=== PATIENT | male | born 1960 | race Caucasian/White ===

== ENCOUNTER 2022-10-10 14:58 | Outpatient (REF) | payer OTHER, SELFPAY ==
[2022-10-10 15:29] LABS: Microalbumin Urine Random <1.3 mg/dL (<=30.0)
== END 2022-10-10 14:59 | disposition home or self-care (01) ==
LOC: LAB 14:58
PROVIDERS: PCP Family Medicine; Visit Provider Family Medicine
DX: Z00.00 Encounter for general adult medical examination without abnormal findings (principal); E11.65 Type 2 diabetes mellitus with hyperglycemia
CPT/HCPCS: 82043

== ENCOUNTER 2022-10-11 07:06 | Outpatient (OUT) | payer OTHER, SELFPAY ==
[2022-10-11 07:28] LABS: Basophils Absolute Auto 0.1 10^3/uL (0.0-0.1); Basophils Percent Auto 1.1 % (0.2-2.0); Eosinophils Absolute Auto 0.2 10^3/uL (0.0-0.7); Eosinophils Percent Auto 2.8 % (0.9-7.0); Hematocrit 40.8 % (42.0-54.0); Hemoglobin 13.3 g/dL (14.0-18.0); Immature Granulocytes Abs Auto 0.01 10^3/uL (0.00-0.03); Immature Granulocytes Pct Auto 0.2 % (0.0-0.5); Lymphocytes Percent Auto 35.1 % (20.5-60.0); Mean Corpuscular HGB Conc 32.6 g/dL (29.9-35.2); Mean Corpuscular Hemoglobin 28.2 pg (25.9-34.0); Mean Corpuscular Volume 86.6 fL (80.0-94.0); Mean Platelet Volume 10.5 fL (9.5-13.5); Monocytes Absolute Auto 0.6 10^3/uL (0.3-0.8); Neutrophils Absolute Auto 2.8 10^3/uL (1.4-6.5); Neutrophils Percent Auto 49.8 % (43.0-75.0); Platelet Count 278 10^3/uL (150-450); Red Blood Count 4.71 10^6/uL (4.70-6.10); Red Cell Distribution Width 15.3 % (11.0-15.0); White Blood Count 5.6 10^3/uL (4.0-11.0)
[2022-10-11 08:43] LABS: Estimated Average Glucose 137 mg/dL; Glycohemoglobin A1C 6.4 % (4.5-6.2)
[2022-10-11 09:17] LABS: Alanine Aminotransferase 37 U/L (16-63); Albumin Globulin Ratio 1.1; Albumin Level 4.3 g/dL (3.4-5.0); Alkaline Phosphatase 77 U/L (46-116); Anion Gap 12.9; Aspartate Amino Transferase 25 U/L (15-37); BUN Creatinine Ratio 12.6; Bilirubin Direct 0.1 mg/dL (0.0-0.2); Bilirubin Total 0.3 mg/dL (0.2-1.0); Calcium 9.6 mg/dL (8.5-10.1); Chloride 103 mmol/L (98-107); Chol HDL Ratio 2.3; Cholesterol 129 mg/dL (<=200); Estimated GFR (African America >60 (>=60); Estimated GFR (Non-African Ame >60 (>=60); Glucose 89 mg/dL (74-106); HDL Cholesterol 55 mg/dL (40-60); LDL Cholesterol Calculated 65.2 mg/dL; Potassium 3.9 mmol/L (3.5-5.1); Sodium 140 mmol/L (136-145); Total Protein 8.3 g/dL (6.4-8.2); Triglycerides 44 mg/dL (<=150); VLDL CHOLESTEROL 8.8 mg/dL
== END 2022-10-11 07:07 | disposition home or self-care (01) ==
LOC: LAB 07:06
PROVIDERS: PCP Family Medicine; Visit Provider Family Medicine
DX: Z00.00 Encounter for general adult medical examination without abnormal findings (principal); Z12.5 Encounter for screening for malignant neoplasm of prostate; E11.65 Type 2 diabetes mellitus with hyperglycemia
CPT/HCPCS: 36415; 80048; 80061; 80076; 82043; 83036; 84443; 85025; G0103

== ENCOUNTER 2022-11-21 06:59 | Outpatient (OUT) | payer OTHER, SELFPAY ==
[2022-11-21 07:22] LABS: Basophils Absolute Auto 0.1 10^3/uL (0.0-0.1); Basophils Percent Auto 0.9 % (0.2-2.0); Eosinophils Absolute Auto 0.2 10^3/uL (0.0-0.7); Eosinophils Percent Auto 3.2 % (0.9-7.0); Hematocrit 39.2 % (42.0-54.0); Hemoglobin 12.8 g/dL (14.0-18.0); Immature Granulocytes Abs Auto 0.01 10^3/uL (0.00-0.03); Immature Granulocytes Pct Auto 0.2 % (0.0-0.5); Lymphocytes Absolute Auto 1.8 10^3/uL (1.2-3.8); Lymphocytes Percent Auto 34.1 % (20.5-60.0); Mean Corpuscular HGB Conc 32.7 g/dL (29.9-35.2); Mean Corpuscular Volume 88.9 fL (80.0-94.0); Mean Platelet Volume 10.8 fL (9.5-13.5); Monocytes Absolute Auto 0.6 10^3/uL (0.3-0.8); Neutrophils Absolute Auto 2.7 10^3/uL (1.4-6.5); Neutrophils Percent Auto 50.6 % (43.0-75.0); Platelet Count 284 10^3/uL (150-450); Red Blood Count 4.41 10^6/uL (4.70-6.10); White Blood Count 5.4 10^3/uL (4.0-11.0)
[2022-11-21 07:31] LABS: Erythrocyte Sedimentation Rate 15 mm/hr (<=20)
[2022-11-21 07:33] LABS: Alanine Aminotransferase 38 U/L (16-63); Albumin Globulin Ratio 1.1; Albumin Level 4.1 g/dL (3.4-5.0); Alkaline Phosphatase 95 U/L (46-116); Anion Gap 12.9; Aspartate Amino Transferase 22 U/L (15-37); BUN Creatinine Ratio 14.4; Bilirubin Total 0.3 mg/dL (0.2-1.0); Calcium 9.1 mg/dL (8.5-10.1); Carbon Dioxide 30.2 mmol/L (21.0-32.0); Chloride 101 mmol/L (98-107); Estimated GFR (African America >60 (>=60); Estimated GFR (Non-African Ame >60 (>=60); Globulin 3.8 g/dL; Glucose 136 mg/dL (74-106); Potassium 4.1 mmol/L (3.5-5.1); Sodium 140 mmol/L (136-145); Total Protein 7.9 g/dL (6.4-8.2)
== END 2022-11-21 07:00 | disposition home or self-care (01) ==
LOC: LAB 07:00
PROVIDERS: PCP Family Medicine; Visit Provider Internal Medicine Rheumatology
DX: L40.59 Other psoriatic arthropathy (principal); Z79.899 Other long term (current) drug therapy
CPT/HCPCS: 36415; 80053; 85025; 85652

== ENCOUNTER 2023-01-06 10:37 | Emergency (ER) | payer OTHER, SELFPAY ==
[2023-01-06 10:41] VITALS: BP 174/94; PULSE 75; RESP 16; TEMP 36.5; O2SAT 96; BMI 296.4
[2023-01-06] MEDS: ONDANSETRON 4 MG RAPDIS TABLET SL (11:16)
[2023-01-06] MEDS: HYDROMORPHONE HCL 2 MG/ML VIAL IM (11:16)
--- NOTE | 2023-01-06 11:32 | ED_ITS ---
HPI - Back Pain/Injury General Chief Complaint: Back Pain/Injury Stated Complaint: LOWER EXTREMITY PAIN BOTH LEGS Time Seen by Provider: 01/06/23 10:56 Source: patient Mode of arrival: walk-in Limitations: no limitations Related Data Home Medications Medication Instructions Recorded Confirmed folic acid 1 mg tablet 1 mg PO DAILY 01/06/23 01/06/23 glipizide 10 mg tablet 10 mg PO BID 01/06/23 01/06/23 leflunomide 20 mg tablet 20 mg PO DAILY 01/06/23 01/06/23 metformin 1,000 mg tablet 1,000 mg PO BID 01/06/23 01/06/23 methotrexate sodium 2.5 mg tablet 3 mg PO .every week 01/06/23 01/06/23 oxycodone-acetaminophen 5 mg-325 1 tab PO QID PRN pain 01/06/23 01/06/23 mg tablet pioglitazone 45 mg tablet 45 mg PO DAILY 01/06/23 01/06/23 Allergies Allergy/AdvReac Type Severity Reaction Status Date / Time No Known Drug Allergies Allergy Verified 01/06/23 10:45 PFSH PFSH Social History Smoking status: Never smoker Exam Constitutional Vital Signs, click to edit/add: Last Vital Signs Temp 97.7 F 01/06/23 10:41 Pulse 75 01/06/23 10:41 Resp 16 01/06/23 10:41 BP 174/94 H 01/06/23 10:41 Pulse Ox 96 01/06/23 10:41 O2 Del Method Room Air 01/06/23 10:41 Course Vital Signs Vital signs: Vital Signs Temperature 97.7 F 01/06/23 10:41 Pulse Rate 75 01/06/23 10:41 Respiratory Rate 16 01/06/23 10:41 Blood Pressure 174/94 H 01/06/23 10:41 Pulse Oximetry 96 01/06/23 10:41 Oxygen Delivery Method Room Air 01/06/23 10:41 Temperature 97.7 F 01/06/23 10:41 Pulse Rate 75 01/06/23 10:41 Respiratory Rate 16 01/06/23 10:41 Blood Pressure 174/94 H 01/06/23 10:41 Pulse Oximetry 96 01/06/23 10:41 Oxygen Delivery Method Room Air 01/06/23 10:41 Discharge Plan Discharge Chief Complaint: Back Pain/Injury Clinical Impression: Strain of lumbar region Patient Disposition: Home, Self-Care Time of Disposition Decision: 11:33 Prescriptions / Home Meds: No Action folic acid 1 mg tablet 1 mg PO DAILY glipizide 10 mg tablet 10 mg PO BID metformin 1,000 mg tablet 1,000 mg PO BID methotrexate sodium 2.5 mg tablet 3 mg PO .every week oxycodone-acetaminophen 5-325 mg tablet 1 tab PO QID PRN (Reason: pain) pioglitazone 45 mg tablet 45 mg PO DAILY leflunomide 20 mg tablet 20 mg PO DAILY Additional Instructions: [place]/Robaxin/alternate warm compresses/see pain management doctor Sunday Stand Alone Forms: Portal Instructions Referrals: Major Garcia MD [Primary Care Provider] - 1 week
[2023-01-06 11:52] LABS: Glucometer 178 mg/dL (74-106)
[2023-01-06 11:54] VITALS: BP 150/82; PULSE 74; RESP 16; O2SAT 95
[2023-01-06 12:32] VITALS: BP 160/82; PULSE 68; RESP 18; O2SAT 98
== END 2023-01-06 12:33 | disposition home or self-care (01) ==
PROVIDERS: Emergency Provider Emergency Medicine Emergency Medical Services; PCP Family Medicine
DX: S39.012A Strain of muscle, fascia and tendon of lower back, initial encounter (principal); Z79.899 Other long term (current) drug therapy; Z79.84 Long term (current) use of oral hypoglycemic drugs; X58.XXXA Exposure to other specified factors, initial encounter
CPT/HCPCS: 36415; 36416; 82948; 96372; 99284; J1170

== ENCOUNTER 2023-03-08 11:07 | Outpatient (OUT) | payer OTHER, SELFPAY ==
[2023-03-08 11:40] LABS: Estimated Average Glucose 189 mg/dL; Glycohemoglobin A1C 8.2 % (4.5-6.2)
== END 2023-03-08 11:08 | disposition home or self-care (01) ==
LOC: LAB 11:09
PROVIDERS: PCP Family Medicine; Visit Provider Family Medicine
DX: E11.65 Type 2 diabetes mellitus with hyperglycemia (principal)
CPT/HCPCS: 36415; 83036

== ENCOUNTER 2023-03-08 11:13 | Outpatient (OUT) | payer OTHER, SELFPAY ==
[2023-03-08 11:30] LABS: Basophils Percent Auto 0.7 % (0.2-2.0); Eosinophils Absolute Auto 0.1 10^3/uL (0.0-0.7); Eosinophils Percent Auto 2.1 % (0.9-7.0); Hematocrit 40.9 % (42.0-54.0); Hemoglobin 13.2 g/dL (14.0-18.0); Immature Granulocytes Abs Auto 0.02 10^3/uL (0.00-0.03); Immature Granulocytes Pct Auto 0.4 % (0.0-0.5); Lymphocytes Absolute Auto 1.5 10^3/uL (1.2-3.8); Lymphocytes Percent Auto 26.7 % (20.5-60.0); Mean Corpuscular HGB Conc 32.3 g/dL (29.9-35.2); Mean Corpuscular Hemoglobin 28.8 pg (25.9-34.0); Mean Corpuscular Volume 89.3 fL (80.0-94.0); Mean Platelet Volume 10.3 fL (9.5-13.5); Monocytes Absolute Auto 0.6 10^3/uL (0.3-0.8); Neutrophils Absolute Auto 3.4 10^3/uL (1.4-6.5); Neutrophils Percent Auto 60.1 % (43.0-75.0); Platelet Count 293 10^3/uL (150-450); Red Blood Count 4.58 10^6/uL (4.70-6.10); Red Cell Distribution Width 14.6 % (11.0-15.0); White Blood Count 5.7 10^3/uL (4.0-11.0)
[2023-03-08 11:48] LABS: Erythrocyte Sedimentation Rate 33 mm/hr (<=20)
[2023-03-08 11:53] LABS: Alanine Aminotransferase 73 U/L (16-63); Albumin Globulin Ratio 0.9; Albumin Level 3.6 g/dL (3.4-5.0); Alkaline Phosphatase 78 U/L (46-116); Anion Gap 8.9; Aspartate Amino Transferase 27 U/L (15-37); BUN Creatinine Ratio 15.4; Bilirubin Total 0.4 mg/dL (0.2-1.0); Calcium 9.1 mg/dL (8.5-10.1); Carbon Dioxide 30.7 mmol/L (21.0-32.0); Chloride 103 mmol/L (98-107); Estimated GFR (African America >60 (>=60); Estimated GFR (Non-African Ame >60 (>=60); Globulin 3.8 g/dL; Glucose 167 mg/dL (74-106); Potassium 3.6 mmol/L (3.5-5.1); Sodium 139 mmol/L (136-145); Total Protein 7.4 g/dL (6.4-8.2)
== END 2023-03-08 11:14 | disposition home or self-care (01) ==
PROVIDERS: PCP Family Medicine; Visit Provider Internal Medicine Rheumatology
DX: E11.65 Type 2 diabetes mellitus with hyperglycemia (principal); L40.59 Other psoriatic arthropathy; Z79.899 Other long term (current) drug therapy
CPT/HCPCS: 36415; 80053; 83036; 85025; 85652

== ENCOUNTER 2023-07-12 09:23 | Outpatient (OUT) | payer OTHER, SELFPAY ==
[2023-07-12 09:52] LABS: Basophils Absolute Auto 0.1 10^3/uL (0.0-0.1); Basophils Percent Auto 0.7 % (0.2-2.0); Eosinophils Absolute Auto 0.2 10^3/uL (0.0-0.7); Eosinophils Percent Auto 2.8 % (0.9-7.0); Hematocrit 41.5 % (42.0-54.0); Hemoglobin 12.8 g/dL (14.0-18.0); Immature Granulocytes Abs Auto 0.02 10^3/uL (0.00-0.03); Immature Granulocytes Pct Auto 0.3 % (0.0-0.5); Lymphocytes Absolute Auto 1.9 10^3/uL (1.2-3.8); Lymphocytes Percent Auto 28.2 % (20.5-60.0); Mean Corpuscular HGB Conc 30.8 g/dL (29.9-35.2); Mean Corpuscular Hemoglobin 27.2 pg (25.9-34.0); Mean Corpuscular Volume 88.3 fL (80.0-94.0); Mean Platelet Volume 10.3 fL (9.5-13.5); Monocytes Absolute Auto 0.6 10^3/uL (0.3-0.8); Monocytes Percent Auto 9.2 % (1.7-12.0); Neutrophils Percent Auto 58.8 % (43.0-75.0); Platelet Count 345 10^3/uL (150-450); Red Cell Distribution Width 14.4 % (11.0-15.0); White Blood Count 6.9 10^3/uL (4.0-11.0)
[2023-07-12 10:02] LABS: Erythrocyte Sedimentation Rate 60 mm/hr (<=20)
[2023-07-12 10:26] LABS: Alanine Aminotransferase 35 U/L (16-63); Albumin Globulin Ratio 0.8; Albumin Level 3.5 g/dL (3.4-5.0); Alkaline Phosphatase 90 U/L (46-116); Anion Gap 13.8; Aspartate Amino Transferase 23 U/L (15-37); BUN Creatinine Ratio 13.4; Bilirubin Total 0.2 mg/dL (0.2-1.0); Calcium 9.6 mg/dL (8.5-10.1); Chloride 104 mmol/L (98-107); Estimated GFR (African America >60 (>=60); Estimated GFR (Non-African Ame >60 (>=60); Globulin 4.2 g/dL; Glucose 136 mg/dL (74-106); Potassium 3.8 mmol/L (3.5-5.1); Sodium 140 mmol/L (136-145); Total Protein 7.7 g/dL (6.4-8.2)
== END 2023-07-12 09:24 | disposition home or self-care (01) ==
LOC: LAB 09:24
PROVIDERS: PCP Family Medicine; Visit Provider Internal Medicine Rheumatology
DX: L40.59 Other psoriatic arthropathy (principal); Z79.899 Other long term (current) drug therapy
CPT/HCPCS: 36415; 80053; 85025; 85652

== ENCOUNTER 2023-10-18 07:01 | Outpatient (OUT) | payer OTHER, SELFPAY ==
[2023-10-18 07:35] LABS: Basophils Absolute Auto 0.1 10^3/uL (0.0-0.1); Eosinophils Absolute Auto 0.2 10^3/uL (0.0-0.7); Eosinophils Percent Auto 2.9 % (0.9-7.0); Hematocrit 39.5 % (42.0-54.0); Hemoglobin 12.5 g/dL (14.0-18.0); Immature Granulocytes Abs Auto 0.02 10^3/uL (0.00-0.03); Immature Granulocytes Pct Auto 0.3 % (0.0-0.5); Lymphocytes Absolute Auto 1.6 10^3/uL (1.2-3.8); Lymphocytes Percent Auto 22.6 % (20.5-60.0); Mean Corpuscular HGB Conc 31.6 g/dL (29.9-35.2); Mean Corpuscular Hemoglobin 26.5 pg (25.9-34.0); Mean Corpuscular Volume 83.9 fL (80.0-94.0); Mean Platelet Volume 10.5 fL (9.5-13.5); Monocytes Absolute Auto 0.8 10^3/uL (0.3-0.8); Monocytes Percent Auto 10.6 % (1.7-12.0); Neutrophils Absolute Auto 4.6 10^3/uL (1.4-6.5); Neutrophils Percent Auto 62.6 % (43.0-75.0); Platelet Count 288 10^3/uL (150-450); Red Blood Count 4.71 10^6/uL (4.70-6.10); Red Cell Distribution Width 16.7 % (11.0-15.0); White Blood Count 7.3 10^3/uL (4.0-11.0)
[2023-10-18 08:45] LABS: Estimated Average Glucose 134 mg/dL; Glycohemoglobin A1C 6.3 % (4.5-6.2)
[2023-10-18 10:24] LABS: Alanine Aminotransferase 37 U/L (16-63); Albumin Level 3.8 g/dL (3.4-5.0); Alkaline Phosphatase 89 U/L (46-116); Anion Gap 13.2; Aspartate Amino Transferase 26 U/L (15-37); BUN Creatinine Ratio 14.5; Bilirubin Direct 0.1 mg/dL (0.0-0.2); Bilirubin Total 0.4 mg/dL (0.2-1.0); Calcium 9.2 mg/dL (8.5-10.1); Carbon Dioxide 26.2 mmol/L (21.0-32.0); Chloride 103 mmol/L (98-107); Chol HDL Ratio 2.1; Cholesterol 114 mg/dL (<=200); Estimated GFR (African America >60 (>=60); Estimated GFR (Non-African Ame >60 (>=60); Globulin 3.9 g/dL; Glucose 90 mg/dL (74-106); HDL Cholesterol 54 mg/dL (40-60); LDL Cholesterol Calculated 51.6 mg/dL; Potassium 3.4 mmol/L (3.5-5.1); Sodium 139 mmol/L (136-145); Thyroid Stimulating Hormone 0.931 uIU/mL (0.358-3.740); Total Protein 7.7 g/dL (6.4-8.2); Triglycerides 42 mg/dL (<=150); VLDL CHOLESTEROL 8.4 mg/dL
[2023-10-18 10:44] LABS: Microalbumin Urine Random <1.3 mg/dL (<=30.0)
[2023-10-18 10:55] LABS: Prostate Specific Antigen Scrn 0.57 ng/mL (<=4.00)
== END 2023-10-18 07:02 | disposition home or self-care (01) ==
LOC: LAB 07:02
PROVIDERS: PCP Family Medicine; Visit Provider Family Medicine
DX: Z79.899 Other long term (current) drug therapy (principal); E66.9 Obesity, unspecified; E11.65 Type 2 diabetes mellitus with hyperglycemia; Z12.5 Encounter for screening for malignant neoplasm of prostate
CPT/HCPCS: 36415; 80048; 80061; 80076; 82043; 83036; 84443; 85025; G0103

== ENCOUNTER 2023-11-14 07:02 | Outpatient (OUT) | payer OTHER, SELFPAY ==
--- OUTSIDE RECORDS SUMMARY | 2023-11-14 07:07 | XMS_ITS | CCD ---
Author Organization [facility] CliniSynh Care Team Providers Care Applied Exercise Physiologist Name Role Phone VALERIE, DR RANDALL Attending Unavailable NADERER, DR MAJOR Martinez Primary Care Unavailable PADILLA, DR RANDALL Consulting Unavailable PADILLA, DR RANDALL Admitting Unavailable PADILLA, DR RANDALL Attending Unavailable NADERER, DR MAJOR Martinez Primary Care Unavailable PADILLA, DR RANDALL Admitting Unavailable PADILLA, DR RANDALL Consulting Unavailable PADILLA, DR RANDALL Consulting Unavailable PADILLA, DR RANDALL Admitting Unavailable NADERER, DR MAJOR Martinez Primary Care Unavailable PADILLA, DR RANDALL Attending Unavailable NADERER, DR MAJOR Martinez Admitting Unavailable NADERER, DR MAJOR Martinez Attending Unavailable NADERER, DR MAJOR Martinez Consulting Unavailable NADERER, DR MAJOR Martinez Primary Care Unavailable PADILLA, DR RANDALL Attending Unavailable PADILLA, DR RANDALL Consulting Unavailable PADILLA, DR RANDALL Admitting Unavailable NADERER, DR MAJOR Martinez Primary Care Unavailable NADERER, DR MAJOR Martinez Admitting Unavailable NADERER, DR MAJOR Martinez Attending Unavailable NADERER, DR MAJOR Martinez Consulting Unavailable NADERER, DR MAJOR Martinez Primary Care Unavailable Abel Sandoval Unavailable MD Major Stevens Primary Care Provider WAI Barney Sully Attending Provider [phone] MD Abel Sandoval Attending Provider MD Major Stevens Primary Care Provider [facility] [employer] DEVELOPER Sully Attending Provider [phone] MD Abel Sandoval Attending Provider Abel Sandoval Admitting Unavailable Abel Sandoval Attending Unavailable Major Stevens Primary Care Unavailable Barney, Sully Admitting Unavailable Barney, Sully Attending Unavailable Major Stevens Primary Care Unavailable Lori, Abel S Admitting Unavailable Lori, Abel S Attending Unavailable Major Stevens Primary Care Unavailable Lori, Abel S Admitting Unavailable Lori, Abel S Attending Unavailable Major Stevens Primary Care Unavailable CatNatty Unavailable Unavailable Primary Care Provider Unavailabl e Unavailable Primary Care Provider Unavailabl Major Corrales MD Primary Care Provider PHYSICIAN, NONE Attending Unavailable PHYSICIAN, NONE Primary Care Unavailable PHYSICIAN, NONE Attending Unavailable PHYSICIAN, NONE Primary Care Unavailable KASLIWAL, ISHA K Admitting Unavailable KASLIWAL, ISHA K Attending Unavailable NADERERMAJOR Primary Care Unavailabl e KASLIWAL, IHSA K Referring Unavailable NADERER, MAJOR AVERY Primary Care Unavailabl e ALMADHYANI, LAMA Referring Unavailable NADERER, MAJOR AVERY Primary Care Unavailabl e KASLIWAL, ISHA K Attending Unavailable KASLIWAL, ISHA K Referring Unavailable KASLIWAL, ISHA K Attending Unavailable NADEREMAJOR Baldwin Primary Care Unavailabl e KASLIWAL, ISHA K Referring Unavailable NADERER, MAJOR AVERY Primary Care Unavailabl e KASLIWAL, ISHA K Attending Unavailable NADERERMAJOR Primary Care Unavailabl e KASLIWAL, ISHA K Referring Unavailable NADERER, MAJOR AVERY Primary Care Unavailabl e NADERER, MAJOR Attending Unavailable NADERER, MAJOR Attending Unavailable BLACKSTONIVETTE Attending Unavailable KASLIWAL, ISHA Referring Unavailable BRINK, BRITNEY Attending Unavailable KASLIWAL, ISHA Referring Unavailable BRINK, BRITNEY Attending Unavailable KASLIWAL, ISHA Referring Unavailable BLACKSTON, IVETTE T Attending Unavailable KASLIWAL, ISHA Referring Unavailable NADERER, MAJOR Attending Unavailable BRINK, BRITNEY Attending Unavailable KASLIWAL, ISHA Referring Unavailable BLACKSTON, IVETTE T Attending Unavailable KASLIWAL, ISHA Referring Unavailable BRINK, BRITNEY Attending Unavailable KASLIWAL, ISHA Referring Unavailable BRINK, BRITNEY Attending Unavailable KASLIWAL, ISHA Referring Unavailable BLACKSTON, IVETTE T Attending Unavailable KASLIWAL, ISHA Referring Unavailable NADERER, MAJOR Attending Unavailable Medications Current Medications Medication Drug Class(es) Dates Sig (Normalized) Sig (Original) acetaminophen 325 mg oral tablet (6 sources) Start: 06-06-2023 acetaminophen (Tylenol) 325 mg tablet Indications: Postoperative pain Take 2 tablets (650 mg) by mouth every 6 hours. Take every 6 hours scheduled while having pain then take only as needed for Mild pain 06/06/2023 Active Start: 06-01-2023 take 1 tablet by gina th every six hours 650 mg, oral, Every 6 hours, First dose on Sun06/01/23 at 2000, Phase II/On Unit If ordered PRN for pain, nurse is permitted to administer this medication for higher pain scores based on patient preference? Yes End: 06-06-2023 take 2 tablets by mouth twice daily acetaminophen (Tylenol) 500 mg tablet Take 2 tablets (1,000 mg) by mouth 2 times a day. Patient takes #2 tablets 2-3 times a day as needed 0 06/06/2023 Discontinued (Stop Taking at Discharge) benzocaine 15 mg / menthol 3.6 mg oral lozenge (1 source) Standardized Chemical Allergen Start: 06-01-2023 1 lozenge, Mouth/Throat, Every 2 hour PRN, sore throat, Starting on Sun06/01/23 at 1932, Phase II/On Unit bisacodyl 10 mg rectal suppository (1 source) Stimulant Laxative Start: 06-04-2023 bisacodyl ( Dulcolax) suppository 10 mg chlorhexidine gluconate 40 mg/ml medicated liquid soap (5 sources) Start: 05-17-2023 End: 05-22-2023 chlorhexidine (Hibiclens) 4 % external liquid Indications: Lumbar stenosis with neurogenic claudication , Surgery, elective , Preop testing , Preoperative general physical examination Apply topically once daily as needed for wound care for up to 5 days. 473 mL 0 05/17/2023 05/22/2023 Active Start: 05-17-2023 End: 06-06-2023 chlorhexidine (Peridex) 0.12 % solution Indications: Lumbar stenosis with neurogenic claudication , Surgery, elective , Preop testing , Preoperative general physical examination Use 15 mL in the mouth or throat if needed for wound care for up to 14 days. 120 mL 0 05/17/2023 06/06/2023 Discontinued (Stop Taking at Discharge) cholecalciferol 0.025 mg oral capsule (2 sources) Vitamin D Start: 11-12-2018 take 1 tablet by mouth once daily Cholecalciferol (Vitamin D3) (Vitamin D3) 1,000 unit Capsule Active 1 TAB PO Daily November 11, 2018 11:00pm cyclobenzaprine hydrochloride 10 mg oral tablet (3 sources) Muscle Relaxant Start: 06-01-2023 End: 06-13-2023 take 1 tablet by mouth three times daily as needed for muscle spasms cyclobenzaprine (Flexeril) 10 mg tablet Indications: Postoperative pain Take 1 tablet (10 mg) by mouth 3 times a day as needed for muscle spasms for up to 7 days. 21 tablet 06/06/2023 Active docusate sodium 50 mg / sennosides, mcfp 8.6 mg oral tablet (2 sources) Start: 06-01-2023 End: 06-13-2023 take 2 tablets by mouth twice daily sennosides-docusate sodium (Marycruz-Colace) 8.6-50 mg tablet Indications: Constipation due to pain medication Take 2 tablets by mouth 2 times a day for 7 days. Take while taking pain medication oxycodone to prevent constipation 28 tablet 0 06/06/2023 06/13/2023 Active empagliflozin 25 mg oral tablet (7 sources) Sodium-Glucose Cotransporter 2 Inhibitor take 1 tablet by mouth once daily empagliflozin (Jardiance) 25 mg Take 1 tablet (25 mg) by mouth once daily. Active folic acid 1 mg oral tablet (7 sources) take 1 tablet by mouth once daily folic acid (Folvite) 1 mg tablet Take 1 tablet (1 mg) by mouth once daily. Active gabapentin 300 mg oral capsule (15 sources) Anti-epileptic Agent Start: 03-28-2023 take 1 capsule by mouth every twenty-four hours Gabapentin 300 MG 1 capsule Orally Once a day for 30 days Mar, Active Start: 11-12-2018 End: 05-31-2023 take 1 tablet by mouth three times daily Gabapentin Active 1 TAB PO Three times daily November 11, 2018 11:00pm glipiZIDE 10 mg oral tablet (16 sources) Sulfonylurea Start: 11-12-2018 take 1 tablet by mouth once daily Glipizide Active 1 TAB PO Daily November 11, 2018 11:00pm take 1 tablet by gina twice daily before mealtime glipiZIDE (Glucotrol) 10 mg tablet Take 1 tablet (10 mg) by mouth 2 times a day before meals. Active glucagon (rdna) 1 mg injection (2 sources) Antihypoglycemic Agent Start: 06-01-2023 1 mg, i ntramuscular, Every 15 min PRN, low blood sugar - see comments, For blood glucose less than or equal to 70 mg/dL and no IV access, Starting on Sun06/01/23 at 1932, Phase II/On Unit Give until blood glucose is 100 mg/dL or greater. If patient DOES NOT HAVE secure IV access & patient is unconscious, NPO or is unable to eat or drink. 50 ml glucose 500 mg/ml prefilled syringe (4 sources) Start: 06-01-2023 25 g, intraven ous, Every 15 min PRN, For blood glucose less than or equal to 40 mg/dL, Starting on Sun06/01/23 at 1932, Phase II/On Unit May repeat until blood glucose level reaches 100 mg/dL or greater. Push 2 - 3 mL/minute if patient has secure IV access. Start: 06-01-2023 0.3 g/kg/hr 95 .4 kg (286.2 mL/hr), intravenous, Once as needed, For blood glucose less than 70 mg/dL after 30 minutes of intervention. Discontinue once blood glucose reaches 100 mg/dL., Starting on Sun06/01/23 at 1932, For 1 dose, Phase II/On Unit Discontinue once blood glucose reaches 100 mg/dL. 1 ml heparin sodium, porcine 5000 unt/ml injection (1 source) Unfractionated Heparin, Anti-coagulant Start: 06-02-2023 inject 5000 [IU] by subcutaneous injection every eight hours 5,000 Units, subcutaneous, Every 8 hours, First dose on Sun06/02/23 at 0000, Phase II/On Unit ibuprofen 800 mg oral tablet (9 sources) Nonsteroidal Anti-inflammatory Drug Start: 11-12-2018 take 1 tablet by mouth three times daily Ibuprofen Active 1 TAB PO Three times daily November 11, 2018 11:00pm insulin lispro 100 unt/ml injectable solution (1 source) Insulin Analog Start: 06-02-2023 0-5 Units, subcutaneous, 3 times daily with meals, First dose on Sun06/02/23 at 0800, Phase II/On Unit Insulin Lispro Corrective Scale #1 Hypogl ycemia protocol Call LIP unit(s) if Blood Glucose is between 0 - 70 mg/dL 0 unit(s) if Blood glucose is between 71-150 1 unit(s) if Blood glucose is between 151-200 2 unit(s) if Blood glucose is between 201-250 3 unit(s) if Blood glucose is between 251-300 4 unit(s) if Blood glucose is between 301-350 5 unit(s) if Blood glucose is between 351-400 &nbsp ;Notify provider unit(s) if Blood Glucose is greater than 400 mg/dL leflunomide 20 mg oral tablet (17 sources) Antirheumatic Agent Start: 06-15-2023 take 1 tablet by mouth once daily leflunomide (Arava) 20 mg tablet Indications: Psoriatic arthritis (Multi) Take 1 tablet (20 mg) by mouth once daily. DO NOT RESUME UNTIL 06/15/2023 Do not start before June 15, 2023. 06/15/2023 Active Start: 06-15-2023 take 1 tablet by gina th once daily leflunomide (Arava) 20 mg tablet Indications: Psoriatic arthritis (CMS/HCC) Take 1 tablet (20 mg) by mouth once daily. DO NOT RESUME UNTIL 06/15/2023 Do not start before June 15, 2023. 0 06/15/2023 Active Start: 11-12-2018 End: 06-06-2023 take 1 tablet by mouth once daily Leflunomide Active 1 TAB PO Daily November 11, 2018 11:00pm lidocaine 0.04 mg/mg medicated patch (2 sources) Antiarrhythmic, Amide Local Anesthetic Start: 06-07-2023 End: 06-14-2023 apply 1 dose transdermal route every twelve hours at bedtime lidocaine 4 % patch Indications: Postoperative pain Place 1 patch over 12 hours on the skin once daily for 7 days. Apply 1 patch to low back Daily for 12 hours, on in morning, off at bedtime. Do Not Place Directly Over Incision Do not start before June 07, 2023. 7 patch 0 06/07/2023 06/14/2023 Active Start: 06-01-2023 apply 1 dose transde rmal route once daily 1 patch, transdermal, Administer over 12 Hours, Daily, First dose on Sun06/01/23 at 2000, Phase II/On Unit Apply to low back. Patch will remain on for 12 hours, then removed for [address] patch directly over any surgical incisions or wounds. metFORMIN hydrochloride 1000 mg oral tablet (16 sources) Biguanide Start: 11-12-2018 take 1 tablet by mouth once daily Metformin Active 1 TAB PO Daily November 11, 2018 11:00pm take 1 tablet by mouth twice giulia ly metFORMIN (Glucophage) 1,000 mg tablet Take 1 tablet (1,000 mg) by mouth 2 times daily (morning and late afternoon). Active methotrexate 2.5 mg oral tablet (19 sources) Folate Analog Metabolic Inhibitor Start: 06-15-2023 take 3 tablets by mouth every week methotrexate (Trexall) 2.5 mg tablet Indications: Psoriatic arthritis (Multi) Take 3 tablets (7.5 mg total) by mouth 1 (one) time per week. Follow directions carefully, and ask to explain any part you do not understand. Take exactly as directed. Takes on Sunday. DO NOT RESUME UNTIL 06/15/2023 06/15/2023 Active Start: 06-15-2023 take 3 tablets by mo uth every week methotrexate (Trexall) 2.5 mg tablet Indications: Psoriatic arthritis (CMS/HCC) Take 3 tablets (7.5 mg total) by mouth 1 (one) time per week. Follow directions carefully, and ask to explain any part you do not understand. Take exactly as directed. Takes on Sunday. DO NOT RESUME UNTIL 06/15/2023 0 06/15/2023 Active Start: 11-12-2018 End: 05-22-2019 take 2.5 mg by mouth once daily Methotrexate Sodium Ac tive 2.5 MG PO Daily May 22, 2019 12:00am End: 06-06-2023 take 3 tablets by mouth every week methotrexate (Trexall) 2.5 mg tablet Take 3 tablets (7.5 mg total) by mouth 1 (one) time per week. Follow directions carefully, and ask to explain any part you do not understand. Take exactly as directed. Takes on sunday 0 06/06/2023 Discontinued (Reorder) methotrexate (Tr exall) 2.5 mg tablet Take by mouth 1 (one) time per week. Follow directions carefully, and ask to explain any part you do not understand. Take exactly as directed. 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 immediately Start: 06-01-2023 0.2 mg, intrav enous, Every 5 min PRN, respiratory depression, Starting on Sun06/01/23 at 1932, Phase II/On Unit If respiratory rate is less than 8 breaths/minute or patient is difficult to arouse stop any narcotics and contact physician. Administer slow IV push. Repeat as ordered until patient's respiratory rate is greater than 12 breaths/minute. Ondansetron (1 source) Serotonin-3 Receptor Antagonist Start: 06-01-2023 take 1 tablet by mouth every eight hours as needed ondansetron (Zofran) tablet 4 mg oxygen (O2) therapy (2 sources) Start: 06-01-2023 inhalation, Continuous PRN - O2/gases, other, Starting on Sun06/01/23 at 1932, Phase II/On Unit Titrate supplemental oxygen to maintain SpO2 greater than or equal to 92 Device: Nasal Cannula Rate in liters per minute: 2 LPM Keep O2 Sat Above: 92% Start: 06-01-2023 End: 06-01-2023 oxygen (O2) therapy pioglitazone 30 mg oral tablet (16 sources) Peroxisome Proliferator Receptor alpha Agonist, Peroxisome Proliferator Receptor gamma Agonist, Thiazolidinedione Start: 11-12-2018 take 1 tablet by mouth once daily Pioglitazone Active 1 TAB PO Daily November 11, 2018 11:00pm take 1 tablet by mouth once jaime y pioglitazone (Actos) 45 mg tablet Take 1 tablet (45 mg) by mouth once daily. Active polyethylene glycol 3350 44849 mg powder for oral solution (2 sources) Osmotic Laxative Start: 06-01-2023 End: 06-04-2023 polyethylene glycol (Glycolax, Miralax) packet 17 g Promethazine (1 source) Phenothiazine Start: 06-01-2023 take 1 tablet by mouth every six hours as needed promethazine (Phenergan) tablet 25 mg 1000 ml sodium chloride 9 mg/ml injection (1 source) Start: 06-01-2023 take 100 mL intravenously every hour 100 mL/hr, intravenous, Continuous, Starting on Sun06/01/23 at 2000, Phase II/On Unit Convert IV to saline lock when taking oral fluids. Vitamin D3 (7 sources) Vitamin D3 Activ e Completed/Discontinued Medications Medication Drug Class(es) Dates Sig (Normalized) Sig (Original) calcium chloride 0.0014 meq/ml / potassium chloride 0.004 meq/ml / sodium chloride 0.103 meq/ml / sodium lactate 0.028 meq/ml injectable solution (1 source) Start: 06-01-2023 End: 06-01-2023 lactated Ringer's infusion 1 ml HYDROmorphone hydrochloride 1 mg/ml cartridge (1 source) Opioid Agonist Start: 06-01-2023 End: 06-01-2023 HYDROmorphone (Dilaudid) injection 0.5 mg hydromorphone [employer] 0.5 mg/mL in NS opioid naive (1 source) Start: 06-01-2023 End: 06-02-2023 Nurse Loading Dose: Not Ordered Patient Bolus Dose: 0.2 mg Lockout Interval: 10 Minutes Basal Rate: 0 mg/hr One Hour Dose Limit: 1.2 mg intravenous, Continuous, Starting on Sun06/01/23 at 2000, Phase II/On Unit 1 ml ketorolac tromethamine 30 mg/ml injection (1 source) Nonsteroidal Anti-inflammatory Drug, Cyclooxygenase Inhibitor Start: 06-02-2023 End: 06-04-2023 30 mg, intravenous, Every 8 hours scheduled, First dose on Sun06/02/23 at 0600, For 3 days Do not administer within 6 hours of other NSAIDs (such as ibuprofen or naproxen). oxyCODONE hydrochloride 5 mg oral tablet (3 sources) Opioid Agonist Start: 06-02-2023 End: 06-05-2023 take 1 tablet by mouth every four hours as needed oxyCODONE (Roxicodone) immediate release tablet 10 mg Start: 06-02-2023 End: 06-13-2023 take 1 tablet by mouth every six hours for pain oxyCODONE (Roxicodone) 5 mg immediate release tablet Indications: Postoperative pain Take 1 tablet (5 mg) by mouth every 6 hours if needed for moderate pain (4 - 6) or severe pain (7 - 10) for up to 7 days. ICD 10: G89.18 28 tablet 0 06/06/2023 06/13/2023 Active microencapsulated potassium chloride 20 meq extended release oral tablet (3 sources) Start: 06-06-2023 End: 06-06-2023 potassium chloride CR (Klor-Con M20) ER tablet 40 mEq Start: 06-02-2023 End: 06-02-2023 potassium chloride CR (Klor- Con M20) ER tablet 40 mEq Start: 06-01-2023 End: 06-01-2023 potassium chloride 20 mEq in 100 mL IV premix tiZANidine 4 mg oral tablet (9 sources) Central alpha-2 Adrenergic Agonist Start: 11-12-2018 End: 02-07-2023 take 4 mg by mouth once daily at bedtime Tizanidine Discontinued 4 MG PO Daily at bedtime November 11, 2018 11:00pm February 07, 2023 8:47am take 1 tablet by gina th every eight hours tiZANidine HCl 4 MG 1 tablet as needed O rally Three times a day Not-Taking/PRN Triamcinolone (7 sources) Corticosteroid Start: 12-02-2019 Kenalog -40 mg Nov, 40 mg Problems Active Problems Problem Classification Problem Date Documented Da te Episodic/Chronic Diabetes mellitus with complications (20 sources) Type 2 diabetes mellitus with hyperglycemia; 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: [Diabetic - poor control] Onset: 09-15-2021 Chronic Diabetes mellitus without complication (7 sources) Type 2 diabetes mellitus; 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: [Type 2 diabetes mellitus without complications] Chronic Essential hypertension (13 sources) Essential hypertension; 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: [Essential (primary) hypertension] Onset: 03-07-2023 04-30-2023 Chronic Other acquired deformities (2 sources) Scoliosis of lumbar spine; 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: [Other forms of scoliosis, lumbar region] Chronic Other acquired deformities (1 source) Other forms of scoliosis, lumbar region Chronic Other acquired deformities (8 sources) Acquired deformity of spine; 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: [Other specified deforming dorsopathies, site unspecified] Onset: 04-24-2023 04-27-2023 Chronic Other acquired deformities (13 sources) Other secondary scoliosis, thoracolumbar region; 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: [Scoliosis associated with other conditions] Onset: 04-24-2023 04-27-2023 Chronic Other acquired deformities (4 sources) Other specified deforming dorsopathies, site unspecified; 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: [Other specified deforming dorsopathies, site unspecified] Onset: 04-24-2023 Chronic Other aftercare (1 source) 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 treater 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; 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: [OTH LONGTERM CURRENT DRUG THERAPY] Onset: 07-22-2022 Episodic Other aftercare (1 source) Surgical follow-up; 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: [Encounter for follow-up examination after completed treatment for conditions other than malignant neoplasm] 08-14-2023 Episodic Other bone disease and musculoskeletal deformities (7 sources) Other specified disorders of bone, other site; 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: [Iliac crest bone pain] Episodic Other connective tissue disease (1 source) History of lumbar fusion; 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: [Arthrodesis status] 08-14-2023 Episodic Other gastrointestinal disorders (1 source) Drug-induced constipation; 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: [Drug induced constipation] 06-06-2023 Episodic Other inflammatory condition of skin (4 sources) Other psoriatic arthropathy; 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: [OTHER PSORIATIC ARTHROPATHY] Onset: 07-19-2022 Chronic Other inflammatory condition of skin (20 sources) Psoriatic arthritis; 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: [Arthropathic psoriasis, unspecified] Onset: 07-19-2022 04-30-2023 Chronic Other inflammatory condition of skin (6 sources) Flexural psoriasis; 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] Onset: 04-16-2023 04-30-2023 Chronic Other inflammatory condition of skin (6 sources) Psoriasis; 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: [Psoriasis, unspecified] Onset: 04-30-2023 04-30-2023 Chronic Other inflammatory condition of skin (2 sources) Arthropathic psoriasis, unspecified; 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: [Arthropathic psoriasis, unspecified (Multi)] Onset: 06-01-2023 Chronic Other nervous system disorders (13 sources) Chronic pain; 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: [Other chronic pain] Onset: 04-30-2023 04-30-2023 Chronic Other nervous system disorders (2 sources) Other chronic pain Chronic Other nervous system disorders (1 source) Other chronic pain; 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: [Other chronic pain] Onset: 01-17-2023 Chronic Other nervous system disorders (1 source) Postoperative pain ; 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: [Other acute postprocedural pain] 06-06-2023 Episodic Other nutritional; endocrine; and metabolic disorders (7 sources) Cholesterol level - finding; 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: [Lipoprotein deficiency] Chronic Other nutritional; endocrine; and metabolic disorders (6 sources) Lipoprotein deficiency disorder; 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: [Lipoprotein deficiency] Onset: 04-30-2023 04-30-2023 Chronic Residual codes; unclassified (2 sources) Patient encounter status; 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: [Encounter for procedure for purposes other than remedying health state, unspecified] 05-18-2023 Episodic Spondylosis; intervertebral disc disorders; other back problems (20 sources) Lumbosacral spondylosis; 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: [Spondylosis without myelopathy or radiculopathy, lumbosacral region] Onset: 03-07-2023 Chronic Unclassified (1 source) Pain in right hip; 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: [Pain in right hip] Onset: 10-16-2022 Unclassified (7 sources) Patient has spine surgery Onset: 04-24-2023 04-24-2023 Past or Other Problems Problem Classification Problem Date Documented Da te Episodic/Chronic Cancer of prostate (6 sources) Malignant tumor of prostate; 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: [Malignant neoplasm of prostate] Onset: 09-15-2021 Resolved: 04-30-2023 04-30-2023 Chronic Other aftercare (6 sources) Long-term current use of drug therapy; 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: [Other snf (current) drug therapy] Onset: 07-22-2022 04-30-2023 Episodic Other aftercare (2 sources) Encounter for follow-up examination after completed treatment for conditions other than malignant neoplasm; 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: [Encounter for follow-up examination after completed treatment for conditions other than malignant neoplasm] Onset: 07-10-2023 Episodic Other bone disease and musculoskeletal deformities (6 sources) Bone pain; 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: [Other specified disorders of bone, other site] Onset: 04-30-2023 04-30-2023 Episodic Other connective tissue disease (13 sources) Muscle pain; 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: [Myalgia, other site] Onset: 04-30-2023 04-30-2023 Episodic Other connective tissue disease (6 sources) Pain in left lower limb; 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: [Pain in left leg] Onset: 01-06-2023 04-30-2023 Episodic Other connective tissue disease (2 sources) Arthrodesis status; 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: [Arthrodesis status] Onset: 07-10-2023 Episodic Other gastrointestinal disorders (2 sources) Drug induced constipation; 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: [Drug induced constipation] Onset: 06-01-2023 Episodic Other nervous system disorders (2 sources) Other acute postprocedural pain; 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: [Other acute postprocedural pain] Onset: 06-01-2023 Episodic Other non-traumatic joint disorders (19 sources) Pain in right hip joint; 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: [Pain in right hip] Onset: 10-16-2022 04-30-2023 Episodic Other screening for suspected conditions (not mental disorders or infectious disease) (1 source) Encounter for screening for malignant neoplasm of prostate; 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: [ENC SCREEN MALIG NEOPLASM PROSTATE] Onset: 09-15-2021 Episodic Residual codes; unclassified (7 sources) H/O Spinal surgery; 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: [Other specified postprocedural states] Onset: 04-24-2023 04-30-2023 Episodic Residual codes; unclassified (2 sources) Encounter for procedure for purposes other than remedying health state, unspecified; 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: [Encounter for procedure for purposes other than remedying health state, unspecified] Onset: 05-17-2023 Episodic Residual codes; unclassified (2 sources) Other specified postprocedural states; 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: [Other specified postprocedural states] Onset: 07-10-2023 Episodic Spondylosis; intervertebral disc disorders; other back problems (20 sources) Lumbar radiculopathy; 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: [Radiculopathy, lumbar region] Onset: 10-16-2022 Episodic Results Test Name Value Interpretation Reference Range Facil ity XR SCOLIOSIS 2 VIEW (NON EOS )on 08-14-2023 XR SCOLIOSIS 2 VIEW (NON EOS) Interpreted By: Carmenza Garcia, STUDY: XR SCOLIOSIS 2 VIEW (NON EOS) INDICATION: Signs/Symptoms:Lumb ar Stenosis for assesment of alignment. COMPARISON: 07/10/2023 ACCESSION NUMBER(S): [id number] ORDERING CLINICIAN: ISHA VALENTINO FINDINGS: There is mild levoscoliosis centered in the upper thoracic region. There is mild dextroscoliosis centered at the thoracolumbar junction. There is mild levoscoliosis centered in the mid lumbar region. Vertebral body heights are well preserved. Posterior spinal Instrumented fusion changes from L2 to pelvis with interbody fusion changes at L4-5 and L5-S1. Hardware is intact without perihardware fractures or lucencies. Xeco-nh-lvjfsrip spondylosis noted at T12-L1 and L1-2. Chronic appearing compression deformity is noted of T12 vertebral body with mild anterior height loss. There is positive sagittal balance. No significant coronal balance. IMPRESSION: Postsurgical changes as described above without hardware complication. Mild S shaped thoracolumbar scoliosis. Positive sagittal balance MACRO: None. Signed by: Carmenza Garcia 08/16/2023 5:16 PM Dictation workstation: [id number] [facility] Comment on above: Order Comment: Pleas e do both AP and lateral views. ( Total of 2 views ) Please have the patient standing without assistance of any kind and with knees in neutral position. The patient should stand relaxed, bend their elbows, and place their fists on the ipsilateral clavicles. XR SCOLIOSIS 2 VIEW (NON EOS )on 07-10-2023 XR SCOLIOSIS 2 VIEW (NON EOS) Interpreted By: Austen Bass, STUDY: XR SCOLIOSIS 2 VIEW (NON EOS); ; 07/10/2023 11:36 am INDICATION: Signs/Symptoms:post op. COMPARISON: 04/24/2023 ACCESSION NUMBER(S): [id number] ORDERING CLINICIAN: ISHA VALENTINO FINDINGS: Two views of the whole spine. Postsurgical changes status post posterior fusion from L2 at the bilateral iliac bones. L4-L5 and L5-S1 discectomies. Laminectomies from L3-L5. No hardware complication. Mild lumbar levocurvature, improved from prior. No acute fractures. Moderate lower thoracic spondylosis. Mild bilateral hip osteoarthrosis. IMPRESSION: Postsurgical changes, as above. No hardware complication. Lumbar levocurvature is decreased from the prior. MACRO: None Signed by: Austen Bass 07/11/2023 3:27 PM Dictation workstation: [id number] [facility] Comment on above: Order Comment: Pleas e do both AP and lateral views. ( Total of 2 views ) Please have the patient standing without assistance of any kind and with knees in neutral position. The patient should stand relaxed, bend their elbows, and place their fists on the ipsilateral clavicles. CBC panel Auto (Bld)on 06-05 Erythrocyte distribution width (RBC) [Ratio] 13.5 % 11.5 - 14.5 % [facility] Hematocrit (Bld) [Volume fraction] 33.1 % Low 41.0 - 52.0 % [facility] Hemoglobin (Bld) [Mass/Vol] 11.0 g/dL Low 13.5 - 17.5 g/dL [facility] Interpretation and review of laboratory results Abnormal [facility] MCH (RBC) [Entitic mass] 29.3 pg 26.0 - 34.0 pg [facility] MCHC (RBC) [Mass/Vol] 33.2 g/dL 32.0 - 36.0 g/dL [facility] MCV (RBC) [Entitic vol] 88 fL 80 - 100 fL [facility] Nucleated RBC/100 WBC (Bld) [Ratio] 0.0 % [facility] Platelets (Bld) [#/Vol] 323 10*3/uL [facility] RBC (Bld) [#/Vol] 3.75 10*6/uL Low [facility] WBC (Bld) [#/Vol] 6.3 10*3/uL [facility] Erythrocyte distribution width (RBC) [Ratio] 13.5 % Normal 11.5-14.5 [facility] Comment on above: Performed By: #### 5 2969-3 #### PACHECO Ferraro ([id number]) [facility] ([facility]) [address] [place] [address]8555 Hematocrit (Bld) [Volume fraction] 33.1 % Low 41.0-52.0 [facility] Comment on above: Performed By: #### 5 2969-3 #### PACHECO Ferraro ([id number]) [facility] ([facility]) [address] [place] [address] 36042 Hemoglobin (Bld) [Mass/Vol] 11.0 g/dL Low 13.5-17.5 [facility] Comment on above: Performed By: #### 5 2969-3 #### PACHECO Ferraro ([id number]) [facility] ([facility]) [address] [place] [address] MCH (RBC) [Entitic mass] 29.3 pg Normal 26.0-34.0 [facility] Comment on above: Performed By: #### 5 2969-3 #### PACHECO Ferraro ([id number]) [facility] ([facility]) [id number] [place] [address]28[address] MCHC (RBC) [Mass/Vol] 33.2 g/dL Normal 32.0-36.0 [facility] Comment on above: Performed By: #### 5 2969-3 #### PACHECO Ferarro ([id number]) [facility] ([facility]) [address] [place] [address] 15380 MCV (RBC) [Entitic vol] 88 fL Normal 80-100 [facility] Comment on above: Performed By: #### 5 2969-3 #### PACHECO Ferraro ([id number]) [facility] ([facility]) [address] [place] [address] 88390 Nucleated RBC/100 WBC (Bld) [Ratio] 0.0 /100 WBCs Normal 0.0-0.0 [facility] Comment on above: Performed By: #### 5 2969-3 #### PACHECO Ferraro ([id number]) [facility] ([facility]) [address] [place] [address] 31735 Platelets (Bld) [#/Vol] 323 x10*3/uL Normal 150-450 [facility] Comment on above: Performed By: #### 5 2969-3 #### PACHECO Ferraro ([id number]) [facility] ([facility]) [address] [place] [address] 89180 RBC (Bld) [#/Vol] 3.75 x10*6/uL Low 4.50-5.90 [facility] Comment on above: Performed By: #### 5 2969-3 #### PACHECO Ferraro ([id number]) [facility] ([facility]) [id number] [place] [address]06 WBC (Bld) [#/Vol] 6.3 x10*3/uL Normal 4.4-11.3 [facility] Comment on above: Performed By: #### 5 2969-3 #### PACHECO Ferraro ([id number]) [facility] ([facility]) [address] [place] [address] 15467 Glucose Test strip manual (B ld) [Mass/Vol]on 06-06-2023 Glucose [Mass/Vol] 207 mg/dL High 74 - 99 mg/dL [facility] Interpretation and review of laboratory results Abnormal [facility] Glucose [Mass/Vol] 207 mg/dL High 74-99 [facility] Comment on above: Performed By: #### 5 2969-3 #### PACHECO Ferraro ([id number]) [facility] ([facility]) [address] [place] [address] 65357 Glucose [Mass/Vol] 159 mg/dL High 74 - 99 mg/dL [facility] Interpretation and review of laboratory results Abnormal [facility] Glucose [Mass/Vol] 159 mg/dL High 74-99 [facility] Comment on above: Performed By: #### 3 4532-2 #### PACHECO Ferraro ([id number]) [facility] ([facility]) [address] [place] [address] 94649 Renal function 2000 panelon 06-06-2023 Albumin BCP dye [Mass/Vol] 3.6 g/dL 3.4 - 5.0 g/dL [facility] Anion gap [Moles/Vol] 13 mmol/L 10 - 20 mmol/L [facility] Calcium [Mass/Vol] 9.3 mg/dL 8.6 - 10. 6 mg/dL [facility] Chloride [Moles/Vol] 100 mmol/L 98 - 107 mmol/L [facility] CO2 [Moles/Vol] 26 mmol/L 21 - 32 mmol/L [facility] Creatinine [Mass/Vol] 0.60 mg/dL 0.50 - 1.30 mg/dL [facility] eGFR - PINF [facility] Comment on above: Calculations of german mated GFR are performed using the 2020 CKD-EPI Study Refit equation without the race variable for the IDMS-Traceable creatinine methods. https://jasn.asnjournals.org/content//ASN.90579 80296 Glucose [Mass/Vol] 236 mg/dL High 74 - 99 mg/dL [facility] Interpretation and review of laboratory results Abnormal [facility] Phosphate [Mass/Vol] 2.4 mg/dL Low 2.5 - 4.9 mg/dL [facility] Comment on above: The performance gregory acteristics of phosphorus testing in heparinized plasma have been validated by the individual laboratory site where testing is performed. Testing on heparinized plasma is not approved by the FDA; however, such approval is not necessary. Potassium [Moles/Vol] 3.3 mmol/L Low 3.5 - 5.3 mmol/L [facility] Sodium [Moles/Vol] 136 mmol/L 136 - 145 mmol/L [facility] Urea nitrogen [Mass/Vol] 10 mg/dL 6 - 23 mg/dL [facility] Albumin BCP dye [Mass/Vol] 3.6 g/dL Normal 3.4-5.0 [facility] Comment on above: Performed By: #### 5 2969-3 #### PACHECO Ferraro ([id number]) [facility] ([facility]) [id number] [place] [address]104 Anion gap [Moles/Vol] 13 mmol/L Normal 10-20 [facility] Comment on above: Performed By: #### 5 2969-3 #### PACHECO Ferraro ([id number]) [facility] ([facility]) [id number] [place] [address] 93939 Calcium [Mass/Vol] 9.3 mg/dL Normal 8.6-10.6 [facility] Comment on above: Performed By: #### 5 2969-3 #### PACHECO Ferraro ([id number]) [facility] ([facility]) [address] [place] [address] Chloride [Moles/Vol] 100 mmol/L Normal 98-107 [facility] Comment on above: Performed By: #### 5 2969-3 #### PACHECO Ferraro ([id number]) [facility] ([facility]) [address] [place] [address] CO2 [Moles/Vol] 26 mmol/L Normal 21-32 [facility] Comment on above: Performed By: #### 5 2969-3 #### PACHECO Ferraro ([id number]) [facility] ([facility]) [address] [place] [address] Creatinine [Mass/Vol] 0.60 mg/dL Normal 0.50-1.30 [facility] Comment on above: Performed By: #### 5 2969-3 #### PACHECO Ferraro ([id number]) [facility] ([facility]) [address] [place] [address] GFR/1.73 sq M.predicted MDRD (S/P/Bld) [Vol rate/Area] mL/min/{1.73_m2} Normal >60 [facility] Comment on above: Result Comment: Calc ulations of estimated GFR are performed using the 2020 CKD-EPI Study Refit equation without the race variable for the IDMS-Traceable creatinine methods. https://jasn.asnjournals.org/content//ASN.53196 87178 Performed By: #### 5 2969-3 #### PACHECO Ferraro ([id number]) [facility] ([facility]) [address] [place] [address] Glucose [Mass/Vol] 236 mg/dL High 74-99 [facility] Comment on above: Performed By: #### 5 2969-3 #### PACHECO Ferraro ([id number]) [facility] ([facility]) [address] [place] [address] Phosphate [Mass/Vol] 2.4 mg/dL Low 2.5-4.9 [facility] Comment on above: Result Comment: The performance characteristics of phosphorus testing in heparinized plasma have been validated by the individual laboratory site where testing is performed. Testing on heparinized plasma is not approved by the FDA; however, such approval is not necessary. Performed By: #### 5 2969-3 #### PACHECO Ferraro ([id number]) [facility] ([facility]) [address] [place] [address] 97929 Potassium [Moles/Vol] 3.3 mmol/L Low 3.5-5.3 [facility] Comment on above: Performed By: #### 5 2969-3 #### PACHECO Ferraro ([id number]) [facility] ([facility]) [address] [place] [address] 55275 Sodium [Moles/Vol] 136 mmol/L Normal 136-145 [facility] Comment on above: Performed By: #### 5 2969-3 #### PACHECO Ferraro ([id number]) [facility] ([facility]) [address] [place] [address] 35879 Urea nitrogen [Mass/Vol] 10 mg/dL Normal 6-23 [facility] Comment on above: Performed By: #### 5 2969-3 #### PACHECO Ferraro ([id number]) [facility] ([facility]) [address] [place] [address] 68964 Glucose Test strip manual (B ld) [Mass/Vol]on 06-05-2023 Glucose [Mass/Vol] 226 mg/dL High 74 - 99 mg/dL [facility] Interpretation and review of laboratory results Abnormal [facility] Glucose [Mass/Vol] 226 mg/dL High 74-99 [facility] Comment on above: Performed By: #### 3 4532-2 #### PACHECO Ferraro ([id number]) [facility] ([facility]) [id number] [place] [address] Glucose [Mass/Vol] 160 mg/dL High 74 - 99 mg/dL [facility] Interpretation and review of laboratory results Abnormal [facility] Glucose [Mass/Vol] 160 mg/dL High 74-99 [facility] Comment on above: Performed By: #### 3 4532-2 #### PACHECO Ferraro ([id number]) [facility] ([facility]) [address] [place] [address] 93514 Glucose [Mass/Vol] 192 mg/dL High 74 - 99 mg/dL [facility] Interpretation and review of laboratory results Abnormal [facility] Glucose [Mass/Vol] 192 mg/dL High 74-99 [facility] Comment on above: Performed By: #### 3 4532-2 #### PACHECO Ferraro ([id number]) [facility] ([facility]) [id number] [place] [address]606 Glucose [Mass/Vol] 163 mg/dL High 74 - 99 mg/dL [facility] Interpretation and review of laboratory results Abnormal [facility] Glucose [Mass/Vol] 163 mg/dL High 74-99 [facility] Comment on above: Performed By: #### 3 4532-2 #### PACHECO Ferraro ([id number]) [facility] ([facility]) [id number] [place] [address] 76796 Basic metabolic 2000 panelon 06-04-2023 Anion gap [Moles/Vol] 12 mmol/L 10 - 20 mmol/L [facility] Calcium [Mass/Vol] 8.4 mg/dL Low 8.6 - 10. 6 mg/dL [facility] Chloride [Moles/Vol] 102 mmol/L 98 - 107 mmol/L [facility] CO2 [Moles/Vol] 28 mmol/L 21 - 32 mmol/L [facility] Creatinine [Mass/Vol] 0.56 mg/dL 0.50 - 1.30 mg/dL [facility] eGFR - PINF [facility] Comment on above: Calculations of german mated GFR are performed using the 2020 CKD-EPI Study Refit equation without the race variable for the IDMS-Traceable creatinine methods. https://jasn.asnjournals.org/content//ASN.45241 07505 Glucose [Mass/Vol] 235 mg/dL High 74 - 99 mg/dL [facility] Interpretation and review of laboratory results Abnormal [facility] Potassium [Moles/Vol] 3.4 mmol/L Low 3.5 - 5.3 mmol/L [facility] Sodium [Moles/Vol] 139 mmol/L 136 - 145 mmol/L [facility] Urea nitrogen [Mass/Vol] 14 mg/dL 6 - 23 mg/dL [facility] Anion gap [Moles/Vol] 12 mmol/L Normal 10-20 [facility] Comment on above: Performed By: #### 3 4532-2 #### PACHECO Ferraro ([id number]) [facility] ([facility]) [address] [place] [address] Calcium [Mass/Vol] 8.4 mg/dL Low 8.6-10.6 [facility] Comment on above: Performed By: #### 3 2-2 #### PACHECO Ferraro ([id number]) [facility] ([facility]) [address] [place] [address] Chloride [Moles/Vol] 102 mmol/L Normal 98-107 [facility] Comment on above: Performed By: #### 3 4532-2 #### PACHECO Ferraro ([id number]) [facility] ([facility]) [address] [place] [address] CO2 [Moles/Vol] 28 mmol/L Normal 21-32 [facility] Comment on above: Performed By: #### 3 4532-2 #### PACHECO Ferraro ([id number]) [facility] ([facility]) [address] [place] [address] Creatinine [Mass/Vol] 0.56 mg/dL Normal 0.50-1.30 [facility] Comment on above: Performed By: #### 3 453-2 #### PACHECO Ferraro ([id number]) [facility] ([facility]) [address] [place] [address] GFR/1.73 sq M.predicted MDRD (S/P/Bld) [Vol rate/Area] mL/min/{1.73_m2} Normal >60 [facility] Comment on above: Result Comment: Calc ulations of estimated GFR are performed using the 2020 CKD-EPI Study Refit equation without the race variable for the IDMS-Traceable creatinine methods. https://jasn.asnjournals.org/content/early//ASN.48591 56086 Performed By: #### 3 4532-2 #### PACHECO Ferraro ([id number]) [facility] ([facility]) [address] [place] [address] Glucose [Mass/Vol] 235 mg/dL High 74-99 [facility] Comment on above: Performed By: #### 3 453-2 #### PACHECO Ferraro ([id number]) [facility] ([facility]) [address] [place] [address] Potassium [Moles/Vol] 3.4 mmol/L Low 3.5-5.3 [facility] Comment on above: Performed By: #### 3 4532-2 #### PACHECO Ferraro ([id number]) [facility] ([facility]) [address] [place] [address] Sodium [Moles/Vol] 139 mmol/L Normal 136-145 [facility] Comment on above: Performed By: #### 3 4532-2 #### PACHECO Ferraro ([id number]) [facility] ([facility]) [address] [place] [address] Urea nitrogen [Mass/Vol] 14 mg/dL Normal 6-23 [facility] Comment on above: Performed By: #### 3 4532-2 #### PACHECO VILLARREAL L ([id number]) [facility] ([facility]) [address] [place] [address] CBC panel Auto (Bld)on 06-03 Erythrocyte distribution width (RBC) [Ratio] 13.6 % 11.5 - 14.5 % [facility] Hematocrit (Bld) [Volume fraction] 30.9 % Low 41.0 - 52.0 % [facility] Hemoglobin (Bld) [Mass/Vol] 9.7 g/dL Low 13.5 - 17.5 g/dL [facility] Interpretation and review of laboratory results Abnormal [facility] MCH (RBC) [Entitic mass] 28.1 pg 26.0 - 34.0 pg [facility] MCHC (RBC) [Mass/Vol] 31.4 g/dL Low 32.0 - 36.0 g/dL [facility] MCV (RBC) [Entitic vol] 90 fL 80 - 100 fL [facility] Nucleated RBC/100 WBC (Bld) [Ratio] 0.0 % [facility] Platelets (Bld) [#/Vol] 209 10*3/uL [facility] RBC (Bld) [#/Vol] 3.45 10*6/uL Low [facility] WBC (Bld) [#/Vol] 8.3 10*3/uL [facility] Erythrocyte distribution width (RBC) [Ratio] 13.6 % Normal 11.5-14.5 [facility] Comment on above: Performed By: #### 3 4532-2 #### PACHECO Ferraro ([id number]) [facility] ([facility]) [address] [place] [address] Hematocrit (Bld) [Volume fraction] 30.9 % Low 41.0-52.0 [facility] Comment on above: Performed By: #### 3 4532-2 #### PACHECO Ferraro ([id number]) [facility] ([facility]) [address] [place] [address] Hemoglobin (Bld) [Mass/Vol] 9.7 g/dL Low 13.5-17.5 [facility] Comment on above: Performed By: #### 3 4532-2 #### PACHECO Ferraro ([id number]) [facility] ([facility]) [address] [place] [address] MCH (RBC) [Entitic mass] 28.1 pg Normal 26.0-34.0 [facility] Comment on above: Performed By: #### 3 4532-2 #### PACHECO Ferraro ([id number]) [facility] ([facility]) [address] [place] [address] MCHC (RBC) [Mass/Vol] 31.4 g/dL Low 32.0-36.0 [facility] Comment on above: Performed By: #### 3 453-2 #### PACHECO Ferraro ([id number]) [facility] ([facility]) [address] [place] [address] MCV (RBC) [Entitic vol] 90 fL Normal 80-100 [facility] Comment on above: Performed By: #### 3 4531-2 #### PACHECO Ferraro ([id number]) [facility] ([facility]) [address] [place] [address] Nucleated RBC/100 WBC (Bld) [Ratio] 0.0 /100 WBCs Normal 0.0-0.0 [facility] Comment on above: Performed By: #### 3 453-2 #### PACHECO Ferraro ([id number]) [facility] ([facility]) [address] [place] [address] Platelets (Bld) [#/Vol] 209 x10*3/uL Normal 150-450 [facility] Comment on above: Performed By: #### 3 4532-2 #### PACHECO Ferraro ([id number]) [facility] ([facility]) [address] [place] [address] RBC (Bld) [#/Vol] 3.45 x10*6/uL Low 4.50-5.90 [facility] Comment on above: Performed By: #### 3 453-2 #### PACHECO Ferraro ([id number]) [facility] ([facility]) [address] [place] [address] WBC (Bld) [#/Vol] 8.3 x10*3/uL Normal 4.4-11.3 [facility] Comment on above: Performed By: #### 3 4532-2 #### PACHECO Ferraro ([id number]) [facility] ([facility]) [address] [place] [address] Glucose Test strip manual (B ld) [Mass/Vol]on 06-04-2023 Glucose [Mass/Vol] 184 mg/dL High 74 - 99 mg/dL [facility] Interpretation and review of laboratory results Abnormal [facility] Glucose [Mass/Vol] 184 mg/dL High 74-99 [facility] Comment on above: Performed By: #### 3 453-2 #### PACHECO Ferraro ([id number]) [facility] ([facility]) [address] [place] [address] Glucose [Mass/Vol] 243 mg/dL High 74 - 99 mg/dL [facility] Interpretation and review of laboratory results Abnormal [facility] Glucose [Mass/Vol] 243 mg/dL High 74-99 [facility] Comment on above: Performed By: #### 3 4531-2 #### PACHECO Ferraro ([id number]) [facility] ([facility]) [address] [place] [address] Glucose [Mass/Vol] 233 mg/dL High 74 - 99 mg/dL [facility] Interpretation and review of laboratory results Abnormal [facility] Glucose [Mass/Vol] 233 mg/dL High 74-99 [facility] Comment on above: Performed By: #### 3 453-2 #### PACHECO Ferraro ([id number]) [facility] ([facility]) [address] [place] [address] Glucose [Mass/Vol] 139 mg/dL High 74 - 99 mg/dL [facility] Interpretation and review of laboratory results Abnormal [facility] Glucose [Mass/Vol] 139 mg/dL High 74-99 [facility] Comment on above: Performed By: #### 2 4321-2 #### PACHECO Ferraro ([id number]) [facility] ([facility]) [address] [place] [address] No Panel Informationon 06-03 Dispense Status RE [facility] PRODUCT BLOOD TYPE 9500 [facility] PRODUCT CODE [id number] [facility] Unit ABO O [facility] RH Negative [facility] UNIT VOLUME 350 [facility] XM INTEP COMP [facility] Prepare RBC: 2 Unitson 06-03 Blood Expiration Date June 19, 2023 23:59 EDT [facility] Blood Expiration Date July 02, 2023 23:59 EDT [facility] Unit Number [id number] [facility] Unit Number [id number] [facility] Basic metabolic 2000 panelon 06-03-2023 Anion gap [Moles/Vol] 10 mmol/L 10 - 20 mmol/L [facility] Calcium [Mass/Vol] 8.6 mg/dL 8.6 - 10. 6 mg/dL [facility] Chloride [Moles/Vol] 105 mmol/L 98 - 107 mmol/L [facility] CO2 [Moles/Vol] 27 mmol/L 21 - 32 mmol/L [facility] Creatinine [Mass/Vol] 0.58 mg/dL 0.50 - 1.30 mg/dL [facility] eGFR - PINF [facility] Comment on above: Calculations of german mated GFR are performed using the 2020 CKD-EPI Study Refit equation without the race variable for the IDMS-Traceable creatinine methods. https://jasn.asnjournals.org/content/early//ASN.74704 64608 Glucose [Mass/Vol] 181 mg/dL High 74 - 99 mg/dL [facility] Interpretation and review of laboratory results Abnormal [facility] Potassium [Moles/Vol] 3.3 mmol/L Low 3.5 - 5.3 mmol/L [facility] Sodium [Moles/Vol] 139 mmol/L 136 - 145 mmol/L [facility] Urea nitrogen [Mass/Vol] 10 mg/dL 6 - 23 mg/dL [facility] Anion gap [Moles/Vol] 10 mmol/L Normal 10-20 [facility] Comment on above: Performed By: #### 2 4321-2 #### PACHECO Ferraro ([id number]) [facility] ([facility]) [id number] [place] [address] 10626 Calcium [Mass/Vol] 8.6 mg/dL Normal 8.6-10.6 [facility] Comment on above: Performed By: #### 2 4321-2 #### PACHECO Ferraro ([id number]) [facility] ([facility]) [id number] [place] [address] 79681 Chloride [Moles/Vol] 105 mmol/L Normal 98-107 [facility] Comment on above: Performed By: #### 2 4321-2 #### PACHECO Ferraro ([id number]) [facility] ([facility]) [id number] [place] [address] 40243 CO2 [Moles/Vol] 27 mmol/L Normal 21-32 [facility] Comment on above: Performed By: #### 2 4321-2 #### PACHECO Ferraro ([id number]) [facility] ([facility]) [address] [place] [address] 40821 Creatinine [Mass/Vol] 0.58 mg/dL Normal 0.50-1.30 [facility] Comment on above: Performed By: #### 2 4321-2 #### PACHECO Ferraro ([id number]) [facility] ([facility]) [id number] [place] [address] 61705 GFR/1.73 sq M.predicted MDRD (S/P/Bld) [Vol rate/Area] mL/min/{1.73_m2} Normal >60 [facility] Comment on above: Result Comment: Calc ulations of estimated GFR are performed using the 2020 CKD-EPI Study Refit equation without the race variable for the IDMS-Traceable creatinine methods. https://jasn.asnjournals.org/content//ASN.73918 47412 Performed By: #### 2 4321-2 #### PACHECO Ferraro ([id number]) [facility] ([facility]) [address] [place] [address] 34704 Glucose [Mass/Vol] 181 mg/dL High 74-99 [facility] Comment on above: Performed By: #### 2 4321-2 #### PACHECO Ferraro ([id number]) [facility] ([facility]) [address] [place] [address] 82269 Potassium [Moles/Vol] 3.3 mmol/L Low 3.5-5.3 [facility] Comment on above: Performed By: #### 2 4321-2 #### PACHECO Ferraro ([id number]) [facility] ([facility]) [address] [place] [address] 48236 Sodium [Moles/Vol] 139 mmol/L Normal 136-145 [facility] Comment on above: Performed By: #### 2 4321-2 #### PACHECO VILLARREAL L ([id number]) [facility] ([facility]) [id number] [place] [address] 24616 Urea nitrogen [Mass/Vol] 10 mg/dL Normal 6-23 [facility] Comment on above: Performed By: #### 2 4321-2 #### PACHECO VILLARREAL L ([id number]) [facility] ([facility]) [id number] [place] [address] 01533 CBC panel Auto (Bld)on 06-02 Erythrocyte distribution width (RBC) [Ratio] 14.2 % 11.5 - 14.5 % [facility] Hematocrit (Bld) [Volume fraction] 31.3 % Low 41.0 - 52.0 % [facility] Hemoglobin (Bld) [Mass/Vol] 10.1 g/dL Low 13.5 - 17.5 g/dL [facility] Interpretation and review of laboratory results Abnormal [facility] MCH (RBC) [Entitic mass] 29.3 pg 26.0 - 34.0 pg [facility] MCHC (RBC) [Mass/Vol] 32.3 g/dL 32.0 - 36.0 g/dL [facility] MCV (RBC) [Entitic vol] 91 fL 80 - 100 fL [facility] Nucleated RBC/100 WBC (Bld) [Ratio] 0.0 % [facility] Platelets (Bld) [#/Vol] 203 10*3/uL [facility] RBC (Bld) [#/Vol] 3.45 10*6/uL Low [facility] WBC (Bld) [#/Vol] 9.4 10*3/uL [facility] Erythrocyte distribution width (RBC) [Ratio] 14.2 % Normal 11.5-14.5 [facility] Comment on above: Performed By: #### 2 4321-2 #### PACHECO Ferraro ([id number]) [facility] ([facility]) [id number] [place] [address] 20979 Hematocrit (Bld) [Volume fraction] 31.3 % Low 41.0-52.0 [facility] Comment on above: Performed By: #### 2 4321-2 #### PACHECO Ferraro ([id number]) [facility] ([facility]) [id number] [place] [address] 04449 Hemoglobin (Bld) [Mass/Vol] 10.1 g/dL Low 13.5-17.5 [facility] Comment on above: Performed By: #### 2 4321-2 #### PACHECO Ferraro ([id number]) [facility] ([facility]) [address] [place] [address] MCH (RBC) [Entitic mass] 29.3 pg Normal 26.0-34.0 [facility] Comment on above: Performed By: #### 2 4321-2 #### PACHECO Ferraro ([id number]) [facility] ([facility]) [address] [place] [address] MCHC (RBC) [Mass/Vol] 32.3 g/dL Normal 32.0-36.0 [facility] Comment on above: Performed By: #### 2 4321-2 #### PACHECO Ferraro ([id number]) [facility] ([facility]) [address] [place] [address] 67968 MCV (RBC) [Entitic vol] 91 fL Normal 80-100 [facility] Comment on above: Performed By: #### 2 4321-2 #### PACHECO Ferraro ([id number]) [facility] ([facility]) [address] [place] [address] 71807 Nucleated RBC/100 WBC (Bld) [Ratio] 0.0 /100 WBCs Normal 0.0-0.0 [facility] Comment on above: Performed By: #### 2 4321-2 #### PACHECO Ferraro ([id number]) [facility] ([facility]) [address] [place] [address] 41122 Platelets (Bld) [#/Vol] 203 x10*3/uL Normal 150-450 [facility] Comment on above: Performed By: #### 2 4321-2 #### PACHECO Ferraro ([id number]) [facility] ([facility]) [address] [place] [address] 45462 RBC (Bld) [#/Vol] 3.45 x10*6/uL Low 4.50-5.90 [facility] Comment on above: Performed By: #### 2 4321-2 #### PACHECO Ferraro ([id number]) [facility] ([facility]) [address] [place] [address] 76145 WBC (Bld) [#/Vol] 9.4 x10*3/uL Normal 4.4-11.3 [facility] Comment on above: Performed By: #### 2 4321-2 #### PACHECO Ferraro ([id number]) [facility] ([facility]) [address] [place] [address] 32325 Glucose Test strip manual (B ld) [Mass/Vol]on 06-03-2023 Glucose [Mass/Vol] 207 mg/dL High 74 - 99 mg/dL [facility] Interpretation and review of laboratory results Abnormal [facility] Glucose [Mass/Vol] 207 mg/dL High 74-99 [facility] Comment on above: Performed By: #### 2 4321-2 #### PACHECO Ferraro ([id number]) [facility] ([facility]) [address] [place] [address] 37638 Glucose [Mass/Vol] 224 mg/dL High 74 - 99 mg/dL [facility] Interpretation and review of laboratory results Abnormal [facility] Glucose [Mass/Vol] 224 mg/dL High 74-99 [facility] Comment on above: Performed By: #### 2 4321-2 #### PACHECO Ferraro ([id number]) [facility] ([facility]) [address] [place] [address] 92021 Glucose [Mass/Vol] 129 mg/dL High 74 - 99 mg/dL [facility] Interpretation and review of laboratory results Abnormal [facility] Glucose [Mass/Vol] 129 mg/dL High 74-99 [facility] Comment on above: Performed By: #### 2 4321-2 #### PACHECO Ferraro ([id number]) [facility] ([facility]) [address] [place] [address] 55211 CBC panel Auto (Bld)on 06-01 Erythrocyte distribution width (RBC) [Ratio] 14.6 % High 11.5 - 14.5 % [facility] Hematocrit (Bld) [Volume fraction] 34.9 % Low 41.0 - 52.0 % [facility] Hemoglobin (Bld) [Mass/Vol] 10.9 g/dL Low 13.5 - 17.5 g/dL [facility] Interpretation and review of laboratory results Abnormal [facility] MCH (RBC) [Entitic mass] 28.7 pg 26.0 - 34.0 pg [facility] MCHC (RBC) [Mass/Vol] 31.2 g/dL Low 32.0 - 36.0 g/dL [facility] MCV (RBC) [Entitic vol] 92 fL 80 - 100 fL [facility] Nucleated RBC/100 WBC (Bld) [Ratio] 0.0 % [facility] Platelets (Bld) [#/Vol] 243 10*3/uL [facility] RBC (Bld) [#/Vol] 3.80 10*6/uL Low [facility] WBC (Bld) [#/Vol] 10.6 10*3/uL [facility] Erythrocyte distribution width (RBC) [Ratio] 14.6 % High 11.5-14.5 [facility] Comment on above: Performed By: #### 5 8410-2 #### PACHECO Ferraro ([id number]) [facility] ([facility]) [address] [place] [address] 55342 Hematocrit (Bld) [Volume fraction] 34.9 % Low 41.0-52.0 [facility] Comment on above: Performed By: #### 5 8410-2 #### PACHECO Ferraro ([id number]) [facility] ([facility]) [address] [place] [address] 41191 Hemoglobin (Bld) [Mass/Vol] 10.9 g/dL Low 13.5-17.5 [facility] Comment on above: Performed By: #### 5 8410-2 #### PACHECO Ferraro ([id number]) [facility] ([facility]) [address] [place] [address] 72546 MCH (RBC) [Entitic mass] 28.7 pg Normal 26.0-34.0 [facility] Comment on above: Performed By: #### 5 8410-2 #### PACHECO Ferraro ([id number]) [facility] ([facility]) [id number] [place] [address] 41088 MCHC (RBC) [Mass/Vol] 31.2 g/dL Low 32.0-36.0 [facility] Comment on above: Performed By: #### 5 8410-2 #### PACHECO Ferraro ([id number]) [facility] ([facility]) [id number] [place] [address] 48364 MCV (RBC) [Entitic vol] 92 fL Normal 80-100 [facility] Comment on above: Performed By: #### 5 8410-2 #### PACHECO Ferraro ([id number]) [facility] ([facility]) [address] [place] [address] 46433 Nucleated RBC/100 WBC (Bld) [Ratio] 0.0 /100 WBCs Normal 0.0-0.0 [facility] Comment on above: Performed By: #### 5 8410-2 #### PACHECO Ferraro ([id number]) [facility] ([facility]) [address] [place] [address] 71972 Platelets (Bld) [#/Vol] 243 x10*3/uL Normal 150-450 [facility] Comment on above: Performed By: #### 5 8410-2 #### PACHECO Ferraro ([id number]) [facility] ([facility]) [address] [place] [address] 63971 RBC (Bld) [#/Vol] 3.80 x10*6/uL Low 4.50-5.90 [facility] Comment on above: Performed By: #### 5 8410-2 #### PACHECO Ferraro ([id number]) [facility] ([facility]) [address] [place] [address] 76446 WBC (Bld) [#/Vol] 10.6 x10*3/uL Normal 4.4-11.3 [facility] Comment on above: Performed By: #### 5 8410-2 #### PACHECO Ferraro ([id number]) [facility] ([facility]) [id number] [place] [address] 99622 Fibrinogenon 06-02-2023 Fibrinogen Coag (PPP) [Mass/Vol] 270 mg/dL 200 - 400 mg/dL [facility] Fibrinogen Coag (PPP) [Mass/Vol] 270 mg/dL Normal 200-400 [facility] Comment on above: Performed By: #### 2 4321-2 #### PACHECO Ferraro ([id number]) [facility] ([facility]) [address] [place] [address] 83728 Fibrinogen Coag (PPP) [Mass/ Vol]on 06-02-2023 Interpretation and review of laboratory results Normal [facility] Glucose Test strip manual (B ld) [Mass/Vol]on 06-02-2023 Glucose [Mass/Vol] 248 mg/dL High 74 - 99 mg/dL [facility] Interpretation and review of laboratory results Abnormal [facility] Glucose [Mass/Vol] 248 mg/dL High 74-99 [facility] Comment on above: Performed By: #### 2 4321-2 #### PACHECO Ferraro ([id number]) [facility] ([facility]) [address] [place] [address] 82391 Glucose [Mass/Vol] 278 mg/dL High 74 - 99 mg/dL [facility] Interpretation and review of laboratory results Abnormal [facility] Glucose [Mass/Vol] 233 mg/dL High 74 - 99 mg/dL [facility] Interpretation and review of laboratory results Abnormal [facility] Glucose [Mass/Vol] 278 mg/dL High 74-99 [facility] Comment on above: Performed By: #### 2 4321-2 #### PACHECO Ferraro ([id number]) [facility] ([facility]) [address] [place] [address] 36593 Glucose [Mass/Vol] 233 mg/dL High 74-99 [facility] Comment on above: Performed By: #### 2 4321-2 #### PACHECO Ferraro ([id number]) [facility] ([facility]) [address] [place] [address] 70566 Magnesiumon 06-02-2023 Magnesium [Mass/Vol] 1.74 mg/dL 1.60 - 2.40 mg/dL [facility] Magnesium [Mass/Vol] 1.74 mg/dL Normal 1.60-2.40 [facility] Comment on above: Performed By: #### 5 8410-2 #### PACHECO Ferraro ([id number]) [facility] ([facility]) [id number] [place] [address] 34044 Magnesium [Mass/Vol]on 06-01 Interpretation and review of laboratory results Normal [facility] No Panel Informationon 06-01 [facility] Renal function 2000 panelon 06-02-2023 Albumin BCP dye [Mass/Vol] 3.8 g/dL 3.4 - 5.0 g/dL [facility] Anion gap [Moles/Vol] 11 mmol/L 10 - 20 mmol/L [facility] Calcium [Mass/Vol] 8.7 mg/dL 8.6 - 10. 6 mg/dL [facility] Chloride [Moles/Vol] 102 mmol/L 98 - 107 mmol/L [facility] CO2 [Moles/Vol] 26 mmol/L 21 - 32 mmol/L [facility] Creatinine [Mass/Vol] 0.71 mg/dL 0.50 - 1.30 mg/dL [facility] eGFR - PINF [facility] Comment on above: Calculations of german mated GFR are performed using the 2020 CKD-EPI Study Refit equation without the race variable for the IDMS-Traceable creatinine methods. https://jasn.asnjournals.org/content/early//ASN.72645 54994 Glucose [Mass/Vol] 163 mg/dL High 74 - 99 mg/dL [facility] Interpretation and review of laboratory results Abnormal [facility] Phosphate [Mass/Vol] 2.1 mg/dL Low 2.5 - 4.9 mg/dL [facility] Comment on above: The performance gregory acteristics of phosphorus testing in heparinized plasma have been validated by the individual laboratory site where testing is performed. Testing on heparinized plasma is not approved by the FDA; however, such approval is not necessary. Potassium [Moles/Vol] 3.3 mmol/L Low 3.5 - 5.3 mmol/L [facility] Sodium [Moles/Vol] 136 mmol/L 136 - 145 mmol/L [facility] Urea nitrogen [Mass/Vol] 8 mg/dL 6 - 23 mg/dL [facility] Albumin BCP dye [Mass/Vol] 3.8 g/dL Normal 3.4-5.0 [facility] Comment on above: Performed By: #### 5 8410-2 #### PACHECO Ferraro ([id number]) [facility] ([facility]) [id number] [place] [address] 60753 Anion gap [Moles/Vol] 11 mmol/L Normal 10-20 [facility] Comment on above: Performed By: #### 5 8410-2 #### PACHECO Ferraro ([id number]) [facility] ([facility]) [address] [place] [address] 96132 Calcium [Mass/Vol] 8.7 mg/dL Normal 8.6-10.6 [facility] Comment on above: Performed By: #### 5 8410-2 #### PACHECO Ferraro ([id number]) [facility] ([facility]) [id number] [place] [address] 08334 Chloride [Moles/Vol] 102 mmol/L Normal 98-107 [facility] Comment on above: Performed By: #### 5 8410-2 #### PACHECO Ferraro ([id number]) [facility] ([facility]) [id number] [place] [address] 18140 CO2 [Moles/Vol] 26 mmol/L Normal 21-32 [facility] Comment on above: Performed By: #### 5 8410-2 #### PACHECO Ferraro ([id number]) [facility] ([facility]) [address] [place] [address] 99121 Creatinine [Mass/Vol] 0.71 mg/dL Normal 0.50-1.30 [facility] Comment on above: Performed By: #### 5 8410-2 #### PACHECO Ferraro ([id number]) [facility] ([facility]) [address] [place] [address] GFR/1.73 sq M.predicted MDRD (S/P/Bld) [Vol rate/Area] mL/min/{1.73_m2} Normal >60 [facility] Comment on above: Result Comment: Calc ulations of estimated GFR are performed using the 2020 CKD-EPI Study Refit equation without the race variable for the IDMS-Traceable creatinine methods. https://jasn.asnjournals.org/content/early//ASN.26224 36012 Performed By: #### 5 8410-2 #### PACHECO Ferraro ([id number]) [facility] ([facility]) [id number] [place] [address] 16787 Glucose [Mass/Vol] 163 mg/dL High 74-99 [facility] Comment on above: Performed By: #### 5 8410-2 #### PACHECO Ferraro ([id number]) [facility] ([facility]) [id number] [place] [address] 03401 Phosphate [Mass/Vol] 2.1 mg/dL Low 2.5-4.9 [facility] Comment on above: Result Comment: The performance characteristics of phosphorus testing in heparinized plasma have been validated by the individual laboratory site where testing is performed. Testing on heparinized plasma is not approved by the FDA; however, such approval is not necessary. Performed By: #### 5 8410-2 #### PACHECO Ferraro ([id number]) [facility] ([facility]) [address] [place] [address] Potassium [Moles/Vol] 3.3 mmol/L Low 3.5-5.3 [facility] Comment on above: Performed By: #### 5 8410-2 #### PACHECO Ferraro ([id number]) [facility] ([facility]) [address] [place] [address] 28070 Sodium [Moles/Vol] 136 mmol/L Normal 136-145 [facility] Comment on above: Performed By: #### 5 8410-2 #### PACHECO Ferraro ([id number]) [facility] ([facility]) [address] [place] [address] Urea nitrogen [Mass/Vol] 8 mg/dL Normal 6-23 [facility] Comment on above: Performed By: #### 5 8410-2 #### PACHECO Ferraro ([id number]) [facility] ([facility]) [id number] [place] [address] 15641 CBC panel Auto (Bld)on 05-31 Erythrocyte distribution width (RBC) [Ratio] 14.0 % 11.5 - 14.5 % [facility] Hematocrit (Bld) [Volume fraction] 31.1 % Low 41.0 - 52.0 % [facility] Hemoglobin (Bld) [Mass/Vol] 10.5 g/dL Low 13.5 - 17.5 g/dL [facility] Interpretation and review of laboratory results Abnormal [facility] MCH (RBC) [Entitic mass] 29.0 pg 26.0 - 34.0 pg [facility] MCHC (RBC) [Mass/Vol] 33.8 g/dL 32.0 - 36.0 g/dL [facility] MCV (RBC) [Entitic vol] 86 fL 80 - 100 fL [facility] Nucleated RBC/100 WBC (Bld) [Ratio] 0.0 % [facility] Platelets (Bld) [#/Vol] 233 10*3/uL [facility] RBC (Bld) [#/Vol] 3.62 10*6/uL Low [facility] WBC (Bld) [#/Vol] 9.7 10*3/uL [facility] Erythrocyte distribution width (RBC) [Ratio] 14.0 % Normal 11.5-14.5 [facility] Comment on above: Performed By: #### 5 8410-2 #### PACHECO Ferraro ([id number]) [facility] ([facility]) [address] [place] [address] Hematocrit (Bld) [Volume fraction] 31.1 % Low 41.0-52.0 [facility] Comment on above: Performed By: #### 5 8410-2 #### PACHECO Ferraro ([id number]) [facility] ([facility]) [address] [place] [address] 88506 Hemoglobin (Bld) [Mass/Vol] 10.5 g/dL Low 13.5-17.5 [facility] Comment on above: Performed By: #### 5 8410-2 #### PACHECO Ferraro ([id number]) [facility] ([facility]) [address] [place] [address] 65864 MCH (RBC) [Entitic mass] 29.0 pg Normal 26.0-34.0 [facility] Comment on above: Performed By: #### 5 8410-2 #### PACHECO Ferraro ([id number]) [facility] ([facility]) [address] [place] [address] 26794 MCHC (RBC) [Mass/Vol] 33.8 g/dL Normal 32.0-36.0 [facility] Comment on above: Performed By: #### 5 8410-2 #### PACHECO Ferraro ([id number]) [facility] ([facility]) [address] [place] [address] 31726 MCV (RBC) [Entitic vol] 86 fL Normal 80-100 [facility] Comment on above: Performed By: #### 5 8410-2 #### PACHECO Ferraro ([id number]) [facility] ([facility]) [address] [place] [address] 83724 Nucleated RBC/100 WBC (Bld) [Ratio] 0.0 /100 WBCs Normal 0.0-0.0 [facility] Comment on above: Performed By: #### 5 8410-2 #### PACHECO Ferraro ([id number]) [facility] ([facility]) [address] [place] [id number] Platelets (Bld) [#/Vol] 233 x10*3/uL Normal 150-450 [facility] Comment on above: Performed By: #### 5 8410-2 #### PACHECO Ferraro ([id number]) [facility] ([facility]) [address] [place] [address] RBC (Bld) [#/Vol] 3.62 x10*6/uL Low 4.50-5.90 [facility] Comment on above: Performed By: #### 5 8410-2 #### PACHECO Ferraro ([id number]) [facility] ([facility]) [address] [place] [address] 86043 WBC (Bld) [#/Vol] 9.7 x10*3/uL Normal 4.4-11.3 [facility] Comment on above: Performed By: #### 5 8410-2 #### PACHECO Ferraro ([id number]) [facility] ([facility]) [address] [place] [address] 48485 FL FLUORO IMAGES NO CHARGEon 06-01-2023 FL FLUORO IMAGES NO CHARGE These images are not reportable by radiology and will not be interpreted by Radiologists. Normal [facility] Fibrinogenon 06-01-2023 Fibrinogen Coag (PPP) [Mass/Vol] 195 mg/dL Low 200 - 400 mg/dL [facility] Fibrinogen Coag (PPP) [Mass/Vol] 195 mg/dL Low 200-400 [facility] Comment on above: Performed By: #### 5 8410-2 #### PACHECO Ferraro ([id number]) [facility] ([facility]) [address] [place] [address] 65048 Fibrinogen Coag (PPP) [Mass/ Vol]on 06-01-2023 Interpretation and review of laboratory results Abnormal [facility] Gas and Carbon monoxide and Electrolytes panel (BldA)on 06-01-2023 Anion gap 4 (BldA) [Moles/Vol] 11 [facility] Base excess Calc (Bld) [Moles/Vol] -3.0000 mmol/L Low -2.0 - 3.0 mmol/L [facility] Calcium.ionized (BldA) [Moles/Vol] 1.18 mmol/L 1.10 - 1.33 mmol/L [facility] Chloride (BldA) [Moles/Vol] 106 mmol/L 98 - 107 mmol/L [facility] CO2 (Bld) [Partial pressure] 38 mm[Hg] [facility] Glucose [Mass/Vol] 245 mg/dL High 74 - 99 mg/[facility] (Bld) [Moles/Vol] 22.0 mmol/L 22.0 - 26.0 mmol/L [facility] Hematocrit Est (Bld) [Volume fraction] 32.0 % Low 41.0 - 52.0 % [facility] Hemoglobin (Bld) [Mass/Vol] 10.5 g/dL Low 13.5 - 17.5 g/dL [facility] Inhaled oxygen concentration 50 % [facility] Interpretation and review of laboratory results Abnormal [facility] Lactate (BldA) [Moles/Vol] 2.0 mmol/L 0.4 - 2.0 mmol/L [facility] Oxygen (Bld) [Partial pressure] 202 mm[Hg] High [facility] Oxyhemoglobin (BldA) [Mass fraction] 97.7 % 94.0 - 98.0 % [facility] pH (Bld) 7.37 [pH] Low 7.38 - 7.42 pH [facility] Potassium (BldA) [Moles/Vol] 3.1 mmol/L Low 3.5 - 5.3 mmol/L [facility] Sodium (BldA) [Moles/Vol] 136 mmol/L 136 - 145 mmol/L [facility] Anion gap 4 (BldA) [Moles/Vol] 11 mmo/L Normal 10-25 [facility] Comment on above: Performed By: #### 5 8410-2 #### PACHECO Ferraro ([id number]) [facility] ([facility]) [address] [place] [address] Base excess Calc (Bld) [Moles/Vol] -3.0000 mmol/L Low -2.0-3.0 [facility] Comment on above: Performed By: #### 5 8410-2 #### PACHECO Ferraro ([id number]) [facility] ([facility]) [id number] [place] [address] 10834 Calcium.ionized (BldA) [Moles/Vol] 1.18 mmol/L Normal 1.10-1.33 [facility] Comment on above: Performed By: #### 5 8410-2 #### PACHECO Ferraro ([id number]) [facility] ([facility]) [address] [place] [address] 13502 Chloride (BldA) [Moles/Vol] 106 mmol/L Normal 98-107 [facility] Comment on above: Performed By: #### 5 8410-2 #### PACHECO Ferraro ([id number]) [facility] ([facility]) [address] [place] [address] 00794 CO2 (Bld) [Partial pressure] 38 mm Hg Normal 38-42 [facility] Comment on above: Performed By: #### 5 8410-2 #### PACHECO Ferraro ([id number]) [facility] ([facility]) [address] [place] [address] 66874 Glucose [Mass/Vol] 245 mg/dL High 74-99 [facility] Comment on above: Performed By: #### 5 8410-2 #### PACHECO Ferraro ([id number]) [facility] ([facility]) [address] [place] [address] 74243 HCO3 (Bld) [Moles/Vol] 22.0 mmol/L Normal 22.0-26.0 [facility] Comment on above: Performed By: #### 5 8410-2 #### PACHECO VILLARREAL L ([id number]) [facility] ([facility]) [address] [place] [address] 90381 Hematocrit Est (Bld) [Volume fraction] 32.0 % Low 41.0-52.0 [facility] Comment on above: Performed By: #### 5 8410-2 #### PACHECO Ferraro ([id number]) [facility] ([facility]) [address] [place] [address] 95263 Hemoglobin (Bld) [Mass/Vol] 10.5 g/dL Low 13.5-17.5 [facility] Comment on above: Performed By: #### 5 8410-2 #### PACHECO Ferraro ([id number]) [facility] ([facility]) [address] [place] [address] 80999 Inhaled oxygen concentration 50 % Normal [facility] Comment on above: Performed By: #### 5 8410-2 #### PACHECO Ferraro ([id number]) [facility] ([facility]) [address] [place] [address] 39769 Lactate (BldA) [Moles/Vol] 2.0 mmol/L Normal 0.4-2.0 [facility] Comment on above: Performed By: #### 5 8410-2 #### PACHECO Ferraro ([id number]) [facility] ([facility]) [address] [place] [address] 19546 Oxygen (Bld) [Partial pressure] 202 mm Hg High 85-95 [facility] Comment on above: Performed By: #### 5 8410-2 #### PACHECO Ferraro ([id number]) [facility] ([facility]) [address] [place] [address] 44466 Oxyhemoglobin (BldA) [Mass fraction] 97.7 % Normal 94.0-98.0 [facility] Comment on above: Performed By: #### 5 8410-2 #### PACHECO Ferraro ([id number]) [facility] ([facility]) [address] [place] [address] 99169 pH (Bld) 7.37 [pH] Low 7.38-7.42 [facility] Comment on above: Performed By: #### 5 8410-2 #### PACHECO Ferraro ([id number]) [facility] ([facility]) [address] [place] [address] 25645 Potassium (BldA) [Moles/Vol] 3.1 mmol/L Low 3.5-5.3 [facility] Comment on above: Performed By: #### 5 8410-2 #### PACHECO Ferraro ([id number]) [facility] ([facility]) [address] [place] [address] Sodium (BldA) [Moles/Vol] 136 mmol/L Normal 136-145 [facility] Comment on above: Performed By: #### 5 8410-2 #### PACHECO Ferraro ([id number]) [facility] ([facility]) [address] [place] [address] Anion gap 4 (BldA) [Moles/Vol] 13 [facility] Base excess Calc (Bld) [Moles/Vol] -3.6000 mmol/L Low -2.0 - 3.0 mmol/L [facility] Calcium.ionized (BldA) [Moles/Vol] 1.17 mmol/L 1.10 - 1.33 mmol/L [facility] Chloride (BldA) [Moles/Vol] 106 mmol/L 98 - 107 mmol/L [facility] CO2 (Bld) [Partial pressure] 38 mm[Hg] [facility] Glucose [Mass/Vol] 229 mg/dL High 74 - 99 mg/dL Uni [facility] HCO3 (Bld) [Moles/Vol] 21.5 mmol/L Low 22.0 - 26.0 mmol/L [facility] Hematocrit Est (Bld) [Volume fraction] 32.0 % Low 41.0 - 52.0 % [facility] Hemoglobin (Bld) [Mass/Vol] 10.7 g/dL Low 13.5 - 17.5 g/dL [facility] Inhaled oxygen concentration 50 % [facility] Interpretation and review of laboratory results Abnormal [facility] Lactate (BldA) [Moles/Vol] 1.9 mmol/L 0.4 - 2.0 mmol/L [facility] Oxygen (Bld) [Partial pressure] 197 mm[Hg] High [facility] Oxyhemoglobin (BldA) [Mass fraction] 97.9 % 94.0 - 98.0 % [facility] pH (Bld) 7.36 [pH] Low 7.38 - 7.42 pH [facility] Potassium (BldA) [Moles/Vol] 3.6 mmol/L 3.5 - 5.3 mmol/L [facility] Sodium (BldA) [Moles/Vol] 137 mmol/L 136 - 145 mmol/L [facility] Anion gap 4 (BldA) [Moles/Vol] 13 mmo/L Normal 10-25 [facility] Comment on above: Performed By: #### 9 3685-6 #### PACHECO Ferraro ([id number]) [facility] ([facility]) [id number] [place] [address] 80502 Base excess Calc (Bld) [Moles/Vol] -3.6000 mmol/L Low -2.0-3.0 [facility] Comment on above: Performed By: #### 9 3685-6 #### PACHECO Ferraro ([id number]) [facility] ([facility]) [id number] [place] [address] 04348 Calcium.ionized (BldA) [Moles/Vol] 1.17 mmol/L Normal 1.10-1.33 [facility] Comment on above: Performed By: #### 9 3685-6 #### PACHECO Ferraro ([id number]) [facility] ([facility]) [id number] [place] [address] 26022 Chloride (BldA) [Moles/Vol] 106 mmol/L Normal 98-107 [facility] Comment on above: Performed By: #### 9 3685-6 #### PACHECO Ferraro ([id number]) [facility] ([facility]) [id number] [place] [address] 71315 CO2 (Bld) [Partial pressure] 38 mm Hg Normal 38-42 [facility] Comment on above: Performed By: #### 9 3685-6 #### PACHECO Ferraro ([id number]) [facility] ([facility]) [id number] [place] [address] 30455 Glucose [Mass/Vol] 229 mg/dL High 74-99 [facility] Comment on above: Performed By: #### 9 3685-6 #### PACHECO Ferraro ([id number]) [facility] ([facility]) [id number] [place] [address] 35748 HCO3 (Bld) [Moles/Vol] 21.5 mmol/L Low 22.0-26.0 [facility] Comment on above: Performed By: #### 9 3685-6 #### PACHECO Ferraro ([id number]) [facility] ([facility]) [address] [place] [address] 61461 Hematocrit Est (Bld) [Volume fraction] 32.0 % Low 41.0-52.0 [facility] Comment on above: Performed By: #### 9 3685-6 #### PACHECO Ferraro ([id number]) [facility] ([facility]) [address] [place] [address] 08955 Hemoglobin (Bld) [Mass/Vol] 10.7 g/dL Low 13.5-17.5 [facility] Comment on above: Performed By: #### 9 3685-6 #### PACHECO Ferraro ([id number]) [facility] ([facility]) [address] [place] [address] 26927 Inhaled oxygen concentration 50 % Normal [facility] Comment on above: Performed By: #### 9 1525-6 #### PACHECO Ferraro ([id number]) [facility] ([facility]) [address] [place] [address] 00557 Lactate (BldA) [Moles/Vol] 1.9 mmol/L Normal 0.4-2.0 [facility] Comment on above: Performed By: #### 9 3685-6 #### PACHECO Ferraro ([id number]) [facility] ([facility]) [address] [place] [address] 01184 Oxygen (Bld) [Partial pressure] 197 mm Hg High 85-95 [facility] Comment on above: Performed By: #### 9 3685-6 #### PACHECO Ferraro ([id number]) [facility] ([facility]) [address] [place] [address] 88683 Oxyhemoglobin (BldA) [Mass fraction] 97.9 % Normal 94.0-98.0 [facility] Comment on above: Performed By: #### 9 3685-6 #### PACHECO Ferraro ([id number]) [facility] ([facility]) [address] [place] [address] 44007 pH (Bld) 7.36 [pH] Low 7.38-7.42 [facility] Comment on above: Performed By: #### 9 3685-6 #### PACHECO Ferraro ([id number]) [facility] ([facility]) [address] [place] [address] 12344 Potassium (BldA) [Moles/Vol] 3.6 mmol/L Normal 3.5-5.3 [facility] Comment on above: Performed By: #### 9 3685-6 #### PACHECO Ferraro ([id number]) [facility] ([facility]) [address] [place] [address] 95013 Sodium (BldA) [Moles/Vol] 137 mmol/L Normal 136-145 [facility] Comment on above: Performed By: #### 9 3685-6 #### PACHECO Ferraro ([id number]) [facility] ([facility]) [address] [place] [address] 61989 Anion gap 4 (BldA) [Moles/Vol] 10 [facility] Base excess Calc (Bld) [Moles/Vol] -1.3000 mmol/L -2.0 - 3.0 mmol/L [facility] Calcium.ionized (BldA) [Moles/Vol] 1.15 mmol/L 1.10 - 1.33 mmol/L [facility] Chloride (BldA) [Moles/Vol] 106 mmol/L 98 - 107 mmol/L [facility] CO2 (Bld) [Partial pressure] 40 mm[Hg] [facility] Glucose [Mass/Vol] 224 mg/dL High 74 - 99 mg/dL [facility] HCO3 (Bld) [Moles/Vol] 23.7 mmol/L 22.0 - 26.0 mmol/L [facility] Hematocrit Est (Bld) [Volume fraction] 36.0 % Low 41.0 - 52.0 % [facility] Hemoglobin (Bld) [Mass/Vol] 12.0 g/dL Low 13.5 - 17.5 g/dL [facility] Inhaled oxygen concentration 50 % [facility] Interpretation and review of laboratory results Abnormal [facility] Lactate (BldA) [Moles/Vol] 1.4 mmol/L 0.4 - 2.0 mmol/L [facility] Oxygen (Bld) [Partial pressure] 197 mm[Hg] High [facility] Oxyhemoglobin (BldA) [Mass fraction] 98.4 % High 94.0 - 98.0 % [facility] pH (Bld) 7.38 [pH] 7.38 - 7.42 pH [facility] Potassium (BldA) [Moles/Vol] 4.1 mmol/L 3.5 - 5.3 mmol/L [facility] Sodium (BldA) [Moles/Vol] 136 mmol/L 136 - 145 mmol/L [facility] Anion gap 4 (BldA) [Moles/Vol] 10 mmo/L Normal 10-25 [facility] Comment on above: Performed By: #### 9 3685-6 #### PACHECO Ferraro ([id number]) [facility] ([facility]) [address] [place] [address] 09498 Base excess Calc (Bld) [Moles/Vol] -1.3000 mmol/L Normal -2.0-3.0 [facility] Comment on above: Performed By: #### 9 3685-6 #### PACHECO Ferraro ([id number]) [facility] ([facility]) [address] [place] [address] 64533 Calcium.ionized (BldA) [Moles/Vol] 1.15 mmol/L Normal 1.10-1.33 [facility] Comment on above: Performed By: #### 9 3685-6 #### PACHECO Ferraro ([id number]) [facility] ([facility]) [address] [place] [address] 48720 Chloride (BldA) [Moles/Vol] 106 mmol/L Normal 98-107 [facility] Comment on above: Performed By: #### 9 3685-6 #### PACHECO Ferraro ([id number]) [facility] ([facility]) [id number] [place] [address] 08519 CO2 (Bld) [Partial pressure] 40 mm Hg Normal 38-42 [facility] Comment on above: Performed By: #### 9 3685-6 #### PACHECO Ferraro ([id number]) [facility] ([facility]) [address] [place] [address] 65847 Glucose [Mass/Vol] 224 mg/dL High 74-99 [facility] Comment on above: Performed By: #### 9 3685-6 #### PACHECO Ferraro ([id number]) [facility] ([facility]) [address] [place] [address] 83197 HCO3 (Bld) [Moles/Vol] 23.7 mmol/L Normal 22.0-26.0 [facility] Comment on above: Performed By: #### 9 3685-6 #### PACHECO Ferraro ([id number]) [facility] ([facility]) [address] [place] [address] 96168 Hematocrit Est (Bld) [Volume fraction] 36.0 % Low 41.0-52.0 [facility] Comment on above: Performed By: #### 9 3685-6 #### PACHECO Ferraro ([id number]) [facility] ([facility]) [address] [place] [address] 50421 Hemoglobin (Bld) [Mass/Vol] 12.0 g/dL Low 13.5-17.5 [facility] Comment on above: Performed By: #### 9 3685-6 #### PACHECO Ferraro ([id number]) [facility] ([facility]) [address] [place] [address] 83482 Inhaled oxygen concentration 50 % Normal [facility] Comment on above: Performed By: #### 9 3685-6 #### PACHECO Ferraro ([id number]) [facility] ([facility]) [address] [place] [address] 92547 Lactate (BldA) [Moles/Vol] 1.4 mmol/L Normal 0.4-2.0 [facility] Comment on above: Performed By: #### 9 3685-6 #### PACHECO Ferraro ([id number]) [facility] ([facility]) [address] [place] [address] 02978 Oxygen (Bld) [Partial pressure] 197 mm Hg High 85-95 [facility] Comment on above: Performed By: #### 9 3685-6 #### PACHECO Ferraro ([id number]) [facility] ([facility]) [address] [place] [address] 26348 Oxyhemoglobin (BldA) [Mass fraction] 98.4 % High 94.0-98.0 [facility] Comment on above: Performed By: #### 9 3685-6 #### PACHECO Ferraro ([id number]) [facility] ([facility]) [address] [place] [address] 70830 pH (Bld) 7.38 [pH] Normal 7.38-7.42 [facility] Comment on above: Performed By: #### 9 9875-6 #### PACHECO Ferraro ([id number]) [facility] ([facility]) [address] [place] [address] 56492 Potassium (BldA) [Moles/Vol] 4.1 mmol/L Normal 3.5-5.3 [facility] Comment on above: Performed By: #### 9 3685-6 #### PACHECO Ferraro ([id number]) [facility] ([facility]) [address] [place] [address] 38128 Sodium (BldA) [Moles/Vol] 136 mmol/L Normal 136-145 [facility] Comment on above: Performed By: #### 9 3685-6 #### PACHECO Ferraro ([id number]) [facility] ([facility]) [address] [place] [address] 09442 Anion gap 4 (BldA) [Moles/Vol] 11 [facility] Base excess Calc (Bld) [Moles/Vol] -2.3000 mmol/L Low -2.0 - 3.0 mmol/L [facility] Calcium.ionized (BldA) [Moles/Vol] 1.20 mmol/L 1.10 - 1.33 mmol/L [facility] Chloride (BldA) [Moles/Vol] 105 mmol/L 98 - 107 mmol/L [facility] CO2 (Bld) [Partial pressure] 38 mm[Hg] [facility] Glucose [Mass/Vol] 145 mg/dL High 74 - 99 mg/dL Uni [facility] HCO3 (Bld) [Moles/Vol] 22.5 mmol/L 22.0 - 26.0 mmol/L [facility] Hematocrit Est (Bld) [Volume fraction] 37.0 % Low 41.0 - 52.0 % [facility] Hemoglobin (Bld) [Mass/Vol] 12.4 g/dL Low 13.5 - 17.5 g/dL [facility] Inhaled oxygen concentration 50 % [facility] Interpretation and review of laboratory results Abnormal [facility] Lactate (BldA) [Moles/Vol] 1.1 mmol/L 0.4 - 2.0 mmol/L [facility] Oxygen (Bld) [Partial pressure] 209 mm[Hg] High [facility] Oxyhemoglobin (BldA) [Mass fraction] 98.0 % 94.0 - 98.0 % [facility] pH (Bld) 7.38 [pH] 7.38 - 7.42 pH [facility] Potassium (BldA) [Moles/Vol] 2.9 mmol/L Critically low 3.5 - 5.3 mmol/L [facility] Sodium (BldA) [Moles/Vol] 136 mmol/L 136 - 145 mmol/L [facility] Anion gap 4 (BldA) [Moles/Vol] 11 mmo/L Normal 10-25 [facility] Comment on above: Performed By: #### 9 3685-6 #### PACHECO Ferraro ([id number]) [facility] ([facility]) [address] [place] [address] Base excess Calc (Bld) [Moles/Vol] -2.3000 mmol/L Low -2.0-3.0 [facility] Comment on above: Performed By: #### 9 3685-6 #### PACHECO Ferraro ([id number]) [facility] ([facility]) [address] [place] [address] Calcium.ionized (BldA) [Moles/Vol] 1.20 mmol/L Normal 1.10-1.33 [facility] Comment on above: Performed By: #### 9 3685-6 #### PACHECO Ferraro ([id number]) [facility] ([facility]) [id number] [place] [address] 08472 Chloride (BldA) [Moles/Vol] 105 mmol/L Normal 98-107 [facility] Comment on above: Performed By: #### 9 3685-6 #### PACHECO Ferraro ([id number]) [facility] ([facility]) [id number] [place] [address] 05832 CO2 (Bld) [Partial pressure] 38 mm Hg Normal 38-42 [facility] Comment on above: Performed By: #### 9 3685-6 #### PACHECO Ferraro ([id number]) [facility] ([facility]) [id number] [place] [address] 60724 Glucose [Mass/Vol] 145 mg/dL High 74-99 [facility] Comment on above: Performed By: #### 9 3685-6 #### PACHECO Ferraro ([id number]) [facility] ([facility]) [id number] [place] [address] 07632 HCO3 (Bld) [Moles/Vol] 22.5 mmol/L Normal 22.0-26.0 [facility] Comment on above: Performed By: #### 9 3685-6 #### PACHECO Ferraro ([id number]) [facility] ([facility]) [id number] [place] [address] 84652 Hematocrit Est (Bld) [Volume fraction] 37.0 % Low 41.0-52.0 [facility] Comment on above: Performed By: #### 9 3685-6 #### PACHECO Ferraro ([id number]) [facility] ([facility]) [address] [place] [address] 90176 Hemoglobin (Bld) [Mass/Vol] 12.4 g/dL Low 13.5-17.5 [facility] Comment on above: Performed By: #### 9 5465-6 #### PACHECO Ferraro ([id number]) [facility] ([facility]) [address] [place] [address] 93296 Inhaled oxygen concentration 50 % Normal [facility] Comment on above: Performed By: #### 9 3685-6 #### PACHECO Ferraro ([id number]) [facility] ([facility]) [address] [place] [address] 79136 Lactate (BldA) [Moles/Vol] 1.1 mmol/L Normal 0.4-2.0 [facility] Comment on above: Performed By: #### 9 2335-6 #### PACHECO Ferraro ([id number]) [facility] ([facility]) [address] [place] [address] 80222 Oxygen (Bld) [Partial pressure] 209 mm Hg High 85-95 [facility] Comment on above: Performed By: #### 9 3685-6 #### PACHECO Ferraro ([id number]) [facility] ([facility]) [address] [place] [address] 83423 Oxyhemoglobin (BldA) [Mass fraction] 98.0 % Normal 94.0-98.0 [facility] Comment on above: Performed By: #### 9 3685-6 #### PACHECO Ferraro ([id number]) [facility] ([facility]) [address] [place] [address] 78254 pH (Bld) 7.38 [pH] Normal 7.38-7.42 [facility] Comment on above: Performed By: #### 9 9485-6 #### PACHECO Ferraro ([id number]) [facility] ([facility]) [id number] [place] [id number] Potassium (BldA) [Moles/Vol] 2.9 mmol/L Critically low 3.5-5.3 [facility] Comment on above: Performed By: #### 9 3685-6 #### PACHECO Ferraro ([id number]) [facility] ([facility]) [address] [place] [address] 01890 Sodium (BldA) [Moles/Vol] 136 mmol/L Normal 136-145 [facility] Comment on above: Performed By: #### 9 3685-6 #### PACHECO Ferraro ([id number]) [facility] ([facility]) [address] [place] [address] 99482 Glucose Test strip manual (B ld) [Mass/Vol]on 06-01-2023 Glucose [Mass/Vol] 178 mg/dL High 74 - 99 mg/dL [facility] Interpretation and review of laboratory results Abnormal [facility] Glucose [Mass/Vol] 178 mg/dL High 74-99 [facility] Comment on above: Performed By: #### 5 8410-2 #### PACHECO Ferraro ([id number]) [facility] ([facility]) [address] [place] [address] 38439 Glucose [Mass/Vol] 99 mg/dL 74 - 99 mg/dL [facility] Interpretation and review of laboratory results Normal [facility] Glucose [Mass/Vol] 99 mg/dL Normal 74-99 [facility] Comment on above: Performed By: #### 2 341-6 #### PACHECO Ferraro ([id number]) [facility] ([facility]) [address] [place] [address] 96239 Magnesiumon 06-01-2023 Magnesium [Mass/Vol] 1.74 mg/dL 1.60 - 2.40 mg/dL [facility] Magnesium [Mass/Vol] 1.74 mg/dL Normal 1.60-2.40 [facility] Comment on above: Performed By: #### 5 8410-2 #### PACHECO Ferraro ([id number]) [facility] ([facility]) [id number] [place] [address] 36611 Magnesium [Mass/Vol]on 05-31 Interpretation and review of laboratory results Normal [facility] VERAB/VERIFY ABORHon 024 ABO group Nom (Bld) O Normal [facility] Comment on above: Performed By: #### V ERAB #### PACHECO Ferraro ([id number]) [facility] ([facility]) [id number] [place], [place] [id number] D Ag Ql (Bld) Negative [facility] Comment on above: Performed By: #### V ERAB #### PACHECO Ferraro ([id number]) [facility] ([facility]) [id number] [place] [address] 36178 Verify ABO/Rh Group Test (VE RAB)on 06-01-2023 ABO group Nom (Bld) O [facility] D Ag Ql (Bld) Negative [facility] XR tomography Unspecified yaneli dy regionon 06-01-2023 These images are not reportable by radiology and will not be interpreted by Radiologists. IMAGING These images are not reportable by radiology and will not be interpreted by Radiologists. IMAGING No Panel InformationOrdered By: Antione Hong on 05-18-2023 Atrial Rate 73 BPM [facility] Work Phone: [phone] P [place] 2 degrees [facility] Work Phone: [phone] P Offset 186 ms [facility] Work Phone: [phone] P Onset 141 ms [facility] Work Phone: [phone] NM Interval 144 ms [facility] Work Phone: [phone] Q Onset 213 ms [facility] Work Phone: [phone] QRS Count 12 beats [facility] Work Phone: [phone] QRS Duration 86 ms [facility] Work Phone: [phone] QT Interval 376 ms [facility] Work Phone: QTC Calculation(Bazett) 414 ms [facility] Work Phone: QTC Fredericia 401 [facility] Work Phone: R [place] -20 degrees [facility] Work Phone: T [place] 15 degrees [facility] Work Phone: T Offset 401 ms [facility] Work Phone: Ventricular Rate 73 BPM [facility] Work Phone: [facility] Work Phone: No Panel Informationon 05-18 Normal sinus rhythm Nonspecific T wave abnormality No previous ECGs available Confirmed by Antione Hong ([id number]) on 05/18/2023 4:34:09 PM Antione Thakkar MD - 05/18/2023 Normal sinus rhythm Nonspecific T wave abnormality No previous ECGs available Confirmed by Antione Hong ([id number]) on 05/18/2023 4:34:09 PM [facility] Work Phone: Basic metabolic 2000 panelon 05-17-2023 Anion gap [Moles/Vol] 15 mmol/L Normal 10-20 [facility] Comment on above: Performed By: #### 2 4321-2 #### PACHECO Ferraro ([id number]) [facility] ([facility]) [address] [place] [address] 47671 Calcium [Mass/Vol] 10.1 mg/dL Normal 8.6-10.6 [facility] Comment on above: Performed By: #### 2 4321-2 #### PACHECO Ferrrao ([id number]) [facility] ([facility]) [id number] [place] [address] 82565 Chloride [Moles/Vol] 107 mmol/L Normal 98-107 [facility] Comment on above: Performed By: #### 2 4321-2 #### PACHECO Ferraro ([id number]) [facility] ([facility]) [address] [place] [address] CO2 [Moles/Vol] 23 mmol/L Normal 21-32 [facility] Comment on above: Performed By: #### 2 4321-2 #### PACHECO Ferraro ([id number]) [facility] ([facility]) [address] [place] [address] 75392 Creatinine [Mass/Vol] 0.73 mg/dL Normal 0.50-1.30 [facility] Comment on above: Performed By: #### 2 4321-2 #### PACHECO Ferraro ([id number]) [facility] ([facility]) [address] [place] [address] 70237 GFR/1.73 sq M.predicted MDRD (S/P/Bld) [Vol rate/Area] mL/min/{1.73_m2} Normal >60 [facility] Comment on above: Result Comment: Calc ulations of estimated GFR are performed using the 2020 CKD-EPI Study Refit equation without the race variable for the IDMS-Traceable creatinine methods. https://jasn.asnjournals.org/content/early//ASN.15837 45236 Performed By: #### 2 4321-2 #### PACHECO Ferraro ([id number]) [facility] ([facility]) [address] [place] [address] 87061 Glucose [Mass/Vol] 89 mg/dL Normal 74-99 [facility] Comment on above: Performed By: #### 2 4321-2 #### PACHECO Ferraro ([id number]) [facility] ([facility]) [address] [place] [address] 56842 Potassium [Moles/Vol] 3.9 mmol/L Normal 3.5-5.3 [facility] Comment on above: Performed By: #### 2 4321-2 #### APCHECO Ferraro ([id number]) [facility] ([facility]) [address] [place] [address] Sodium [Moles/Vol] 141 mmol/L Normal 136-145 [facility] Comment on above: Performed By: #### 2 4321-2 #### PACHECO Ferraro ([id number]) [facility] ([facility]) [id number] [place] [address] 86097 Urea nitrogen [Mass/Vol] 13 mg/dL Normal 6-23 [facility] Comment on above: Performed By: #### 2 4321-2 #### PACHECO Ferraro ([id number]) [facility] ([facility]) [address] [place] [address] 70778 Blood type and Indirect anti body screen panel (Bld)on 05-17-2023 ABO group Nom (Bld) O Normal [facility] Comment on above: Performed By: #### 3 4532-2 #### PACHECO Ferraro ([id number]) [facility] ([facility]) [id number] [place] [address] 83162 Blood group antibody screen Ql Negative Normal [facility] Comment on above: Performed By: #### 3 4532-2 #### PACHECO Ferraro ([id number]) [facility] ([facility]) [address] [place] [address] 13406 D Ag Ql (Bld) Negative [facility] Comment on above: Result Comment: 2nd ABO test required. Order and Collect VERAB Performed By: #### 3 4532-2 #### PACHECO Ferraro ([id number]) [facility] ([facility]) [address] [place] [address] 68830 CBC panel Auto (Bld)on 05-17 Erythrocyte distribution width (RBC) [Ratio] 14.4 % Normal 11.5-14.5 [facility] Comment on above: Performed By: #### 5 8410-2 #### PACHECO Ferraro ([id number]) [facility] ([facility]) [id number] [place] [address] 44321 Hematocrit (Bld) [Volume fraction] 42.8 % Normal 41.0-52.0 [facility] Comment on above: Performed By: #### 5 8410-2 #### PACHECO Ferraro ([id number]) [facility] ([facility]) [address] [place] [address] 60177 Hemoglobin (Bld) [Mass/Vol] 14.3 g/dL Normal 13.5-17.5 [facility] Comment on above: Performed By: #### 5 8410-2 #### PACHECO Ferraro ([id number]) [facility] ([facility]) [address] [place] [address] 49803 MCH (RBC) [Entitic mass] 29.3 pg Normal 26.0-34.0 [facility] Comment on above: Performed By: #### 5 8410-2 #### PACHECO Ferraro ([id number]) [facility] ([facility]) [address] [place] [address] 26045 MCHC (RBC) [Mass/Vol] 33.4 g/dL Normal 32.0-36.0 [facility] Comment on above: Performed By: #### 5 8410-2 #### PACHECO Ferraro ([id number]) [facility] ([facility]) [address] [place] [address] 22315 MCV (RBC) [Entitic vol] 88 fL Normal 80-100 [facility] Comment on above: Performed By: #### 5 8410-2 #### PACHECO Ferraro ([id number]) [facility] ([facility]) [address] [place] [address] 52775 Nucleated RBC/100 WBC (Bld) [Ratio] 0.0 /100 WBCs Normal 0.0-0.0 [facility] Comment on above: Performed By: #### 5 8410-2 #### PACHECO Ferraro ([id number]) [facility] ([facility]) [address] [place] [address] 17934 Platelets (Bld) [#/Vol] 287 x10*3/uL Normal 150-450 [facility] Comment on above: Performed By: #### 5 8410-2 #### PACHECO Ferraro ([id number]) [facility] ([facility]) [address] [place], [place] [phone] RBC (Bld) [#/Vol] 4.88 x10*6/uL Normal 4.50-5.90 [facility] Comment on above: Performed By: #### 5 8410-2 #### PACHECO Ferraro ([id number]) [facility] ([facility]) [address] [place] [address] WBC (Bld) [#/Vol] 6.6 x10*3/uL Normal 4.4-11.3 [facility] Comment on above: Performed By: #### 5 8410-2 #### PACHECO Ferraro ([id number]) [facility] ([facility]) [address] [place] [address] ECG 12-LEADon 05-17-2023 ECG 12-LEAD Ventricular Rate 73 Atrial Rate 73 P-R Interval 144 QRS Duration 86 Q-T Interval 376 QTC Calculation(Bazett) 414 P Wewoka 2 R Wewoka -20 T Wewoka 15 QRS Count 12 Q Onset 213 P Onset 141 P Offset 186 T Offset 401 QTC Fredericia 401 Diagnosis Normal sinus rhythm Nonspecific T wave abnormality No previous ECGs available Confirmed by Antione Hong ([id number]) on 05/18/2023 4:34:09 PM Normal [facility] Staphylococcus aureus.methic illin resistant isolateon 05-17-2023 MRSA isol Org specific cx Ql (Nose) Test: Staphylococcus aureus/MRSA colonization, Culture Specimen Source: Anterior Nares Specimen Type: Swab Specimen Date: 05/17/2023 1:43 PM Result Date: 05/19/2023 8:32 AM Result Status: Final result Abnormal: Yes Resulting Lab: [facility] [address] [place] [address] CULTURE Isolated: Methicillin Susceptible Staphylococcus aureus (MSSA) (Abnormal) Abnormal [facility] Comment on above: Performed By: #### 5 2969-3 #### PACHECO Ferraro ([id number]) [facility] ([facility]) [address] [place] [phone] HbA1c (Bld) [Mass fraction]o n 04-24-2023 Average glucose Estimated from glycated hemoglobin (Bld) [Mass/Vol] 148 mg/dL Normal Not Established [facility] Comment on above: Order Comment: Diagn osis of Diabetes-Adults Non-Diabetic: < or = 5.6% Increased risk for developing diabetes: 5.7-6.4% Diagnostic of diabetes: > or = 6.5% Monitoring of Diabetes Age (y)....................... Therapeutic Goal (%) Adults: >18.........................<7.0 Pediatrics: 13-18...................<7.5 Pediatrics: 7-12....................<8.0 Pediatrics: 0-6..................... 7.5-8.5 [employer]. Diabetes Care 33(S1)Mar 2009 Performed By: #### 4 548-4 #### PACHECO Ferraro ([id number]) [facility] ([facility]) [address] [place], [place] [phone] Hemoglobin A1c/Hemoglobin.to kacey 04-24-2023 HbA1c (Bld) [Mass fraction] 6.8 % High see below [facility] Comment on above: Order Comment: Diagn osis of Diabetes-Adults Non-Diabetic: < or = 5.6% Increased risk for developing diabetes: 5.7-6.4% Diagnostic of diabetes: > or = 6.5% Monitoring of Diabetes Age (y)....................... Therapeutic Goal (%) Adults: >18.........................<7.0 Pediatrics: 13-18...................<7.5 Pediatrics: 7-12....................<8.0 Pediatrics: 0-6..................... 7.5-8.5 [employer]. Diabetes Care 33(S1), Mar 2009 Performed By: #### 4 548-4 #### PACHECO Ferraro ([id number]) [facility] ([facility]) [address] [place] [address] XR SCOLIOSIS 2 VIEW (NON EOS )on 04-24-2023 XR SCOLIOSIS 2 VIEW (NON EOS) Interpreted By: Austen Bass, STUDY: XR SCOLIOSIS 2 VIEW (NON EOS); ; 04/24/2023 11:15 am INDICATION: Signs/Symptoms:alig nment. COMPARISON: MRI dated 12/15/2022 ACCESSION NUMBER(S): [id number] ORDERING CLINICIAN: BARB PUTNAM FINDINGS: Two views of the whole spine. No acute fracture. No focal subluxation. Advanced lower lumbar degenerative change with discogenic degenerative changes and facet hypertrophy. Multilevel disc height loss is evident, most pronounced at L3-L4 and L4-L5. There is lumbar levocurvature centered at L3. Mild additional polyarticular osteoarthrosis. The soft tissues are unremarkable. IMPRESSION: Advanced lower lumbar spondylosis. Lumbar levocurvature. MACRO: None Signed by: Austen Bass 04/30/2023 10:14 AM Dictation workstation: [id number] [facility] MR lumbar spine wo conon MR lumbar spine wo con [facility] [place] [address] [place] [address] MRI Report Signed Patient: Melvin Baer MR#: [id number] : 1960 Acct:[id number] Age/Sex: 62 / M ADM Date: 12/15/22 Loc: [facility] Room: Type: [facility] Attending Dr: Sully Barney NP Copies to: Sully Barney NP Ordering Provider: Sully Barney NP Date of Service: 09/22/23 MR/MR lumbar spine wo con: Lumbar radiculopathy MR lumbar spine wo con 12/15/2022 11:45 AM SIGNS AND SYMPTOMS: Low back pain, left lower extremity radiculopathy PROTOCOL: Multiplanar multisequence MR images of the lumbar spine were obtained without IV contrast COMPARISON: 10/16/2022 and 10/02/2018 FINDINGS: The bones of the lumbar spine are in anatomic alignment. There is preservation of vertebral body heights. There is moderate severe disc height loss at L3-4, L4-5, and L5-S1. There is mild disc height loss at L1-L2 and L2-L3. Modic type II fatty endplate degenerative changes are noted at L3-L4, L4-5, and L5-S1. The conus terminates at the mid L1 vertebral body level. No epidural or paraspinous fluid collection is appreciated. At T12-L1: There is a normal disc, central canal, and neural foramen. At L1-L2: There is a broad-based disc bulge with facet hypertrophy. There is mild spinal canal narrowing without significant neural foraminal narrowing. This is unchanged. At L2-L3: There is a broad-based disc bulge with facet hypertrophy. There is mild spinal canal stenosis. There is moderate to severe left and moderate right neural foraminal narrowing. This is unchanged. At L3-L4: There there is a circumferential disc bulge. There is facet hypertrophy with a small facet effusion on the right. There is an internal synovial cyst extending into the posterior lateral aspect of the thecal sac measuring 5 mm in greatest dimension. This contributes to severe spinal canal stenosis. The nerve roots of the cauda equina are redundant above this level suggesting mass effect on the traversing nerve roots. This is worse when compared to the prior study. There is also moderate to severe bilateral neural foraminal narrowing with mass effect on the exiting right L3 nerve roots. This is similar to the prior exam. At L4-L5: There is a circumferential disc bulge with facet hypertrophy. There is severe spinal canal stenosis which is slightly worse when compared to the prior exam. There is a right central and subarticular disc extrusion with cranial migration which is new. This contributes to severe right neural foraminal narrowing. There is moderate to severe left neural foraminal narrowing. There is mass effect on the exiting L4 nerve roots, right greater than left which is worse when compared to the prior exam. At L5-S1: There is a broad-based disc bulge with facet hypertrophy left greater than right. There is moderate spinal canal narrowing with mild mass effect on the traversing left S1 nerve roots. This is worse when compared to the prior exam. There is moderate to severe left and moderate right neural foraminal narrowing. There is mass effect on the exiting left L5 nerve roots, similar to the prior study. MR/MR lumbar spine wo con IMPRESSION: Worsening spinal canal and neural foraminal narrowing is noted secondary to disc and facet degenerative change at L3-L4, L4-5, and L5-S1. See above. Additional degenerative changes are redemonstrated at L1-L2 and L2-L3 without significant interval disease progression. Impression dictated by: Prakash Zavala M.D.12/15/2022 3:12 PM Dictation Location: [place] [address] Transcribed By: [facility] 12/15/22 1512 Dictated By: Prakash Zavala II, MD 12/15/22 1500 Signed By: 12/15/22 1512 Normal [facility] XR hip RT min 2V(w/wo pelvis )*on 10-16-2022 XR hip RT min 2V(w/wo pelvis)* [facility] [place] [address] [place] [address] XRay Report Signed Patient: Melvin Baer MR#: [id number] : 1960 Acct:[id number] Age/Sex: 62 / M ADM Date: 10/16/22 Loc: XD Room: Type: [facility] Attending Dr: Abel Sandoval MD Copies to: Abel Sandoval MD Ordering Provider: Abel Sandoval MD Date of Service: 10/16/22 XR/XR hip RT min 2V(w/wo pelvis)*: Right hip pain 2 views RIGHT plain film COMPARISON: None HISTORY: Low back pain with radiation to the RIGHT hip for 4 years. ACUTE FINDINGS: No acute findings. Similar bony density adjacent to the posterior lateral aspect of the acetabulum. DEGENERATIVE CHANGE: Unremarkable SOFT TISSUE FINDINGS: Unremarkable JOINT EFFUSION: None POSTOP CHANGES: None BONY MINERALIZATION: Adequate XR/XR hip RT min 2V(w/wo pelvis)* IMPRESSION: No acute findings. No degeneration. Stable findings Impression dictated by: Raulito Abbasi M.D.10/16/2022 2:39 PM Dictation Location: [place] [address] Transcribed By: [facility] 10/16/221438 Dictated By: Raulito Abbasi DO 10/16/22 143 Signed By: 10/16/22 143 [facility] XR lumbar spine AP/LAT/FLX/E XTon 10-16-2022 XR lumbar spine AP/LAT/FLX/EXT [facility] [place] [address] [place] [address] XRay Report Signed Patient: Melvin Baer MR#: [id number] : 1960 Acct:[id number] Age/Sex: 62 / M ADM Date: 10/16/22 Loc: XD Room: Type: [facility] Attending Dr: Abel Sandoval MD Copies to: Abel Sandoval MD Ordering Provider: Abel Sandoval MD Date of Service: 10/16/22 XR/XR lumbar spine AP/LAT/FLX/EXT: Lumbar radiculopathy LUMBAR SPINE - 4 views CLINICAL HISTORY: Low back pain that radiates into right hip for 4 years. COMPARISON: None FINDINGS: Levoscoliosis is noted. Diffuse endplate and facet joint degenerative changes with moderate disc space narrowing L3-L4, L4-L5 and L5-S1. No pathological motion on flexion or extension views. XR/XR lumbar spine AP/LAT/FLX/EXT IMPRESSION: DEGENERATIVE CHANGES INVOLVING THE LUMBAR SPINE WITH MODERATE DISC SPACE NARROWING L3-S1. Impression dictated by: Roberto [place] Jr., D.OAmy10/16/2022 2:44 PM Dictation Location: [place] [address] Transcribed By: [facility] 10/16/22 144 Dictated By: Roberto [place] Jr DO 10/16/22 144 Signed By: 10/16/22 144 [facility] CBC AUTO DIFFon 07-19-2022 BASO # 0.1 103/ul Normal 0.0-0.1 [facility] Comment on above: Performed By: #### C BC #### [facility] [address] [place] [address] [address] Mariann Odom Basophils/100 WBC (Bld) 0.9 % Normal 0.2-2.0 [facility] Comment on above: Performed By: #### C BC #### [facility] [address] [place] [address] Dr. Mariann Odom EO # 0.3 103/ul Normal 0.0-0.7 [facility] Comment on above: Performed By: #### C BC #### [facility] [address] [place] [address] Dr. Mariann Odom Eosinophils/100 WBC (Bld) 4.9 % Normal 0.9-7.0 [facility] Comment on above: Performed By: #### C BC #### [facility] [address] [place] [address] Dr. Mariann Odom Erythrocyte distribution width (RBC) [Ratio] 14.8 % Normal 11.0-15.0 [facility] Comment on above: Performed By: #### C BC #### [facility] [address] [place] [address] Dr. Mariann Odom Hematocrit (Bld) [Volume fraction] 41.5 % Critically low 42.0-54.0 [facility] Comment on above: Performed By: #### C BC #### [facility] [address] [place] [address] Dr. Mariann Odom Hemoglobin (Bld) [Mass/Vol] 13.3 g/dL Critically low 14.0-18.0 [facility] Comment on above: Performed By: #### C BC #### [facility] [address] [place] [address] Dr. Mariann Odom IG # 0.02 10e3/ul Normal 0.00-0.03 [facility] Comment on above: Performed By: #### C BC #### [facility] [address] [place] [address] Dr. Mariann Odom IG % 0.4 % Normal 0.0-0.5 [facility] Comment on above: Performed By: #### C BC #### [facility] [address] [place] [address] Dr. Mariann Odom LYMPH # 1.8 103/ul Normal 1.2-3.8 [facility] Comment on above: Performed By: #### C BC #### [facility] [address] [place] [address] Dr. Mariann Odom Lymphocytes/100 WBC (Bld) 33.1 % Normal 20.5-60.0 [facility] Comment on above: Performed By: #### C BC #### [facility] [address] [place] [address] Dr. Mariann Odom MANUAL DIFF REQ NO Normal [facility] Comment on above: Performed By: #### C BC #### [facility] [address] [place] [address] Dr. Mariann Odom MCH (RBC) [Entitic mass] 28.1 pg Normal 25.9-34.0 [facility] Comment on above: Performed By: #### C BC #### [facility] [address] [place] [address] Dr. Mariann Odom MCHC (RBC) [Mass/Vol] 32.0 g/dL Normal 29.9-35.2 [facility] Comment on above: Performed By: #### C BC #### [facility] [address] [place] [address] Dr. Mariann Odom MCV (RBC) [Entitic vol] 87.7 fL Normal 80.0-94.0 [facility] Comment on above: Performed By: #### C BC #### [facility] [address] [place] [address] Dr. Mariann Odom MONO # 0.6 103/ul Normal 0.3-0.8 [facility] Comment on above: Performed By: #### C BC #### [facility] [address] [place] [address] Dr. Mariann Odom Monocytes/100 WBC (Bld) 11.7 % Normal 1.7-12.0 [facility] Comment on above: Performed By: #### C BC #### [facility] [address] [place] [address] Dr. Mariann Odom NEUT # 2.6 103/ul Normal 1.4-6.5 [facility] Comment on above: Performed By: #### C BC #### [facility] [address] [place] [address] [address] Mariann Odom Neutrophils/100 WBC (Bld) 49.0 % Normal 43.0-75.0 [facility] Comment on above: Performed By: #### C BC #### [facility] [address] [place] [address] Dr. Mariann Odom Platelet mean volume (Bld) [Entitic vol] 11.2 fL Normal 9.5-13.5 [facility] Comment on above: Performed By: #### C BC #### [facility] [address] [place] [address] Dr. Mariann Odom PLT 301 103/ul Normal 150-450 [facility] Comment on above: Performed By: #### C BC #### [facility] [address] [place] [address] Dr. Mariann Odom RBC 4.73 106/ul Normal 4.70-6.10 [facility] Comment on above: Performed By: #### C BC #### [facility] [address] [place] [address] Dr. Mariann Odom WBC 5.3 103/ul Normal 4.0-11.0 [facility] Comment on above: Performed By: #### C BC #### [facility] [address] [place] [address] Dr. Mariann Odom PROF 14(COMP METB)on 023 Albumin [Mass/Vol] 4.0 g/dL Normal 3.4-5.0 [facility] Comment on above: Performed By: #### C MP #### [facility] [address] [place] [address] Dr. Mariann Odom Albumin/Globulin [Mass ratio] 1.0 {ratio} Normal [facility] Comment on above: Performed By: #### C MP #### [facility] [address] [place] [address] Dr. Mariann Odom ALP [Catalytic activity/Vol] 99 U/L Normal 46-116 [facility] Comment on above: Performed By: #### C MP #### [facility] [address] [place] [address] Dr. Mariann Odom ALT [Catalytic activity/Vol] 36 U/L Normal 16-63 [facility] Comment on above: Performed By: #### C MP #### [facility] [address] [place] [address] Dr. Mariann Odom Anion gap [Moles/Vol] 10.6 mmol/L Normal [facility] Comment on above: Performed By: #### C MP #### [facility] [address] [place] [address] Dr. Mariann Odom AST [Catalytic activity/Vol] 21 U/L Normal 15-37 [facility] Comment on above: Performed By: #### C MP #### [facility] [address] [place] [address] Dr. Mariann Odom Bilirubin [Mass/Vol] 0.2 mg/dL Normal 0.2-1.0 [facility] Comment on above: Performed By: #### C MP #### [facility] [address] [place] [address] Dr. Mariann Odom Calcium [Mass/Vol] 9.6 mg/dL Normal 8.5-10.1 [facility] Comment on above: Performed By: #### C MP #### [facility] [address] [place] [address] Dr. Mariann Odom Chloride [Moles/Vol] 102 mmol/L Normal 98-107 [facility] Comment on above: Performed By: #### C MP #### [facility] [address] [place] [address] Dr. Mariann Odom CO2 [Moles/Vol] 30.5 mmol/L Normal 21.0-32.0 [facility] Comment on above: Performed By: #### C MP #### [facility] [address] [place] [address] Dr. Mariann dOom Creatinine [Mass/Vol] 0.93 mg/dL Normal 0.70-1.30 [facility] Comment on above: Performed By: #### C MP #### [facility] [address] [address] [address] Mariann Odom EGFR-AF JAPANESE >60 Normal >=60 [facility] Comment on above: Performed By: #### C MP #### [facility] [address] [address] [address] Mariann Odom EGFR-NON AF JAPANESE >60 Normal >=60 [facility] Comment on above: Performed By: #### C MP #### [facility] [address] [address] [address] Mariann Odom Globulin (S) [Mass/Vol] 3.9 g/dL Normal [facility] Comment on above: Performed By: #### C MP #### [facility] [address] [address] [address] Mariann Odom Glucose [Mass/Vol] 126 mg/dL Critically high 74-106 [facility] Comment on above: Performed By: #### C MP #### [facility] [address] [address] [address] Mariann Odom Potassium [Moles/Vol] 4.1 mmol/L Normal 3.5-5.1 [facility] Comment on above: Performed By: #### C MP #### [facility] [address] [address] [address] Mariann Odom Protein [Mass/Vol] 7.9 g/dL Normal 6.4-8.2 [facility] Comment on above: Performed By: #### C MP #### [facility] [address] [address] [address] Mariann Odom Sodium [Moles/Vol] 139 mmol/L Normal 136-145 [facility] Comment on above: Performed By: #### C MP #### [facility] [address] [address] [address] Mariann Odom Urea nitrogen [Mass/Vol] 16.0 mg/dL Normal 7.0-18.0 [facility] Comment on above: Performed By: #### C MP #### [facility] [address] [place] [address] Dr. Mariann Odom Urea nitrogen/Creatinine [Mass ratio] 17.2 mg/mg Normal [facility] Comment on above: Performed By: #### C MP #### [facility] [address] [place] [address] Dr. Mariann Odom SED RATE WESTERGRENon 2022 SED RATE 13 mm/hr Normal <=20 [facility] Comment on above: Performed By: #### S EDR #### [facility] [address] [place] [address] Dr. Mariann Odom CBC AUTO DIFFon 04-11-2022 BASO # 0.1 103/ul Normal 0.0-0.1 [facility] Comment on above: Performed By: #### C BC #### [facility] [address] [place] [address] Dr. Mariann Odom Basophils/100 WBC (Bld) 0.9 % Normal 0.2-2.0 [facility] Comment on above: Performed By: #### C BC #### [facility] [address] [place] [address] Dr. Mariann Odom EO # 0.2 103/ul Normal 0.0-0.7 [facility] Comment on above: Performed By: #### C BC #### [facility] [address] [place] [address] Dr. Mariann Odom Eosinophils/100 WBC (Bld) 4.2 % Normal 0.9-7.0 [facility] Comment on above: Performed By: #### C BC #### [facility] [address] [place] [address] Dr. Mariann Odom Erythrocyte distribution width (RBC) [Ratio] 14.3 % Normal 11.0-15.0 [facility] Comment on above: Performed By: #### C BC #### [facility] [address] [place] [address] Dr. Mariann Odom Hematocrit (Bld) [Volume fraction] 41.7 % Critically low 42.0-54.0 [facility] Comment on above: Performed By: #### C BC #### [facility] [address] [address] [address] Mariann Odom Hemoglobin (Bld) [Mass/Vol] 13.6 g/dL Critically low 14.0-18.0 [facility] Comment on above: Performed By: #### C BC #### [facility] [address] [address] [address] Mariann Odom IG # 0.01 10e3/ul Normal 0.00-0.03 [facility] Comment on above: Performed By: #### C BC #### [facility] [address] [place] [address] Dr. Mariann Odom IG % 0.2 % Normal 0.0-0.5 [facility] Comment on above: Performed By: #### C BC #### [facility] [address] [place] [address] Dr. Mariann Odom LYMPH # 1.6 103/ul Normal 1.2-3.8 [facility] Comment on above: Performed By: #### C BC #### [facility] [address] [place] [address] Dr. Mariann Odom Lymphocytes/100 WBC (Bld) 28.8 % Normal 20.5-60.0 [facility] Comment on above: Performed By: #### C BC #### [facility] [address] [place] [address] Dr. Mariann Odom MANUAL DIFF REQ NO Normal [facility] Comment on above: Performed By: #### C BC #### [facility] [address] [place] [address] Dr. Mariann Odom MCH (RBC) [Entitic mass] 27.7 pg Normal 25.9-34.0 [facility] Comment on above: Performed By: #### C BC #### [facility] [address] [place] [address] Dr. Mariann Odom MCHC (RBC) [Mass/Vol] 32.6 g/dL Normal 29.9-35.2 [facility] Comment on above: Performed By: #### C BC #### [facility] [address] [address] [address] Mariann Odom MCV (RBC) [Entitic vol] 84.9 fL Normal 80.0-94.0 [facility] Comment on above: Performed By: #### C BC #### [facility] [address] [address] [address] Mariann Odom MONO # 0.6 103/ul Normal 0.3-0.8 [facility] Comment on above: Performed By: #### C BC #### [facility] [address] [place] [address] Dr. Mariann Odom Monocytes/100 WBC (Bld) 10.4 % Normal 1.7-12.0 [facility] Comment on above: Performed By: #### C BC #### [facility] [address] [place] [address] Dr. Mariann Odom NEUT # 3.2 103/ul Normal 1.4-6.5 [facility] Comment on above: Performed By: #### C BC #### [facility] [address] [place] [address] Dr. Mariann Odom Neutrophils/100 WBC (Bld) 55.5 % Normal 43.0-75.0 [facility] Comment on above: Performed By: #### C BC #### [facility] [address] [place] [address] Dr. Mariann Odom Platelet mean volume (Bld) [Entitic vol] 10.8 fL Normal 9.5-13.5 [facility] Comment on above: Performed By: #### C BC #### [facility] [address] [place] [address] Dr. Mariann Odom PLT 269 103/ul Normal 150-450 [facility] Comment on above: Performed By: #### C BC #### [facility] [address] [place] [address] Dr. Mariann Oodm RBC 4.91 106/ul Normal 4.70-6.10 [facility] Comment on above: Performed By: #### C BC #### [facility] [address] [place] [address] Dr. Mariann Odom WBC 5.7 103/ul Normal 4.0-11.0 [facility] Comment on above: Performed By: #### C BC #### [facility] [address] [place] [address] Dr. Mariann Odom PROF 14(COMP METB)on 023 Albumin [Mass/Vol] 3.6 g/dL Normal 3.4-5.0 [facility] Comment on above: Performed By: #### C MP #### [facility] [address] [place] [address] Dr. Mariann Odom Albumin/Globulin [Mass ratio] 1.1 {ratio} Normal [facility] Comment on above: Performed By: #### C MP #### [facility] [address] [place] [address] Dr. Mariann Odom ALP [Catalytic activity/Vol] 95 U/L Normal 46-116 [facility] Comment on above: Performed By: #### C MP #### [facility] [address] [place] [address] Dr. Mariann Odom ALT [Catalytic activity/Vol] 39 U/L Normal 16-63 [facility] Comment on above: Performed By: #### C MP #### [facility] [address] [place] [address] Dr. Mariann Odom Anion gap [Moles/Vol] 11.1 mmol/L Normal [facility] Comment on above: Performed By: #### C MP #### [facility] [address] [place] [address] Dr. Mariann Odom AST [Catalytic activity/Vol] 25 U/L Normal 15-37 [facility] Comment on above: Performed By: #### C MP #### [facility] [address] [place] [address] Dr. Mariann Odom Bilirubin [Mass/Vol] 0.3 mg/dL Normal 0.2-1.0 [facility] Comment on above: Performed By: #### C MP #### [facility] [address] [place] [address] Dr. Mariann Odom Calcium [Mass/Vol] 9.0 mg/dL Normal 8.5-10.1 [facility] Comment on above: Performed By: #### C MP #### [facility] [address] [address] [address] Mariann Odom Chloride [Moles/Vol] 104 mmol/L Normal 98-107 [facility] Comment on above: Performed By: #### C MP #### [facility] [address] [address] [address] Mariann Odom CO2 [Moles/Vol] 27.8 mmol/L Normal 21.0-32.0 [facility] Comment on above: Performed By: #### C MP #### [facility] [address] [place] [address] Dr. Mariann Odom Creatinine [Mass/Vol] 0.81 mg/dL Normal 0.70-1.30 [facility] Comment on above: Performed By: #### C MP #### [facility] [address] [place] [address] Dr. Mariann Odom EGFR-AF JAPANESE >60 Normal >=60 [facility] Comment on above: Performed By: #### C MP #### [facility] [address] [place] [address] Dr. Mariann Odom EGFR-NON AF JAPANESE >60 Normal >=60 [facility] Comment on above: Performed By: #### C MP #### [facility] [address] [place] [address] Dr. Mariann Odom Globulin (S) [Mass/Vol] 3.4 g/dL Normal [facility] Comment on above: Performed By: #### C MP #### [facility] [address] [address] [address] Mariann Odom Glucose [Mass/Vol] 189 mg/dL Critically high 74-106 [facility] Comment on above: Performed By: #### C MP #### [facility] [address] [place] [address] Dr. Mariann Odom Potassium [Moles/Vol] 3.9 mmol/L Normal 3.5-5.1 [facility] Comment on above: Performed By: #### C MP #### [facility] [address] [address] [address] Mariann Odom Protein [Mass/Vol] 7.0 g/dL Normal 6.4-8.2 [facility] Comment on above: Performed By: #### C MP #### [facility] [address] [address] [address] Mariann Odom Sodium [Moles/Vol] 139 mmol/L Normal 136-145 [facility] Comment on above: Performed By: #### C MP #### [facility] [address] [address] [address] Mariann Odom Urea nitrogen [Mass/Vol] 14.0 mg/dL Normal 7.0-18.0 [facility] Comment on above: Performed By: #### C MP #### [facility] [address] [address] [address] Mariann Odom Urea nitrogen/Creatinine [Mass ratio] 17.3 mg/mg Normal [facility] Comment on above: Performed By: #### C MP #### [facility] [address] [address] [address] Mariann Odom SED RATE [facility] 2022 SED RATE 24 mm/hr Critically high <=20 [facility] Comment on above: Performed By: #### C MP #### [facility] [address] [address] [address] Mariann Odom GLYCOHEMOGLOBIN A1Con 2022 ADA RECOMMENDATION SEE BELOW Normal [facility] Comment on above: Result Comment: ADA RECOMMENDED LIMIT 4.0 - 6.0 ADA THERAPEUTIC TARGET < 7.0 ACTION SUGGESTED > 7.0 Performed By: #### A 1C #### [facility] [address] [place] [address] Dr. Mariann Odom Glucose [Mass/Vol] 263 mg/dL Normal [facility] Comment on above: Performed By: #### A 1C #### [facility] [address] [address] [address] Mariann Odom HbA1c (Bld) [Mass fraction] 10.8 % Critically high 4.5-6.2 [facility] Comment on above: Performed By: #### A 1C #### [facility] [address] [place] [address] Dr. Mariann Odom CBC AUTO DIFFon 01-03-2022 BASO # 0.0 103/ul Normal 0.0-0.1 [facility] Comment on above: Performed By: #### C MP #### [facility] [address] [place] [address] Dr. Mariann Odom Basophils/100 WBC (Bld) 0.6 % Normal 0.2-2.0 [facility] Comment on above: Performed By: #### C MP #### [facility] [address] [place] [address] Dr. Mariann Odom EO # 0.4 103/ul Normal 0.0-0.7 [facility] Comment on above: Performed By: #### C MP #### [facility] [address] [place] [address] Dr. Mariann Odom Eosinophils/100 WBC (Bld) 5.0 % Normal 0.9-7.0 [facility] Comment on above: Performed By: #### C MP #### [facility] [address] [place] [address] Dr. Mariann Odom Erythrocyte distribution width (RBC) [Ratio] 13.5 % Normal 11.0-15.0 [facility] Comment on above: Performed By: #### C MP #### [facility] [address] [place] [address] Dr. Mariann Odom Hematocrit (Bld) [Volume fraction] 42.2 % Normal 42.0-54.0 [facility] Comment on above: Performed By: #### C MP #### [facility] [address] [place] [address] Dr. Mariann Odom Hemoglobin (Bld) [Mass/Vol] 13.9 g/dL Critically low 14.0-18.0 [facility] Comment on above: Performed By: #### C MP #### [facility] [address] [place] [address] Dr. Mariann Odom IG # 0.02 10e3/ul Normal 0.00-0.03 [facility] Comment on above: Performed By: #### C MP #### [facility] [address] [place] [address] Dr. Mariann Odom IG % 0.3 % Normal 0.0-0.5 [facility] Comment on above: Performed By: #### C MP #### [facility] [address] [place] [address] Dr. Mariann Odom LYMPH # 1.8 103/ul Normal 1.2-3.8 [facility] Comment on above: Performed By: #### C MP #### [facility] [address] [place] [address] Dr. Mariann Odom Lymphocytes/100 WBC (Bld) 24.7 % Normal 20.5-60.0 [facility] Comment on above: Performed By: #### C MP #### [facility] [address] [place] [address] Dr. Mariann Odom MANUAL DIFF REQ NO Normal [facility] Comment on above: Performed By: #### C MP #### [facility] [address] [place] [address] Dr. Mariann Odom MCH (RBC) [Entitic mass] 28.3 pg Normal 25.9-34.0 [facility] Comment on above: Performed By: #### C MP #### [facility] [address] [place] [address] Dr. Mariann Odom MCHC (RBC) [Mass/Vol] 32.9 g/dL Normal 29.9-35.2 [facility] Comment on above: Performed By: #### C MP #### [facility] [address] [place] [address] Dr. Mariann Odom MCV (RBC) [Entitic vol] 85.9 fL Normal 80.0-94.0 [facility] Comment on above: Performed By: #### C MP #### [facility] [address] [place] [address] Dr. Mariann Odom MONO # 0.6 103/ul Normal 0.3-0.8 [facility] Comment on above: Performed By: #### C MP #### [facility] [address] [place] [address] Dr. Mariann Odom Monocytes/100 WBC (Bld) 8.8 % Normal 1.7-12.0 [facility] Comment on above: Performed By: #### C MP #### [facility] [address] [place] [address] Dr. Mariann Odom NEUT # 4.4 103/ul Normal 1.4-6.5 [facility] Comment on above: Performed By: #### C MP #### [facility] [address] [place] [address] Dr. Mariann Odom Neutrophils/100 WBC (Bld) 60.6 % Normal 43.0-75.0 [facility] Comment on above: Performed By: #### C MP #### [facility] [address] [place] [address] Dr. Mariann Odom Platelet mean volume (Bld) [Entitic vol] 11.2 fL Normal 9.5-13.5 [facility] Comment on above: Performed By: #### C MP #### [facility] [address] [place] [address] Dr. Mariann Odom PLT 268 103/ul Normal 150-450 [facility] Comment on above: Performed By: #### C MP #### [facility] [address] [place] [address] Dr. Mariann Odom RBC 4.91 106/ul Normal 4.70-6.10 [facility] Comment on above: Performed By: #### C MP #### [facility] [address] [place] [address] Dr. Mariann Odom WBC 7.2 103/ul Normal 4.0-11.0 [facility] Comment on above: Performed By: #### C MP #### [facility] [address] [place] [address] Dr. Mariann Odom PROF 14(COMP METB)on 022 Albumin [Mass/Vol] 3.8 g/dL Normal 3.4-5.0 [facility] Comment on above: Performed By: #### C MP #### [facility] [address] [address] [address] Mariann Odom Albumin/Globulin [Mass ratio] 1.0 {ratio} Normal [facility] Comment on above: Performed By: #### C MP #### [facility] [address] [address] [address] Mariann Odom ALP [Catalytic activity/Vol] 95 U/L Normal 46-116 [facility] Comment on above: Performed By: #### C MP #### [facility] [address] [address] [address] Mariann Odom ALT [Catalytic activity/Vol] 66 U/L Critically high 16-63 [facility] Comment on above: Performed By: #### C MP #### [facility] [address] [place] [address] Dr. Mariann Odom Anion gap [Moles/Vol] 12.7 mmol/L Normal [facility] Comment on above: Performed By: #### C MP #### [facility] [address] [address] [address] Mariann Odom AST [Catalytic activity/Vol] 42 U/L Critically high 15-37 [facility] Comment on above: Performed By: #### C MP #### [facility] [address] [address] [address] Mariann Odom Bilirubin [Mass/Vol] 0.4 mg/dL Normal 0.2-1.0 [facility] Comment on above: Performed By: #### C MP #### [facility] [address] [place] [address] Dr. Mariann Odom Calcium [Mass/Vol] 9.0 mg/dL Normal 8.5-10.1 [facility] Comment on above: Performed By: #### C MP #### [facility] [address] [address] [address] Mariann Odom Chloride [Moles/Vol] 101 mmol/L Normal 98-107 [facility] Comment on above: Performed By: #### C MP #### [facility] [address] [address] [address] Mariann Odom CO2 [Moles/Vol] 27.0 mmol/L Normal 21.0-32.0 [facility] Comment on above: Performed By: #### C MP #### [facility] [address] [address] [address] Mariann Odom Creatinine [Mass/Vol] 1.22 mg/dL Normal 0.70-1.30 [facility] Comment on above: Performed By: #### C MP #### [facility] [address] [address] [address] Mariann Odom EGFR-AF JAPANESE >60 Normal >=60 [facility] Comment on above: Performed By: #### C MP #### [facility] [address] [place] [address] Dr. Mariann Odom EGFR-NON AF JAPANESE >60 Normal >=60 [facility] Comment on above: Performed By: #### C MP #### [facility] [address] [address] [address] Mariann Odom Globulin (S) [Mass/Vol] 3.7 g/dL Normal [facility] Comment on above: Performed By: #### C MP #### [facility] [address] [place] [address] Dr. Mariann Odom Glucose [Mass/Vol] 288 mg/dL Critically high 74-106 [facility] Comment on above: Performed By: #### C MP #### [facility] [address] [place] [address] Dr. Mariann Odom Potassium [Moles/Vol] 3.7 mmol/L Normal 3.5-5.1 [facility] [facility] Comment on above: Performed By: #### C MP #### [facility] [address] [address] [address] Mariann Odom Protein [Mass/Vol] 7.5 g/dL Normal 6.4-8.2 [facility] [place] Comment on above: Performed By: #### C MP #### [facility] [address] [address] [address] Mariann Odom Sodium [Moles/Vol] 137 mmol/L Normal 136-145 [facility] Comment on above: Performed By: #### C MP #### [facility] [address] [place] [address] Dr. Mariann Odom Urea nitrogen [Mass/Vol] 13.0 mg/dL Normal 7.0-18.0 [facility] Comment on above: Performed By: #### C MP #### [facility] [address] [place] [address] Dr. Mairann Odom Urea nitrogen/Creatinine [Mass ratio] 10.7 mg/mg Normal [facility] Comment on above: Performed By: #### C MP #### [facility] [address] [place] [address] Dr. Mariann Odom SED RATE [facility] 2021 SED RATE 26 mm/hr Critically high <=20 [facility] Comment on above: Performed By: #### C MP #### [facility] [address] [place] [address] Dr. Mariann Odom CBC AUTO DIFFon 09-13-2021 BASO # 0.0 103/ul Normal 0.0-0.1 [facility] Comment on above: Performed By: #### C MP #### [facility] [address] [place] [address] Dr. Mariann Odom Basophils/100 WBC (Bld) 0.8 % Normal 0.2-2.0 [facility] Comment on above: Performed By: #### C MP #### [facility] [address] [place] [address] Dr. Mariann Odom EO # 0.2 103/ul Normal 0.0-0.7 [facility] Comment on above: Performed By: #### C MP #### [facility] [address] [place] [address] Dr. Mariann Odom Eosinophils/100 WBC (Bld) 4.5 % Normal 0.9-7.0 [facility] Comment on above: Performed By: #### C MP #### [facility] [address] [place] [address] Dr. Mariann Odom Erythrocyte distribution width (RBC) [Ratio] 15.0 % Normal 11.0-15.0 [facility] Comment on above: Performed By: #### C MP #### [facility] [address] [place] [address] Dr. Mariann Odom Hematocrit (Bld) [Volume fraction] 40.6 % Critically low 42.0-54.0 [facility] Comment on above: Performed By: #### C MP #### [facility] [address] [place] [address] Dr. Mariann Odom Hemoglobin (Bld) [Mass/Vol] 12.8 g/dL Critically low 14.0-18.0 [facility] Comment on above: Performed By: #### C MP #### [facility] [address] [place] [address] Dr. Mariann Odom IG # 0.01 10e3/ul Normal 0.00-0.03 [facility] Comment on above: Performed By: #### C MP #### [facility] [address] [place] [address] Dr. Mariann Odom IG % 0.2 % Normal 0.0-0.5 [facility] Comment on above: Performed By: #### C MP #### [facility] [address] [place] [address] Dr. Mariann Odom LYMPH # 1.5 103/ul Normal 1.2-3.8 [facility] Comment on above: Performed By: #### C MP #### [facility] [address] [place] [address] Dr. Mariann Odom Lymphocytes/100 WBC (Bld) 31.0 % Normal 20.5-60.0 [facility] Comment on above: Performed By: #### C MP #### [facility] [address] [place] [address] Dr. Mariann Odom MANUAL DIFF REQ NO Normal [facility] Comment on above: Performed By: #### C MP #### [facility] [address] [place] [address] Dr. Mariann Odom MCH (RBC) [Entitic mass] 28.3 pg Normal 25.9-34.0 [facility] Comment on above: Performed By: #### C MP #### [facility] [address] [place] [address] Dr. Mariann Odom MCHC (RBC) [Mass/Vol] 31.5 g/dL Normal 29.9-35.2 [facility] Comment on above: Performed By: #### C MP #### [facility] [address] [place] [address] Dr. Mariann Odom MCV (RBC) [Entitic vol] 89.6 fL Normal 80.0-94.0 [facility] Comment on above: Performed By: #### C MP #### [facility] [address] [place] [address] Dr. Mariann Odom MONO # 0.6 103/ul Normal 0.3-0.8 [facility] Comment on above: Performed By: #### C MP #### [facility] [address] [place] [address] Dr. Mariann Odom Monocytes/100 WBC (Bld) 11.4 % Normal 1.7-12.0 [facility] Comment on above: Performed By: #### C MP #### [facility] [address] [place] [address] Dr. Mariann Odom NEUT # 2.6 103/ul Normal 1.4-6.5 [facility] Comment on above: Performed By: #### C MP #### [facility] [address] [place] [address] Dr. Mariann Odom Neutrophils/100 WBC (Bld) 52.1 % Normal 43.0-75.0 [facility] Comment on above: Performed By: #### C MP #### [facility] [address] [place] [address] Dr. Mariann Odom Platelet mean volume (Bld) [Entitic vol] 11.9 fL Normal 9.5-13.5 [facility] Comment on above: Performed By: #### C MP #### [facility] [address] [place] [address] Dr. Mariann Odom PLT 288 103/ul Normal 150-450 [facility] Comment on above: Performed By: #### C MP #### [facility] [address] [address] [address] Mariann Odom RBC 4.53 106/ul Critically low 4.70-6.10 [facility] Comment on above: Performed By: #### C MP #### [facility] [address] [address] [address] Mariann Odom WBC 4.9 103/ul Normal 4.0-11.0 [facility] Comment on above: Performed By: #### C MP #### [facility] [address] [place] [address] Dr. Mariann Odom GLYCOHEMOGLOBIN A1Con 2021 ADA RECOMMENDATION SEE BELOW Normal [facility] Comment on above: Result Comment: ADA RECOMMENDED LIMIT 4.0 - 6.0 ADA THERAPEUTIC TARGET < 7.0 ACTION SUGGESTED > 7.0 Performed By: #### A 1C #### [facility] [address] [place] [address] Dr. Mariann Odom Glucose [Mass/Vol] 154 mg/dL Normal [facility] Comment on above: Performed By: #### A 1C #### [facility] [address] [place] [address] Dr. Mariann Odom HbA1c (Bld) [Mass fraction] 7.0 % Critically high 4.5-6.2 [facility] Comment on above: Performed By: #### A 1C #### [facility] [address] [place] [address] Dr. Mariann Odom LIPID PROFILEon 09-13-2021 CHOL-HDL RATIO NORM SEE BELOW Normal [facility] Comment on above: Result Comment: 3.3 - 4.4 LOW RISK 4.4 - 7.1 AVERAGE RISK 7.1 - 11.0 MODERATE RISK >11.0 HIGH RISK Performed By: #### C MP #### [facility] [address] [place] [address] Dr. Mariann Odom Cholesterol [Mass/Vol] 114 mg/dL Normal <=200 [facility] Comment on above: Performed By: #### C MP #### [facility] [address] [address] [address] Mariann Odom Cholesterol in HDL [Mass/Vol] 50 mg/dL Normal 40-60 [facility] Comment on above: Performed By: #### C MP #### [facility] [address] [place], [place] [address] Dr. Mariann Odom Cholesterol in LDL [Mass/Vol] 52.4 mg/dL Normal [facility] Comment on above: Performed By: #### C MP #### [facility] [address] [address] [address] Mariann Odom Cholesterol.total/Chol esterol in HDL [Mass ratio] 2.3 {ratio} Normal [facility] Comment on above: Performed By: #### C MP #### [facility] [address] [address] [address] Mariann Odom HDL NORMAL > or = 60 mg/dl - LOW CARDIOVASCULAR RISK <40 mg/dl - HIGH CARDIOVASCULAR RISK Normal [facility] Comment on above: Performed By: #### C MP #### [facility] [address] [address] [address] Mariann Odom LDL CALC NORMAL SEE BELOW Normal [facility] Comment on above: Result Comment: <100 mg/dl OPTIMAL 100 - 129 mg/dl NEAR OR ABOVE OPTIMAL 130 - 159 mg/dl BORDERLINE HIGH 160 - 189 mg/dl HIGH >190 mg/dl VERY HIGH Performed By: #### C MP #### [facility] [address] [address] [address] Mariann Odom Triglyceride [Mass/Vol] 58 mg/dL Normal <=150 [facility] Comment on above: Performed By: #### C MP #### [facility] [address] [address] [address] Mariann Odom VLDL CALC 11.6 mg/dL Normal [facility] Comment on above: Performed By: #### C MP #### [facility] [address] [address] [address] Mariann Odom LIVER PROFILEon 09-13-2021 Albumin [Mass/Vol] 4.0 g/dL Normal 3.4-5.0 [facility] Comment on above: Performed By: #### C MP #### [facility] [address] [place] [address] Dr. Mariann Odom Albumin/Globulin [Mass ratio] 1.1 {ratio} Normal [facility] Comment on above: Performed By: #### C MP #### [facility] [address] [place] [address] Dr. Mariann Odom ALP [Catalytic activity/Vol] 72 U/L Normal 46-116 [facility] Comment on above: Performed By: #### C MP #### [facility] [address] [place] [address] Dr. Mariann Odom ALT [Catalytic activity/Vol] 43 U/L Normal 16-63 [facility] Comment on above: Performed By: #### C MP #### [facility] [address] [place] [address] Dr. Mariann Odom AST [Catalytic activity/Vol] 28 U/L Normal 15-37 [facility] Comment on above: Performed By: #### C MP #### [facility] [address] [place] [address] Dr. Mariann Odom BILI, CONJUGATED 0.1 mg/dL Normal 0.0-0.2 [facility] Comment on above: Performed By: #### C MP #### [facility] [address] [place] [address] Dr. Mariann Odom Bilirubin [Mass/Vol] 0.4 mg/dL Normal 0.2-1.0 [facility] Comment on above: Performed By: #### C MP #### [facility] [address] [place] [address] Dr. Mariann Odom Globulin (S) [Mass/Vol] 3.5 g/dL Normal [facility] Comment on above: Performed By: #### C MP #### [facility] [address] [place] [address] Dr. Mariann Odom Protein [Mass/Vol] 7.5 g/dL Normal 6.4-8.2 [facility] Comment on above: Performed By: #### C MP #### [facility] [address] [address] [address] Mariann Odom MICROALBUMIN, RAND URon - mALB 1.5 mg/L Normal <=30.0 [facility] Comment on above: Performed By: #### M ALBR #### [facility] [address] [place] [address] Dr. Mariann Odom PROF CHEM 8 (BAS METB)on Anion gap [Moles/Vol] 11.3 mmol/L Normal [facility] Comment on above: Performed By: #### C MP #### [facility] [address] [place] [address] Dr. Mariann Odom Calcium [Mass/Vol] 9.1 mg/dL Normal 8.5-10.1 [facility] Comment on above: Performed By: #### C MP #### [facility] [address] [place] [address] Dr. Mariann Odom Chloride [Moles/Vol] 106 mmol/L Normal 98-107 [facility] Comment on above: Performed By: #### C MP #### [facility] [address] [place] [address] Dr. Mariann Odom CO2 [Moles/Vol] 29.0 mmol/L Normal 21.0-32.0 [facility] Comment on above: Performed By: #### C MP #### [facility] [address] [place] [address] Dr. Mariann Odom Creatinine [Mass/Vol] 0.93 mg/dL Normal 0.70-1.30 [facility] Comment on above: Performed By: #### C MP #### [facility] [address] [place] [address] Dr. Mariann Odom EGFR-AF JAPANESE >60 Normal >=60 [facility] Comment on above: Performed By: #### C MP #### [facility] [address] [place] [address] Dr. Mariann Odom EGFR-NON AF JAPANESE >60 Normal >=60 [facility] Comment on above: Performed By: #### C MP #### [facility] [address] [address] [address] Mariann Odom Glucose [Mass/Vol] 99 mg/dL Normal 74-106 [facility] Comment on above: Performed By: #### C MP #### [facility] [address] [address] [address] Mariann Odom Potassium [Moles/Vol] 4.3 mmol/L Normal 3.5-5.1 [facility] Comment on above: Performed By: #### C MP #### [facility] [address] [address] [address] Mariann Odom Sodium [Moles/Vol] 142 mmol/L Normal 136-145 [facility] Comment on above: Performed By: #### C MP #### [facility] [address] [place] [address] Dr. Mariann Odom Urea nitrogen [Mass/Vol] 11.0 mg/dL Normal 7.0-18.0 [facility] Comment on above: Performed By: #### C MP #### [facility] [address] [address] [address] Mariann Odom Urea nitrogen/Creatinine [Mass ratio] 11.8 mg/mg Normal [facility] Comment on above: Performed By: #### C MP #### [facility] [address] [address] [address] Mariann Odom TSHon 09-13-2021 TSH 1.183 uIU/mL Normal 0.358-3.740 [facility] Comment on above: Performed By: #### C MP #### [facility] [address] [place] [address] Dr. Mariann Odom CBC AUTO DIFFon 08-24-2021 BASO # 0.1 103/ul Normal 0.0-0.1 [facility] Comment on above: Performed By: #### C BC #### [facility] [address] [place] [address] Dr. Mariann Odom Basophils/100 WBC (Bld) 1.0 % Normal 0.2-2.0 [facility] Comment on above: Performed By: #### C BC #### [facility] [address] [address] [address] Mariann dOom EO # 0.2 103/ul Normal 0.0-0.7 [facility] Comment on above: Performed By: #### C BC #### [facility] [address] [place] [address] Dr. Mariann Odom Eosinophils/100 WBC (Bld) 4.4 % Normal 0.9-7.0 [facility] Comment on above: Performed By: #### C BC #### [facility] [address] [place] [address] Dr. Mariann Odom Erythrocyte distribution width (RBC) [Ratio] 14.8 % Normal 11.0-15.0 [facility] Comment on above: Performed By: #### C BC #### [facility] [address] [place] [address] Dr. Mariann Odmo Hematocrit (Bld) [Volume fraction] 41.1 % Critically low 42.0-54.0 [facility] Comment on above: Performed By: #### C BC #### [facility] [address] [place] [address] Dr. Mariann Odom Hemoglobin (Bld) [Mass/Vol] 13.1 g/dL Critically low 14.0-18.0 [facility] Comment on above: Performed By: #### C BC #### [facility] [address] [place] [address] Dr. Mariann Odom IG # 0.01 10e3/ul Normal 0.00-0.03 [facility] Comment on above: Performed By: #### C BC #### [facility] [address] [place] [address] Dr. Mariann Odom IG % 0.2 % Normal 0.0-0.5 [facility] Comment on above: Performed By: #### C BC #### [facility] [address] [place] [address] Dr. Mariann Odom LYMPH # 1.6 103/ul Normal 1.2-3.8 [facility] Comment on above: Performed By: #### C BC #### [facility] [address] [place] [address] Dr. Mariann Odom Lymphocytes/100 WBC (Bld) 30.9 % Normal 20.5-60.0 [facility] Comment on above: Performed By: #### C BC #### [facility] [address] [place] [address] Dr. Mariann Odom MANUAL DIFF REQ NO Normal [facility] Comment on above: Performed By: #### C BC #### [facility] [address] [place] [address] Dr. Mariann Odom MCH (RBC) [Entitic mass] 28.4 pg Normal 25.9-34.0 [facility] Comment on above: Performed By: #### C BC #### [facility] [address] [place] [address] Dr. Mariann Odom MCHC (RBC) [Mass/Vol] 31.9 g/dL Normal 29.9-35.2 [facility] Comment on above: Performed By: #### C BC #### [facility] [address] [place] [address] Dr. Mariann Odom MCV (RBC) [Entitic vol] 89.2 fL Normal 80.0-94.0 [facility] Comment on above: Performed By: #### C BC #### [facility] [address] [place] [address] Dr. Mariann Odom MONO # 0.5 103/ul Normal 0.3-0.8 [facility] Comment on above: Performed By: #### C BC #### [facility] [address] [place] [address] Dr. Mariann Odom Monocytes/100 WBC (Bld) 9.4 % Normal 1.7-12.0 [facility] Comment on above: Performed By: #### C BC #### [facility] [address] [place] [address] Dr. Mariann Odom NEUT # 2.7 103/ul Normal 1.4-6.5 [facility] Comment on above: Performed By: #### C BC #### [facility] [address] [address] [address] Mariann Odom Neutrophils/100 WBC (Bld) 54.1 % Normal 43.0-75.0 [facility] Comment on above: Performed By: #### C BC #### [facility] [address] [address] [address] Mariann Odom Platelet mean volume (Bld) [Entitic vol] 11.3 fL Normal 9.5-13.5 [facility] Comment on above: Performed By: #### C BC #### [facility] [address] [address] [address] Mariann Odom PLT 251 103/ul Normal 150-450 [facility] Comment on above: Performed By: #### C BC #### [facility] [address] [place] [address] Dr. Mariann Odom RBC 4.61 106/ul Critically low 4.70-6.10 [facility] Comment on above: Performed By: #### C BC #### [facility] [address] [place] [address] Dr. Mariann Odom WBC 5.0 103/ul Normal 4.0-11.0 [facility] Comment on above: Performed By: #### C BC #### [facility] [address] [place] [address] Dr. Mariann Odom PROF 14(COMP METB)on 022 Albumin [Mass/Vol] 3.7 g/dL Normal 3.4-5.0 [facility] Comment on above: Performed By: #### C MP #### [facility] [address] [place] [address] Dr. Mariann Odom Albumin/Globulin [Mass ratio] 1.0 {ratio} Normal [facility] Comment on above: Performed By: #### C MP #### [facility] [address] [place] [address] Dr. Mariann Odom ALP [Catalytic activity/Vol] 87 U/L Normal 46-116 [facility] Comment on above: Performed By: #### C MP #### [facility] [address] [address] [address] Mariann Odom ALT [Catalytic activity/Vol] 39 U/L Normal 16-63 [facility] Comment on above: Performed By: #### C MP #### [facility] [address] [place] [address] Dr. Mariann Odom Anion gap [Moles/Vol] 10.2 mmol/L Normal [facility] Comment on above: Performed By: #### C MP #### [facility] [address] [place] [address] Dr. Mariann Odom AST [Catalytic activity/Vol] 22 U/L Normal 15-37 [facility] Comment on above: Performed By: #### C MP #### [facility] [address] [place] [address] Dr. Mariann Odom Bilirubin [Mass/Vol] 0.3 mg/dL Normal 0.2-1.0 [facility] Comment on above: Performed By: #### C MP #### [facility] [address] [place] [address] Dr. Mariann Odom Calcium [Mass/Vol] 9.4 mg/dL Normal 8.5-10.1 [facility] Comment on above: Performed By: #### C MP #### [facility] [address] [place] [address] Dr. Mariann Odom Chloride [Moles/Vol] 105 mmol/L Normal 98-107 [facility] Comment on above: Performed By: #### C MP #### [facility] [address] [place] [address] Dr. Mariann Odom CO2 [Moles/Vol] 28.9 mmol/L Normal 21.0-32.0 [facility] Comment on above: Performed By: #### C MP #### [facility] [address] [place] [address] Dr. Mariann Odom Creatinine [Mass/Vol] 0.93 mg/dL Normal 0.70-1.30 [facility] Comment on above: Performed By: #### C MP #### [facility] [address] [place] [address] Dr. Mariann Odom EGFR-AF JAPANESE >60 Normal >=60 [facility] Comment on above: Performed By: #### C MP #### [facility] [address] [address] [address] Mariann Odom EGFR-NON AF JAPANESE >60 Normal >=60 [facility] Comment on above: Performed By: #### C MP #### [facility] [address] [address] [address] Mariann Odom Globulin (S) [Mass/Vol] 3.7 g/dL Normal [facility] Comment on above: Performed By: #### C MP #### [facility] [address] [address] [address] Mariann Odom Glucose [Mass/Vol] 253 mg/dL Critically high 74-106 T [facility] Comment on above: Performed By: #### C MP #### [facility] [address] [address] [address] Mariann Odom Potassium [Moles/Vol] 4.1 mmol/L Normal 3.5-5.1 [facility] Comment on above: Performed By: #### C MP #### [facility] [address] [address] [address] Mariann Odom Protein [Mass/Vol] 7.4 g/dL Normal 6.4-8.2 [facility] Comment on above: Performed By: #### C MP #### [facility] [address] [address] [address] Mariann Odom Sodium [Moles/Vol] 140 mmol/L Normal 136-145 [facility] [place] Comment on above: Performed By: #### C MP #### [facility] [address] [address] [address] Mariann Odom Urea nitrogen [Mass/Vol] 15.0 mg/dL Normal 7.0-18.0 [facility] Comment on above: Performed By: #### C MP #### [facility] [address] [address] [address] Mariann Odom Urea nitrogen/Creatinine [Mass ratio] 16.1 mg/mg Normal [facility] Comment on above: Performed By: #### C MP #### [facility] [address], [place] [address] Dr. Mariann Odom SED RATE [facility] 2021 SED RATE 15 mm/hr Normal <=20 [facility] Comment on above: Performed By: #### C MP #### [facility] [address] [address] [address] Mariann Odom Vital Signs Date Time Vital Sign Value Performing Clinician Facility 08-14-2023 14:31-0400 Body height 177.8 cm Isha Valentino MD Work Phone: [facility] 08-14-2023 14:31-0400 Body mass index (BMI) [Ratio] 30.13 kg/m2 Isha Valentino MD Work Phone: [facility] 08-14-2023 14:31-0400 Body temperature 96.4 [degF] Isha Valentino MD Work Phone: [facility] 08-14-2023 14:31-0400 Body weight 95.25 kg Isha Valentino MD Work Phone: [facility] 08-14-2023 14:31-0400 Diastolic blood pressure 92 mm[Hg] Isha Valentino MD Work Phone: [facility] 08-14-2023 14:31-0400 Heart rate 69 /min Isha Valentino MD Work Phone: [facility] 08-14-2023 14:31-0400 Respiratory rate 18 /min Isha Valentino MD Work Phone: [facility] 08-14-2023 14:31-0400 Systolic blood pressure 160 mm[Hg] Isha Valentino MD Work Phone: [facility] 06-06-2023 16:00-0400 Body temperature 96.4 [degF] Isha Valentino MD Work Phone: [facility] 06-06-2023 16:00-0400 Diastolic blood pressure 100 mm[Hg] Isha Valentino MD Work Phone: [facility] 06-06-2023 16:00-0400 Heart rate 96 /min Isha Valentino MD Work Phone: [facility] 06-06-2023 16:00-0400 Respiratory rate 18 /min Isha Valentino MD Work Phone: [facility] 06-06-2023 16:00-0400 SaO2% (BldA) [Mass fraction] 98 % Isha Valentino MD Work Phone: [facility] 06-06-2023 16:00-0400 Systolic blood pressure 159 mm[Hg] Isha Valentino MD Work Phone: [facility] 06-01-2023 13:33-0500 Body temperature 37.0 Isha Valenitno MD Work Phone: [facility] 06-01-2023 13:33-0500 SaO2% (BldA) [Mass fraction] 100 % Isha Valentino MD Work Phone: [facility] 06-01-2023 13:19-0500 Body temperature 37.[address] [facility] Comment on above: Performed By: #### [id number] #### PACHECO Ferraro ([id number]) [facility] ([facility]) [address] [place] [address] 06-01-2023 13:19-0500 SaO2% (BldA) [Mass fraction] 100 % [facility] Comment on above: Performed By: #### [id number] #### PACHECO Ferraro ([id number]) [facility] ([facility]) [address] [place] [address] 06-01-2023 12:51-0500 Body temperature 37.0 Isha Valentino MD Work Phone: [facility] 06-01-2023 12:51-0500 SaO2% (BldA) [Mass fraction] 100 % Isha Valentino MD Work Phone: [facility] 06-01-2023 12:36-0500 Body temperature 37.0 degrees Cels[address] [facility] Comment on above: Performed By: #### [id number] #### PACHECO Ferraro ([id number]) [facility] ([facility]) [address] [place] [address] 06-01-2023 12:36-0500 SaO2% (BldA) [Mass fraction] 100 % [facility] Comment on above: Performed By: #### [id number] #### PACHECO Ferraro ([id number]) [facility] ([facility]) [address] [place] [address] 06-01-2023 11:09-0500 Body temperature 37.0 Isha Valentino MD Work Phone: [facility] 06-01-2023 11:09-0500 SaO2% (BldA) [Mass fraction] 100 % Isha Valentino MD Work Phone: [facility] 06-01-2023 10:49-0500 Body temperature 37.0 degrees Celsius [facility] Comment on above: Performed By: #### [id number] #### PACHECO Ferraro ([id number]) [facility] ([facility]) [address] [place] [address] 06-01-2023 10:49-0500 SaO2% (BldA) [Mass fraction] 100 % [facility] Comment on above: Performed By: #### [id number] #### PACHECO Ferraro ([id number]) [facility] ([facility]) [address] [place] [address] 06-01-2023 09:27-0500 Body temperature 37.0 Isha Valentino MD Work Phone: [facility] 06-01-2023 09:27-0500 SaO2% (BldA) [Mass fraction] 100 % Isha Valentino MD Work Phone: [facility] 06-01-2023 09:00-0500 Body temperature 37.[address] degrees [address] [facility] Comment on above: Performed By: #### [id number] #### PACHECO Ferraro ([id number]) [facility] ([facility]) [address] [place] [address] 06-01-2023 09:00-0500 SaO2% (BldA) [Mass fraction] 100 % [facility] Comment on above: Performed By: #### [id number] #### PACHECO Ferraro ([id number]) [facility] ([facility]) [address] [place] [address] 06-01-2023 05:53-0500 Body height 177.8 cm Isha Valentino MD Work Phone: [facility] 06-01-2023 05:53-0500 Body mass index (BMI) [Ratio] 30.18 kg/m2 Isha Valentino MD Work Phone: [facility] 06-01-2023 05:53-0500 Body weight 95.4 kg Isha Valentino MD Work Phone: [facility] 03-28-2023 10:40-0500 Body height 180.34 cm Natty Cat Other [facility] Other 03-28-2023 10:40-0500 Body mass index (BMI) [Ratio] 30.26 kg/m2 Natty Cat Other [facility] Other 03-28-2023 10:40-0500 Body weight 98.43 kg Natty Cat Other [facility] Other 02-19-2023 09:45-0500 Body height 180.34 cm Abel Sandoval Other [facility] Other 02-19-2023 09:45-0500 Body mass index (BMI) [Ratio] 30.12 kg/m2 Abel Sandoval Other [facility] Other 02-19-2023 09:45-0500 Body weight 97.98 kg Abel Sandoval Other [facility] Other 02-19-2023 09:45-0500 Diastolic blood pressure 80 mm[Hg] Abel Sandoval Other [facility] Other 02-19-2023 09:45-0500 SaO2% (BldA) [Mass fraction] 99 % Abel Sandoval Other [facility] Other 02-19-2023 09:45-0500 Systolic blood pressure 130 mm[Hg] Abel Sandoval Other [facility] Other 02-07-2023 10:35-0500 Diastolic blood pressure 81 mm[Hg] MD Major Stevens Work Phone: [facility] 02-07-2023 10:35-0500 Heart rate 65 /min MD Major Stevens Work Phone: [facility] 02-07-2023 10:35-0500 Respiratory rate 16 /min MD Major Stevens Work Phone: [facility] 02-07-2023 10:35-0500 SaO2% (BldA) [Mass fraction] 97 % MD Major Stevens Work Phone: [facility] 02-07-2023 10:35-0500 Systolic blood pressure 146 mm[Hg] MD Major Stevens Work Phone: [facility] 02-07-2023 09:57-0500 Inhaled oxygen flow rate 3 L/min MD Major Stevens Work Phone: [facility] 02-07-2023 08:54-0500 Body height 177.8 cm MD Major Stevens Work Phone: [facility] 02-07-2023 08:54-0500 Body weight 97.52 kg MD Major Stevens Work Phone: [facility] 01-17-2023 11:33-0400 Diastolic blood pressure 92 mm[Hg] MD Major Stevens Work Phone: [facility] 01-17-2023 11:33-0400 Heart rate 70 /min MD Major Stevens Work Phone: [facility] 01-17-2023 11:33-0400 Respiratory rate 16 /min MD Major Stevens Work Phone: [facility] 01-17-2023 11:33-0400 SaO2% (BldA) [Mass fraction] 98 % MD Major Stevens Work Phone: [facility] 01-17-2023 11:33-0400 Systolic blood pressure 171 mm[Hg] MD Major Stevens Work Phone: [facility] 01-17-2023 11:05-0400 Inhaled oxygen flow rate 3 L/min MD Major Stevens Work Phone: [facility] 01-17-2023 10:40-0400 Body height 177.8 cm MD Major Stevens Work Phone: [facility] 01-17-2023 10:40-0400 Body weight 97.52 kg MD Major Stevens Work Phone: [facility] 12-26-2022 08:30-0400 Body height 180.34 cm Abel Sandoval Other [facility] Other 12-26-2022 08:30-0400 Body mass index (BMI) [Ratio] 30.12 kg/m2 Abel Sandoval Other [facility] Other 12-26-2022 08:30-0400 Body weight 97.98 kg Abel Sandoval Other [facility] Other 12-26-2022 08:30-0400 Diastolic blood pressure 86 mm[Hg] Abel Sandoval Other [facility] Other 12-26-2022 08:30-0400 SaO2% (BldA) [Mass fraction] 98 % Abel Sandoval Other [facility] Other 12-26-2022 08:30-0400 Systolic blood pressure 148 mm[Hg] Abel Sandoval Other [facility] Other Encounters Encounter Date Encounter Type Care Provider Facility Start: 10-17-2023 End: 10-17-2023 ambulatory MAJOR STEVENS Not Available Start: 08-23-2023 End: 08-23-2023 ambulatory IVETTE MONTANO Not Available Start: 08-21-2023 End: 08-21-2023 ambulatory BRITNEY TERESA Not Available Start: 08-16-2023 End: 08-16-2023 ambulatory BRITNEY BRSAMMY Not Available Start: 08-14-2023 End: 08-14-2023 Postop follow up visit related to original px Isha Valentino MD Work Phone: [facility] Comment on above: Postoperative follow -up (Primary Dx) Start: 08-14-2023 End: 08-14-2023 Subsequent hospital visit by physician Rufina Rteana X[facility] 4 [facility] Comment on above: S/P lumbar spinal fu yvette; Scoliosis of thoracolumbar region due to degenerative disease of spine in adult Start: 08-14-2023 End: 08-14-2023 ambulatory [facility] Start: 08-13-2023 End: 08-13-2023 ambulatory IVETTE MONTANO Not Available Start: 08-09-2023 End: 08-09-2023 ambulatory BRITNEY BRINK Not Available Start: 08-06-2023 End: 08-06-2023 ambulatory IVETTE MONTANO Not Available Start: 08-02-2023 End: 08-02-2023 ambulatory BRITNEY BRINK Not Available Start: 07-30-2023 End: 07-30-2023 ambulatory BRITNEY BRINK Not Available Start: 07-26-2023 End: 07-26-2023 ambulatory IVETTE MONTANO Not Available Start: 07-16-2023 End: 07-16-2023 ambulatory MAJOR BERGMANTOVA Not Available Start: 07-10-2023 End: 07-10-2023 Subsequent hospital visit by physician Rufina Retana X-Ray 4 [facility] Comment on above: Status post spinal s urgery Start: 07-10-2023 End: 07-10-2023 ambulatory [facility] Start: 06-11-2023 ambulatory NONE PHYSICIAN Facility :R Start: 06-01-2023 End: 06-06-2023 Evaluation and management of inpatient Isha Valentino MD Work Phone: [facility] [place] 4 Comment on above: Lumbar radiculopathy , right (Primary Dx); Spinal stenosis of lumbar region with neurogenic claudication; Sagittal plane imbalance; Scoliosis of thoracolumbar region due to degenerative disease of spine in adult; Lumbar foraminal stenosis; Lumbar radiculopathy, acute; Lumbar stenosis with neurogenic claudication; Postoperative pain; Constipation due to pain medication; Psoriatic arthritis ([facility] Start: 05-17-2023 End: 05-18-2023 ambulatory [facility] Start: 05-17-2023 End: 05-17-2023 ambulatory [facility] Start: 05-17-2023 End: 05-17-2023 Encounter for other preprocedural examination [facility] Start: 05-17-2023 End: 05-17-2023 Patient encounter status [facility] Work Phone: Start: 05-17-2023 End: 05-17-2023 Physical examination [facility] Work Phone: Start: 05-17-2023 End: 05-17-2023 Subsequent hospital visit by physician [facility] [id number] Holter/Ecg Resource [facility] Comment on above: Surgery, elective; Preop testing; Preoperative general physical examination Start: 04-24-2023 End: 04-24-2023 Subsequent hospital visit by physician Rufina Retana X-Ray 4 [facility] Comment on above: Spinal stenosis of l umbar region with neurogenic claudication Start: 04-24-2023 End: 04-24-2023 ambulatory [facility] Start: 04-24-2023 End: 04-24-2023 ambulatory [facility] Start: 04-16-2023 End: 04-16-2023 ambulatory MAJOR STEVENS Not Available Start: 04-12-2023 Orders Only Dino kingsley MD Work Phone: [facility] Start: 03-29-2023 End: 03-29-2023 ambulatory Natty Cat Other [employer] [facility] [employer] Other Start: 03-29-2023 Telephone encounter Natty [facility] Start: 03-28-2023 End: 03-28-2023 ambulatory Natty Cat Other [facility] [employer] Other Start: 03-28-2023 Office outpatient vi sit 25 minutes Natty Cat [facility] Neurosurgery Start: 03-07-2023 End: 03-07-2023 ambulatory MAJOR STEVENS Not Available Start: 02-19-2023 End: 02-19-2023 ambulatory Abel Sandoval Other [facility] Other Start: 02-19-2023 Office outpatient vi sit 25 minutes Abel Sandoval [facility] Start: 02-07-2023 (PROC) PROCEDURE Abel Martinez [facility] Start: 02-07-2023 End: 02-07-2023 ambulatory Abel Sandoval Facility:[facility] Start: 02-07-2023 End: 02-07-2023 Admission to same day surgery center MD Major Stevens Work Phone: [facility] Work Phone: Start: 02-07-2023 End: 02-07-2023 ambulatory MD Major Stevens Work Phone: [facility] Work Phone: Start: 01-17-2023 (PROC) PROCEDURE [facility] Start: 01-17-2023 End: 01-17-2023 ambulatory Abel Sandoval Facility:[facility] Start: 01-17-2023 End: 01-17-2023 Admission to same day surgery center MD Major Stevens Work Phone: [facility] Work Phone: Start: 01-17-2023 End: 01-17-2023 ambulatory MD Major Stevens Work Phone: [facility] Work Phone: Start: 12-26-2022 End: 12-26-2022 ambulatory Abel Sandoval Other [facility] Other Start: 12-26-2022 Office outpatient vi sit 25 minutes Abel Sandoval [facility] Start: 12-15-2022 End: 12-15-2022 ambulatory Sully Barney Facility:[facility] Start: 12-15-2022 End: 12-15-2022 Patient encounter procedure MD Major Stevens Work Phone: [facility] [address] Work Phone: Start: 10-25-2022 End: 10-25-2022 ambulatory Abel Sandoval Other [facility] [employer] Other Start: 10-25-2022 Telephone encounter Abel Sandoval [facility] Start: 10-16-2022 End: 10-16-2022 ambulatory Abel Sandoval Facility:[facility] Start: 07-19-2022 End: 07-20-[address] TONIA PADILLA Facility:[facility] Start: 04-11-2022 End: 04-12-[address] TONIA PADILLA Facility:[facility] Start: 04-03-2022 End: 04-04-[address] MAJOR STEVENS Facility:[facility] Start: 01-03-2022 End: 01-04-[address] TONIA PADILLA Facility:[facility] Start: 09-15-2021 Encounter for genera l adult medical examination without abnormal findings DR MAJOR STEVENS [facility] Start: 09-13-2021 End: 09-14-[address] MAJOR STEVENS Facility:[facility] Start: 09-13-2021 End: 09-14-2021 Encounter for general adult medical examination without abnormal findings DR MAJOR STEVENS Facility:[facility] Start: 08-24-2021 End: 08-25-[address] TONIA PAIDLLA Facility:[facility] Procedures Date Procedure Procedure Detail Performing Clinician Start: 07-10-2023 XR SCOLIOSIS 2 VIEW (NON EOS) ISHA VALENTINO Start: 06-06-2023 DISCHARGE PATIENT JESENIA Torres CHELSY Start: 06-06-2023 ACTIVITY ISHA ENRIQUEZ Start: 06-06-2023 ADULT DISCHARGE DIET ARIADNE VALENTINO Start: 06-06-2023 DISCHARGE ACTIVITY BECKIE VALENTINO Start: 06-06-2023 DISCHARGE INSTRUCTIONS ISHA VALENTINO Start: 06-06-2023 NOTIFY PROVIDER (DO NOT PROMPT FOR PARAMETERS) ISHA VALENTINO Start: 06-06-2023 Glucose [Mass/volume ] in Serum or Plasma ISHA VALENTINO Start: 06-06-2023 Glucose quantitative blood xcpt reagent strip Isha Valentino MD Work Phone: Start: 06-06-2023 TRANSFER PATIENT TO NEW UNIT ISHA VALENTINO Start: 06-06-2023 CBC panel - Blood by Automated count ISHA VALENTINO Start: 06-06-2023 RENAL FUNCTION PANEL PR ALONSO VALENTINO Start: 06-06-2023 Glucose [Mass/volume ] in Serum or Plasma ISHA VALENTINO Start: 06-06-2023 End: 06-06-2023 Renal function panel Renetta Knox 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 Work Phone: Start: 06-05-2023 Glucose [Mass/volume ] in Serum or Plasma ISHA DYSONZOE Start: 06-05-2023 Glucose quantitative blood xcpt reagent strip Isha Valentino MD Work Phone: Start: 06-05-2023 Glucose [Mass/volume ] in Serum or Plasma ISHA DYSONZOE Start: 06-05-2023 Glucose quantitative blood xcpt reagent strip Isha Valentino MD Work Phone: Start: 06-05-2023 Glucose [Mass/volume ] in Serum or Plasma ISHA DYSONZOE Start: 06-05-2023 Glucose quantitative blood xcpt reagent strip Isha Valentino MD Work Phone: Start: 06-05-2023 Glucose [Mass/volume ] in Serum or Plasma ISHA KARISZOE Start: 06-05-2023 Glucose quantitative blood xcpt reagent strip Isha Valentino MD Work Phone: Start: 06-04-2023 Glucose [Mass/volume ] in Serum or Plasma ISHA KARISZOE Start: 06-04-2023 Glucose quantitative blood xcpt reagent strip Isha Valentino MD Work Phone: Start: 06-04-2023 Glucose [Mass/volume ] in Serum or Plasma ISHA VALENTINO Start: 06-04-2023 Glucose quantitative blood xcpt reagent strip Isha Valentino MD Work Phone: Start: 06-04-2023 Glucose [Mass/volume ] in Serum or Plasma ISHA VALENTINO Start: 06-04-2023 Basic metabolic 2000 panel - Serum or Plasma ISHA KARISZOE Start: 06-04-2023 CBC panel - Blood by Automated count ISHA VALENTINO Start: 06-04-2023 Glucose quantitative blood xcpt reagent strip Isha Valentino MD Work Phone: Start: 06-04-2023 Glucose [Mass/volume ] in Serum or Plasma ISHA VALENTINO Start: 06-04-2023 Basic metabolic pane l calcium total Terrell Johnson MD Work Phone: Start: 06-04-2023 Glucose quantitative blood xcpt reagent strip Isha Valentino MD Work Phone: Start: 06-03-2023 Glucose [Mass/volume ] in Serum or Plasma ISHA VALENTINO Start: 06-03-2023 Glucose quantitative blood xcpt reagent strip Isha Valentino MD Work Phone: Start: 06-03-2023 Glucose [Mass/volume ] in Serum or Plasma ISHA VALENTINO Start: 06-03-2023 Glucose quantitative blood xcpt reagent strip Isha Valentino MD Work Phone: Start: 06-03-2023 Basic metabolic 2000 panel - Serum or Plasma ISHA VALENTINO Start: 06-03-2023 CBC panel - Blood by Automated count ISHA VALENTINO Start: 06-03-2023 Glucose [Mass/volume ] in Serum or Plasma ISHA VALENTINO Start: 06-03-2023 End: 06-03-2023 Basic metabolic panel calcium total Terrell Johnson MD Work Phone: Start: 06-02-2023 Glucose [Mass/volume ] in Serum or Plasma ISAH VALENTINO Start: 06-02-2023 Glucose quantitative blood xcpt reagent strip Isha Valentino MD Work Phone: Start: 06-02-2023 Glucose [Mass/volume ] in Serum or Plasma ISHA VALENTINO Start: 06-02-2023 Glucose quantitative blood xcpt reagent strip Isha Valentino MD Work Phone: Start: 06-02-2023 Glucose [Mass/volume ] in Serum or Plasma ISHA SINMICHAEL Start: 06-02-2023 Glucose quantitative blood xcpt reagent strip Isha Valentino MD Work Phone: Start: 06-02-2023 CBC panel - Blood by Automated count ISHAMARVIN VALENTINO Start: 06-02-2023 FIBRINOGEN ISHAMARVIN DYSON [facility] Start: 06-02-2023 Magnesium [Mass/volu me] in Serum or Plasma ISHAMARVIN DYSONMICHAEL Start: 06-02-2023 RENAL FUNCTION PANEL MA ALONSO KARISZOE Start: 06-02-2023 Renal function panel Se nic Johnson MD Work Phone: Start: 06-01-2023 FULL CODE ISHAMARVIN ENRIQUEZ Start: 06-01-2023 CBC panel - Blood by Automated count ISHAMARVIN VALENTINO Start: 06-01-2023 FIBRINOGEN ISHAMARVIN DYSON MICHAEL Start: 06-01-2023 Magnesium [Mass/volu me] in Serum or Plasma ISHAMARVIN DYSONMICHAEL Start: 06-01-2023 PULSE OXIMETRY, CONTINUOUS ISHAMARVIN VALENTINO Start: 06-01-2023 ADMIT TO INPATIENT [facility] KARISMICHAEL Start: 06-01-2023 Glucose [Mass/volume ] in Serum or Plasma ISHAMARVIN DYSONMICHAEL Start: 06-01-2023 End: 06-01-2023 Assay of magnesium Terrell Johnson MD Work Phone: Start: 06-01-2023 FL FLUORO IMAGES NO CHARGE ISHAMARVIN SINMICHAEL Start: 06-01-2023 PULSE OXIMETRY, CONTINUOUS Kal Bacon MD Work Phone: Start: 06-01-2023 Glucose quantitative blood xcpt reagent strip Isha Valentino MD Work Phone: Start: 06-01-2023 End: 06-01-2023 XR tomography Unspecified body region Terrell Johnson MD Work Phone: Start: 06-01-2023 End: 06-01-2023 Chloride bld Carol T O'Shalonda CA A Work Phone: Start: 06-01-2023 PREPARE RBC ISHA ENRIQUEZ Start: 06-01-2023 VERAB/VERIFY ABORH BECKIE VALENTINO Start: 06-01-2023 BLOOD GAS ARTERIAL F ULL PANEL ISHA KARISZOE Start: 06-01-2023 Chloride bld Craol T O'Shalonda CAA Work Phone: Start: 06-01-2023 PREPARE RBC Carol T O'Shalonda CAA Work Phone: Start: 06-01-2023 IOM ISHA DYSON ZOE Start: 06-01-2023 VERAB/VERIFY ABORH Marzena een T O'Shalonda CAA Work Phone: Start: 06-01-2023 Glucose [Mass/volume ] in Serum or Plasma ISHA VALENTINO Start: 06-01-2023 End: 06-01-2023 Arthdsis post/posterolatrl/postinter body lumbar Isha Valentino MD Work Phone: Start: 06-01-2023 Glucose quantitative blood xcpt reagent strip Isha Valentino MD Work Phone: Start: 05-18-2023 ECG 12-LEAD ISHA ENRIQUEZ Start: 05-18-2023 Ecg routine ecg w/le ast 12 lds trcg only w/o i&r Lama Ewelina COPELAND Work Phone: Start: 05-17-2023 Basic metabolic 2000 panel - Serum or Plasma ISHA VALENTINO Start: 05-17-2023 CBC panel - Blood by Automated count ISHA VALENTINO Start: 05-17-2023 TYPE AND SCREEN ISHA VALENTINO Start: 05-17-2023 STAPHYLOCOCCUS AUREU S/MRSA COLONIZATION, CULTURE ISHA VALENTINO Start: 05-17-2023 REQUEST FOR PRE-ADMI SSION TESTING VISIT ISHA VALENTINO Start: 04-24-2023 CASE REQUEST OPERATING ROOM ISHA VALENTINO Start: 04-24-2023 Hemoglobin A1c/Hemoglobin.total in Blood ISHA VALENTINO Start: 04-24-2023 XR SCOLIOSIS 2 VIEW (NON EOS) ISHA VALENTINO Start: 02-07-2023 Local anesthetic sac ral epidural block MD Major Stevens Work Phone: Start: 01-17-2023 Injection of local anesthetic into sacroiliac joint MD Major Stevens Work Phone: Start: 12-15-2022 MR lumbar spine wo con MD Major Stevens Work Phone: Start: 09-13-[address] JOSUHA PADILLA Comment on above: Performed By: #### A 1C #### [facility] [address] [place] [address] Dr. Mariann Odom Plan of Treatment Date Care Activity Detail Author Start: 11-25-2023 Influenza vaccination Influenz a Vaccine (Season Ended) [facility] Start: 07-24-2023 Hemoglobin A1c measurement Diabetes: Hemoglobin A1C [facility] Start: 07-10-2023 End: 07-10-2023 Patient encounter procedure 07/10/2023 11:40 AM EDT Office Visit [facility] [address] [phone] [place] [id number] [address] Department [place] [address] [facility] Start: 06-13-2023 End: 06-13-2023 Clinical Support 06/13/2023 10:45 AM EDT Clinical Support [facility] [place] [address] [address] [facility] [address] [place] [phone] [facility] [place] Start: 06-01-2023 End: 06-01-2023 Admission to same day surgery center 06/01/2023 7:15 AM EST - 06/01/2023 12:55 PM EST Surgery [facility] [place] [address] [address] [place] [phone] [place] [id number] [address] Department [place] [address] L4-5 and L5-S1 transforaminal lumbar interbody fusion with placement of interbody cage with decompression L3-4 posterior column osteotomy with L2-3 laminectomy and facetectomy and L2-S1 instrumented fusion using local bone autograft and BMP with pelvic fixation. [62308 (CPT )] [facility] [place] Comment on above: L4-5 and L5-S1 trans foraminal lumbar interbody fusion with placement of interbody cage with decompression L3-4 posterior column osteotomy with L2-3 laminectomy and facetectomy and L2-S1 instrumented fusion using local bone autograft and BMP with pelvic fixation. [94659 (CPT )] Start: 06-01-2023 End: 06-01-2023 Arthdsis post/posterolatrl/postin terbody lumbar Fusion Spine Transforaminal Interbody Lumbar with Navigation Spinal stenosis of lumbar region with neurogenic claudication Sagittal plane imbalance Scoliosis of thoracolumbar region due to degenerative disease of spine in adult Lumbar foraminal stenosis Lumbar radiculopathy, acute Lumbar stenosis with neurogenic claudication 06/01/2023 7:15 AM EST [facility] [place] Start: 06-01-2023 Subsequent hospital visit by physician 06/01/2023 5:45 AM EST Hospital Encounter [facility] [id number] [place] [address] [place] [address] [address] Department of Neurological Surgery [place] [id number] [facility] [place] Start: 04-17-2023 End: 04-17-2023 Patient encounter procedure 04/17/2023 9:00 AM EST Office Visit [facility] [address] [place] [address] Dino Villa MD [address] [place] [address] [facility] Start: 04-12-2023 End: 04-12-2024 DOWNLOAD POWERSHARE IMAGES TO [facility] DOWNLOAD POWERSHARE IMAGES TO [facility] Imaging Routine Back pain, unspecified back location, unspecified back pain laterality, unspecified chronicity Expected: 04/12/2023, Expires: 04/12/[address] [facility] Work Phone: Comment on above: Expected: 04/12/2023 , Expires: 04/12/2024 Start: 02-07-2023 [facility] Start: 01-17-2023 [facility] Start: 11-24-2022 COVID-19 Vaccine ( season) COVID-19 Vaccine ( season) [facility] Start: 11-24-2022 Influenza vaccination Influenza Vacc ine (#1) [facility] Start: 2022 RSV patient s and/or patients aged 60+ years (1 - 1-dose 60+ series) RSV patients and/or patients aged 60+ years (1 - 1-dose 60+ series) [facility] Start: 2022 RSV vaccine (optiona l 60+ years) RSV vaccine (optional 60+ years) [facility] Start: 09-30-2020 COVID-19 Vaccine (2 - Bev risk series) COVID-19 Vaccine (2 - Bev risk series) [facility] Start: 2012 Shingles (RZV) Vacci ne (1 of 2) Shingles (RZV) Vaccine (1 of 2) [facility] Start: 2012 Zoster Vaccines (1 of 2) Zoster Vacc mary (1 of 2) [facility] Start: 2007 Screening for malign ant neoplasm of colon [facility] Start: 1997 Lipid panel Cholesterol [facility] Start: 1984 DTaP/Tdap/Td Vaccine s (1 - Tdap) DTaP/Tdap/Td Vaccines (1 - Tdap) [facility] Start: 1981 Urine screening for protein Diabetes: Urine Protein Screening [facility] Start: 1981 Zoster Vaccines (1 of 2) Zoster Vacc mary (1 of 2) [facility] Start: 1980 Hepatitis C screening [facility] Start: 1980 Tetanus + diphtheria + acellular pertussis vaccine (product) Tdap Booster [facility] Start: 1977 HIV screening HIV Test [facility] Start: 1972 Diabetic foot examination Diabetes: Foot Exam [facility] Start: 1972 Glaucoma screening Diabetes: R etinopathy Screening [facility] Start: 1968 Pneumococcal Vaccine : Pediatrics (0 to 5 Years) and At-Risk Patients (6 to 64 Years) (1 - PCV) Pneumococcal Vaccine: Pediatrics (0 to 5 Years) and At-Risk Patients (6 to 64 Years) (1 - PCV) [facility] Start: 1968 Pneumococcal Vaccine : Pediatrics (0 to 5 Years) and At-Risk Patients (6 to 64 Years) (1 of 2 - PCV) Pneumococcal Vaccine: Pediatrics (0 to 5 Years) and At-Risk Patients (6 to 64 Years) (1 of 2 - PCV) [facility] Start: 1963 MMR Vaccines (1 of 1 - Standard series) MMR Vaccines (1 of 1 - Standard series) [facility] Start: 1962 HIV screening HIV Screening [facility] Start: 1962 Lipid panel Lipid Panel [facility] Start: 1962 Screening for malign ant neoplasm of colon [facility] Start: 1962 Yearly Adult Physical Yearly Adult P hysical [facility] Arthdsis post/posterolatrl/postin terbody lumbar Fusion Spine Transforaminal Interbody Lumbar with Navigation Spinal stenosis of lumbar region with neurogenic claudication Sagittal plane imbalance Scoliosis of thoracolumbar region due to degenerative disease of spine in adult Lumbar foraminal stenosis Lumbar radiculopathy, acute Lumbar stenosis with neurogenic claudication [facility] Work Phone: End: 06-01-2023 Glucose [Mass/volume] in Serum or Plasma [facility] Service Area Work Phone: Comment on above: Once (Lab) for 1 Occ urrences starting 06/01/2023 until 06/01/2023 As needed (Lab) unti l discontinued starting 06/01/2023 End: 06-01-2023 Incentive spirometry Instruct Incentive spirometry Instruct Respiratory Care Routine Once for 1 Occurrences starting 06/01/2023 until 06/01/2023 [facility] Work Phone: Comment on above: Once for 1 Occurrenc es starting 06/01/2023 until 06/01/2023 End: 06-01-2023 Interoperative monitoring - IOM Interoperative monitoring - IOM Neurology Routine Once for 1 Occurrences starting 06/01/2023 until 06/01/2023 [facility] Work Phone: Comment on above: Once for 1 Occurrenc es starting 06/01/2023 until 06/01/2023 Patient Education Lori Non Diagn ostic Block [facility] Work Phone: Patient referral [facility] Work Phone: End: 06-01-2023 Pulse oximetry, continuous Pulse oximetry, continuous Respiratory Care Routine Continuous until discontinued starting 06/01/2023 [facility] Service Area Work Phone: Comment on above: Continuous until dis continued starting 06/01/2023 End: 06-02-2023 Pulse oximetry, continuous Pulse oximetry, continuous Respiratory Care Routine Continuous until discontinued starting 06/02/2023 [facility] Work Phone: Comment on above: Continuous until dis continued starting 06/02/2023 End: 06-07-2023 Renal function 2000 panel - Serum or Plasma Renal function panel Lab Routine Morning draw (Lab) for 1 Occurrences starting 06/07/2023 until 06/07/2023 [facility] Work Phone: Comment on above: Morning draw (Lab) f or 1 Occurrences starting 06/07/2023 until 06/07/2023 End: 06-02-2023 Urethral Catheter Removal Urethral Catheter Removal Procedures Routine Once for 1 Occurrences starting 06/02/2023 until 06/02/2023 [facility] Work Phone: Comment on above: Once for 1 Occurrenc es starting 06/02/2023 until 06/02/2023 End: 04-24-2023 X-ray scoliosis 2 View (NON EOS) [facility] Service Area Work Phone: Comment on above: Once for 1 Occurrenc es starting 04/24/2023 until 04/24/2023 End: 07-10-2023 X-ray scoliosis 2 View (NON EOS) [facility] Service Area Work Phone: Comment on above: Once for 1 Occurrenc es starting 07/10/2023 until 07/10/2023 End: 08-14-2023 X-ray scoliosis 2 View (NON EOS) [facility] Service Area Work Phone: Comment on above: Once for 1 Occurrenc es starting 08/14/2023 until 08/14/2023 Immunizations Immunization Date Immunization Notes Care Provider Lisandra cardoso 01-19-2016 influenza, injectable,quadrivalen t, preservative free, pediatric Abel Lori Other [facility] Other 01-19-2016 influenza virus vaccine, unspecified formulation [address] Work Phone: 01-06-2015 influenza, injectable,quadrivalen t, preservative free, pediatric Abel Lori Other [facility] Other Payers Date Payer Category Payer Unknown [facility] [id number] 2023-Present PPO [id number] 2022 Self-pay [id number] 2022 Private Health Insurance [facility] [id number] 2022-Present [address] [place] [address] [id number]. [id number] 1962 Unknown [id number] 2.16.840.1.976668.3.579. 2.593 1962 Unknown [id number] 2.16.840.1.363750.3.579. 2.593 1962 Unknown [id number] 2.16.840.1.661448.3.579. 2.593 1962 Unknown [id number] 2.16.840.1.087968.3.579. 2.593 1962 Unknown [id number] 2.16.840.1.724652.3.579. 2.593 1962 Unknown [id number] 2.16.840.1.919447.3.579. 2.593 1962 Unknown [id number] 2.16.840.1.041406.3.579. 2.627 1962 Unknown [id number] 2.16.840.1.663294.3.579. 2.627 1962 Unknown [id number] 2.16.840.1.999070.3.579. 2.1245 1962 Unknown [id number] 2.16.840.1.756691.3.579. 2.124 1962 Unknown [id number] 2.16.840.1.868986.3.579. 2.1245 1962 Unknown [id number] 2.16.840.1.271699.3.579. 2.1245 1962 Unknown [id number] 2.16.840.1.983815.3.579. 2.1242 1962 Unknown [id number] 2.16.840.1.318942.3.579. 2.1242 1962 Unknown [id number] 2.16.840.1.221601.3.579. 2.124 1962 Unknown [id number] 2.16.840.1.343974.3.579. 2.1242 1962 Unknown [id number] 2.16.840.1.325884.3.579. 2.1242 1962 Unknown [id number] 2.16.840.1.106692.3.579. 2.1242 1962 Unknown [id number] 2.16.840.1.002013.3.579. 2.9 1962 Unknown [id number] 2.16.840.1.845532.3.579. 2.1258 1962 Unknown [id number] 2.16.840.1.799177.3.579. 2.1258 1962 Unknown [id number] 2.16.840.1.955795.3.579. 2.1258 1962 Unknown [id number] 2.16.840.1.943132.3.579. 2.1258 1962 Unknown [id number] 2.16.840.1.217976.3.579. 2.1258 1962 Unknown [id number] 2.16.840.1.236932.3.579. 2.1258 1962 Unknown [id number] 2.16.840.1.306458.3.579. 2.1258 1962 Unknown [id number] 2.16.840.1.501414.3.579. 2.1258 1962 Unknown [id number] 2.16.840.1.552843.3.579. 2.1258 1962 Unknown [id number] 2.16.840.1.179573.3.579. 2.1258 1962 Unknown [id number] 2.16.840.1.808042.3.579. 2.1258 1962 Unknown [id number] 2.16.840.1.736174.3.579. 2.1259 1959 Unknown [id number] Unknown [id number] Unknown [id number] 2.16.840.1.148437.3.579. 2.531 Unknown [id number] 2.16.840.1.995737.3.579. 2.531 Unknown [id number] 2.16.840.1.822219.3.579. 2.531 Unknown [id number] 2.16.840.1.240241.3.579. 2.531 Social History Date Type Detail Facility Start: 05-17-2023 End: 06-01-2023 Sex Assigned At [facility] Start: 1960 Sex Assigned At Male [facility] Tobacco smoking stat NHIS Tobacco smoking consumption unknown [facility] Start: 1960 Sex Assigned At [facility] file [facility] Start: 04-14-2023 End: 08-14-2023 Exposure to SARS-CoV-2 (event) Not sure [facility] Start: 05-10-2023 Tobacco smoking stat [facility] Never smoked tobacco [facility] Start: 05-10-2023 Tobacco use and exposure Smokeless tobacco non-user [facility] Work Phone: Start: 05-17-2023 End: 08-14-2023 Alcohol intake Ex-drinker (finding) [facility] Work Phone: Start: 05-17-2023 End: 06-01-2023 History of Social function [facility] How often to you hav e a drink containing alcohol? Never [facility] How many standard drinks containing alcohol do you have on a typical day? Patient does not drink [facility] Work Phone: In the past 12 month s, was there a time when you were not able to pay the mortgage or rent on time? No [facility] Work Phone: Medical Equipment Procedure Code Equipment Code Equipment Origin al Text Equipment Identifier Dates Modulus [id number]-[id number] 8 Degree [id number] Start: 06-01-2023 Comment on above: Description: Per lyly l only jdr 06/03 Moduls Tlif- [id number] Degree [id number] Start: 06-01-2023 Comment on above: Description: Per lyly l only jdr 06/03 Infuse Bmp Small - [id number] - [id number] Start: 06-01-2023 Screw, Reline Lock, 5.5mm Open Tulip - [id number] Start: 06-01-2023 Screw, Reline-O, 7.5x50mm 2s Polyaxial - [id number] Start: 06-01-2023 Reline-O Conn, 5-6/5-6mm O-O Med - [id number] Start: 06-01-2023 Screw, Reline-O, 8.5x50mm 2s Polyaxial - [id number] Start: 06-01-2023 Screw, Reline-O, 8.5x80mm 2s Poly Iliac - [id number] Start: 06-01-2023 Screw, Reline-O, 6.5x45mm 2s Polyaxial - [id number] Start: 06-01-2023 Screw, Reline-O, 7.5x45mm 2s Polyaxial - [id number] Start: 06-01-2023 Unid Exp Ti Jaren 5.5mm 4+ Lv [id number] Start: 06-01-2023 20mm Offset Open [id number] Start: 06-01-2023 Comment on above: Description: Aiden rodriguez 06/03 Goals Date Patient Goal Desired Activity /State Personal health goal Clinical Notes 12-26-2022 to 08-14-2023 Isha Valentino MD - 08/14/2023 2:40 PM Russ Knox APRN-OREN - 06/06/2023 4:56 PM Kaylah Chavez PT - 06/06/2023 4:00 PM Russell Barboza MD - 06/06/2023 2:16 AM EDT Note Date & Type Note Facility 08-14-2023 History of Present illness Narrative I just had the pleasure of seeing Mr. Baer back in the Neurosurgery Spine Clinic at the [facility]. He is a very pleasant 63 -year-old male, who recently underwent a L2-S1 Fusion with me on 06/01/2023 and is almost 3 months out from his surgery. Mr. Baer is doing well from his surgery. He denies any significant radiculopathic pain that he had before the surgery and does not have any significant back pain either. Alert and oriented No apparent distress. Motor strength baseline with no new weakness. Sensory exam grossly intact Gait Normal Incision well healed. AP and lateral long cassette scoliosis films shows well placed instrumentation with no evidence of any instrumentation failure. There are no concerning neurological issues at this point. He has been doing physical therapy and he will be completing the sessions he needs to do pretty soon. At this point of time he would like to return to work and I believe we can but should avoid excessive bending twisting and lifting if he can. At his point of time, we will see him back in clinic at 1 year prakash from the time of surgery with an AP and lateral long cassette scoliosis films. It was a pleasure to participate in Mr. Baer care. All questions were answered to the patients satisfaction and he explained understanding of the further treatment plan. Isha Valentino MD, [facility], FAANS Director - Minimally Invasive Spine Surgery [facility] Housekeeper Supervisor of Neurological Surgery [facility] [employer] [place], [place] ---Some of this note was completed using [employer] voice recognition technology and sometimes the software misinterprets words. This may include unintended errors with respect to translation of words, typographical errors or grammar errors which may not have been identified prior to finalization of the chart note. Please take this into account when reading this note--- documented in this encounter [facility] Work Phone: 06-06-2023 Hospital course Narrative Discharge Diagnosis Lumbar radiculopathy, right Issues Requiring Follow-Up Home Care Agency Test Results Pending At Discharge Pending Labs No current pending labs. Hospital Course 63 year old male with Hx of HTN, DM2 c/b peripheral neuropathy, psoriatic arthritis (on methotrexate and leflunomide), who presented with progressive chronic low back pain and bilateral lower extremity radiculopathy R>L. 3/8 s/p L2-pelvis instrumented fusion, L3-4 PCO, L4-5 and L5-S1 TLIFs. 06/05 drain removed PT/OT eval recommend SNF; re-eval 06/05 recommend home with Home Care. Discharged with scheduled follow up. Pertinent Physical Exam At Time of Discharge Physical Exam General: up with assist, no distress, wants to go home HEENT: normocephalic; JIMMY; tongue midline Cardiac: S1 & S2 regular Resp: equal chest expansion, lungs clear bilaterally Abd: BS+ x4, soft, non-tender Extr: no edema, pulses palpable x4 Neuro: A&Ox3, follows commands, BARRETT's, BUE's 5/5, BLE's 5/5, numbness to LE's bilaterally Skin: back incision clean, dry, intact with glue Psyche: calm, cooperative Home Medications Medication List START taking these medications cyclobenzaprine 10 mg tablet; Commonly known as: Flexeril; Take 1 tablet (10 mg) by mouth 3 times a day as needed for muscle spasms for up to 7 days. lidocaine 4 % patch; Place 1 patch over 12 hours on the skin once daily for 7 days. Apply 1 patch to low back Daily for 12 hours, on in morning, off at bedtime. Do Not Place Directly Over Incision Do not start before June 07, 2023.; Start taking on: June 07, 2023 oxyCODONE 5 mg immediate release tablet; Commonly known as: Roxicodone; Take 1 tablet (5 mg) by mouth every 6 hours if needed for moderate pain (4 - 6) or severe pain (7 - 10) for up to 7 days. ICD 10: G89.18 sennosides-docusate sodium 8.6-50 mg tablet; Commonly known as: Marycruz-Colace; Take 2 tablets by mouth 2 times a day for 7 days. Take while taking pain medication oxycodone to prevent constipation CHANGE how you take these medications acetaminophen 325 mg tablet; Commonly known as: Tylenol; Take 2 tablets (650 mg) by mouth every 6 hours. Take every 6 hours scheduled while having pain then take only as needed for Mild pain; What changed: medication strength, how much to take, when to take this, additional instructions leflunomide 20 mg tablet; Commonly known as: Arava; Take 1 tablet (20 mg) by mouth once daily. DO NOT RESUME UNTIL 06/15/2023 Do not start before June 15, 2023.; Start taking on: June 15, 2023; What changed: additional instructions, These instructions start on June 15, 2023. If you are unsure what to do until then, ask your doctor or other care provider. methotrexate 2.5 mg tablet; Commonly known as: Trexall; Take 3 tablets (7.5 mg total) by mouth 1 (one) time per week. Follow directions carefully, and ask to explain any part you do not understand. Take exactly as directed. Takes on Sunday. DO NOT RESUME UNTIL 06/15/2023; Start taking on: June 15, 2023; What changed: additional instructions, These instructions start on June 15, 2023. If you are unsure what to do until then, ask your doctor or other care provider. CONTINUE taking these medications folic acid 1 mg tablet; Commonly known as: Folvite glipiZIDE 10 mg tablet; Commonly known as: Glucotrol Jardiance 25 mg; Generic drug: empagliflozin metFORMIN 1,000 mg tablet; Commonly known as: Glucophage pioglitazone 45 mg tablet; Commonly known as: Actos STOP taking these medications chlorhexidine 0.12 % solution; Commonly known as: Peridex Outpatient Follow-Up Future Appointments Date Time Provider Department Center 06/13/2023 10:45 AM [facility]ERY [facility] NURSE [id number] Academic 07/10/2023 11:40 AM Isha Valentino MD [id number] [facility] ELIECER Hernandez documented in this encounter [facility] Work Phone: 06-06-2023 History of Present illness Narrative Physical Therapy Physical Therapy Treatment Patient Name: Melvin Baer Today's Date: 06/06/2023 Time Calculation Start Time: 150 Stop Time: 153 Time Calculation (min): 24 min Assessment/Plan PT Assessment PT Assessment Results: Decreased strength, Decreased endurance, Impaired balance, Decreased mobility, Pain, Orthopedic restrictions, Decreased skin integrity Rehab Prognosis: Excellent Evaluation/Treatment Tolerance: Patient tolerated treatment well Medical Staff Made Aware: Yes Strengths: Ability to acquire knowledge, Attitude of self, Coping skills, Living arrangement secure, Premorbid level of function, Support of Caregivers Barriers to Participation: (none) End of Session Communication: Bedside nurse, Mortgage Servicing Specialist, Physician Assessment Comment: 63 yo male with Right lumbar radiculopathy presents s/p L2-pelvis instrumented fusion, L3-4 PCO, L4-5 and L5-S1 TLIFs with post-op pain, mild deconditioning and subtle balance deficits; overall mobility much improved and pt safe to DC home with assist and low intensity home therapies, no PT equipment needed. End of Session Patient Position: Up in chair, Alarm off, not on at start of session PT Plan Inpatient/Swing Bed or Outpatient: Inpatient PT Plan Treatment/Interventions: Bed mobility, Transfer training, Gait training, Stair training, Balance training, Neuromuscular re-education, Endurance training, Therapeutic exercise, Therapeutic activity, Home exercise program, Postural re-education PT Plan: Skilled PT PT Frequency: 5 times per week PT Discharge Recommendations: Low intensity level of continued care Equipment Recommended upon Discharge: (no needs; to borrow WW and shower chair from friend) PT Recommended Transfer Status: Assist x1, Assistive device, Stand by assist (WW) PT - OK to Discharge: Yes (PT evaluation completed and DC recs made) General Visit Information: PT Visit PT Received On: 06/06/23 General Reason for Referral: Admitted 05/31 for surgery; dx: Right lumbar radiculopathy; 05/31 s/p L2-pelvis instrumented fusion, L3-4 PCO, L4-5 and L5-S1 TLIFs Past Medical History Relevant to Rehab: HTN, DM2 c/b peripheral neuropathy, psoriatic arthritis (on methotrexate and leflunomide), p/w progressive chronic low back pain and bilateral lower extremity radiculopathy R>L, scoliosis Missed Visit: No Family/Caregiver Present: Yes Caregiver Feedback: patient's present and supportive Prior to Session Communication: Bedside nurse Patient Position Received: Bed, 3 rail up, Alarm off, not on at start of session Preferred Learning Style: verbal, visual General Comment: Pt supine alert and engaged, significant progress with gait/stairs, is now safe to DC home with assist; has been up walking with in hallways. Subjective Precautions: Precautions Medical Precautions: Fall precautions Post-Surgical Precautions: Spinal precautions (mild tachycardia) Vital Signs: Vital Signs Heart Rate: (sitting after first walk: HR 100 O2 99%; sitting after 2nd walk: HR 103 O2 98%) Objective Pain: Pain Assessment Pain Assessment: 0-10 Pain Score: (4-5 in back area) Pain Interventions: Ambulation/increased activity, Rest, Repositioned Response to Interventions: appears comfortable, had already been given pain meds earlier Cognition: Cognition Overall Cognitive Status: Within Functional Limits Arousal/Alertness: Appropriate responses to stimuli Orientation Level: Oriented X4 Following Commands: Follows all commands and directions without difficulty Postural Control: Postural Control Trunk Control: mild impairment with dynamic gait (no LOB, see balance section) Posture Comment: upper thoracic kyphosis in standing, able to correct temporarily (but reports is a habit from pre-op) Static Sitting Balance Static Sitting-Balance Support: Feet supported, Bilateral upper extremity supported Static Sitting-Level of Assistance: Modified independent Static Standing Balance Static Standing-Balance Support: Bilateral upper extremity supported (on WW) Static Standing-Level of Assistance: Close supervision Static Standing-Comment/Number of Minutes: no LOB Dynamic Standing Balance Dynamic Standing-Balance Support: Bilateral upper extremity supported (on WW) Dynamic Standing-Balance: (gait and transfers) Dynamic Standing-Comments: no LOB Activity Tolerance: Activity Tolerance Endurance: Endurance does not limit participation in activity Treatments: Therapeutic Exercise Therapeutic Exercise Performed: Yes Therapeutic Exercise Activity 1: reviewed LE anti-embolics sitting: ankle pumps, LAQs Bed Mobility Bed Mobility: Yes Bed Mobility 1 Bed Mobility 1: Rolling right Level of Assistance 1: Modified independent Bed Mobility Comments 1: HOB elevated 45 degrees, use of rail, out on Left side Bed Mobility 2 Bed Mobility 2: Side lying left to sit Level of Assistance 2: Contact guard, Minimal verbal cues Bed Mobility Comments 2: HOB elevated, use of rail Ambulation/Gait Training Ambulation/Gait Training Performed: Yes Ambulation/Gait Training 1 Surface 1: Level tile Device 1: Rolling walker Assistance 1: Close supervision Quality of Gait 1: (upper thoracic kyphosis, mildly decreased shamika and smaller steps, no LOB) Comments/Distance (ft) 1: 150 Ambulation/Gait Training 2 Surface 2: Level tile Device 2: Rolling walker Assistance 2: Close supervision, Minimal verbal cues Quality of Gait 2: (as noted) Comments/Distance (ft) 2: 140 Transfers Transfer: Yes Transfer 1 Transfer From 1: Sit to, Stand to Transfer to 1: Sit, Stand Technique 1: Sit to stand, Stand to sit Transfer Device 1: Walker Transfer Level of Assistance 1: Contact guard, Minimal verbal cues Transfers 2 Transfer From 2: Stand to (bench) Transfer to 2: Stand (bench) Technique 2: Sit to stand, Stand to sit, Stand pivot Transfer Device 2: Walker Transfer Level of Assistance 2: Close supervision, Minimal verbal cues Trials/Comments 2: no LOB Stairs Stairs: Yes (up/down 4 x 3 steps (consecutively) with 1 rail and min CRIME INVESTIGATOR SPECIAL AGENT, 1 step at a time) Outcome Measures: [facility] Basic Mobility Turning from your back to your side while in a flat bed without using bedrails: None Moving from lying on your back to sitting on the side of a flat bed without using bedrails: A little Moving to and from bed to chair (including a wheelchair): A little Standing up from a chair using your arms (e.g. wheelchair or bedside chair): A little To walk in hospital room: A little Climbing 3-5 steps with railing: A little Basic Mobility - Total Score: 19 Education Documentation Body Mechanics, taught by Itzel Chavez PT at 06/06/2023 3:38 PM. Learner: Significant Other, Patient Readiness: Acceptance Method: Explanation, Demonstration Response: Demonstrated Understanding Comment: spine precautions, safe gait with WW, safe stairclimbing, revised DC recs, bed mobility, LE anti-embolics, progress, vitals Home Exercise Program, taught by Itzel Chavez PT at 06/06/2023 3:38 PM. Learner: Significant Other, Patient Readiness: Acceptance Method: Explanation, Demonstration Response: Demonstrated Understanding Comment: spine precautions, safe gait with WW, safe stairclimbing, revised DC recs, bed mobility, LE anti-embolics, progress, vitals Mobility Training, taught by Itzel Chavez PT at 06/06/2023 3:38 PM. Learner: Significant Other, Patient Readiness: Acceptance Method: Explanation, Demonstration Response: Demonstrated Understanding Comment: spine precautions, safe gait with WW, safe stairclimbing, revised DC recs, bed mobility, LE anti-embolics, progress, vitals Precautions, taught by Itzel Chavez PT at 06/06/2023 3:38 PM. Learner: Significant Other, Patient Readiness: Acceptance Method: Explanation, Demonstration Response: Demonstrated Understanding Comment: spine precautions, safe gait with WW, safe stairclimbing, revised DC recs, bed mobility, LE anti-embolics, progress, vitals Education Comments No comments found. OP EDUCATION: Encounter Problems Encounter Problems (Active) Mobility STG - Patient will ambulate household distance mod I with RW (Not met) Start: 06/02/23 Expected End: 06/16/23 Resolved: 06/06/23 Updated to: ambulate 500' with WW modified independent Update reason: time for update STG - Patient will ascend and descend 2 steps with 2 handrails mod I (Not met) Start: 06/02/23 Expected End: 06/16/23 Resolved: 06/06/23 Updated to: up/down 12 steps with 1 rail one step at a time with SBA, no LOB Update reason: time for update ambulate 500' with WW modified independent (Progressing) Start: 06/06/23 Expected End: 06/20/23 up/down 12 steps with 1 rail one step at a time with SBA, no LOB (Progressing) Start: 06/06/23 Expected End: 06/20/23 PT Transfers STG - Transfer from bed to chair mod I with RW (Not met) Start: 06/02/23 Expected End: 06/16/23 Resolved: 06/06/23 Updated to: sit to/from stand and bed to chair mod I with RW Update reason: time for update STG - Patient will perform bed mobility mod I (Progressing) Start: 06/02/23 Expected End: 06/20/23 STG - Patient will transfer sit to and from stand mod I with RW (Not met) Start: 06/02/23 Expected End: 06/16/23 Resolved: 06/06/23 Updated to: static stand with WW modified independent >7 minutes Update reason: time for update sit to/from stand and bed to chair mod I with RW (Progressing) Start: 06/06/23 Expected End: 06/20/23 static stand with WW modified independent >7 minutes (Progressing) Start: 06/06/23 Expected End: 06/20/23 Pain - Adult Melvin Baer is a 63 y.o. male on day 5 of admission presenting with Lumbar radiculopathy, right. Subjective Patient getting out of bed, having bowel movements Objective Physical Exam BUE 5/5 BLE 5/5 SILT Incision cdi Last Recorded Vitals Blood pressure 173/85, pulse 67, temperature 36.3 C (97.3 F), resp. rate 18, height 1.778 m (5' 10 ), weight 95.4 kg (210 lb 5.1 oz), SpO2 97 %. Intake/Output last 3 Shifts: I/O last 3 completed shifts: In: 540 (5.7 mL/kg) [P.O.:540] Out: 1505 (15.8 mL/kg) [Urine:1500 (0.4 mL/kg/hr); Drains:5] Weight: 95.4 kg Relevant Results Assessment/Plan Principal Problem: Lumbar radiculopathy, right Active Problems: Spinal stenosis of lumbar region with neurogenic claudication Sagittal plane imbalance Scoliosis of thoracolumbar region due to degenerative disease of spine in adult Lumbar foraminal stenosis Lumbar radiculopathy, acute Lumbar stenosis with neurogenic claudication h/o HTN, DM2 c/b peripheral neuropathy, psoriatic arthritis (on methotrexate and leflunomide), p/w progressive chronic low back pain and bilateral lower extremity radiculopathy R>L, 3/8 s/p L2-pelvis instrumented fusion, L3-4 PCO, L4-5 and L5-S1 TLIFs ASSESSMENT floor Maintain drain; will dc upon dispo Oral pain meds EOS films today PTOT-SNF MEDICALLY CLEARED FOR DISCHARGE Alyssa Barboza MD Patient recd mod -intensity by pt/ot referral sent to [facility] which is the [facility] of patient Melvin Baer is a 63 y.o. male on day 4 of admission presenting with Lumbar radiculopathy, right. Subjective NAEON Objective Physical Exam BUE 5/5 BLE 5/5 SILT Incision cdi Last Recorded Vitals Blood pressure 158/87, pulse 76, temperature 36.3 C (97.3 F), temperature source Temporal, resp. rate 16, height 1.778 m (5' 10 ), weight 95.4 kg (210 lb 5.1 oz), SpO2 98 %. Intake/Output last 3 Shifts: I/O last 3 completed shifts: In: 1020 (10.7 mL/kg) [P.O.:1020] Out: 2820 (29.6 mL/kg) [Urine:2700 (0.8 mL/kg/hr); Drains:120] Weight: 95.4 kg Relevant Results This patient has a urinary catheter Reason for the urinary catheter remaining today? Urine catheter unnecessary, will be removed today Assessment/Plan Principal Problem: Lumbar radiculopathy, right Active Problems: Spinal stenosis of lumbar region with neurogenic claudication Sagittal plane imbalance Scoliosis of thoracolumbar region due to degenerative disease of spine in adult Lumbar foraminal stenosis Lumbar radiculopathy, acute Lumbar stenosis with neurogenic claudication h/o HTN, DM2 c/b peripheral neuropathy, psoriatic arthritis (on methotrexate and leflunomide), p/w progressive chronic low back pain and bilateral lower extremity radiculopathy R>L, 3/8 s/p L2-pelvis instrumented fusion, L3-4 PCO, L4-5 and L5-S1 TLIFs ASSESSMENT Tele BM Maintain drain; will dc upon dispo Oral pain meds No uprights PTOT-SNF MEDICALLY CLEARED FOR DISCHARGE Donato Currie MD Physical Therapy Physical Therapy Treatment Patient Name: Melvin Baer Today's Date: 06/04/2023 Time Calculation Start Time: 1416 Stop Time: 1440 Time Calculation (min): 23 min Assessment/Plan PT Assessment PT Assessment Results: Decreased strength, Decreased endurance, Impaired balance, Decreased mobility, Pain, Orthopedic restrictions End of Session Communication: Bedside nurse Assessment Comment: Pt remains limited by dec strength, balance, & endurance & pain limiting functional mobility. Would benefit from continued skilled therapy to address these deficits and improve safety and indep End of Session Patient Position: Up in chair, Alarm off, not on at start of session PT Plan Treatment/Interventions: Bed mobility, Transfer training, Stair training, Gait training, Balance training, Neuromuscular re-education, Strengthening, Endurance training, Therapeutic exercise, Range of motion, Therapeutic activity, Positioning PT Plan: Skilled PT PT Frequency: Daily PT Discharge Recommendations: Moderate intensity level of continued care PT Recommended Transfer Status: Assist x1, Assistive device PT - OK to Discharge: Yes (Eval completed and D/C rec made) General Visit Information: PT Visit PT Received On: 06/04/23 Response to Previous Treatment: Patient with no complaints from previous session. General Family/Caregiver Present: No Prior to Session Communication: Bedside nurse Patient Position Received: Bed, 3 rail up, Alarm off, not on at start of session General Comment: Pt pleasant & cooperative; drain leaking -RN notified. Agreeable to therapy session Subjective Precautions: Precautions Medical Precautions: Fall precautions Post-Surgical Precautions: Spinal precautions Objective Pain: Pain Assessment Pain Assessment: 0-10 Pain Score: 4 Pain Type: Surgical pain Pain Location: Back Pain Interventions: Repositioned Cognition: Cognition Overall Cognitive Status: Within Functional Limits Activity Tolerance: Activity Tolerance Endurance: Tolerates 10 - 20 min exercise with multiple rests Treatments: Therapeutic Exercise Therapeutic Exercise Performed: Yes Therapeutic Exercise Activity 1: BLE x10- AP, LAQ, HF, GS Bed Mobility 1 Bed Mobility 1: Supine to sitting Level of Assistance 1: Minimum assistance, Minimal verbal cues Bed Mobility Comments 1: cueing for sequencing and logrolling Ambulation/Gait Training Ambulation/Gait Training Performed: Yes Ambulation/Gait Training 1 Surface 1: Level tile Device 1: Rolling walker Assistance 1: Contact guard Quality of Gait 1: Inconsistent stride length, Decreased step length, Antalgic Comments/Distance (ft) 1: 30' Transfer 1 Technique 1: Sit to stand, Stand to sit Transfer Device 1: Walker Transfer Level of Assistance 1: Minimum assistance, Minimal verbal cues Trials/Comments 1: cueing for safe hand placement Stairs Stairs: No Outcome Measures: [facility] Basic Mobility Turning from your back to your side while in a flat bed without using bedrails: A little Moving from lying on your back to sitting on the side of a flat bed without using bedrails: A little Moving to and from bed to chair (including a wheelchair): A little Standing up from a chair using your arms (e.g. wheelchair or bedside chair): A little To walk in hospital room: A little Climbing 3-5 steps with railing: Total Basic Mobility - Total Score: 16 Education Documentation Precautions, taught by Kailey Gonzales, PT at 06/04/2023 3:58 PM. Learner: Patient Readiness: Acceptance Method: Explanation Response: Verbalizes Understanding Education Comments No comments found. OP EDUCATION: Encounter Problems Encounter Problems (Active) Mobility STG - Patient will ambulate household distance mod I with RW (Progressing) Start: 06/02/23 Expected End: 06/16/23 STG - Patient will ascend and descend 2 steps with 2 handrails mod I (Progressing) Start: 06/02/23 Expected End: 06/16/23 PT Transfers STG - Transfer from bed to chair mod I with RW (Progressing) Start: 06/02/23 Expected End: 06/16/23 STG - Patient will perform bed mobility mod I (Progressing) Start: 06/02/23 Expected End: 06/16/23 STG - Patient will transfer sit to and from stand mod I with RW (Progressing) Start: 06/02/23 Expected End: 06/16/23 Pain - Adult 06/04/23 at 4:00 PM - Kailey Gonzales, PT 06/04/23 Transitional Care Coordination Progress Note: Patient discussed during interdisciplinary rounds. Team members present: DAWN JACQUES MD Plan per Medical/Surgical team: adm dx Lumbar radiculopathy, Maintain drain no uprights oral pain medications Discharge disposition: patient recd mod-intensity given list of snf choices medically ready 2-days Status-Inpatient Payer- [facility] Potential Barriers: None ADOD: 06/07/2023 Patricio Salas RN TCC [phone] Melvin Baer is a 63 y.o. male on day 3 of admission presenting with Lumbar radiculopathy, right. Subjective NAEON Objective Physical Exam BUE 5/5 BLE 5/5 SILT Incision cdi Last Recorded Vitals Blood pressure 156/81, pulse 87, temperature 36.9 C (98.4 F), temperature source Temporal, resp. rate 16, height 1.778 m (5' 10 ), weight 95.4 kg (210 lb 5.1 oz), SpO2 93 %. Intake/Output last 3 Shifts: I/O last 3 completed shifts: In: 2280 (23.9 mL/kg) [P.O.:480; I.V.:1800 (18.9 mL/kg)] Out: 3015 (31.6 mL/kg) [Urine:2625 (0.8 mL/kg/hr); Drains:390] Weight: 95.4 kg Relevant Results This patient has a urinary catheter Reason for the urinary catheter remaining today? Urine catheter unnecessary, will be removed today Assessment/Plan Principal Problem: Lumbar radiculopathy, right Active Problems: Spinal stenosis of lumbar region with neurogenic claudication Sagittal plane imbalance Scoliosis of thoracolumbar region due to degenerative disease of spine in adult Lumbar foraminal stenosis Lumbar radiculopathy, acute Lumbar stenosis with neurogenic claudication h/o HTN, DM2 c/b peripheral neuropathy, psoriatic arthritis (on methotrexate and leflunomide), p/w progressive chronic low back pain and bilateral lower extremity radiculopathy R>L, 05/31 s/p L2-pelvis instrumented fusion, L3-4 PCO, L4-5 and L5-S1 TLIFs ASSESSMENT Tele BM Maintain drain Oral pain meds No uprights PTOT-SNF Reji Bacon MD Associated attestation - Isha Valentino MD - 06/04/2023 1:00 PM EDT Vitals Stable. NO new Neurological deficits. Plan: OOB to chair and/or ambulate Incentive Spirometry DVT prophylaxis PT-OT Aggressive bowel regimen Occupational Therapy Evaluation Patient Name: Melvin Baer Today's Date: 06/03/2023 Time Calculation Start Time: 1145 Stop Time: 1219 Time Calculation (min): 34 min Assessment IP OT Assessment OT Assessment: impaired ADLs/transfers Prognosis: Good End of Session Communication: Bedside nurse End of Session Patient Position: Up in chair, Alarm off, not on at start of session (patient's present in room) Plan: Treatment Interventions: ADL retraining, Functional transfer training, Endurance training, Patient/family training, Equipment evaluation/education, Neuromuscular reeducation, Compensatory technique education OT Frequency: 3 times per week OT Discharge Recommendations: Low intensity level of continued care OT Recommended Transfer Status: Minimal assist, Assist of 1 OT - OK to Discharge: Yes Subjective General: General Reason for Referral: p/w progressive chronic low back pain and bilateral lower extremity radiculopathy R>L, 3/8 s/p L2-pelvis instrumented fusion, L3-4 PCO, L4-5 and L5-S1 TLIFs Past Medical History Relevant to Rehab: HTN, DM2 c/b peripheral neuropathy, psoriatic arthritis Family/Caregiver Present: Yes Caregiver Feedback: patient's present and supportive Prior to Session Communication: Bedside nurse Patient Position Received: Bed, 3 rail up, Alarm off, not on at start of session General Comment: Patient pleasant, agreeable to OT Precautions: Hearing/Visual Limitations: hearing is WFL Medical Precautions: Fall precautions Post-Surgical Precautions: Spinal precautions Pain: Pain Assessment Pain Assessment: 0-10 Pain Score: (patient reports 6/10 surgical back pain, RN provided pain medication during session) Objective Cognition: Overall Cognitive Status: Within Functional Limits Arousal/Alertness: Appropriate responses to stimuli Orientation Level: Oriented X4 Following Commands: Follows one step commands without difficulty Confusion Assessment Method (CAM) Acute Onset and Fluctuating Course (1A): No Home Living: Type of Home: House Lives With: Spouse Home Adaptive Equipment: (FWW and rollator) Home Layout: (2-story, can stay on 1st floor by sleeping in recliner and 1/2 bath on 1st floor) Home Access: Stairs to enter with rails Entrance Stairs-Rails: Both Entrance Stairs-Number of Steps: 3 Bathroom Shower/Tub: Tub/shower unit Prior Function: Level of Mclean: Independent with ADLs and functional transfers, Independent with homemaking with ambulation ADL Assistance: Independent Homemaking Assistance: Independent Ambulatory Assistance: Independent Vocational: (works for [employer]) Leisure: enjoys going to [email or web address] games Hand Dominance: Right Prior Function Comments: (+) drive ADL: Eating Assistance: Independent Eating Deficit: Setup Grooming Assistance: Stand by Bathing Assistance: Moderate Bathing Deficit: (anticipated) UE Dressing Assistance: Stand by LE Dressing Assistance: Maximal LE Dressing Deficit: Don/doff R sock, Don/doff L sock Toileting Assistance with Device: Minimal Toileting Deficit: (anticipated) Bed Mobility/Transfers: Bed Mobility Bed Mobility: Yes Bed Mobility 1 Bed Mobility 1: Supine to sitting Level of Assistance 1: Minimum assistance, Minimal verbal cues Bed Mobility Comments 1: cues for log-roll, HOB nearly flat Transfers Transfer: Yes Transfer 1 Transfer From 1: Sit to, Stand to Transfer to 1: Sit, Stand Technique 1: Sit to stand, Stand to sit Transfer Device 1: Walker Transfer Level of Assistance 1: Minimum assistance, Minimal verbal cues Transfers 2 Transfer From 2: Bed to Transfer to 2: Chair with arms Technique 2: (via taking steps) Transfer Device 2: Walker Transfer Level of Assistance 2: Contact guard, Minimal verbal cues Functional Mobility: Functional Mobility Functional Mobility Performed: Yes Functional Mobility 1 Comments 1: functional mobility short distances in room with FWW and CGA Sitting Balance: Static Sitting Balance Static Sitting-Level of Assistance: Distant supervision Dynamic Sitting Balance Dynamic Sitting-Comments: SBA Standing Balance: Static Standing Balance Static Standing-Level of Assistance: Contact guard Static Standing-Comment/Number of Minutes: FWW Dynamic Standing Balance Dynamic Standing-Comments: min-CGA with FWW Vision: Vision - Basic Assessment Current Vision: (wears glasses mostly for reading) Sensation: Sensation Comment: reports numbness/tingling in (B) feet, reports having this prior to surgery Strength: Strength Comments: (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 Daily Activity Putting on and taking off regular lower body clothing: A lot Bathing (including washing, rinsing, drying): A lot Putting on and taking off regular upper body clothing: A little Toileting, which includes using toilet, bedpan or urinal: A little Taking care of personal grooming such as brushing teeth: A little Eating Meals: None Daily Activity - Total Score: 17 and E = Exercise and Early Mobility Current Activity: Ambulating in room Education Documentation Precautions, taught by Amita Jacques OT at 06/03/2023 2:12 PM. Learner: Patient Readiness: Acceptance Method: Explanation Response: Verbalizes Understanding, Needs Reinforcement ADL Training, taught by Amita Jacques OT at 06/03/2023 2:12 PM. Learner: Patient Readiness: Acceptance Method: Explanation Response: Verbalizes Understanding, Needs Reinforcement Education Comments No comments found. Goals: Encounter Problems Encounter Problems (Active) ADLs Patient with complete upper body dressing with independent level of assistance donning and doffing all UE clothes with no adaptive equipment. (Progressing) Start: 06/03/23 Expected End: 06/17/23 Patient with complete lower body dressing with modified independent level of assistance donning and doffing all LE clothes with PRN adaptive equipment. (Progressing) Start: 06/03/23 Expected End: 06/17/23 Patient will complete daily grooming tasks with independent level of assistance and PRN adaptive equipment while standing. (Progressing) Start: 06/03/23 Expected End: 06/17/23 Patient will complete toileting including hygiene clothing management/hygiene with independent level of assistance. (Progressing) Start: 06/03/23 Expected End: 06/17/23 BALANCE Pt will maintain dynamic standing balance during ADL task with modified independent level of assistance in order to demonstrate decreased risk of falling and improved postural control. (Progressing) Start: 06/03/23 Expected End: 06/17/23 COGNITION/SAFETY Patient will recall and adhere to spine precautions during all functional mobility/ADL tasks in order to demonstrate improved understanding and promote healing post op (Progressing) Start: 06/03/23 Expected End: 06/17/23 MOBILITY Patient will perform Functional mobility Household distances/Community Distances with modified independent level of assistance and front wheeled walker in order to improve safety and functional mobility. (Progressing) Start: 06/03/23 Expected End: 06/17/23 TRANSFERS Patient will perform bed mobility modified independent level of assistance in order to improve safety and independence with mobility (Progressing) Start: 06/03/23 Expected End: 06/17/23 Patient will complete functional transfers with front wheeled walker with modified independent level of assistance. (Progressing) Start: 06/03/23 Expected End: 06/17/23 Amita Jacques OTR/L Inpatient Occupational Therapist Rehab Office: [phone] Melvin Baer is a 63 y.o. male on day 2 of admission presenting with Lumbar radiculopathy, right. Subjective PATIENT DOING WELL Objective Physical Exam BUE 07/28 BLE 07/28 SILT Last Recorded Vitals Blood pressure 117/67, pulse 81, temperature 36.6 C (97.9 F), temperature source Temporal, resp. rate 24, height 1.778 m (5' 10 ), weight 95.4 kg (210 lb 5.1 oz), SpO2 99 %. Intake/Output last 3 Shifts: I/O last 3 completed shifts: In: 4388.3 (46 mL/kg) [P.O.:360; I.V.:2628.3 (27.6 mL/kg); IV Piggyback:1400] Out: 3550 (37.2 mL/kg) [Urine:2350 (0.7 mL/kg/hr); Drains:100; Blood:1100] Weight: 95.4 kg Relevant Results This patient has a urinary catheter Reason for the urinary catheter remaining today? Urine catheter unnecessary, will be removed today Assessment/Plan Principal Problem: Lumbar radiculopathy, right Active Problems: Spinal stenosis of lumbar region with neurogenic claudication Sagittal plane imbalance Scoliosis of thoracolumbar region due to degenerative disease of spine in adult Lumbar foraminal stenosis Lumbar radiculopathy, acute Lumbar stenosis with neurogenic claudication h/o HTN, DM2 c/b peripheral neuropathy, psoriatic arthritis (on methotrexate and leflunomide), p/w progressive chronic low back pain and bilateral lower extremity radiculopathy R>L, 05/31 s/p L2-pelvis instrumented fusion, L3-4 PCO, L4-5 and L5-S1 TLIFs ASSESSMENT tele Maintain drain Oral pain meds No uprights AM labs PTOT-OK to work with patient with no restrictions Donato Currie MD Physical Therapy Physical Therapy Evaluation & Treatment Patient Name: Melvin Baer Today's Date: 06/02/2023 Time Calculation Start Time: 1011 Stop Time: 1038 Time Calculation (min): 27 min Assessment/Plan PT Assessment PT Assessment Results: Decreased strength, Decreased endurance, Impaired balance, Decreased mobility, Decreased safety awareness, Decreased skin integrity, Pain Rehab Prognosis: Good End of Session Communication: Bedside nurse Assessment Comment: Patient presents wtih decline in functional mobility as compared to baseline. Patient could benefit from continued acute PT to maximize functional mobility prior to D/C End of Session Patient Position: Up in chair IP OR SWING BED PT PLAN Inpatient or Swing Bed: Inpatient PT Plan Treatment/Interventions: Bed mobility, Transfer training, Stair training, Gait training, Balance training, Neuromuscular re-education, Strengthening, Endurance training, Therapeutic exercise, Range of motion, Therapeutic activity, Positioning PT Plan: Skilled PT PT Frequency: Daily PT Discharge Recommendations: Moderate intensity level of continued care PT Recommended Transfer Status: Assist x1, Assistive device PT - OK to Discharge: Yes (Eval completed and D/C rec made) Subjective General Visit Information: General Reason for Referral: /o HTN, DM2 c/b peripheral neuropathy, psoriatic arthritis (on methotrexate and leflunomide), p/w progressive chronic low back pain and bilateral lower extremity radiculopathy R>L, 3/8 s/p L2-pelvis instrumented fusion, L3-4 PCO, L4-5 and L5-S1 TLIFs Family/Caregiver Present: Yes Caregiver Feedback: Spouse- supportive and encouraging Prior to Session Communication: Bedside nurse Patient Position Received: Bed, 3 rail up, Alarm on Preferred Learning Style: verbal, visual General Comment: Pleasant and agreeable to PT Eval Home Living: Home Living Type of Home: House Lives With: Spouse (able to assist as needed) Home Adaptive Equipment: Walker rolling or standard, Cane Home Layout: Two level, 1/2 bath on main level, Stairs to alternate level with rails (recliner on first floor. Patient reports he sometimes sleeps in recliner) Alternate Level Stairs-Rails: Right Alternate Level Stairs-Number of Steps: 13 Home Access: Stairs to enter with rails Entrance Stairs-Rails: Both Entrance Stairs-Number of Steps: 2 Prior Level of Function: Prior Function Per Pt/Caregiver Report Level of Mclean: Independent with ADLs and functional transfers, Independent with homemaking with ambulation ADL Assistance: Independent Homemaking Assistance: Independent Ambulatory Assistance: Independent (SPC) Precautions: Precautions Medical Precautions: Fall precautions, Spinal precautions Post-Surgical Precautions: Spinal precautions Vital Signs: Vital Signs Heart Rate: 102 (Increased to 125 BPM with exertion. Stabilized to 107 BPM end of session) SpO2: 94 % BP: 123/71 Objective Pain: Pain Assessment Pain Assessment: 0-10 Pain Score: 5 - Moderate pain Pain Type: Surgical pain Pain Location: Back Pain Interventions: Repositioned Response to Interventions: Decreased Cognition: Cognition Orientation Level: Oriented X4 General Assessments: Sensation Light Touch: No apparent deficits Strength Strength Comments: Marisa WFL Static Sitting Balance Static Sitting-Balance Support: Feet supported, Bilateral upper extremity supported Static Sitting-Level of Assistance: Minimum assistance Static Standing Balance Static Standing-Balance Support: Bilateral upper extremity supported Static Standing-Level of Assistance: Minimum assistance Functional Assessments: Bed Mobility Bed Mobility: Yes Bed Mobility 1 Bed Mobility 1: Supine to sitting (via log roll) Level of Assistance 1: Moderate assistance, Moderate verbal cues, Moderate tactile cues Bed Mobility Comments 1: Mod A at trunk (Increased time, effort and cues for sequencing and technique) Transfers Transfer: Yes Transfer 1 Transfer From 1: Sit to Transfer to 1: Stand Transfer Device 1: Walker Transfer Level of Assistance 1: Maximum assistance, Maximum verbal cues, Maximum tactile cues Trials/Comments 1: Max A first attempt wtih loss of balance backward needing Max A for controlled lowering (Able to progress to min A with cues for proper LESTER setup, anterior weight shfit, increased hip extension and BUE sequencing) Transfers 2 Transfer From 2: Stand to Transfer to 2: Sit Transfer Device 2: Walker Transfer Level of Assistance 2: Minimum assistance, Moderate verbal cues, Moderate tactile cues Trials/Comments 2: Cues for controlled lowering with BUEs Transfers 3 Transfer From 3: Bed to Transfer to 3: Chair with arms Transfer Device 3: Walker Transfer Level of Assistance 3: Moderate assistance, Moderate verbal cues, Moderate tactile cues Ambulation/Gait Training Ambulation/Gait Training Performed: Yes Ambulation/Gait Training 1 Surface 1: Level tile Device 1: Rolling walker Assistance 1: Moderate assistance, Moderate verbal cues, Moderate tactile cues Quality of Gait 1: Inconsistent stride length, Shuffling gait (stiff legged gait pattern) Comments/Distance (ft) 1: 5 Extremity/Trunk Assessments: RUE RUE : Within Functional Limits LUE LUE: Within Functional Limits RLE RLE : (RLE grossly 4/5) LLE LLE : (LLE grossly 4/5) Treatments: Bed Mobility Bed Mobility: Yes Bed Mobility 1 Bed Mobility 1: Supine to sitting (via log roll) Level of Assistance 1: Moderate assistance, Moderate verbal cues, Moderate tactile cues Bed Mobility Comments 1: Mod A at trunk (Increased time, effort and cues for sequencing and technique) Transfers Transfer: Yes Transfer 1 Transfer From 1: Sit to Transfer to 1: Stand Transfer Device 1: Walker Transfer Level of Assistance 1: Maximum assistance, Maximum verbal cues, Maximum tactile cues Trials/Comments 1: Max A first attempt wtih loss of balance backward needing Max A for controlled lowering (Able to progress to min A with cues for proper LESTER setup, anterior weight shfit, increased hip extension and BUE sequencing) Transfers 2 Transfer From 2: Stand to Transfer to 2: Sit Transfer Device 2: Walker Transfer Level of Assistance 2: Minimum assistance, Moderate verbal cues, Moderate tactile cues Trials/Comments 2: Cues for controlled lowering with BUEs Transfers 3 Transfer From 3: Bed to Transfer to 3: Chair with arms Transfer Device 3: Walker Transfer Level of Assistance 3: Moderate assistance, Moderate verbal cues, Moderate tactile cues Outcome Measures: [facility] Basic Mobility Turning from your back to your side while in a flat bed without using bedrails: A lot Moving from lying on your back to sitting on the side of a flat bed without using bedrails: A lot Moving to and from bed to chair (including a wheelchair): A lot Standing up from a chair using your arms (e.g. wheelchair or bedside chair): A lot To walk in hospital room: A lot Climbing 3-5 steps with railing: Total Basic Mobility - Total Score: 11 Encounter Problems Encounter Problems (Active) Mobility STG - Patient will ambulate household distance mod I with RW (Progressing) Start: 06/02/23 Expected End: 06/16/23 STG - Patient will ascend and descend 2 steps with 2 handrails mod I (Progressing) Start: 06/02/23 Expected End: 06/16/23 PT Transfers STG - Transfer from bed to chair mod I with RW (Progressing) Start: 06/02/23 Expected End: 06/16/23 STG - Patient will perform bed mobility mod I (Progressing) Start: 06/02/23 Expected End: 06/16/23 STG - Patient will transfer sit to and from stand mod I with RW (Progressing) Start: 06/02/23 Expected End: 06/16/23 Pain - Adult Education Documentation Precautions, taught by Deborah Stevenson PT at 06/02/2023 4:07 PM. Learner: Family, Patient Readiness: Acceptance Method: Explanation, Demonstration Response: Verbalizes Understanding, Demonstrated Understanding Comment: Educated on spinal precautions Education Comments No comments found. Occupational Therapy Therapy Communication Note Patient Name: Melvin Baer Today's Date: 06/02/2023 Discipline: Occupational Therapy Missed Visit Reason: (Hold OT eval this date per RN; RN reports pt up in chair this AM and with increased discomfort- required assist from RN to return supine /pt not feeling well and with pale appearance. Will re-attempt as schedule permits.) Missed Time: Attempt Ely Abdullahi (OTR/L, OTD) Inpatient Occupational Therapist Rehab Office: [phone] Acute Pain Service Postop Pain HPI - Palliative: relieved with IV analgesics and regional local anesthetics Provocative: movement Quality: burning and aching Radiation: none Severity: 5/10 Timing: constant 24-HOUR OPIOID CONSUMPTION: DIRECTOR OF GLOBAL SALES hydromorphone 0.8mg Hydromorphone 1mg Oxycodone 10mg Scheduled medications acetaminophen, 650 mg, oral, q6h cyclobenzaprine, 10 mg, oral, TID heparin (porcine), 5,000 Units, subcutaneous, q8h insulin lispro, 0-5 Units, subcutaneous, TID with meals ketorolac, 30 mg, intravenous, q8h ARIANA lidocaine, 1 patch, transdermal, Daily polyethylene glycol, 17 g, oral, Daily sennosides-docusate sodium, 2 tablet, oral, BID Continuous medications sodium chloride 0.9%, 100 mL/hr, Last Rate: 100 mL/hr (06/02/23 0637) PRN medications PRN medications: benzocaine-menthol, dextrose 10 % in water (D10W), dextrose 10 % in water (D10W), dextrose, dextrose, glucagon, glucagon, HYDROmorphone, naloxone, naloxone, ondansetron OR ondansetron, oxyCODONE, oxyCODONE, oxygen, promethazine OR promethazine Physical Exam: Constitutional: no distress, alert and cooperative Eyes: clear sclera Head/Neck: No apparent injury, trachea midline Respiratory/Thorax: Patent airways, thorax symmetric, breathing comfortably Cardiovascular: no pitting edema Gastrointestinal: Nondistended Musculoskeletal: ROM intact Extremities: no clubbing Neurological: alert, barrett x4 Psychological: Appropriate affect Results for orders placed or performed during the hospital encounter of 06/01/23 (from the past 24 hour(s)) Blood Gas Arterial Full Panel Result Value Ref Range POCT pH, Arterial 7.38 7.38 - 7.42 pH POCT pCO2, Arterial 40 38 - 42 mm Hg POCT pO2, Arterial 197 (H) 85 - 95 mm Hg POCT SO2, Arterial 100 94 - 100 % POCT Oxy Hemoglobin, Arterial 98.4 (H) 94.0 - 98.0 % POCT Hematocrit Calculated, Arterial 36.0 (L) 41.0 - 52.0 % POCT Sodium, Arterial 136 136 - 145 mmol/L POCT Potassium, Arterial 4.1 3.5 - 5.3 mmol/L POCT Chloride, Arterial 106 98 - 107 mmol/L POCT Ionized Calcium, Arterial 1.15 1.10 - 1.33 mmol/L POCT Glucose, Arterial 224 (H) 74 - 99 mg/dL POCT Lactate, Arterial 1.4 0.4 - 2.0 mmol/L POCT Base Excess, Arterial -1.3 -2.0 - 3.0 mmol/L POCT HCO3 Calculated, Arterial 23.7 22.0 - 26.0 mmol/L POCT Hemoglobin, Arterial 12.0 (L) 13.5 - 17.5 g/dL POCT Anion Gap, Arterial 10 10 - 25 mmo/L Patient Temperature 37.0 degrees Celsius FiO2 50 % Blood Gas Arterial Full Panel Result Value Ref Range POCT pH, Arterial 7.36 (L) 7.38 - 7.42 pH POCT pCO2, Arterial 38 38 - 42 mm Hg POCT pO2, Arterial 197 (H) 85 - 95 mm Hg POCT SO2, Arterial 100 94 - 100 % POCT Oxy Hemoglobin, Arterial 97.9 94.0 - 98.0 % POCT Hematocrit Calculated, Arterial 32.0 (L) 41.0 - 52.0 % POCT Sodium, Arterial 137 136 - 145 mmol/L POCT Potassium, Arterial 3.6 3.5 - 5.3 mmol/L POCT Chloride, Arterial 106 98 - 107 mmol/L POCT Ionized Calcium, Arterial 1.17 1.10 - 1.33 mmol/L POCT Glucose, Arterial 229 (H) 74 - 99 mg/dL POCT Lactate, Arterial 1.9 0.4 - 2.0 mmol/L POCT Base Excess, Arterial -3.6 (L) -2.0 - 3.0 mmol/L POCT HCO3 Calculated, Arterial 21.5 (L) 22.0 - 26.0 mmol/L POCT Hemoglobin, Arterial 10.7 (L) 13.5 - 17.5 g/dL POCT Anion Gap, Arterial 13 10 - 25 mmo/L Patient Temperature 37.0 degrees Celsius FiO2 50 % Blood Gas Arterial Full Panel Result Value Ref Range POCT pH, Arterial 7.37 (L) 7.38 - 7.42 pH POCT pCO2, Arterial 38 38 - 42 mm Hg POCT pO2, Arterial 202 (H) 85 - 95 mm Hg POCT SO2, Arterial 100 94 - 100 % POCT Oxy Hemoglobin, Arterial 97.7 94.0 - 98.0 % POCT Hematocrit Calculated, Arterial 32.0 (L) 41.0 - 52.0 % POCT Sodium, Arterial 136 136 - 145 mmol/L POCT Potassium, Arterial 3.1 (L) 3.5 - 5.3 mmol/L POCT Chloride, Arterial 106 98 - 107 mmol/L POCT Ionized Calcium, Arterial 1.18 1.10 - 1.33 mmol/L POCT Glucose, Arterial 245 (H) 74 - 99 mg/dL POCT Lactate, Arterial 2.0 0.4 - 2.0 mmol/L POCT Base Excess, Arterial -3.0 (L) -2.0 - 3.0 mmol/L POCT HCO3 Calculated, Arterial 22.0 22.0 - 26.0 mmol/L POCT Hemoglobin, Arterial 10.5 (L) 13.5 - 17.5 g/dL POCT Anion Gap, Arterial 11 10 - 25 mmo/L Patient Temperature 37.0 degrees Celsius FiO2 50 % POCT GLUCOSE Result Value Ref Range POCT Glucose 178 (H) 74 - 99 mg/dL CBC Result Value Ref Range WBC 9.7 4.4 - 11.3 x10*3/uL nRBC 0.0 0.0 - 0.0 /100 WBCs RBC 3.62 (L) 4.50 - 5.90 x10*6/uL Hemoglobin 10.5 (L) 13.5 - 17.5 g/dL Hematocrit 31.1 (L) 41.0 - 52.0 % MCV 86 80 - 100 fL MCH 29.0 26.0 - 34.0 pg MCHC 33.8 32.0 - 36.0 g/dL RDW 14.0 11.5 - 14.5 % Platelets 233 150 - 450 x10*3/uL Magnesium Result Value Ref Range Magnesium 1.74 1.60 - 2.40 mg/dL Fibrinogen Result Value Ref Range Fibrinogen 195 (L) 200 - 400 mg/dL Melvin Baer is a 63 y.o. year old male patient who presents for L4-5 and L5-S1 transforaminal lumbar fusion with decompression L3-4 and L2-3 laminectomy and facetectomy and L2-S1 fusion with Dr. Valentino. Acute Pain consulted for block for postoperative pain control. Plan: - Bilateral paravertebral SS blocks performed preoperatively on 06/01/23 - Acute pain service will sign off - Rest of pain management [place] [phone] ph [phone] Associated attestation - Amada Palomino MD - 06/04/2023 9:13 AM EDT I personally saw the patient, evaluate and reviewed labs. I argeed with resident's plan. Melvin Baer is a 63 y.o. male on day 1 of admission presenting with Lumbar radiculopathy, right. Subjective PATIENT DOING WELL Objective Physical Exam BUE 5/5 BLE 5/5 SILT Last Recorded Vitals Blood pressure 145/75, pulse 71, temperature 36.4 C (97.5 F), temperature source Temporal, resp. rate 18, height 1.778 m (5' 10 ), weight 95.4 kg (210 lb 5.1 oz), SpO2 98 %. Intake/Output last 3 Shifts: I/O last 3 completed shifts: In: 2636.7 (27.6 mL/kg) [I.V.:1236.7 (13 mL/kg); IV Piggyback:1400] Out: 2450 (25.7 mL/kg) [Urine:1350 (0.4 mL/kg/hr); Blood:1100] Weight: 95.4 kg Relevant Results This patient has a urinary catheter Reason for the urinary catheter remaining today? Urine catheter unnecessary, will be removed today Assessment/Plan Principal Problem: Lumbar radiculopathy, right Active Problems: Spinal stenosis of lumbar region with neurogenic claudication Sagittal plane imbalance Scoliosis of thoracolumbar region due to degenerative disease of spine in adult Lumbar foraminal stenosis Lumbar radiculopathy, acute Lumbar stenosis with neurogenic claudication h/o HTN, DM2 c/b peripheral neuropathy, psoriatic arthritis (on methotrexate and leflunomide), p/w progressive chronic low back pain and bilateral lower extremity radiculopathy R>L, 3/8 s/p L2-pelvis instrumented fusion, L3-4 PCO, L4-5 and L5-S1 TLIFs ASSESSMENT HOLLY, will plan for downgrade Maintain drain Dc DIRECTOR OF GLOBAL SALES/menezes No uprights AM labs PTOT-OK to work with patient with no restrictions Donato Currie MD Pharmacy Medication History Review Melvin Baer is a 63 y.o. male who is planned to be admitted for No Principal Problem: There is no principal problem currently on the Problem List. Please update the Problem List and refresh.. Pharmacy called the patient prior to their scheduled procedure and reviewed the patient's [id number] medications for accuracy. Medications ADDED: Acetaminophen 500mg - #2 tablets 2-3 times a day as needed Medications CHANGED: none Medications REMOVED: Gabapentin 300mg - therapy complete Please review medication list and comments regarding how patient may be taking medications differently in the Admit Orders Activity. Preferred pharmacy and allergies to be confirmed with patient by nursing the day of procedure. Sources used to complete the med history include spoke with patient, surescripts, oarrs, care everywhere Below are additional concerns with the patient's IT AUDITOR list. none Morena Curtis [facility] Please reach out via Secure Chat for questions documented in this encounter [facility] Work Phone: 06-06-2023 Plan of care note Problem: Pain Goal: Takes deep breaths with improved pain control throughout the shift Outcome: Progressing Problem: Safety - Adult Goal: Free from fall injury Outcome: Progressing The patient's goals for the shift include The clinical goals for the shift include Patient will have decrease pain by the end of the shift Over the shift, the patient did make progress toward the following goals. Barriers to progression include increased movement. Recommendations to address these barriers include getting rest premedicating for activities. [facility] 06-06-2023 Miscellaneous Notes Problem: Pain Goal: Takes deep breaths with improved pain control throughout the shift Outcome: Progressing Problem: Safety - Adult Goal: Free from fall injury Outcome: Progressing The patient's goals for the shift include The clinical goals for the shift include Patient will have decrease pain by the end of the shift Over the shift, the patient did make progress toward the following goals. Barriers to progression include increased movement. Recommendations to address these barriers include getting rest premedicating for activities. Problem: Pain Goal: Takes deep breaths with improved pain control throughout the shift Outcome: Progressing Problem: Safety - Adult Goal: Free from fall injury Outcome: Progressing Flowsheets (Taken 06/05/2023 0331) Free from fall injury: Instruct family/caregiver on patient safety The patient's goals for the shift include The clinical goals for the shift include pt will be free from falls throughout shift Over the shift, the patient did make progress toward the following goals. Barriers to progression include cords. Recommendations to address these barriers include use call light. Problem: Safety - Adult Goal: Free from fall injury Outcome: Progressing Problem: Pain Goal: Takes deep breaths with improved pain control throughout the shift Outcome: Progressing The patient's goals for the shift include The clinical goals for the shift include patient will have a stable neuro exam throughout shift Over the shift, the patient did make progress toward the following goals. Barriers to progression include pain meds. Recommendations to address these barriers include ensure medication is given according to the order. Agree with prior nurse assessment. Labs sent. L4-5 and L5-S1 transforaminal lumbar interbody fusion with placement of interbody cage with decompression L3-4 posterior column osteotomy and L2-S1 instrumented fusion using local bone autograft and BMP with pelvic fixation. (B) Operative Note Date: 06/01/2023 OR Location: [facility] OR Name: Melvin Baer, : 1960, Age: 63 y.o., , Sex: male Diagnosis Pre-op Diagnosis * Spinal stenosis of lumbar region with neurogenic claudication [M48.062] * Sagittal plane imbalance [M43.8X9] * Scoliosis of thoracolumbar region due to degenerative disease of spine in adult [M41.55] * Lumbar foraminal stenosis [M48.061] * Lumbar radiculopathy, acute [M54.16] * Lumbar stenosis with neurogenic claudication [M48.062] Post-op Diagnosis * Spinal stenosis of lumbar region with neurogenic claudication [M48.062] * Sagittal plane imbalance [M43.8X9] * Scoliosis of thoracolumbar region due to degenerative disease of spine in adult [M41.55] * Lumbar foraminal stenosis [M48.061] * Lumbar radiculopathy, acute [M54.16] * Lumbar stenosis with neurogenic claudication [M48.062] OPERATION/PROCEDURE: L4-L5 and L5-S1 laminectomy and facetectomies for decompression of spinal nerve roots L4-L5 and L5-S1 Combined posterior interbody and posterolateral arthrodesis L4-L5 and L5-S1 placement of expandable titanium ntervertebral biomechanical device Osteotomy of spine, posterior column( Salas Herring Osteotomy ) at L3-4 Placement of posterior segmental spinal instrumentation from L2 - S1 Placement of pelvic Fixation Posterolateral instrumented arthrodesis, L2-3, L3-4, L4-5 Use of local morcellized autograft Use of osteopromotive material for spine surgery Use of intraoperative image-guided computer-assisted navigation. Surgeons * Isha Valentino - Primary Resident/Fellow/Other Biophysics Professor: Surgeon(s) and Role: * Terrell Johnson MD - Resident - Assisting * Barb Putnam MD - Fellow MEDICATIONS: Antibiotic prophylaxis given within one hour prior to skin incision. PROPHYLAXIS: Venous thromboembolism prophylaxis was ordered at the time of surgery in the form of mechanical prophylaxis using sequential compression devices. INDICATION: Mr. Baer is a 63 y.o. male who presented with intractable low back and lower extremity symptoms with good correlation between the imaging studies and clinical signs and symptoms. The patient failed all conservative treatment. In view of the presence of significant symptoms affecting the activities of daily living to a significant extent, surgical treatment was discussed with the goals, risk and benefits of surgery and the fact that surgery may or may not alleviate the symptoms completely with small chances of even worsening of the symptoms. The patient chose to proceed with surgery after clear understanding of all the risk and benefits and goals of surgery. TECHNIQUE: After induction of general anesthesia, the patient was carefully turned prone on a Je table and all dependent portions were carefully padded. neuro monitoring was instituted using SSEP and the free running EMGs. The patient had no SSEPs from the lower extremities and hands further SSEP monitoring was abandoned and only EMG was monitored throughout the case. The thoracolumbar region was scrubbed, prepped, and draped in the usual sterile fashion. A midline skin incision was marked out from L2-S2 based on lateral fluoroscopy. This was injected with local anesthesia and carried out sharply. Subcutaneous tissue divided using monopolar cautery over the tips of the spinous process and carried out all the way to the tip of the transverse processes of L2 through L5 and over the sacral ala and dorsal sacrum bilaterally including upto S2 level. Spinous process clamp was attached to the L2 spinous process and the dynamic reference array was attached to this. The O-arm was brought into the field and intraoperative CT scan performed and the images transferred to the [employer] system for use in intraoperative image-guided computer-assisted navigation. The navigation system was then used to place the instrumentation at the bilateral pedicles from L2 to S1 using RELINE OPEN instrumented system. Placement of iliac fixation bilaterally was done using the traditional iliac screw trajectory and an additional iliac screw was placed on the left for placement of a supporting jaren given presence of significant coronal deformity.Neuro monitoring was performed throughout the placement of instrumentation and that worse no abnormal electrophysiological activity detected. Attention was then directed to performance of the TLIFs. The inferior edge of the lamina along with lateral border of the pars along with the L5-S1 facet joint identified. Hemiaminectomy and facetectomy on the right removing the inferior facet of L5 and superior facet of S1 was performed using drill, osteotomes and kerrison rongeurs to decompress the nerves roots. Ligamentum flavum was resected thereby decompressing the neural elements from the L5 pedicle to S1 pedicle including the central canal and decompression of the other foramen. The decompression of the neural elements performed and the degree of bony and ligament removal necessary for the same was beyond and significantly more than that would otherwise be necessary to access the interbody space for interbody arthrodesis at the level. The disk space was accessed and incised sharply. on the right. Using a series of curettes and pituitary rongeurs, an aggressive and complete discectomy was performed. After completing the diskectomy, the endplates of L5 and S1 were prepared for interbody arthrodesis. The wound was irrigated and hemostasis achieved. The disk space was first packed with one fourth of a small RhBMP sponge and local morcellized autograft from the decompression as mentioned above. A lordotic titanium cage was packed with local autograft and inserted into the intervertebral space under fluoroscopy. AP and lateral fluoroscopy demonstrated the cage to be in excellent position. rhBMP was utilized for conducting fusion at L5-S1 level given the extremely challenging and high shear stress at L5-S1 level given presence of her significant coronal deformity to optimize the chances of obtaining a fusion at the base of the construct for treatment of the spinal deformity that the patient had. Use of DBM alone with the local bone autograft would put him at extremely high risk of pseudoarthrosis and subsequent surgery and hands intraoperatively given the necessity in a challenging area to obtain the fusion BMP was utilized. I did discuss the possibility of this with the patient's family before surgery. A similar decompression with interbody fusion using autograft and one forth of small BMP and placement of titanium cage as was performed at L5-S1 level was also performed at L4-5 level. Posterior column ( Salas Herring ) osteotomy was performed at L3-4 which involve removal of bilateral inferior pars, residual lamina and inferior and superior articular facets at L3-4 levels achieving a thorough central and bilateral foraminal decompression with removal of the ligamentum flavum that resulted in increased flexibility of the spine to allow correction of the deformity. Thorough irrigation was performed after achieving hemostasis. There was no obvious stenosis at this point at L2-3 level and hence no further decompression was necessary as was initially contemplated. The posterolateral elements of L2 through S1 were decorticated using a high-speed drill. The rods were seated in the heads of the screws and through a combination of jaren translation, reduction, cantilever and compression across multiple segments including osteotomy level with excellent coronal deformity and loss of lumbar lordosis correction. Significant in situ and coronal bending of the construct had to be performed for further correction of the deformity. The rods were secured in place using set caps and final tightened using the torque gas truck driver and counter-torque.A third supporting jaren was placed on the left side using a [id number] connector between L2 and L3 level and iliac screw that was placed given the presence of significant type C coronal imbalance. Final AP and lateral fluoroscopic images were taken to confirm satisfactory implant placement. The posterolateral arthrodesis from L2 - S1 was completed by laying down morselized autograft that was obtained from the bony decompression and left over small rhBMP that is an osteopromotive material for spine surgery. A gram of vancomycin and ancef powder was scattered about the wound and Hemovac drain tunneled out percutaneously from the wound. The wound was then closed in layers with use of glue for the skin. The drapes were removed, sterile dressing applied. The patient was turned back supine. There were no changes in the neuro monitoring throughout the course of the operation. PThe EBL was about 1100 ml Complications: None; patient tolerated the procedure well. Disposition: PACU - hemodynamically stable. Condition: stable Attending Attestation: I was present and scrubbed for the marino portions of the procedure. Isha Valentino Date: 06/01/2023 OR Location: [facility] OR Name: Melvin Baer, : 1960, Age: 63 y.o., , Sex: male Diagnosis Pre-op Diagnosis * Spinal stenosis of lumbar region with neurogenic claudication [M48.062] * Sagittal plane imbalance [M43.8X9] * Scoliosis of thoracolumbar region due to degenerative disease of spine in adult [M41.55] * Lumbar foraminal stenosis [M48.061] * Lumbar radiculopathy, acute [M54.16] * Lumbar stenosis with neurogenic claudication [M48.062] Post-op Diagnosis * Spinal stenosis of lumbar region with neurogenic claudication [M48.062] * Sagittal plane imbalance [M43.8X9] * Scoliosis of thoracolumbar region due to degenerative disease of spine in adult [M41.55] * Lumbar foraminal stenosis [M48.061] * Lumbar radiculopathy, acute [M54.16] * Lumbar stenosis with neurogenic claudication [M48.062] Procedures L4-5 and L5-S1 transforaminal lumbar interbody fusion with placement of interbody cage with decompression L3-4 posterior column osteotomy with L2-3 laminectomy and facetectomy and L2-S1 instrumented fusion using local bone autograft and BMP with pelvic fixation. 58087 - NM ARTHRODESIS COMBINED TQ 1NTRSPC LUMBAR NM OSTEOTOMY SPINE PST/PSTLAT APPR 1 VRT SGM LMBR [71476] NM ARTHRODESIS PST/PSTLAT TQ 1NTRSPC EA ADDL NTRSPC [05478] NM STACK FACETECTOMY & FORAMOTOMY 1 VRT SGM LUMBAR [34426] NM POSTERIOR SEGMENTAL INSTRUMENTATION 3-6 VRT SEG [11169] NM PELVIC FIXATION OTHER THAN SACRUM [11780] NM ALLOGRAFT FOR SPINE SURGERY ONLY MORSELIZED [] NM AUTOGRAFT SPINE SURGERY LOCAL FROM SAME INCISION [] NM STEREOTACTIC COMPUTER ASSISTED PX SPINAL [56773] NM INSJ BIOMCHN DEV INTERVERTEBRAL DSC SPC W/ARTHRD [75622] NM ARTHRODESIS CMBN TQ 1NTRSPC EACH ADDITIONAL [28544] Surgeons * Isha Valentino - Primary Resident/Fellow/Other Biophysics Professor: Surgeon(s) and Role: * Terrell Johnson MD - Resident - Assisting * Barb Putnam MD - Fellow Procedure Summary Anesthesia: General ASA: III Anesthesia Staff: Anesthesiologist: Kal Bacon MD C-AA: SHERRI Carter MANDIE: Lucian Dunne Estimated Blood Loss: 1100mL Intra-op Medications: Administrations occurring from 0715 to 1255 on 06/01/23: Medication Name Total Dose thrombin (recombinant) (Recothrom) topical solution 10,000 Units vancomycin (Vancocin) vial for injection 3 g ceFAZolin (Ancef) injection 1 g lidocaine-epinephrine (Xylocaine W/EPI) 1 %-1:100,000 injection 10 mL polymyxin B 500,000 Units in sodium chloride 0.9 % 1,000 mL irrigation 1,000 mL ketamine (Ketalar) 500 mg/250 mL D5W (2 mg/mL) infusion 113.69 mg Anesthesia Record Intraprocedure I/O Totals Intake Ketamine 0.00 mL The total shown is the total volume documented since Anesthesia Start was filed. LR bolus 1200.00 mL Tranexamic Acid 0.00 mL The total shown is the total volume documented since Anesthesia Start was filed. Propofol Drip 0.00 mL The total shown is the total volume documented since Anesthesia Start was filed. Phenylephrine Drip 0.00 mL The total shown is the total volume documented since Anesthesia Start was filed. lactated Ringer's 1000.00 mL potassium chloride 20 mEq in 100 mL IV premix 100.00 mL Total Intake 2300 mL Output Urine 710 mL Est. Blood Loss 1100 mL Total Output 1810 mL Net Net Volume 490 mL Specimen: No specimens collected Staff: Terminal Supervisor: Levi Gonzales RN; Kimberli Hastings RN Scrub Person: Lucian Khan Findings: excellent correction Complications: None; patient tolerated the procedure well. Disposition: PACU - hemodynamically stable. Condition: stable Specimens Collected: No specimens collected Attending Attestation: Isha Valentino 63 year old male with Hx of HTN, DM2 c/b peripheral neuropathy, psoriatic arthritis (on methotrexate and leflunomide), who presented with progressive chronic low back pain and bilateral lower extremity radiculopathy R>L. 05/31 s/p L2-pelvis instrumented fusion, L3-4 PCO, L4-5 and L5-S1 TLIFs. 06/05 drain removed PT/OT eval recommend SNF; re-eval 06/05 recommend home with Home Care. Discharged with scheduled follow up. documented in this encounter [facility] Work Phone: 06-05-2023 Plan of care note Problem: Pain Goal: Takes deep breaths with improved pain control throughout the shift Outcome: Progressing Problem: Safety - Adult Goal: Free from fall injury Outcome: Progressing Flowsheets (Taken 06/05/2023 0331) Free from fall injury: Instruct family/caregiver on patient safety The patient's goals for the shift include The clinical goals for the shift include pt will be free from falls throughout shift Over the shift, the patient did make progress toward the following goals. Barriers to progression include cords. Recommendations to address these barriers include use call light. [facility] Work Phone: 06-03-2023 Plan of care note Problem: Safety - Adult Goal: Free from fall injury Outcome: Progressing Problem: Pain Goal: Takes deep breaths with improved pain control throughout the shift Outcome: Progressing The patient's goals for the shift include The clinical goals for the shift include patient will have a stable neuro exam throughout shift Over the shift, the patient did make progress toward the following goals. Barriers to progression include pain meds. Recommendations to address these barriers include ensure medication is given according to the order. [facility] Work Phone: 06-01-2023 Note Formatting of this n ote might be different from the original. Agree with prior nurse assessment. Labs sent. [facility] 06-01-2023 Note Formatting of this n ote is different from the original. L4-5 and L5-S1 transforaminal lumbar interbody fusion with placement of interbody cage with decompression L3-4 posterior column osteotomy and L2-S1 instrumented fusion using local bone autograft and BMP with pelvic fixation. (B) Operative Note Date: 06/01/2023 OR Location: [facility] OR Name: Melvin Baer, : 1960, Age: 63 y.o., , Sex: male Diagnosis Pre-op Diagnosis * Spinal stenosis of lumbar region with neurogenic claudication [M48.062] * Sagittal plane imbalance [M43.8X9] * Scoliosis of thoracolumbar region due to degenerative disease of spine in adult [M41.55] * Lumbar foraminal stenosis [M48.061] * Lumbar radiculopathy, acute [M54.16] * Lumbar stenosis with neurogenic claudication [M48.062] Post-op Diagnosis * Spinal stenosis of lumbar region with neurogenic claudication [M48.062] * Sagittal plane imbalance [M43.8X9] * Scoliosis of thoracolumbar region due to degenerative disease of spine in adult [M41.55] * Lumbar foraminal stenosis [M48.061] * Lumbar radiculopathy, acute [M54.16] * Lumbar stenosis with neurogenic claudication [M48.062] OPERATION/PROCEDURE: L4-L5 and L5-S1 laminectomy and facetectomies for decompression of spinal nerve roots L4-L5 and L5-S1 Combined posterior interbody and posterolateral arthrodesis L4-L5 and L5-S1 placement of expandable titanium ntervertebral biomechanical device Osteotomy of spine, posterior column( Salas Herring Osteotomy ) at L3-4 Placement of posterior segmental spinal instrumentation from L2 - S1 Placement of pelvic Fixation Posterolateral instrumented arthrodesis, L2-3, L3-4, L4-5 Use of local morcellized autograft Use of osteopromotive material for spine surgery Use of intraoperative image-guided computer-assisted navigation. Surgeons * Isha Valentino - Primary Resident/Fellow/Other Biophysics Professor: Surgeon(s) and Role: * Terrell Johnson MD - Resident - Assisting * Barb Putnam MD - Fellow MEDICATIONS: Antibiotic prophylaxis given within one hour prior to skin incision. PROPHYLAXIS: Venous thromboembolism prophylaxis was ordered at the time of surgery in the form of mechanical prophylaxis using sequential compression devices. INDICATION: Mr. Baer is a 63 y.o. male who presented with intractable low back and lower extremity symptoms with good correlation between the imaging studies and clinical signs and symptoms. The patient failed all conservative treatment. In view of the presence of significant symptoms affecting the activities of daily living to a significant extent, surgical treatment was discussed with the goals, risk and benefits of surgery and the fact that surgery may or may not alleviate the symptoms completely with small chances of even worsening of the symptoms. The patient chose to proceed with surgery after clear understanding of all the risk and benefits and goals of surgery. TECHNIQUE: After induction of general anesthesia, the patient was carefully turned prone on a Je table and all dependent portions were carefully padded. neuro monitoring was instituted using SSEP and the free running EMGs. The patient had no SSEPs from the lower extremities and hands further SSEP monitoring was abandoned and only EMG was monitored throughout the case. The thoracolumbar region was scrubbed, prepped, and draped in the usual sterile fashion. A midline skin incision was marked out from L2-S2 based on lateral fluoroscopy. This was injected with local anesthesia and carried out sharply. Subcutaneous tissue divided using monopolar cautery over the tips of the spinous process and carried out all the way to the tip of the transverse processes of L2 through L5 and over the sacral ala and dorsal sacrum bilaterally including upto S2 level. Spinous process clamp was attached to the L2 spinous process and the dynamic reference array was attached to this. The O-arm was brought into the field and intraoperative CT scan performed and the images transferred to the [employer] system for use in intraoperative image-guided computer-assisted navigation. The navigation system was then used to place the instrumentation at the bilateral pedicles from L2 to S1 using RELINE OPEN instrumented system. Placement of iliac fixation bilaterally was done using the traditional iliac screw trajectory and an additional iliac screw was placed on the left for placement of a supporting jaren given presence of significant coronal deformity.Neuro monitoring was performed throughout the placement of instrumentation and that worse no abnormal electrophysiological activity detected. Attention was then directed to performance of the TLIFs. The inferior edge of the lamina along with lateral border of the pars along with the L5-S1 facet joint identified. Hemiaminectomy and facetectomy on the right removing the inferior facet of L5 and superior facet of S1 was performed using drill, osteotomes and kerrison rongeurs to decompress the nerves roots. Ligamentum flavum was resected thereby decompressing the neural elements from the L5 pedicle to S1 pedicle including the central canal and decompression of the other foramen. The decompression of the neural elements performed and the degree of bony and ligament removal necessary for the same was beyond and significantly more than that would otherwise be necessary to access the interbody space for interbody arthrodesis at the level. The disk space was accessed and incised sharply. on the right. Using a series of curettes and pituitary rongeurs, an aggressive and complete discectomy was performed. After completing the diskectomy, the endplates of L5 and S1 were prepared for interbody arthrodesis. The wound was irrigated and hemostasis achieved. The disk space was first packed with one fourth of a small RhBMP sponge and local morcellized autograft from the decompression as mentioned above. A lordotic titanium cage was packed with local autograft and inserted into the intervertebral space under fluoroscopy. AP and lateral fluoroscopy demonstrated the cage to be in excellent position. rhBMP was utilized for conducting fusion at L5-S1 level given the extremely challenging and high shear stress at L5-S1 level given presence of her significant coronal deformity to optimize the chances of obtaining a fusion at the base of the construct for treatment of the spinal deformity that the patient had. Use of DBM alone with the local bone autograft would put him at extremely high risk of pseudoarthrosis and subsequent surgery and hands intraoperatively given the necessity in a challenging area to obtain the fusion BMP was utilized. I did discuss the possibility of this with the patient's family before surgery. A similar decompression with interbody fusion using autograft and one forth of small BMP and placement of titanium cage as was performed at L5-S1 level was also performed at L4-5 level. Posterior column ( Salas Herring ) osteotomy was performed at L3-4 which involve removal of bilateral inferior pars, residual lamina and inferior and superior articular facets at L3-4 levels achieving a thorough central and bilateral foraminal decompression with removal of the ligamentum flavum that resulted in increased flexibility of the spine to allow correction of the deformity. Thorough irrigation was performed after achieving hemostasis. There was no obvious stenosis at this point at L2-3 level and hence no further decompression was necessary as was initially contemplated. The posterolateral elements of L2 through S1 were decorticated using a high-speed drill. The rods were seated in the heads of the screws and through a combination of jaren translation, reduction, cantilever and compression across multiple segments including osteotomy level with excellent coronal deformity and loss of lumbar lordosis correction. Significant in situ and coronal bending of the construct had to be performed for further correction of the deformity. The rods were secured in place using set caps and final tightened using the torque gas truck driver and counter-torque.A third supporting jaren was placed on the left side using a [id number] connector between L2 and L3 level and iliac screw that was placed given the presence of significant type C coronal imbalance. Final AP and lateral fluoroscopic images were taken to confirm satisfactory implant placement. The posterolateral arthrodesis from L2 - S1 was completed by laying down morselized autograft that was obtained from the bony decompression and left over small rhBMP that is an osteopromotive material for spine surgery. A gram of vancomycin and ancef powder was scattered about the wound and Hemovac drain tunneled out percutaneously from the wound. The wound was then closed in layers with use of glue for the skin. The drapes were removed, sterile dressing applied. The patient was turned back supine. There were no changes in the neuro monitoring throughout the course of the operation. PThe EBL was about 1100 ml Complications: None; patient tolerated the procedure well. Disposition: PACU - hemodynamically stable. Condition: stable Attending Attestation: I was present and scrubbed for the marino portions of the procedure. Isha Valentino [facility] Work Phone: 06-01-2023 Note Formatting of this n ote is different from the original. Date: 06/01/2023 OR Location: [facility] OR Name: Melvin Baer, : 1960, Age: 63 y.o., , Sex: male Diagnosis Pre-op Diagnosis * Spinal stenosis of lumbar region with neurogenic claudication [M48.062] * Sagittal plane imbalance [M43.8X9] * Scoliosis of thoracolumbar region due to degenerative disease of spine in adult [M41.55] * Lumbar foraminal stenosis [M48.061] * Lumbar radiculopathy, acute [M54.16] * Lumbar stenosis with neurogenic claudication [M48.062] Post-op Diagnosis * Spinal stenosis of lumbar region with neurogenic claudication [M48.062] * Sagittal plane imbalance [M43.8X9] * Scoliosis of thoracolumbar region due to degenerative disease of spine in adult [M41.55] * Lumbar foraminal stenosis [M48.061] * Lumbar radiculopathy, acute [M54.16] * Lumbar stenosis with neurogenic claudication [M48.062] Procedures L4-5 and L5-S1 transforaminal lumbar interbody fusion with placement of interbody cage with decompression L3-4 posterior column osteotomy with L2-3 laminectomy and facetectomy and L2-S1 instrumented fusion using local bone autograft and BMP with pelvic fixation. - NM ARTHRODESIS COMBINED TQ 1NTRSPC LUMBAR NM OSTEOTOMY SPINE PST/PSTLAT APPR 1 VRT SGM LMBR [] NM ARTHRODESIS PST/PSTLAT TQ 1NTRSPC EA ADDL NTRSPC [64758] NM STACK FACETECTOMY & FORAMOTOMY 1 VRT SGM LUMBAR [52537] NM POSTERIOR SEGMENTAL INSTRUMENTATION 3-6 VRT SEG [18104] NM PELVIC FIXATION OTHER THAN SACRUM [] NM ALLOGRAFT FOR SPINE SURGERY ONLY MORSELIZED [] NM AUTOGRAFT SPINE SURGERY LOCAL FROM SAME INCISION [] NM STEREOTACTIC COMPUTER ASSISTED PX SPINAL [18624] NM INSJ BIOMCHN DEV INTERVERTEBRAL DSC SPC W/ARTHRD [40853] NM ARTHRODESIS CMBN TQ 1NTRSPC EACH ADDITIONAL [62158] Surgeons * Isha Valentino - Primary Resident/Fellow/Other Biophysics Professor: Surgeon(s) and Role: * Terrell Johnson MD - Resident - Assisting * Barb Putnam MD - Fellow Procedure Summary Anesthesia: General ASA: III Anesthesia Staff: Anesthesiologist: Kal Bacon MD C-AA: SHERRI Carter MANDIE: Lucian Dunne Estimated Blood Loss: 1100mL Intra-op Medications: Administrations occurring from 0715 to 1255 on 06/01/23: Medication Name Total Dose thrombin (recombinant) (Recothrom) topical solution 10,000 Units vancomycin (Vancocin) vial for injection 3 g ceFAZolin (Ancef) injection 1 g lidocaine-epinephrine (Xylocaine W/EPI) 1 %-1:100,000 injection 10 mL polymyxin B 500,000 Units in sodium chloride 0.9 % 1,000 mL irrigation 1,000 mL ketamine (Ketalar) 500 mg/250 mL D5W (2 mg/mL) infusion 113.69 mg Anesthesia Record Intraprocedure I/O Totals Intake Ketamine 0.00 mL The total shown is the total volume documented since Anesthesia Start was filed. LR bolus 1200.00 mL Tranexamic Acid 0.00 mL The total shown is the total volume documented since Anesthesia Start was filed. Propofol Drip 0.00 mL The total shown is the total volume documented since Anesthesia Start was filed. Phenylephrine Drip 0.00 mL The total shown is the total volume documented since Anesthesia Start was filed. lactated Ringer's 1000.00 mL potassium chloride 20 mEq in 100 mL IV premix 100.00 mL Total Intake 2300 mL Output Urine 710 mL Est. Blood Loss 1100 mL Total Output 1810 mL Net Net Volume 490 mL Specimen: No specimens collected Staff: Terminal Supervisor: Levi Gonzales RN; Kimberli Hastings RN Scrub Person: Lucian Castillo; Sam Khan Findings: excellent correction Complications: None; patient tolerated the procedure well. Disposition: PACU - hemodynamically stable. Condition: stable Specimens Collected: No specimens collected Attending Attestation: Isha Valentino [facility] Work Phone: 06-01-2023 Consult note Formatting of th is note is different from the original. Consults Acute Pain Service Melvin Baer is a 63 y.o. year old male patient who presents for L4-5 and L5-S1 transforaminal lumbar fusion with decompression L3-4 and L2-3 laminectomy and facetectomy and L2-S1 fusion with Dr. Valentino. Acute Pain consulted for block for postoperative pain control. Anticipated Postop Pain Issues - Palliative: typically relieved with IV analgesics and regional local anesthetics Provocative: typically with movement Quality: typically burning and aching Radiation: typically none Severity: typically severe 8-01/02 Timing: typically constant Past Medical History: Diagnosis Date Arthritis F/W Rheumatologis, on Methotrexate Chronic pain disorder COVID-2020 recovererd Diabetes mellitus ([facility]) F/W PCP Hemoglobin A1c 8.0% or greater 03/08/2023 Last A1c=8.2, jardiance was added. Hypertension F/W PCP, not taking any medications Low back pain August 2018 Lumbar spondylosis Peripheral neuropathy bilateral feet R>L PONV (postoperative nausea and vomiting) Spinal stenosis scheduled for surgery with Dr. Valentino on 06/01/2023 Type 2 diabetes mellitus ([facility]) September 2008 Vision loss wears glasses Past Surgical History: Procedure Laterality Date COLONOSCOPY OTHER SURGICAL HISTORY right knee arthroscopy x2 Family History Problem Relation Name Age of Onset Aortic aneurysm Mother Cancer Father Bhavik Baer Stroke Brother Bhavik Baer Social History Socioeconomic History Marital status: Spouse name: Not on file Number of children: Not on file Years of education: Not on file Highest education level: Not on file Occupational History Not on file Tobacco Use Smoking status: Never Smokeless tobacco: Never Vaping Use Vaping Use: Never used Substance and Sexual Activity Alcohol use: Not Currently Drug use: Never Sexual activity: Yes Partners: Female Other Topics Concern Not on file Social History Narrative Not on file Social Determinants of Health Financial Resource Strain: Not on file Food Insecurity: Not on file Transportation Needs: Not on file Physical Activity: Not on file Stress: Not on file Social Connections: Not on file Intimate Partner Violence: Not on file Housing Stability: Not on file No Known Allergies Review of Systems Gen: No fatigue, anorexia, insomnia, fever. Eyes: No vision loss, double vision, drainage, eye pain. ENT: No pharyngitis, dry mouth, no hearing changes or ear discharge Cardiac: No chest pain, palpitations, syncope, near syncope. Pulmonary: No shortness of breath, cough, hemoptysis. Heme/lymph: No swollen glands, fever, bleeding. GI: No abdominal pain, change in bowel habits, melena, hematemesis, hematochezia, nausea, vomiting, diarrhea. : No discharge, dysuria, frequency, urgency, hematuria. Endo: No polyuria or weight loss. Musculoskeletal: Negative for any pain or loss of ROM/weakness Skin: No rashes or lesions Neuro: Normal speech, no numbness or weakness. No gait difficulties Review of systems is otherwise negative unless stated above or in history of present illness. Physical Exam: Constitutional: no distress, alert and cooperative Eyes: clear sclera Head/Neck: No apparent injury, trachea midline Respiratory/Thorax: Patent airways, thorax symmetric, breathing comfortably Cardiovascular: no pitting edema Gastrointestinal: Nondistended Musculoskeletal: ROM intact Extremities: no clubbing Neurological: alert, barrett x4 Psychological: Appropriate affect Results for orders placed or performed during the hospital encounter of 06/01/23 (from the past 24 hour(s)) POCT GLUCOSE Result Value Ref Range POCT Glucose 99 74 - 99 mg/dL Melvin Baer is a 63 y.o. year old male patient who presents for L4-5 and L5-S1 transforaminal lumbar fusion with decompression L3-4 and L2-3 laminectomy and facetectomy and L2-S1 fusion with Dr. Valentino. Acute Pain consulted for block for postoperative pain control. Plan: - Bilateral paravertebral SS blocks performed preoperatively on 06/01/23 - Acute pain service will follow POD1 if inpatient - Rest of pain management per primary team [place] [phone] ph [phone] Associated attestation - Amada Palomino MD - 06/01/2023 10:58 AM EST I personally saw the patient, discussed risks and benefits, answered all questions, reviewed the chart and agree with the resident's plan. [facility] Work Phone: 06-01-2023 Consult note Formatting of th is note is different from the original. Consults Acute Pain Service Melvin Baer is a 63 y.o. year old male patient who presents for L4-5 and L5-S1 transforaminal lumbar fusion with decompression L3-4 and L2-3 laminectomy and facetectomy and L2-S1 fusion with Dr. Valentino. Acute Pain consulted for block for postoperative pain control. Anticipated Postop Pain Issues - Palliative: typically relieved with IV analgesics and regional local anesthetics Provocative: typically with movement Quality: typically burning and aching Radiation: typically none Severity: typically severe -01/02 Timing: typically constant Past Medical History: Diagnosis Date Arthritis F/W Rheumatologis, on Methotrexate Chronic pain disorder COVID-19 2020 recovererd Diabetes mellitus ([facility]) F/W PCP Hemoglobin A1c 8.0% or greater 03/08/2023 Last A1c=8.2, jardiance was added. Hypertension F/W PCP, not taking any medications Low back pain August 2018 Lumbar spondylosis Peripheral neuropathy bilateral feet R>L PONV (postoperative nausea and vomiting) Spinal stenosis scheduled for surgery with Dr. Valentino on 06/01/2023 Type 2 diabetes mellitus ([facility]) September 2008 Vision loss wears glasses Past Surgical History: Procedure Laterality Date COLONOSCOPY OTHER SURGICAL HISTORY right knee arthroscopy x2 Family History Problem Relation Name Age of Onset Aortic aneurysm Mother Cancer Father Bhavik Jacklin Stroke Brother Bhavik Baer Social History Socioeconomic History Marital status: Spouse name: Not on file Number of children: Not on file Years of education: Not on file Highest education level: Not on file Occupational History Not on file Tobacco Use Smoking status: Never Smokeless tobacco: Never Vaping Use Vaping Use: Never used Substance and Sexual Activity Alcohol use: Not Currently Drug use: Never Sexual activity: Yes Partners: Female Other Topics Concern Not on file Social History Narrative Not on file Social Determinants of Health Financial Resource Strain: Not on file Food Insecurity: Not on file Transportation Needs: Not on file Physical Activity: Not on file Stress: Not on file Social Connections: Not on file Intimate Partner Violence: Not on file Housing Stability: Not on file No Known Allergies Review of Systems Gen: No fatigue, anorexia, insomnia, fever. Eyes: No vision loss, double vision, drainage, eye pain. ENT: No pharyngitis, dry mouth, no hearing changes or ear discharge Cardiac: No chest pain, palpitations, syncope, near syncope. Pulmonary: No shortness of breath, cough, hemoptysis. Heme/lymph: No swollen glands, fever, bleeding. GI: No abdominal pain, change in bowel habits, melena, hematemesis, hematochezia, nausea, vomiting, diarrhea. : No discharge, dysuria, frequency, urgency, hematuria. Endo: No polyuria or weight loss. Musculoskeletal: Negative for any pain or loss of ROM/weakness Skin: No rashes or lesions Neuro: Normal speech, no numbness or weakness. No gait difficulties Review of systems is otherwise negative unless stated above or in history of present illness. Physical Exam: Constitutional: no distress, alert and cooperative Eyes: clear sclera Head/Neck: No apparent injury, trachea midline Respiratory/Thorax: Patent airways, thorax symmetric, breathing comfortably Cardiovascular: no pitting edema Gastrointestinal: Nondistended Musculoskeletal: ROM intact Extremities: no clubbing Neurological: alert, barrett x4 Psychological: Appropriate affect Results for orders placed or performed during the hospital encounter of 06/01/23 (from the past 24 hour(s)) POCT GLUCOSE Result Value Ref Range POCT Glucose 99 74 - 99 mg/dL Melvin Baer is a 63 y.o. year old male patient who presents for L4-5 and L5-S1 transforaminal lumbar fusion with decompression L3-4 and L2-3 laminectomy and facetectomy and L2-S1 fusion with Dr. Valentino. Acute Pain consulted for block for postoperative pain control. Plan: - Bilateral paravertebral SS blocks performed preoperatively on 06/01/23 - Acute pain service will follow POD1 if inpatient - Rest of pain management per primary [place] [phone] Associated attestation - Amada Palomino MD - 06/01/2023 10:58 AM EST I personally saw the patient, discussed risks and benefits, answered all questions, reviewed the chart and agree with the resident's plan. documented in this encounter [facility] Work Phone: 06-01-2023 Hospital Note Formatting of t his note might be different from the original. 63 year old male with Hx of HTN, DM2 c/b peripheral neuropathy, psoriatic arthritis (on methotrexate and leflunomide), who presented with progressive chronic low back pain and bilateral lower extremity radiculopathy R>L. 05/31 s/p L2-pelvis instrumented fusion, L3-4 PCO, L4-5 and L5-S1 TLIFs. 06/05 drain removed PT/OT eval recommend SNF; re-eval 06/05 recommend home with Home Care. Discharged with scheduled follow up. [facility] Work Phone: 06-01-2023 Attending History and physical note H&P reviewed. The patient was examined and there are no changes to the H&P. Associated attestation - Isha Valentino MD - 06/01/2023 7:26 AM EST Agree. Discussed with the patient and the family the pros and cons of all the available allograft options including DBM and rhBMP and the patient and the family agreed to the use of any of those understanding the fact that the insurance may or may not cover the cost. They asked me to use what I would consider the best depending on the need of the patient based for optimal healing and intraoperative findings. Isha Valentino MD, [facility] Promotional Marketing Analyst of Neurological Surgery [facility] [employer] Attending Surgeon Director - Minimally Invasive Spine Surgery [place], [place] Source Note - Lama Ewelina MD - 05/17/2023 1:00 PM EST CPM/PAT Evaluation Name: Melvin Baer (Melvin Baer) /Age: 205/16/1960/63 y.o. In-Person Chief Complaint: 63 y/o male scheduled for male on Laminectomy and Facetectomy for Decompression at L4/5 and L5/S1 with Dr. Valentino secondary to spinal stenosis. PMHX includes PONV, HTN, DM2, Peripheral neuropathy, Psoriatic arthritis. Presents to [facility] today for perioperative risk stratification and optimization. Past Medical History: Diagnosis Date Arthritis F/W Rheumatologis, on Methotrexate Chronic pain disorder COVID-19 2020 recovererd Diabetes mellitus ([facility]) F/W PCP Hemoglobin A1c 8.0% or greater 03/08/2023 Last A1c=8.2, jardiance was added. Hypertension F/W PCP, not taking any medications Low back pain August 2018 Lumbar spondylosis Peripheral neuropathy bilateral feet R>L PONV (postoperative nausea and vomiting) Spinal stenosis scheduled for surgery with Dr. Valentino on 06/01/2023 Type 2 diabetes mellitus ([facility]) September 2008 Vision loss wears glasses Past Surgical History: Procedure Laterality Date COLONOSCOPY OTHER SURGICAL HISTORY right knee arthroscopy x2 Patient reports being sexually active and has had partner(s) who are female. Family History Problem Relation Name Age of Onset Aortic aneurysm Mother Cancer Father Bhavik Baer Stroke Brother Bhavik Baer No Known Allergies Prior to Admission medications Medication Sig Start Date End Date Taking? Authorizing Provider empagliflozin (Jardiance) 25 mg Take by mouth once daily. Yes Historical Provider, folic acid (Folvite) 1 mg tablet Take by mouth once daily. Yes Historical Provider, glipiZIDE (Glucotrol) 10 mg tablet Take 1 tablet (10 mg) by mouth 2 times a day before meals. Yes Historical Provider, leflunomide (Arava) 20 mg tablet Take 1 tablet (20 mg) by mouth once daily. Yes Historical Provider, metFORMIN (Glucophage) 1,000 mg tablet Take 1 tablet (1,000 mg) by mouth 2 times a day with meals. Yes Historical Provider, methotrexate (Trexall) 2.5 mg tablet Take 3 tablets (7.5 mg total) by mouth 1 (one) time per week. Follow directions carefully, and ask to explain any part you do not understand. Take exactly as directed. Takes on sunday Yes Historical Provider, pioglitazone (Actos) 45 mg tablet Take 1 tablet (45 mg) by mouth once daily. Yes Historical Provider, chlorhexidine (Hibiclens) 4 % external liquid Apply topically once daily as needed for wound care for up to 5 days. 05/17/23 05/22/23 Lama Ewelina MD chlorhexidine (Peridex) 0.12 % solution Use 15 mL in the mouth or throat if needed for wound care for up to 14 days. 05/17/23 05/31/23 Lama Ewelina MD gabapentin (Neurontin) 300 mg capsule Take 1 capsule (300 mg) by mouth 3 times a day. Historical Provider, MD CONNOLLY ROS: Constitutional: neg Neuro/Psych: nervous/anxious Eyes: Ears: Nose: Mouth: Throat: Neck: neg Cardio: neg Respiratory: neg Endocrine: neg GI: neg : Musculoskeletal: arthralgias myalgias Hematologic: neg Skin: neg Physical Exam Vitals reviewed. Constitutional: Appearance: He is normal weight. Cardiovascular: Rate and Rhythm: Normal rate and regular rhythm. Pulmonary: Effort: Pulmonary effort is normal. Breath sounds: Normal breath sounds. Abdominal: Palpations: Abdomen is soft. Musculoskeletal: General: Tenderness present. Cervical back: Normal range of motion. Skin: General: Skin is warm and dry. Neurological: General: No focal deficit present. Mental Status: He is alert and oriented to person, place, and time. Mental status is at baseline. Psychiatric: Mood and Affect: Mood normal. Behavior: Behavior normal. Thought Content: Thought content normal. Judgment: Judgment normal. PAT AIRWAY: Airway: Mallampati:: II TM distance:: >3 FB Neck ROM:: Full Visit Vitals BP (!) 162/92 Pulse 90 Temp 36.2 C (97.1 F) (Tympanic) DASI Risk Score Flowsheet Row Most Recent Value DASI SCORE 4.5 METS Score (Will be calculated only when all the questions are answered) 3.3 Caprini DVT Assessment No data to display Modified Frailty Index No data to display CHADS2 Stroke Risk Current as of 46 minutes ago N/A 3 - 100%: High Risk 2 - 3%: Medium Risk 0 - 2%: Low Risk Last Change: N/A This score determines the patient's risk of having a stroke if the patient has atrial fibrillation. This score is not applicable to this patient. Components are not calculated. Revised Cardiac Risk Index No data to display Apfel Simplified Score No data to display Risk Analysis Index Results This Encounter No data found in the last 1 encounters. Stop Bang Score Flowsheet Row Most Recent Value Do you snore loudly? 0 Do you often feel tired or fatigued after your sleep? 0 Has anyone ever observed you stop breathing in your sleep? 0 Do you have or are you being treated for high blood pressure? 0 Recent BMI (Calculated) 31.6 Is BMI greater than 35 kg/m2? 0=No Age older than 50 years old? 1=Yes Gender - Male 1=Yes Lab Results Component Value Date WBC 6.6 05/17/2023 HGB 14.3 05/17/2023 HCT 42.8 05/17/2023 MCV 88 05/17/2023 PLT 287 05/17/2023 Assessment & Plan: 63 y/o male scheduled for male on Laminectomy and Facetectomy for Decompression at L4/5 and L5/S1 with Dr. Valentino secondary to spinal stenosis. PMHX includes PONV, HTN, DM2, Peripheral neuropathy, Psoriatic arthritis. Presents to CPM today for perioperative risk stratification and optimization. Neuro: Peripheral neuropathy HEENT/Airway No diagnosis or significant findings on chart review, clinical presentation, and evaluation. Cardiovascular: HTN, was taking lisinopril but has stopped needing it. Follows up regularly with his PCP. METS: 3.3, pain is why he is limited. RCRI: 0 points, 3.9% risk for postoperative MACE SAVANAH: 0.1% risk for postoperative MACE EKG - NSR, no previous ECGs on record to compare No additional preoperative testing is currently indicated. Pulmonary: No pulmonary diagnosis or significant findings on chart review or clinical presentation and evaluation. ARISCAT: 26-44 points, 13.3% risk of in-hospital postoperative pulmonary complication PRODIGY: Moderate risk for opioid induced respiratory depression STOP-BANG 3 Discussed smoking cessation. Deep breathing exercise instructions provided to patient. Renal/: No diagnosis, significant findings on chart review, clinical presentation, or evaluation. Gastrointestinal: No diagnosis or significant findings on chart review or clinical presentation and evaluation. EAT-10 score 0 Endocrine: DM2, on Jardiance, glipizide, metformin, pioglitazone. Instructions on holding these medications were given. Review medication instructions. Hematologic: No diagnosis or significant findings on chart review or clinical presentation and evaluation. Caprini Score 9 indicating high risk for perioperative DVT. Infectious disease: No ID diagnosis. Staph screening completed and prescription provided for CHG body wash and dental rinse. CHG use instructions reviewed and provided to patient. Musculoskeletal: Spinal stenosis, peripheral neuropathy Psoriatic arthritis, controlled with on methotrexate, Anesthesia: PONV Other: Overall, patient at moderate risk for the scheduled surgery. Discussed with patient medication instructions, NPO guidelines, and any questions or concerns. Case seen and discussed with Dr. Alvarado. [facility] Work Phone: 06-01-2023 History and physical note H&P reviewed. The patient was examined and there are no changes to the H&P. Associated attestation - Isha Valentino MD - 06/01/2023 7:26 AM EST Agree. Discussed with the patient and the family the pros and cons of all the available allograft options including DBM and rhBMP and the patient and the family agreed to the use of any of those understanding the fact that the insurance may or may not cover the cost. They asked me to use what I would consider the best depending on the need of the patient based for optimal healing and intraoperative findings. Isha Valentino MD, [facility] Promotional Marketing Analyst of Neurological Surgery [employer] [facility] [employer] Attending Surgeon Director - Minimally Invasive Spine Surgery [place], [place] Source Note - Lama Ewelina MD - 05/17/2023 1:00 PM EST CPM/PAT Evaluation Name: Melvin Baer (Melvin Baer) /Age: 205/16/1960/63 y.o. In-Person Chief Complaint: 63 y/o male scheduled for male on Laminectomy and Facetectomy for Decompression at L4/5 and L5/S1 with Dr. Valentino secondary to spinal stenosis. PMHX includes PONV, HTN, DM2, Peripheral neuropathy, Psoriatic arthritis. Presents to CPM today for perioperative risk stratification and optimization. Past Medical History: Diagnosis Date Arthritis F/W Rheumatologis, on Methotrexate Chronic pain disorder COVID-19 2020 recovererd Diabetes mellitus ([facility]) F/W PCP Hemoglobin A1c 8.0% or greater 03/08/2023 Last A1c=8.2, jardiance was added. Hypertension F/W PCP, not taking any medications Low back pain August 2018 Lumbar spondylosis Peripheral neuropathy bilateral feet R>L PONV (postoperative nausea and vomiting) Spinal stenosis scheduled for surgery with Dr. Valentino on 06/01/2023 Type 2 diabetes mellitus ([facility]) September 2008 Vision loss wears glasses Past Surgical History: Procedure Laterality Date COLONOSCOPY OTHER SURGICAL HISTORY right knee arthroscopy x2 Patient reports being sexually active and has had partner(s) who are female. Family History Problem Relation Name Age of Onset Aortic aneurysm Mother Cancer Father Bhavik Baer Stroke Brother Bhavik Baer No Known Allergies Prior to Admission medications Medication Sig Start Date End Date Taking? Authorizing Provider empagliflozin (Jardiance) 25 mg Take by mouth once daily. Yes Historical Provider, folic acid (Folvite) 1 mg tablet Take by mouth once daily. Yes Historical Provider, glipiZIDE (Glucotrol) 10 mg tablet Take 1 tablet (10 mg) by mouth 2 times a day before meals. Yes Historical Provider, leflunomide (Arava) 20 mg tablet Take 1 tablet (20 mg) by mouth once daily. Yes Historical Provider, metFORMIN (Glucophage) 1,000 mg tablet Take 1 tablet (1,000 mg) by mouth 2 times a day with meals. Yes Historical Provider, methotrexate (Trexall) 2.5 mg tablet Take 3 tablets (7.5 mg total) by mouth 1 (one) time per week. Follow directions carefully, and ask to explain any part you do not understand. Take exactly as directed. Takes on sunday Yes Historical Provider, pioglitazone (Actos) 45 mg tablet Take 1 tablet (45 mg) by mouth once daily. Yes Historical Provider, chlorhexidine (Hibiclens) 4 % external liquid Apply topically once daily as needed for wound care for up to 5 days. 05/17/23 05/22/23 Lama Ewelina MD chlorhexidine (Peridex) 0.12 % solution Use 15 mL in the mouth or throat if needed for wound care for up to 14 days. 05/17/23 05/31/23 Lama Ewelina MD gabapentin (Neurontin) 300 mg capsule Take 1 capsule (300 mg) by mouth 3 times a day. Historical Provider, MD CONNOLLY ROS: Constitutional: neg Neuro/Psych: nervous/anxious Eyes: Ears: Nose: Mouth: Throat: Neck: neg Cardio: neg Respiratory: neg Endocrine: neg GI: neg : Musculoskeletal: arthralgias myalgias Hematologic: neg Skin: neg Physical Exam Vitals reviewed. Constitutional: Appearance: He is normal weight. Cardiovascular: Rate and Rhythm: Normal rate and regular rhythm. Pulmonary: Effort: Pulmonary effort is normal. Breath sounds: Normal breath sounds. Abdominal: Palpations: Abdomen is soft. Musculoskeletal: General: Tenderness present. Cervical back: Normal range of motion. Skin: General: Skin is warm and dry. Neurological: General: No focal deficit present. Mental Status: He is alert and oriented to person, place, and time. Mental status is at baseline. Psychiatric: Mood and Affect: Mood normal. Behavior: Behavior normal. Thought Content: Thought content normal. Judgment: Judgment normal. PAT AIRWAY: Airway: Mallampati:: II TM distance:: >3 FB Neck ROM:: Full Visit Vitals BP (!) 162/92 Pulse 90 Temp 36.2 C (97.1 F) (Tympanic) DASI Risk Score Flowsheet Row Most Recent Value DASI SCORE 4.5 METS Score (Will be calculated only when all the questions are answered) 3.3 Caprini DVT Assessment No data to display Modified Frailty Index No data to display CHADS2 Stroke Risk Current as of 46 minutes ago N/A 3 - 100%: High Risk 2 - 3%: Medium Risk 0 - 2%: Low Risk Last Change: N/A This score determines the patient's risk of having a stroke if the patient has atrial fibrillation. This score is not applicable to this patient. Components are not calculated. Revised Cardiac Risk Index No data to display Apfel Simplified Score No data to display Risk Analysis Index Results This Encounter No data found in the last 1 encounters. Stop Bang Score Flowsheet Row Most Recent Value Do you snore loudly? 0 Do you often feel tired or fatigued after your sleep? 0 Has anyone ever observed you stop breathing in your sleep? 0 Do you have or are you being treated for high blood pressure? 0 Recent BMI (Calculated) 31.6 Is BMI greater than 35 kg/m2? 0=No Age older than 50 years old? 1=Yes Gender - Male 1=Yes Lab Results Component Value Date WBC 6.6 05/17/2023 HGB 14.3 05/17/2023 HCT 42.8 05/17/2023 MCV 88 05/17/2023 PLT 287 05/17/2023 Assessment & Plan: 63 y/o male scheduled for male on Laminectomy and Facetectomy for Decompression at L4/5 and L5/S1 with Dr. Valentino secondary to spinal stenosis. PMHX includes PONV, HTN, DM2, Peripheral neuropathy, Psoriatic arthritis. Presents to CPM today for perioperative risk stratification and optimization. Neuro: Peripheral neuropathy HEENT/Airway No diagnosis or significant findings on chart review, clinical presentation, and evaluation. Cardiovascular: HTN, was taking lisinopril but has stopped needing it. Follows up regularly with his PCP. METS: 3.3, pain is why he is limited. RCRI: 0 points, 3.9% risk for postoperative MACE SAVANAH: 0.1% risk for postoperative MACE EKG - NSR, no previous ECGs on record to compare No additional preoperative testing is currently indicated. Pulmonary: No pulmonary diagnosis or significant findings on chart review or clinical presentation and evaluation. ARISCAT: 26-44 points, 13.3% risk of in-hospital postoperative pulmonary complication PRODIGY: Moderate risk for opioid induced respiratory depression STOP-BANG 3 Discussed smoking cessation. Deep breathing exercise instructions provided to patient. Renal/: No diagnosis, significant findings on chart review, clinical presentation, or evaluation. Gastrointestinal: No diagnosis or significant findings on chart review or clinical presentation and evaluation. EAT-10 score 0 Endocrine: DM2, on Jardiance, glipizide, metformin, pioglitazone. Instructions on holding these medications were given. Review medication instructions. Hematologic: No diagnosis or significant findings on chart review or clinical presentation and evaluation. Caprini Score 9 indicating high risk for perioperative DVT. Infectious disease: No ID diagnosis. Staph screening completed and prescription provided for CHG body wash and dental rinse. CHG use instructions reviewed and provided to patient. Musculoskeletal: Spinal stenosis, peripheral neuropathy Psoriatic arthritis, controlled with on methotrexate, Anesthesia: PONV Other: Overall, patient at moderate risk for the scheduled surgery. Discussed with patient medication instructions, NPO guidelines, and any questions or concerns. Case seen and discussed with Dr. Alvarado. documented in this encounter [facility] Work Phone: 03-28-2023 Evaluation note Encounter Date Diagnosis Assessment Notes Mar, Lumbosacral spondylosis (ICD-10 - M47.817) I reviewed the x-ray lumbar spine from 10/16/2022 and which shows levoscoliosis. Diffuse endplate and facet joint degenerative changes with moderate disc space narrowing L3-L4, L4-L5 and L5-S1. No of pathological motion on flexion-extension . I independently reviewed the MRI of the lumbar spine from 12/15/2022 [id number] with patient and and which shows worsening spinal canal and neural foraminal narrowing secondary to disc and facet degenerative changes at the L3-L4 L4-L5 and L5-S1 at the L4-L5 there is severe spinal canal stenosis which is slightly worse when compared to previous exam. There is right central and subarticular disc extrusion with cranial cranial migration which is new. Contributing to severe right neuroforaminal narrowing which is consistent with the patient's symptoms. Pharmacological management will start gabapentin 300 mg daily. Will refer patient for surgical consult with Dr. Ahn as Dr. Dumont will be out of the office for the next 3 months. Mar, Lumbar radiculopathy (ICD-10 - M54.16) Mar, Levoscoliosis of lumbar spine (ICD-10 - M41.86) [facility] Other 11-27-2023 Evaluation note* Encounter Date Diagnosis Assessment Notes Treatment Notes Treatment Clinical Notes Jan, Lumbar radiculopathy (ICD-10 - M54.16) 62 year old male here for follow up status post caudal epidural steroid injection under fluoroscopic guidance. Patient reports minimal pain relief as well as improved walking, standing and daily functions following procedure. He continues to complain of low back pain with radiation down the bilateral lower extremities to the calves. He feels his bilateral lower extremity weakness has improved Anatomy of spine discussed in detail with patient in regards to patients condition. I will refer patient to Dr Dumont for surgical evaluation at this time. Jan, Sacroiliitis (ICD-10 - M46.1) Consider bilateral sacroiliac joint injection under fluoroscopic guidance in the future Jan, Chronic pain (ICD-10 - G89.29) Continue with current treatment plan [facility] Other [id number]* Encounter Date Diagnosis Assessment Notes Treatment Notes Treatment Clinical Notes Dec, Sacroiliitis (ICD-10 - M46.1) 62 year old male here for follow up to discuss chronic pain. He voices complaints of low back pain with radiation into bilateral hips and down the posterior aspect of the right thigh to the knee. I independently reviewed his recent lumbar spine x-ray which shows evidence of scoliosis, multilevel level DDD worse at L3-4 and L4-5 along with advanced facet arthropathy. I also reviewed his recent lumbar spine MRI which shows multilevel degenerative disc disease causing varying degrees of narrowing in the spinal canal worse at L3-4 and L4-5. Discussed with patient different treatment options, I recommend proceeding with a bilateral SI joint injection. Risks and benefits of procedure explained to patient; patient verbalizes understanding. Dec, Lumbar radiculopathy (ICD-10 - M54.16) Proceed with treatment plan, can consider referral to neurosurgery in the future if needed Dec, Lumbosacral spondylosis (ICD-10 - M47.817) In the future if his lumbar pain persists we can consider lumbar facet medial branch nerve blocks followed by RFA if applicable. Dec, Chronic pain (ICD-10 - G89.29) Follow up after procedure. [facility] Other Evaluation noteNo InformationNort [employer] Other Evaluation noteNo assessment information available [facility] Work Phone: Evaluation note* Diagnosis Back pain, unspecified back location, unspecified back pain laterality, unspecified chronicity- [facility] Spinal stenosis of lumbar region with neurogenic claudication documented in this encounter [facility] Work Phone: Evaluation note* Diagnosis Spinal stenosis of lumbar region with neurogenic claudication Sagittal plane imbalance Other curvatures of spine associated with other conditions Scoliosis of thoracolumbar region due to degenerative disease of spine in adult Lumbar foraminal stenosis Lumbar radiculopathy, acute Lumbar stenosis with neurogenic claudication Surgery, elective Unspecified elective surgery for purposes other than remedying health states Preop testing Unspecified pre-operative examination Preoperative general physical examination Other specified pre-operative examination Spinal stenosis of lumbar region with neurogenic claudication Sagittal plane imbalance Other curvatures of spine associated with other conditions Scoliosis of thoracolumbar region due to degenerative disease of spine in adult Lumbar foraminal stenosis Lumbar radiculopathy, acute Lumbar stenosis with neurogenic claudication documented in this encounter [facility] Work Phone: Evaluation note* Diagnosis Lumbar radiculopathy, right- Primary Lumbar radiculopathy, right Spinal stenosis of lumbar region with neurogenic claudication Sagittal plane imbalance Other curvatures of spine associated with other conditions Scoliosis of thoracolumbar region due to degenerative disease of spine in adult Lumbar foraminal stenosis Lumbar radiculopathy, acute Lumbar stenosis with neurogenic claudication Postoperative pain Other acute postoperative pain Constipation due to pain medication Psoriatic arthritis (CMS/HCC) Psoriatic arthropathy Spinal stenosis of lumbar region with neurogenic claudication Sagittal plane imbalance Other curvatures of spine associated with other conditions Scoliosis of thoracolumbar region due to degenerative disease of spine in adult Lumbar foraminal stenosis Lumbar radiculopathy, acute Lumbar stenosis with neurogenic claudication documented in this encounter [facility] Work Phone: [phone] note* Diagnosis Status post spinal surgery Other postprocedural status documented in this encounter [facility] Work Phone: [phone] note* Diagnosis Postoperative follow-up- Primary Follow-up examination, following unspecified surgery documented in this encounter [facility] Work Phone: Evaluation note* Diagnosis S/P lumbar spinal fusion Arthrodesis status Scoliosis of thoracolumbar region due to degenerative disease of spine in adult documented in this encounter [facility] Work Phone: [phone] general Narrative - Reported* Type Description Date Medical History DM Medical History arthritis Surgical History arthroscopic right knee X2 Surgical History Procedure:eye exam;D isease:Diabetes mellitus, type 2 without comp. 2012 Surgical History colonoscopy Surgical History Procedure:Arthroscopy knee;Dise ase: 2003 Surgical History Procedure:Meds;Disease:Psoriati c Arthitis Surgical History Procedure:removed;Disease:Groin cyst Surgical History Colonoscopy, Internal Hemorrhio ds- Dr. Solorio 10/02/2014 Hospitalization History see above [facility] Other Reason for referral (narrative)* Reason *Waiting for appt Please refer to Dr Dumont for surgical evaluation Diagnosis 1 Lumbar radiculopathy (M54.16) Referral Organization [facility] Referring Provider First Name Abel Referring Provider Last Name Lori Referring Provider Specialty Pain Medici ne Referred Organization [facility] Ne urosurgery Referred Provider David Dumont Referred Address [address],[address] Referred Provider Specialty Neurological Surgery Referral Priority Routine General Notes Bk Hansen 02/19 01:27:01 PM > Received today, sent P2P [facility] Other Reason for visit Narrativereferred by Dr. Sandoval [facility], [facility] [employer] Other Summary Purpose Family History No Family History Records Found Relationship Condition Age at Onset Recorded Date/T evie father Malignant neoplasm Unknown Diabetes mellitus Unknown Not Specified Heart disease Unknown brother Heart disease Unknown Advance Directives No Advanced Directives Records Found Advance Directive Response Recorded Date/ Time Advance Directives No November 12, 2018 12:39pm Advance Directive Response Recorded Date/ Time Advance Directives No November 12, 2018 11:39am Latest Code Status on File Code Status Date Activated Date Inactivated Comments Full Code 06/01/2023 7:32 PM Question Answer Comments Plan of Care: Code Status Discussion Completed Decision Maker: Patient Date Activated Date Inactivated Comments 06/01/2023 7:32 PM Question Answer Comments Plan of Care: Code Status Discussion Completed Decision Maker: Patient Date Activated Date Inactivated Comments 06/01/2023 7:32 PM Question Answer Comments Plan of Care: Code Status Discussion Completed Decision Maker: Patient Chief Complaint and Reason for Visit Chief Complaint M54.16 Back Pain Chief Complaint M54.16 Back Pain [id number] Reason for Referral Specialty Diagnoses / Procedures Referred By Contac t Referred To Contact Radiology Diagnoses S/P lumbar spinal fusion Scoliosis of thoracolumbar region due to degenerative disease of spine in adult Procedures X-ray scoliosis 2 View (NON EOS) Isha Valent[place] [id number] Garcia Department of Neurological Surgery [place] [id number] Referral ID Status Reason Start Date Expiration Date Visits Requested Visits Authorized [id number] Authorized Perform Procedure 08/13/2023 08/12/2024 1 1 Specialty Diagnoses / Procedures Referred By Contac t Referred To Contact Radiology Diagnoses Status post spinal surgery Procedures X-ray scoliosis 2 View ([place]) [place] [address] Department of Neurological Surgery [place] [id number] Referral ID Status Reason Start Date Expiration Date Visits Requested Visits Authorized [id number] Authorized Perform Procedure 07/10/2023 07/09/2024 1 1 Specialty Diagnoses / Procedures Referred By Contac t Referred To Contact Home Health Services Diagnoses Lumbar radiculopathy, right Isha Valentino [place] [address]Dion Garcia Department [place] [address] Referral ID Status Reason Start Date Expiration Date Visits Requested Visits Authorized [id number] Authorized Specialty Services Required 06/06/2023 06/05/[phone] Specialty Diagnoses / Procedures Referred By Contac t Referred To Contact Diagnoses Surgery, elective Preop testing Preoperative general physical examination Procedures ECG 12 lead Lama Theodore [place] [id number] Garcia Department of Anesthesiology/[place] [address] Referral ID Status Reason Start Date Expiration Date V isits Requested Visits Authorized [id number] Authorized 05/17/2023 2024 1 1 Specialty Diagnoses / Procedures Referred By Contac t Referred To Contact Radiology Diagnoses Spinal stenosis of lumbar region with neurogenic claudication Procedures X-ray scoliosis 2 View (NON EOS) Isha Valentino [place] [id number] Garcia Department [place] [address] Referral ID Status Reason Start Date Expiration Date Visits Requested Visits Authorized [id number] Authorized Perform Procedure 04/24/2023 04/23/2024 1 1 Specialty Diagnoses / Procedures Referred By Contac t Referred To Contact Radiology Diagnoses Back pain, unspecified back location, unspecified back pain laterality, unspecified chronicity Procedures DOWNLOAD POWERSHARE IMAGES TO EPIC Dino Villa MD [address] [place] [address] [facility] [address] [place] [address] Referral ID Status Reason Start Date Expiration Date V isits Requested Visits Authorized [id number] Authorized 04/12/2023 04/11/2024 1 1 Additional Source Comments (unrecognized sect ion and content) No Status Records FoundNo Status Records FoundNo Status Records FoundNo Status Records FoundNo Status Records FoundNo Status Records FoundNo Status Records FoundNo Status Records Found INFORMATION SOURCE (unrecogn ized section and content) DATE CREATED AUTHOR 07/22/2022 [facility] DATE CREATED AUTHOR AUTHOR'S ORGANIZ ATION 02/19/2023 [facility] DATE CREATED AUTHOR AUTHOR'S ORGANIZ ATION 05/26/2023 [facility] DATE CREATED AUTHOR AUTHOR'S ORGANIZ ATION 06/12/2023 [facility] [place] [facility] DATE CREATED AUTHOR AUTHOR'S ORGANIZ ATION 09/26/2023 [facility] DATE CREATED AUTHOR AUTHOR'S ORGANIZ ATION 10/11/2023 [facility] DATE CREATED AUTHOR AUTHOR'S ORGANIZ ATION 10/19/2023 [facility] REASON FOR VISIT (unrecogniz ed section and content) Specialty Diagnoses / Procedures Referred By Contac t Referred To Contact Radiology Diagnoses S/P lumbar spinal fusion Scoliosis of thoracolumbar region due to degenerative disease of spine in adult Procedures X-ray scoliosis 2 View (NON EOS) [place] [address] [address] Department of Neurological Surgery [place] [id number] Referral ID Status Reason Start Date Expiration Date Visits Requested Visits Authorized [id number] Authorized Perform Procedure 08/13/2023 08/12/2024 1 1 Specialty Diagnoses / Procedures Referred By Mackenzie hansen Referred To Contact Radiology Diagnoses Status post spinal surgery Procedures X-ray scoliosis 2 View (NON EOS) [place] [address] [address] Department of Neurological Surgery [place] [id number] Referral ID Status Reason Start Date Expiration Date Visits Requested Visits Authorized [id number] Authorized Perform Procedure 07/10/2023 07/09/2024 1 1 Specialty Diagnoses / Procedures Referred By Mackenzie t Referred To Contact Diagnoses Spinal stenosis of lumbar region with neurogenic claudication Sagittal plane imbalance Scoliosis of thoracolumbar region due to degenerative disease of spine in adult Lumbar foraminal stenosis Lumbar radiculopathy, acute Lumbar stenosis with neurogenic claudication Spinal stenosis of lumbar region with neurogenic claudication [M48.062] Sagittal plane imbalance [M43.8X9] Scoliosis of thoracolumbar region due to degenerative disease of spine in adult [M41.55] Lumbar foraminal stenosis [M48.061] Lumbar radiculopathy, acute [M54.16] Lumbar stenosis with neurogenic claudication [M48.062] Procedures NM ARTHRODESIS COMBINED TQ 1NTRSPC LUMBAR NM OSTEOTOMY SPINE PST/PSTLAT APPR 1 VRT SGM LMBR NM ARTHRODESIS PST/PSTLAT TQ 1NTRSPC EA ADDL NTRSPC NM STACK FACETECTOMY & FORAMOTOMY 1 VRT SGM LUMBAR NM POSTERIOR SEGMENTAL INSTRUMENTATION 3-6 VRT SEG NM PELVIC FIXATION OTHER THAN SACRUM NM ALLOGRAFT FOR SPINE SURGERY ONLY MORSELIZED NM AUTOGRAFT SPINE SURGERY LOCAL FROM SAME INCISION NM STEREOTACTIC COMPUTER ASSISTED PX SPINAL NM INSJ BIOMCHN DEV INTERVERTEBRAL DSC SPC W/ARTHRD NM ARTHRODESIS CMBN TQ 1NTRSPC EACH ADDITIONAL L4-5 and L5-S1 transforaminal lumbar interbody fusion with placement of interbody cage with decompression L3-4 posterior column osteotomy with L2-3 laminectomy and facetectomy and L2-S1 instrumented fusion using local bone autograft and BMP [place]. [place] [address] Department [place] [address] [facility] [place] [address] [place] [address] Referral ID Status Reason Start Date Expiration Date Visits Re quested Visits Authorized [id number] 1 1 Specialty Diagnoses / Procedures Referred By Contac t Referred To Contact Diagnoses Surgery, elective Preop testing Preoperative general physical examination Procedures ECG 12 [place] [address] [address] Department of Anesthesiology/[place] [address] Referral ID Status Reason Start Date Expiration Date V isits Requested Visits Authorized [id number] Authorized 05/17/2023 2024 1 1 Specialty Diagnoses / Procedures Referred By Contac t Referred To Contact Radiology Diagnoses Spinal stenosis of lumbar region with neurogenic claudication Procedures X-ray scoliosis 2 View (NON EOS) [place] [address] [address] Department [place] [address] Referral ID Status Reason Start Date Expiration Date Visits Requested Visits Authorized [id number] Authorized Perform Procedure 04/24/2023 04/23/2024 1 1 Neurosurgery office noteF/U AFTER CAUDAL EPIDURALCAUDAL EPIDURAL STEROID INJECTIONbilateral SI joint injection4 WEEK FOLLOW UP REVIEW MRI Care Teams (unrecognized sec tion and content) Team Status: Active Member Role Status Dates Major Stevens MD Primary Care Provider Active Team Status: Inactive Member Role Status Dates Major Stevens MD Primary Care Provider Active Abel Sandoval MD Attending Provider Active Team Status: Inactive Member Role Status Dates Major Stevens MD Primary Care Provider Active Sully Barney NP Attending Provider Active Applied Exercise Physiologist Relationship Specialty Start Date End Date Major Stevens MD [address] [place] [address] PCP - General Family Medicine 05/17/23 Applied Exercise Physiologist Relationship Specialty Start Date End Date Major Stevens MD [address] [place] [address] PCP - General Family Medicine 05/17/23 Applied Exercise Physiologist Relationship Specialty Start Date End Date Major Stevens MD [address] [place], [place] [address] PCP - General Family Medicine 05/17/23 Applied Exercise Physiologist Relationship Specialty Start Date End Date Major Stevens MD [address] [place], [place] [address] PCP - General Family Medicine 05/17/23 Applied Exercise Physiologist Relationship Specialty Start Date End Date Major Stevens MD [address] [place], [place] [address] PCP - General Family Medicine 05/17/23 Scheduled Active and Recently Administ ered Medications (unrecognized section and content) Medication Order 06/04/2023 06/05/2023 06/06/2023 acetaminophen (Tylenol) tablet 650 mg 650 mg, oral, Every 6 hours, First dose on Sun06/01/23 at 2000, Phase II/On Unit, If ordered PRN for pain, nurse is permitted to administer this medication for higher pain scores based on patient preference? Yes 0255 (Given - Provider: Charla Pedro RN)0842 (Given - Provider: Jacquelin Gaona RN)1314 (Given - Provider: Jacquelin Gaona RN)2144 (Given - Provider: Charla Pedro RN) 0151 (Given - Provider: Charla Pedro RN)0813 (Given - Provider: Roseanne Garcia, RN)1431 (Given - Provider: Roseanne Garcia, RN)2112 (Given - Provider: Charla Pedro RN) 0407 (Given - Provider: Charla Pedro RN)0849 (Given - Provider: Fernanda Zapata, RN)1407 (Given - Provider: Fernanda Zapata, RN)1999 (Due) bisacodyl (Dulcolax) suppository 10 mg 10 mg, rectal, Daily, First dose on 06/04/23 at 1030 1155 (Given - Provider: Jacquelin Gaona, RN) 1347 (Given - Provider: Roseanne Garcia RN - Comment: Patient request) 0900 (Not Given - Provider: Fernanda Zapata RN - Reason: Patient/family refused) cyclobenzaprine (Flexeril) tablet 10 mg 10 mg, oral, 3 times daily, First dose on Sun06/01/23 at 2100, Phase II/On Unit 0842 (Given - Provider: Jacquelin Gaona RN)1628 (Given - Provider: Jacquelin Gaona RN)2143 (Given - Provider: Charla Pedro, DAWN) 0813 (Given - Provider: Roseanne Garcia RN)1431 (Given - Provider: Roseanne Garcia RN)2112 (Given - Provider: Charla Pedro RN) 0849 (Given - Provider: Fernanda Zapata RN)1600 (Given - Provider: Fernanda Zapata RN)2100 (Due) heparin (porcine) injection 5,000 Units 5,000 Units, subcutaneous, Every 8 hours, First dose on 06/02/23 at 0000, Phase II/On Unit 0000 (Given - Provider: Charla Pedro RN)0843 (Given - Provider: Jacquelin Gaona RN)1628 (Given - Provider: Jacquelin Gaona RN) 0151 (Given - Provider: Charla Pedro RN)0814 (Given - Provider: Roseanne Garcia RN)1653 (Given - Provider: Roseanne Garcia RN) 0057 (Given - Provider: Charla Pedro RN)0849 (Given - Provider: Fernanda Zapata RN)1600 (Given - Provider: Fernanda Zapata RN) insulin lispro (HumaLOG) injection 0-5 Units 0-5 Units, subcutaneous, 3 times daily with meals, First dose on 06/02/23 at 0800, Phase II/On Unit, Insulin Lispro Corrective Scale #1 Hypoglycemia protocol Call LIP unit(s) if Blood Glucose is between 0 - 70 mg/dL 0 unit(s) if Blood glucose is between 71-150 1 unit(s) if Blood glucose is between 151-200 2 unit(s) if Blood glucose is between 201-250 3 unit(s) if Blood glucose is between 251-300 4 unit(s) if Blood glucose is between 301-350 5 unit(s) if Blood glucose is between 351-400 Notify provider unit(s) if Blood Glucose is greater than 400 mg/dL 0800 (Not Given - Provider: Jacquelin Gaona RN - Reason: Order parameters not met)1155 (Given - Provider: Jacquelin Gaona RN)1628 (Given - Provider: Jacquelin Gaona RN) 0814 (Given - Provider: Roseanne Garcia RN)1200 (Not Given - Provider: Roseanne Garcia RN - Reason: Order parameters not met - Comment: patient not eating)1851 (Not Given - Provider: Roseanne Garcia RN - Reason: Order parameters not met - Comment: Patient not eating at this time. Patient stated he is eating later) 0850 (Given - Provider: Fernanda Zapata RN)1311 (Given - Provider: Fernanda Zapata RN)1700 (Not Given - Provider: Fernanda Zapata RN - Reason: Patient/family refused) ketorolac (Toradol) injection 30 mg (COMPLETED) 30 mg, intravenous, Every 8 hours scheduled, First dose on Sun06/02/23 at 0600, For 3 days, Do not administer within 6 hours of other NSAIDs (such as ibuprofen or naproxen). 0601 (Given - Provider: Charla Pedro RN)1314 (Given - Provider: Jacquelin Gaona RN)2144 (Given - Provider: Charla Pedro RN) lidocaine (Xylocaine) 10 mg/mL (1 %) injection 50 mg 50 mg (5 mL), infiltration, Once, On Sun06/06/23 at 1130, For 1 dose 1130 (Due) lidocaine 4 % patch 1 patch 1 patch, transdermal, Administer over 12 Hours, Daily, First dose on Sun06/01/23 at 2000, Phase II/On Unit, Apply to low back. Patch will remain on for 12 hours, then removed for [address] patch directly over any surgical incisions or wounds. 0842 (Medication Applied - Provider: Jacquelin Gaona RN)2100 (Medication Removed - Provider: Charla Pedro RN) 0813 (Medication Applied - Provider: Roseanne Garcia RN - Comment: back)2099 (Medication Removed - Provider: Charla Pedro RN) 0849 (Medication Applied - Provider: Fernanda Zapata RN - Comment: mid upper back)2048 (Due: Medication Removed - Provider: Fernanda Zapata RN) polyethylene glycol (Glycolax, Miralax) packet 17 g (CANCELED) 17 g, oral, Daily, First dose on Sun06/01/23 at 2000, Phase II/On Unit, Bowel Regimen - for prevention of constipation. 0842 (Given - Provider: Jacquelin Gaona RN) polyethylene glycol (Glycolax, Miralax) packet 17 g 17 g, oral, 3 times daily, First dose (after last modification) on Sun06/04/23 at 1500, Bowel Regimen - for prevention of constipation. 1500 (Not Given - Provider: Jacquelin Gaona RN - Reason: Patient/family refused)2099 (Not Given - Provider: Charla Pedro RN - Reason: Patient/family refused) 0813 (Given - Provider: Roseanne Garcia RN)143 (Given - Provider: Roseanne Garcia RN)2111 (Given - Provider: Charla Pedro RN) 0849 (Given - Provider: Fernanda Zapata RN)1500 (Not Given - Provider: Fernanda Zapata RN - Reason: Patient/family refused)2099 (Due) potassium chloride CR (Klor-Con M20) ER tablet 40 mEq (COMPLETED) 40 mEq, oral, Once, On Sun06/06/23 at 1200, For 1 dose, Best given with food and plenty of water to minimize gastric irritation. Do not crush or chew. 1306 (Given - Provider: Fernanda Zapata RN - Comment: new order) sennosides-docusate sodium (Marycruz-Colace) 8.6-50 mg per tablet 2 tablet 2 tablet, oral, 2 times daily, First dose on Sun06/01/23 at 2100, Phase II/On Unit, Bowel Regimen - for prevention of constipation Hold for loose stools 0842 (Given - Provider: Jacquelin Gaona RN)2099 (Not Given - Provider: Charla Pedro RN - Reason: Patient/family refused) 0813 (Given - Provider: Roseanne Garcia RN)2111 (Given - Provider: Charla Pedro, RN) 0849 (Given - Provider: Fernanda Zapata, DAWN)2100 (Due) Continuous Medication Order 06/04/2023 06/05/2023 06/06/2023 sodium chloride 0.9% infusion 100 mL/hr, intravenous, Continuous, Starting on Sun06/01/23 at 2000, Phase II/On Unit, Convert IV to saline lock when taking oral fluids. PRN Medication Order 06/04/2023 06/05/2023 06/06/2023 benzocaine-menthol (Cepastat Sore Throat) 15-3.6 mg lozenge 1 lozenge 1 lozenge, Mouth/Throat, Every 2 hour PRN, sore throat, Starting on Sun06/01/23 at 1932, Phase II/On Unit dextrose 10 % in water (D10W) infusion 0.3 g/kg/hr 95.4 kg (286.2 mL/hr), intravenous, Once as needed, For blood glucose less than 70 mg/dL after 30 minutes of intervention. Discontinue once blood glucose reaches 100 mg/dL., Starting on Sun06/01/23 at 1932, For 1 dose, Phase II/On Unit, Discontinue once blood glucose reaches 100 mg/dL. dextrose 50 % injection 25 g 25 g, intravenous, Every 15 min PRN, For blood glucose less than or equal to 40 mg/dL, Starting on Sun06/01/23 at 1932, Phase II/On Unit, May repeat until blood glucose level reaches 100 mg/dL or greater. Push 2 - 3 mL/minute if patient has secure IV access. glucagon (Glucagen) injection 1 mg 1 mg, intramuscular, Every 15 min PRN, low blood sugar - see comments, For blood glucose less than or equal to 70 mg/dL and no IV access, Starting on Sun06/01/23 at 193, Phase II/On Unit, Give until blood glucose is 100 mg/dL or greater. If patient DOES NOT HAVE secure IV access & patient is unconscious, NPO or is unable to eat or drink. naloxone (Narcan) injection 0.2 mg 0.2 mg, intravenous, Every 5 min PRN, respiratory depression, Starting on Sun06/01/23 at 1932, Phase II/On Unit, If respiratory rate is less than 8 breaths/minute or patient is difficult to arouse stop any narcotics and contact physician. Administer slow IV push. Repeat as ordered until patient's respiratory rate is greater than 12 breaths/minute. naloxone (Narcan) injection 0.2 mg 0.2 mg, intravenous, As needed, respiratory depression, Once PRN patient is unarousable, and respiratory rate less than 8, Starting on Sun06/01/23 at 1932, Phase II/On Unit, HOLD DIRECTOR OF [employer]LO[employer] SALES Infusion and notify H.O. immediately ondansetron (Zofran) injection 4 mg(Linked Group 1) 4 mg, intravenous, Every 8 hours PRN, nausea/vomiting, first line, Starting on Sun06/01/23 at 1932, Phase II/On Unit, 1st Line. Give IV if patient is unable to take orally. If inadequate response within 60 minutes, proceed to next-line agent for same PRN reason or contact provider if no further options ordered. When administering via IV Push, administer over 3-5 minutes. ondansetron (Zofran) tablet 4 mg(Linked Group 1) 4 mg, oral, Every 8 hours PRN, nausea/vomiting, first line, Starting on Sun06/01/23 at 1932, Phase II/On Unit, 1st Line. Use oral route first, if possible. If inadequate response within 60 minutes, proceed to next-line agent for same PRN reason or contact provider if no further options ordered. oxyCODONE (Roxicodone) immediate release tablet 5 mg 5 mg, oral, Every 4 hours PRN, pain moderate (4-6), second line, Starting on Sun06/02/23 at 0724, If ordered PRN for pain, nurse is permitted to administer this medication for higher pain scores based on patient preference? Yes 0004 (Given - Provider: Charla Pedro RN)0430 (Given - Provider: Charla Pedro RN) 0428 (Given - Provider: Charla Pedro RN)1848 (Given - Provider: Roseanne Garcia RN) 0057 (Given - Provider: Charla Pedro RN)182 (Given - Provider: Fernanda Zapata RN) oxygen (O2) therapy inhalation, Continuous PRN - O2/gases, other, Starting on Sun06/01/23 at 1932, Phase II/On Unit, Titrate supplemental oxygen to maintain SpO2 greater than or equal to 92, Device: Nasal Cannula, Rate in liters per minute: 2 LPM, Keep O2 Sat Above: 92% promethazine (Phenergan) suppository 25 mg(Linked Group 2) 25 mg, rectal, Every 12 hours PRN, nausea/vomiting, second line, Starting on Sun06/01/23 at 1932, Phase II/On Unit, 2nd Line. Give NM if patient is unable to take orally. If inadequate response within 60 minutes, proceed to next-line agent for same PRN reason or contact provider if no further options ordered. promethazine (Phenergan) tablet 25 mg(Linked Group 2) 25 mg, oral, Every 6 hours PRN, nausea/vomiting, second line, Starting on Sun06/01/23 at 1932, Phase II/On Unit, 2nd Line. If inadequate response within 60 minutes, proceed to next-line agent for same PRN reason or contact provider if no further options ordered. No Frequency Medication Order 06/04/2023 06/05/2023 06/06/2023 lidocaine (Xylocaine) injection - [employer] Override Pull Starting on Sun06/06/23 at 1114, For 1 dose, Created by cabinet override 1115 (Due) Linked Groups Order Group 1: ondansetron (Zofran) tablet 4 mgJump to med 4 mg, oral, Every 8 hours PRN, nausea/vomiting, first line, Starting on Sun06/01/23 at 1932, Phase II/On Unit
1st Line. Use oral route first, if possible. If inadequate response within 60 minutes, proceed to next-line agent for same PRN reason or contact provider if no further options ordered.
Or ondansetron (Zofran) injection 4 mgJump to med 4 mg, intravenous, Every 8 hours PRN, nausea/vomiting, first line, Starting on Sun06/01/23 at 1932, Phase II/On Unit
1st Line. Give IV if patient is unable to take orally. If inadequate response within 60 minutes, proceed to next-line agent for same PRN reason or contact provider if no further options ordered. When administering via IV Push, administer over 3-5 minutes.
Group 2: promethazine (Phenergan) tablet 25 mgJump to med 25 mg, oral, Every 6 hours PRN, nausea/vomiting, second line, Starting on Sun06/01/23 at 1932, Phase II/On Unit
2nd Line. If inadequate response within 60 minutes, proceed to next-line agent for same PRN reason or contact provider if no further options ordered.
Or promethazine (Phenergan) suppository 25 mgJump to med 25 mg, rectal, Every 12 hours PRN, nausea/vomiting, second line, Starting on Sun06/01/23 at 1932, Phase II/On Unit
2nd Line. Give NM if patient is unable to take orally. If inadequate response within 60 minutes, proceed to next-line agent for same PRN reason or contact provider if no further options ordered.
FOR RECORDS PERTAINING TO PATIENTS WHO ARE OR HAVE BEEN ENROLLED IN A CHEMICAL DEPENDENCY/SUBSTANCEABUSE PROGRAM, SOME INFORMATION MAY BE OMITTED. This clinical summary was aggregated from multiple sources. Caution should be exercised in using it in the provision of clinical care. This summary normalizes information from multiple sources, and as a consequence, information in this document may materially change the coding, format and clinical context of patient data. In addition, data may be omitted in some cases. CLINICAL DECISIONS SHOULD BE BASED ON THE PRIMARY CLINICAL RECORDS. [facility]. provides no warranty or guarantee of the accuracy or completeness of information in this document.
[2023-11-14 07:22] LABS: Basophils Absolute Auto 0.1 10^3/uL (0.0-0.1); Basophils Percent Auto 0.7 % (0.2-2.0); Eosinophils Absolute Auto 0.2 10^3/uL (0.0-0.7); Eosinophils Percent Auto 2.8 % (0.9-7.0); Hematocrit 39.3 % (42.0-54.0); Hemoglobin 12.7 g/dL (14.0-18.0); Immature Granulocytes Abs Auto 0.01 10^3/uL (0.00-0.03); Immature Granulocytes Pct Auto 0.1 % (0.0-0.5); Lymphocytes Absolute Auto 2.1 10^3/uL (1.2-3.8); Lymphocytes Percent Auto 31.3 % (20.5-60.0); Mean Corpuscular HGB Conc 32.3 g/dL (29.9-35.2); Mean Corpuscular Hemoglobin 27.3 pg (25.9-34.0); Mean Corpuscular Volume 84.3 fL (80.0-94.0); Mean Platelet Volume 10.2 fL (9.5-13.5); Monocytes Absolute Auto 0.8 10^3/uL (0.3-0.8); Monocytes Percent Auto 11.7 % (1.7-12.0); Neutrophils Absolute Auto 3.6 10^3/uL (1.4-6.5); Neutrophils Percent Auto 53.4 % (43.0-75.0); Platelet Count 291 10^3/uL (150-450); Red Blood Count 4.66 10^6/uL (4.70-6.10); Red Cell Distribution Width 16.7 % (11.0-15.0); White Blood Count 6.7 10^3/uL (4.0-11.0)
[2023-11-14 07:38] LABS: Alanine Aminotransferase 38 U/L (16-63); Albumin Level 3.8 g/dL (3.4-5.0); Alkaline Phosphatase 94 U/L (46-116); Anion Gap 13.9; Aspartate Amino Transferase 29 U/L (15-37); BUN Creatinine Ratio 14.8; Bilirubin Total 0.4 mg/dL (0.2-1.0); Calcium 9.3 mg/dL (8.5-10.1); Carbon Dioxide 27.4 mmol/L (21.0-32.0); Chloride 104 mmol/L (98-107); Estimated GFR (African America >60 (>=60); Estimated GFR (Non-African Ame >60 (>=60); Globulin 3.7 g/dL; Glucose 93 mg/dL (74-106); Potassium 3.3 mmol/L (3.5-5.1); Sodium 142 mmol/L (136-145); Total Protein 7.5 g/dL (6.4-8.2)
[2023-11-14 08:22] LABS: Erythrocyte Sedimentation Rate 54 mm/hr (<=20)
== END 2023-11-14 07:03 | disposition home or self-care (01) ==
PROVIDERS: PCP Family Medicine; Visit Provider Internal Medicine Rheumatology
DX: L40.59 Other psoriatic arthropathy (principal); Z79.899 Other long term (current) drug therapy
CPT/HCPCS: 36415; 80053; 85025; 85652

== ENCOUNTER 2024-02-19 07:07 | Outpatient (OUT) | payer OTHER, SELFPAY ==
--- OUTSIDE RECORDS SUMMARY | 2024-02-19 07:11 | XMS_ITS | CCD ---
Author Organization [facility] Care Team Providers Care Auction Block Clerk Name Role Phone VALERIE, DR RANDALL Attending [...] Care Provider WAI Barney Sully Attending Provider MD Abel Sandoval Attending Provider MD Major Stevens Primary Care Provider Ector PARTS PULLER Sully Attending Provider MD Abel Sandvoal Attending Provider Abel Sandoval Admitting Unavailable Abel Sandoval Attending Unavailable Major Stevens Primary Care Unavailable Barney, Sully Admitting Unavailable Barney, Sully Attending Unavailable Major Stevens Primary Care Unavailable Lori, Abel S Admitting Unavailable Lori, Abel S Attending Unavailable Major Stevens Primary Care Unavailable Lori, Abel S Admitting Unavailable Lori, Abel S Attending Unavailable Major Stevens Primary Care Unavailable Natty Cat Unavailable Unavailable Primary Care Provider Unavailabl e Unavailable Primary Care Provider UnavailMajor Monteiro MD Primary Care Provider PHYSICIAN, NONE Attending Unavailable PHYSICIAN, NONE Primary Care Unavailable PHYSICIAN, NONE Attending Unavailable PHYSICIAN, NONE Primary Care Unavailable KASLIWAL, ISHA K Attending Unavailable KASLIWAL, ISHA K Referring Unavailable KASLIWAL, ISHA K Attending Unavailable NADERERMAJOR Primary Care Unavailabl e KASLIWAL, ISHA K Referring Unavailable NADERER, MAJOR AVERY Primary Care Unavailabl e KASLIWAL, ISHA K Attending Unavailable NADEREMAJOR Baldwin Primary Care Unavailabl e KASLIWAL, ISHA K Referring Unavailable NADERERMAJOR Primary Care Unavailabl e KASLIWAL, ISHA K Admitting Unavailable KASLIWAL, ISHA K Attending Unavailable NADMAJOR BERNARDO Primary Care Unavailabl e KASLIWAL, ISHA K Referring Unavailable MAJOR STEVENS Primary Care Unavailabl e ALMADHYANI, LAMA Referring Unavailable MAJOR STEVENS Primary Care Unavaildona e Major Stevens MD Primary Care Provider MAJOR STEVENS Attending Unavailable MAJOR STEVENS Attending Unavailable GRACIETONIVETTE Attending Unavailable KASLIWAL, ISHA Referring Unavailable BRINKBRITNEY Attending Unavailable KASLIWAL, ISHA Referring Unavailable BRINKBRITNEY Attending Unavailable KASLIWAL, ISHA Referring Unavailable BLACKSTON, IVETTE T Attending Unavailable KASLIWAL, ISHA Referring Unavailable NADERERMAJOR Attending Unavailable BRINK, BRITNEY Attending Unavailable KASLIWAL, ISHA Referring Unavailable BLACKSTON, IVETTE T Attending Unavailable KASLIWAL, ISHA Referring Unavailable BRINK, BRITNEY Attending Unavailable KASLIWAL, ISHA Referring Unavailable BRINK, BRITNEY Attending Unavailable KASLIWAL, ISHA Referring Unavailable BLACKSTON, IVETTE T Attending Unavailable KASLIWAL, ISHA Referring Unavailable NADEREMAJOR Baldwin Attending Unavailable NADMAJOR BERNARDO Attending Unavailable Medications Current Medications Medication Drug [...] 0 06/06/2023 Discontinued (Stop Taking at Discharge) atorvastatin 40 mg oral tablet (3 sources) HMG-CoA Reductase Inhibitor Start: 10-17-2023 take 1 tablet by mouth at bedtime atorvastatin (Lipitor) 40 MG tablet Indications: Type 2 diabetes mellitus with hyperglycemia, without long-term current use of insulin ([facility]) TAKE 1 TABLET(40 MG) BY MOUTH AT BEDTIME 90 tablet 3 10/17/2023 Active benzocaine 15 mg / menthol 3.6 mg oral lozenge (1 source) Standardized Chemical Allergen Start: 06-01-2023 1 lozenge, Mouth/Throat, Every 2 hour PRN, sore throat, Starting on Sun06/01/23 at 1932, Phase II/On Unit bisacodyl 10 mg rectal suppository (1 source) Stimulant Laxative Start: 06-04-2023 bisacodyl (Dulcolax) suppository 10 mg chlorhexidine gluconate 40 mg/ml [...] Active docusate sodium 50 mg / sennosides, long-term 8.6 mg oral tablet (2 sources) Start: 06-01-2023 End: 06-13-2023 take 2 tablets by mouth twice daily sennosides-docusate sodium (Marycruz-Colace) 8.6-50 mg tablet Indications: Constipation due to pain medication Take 2 tablets by mouth 2 times a day for 7 days. Take while taking pain medication oxycodone to prevent constipation 28 tablet 0 06/06/2023 06/13/2023 Active empagliflozin 25 mg oral tablet (10 sources) Sodium-Glucose Cotransporter 2 Inhibitor Start: 07-05-2023 take 1 tablet by mouth in the morning empagliflozin (Jardiance) 25 MG Indications: Type 2 diabetes mellitus with hyperglycemia, without long-term current use of insulin ([facility]) TAKE 1 TABLET(25 MG) BY MOUTH IN THE MORNING 90 tablet 3 07/05/2023 Active folic acid 1 mg oral tablet (10 sources) take 1 tablet by mouth in the morning folic acid (Folvite) 1 MG tablet Take 1 mg by mouth in the morning. Active gabapentin 300 mg oral capsule (15 sources) Anti-epileptic Agent Start: 03-28-2023 take 1 capsule by mouth every twenty-four hours Gabapentin 300 MG 1 capsule Orally Once a day for 30 days Mar, Active Start: 11-12-2018 End: 05-31-2023 take 1 tablet by mouth three times daily Gabapentin Active 1 TAB PO Three times daily November 11, 2018 11:00pm glipiZIDE 10 mg oral tablet (19 sources) Sulfonylurea Start: 05-09-2023 take 1 tablet by mouth twice daily glipiZIDE (Glucotrol) 10 MG tablet Indications: Type 2 diabetes mellitus with hyperglycemia, without long-term current use of insulin ([facility]) TAKE 1 TABLET BY MOUTH TWICE DAILY 180 tablet 3 05/09/2023 Active Start: 11-12-2018 take 1 tablet by gina th once daily Glipizide Active 1 TAB PO Daily November 11, 2018 11:00pm glucagon (rdna) 1 mg injection (2 sources) [...] on 06/02/23 at 0000, Phase II/On Unit ibuprofen 800 [...] dose on 06/02/23 at 0800, Phase II/On Unit Insulin Lispro [...] 400 mg/dL leflunomide 20 mg oral tablet (20 sources) Antirheumatic Agent Start: 06-15-2023 take 1 [...] directly over any surgical incisions or wounds. losartan potassium 25 mg oral tablet (3 sources) Angiotensin 2 Receptor Jewel Start: 10-17-2023 take 1 tablet by mouth once daily losartan (Cozaar) 25 MG tablet Indications: Essential hypertension (CMS/HCC) TAKE 1 TABLET(25 MG) BY MOUTH DAILY 90 tablet 3 10/17/2023 Active metFORMIN hydrochloride 1000 mg oral tablet (19 sources) Biguanide Start: 05-09-2023 take 1 tablet by mouth twice daily metFORMIN (Glucophage) 1000 MG tablet Indications: Essential hypertension (CMS/HCC) TAKE 1 TABLET BY MOUTH TWICE DAILY 180 tablet 3 05/09/2023 Active Start: 11-12-2018 take 1 tablet by gina th once daily Metformin Active 1 TAB PO Daily November 11, 2018 11:00pm methotrexate 2.5 mg oral tablet (20 sources) Folate Analog Metabolic Inhibitor Start: 06-15-2023 [...] 3 tablets by mouth every week methotrexate 2.5 MG tablet Take 7.5 mg by mouth 1 (one) time per week. Follow directions carefully, and ask to explain any part you do not understand. Take exactly as directed. 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 immediately Start: 06-01-2023 [...] 06-01-2023 End: 06-01-2023 oxygen (O2) therapy pioglitazone 45 mg oral tablet (19 sources) Peroxisome Proliferator Receptor alpha Agonist, Peroxisome Proliferator Receptor gamma Agonist, Thiazolidinedione Start: 07-05-2023 take 1 tablet by mouth in the morning pioglitazone (Actos) 45 MG tablet Indications: Type 2 diabetes mellitus with hyperglycemia, without long-term current use of insulin (CMS/HCC) TAKE 1 TABLET(45 MG) BY MOUTH IN THE MORNING 90 tablet 3 07/05/2023 Active Start: 11-12-2018 take 1 tablet by gina th once daily Pioglitazone Active 1 TAB PO Daily November 11, 2018 11:00pm polyethylene glycol 3350 [id number] mg powder for oral solution (2 sources) [...] to saline lock when taking oral fluids. triamcinolone acetonide 5 mg/ml topical cream (10 sources) Corticosteroid Start: 04-16-2023 triamcinolone (Kenalog) 0.5 % cream Indications: Flexural psoriasis (CMS/HCC) Apply topically 3 (three) times a day 60 g 3 04/16/2023 Active Start: 12-02-2019 Kenalog -40 mg Nov, 40 mg Vitamin D3 (7 sources) Vitamin D3 Activ [...] 06-01-2023 HYDROmorphone (Dilaudid) injection 0.5 mg hydromorphone DIGITIZER OPERATOR 0.5 mg/mL in NS opioid naive (1 [...] O rally Three times a day Not-Taking/PRN Problems Active Problems Problem Classification Problem Date Documented Da te Episodic/Chronic Diabetes mellitus with complications (20 sources) Type 2 diabetes mellitus with hyperglycemia; 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: [Diabetic - poor control] Onset: 09-15-2021 Chronic Diabetes mellitus without complication (7 sources) Type 2 diabetes mellitus; 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: [Type 2 diabetes mellitus without complications] Chronic Essential hypertension (18 sources) Essential hypertension; 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: [Essential (primary) hypertension] [...] 04-24-2023 Chronic Other aftercare (1 source) Other [place] [facility] (current) drug therapy; 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: [OTH [facility] CURRENT DRUG THERAPY] Onset: 07-22-2022 Episodic Other aftercare (9 sources) Long-term current use of drug therapy; 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: [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] Onset: 07-22-2022 04-30-2023 Episodic Other aftercare (1 source) Surgical follow-up; [...] 04-30-2023 Chronic Other inflammatory condition of skin (9 sources) Flexural psoriasis; 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] Onset: [...] 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: [Lipoprotein deficiency] Onset: 04-30-2023 04-30-2023 Chronic Other nutritional; endocrine; and metabolic disorders (3 sources) Body mass index 30+ - obesity; 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: [Obesity, unspecified] Onset: 10-17-2023 10-17-2023 Chronic Other screening for suspected conditions (not mental disorders or infectious disease) (4 sources) Encounter for screening for malignant neoplasm of prostate; 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: [Patient encounter status] Onset: 09-15-2021 10-17-2023 Episodic Residual codes; unclassified (2 sources) Patient encounter [...] 09-15-2021 Resolved: 04-30-2023 04-30-2023 Chronic Other aftercare (2 sources) Encounter for follow-up [...] in right hip] Onset: 10-16-2022 04-30-2023 Episodic Residual codes; unclassified (7 sources) H/O Spinal surgery; 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: [Other specified postprocedural states] Onset: 04-24-2023 04-30-2023 Episodic Residual codes; unclassified (2 sources) Other specified postprocedural states; 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: [Other specified postprocedural states] Onset: 07-10-2023 Episodic Residual codes; unclassified (2 sources) Encounter for procedure for purposes other than remedying health state, unspecified; 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: [Encounter for procedure for purposes other than remedying health state, unspecified] Onset: 05-17-2023 Episodic Spondylosis; intervertebral disc disorders; other back [...] assesment of alignment. COMPARISON: 07/10/2023 ACCESSION NUMBER(S): [id number] ORDERING CLINICIAN: ISHA VALENTINO FINDINGS: There is [...] is intact without perihardware fractures or lucencies. Fazc-ie-gacjzqxk spondylosis noted at T12-L1 and L1-2. Chronic appearing compression deformity is noted of T12 vertebral body with mild anterior height loss. There is positive sagittal balance. No significant coronal balance. IMPRESSION: Postsurgical changes as described above without hardware complication. Mild S shaped thoracolumbar scoliosis. Positive sagittal balance MACRO: None. Signed by: Carmenza Garcia 08/16/2023 5:16 PM Dictation workstation: [id number] [facility] Comment on above: Order Comment: Pleas e [...] INDICATION: Signs/Symptoms:post op. COMPARISON: 04/24/2023 ACCESSION NUMBER(S): [id number] ORDERING CLINICIAN: ISHA VALENTINO FINDINGS: Two views [...] Austen Bass 07/11/2023 3:27 PM Dictation workstation: [id number] [facility] Comment on above: Order Comment: Pleas e [...] [Ratio] 13.5 % 11.5 - 14.5 % [facility] Hematocrit (Bld) [Volume fraction] 33.1 % Low 41.0 - 52.0 % [facility] Hemoglobin (Bld) [Mass/Vol] 11.0 g/dL Low 13.5 - 17.5 g/dL [facility] Interpretation and review of laboratory results Abnormal [facility] MCH (RBC) [Entitic mass] 29.3 pg 26.0 - 34.0 pg [facility] MCHC (RBC) [Mass/Vol] 33.2 g/dL 32.0 - 36.0 g/dL [facility] MCV (RBC) [Entitic vol] 88 fL 80 - 100 fL [facility] Nucleated RBC/100 WBC (Bld) [Ratio] 0.0 % [facility] Platelets (Bld) [#/Vol] 323 10*3/uL [facility] RBC (Bld) [#/Vol] 3.75 10*6/uL Low [facility] WBC (Bld) [#/Vol] 6.3 10*3/uL [facility] Erythrocyte distribution width (RBC) [Ratio] 13.5 % Normal 11.5-14.[address] [facility] Comment on above: Performed By: #### 5 2969-3 #### PACHECO Ferraro ([id number]) [facility] ([facility]) [address] [place] [address] 40017 Hematocrit (Bld) [Volume fraction] 33.1 % Low 41.0-52.[address] [facility] Comment on above: Performed By: #### 5 2969-3 #### PACHECO Ferraro ([id number]) [facility] ([facility]) [address] [place] [address] 50817 Hemoglobin (Bld) [Mass/Vol] 11.0 g/dL Low 13.5-17.[address] [facility] Comment on above: Performed By: #### 5 2969-3 #### PACHECO Ferraro ([id number]) [facility] ([facility]) [id number] [place] [address] 74918 MCH (RBC) [Entitic mass] 29.3 pg Normal 26.0-34.[address] [facility] Comment on above: Performed By: #### 5 2969-3 #### PACHECO Ferraro ([id number]) [facility] ([facility]) [id number] [place] [address] 96220 MCHC (RBC) [Mass/Vol] 33.2 g/dL Normal 32.0-36.0 [facility] Comment on above: Performed By: #### 5 2969-3 #### PACHECO Ferraro ([id number]) [facility] ([facility]) [address] [place] [address] 35346 MCV (RBC) [Entitic vol] 88 fL Normal 80-[address] [facility] Comment on above: Performed By: #### 5 2969-3 #### PACHECO Ferraro ([id number]) [facility] ([facility]) [address] [place] [address] 62474 Nucleated RBC/100 WBC (Bld) [Ratio] 0.0 /100 WBCs Normal 0.0-0.[address] [facility] Comment on above: Performed By: #### 5 2969-3 #### PACHECO Ferraro ([id number]) [facility] ([facility]) [address] [place] [address] 27001 Platelets (Bld) [#/Vol] 323 x10*3/uL Normal 150-[address] [facility] Comment on above: Performed By: #### 5 2969-3 #### PACHECO Ferraro ([id number]) [facility] ([facility]) [address] [place] [address] 48380 RBC (Bld) [#/Vol] 3.75 x10*6/uL Low 4.50-5.90 [facility] Comment on above: Performed By: #### 5 2969-3 #### PACHECO Ferraro ([id number]) [facility] ([facility]) [address] [place] [address] 24783 WBC (Bld) [#/Vol] 6.3 x10*3/uL Normal 4.4-11.3 [facility] Comment on above: Performed By: #### 5 2969-3 #### PACHECO Ferraro ([id number]) [facility] ([facility]) [address] [place] [address] 07258 Glucose Test strip manual (B ld) [Mass/Vol]on 06-06-2023 Glucose [Mass/Vol] 207 mg/dL High 74 - 99 mg/dL [facility] Interpretation and review of laboratory results Abnormal [facility] Glucose [Mass/Vol] 207 mg/dL High 74-99 [facility] Comment on above: Performed By: #### 5 2969-3 #### PACHECO Ferraro ([id number]) [facility] ([facility]) [id number] [place] [address] 90193 Glucose [Mass/Vol] 159 mg/dL High 74 - 99 mg/dL [facility] Interpretation and review of laboratory results Abnormal [facility] Glucose [Mass/Vol] 159 mg/dL High 74-99 [facility] Comment on above: Performed By: #### 3 4532-2 #### PACHECO Ferraro ([id number]) [facility] ([facility]) [address] [place] [address] Renal function 2000 panelon 06-06-2023 Albumin BCP dye [Mass/Vol] 3.6 g/dL 3.4 - 5.0 g/dL [facility] Anion gap [Moles/Vol] 13 mmol/L 10 - 20 mmol/L [facility] Calcium [Mass/Vol] 9.3 mg/dL 8.6 - 10. 6 mg/dL [facility] Chloride [Moles/Vol] 100 mmol/L 98 - 107 mmol/L [facility] CO2 [Moles/Vol] 26 mmol/L 21 - 32 mmol/L [facility] Creatinine [Mass/Vol] 0.60 mg/dL 0.50 - 1.30 mg/dL [facility] eGFR - PINF [facility] Comment on above: Calculations of german mated GFR are performed using the 2020 CKD-EPI Study Refit equation without the race variable for the IDMS-Traceable creatinine methods. https://jasn.asnjournals.org/content//ASN.06010 95834 Glucose [Mass/Vol] 236 mg/dL High 74 - 99 mg/dL [facility] Interpretation and review of laboratory results Abnormal [facility] Phosphate [Mass/Vol] 2.4 mg/dL Low 2.5 - 4.9 mg/dL [facility] Comment on above: The performance gregory acteristics of phosphorus testing in heparinized plasma have been validated by the individual laboratory site where testing is performed. Testing on heparinized plasma is not approved by the FDA; however, such approval is not necessary. Potassium [Moles/Vol] 3.3 mmol/L Low 3.5 - 5.3 mmol/L [facility] Sodium [Moles/Vol] 136 mmol/L 136 - 145 mmol/L [facility] Urea nitrogen [Mass/Vol] 10 mg/dL 6 - 23 mg/dL [facility] Albumin BCP dye [Mass/Vol] 3.6 g/dL Normal 3.4-5.[address] [facility] Comment on above: Performed By: #### 5 2969-3 #### PACHECO Ferraro ([id number]) [facility] ([facility]) [id number] [place] [address] 54789 Anion gap [Moles/Vol] 13 mmol/L Normal 10-20 [facility] Comment on above: Performed By: #### 5 2969-3 #### PACHECO Ferraro ([id number]) [facility] ([facility]) [id number] [place] [address] 58536 Calcium [Mass/Vol] 9.3 mg/dL Normal 8.6-10.6 [facility] Comment on above: Performed By: #### 5 2969-3 #### PACHECO Ferraro ([id number]) [facility] ([facility]) [address] [place] [address] 18920 Chloride [Moles/Vol] 100 mmol/L Normal 98-107 [facility] Comment on above: Performed By: #### 5 2969-3 #### PACHECO Ferraro ([id number]) [facility] ([facility]) [address] [place] [address] 09221 CO2 [Moles/Vol] 26 mmol/L Normal 21-32 [facility] Comment on above: Performed By: #### 5 2969-3 #### PACHECO Ferraro ([id number]) [facility] ([facility]) [address] [place] [address] Creatinine [Mass/Vol] 0.60 mg/dL Normal 0.50-1.30 [facility] Comment on above: Performed By: #### 5 2969-3 #### PACHECO Ferraro ([id number]) [facility] ([facility]) [address] [place] [address] 43941 GFR/1.73 sq M.predicted MDRD (S/P/Bld) [Vol rate/Area] mL/min/{1.73_m2} Normal >[address] [facility] Comment on above: Result Comment: Calc ulations of estimated GFR are performed using the 2020 CKD-EPI Study Refit equation without the race variable for the IDMS-Traceable creatinine methods. https://jasn.asnjournals.org/content//ASN.32831 20070 Performed By: #### 5 2969-3 #### PACHECO Ferraro ([id number]) [facility] ([facility]) [address] [place] [address] 88353 Glucose [Mass/Vol] 236 mg/dL High 74-99 [facility] Comment on above: Performed By: #### 5 2969-3 #### PACHECO Ferraro ([id number]) [facility] ([facility]) [address] [place] [address] 51436 Phosphate [Mass/Vol] 2.4 mg/dL Low 2.5-4.9 [facility] Comment on above: Result Comment: The performance characteristics of phosphorus testing in heparinized plasma have been validated by the individual laboratory site where testing is performed. Testing on heparinized plasma is not approved by the FDA; however, such approval is not necessary. Performed By: #### 5 2969-3 #### PACHECO Ferraro ([id number]) [facility] ([facility]) [address] [place] [address] Potassium [Moles/Vol] 3.3 mmol/L Low 3.5-5.3 [facility] Comment on above: Performed By: #### 5 2969-3 #### PACHECO Ferraro ([id number]) [facility] ([facility]) [address] [place] [address] Sodium [Moles/Vol] 136 mmol/L Normal 136-145 [facility] Comment on above: Performed By: #### 5 2969-3 #### PACHECO Ferraro ([id number]) [facility] ([facility]) [address] [place] [address] 88486 Urea nitrogen [Mass/Vol] 10 mg/dL Normal 6-[address] [facility] Comment on above: Performed By: #### 5 2969-3 #### PACHECO Ferraro ([id number]) [facility] ([facility]) [address] [place] [address] 49990 Glucose Test strip manual (B ld) [Mass/Vol]on 06-05-2023 Glucose [Mass/Vol] 226 mg/dL High 74 - 99 mg/dL [facility] Interpretation and review of laboratory results Abnormal [facility] Glucose [Mass/Vol] 226 mg/dL High 74-99 [facility] Comment on above: Performed By: #### 3 4532-2 #### PACHECO Ferraro ([id number]) [facility] ([facility]) [id number] [place] [address]1309 Glucose [Mass/Vol] 160 mg/dL High 74 - 99 mg/dL [facility] Interpretation and review of laboratory results Abnormal [facility] Glucose [Mass/Vol] 160 mg/dL High 74-99 [facility] Comment on above: Performed By: #### 3 4532-2 #### PACHECO Ferraro ([id number]) [facility] ([facility]) [address] [place] [address] Glucose [Mass/Vol] 192 mg/dL High 74 - 99 mg/dL [facility] Interpretation and review of laboratory results Abnormal [facility] Glucose [Mass/Vol] 192 mg/dL High 74-99 [facility] Comment on above: Performed By: #### 3 4532-2 #### PACHECO Ferraro ([id number]) [facility] ([facility]) [address] [place] [address] Glucose [Mass/Vol] 163 mg/dL High 74 - 99 mg/dL [facility] Interpretation and review of laboratory results Abnormal [facility] Glucose [Mass/Vol] 163 mg/dL High 74-99 [facility] Comment on above: Performed By: #### 3 4532-2 #### PACHECO Ferraro ([id number]) [facility] ([facility]) [address] [place] [address] Basic metabolic 2000 panelon 06-04-2023 Anion gap [Moles/Vol] 12 mmol/L 10 - 20 mmol/L [facility] Calcium [Mass/Vol] 8.4 mg/dL Low 8.6 - 10. 6 mg/dL [facility] Chloride [Moles/Vol] 102 mmol/L 98 - 107 mmol/L [facility] CO2 [Moles/Vol] 28 mmol/L 21 - 32 mmol/L [facility] Creatinine [Mass/Vol] 0.56 mg/dL 0.50 - 1.30 mg/dL [facility] eGFR - PINF [facility] Comment on above: Calculations of german mated GFR are performed using the 2020 CKD-EPI Study Refit equation without the race variable for the IDMS-Traceable creatinine methods. https://jasn.asnjournals.org/content//ASN.69928 55867 Glucose [Mass/Vol] 235 mg/dL High 74 - 99 mg/dL [facility] Interpretation and review of laboratory results Abnormal [facility] Potassium [Moles/Vol] 3.4 mmol/L Low 3.5 - 5.3 mmol/L [facility] Sodium [Moles/Vol] 139 mmol/L 136 - 145 mmol/L [facility] Urea nitrogen [Mass/Vol] 14 mg/dL 6 - 23 mg/dL [facility] Anion gap [Moles/Vol] 12 mmol/L Normal 10-20 [facility] Comment on above: Performed By: #### 3 4532-2 #### PACHECO Ferraro ([id number]) [facility] ([facility]) [address] [place] [address] Calcium [Mass/Vol] 8.4 mg/dL Low 8.6-10.6 [facility] Comment on above: Performed By: #### 3 4532-2 #### PACHECO Ferraro ([id number]) [facility] ([facility]) [address] [place] [address] Chloride [Moles/Vol] 102 mmol/L Normal 98-107 [facility] Comment on above: Performed By: #### 3 4532-2 #### PACHECO Ferraro ([id number]) [facility] ([facility]) [address] [place] [address] CO2 [Moles/Vol] 28 mmol/L Normal 21-32 [facility] Comment on above: Performed By: #### 3 4532-2 #### PACHECO Ferraro ([id number]) [facility] ([facility]) [address] [place] [address] Creatinine [Mass/Vol] 0.56 mg/dL Normal 0.50-1.30 [facility] Comment on above: Performed By: #### 3 4532-2 #### PACHECO Ferraro ([id number]) [facility] ([facility]) [address] [place] [address] GFR/1.73 sq M.predicted MDRD (S/P/Bld) [Vol rate/Area] mL/min/{1.73_m2} Normal >[address] [facility] Comment on above: Result Comment: Calc ulations of estimated GFR are performed using the 2020 CKD-EPI Study Refit equation without the race variable for the IDMS-Traceable creatinine methods. https://jasn.asnjournals.org/content//ASN.33650 50997 Performed By: #### 3 4532-2 #### PACHECO Ferraro ([id number]) [facility] ([facility]) [address] [place] [address] Glucose [Mass/Vol] 235 mg/dL High 74-99 [facility] Comment on above: Performed By: #### 3 4532-2 #### PACHECO Ferraro ([id number]) [facility] ([facility]) [address] [place] [address] Potassium [Moles/Vol] 3.4 mmol/L Low 3.5-5.3 [facility] Comment on above: Performed By: #### 3 4532-2 #### PACHECO Ferraro ([id number]) [facility] ([facility]) [address] [place] [address] Sodium [Moles/Vol] 139 mmol/L Normal 136-145 [facility] Comment on above: Performed By: #### 3 4532-2 #### PACHECO Ferraro ([id number]) [facility] ([facility]) [address] [place] [address] Urea nitrogen [Mass/Vol] 14 mg/dL Normal 6-[address] [facility] Comment on above: Performed By: #### 3 4532-2 #### PACHECO Ferraro ([id number]) [facility] ([facility]) [address] [place] [address] CBC panel Auto (Bld)on 06-03 Erythrocyte distribution width (RBC) [Ratio] 13.6 % 11.5 - 14.5 % [facility] Hematocrit (Bld) [Volume fraction] 30.9 % Low 41.0 - 52.0 % [facility] Hemoglobin (Bld) [Mass/Vol] 9.7 g/dL Low 13.5 - 17.5 g/dL [facility] Interpretation and review of laboratory results Abnormal [facility] MCH (RBC) [Entitic mass] 28.1 pg 26.0 - 34.0 pg [facility] MCHC (RBC) [Mass/Vol] 31.4 g/dL Low 32.0 - 36.0 g/dL [facility] MCV (RBC) [Entitic vol] 90 fL 80 - 100 fL [facility] Nucleated RBC/100 WBC (Bld) [Ratio] 0.0 % [facility] Platelets (Bld) [#/Vol] 209 10*3/uL [facility] RBC (Bld) [#/Vol] 3.45 10*6/uL Low [facility] WBC (Bld) [#/Vol] 8.3 10*3/uL [facility] Erythrocyte distribution width (RBC) [Ratio] 13.6 % Normal 11.5-14.[address] [facility] Comment on above: Performed By: #### 3 4532-2 #### PACHECO Ferraro ([id number]) [facility] ([facility]) [address] [place] [address] Hematocrit (Bld) [Volume fraction] 30.9 % Low 41.0-52.[address] [facility] Comment on above: Performed By: #### 3 4531-2 #### PACHECO Ferraro ([id number]) [facility] ([facility]) [address] [place] [address] Hemoglobin (Bld) [Mass/Vol] 9.7 g/dL Low 13.5-17.[address] [facility] Comment on above: Performed By: #### 3 2-2 #### PACHECO Ferraro ([id number]) [facility] ([facility]) [address] [place] [address] MCH (RBC) [Entitic mass] 28.1 pg Normal 26.0-34.[address] [facility] Comment on above: Performed By: #### 3 4532-2 #### PACHECO Ferraro ([id number]) [facility] ([facility]) [address] [place] [address] MCHC (RBC) [Mass/Vol] 31.4 g/dL Low 32.0-36.0 [facility] Comment on above: Performed By: #### 3 4532-2 #### PACHECO Ferraro ([id number]) [facility] ([facility]) [address] [place] [address] MCV (RBC) [Entitic vol] 90 fL Normal 80-[address] [facility] Comment on above: Performed By: #### 3 453-2 #### PACHECO Ferraro ([id number]) [facility] ([facility]) [address] [place] [address] Nucleated RBC/100 WBC (Bld) [Ratio] 0.0 /100 WBCs Normal 0.0-0.[address] [facility] Comment on above: Performed By: #### 3 453-2 #### PACHECO Ferraro ([id number]) [facility] ([facility]) [address] [place] [address] Platelets (Bld) [#/Vol] 209 x10*3/uL Normal 150-[address] [facility] Comment on above: Performed By: #### 3 453-2 #### PACHECO Ferraro ([id number]) [facility] ([facility]) [address] [place] [address] RBC (Bld) [#/Vol] 3.45 x10*6/uL Low 4.50-5.90 [facility] Comment on above: Performed By: #### 3 453-2 #### PACHECO Ferraro ([id number]) [facility] ([facility]) [address] [place] [address] WBC (Bld) [#/Vol] 8.3 x10*3/uL Normal 4.4-11.3 [facility] Comment on above: Performed By: #### 3 4532-2 #### PACHECO Ferraro ([id number]) [facility] ([facility]) [address] [place] [address] Glucose Test strip manual (B ld) [Mass/Vol]on 06-04-2023 Glucose [Mass/Vol] 184 mg/dL High 74 - 99 mg/dL [facility] Interpretation and review of laboratory results Abnormal [facility] Glucose [Mass/Vol] 184 mg/dL High 74-99 [facility] Comment on above: Performed By: #### 3 4532-2 #### PACHECO Ferraro ([id number]) [facility] ([facility]) [address] [place] [address] Glucose [Mass/Vol] 243 mg/dL High 74 - 99 mg/dL [facility] Interpretation and review of laboratory results Abnormal [facility] Glucose [Mass/Vol] 243 mg/dL High 74-99 [facility] Comment on above: Performed By: #### 3 4532-2 #### PACHECO Ferraro ([id number]) [facility] ([facility]) [address] [place] [address] Glucose [Mass/Vol] 233 mg/dL High 74 - 99 mg/dL [facility] Interpretation and review of laboratory results Abnormal [facility] Glucose [Mass/Vol] 233 mg/dL High 74-99 [facility] Comment on above: Performed By: #### 3 4532-2 #### PACHECO Ferraro ([id number]) [facility] ([facility]) [address] [place] [address] Glucose [Mass/Vol] 139 mg/dL High 74 - 99 mg/dL [facility] Interpretation and review of laboratory results Abnormal [facility] Glucose [Mass/Vol] 139 mg/dL High 74-99 [facility] Comment on above: Performed By: #### 2 4321-2 #### PACHECO Ferraro ([id number]) [facility] ([facility]) [address] [place] [address] No Panel Informationon 06-03 Dispense [facility] PRODUCT BLOOD TYPE 9500 [facility] PRODUCT CODE [id number] [facility] Unit ABO O [facility] Unit RH Negative [facility] UNIT VOLUME 350 [facility] XM INTEP COMP [facility] Prepare RBC: 2 Unitson 06-03 Blood Expiration Date June 19, 2023 23:59 EDT [facility] Blood Expiration Date July 02, 2023 23:59 EDT [facility] Unit Number [id number] [facility] Unit Number [id number] [facility] Basic metabolic 2000 panelon 06-03-2023 Anion gap [Moles/Vol] 10 mmol/L 10 - 20 mmol/L [facility] Calcium [Mass/Vol] 8.6 mg/dL 8.6 - 10. 6 mg/dL [facility] Chloride [Moles/Vol] 105 mmol/L 98 - 107 mmol/L [facility] CO2 [Moles/Vol] 27 mmol/L 21 - 32 mmol/L [facility] Creatinine [Mass/Vol] 0.58 mg/dL 0.50 - 1.30 mg/dL [facility] eGFR - PINF [facility] Comment on above: Calculations of german mated GFR are performed using the 2020 CKD-EPI Study Refit equation without the race variable for the IDMS-Traceable creatinine methods. https://jasn.asnjournals.org/content//ASN.64749 56330 Glucose [Mass/Vol] 181 mg/dL High 74 - 99 mg/dL [facility] Interpretation and review of laboratory results Abnormal [facility] Potassium [Moles/Vol] 3.3 mmol/L Low 3.5 - 5.3 mmol/L [facility] Sodium [Moles/Vol] 139 mmol/L 136 - 145 mmol/L [facility] Urea nitrogen [Mass/Vol] 10 mg/dL 6 - 23 mg/dL [facility] Anion gap [Moles/Vol] 10 mmol/L Normal 10-20 [facility] Comment on above: Performed By: #### 2 4321-2 #### PACHECO Ferraro ([id number]) [facility] ([facility]) [address] [place] [address] Calcium [Mass/Vol] 8.6 mg/dL Normal 8.6-10.6 [facility] Comment on above: Performed By: #### 2 4321-2 #### PACHECO Ferraro ([id number]) [facility] ([facility]) [address] [place] [address] Chloride [Moles/Vol] 105 mmol/L Normal 98-107 [facility] Comment on above: Performed By: #### 2 4321-2 #### PACHECO Ferraro ([id number]) [facility] ([facility]) [address] [place] [address] CO2 [Moles/Vol] 27 mmol/L Normal 21-32 [facility] Comment on above: Performed By: #### 2 4321-2 #### PACHECO Ferraro ([id number]) [facility] ([facility]) [address] [place] [address] Creatinine [Mass/Vol] 0.58 mg/dL Normal 0.50-1.30 [facility] Comment on above: Performed By: #### 2 4321-2 #### PACHECO Ferraro ([id number]) [facility] ([facility]) [address] [place] [address] GFR/1.73 sq M.predicted MDRD (S/P/Bld) [Vol rate/Area] mL/min/{1.73_m2} Normal >[address] [facility] Comment on above: Result Comment: Calc ulations of estimated GFR are performed using the 2020 CKD-EPI Study Refit equation without the race variable for the IDMS-Traceable creatinine methods. https://jasn.asnjournals.org/content//ASN.14207 16787 Performed By: #### 2 4321-2 #### PACHECO Ferraro ([id number]) [facility] ([facility]) [address] [place] [address] Glucose [Mass/Vol] 181 mg/dL High 74-99 [facility] Comment on above: Performed By: #### 2 4321-2 #### PACHECO Ferraro ([id number]) [facility] ([facility]) [address] [place] [address] Potassium [Moles/Vol] 3.3 mmol/L Low 3.5-5.3 [facility] Comment on above: Performed By: #### 2 4321-2 #### PACHECO Ferraro ([id number]) [facility] ([facility]) [address] [place] [address] Sodium [Moles/Vol] 139 mmol/L Normal 136-145 [facility] Comment on above: Performed By: #### 2 4321-2 #### PACHECO Ferraro ([id number]) [facility] ([facility]) [address] [place] [address] Urea nitrogen [Mass/Vol] 10 mg/dL Normal 6-[address] [facility] Comment on above: Performed By: #### 2 4321-2 #### PACHECO Ferraro ([id number]) [facility] ([facility]) [address] [place] [address] CBC panel Auto (Bld)on 06-02 Erythrocyte distribution width (RBC) [Ratio] 14.2 % 11.5 - 14.5 % [facility] Hematocrit (Bld) [Volume fraction] 31.3 % Low 41.0 - 52.0 % [facility] Hemoglobin (Bld) [Mass/Vol] 10.1 g/dL Low 13.5 - 17.5 g/dL [facility] Interpretation and review of laboratory results Abnormal [facility] MCH (RBC) [Entitic mass] 29.3 pg 26.0 - 34.0 pg [facility] MCHC (RBC) [Mass/Vol] 32.3 g/dL 32.0 - 36.0 g/dL [facility] MCV (RBC) [Entitic vol] 91 fL 80 - 100 fL [facility] Nucleated RBC/100 WBC (Bld) [Ratio] 0.0 % [facility] Platelets (Bld) [#/Vol] 203 10*3/uL [facility] RBC (Bld) [#/Vol] 3.45 10*6/uL Low [facility] WBC (Bld) [#/Vol] 9.4 10*3/uL [facility] Erythrocyte distribution width (RBC) [Ratio] 14.2 % Normal 11.5-14.[address] [facility] Comment on above: Performed By: #### 2 4321-2 #### PACHECO Ferraro ([id number]) [facility] ([facility]) [address] [place] [address] Hematocrit (Bld) [Volume fraction] 31.3 % Low 41.0-52.[address] [facility] Comment on above: Performed By: #### 2 4321-2 #### PACHECO Ferraro ([id number]) [facility] ([facility]) [address] [place] [address] Hemoglobin (Bld) [Mass/Vol] 10.1 g/dL Low 13.5-17.[address] [facility] Comment on above: Performed By: #### 2 4321-2 #### PACHECO Ferraro ([id number]) [facility] ([facility]) [address] [place] [address] MCH (RBC) [Entitic mass] 29.3 pg Normal 26.0-34.[address] [facility] Comment on above: Performed By: #### 2 4321-2 #### PACHECO Ferraro ([id number]) [facility] ([facility]) [address] [place] [address] MCHC (RBC) [Mass/Vol] 32.3 g/dL Normal 32.0-36.0 [facility] Comment on above: Performed By: #### 2 4321-2 #### PACHECO Ferraro ([id number]) [facility] ([facility]) [address] [place] [address] MCV (RBC) [Entitic vol] 91 fL Normal 80-[address] [facility] Comment on above: Performed By: #### 2 4321-2 #### PACHECO Ferraro ([id number]) [facility] ([facility]) [address] [place] [address] Nucleated RBC/100 WBC (Bld) [Ratio] 0.0 /100 WBCs Normal 0.0-0.[address] [facility] Comment on above: Performed By: #### 2 4321-2 #### PACHECO Ferraro ([id number]) [facility] ([facility]) [address] [place] [address] Platelets (Bld) [#/Vol] 203 x10*3/uL Normal 150-[address] [facility] Comment on above: Performed By: #### 2 4321-2 #### PACHECO Ferraro ([id number]) [facility] ([facility]) [address] [place] [address] RBC (Bld) [#/Vol] 3.45 x10*6/uL Low 4.50-5.90 [facility] Comment on above: Performed By: #### 2 4321-2 #### PACHECO Ferraro (55406) [facility] ([facility]) [address] [place] [address] WBC (Bld) [#/Vol] 9.4 x10*3/uL Normal 4.4-11.3 [facility] Comment on above: Performed By: #### 2 4321-2 #### PACHECO Ferraro ([id number]) [facility] ([facility]) [address] [place] [address] Glucose Test strip manual (B ld) [Mass/Vol]on 06-03-2023 Glucose [Mass/Vol] 207 mg/dL High 74 - 99 mg/dL [facility] Interpretation and review of laboratory results Abnormal [facility] Glucose [Mass/Vol] 207 mg/dL High 74-99 [facility] Comment on above: Performed By: #### 2 4321-2 #### PACHECO Ferraro (59102) [facility] ([facility]) [address] [place] [address] Glucose [Mass/Vol] 224 mg/dL High 74 - 99 mg/dL [facility] Interpretation and review of laboratory results Abnormal [facility] Glucose [Mass/Vol] 224 mg/dL High 74-99 [facility] Comment on above: Performed By: #### 2 4321-2 #### PACHECO Ferraro ([id number]) [facility] ([facility]) [address] [place] [address]86 Glucose [Mass/Vol] 129 mg/dL High 74 - 99 mg/dL [facility] Interpretation and review of laboratory results Abnormal [facility] Glucose [Mass/Vol] 129 mg/dL High 74-99 [facility] Comment on above: Performed By: #### 2 4321-2 #### PACHECO Ferraro ([id number]) [facility] ([facility]) [address] [place] [address]45[address] CBC panel Auto (Bld)on 06-01 Erythrocyte distribution width (RBC) [Ratio] 14.6 % High 11.5 - 14.5 % [facility] Hematocrit (Bld) [Volume fraction] 34.9 % Low 41.0 - 52.0 % [facility] Hemoglobin (Bld) [Mass/Vol] 10.9 g/dL Low 13.5 - 17.5 g/dL [facility] Interpretation and review of laboratory results Abnormal [facility] MCH (RBC) [Entitic mass] 28.7 pg 26.0 - 34.0 pg [facility] MCHC (RBC) [Mass/Vol] 31.2 g/dL Low 32.0 - 36.0 g/dL [facility] MCV (RBC) [Entitic vol] 92 fL 80 - 100 fL [facility] Nucleated RBC/100 WBC (Bld) [Ratio] 0.0 % [facility] Platelets (Bld) [#/Vol] 243 10*3/uL [facility] RBC (Bld) [#/Vol] 3.80 10*6/uL Low [facility] WBC (Bld) [#/Vol] 10.6 10*3/uL [facility] Erythrocyte distribution width (RBC) [Ratio] 14.6 % High 11.5-14.[address] [facility] Comment on above: Performed By: #### 5 8410-2 #### PACHECO Ferraro ([id number]) [facility] ([facility]) [address] [place] [address] 11853 Hematocrit (Bld) [Volume fraction] 34.9 % Low 41.0-52.[address] [facility] Comment on above: Performed By: #### 5 8410-2 #### PACHECO Ferraro ([id number]) [facility] ([facility]) [address] [place] [address]8301 Hemoglobin (Bld) [Mass/Vol] 10.9 g/dL Low 13.5-17.[address] [facility] Comment on above: Performed By: #### 5 8410-2 #### PACHECO Ferraro ([id number]) [facility] ([facility]) [address] [place] [address]48 MCH (RBC) [Entitic mass] 28.7 pg Normal 26.0-34.[address] [facility] Comment on above: Performed By: #### 5 8410-2 #### PACHECO Ferraro ([id number]) [facility] ([facility]) [address] [place] [address] 47154 MCHC (RBC) [Mass/Vol] 31.2 g/dL Low 32.0-36.0 [facility] Comment on above: Performed By: #### 5 8410-2 #### PACHECO Ferraro (05260) [facility] ([facility]) [address] [place] [address] 62348 MCV (RBC) [Entitic vol] 92 fL Normal 80-[address] [facility] Comment on above: Performed By: #### 5 8410-2 #### PACHECO Ferraro ([id number]) [facility] ([facility]) [address] [place] [address] 89991 Nucleated RBC/100 WBC (Bld) [Ratio] 0.0 /100 WBCs Normal 0.0-0.[address] [facility] Comment on above: Performed By: #### 5 8410-2 #### PACHECO Ferraro (55783) [facility] ([facility]) [address] [place] [address] 57922 Platelets (Bld) [#/Vol] 243 x10*3/uL Normal 150-[address] [facility] Comment on above: Performed By: #### 5 8410-2 #### PACHECO Ferraro ([id number]) [facility] ([facility]) [address] [place] [address] 71294 RBC (Bld) [#/Vol] 3.80 x10*6/uL Low 4.50-5.90 [facility] Comment on above: Performed By: #### 5 8410-2 #### PACHECO Ferraro ([id number]) [facility] ([facility]) [address] [place] [address] 94834 WBC (Bld) [#/Vol] 10.6 x10*3/uL Normal 4.4-11.3 [facility] Comment on above: Performed By: #### 5 8410-2 #### PACHECO Ferraro ([id number]) [facility] ([facility]) [address] [place] [address] 26034 Fibrinogenon 06-02-2023 Fibrinogen Coag (PPP) [Mass/Vol] 270 mg/dL 200 - 400 mg/dL [facility] Fibrinogen Coag (PPP) [Mass/Vol] 270 mg/dL Normal 200-[address] [facility] Comment on above: Performed By: #### 2 4321-2 #### PACHECO Ferraro ([id number]) [facility] ([facility]) [address] [place] [address] 79550 Fibrinogen Coag (PPP) [Mass/ Vol]on 06-02-2023 Interpretation and review of laboratory results Normal [facility] Glucose Test strip manual (B ld) [Mass/Vol]on 06-02-2023 Glucose [Mass/Vol] 248 mg/dL High 74 - 99 mg/dL [facility] Interpretation and review of laboratory results Abnormal [facility] Glucose [Mass/Vol] 248 mg/dL High 74-99 [facility] Comment on above: Performed By: #### 2 4321-2 #### PACHECO Ferraro ([id number]) [facility] ([facility]) [address] [place] [address] 25841 Glucose [Mass/Vol] 278 mg/dL High 74 - 99 mg/dL [facility] Interpretation and review of laboratory results Abnormal [facility] Glucose [Mass/Vol] 233 mg/dL High 74 - 99 mg/dL [facility] Interpretation and review of laboratory results Abnormal [facility] Glucose [Mass/Vol] 278 mg/dL High 74-99 [facility] Comment on above: Performed By: #### 2 4321-2 #### PACHECO Ferraro ([id number]) [facility] ([facility]) [address] [place] [address]287 Glucose [Mass/Vol] 233 mg/dL High 74-99 [facility] Comment on above: Performed By: #### 2 4321-2 #### PACHECO Ferraro ([id number]) [facility] ([facility]) [address] [place] [address] 61728 Magnesiumon 06-02-2023 Magnesium [Mass/Vol] 1.74 mg/dL 1.60 - 2.40 mg/dL [facility] Magnesium [Mass/Vol] 1.74 mg/dL Normal 1.60-2.40 [facility] Comment on above: Performed By: #### 5 8410-2 #### PACHECO Ferraro ([id number]) [facility] ([facility]) [address] [place] [address] 59272 Magnesium [Mass/Vol]on 06-01 Interpretation and review of laboratory results Normal [facility] No Panel Informationon 06-01 [facility] Renal function 2000 panelon 06-02-2023 Albumin BCP dye [Mass/Vol] 3.8 g/dL 3.4 - 5.0 g/dL [facility] Anion gap [Moles/Vol] 11 mmol/L 10 - 20 mmol/L [facility] Calcium [Mass/Vol] 8.7 mg/dL 8.6 - 10. 6 mg/dL [facility] Chloride [Moles/Vol] 102 mmol/L 98 - 107 mmol/L [facility] CO2 [Moles/Vol] 26 mmol/L 21 - 32 mmol/L [facility] Creatinine [Mass/Vol] 0.71 mg/dL 0.50 - 1.30 mg/dL [facility] eGFR - PINF [facility] Comment on above: Calculations of german mated GFR are performed using the 2020 CKD-EPI Study Refit equation without the race variable for the IDMS-Traceable creatinine methods. https://jasn.asnjournals.org/content/early//ASN.24322 70023 Glucose [Mass/Vol] 163 mg/dL High 74 - 99 mg/dL [facility] Interpretation and review of laboratory results Abnormal [facility] Phosphate [Mass/Vol] 2.1 mg/dL Low 2.5 - 4.9 mg/dL [facility] Comment on above: The performance gregory acteristics of phosphorus testing in heparinized plasma have been validated by the individual laboratory site where testing is performed. Testing on heparinized plasma is not approved by the FDA; however, such approval is not necessary. Potassium [Moles/Vol] 3.3 mmol/L Low 3.5 - 5.3 mmol/L [facility] Sodium [Moles/Vol] 136 mmol/L 136 - 145 mmol/L [facility] Urea nitrogen [Mass/Vol] 8 mg/dL 6 - 23 mg/dL [facility] Albumin BCP dye [Mass/Vol] 3.8 g/dL Normal 3.4-5.[address] [facility] Comment on above: Performed By: #### 5 8410-2 #### PACHECO Ferraro ([id number]) [facility] ([facility]) [address] [place] [address] Anion gap [Moles/Vol] 11 mmol/L Normal 10-20 [facility] Comment on above: Performed By: #### 5 8410-2 #### PACHECO Ferraro ([id number]) [facility] ([facility]) [address] [place] [address] Calcium [Mass/Vol] 8.7 mg/dL Normal 8.6-10.6 [facility] Comment on above: Performed By: #### 5 8410-2 #### PACHECO VILLARREAL L ([id number]) [facility] ([facility]) [address] [place] [address] Chloride [Moles/Vol] 102 mmol/L Normal 98-107 [facility] Comment on above: Performed By: #### 5 8410-2 #### PACHECO VILLARREAL L ([id number]) [facility] ([facility]) [address] [place] [address] CO2 [Moles/Vol] 26 mmol/L Normal 21-32 [facility] Comment on above: Performed By: #### 5 8410-2 #### PACHECO Ferraro ([id number]) [facility] ([facility]) [address] [place] [address] Creatinine [Mass/Vol] 0.71 mg/dL Normal 0.50-1.30 [facility] Comment on above: Performed By: #### 5 8410-2 #### PACHECO VILLARREAL L ([id number]) [facility] ([facility]) [address] [place] [address] GFR/1.73 sq M.predicted MDRD (S/P/Bld) [Vol rate/Area] mL/min/{1.73_m2} Normal >[address] [facility] Comment on above: Result Comment: Calc ulations of estimated GFR are performed using the 2020 CKD-EPI Study Refit equation without the race variable for the IDMS-Traceable creatinine methods. https://jasn.asnjournals.org/content/early//ASN.19274 46010 Performed By: #### 5 8410-2 #### PACHECO Ferraro ([id number]) [facility] ([facility]) [address] [place] [address] Glucose [Mass/Vol] 163 mg/dL High 74-99 [facility] Comment on above: Performed By: #### 5 8410-2 #### PACHECO Ferraro ([id number]) [facility] ([facility]) [address] [place] [address]99 Phosphate [Mass/Vol] 2.1 mg/dL Low 2.5-4.9 [facility] Comment on above: Result Comment: The performance characteristics of phosphorus testing in heparinized plasma have been validated by the individual laboratory site where testing is performed. Testing on heparinized plasma is not approved by the FDA; however, such approval is not necessary. Performed By: #### 5 8410-2 #### PACHECO Ferraro ([id number]) [facility] ([facility]) [address] [place] [address]92 Potassium [Moles/Vol] 3.3 mmol/L Low 3.5-5.3 [facility] Comment on above: Performed By: #### 5 8410-2 #### PACHECO Ferraro ([id number]) [facility] ([facility]) [address] [place] [address]59 Sodium [Moles/Vol] 136 mmol/L Normal 136-145 [facility] Comment on above: Performed By: #### 5 8410-2 #### PACHECO Ferraro ([id number]) [facility] ([facility]) [address] [place] [address] 10833 Urea nitrogen [Mass/Vol] 8 mg/dL Normal 6-[address] [facility] Comment on above: Performed By: #### 5 8410-2 #### PACHECO Ferraro ([id number]) [facility] ([facility]) [address] [place] [address] 75527 CBC panel Auto (Bld)on 05-31 Erythrocyte distribution width (RBC) [Ratio] 14.0 % 11.5 - 14.5 % [facility] Hematocrit (Bld) [Volume fraction] 31.1 % Low 41.0 - 52.0 % [facility] Hemoglobin (Bld) [Mass/Vol] 10.5 g/dL Low 13.5 - 17.5 g/dL [facility] Interpretation and review of laboratory results Abnormal [facility] MCH (RBC) [Entitic mass] 29.0 pg 26.0 - 34.0 pg [facility] MCHC (RBC) [Mass/Vol] 33.8 g/dL 32.0 - 36.0 g/dL [facility] MCV (RBC) [Entitic vol] 86 fL 80 - 100 fL [facility] Nucleated RBC/100 WBC (Bld) [Ratio] 0.0 % [facility] Platelets (Bld) [#/Vol] 233 10*3/uL [facility] RBC (Bld) [#/Vol] 3.62 10*6/uL Low [facility] WBC (Bld) [#/Vol] 9.7 10*3/uL [facility] Erythrocyte distribution width (RBC) [Ratio] 14.0 % Normal 11.5-14.[address] [facility] Comment on above: Performed By: #### 5 8410-2 #### PACHECO Ferraro ([id number]) [facility] ([facility]) [address] [place] [address]22 Hematocrit (Bld) [Volume fraction] 31.1 % Low 41.0-52.[address] [facility] Comment on above: Performed By: #### 5 8410-2 #### PACHECO Ferraro ([id number]) [facility] ([facility]) [address] [place] [address] 53689 Hemoglobin (Bld) [Mass/Vol] 10.5 g/dL Low 13.5-17.[address] [facility] Comment on above: Performed By: #### 5 8410-2 #### PACHECO Ferraro ([id number]) [facility] ([facility]) [address] [place] [address] MCH (RBC) [Entitic mass] 29.0 pg Normal 26.0-34.[address] [facility] Comment on above: Performed By: #### 5 8410-2 #### PACHECO Ferraro ([id number]) [facility] ([facility]) [address] [place] [address] MCHC (RBC) [Mass/Vol] 33.8 g/dL Normal 32.0-36.0 [facility] Comment on above: Performed By: #### 5 8410-2 #### PACHECO Ferraro ([id number]) [facility] ([facility]) [address] [place] [address] 15847 MCV (RBC) [Entitic vol] 86 fL Normal 80-[address] [facility] Comment on above: Performed By: #### 5 8410-2 #### PACHECO Ferraro ([id number]) [facility] ([facility]) [address] [place] [address] 44348 Nucleated RBC/100 WBC (Bld) [Ratio] 0.0 /100 WBCs Normal 0.0-0.[address] [facility] Comment on above: Performed By: #### 5 8410-2 #### PACHECO Ferraro ([id number]) [facility] ([facility]) [address] [place] [address] 39248 Platelets (Bld) [#/Vol] 233 x10*3/uL Normal 150-[address] [facility] Comment on above: Performed By: #### 5 8410-2 #### PACHECO Ferraro ([id number]) [facility] ([facility]) [address] [place] [address] 02869 RBC (Bld) [#/Vol] 3.62 x10*6/uL Low 4.50-5.90 [facility] Comment on above: Performed By: #### 5 8410-2 #### PACHECO Ferraro ([id number]) [facility] ([facility]) [address] [place] [address] 84134 WBC (Bld) [#/Vol] 9.7 x10*3/uL Normal 4.4-11.3 [facility] Comment on above: Performed By: #### 5 8410-2 #### PACHECO Ferraro ([id number]) [facility] ([facility]) [address] [place] [address] FL FLUORO IMAGES NO CHARGEon 06-01-2023 FL FLUORO IMAGES NO CHARGE These images are not reportable by radiology and will not be interpreted by Radiologists. Normal [facility] Fibrinogenon 06-01-2023 Fibrinogen Coag (PPP) [Mass/Vol] 195 mg/dL Low 200 - 400 mg/dL [facility] Fibrinogen Coag (PPP) [Mass/Vol] 195 mg/dL Low 200-[address] [facility] Comment on above: Performed By: #### 5 8410-2 #### PACHECO Ferraro ([id number]) [facility] ([facility]) [address] [place] [address] Fibrinogen Coag (PPP) [Mass/ Vol]on 06-01-2023 Interpretation and review of laboratory results Abnormal [facility] Gas and Carbon monoxide and Electrolytes panel (BldA)on 06-01-2023 Anion gap 4 (BldA) [Moles/Vol] 11 [facility] Base excess Calc (Bld) [Moles/Vol] -3.0000 mmol/L Low -2.0 - 3.0 mmol/L [facility] Calcium.ionized (BldA) [Moles/Vol] 1.18 mmol/L 1.10 - 1.33 mmol/L [facility] Chloride (BldA) [Moles/Vol] 106 mmol/L 98 - 107 mmol/L [facility] CO2 (Bld) [Partial pressure] 38 mm[Hg] [facility] Glucose [Mass/Vol] 245 mg/dL High 74 - 99 mg/dL [facility] HCO3 (Bld) [Moles/Vol] 22.0 mmol/L 22.0 - 26.0 mmol/L [facility] Hematocrit Est (Bld) [Volume fraction] 32.0 % Low 41.0 - 52.0 % [facility] Hemoglobin (Bld) [Mass/Vol] 10.5 g/dL Low 13.5 - 17.5 g/dL [facility] Inhaled oxygen concentration 50 % [facility] Interpretation and review of laboratory results Abnormal [facility] Lactate (BldA) [Moles/Vol] 2.0 mmol/L 0.4 - 2.0 mmol/L [facility] Oxygen (Bld) [Partial pressure] 202 mm[Hg] High [facility] Oxyhemoglobin (BldA) [Mass fraction] 97.7 % 94.0 - 98.0 % [facility] pH (Bld) 7.37 [pH] Low 7.38 - 7.42 pH [facility] Potassium (BldA) [Moles/Vol] 3.1 mmol/L Low 3.5 - 5.3 mmol/L [facility] Sodium (BldA) [Moles/Vol] 136 mmol/L 136 - 145 mmol/L [facility] Anion gap 4 (BldA) [Moles/Vol] 11 mmo/L Normal 10-[address] [facility] Comment on above: Performed By: #### 5 8410-2 #### PACHECO Ferraro ([id number]) [facility] ([facility]) [address] [place] [address]298 Base excess Calc (Bld) [Moles/Vol] -3.0000 mmol/L Low -2.0-3.[address] [facility] Comment on above: Performed By: #### 5 8410-2 #### PACHECO Ferraro ([id number]) [facility] ([facility]) [address] [place] [address] 38636 Calcium.ionized (BldA) [Moles/Vol] 1.18 mmol/L Normal 1.10-1.[address] [facility] Comment on above: Performed By: #### 5 8410-2 #### PACHECO Ferraro ([id number]) [facility] ([facility]) [address] [place] [address] 64284 Chloride (BldA) [Moles/Vol] 106 mmol/L Normal 98-[address] [facility] Comment on above: Performed By: #### 5 8410-2 #### PACHECO Ferraro ([id number]) [facility] ([facility]) [address] [place] [address] 10641 CO2 (Bld) [Partial pressure] 38 mm Hg Normal 38-[address] [facility] Comment on above: Performed By: #### 5 8410-2 #### PACHECO Ferraro ([id number]) [facility] ([facility]) [address] [place] [address] 24351 Glucose [Mass/Vol] 245 mg/dL High 74-99 [facility] Comment on above: Performed By: #### 5 8410-2 #### PACHECO Ferraro ([id number]) [facility] ([facility]) [address] [place] [address] 50174 HCO3 (Bld) [Moles/Vol] 22.0 mmol/L Normal 22.0-26.0 [facility] Comment on above: Performed By: #### 5 8410-2 #### PACHECO Ferraro ([id number]) [facility] ([facility]) [address] [place] [address] 79578 Hematocrit Est (Bld) [Volume fraction] 32.0 % Low 41.0-52.[address] [facility] Comment on above: Performed By: #### 5 8410-2 #### PACHECO Ferraro ([id number]) [facility] ([facility]) [address] [place] [address] 88826 Hemoglobin (Bld) [Mass/Vol] 10.5 g/dL Low 13.5-17.[address] [facility] Comment on above: Performed By: #### 5 8410-2 #### PACHECO Ferraro ([id number]) [facility] ([facility]) [address] [place] [address] 55649 Inhaled oxygen concentration 50 % Normal [facility] Comment on above: Performed By: #### 5 8410-2 #### PACHECO Ferraro ([id number]) [facility] ([facility]) [address] [place] [address] 54220 Lactate (BldA) [Moles/Vol] 2.0 mmol/L Normal 0.4-2.[address] [facility] Comment on above: Performed By: #### 5 8410-2 #### PACHECO Ferraro ([id number]) [facility] ([facility]) [address] [place] [address] 21691 Oxygen (Bld) [Partial pressure] 202 mm Hg High 85-[address] [facility] Comment on above: Performed By: #### 5 8410-2 #### PACHECO Ferraro ([id number]) [facility] ([facility]) [address] [place] [address] 69097 Oxyhemoglobin (BldA) [Mass fraction] 97.7 % Normal 94.0-98.[address] [facility] Comment on above: Performed By: #### 5 8410-2 #### PACHECO Ferraro ([id number]) [facility] ([facility]) [address] [place] [address] 14321 pH (Bld) 7.37 [pH] Low 7.38-7.[address] [facility] Comment on above: Performed By: #### 5 8410-2 #### PACHECO Ferraro ([id number]) [facility] ([facility]) [address] [place] [address] 43394 Potassium (BldA) [Moles/Vol] 3.1 mmol/L Low 3.5-5.[address] [facility] Comment on above: Performed By: #### 5 8410-2 #### PACHECO Ferraro ([id number]) [facility] ([facility]) [address] [place] [address] 14296 Sodium (BldA) [Moles/Vol] 136 mmol/L Normal 136-[address] [facility] Comment on above: Performed By: #### 5 8410-2 #### PACHECO Ferraro ([id number]) [facility] ([facility]) [address] [place] [address] 70483 Anion gap 4 (BldA) [Moles/Vol] 13 [facility] Base excess Calc (Bld) [Moles/Vol] -3.6000 mmol/L Low -2.0 - 3.0 mmol/L [facility] Calcium.ionized (BldA) [Moles/Vol] 1.17 mmol/L 1.10 - 1.33 mmol/L [facility] Chloride (BldA) [Moles/Vol] 106 mmol/L 98 - 107 mmol/L [facility] CO2 (Bld) [Partial pressure] 38 mm[Hg] [facility] Glucose [Mass/Vol] 229 mg/dL High 74 - 99 mg/dL [facility] HCO3 (Bld) [Moles/Vol] 21.5 mmol/L Low 22.0 - 26.0 mmol/L [facility] Hematocrit Est (Bld) [Volume fraction] 32.0 % Low 41.0 - 52.0 % [facility] Hemoglobin (Bld) [Mass/Vol] 10.7 g/dL Low 13.5 - 17.5 g/dL [facility] Inhaled oxygen concentration 50 % [facility] Interpretation and review of laboratory results Abnormal [facility] Lactate (BldA) [Moles/Vol] 1.9 mmol/L 0.4 - 2.0 mmol/L [facility] Oxygen (Bld) [Partial pressure] 197 mm[Hg] High [facility] Oxyhemoglobin (BldA) [Mass fraction] 97.9 % 94.0 - 98.0 % [facility] pH (Bld) 7.36 [pH] Low 7.38 - 7.42 pH [facility] Potassium (BldA) [Moles/Vol] 3.6 mmol/L 3.5 - 5.3 mmol/L [facility] Sodium (BldA) [Moles/Vol] 137 mmol/L 136 - 145 mmol/L [facility] Anion gap 4 (BldA) [Moles/Vol] 13 mmo/L Normal 10-[address] [facility] Comment on above: Performed By: #### 9 3685-6 #### PACHECO Ferraro ([id number]) [facility] ([facility]) [address] [place] [address] Base excess Calc (Bld) [Moles/Vol] -3.6000 mmol/L Low -2.0-3.[address] [facility] Comment on above: Performed By: #### 9 3685-6 #### PACHECO Ferraro ([id number]) [facility] ([facility]) [address] [place] [address] 79863 Calcium.ionized (BldA) [Moles/Vol] 1.17 mmol/L Normal 1.10-1.[address] [facility] Comment on above: Performed By: #### 9 3685-6 #### PACHECO Ferraro ([id number]) [facility] ([facility]) [address] [place] [address] 64481 Chloride (BldA) [Moles/Vol] 106 mmol/L Normal 98-[address] [facility] Comment on above: Performed By: #### 9 3685-6 #### PACHECO Ferraro ([id number]) [facility] ([facility]) [address] [place] [address] 59915 CO2 (Bld) [Partial pressure] 38 mm Hg Normal 38-[address] [facility] Comment on above: Performed By: #### 9 3685-6 #### PACHECO Ferraro ([id number]) [facility] ([facility]) [address] [place] [address] 29105 Glucose [Mass/Vol] 229 mg/dL High 74-99 [facility] Comment on above: Performed By: #### 9 3685-6 #### PACHECO Ferraro ([id number]) [facility] ([facility]) [address] [place] [address] 13150 HCO3 (Bld) [Moles/Vol] 21.5 mmol/L Low 22.0-26.0 [facility] Comment on above: Performed By: #### 9 3685-6 #### PACHECO Ferraro ([id number]) [facility] ([facility]) [address] [place] [address] 46639 Hematocrit Est (Bld) [Volume fraction] 32.0 % Low 41.0-52.[address] [facility] Comment on above: Performed By: #### 9 3685-6 #### PACHECO Ferraro ([id number]) [facility] ([facility]) [address] [place] [address] 19313 Hemoglobin (Bld) [Mass/Vol] 10.7 g/dL Low 13.5-17.[address] [facility] Comment on above: Performed By: #### 9 2505-6 #### PACHEOC Ferraro ([id number]) [facility] ([facility]) [address] [place] [address] 49698 Inhaled oxygen concentration 50 % Normal [facility] Comment on above: Performed By: #### 9 3195-6 #### PACHECO Ferraro ([id number]) [facility] ([facility]) [address] [place] [address] 30017 Lactate (BldA) [Moles/Vol] 1.9 mmol/L Normal 0.4-2.[address] [facility] Comment on above: Performed By: #### 9 4635-6 #### PACHECO Ferraro ([id number]) [facility] ([facility]) [address] [place] [address] 42115 Oxygen (Bld) [Partial pressure] 197 mm Hg High 85-[address] [facility] Comment on above: Performed By: #### 9 3685-6 #### PACHECO Ferraro ([id number]) [facility] ([facility]) [address] [place] [address] 02048 Oxyhemoglobin (BldA) [Mass fraction] 97.9 % Normal 94.0-98.[address] [facility] Comment on above: Performed By: #### 9 3685-6 #### PACHECO Ferraro ([id number]) [facility] ([facility]) [address] [place] [address] 03059 pH (Bld) 7.36 [pH] Low 7.38-7.[address] [facility] Comment on above: Performed By: #### 9 6065-6 #### PACHECO Ferraro ([id number]) [facility] ([facility]) [address] [place] [address] 44346 Potassium (BldA) [Moles/Vol] 3.6 mmol/L Normal 3.5-5.[address] [facility] Comment on above: Performed By: #### 9 3685-6 #### PACHECO Ferraro ([id number]) [facility] ([facility]) [address] [place] [address] Sodium (BldA) [Moles/Vol] 137 mmol/L Normal 136-[address] [facility] Comment on above: Performed By: #### 9 3685-6 #### PACHECO Ferraro ([id number]) [facility] ([facility]) [address] [place] [address] Anion gap 4 (BldA) [Moles/Vol] 10 [facility] Base excess Calc (Bld) [Moles/Vol] -1.3000 mmol/L -2.0 - 3.0 mmol/L [facility] Calcium.ionized (BldA) [Moles/Vol] 1.15 mmol/L 1.10 - 1.33 mmol/L [facility] Chloride (BldA) [Moles/Vol] 106 mmol/L 98 - 107 mmol/L [facility] CO2 (Bld) [Partial pressure] 40 mm[Hg] [facility] Glucose [Mass/Vol] 224 mg/dL High 74 - 99 mg/dL [facility] HCO3 (Bld) [Moles/Vol] 23.7 mmol/L 22.0 - 26.0 mmol/L [facility] Hematocrit Est (Bld) [Volume fraction] 36.0 % Low 41.0 - 52.0 % [facility] Hemoglobin (Bld) [Mass/Vol] 12.0 g/dL Low 13.5 - 17.5 g/dL [facility] Inhaled oxygen concentration 50 % [facility] Interpretation and review of laboratory results Abnormal [facility] Lactate (BldA) [Moles/Vol] 1.4 mmol/L 0.4 - 2.0 mmol/L [facility] Oxygen (Bld) [Partial pressure] 197 mm[Hg] High [facility] Oxyhemoglobin (BldA) [Mass fraction] 98.4 % High 94.0 - 98.0 % [facility] pH (Bld) 7.38 [pH] 7.38 - 7.42 pH [facility] Potassium (BldA) [Moles/Vol] 4.1 mmol/L 3.5 - 5.3 mmol/L [facility] Sodium (BldA) [Moles/Vol] 136 mmol/L 136 - 145 mmol/L [facility] Anion gap 4 (BldA) [Moles/Vol] 10 mmo/L Normal 10-[address] [facility] Comment on above: Performed By: #### 9 3685-6 #### PACHECO Ferraro ([id number]) [facility] ([facility]) [address] [place] [address] 92415 Base excess Calc (Bld) [Moles/Vol] -1.3000 mmol/L Normal -2.0-3.[address] [facility] Comment on above: Performed By: #### 9 3685-6 #### PACHECO Ferraro ([id number]) [facility] ([facility]) [address] [place] [address] 16918 Calcium.ionized (BldA) [Moles/Vol] 1.15 mmol/L Normal 1.10-1.[address] [facility] Comment on above: Performed By: #### 9 3685-6 #### PACHECO Ferraro ([id number]) [facility] ([facility]) [address] [place] [address] 42544 Chloride (BldA) [Moles/Vol] 106 mmol/L Normal 98-[address] [facility] Comment on above: Performed By: #### 9 3685-6 #### PACHECO Ferraro ([id number]) [facility] ([facility]) [address] [place] [address] [id number] CO2 (Bld) [Partial pressure] 40 mm Hg Normal 38-[address] [facility] Comment on above: Performed By: #### 9 3685-6 #### PACHECO Ferraro ([id number]) [facility] ([facility]) [address] [place] [address] 12054 Glucose [Mass/Vol] 224 mg/dL High 74-99 [facility] Comment on above: Performed By: #### 9 3685-6 #### PACHECO Ferraro ([id number]) [facility] ([facility]) [address] [place] [address] 50703 HCO3 (Bld) [Moles/Vol] 23.7 mmol/L Normal 22.0-26.0 [facility] Comment on above: Performed By: #### 9 3685-6 #### PACHECO Ferraro ([id number]) [facility] ([facility]) [address] [place] [address] 10637 Hematocrit Est (Bld) [Volume fraction] 36.0 % Low 41.0-52.[address] [facility] Comment on above: Performed By: #### 9 3685-6 #### PACHECO Ferraro ([id number]) [facility] ([facility]) [address] [place] [address] 92682 Hemoglobin (Bld) [Mass/Vol] 12.0 g/dL Low 13.5-17.[address] [facility] Comment on above: Performed By: #### 9 2545-6 #### PACHECO Ferraro ([id number]) [facility] ([facility]) [address] [place] [address] 30152 Inhaled oxygen concentration 50 % Normal [facility] Comment on above: Performed By: #### 9 3685-6 #### PACHECO Ferraro ([id number]) [facility] ([facility]) [address] [place] [address] 50578 Lactate (BldA) [Moles/Vol] 1.4 mmol/L Normal 0.4-2.[address] [facility] Comment on above: Performed By: #### 9 0875-6 #### PACHECO Ferraro ([id number]) [facility] ([facility]) [address] [place] [address] 13173 Oxygen (Bld) [Partial pressure] 197 mm Hg High 85-[address] [facility] Comment on above: Performed By: #### 9 3685-6 #### PACHECO Ferraro ([id number]) [facility] ([facility]) [address] [place] [address] 99869 Oxyhemoglobin (BldA) [Mass fraction] 98.4 % High 94.0-98.[address] [facility] Comment on above: Performed By: #### 9 3685-6 #### PACHECO Ferraro ([id number]) [facility] ([facility]) [address] [place] [address] 25479 pH (Bld) 7.38 [pH] Normal 7.38-7.[address] [facility] Comment on above: Performed By: #### 9 3685-6 #### PACHECO Ferraro ([id number]) [facility] ([facility]) [address] [place] [address] 26385 Potassium (BldA) [Moles/Vol] 4.1 mmol/L Normal 3.5-5.[address] [facility] Comment on above: Performed By: #### 9 3685-6 #### PACHECO Ferraro ([id number]) [facility] ([facility]) [address] [place] [address] 52556 Sodium (BldA) [Moles/Vol] 136 mmol/L Normal 136-[address] [facility] Comment on above: Performed By: #### 9 3685-6 #### PACHECO Ferraro ([id number]) [facility] ([facility]) [address] [place] [address] 50227 Anion gap 4 (BldA) [Moles/Vol] 11 [facility] Base excess Calc (Bld) [Moles/Vol] -2.3000 mmol/L Low -2.0 - 3.0 mmol/L [facility] Calcium.ionized (BldA) [Moles/Vol] 1.20 mmol/L 1.10 - 1.33 mmol/L [facility] Chloride (BldA) [Moles/Vol] 105 mmol/L 98 - 107 mmol/L [facility] CO2 (Bld) [Partial pressure] 38 mm[Hg] [facility] Glucose [Mass/Vol] 145 mg/dL High 74 - 99 mg/dL [facility] HCO3 (Bld) [Moles/Vol] 22.5 mmol/L 22.0 - 26.0 mmol/L [facility] Hematocrit Est (Bld) [Volume fraction] 37.0 % Low 41.0 - 52.0 % [facility] Hemoglobin (Bld) [Mass/Vol] 12.4 g/dL Low 13.5 - 17.5 g/dL [facility] Inhaled oxygen concentration 50 % [facility] Interpretation and review of laboratory results Abnormal [facility] Lactate (BldA) [Moles/Vol] 1.1 mmol/L 0.4 - 2.0 mmol/L [facility] Oxygen (Bld) [Partial pressure] 209 mm[Hg] High [facility] Oxyhemoglobin (BldA) [Mass fraction] 98.0 % 94.0 - 98.0 % [facility] pH (Bld) 7.38 [pH] 7.38 - 7.42 pH [facility] Potassium (BldA) [Moles/Vol] 2.9 mmol/L Critically low 3.5 - 5.3 mmol/L [facility] Sodium (BldA) [Moles/Vol] 136 mmol/L 136 - 145 mmol/L [facility] Anion gap 4 (BldA) [Moles/Vol] 11 mmo/L Normal 10-[address] [facility] Comment on above: Performed By: #### 9 3685-6 #### PACHECO Ferraro ([id number]) [facility] ([facility]) [address] [place] [address] Base excess Calc (Bld) [Moles/Vol] -2.3000 mmol/L Low -2.0-3.[address] [facility] Comment on above: Performed By: #### 9 3685-6 #### PACHECO Ferraro ([id number]) [facility] ([facility]) [address] [place], [place] [address] Calcium.ionized (BldA) [Moles/Vol] 1.20 mmol/L Normal 1.10-1.[address] [facility] Comment on above: Performed By: #### 9 3685-6 #### PACHECO Ferraro ([id number]) [facility] ([facility]) [address] [place] [address] 93989 Chloride (BldA) [Moles/Vol] 105 mmol/L Normal 98-[address] [facility] Comment on above: Performed By: #### 9 3685-6 #### PACHECO Ferrrao ([id number]) [facility] ([facility]) [address] [place] [address] 22054 CO2 (Bld) [Partial pressure] 38 mm Hg Normal 38-[address] [facility] Comment on above: Performed By: #### 9 3685-6 #### PACHECO Ferraro ([id number]) [facility] ([facility]) [address] [place] [address] 28008 Glucose [Mass/Vol] 145 mg/dL High 74-99 [facility] Comment on above: Performed By: #### 9 0575-6 #### PACHECO Ferraro ([id number]) [facility] ([facility]) [address] [place] [address] 41981 HCO3 (Bld) [Moles/Vol] 22.5 mmol/L Normal 22.0-26.0 [facility] Comment on above: Performed By: #### 9 3685-6 #### PACHECO Ferraro ([id number]) [facility] ([facility]) [address] [place] [address] 11203 Hematocrit Est (Bld) [Volume fraction] 37.0 % Low 41.0-52.[address] [facility] Comment on above: Performed By: #### 9 4905-6 #### PACHECO Ferraro ([id number]) [facility] ([facility]) [address] [place] [address] 00071 Hemoglobin (Bld) [Mass/Vol] 12.4 g/dL Low 13.5-17.[address] [facility] Comment on above: Performed By: #### 9 9935-6 #### PACHECO Ferraro ([id number]) [facility] ([facility]) [address] [place] [address] 72618 Inhaled oxygen concentration 50 % Normal [facility] Comment on above: Performed By: #### 9 3685-6 #### PACHECO Ferraro ([id number]) [facility] ([facility]) [address] [place] [address] 04319 Lactate (BldA) [Moles/Vol] 1.1 mmol/L Normal 0.4-2.[address] [facility] Comment on above: Performed By: #### 9 3685-6 #### PACHECO Ferraro ([id number]) [facility] ([facility]) [address] [place] [address] 41724 Oxygen (Bld) [Partial pressure] 209 mm Hg High 85-[address] [facility] Comment on above: Performed By: #### 9 3685-6 #### PACHECO Ferraro ([id number]) [facility] ([facility]) [address] [place] [address] 05045 Oxyhemoglobin (BldA) [Mass fraction] 98.0 % Normal 94.0-98.[address] [facility] Comment on above: Performed By: #### 9 3685-6 #### PACHECO Ferraro ([id number]) [facility] ([facility]) [address] [place] [address] 33722 pH (Bld) 7.38 [pH] Normal 7.38-7.[address] [facility] Comment on above: Performed By: #### 9 3685-6 #### PACHECO Ferraro ([id number]) [facility] ([facility]) [address] [place] [address] 21838 Potassium (BldA) [Moles/Vol] 2.9 mmol/L Critically low 3.5-5.[address] [facility] Comment on above: Performed By: #### 9 3685-6 #### PACHECO Ferraro ([id number]) [facility] ([facility]) [address] [place] [address] 02308 Sodium (BldA) [Moles/Vol] 136 mmol/L Normal 136-[address] [facility] Comment on above: Performed By: #### 9 3685-6 #### PACHECO Ferraro ([id number]) [facility] ([facility]) [address] [place] [address] 12767 Glucose Test strip manual (B ld) [Mass/Vol]on 06-01-2023 Glucose [Mass/Vol] 178 mg/dL High 74 - 99 mg/dL [facility] Interpretation and review of laboratory results Abnormal [facility] Glucose [Mass/Vol] 178 mg/dL High 74-99 [facility] Comment on above: Performed By: #### 5 8410-2 #### PACHECO Ferraro ([id number]) [facility] ([facility]) [address] [place] [address] 77235 Glucose [Mass/Vol] 99 mg/dL 74 - 99 mg/dL [facility] Interpretation and review of laboratory results Normal [facility] Glucose [Mass/Vol] 99 mg/dL Normal 74-99 [facility] Comment on above: Performed By: #### 2 341-6 #### PACHECO Ferraro ([id number]) [facility] ([facility]) [address] [place] [address] 50994 Magnesiumon 06-01-2023 Magnesium [Mass/Vol] 1.74 mg/dL 1.60 - 2.40 mg/dL [facility] Magnesium [Mass/Vol] 1.74 mg/dL Normal 1.60-2.40 [facility] Comment on above: Performed By: #### 5 8410-2 #### PACHECO Ferraro ([id number]) [facility] ([facility]) [address] [place] [address] 23736 Magnesium [Mass/Vol]on 05-31 Interpretation and review of laboratory results Normal [facility] VERAB/VERIFY ABORHon 024 ABO group Nom (Bld) O Normal [facility] Comment on above: Performed By: #### V ERAB #### PACHECO Ferraro ([id number]) [facility] ([facility]) [address] [place] [address] D Ag Ql (Bld) Negative Normal [facility] Comment on above: Performed By: #### V JUAN CARLOS #### PACHECO Ferraro ([id number]) [facility] ([facility]) [address] [place] [address] Verify ABO/Rh Group Test (VE RAB)on 06-01-2023 ABO group Nom (Bld) [facility] Ql (Bld) Negative [facility] XR tomography Unspecified yaneli dy regionon 06-01-2023 These images are not reportable by radiology and will not be interpreted by Radiologists. IMAGING These images are not reportable by radiology and will not be interpreted by Radiologists. IMAGING No Panel InformationOrdered By: Antione Hong on 05-18-2023 Atrial Rate 73 BPM [facility] Work Phone: [phone] P [place] 2 degrees [facility] Work Phone: [phone] P Offset 186 [facility] Work Phone: [phone] P Onset 141 ms [facility] Work Phone: [phone] NH Interval 144 ms [facility] Work Phone: [phone] Q Onset 213 ms [facility] Work Phone: [phone] QRS Count 12 beats [facility] Work Phone: [phone] QRS Duration 86 ms [facility] Work Phone: [phone] QT Interval 376 ms [facility] Work Phone: [phone] QTC Calculation(Bazett) 414 [facility] Work Phone: [phone] QTC Fredericia 401 [facility] Work Phone: [phone] R [place] -20 degrees [facility] Work Phone: [phone] T [place] 15 degrees [facility] Work Phone: [phone] T Offset 401 ms [facility] Work Phone: Ventricular Rate 73 BPM [facility] Work Phone: [facility] Work Phone: No Panel Informationon 05-18 Normal sinus rhythm Nonspecific T wave abnormality No previous ECGs available Confirmed by Antione Hong ([id number]) on 05/18/2023 4:34:09 PM Antione Thakkar MD - 05/18/2023 Normal sinus rhythm Nonspecific T wave abnormality No previous ECGs available Confirmed by Antione Hong ([id number]) on 05/18/2023 4:34:09 PM [facility] Work Phone: Basic metabolic 2000 panelon 05-17-2023 Anion gap [Moles/Vol] 15 mmol/L Normal 10-20 [facility] Comment on above: Performed By: #### 2 4321-2 #### PACHECO VILLARREAL L ([id number]) [facility] ([facility]) [address] [place] [address] 86578 Calcium [Mass/Vol] 10.1 mg/dL Normal 8.6-10.6 [facility] Comment on above: Performed By: #### 2 4321-2 #### PACHECO MONTANOTZER L ([id number]) [facility] ([facility]) [address] [place] [address] 64163 Chloride [Moles/Vol] 107 mmol/L Normal 98-107 [facility] Comment on above: Performed By: #### 2 4321-2 #### PACHECO LANEMOTZSTEFANIE L ([id number]) [facility] ([facility]) [address] [place] [address] 26385 CO2 [Moles/Vol] 23 mmol/L Normal 21-32 [facility] Comment on above: Performed By: #### 2 4321-2 #### PACHECO VILLARREAL L ([id number]) [facility] ([facility]) [address] [place] [address] 21608 Creatinine [Mass/Vol] 0.73 mg/dL Normal 0.50-1.30 [facility] Comment on above: Performed By: #### 2 4321-2 #### PACHECO Ferraro ([id number]) [facility] ([facility]) [address] [place] [address] 11039 GFR/1.73 sq M.predicted MDRD (S/P/Bld) [Vol rate/Area] mL/min/{1.73_m2} Normal >[address] [facility] Comment on above: Result Comment: Calc ulations of estimated GFR are performed using the 2020 CKD-EPI Study Refit equation without the race variable for the IDMS-Traceable creatinine methods. https://jasn.asnjournals.org/content/early//ASN.69077 52057 Performed By: #### 2 4321-2 #### PACHECO Ferraro ([id number]) [facility] ([facility]) [address] [place] [address] 22126 Glucose [Mass/Vol] 89 mg/dL Normal 74-99 [facility] Comment on above: Performed By: #### 2 4321-2 #### PACHECO Ferraro ([id number]) [facility] ([facility]) [address] [place] [address] 47474 Potassium [Moles/Vol] 3.9 mmol/L Normal 3.5-5.3 [facility] Comment on above: Performed By: #### 2 4321-2 #### PACHECO Ferraro ([id number]) [facility] ([facility]) [address] [place] [address] 16327 Sodium [Moles/Vol] 141 mmol/L Normal 136-145 [facility] Comment on above: Performed By: #### 2 4321-2 #### PACHECO Ferraro ([id number]) [facility] ([facility]) [address] [place] [address] 01603 Urea nitrogen [Mass/Vol] 13 mg/dL Normal 6-[address] [facility] Comment on above: Performed By: #### 2 4321-2 #### PACHECO Ferraro ([id number]) [facility] ([facility]) [address] [place], [place] [address] Blood type and Indirect anti body screen panel (Bld)on 05-17-2023 ABO group Nom (Bld) O Normal [facility] Comment on above: Performed By: #### 3 4532-2 #### PACHECO Ferraro ([id number]) [facility] ([facility]) [address] [place], [place] [address] Blood group antibody screen Ql Negative [facility] Comment on above: Performed By: #### 3 4532-2 #### PACHECO Ferraro ([id number]) [facility] ([facility]) [address] [place], [place] [address] D Ag Ql (Bld) Negative [facility] Comment on above: Result Comment: 2nd ABO test required. Order and Collect VERAB Performed By: #### 3 4532-2 #### PACHECO Ferraro ([id number]) [facility] ([facility]) [address] [place], [place] [address] CBC panel Auto (Bld)on 05-17 Erythrocyte distribution width (RBC) [Ratio] 14.4 % Normal 11.5-14.[address] [facility] Comment on above: Performed By: #### 5 8410-2 #### PACHECO Ferraro ([id number]) [facility] ([facility]) [address] [place], [place] [address] Hematocrit (Bld) [Volume fraction] 42.8 % Normal 41.0-52.[address] [facility] Comment on above: Performed By: #### 5 8410-2 #### PACHECO Ferraro (25511) [facility] ([facility]) [address] [place], [place] [address] Hemoglobin (Bld) [Mass/Vol] 14.3 g/dL Normal 13.5-17.[address] [facility] Comment on above: Performed By: #### 5 8410-2 #### PACHECO Ferraro ([id number]) [facility] ([facility]) [address] [place] [address] MCH (RBC) [Entitic mass] 29.3 pg Normal 26.0-34.[address] [facility] Comment on above: Performed By: #### 5 8410-2 #### PACHECO Ferraro (00781) [facility] ([facility]) [address] [place] [address] 40538 MCHC (RBC) [Mass/Vol] 33.4 g/dL Normal 32.0-36.0 [facility] Comment on above: Performed By: #### 5 8410-2 #### PACHECO Ferraro ([id number]) [facility] ([facility]) [address] [place] [address] 34699 MCV (RBC) [Entitic vol] 88 fL Normal 80-[address] [facility] Comment on above: Performed By: #### 5 8410-2 #### PACHECO Ferraro ([id number]) [facility] ([facility]) [address] [place] [address] 43111 Nucleated RBC/100 WBC (Bld) [Ratio] 0.0 /100 WBCs Normal 0.0-0.[address] [facility] Comment on above: Performed By: #### 5 8410-2 #### PACHECO Ferraro ([id number]) [facility] ([facility]) [address] [place] [address] 10466 Platelets (Bld) [#/Vol] 287 x10*3/uL Normal 150-[address] [facility] Comment on above: Performed By: #### 5 8410-2 #### PACHECO Ferraro ([id number]) [facility] ([facility]) [address] [place] [address] 38280 RBC (Bld) [#/Vol] 4.88 x10*6/uL Normal 4.50-5.90 [facility] Comment on above: Performed By: #### 5 8410-2 #### PACHECO Ferraro ([id number]) [facility] ([facility]) [address] [place] [address] 79255 WBC (Bld) [#/Vol] 6.6 x10*3/uL Normal 4.4-11.3 [facility] Comment on above: Performed By: #### 5 8410-2 #### PACHECO Ferraro ([id number]) [facility] ([facility]) [address] [place] [address] ECG 12-LEADon 05-17-2023 ECG 12-LEAD Ventricular Rate 73 Atrial Rate 73 P-R Interval 144 QRS Duration 86 Q-T Interval 376 QTC Calculation(Bazett) 414 P [place] 2 R [place] -20 T [place] 15 QRS Count 12 Q Onset 213 P Onset 141 P Offset 186 T Offset 401 QTC Fredericia 401 Diagnosis Normal sinus rhythm Nonspecific T wave abnormality No previous ECGs available Confirmed by Antione Hong ([id number]) on 05/18/2023 4:34:09 PM Normal [facility] Staphylococcus aureus.methic illin resistant isolateon 05-17-2023 MRSA isol Org specific cx Ql (Nose) Test: Staphylococcus aureus/MRSA colonization, Culture Specimen Source: Anterior Nares Specimen Type: Swab Specimen Date: 05/17/2023 1:43 PM Result Date: 05/19/2023 8:32 AM Result Status: Final result Abnormal: Yes Resulting Lab: [facility] [address] [place] [address] CULTURE Isolated: Methicillin Susceptible Staphylococcus aureus (MSSA) (Abnormal) Abnormal [facility] Comment on above: Performed By: #### 5 2969-3 #### PACHECO Ferraro ([id number]) [facility] ([facility]) [address] [place] [address] HbA1c (Bld) [Mass fraction]o n 04-24-2023 Average glucose Estimated from glycated hemoglobin (Bld) [Mass/Vol] 148 mg/dL Normal Not Established [facility] Comment on above: Order Comment: Diagn osis of Diabetes-Adults Non-Diabetic: < or = 5.6% Increased risk for developing diabetes: 5.7-6.4% Diagnostic of diabetes: > or = 6.5% Monitoring of Diabetes Age (y)....................... Therapeutic Goal (%) Adults: >18.........................<7.0 Pediatrics: 13-18...................<7.5 Pediatrics: 7-12....................<8.0 Pediatrics: 0-6..................... 7.5-8.5 [employer]. Diabetes Care 33(S1)Mar 2009 Performed By: #### 4 548-4 #### PACHECO Ferraro ([id number]) [facility] ([facility]) [address] [place] [address] Hemoglobin A1c/Hemoglobin.to kacey 04-24-2023 HbA1c (Bld) [Mass fraction] 6.8 % High see below [facility] Comment on above: Order Comment: Diagn osis of Diabetes-Adults Non-Diabetic: < or = 5.6% Increased risk for developing diabetes: 5.7-6.4% Diagnostic of diabetes: > or = 6.5% Monitoring of Diabetes Age (y)....................... Therapeutic Goal (%) Adults: >18.........................<7.0 Pediatrics: 13-18...................<7.5 Pediatrics: 7-12....................<8.0 Pediatrics: 0-6..................... 7.5-8.5 [employer]. Diabetes Care 33(S1), Mar 2009 Performed By: #### 4 548-4 #### PACHECO Ferraro ([id number]) [facility] ([facility]) [address] [place] [address] XR SCOLIOSIS 2 VIEW (NON EOS )on 04-24-2023 XR SCOLIOSIS 2 VIEW (NON EOS) Interpreted By: Austen Bass, STUDY: XR SCOLIOSIS 2 VIEW (NON EOS); ; 04/24/2023 11:15 am INDICATION: Signs/Symptoms:alig nmtony. COMPARISON: MRI dated 12/15/2022 ACCESSION NUMBER(S): [id number] ORDERING CLINICIAN: BARB PUTNAM FINDINGS: Two views [...] Austen Bass 04/30/2023 10:14 AM Dictation workstation: [id number] [facility] MR lumbar spine wo conon MR lumbar spine wo con [facility] [place] [address] [place] [address] MRI Report Signed Patient: Lobito Tomlin MR#: [id number] : 1960 Acct:[id number] Age/Sex: 62 / M ADM Date: 12/15/22 Loc: [facility] Room: Type: [facility] Attending Dr: Sully Barney NP Copies to: Sully Barney NP Ordering Provider: Sully Barney NP Date of Service: 12/15/22 MR/MR lumbar spine wo con: Lumbar radiculopathy [...] Prakash Zavala M.D.12/15/2022 3:12 PM Dictation Location: [facility]--08 Transcribed By: [facility] 12/15/22 151 Dictated By: Prakash Zavala II, MD 12/15/22 1500 Signed By: 12/15/22 151 [facility] XR hip RT min 2V(w/wo pelvis )*on 10-16-2022 XR hip RT min 2V(w/wo pelvis)* [facility] [place] [address] [place] [address] XRay Report Signed Patient: Lobito Tomlin MR#: [id number] : 1960 Acct:[id number] Age/Sex: 62 / M ADM Date: 10/16/22 Loc: XD Room: Type: [facility] Attending Dr: Abel Sandoval MD Copies to: [...] Raulito Abbasi M.D.10/16/2022 2:39 PM Dictation Location: [facility]-01 Transcribed By: [facility] 10/16/22 143 Dictated By: Raulito Abbasi DO 10/16/22 143 Signed By: 10/16/22 143 [facility] XR lumbar spine AP/LAT/FLX/E XTon 10-16-2022 XR lumbar spine AP/LAT/FLX/EXT [facility] [place] [address] [place] [address] XRay Report Signed Patient: Lobito Tomlin MR#: [id number] : 1960 Acct:[id number] Age/Sex: 62 / M ADM Date: 10/16/22 Loc: XD Room: Type: [facility] Attending Dr: Abel Sandoval MD Copies to: [...] L3-S1. Impression dictated by: Roberto West Jr., DAmyOAmy10/16/2022 2:44 PM Dictation Location: [place] [address] Transcribed By: [facility] 10/16/22 1444 Dictated By: Roberto West Jr, DO 10/16/22 1440 Signed By: 10/16/22 1444 [facility] CBC AUTO DIFFon 07-19-2022 BASO # 0.1 103/ul Normal 0.0-0.1 [facility] Comment on above: Performed By: #### C BC #### [facility] [address] [address] [address] Mariann Odom Basophils/100 WBC (Bld) 0.9 % Normal 0.2-2.0 [facility] Comment on above: Performed By: #### C BC #### [facility] [address] [address] [address] Mariann Odom EO # 0.3 103/ul Normal 0.0-0.7 [facility] Comment on above: Performed By: #### C BC #### [facility] [address] [place] [address] Dr. Mariann Odom Eosinophils/100 WBC (Bld) 4.9 % Normal 0.9-7.0 [facility] Comment on above: Performed By: #### C BC #### [facility] [address] [place] [address] Dr. Mariann Odom Erythrocyte distribution width (RBC) [Ratio] 14.8 % Normal 11.0-15.0 [facility] Comment on above: Performed By: #### C BC #### [facility] [address] [place] [address] Dr. Mariann Odom Hematocrit (Bld) [Volume fraction] 41.5 % Critically low 42.0-54.0 [facility] Comment on above: Performed By: #### C BC #### [facility] [address] [place] [address] Dr. Mariann Odom Hemoglobin (Bld) [Mass/Vol] 13.3 g/dL Critically low 14.0-18.0 [facility] Comment on above: Performed By: #### C BC #### [facility] [address] [place] [address] Dr. Mariann Odom IG # 0.02 10e3/ul Normal 0.00-0.03 [facility] Comment on above: Performed By: #### C BC #### [facility] [address] [place] [address] Dr. Mariann Odom IG % 0.4 % Normal 0.0-0.5 [facility] Comment on above: Performed By: #### C BC #### [facility] [address] [place] [address] Dr. Mariann Odom LYMPH # 1.8 103/ul Normal 1.2-3.8 [facility] Comment on above: Performed By: #### C BC #### [facility] [address] [place] [address] Dr. Mariann Odom Lymphocytes/100 WBC (Bld) 33.1 % Normal 20.5-60.0 [facility] Comment on above: Performed By: #### C BC #### [facility] [address] [place] [address] Dr. Mariann Odom MANUAL DIFF REQ NO Normal [facility] Comment on above: Performed By: #### C BC #### [facility] [address] [place] [address] Dr. Mariann Odom MCH (RBC) [Entitic mass] 28.1 pg Normal 25.9-34.0 [facility] Comment on above: Performed By: #### C BC #### [facility] [address] [place] [address] Dr. Mariann Odom MCHC (RBC) [Mass/Vol] 32.0 g/dL Normal 29.9-35.2 [facility] Comment on above: Performed By: #### C BC #### [facility] [address] [place] [address] Dr. Mariann Odom MCV (RBC) [Entitic vol] 87.7 fL Normal 80.0-94.0 [facility] Comment on above: Performed By: #### C BC #### [facility] [address] [place] [address] Dr. Mariann Odom MONO # 0.6 103/ul Normal 0.3-0.8 [facility] Comment on above: Performed By: #### C BC #### [facility] [address] [place] [address] Dr. Mariann Odom Monocytes/100 WBC (Bld) 11.7 % Normal 1.7-12.0 [facility] Comment on above: Performed By: #### C BC #### [facility] [address] [place] [address] Dr. Mariann Odom NEUT # 2.6 103/ul Normal 1.4-6.5 [facility] Comment on above: Performed By: #### C BC #### [facility] [address] [place] [address] Dr. Mariann Odom Neutrophils/100 WBC (Bld) 49.0 % Normal 43.0-75.0 [facility] Comment on above: Performed By: #### C BC #### [facility] [address] [place] [address] Dr. Mariann Odom Platelet mean volume (Bld) [Entitic vol] 11.2 fL Normal 9.5-13.5 [facility] Comment on above: Performed By: #### C BC #### [facility] [address] [place] [address] Dr. Mariann Odom PLT 301 103/ul Normal 150-450 [facility] Comment on above: Performed By: #### C BC #### [facility] [address] [place] [address] Dr. Mariann Odom RBC 4.73 106/ul Normal 4.70-6.10 [facility] Comment on above: Performed By: #### C BC #### [facility] [address] [place] [address] Dr. Mariann Odom WBC 5.3 103/ul Normal 4.0-11.0 [facility] Comment on above: Performed By: #### C BC #### [facility] [address] [place] [address] Dr. Mariann Odom PROF 14(COMP METB)on 023 Albumin [Mass/Vol] 4.0 g/dL Normal 3.4-5.0 [facility] Comment on above: Performed By: #### C MP #### [facility] [address] [place] [address] Dr. Mariann Odom Albumin/Globulin [Mass ratio] 1.0 {ratio} Normal [facility] Comment on above: Performed By: #### C MP #### [facility] [address] [place] [address] Dr. Mariann Odom ALP [Catalytic activity/Vol] 99 U/L Normal 46-116 [facility] Comment on above: Performed By: #### C MP #### [facility] [address] [place] [address] Dr. Mariann Odom ALT [Catalytic activity/Vol] 36 U/L Normal 16-63 [facility] Comment on above: Performed By: #### C MP #### [facility] [address] [place] [address] Dr. Mariann Odom Anion gap [Moles/Vol] 10.6 mmol/L Normal [facility] Comment on above: Performed By: #### C MP #### [facility] [address] [place] [address] Dr. Mariann Odom AST [Catalytic activity/Vol] 21 U/L Normal 15-37 [facility] Comment on above: Performed By: #### C MP #### [facility] [address] [address] [address] Mariann Odom Bilirubin [Mass/Vol] 0.2 mg/dL Normal 0.2-1.0 [facility] Comment on above: Performed By: #### C MP #### [facility] [address] [place] [address] Dr. Mariann Odom Calcium [Mass/Vol] 9.6 mg/dL Normal 8.5-10.1 [facility] Comment on above: Performed By: #### C MP #### [facility] [address] [place] [address] Dr. Mariann Odom Chloride [Moles/Vol] 102 mmol/L Normal 98-107 [facility] Comment on above: Performed By: #### C MP #### [facility] [address] [place] [address] Dr. Mariann Odom CO2 [Moles/Vol] 30.5 mmol/L Normal 21.0-32.0 [facility] Comment on above: Performed By: #### C MP #### [facility] [address] [address] [address] Mariann Odom Creatinine [Mass/Vol] 0.93 mg/dL Normal 0.70-1.30 [facility] Comment on above: Performed By: #### C MP #### [facility] [address] [place] [address] Dr. Mariann Odom EGFR-AF AZERBAIJANI >60 Normal >=60 [facility] Comment on above: Performed By: #### C MP #### [facility] [address] [place] [address] Dr. Mariann Odom EGFR-NON AF AZERBAIJANI >60 Normal >=60 [facility] Comment on above: Performed By: #### C MP #### [facility] [address] [address] [address] Mariann Odom Globulin (S) [Mass/Vol] 3.9 g/dL Normal [facility] Comment on above: Performed By: #### C MP #### [facility] [address] [address] [address] Mariann Odom Glucose [Mass/Vol] 126 mg/dL Critically high 74-106 [facility] Comment on above: Performed By: #### C MP #### [facility] [address] [address] [address] Mariann Odom Potassium [Moles/Vol] 4.1 mmol/L Normal 3.5-5.1 [facility] Comment on above: Performed By: #### C MP #### [facility] [address] [address] [address] Mariann Odom Protein [Mass/Vol] 7.9 g/dL Normal 6.4-8.2 [facility] Comment on above: Performed By: #### C MP #### [facility] [address] [address] [address] Mariann Odom Sodium [Moles/Vol] 139 mmol/L Normal 136-145 [facility] Comment on above: Performed By: #### C MP #### [facility] [address] [address] [address] Mariann Odom Urea nitrogen [Mass/Vol] 16.0 mg/dL Normal 7.0-18.0 [facility] Comment on above: Performed By: #### C MP #### [facility] [address] [address] [address] Mariann Odom Urea nitrogen/Creatinine [Mass ratio] 17.2 mg/mg Normal [facility] Comment on above: Performed By: #### C MP #### [facility] [address] [address] [address] Mariann [facility] 13 mm/hr Normal <=20 [facility] Comment on above: Performed By: #### S EDR #### [facility] [address] [address] [address] Mariann Odom CBC AUTO DIFFon 04-11-2022 BASO # 0.1 103/ul Normal 0.0-0.1 [facility] Comment on above: Performed By: #### C BC #### [facility] [address] [address] [address] Mariann Odom Basophils/100 WBC (Bld) 0.9 % Normal 0.2-2.0 [facility] Comment on above: Performed By: #### C BC #### [facility] [address] [address] [address] Mariann Odom EO # 0.2 103/ul Normal 0.0-0.7 [facility] Comment on above: Performed By: #### C BC #### [facility] [address] [place] [address] Dr. Mariann Odom Eosinophils/100 WBC (Bld) 4.2 % Normal 0.9-7.0 [facility] Comment on above: Performed By: #### C BC #### [facility] [address] [place] [address] Dr. Mariann Odom Erythrocyte distribution width (RBC) [Ratio] 14.3 % Normal 11.0-15.0 [facility] Comment on above: Performed By: #### C BC #### [facility] [address] [place] [address] Dr. Mariann Odom Hematocrit (Bld) [Volume fraction] 41.7 % Critically low 42.0-54.0 [facility] Comment on above: Performed By: #### C BC #### [facility] [address] [place] [address] Dr. Mariann Odom Hemoglobin (Bld) [Mass/Vol] 13.6 g/dL Critically low 14.0-18.0 [facility] Comment on above: Performed By: #### C BC #### [facility] [address] [place] [address] Dr. Mariann Odom IG # 0.01 10e3/ul Normal 0.00-0.03 [facility] Comment on above: Performed By: #### C BC #### [facility] [address] [place] [address] Dr. Mariann Odom IG % 0.2 % Normal 0.0-0.5 [facility] Comment on above: Performed By: #### C BC #### [facility] [address] [place] [address] Dr. Mariann Odom LYMPH # 1.6 103/ul Normal 1.2-3.8 [facility] Comment on above: Performed By: #### C BC #### [facility] [address] [place] [address] Dr. Mariann Odom Lymphocytes/100 WBC (Bld) 28.8 % Normal 20.5-60.0 [facility] Comment on above: Performed By: #### C BC #### [facility] [address] [place] [address] Dr. Mariann Odom MANUAL DIFF REQ NO Normal [facility] Comment on above: Performed By: #### C BC #### [facility] [address] [place] [address] Dr. Mariann Odom MCH (RBC) [Entitic mass] 27.7 pg Normal 25.9-34.0 [facility] Comment on above: Performed By: #### C BC #### [facility] [address] [place] [address] Dr. Mariann Odom MCHC (RBC) [Mass/Vol] 32.6 g/dL Normal 29.9-35.2 [facility] Comment on above: Performed By: #### C BC #### [facility] [address] [place] [address] Dr. Mariann Odom MCV (RBC) [Entitic vol] 84.9 fL Normal 80.0-94.0 [facility] Comment on above: Performed By: #### C BC #### [facility] [address] [place] [address] Dr. Mariann Odom MONO # 0.6 103/ul Normal 0.3-0.8 [facility] Comment on above: Performed By: #### C BC #### [facility] [address] [place] [address] Dr. Mariann Odom Monocytes/100 WBC (Bld) 10.4 % Normal 1.7-12.0 [facility] Comment on above: Performed By: #### C BC #### [facility] [address] [place] [address] Dr. Mariann Odom NEUT # 3.2 103/ul Normal 1.4-6.5 [facility] Comment on above: Performed By: #### C BC #### [facility] [address] [place] [address] Dr. Mariann Odom Neutrophils/100 WBC (Bld) 55.5 % Normal 43.0-75.0 [facility] Comment on above: Performed By: #### C BC #### [facility] [address] [place] [address] Dr. Mariann Odom Platelet mean volume (Bld) [Entitic vol] 10.8 fL Normal 9.5-13.5 [facility] Comment on above: Performed By: #### C BC #### [facility] [address] [place] [address] Dr. Mariann Odom PLT 269 103/ul Normal 150-450 [facility] Comment on above: Performed By: #### C BC #### [facility] [address] [place] [address] Dr. Mariann Odom RBC 4.91 106/ul Normal 4.70-6.10 [facility] Comment on above: Performed By: #### C BC #### [facility] [address] [place] [address] Dr. Mariann Odom WBC 5.7 103/ul Normal 4.0-11.0 [facility] Comment on above: Performed By: #### C BC #### [facility] [address] [place] [address] Dr. Mariann Odom PROF 14(COMP METB)on 023 Albumin [Mass/Vol] 3.6 g/dL Normal 3.4-5.0 [facility] Comment on above: Performed By: #### C MP #### [facility] [address] [place] [address] Dr. Mariann Odom Albumin/Globulin [Mass ratio] 1.1 {ratio} Normal [facility] Comment on above: Performed By: #### C MP #### [facility] [address] [address] [address] Mariann Odom ALP [Catalytic activity/Vol] 95 U/L Normal 46-116 [facility] Comment on above: Performed By: #### C MP #### [facility] [address] [place] [address] Dr. Mariann Odom ALT [Catalytic activity/Vol] 39 U/L Normal 16-63 [facility] Comment on above: Performed By: #### C MP #### [facility] [address] [place] [address] Dr. Mariann Odom Anion gap [Moles/Vol] 11.1 mmol/L Normal [facility] Comment on above: Performed By: #### C MP #### [facility] [address] [place] [address] Dr. Mariann Odom AST [Catalytic activity/Vol] 25 U/L Normal 15-37 [facility] Comment on above: Performed By: #### C MP #### [facility] [address] [place] [address] Dr. Mariann Odom Bilirubin [Mass/Vol] 0.3 mg/dL Normal 0.2-1.0 [facility] Comment on above: Performed By: #### C MP #### [facility] [address] [place] [address] Dr. Mariann Odom Calcium [Mass/Vol] 9.0 mg/dL Normal 8.5-10.1 [facility] Comment on above: Performed By: #### C MP #### [facility] [address] [place] [address] Dr. Mariann Odom Chloride [Moles/Vol] 104 mmol/L Normal 98-107 [facility] Comment on above: Performed By: #### C MP #### [facility] [address] [place] [address] Dr. Mariann Odom CO2 [Moles/Vol] 27.8 mmol/L Normal 21.0-32.0 [facility] Comment on above: Performed By: #### C MP #### [facility] [address] [address] [address] Mariann Odom Creatinine [Mass/Vol] 0.81 mg/dL Normal 0.70-1.30 [facility] Comment on above: Performed By: #### C MP #### [facility] [address] [address] [address] Mariann Odom EGFR-AF AZERBAIJANI >60 Normal >=60 [facility] Comment on above: Performed By: #### C MP #### [facility] [address] [address] [address] Mariann Odom EGFR-NON AF AZERBAIJANI >60 Normal >=60 [facility] Comment on above: Performed By: #### C MP #### [facility] [address] [address] [address] Mariann Odom Globulin (S) [Mass/Vol] 3.4 g/dL Normal [facility] Comment on above: Performed By: #### C MP #### [facility] [address] [address] [address] Mariann Odom Glucose [Mass/Vol] 189 mg/dL Critically high 74-106 [facility] Comment on above: Performed By: #### C MP #### [facility] [address] [address] [address] Mariann Odom Potassium [Moles/Vol] 3.9 mmol/L Normal 3.5-5.1 [facility] Comment on above: Performed By: #### C MP #### [facility] [address] [address] [address] Mariann Odom Protein [Mass/Vol] 7.0 g/dL Normal 6.4-8.2 [facility] Comment on above: Performed By: #### C MP #### [facility] [address] [address] [address] Mariann Odom Sodium [Moles/Vol] 139 mmol/L Normal 136-145 [facility] Comment on above: Performed By: #### C MP #### [facility] [address] [address] [address] Mariann Odom Urea nitrogen [Mass/Vol] 14.0 mg/dL Normal 7.0-18.0 [facility] Comment on above: Performed By: #### C MP #### [facility] [address] [address] [address] Mariann Odom Urea nitrogen/Creatinine [Mass ratio] 17.3 mg/mg Normal [facility] Comment on above: Performed By: #### C MP #### [facility] [address] [address] [address] Mariann [facility] 24 mm/hr Critically high <=20 [facility] Comment on above: Performed By: #### C MP #### [facility] [address] [address] [address] Mariann Odom GLYCOHEMOGLOBIN A1Con 2022 ADA RECOMMENDATION SEE BELOW Normal [facility] Comment on above: Result Comment: ADA RECOMMENDED LIMIT 4.0 - 6.0 ADA THERAPEUTIC TARGET < 7.0 ACTION SUGGESTED > 7.0 Performed By: #### A 1C #### [facility] [address] [place] [address] Dr. Mariann Odom Glucose [Mass/Vol] 263 mg/dL Normal [facility] Comment on above: Performed By: #### A 1C #### [facility] [address] [address] [address] Mariann Odom HbA1c (Bld) [Mass fraction] 10.8 % Critically high 4.5-6.2 [facility] Comment on above: Performed By: #### A 1C #### [facility] [address] [place] [address] Dr. Mariann Odom CBC AUTO DIFFon 01-03-2022 BASO # 0.0 103/ul Normal 0.0-0.1 [facility] Comment on above: Performed By: #### C MP #### [facility] [address] [place] [address] Dr. Mariann Odom Basophils/100 WBC (Bld) 0.6 % Normal 0.2-2.0 [facility] Comment on above: Performed By: #### C MP #### [facility] [address] [place] [address] Dr. Mariann Odom EO # 0.4 103/ul Normal 0.0-0.7 [facility] Comment on above: Performed By: #### C MP #### [facility] [address] [place] [address] Dr. Mariann Odom Eosinophils/100 WBC (Bld) 5.0 % Normal 0.9-7.0 [facility] Comment on above: Performed By: #### C MP #### [facility] [address] [place] [address] Dr. Mariann Odom Erythrocyte distribution width (RBC) [Ratio] 13.5 % Normal 11.0-15.0 [facility] Comment on above: Performed By: #### C MP #### [facility] [address] [place] [address] Dr. Mariann Odom Hematocrit (Bld) [Volume fraction] 42.2 % Normal 42.0-54.0 [facility] Comment on above: Performed By: #### C MP #### [facility] [address] [place] [address] Dr. Mariann Odom Hemoglobin (Bld) [Mass/Vol] 13.9 g/dL Critically low 14.0-18.0 [facility] Comment on above: Performed By: #### C MP #### [facility] [address] [place] [address] Dr. Mariann Odom IG # 0.02 10e3/ul Normal 0.00-0.03 [facility] Comment on above: Performed By: #### C MP #### [facility] [address] [place] [address] Dr. Mariann Odom IG % 0.3 % Normal 0.0-0.5 [facility] Comment on above: Performed By: #### C MP #### [facility] [address] [place] [address] Dr. Mariann Odom LYMPH # 1.8 103/ul Normal 1.2-3.8 [facility] Comment on above: Performed By: #### C MP #### [facility] [address] [place] [address] Dr. Mariann Odom Lymphocytes/100 WBC (Bld) 24.7 % Normal 20.5-60.0 [facility] Comment on above: Performed By: #### C MP #### [facility] [address] [place] [address] Dr. Mariann Odom MANUAL DIFF REQ NO Normal [facility] Comment on above: Performed By: #### C MP #### [facility] [address] [place] [address] Dr. Mariann Odom MCH (RBC) [Entitic mass] 28.3 pg Normal 25.9-34.0 [facility] Comment on above: Performed By: #### C MP #### [facility] [address] [place] [address] Dr. Mariann Odom MCHC (RBC) [Mass/Vol] 32.9 g/dL Normal 29.9-35.2 [facility] Comment on above: Performed By: #### C MP #### [facility] [address] [place] [address] Dr. Mariann Odom MCV (RBC) [Entitic vol] 85.9 fL Normal 80.0-94.0 [facility] Comment on above: Performed By: #### C MP #### [facility] [address] [place] [address] Dr. Mariann Odom MONO # 0.6 103/ul Normal 0.3-0.8 [facility] Comment on above: Performed By: #### C MP #### [facility] [address] [place] [address] Dr. Mariann Odom Monocytes/100 WBC (Bld) 8.8 % Normal 1.7-12.0 [facility] Comment on above: Performed By: #### C MP #### [facility] [address] [place] [address] Dr. Mariann Odom NEUT # 4.4 103/ul Normal 1.4-6.5 [facility] Comment on above: Performed By: #### C MP #### [facility] [address] [place] [address] Dr. Mariann Odom Neutrophils/100 WBC (Bld) 60.6 % Normal 43.0-75.0 [facility] Comment on above: Performed By: #### C MP #### [facility] [address] [place] [address] Dr. Mariann Odom Platelet mean volume (Bld) [Entitic vol] 11.2 fL Normal 9.5-13.5 [facility] Comment on above: Performed By: #### C MP #### [facility] [address] [place] [address] Dr. Mariann Odom PLT 268 103/ul Normal 150-450 [facility] Comment on above: Performed By: #### C MP #### [facility] [address] [place] [address] Dr. Mariann Odom RBC 4.91 106/ul Normal 4.70-6.10 [facility] Comment on above: Performed By: #### C MP #### [facility] [address] [place] [address] Dr. Mariann Odom WBC 7.2 103/ul Normal 4.0-11.0 [facility] Comment on above: Performed By: #### C MP #### [facility] [address] [place] [address] Dr. Mariann Odom PROF 14(COMP METB)on 022 Albumin [Mass/Vol] 3.8 g/dL Normal 3.4-5.0 [facility] Comment on above: Performed By: #### C MP #### [facility] [address] [place] [address] Dr. Mariann Odom Albumin/Globulin [Mass ratio] 1.0 {ratio} Normal [facility] Comment on above: Performed By: #### C MP #### [facility] [address] [place] [address] Dr. Mariann Odom ALP [Catalytic activity/Vol] 95 U/L Normal 46-116 [facility] Comment on above: Performed By: #### C MP #### [facility] [address] [address] [address] Mariann Odom ALT [Catalytic activity/Vol] 66 U/L Critically high 16-63 [facility] Comment on above: Performed By: #### C MP #### [facility] [address] [address] [address] Mariann Odom Anion gap [Moles/Vol] 12.7 mmol/L Normal [facility] Comment on above: Performed By: #### C MP #### [facility] [address] [address] [address] Mariann Odom AST [Catalytic activity/Vol] 42 U/L Critically high 15-37 [facility] Comment on above: Performed By: #### C MP #### [facility] [address] [address] [address] Mariann Odom Bilirubin [Mass/Vol] 0.4 mg/dL Normal 0.2-1.0 [facility] Comment on above: Performed By: #### C MP #### [facility] [address] [address] [address] Mariann Odom Calcium [Mass/Vol] 9.0 mg/dL Normal 8.5-10.1 [facility] Comment on above: Performed By: #### C MP #### [facility] [address] [address] [address] Mariann Odom Chloride [Moles/Vol] 101 mmol/L Normal 98-107 [facility] Comment on above: Performed By: #### C MP #### [facility] [address] [address] [address] Mariann Odom CO2 [Moles/Vol] 27.0 mmol/L Normal 21.0-32.0 [facility] Comment on above: Performed By: #### C MP #### [facility] [address] [address] [address] Mariann Odom Creatinine [Mass/Vol] 1.22 mg/dL Normal 0.70-1.30 [facility] Comment on above: Performed By: #### C MP #### [facility] [address] [address] [address] Mariann Odom EGFR-AF AZERBAIJANI >60 Normal >=60 [facility] Comment on above: Performed By: #### C MP #### [facility] [address] [address] [address] Mariann Odom EGFR-NON AF AZERBAIJANI >60 Normal >=60 [facility] Comment on above: Performed By: #### C MP #### [facility] [address] [address] [address] Mariann Odom Globulin (S) [Mass/Vol] 3.7 g/dL Normal [facility] Comment on above: Performed By: #### C MP #### [facility] [address] [place] [address] Dr. Mariann Odom Glucose [Mass/Vol] 288 mg/dL Critically high 74-106 [facility] Comment on above: Performed By: #### C MP #### [facility] [address] [address] [address] Mariann Odom Potassium [Moles/Vol] 3.7 mmol/L Normal 3.5-5.1 [facility] Comment on above: Performed By: #### C MP #### [facility] [address] [place] [address] Dr. Mariann Odom Protein [Mass/Vol] 7.5 g/dL Normal 6.4-8.2 [facility] Comment on above: Performed By: #### C MP #### [facility] [address] [place] [address] Dr. Mariann Odom Sodium [Moles/Vol] 137 mmol/L Normal 136-145 [facility] Comment on above: Performed By: #### C MP #### [facility] [address] [address] [address] Mariann Odom Urea nitrogen [Mass/Vol] 13.0 mg/dL Normal 7.0-18.0 [facility] Comment on above: Performed By: #### C MP #### [facility] [address] [address] [address] Mariann Odom Urea nitrogen/Creatinine [Mass ratio] 10.7 mg/mg Normal [facility] Comment on above: Performed By: #### C MP #### [facility] [address] [place] [address] Dr. Mariann Odom [facility] SED RATE 26 mm/hr Critically high <=20 [facility] Comment on above: Performed By: #### C MP #### [facility] [address] [place] [address] Dr. Mariann Odom CBC AUTO DIFFon 09-13-2021 BASO # 0.0 103/ul Normal 0.0-0.1 [facility] Comment on above: Performed By: #### C MP #### [facility] [address] [place] [address] Dr. Mariann Odom Basophils/100 WBC (Bld) 0.8 % Normal 0.2-2.0 [facility] Comment on above: Performed By: #### C MP #### [facility] [address] [place] [address] Dr. Mariann Odom EO # 0.2 103/ul Normal 0.0-0.7 [facility] Comment on above: Performed By: #### C MP #### [facility] [address] [place] [address] Dr. Mariann Odom Eosinophils/100 WBC (Bld) 4.5 % Normal 0.9-7.0 [facility] Comment on above: Performed By: #### C MP #### [facility] [address] [place] [address] Dr. Mariann Odom Erythrocyte distribution width (RBC) [Ratio] 15.0 % Normal 11.0-15.0 [facility] Comment on above: Performed By: #### C MP #### [facility] [address] [place] [address] Dr. Mariann Odom Hematocrit (Bld) [Volume fraction] 40.6 % Critically low 42.0-54.0 [facility] Comment on above: Performed By: #### C MP #### [facility] [address] [place] [address] Dr. Mariann Odom Hemoglobin (Bld) [Mass/Vol] 12.8 g/dL Critically low 14.0-18.0 [facility] Comment on above: Performed By: #### C MP #### [facility] [address] [place] [address] Dr. Mariann Odom IG # 0.01 10e3/ul Normal 0.00-0.03 [facility] Comment on above: Performed By: #### C MP #### [facility] [address] [place] [address] Dr. Mariann Odom IG % 0.2 % Normal 0.0-0.5 [facility] Comment on above: Performed By: #### C MP #### [facility] [address] [place] [address] Dr. Mariann Odom LYMPH # 1.5 103/ul Normal 1.2-3.8 [facility] Comment on above: Performed By: #### C MP #### [facility] [address] [place] [address] Dr. Mariann Odom Lymphocytes/100 WBC (Bld) 31.0 % Normal 20.5-60.0 [facility] Comment on above: Performed By: #### C MP #### [facility] [address] [place] [address] Dr. Mariann Odom MANUAL DIFF REQ NO Normal [facility] Comment on above: Performed By: #### C MP #### [facility] [address] [place] [address] Dr. Mariann Odom MCH (RBC) [Entitic mass] 28.3 pg Normal 25.9-34.0 [facility] Comment on above: Performed By: #### C MP #### [facility] [address] [place] [address] Dr. Mariann Odom MCHC (RBC) [Mass/Vol] 31.5 g/dL Normal 29.9-35.2 [facility] Comment on above: Performed By: #### C MP #### [facility] [address] [place] [address] Dr. Mariann Odom MCV (RBC) [Entitic vol] 89.6 fL Normal 80.0-94.0 [facility] Comment on above: Performed By: #### C MP #### [facility] [address] [place] [address] Dr. Mariann Odom MONO # 0.6 103/ul Normal 0.3-0.8 [facility] Comment on above: Performed By: #### C MP #### [facility] [address] [address] [address] Mariann Odom Monocytes/100 WBC (Bld) 11.4 % Normal 1.7-12.0 [facility] Comment on above: Performed By: #### C MP #### [facility] [address] [place] [address] Dr. Mariann Odom NEUT # 2.6 103/ul Normal 1.4-6.5 [facility] Comment on above: Performed By: #### C MP #### [facility] [address] [place] [address] Dr. Mariann Odom Neutrophils/100 WBC (Bld) 52.1 % Normal 43.0-75.0 [facility] Comment on above: Performed By: #### C MP #### [facility] [address] [place] [address] Dr. Mariann Odom Platelet mean volume (Bld) [Entitic vol] 11.9 fL Normal 9.5-13.5 [facility] Comment on above: Performed By: #### C MP #### [facility] [address] [place] [address] Dr. Mariann Odom PLT 288 103/ul Normal 150-450 [facility] Comment on above: Performed By: #### C MP #### [facility] [address] [place] [address] Dr. Mariann Odom RBC 4.53 106/ul Critically low 4.70-6.10 [facility] Comment on above: Performed By: #### C MP #### [facility] [address] [place] [address] Dr. Mariann Odom WBC 4.9 103/ul Normal 4.0-11.0 [facility] Comment on above: Performed By: #### C MP #### [facility] [address] [address] [address] Mariann Odom GLYCOHEMOGLOBIN A1Con 2021 ADA RECOMMENDATION SEE BELOW Normal [facility] Comment on above: Result Comment: ADA RECOMMENDED LIMIT 4.0 - 6.0 ADA THERAPEUTIC TARGET < 7.0 ACTION SUGGESTED > 7.0 Performed By: #### A 1C #### [facility] [address] [place] [address] Dr. Mariann Odom Glucose [Mass/Vol] 154 mg/dL Normal [facility] Comment on above: Performed By: #### A 1C #### [facility] [address] [place] [address] Dr. Mariann Odom HbA1c (Bld) [Mass fraction] 7.0 % Critically high 4.5-6.2 [facility] Comment on above: Performed By: #### A 1C #### [facility] [address] [place] [address] Dr. Mariann Odom LIPID PROFILEon 09-13-2021 CHOL-HDL RATIO NORM SEE BELOW Normal [facility] Comment on above: Result Comment: 3.3 - 4.4 LOW RISK 4.4 - 7.1 AVERAGE RISK 7.1 - 11.0 MODERATE RISK >11.0 HIGH RISK Performed By: #### C MP #### [facility] [address] [place] [address] Dr. Mariann Odom Cholesterol [Mass/Vol] 114 mg/dL Normal <=200 [facility] Comment on above: Performed By: #### C MP #### [facility] [address] [address] [address] Mariann Odom Cholesterol in HDL [Mass/Vol] 50 mg/dL Normal 40-60 [facility] Comment on above: Performed By: #### C MP #### [facility] [address] [address] [address] Mariann Odom Cholesterol in LDL [Mass/Vol] 52.4 mg/dL Normal [facility] Comment on above: Performed By: #### C MP #### [facility] [address] [address] [address] Mariann Odom Cholesterol.total/Chol esterol in HDL [Mass ratio] 2.3 {ratio} Normal [facility] Comment on above: Performed By: #### C MP #### [facility] [address] [address] [address] Mariann Odom HDL NORMAL > or = 60 mg/dl - LOW CARDIOVASCULAR RISK <40 mg/dl - HIGH CARDIOVASCULAR RISK Normal [facility] Comment on above: Performed By: #### C MP #### [facility] [address] [address] [address] Mariann Odom LDL CALC NORMAL SEE BELOW Normal [facility] Comment on above: Result Comment: <100 mg/dl OPTIMAL 100 - 129 mg/dl NEAR OR ABOVE OPTIMAL 130 - 159 mg/dl BORDERLINE HIGH 160 - 189 mg/dl HIGH >190 mg/dl VERY HIGH Performed By: #### C MP #### [facility] [address] [place] [address] Dr. Mariann Odom Triglyceride [Mass/Vol] 58 mg/dL Normal <=150 [facility] Comment on above: Performed By: #### C MP #### [facility] [address] [address] [address] Mariann Odom VLDL CALC 11.6 mg/dL Normal [facility] Comment on above: Performed By: #### C MP #### [facility] [address] [address] [address] Mariann Odom LIVER PROFILEon 09-13-2021 Albumin [Mass/Vol] 4.0 g/dL Normal 3.4-5.0 [facility] Comment on above: Performed By: #### C MP #### [facility] [address] [place] [address] Dr. Mariann Odom Albumin/Globulin [Mass ratio] 1.1 {ratio} Normal [facility] Comment on above: Performed By: #### C MP #### [facility] [address] [address] [address] Mariann Odom ALP [Catalytic activity/Vol] 72 U/L Normal 46-116 [facility] Comment on above: Performed By: #### C MP #### [facility] [address] [address] [address] Mariann Odom ALT [Catalytic activity/Vol] 43 U/L Normal 16-63 [facility] Comment on above: Performed By: #### C MP #### [facility] [address] [address] [address] Mariann Odom AST [Catalytic activity/Vol] 28 U/L Normal 15-37 [facility] Comment on above: Performed By: #### C MP #### [facility] [address] [address] [address] Mariann Odom BILI, CONJUGATED 0.1 mg/dL Normal 0.0-0.2 [facility] Comment on above: Performed By: #### C MP #### [facility] [address] [address] [address] Mariann Odom Bilirubin [Mass/Vol] 0.4 mg/dL Normal 0.2-1.0 [facility] Comment on above: Performed By: #### C MP #### [facility] [address] [address] [address] Mariann Odom Globulin (S) [Mass/Vol] 3.5 g/dL Normal [facility] Comment on above: Performed By: #### C MP #### [facility] [address] [address] [address] Mariann Odom Protein [Mass/Vol] 7.5 g/dL Normal 6.4-8.2 [facility] Comment on above: Performed By: #### C MP #### [facility] [address] [address] [address] Mariann Odom MICROALBUMIN, RAND URon - mALB 1.5 mg/L Normal <=30.0 [facility] Comment on above: Performed By: #### M ALBR #### [facility] [address] [address] [address] Mariann Odom PROF CHEM 8 (BAS METB)on 06- 21-2022 Anion gap [Moles/Vol] 11.3 mmol/L Normal Th e [facility] Comment on above: Performed By: #### C MP #### [facility] [address] [place] [address] Dr. Mariann Odom Calcium [Mass/Vol] 9.1 mg/dL Normal 8.5-10.1 [facility] Comment on above: Performed By: #### C MP #### [facility] [address] [place] [address] Dr. Mariann Odom Chloride [Moles/Vol] 106 mmol/L Normal 98-107 [facility] Comment on above: Performed By: #### C MP #### [facility] [address] [place] [address] Dr. Mariann Odom CO2 [Moles/Vol] 29.0 mmol/L Normal 21.0-32.0 [facility] Comment on above: Performed By: #### C MP #### [facility] [address] [place] [address] Dr. Mariann Odom Creatinine [Mass/Vol] 0.93 mg/dL Normal 0.70-1.30 [facility] Comment on above: Performed By: #### C MP #### [facility] [address] [place] [address] Dr. Mariann Odom EGFR-AF AZERBAIJANI >60 Normal >=60 [facility] Comment on above: Performed By: #### C MP #### [facility] [address] [place] [address] Dr. Mariann Odom EGFR-NON AF AZERBAIJANI >60 Normal >=60 [facility] Comment on above: Performed By: #### C MP #### [facility] [address] [place] [address] Dr. Mariann Odom Glucose [Mass/Vol] 99 mg/dL Normal 74-106 [facility] Comment on above: Performed By: #### C MP #### [facility] [address] [place] [address] Dr. Mariann Odom Potassium [Moles/Vol] 4.3 mmol/L Normal 3.5-5.1 [facility] Comment on above: Performed By: #### C MP #### [facility] [address] [place] [address] Dr. Mariann Odom Sodium [Moles/Vol] 142 mmol/L Normal 136-145 [facility] Comment on above: Performed By: #### C MP #### [facility] [address] [place] [address] Dr. Mariann Odom Urea nitrogen [Mass/Vol] 11.0 mg/dL Normal 7.0-18.0 [facility] Comment on above: Performed By: #### C MP #### [facility] [address] [place] [address] Dr. Mariann Odom Urea nitrogen/Creatinine [Mass ratio] 11.8 mg/mg Normal [facility] Comment on above: Performed By: #### C MP #### [facility] [address] [place] [address] Dr. Mariann Odom TSHon 09-13-2021 TSH 1.183 uIU/mL Normal 0.358-3.740 [facility] Comment on above: Performed By: #### C MP #### [facility] [address] [place] [address] Dr. Mariann Odom CBC AUTO DIFFon 08-24-2021 BASO # 0.1 103/ul Normal 0.0-0.1 [facility] Comment on above: Performed By: #### C BC #### [facility] [address] [place] [address] Dr. Mariann Odom Basophils/100 WBC (Bld) 1.0 % Normal 0.2-2.0 [facility] Comment on above: Performed By: #### C BC #### [facility] [address] [place] [address] Dr. Mariann Odom EO # 0.2 103/ul Normal 0.0-0.7 [facility] Comment on above: Performed By: #### C BC #### [facility] [address] [place] [address] Dr. Mariann Odom Eosinophils/100 WBC (Bld) 4.4 % Normal 0.9-7.0 [facility] Comment on above: Performed By: #### C BC #### [facility] [address] [place] [address] Dr. Mariann Odom Erythrocyte distribution width (RBC) [Ratio] 14.8 % Normal 11.0-15.0 [facility] Comment on above: Performed By: #### C BC #### [facility] [address] [place] [address] Dr. Mariann Odom Hematocrit (Bld) [Volume fraction] 41.1 % Critically low 42.0-54.0 [facility] Comment on above: Performed By: #### C BC #### [facility] [address] [place] [address] Dr. Mariann Odom Hemoglobin (Bld) [Mass/Vol] 13.1 g/dL Critically low 14.0-18.0 [facility] Comment on above: Performed By: #### C BC #### [facility] [address] [place] [address] Dr. Mariann Odom IG # 0.01 10e3/ul Normal 0.00-0.03 [facility] Comment on above: Performed By: #### C BC #### [facility] [address] [place] [address] Dr. Mariann Odom IG % 0.2 % Normal 0.0-0.5 [facility] Comment on above: Performed By: #### C BC #### [facility] [address] [place] [address] Dr. Mariann Odom LYMPH # 1.6 103/ul Normal 1.2-3.8 [facility] Comment on above: Performed By: #### C BC #### [facility] [address] [place] [address] Dr. Mariann Odom Lymphocytes/100 WBC (Bld) 30.9 % Normal 20.5-60.0 [facility] Comment on above: Performed By: #### C BC #### [facility] [address] [place] [address] Dr. Mariann Odom MANUAL DIFF REQ NO Normal [facility] Comment on above: Performed By: #### C BC #### [facility] [address] [place] [address] Dr. Mariann Odom MCH (RBC) [Entitic mass] 28.4 pg Normal 25.9-34.0 [facility] [facility] Comment on above: Performed By: #### C BC #### [facility] [address] [place] [address] Dr. Mariann Odom MCHC (RBC) [Mass/Vol] 31.9 g/dL Normal 29.9-35.2 [facility] Comment on above: Performed By: #### C BC #### [facility] [address] [place] [address] Dr. Mariann Odom MCV (RBC) [Entitic vol] 89.2 fL Normal 80.0-94.0 [facility] Comment on above: Performed By: #### C BC #### [facility] [address] [place] [address] Dr. Mariann Odom MONO # 0.5 103/ul Normal 0.3-0.8 [facility] Comment on above: Performed By: #### C BC #### [facility] [address] [place] [address] Dr. Mariann Odom Monocytes/100 WBC (Bld) 9.4 % Normal 1.7-12.0 [facility] Comment on above: Performed By: #### C BC #### [facility] [address] [place] [address] Dr. Mariann Odom NEUT # 2.7 103/ul Normal 1.4-6.5 [facility] Comment on above: Performed By: #### C BC #### [facility] [address] [place] [address] Dr. Mariann Odom Neutrophils/100 WBC (Bld) 54.1 % Normal 43.0-75.0 [facility] Comment on above: Performed By: #### C BC #### [facility] [address] [place] [address] Dr. Mariann Odom Platelet mean volume (Bld) [Entitic vol] 11.3 fL Normal 9.5-13.5 [facility] Comment on above: Performed By: #### C BC #### [facility] [address] [place] [address] Dr. Mariann Odom PLT 251 103/ul Normal 150-450 [facility] Comment on above: Performed By: #### C BC #### [facility] [address] [address] [address] Mariann Odom RBC 4.61 106/ul Critically low 4.70-6.10 [facility] Comment on above: Performed By: #### C BC #### [facility] [address] [place] [address] Dr. Mariann Odom WBC 5.0 103/ul Normal 4.0-11.0 [facility] Comment on above: Performed By: #### C BC #### [facility] [address] [place] [address] Dr. Mariann Odom PROF 14(COMP METB)on 022 Albumin [Mass/Vol] 3.7 g/dL Normal 3.4-5.0 [facility] Comment on above: Performed By: #### C MP #### [facility] [address] [place] [address] Dr. Mariann Odom Albumin/Globulin [Mass ratio] 1.0 {ratio} Normal [facility] Comment on above: Performed By: #### C MP #### [facility] [address] [place] [address] Dr. Mariann Odom ALP [Catalytic activity/Vol] 87 U/L Normal 46-116 [facility] Comment on above: Performed By: #### C MP #### [facility] [address] [place] [address] Dr. Mariann Odom ALT [Catalytic activity/Vol] 39 U/L Normal 16-63 [facility] Comment on above: Performed By: #### C MP #### [facility] [address] [place] [address] Dr. Mariann Odom Anion gap [Moles/Vol] 10.2 mmol/L Normal [facility] Comment on above: Performed By: #### C MP #### [facility] [address] [place] [address] Dr. Mariann Odom AST [Catalytic activity/Vol] 22 U/L Normal 15-37 [facility] Comment on above: Performed By: #### C MP #### [facility] [address] [address] [address] Mariann Odom Bilirubin [Mass/Vol] 0.3 mg/dL Normal 0.2-1.0 [facility] Comment on above: Performed By: #### C MP #### [facility] [address] [address] [address] Mariann Odom Calcium [Mass/Vol] 9.4 mg/dL Normal 8.5-10.1 [facility] Comment on above: Performed By: #### C MP #### [facility] [address] [address] [address] Mariann Odom Chloride [Moles/Vol] 105 mmol/L Normal 98-107 [facility] Comment on above: Performed By: #### C MP #### [facility] [address] [address] [address] Mariann Odom CO2 [Moles/Vol] 28.9 mmol/L Normal 21.0-32.0 [facility] Comment on above: Performed By: #### C MP #### [facility] [address] [place] [address] Dr. Mariann Odom Creatinine [Mass/Vol] 0.93 mg/dL Normal 0.70-1.30 [facility] Comment on above: Performed By: #### C MP #### [facility] [address] [address] [address] Mariann Odom EGFR-AF AZERBAIJANI >60 Normal >=60 [facility] Comment on above: Performed By: #### C MP #### [facility] [address] [address] [address] Mariann Odom EGFR-NON AF AZERBAIJANI >60 Normal >=60 [facility] Comment on above: Performed By: #### C MP #### [facility] [address] [address] [address] Mariann Odom Globulin (S) [Mass/Vol] 3.7 g/dL Normal [facility] Comment on above: Performed By: #### C MP #### [facility] [address] [address] [address] Mariann Odom Glucose [Mass/Vol] 253 mg/dL Critically high 74-106 [facility] Comment on above: Performed By: #### C MP #### [facility] [address] [address] [address] Mariann Odom Potassium [Moles/Vol] 4.1 mmol/L Normal 3.5-5.1 [facility] Comment on above: Performed By: #### C MP #### [facility] [address] [address] [address] Mariann Odom Protein [Mass/Vol] 7.4 g/dL Normal 6.4-8.2 [facility] Comment on above: Performed By: #### C MP #### [facility] [address] [address] [address] Mariann Odom Sodium [Moles/Vol] 140 mmol/L Normal 136-145 [facility] Comment on above: Performed By: #### C MP #### [facility] [address] [address] [address] Mariann Odom Urea nitrogen [Mass/Vol] 15.0 mg/dL Normal 7.0-18.0 [facility] Comment on above: Performed By: #### C MP #### [facility] [address] [address] [address] Mariann Odom Urea nitrogen/Creatinine [Mass ratio] 16.1 mg/mg Normal [facility] Comment on above: Performed By: #### C MP #### [facility] [address] [address] [address] Mariann Odom SED RATE [facility] 2021 SED RATE 15 mm/hr Normal <=20 [facility] Comment on above: Performed By: #### C MP #### [facility] [address] [address] [address] Mariann Odom Vital Signs Date Time Vital Sign Value Performing Clinician Facility 01-15-2024 09:01-0400 Body mass index (BMI) [Ratio] 29.62 kg/m2 Major Stevens MD Work Phone: [facility] 01-15-2024 09:01-0400 Body temperature 97.3 [degF] Major Stevens MD Work Phone: [facility] 01-15-2024 09:01-0400 Body weight 93.62 kg Major Stevens MD Work Phone: [facility] 01-15-2024 09:01-0400 Diastolic blood pressure 82 mm[Hg] Major Stevens MD Work Phone: [facility] 01-15-2024 09:01-0400 Heart rate 62 /min Major Stevens MD Work Phone: [facility] 01-15-2024 09:01-0400 SaO2% (BldA) [Mass fraction] 98 % Major Stevens MD Work Phone: [facility] 01-15-2024 09:01-0400 Systolic blood pressure 142 mm[Hg] Major Stevens MD Work Phone: [facility] 08-14-2023 14:31-0400 Body height 177.8 cm Isha Valentino MD Work Phone: [facility] 08-14-2023 14:31-0400 Body mass index (BMI) [Ratio] 30.13 kg/m2 Isha Valentino MD Work Phone: [facility] 08-14-2023 14:31-0400 Body temperature 96.4 [degF] Isha Valentino MD Work Phone: [facility] 08-14-2023 14:31-0400 Body weight 95.25 kg Isha Valentino MD Work Phone: [facility] 08-14-2023 14:31-0400 Diastolic blood pressure 92 mm[Hg] Isha Valentino MD Work Phone: [facility] 08-14-2023 14:31-0400 Heart rate 69 /min Isha Valentino MD Work Phone: [facility] 08-14-2023 14:31-0400 Respiratory rate 18 /min Isha Valentino MD Work Phone: [facility] 08-14-2023 14:31-0400 Systolic blood pressure 160 mm[Hg] Isha Valentino MD Work Phone: [facility] 06-06-2023 16:00-0400 Body temperature 96.4 [degF] Isha Valentino MD Work Phone: [facility] 06-06-2023 16:00-0400 Diastolic blood pressure 100 mm[Hg] Isha Valentino MD Work Phone: [facility] 06-06-2023 16:00-0400 Heart rate 96 /min Isha Valentino MD Work Phone: [facility] 06-06-2023 16:00-0400 Respiratory rate 18 /min Isha Valentino MD Work Phone: [facility] 06-06-2023 16:00-0400 SaO2% (BldA) [Mass fraction] 98 % Isha Valentino MD Work Phone: [facility] 06-06-2023 16:00-0400 Systolic blood pressure 159 mm[Hg] Isha Valentino MD Work Phone: [facility] 06-01-2023 13:33-0500 Body temperature 37.0 Isha Valentino MD Work Phone: [facility] 06-01-2023 13:33-0500 SaO2% (BldA) [Mass fraction] 100 % Isha Valentino MD Work Phone: [facility] 06-01-2023 13:19-0500 Body temperature 37.0 degrees Celsius ISHA VALENTINO [facility] Comment on above: Performed By: #### [id number] #### PACHECO Ferraro ([id number]) [facility] ([facility]) [address] [place] [address] 06-01-2023 13:19-0500 SaO2% (BldA) [Mass fraction] 100 % [facility] Comment on above: Performed By: #### [id number] #### PACHECO Ferraro ([id number]) [facility] ([facility]) [address] [place] [address] 06-01-2023 12:51-0500 Body temperature 37.0 Isha Valentino MD Work Phone: [facility] 06-01-2023 12:51-0500 SaO2% (BldA) [Mass fraction] 100 % Isha Valentino MD Work Phone: [facility] 06-01-2023 12:36-0500 Body temperature 37.0 degrees Celsius [facility] Comment on above: Performed By: #### [id number] #### PACHECO Ferraro ([id number]) [facility] ([facility]) [address] [place] [address] 06-01-2023 12:36-0500 SaO2% (BldA) [Mass fraction] 100 % [facility] Comment on above: Performed By: #### [id number] #### PACHECO Ferraro ([id number]) [facility] ([facility]) [address] [place] [address] 06-01-2023 11:09-0500 Body temperature 37.0 Isha Valentino MD Work Phone: [facility] 06-01-2023 11:09-0500 SaO2% (BldA) [Mass fraction] 100 % Isha Valentino MD Work Phone: [facility] 06-01-2023 10:49-0500 Body temperature 37.0 degrees Celsius [facility] Comment on above: Performed By: #### [id number] #### PACHECO Ferraro ([id number]) [facility] ([facility]) [address] [place] [address] 06-01-2023 10:49-0500 SaO2% (BldA) [Mass fraction] 100 % [facility] Comment on above: Performed By: #### [id number] #### PACHECO Ferraro ([id number]) [facility] ([facility]) [address] [place] [address] 06-01-2023 09:27-0500 Body temperature 37.0 Isha Valentino MD Work Phone: [facility] 06-01-2023 09:27-0500 SaO2% (BldA) [Mass fraction] 100 % Isha Valentino MD Work Phone: [facility] 06-01-2023 09:00-0500 Body temperature 37.0 degrees Celsius [facility] Comment on above: Performed By: #### [id number] #### PACHECO Ferraro ([id number]) [facility] ([facility]) [address] [place] [address] 06-01-2023 09:00-0500 SaO2% (BldA) [Mass fraction] 100 % [facility] Comment on above: Performed By: #### [id number] #### PACHECO Ferraro ([id number]) [facility] ([facility]) [address] [place] [address] 06-01-2023 05:53-0500 Body height 177.8 cm Isha Valentino MD Work Phone: [facility] 06-01-2023 05:53-0500 Body mass index (BMI) [Ratio] 30.18 kg/m2 Isha Valentino MD Work Phone: [facility] 06-01-2023 05:53-0500 Body weight 95.4 kg Isha Valention MD Work Phone: [facility] 03-28-2023 10:40-0500 Body height 180.34 cm [employer] Other [employer] Other 03-28-2023 10:40-0500 Body mass index (BMI) [Ratio] 30.26 kg/m2 [employer] Other [employer] Other 03-28-2023 10:40-0500 Body weight 98.43 kg [employer] Other [employer] Other 02-19-2023 09:45-0500 Body height 180.34 cm Abel Sandoval Other [employer] Other 02-19-2023 09:45-0500 Body mass index (BMI) [Ratio] 30.12 kg/m2 Abel Sandoval Other [employer] Other 02-19-2023 09:45-0500 Body weight 97.98 kg Abel Sandoval Other [employer] Other 02-19-2023 09:45-0500 Diastolic blood pressure 80 mm[Hg] Abel Sandoval Other [employer] Other 02-19-2023 09:45-0500 SaO2% (BldA) [Mass fraction] 99 % Abel Sandoval Other [employer] Other 02-19-2023 09:45-0500 Systolic blood pressure 130 mm[Hg] Abel Sandoval Other [employer] Other 02-07-2023 10:35-0500 Diastolic blood pressure 81 mm[Hg] MD Major tSevens Work Phone: [facility] 02-07-2023 10:35-0500 Heart rate 65 /min MD Major Stevens Work Phone: [facility] 02-07-2023 10:35-0500 Respiratory rate 16 /min MD Major Stevens Work Phone: [facility] 02-07-2023 10:35-0500 SaO2% (BldA) [Mass fraction] 97 % MD Major Stevens Work Phone: [facility] 02-07-2023 10:35-0500 Systolic blood pressure 146 mm[Hg] MD Major Stevens Work Phone: [facility] 02-07-2023 09:57-0500 Inhaled oxygen flow rate 3 L/min MD Major Stevens Work Phone: [facility] 02-07-2023 08:54-0500 Body height 177.8 cm MD Major Stevens Work Phone: [facility] 02-07-2023 08:54-0500 Body weight 97.52 kg MD Major Stevens Work Phone: [facility] 01-17-2023 11:33-0400 Diastolic blood pressure 92 mm[Hg] MD Major Stevens Work Phone: [facility] 01-17-2023 11:33-0400 Heart rate 70 /min MD Major Stevens Work Phone: [facility] 01-17-2023 11:33-0400 Respiratory rate 16 /min MD Major Stevens Work Phone: [facility] 01-17-2023 11:33-0400 SaO2% (BldA) [Mass fraction] 98 % MD Major Stevens Work Phone: [facility] 01-17-2023 11:33-0400 Systolic blood pressure 171 mm[Hg] MD Major Stevens Work Phone: [facility] 01-17-2023 11:05-0400 Inhaled oxygen flow rate 3 L/min MD Major Stevens Work Phone: [facility] 01-17-2023 10:40-0400 Body height 177.8 cm MD Major Stevens Work Phone: [facility] 01-17-2023 10:40-0400 Body weight 97.52 kg MD Major Stevens Work Phone: [facility] 12-26-2022 08:30-0400 Body height 180.34 cm Abel Sandoval Other [employer] Other 12-26-2022 08:30-0400 Body mass index (BMI) [Ratio] 30.12 kg/m2 Abel Sandoval Other [employer] Other 12-26-2022 08:30-0400 Body weight 97.98 kg Abel Sandoval Other [employer] Other 12-26-2022 08:30-0400 Diastolic blood pressure 86 mm[Hg] Abel Sandoval Other [employer] Other 12-26-2022 08:30-0400 SaO2% (BldA) [Mass fraction] 98 % Abel Sandovla Other [employer] Other 12-26-2022 08:30-0400 Systolic blood pressure 148 mm[Hg] Abel Sandoval Other [employer] Other Encounters Encounter Date Encounter Type Care Provider Facility Start: 01-15-2024 End: 01-15-2024 [place] flowsbelkis Stevens MD Work Phone: [facility] Start: 01-15-2024 End: 01-15-2024 Bamboo flowsheet Major Stevens MD Work Phone: [facility] Start: 01-15-2024 End: 01-15-2024 Patient encounter procedure Major Stevens MD Work Phone: [facility] Work Phone: Start: 01-15-2024 End: 01-15-2024 Periodic preventive med est patient 40-64yrs Major Stevens MD Work Phone: [facility] Comment on above: Annual physical exam (Primary Dx); Type 2 diabetes mellitus with hyperglycemia, without long-term current use of insulin ([facility]/HCC); Essential hypertension ([facility]) Start: 01-15-2024 End: 01-15-2024 ambulatory MAJOR STEVENS Not Available Start: 10-17-2023 End: 10-17-2023 ambulatory MAJOR STEVENS Not Available Start: 08-23-2023 End: 08-23-2023 ambulatory IVETTE MONTANO Not Available Start: 08-21-2023 End: 08-21-2023 ambulatory BRITNEY TERESA Not Available Start: 08-16-2023 End: 08-16-2023 ambulatory BRITNEY TERESA Not Available Start: 08-14-2023 End: 08-14-2023 Postop follow up visit related to original px Isha Valentino MD Work Phone: [facility] Comment on above: Postoperative follow -up (Primary Dx) Start: 08-14-2023 End: 08-14-2023 Subsequent hospital visit by physician Rufina [facility] Comment on above: S/P lumbar spinal fu yvette; Scoliosis of thoracolumbar region due to degenerative disease of spine in adult Start: 08-14-2023 End: 08-14-2023 ambulatory ISHA K [facility] Start: 08-13-2023 End: 08-13-2023 ambulatory IVETTE MONTANO Not Available Start: 08-09-2023 End: 08-09-2023 ambulatory BRITNEY TERESA Not Available Start: 08-06-2023 End: 08-06-2023 ambulatory IVETTE MONTANO Not Available Start: 08-02-2023 End: 08-02-2023 ambulatory BRITNEY TERESA Not Available Start: 07-30-2023 End: 07-30-2023 ambulatory BRITNEY TERESA Not Available Start: 07-26-2023 End: 07-26-2023 ambulatory IVETTE MONTANO Not Available Start: 07-16-2023 End: 07-16-2023 ambulatory MAJOR STEVENS Not Available Start: 07-10-2023 End: 07-10-2023 Subsequent hospital visit by physician Rufina [facility]ana X-[facility] 4 [facility] Comment on above: Status post spinal s urgery Start: 07-10-2023 End: 07-10-[address] [facility] Start: 06-11-2023 ambulatory NONE PHYSICIAN Facility :R Start: 06-01-2023 End: 06-06-2023 Evaluation and management of inpatient Isha Valentino MD Work Phone: [facility] [place] 4 Comment on above: Lumbar radiculopathy , right (Primary Dx); Spinal stenosis of lumbar region with neurogenic claudication; Sagittal plane imbalance; Scoliosis of thoracolumbar region due to degenerative disease of spine in adult; Lumbar foraminal stenosis; Lumbar radiculopathy, acute; Lumbar stenosis with neurogenic claudication; Postoperative pain; Constipation due to pain medication; Psoriatic arthritis ([facility]) Start: 05-17-2023 End: 05-18-2023 [facility] Start: 05-17-2023 End: 05-17-2023 ambulatory ISHA K [facility] Start: 05-17-2023 End: 05-17-2023 Encounter for other preprocedural examination ISHA Walton [facility] Start: 05-17-2023 End: 05-17-[address] [facility] Work Phone: Start: 05-17-2023 End: 05-17-2023 Physical examination [facility] Work Phone: Start: 05-17-2023 End: 05-17-2023 Subsequent hospital visit by physician [facility] [id number] Cr Nonv1 Holter/Ecg Resource [facility] Samuel Comment on above: Surgery, elective; Preop testing; Preoperative general physical examination Start: 04-24-2023 End: 04-24-2023 Subsequent hospital visit by physician Rufina Retana X-Ray 4 [facility] Comment on above: Spinal stenosis of l umbar region with neurogenic claudication Start: 04-24-2023 End: 04-24-[address] [facility] Start: 04-24-2023 End: 04-24-[address] [facility] Start: 04-16-2023 End: 04-16-2023 ambulatory MAJOR STEVENS Not Available Start: 04-12-2023 Orders Only Dino kingsley MD Work Phone: [facility] Start: 03-29-2023 End: 03-29-2023 ambulatory [employer] Other [employer] Other Start: 03-29-2023 Telephone encounter [employer] Start: 03-28-2023 End: 03-28-2023 ambulatory [employer] Other [employer] Other Start: 03-28-2023 Office outpatient vi sit 25 minutes Natty Cat [facility] Start: 03-07-2023 End: 03-07-2023 ambulatory MAJOR CHENR Not Available Start: 02-19-2023 End: 02-19-2023 ambulatory Abel Sandoval Other [employer] Other Start: 02-19-2023 Office outpatient vi sit 25 minutes Abel Sandoval [facility] Start: 02-07-2023 (PROC) PROCEDURE Abel Martinez nds [facility] Start: 02-07-2023 End: 02-07-2023 ambulatory Abel Sandoval Facility:[facility] Start: 02-07-2023 End: 02-07-2023 Admission to same day surgery center MD Major Stevens Work Phone: [facility] Work Phone: Start: 02-07-2023 End: 02-07-2023 ambulatory MD Major Stevens Work Phone: [facility] Work Phone: Start: 01-17-2023 (PROC) [facility]EDURE [facility] Start: 01-17-2023 End: 01-17-2023 ambulatory Abel Sandoval Facility:[facility] Start: 01-17-2023 End: 01-17-2023 Admission to same day surgery center MD Major Stevens Work Phone: [facility] Work Phone: Start: 01-17-2023 End: 01-17-2023 ambulatory MD Major Stevens Work Phone: [facility] Work Phone: Start: 12-26-2022 End: 12-26-2022 ambulatory Abel Sandoval Other [employer] Other Start: 12-26-2022 Office outpatient vi sit 25 minutes Abel Sandoval [facility] Start: 12-15-2022 End: 12-15-2022 ambulatory Sully Barney Facility:[facility] Start: 12-15-2022 End: 12-15-2022 Patient encounter procedure MD Major Stevens Work Phone: [facility] [address] Work Phone: Start: 10-25-2022 End: 10-25-2022 ambulatory Abel Sandoval Other [employer] Other Start: 10-25-2022 Telephone encounter Abel Sandoval [facility] Start: 10-16-2022 End: 10-16-2022 ambulatory Abel Sandoval Facility:[facility] Start: 07-19-2022 End: 07-20-[address] TONIA PADILLA Facility:[facility] Start: 04-11-2022 End: 04-12-[address] TONIA PADILLA Facility:[facility] Start: 04-03-2022 End: 04-04-[address] MAJOR STEVENS Facility:[facility] Start: 01-03-2022 End: 01-04-[address] TONIA PADILLA Facility:[facility] Start: 09-15-2021 Encounter for genera l adult medical examination without abnormal findings DR MAJOR STEVENS [facility] Start: 09-13-2021 End: 09-14-[address] MAJOR STEVENS Facility:[facility] Start: 09-13-2021 End: 09-14-2021 Encounter for general adult medical examination without abnormal findings DR MAJOR STEVENS Facility:[facility] Start: 08-24-2021 End: 08-25-[address] TONIA PADILLA Facility:[facility] Procedures Date Procedure Procedure Detail Performing [...] ISHA VALENTINO Start: 06-06-2023 RENAL FUNCTION PANEL ARIADNE ALONSO CHELSY Start: 06-06-2023 Glucose [Mass/volume ] in Serum or Plasma ISHAMARVIN VALENTINO Start: 06-06-2023 End: 06-06-2023 Renal function panel Renetta Ferraro Lisette [employer] Work Phone: Start: 06-05-2023 Glucose [Mass/volume ] in Serum or Plasma ISHA VALENTINO Start: 06-05-2023 Glucose quantitative blood xcpt reagent strip Isha Valentino MD Work Phone: Start: 06-05-2023 Glucose [Mass/volume ] in Serum or Plasma ISHA VALENTINO Start: 06-05-2023 Glucose quantitative blood xcpt reagent strip Isha Valentino MD Work Phone: Start: 06-05-2023 Glucose [Mass/volume ] in Serum or Plasma ISHA VALENTINO Start: 06-05-2023 Glucose quantitative blood xcpt reagent strip Isha Valentino MD Work Phone: Start: 06-05-2023 Glucose [Mass/volume ] in Serum or Plasma ISHA VALENTINO Start: 06-05-2023 Glucose quantitative blood xcpt reagent [...] - Serum or Plasma ISHA VALENTINO Start: 06-04-2023 CBC panel - Blood by [...] Blood by Automated count ISHA VALENTINO Start: 06-02-2023 FIBRINOGEN ISHA ENRIQUEZ Start: 06-02-2023 Magnesium [Mass/volu me] in Serum or Plasma ISHA VALENTINO Start: 06-02-2023 RENAL FUNCTION PANEL ARIADNE VALENTINO Start: 06-02-2023 Renal function panel Se nic Johnson MD Work Phone: Start: 06-01-2023 FULL CODE ISHA ENRIQUEZ Start: 06-01-2023 CBC panel - Blood by Automated count ISHA VALENTINO Start: 06-01-2023 FIBRINOGEN ISHAMARVIN ENRIQUEZ Start: 06-01-2023 Magnesium [Mass/volu me] in Serum or Plasma ISHAMARVIN VALENTINO Start: 06-01-2023 PULSE OXIMETRY, CONTINUOUS ISHAMARVIN DYSONMICHAEL Start: 06-01-2023 ADMIT TO INPATIENT [facility] KARISMICHAEL Start: 06-01-2023 Glucose [Mass/volume ] in Serum or Plasma ISHAMARVIN DYSONMICHAEL Start: 06-01-2023 End: 06-01-2023 Assay of magnesium Terrell Johnson MD Work Phone: Start: 06-01-2023 FL FLUORO IMAGES NO CHARGE ISHA VALENTINO Start: 06-01-2023 PULSE OXIMETRY, CONTINUOUS Kal Bacon MD Work Phone: Start: 06-01-2023 Glucose quantitative blood xcpt reagent strip Isah Valentino MD Work Phone: Start: 06-01-2023 End: 06-01-2023 XR tomography Unspecified body region Terrell Johnson MD Work Phone: Start: 06-01-2023 End: 06-01-2023 Chloride bld Carol T Rosi'Shalonda CA A Work Phone: Start: 06-01-2023 PREPARE RBC ISHAMARVIN ENRIQUEZ Start: 06-01-2023 VERAB/VERIFY ABORH [facility] KARIS[facility] Start: 06-01-2023 BLOOD GAS ARTERIAL F ULL PANEL [facility] Start: 06-01-2023 Chloride bld Carol T O'Shalonda CAA Work Phone: Start: 06-01-2023 PREPARE RBC Carol T O'Shalonda CAA Work Phone: Start: 06-01-2023 IOM ISHAMARVIN ENRIQUEZ Start: 06-01-2023 VERAB/VERIFY ABORH Marzena een T O'Shalonda CAA Work Phone: Start: 06-01-2023 Glucose [Mass/volume ] in Serum or Plasma ISHA KARISZOE Start: 06-01-2023 End: 06-01-2023 Arthdsis post/posterolatrl/postinter body lumbar Isha Valentino MD Work Phone: Start: 06-01-2023 Glucose quantitative blood xcpt reagent strip Isha Valentino MD Work Phone: Start: 05-18-2023 ECG 12-LEAD ISHAMARVIN [facility]ON [facility] Start: 05-18-2023 Ecg routine ecg w/le ast 12 lds trcg only w/o i&r Lama Ewelina COPELAND Work Phone: Start: 05-17-2023 Basic metabolic 2000 panel - Serum or Plasma [facility] Start: 05-17-2023 CBC panel - Blood by Automated count ISHAMARVIN DYSONMICHAEL Start: 05-17-2023 TYPE AND SCREEN [facility] Start: 05-17-2023 STAPHYLOCOCCUS AUREU S/MRSA COLONIZATION, CULTURE [facility] Start: 05-17-2023 REQUEST FOR PRE-ADMI SSION TESTING VISIT ISHAMARVIN DYSONMICHAEL Start: 04-24-2023 CASE REQUEST OPERATING ROOM ISHAMARVIN DYSONMICHAEL Start: 04-24-2023 Hemoglobin A1c/Hemoglobin.total in Blood ISHA KARISMICHAEL Start: 04-24-2023 XR SCOLIOSIS 2 VIEW (NON EOS) [facility] Start: 02-07-2023 Local anesthetic sac ral epidural block MD Major Stevens Work Phone: Start: 01-17-2023 Injection of local anesthetic into sacroiliac joint MD Major Stevens Work Phone: Start: 12-15-2022 MR lumbar spine wo con MD Major Stevens Work Phone: Start: 09-13-[address] JOSHUA PADILLA Comment on above: Performed By: #### A 1C #### [facility] [address] [place] [address] Dr. Mariann Odom Start: 10-02-2014 Colonoscopy Major winkler MD Work Phone: Plan of Treatment Date Care Activity Detail Author Start: 10-17-2024 Urine screening for protein Diabetes: Urine Protein Screening [facility] Start: 10-02-2024 Screening for malign ant neoplasm of colon [facility] Start: 07-16-2024 End: 07-16-2024 Patient encounter procedure 07/16/2024 9:00 AM EDT Office Visit [facility] [address] [place] [address] Major Stevens MD [address] [place] [phone] [facility] Start: 07-13-2024 Glaucoma screening Diabetes: R etinopathy Screening [facility] Start: 04-19-2024 Hemoglobin A1c measurement Diabetes: Hemoglobin A1C [facility] Start: 01-15-2024 End: 01-15-2024 Patient encounter procedure 01/15/2024 9:00 AM EDT Office Visit [facility] [address] [place] [address] Major Stevens MD [address] [place] [phone] Arrived [facility] Comment on above: Arrived Start: 11-25-2023 Influenza vaccination [facility] Start: 10-11-2023 Urine screening for protein Diabetes: Urine Protein Screening [facility] Start: 07-24-2023 Hemoglobin A1c measurement Diabetes: Hemoglobin A1C [facility] Start: 07-10-2023 End: 07-10-2023 Patient encounter procedure 07/10/2023 11:40 AM EDT Office Visit [facility] Vargas [address] [place] [phone] [place] [id number] [address] Department [place] [address] [facility] Hamlin Start: 06-13-2023 End: 06-13-2023 Clinical Support 06/13/2023 10:45 AM EDT Clinical Support [facility] [address] [address] [facility] 5th [place] [address] [facility] Start: 06-01-2023 End: 06-01-2023 Admission to same day surgery center 06/01/2023 7:15 AM EST - 06/01/2023 12:55 PM EST Surgery [facility] [place] [address] [address] [place] [address] [place] [address] [address] Department [place] [address] L4-5 and L5-S1 transforaminal lumbar interbody fusion with placement of interbody cage with decompression L3-4 posterior column osteotomy with L2-3 laminectomy and facetectomy and L2-S1 instrumented fusion using local bone autograft and BMP with pelvic fixation. [42678 (CPT )] [facility] [place] Comment on above: L4-5 and L5-S1 trans foraminal lumbar interbody fusion with placement of interbody cage with decompression L3-4 posterior column osteotomy with L2-3 laminectomy and facetectomy and L2-S1 instrumented fusion using local bone autograft and BMP with pelvic fixation. [90813 (CPT )] Start: 06-01-2023 End: 06-01-2023 Arthdsis [...] physician 06/01/2023 5:45 AM EST Hospital Encounter [facility] [place] [address] [place] [address] [place] [address] [address] Department [place] [address] [facility] [place] Start: 04-17-2023 End: 04-17-2023 Patient encounter procedure 04/17/2023 9:00 AM EST Office Visit [facility] [address] [place], [place] [phone] Dino Villa MD [address] [place], [place] [phone] [facility] Start: 04-12-2023 End: 04-12-2024 DOWNLOAD POWERSHARE IMAGES TO [email or web address] DOWNLOAD P[employer]SHARE IMAGES TO [email or web address] Imaging Routine Back pain, unspecified back location, unspecified back pain laterality, unspecified chronicity Expected: 04/12/2023, Expires: 04/12/2024 [employer] Work Phone: Comment on above: Expected: 04/12/2023 , Expires: 04/12/2024 Start: 02-07-2023 [facility] Start: 01-17-2023 [facility] Start: 11-24-2022 COVID-19 Vaccine ( season) COVID-19 Vaccine ( season) [facility] Start: 11-24-2022 Influenza vaccination Influenza Vacc ine (#1) [facility] Start: 2022 RSV patient s and/or patients aged 60+ years (1 - 1-dose 60+ series) RSV patients and/or patients aged 60+ years (1 - 1-dose 60+ series) [facility] Start: 2022 RSV vaccine (optiona l 60+ years) RSV vaccine (optional 60+ years) [facility] Start: 09-30-2020 COVID-19 Vaccine (2 - Bev risk series) COVID-19 Vaccine (2 - Bev risk series) [facility] Start: 2012 Shingles (RZV) Vacci ne (1 of 2) Shingles (RZV) Vaccine (1 of 2) [facility] Start: 2012 Zoster Vaccines (1 of 2) Zoster Vacc mary (1 of 2) [facility] Start: 2007 Screening for malign ant neoplasm of colon [facility] Start: 1997 Lipid panel Cholesterol [facility] Start: 1984 DTaP/Tdap/Td Vaccine s (1 - Tdap) DTaP/Tdap/Td Vaccines (1 - Tdap) [facility] Start: 1981 Urine screening for protein Diabetes: Urine Protein Screening [facility] Start: 1981 Zoster Vaccines (1 of 2) Zoster Vacc mary (1 of 2) [facility] Start: 1980 Hepatitis C screening [facility] Start: 1980 Tetanus + diphtheria + acellular pertussis vaccine (product) Tdap Booster [facility] Start: 1977 HIV screening HIV Test [facility] Start: 1972 Diabetic foot examination Diabetes: Foot Exam [facility] Start: 1972 Glaucoma screening Diabetes: R etinopathy Screening [facility] Start: 1968 Pneumococcal Vaccine : Pediatrics (0 to 5 Years) and At-Risk Patients (6 to 64 Years) (1 - PCV) Pneumococcal Vaccine: Pediatrics (0 to 5 Years) and At-Risk Patients (6 to 64 Years) (1 - PCV) [facility] Start: 1968 Pneumococcal Vaccine : Pediatrics (0 to 5 Years) and At-Risk Patients (6 to 64 Years) (1 of 2 - PCV) Pneumococcal Vaccine: Pediatrics (0 to 5 Years) and At-Risk Patients (6 to 64 Years) (1 of 2 - PCV) [facility] Start: 1963 MMR Vaccines (1 of 1 - Standard series) MMR Vaccines (1 of 1 - Standard series) [facility] Start: 1962 HIV screening HIV Screening [facility] Start: 1962 Lipid panel Lipid Panel [facility] Start: 1962 Screening for malign ant neoplasm of colon [facility] Start: 1962 Yearly Adult Physical Yearly Adult P hysical [facility] Arthdsis post/posterolatrl/postin terbody lumbar Fusion Spine Transforaminal Interbody Lumbar with Navigation Spinal stenosis of lumbar region with neurogenic claudication Sagittal plane imbalance Scoliosis of thoracolumbar region due to degenerative disease of spine in adult Lumbar foraminal stenosis Lumbar radiculopathy, acute Lumbar stenosis with neurogenic claudication [facility] Work Phone: End: 06-01-2023 Glucose [Mass/volume] in Serum or Plasma [facility] Service Area Work Phone: Comment on above: Once (Lab) for 1 Occ urrences starting 06/01/2023 until 06/01/2023 As needed (Lab) unti l discontinued starting 06/01/2023 End: 06-01-2023 Incentive spirometry Instruct Incentive spirometry Instruct Respiratory Care Routine Once for 1 Occurrences starting 06/01/2023 until 06/01/2023 [facility] Work Phone: Comment on above: Once for 1 Occurrenc es starting 06/01/2023 until 06/01/2023 End: 06-01-2023 Interoperative monitoring - IOM Interoperative monitoring - IOM Neurology Routine Once for 1 Occurrences starting 06/01/2023 until 06/01/2023 [facility] Work Phone: Comment on above: Once for 1 Occurrenc es starting 06/01/2023 until 06/01/2023 Patient Education Lori Non Diagn ostic Block [facility] Work Phone: Patient referral [facility] Work Phone: End: 06-01-2023 Pulse oximetry, continuous Pulse oximetry, continuous Respiratory Care Routine Continuous until discontinued starting 06/01/2023 [facility] Service Area Work Phone: Comment on above: Continuous until dis continued starting 06/01/2023 End: 06-02-2023 Pulse oximetry, continuous Pulse oximetry, continuous Respiratory Care Routine Continuous until discontinued starting 06/02/2023 [facility] Work Phone: Comment on above: Continuous until dis continued starting 06/02/2023 End: 06-07-2023 Renal function 2000 panel - Serum or Plasma Renal function panel Lab Routine Morning draw (Lab) for 1 Occurrences starting 06/07/2023 until 06/07/2023 [facility] Work Phone: Comment on above: Morning draw (Lab) f or 1 Occurrences starting 06/07/2023 until 06/07/2023 End: 06-02-2023 Urethral Catheter Removal Urethral Catheter Removal Procedures Routine Once for 1 Occurrences starting 06/02/2023 until 06/02/2023 [facility] Work Phone: Comment on above: Once for 1 Occurrenc es starting 06/02/2023 until 06/02/2023 End: 04-24-2023 X-ray scoliosis 2 View (NON EOS) [facility] Service Area Work Phone: Comment on above: Once for 1 Occurrenc es starting 04/24/2023 until 04/24/2023 End: 07-10-2023 X-ray scoliosis 2 View (NON EOS) [facility] Service Area Work Phone: Comment on above: Once for 1 Occurrenc es starting 07/10/2023 until 07/10/2023 End: 08-14-2023 X-ray scoliosis 2 View (NON EOS) [facility] Service Area Work Phone: Comment on above: Once for 1 Occurrenc es starting 08/14/2023 until 08/14/2023 Immunizations Immunization Date Immunization Notes Care Provider Lisandra cardoso 01-19-2016 influenza, injectable,quadrivalen t, preservative free, pediatric Abel Sandoval Other [employer] Other 01-19-2016 influenza virus vaccine, unspecified formulation [address] Work Phone: 01-06-2015 influenza, injectable,quadrivalen t, preservative free, pediatric Abel Sandoval [employer] Other Payers Date Payer Category Payer Unknown [facility] [id number] 2023-Present PPO [id number] 2022 Self-pay [id number] 1989 Private Health Insurance [id number] .[id number] 1962 Unknown [id number] 2.16.840.1.679658.3.579.2 .593 1962 Unknown [id number] 2.16.840.1.348624.3.579.2 .593 1962 Unknown [id number] 2.16.840.1.040308.3.579.2 .593 1962 Unknown [id number] 2.16.840.1.028210.3.579.2 .593 1962 Unknown [id number] 2.16.840.1.137348.3.579.2 .593 1962 Unknown [id number] 2.16.840.1.368923.3.579.2 .593 1962 Unknown [id number] 2.16.840.1.129410.3.579.2 .627 1962 Unknown [id number] 2.16.840.1.160695.3.579.2 .627 1962 Unknown [id number] 2.16.840.1.749811.3.579.2 .1242 1962 Unknown [id number] 2.16.840.1.798586.3.579.2 .1242 1962 Unknown [id number] 2.16.840.1.381499.3.579.2 .1242 1962 Unknown [id number] 2.16.840.1.441345.3.579.2 .1242 1962 Unknown [id number] 2.16.840.1.976271.3.579.2 .124 1962 Unknown [id number] 2.16.840.1.610673.3.579.2 .124 1962 Unknown [id number] 2.16.840.1.942947.3.579.2 .1244 1962 Unknown [id number] 2.16.840.1.768955.3.579.2 .5 1962 Unknown [id number] 2.16.840.1.451431.3.579.2 .1244 1962 Unknown [id number] 2.16.840.1.682987.3.579.2 .1245 1962 Unknown [id number] 2.16.840.1.764459.3.579.2 .1258 1962 Unknown [id number] 2.16.840.1.839050.3.579.2 .9 1962 Unknown [id number] 2.16.840.1.569864.3.579.2 .1258 1962 Unknown [id number] 2.16.840.1.755025.3.579.2 .1259 1962 Unknown [id number] 2.16.840.1.115448.3.579.2 .1258 1962 Unknown [id number] 2.16.840.1.272261.3.579.2 .9 1962 Unknown [id number] 2.16.840.1.019972.3.579.2 .1259 1962 Unknown [id number] 2.16.840.1.437213.3.579.2 .1259 1962 Unknown [id number] 2.16.840.1.776152.3.579.2 .1259 1962 Unknown [id number] 2.16.840.1.909190.3.579.2 .1259 1962 Unknown [id number] 2.16.840.1.512176.3.579.2 .1259 1962 Unknown [id number] 2.16.840.1.893763.3.579.2 .1259 1962 Unknown [id number] 2.16.840.1.419275.3.579.2 .1259 1962 Unknown [id number] 2.16.840.1.207458.3.579.2 .1259 1959 Unknown [id number] Unknown [id number] Unknown [id number] 2.16.840.1.840674.3.579.2 .531 Unknown [id number] 2.16.840.1.183955.3.579.2 .531 Unknown [id number] 2.16.840.1.270629.3.579.2 .531 Unknown [id number] 2.16.840.1.615133.3.579.2 .531 Social History Date Type Detail Facility Start: 02-28-2023 End: 05-17-2023 Sex Assigned At [facility] Start: 1960 Sex Assigned At Male F [facility] Tobacco smoking stat us ARIS Tobacco smoking consumption unknown [facility] Start: 1960 Sex Assigned At [facility] Start: 04-14-2023 End: 08-14-2023 Exposure to SARS-CoV-2 (event) Not sure [facility] Start: 03-07-2023 End: 05-10-2023 Tobacco smoking status NHIS Never smoked tobacco [facility] Start: 03-07-2023 End: 05-10-2023 Tobacco use and exposure Smokeless tobacco non-user [facility] Work Phone: Start: 05-17-2023 End: 01-15-2024 Alcohol intake Ex-drinker (finding) [facility] Work Phone: Start: 02-28-2023 End: 05-17-2023 History of Social function [facility] How often to you hav e a drink containing alcohol? Never [facility] How many standard drinks containing alcohol do you have on a typical day? Patient does not drink [facility] Work Phone: In the past 12 month s, was there a time when you were not able to pay the mortgage or rent on time? No [facility] Work Phone: Are you now , , , , never or living with a partner? [facility] How hard is it for y ou to pay for the very basics like food, housing, medical care, and heating Not very hard [facility] Do you feel stress - tense, restless, nervous, or anxious, or unable to sleep at night because your mind is troubled all the time - these days [OSQ] Not at all [facility] (I/We) worried wheth er (my/our) food would run out before (I/we) got money to buy more. Never true [facility] Start: 10-30-2022 Alcohol Comment caffeine: soda , chocolate [facility] Medical Equipment Procedure Code Equipment Code Equipment Origin al Text Equipment Identifier Dates Modulus Tlif-A,[id number] Degree [id number] Start: 06-01-2023 Comment on above: Description: Per lyly l only jdr 06/03 Moduls Tlif- [id number] Degree [id number] Start: 06-01-2023 Comment on above: Description: Per lyly l only jdr 06/03 Infuse Bmp Small - [id number] - [id number] Start: 06-01-2023 Screw, Reline Lock, 5.5mm Open Tulip - [id number] Start: 06-01-2023 Screw, Reline-O, 7.5x50mm 2s Polyaxial - [id number] Start: 06-01-2023 Reline-O Conn, 5-6/5-6mm O-O Med - [id number] Start: 06-01-2023 Screw, Reline-O, 8.5x50mm 2s Polyaxial - [id number] Start: 06-01-2023 Screw, Reline-O, 8.5x80mm 2s Poly Iliac - [id number] Start: 06-01-2023 Screw, Reline-O, 6.5x45mm 2s Polyaxial - [id number] Start: 06-01-2023 Screw, Reline-O, 7.5x45mm 2s Polyaxial - [id number] Start: 06-01-2023 Unid Exp Ti Jaren 5.5mm 4+ Lv [id number] Start: 06-01-2023 20mm Offset Open [id number] Start: 06-01-2023 Comment on above: Description: Per lyly l only jdr 06/03 USE DIRECTED ONCE DAILY [id number] Start: 09-06-2023 Goals Date Patient Goal Desired Activity /State Personal health goal Clinical Notes 12-26-2022 to 01-15-2024 Major Stevens MD - 01/15/2024 9:23 AM Julee Stevens MD - 01/15/2024 9:23 AM Julee Stevens MD - 01/15/2024 9:23 AM Julee Stevens MD - 01/15/2024 9:00 AM EDT Note Date & Type Note Facility 01-15-2024 History of Present illness Narrative Associated Problem(s): Essential hypertension (CMS/HCC) BP improved and monitor PRN. Associated Problem(s): Type 2 diabetes mellitus with hyperglycemia, without long-term current use of insulin (CMS/HCC) Reports BS controlled and last A1C 6.3. Stick to ADA diet and limit carbs. Associated Problem(s): Annual physical exam Reviewed labs. Discussed proper diet and regular aerobic exercise. Need aerobic exercise 5-6 days a week for 30 minutes at a time. Smaller portions and limit total calories. Colonoscopy every 10 years. Tetanus every 10 years. Advised not to smoke. Discussed daily Aspirin therapy. Images from the original note were not included. Subjective Patient ID: Lobito Tomlin is a 63 y.o. male who presents for Annual Exam (States he's here for an annual exam/Everything is going good ). Presents for annual PE. Patient feels well today. Weight down 11 pounds in the past year. Tries to stay active and walk several days a week. Tries to watch diet and eat healthy. Increased fruits and vegetables. Smaller portions and limits snacking. Tries to limit total daily calories. Labs drawn in September. BS controlled and average 97. Tries to stick to ADA diet and limit carbs. Denies signs of elevated BS such as polyuria, polyphagia or polydipsia. Not checking BP away from office and slightly elevated today. Taking medication daily and tolerating without side effects. Review of Systems Constitutional: Negative for fatigue. Respiratory: Negative for cough, shortness of breath and wheezing. Cardiovascular: Negative for chest pain and palpitations. Gastrointestinal: Negative for abdominal pain, diarrhea, nausea and vomiting. Genitourinary: Negative for dysuria. Objective Physical Exam Constitutional: General: He is not in acute distress. Appearance: Normal appearance. HENT: Head: Normocephalic. Right Ear: Tympanic membrane and ear canal normal. Left Ear: Tympanic membrane and ear canal normal. Eyes: Extraocular Movements: Extraocular movements intact. Pupils: Pupils are equal, round, and reactive to light. Cardiovascular: Rate and Rhythm: Normal rate and regular rhythm. Heart sounds: No murmur heard. No friction rub. No gallop. Pulmonary: Breath sounds: Normal breath sounds. No wheezing, rhonchi or rales. Abdominal: General: Bowel sounds are normal. There is no distension. Palpations: Abdomen is soft. Tenderness: There is no abdominal tenderness. There is no guarding or rebound. Musculoskeletal: General: Normal range of motion. Left lower leg: No edema. Neurological: General: No focal deficit present. Mental Status: He is alert. Cranial Nerves: No cranial nerve deficit. Deep Tendon Reflexes: Reflexes normal. Assessment/Plan Problem List Items Addressed This Visit Type 2 diabetes mellitus with hyperglycemia, without long-term current use of insulin ([facility]) Reports BS controlled and last A1C 6.3. Stick to ADA diet and limit carbs. Essential hypertension ([facility]) BP improved and monitor PRN. Annual physical exam - Primary Reviewed labs. Discussed proper diet and regular aerobic exercise. Need aerobic exercise 5-6 days a week for 30 minutes at a time. Smaller portions and limit total calories. Colonoscopy every 10 years. Tetanus every 10 years. Advised not to smoke. Discussed daily Aspirin therapy. documented in this encounter [facility] 08-14-2023 History of Present illness Narrative I just had the pleasure of seeing Mr. Tomlin back in the Neurosurgery Spine Clinic at the [facility]. He is a very pleasant 63 -year-old male, who recently underwent a L2-S1 Fusion with me on 06/01/2023 and is almost 3 months out from his surgery. Mr. Tomlin is doing well from his surgery. He [...] was a pleasure to participate in Mr. Tomlin care. All questions were answered to the patients satisfaction and he explained understanding of the further treatment plan. Isha Valentino MD, [facility], FAANS Director - Minimally Invasive Spine Surgery [facility] Trend Investigator of Neurological Surgery [employer] [facility] [employer] [place], [place] ---Some of this note was completed using [employer] voice recognition technology and sometimes the software misinterprets words. This may include unintended errors with respect to translation of words, typographical errors or grammar errors which may not have been identified prior to finalization of the chart note. Please take this into account when reading this note--- documented in this encounter [facility] Work Phone: 06-06-2023 Hospital course Narrative [...] Provider Department Center 06/13/2023 10:45 AM NEUROSURGERY [facility] NURSE [id number] Academic 07/10/2023 11:40 AM Isha Valentino MD [id number] [facility] ELIECER Hernandez documented in this encounter [facility] Work Phone: 06-06-2023 History of Present illness Narrative Physical Therapy Physical Therapy Treatment Patient Name: Lobito Tomlin Today's Date: 06/06/2023 Time Calculation Start Time: 1509 Stop Time: 1533 Time Calculation (min): 24 min Assessment/Plan PT [...] (none) End of Session Communication: Bedside nurse, Director Of Casino, Physician Assessment Comment: 63 yo male with [...] steps (consecutively) with 1 rail and min BISQUE KILN DRAWER, 1 step at a time) Outcome Measures: [facility] Basic Mobility Turning from your back to [...] 06/06/23 Expected End: 06/20/23 Pain - Adult Lobito Tomlin is a 63 y.o. male on day [...] mod -intensity by pt/ot referral sent to [facility] which is the Foc of patient Lobito Tomlin is a 63 y.o. male on day [...] Physical Therapy Physical Therapy Treatment Patient Name: Lobito Tomlin Today's Date: 06/04/2023 Time Calculation Start Time: 1417 Stop Time: 1440 Time Calculation (min): 23 [...] hand placement Stairs Stairs: No Outcome Measures: [facility] Basic Mobility Turning from your back to [...] snf choices medically ready 2-days Status-Inpatient Payer- [facility] Potential Barriers: None ADOD: 06/07/2023 Patricio Salas RN TCC [phone] Lobito Tomlin is a 63 y.o. male on day [...] Oral pain meds No uprights PTOT-SNF Reji Bacno MD Associated attestation - Isha Valentino MD - 06/04/2023 1:00 PM EDT Vitals Stable. NO new Neurological deficits. Plan: OOB to chair and/or ambulate Incentive Spirometry DVT prophylaxis PT-OT Aggressive bowel regimen Occupational Therapy Evaluation Patient Name: Lobito Tomlin Today's Date: 06/03/2023 Time Calculation Start Time: [...] Shower/Tub: Tub/shower unit Prior Function: Level of [place]: Independent with ADLs and functional transfers, Independent with homemaking with ambulation ADL Assistance: Independent Homemaking Assistance: Independent Ambulatory Assistance: Independent Vocational: (works for [employer]) Leisure: enjoys going to [employer] games Hand Dominance: Right Prior Function Comments: [...] prior to surgery 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 male on day 2 of admission presenting with Lumbar radiculopathy, right. Subjective PATIENT DOING WELL Objective Physical Exam BUE 5/5 BLE 5/5 SILT Last Recorded Vitals Blood pressure 117/67, [...] Physical Therapy Evaluation & Treatment Patient Name: Lobito Tomlin Today's Date: 06/02/2023 Time Calculation Start Time: [...] Prior Function Per Pt/Caregiver Report Level of [place] Gap: Independent with ADLs and functional transfers, Independent [...] verbal cues, Moderate tactile cues Outcome Measures: [facility] Basic Mobility Turning from your back to [...] Occupational Therapy Therapy Communication Note Patient Name: Lobito Tomlin Today's Date: 06/02/2023 Discipline: Occupational Therapy Missed Visit Reason: (Hold OT eval this date per RN; RN reports pt up in chair this AM and with increased discomfort- required assist from RN to return supine /pt not feeling well and with pale appearance. Will re-attempt as schedule permits.) Missed Time: Attempt Ely Abdullahi (OTR/L, OTD) Inpatient Occupational Therapist Rehab Office: [phone] Acute Pain Service Postop Pain HPI - Palliative: relieved with IV analgesics and regional local anesthetics Provocative: movement Quality: burning and aching Radiation: none Severity: 08/02 Timing: constant 24-HOUR OPIOID CONSUMPTION: DIGITIZER OPERATOR hydromorphone 0.8mg Hydromorphone 1mg Oxycodone 10mg Scheduled [...] Fibrinogen 195 (L) 200 - 400 mg/dL Lobito Tomlin is a 63 y.o. year old male [...] per [place] [phone] ph [phone] Associated attestation - Amada Palomino MD - 06/04/2023 9:13 AM EDT I personally saw the patient, evaluate and reviewed labs. I argeed with resident's plan. Lobito Tomlin is a 63 y.o. male on day 1 of admission presenting with Lumbar radiculopathy, right. Subjective PATIENT DOING WELL Objective Physical Exam BUE 07/28 BLE 07/28 SILT Last Recorded Vitals Blood pressure 145/75, [...] will plan for downgrade Maintain drain Dc DIGITIZER OPERATOR/menezes No uprights AM labs PTOT-OK to work with patient with no restrictions Donato Currie MD Pharmacy Medication History Review Lobito Tomlin is a 63 y.o. male who is planned to be admitted for No Principal Problem: There is no principal problem currently on the Problem List. Please update the Problem List and refresh.. Pharmacy called the patient prior to their scheduled procedure and reviewed the patient's [id number] medications for accuracy. Medications ADDED: Acetaminophen 500mg [...] Below are additional concerns with the patient's HELPER COORDINATOR list. none Morena Curtis [facility] Please reach out via Secure Chat for questions documented in this encounter [facility] Work Phone: 06-06-2023 Plan of care [...] barriers include getting rest premedicating for activities. [facility] 06-06-2023 Miscellaneous Notes Problem: Pain Goal: [...] (B) Operative Note Date: 06/01/2023 OR Location: [facility] OR Name: Lobito Tomlin, : 1960, Age: 63 y.o., , Sex: [...] Surgeons * Isha Valentino - Primary Resident/Fellow/Other Shell Maker Lockstitch: Surgeon(s) and Role: * Terrell Johnson MD - Resident - Assisting * Barb Putnam MD - Fellow MEDICATIONS: Antibiotic prophylaxis given within one hour prior to skin incision. PROPHYLAXIS: Venous thromboembolism prophylaxis was ordered at the time of surgery in the form of mechanical prophylaxis using sequential compression devices. INDICATION: Mr. Tomlin is a 63 y.o. male who presented [...] performed and the images transferred to the Selero system for use in intraoperative image-guided computer-assisted [...] caps and final tightened using the torque driver retraining instructor and counter-torque.A third supporting jaren was placed on the left side using a [id number] connector between L2 and L3 level and [...] procedure. Isha Valentino Date: 06/01/2023 OR Location: [facility] OR Name: Lobito Tomlin, : 1960, Age: 63 y.o., , Sex: [...] bone autograft and BMP with pelvic fixation. 00611 - NH ARTHRODESIS COMBINED TQ 1NTRSPC LUMBAR NH OSTEOTOMY SPINE PST/PSTLAT APPR 1 VRT SGM LMBR [58053] NH ARTHRODESIS PST/PSTLAT TQ 1NTRSPC EA ADDL NTRSPC [38870] NH STACK FACETECTOMY & FORAMOTOMY 1 VRT SGM LUMBAR [96170] NH POSTERIOR SEGMENTAL INSTRUMENTATION 3-6 VRT SEG [24002] NH PELVIC FIXATION OTHER THAN SACRUM [65567] NH ALLOGRAFT FOR SPINE SURGERY ONLY MORSELIZED [] NH AUTOGRAFT SPINE SURGERY LOCAL FROM SAME INCISION [] NH STEREOTACTIC COMPUTER ASSISTED PX SPINAL [47950] NH INSJ BIOMCHN DEV INTERVERTEBRAL DSC SPC W/ARTHRD [65654] NH ARTHRODESIS CMBN TQ 1NTRSPC EACH ADDITIONAL [79224] Surgeons * Isha Valentino - Primary Resident/Fellow/Other Shell Maker Lockstitch: Surgeon(s) and Role: * Terrell Johnson MD - Resident - Assisting * Barb Putnam MD - Fellow Procedure Summary Anesthesia: General ASA: III Anesthesia Staff: Anesthesiologist: MD Kalia Diaz-AA: SHERRI Carter MANDIE: Lucian Dunne Estimated Blood [...] 490 mL Specimen: No specimens collected Staff: Renewal Specialist: Levi Gonzales RN; Kimberli Hastings RN Scrub [...] scheduled follow up. documented in this encounter [facility] Work Phone: 06-05-2023 Plan of care [...] address these barriers include use call light. [facility] Work Phone: 06-03-2023 Plan of care [...] medication is given according to the order. [facility] Work Phone: 06-01-2023 Note Formatting of this n ote might be different from the original. Agree with prior nurse assessment. Labs sent. [facility] 06-01-2023 Note Formatting of this n ote is different from the original. L4-5 and L5-S1 transforaminal lumbar interbody fusion with placement of interbody cage with decompression L3-4 posterior column osteotomy and L2-S1 instrumented fusion using local bone autograft and BMP with pelvic fixation. (B) Operative Note Date: 06/01/2023 OR Location: [facility] OR Name: Lobito Tomlin, : 1960, Age: 63 y.o., , Sex: [...] Surgeons * Isha Valentino - Primary Resident/Fellow/Other Shell Maker Lockstitch: Surgeon(s) and Role: * Terrell Johnson MD - Resident - Assisting * Barb Putnam MD - Fellow MEDICATIONS: Antibiotic prophylaxis given within one hour prior to skin incision. PROPHYLAXIS: Venous thromboembolism prophylaxis was ordered at the time of surgery in the form of mechanical prophylaxis using sequential compression devices. INDICATION: Mr. Tomlin is a 63 y.o. male who presented [...] performed and the images transferred to the Selero system for use in intraoperative image-guided computer-assisted [...] caps and final tightened using the torque driver retraining instructor and counter-torque.A third supporting jaren was placed on the left side using a [id number] connector between L2 and L3 level and [...] marino portions of the procedure. Isha Valentino [facility] Work Phone: 06-01-2023 Note Formatting of this n ote is different from the original. Date: 06/01/2023 OR Location: [facility] OR Name: Lobito Tomlin, : 1960, Age: 63 y.o., , Sex: [...] bone autograft and BMP with pelvic fixation. 27045 - NH ARTHRODESIS COMBINED TQ 1NTRSPC LUMBAR NH OSTEOTOMY SPINE PST/PSTLAT APPR 1 VRT SGM LMBR [00730] NH ARTHRODESIS PST/PSTLAT TQ 1NTRSPC EA ADDL NTRSPC [77539] NH STACK FACETECTOMY & FORAMOTOMY 1 VRT SGM LUMBAR [09159] NH POSTERIOR SEGMENTAL INSTRUMENTATION 3-6 VRT SEG [74543] NH PELVIC FIXATION OTHER THAN SACRUM [03034] NH ALLOGRAFT FOR SPINE SURGERY ONLY MORSELIZED [48977] NH AUTOGRAFT SPINE SURGERY LOCAL FROM SAME INCISION [34897] NH STEREOTACTIC COMPUTER ASSISTED PX SPINAL [88671] NH INSJ BIOMCHN DEV INTERVERTEBRAL DSC SPC W/ARTHRD [23450] NH ARTHRODESIS CMBN TQ 1NTRSPC EACH ADDITIONAL [07677] Surgeons * Isha Valentino - Primary Resident/Fellow/Other Shell Maker Lockstitch: Surgeon(s) and Role: * Terrell Johnson MD [...] 490 mL Specimen: No specimens collected Staff: Renewal Specialist: Levi Gonzales RN; Kimberli Hastings RN Scrub Person: Lucian Castillo; Sam Khan Findings: excellent correction Complications: None; patient tolerated the procedure well. Disposition: PACU - hemodynamically stable. Condition: stable Specimens Collected: No specimens collected Attending Attestation: Isha Valentino [facility] Work Phone: 06-01-2023 Consult note Formatting of th is note is different from the original. Consults Acute Pain Service Lobito Tomlin is a 63 y.o. year old male [...] aching Radiation: typically none Severity: typically severe 8-10/10 Timing: typically constant Past Medical History: Diagnosis Date Arthritis F/W Rheumatologis, on Methotrexate Chronic pain disorder COVID-1 recovererd Diabetes mellitus ([facility]) F/W PCP Hemoglobin A1c 8.0% or greater 03/08/2023 Last A1c=8.2, jardiance was added. Hypertension F/W PCP, not taking any medications Low back pain August 2018 Lumbar spondylosis Peripheral neuropathy bilateral feet R>L PONV (postoperative nausea and vomiting) Spinal stenosis scheduled for surgery with Dr. Valentino on 06/01/2023 Type 2 diabetes mellitus ([facility]) September 2008 Vision loss wears glasses Past Surgical History: Procedure Laterality Date COLONOSCOPY OTHER SURGICAL HISTORY right knee arthroscopy x2 Family History Problem Relation Name Age of Onset Aortic aneurysm Mother Cancer Father Bhavik Tomlin Stroke Brother Bhavik Tomlin Social History Socioeconomic History Marital status: Spouse [...] POCT Glucose 99 74 - 99 mg/dL Lobito Tomlin is a 63 y.o. year old male [...] per primary [place] [phone] ph [phone] Associated attestation - Amada Palomino MD - 06/01/2023 10:58 AM EST I personally saw the patient, discussed risks and benefits, answered all questions, reviewed the chart and agree with the resident's plan. [facility] Work Phone: 06-01-2023 Consult note Formatting of th is note is different from the original. Consults Acute Pain Service Lobito Tomlin is a 63 y.o. year old male [...] aching Radiation: typically none Severity: typically severe 8-10/10 Timing: typically constant Past Medical History: Diagnosis Date Arthritis F/W Rheumatologis, on Methotrexate Chronic pain disorder COVID-2020 recovererd Diabetes mellitus (CMS/HCC) F/W PCP Hemoglobin A1c 8.0% or greater 03/08/2023 Last A1c=8.2, jardiance was added. Hypertension F/W PCP, not taking any medications Low back pain August 2018 Lumbar spondylosis Peripheral neuropathy bilateral feet R>L PONV (postoperative nausea and vomiting) Spinal stenosis scheduled for surgery with Dr. Valentino on 06/01/2023 Type 2 diabetes mellitus ([facility]) September 2008 Vision loss wears glasses Past Surgical History: Procedure Laterality Date COLONOSCOPY OTHER SURGICAL HISTORY right knee arthroscopy x2 Family History Problem Relation Name Age of Onset Aortic aneurysm Mother Cancer Father Bhavik Tomlin Stroke Brother Bhavik Tomlin Social History Socioeconomic History Marital status: Spouse [...] POCT Glucose 99 74 - 99 mg/dL Lobito Tomlin is a 63 y.o. year old male [...] per primary [place] [phone] ph [phone] Associated attestation - Amada Palomino MD - 06/01/2023 10:58 AM EST I personally saw the patient, discussed risks and benefits, answered all questions, reviewed the chart and agree with the resident's plan. documented in this encounter [facility] Work Phone: 06-01-2023 Hospital Note Formatting [...] Home Care. Discharged with scheduled follow up. [facility] Work Phone: 06-01-2023 Attending History and [...] healing and intraoperative findings. Isha Valentino MD, [facility] Implementation Analyst of Neurological Surgery [employer] Attending Surgeon Director - Minimally Invasive Spine Surgery [place], [place] Source Note - Lama Ewelina MD - 05/17/2023 1:00 PM EST CPM/PAT Evaluation Name: Lobito Tomlin (Lobito Tomlin) /Age: 205/16/1960/63 y.o. In-Person Chief Complaint: 63 [...] pain disorder COVID-19 2020 recovererd Diabetes mellitus ([facility]) F/W PCP Hemoglobin A1c 8.0% or greater 03/08/2023 Last A1c=8.2, jardiance was added. Hypertension F/W PCP, not taking any medications Low back pain August 2018 Lumbar spondylosis Peripheral neuropathy bilateral feet R>L PONV (postoperative nausea and vomiting) Spinal stenosis scheduled for surgery with Dr. Valentino on 06/01/2023 Type 2 diabetes mellitus (CMS/HCC) September 2008 Vision loss wears glasses Past Surgical History: Procedure Laterality Date COLONOSCOPY OTHER SURGICAL HISTORY right knee arthroscopy x2 Patient reports being sexually active and has had partner(s) who are female. Family History Problem Relation Name Age of Onset Aortic aneurysm Mother Cancer Father Bhavik Tomlin Stroke Brother Bhavik Tomlin No Known Allergies Prior to Admission medications [...] Case seen and discussed with Dr. Alvarado. [facility] Work Phone: 06-01-2023 History and physical [...] healing and intraoperative findings. Isha Valentino MD, [facility] Implementation Analyst of Neurological Surgery [employer] Attending Surgeon Director - Minimally Invasive Spine Surgery [place], [place] Source Note - Lama Ewelina MD - 05/17/2023 1:00 PM EST CPM/PAT Evaluation Name: Lobito Tomlin (Lobito Jacklin) /Age: 205/16/1960/63 y.o. In-Person Chief Complaint: 63 [...] pain disorder COVID-19 2020 recovererd Diabetes mellitus ([facility]/HCC) F/W PCP Hemoglobin A1c 8.0% or greater 03/08/2023 Last A1c=8.2, jardiance was added. Hypertension F/W PCP, not taking any medications Low back pain August 2018 Lumbar spondylosis Peripheral neuropathy bilateral feet R>L PONV (postoperative nausea and vomiting) Spinal stenosis scheduled for surgery with Dr. Valentino on 06/01/2023 Type 2 diabetes mellitus ([facility]/HCC) September 2008 Vision loss wears glasses Past Surgical History: Procedure Laterality Date COLONOSCOPY OTHER SURGICAL HISTORY right knee arthroscopy x2 Patient reports being sexually active and has had partner(s) who are female. Family History Problem Relation Name Age of Onset Aortic aneurysm Mother Cancer Father Bhavik Tomlin Stroke Brother Bhavik Tomlin No Known Allergies Prior to Admission medications [...] with Dr. Alvarado. documented in this encounter [facility] Work Phone: 03-28-2023 Evaluation note Encounter Date Diagnosis Assessment Notes Mar, Lumbosacral spondylosis (ICD-10 - M47.817) I reviewed the x-ray lumbar spine from 10/16/2022 and which shows levoscoliosis. Diffuse endplate and facet joint degenerative changes with moderate disc space narrowing L3-L4, L4-L5 and L5-S1. No of pathological motion on flexion-extension . I independently reviewed the MRI of the lumbar spine from 12/15/2022 [id number] with patient and and which shows worsening [...] Levoscoliosis of lumbar spine (ICD-10 - M41.86) [facility] Other 11-27-2023 Evaluation note* Encounter Date Diagnosis [...] - G89.29) Continue with current treatment plan [facility] Evaluation note* Encounter Date Diagnosis Assessment Notes [...] (ICD-10 - G89.29) Follow up after procedure. [employer] Other Evaluation noteNo InformationNort [facility] Other Evaluation noteNo assessment information available [facility] Work Phone: Evaluation note* Diagnosis Back pain, unspecified back location, unspecified back pain laterality, unspecified chronicity- Primary [facility] Spinal stenosis of lumbar region with neurogenic claudication documented in this encounter [facility] Work Phone: Evaluation note* Diagnosis Spinal [...] with neurogenic claudication documented in this encounter [facility] Work Phone: Evaluation note* Diagnosis Lumbar [...] with neurogenic claudication documented in this encounter [facility] Work Phone: Evaluation note* Diagnosis Status post spinal surgery Other postprocedural status documented in this encounter [facility] Work Phone: Evaluation note* Diagnosis Postoperative follow-up- Primary Follow-up examination, following unspecified surgery documented in this encounter [facility] Work Phone: Evaluation note* Diagnosis S/P lumbar spinal fusion Arthrodesis status Scoliosis of thoracolumbar region due to degenerative disease of spine in adult documented in this encounter [facility] Work Phone: Evaluation note* Diagnosis Type 2 diabetes mellitus with hyperglycemia, without long-term current use of insulin ([facility])- Primary Lumbar spondylosis Lumbosacral spondylosis without myelopathy Type 2 diabetes mellitus with hyperglycemia, without long-term current use of insulin ([facility])- Primary Essential hypertension (CMS/[facility]) Unspecified essential hypertension Lumbar spondylosis Lumbosacral spondylosis without myelopathy Flexural psoriasis (CMS/HCC) Type 2 diabetes mellitus with hyperglycemia, without long-term current use of insulin ([facility]/HCC)- Primary Essential hypertension (CMS/HCC) Unspecified essential hypertension Lumbar spondylosis Lumbosacral spondylosis without myelopathy Psoriatic arthritis (CMS/HCC) Psoriatic arthropathy 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) Type 2 diabetes mellitus with hyperglycemia, without long-term current use of insulin (CMS/HCC)- Primary Essential hypertension (CMS/HCC) Unspecified essential hypertension Lumbar spondylosis Lumbosacral spondylosis without myelopathy Flexural psoriasis (CMS/HCC) Encounter for long-term (current) use of medications Encounter for long-term (current) use of other medications Screening PSA (prostate specific antigen) Special screening for malignant neoplasm of prostate Obesity (BMI 30-39.9) Annual physical exam- Primary Routine general medical examination at a health care facility Type 2 diabetes mellitus with hyperglycemia, without long-term current use of insulin (CMS/HCC) Essential hypertension (CMS/HCC) Unspecified essential hypertension [facility] encounter [facility] Narrative - Reported* Type Description Date Medical History DM Medical History arthritis Surgical History arthroscopic right knee X2 Surgical History Procedure:eye exam;D isease:Diabetes mellitus, type 2 without comp. 2012 Surgical History colonoscopy Surgical History Procedure:Arthroscopy knee;Dise ase: 2003 Surgical History Procedure:Meds;Disease:Psoriati c Arthitis Surgical History Procedure:removed;Disease:Groin cyst Surgical History Colonoscopy, Internal Hemorrhio ds- Dr. Solorio 10/02/2014 Hospitalization History see above [facility] Other Recryq for referral (narrative)* Reason *Waiting for appt Please refer to Dr Dumont for surgical evaluation Diagnosis 1 Lumbar radiculopathy (M54.16) Referral Organization [facility] Pain Managemen t Referring Provider First Name Abel Referring Provider Last Name Lori Referring Provider Specialty Pain Medici ne Referred Organization [facility] urosurgery Referred Provider David Dumont Referred Address [address] [place] [phone] Referred Provider Specialty Neurological Surgery Referral Priority Routine General Notes Bk Hansen 02/19 01:27:01 PM > Received today, sent P2P [facility] Other Reason for visit Narrativereferred by Dr. Sandoval surgical [facility], [facility] Other Summary Purpose Family History No Family [...] Back Pain Chief Complaint M54.16 Back Pain [id number] Reason for Referral Specialty Diagnoses / Procedures Referred By Contac t Referred To Contact Radiology Diagnoses S/P lumbar spinal fusion Scoliosis of thoracolumbar region due to degenerative disease of spine in adult Procedures X-ray scoliosis 2 View (NON EOS) Isha [place] [id number] Navarro Department [place] [address] Referral ID Status Reason Start Date Expiration Date Visits Requested Visits Authorized [id number] Authorized Perform Procedure 08/13/2023 08/12/2024 1 1 Specialty Diagnoses / Procedures Referred By Contac t Referred To Contact Radiology Diagnoses Status post spinal surgery Procedures X-ray scoliosis 2 View (NON EOS) Isha Valentino [place] [id number] Navarro Department [place] [address] Referral ID Status Reason Start Date Expiration Date Visits Requested Visits Authorized [id number] Authorized Perform Procedure 07/10/2023 07/09/2024 1 1 Specialty Diagnoses / Procedures Referred By Contac t Referred To Contact Home Health Services Diagnoses Lumbar radiculopathy, right Isha Valentino [place] [id number] Navarro Department of Neurological Surgery [place] [id number] Referral ID Status Reason Start Date Expiration Date Visits Requested Visits Authorized [id number] Authorized Specialty Services Required 06/06/2023 06/05/2024 999 999 Specialty Diagnoses / Procedures Referred By Contac t Referred To Contact Diagnoses Surgery, elective Preop testing Preoperative general physical examination Procedures [place] 12 [place] [address] Department of Anesthesiology/[place] [address] Referral ID Status Reason Start Date Expiration Date V isits Requested Visits Authorized [id number] Authorized 05/17/2023 2024 1 1 Specialty Diagnoses / Procedures Referred By Contac t Referred To Contact Radiology Diagnoses Spinal stenosis of lumbar region with neurogenic claudication Procedures X-ray scoliosis 2 View (NON EOS) [place] [address] Department [place] [address] Referral ID Status Reason Start Date Expiration Date Visits Requested Visits Authorized [id number] Authorized Perform Procedure 04/24/2023 04/23/2024 1 1 Specialty Diagnoses / Procedures Referred By Contac t Referred To Contact Radiology Diagnoses Back pain, unspecified back location, unspecified back pain laterality, unspecified chronicity Procedures DOWNLOAD Ducatt[facility] IMAGES TO Dino Syed [place] [address] [facility] DIAGNOSTIC RADIOLOGY [address] [place] [address] Referral ID Status Reason Start Date Expiration Date V isits Requested Visits Authorized [id number] Authorized 04/12/2023 04/11/2024 1 1 Additional Source Comments (unrecognized sect ion and content) No Status Records FoundNo Status Records FoundNo Status Records FoundNo Status Records FoundNo Status Records FoundNo Status Records FoundNo Status Records FoundNo Status Records Found INFORMATION SOURCE (unrecogn ized section and content) DATE CREATED AUTHOR 07/22/2022 [facility] DATE CREATED AUTHOR AUTHOR'S ORGANIZ ATION 02/19/2023 [facility] DATE CREATED AUTHOR AUTHOR'S ORGANIZ ATION 05/26/2023 [facility] DATE CREATED AUTHOR AUTHOR'S ORGANIZ ATION 06/12/2023 [facility] ([place]) DATE CREATED AUTHOR AUTHOR'S ORGANIZ ATION 10/11/2023 [facility] DATE CREATED AUTHOR AUTHOR'S ORGANIZ ATION 12/04/2023 [place] DATE CREATED AUTHOR AUTHOR'S ORGANIZ ATION 01/17/2024 [facility] EPIC REASON FOR VISIT (unrecogniz ed section and content) Reason Comments Annual Exam States he's here for an annual examEverything is going good Specialty Diagnoses / Procedures Referred By Mackenzie hansen Referred To Contact Radiology Diagnoses S/P lumbar spinal fusion Scoliosis of thoracolumbar region due to degenerative disease of spine in adult Procedures X-ray scoliosis 2 View ([place] EOS) [place] [address] [address] Department of Neurological Surgery [place] [id number] Referral ID Status Reason Start Date Expiration Date Visits Requested Visits Authorized [id number] Authorized Perform Procedure 08/13/2023 08/12/2024 1 1 Specialty Diagnoses / Procedures Referred By Mackenzie hansen Referred To Contact Radiology Diagnoses Status post spinal surgery Procedures X-ray scoliosis 2 View ([place] EOS) [place] [address] [address] Department of Neurological Surgery [place] [id number] Referral ID Status Reason Start Date Expiration Date Visits Requested Visits Authorized [id number] Authorized Perform Procedure 07/10/2023 07/09/2024 1 1 Specialty Diagnoses / Procedures Referred By Mackenzie hansen Referred To Contact Diagnoses Spinal stenosis of [...] Lumbar stenosis with neurogenic claudication [M48.062] Procedures NH ARTHRODESIS COMBINED TQ 1NTRSPC LUMBAR NH OSTEOTOMY SPINE PST/PSTLAT APPR 1 VRT SGM LMBR NH ARTHRODESIS PST/PSTLAT TQ 1NTRSPC EA ADDL NTRSPC NH STACK FACETECTOMY & FORAMOTOMY 1 VRT SGM LUMBAR NH POSTERIOR SEGMENTAL INSTRUMENTATION 3-6 VRT SEG NH PELVIC FIXATION OTHER THAN SACRUM NH ALLOGRAFT FOR SPINE SURGERY ONLY MORSELIZED NH AUTOGRAFT SPINE SURGERY LOCAL FROM SAME INCISION NH STEREOTACTIC COMPUTER ASSISTED PX SPINAL NH INSJ BIOMCHN DEV INTERVERTEBRAL DSC SPC W/ARTHRD NH ARTHRODESIS CMBN TQ 1NTRSPC EACH ADDITIONAL L4-5 and L5-S1 transforaminal lumbar interbody fusion with placement of interbody cage with decompression L3-4 posterior column osteotomy with L2-3 laminectomy and facetectomy and L2-S1 instrumented fusion using local bone autograft and BMP [place]. [place] [address] [address] Department [place] [address] [facility] [place] [address] [place] [address] Referral ID Status Reason Start Date Expiration Date Visits Re quested Visits Authorized [id number] 1 1 Specialty Diagnoses / Procedures Referred By Contac t Referred To Contact Diagnoses Surgery, elective Preop testing Preoperative general physical examination Procedures [place] [address] Department of Anesthesiology/[place] [address] Referral ID Status Reason Start Date Expiration Date V isits Requested Visits Authorized [id number] Authorized 05/17/2023 2024 1 1 Specialty Diagnoses / Procedures Referred By Contac t Referred To Contact Radiology Diagnoses Spinal stenosis of lumbar region with neurogenic claudication Procedures X-ray scoliosis 2 View (NON EOS) [place] [address] [address] Department [place] [address] Referral ID Status Reason Start Date Expiration Date Visits Requested Visits Authorized [id number] Authorized Perform Procedure 04/24/2023 04/23/2024 1 1 [...] Active Sully Barney NP Attending Provider Active Auction Block Clerk Relationship Specialty Start Date End Date Major Stevens MD [address] [place] [address] PCP - General Family Medicine 05/17/23 Auction Block Clerk Relationship Specialty Start Date End Date Major Stevens MD [address] [place] [address] PCP - General Family Medicine 05/17/23 Auction Block Clerk Relationship Specialty Start Date End Date Major Stevens MD [address] [place] [address] PCP - General Family Medicine 05/17/23 Auction Block Clerk Relationship Specialty Start Date End Date Major Stevens MD [address] [place], [place] [address] PCP - General Family Medicine 05/17/23 Auction Block Clerk Relationship Specialty Start Date End Date Major Stevens MD [address] [place] [address] PCP - General Family Medicine 05/17/23 Auction Block Clerk Relationship Specialty Start Date End Date Major Stevens MD [address] [place] [id number] PCP - General Family Medicine 04/16/23 Auction Block Clerk Relationship Specialty Start Date End Date Major Stevens MD [address] [place] [id number] PCP - General Family Medicine 04/16/23 Scheduled Active and Recently Administ ered Medications (unrecognized section and content) Medication Order 06/04/2023 06/05/202306/06/2023 acetaminophen (Tylenol) tablet 650 mg 650 mg, [...] Charla Pedro RN)0813 (Given - Provider: Roseanne Garcia RN)1431 (Given - Provider: Roseanne Garcia RN)2112 (Given - Provider: Charla Pedro RN) 0407 (Given - Provider: Charla Pedro RN)0849 (Given - Provider: Fernanda Zapata RN)1407 (Given - Provider: Fernanda Zapata RN)1999 (Due) bisacodyl (Dulcolax) suppository 10 mg 10 mg, rectal, Daily, First dose on Sun06/04/23 at 1030 1155 (Given - Provider: Jacquelin Gaona RN) 1347 (Given - Provider: Roseanne Garcia RN - Comment: Patient request) 0900 (Not Given - Provider: Fernanda Zapata RN - Reason: Patient/family refused) cyclobenzaprine (Flexeril) tablet 10 mg 10 mg, oral, 3 times daily, First dose on Sun06/01/23 at 2100, Phase II/On Unit 0842 (Given - Provider: Jacquelin Gaona RN)1628 (Given - Provider: Jacquelin Gaona RN)2143 (Given - Provider: Charla Pedro RN) 0813 (Given - Provider: Roseanne Garcia RN)1431 (Given - Provider: Roseanne Gacria RN)2112 (Given - Provider: Charla Pedro RN) [...] Gaona RN) 0151 (Given - Provider: Charla ePdro RN)0814 (Given - Provider: Roseanne Garcia RN)1653 [...] - Provider: Roseanne Garcia RN - Comment: back)2100 (Medication Removed - Provider: Charla Pedro RN) 0849 (Medication Applied - Provider: Fernanda Zapata RN - Comment: mid upper back)204 (Due: Medication Removed - Provider: Fernanda Zapata [...] Provider: Jacquelin Gaona RN - Reason: Patient/family refused)2100 (Not Given - Provider: Charla Pedro RN - Reason: Patient/family refused) 0813 (Given - Provider: Roseanne Garcia, DAWN)1431 (Given - Provider: Roseanne Garcia RN)2112 (Given - Provider: Charla Pedro RN) 0849 (Given - Provider: Fernanda Zapata RN)1500 (Not Given - Provider: Fernanda Zapata RN - Reason: Patient/family refused)2100 (Due) potassium chloride CR (Klor-Con M20) ER [...] stools 0842 (Given - Provider: Jacquelin Gaona RN)2100 (Not Given - Provider: Charla Pedro RN - Reason: Patient/family refused) 0813 (Given - Provider: Roseanne Garcia RN)2112 (Given - Provider: Charla Pedro RN) 0849 (Given - Provider: Fernanda Zapata RN)2100 (Due) Continuous Medication Order 06/04/2023 06/05/2023 06/06/2023 [...] reaches 100 mg/dL., Starting on Sun06/01/23 at 193, For 1 dose, Phase II/On Unit, Discontinue [...] no IV access, Starting on Sun06/01/23 at 1931, Phase II/On Unit, Give until blood glucose is 100 mg/dL or greater. If patient DOES NOT HAVE secure IV access & patient is unconscious, NPO or is unable to eat or drink. naloxone (Narcan) injection 0.2 mg 0.2 mg, intravenous, Every 5 min PRN, respiratory depression, Starting on Sun06/01/23 at 1931, Phase II/On Unit, If respiratory rate is [...] less than 8, Starting on Sun06/01/23 at 1931, Phase II/On Unit, HOLD DIGITIZER OPERATOR Infusion and notify H.O. immediately ondansetron (Zofran) injection 4 mg(Linked Group 1) 4 mg, intravenous, Every 8 hours PRN, nausea/vomiting, first line, Starting on Sun06/01/23 at 1931, Phase II/On Unit, 1st Line. Give IV [...] hours PRN, nausea/vomiting, first line, Starting on 06/01/23 at 1932, Phase II/On Unit, 1st Line. Use oral route first, if possible. If inadequate response within 60 minutes, proceed to next-line agent for same PRN reason or contact provider if no further options ordered. oxyCODONE (Roxicodone) immediate release tablet 5 mg 5 mg, oral, Every 4 hours PRN, pain moderate (4-6), second line, Starting on 06/02/23 at 0724, If ordered PRN for pain, nurse is permitted to administer this medication for higher pain scores based on patient preference? Yes 0004 (Given - Provider: Charla Pedro, DAWN)0430 (Given - Provider: Charla Pedro RN) 0428 (Given - Provider: Charla Pedro RN)1848 (Given - Provider: Roseanne Garcia RN) 0057 (Given - Provider: Charla Pedro, DAWN)1823 (Given - Provider: Fernanda Zapata RN) oxygen [...] hours PRN, nausea/vomiting, second line, Starting on 06/01/23 at 1932, Phase II/On Unit, 2nd Line. Give NH if patient is unable to take orally. If inadequate response within 60 minutes, proceed to next-line agent for same PRN reason or contact provider if no further options ordered. promethazine (Phenergan) tablet 25 mg(Linked Group 2) 25 mg, oral, Every 6 hours PRN, nausea/vomiting, second line, Starting on 06/01/23 at 1932, Phase II/On Unit, 2nd Line. [...] 1932, Phase II/On Unit
2nd Line. Give NH if patient is unable to take orally. [...] BE BASED ON THE PRIMARY CLINICAL RECORDS. [employer] [facility]. provides no warranty or guarantee of the accuracy or completeness of information in this document.
[2024-02-19 07:29] LABS: Basophils Absolute Auto 0.1 10^3/uL (0.0-0.1); Basophils Percent Auto 0.7 % (0.2-2.0); Eosinophils Absolute Auto 0.1 10^3/uL (0.0-0.7); Eosinophils Percent Auto 1.7 % (0.9-7.0); Hematocrit 40.9 % (42.0-54.0); Hemoglobin 13.1 g/dL (14.0-18.0); Immature Granulocytes Abs Auto 0.01 10^3/uL (0.00-0.03); Immature Granulocytes Pct Auto 0.1 % (0.0-0.5); Lymphocytes Absolute Auto 1.7 10^3/uL (1.2-3.8); Lymphocytes Percent Auto 23.1 % (20.5-60.0); Mean Corpuscular Hemoglobin 28.4 pg (25.9-34.0); Mean Corpuscular Volume 88.7 fL (80.0-94.0); Mean Platelet Volume 10.5 fL (9.5-13.5); Monocytes Absolute Auto 0.6 10^3/uL (0.3-0.8); Monocytes Percent Auto 8.8 % (1.7-12.0); Neutrophils Absolute Auto 4.7 10^3/uL (1.4-6.5); Neutrophils Percent Auto 65.6 % (43.0-75.0); Platelet Count 293 10^3/uL (150-450); Red Blood Count 4.61 10^6/uL (4.70-6.10); Red Cell Distribution Width 15.8 % (11.0-15.0); White Blood Count 7.2 10^3/uL (4.0-11.0)
[2024-02-19 07:43] LABS: Alanine Aminotransferase 33 U/L (16-63); Albumin Level 3.8 g/dL (3.4-5.0); Alkaline Phosphatase 99 U/L (46-116); Anion Gap 12.2; Aspartate Amino Transferase 23 U/L (15-37); Bilirubin Total 0.3 mg/dL (0.2-1.0); Calcium 9.1 mg/dL (8.5-10.1); Carbon Dioxide 26.4 mmol/L (21.0-32.0); Chloride 106 mmol/L (98-107); Estimated GFR (African America >60 (>=60 mL/min/1.73m^2); Estimated GFR (Non-African Ame >60 (>=60 mL/min/1.73m^2); Globulin 3.7 g/dL; Glucose 85 mg/dL (74-106); Potassium 3.6 mmol/L (3.5-5.1); Sodium 141 mmol/L (136-145); Total Protein 7.5 g/dL (6.4-8.2)
[2024-02-19 07:54] LABS: Erythrocyte Sedimentation Rate 16 mm/hr (<=20)
== END 2024-02-19 07:08 | disposition home or self-care (01) ==
LOC: LAB 07:08
PROVIDERS: PCP Family Medicine; Visit Provider Internal Medicine Rheumatology
DX: L40.59 Other psoriatic arthropathy (principal); Z79.899 Other long term (current) drug therapy
CPT/HCPCS: 36415; 80053; 85025; 85652

== ENCOUNTER 2024-06-25 11:09 | Outpatient (OUT) | payer OTHER, SELFPAY ==
[2024-06-25 11:26] LABS: Basophils Percent Auto 0.7 % (0.2-2.0); Eosinophils Absolute Auto 0.1 10^3/uL (0.0-0.7); Eosinophils Percent Auto 2.3 % (0.9-7.0); Hematocrit 42.2 % (42.0-54.0); Hemoglobin 13.7 g/dL (14.0-18.0); Immature Granulocytes Abs Auto 0.01 10^3/uL (0.00-0.03); Immature Granulocytes Pct Auto 0.2 % (0.0-0.5); Lymphocytes Absolute Auto 1.8 10^3/uL (1.2-3.8); Lymphocytes Percent Auto 30.4 % (20.5-60.0); Mean Corpuscular HGB Conc 32.5 g/dL (29.9-35.2); Mean Corpuscular Hemoglobin 28.7 pg (25.9-34.0); Mean Corpuscular Volume 88.3 fL (80.0-94.0); Mean Platelet Volume 10.7 fL (9.5-13.5); Monocytes Absolute Auto 0.5 10^3/uL (0.3-0.8); Monocytes Percent Auto 8.2 % (1.7-12.0); Neutrophils Absolute Auto 3.5 10^3/uL (1.4-6.5); Neutrophils Percent Auto 58.2 % (43.0-75.0); Platelet Count 262 10^3/uL (150-450); Red Blood Count 4.78 10^6/uL (4.70-6.10); Red Cell Distribution Width 14.9 % (11.0-15.0)
[2024-06-25 12:04] LABS: Alanine Aminotransferase 50 U/L (16-63); Albumin Globulin Ratio 0.9; Albumin Level 3.5 g/dL (3.4-5.0); Alkaline Phosphatase 97 U/L (46-116); Aspartate Amino Transferase 28 U/L (15-37); BUN Creatinine Ratio 16.5; Bilirubin Total 0.3 mg/dL (0.2-1.0); Calcium 9.2 mg/dL (8.5-10.1); Carbon Dioxide 26.7 mmol/L (21.0-32.0); Chloride 104 mmol/L (98-107); Estimated GFR (African America >60 (>=60 mL/min/1.73m^2); Estimated GFR (Non-African Ame >60 (>=60 mL/min/1.73m^2); Glucose 119 mg/dL (74-106); Potassium 3.7 mmol/L (3.5-5.1); Sodium 140 mmol/L (136-145); Total Protein 7.5 g/dL (6.4-8.2)
[2024-06-25 12:48] LABS: Erythrocyte Sedimentation Rate 19 mm/hr (<=20)
== END 2024-06-25 11:10 | disposition home or self-care (01) ==
LOC: LAB 11:11
PROVIDERS: PCP Family Medicine; Visit Provider Registered Nurse
DX: M15.0 Primary generalized (osteo)arthritis (principal); L40.51 Distal interphalangeal psoriatic arthropathy; Z79.899 Other long term (current) drug therapy
CPT/HCPCS: 36415; 80053; 85025; 85652

== ENCOUNTER 2024-07-16 10:31 | Outpatient (OUT) | payer OTHER, SELFPAY ==
[2024-07-16 12:11] LABS: Estimated Average Glucose 137 mg/dL; Glycohemoglobin A1C 6.4 % (4.5-6.2)
== END 2024-07-16 10:32 | disposition home or self-care (01) ==
LOC: LAB 10:32
PROVIDERS: PCP Family Medicine; Visit Provider Family Medicine
DX: E11.65 Type 2 diabetes mellitus with hyperglycemia (principal)
CPT/HCPCS: 36415; 83036

== ENCOUNTER 2024-11-12 10:26 | Outpatient (OUT) | payer OTHER, SELFPAY ==
--- OUTSIDE RECORDS SUMMARY | 2024-11-12 10:30 | XMS_ITS | Encounter Summary ---
Author Organization [facility] Address [address] [place] [address] Care Team Providers Care Washing Machine Installer Name Role Phone Major Garcia MD Primary Care Provider [phone] Reason for Visit * Reason Comments Med Refill Encounter Details Date Type Department Care Team (Late st Contact Info) Description 10/17/2023 [facility] [address] [place] [address] Major Garcia MD [address] [place] [address] Essential hypertension ; Type 2 diabetes mellitus with hyperglycemia, without long-term current use of insulin (HCC) Social History Tobacco Use Types Packs/Day Years Used Date Smoking Tobacco: Never Smokeless Tobacco: Never Alcohol Use Standard Drinks/Week Comments Not Currently 1 (1 standard drink = 0.6 oz pur e alcohol) caffeine: soda, chocolate Humiliation, Afraid, Rape, and Kick questionnair e Answer Date Recorded Within the last year, have y ou been afraid of your partner or ex-partner? No 02/28/2023 Within the last year, have y ou been humiliated or emotionally abused in other ways by your partner or ex-partner? No Within the last year, have y ou been kicked, hit, slapped, or otherwise physically hurt by your partner or ex-partner? No 02/28/2023 Within the last year, have y ou been raped or forced to have any kind of sexual activity by your partner or ex-partner? No 02/28/2023 Social Connection and Isolation Panel [NHANES] A nswer Date Recorded In a typical week, how many times do you talk on the phone with family, friends, or neighbors? Three times a week 02/29/20 How often do you get togethe r with friends or relatives? Once a week 02/28/2023 How often do you attend chur ch or religion services? 1 to 4 times per year 02/28/2023 Do you belong to any clubs o r organizations such as islam groups, unions, fraternal or athletic groups, or school groups? Patient declined 02/28/2023 How often do you attend meet ings of the clubs or organizations you belong to? Patient declined 02/28/2023 Are you , , di vorced, , never , or living with a partner? 02/28/2023 AUDIT-C Answer Date Recorded Q1: How often do you have a drink containing alcohol? Never 02/28/2023 Q2: How many drinks containi ng alcohol do you have on a typical day when you are drinking? Patient does not drink Q3: How often do you have si x or more drinks on one occasion? Never 02/28/2023 Overall Financial Resource Strain (CARDIA) Answe r Date Recorded How hard is it for you to pa y for the very basics like food, housing, medical care, and heating? Not very hard 02/28/2023 [facility] - Occupational Stress Questionnaire Answer Date Recorded Do you feel stress - tense, restless, nervous, or anxious, or unable to sleep at night because your mind is troubled all the time - these days? Not at all 02/28/2023 Exercise Vital Sign Answer Date Recorde d On average, how many days pe r week do you engage in moderate to strenuous exercise (like a brisk walk)? Patient declined On average, how many minutes do you engage in exercise at this level? Patient declined 02/28/2023 Hunger Vital Sign Answer Date Recorded Within the past 12 months, y ou worried that your food would run out before you got the money to buy more. Never true 02/29/20 23 Within the past 12 months, t he food you bought just didn't last and you didn't have money to get more. Never true 02/28/2023 PRAPARE - Transportation Answer Date Re corded In the past 12 months, has l ack of transportation kept you from medical appointments or from getting medications? No 08/2022 In the past 12 months, has l ack of transportation kept you from meetings, work, or from getting things needed for daily living? No 02/28/2023 Housing Stability Vital Sign Answer Michael e Recorded In the last 12 months, was t here a time when you were not able to pay the mortgage or rent on time? No 02/29/20 Number of Places Lived in the Last Year Not on f ile 02/28/2023 In the last 12 months, was t here a time when you did not have a steady place to sleep or slept in a nursing home (including now)? Patient refused 02/28/2023 Housing Stability Vital Sign Answer Michael e Recorded In the last 12 months, was t here a time when you were not able to pay the mortgage or rent on time? No 02/28/2023 Number of Times Moved in the Last Year Not on fi le 02/28/2023 Homeless in the Last Year Not on file 2022 Sex and Gender Information Value Date Recorded Sex Assigned at Not on file Legal Sex Male 7:00 PM EDT Gender Identity Not on file Sexual Orientation Not on file documented as of this encounter Plan of Treatment Upcoming Encounters Date Type Department Care Team (Late st Contact Info) Description 01/16/2025 9:00 AM EDT Office Visit [facility] [address] [place] [address] Major Garcia MD [address] [place] [phone] documented as of this encounter Visit Diagnoses Diagnosis Essential hypertension Unspecified essential hypertension Type 2 diabetes mellitus with hyperglycemia, without long-term current use of insulin (HCC) documented in this encounter Care Teams Washing Machine Installer Relationship Specialty Start Date End Date Major Garcia MD [address] [place] [phone] PCP - General Family Medicine 04/16/23 documented as of this encounter
--- OUTSIDE RECORDS SUMMARY | 2024-11-12 10:30 | XMS_ITS | Encounter Summary ---
Author Organization [facility] Address [address] [place] [address] Phone Care Team Providers Care Veneer Jointer Name Role Phone Major Garcia MD Primary Care Provider + Encounter Details Date Type Department Care Team (Late st Contact Info) Description 07/11/[address] [facility] [address] [place] [address] [place] [address] Department of Neurological Surgery [place] [id number] Social History Tobacco Use Types Packs/Day Years Used Date Smoking Tobacco: Never Smokeless Tobacco: Never Alcohol Use Standard Drinks/Week Comments Not Currently 0 (1 standard drink = 0.6 oz pur e alcohol) AUDIT-C Answer Date Recorded Q1: How often do you have a drink containing alcohol? Never 06/01/2023 Q2: How many drinks containi ng alcohol do you have on a typical day when you are drinking? Patient does not drink Q3: How often do you have si x or more drinks on one occasion? Never 06/01/2023 Overall Financial Resource Strain (CARDIA) Answe r Date Recorded How hard is it for you to pa y for the very basics like food, housing, medical care, and heating? Not hard at all 06/01/2023 PHQ-2 Answer Date Recorded Patient Health Questionnaire-2 Score 0 06/01/2023 PRAPARE - Transportation Answer Date Re corded In the past 12 months, has l ack of transportation kept you from medical appointments or from getting medications? No 10/2023 In the past 12 months, has l ack of transportation kept you from meetings, work, or from getting things needed for daily living? No 06/01/2023 Housing Stability Vital Sign Answer Michael e Recorded In the last 12 months, was t here a time when you were not able to pay the mortgage or rent on time? No 06/01/2023 In the last 12 months, how many places have you lived? 1 06/01/2023 In the last 12 months, was t here a time when you did not have a steady place to sleep or slept in a halfway (including now)? No 06/01/2023 Sex and Gender Information Value Date Recorded Sex Assigned at Not on file Legal Sex Male 1:23 PM EST Gender Identity Not on file Sexual Orientation Not on file COVID-19 Exposure Response Date Recorded In the last 10 days, have yo u been in contact with someone who was confirmed or suspected to have Coronavirus/COVID-19? No / Unsure 07/10/2023 11:16 AM EDT documented as of this encounter Plan of Treatment Not on file documented as of this encounter Goals Goal Patient Goal Type Associated Problems Recent Progress Patient-Stated? Author Help patient manage spine surgery Care Plan Patient has spine surgery No Jose Roberto Pineda MD documented as of this encounter Visit Diagnoses Not on filedocumented in this encounter Additional Health Concerns Active Problems Noted Date Diagnosed Date Patient has spine surgery 04/24/2023 documented as of this encounter Care Teams Veneer Jointer Relationship Specialty Start Date End Date Major Garcia MD [address] [place] [address] PCP - General Family Medicine 05/17/23 documented as of this encounter
--- OUTSIDE RECORDS SUMMARY | 2024-11-12 10:30 | XMS_ITS | Encounter Summary ---
Author Organization [facility] Address [address] [place] [address] Care Team Providers Care Stockroom Attendant Name Role Phone Major Garcia MD Primary Care Provider [phone] Encounter Details Date Type Department Care Team (Late st Contact Info) Description 07/16/2024 Results Follow-Up [facility] [address] [place] [phone] Major Garcia MD [address] [place] [address] MLR HEMOGLOBIN A1C Social History Tobacco Use Types Packs/Day Years Used Date Smoking Tobacco: Never Smokeless Tobacco: Never Alcohol Use Standard Drinks/Week Comments Not Currently 1 (1 standard drink = 0.6 oz pur e alcohol) caffeine: soda, chocolate B1300 Health Literacy Answer Date Recor ded How often do you need to hav e someone help you when you read instructions, pamphlets, or other written material from your doctor or pharmacy? Never 07/09/2024 Humiliation, Afraid, Rape, and Kick questionnair e Answer Date Recorded Within the last year, have y ou been afraid of your partner or ex-partner? No 07/09/2024 Within the last year, have y ou been humiliated or emotionally abused in other ways by your partner or ex-partner? No Within the last year, have y ou been kicked, hit, slapped, or otherwise physically hurt by your partner or ex-partner? No 07/09/2024 Within the last year, have y ou been raped or forced to have any kind of sexual activity by your partner or ex-partner? No 07/09/2024 Social Connection and Isolation Panel [NHANES] A nswer Date Recorded In a typical week, how many times do you talk on the phone with family, friends, or neighbors? Three times a week 07/10/19 25 How often do you get togethe r with friends or relatives? Twice a week 07/09/2024 How often do you attend chur or pentecostal services? 1 to 4 times per year 07/09/2024 Do you belong to any clubs o r organizations such as episcopal groups, unions, fraternal or athletic groups, or school groups? No 07/09/2024 How often do you attend meet ings of the clubs or organizations you belong to? Never 07/09/2024 Are you , , di vorced, , never , or living with a partner? 07/09/2024 AUDIT-C Answer Date Recorded Q1: How often do you have a drink containing alcohol? Never 07/09/2024 Q2: How many drinks containi ng alcohol do you have on a typical day when you are drinking? Patient does not drink Q3: How often do you have si x or more drinks on one occasion? Never 07/09/2024 Overall Financial Resource Strain (CARDIA) Answe r Date Recorded How hard is it for you to pa y for the very basics like food, housing, medical care, and heating? Not very hard 07/09/2024 [facility] - Occupational Stress Questionnaire Answer Date Recorded Do you feel stress - tense, restless, nervous, or anxious, or unable to sleep at night because your mind is troubled all the time - these days? Not at all 07/09/2024 Exercise Vital Sign Answer Date Recorde d On average, how many days pe r week do you engage in moderate to strenuous exercise (like a brisk walk)? 4 days 07/09/2024 On average, how many minutes do you engage in exercise at this level? 50 min 07/09/2024 Hunger Vital Sign Answer Date Recorded Within the past 12 months, y ou worried that your food would run out before you got the money to buy more. Never true 07/10/19 25 Within the past 12 months, t he food you bought just didn't last and you didn't have money to get more. Never true 07/09/2024 PRAPARE - Transportation Answer Date Re corded In the past 12 months, has l ack of transportation kept you from medical appointments or from getting medications? No 06/24 In the past 12 months, has l ack of transportation kept you from meetings, work, or from getting things needed for daily living? No 07/09/2024 Housing Stability Vital Sign Answer Michael e Recorded In the last 12 months, was t here a time when you were not able to pay the mortgage or rent on time? No 02/29/20 23 Number of Places Lived in the Last Year Not on f ile 02/28/2023 In the last 12 months, was t here a time when you did not have a steady place to sleep or slept in a detention (including now)? Patient refused 02/28/2023 Housing Stability Vital Sign Answer Michael e Recorded In the last 12 months, was t here a time when you were not able to pay the mortgage or rent on time? No 07/09/2024 In the past 12 months, how m any times have you moved where you were living? 0 07/09/2024 At any time in the past [address] [facility], were you homeless or living in a detention (including now)? No 07/09/2024 Sex and Gender Information Value Date Recorded Sex Assigned at Not on file Legal Sex Male 7:00 PM EDT Gender Identity Not on file Sexual Orientation Not on file documented as of this encounter Plan of Treatment Upcoming Encounters Date Type Department Care Team (Late st Contact Info) Description 01/16/2025 9:00 AM EDT [facility] [address] [place] [address] Major Garcia MD [address] [place] [address] documented as of this encounter Visit Diagnoses Not on filedocumented in this encounter Care Teams Stockroom Attendant Relationship Specialty Start Date End Date Major Garcia MD [address] [place] [address] PCP - General Family Medicine 04/16/23 documented as of this encounter
--- OUTSIDE RECORDS SUMMARY | 2024-11-12 10:30 | XMS_ITS ---
Author Organization [facility] Address [address] 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 Use steroid cream PRN. Lumbar spondylosis 03/07/2023 Overview (04/30/2023): Last Assessment & Plan: Pain unchanged and follow up with surgeon. Primary hypertension 03/07/2023 Overview (04/30/2023): Last Assessment & Plan: BP controlled and monitor PRN. Type 2 diabetes mellitus wit h hyperglycemia, without long-term current use of insulin 03/07/2023 Overview (04/30/2023): Last Assessment & Plan: BS improved with jardiance and continue. Stick to ADA diet and limit carbs. 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 Past Treatment and Therapy Plans No past plan information found. Lifetime Dose Tracking * Chemical Lifetime Dose Automatic Entry Manual Entr y Air Kerma 2,173.322 mGy 2,173.322 mGy 0 mGy Resolved Problems Problem Noted Date Diagnosed Date Resolved Date Malignant neoplasm of prostate (Multi) 09/15/2021 04/30/2023
--- OUTSIDE RECORDS SUMMARY | 2024-11-12 10:30 | XMS_ITS | Encounter Summary ---
Author Organization [facility] Address [address] [place] [address] Care Team Providers Care Loading Unit Operator Powder Charging Name Role Phone Major Garcia MD Primary Care Provider [phone] Reason for Visit * Reason Comments Med Refill Encounter Details Date Type Department Care Team (Late st Contact Info) Description 06/12/2024 [facility] [address] [place] [address] Major Garcia MD [address] [place] [address] Type 2 diabetes mellitus with hyperglycemia, without [...] often do you attend chur ch or roman catholic services? 1 to 4 times per year 02/28/2023 Do you belong to any clubs o r organizations such as catholic groups, unions, fraternal or athletic groups, or [...] care, and heating? Not very hard 02/28/2023 [facility] - Occupational Stress Questionnaire Answer Date Recorded [...] place to sleep or slept in a half-way (including now)? Patient refused 02/28/2023 Housing Stability [...] on file documented as of this encounter Miscellaneous Notes * Telephone Encounter - BUNNY SNYDER - 06/12/2024 10:49 AM EDT MEDICATION SENT TO [facility] documented in this encounter Plan of Treatment Upcoming Encounters Date Type Department Care Team (Late st Contact Info) Description 01/16/2025 9:00 AM EDT Office Visit [facility] [address] [place] [address] Major Garcia MD [address] [place] [address] documented as of this encounter Visit Diagnoses Diagnosis Type 2 diabetes mellitus with hyperglycemia, without long-term current use of insulin (HCC) documented in this encounter Care Teams Loading Unit Operator Powder Charging Relationship Specialty Start Date End Date Major Garcia MD [address] [place] [address] PCP - General Family Medicine 04/16/23 documented as of this encounter
--- OUTSIDE RECORDS SUMMARY | 2024-11-12 10:30 | XMS_ITS | Encounter Summary ---
Author Organization [facility] Address [address] [place] [address] Phone Care Team Providers Care Stock Associate Name Role Phone Major Garcia MD Primary Care Provider + Encounter Details Date Type Department Care Team (Late st Contact Info) Description 07/04/2023 Scanned Document [facility] [address] [place] [address] [place] [address] Department of Neurological Surgery [place] [phone] Social History Tobacco Use Types Packs/Day Years [...] documented as of this encounter Care Teams Stock Associate Relationship Specialty Start Date End Date Major Garcia MD [address] [place] [address] PCP - General Family Medicine 05/17/23 documented as of this encounter
--- OUTSIDE RECORDS SUMMARY | 2024-11-12 10:30 | XMS_ITS | Encounter Summary ---
Author Organization [facility] Address [address] [place] [address] Care Team Providers Care Project Coordinator Rn Name Role Phone Major Garcia MD Primary Care Provider [phone] Encounter Details Date Type Department Care Team (Late st Contact Info) Description 07/23/2024 Orders [facility] [address] [place] [phone] Major Garcia MD [address] [place] [address] Social History Tobacco Use Types Packs/Day Years [...] or neighbors? Three times a week 07/10/19 How often do you get togethe r with friends or relatives? Twice a week 07/09/2024 How often do you attend chur or mosque services? 1 to 4 times per year 07/09/2024 Do you belong to any clubs o r organizations such as advent groups, unions, fraternal or athletic groups, or [...] care, and heating? Not very hard 07/09/2024 [facility] - Occupational Stress [...] place to sleep or slept in a [place] (including now)? Patient refused 02/28/2023 Housing Stability [...] any time in the past 12 m [facility], were you homeless or living in a [place] (including now)? No 07/09/2024 Sex and Gender Information Value Date Recorded Sex Assigned at Not on file Legal Sex Male 7:00 PM EDT Gender Identity Not on file Sexual Orientation Not on file documented as of this encounter Plan of Treatment Upcoming Encounters Date Type Department Care Team (Late st Contact Info) Description 01/16/2025 9:00 AM EDT Office Visit [facility] [address] [place] [address] Major Garcia MD [address] [place] [address] documented as of this encounter Procedures Procedure Name Priority Date/Time Associated Diagnosis Comments DIABETIC RETINOPATHY SCREENING - OU - BOTH EYES Routine 07/23/2024 1:01 PM EDT documented in this encounter Results * Diabetic Retinopathy Screening - OU - Both Eyes (07/23/2024 1:01 PM EDT) Anatomical Region Laterality Modality Head Other Major Garcia MD OPHTH PHOTOGRAPHY Final Result documented in this encounter Visit Diagnoses Not on filedocumented in this encounter Care Teams Project Coordinator Rn Relationship Specialty Start Date End Date Major Garcia MD [address] [place] [address] PCP - General Family Medicine 04/16/23 documented as of this encounter
--- OUTSIDE RECORDS SUMMARY | 2024-11-12 10:30 | XMS_ITS | Encounter Summary ---
Author Organization [facility] Address [address] [place] [address] Care Team Providers Care Central Stores Attendant Name Role Phone Major Garcia MD Primary Care Provider [phone] Major Garcia MD Primary Care Provider [phone] Encounter Details Date Type Department Care Team (Late Contact Info) Description 10/30/2022 Abstract [facility] [address] [facility] [address] [place] [address] Alf Graham, PT [address] [facility] [address] [place] [address] Social History Tobacco Use Types Packs/Day Years Used Date Smoking Tobacco: Never Tobacco Cessation:Counseling Given: Not Answered Alcohol Use Standard Drinks/Week Comments Yes 1 (1 standard drink = 0.6 oz pur e alcohol) caffeine: soda, chocolate Sex and Gender Information Value Date Recorded Sex Assigned at Not on file Legal Sex Male 7:00 PM EDT Gender Identity Not on file Sexual Orientation Not on file COVID-19 Exposure Response Date Recorded In the last 10 days, have yo u been in contact with someone who was confirmed or suspected to have Coronavirus/COVID-19? No / Unsure 11/01/2022 12:43 PM EDT documented as of this encounter Plan of Treatment Upcoming Encounters Date Type Department Care Team (Late Contact Info) Description 01/16/2025 9:00 AM EDT Office Visit [facility] [address] [place] [address] Major Garcia MD [address] [place] [address] documented as of this encounter Visit Diagnoses Not on filedocumented in this encounter Care Teams Central Stores Attendant Relationship Specialty Start Date End Date Major Garcia MD PCP - General Family Medicine 10/09/22 04/15/23 Major Garcia MD [address] [place] [address] PCP - General Family Medicine 04/16/23 documented as of this encounter
--- OUTSIDE RECORDS SUMMARY | 2024-11-12 10:30 | XMS_ITS | Encounter Summary ---
Author Organization [facility] Address [address] [place] [address] Phone Care Team Providers Care Machine Repair Person Name Role Phone Major Garcia MD Primary Care Provider + Encounter Details Date Type Department Care Team (Late st Contact Info) Description 07/04/2023 Scanned Document [facility] [address] [place] [address] [place] [address] Department of Neurological Surgery [place] [phone] Social History Tobacco Use Types Packs/Day Years [...] place to sleep or slept in a [facility] (including now)? No 06/01/2023 Sex and Gender [...] documented as of this encounter Care Teams Machine Repair Person Relationship Specialty Start Date End Date Major Garcia MD [address] [place] [address] PCP - General Family Medicine 05/17/23 documented as of this encounter
--- OUTSIDE RECORDS SUMMARY | 2024-11-12 10:30 | XMS_ITS | Encounter Summary ---
Author Organization [facility] Address [address] [place] [address] Phone Care Team Providers Care Flap Curer Name Role Phone Major Garcia MD Primary Care Provider + Encounter Details Date Type Department Care Team (Late st Contact Info) Description 07/25/2023 Scanned Document [facility] [address] [place] [address] [place] [address] Department of Neurological Surgery [place] [phone] Social History Tobacco Use Types Packs/Day Years [...] place to sleep or slept in a assisted (including now)? No 06/01/2023 Sex and Gender [...] documented as of this encounter Care Teams Flap Curer Relationship Specialty Start Date End Date Major Garcia MD [address] [place] [address] PCP - General Family Medicine 05/17/23 documented as of this encounter
--- OUTSIDE RECORDS SUMMARY | 2024-11-12 10:30 | XMS_ITS | Clinical Summary ---
Author Organization [facility] Address [address] [place] [address] Phone Care Team Providers Care Cassandra Architect Name Role Phone Major Garcia MD Primary Care Provider + Allergies No known active allergies Medications metFORMIN (Glucophage) 1,000 mg tablet Take 1 tablet (1,000 mg) by mouth 2 times daily (morning and late afternoon). Active glipiZIDE (Glucotrol) 10 mg tablet Take 1 tablet (10 mg) by mouth 2 times a day before meals. Active folic acid (Folvite) 1 mg tablet Take 1 tablet (1 mg) by mouth once daily. Active pioglitazone (Actos) 45 mg tablet Take 1 tablet (45 mg) by mouth once daily. Active empagliflozin (Jardiance) 25 mg Take 1 tablet (25 mg) by mouth once daily. Active acetaminophen (Tylenol) 325 mg tabletIndicatio ns:Postoperativ e pain Take 2 tablets (650 mg) by mouth every 6 hours. Take every 6 hours scheduled while having pain then take only as needed for Mild pain 4 Active Additional Information Patient not taking.Reported on 08/14/2023 methotrexate (Trexall) 2.5 mg tabletIndicatio ns:Psoriatic arthritis (Multi) Take 3 tablets (7.5 mg total) by mouth 1 (one) time per week. Follow directions carefully, and ask to explain any part you do not understand. Take exactly as directed. Takes on Sunday. DO NOT RESUME UNTIL 06/15/2023 4 Active leflunomide (Arava) 20 mg tabletIndicatio ns:Psoriatic arthritis (Multi) Take 1 tablet (20 mg) by mouth once daily. DO NOT RESUME UNTIL 06/15/2023 Do not start before June 15, 2023. 4 Active cyclobenzaprine (Flexeril) 10 mg tabletIndicatio ns:Postoperativ e pain Take 1 tablet (10 mg) by mouth 3 times a day as needed for muscle spasms for up to 7 days. 21 tablet 4 Active Active Problems Problem Noted Date Diagnosed Date [...] 01/06/2023 Pain in right hip 10/16/2022 Other prison (current) drug therapy Psoriatic arthropathy (Multi) 07/19/2022 Poorly controlled diabetes mellitus (Multi) 08/25 Resolved Problems Problem Noted Date Diagnosed Date Resolved Date Malignant neoplasm of prostate (Multi) 09/15/2021 04/30/2023 Family History Medical History Relation Name Comments Stroke Brother Bhavik Tomlin Cancer Father Bhavik Tomlin Aortic aneurysm Mother Relation Name Status Comments Brother Bhavik Tomlin Father Bhavik Tomlin Mother Social History Tobacco Use Types Packs/Day Years Used Date Smoking Tobacco: Never Smokeless Tobacco: Never Tobacco Cessation:Counseling Given: Not Answered Alcohol Use Standard Drinks/Week Comments Not Currently [...] on file Sexual Orientation Not on file Last Filed Vital Signs Vital Sign Reading Time Taken Comments Blood Pressure 193/94 05/27/2024 10:45 AM EST Pulse 66 05/27/2024 10:45 AM EST Temperature 35.7 C (96.3 F) 05/27/2024 10:45 AM EST Respiratory Rate 20 05/27/2024 10:45 AM EST Oxygen Saturation 98% 06/06/2023 4:00 PM EDT Inhaled Oxygen Concentration - - Weight 92.5 kg (204 lb) 05/27/2024 10:45 AM EST Height 177.8 cm (5' 10 ) 08/14/2023 2:31 PM EDT Body Mass Index 29.27 08/14/2023 2:31 PM EDT Plan of Treatment Health Maintenance Due Date Last Done Comments CT Colonography 1962 Diabetes: Urine Protein Screening 1962 FIT-DNA (Cologuard) 1962 FIT 1962 HIV Screening 1962 Lipid Panel 1962 Sigmoidoscopy 1962 Yearly Adult Physical 1962 MMR Vaccines (1 of 1 - Standard series) 1963 Diabetes: Retinopathy Screening 1972 Hepatitis C Screening 1980 Pneumococcal Vaccine (1 of 2 - PCV) 1981 DTaP/Tdap/Td Vaccines (1 - Tdap) 1984 PSA Prostate Cancer Screening 2012 Zoster Vaccines (1 of 2) 2012 COVID-19 Vaccine (2 - Jansse n risk series) 09/30/2020 09/02/2020 RSV High Risk: (Elderly (60+ ) or Population) (1 - Risk 60-74 years 1-dose series) 2022 Diabetes: Hemoglobin A1C 07/24/2023 04/24/2023 Colonoscopy 10/02/2024 10/02/2014 Colorectal Cancer Screening 10/02/2024 Influenza Vaccine (#1) 2024 6, 01/06/2015 HIB Vaccines Aged Out No longer eligi ble based on patient's age to complete this topic HPV Vaccines Aged Out No longer eligi ble based on patient's age to complete this topic Hepatitis A Vaccines Aged Out No long er eligible based on patient's age to complete this topic Hepatitis B Vaccines Aged Out No long er eligible based on patient's age to complete this topic IPV Vaccines Aged Out No longer eligi ble based on patient's age to complete this topic Meningococcal Vaccine Aged Out No kennedy luanne eligible based on patient's age to complete this topic Rotavirus Vaccines Aged Out No longer eligible based on patient's age to complete this topic Goals Goal Patient Goal Type Associated Problems Recent Progress Patient-Stated? Author Help patient manage spine surgery Care Plan Patient has spine surgery No Jose Roberto Pineda MD Medical Devices Implanted Type Area Pediatric Surgeon Device Identifier Shelf Expiration Date Model / Serial / Lot Modulus Tlif-A,8x11x 30mm 8 Degree Implanted:Qt y: 1 on 06/01/2023 by Jose Roberto Pineda MD at [facility] Cage Bilatera l: Spine Lumbar [employer] 09/07/2025 [id number] / / [id number] Description:Per meagan melton dr 06/03 Moduls Tlif- [id number] 8 Degree Implanted:Qt y: 1 on 06/01/2023 by Jose Roberto Pineda MD at [facility] Cage Bilatera l: Spine Lumbar [employer] 03/06/2026 [id number] / / [id number] Description:Per meagan pate 06/03 Infuse Bmp Small - [id number] - [id number] Implanted:Qt y: 1 on 06/01/2023 by Jose Roberto Pineda MD at [facility] Graft N/A: Spine Lumbar [employer]:SOFAMOR DANEK 04/26/2025 [id number] / [id number] / Screw, Reline Lock, 5.5mm Open Tulip - [id number] Implanted:Qt y: 16 on 06/01/2023 by Jose Roberto Pineda MD at [facility] Neuro Interventional Implant Bilatera l: Spine Lumbar [employer] [id number] / / Screw, Reline-O, 7.5x50mm 2s Polyaxial - [id number] Implanted:Qt y: 1 on 06/01/2023 by Jose Roberto Pineda MD at [facility] Screw Bilatera l: Spine Lumbar [employer] [id number] / / Reline-O Conn, 5-6/5-6mm O-O Med - [id number] Implanted:Qt y: 1 on 06/01/2023 by Jose Roberto Pineda MD at [facility] Screw Bilatera l: Spine Lumbar [employer] [id number] / / Screw, Reline-O, 8.5x50mm 2s Polyaxial - [id number] Implanted:Qt y: 1 on 06/01/2023 by Jose Roberto Pineda MD at [facility] Screw Bilatera l: Spine Lumbar [employer] [id number] / / Screw, Reline-O, 8.5x80mm 2s Poly Iliac - [id number] Implanted:Qt y: 2 on 06/01/2023 by Jose Roberto Pineda MD at [facility] Screw Bilatera l: Spine Lumbar [employer] [id number] / / Screw, Reline-O, 6.5x45mm 2s Polyaxial - [id number] Implanted:Qt y: 5 on 06/01/2023 by Jose Roberto Pineda MD at [facility] Screw Bilatera l: Spine Lumbar [employer] [id number] / / Screw, Reline-O, 7.5x45mm 2s Polyaxial - [id number] Implanted:Qt y: 4 on 06/01/2023 by Jose Roberto Pineda MD at [facility] Screw Bilatera l: Spine Lumbar [employer] [id number] / / Unid Exp Ti Franklin 5.5mm 4+ Lv Implanted:Qt y: 2 on 06/01/2023 by Jose Roberto Pineda MD at [facility] Spinal Hardware N/A: Spine Lumbar [employer] 03/26/2027 [id number] / [id number] / 20mm Offset Open Implanted:Qt y: 1 on 06/01/2023 by Jose Roberto Pineda MD at [facility] Spinal Hardware Bilatera l: Spine Lumbar [employer] [id number] / / Description:Per bill only shaniqua r 06/03 Procedures Procedure Name Priority Date/Time Associated Diagnosis Comments HEMOGLOBIN A1C Routine 04/24/2023 11:24 AM EST Spinal stenosis of lumbar region with neurogenic claudication from Last 3 Months or Most Recently Relevant to Health Maintenance Results * (ABNORMAL) Hemoglobin A1c (04/24/2023 11:24 AM EST) Hemoglobin A1C 6.8(H) see below % 12:39 AM EST [facility] Estimated Average Glucose 148 Not Established mg/dL 04/25/2023 12:39 AM EST [facility] Blood Venous blood specimen / Unknown Venipuncture / Unknown 04/24/2023 11:24 AM EST 04/24/2023 11:24 AM EST Narrative [facility] - 04/25/2023 12:39 AM EST Diagnosis of Diabetes-Adults Non-Diabetic: < or = 5.6% Increased risk for developing diabetes: 5.7-6.4% Diagnostic of diabetes: > or = 6.5% Monitoring of Diabetes Age (y)....................... Therapeutic Goal (%) Adults: >18.........................<7.0 Pediatrics: 13-18...................<7.5 Pediatrics: 7-12....................<8.0 Pediatrics: 0-6..................... 7.5-8.5 [place] [employer]. Diabetes Care 33(S1), Mar 2009 us Jose Roberto Pineda MD LAB BLOOD ORDERABLES Final Result [facility] [id number] [id number] from Last 3 Months or Most Recently Relevant to Health Maintenance Additional Health Concerns Active Problems Noted Date Diagnosed Date Patient has spine surgery 04/24/2023 Insurance GENERIC COMMERCIAL [employer]CIAL [employer] GENERIC COMMERCIAL [employer] Advance Directives For more information, please contact: [phone] (Available ) * Full Code (Latest Code Status on File) Date Activated Date Inactivated Comments 06/01/2023 7:32 PM Question Answer Comments Plan of Care: Code Status Discussion Completed Decision Maker: Patient Care Teams Cassandra Architect Relationship Specialty Start Date End Date Major Garcia MD [address] [place] [address] PCP - General Family Medicine 05/17/23
--- OUTSIDE RECORDS SUMMARY | 2024-11-12 10:30 | XMS_ITS | Clinical Summary ---
Author Organization [facility] Address [address] [place] [address] Care Team Providers Care Fuller Brush Man Name Role Phone Major Garcia MD Primary Care Provider [phone] Allergies No known active allergies Medications folic acid (Folvite) 1 MG tablet Take 1 mg by mouth in the morning. Active leflunomide (Arava) 20 MG tablet Take 20 mg by mouth in the morning. Active methotrexate 2.5 MG tablet Take 7.5 mg by mouth 1 (one) time per week. Follow directions carefully, and ask to explain any part you do not understand. Take exactly as directed. Active triamcinolone (Kenalog) 0.5 % creamIndications: Flexural psoriasis Apply topically 3 (three) times a day 60 g 3 4 Active empagliflozin (Jardiance) 25 MGIndications:Typ e 2 diabetes mellitus with hyperglycemia, without long-term current use of insulin (HCC) TAKE 1 TABLET(25 MG) BY MOUTH IN THE MORNING 90 tablet 3 4 Active losartan (Cozaar) 25 MG tabletIndications :Essential hypertension TAKE 1 TABLET(25 MG) BY MOUTH DAILY 90 tablet 3 4 Active atorvastatin (Lipitor) 40 MG tabletIndications :Type 2 diabetes mellitus with hyperglycemia, without long-term current use of insulin (HCC) TAKE 1 TABLET(40 MG) BY MOUTH AT BEDTIME 90 tablet 3 4 Active glipiZIDE (Glucotrol) 10 MG tabletIndications :Type 2 diabetes mellitus with hyperglycemia, without long-term current use of insulin ([facility]) TAKE 1 TABLET BY MOUTH TWICE DAILY 180 tablet 3 5 Active metFORMIN (Glucophage) 1000 MG tabletIndications :Essential hypertension TAKE 1 TABLET BY MOUTH TWICE DAILY 180 tablet 3 5 Active OneTouch Ultra Test test stripIndications: Type 2 diabetes mellitus with hyperglycemia, without long-term current use of insulin (HCC) USE DIRECTED ONCE DAILY 50 strip 3 5 Active cyclobenzaprine (Flexeril) 10 MG tabletIndications :Lumbar spondylosis Take 1 tablet (10 mg) by mouth 3 (three) times a day as needed for muscle spasms 30 tablet 2 5 Active pioglitazone (Actos) 45 MG tabletIndications :Type 2 diabetes mellitus with hyperglycemia, without long-term current use of insulin (HCC) TAKE 1 TABLET(45 MG) BY MOUTH IN THE MORNING 90 tablet 3 5 Active Active Problems Problem Noted Date Diagnosed Date Annual physical exam 01/15/2024 Assessment & Plan (01/15/2024 9:23 AM EDT): Reviewed labs. Discussed proper diet and regular aerobic exercise. Need aerobic exercise 5-6 days a week for 30 minutes at a time. Smaller portions and limit total calories. Colonoscopy every 10 years. Tetanus every 10 years. Advised not to smoke. Discussed daily Aspirin therapy. 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 Assessment & Plan (07/16/2023 9:50 AM EDT): Rash improved and use steroid cream PRN. Assessment & Plan (04/16/2023 3:14 PM EST): Rash appears to be psoriasis and treat with prednisone. Use steroid cream PRN. Type 2 diabetes mellitus wit h hyperglycemia, without long-term current use of insulin 03/07/2023 Assessment & Plan (07/16/2024 9:49 AM EDT): Reports BS controlled and due for A1C. Stick to ADA diet and limit carbs. Assessment & Plan (01/15/2024 9:23 AM EDT): Reports BS controlled and last A1C 6.3. Stick to ADA diet and limit carbs. Assessment & Plan (10/17/2023 9:52 AM EDT): Reports BS controlled and monitor PRN. Assessment & Plan (07/16/2023 9:48 AM EDT): Reports BS controlled and monitor PRN. Assessment & Plan (04/16/2023 3:14 PM EST): BS improved with jardiance and continue. Stick to ADA diet and limit carbs. Assessment & Plan (03/07/2023 11:30 AM EST): Reports BS controlled and due for A1C. Stick to ADA diet and limit carbs. Psoriatic arthritis 03/07/2023 Assessment & Plan (07/16/2023 9:50 AM EDT): Pain stable and continue methotrexate. Follow with specialists. Lumbar spondylosis 03/07/2023 Assessment & Plan (07/16/2024 9:48 AM EDT): Pain recently worse and treat with prednisone. Use flexeril PRN. Assessment & Plan (10/17/2023 9:52 AM EDT): Pain doing well and use OTC PRN. Assessment & Plan (07/16/2023 9:49 AM EDT): Pain improved after surgery and continue PT. Follow up with specialists. Assessment & Plan (04/16/2023 3:14 PM EST): Pain unchanged and follow up with surgeon. Assessment & Plan (03/07/2023 11:30 AM EST): Continued pain and radicular symptoms. No improvement with injections and abnormal MRI. Follow up with surgeon. Essential hypertension 03/07/2023 Assessment & Plan (07/16/2024 9:48 AM EDT): BP elevated today but reports normal at home and monitor PRN. Assessment & Plan (01/15/2024 9:23 AM EDT): BP improved and monitor PRN. Assessment & Plan (10/17/2023 9:52 AM EDT): BP elevated over the past few visits and add losartan. Monitor PRN. Assessment & Plan (07/16/2023 9:49 AM EDT): BP controlled and monitor PRN. Assessment & Plan (04/16/2023 3:14 PM EST): BP controlled and monitor PRN. Family History Medical History Relation Name Comments Cancer Father Diabetes Father Lung cancer Father Coronary artery disease Mother Relation Name Status Comments Father Mother Social History Tobacco Use Types Packs/Day [...] 07/09/2024 How often do you attend chur ch or roman catholic services? 1 to 4 times per year 07/09/2024 Do you belong to any clubs o r organizations such as faith groups, unions, fraternal or athletic groups, or [...] care, and heating? Not very hard 07/09/2024 [facility] - Occupational Stress [...] place to sleep or slept in a alf (including now)? Patient refused 02/28/2023 Housing Stability [...] any time in the past 12 m [facility], were you homeless or living in a alf (including now)? No 07/09/2024 Sex and Gender Information Value Date Recorded Sex Assigned at Not on file Legal Sex Male 7:00 PM EDT Gender Identity Not on file Sexual Orientation Not on file Last Filed Vital Signs Vital Sign Reading Time Taken Comments Blood Pressure 150/72 07/16/2024 9:15 AM EDT Pulse 69 07/16/2024 9:15 AM EDT Temperature 36.4 C (97.5 F) 07/16/2024 9:15 AM EDT Respiratory Rate 18 07/16/2024 9:15 AM EDT Oxygen Saturation 97% 07/16/2024 9:15 AM EDT Inhaled Oxygen Concentration - - Weight 94.3 kg (208 lb) 07/16/2024 9:15 AM EDT Height 177.8 cm (5' 10 ) 07/16/2024 9:15 AM EDT Body Mass Index 29.84 07/16/2024 9:15 AM EDT Plan of Treatment Upcoming Encounters Date Type Department Care Team (Late st Contact Info) Description 01/16/2025 9:00 AM EDT Office Visit [facility] [address] [place] [address] Major Garcia MD [address] [place] [address] Health Maintenance Due Date Last Done Comments CT Colonography 1962 FIT-DNA 1962 FIT 1962 FOBT 1962 Sigmoidoscopy 1962 Diabetes: Hemoglobin A1C 04/19/2024 024, 04/24/2023, 04/24/2023 Colonoscopy 10/02/2024 10/02/2014 Colorectal Cancer Screening 10/02/2024 Diabetes: Urine Protein Screening 10/17/2024 024, 10/10/2022 Influenza Vaccine (#1) 2024 01/19/2016, 2014 Diabetes: Retinopathy Screening 07/23/2026 , 07/13/2022 Procedures Procedure Name Priority Date/Time Associated Diagnosis Comments DIABETIC RETINOPATHY SCREENING - OU - BOTH EYES Routine 07/23/2024 1:01 PM EDT COLONOSCOPY Routine 10/02/2014 12:00 PM EDT from Last 3 Months or Most Recently Relevant to Health Maintenance Results * Diabetic Retinopathy Screening - OU - Both Eyes (07/23/2024 1:01 PM EDT) Anatomical Region Laterality Modality Head Other us Major Garcia MD OPHTH PHOTOGRAPHY Final Result * Colonoscopy (10/02/2014 12:00 PM EDT) Anatomical Region Laterality Modality Endoscopy 10/02/2014 12:0 0 PM EDT Narrative 10/02/2014 12:00 PM EDT PERFORMED AT [facility] LOCATION:[id number] Internal Hemorrhoids Procedure Note CONVERSION, GENERIC - 08/10/2022 PERFORMED AT [facility] LOCATION:[id number] Internal Hemorrhoids Lyric Blackwell MD ENDOSCOPY PROCEDURE ORDERABLES F inal Result from Last 3 Months or Most Recently Relevant to Health Maintenance Insurance [employer] Care Teams Fuller Brush Man Relationship Specialty Start Date End Date Major Garcia MD [address] [place] [id number] PCP - General Family Medicine 04/16/23
--- OUTSIDE RECORDS SUMMARY | 2024-11-12 10:31 | XMS_ITS | Encounter Summary ---
Author Organization [facility] Address [address] [place] [address] Care Team Providers Care Car Customizer Name Role Phone Major Garcia MD Primary Care Provider [phone] Encounter Details Date Type Department Care Team (Late st Contact Info) Description 07/10/2023 Clinisync Result Encounter [facility] External Department Unsolicited Provider, Generic External Data Social History Tobacco Use Types Packs/Day Years [...] week 02/28/2023 How often do you attend [facility] or episcopalian services? 1 to 4 times per year 02/28/2023 Do you belong to any clubs o r organizations such as anglican groups, unions, fraternal or athletic groups, or [...] care, and heating? Not very hard 02/28/2023 [facility] - [...] place to sleep or slept in a senior care (including now)? Patient refused 02/28/2023 Housing Stability [...] 01/16/2025 9:00 AM EDT [facility] [address] [place] [address] Major Garcia MD [address] [place] [address] documented as of this encounter Procedures Procedure Name Priority Date/Time Associated Diagnosis Comments XR SCOLIOSIS COMPLETE INCLUDING SUPINE AND ERECT 07/10/2023 11:23 AM EDT documented in this encounter Results * X-ray scoliosis complete including supine and erect (07/10/2023 11:23 AM EDT) Anatomical Region Laterality Modality Spine Radiographic Vicky ging 07/10/2023 11:2 3 AM EDT Narrative 07/11/2023 3:27 PM EDT Please do both AP and lateral views. ( Total of 2 views ) Please have the patient standing without assistance of any kind and with knees in neutral position. The patient should stand relaxed, bend their elbows, and place their fists on the ipsilateral clavicles. Interpreted By: Austen Bass, STUDY: XR SCOLIOSIS 2 VIEW (NON EOS); ; 07/10/2023 11:36 am INDICATION: Signs/Symptoms:post op. COMPARISON: 04/24/2023 ACCESSION NUMBER(S): [id number] ORDERING CLINICIAN: ISHA VALENTINO FINDINGS: Two views [...] Austen Bass 07/11/2023 3:27 PM Dictation workstation: Scopely Procedure Note Radiology, Radiologist, MD - 07/11/2023 Please do both AP and lateral views. ( Total of 2 views ) Please have thepatient standing without assistance of any kind and with knees in neutralposition. The patient should stand relaxed, bend their elbows, and placetheir fists on the ipsilateral clavicles. Interpreted By: Austen Bass, STUDY: XR SCOLIOSIS 2 VIEW (NON EOS); ; 07/10/2023 11:36 am INDICATION: Signs/Symptoms:post op. COMPARISON: 04/24/2023 ACCESSION NUMBER(S): [id number] ORDERING CLINICIAN: ISHA VALENTINO FINDINGS: Two views [...] Austen Bass 07/11/2023 3:27 PM Dictation workstation: [id number] us Generic External Data Provider IMG XR PROCEDURES Final Result documented in this encounter Visit Diagnoses Not on filedocumented in this encounter Care Teams Car Customizer Relationship Specialty Start Date End Date Major Garcia MD [address] [place] [address] PCP - General Family Medicine 04/16/23 documented as of this encounter
--- OUTSIDE RECORDS SUMMARY | 2024-11-12 10:31 | XMS_ITS | Encounter Summary ---
Author Organization [facility] Address [address] [place] [address] Care Team Providers Care [place] Actor Name Role Phone Major Garcia MD Primary Care Provider [phone] Major Garcia MD Primary Care Provider [phone] Encounter Details Date Type Department Care Team (Late st Contact Info) Description 03/08/2023 Orders Only [facility] [address] [place] [phone] Major Garcia MD [address] [place] [phone] Type 2 diabetes mellitus with hyperglycemia, without long-term current use of insulin (HCC) (Primary Dx) Social History Tobacco Use Types Packs/Day Years [...] 02/28/2023 How often do you attend chur or caodaism services? 1 to 4 times per year 02/28/2023 Do you belong to any clubs o r organizations such as mormon groups, unions, fraternal or athletic groups, or [...] care, and heating? Not very hard 02/28/2023 [facility] - Occupational Stress [...] the money to buy more. Never true 12/06/20 23 Within the past 12 months, t [...] place to sleep or slept in a fci (including now)? Patient refused 02/28/2023 Housing Stability [...] suspected to have Coronavirus/COVID-19? No / Unsure 02/28/2023 7:10 PM EST documented as of this encounter Plan of Treatment Upcoming Encounters Date Type Department Care Team (Late st Contact Info) Description 01/16/2025 9:00 AM EDT Office Visit [facility] [address] [place] [address] Major Garcia MD [address] [place] [address] documented as of this encounter Visit Diagnoses Diagnosis Type 2 diabetes mellitus with hyperglycemia, without long-term current use of insulin (HCC)- Primary documented in this encounter Care Teams [place] Actor Relationship Specialty Start Date End Date Major Garcia MD PCP - General Family Medicine 10/09/22 04/15/23 Major Garcia MD [address] [place] [address] PCP - General Family Medicine 04/16/23 documented as of this encounter
--- OUTSIDE RECORDS SUMMARY | 2024-11-12 10:31 | XMS_ITS | Clinical Summary ---
Author Organization [facility] tem Address [id number] [address] [id number] Care Team Providers Care Clinical Services Consultant Name Role Phone Unavailable Primary Care Provider Unavailabl e Social History Tobacco Use Types Packs/Day Years Used Date Smoking Tobacco: Never Assessed Childcare Answer Date Recorded Childcare Unknown 09/04/2018 Employment Answer Date Recorded Employment Unknown 09/04/2018 Purpose - Life Answer Date Recorded Purpose and direction in life Unknown Sex and Gender Information Value Date Recorded Sex Assigned at Not on file Legal Sex Male 11:23 AM EDT Gender Identity Not on file Sexual Orientation Not on file Plan of Treatment Health Maintenance Due Date Last Done Comments Depression Screening 1974 Tobacco Screening 1974 Adult BMI Screening 1980 DTaP,Tdap and Td Vaccines (1 - Tdap) 1981 Zoster (Shingles) Vaccine (1 of 2) 2012 Influenza Vaccine 11/24/2024 [employer] Devices Not on file Insurance [employer]
--- OUTSIDE RECORDS SUMMARY | 2024-11-12 10:31 | XMS_ITS | Encounter Summary ---
Author Organization [facility] Address [address] [place] [address] Care Team Providers Care Capacitor Tester Name Role Phone Major Garcia MD Primary Care Provider [phone] Encounter Details Date Type Department Care Team (Late st Contact Info) Description 08/14/2023 Clinisync Result Encounter [facility] External Department Unsolicited [...] week 02/28/2023 How often do you attend [facility] or latter-day services? 1 to 4 times per year 02/28/2023 Do you belong to any clubs o r organizations such as yazidism groups, unions, fraternal or athletic groups, or [...] care, and heating? Not very hard 02/28/2023 [facility] - Occupational [...] place to sleep or slept in a prison (including now)? Patient refused 02/28/2023 Housing Stability [...] 01/16/2025 9:00 AM EDT [facility] [address] [place] [address] Major Garcia MD [address] [place] [address] documented as of this encounter Procedures Procedure Name Priority Date/Time Associated Diagnosis Comments XR SCOLIOSIS COMPLETE INCLUDING SUPINE AND ERECT 08/14/2023 2:03 PM EDT documented in this encounter Results * X-ray scoliosis complete including supine and erect (08/14/2023 2:03 PM EDT) Anatomical Region Laterality Modality Spine Radiographic Vicky ging 08/14/2023 2:03 PM EDT Narrative 08/16/2023 5:16 PM EDT Please do both AP and lateral views. ( Total of 2 views ) Please have the patient standing without assistance of any kind and with knees in neutral position. The patient should stand relaxed, bend their elbows, and place their fists on the ipsilateral clavicles. Interpreted By: Carmenza Garcia, STUDY: XR SCOLIOSIS 2 VIEW (NON EOS) INDICATION: Signs/Symptoms:Lumbar Stenosis for assesment of alignment. COMPARISON: 07/10/2023 ACCESSION NUMBER(S): [id number] ORDERING CLINICIAN: ISHA VALENTINO FINDINGS: There is [...] is intact without perihardware fractures or lucencies. Vxce-eu-subxsqeh spondylosis noted at T12-L1 and L1-2. Chronic appearing compression deformity is noted of T12 vertebral body with mild anterior height loss. There is positive sagittal balance. No significant coronal balance. IMPRESSION: Postsurgical changes as described above without hardware complication. Mild S shaped thoracolumbar scoliosis. Positive sagittal balance MACRO: None. Signed by: Carmenza Garcia 08/16/2023 5:16 PM Dictation workstation: [id number] Procedure Note Radiology, Radiologist, MD - 08/16/2023 Please do both AP and lateral views. ( Total of 2 views ) Please havethe patient standing without assistance of any kind and with knees inneutral position. The patient should stand relaxed, bend their elbows, andplace their fists on the ipsilateral clavicles. Interpreted By: Carmenza Garcia, STUDY: XR SCOLIOSIS 2 VIEW (NON EOS) INDICATION: Signs/Symptoms:Lumbar Stenosis for assesment of alignment. COMPARISON: 07/10/2023 ACCESSION NUMBER(S): [id number] ORDERING CLINICIAN: ISHA VALENTINO FINDINGS: There is [...] is intact without perihardware fractures or lucencies. Pnph-jp-kgisuseo spondylosis noted at T12-L1 and L1-2. Chronic appearing compression deformity is noted of T12 vertebral body with mild anterior height loss. There is positive sagittal balance. No significant coronal balance. IMPRESSION: Postsurgical changes as described above without hardware complication. Mild S shaped thoracolumbar scoliosis. Positive sagittal balance MACRO: None. Signed by: Carmenza Garcia 08/16/2023 5:16 PM Dictation workstation: [id number] Generic External Data Provider IMG XR PROCEDURES Final Result documented in this encounter Visit Diagnoses Not on filedocumented in this encounter Care Teams Capacitor Tester Relationship Specialty Start Date End Date Major Garcia MD [address] [place] [address] PCP - General Family Medicine 04/16/23 documented as of this encounter
--- OUTSIDE RECORDS SUMMARY | 2024-11-12 10:39 | XMS_ITS | CCD ---
Author Organization [facility] Care Team Providers Care Marzipan Maker Name Role Phone VALERIE, DR RANDALL Attending Unavailable NADERER, DR MAJOR Martinez Primary Care Unavailable PADILLA, DR RANDALL Consulting Unavailable PADILLA, DR RANDALL Admitting Unavailable APDILLA, DR RANDALL Attending Unavailable NADERER, DR MAJOR [...] Unavailable MD Major Stevens Primary Care Provider [phone] WIA Barney Sully Attending Provider MD Abel Sandoval Attending Provider MD Major Stevens Primary Care Provider [phone] Ector SECOND CRUSHER Sully Attending Provider MD Abel Sandoval Attending Provider Abel Sandoval [...] Admitting Unavailable KASLIWAL, ISHA K Attending Unavailable MAJOR STEVENS Primary Care Unavailabl e KASLIWAL, ISHA K Referring Unavailable MAJOR STEVENS Primary Care Unavailabl e ALMADHYANSREEKANTH TiradoA Referring Unavailable MAJOR STEVENS Primary Care Unavaildona e Major Stevens MD Primary Care Provider [phone] KASLIWAL, ISHA K Attending Unavailable MAJOR STEVENS Primary Care Unavailabl e KASLIWAL, ISHA K Referring Unavailable MAJOR STEVENS Primary Care Unavailabl e KASLIWAL, ISHA K Attending Unavailable MAJOR STEVENS Primary Care Unavailabl e KASLIWAL, ISHA K Referring Unavailable MAJOR STEVENS Primary Care Unavailabl e KASLIWAL, ISHA K Attending Unavailable MAJOR STEVENS Primary Care Unavailabl e KASLIWAL, ISHA K Referring Unavailable MAJOR STEVENS Primary Care Unavailabl e MAJOR STEVENS Attending Unavailable BLACKSTONIVETTE Attending Unavailable KASLIWAL, ISHA Referring Unavailable BRINKBRITNEY Attending Unavailable KASLIWAL, ISHA Referring Unavailable BRINK, [...] KASLIWAL, ISHA Referring Unavailable NADERERMAJOR Attending Unavailable NADERERMAJOR Attending Unavailable Medications Current Medications Medication Drug Class(es) Dates Sig (Normalized) Sig (Original) acetaminophen 325 mg oral tablet (8 sources) Start: 06-06-2023 acetaminophen (Tylenol) 325 mg [...] at Discharge) atorvastatin 40 mg oral tablet (11 sources) HMG-CoA Reductase Inhibitor Start: 10-17-2023 take 1 tablet by mouth at bedtime atorvastatin (Lipitor) 40 MG tablet Indications: Type 2 diabetes mellitus with hyperglycemia, without long-term current use of insulin ([facility]) TAKE 1 TABLET(40 MG) BY MOUTH AT [...] 11:00pm cyclobenzaprine hydrochloride 10 mg oral tablet (7 sources) Muscle Relaxant Start: 07-16-2024 take 1 tablet by mouth three times daily as needed for muscle spasms cyclobenzaprine (Flexeril) 10 MG tablet Indications: Lumbar spondylosis Take 1 tablet (10 mg) by mouth 3 (three) times a day as needed for muscle spasms 30 tablet 2 07/16/2024 Active Start: 07-16-2024 take 1 tablet by gina th three times daily as needed for muscle spasms cyclobenzaprine (Flexeril) 10 MG tablet Indications: Lumbar spondylosis Take 1 tablet (10 mg) by mouth 3 (three) times a day as needed for muscle spasms 30 tablet 2 07/16/2024 Active Start: 07-16-2024 take 1 tablet by gina th three times daily as needed for muscle spasms cyclobenzaprine (Flexeril) 10 MG tablet Indications: Lumbar spondylosis Take 1 tablet (10 mg) by mouth 3 (three) times a day as needed for muscle spasms 30 tablet 2 07/16/2024 Active Start: 06-01-2023 End: 06-13-2023 take 1 tablet by mouth three times daily as needed for muscle spasms cyclobenzaprine (Flexeril) 10 mg tablet Indications: Postoperative pain Take 1 tablet (10 mg) by mouth 3 times a day as needed for muscle spasms for up to 7 days. 21 tablet 06/06/2023 Active docusate sodium 50 mg / sennosides, halfway 8.6 mg oral tablet (2 sources) Start: 06-01-2023 End: 06-13-2023 take 2 tablets by mouth twice daily sennosides-docusate sodium (Marycruz-Colace) 8.6-50 mg tablet Indications: Constipation due to pain medication Take 2 tablets by mouth 2 times a day for 7 days. Take while taking pain medication oxycodone to prevent constipation 28 tablet 0 06/06/2023 06/13/2023 Active empagliflozin 25 mg oral tablet (20 sources) Sodium-Glucose Cotransporter 2 Inhibitor Start: 07-05-2023 take 1 tablet by mouth in the morning empagliflozin (Jardiance) 25 MG Indications: Type 2 diabetes mellitus with hyperglycemia, without long-term current use of insulin (CMS/HCC) TAKE 1 TABLET(25 MG) BY MOUTH IN THE MORNING 90 tablet 3 07/05/2023 Active folic acid 1 mg oral tablet (20 sources) take 1 tablet by mouth in [...] 2018 11:00pm glipiZIDE 10 mg oral tablet (20 sources) Sulfonylurea Start: 06-09-2024 take 1 tablet by mouth twice daily glipiZIDE (Glucotrol) 10 MG tablet Indications: Type 2 diabetes mellitus with hyperglycemia, without long-term current use of insulin (CMS/HCC) TAKE 1 TABLET BY MOUTH TWICE DAILY 180 tablet 3 06/09/2024 Active Start: 05-09-2023 take 1 tablet by gina th twice daily glipiZIDE (Glucotrol) 10 MG tablet Indications: Type 2 diabetes mellitus with hyperglycemia, without long-term current use of insulin (CMS/HCC) TAKE 1 TABLET BY MOUTH TWICE [...] wounds. losartan potassium 25 mg oral tablet (11 sources) Angiotensin 2 Receptor Jewel Start: 10-17-2023 take 1 tablet by mouth once daily losartan (Cozaar) 25 MG tablet Indications: Essential hypertension (CMS/HCC) TAKE 1 TABLET(25 MG) BY MOUTH DAILY 90 tablet 3 10/17/2023 Active metFORMIN hydrochloride 1000 mg oral tablet (20 sources) Biguanide Start: 06-09-2024 take 1 tablet by mouth twice daily metFORMIN (Glucophage) 1000 MG tablet Indications: Essential hypertension (CMS/HCC) TAKE 1 TABLET BY MOUTH TWICE DAILY 180 tablet 3 06/09/2024 Active Start: 05-09-2023 take 1 tablet by gina th twice daily metFORMIN (Glucophage) 1000 MG tablet [...] less than 8, Starting on Sun06/01/23 at 193, Phase II/On Unit HOLD MED ADMIN Infusion and notify H.O. immediately Start: 06-01-2023 0.2 mg, intrav enous, Every 5 min PRN, respiratory depression, Starting on Sun06/01/23 at 193, Phase II/On Unit If respiratory rate is [...] (O2) therapy pioglitazone 45 mg oral tablet (20 sources) Peroxisome Proliferator Receptor alpha Agonist, Peroxisome [...] November 11, 2018 11:00pm polyethylene glycol 3350 17836 mg powder for oral solution (2 sources) Osmotic Laxative Start: 06-01-2023 End: 06-04-2023 polyethylene glycol (Glycolax, Miralax) packet 17 g predniSONE 50 mg oral tablet (3 sources) Start: 07-16-2024 End: 07-22-2024 take 1 tablet by mouth once daily predniSONE (Deltasone) 50 MG tablet Indications: Lumbar spondylosis Take 1 tablet (50 mg) by mouth Daily for 6 days 6 tablet 07/16/2024 07/22/2024 Active Promethazine (1 source) Phenothiazine Start: 06-01-2023 take [...] fluids. triamcinolone acetonide 5 mg/ml topical cream (18 sources) Corticosteroid Start: 04-16-2023 triamcinolone (Kenalog) 0.5 [...] 06-01-2023 HYDROmorphone (Dilaudid) injection 0.5 mg hydromorphone MED ADMIN 0.5 mg/mL in NS opioid naive (1 [...] diabetes mellitus without complications] Chronic Essential hypertension (20 sources) Essential hypertension; 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: [Essential (primary) hypertension] Onset: 03-07-2023 04-30-2023 Chronic Other acquired deformities (2 sources) Scoliosis of lumbar spine; 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: [Other forms of scoliosis, lumbar region] Chronic Other acquired deformities (1 source) Other forms of scoliosis, lumbar region Chronic Other acquired deformities (10 sources) Acquired deformity of spine; 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: [Other specified deforming dorsopathies, site unspecified] Onset: 04-24-2023 04-27-2023 Chronic Other acquired deformities (16 sources) Other secondary scoliosis, thoracolumbar region; 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: [Scoliosis associated with other conditions] Onset: 04-24-2023 04-27-2023 Chronic Other acquired deformities (2 sources) Other specified deforming dorsopathies, site unspecified; 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: [Other specified deforming dorsopathies, site unspecified] Onset: 04-27-2023 Chronic Other aftercare (1 source) Other usp (current) drug therapy; 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: [OTH AUTOMOTIVE DIAGNOSTIC TECHNICIAN CURRENT DRUG THERAPY] Onset: 07-22-2022 Episodic Other aftercare (1 source) Surgical follow-up; 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: [Encounter for follow-up examination after completed treatment for conditions other than malignant neoplasm] 08-14-2023 Episodic Other bone disease and musculoskeletal deformities (7 sources) Other specified disorders of bone, other site; 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: [Iliac crest bone pain] Episodic Other connective tissue disease (2 sources) History of lumbar fusion; 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: [Arthrodesis status] 08-14-2023 Episodic Other connective tissue disease (2 sources) Arthrodesis status; 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: [Arthrodesis status] Onset: 05-27-2024 Episodic Other gastrointestinal disorders (1 source) Drug-induced constipation; 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: [Drug induced constipation] 06-06-2023 Episodic Other inflammatory condition of skin (4 sources) Other psoriatic arthropathy; 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: [OTHER PSORIATIC ARTHROPATHY] Onset: 07-19-2022 Chronic Other inflammatory condition of skin (20 sources) Psoriatic arthritis; 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: [Arthropathic psoriasis, unspecified] Onset: 07-19-2022 04-30-2023 Chronic Other inflammatory condition of skin (19 sources) Flexural psoriasis; 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] Onset: 04-16-2023 04-30-2023 Chronic Other inflammatory condition of skin (8 sources) Psoriasis; 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: [Psoriasis, unspecified] Onset: 04-30-2023 04-30-2023 Chronic Other inflammatory condition of skin (2 sources) Arthropathic psoriasis, unspecified; 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: [Arthropathic psoriasis, unspecified (Multi)] Onset: 06-01-2023 Chronic Other nervous system disorders (15 sources) Chronic pain; 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: [Other chronic pain] [...] Chronic Other nutritional; endocrine; and metabolic disorders (8 sources) Lipoprotein deficiency disorder; 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: [Lipoprotein deficiency] Onset: 04-30-2023 04-30-2023 Chronic Other nutritional; endocrine; and metabolic disorders (11 sources) Body mass index 30+ - obesity; 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: [Obesity, unspecified] Onset: 10-17-2023 10-17-2023 Chronic Residual codes; unclassified (2 sources) Other specified postprocedural states; 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: [Other specified postprocedural states] Onset: 05-27-2024 Episodic Spondylosis; intervertebral disc disorders; other back problems (20 sources) Lumbosacral spondylosis; 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: [Spondylosis without myelopathy or radiculopathy, lumbosacral region] Onset: 03-07-2023 Chronic Unclassified (1 source) Pain in right hip; 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: [Pain in right hip] Onset: 10-16-2022 Unclassified (9 sources) Patient has spine surgery Onset: 04-24-2023 04-24-2023 Past or Other Problems Problem Classification Problem Date Documented Da te Episodic/Chronic Cancer of prostate (8 sources) Malignant tumor of prostate; 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: [Malignant neoplasm of prostate] Onset: 09-15-2021 Resolved: 04-30-2023 04-30-2023 Chronic Other aftercare (18 sources) Long-term current use of drug therapy; 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: [Other intermediate card tender (current) drug therapy] Onset: 07-22-2022 04-30-2023 Episodic Other aftercare (2 sources) Encounter for follow-up examination after completed treatment for conditions other than malignant neoplasm; 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: [Encounter for follow-up examination after completed treatment for conditions other than malignant neoplasm] Onset: 07-10-2023 Episodic Other bone disease and musculoskeletal deformities (8 sources) Bone pain; 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: [Other specified disorders of bone, other site] Onset: 04-30-2023 04-30-2023 Episodic Other connective tissue disease (15 sources) Muscle pain; 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: [Myalgia, other site] Onset: 04-30-2023 04-30-2023 Episodic Other connective tissue disease (8 sources) Pain in left lower limb; 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: [Pain in left leg] Onset: 01-06-2023 04-30-2023 Episodic Other gastrointestinal disorders (2 sources) Drug induced constipation; 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: [Drug induced constipation] Onset: 06-01-2023 Episodic Other nervous system disorders (2 sources) Other acute postprocedural pain; 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: [Other acute postprocedural pain] Onset: 06-01-2023 Episodic Other non-traumatic joint disorders (20 sources) Pain in right hip joint; 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: [Pain in right hip] Onset: 10-16-2022 04-30-2023 Episodic Other non-traumatic joint disorders (2 sources) Hip pain; 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: [Pain in right hip] Onset: 10-16-2022 04-30-2023 Episodic Other screening for suspected conditions (not mental disorders or infectious disease) (12 sources) Encounter for screening for malignant neoplasm of prostate; 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: [Patient encounter status] Onset: 09-15-2021 10-17-2023 Episodic Residual codes; unclassified (3 sources) Patient encounter status; 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: [Encounter for procedure for purposes other than remedying health state, unspecified] Onset: 10-17-2023 05-18-2023 Episodic Residual codes; unclassified (10 sources) H/O Spinal surgery; 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: [Other specified postprocedural states] Onset: 04-24-2023 04-30-2023 Episodic Residual codes; unclassified (2 sources) Encounter for procedure for purposes other than remedying health state, unspecified; 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: [Encounter for procedure for purposes other than remedying health state, unspecified] Onset: 05-17-2023 Episodic Spondylosis; intervertebral disc disorders; other back problems (20 sources) Lumbar radiculopathy; 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: [Radiculopathy, lumbar region] Onset: 10-16-2022 Episodic Unclassified (2 sources) Onset: 05-27-2024 05-27-2024 Results Test Name Value Interpretation Reference Range Facil ity MLR HEMOGLOBIN A1Con 025 Glucose [Mass/Vol] 137 mg/dL [facility] HbA1c (Bld) [Mass fraction] 6.4 % High 4.5 - 6.2 % [facility] Comment on above: ADA RECOMMENDED LIMI T 4.0 - 6.0 ADA THERAPEUTIC TARGET < 7.0 ACTION SUGGESTED > 7.0 Interpretation and review of laboratory results Abnormal [facility] ALL CBC WITH AUTO DIFFon BASOPHILS ABSOLUTE AUTO 0 [facility] Basophils/100 WBC (Bld) 0.7 % 0.2 - 2.0 % [facility] Eosinophils/100 WBC (Bld) 2.3 % 0.9 - 7.0 % [facility] Erythrocyte distribution width (RBC) [Ratio] 14.9 % 11.0 - 15.0 % [facility] Hematocrit (Bld) [Volume fraction] 42.2 % 42.0 - 54.0 % [facility] Hemoglobin (Bld) [Mass/Vol] 13.7 g/dL Low 14.0 - 18.0 g/dL [facility] IMMATURE GRANULOCYTES ABS AUTO 0.01 [facility] Immature granulocytes/100 WBC (Bld) 0.2 % 0.0 - 0.5 % [facility] Interpretation and review of laboratory results Abnormal [facility] LYMPHOCYTES ABSOLUTE AUTO 1.8 [facility] Lymphocytes/100 WBC (Bld) 30.4 % 20.5 - 60.0 % [facility] MCH (RBC) [Entitic mass] 28.7 pg 25.9 - 34.0 pg [facility] MCHC (RBC) [Mass/Vol] 32.5 g/dL 29.9 - 35.2 g/dL [facility] MCV (RBC) [Entitic vol] 88.3 fL 80.0 - 94.0 fL [facility] MONOCYTES ABSOLUTE AUTO 0.5 [facility] Monocytes/100 WBC (Bld) 8.2 % 1.7 - 12.0 % [facility] NEUTROPHILS ABSOLUTE AUTO 3.5 [facility] Neutrophils/100 WBC (Bld) 58.2 % 43.0 - 75.0 % [facility] Platelet mean volume (Bld) [Entitic vol] 10.7 fL 9.5 - 13.5 fL [facility] TBH EO # 0.1 [facility] TBH PLT 262 [facility] RBC 4.78 [facility] WBC 6 [facility] XR SCOLIOSIS SERIES 2 TO 3 V [facility] 05-28-2024 Please do both AP and lateral views. ( Total of 2 views ) Please have the patient standing without assistance of any kind and with knees in neutral position. The patient should stand relaxed, bend their elbows, and place their fists on the ipsilateral clavicles. Source Facility: [facility] Interpreted By: Austen Bass, STUDY: XR FULL SPINE 2 VIEW SCOLIOSIS; ; 05/27/2024 10:44 am INDICATION: Signs/Symptoms:Lumb ar Stenosis for assesment of alignment. 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, thoracolumbar region COMPARISON: 08/14/2023 ACCESSION NUMBER(S): [id number] ORDERING CLINICIAN: ISHA VALENTINO FINDINGS: Two views of the whole spine. Mild broad lumbar levocurvature. L2 posterior fusion to the bilateral iliac bones. Discectomies at L4-L5 and L5-S1. Mild to moderate multilevel spondylosis. Mild to moderate bilateral hip osteoarthrosis. The soft tissues are unremarkable. IMPRESSION: Mild lumbarlevocurvature . This is unchanged. Postsurgical changes, as above. MACRO: None Signed by: Austen Bass 05/28/2024 3:45 PM Dictation workstation: [id number] Radiology, Radiologist, - 05/28/2024 Please do both AP and lateral views. ( Total of 2 views ) Please have the patient standing without assistance of any kind and with knees in neutral position. The patient should stand relaxed, bend their elbows, and place their fists on the ipsilateral clavicles. Source Facility: [facility] Interpreted By: Austen Bass, STUDY: XR FULL SPINE 2 VIEW SCOLIOSIS; ; 05/27/2024 10:44 am INDICATION: Signs/Symptoms:Lumb ar Stenosis for assesment of alignment. 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, thoracolumbar region COMPARISON: 08/14/2023 ACCESSION NUMBER(S): [id number] ORDERING CLINICIAN: ISHA VALENTINO FINDINGS: Two views of the whole spine. Mild broad lumbar levocurvature. L2 posterior fusion to the bilateral iliac bones. Discectomies at L4-L5 and L5-S1. Mild to moderate multilevel spondylosis. Mild to moderate bilateral hip osteoarthrosis. The soft tissues are unremarkable. IMPRESSION: Mild lumbarlevocurvature . This is unchanged. Postsurgical changes, as above. MACRO: None Signed by: Austen Bass 05/28/2024 3:45 PM Dictation workstation: [id number] [facility] [employer] XR SCOLIOSIS SERIES 2 TO 3 V IEWSOrdered By: Radiologist Radiology on 05-28-2024 [facility] [employer] Work Phone: XR FULL SPINE 2 VIEW SCOLIOS [employer] 05-27-2024 XR FULL SPINE 2 VIEW SCOLIOSIS Interpreted By: Austen Bass, STUDY: XR FULL SPINE 2 VIEW SCOLIOSIS; ; 05/27/2024 10:44 am INDICATION: Signs/Symptoms:Lumb ar Stenosis for assesment of alignment. 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, thoracolumbar region COMPARISON: 08/14/2023 ACCESSION NUMBER(S): [id number] ORDERING CLINICIAN: ISHA VALENTINO FINDINGS: Two views of the whole spine. Mild broad lumbar levocurvature. L2 posterior fusion to the bilateral iliac bones. Discectomies at L4-L5 and L5-S1. Mild to moderate multilevel spondylosis. Mild to moderate bilateral hip osteoarthrosis. The soft tissues are unremarkable. IMPRESSION: Mild lumbarlevocurvature . This is unchanged. Postsurgical changes, as above. MACRO: None Signed by: Austen Bass 05/28/2024 3:45 PM Dictation workstation: [id number] [facility] Comment on above: Order Comment: Eleno e do both AP and lateral views. ( Total of 2 views ) Please have the patient standing without assistance of any kind and with knees in neutral position. The patient should stand relaxed, bend their elbows, and place their fists on the ipsilateral clavicles. XR SCOLIOSIS SERIES 2 TO 3 V IEWSon 05-27-2024 Radiology Study observation (narrative) [facility] ALL CBC WITH AUTO DIFFon BASOPHILS ABSOLUTE AUTO 0.1 [facility] Basophils/100 WBC (Bld) 0.7 % 0.2 - 2.0 % [facility] Eosinophils/100 WBC (Bld) 1.7 % 0.9 - 7.0 % [facility] Erythrocyte distribution width (RBC) [Ratio] 15.8 % High 11.0 - 15.0 % [facility] Hematocrit (Bld) [Volume fraction] 40.9 % Low 42.0 - 54.0 % [facility] Hemoglobin (Bld) [Mass/Vol] 13.1 g/dL Low 14.0 - 18.0 g/dL [facility] IMMATURE GRANULOCYTES ABS AUTO 0.01 [facility] Immature granulocytes/100 WBC (Bld) 0.1 % 0.0 - 0.5 % [facility] Interpretation and review of laboratory results Abnormal [facility] LYMPHOCYTES ABSOLUTE AUTO 1.7 [facility] Lymphocytes/100 WBC (Bld) 23.1 % 20.5 - 60.0 % [facility] MCH (RBC) [Entitic mass] 28.4 pg 25.9 - 34.0 pg [facility] MCHC (RBC) [Mass/Vol] 32 g/dL 29.9 - 35.2 g/dL [facility] MCV (RBC) [Entitic vol] 88.7 fL 80.0 - 94.0 fL [facility] MONOCYTES ABSOLUTE AUTO 0.6 [facility] Monocytes/100 WBC (Bld) 8.8 % 1.7 - 12.0 % [facility] NEUTROPHILS ABSOLUTE AUTO 4.7 [facility] Neutrophils/100 WBC (Bld) 65.6 % 43.0 - 75.0 % [facility] Platelet mean volume (Bld) [Entitic vol] 10.5 fL 9.5 - 13.5 fL [facility] TBH EO # 0.1 [facility] TB PLT 293 [facility] RBC 4.61 Low [facility] TBH WBC 7.2 [facility] ALL SED RATEon 02-19-2024 TBH SED RATE 16 NINF [facility]CF CMP (CMP) (FOR REMOTE FH C USE)on 02-19-2024 Albumin [Mass/Vol] 3.8 g/dL 3.4 - 5.0 g/dL NO [facility] ALBUMIN GLOBULIN RATIO 1 NO [facility] ALP [Catalytic activity/Vol] 99 U/L 46 - 116 U/L [facility] ALT [Catalytic activity/Vol] 33 U/L 16 - 63 U/L [facility] Anion gap [Moles/Vol] 12.2 mmol/L NO [facility] AST [Catalytic activity/Vol] 23 U/L 15 - 37 U/L [facility] Bilirubin [Mass/Vol] 0.3 mg/dL 0.2 - 1.0 mg/dL [facility] Calcium [Mass/Vol] 9.1 mg/dL 8.5 - 10. 1 mg/dL [facility] Chloride [Moles/Vol] 106 mmol/L 98 - 107 mmol/L [facility] CO2 [Moles/Vol] 26.4 mmol/L 21.0 - 32.0 mmol/L [facility] Creatinine [Mass/Vol] 0.92 mg/dL 0.70 - 1.30 mg/dL [facility] GFR/1.73 sq M.predicted CKD-EPI (S/P/Bld) [Vol rate/Area] >60 >=60 mL/min/1.73m 2 [facility] Globulin (S) [Mass/Vol] 3.7 g/dL [facility] Glucose [Mass/Vol] 85 mg/dL 74 - 106 mg/dL NO [facility] Potassium [Moles/Vol] 3.6 mmol/L 3.5 - 5.1 mmol/L [facility] Protein [Mass/Vol] 7.5 g/dL 6.4 - 8.2 g/dL [facility] Sodium [Moles/Vol] 141 mmol/L 136 - 145 mmol/L [facility] EGFR-NON AF [place]EN[place]AL [place] >60 >=60 mL/min/1.73m 2 [facility] Urea nitrogen [Mass/Vol] 11 mg/dL 7.0 - 18.0 mg/dL [facility] Urea nitrogen/Creatinine [Mass ratio] 12 mg/mg [facility] ALL CBC WITH AUTO DIFFon BASOPHILS ABSOLUTE AUTO 0.1 [facility] Basophils/100 WBC (Bld) 0.7 % 0.2 - 2.0 % [facility] Eosinophils/100 WBC (Bld) 2.8 % 0.9 - 7.0 % [facility] Erythrocyte distribution width (RBC) [Ratio] 16.7 % High 11.0 - 15.0 % [facility] Hematocrit (Bld) [Volume fraction] 39.3 % Low 42.0 - 54.0 % [facility] Hemoglobin (Bld) [Mass/Vol] 12.7 g/dL Low 14.0 - 18.0 g/dL [facility] IMMATURE GRANULOCYTES ABS AUTO 0.01 [facility] Immature granulocytes/100 WBC (Bld) 0.1 % 0.0 - 0.5 % [facility] Interpretation and review of laboratory results Abnormal [facility] LYMPHOCYTES ABSOLUTE AUTO 2.1 [facility] Lymphocytes/100 WBC (Bld) 31.3 % 20.5 - 60.0 % [facility] MCH (RBC) [Entitic mass] 27.3 pg 25.9 - 34.0 pg [facility] MCHC (RBC) [Mass/Vol] 32.3 g/dL 29.9 - 35.2 g/dL [facility] MCV (RBC) [Entitic vol] 84.3 fL 80.0 - 94.0 fL [facility] MONOCYTES ABSOLUTE AUTO 0.8 [facility] Monocytes/100 WBC (Bld) 11.7 % 1.7 - 12.0 % [facility] NEUTROPHILS ABSOLUTE AUTO 3.6 [facility] Neutrophils/100 WBC (Bld) 53.4 % 43.0 - 75.0 % [facility] Platelet mean volume (Bld) [Entitic vol] 10.2 fL 9.5 - 13.5 fL [facility] EO # 0.2 [facility] PLT 291 [facility] RBC 4.66 Low [facility] WBC 6.7 [facility] XR SCOLIOSIS 2 VIEW (NON EOS )on 08-14-2023 XR SCOLIOSIS 2 VIEW (NON EOS) Interpreted By: Carmenza Garcia, STUDY: XR SCOLIOSIS 2 VIEW (NON EOS) INDICATION: Signs/Symptoms:Lumb ar Stenosis for assesment of alignment. COMPARISON: 07/10/2023 ACCESSION NUMBER(S): [id number] ORDERING CLINICIAN: ISHA VALENTINO FINDINGS: There is [...] is intact without perihardware fractures or lucencies. Rugt-az-aeyzckkz spondylosis noted at T12-L1 and L1-2. Chronic appearing compression deformity is noted of T12 vertebral body with mild anterior height loss. There is positive sagittal balance. No significant coronal balance. IMPRESSION: Postsurgical changes as described above without hardware complication. Mild S shaped thoracolumbar scoliosis. Positive sagittal balance MACRO: None. Signed by: Carmenza Garcia 08/16/2023 5:16 PM Dictation workstation: [id number] [facility] Comment on above: Order Comment: Pleas [...] INDICATION: Signs/Symptoms:post op. COMPARISON: 04/24/2023 ACCESSION NUMBER(S): [id number] ORDERING CLINICIAN: ISHA VALENTINO FINDINGS: Two views [...] Austen Bass 07/11/2023 3:27 PM Dictation workstation: [id number] [facility] Comment on above: Order Comment: Eleno francis do both AP and lateral views. ( Total of 2 views ) Please have the patient standing without assistance of any kind and with knees in neutral position. The patient should stand relaxed, bend their elbows, and place their fists on the ipsilateral clavicles. CBC panel Auto (Bld)on 06-05 Erythrocyte distribution width (RBC) [Ratio] 13.5 % 11.5 - 14.5 % [facility] Hematocrit (Bld) [Volume fraction] 33.1 % Low 41.0 - 52.0 % [facility] Hemoglobin (Bld) [Mass/Vol] 11.0 g/dL Low 13.5 - 17.5 g/dL [facility] Interpretation and review of laboratory results Abnormal [facility] MCH (RBC) [Entitic mass] 29.3 pg 26.0 - 34.0 pg [facility] MCHC (RBC) [Mass/Vol] 33.2 g/dL 32.0 - 36.0 g/dL [facility] MCV (RBC) [Entitic vol] 88 fL 80 - 100 fL [facility] Nucleated RBC/100 WBC (Bld) [Ratio] 0.0 % [facility] Platelets (Bld) [#/Vol] 323 10*3/uL [facility] RBC (Bld) [#/Vol] 3.75 10*6/uL Low [facility] WBC (Bld) [#/Vol] 6.3 10*3/uL [facility] Erythrocyte distribution width (RBC) [Ratio] 13.5 % Normal 11.5-14.5 [facility] Comment on above: Performed By: #### 5 2969-3 #### PACHECO Ferraro ([id number]) [facility] ([facility]) [address] [place] [address] Hematocrit (Bld) [Volume fraction] 33.1 % Low 41.0-52.0 [facility] Comment on above: Performed By: #### 5 2969-3 #### PACHECO Ferraro ([id number]) [facility] ([facility]) [address] [place] [address] Hemoglobin (Bld) [Mass/Vol] 11.0 g/dL Low 13.5-17.5 [facility] Comment on above: Performed By: #### 5 2969-3 #### PACHECO Ferraro ([id number]) [facility] ([facility]) [address] [place] [address]18 MCH (RBC) [Entitic mass] 29.3 pg Normal 26.0-34.0 [facility] Comment on above: Performed By: #### 5 2969-3 #### PACHECO Ferraro ([id number]) [facility] ([facility]) [address] [place] [address]5983 MCHC (RBC) [Mass/Vol] 33.2 g/dL Normal 32.0-36.0 [facility] Comment on above: Performed By: #### 5 2969-3 #### PACHECO Ferraro ([id number]) [facility] ([facility]) [address] [place] [address] MCV (RBC) [Entitic vol] 88 fL Normal 80-100 [facility] Comment on above: Performed By: #### 5 2969-3 #### PACHECO Ferraro ([id number]) [facility] ([facility]) [address] [place] [address] Nucleated RBC/100 WBC (Bld) [Ratio] 0.0 /100 WBCs Normal 0.0-0.0 [facility] Comment on above: Performed By: #### 5 2969-3 #### PACHECO Ferraro ([id number]) [facility] ([facility]) [address] [place] [address] Platelets (Bld) [#/Vol] 323 x10*3/uL Normal 150-450 [facility] Comment on above: Performed By: #### 5 2969-3 #### PACHECO Ferraro ([id number]) [facility]ED [facility] ([facility]) [address] [place] [address] RBC (Bld) [#/Vol] 3.75 x10*6/uL Low 4.50-5.90 [facility] Comment on above: Performed By: #### 5 2969-3 #### PACHECO Ferraro ([id number]) [facility] ([facility]) [address] [place] [address] WBC (Bld) [#/Vol] 6.3 x10*3/uL Normal 4.4-11.3 [facility] Comment on above: Performed By: #### 5 2969-3 #### PACHECO Ferraro ([id number]) [facility] ([facility]) [address] [place] [address] Glucose Test strip manual (B ld) [Mass/Vol]on 06-06-2023 Glucose [Mass/Vol] 207 mg/dL High 74 - 99 mg/dL [facility] Interpretation and review of laboratory results Abnormal [facility] Glucose [Mass/Vol] 207 mg/dL High 74-99 [facility] Comment on above: Performed By: #### 5 2969-3 #### PACHECO Ferraro ([id number]) [facility] ([facility]) [address] [place] [address] Glucose [Mass/Vol] 159 mg/dL High 74 - 99 mg/dL [facility] Interpretation and review of laboratory results Abnormal [facility] Glucose [Mass/Vol] 159 mg/dL High 74-99 [facility] Comment on above: Performed By: #### 3 4532-2 ###Jv Ferraro ([id number]) [facility] ([facility]) [address] [place] [address] Renal function 2000 panelon 06-06-2023 Albumin BCP dye [Mass/Vol] 3.6 g/dL 3.4 - 5.0 g/dL [facility] Anion gap [Moles/Vol] 13 mmol/L 10 - 20 mmol/L [facility] Calcium [Mass/Vol] 9.3 mg/dL 8.6 - 10. 6 mg/dL [facility] Chloride [Moles/Vol] 100 mmol/L 98 - 107 mmol/L [facility] CO2 [Moles/Vol] 26 mmol/L 21 - 32 mmol/L [facility] Creatinine [Mass/Vol] 0.60 mg/dL 0.50 - 1.30 mg/dL [facility] eGFR - PINF [facility] Comment on above: Calculations of german mated GFR are performed using the 2020 CKD-EPI Study Refit equation without the race variable for the IDMS-Traceable creatinine methods. https://jasn.asnjournals.org/content/early/ASN.77351 69372 Glucose [Mass/Vol] 236 mg/dL High 74 - 99 mg/dL [facility] Interpretation and review of laboratory results Abnormal [facility] Phosphate [Mass/Vol] 2.4 mg/dL Low 2.5 - 4.9 mg/dL [facility] Comment on above: The performance gregory acteristics of phosphorus testing in heparinized plasma have been validated by the individual laboratory site where testing is performed. Testing on heparinized plasma is not approved by the FDA; however, such approval is not necessary. Potassium [Moles/Vol] 3.3 mmol/L Low 3.5 - 5.3 mmol/L [facility] Sodium [Moles/Vol] 136 mmol/L 136 - 145 mmol/L [facility] Urea nitrogen [Mass/Vol] 10 mg/dL 6 - 23 mg/dL [facility] Albumin BCP dye [Mass/Vol] 3.6 g/dL Normal 3.4-5.0 [facility] Comment on above: Performed By: #### 5 2969-3 #### PACHECO LANGEER L ([id number]) [facility] ([facility]) [address] [place] [address] Anion gap [Moles/Vol] 13 mmol/L Normal 10-20 [facility] Comment on above: Performed By: #### 5 2969-3 #### PACHECO LANEMOTZER L ([id number]) [facility] ([facility]) [address] [place] [address] Calcium [Mass/Vol] 9.3 mg/dL Normal 8.6-10.6 [facility] Comment on above: Performed By: #### 5 2969-3 #### PACHECO LANEMOTZER L ([id number]) [facility] ([facility]) [address] [place] [address] Chloride [Moles/Vol] 100 mmol/L Normal 98-107 [facility] Comment on above: Performed By: #### 5 2969-3 #### PACHECO LANEMOTZER L ([id number]) [facility] ([facility]) [address] [place] [address] CO2 [Moles/Vol] 26 mmol/L Normal 21-32 [facility] Comment on above: Performed By: #### 5 2969-3 #### PACHECO LANEMOTZER L ([id number]) [facility] ([facility]) [address] [place] [address] Creatinine [Mass/Vol] 0.60 mg/dL Normal 0.50-1.30 [facility] Comment on above: Performed By: #### 5 2969-3 #### PACHECO SCHMOTZER L ([id number]) [facility] ([facility]) [address] [place] [address] GFR/1.73 sq M.predicted MDRD (S/P/Bld) [Vol rate/Area] mL/min/{1.73_m2} Normal >60 [facility] Comment on above: Result Comment: Calc ulations of estimated GFR are performed using the 2020 CKD-EPI Study Refit equation without the race variable for the IDMS-Traceable creatinine methods. https://jasn.asnjournals.org/content//ASN.53042 87323 Performed By: #### 5 2969-3 #### PACHECO Ferraro ([id number]) [facility] ([facility]) [address] [place] [address] Glucose [Mass/Vol] 236 mg/dL High 74-99 [facility] Comment on above: Performed By: #### 5 2969-3 #### PACHECO Ferraro ([id number]) [facility] ([facility]) [address] [place] [address] Phosphate [Mass/Vol] 2.4 mg/dL Low 2.5-4.9 [facility] Comment on above: Result Comment: The performance characteristics of phosphorus testing in heparinized plasma have been validated by the individual laboratory site where testing is performed. Testing on heparinized plasma is not approved by the FDA; however, such approval is not necessary. Performed By: #### 5 2969-3 #### PACHECO Ferraro ([id number]) [facility] ([facility]) [address] [place] [address] Potassium [Moles/Vol] 3.3 mmol/L Low 3.5-5.3 [facility] Comment on above: Performed By: #### 5 2969-3 #### PACHECO Ferraro ([id number]) [facility] ([facility]) [address] [place] [address] Sodium [Moles/Vol] 136 mmol/L Normal 136-145 [facility] Comment on above: Performed By: #### 5 2969-3 #### PACHECO Ferraro ([id number]) [facility] ([facility]) [address] [place] [address] Urea nitrogen [Mass/Vol] 10 mg/dL Normal 6-23 [facility] Comment on above: Performed By: #### 5 2969-3 #### PACHECO Ferraro ([id number]) [facility] ([facility]) [address] [place] [address] Glucose Test strip manual (B ld) [Mass/Vol]on 06-05-2023 Glucose [Mass/Vol] 226 mg/dL High 74 - 99 mg/dL [facility] Interpretation and review of laboratory results Abnormal [facility] Glucose [Mass/Vol] 226 mg/dL High 74-99 [facility] Comment on above: Performed By: #### 3 4532-2 #### PACHECO Ferraro ([id number]) [facility] ([facility]) [address] [place] [address] Glucose [Mass/Vol] 160 mg/dL High 74 - 99 mg/dL [facility] Interpretation and review of laboratory results Abnormal [facility] Glucose [Mass/Vol] 160 mg/dL High 74-99 [facility] Comment on above: Performed By: #### 3 4532-2 #### PACHECO Ferraro ([id number]) [facility] ([facility]) [address] [place] [address] Glucose [Mass/Vol] 192 mg/dL High 74 - 99 mg/dL [facility] Interpretation and review of laboratory results Abnormal [facility] Glucose [Mass/Vol] 192 mg/dL High 74-99 [facility] Comment on above: Performed By: #### 3 4532-2 #### PACHECO Ferraro ([id number]) [facility] ([facility]) [address] [place] [address] Glucose [Mass/Vol] 163 mg/dL High 74 - 99 mg/dL [facility] Interpretation and review of laboratory results Abnormal [facility] Glucose [Mass/Vol] 163 mg/dL High 74-99 [facility] Comment on above: Performed By: #### 3 4532-2 #### PACHECO Ferraro ([id number]) [facility] ([facility]) [address] [place] [address] Basic metabolic 2000 panelon 06-04-2023 Anion gap [Moles/Vol] 12 mmol/L 10 - 20 mmol/L [facility] Calcium [Mass/Vol] 8.4 mg/dL Low 8.6 - 10. 6 mg/dL [facility] Chloride [Moles/Vol] 102 mmol/L 98 - 107 mmol/L [facility] CO2 [Moles/Vol] 28 mmol/L 21 - 32 mmol/L [facility] Creatinine [Mass/Vol] 0.56 mg/dL 0.50 - 1.30 mg/dL [facility] eGFR - PINF [facility] Comment on above: Calculations of german mated GFR are performed using the 2020 CKD-EPI Study Refit equation without the race variable for the IDMS-Traceable creatinine methods. https://jasn.asnjournals.org/content//ASN.92171 22751 Glucose [Mass/Vol] 235 mg/dL High 74 - 99 mg/dL [facility] Interpretation and review of laboratory results Abnormal [facility] Potassium [Moles/Vol] 3.4 mmol/L Low 3.5 - 5.3 mmol/L [facility] Sodium [Moles/Vol] 139 mmol/L 136 - 145 mmol/L [facility] Urea nitrogen [Mass/Vol] 14 mg/dL 6 - 23 mg/dL [facility] Anion gap [Moles/Vol] 12 mmol/L Normal 10-20 [facility] Comment on above: Performed By: #### 3 4532-2 #### PACHECO Ferraro ([id number]) [facility] ([facility]) [address] [place] [address] Calcium [Mass/Vol] 8.4 mg/dL Low 8.6-10.6 [facility] Comment on above: Performed By: #### 3 4532-2 #### PACHECO Ferraro ([id number]) [facility] ([facility]) [address] [place] [address] Chloride [Moles/Vol] 102 mmol/L Normal 98-107 [facility] Comment on above: Performed By: #### 3 4532-2 #### APCHECO Ferraro ([id number]) [facility] ([facility]) [address] [place] [address] CO2 [Moles/Vol] 28 mmol/L Normal 21-32 [facility] Comment on above: Performed By: #### 3 4532-2 #### PACHECO Ferraro (69506) [facility] ([facility]) [address] [place] [address] Creatinine [Mass/Vol] 0.56 mg/dL Normal 0.50-1.30 [facility] Comment on above: Performed By: #### 3 4532-2 #### PACHECO Ferraro (49974) [facility] ([facility]) [address] [place] [address] GFR/1.73 sq M.predicted MDRD (S/P/Bld) [Vol rate/Area] mL/min/{1.73_m2} Normal >60 [facility] Comment on above: Result Comment: Calc ulations of estimated GFR are performed using the 2020 CKD-EPI Study Refit equation without the race variable for the IDMS-Traceable creatinine methods. https://jasn.asnjournals.org/content//ASN.06803 23450 Performed By: #### 3 4532-2 #### PACHECO Ferraro ([id number]) [facility] ([facility]) [address] [place] [address] Glucose [Mass/Vol] 235 mg/dL High 74-99 [facility] Comment on above: Performed By: #### 3 4532-2 #### PACHECO Ferraro ([id number]) [facility] ([facility]) [address] [place] [address] Potassium [Moles/Vol] 3.4 mmol/L Low 3.5-5.3 [facility] Comment on above: Performed By: #### 3 4532-2 #### PACHECO Ferraro (06375) [facility] ([facility]) [address] [place] [address] Sodium [Moles/Vol] 139 mmol/L Normal 136-145 [facility] Comment on above: Performed By: #### 3 4531-2 #### PACHECO Ferraro ([id number]) [facility] ([facility]) [address] [place] [address] Urea nitrogen [Mass/Vol] 14 mg/dL Normal 6-23 [facility] Comment on above: Performed By: #### 3 4531-2 #### PACHECO Ferraro ([id number]) [facility] ([facility]) [address] [place] [address] CBC panel Auto (Bld)on 06-03 Erythrocyte distribution width (RBC) [Ratio] 13.6 % 11.5 - 14.5 % [facility] Hematocrit (Bld) [Volume fraction] 30.9 % Low 41.0 - 52.0 % [facility] Hemoglobin (Bld) [Mass/Vol] 9.7 g/dL Low 13.5 - 17.5 g/dL [facility] Interpretation and review of laboratory results Abnormal [facility] MCH (RBC) [Entitic mass] 28.1 pg 26.0 - 34.0 pg [facility] MCHC (RBC) [Mass/Vol] 31.4 g/dL Low 32.0 - 36.0 g/dL [facility] MCV (RBC) [Entitic vol] 90 fL 80 - 100 fL [facility] Nucleated RBC/100 WBC (Bld) [Ratio] 0.0 % [facility] Platelets (Bld) [#/Vol] 209 10*3/uL [facility] RBC (Bld) [#/Vol] 3.45 10*6/uL Low [facility] WBC (Bld) [#/Vol] 8.3 10*3/uL [facility] Erythrocyte distribution width (RBC) [Ratio] 13.6 % Normal 11.5-14.5 [facility] Comment on above: Performed By: #### 3 4532-2 #### PACHECO Ferraro ([id number]) [facility] ([facility]) [address] [place] [address] Hematocrit (Bld) [Volume fraction] 30.9 % Low 41.0-52.0 [facility] Comment on above: Performed By: #### 3 4531-2 #### PACHECO Ferraro (01751) [facility] ([facility]) [address] [place] [address] Hemoglobin (Bld) [Mass/Vol] 9.7 g/dL Low 13.5-17.5 [facility] Comment on above: Performed By: #### 3 4531-2 #### PACHECO Ferraro (01594) [facility] ([facility]) [address] [place] [address] MCH (RBC) [Entitic mass] 28.1 pg Normal 26.0-34.0 [facility] Comment on above: Performed By: #### 3 4531-2 #### PACHECO Ferraro (50994) [facility] ([facility]) [address] [place] [address] MCHC (RBC) [Mass/Vol] 31.4 g/dL Low 32.0-36.0 [facility] Comment on above: Performed By: #### 3 4531-2 #### PACHECO Ferraro ([id number]) [facility] ([facility]) [address] [place] [address] MCV (RBC) [Entitic vol] 90 fL Normal 80-100 [facility] Comment on above: Performed By: #### 3 453-2 #### PACHECO Ferraro (79254) [facility] ([facility]) [address] [place] [address] Nucleated RBC/100 WBC (Bld) [Ratio] 0.0 /100 WBCs Normal 0.0-0.0 [facility] Comment on above: Performed By: #### 3 4531-2 #### PACHECO Ferraro ([id number]) [facility] ([facility]) [address] [place] [address] Platelets (Bld) [#/Vol] 209 x10*3/uL Normal 150-450 [facility] Comment on above: Performed By: #### 3 4531-2 #### PACHECO Ferraro ([id number]) [facility] ([facility]) [address] [place] [address] RBC (Bld) [#/Vol] 3.45 x10*6/uL Low 4.50-5.90 [facility] Comment on above: Performed By: #### 3 4531-2 #### PACHECO Ferraro ([id number]) [facility] ([facility]) [address] [place] [address] WBC (Bld) [#/Vol] 8.3 x10*3/uL Normal 4.4-11.3 [facility] Comment on above: Performed By: #### 3 4531-2 #### PACHECO Ferraro (65505) [facility] ([facility]) [address] [place] [address] Glucose Test strip manual (B ld) [Mass/Vol]on 06-04-2023 Glucose [Mass/Vol] 184 mg/dL High 74 - 99 mg/dL [facility] Interpretation and review of laboratory results Abnormal [facility] Glucose [Mass/Vol] 184 mg/dL High 74-99 [facility] Comment on above: Performed By: #### 3 4531-2 #### PACHECO Ferraro ([id number]) [facility] ([facility]) [address] [place] [address] Glucose [Mass/Vol] 243 mg/dL High 74 - 99 mg/dL [facility] Interpretation and review of laboratory results Abnormal [facility] Glucose [Mass/Vol] 243 mg/dL High 74-99 [facility] Comment on above: Performed By: #### 3 4531-2 #### PACHECO Ferraro ([id number]) [facility] ([facility]) [address] [place] [address] Glucose [Mass/Vol] 233 mg/dL High 74 - 99 mg/dL [facility] Interpretation and review of laboratory results Abnormal [facility] Glucose [Mass/Vol] 233 mg/dL High 74-99 [facility] Comment on above: Performed By: #### 3 4532-2 #### PACHECO Ferraro ([id number]) [facility] ([facility]) [address] [place] [address] Glucose [Mass/Vol] 139 mg/dL High 74 - 99 mg/dL [facility] Interpretation and review of laboratory results Abnormal [facility] Glucose [Mass/Vol] 139 mg/dL High 74-99 [facility] Comment on above: Performed By: #### 2 4321-2 #### PACHECO Ferraro ([id number]) [facility] ([facility]) [address] [place] [address] No Panel Informationon 06-03 Dispense Status RE [facility] PRODUCT BLOOD TYPE 9500 [facility] PRODUCT CODE [id number] [facility] Unit ABO O [facility] Unit RH Negative [facility] UNIT VOLUME 350 [facility] XM INTEP COMP [facility] Prepare RBC: 2 Unitson 06-03 Blood Expiration Date June 19, 2023 23:59 EDT [facility] Blood Expiration Date July 02, 2023 23:59 EDT [facility] Unit Number [id number] [facility] Unit Number [id number] [facility] Basic metabolic 2000 panelon 06-03-2023 Anion gap [Moles/Vol] 10 mmol/L 10 - 20 mmol/L [facility] Calcium [Mass/Vol] 8.6 mg/dL 8.6 - 10. 6 mg/dL [facility] Chloride [Moles/Vol] 105 mmol/L 98 - 107 mmol/L [facility] [facility] CO2 [Moles/Vol] 27 mmol/L 21 - 32 mmol/L [facility] Creatinine [Mass/Vol] 0.58 mg/dL 0.50 - 1.30 mg/dL [facility] eGFR - PINF [facility] Comment on above: Calculations of german mated GFR are performed using the 2020 CKD-EPI Study Refit equation without the race variable for the IDMS-Traceable creatinine methods. https://jasn.asnjournals.org/content/early//ASN.16606 21433 Glucose [Mass/Vol] 181 mg/dL High 74 - 99 mg/dL [facility] Interpretation and review of laboratory results Abnormal [facility] Potassium [Moles/Vol] 3.3 mmol/L Low 3.5 - 5.3 mmol/L [facility] Sodium [Moles/Vol] 139 mmol/L 136 - 145 mmol/L [facility] Urea nitrogen [Mass/Vol] 10 mg/dL 6 - 23 mg/dL [facility] Anion gap [Moles/Vol] 10 mmol/L Normal 10-20 [facility] Comment on above: Performed By: #### 2 4321-2 #### PACHECO Ferraro ([id number]) [facility] ([facility]) [address] [place] [address] 53136 Calcium [Mass/Vol] 8.6 mg/dL Normal 8.6-10.6 [facility] Comment on above: Performed By: #### 2 4321-2 #### PACHECO Ferraro ([id number]) [facility] ([facility]) [address] [place] [address] 48986 Chloride [Moles/Vol] 105 mmol/L Normal 98-107 [facility] Comment on above: Performed By: #### 2 4321-2 #### PACHECO Ferraro ([id number]) [facility] ([facility]) [address] [place] [address] 84491 CO2 [Moles/Vol] 27 mmol/L Normal 21-32 [facility] Comment on above: Performed By: #### 2 4321-2 #### PACHECO Ferraro ([id number]) [facility] ([facility]) [address] [place] [address] Creatinine [Mass/Vol] 0.58 mg/dL Normal 0.50-1.30 [facility] Comment on above: Performed By: #### 2 4321-2 #### PACHECO Ferraro ([id number]) [facility] ([facility]) [address] [place] [address] GFR/1.73 sq M.predicted MDRD (S/P/Bld) [Vol rate/Area] mL/min/{1.73_m2} Normal >60 [facility] Comment on above: Result Comment: Calc ulations of estimated GFR are performed using the 2020 CKD-EPI Study Refit equation without the race variable for the IDMS-Traceable creatinine methods. https://jasn.asnjournals.org/content/early//ASN.07496 04959 Performed By: #### 2 4321-2 #### PACHECO Ferraro ([id number]) [facility] ([facility]) [address] [place] [address] Glucose [Mass/Vol] 181 mg/dL High 74-99 [facility] Comment on above: Performed By: #### 2 4321-2 #### PACHECO Ferraro ([id number]) [facility] ([facility]) [address] [place] [address] Potassium [Moles/Vol] 3.3 mmol/L Low 3.5-5.3 [facility] Comment on above: Performed By: #### 2 4321-2 #### PACHECO Ferraro ([id number]) [facility] ([facility]) [address] [place] [address] 13622 Sodium [Moles/Vol] 139 mmol/L Normal 136-145 [facility] Comment on above: Performed By: #### 2 4321-2 #### PACHECO Ferraro ([id number]) [facility] ([facility]) [address] [place] [address] Urea nitrogen [Mass/Vol] 10 mg/dL Normal 6-23 [facility] Comment on above: Performed By: #### 2 4321-2 #### PACHECO Ferraro ([id number]) [facility] ([facility]) [address] [place] [address] 44277 CBC panel Auto (Bld)on 06-02 Erythrocyte distribution width (RBC) [Ratio] 14.2 % 11.5 - 14.5 % [facility] Hematocrit (Bld) [Volume fraction] 31.3 % Low 41.0 - 52.0 % [facility] Hemoglobin (Bld) [Mass/Vol] 10.1 g/dL Low 13.5 - 17.5 g/dL [facility] Interpretation and review of laboratory results Abnormal [facility] MCH (RBC) [Entitic mass] 29.3 pg 26.0 - 34.0 pg [facility] MCHC (RBC) [Mass/Vol] 32.3 g/dL 32.0 - 36.0 g/dL [facility] MCV (RBC) [Entitic vol] 91 fL 80 - 100 fL [facility] Nucleated RBC/100 WBC (Bld) [Ratio] 0.0 % [facility] Platelets (Bld) [#/Vol] 203 10*3/uL [facility] RBC (Bld) [#/Vol] 3.45 10*6/uL Low [facility] WBC (Bld) [#/Vol] 9.4 10*3/uL [facility] Erythrocyte distribution width (RBC) [Ratio] 14.2 % Normal 11.5-14.5 [facility] Comment on above: Performed By: #### 2 4321-2 #### PACHECO Ferraro ([id number]) [facility] ([facility]) [address] [place] [address] Hematocrit (Bld) [Volume fraction] 31.3 % Low 41.0-52.0 [facility] Comment on above: Performed By: #### 2 4321-2 #### PACHECO Ferraro ([id number]) [facility] ([facility]) [address] [place] [address] 59452 Hemoglobin (Bld) [Mass/Vol] 10.1 g/dL Low 13.5-17.5 [facility] Comment on above: Performed By: #### 2 4321-2 #### PACHECO Ferraro ([id number]) [facility] ([facility]) [address] [place] [address] 84542 MCH (RBC) [Entitic mass] 29.3 pg Normal 26.0-34.0 [facility] Comment on above: Performed By: #### 2 4321-2 #### PACHECO Ferraro ([id number]) [facility] ([facility]) [address] [place] [address] 88052 MCHC (RBC) [Mass/Vol] 32.3 g/dL Normal 32.0-36.0 [facility] Comment on above: Performed By: #### 2 4321-2 #### PACHECO Ferraro ([id number]) [facility] ([facility]) [address] [place] [address] 93425 MCV (RBC) [Entitic vol] 91 fL Normal 80-100 [facility] Comment on above: Performed By: #### 2 4321-2 #### PACHECO Ferraro ([id number]) [facility] ([facility]) [address] [place] [address] 54375 Nucleated RBC/100 WBC (Bld) [Ratio] 0.0 /100 WBCs Normal 0.0-0.0 [facility] Comment on above: Performed By: #### 2 4321-2 #### PACHECO Ferraro ([id number]) [facility] ([facility]) [address] [place] [address] 38862 Platelets (Bld) [#/Vol] 203 x10*3/uL Normal 150-450 [facility] Comment on above: Performed By: #### 2 4321-2 #### PACHECO Ferraro ([id number]) [facility] ([facility]) [address] [place] [address] 28177 RBC (Bld) [#/Vol] 3.45 x10*6/uL Low 4.50-5.90 [facility] Comment on above: Performed By: #### 2 4321-2 #### PACHECO Ferraro ([id number]) [facility] ([facility]) [address] [place] [address] 30494 WBC (Bld) [#/Vol] 9.4 x10*3/uL Normal 4.4-11.3 [facility] Comment on above: Performed By: #### 2 4321-2 #### PACHECO Ferraro ([id number]) [facility] ([facility]) [address] [place] [address] 32169 Glucose Test strip manual (B ld) [Mass/Vol]on 06-03-2023 Glucose [Mass/Vol] 207 mg/dL High 74 - 99 mg/dL [facility] Interpretation and review of laboratory results Abnormal [facility] Glucose [Mass/Vol] 207 mg/dL High 74-99 [facility] Comment on above: Performed By: #### 2 4321-2 #### PACHECO Ferraro ([id number]) [facility] ([facility]) [address] [place] [address] 78692 Glucose [Mass/Vol] 224 mg/dL High 74 - 99 mg/dL [facility] Interpretation and review of laboratory results Abnormal [facility] Glucose [Mass/Vol] 224 mg/dL High 74-99 [facility] Comment on above: Performed By: #### 2 4321-2 #### PACHECO Ferraro ([id number]) [facility] ([facility]) [address] [place] [address] 84984 Glucose [Mass/Vol] 129 mg/dL High 74 - 99 mg/dL [facility] Interpretation and review of laboratory results Abnormal [facility] Glucose [Mass/Vol] 129 mg/dL High 74-99 [facility] Comment on above: Performed By: #### 2 4321-2 #### PACHECO Ferraro ([id number]) [facility] ([facility]) [address] [place] [address] 69029 CBC panel Auto (Bld)on 06-01 Erythrocyte distribution width (RBC) [Ratio] 14.6 % High 11.5 - 14.5 % [facility] Hematocrit (Bld) [Volume fraction] 34.9 % Low 41.0 - 52.0 % [facility] Hemoglobin (Bld) [Mass/Vol] 10.9 g/dL Low 13.5 - 17.5 g/dL [facility] Interpretation and review of laboratory results Abnormal [facility] MCH (RBC) [Entitic mass] 28.7 pg 26.0 - 34.0 pg [facility] MCHC (RBC) [Mass/Vol] 31.2 g/dL Low 32.0 - 36.0 g/dL [facility] MCV (RBC) [Entitic vol] 92 fL 80 - 100 fL [facility] Nucleated RBC/100 WBC (Bld) [Ratio] 0.0 % [facility] Platelets (Bld) [#/Vol] 243 10*3/uL [facility] RBC (Bld) [#/Vol] 3.80 10*6/uL Low Un[facility] WBC (Bld) [#/Vol] 10.6 10*3/uL [facility] Erythrocyte distribution width (RBC) [Ratio] 14.6 % High 11.5-14.5 [facility] Comment on above: Performed By: #### 5 8410-2 #### PACHECO Ferraro ([id number]) [facility] ([facility]) [address] [place] [address] Hematocrit (Bld) [Volume fraction] 34.9 % Low 41.0-52.0 [facility] Comment on above: Performed By: #### 5 8410-2 #### PACHECO Ferraro ([id number]) [facility] ([facility]) [address] [place] [address] 34308 Hemoglobin (Bld) [Mass/Vol] 10.9 g/dL Low 13.5-17.5 [facility] Comment on above: Performed By: #### 5 8410-2 #### PACHECO Ferraro ([id number]) [facility] ([facility]) [address] [place] [address] 66265 MCH (RBC) [Entitic mass] 28.7 pg Normal 26.0-34.0 [facility] Comment on above: Performed By: #### 5 8410-2 #### PACHECO Ferraro ([id number]) [facility] ([facility]) [address] [place] [address] 13115 MCHC (RBC) [Mass/Vol] 31.2 g/dL Low 32.0-36.0 [facility] Comment on above: Performed By: #### 5 8410-2 #### PACHECO Ferraro ([id number]) [facility] ([facility]) [address] [place] [address] 61978 MCV (RBC) [Entitic vol] 92 fL Normal 80-100 [facility] Comment on above: Performed By: #### 5 8410-2 #### PACHECO Ferraro ([id number]) [facility] ([facility]) [address] [place] [address] 33086 Nucleated RBC/100 WBC (Bld) [Ratio] 0.0 /100 WBCs Normal 0.0-0.0 [facility] Comment on above: Performed By: #### 5 8410-2 #### PACHECO Ferraro ([id number]) [facility] ([facility]) [address] [place] [address] 98145 Platelets (Bld) [#/Vol] 243 x10*3/uL Normal 150-450 [facility] Comment on above: Performed By: #### 5 8410-2 #### PACHECO Ferraro ([id number]) [facility] ([facility]) [address] [place] [address] 28254 RBC (Bld) [#/Vol] 3.80 x10*6/uL Low 4.50-5.90 [facility] Comment on above: Performed By: #### 5 8410-2 #### PACHECO Ferraro ([id number]) [facility] ([facility]) [address] [place] [address] 21756 WBC (Bld) [#/Vol] 10.6 x10*3/uL Normal 4.4-11.3 [facility] Comment on above: Performed By: #### 5 8410-2 #### PACHECO Ferraro ([id number]) [facility] ([facility]) [address] [place] [address] 30741 Fibrinogenon 06-02-2023 Fibrinogen Coag (PPP) [Mass/Vol] 270 mg/dL 200 - 400 mg/dL [facility] Fibrinogen Coag (PPP) [Mass/Vol] 270 mg/dL Normal 200-400 [facility] Comment on above: Performed By: #### 2 4321-2 #### PACHECO Ferraro ([id number]) [facility] ([facility]) [address] [place] [address] 38005 Fibrinogen Coag (PPP) [Mass/ Vol]on 06-02-2023 Interpretation and review of laboratory results Normal [facility] Glucose Test strip manual (B ld) [Mass/Vol]on 06-02-2023 Glucose [Mass/Vol] 248 mg/dL High 74 - 99 mg/dL [facility] Interpretation and review of laboratory results Abnormal [facility] Glucose [Mass/Vol] 248 mg/dL High 74-99 [facility] Comment on above: Performed By: #### 2 4321-2 #### PACHECO Ferraro ([id number]) [facility] ([facility]) [address] [place] [address] 94981 Glucose [Mass/Vol] 278 mg/dL High 74 - 99 mg/dL [facility] Interpretation and review of laboratory results Abnormal [facility] Glucose [Mass/Vol] 233 mg/dL High 74 - 99 mg/dL [facility] Interpretation and review of laboratory results Abnormal [facility] Glucose [Mass/Vol] 278 mg/dL High 74-99 [facility] Comment on above: Performed By: #### 2 4321-2 #### PACHECO Ferraro ([id number]) [facility] ([facility]) [address] [place] [address] 50520 Glucose [Mass/Vol] 233 mg/dL High 74-99 [facility] Comment on above: Performed By: #### 2 4321-2 #### PACHECO Ferraro ([id number]) [facility] ([facility]) [address] [place] [address] 88553 Magnesiumon 06-02-2023 Magnesium [Mass/Vol] 1.74 mg/dL 1.60 - 2.40 mg/dL [facility] Magnesium [Mass/Vol] 1.74 mg/dL Normal 1.60-2.40 [facility] Comment on above: Performed By: #### 5 8410-2 #### PACHECO Ferraro ([id number]) [facility] ([facility]) [address] [place] [address] 75411 Magnesium [Mass/Vol]on 06-01 Interpretation and review of laboratory results Normal [facility] No Panel Informationon 06-01 [facility] Renal function 2000 panelon 06-02-2023 Albumin BCP dye [Mass/Vol] 3.8 g/dL 3.4 - 5.0 g/dL [facility] Anion gap [Moles/Vol] 11 mmol/L 10 - 20 mmol/L [facility] Calcium [Mass/Vol] 8.7 mg/dL 8.6 - 10. 6 mg/dL [facility] Chloride [Moles/Vol] 102 mmol/L 98 - 107 mmol/L [facility] CO2 [Moles/Vol] 26 mmol/L 21 - 32 mmol/L [facility] Creatinine [Mass/Vol] 0.71 mg/dL 0.50 - 1.30 mg/dL [facility] eGFR - PINF [facility] Comment on above: Calculations of german mated GFR are performed using the 2021 CKD-EPI Study Refit equation without the race variable for the IDMS-Traceable creatinine methods. https://jasn.asnjournals.org/content//ASN.95291 45713 Glucose [Mass/Vol] 163 mg/dL High 74 - 99 mg/dL [facility] Interpretation and review of laboratory results Abnormal [facility] Phosphate [Mass/Vol] 2.1 mg/dL Low 2.5 - 4.9 mg/dL [facility] Comment on above: The performance gregory acteristics of phosphorus testing in heparinized plasma have been validated by the individual laboratory site where testing is performed. Testing on heparinized plasma is not approved by the FDA; however, such approval is not necessary. Potassium [Moles/Vol] 3.3 mmol/L Low 3.5 - 5.3 mmol/L [facility] Sodium [Moles/Vol] 136 mmol/L 136 - 145 mmol/L [facility] Urea nitrogen [Mass/Vol] 8 mg/dL 6 - 23 mg/dL [facility] Albumin BCP dye [Mass/Vol] 3.8 g/dL Normal 3.4-5.0 [facility] Comment on above: Performed By: #### 5 8410-2 #### PACHECO Ferraro ([id number]) [facility] ([facility]) [address] [place] [address] 98100 Anion gap [Moles/Vol] 11 mmol/L Normal 10-20 [facility] Comment on above: Performed By: #### 5 8410-2 #### PACHECO Ferraro ([id number]) [facility] ([facility]) [address] [place] [address] 71263 Calcium [Mass/Vol] 8.7 mg/dL Normal 8.6-10.6 [facility] Comment on above: Performed By: #### 5 8410-2 #### PACHECO Ferraro ([id number]) [facility] ([facility]) [address] [place] [address] 58965 Chloride [Moles/Vol] 102 mmol/L Normal 98-107 [facility] Comment on above: Performed By: #### 5 8410-2 #### PACHECO Ferraro ([id number]) [facility] ([facility]) [address] [place] [address] CO2 [Moles/Vol] 26 mmol/L Normal 21-32 [facility] Comment on above: Performed By: #### 5 8410-2 #### PACHECO Ferraro ([id number]) [facility] ([facility]) [address] [place] [address] 60391 Creatinine [Mass/Vol] 0.71 mg/dL Normal 0.50-1.30 [facility] Comment on above: Performed By: #### 5 8410-2 #### PACHECO Ferraro ([id number]) [facility] ([facility]) [address] [place] [address] 34867 GFR/1.73 sq M.predicted MDRD (S/P/Bld) [Vol rate/Area] mL/min/{1.73_m2} Normal >60 [facility] Comment on above: Result Comment: Calc ulations of estimated GFR are performed using the 2020 CKD-EPI Study Refit equation without the race variable for the IDMS-Traceable creatinine methods. https://jasn.asnjournals.org/content/early//ASN.69173 56825 Performed By: #### 5 8410-2 #### PACHECO Ferraro ([id number]) [facility] ([facility]) [address] [place] [address] 75771 Glucose [Mass/Vol] 163 mg/dL High 74-99 [facility] Comment on above: Performed By: #### 5 8410-2 #### PACHECO Ferraro ([id number]) [facility] ([facility]) [address] [place] [address] 64369 Phosphate [Mass/Vol] 2.1 mg/dL Low 2.5-4.9 [facility] Comment on above: Result Comment: The performance characteristics of phosphorus testing in heparinized plasma have been validated by the individual laboratory site where testing is performed. Testing on heparinized plasma is not approved by the FDA; however, such approval is not necessary. Performed By: #### 5 8410-2 #### PACHECO Ferraro ([id number]) [facility] ([facility]) [address] [place] [address] 14958 Potassium [Moles/Vol] 3.3 mmol/L Low 3.5-5.3 [facility] Comment on above: Performed By: #### 5 8410-2 #### PACHECO Ferraro ([id number]) [facility] ([facility]) [address] [place] [address] 55077 Sodium [Moles/Vol] 136 mmol/L Normal 136-145 [facility] Comment on above: Performed By: #### 5 8410-2 #### PACHECO Ferraro ([id number]) [facility] ([facility]) [address] [place] [address] 59296 Urea nitrogen [Mass/Vol] 8 mg/dL Normal 6-23 [facility] Comment on above: Performed By: #### 5 8410-2 #### PACHECO Ferraro ([id number]) [facility] ([facility]) [address] [place] [address] 41005 CBC panel Auto (Bld)on 05-31 Erythrocyte distribution width (RBC) [Ratio] 14.0 % 11.5 - 14.5 % [facility] Hematocrit (Bld) [Volume fraction] 31.1 % Low 41.0 - 52.0 % [facility] Hemoglobin (Bld) [Mass/Vol] 10.5 g/dL Low 13.5 - 17.5 g/dL [facility] Interpretation and review of laboratory results Abnormal [facility] MCH (RBC) [Entitic mass] 29.0 pg 26.0 - 34.0 pg [facility] MCHC (RBC) [Mass/Vol] 33.8 g/dL 32.0 - 36.0 g/dL [facility] MCV (RBC) [Entitic vol] 86 fL 80 - 100 fL [facility] Nucleated RBC/100 WBC (Bld) [Ratio] 0.0 % [facility] Platelets (Bld) [#/Vol] 233 10*3/uL [facility] RBC (Bld) [#/Vol] 3.62 10*6/uL Low [facility] WBC (Bld) [#/Vol] 9.7 10*3/uL [facility] Erythrocyte distribution width (RBC) [Ratio] 14.0 % Normal 11.5-14.5 [facility] Comment on above: Performed By: #### 5 8410-2 #### PACHECO Ferraro ([id number]) [facility] ([facility]) [address] [place] [address] 71616 Hematocrit (Bld) [Volume fraction] 31.1 % Low 41.0-52.0 [facility] Comment on above: Performed By: #### 5 8410-2 #### PACHECO Ferraro ([id number]) [facility] ([facility]) [address] [place] [address] 45697 Hemoglobin (Bld) [Mass/Vol] 10.5 g/dL Low 13.5-17.5 [facility] Comment on above: Performed By: #### 5 8410-2 #### PACHECO Ferraro ([id number]) [facility] ([facility]) [address] [place] [address] 52183 MCH (RBC) [Entitic mass] 29.0 pg Normal 26.0-34.0 [facility] Comment on above: Performed By: #### 5 8410-2 #### PACHECO Ferraro ([id number]) [facility] ([facility]) [address] [place] [address] 01235 MCHC (RBC) [Mass/Vol] 33.8 g/dL Normal 32.0-36.0 [facility] Comment on above: Performed By: #### 5 8410-2 #### PACHECO Ferraro ([id number]) [facility] ([facility]) [address] [place] [address] 39101 MCV (RBC) [Entitic vol] 86 fL Normal 80-100 [facility] Comment on above: Performed By: #### 5 8410-2 #### PACHECO Ferraro ([id number]) [facility] ([facility]) [address] [place] [address] 37618 Nucleated RBC/100 WBC (Bld) [Ratio] 0.0 /100 WBCs Normal 0.0-0.0 [facility] Comment on above: Performed By: #### 5 8410-2 #### PACHECO Ferraro ([id number]) [facility] ([facility]) [address] [place] [address] 66093 Platelets (Bld) [#/Vol] 233 x10*3/uL Normal 150-450 [facility] Comment on above: Performed By: #### 5 8410-2 #### PACHECO Ferraro ([id number]) [facility] ([facility]) [address] [place] [address] 04460 RBC (Bld) [#/Vol] 3.62 x10*6/uL Low 4.50-5.90 [facility] Comment on above: Performed By: #### 5 8410-2 #### PACHECO Ferraro ([id number]) [facility] [facility] ([facility]) [address] [place] [address] 56756 WBC (Bld) [#/Vol] 9.7 x10*3/uL Normal 4.4-11.3 [facility] Comment on above: Performed By: #### 5 8410-2 #### PACHECO Ferraro ([id number]) [facility] ([facility]) [address] [place] [address] 64038 FL FLUORO IMAGES NO CHARGEon 06-01-2023 FL FLUORO IMAGES NO CHARGE These images are not reportable by radiology and will not be interpreted by Radiologists. Normal [facility] Fibrinogenon 06-01-2023 Fibrinogen Coag (PPP) [Mass/Vol] 195 mg/dL Low 200 - 400 mg/dL [facility] Fibrinogen Coag (PPP) [Mass/Vol] 195 mg/dL Low 200-400 [facility] Comment on above: Performed By: #### 5 8410-2 #### PACHECO Ferraro ([id number]) [facility] ([facility]) [address] [place] [address] Fibrinogen Coag (PPP) [Mass/ Vol]on 06-01-2023 Interpretation and review of laboratory results Abnormal [facility] Gas and Carbon monoxide and Electrolytes panel (BldA)on 06-01-2023 Anion gap 4 (BldA) [Moles/Vol] 11 [facility] Base excess Calc (Bld) [Moles/Vol] -3.0000 mmol/L Low -2.0 - 3.0 mmol/L [facility] Calcium.ionized (BldA) [Moles/Vol] 1.18 mmol/L 1.10 - 1.33 mmol/L [facility] Chloride (BldA) [Moles/Vol] 106 mmol/L 98 - 107 mmol/L [facility] CO2 (Bld) [Partial pressure] 38 mm[Hg] [facility] Glucose [Mass/Vol] 245 mg/dL High 74 - 99 mg/dL [facility] HCO3 (Bld) [Moles/Vol] 22.0 mmol/L 22.0 - 26.0 mmol/L [facility] Hematocrit Est (Bld) [Volume fraction] 32.0 % Low 41.0 - 52.0 % [facility] Hemoglobin (Bld) [Mass/Vol] 10.5 g/dL Low 13.5 - 17.5 g/dL [facility] Inhaled oxygen concentration 50 % [facility] Interpretation and review of laboratory results Abnormal [facility] Lactate (BldA) [Moles/Vol] 2.0 mmol/L 0.4 - 2.0 mmol/L [facility] Oxygen (Bld) [Partial pressure] 202 mm[Hg] High [facility] Oxyhemoglobin (BldA) [Mass fraction] 97.7 % 94.0 - 98.0 % [facility] pH (Bld) 7.37 [pH] Low 7.38 - 7.42 pH [facility] Potassium (BldA) [Moles/Vol] 3.1 mmol/L Low 3.5 - 5.3 mmol/L [facility] Sodium (BldA) [Moles/Vol] 136 mmol/L 136 - 145 mmol/L [facility] Anion gap 4 (BldA) [Moles/Vol] 11 mmo/L Normal 10-25 [facility] Comment on above: Performed By: #### 5 8410-2 #### PACHECO Ferraro ([id number]) [facility] ([facility]) [address] [place] [address] 02220 Base excess Calc (Bld) [Moles/Vol] -3.0000 mmol/L Low -2.0-3.0 [facility] Comment on above: Performed By: #### 5 8410-2 #### PACHECO Ferraro ([id number]) [facility] ([facility]) [address] [place] [address] 78323 Calcium.ionized (BldA) [Moles/Vol] 1.18 mmol/L Normal 1.10-1.33 [facility] Comment on above: Performed By: #### 5 8410-2 #### PACHECO Ferraro ([id number]) [facility] ([facility]) [address] [place] [address] 34978 Chloride (BldA) [Moles/Vol] 106 mmol/L Normal 98-107 [facility] Comment on above: Performed By: #### 5 8410-2 #### PACHECO Ferraro ([id number]) [facility] ([facility]) [address] [place] [address] 99350 CO2 (Bld) [Partial pressure] 38 mm Hg Normal 38-42 [facility] Comment on above: Performed By: #### 5 8410-2 #### PACHECO Ferraro ([id number]) [facility] ([facility]) [address] [place] [address] 23114 Glucose [Mass/Vol] 245 mg/dL High 74-99 [facility] Comment on above: Performed By: #### 5 8410-2 #### PACHECO Ferraro ([id number]) [facility] ([facility]) [address] [place] [address] 60411 HCO3 (Bld) [Moles/Vol] 22.0 mmol/L Normal 22.0-26.0 [facility] Comment on above: Performed By: #### 5 8410-2 #### PACHECO Ferraro ([id number]) [facility] ([facility]) [address] [place] [address] 77379 Hematocrit Est (Bld) [Volume fraction] 32.0 % Low 41.0-52.0 [facility] Comment on above: Performed By: #### 5 8410-2 #### PACHECO Ferraro ([id number]) [facility] ([facility]) [address] [place] [address] 10041 Hemoglobin (Bld) [Mass/Vol] 10.5 g/dL Low 13.5-17.5 [facility] Comment on above: Performed By: #### 5 8410-2 #### PACHECO Ferraro ([id number]) [facility] ([facility]) [address] [place] [address] 51472 Inhaled oxygen concentration 50 % Normal [facility] Comment on above: Performed By: #### 5 8410-2 #### PACHECO Ferraro ([id number]) [facility] ([facility]) [address] [place] [address] 24455 Lactate (BldA) [Moles/Vol] 2.0 mmol/L Normal 0.4-2.0 [facility] Comment on above: Performed By: #### 5 8410-2 #### PACHECO Ferraro ([id number]) [facility] ([facility]) [address] [place] [address] 79054 Oxygen (Bld) [Partial pressure] 202 mm Hg High 85-95 [facility] Comment on above: Performed By: #### 5 8410-2 #### PACHECO Ferraro ([id number]) [facility] ([facility]) [address] [place] [address] 21014 Oxyhemoglobin (BldA) [Mass fraction] 97.7 % Normal 94.0-98.0 [facility] Comment on above: Performed By: #### 5 8410-2 #### PACHECO Ferraro ([id number]) [facility] ([facility]) [address] [place] [address] 89223 pH (Bld) 7.37 [pH] Low 7.38-7.42 [facility] Comment on above: Performed By: #### 5 8410-2 #### PACHECO Ferraro ([id number]) [facility] ([facility]) [address] [place] [address] 73497 Potassium (BldA) [Moles/Vol] 3.1 mmol/L Low 3.5-5.3 [facility] Comment on above: Performed By: #### 5 8410-2 #### PACHECO Ferraro ([id number]) [facility] ([facility]) [address] [place] [address] 41490 Sodium (BldA) [Moles/Vol] 136 mmol/L Normal 136-145 [facility] Comment on above: Performed By: #### 5 8410-2 #### PACHECO Ferraro ([id number]) [facility] ([facility]) [address] [place] [address] 33439 Anion gap 4 (BldA) [Moles/Vol] 13 [facility] Base excess Calc (Bld) [Moles/Vol] -3.6000 mmol/L Low -2.0 - 3.0 mmol/L [facility] Calcium.ionized (BldA) [Moles/Vol] 1.17 mmol/L 1.10 - 1.33 mmol/L [facility] Chloride (BldA) [Moles/Vol] 106 mmol/L 98 - 107 mmol/L [facility] CO2 (Bld) [Partial pressure] 38 mm[Hg] [facility] Glucose [Mass/Vol] 229 mg/dL High 74 - 99 mg/dL [facility] HCO3 (Bld) [Moles/Vol] 21.5 mmol/L Low 22.0 - 26.0 mmol/L [facility] Hematocrit Est (Bld) [Volume fraction] 32.0 % Low 41.0 - 52.0 % [facility] Hemoglobin (Bld) [Mass/Vol] 10.7 g/dL Low 13.5 - 17.5 g/dL [facility] Inhaled oxygen concentration 50 % [facility] Interpretation and review of laboratory results Abnormal [facility] Lactate (BldA) [Moles/Vol] 1.9 mmol/L 0.4 - 2.0 mmol/L [facility] Oxygen (Bld) [Partial pressure] 197 mm[Hg] High [facility] Oxyhemoglobin (BldA) [Mass fraction] 97.9 % 94.0 - 98.0 % [facility] pH (Bld) 7.36 [pH] Low 7.38 - 7.42 pH [facility] Potassium (BldA) [Moles/Vol] 3.6 mmol/L 3.5 - 5.3 mmol/L [facility] Sodium (BldA) [Moles/Vol] 137 mmol/L 136 - 145 mmol/L [facility] Anion gap 4 (BldA) [Moles/Vol] 13 mmo/L Normal 10-25 [facility] Comment on above: Performed By: #### 9 3685-6 #### PACHECO Ferraro ([id number]) [facility] ([facility]) [address] [place] [address] 72103 Base excess Calc (Bld) [Moles/Vol] -3.6000 mmol/L Low -2.0-3.0 [facility] Comment on above: Performed By: #### 9 3685-6 #### PACHECO Ferraro ([id number]) [facility] ([facility]) [address] [place] [address] 20361 Calcium.ionized (BldA) [Moles/Vol] 1.17 mmol/L Normal 1.10-1.33 [facility] Comment on above: Performed By: #### 9 3685-6 #### PACHECO Ferraro ([id number]) [facility] ([facility]) [address] [place] [address] 99766 Chloride (BldA) [Moles/Vol] 106 mmol/L Normal 98-107 [facility] Comment on above: Performed By: #### 9 3685-6 #### PACHECO Ferraro ([id number]) [facility] ([facility]) [address] [place] [address] 43623 CO2 (Bld) [Partial pressure] 38 mm Hg Normal 38-42 [facility] Comment on above: Performed By: #### 9 3685-6 #### PACHECO Ferraro ([id number]) [facility] ([facility]) [address] [place] [address] 06999 Glucose [Mass/Vol] 229 mg/dL High 74-99 [facility] Comment on above: Performed By: #### 9 3685-6 #### PACHECO Ferraro ([id number]) [facility] ([facility]) [address] [place] [address] 58829 HCO3 (Bld) [Moles/Vol] 21.5 mmol/L Low 22.0-26.0 [facility] Comment on above: Performed By: #### 9 3685-6 #### PACHECO Ferraro ([id number]) [facility] ([facility]) [address] [place] [address] 79889 Hematocrit Est (Bld) [Volume fraction] 32.0 % Low 41.0-52.0 [facility] Comment on above: Performed By: #### 9 3685-6 #### PACHECO Ferraro ([id number]) [facility] ([facility]) [address] [place] [address] 82622 Hemoglobin (Bld) [Mass/Vol] 10.7 g/dL Low 13.5-17.5 [facility] Comment on above: Performed By: #### 9 3685-6 #### PACHECO Ferraro ([id number]) [facility] ([facility]) [address] [place] [address] 30642 Inhaled oxygen concentration 50 % Normal [facility] Comment on above: Performed By: #### 9 3685-6 #### PACHECO VILLARREAL L ([id number]) [facility] ([facility]) [address] [place] [address] 71659 Lactate (BldA) [Moles/Vol] 1.9 mmol/L Normal 0.4-2.0 [facility] Comment on above: Performed By: #### 9 3685-6 #### PACHECO Ferraro ([id number]) [facility] ([facility]) [address] [place] [address] 63298 Oxygen (Bld) [Partial pressure] 197 mm Hg High 85-95 [facility] Comment on above: Performed By: #### 9 3685-6 #### PACHECO Ferraro ([id number]) [facility] ([facility]) [address] [place] [address] 65723 Oxyhemoglobin (BldA) [Mass fraction] 97.9 % Normal 94.0-98.0 [facility] Comment on above: Performed By: #### 9 3685-6 #### PACHECO Ferraro ([id number]) [facility] ([facility]) [address] [place] [address] 18588 pH (Bld) 7.36 [pH] Low 7.38-7.42 [facility] Comment on above: Performed By: #### 9 6925-6 #### PACHECO Ferraro ([id number]) [facility] ([facility]) [address] [place] [address] 64867 Potassium (BldA) [Moles/Vol] 3.6 mmol/L Normal 3.5-5.3 [facility] Comment on above: Performed By: #### 9 3005-6 #### PACHECO Ferraro ([id number]) [facility] ([facility]) [address] [place] [address] 64507 Sodium (BldA) [Moles/Vol] 137 mmol/L Normal 136-145 [facility] Comment on above: Performed By: #### 9 3685-6 #### PACHECO Ferraro ([id number]) [facility] ([facility]) [address] [place] [address] 53347 Anion gap 4 (BldA) [Moles/Vol] 10 [facility] Base excess Calc (Bld) [Moles/Vol] -1.3000 mmol/L -2.0 - 3.0 mmol/L [facility] Calcium.ionized (BldA) [Moles/Vol] 1.15 mmol/L 1.10 - 1.33 mmol/L [facility] Chloride (BldA) [Moles/Vol] 106 mmol/L 98 - 107 mmol/L [facility] CO2 (Bld) [Partial pressure] 40 mm[Hg] [facility] Glucose [Mass/Vol] 224 mg/dL High 74 - 99 mg/dL [facility] HCO3 (Bld) [Moles/Vol] 23.7 mmol/L 22.0 - 26.0 mmol/L [facility] Hematocrit Est (Bld) [Volume fraction] 36.0 % Low 41.0 - 52.0 % [facility] Hemoglobin (Bld) [Mass/Vol] 12.0 g/dL Low 13.5 - 17.5 g/dL [facility] Inhaled oxygen concentration 50 % [facility] Interpretation and review of laboratory results Abnormal [facility] Lactate (BldA) [Moles/Vol] 1.4 mmol/L 0.4 - 2.0 mmol/L [facility] Oxygen (Bld) [Partial pressure] 197 mm[Hg] High [facility] Oxyhemoglobin (BldA) [Mass fraction] 98.4 % High 94.0 - 98.0 % [facility] pH (Bld) 7.38 [pH] 7.38 - 7.42 pH [facility] Potassium (BldA) [Moles/Vol] 4.1 mmol/L 3.5 - 5.3 mmol/L [facility] Sodium (BldA) [Moles/Vol] 136 mmol/L 136 - 145 mmol/L [facility] Anion gap 4 (BldA) [Moles/Vol] 10 mmo/L Normal 10-25 [facility] Comment on above: Performed By: #### 9 3685-6 #### PACHECO Ferraro ([id number]) [facility] ([facility]) [address] [place] [address] Base excess Calc (Bld) [Moles/Vol] -1.3000 mmol/L Normal -2.0-3.0 [facility] Comment on above: Performed By: #### 9 3685-6 #### PACHECO Ferraro ([id number]) [facility] ([facility]) [address] [place] [address] 47028 Calcium.ionized (BldA) [Moles/Vol] 1.15 mmol/L Normal 1.10-1.33 [facility] Comment on above: Performed By: #### 9 3685-6 #### PACHECO Ferraro ([id number]) [facility] ([facility]) [address] [place] [address] 17588 Chloride (BldA) [Moles/Vol] 106 mmol/L Normal 98-107 [facility] Comment on above: Performed By: #### 9 3685-6 #### PACHECO Ferraro ([id number]) [facility] ([facility]) [address] [place] [address] 95709 CO2 (Bld) [Partial pressure] 40 mm Hg Normal 38-42 [facility] Comment on above: Performed By: #### 9 3685-6 #### PACHECO Ferraro ([id number]) [facility] ([facility]) [address] [place] [address] 26415 Glucose [Mass/Vol] 224 mg/dL High 74-99 [facility] Comment on above: Performed By: #### 9 3685-6 #### PACHECO Ferraro ([id number]) [facility] ([facility]) [address] [place] [address] 10229 HCO3 (Bld) [Moles/Vol] 23.7 mmol/L Normal 22.0-26.0 [facility] Comment on above: Performed By: #### 9 3685-6 #### PACHECO Ferraro ([id number]) [facility] ([facility]) [address] [place] [address] 56692 Hematocrit Est (Bld) [Volume fraction] 36.0 % Low 41.0-52.0 [facility] Comment on above: Performed By: #### 9 3685-6 #### PACHECO Ferraro ([id number]) [facility] ([facility]) [address] [place] [address] 32422 Hemoglobin (Bld) [Mass/Vol] 12.0 g/dL Low 13.5-17.5 [facility] Comment on above: Performed By: #### 9 3685-6 #### PACHECO Ferraro ([id number]) [facility] ([facility]) [address] [place] [address] 44667 Inhaled oxygen concentration 50 % Normal [facility] Comment on above: Performed By: #### 9 3685-6 #### PACHECO Ferraro ([id number]) [facility] ([facility]) [address] [place] [address] 76108 Lactate (BldA) [Moles/Vol] 1.4 mmol/L Normal 0.4-2.0 [facility] Comment on above: Performed By: #### 9 3685-6 #### PACHECO Ferraro ([id number]) [facility] ([facility]) [address] [place] [address] 41672 Oxygen (Bld) [Partial pressure] 197 mm Hg High 85-95 [facility] Comment on above: Performed By: #### 9 3685-6 #### PACHECO Ferraro ([id number]) [facility] ([facility]) [address] [place] [address] 86833 Oxyhemoglobin (BldA) [Mass fraction] 98.4 % High 94.0-98.0 [facility] Comment on above: Performed By: #### 9 3685-6 #### PACHECO Ferraro ([id number]) [facility] ([facility]) [address] [place] [address] 20682 pH (Bld) 7.38 [pH] Normal 7.38-7.42 [facility] Comment on above: Performed By: #### 9 3685-6 #### PACHECO VILLARREAL L ([id number]) [facility] ([facility]) [address] [place] [address] 44123 Potassium (BldA) [Moles/Vol] 4.1 mmol/L Normal 3.5-5.3 [facility] Comment on above: Performed By: #### 9 3685-6 #### PACHECO Ferraro ([id number]) [facility] ([facility]) [address] [place] [address] Sodium (BldA) [Moles/Vol] 136 mmol/L Normal 136-145 [facility] Comment on above: Performed By: #### 9 3685-6 #### PACHECO Ferraro ([id number]) [facility] ([facility]) [address] [place] [address] Anion gap 4 (BldA) [Moles/Vol] 11 [facility] Base excess Calc (Bld) [Moles/Vol] -2.3000 mmol/L Low -2.0 - 3.0 mmol/L [facility] Calcium.ionized (BldA) [Moles/Vol] 1.20 mmol/L 1.10 - 1.33 mmol/L [facility] Chloride (BldA) [Moles/Vol] 105 mmol/L 98 - 107 mmol/L [facility] CO2 (Bld) [Partial pressure] 38 mm[Hg] [facility] Glucose [Mass/Vol] 145 mg/dL High 74 - 99 mg/dL [facility] HCO3 (Bld) [Moles/Vol] 22.5 mmol/L 22.0 - 26.0 mmol/L [facility] Hematocrit Est (Bld) [Volume fraction] 37.0 % Low 41.0 - 52.0 % [facility] Hemoglobin (Bld) [Mass/Vol] 12.4 g/dL Low 13.5 - 17.5 g/dL [facility] Inhaled oxygen concentration 50 % [facility] Interpretation and review of laboratory results Abnormal [facility] Lactate (BldA) [Moles/Vol] 1.1 mmol/L 0.4 - 2.0 mmol/L [facility] Oxygen (Bld) [Partial pressure] 209 mm[Hg] High [facility] Oxyhemoglobin (BldA) [Mass fraction] 98.0 % 94.0 - 98.0 % [facility] pH (Bld) 7.38 [pH] 7.38 - 7.42 pH [facility] Potassium (BldA) [Moles/Vol] 2.9 mmol/L Critically low 3.5 - 5.3 mmol/L [facility] Sodium (BldA) [Moles/Vol] 136 mmol/L 136 - 145 mmol/L [facility] Anion gap 4 (BldA) [Moles/Vol] 11 mmo/L Normal 10-25 [facility] Comment on above: Performed By: #### 9 3685-6 #### PACHECO Ferraro ([id number]) [facility] ([facility]) [address] [place] [address] 82889 Base excess Calc (Bld) [Moles/Vol] -2.3000 mmol/L Low -2.0-3.0 [facility] Comment on above: Performed By: #### 9 3685-6 #### PACHECO Ferraro ([id number]) [facility] ([facility]) [address] [place] [address] 41827 Calcium.ionized (BldA) [Moles/Vol] 1.20 mmol/L Normal 1.10-1.33 [facility] Comment on above: Performed By: #### 9 3685-6 #### PACHECO Ferraro ([id number]) [facility] ([facility]) [address] [place] [address] 39368 Chloride (BldA) [Moles/Vol] 105 mmol/L Normal 98-107 [facility] Comment on above: Performed By: #### 9 3685-6 #### PACHECO Ferraro ([id number]) [facility] ([facility]) [address] [place] [address] 23591 CO2 (Bld) [Partial pressure] 38 mm Hg Normal 38-42 [facility] Comment on above: Performed By: #### 9 3685-6 #### PACHECO Ferraro ([id number]) [facility] ([facility]) [address] [place] [address] 94603 Glucose [Mass/Vol] 145 mg/dL High 74-99 [facility] Comment on above: Performed By: #### 9 3685-6 #### PACHECO Ferraro ([id number]) [facility] ([facility]) [address] [place] [address] 95974 HCO3 (Bld) [Moles/Vol] 22.5 mmol/L Normal 22.0-26.0 [facility] Comment on above: Performed By: #### 9 3685-6 #### PACHECO Ferraro ([id number]) [facility] ([facility]) [address] [place] [address] 37513 Hematocrit Est (Bld) [Volume fraction] 37.0 % Low 41.0-52.0 [facility] Comment on above: Performed By: #### 9 3685-6 #### PACHECO Ferraro ([id number]) [facility] ([facility]) [address] [place] [id number] Hemoglobin (Bld) [Mass/Vol] 12.4 g/dL Low 13.5-17.5 [facility] Comment on above: Performed By: #### 9 9975-6 #### PACHECO Ferraro ([id number]) [facility] ([facility]) [address] [place] [address] 04610 Inhaled oxygen concentration 50 % Normal [facility] Comment on above: Performed By: #### 9 3685-6 #### PACHECO Ferraro ([id number]) [facility] ([facility]) [address] [place] [address]2317 Lactate (BldA) [Moles/Vol] 1.1 mmol/L Normal 0.4-2.0 [facility] Comment on above: Performed By: #### 9 9605-6 #### PACHECO Ferraro ([id number]) [facility] ([facility]) [address] [place] [address] [id number] Oxygen (Bld) [Partial pressure] 209 mm Hg High 85-95 [facility] Comment on above: Performed By: #### 9 5205-6 #### PACHECO Ferraro ([id number]) [facility] ([facility] CAMPUS) [address] [place] [address] 28339 Oxyhemoglobin (BldA) [Mass fraction] 98.0 % Normal 94.0-98.0 [facility] Comment on above: Performed By: #### 9 3685-6 #### PACHECO Ferraro ([id number]) [facility] ([facility]) [address] [place] [address] 06131 pH (Bld) 7.38 [pH] Normal 7.38-7.42 [facility] Comment on above: Performed By: #### 9 3685-6 #### PACHECO Ferraro ([id number]) [facility] ([facility]) [address] [place] [address] 52895 Potassium (BldA) [Moles/Vol] 2.9 mmol/L Critically low 3.5-5.3 [facility] Comment on above: Performed By: #### 9 3685-6 #### PACHECO Ferraro ([id number]) [facility] ([facility]) [address] [place] [address] 56911 Sodium (BldA) [Moles/Vol] 136 mmol/L Normal 136-145 [facility] Comment on above: Performed By: #### 9 3685-6 #### PACHECO Ferraro ([id number]) [facility] ([facility]) [address] [place] [address] 97153 Glucose Test strip manual (B ld) [Mass/Vol]on 06-01-2023 Glucose [Mass/Vol] 178 mg/dL High 74 - 99 mg/dL [facility] Interpretation and review of laboratory results Abnormal [facility] Glucose [Mass/Vol] 178 mg/dL High 74-99 [facility] Comment on above: Performed By: #### 5 8410-2 #### PACHECO Ferraro ([id number]) [facility] ([facility]) [address] [place] [address] 34755 Glucose [Mass/Vol] 99 mg/dL 74 - 99 mg/dL [facility] Interpretation and review of laboratory results Normal [facility] Glucose [Mass/Vol] 99 mg/dL Normal 74-99 [facility] Comment on above: Performed By: #### 2 341-6 #### PACHECO Ferraro ([id number]) [facility] ([facility]) [address] [place] [address] 32119 Magnesiumon 06-01-2023 Magnesium [Mass/Vol] 1.74 mg/dL 1.60 - 2.40 mg/dL [facility] Magnesium [Mass/Vol] 1.74 mg/dL Normal 1.60-2.40 [facility] Comment on above: Performed By: #### 5 8410-2 #### PACHECO Ferraro ([id number]) [facility] ([facility]) [address] [place] [address] 61026 Magnesium [Mass/Vol]on 05-31 Interpretation and review of laboratory results Normal [facility] VERAB/VERIFY ABORHon 024 ABO group Nom (Bld) O Normal [facility] Comment on above: Performed By: #### V ERAB #### PACHECO Ferraro ([id number]) [facility] ([facility]) [address] [place] [address] 37250 D Ag Ql (Bld) Negative [facility] Comment on above: Performed By: #### V ERAB #### PACHECO Ferraro ([id number]) [facility] ([facility]) [address] [place] [address] 82310 Verify ABO/Rh Group Test (VE RAB)on 06-01-2023 ABO group Nom (Bld) O [facility] D Ag Ql (Bld) Negative [facility] XR tomography Unspecified yaneli dy regionon 06-01-2023 These images are not reportable by radiology and will not be interpreted by Radiologists. IMAGING These images are not reportable by radiology and will not be interpreted by Radiologists. IMAGING No Panel InformationOrdered By: Antione Hong on 05-18-2023 Atrial Rate 73 BPM [facility] Work Phone: [phone] P [place] 2 degrees [facility] Work Phone: [phone] P Offset 186 ms [facility] Work Phone: [phone] P Onset 141 ms [facility] Work Phone: [phone] [place] Interval 144 ms [facility] Work Phone: [phone] Q Onset 213 ms [facility] Work Phone: [phone] QRS Count 12 beats [facility] Work Phone: [phone] QRS Duration 86 ms [facility] Work Phone: [phone] QT Interval 376 ms [facility] Work Phone: [phone] QTC Calculation(Bazett) 414 ms [facility] Work Phone: [phone] QTC Fredericia 401 ms [facility] Work Phone: [phone] R [place] -20 degrees [facility] Work Phone: [phone] T [place] 15 degrees [facility] Work Phone: [phone] T Offset 401 ms [facility] Work Phone: [phone] Ventricular Rate 73 BPM [facility] Work Phone: [phone] [facility] Work Phone: [phone] No Panel Informationon 05-18 Normal sinus rhythm Nonspecific T wave abnormality No previous ECGs available Confirmed by Antione Hong ([id number]) on 05/18/2023 4:34:09 PM Antione Thakkar MD - 05/18/2023 Normal sinus rhythm Nonspecific T wave abnormality No previous ECGs available Confirmed by Antione Hong ([id number]) on 05/18/2023 4:34:09 PM [facility] Work Phone: Basic metabolic 2000 panelon 05-17-2023 Anion gap [Moles/Vol] 15 mmol/L Normal 10-20 [facility] Comment on above: Performed By: #### 2 4321-2 #### PACHECO Ferraro ([id number]) [facility] ([facility]) [address] [place] [address] Calcium [Mass/Vol] 10.1 mg/dL Normal 8.6-10.6 [facility] Comment on above: Performed By: #### 2 4321-2 #### PACHECO VILLARREAL L ([id number]) [facility] ([facility]) [address] [place] [address] Chloride [Moles/Vol] 107 mmol/L Normal 98-107 [facility] Comment on above: Performed By: #### 2 4321-2 #### PACHECO Ferraro ([id number]) [facility] ([facility]) [address] [place] [address] CO2 [Moles/Vol] 23 mmol/L Normal 21-32 [facility] Comment on above: Performed By: #### 2 4321-2 #### PACHECO Ferraro ([id number]) [facility] ([facility]) [address] [place] [address] Creatinine [Mass/Vol] 0.73 mg/dL Normal 0.50-1.30 [facility] Comment on above: Performed By: #### 2 4321-2 #### PACHECO Ferraro ([id number]) [facility] ([facility]) [address] [place] [address] 35051 GFR/1.73 sq M.predicted MDRD (S/P/Bld) [Vol rate/Area] mL/min/{1.73_m2} Normal >60 [facility] Comment on above: Result Comment: Calc ulations of estimated GFR are performed using the 2020 CKD-EPI Study Refit equation without the race variable for the IDMS-Traceable creatinine methods. https://jasn.asnjournals.org/content//ASN.56247 35129 Performed By: #### 2 4321-2 #### PACHECO Ferraro ([id number]) [facility] ([facility]) [address] [place] [address] Glucose [Mass/Vol] 89 mg/dL Normal 74-99 [facility] Comment on above: Performed By: #### 2 4321-2 #### PACHECO Ferraro ([id number]) [facility] ([facility]) [address] [place] [address] 13041 Potassium [Moles/Vol] 3.9 mmol/L Normal 3.5-5.3 [facility] Comment on above: Performed By: #### 2 4321-2 #### PACHECO Ferraro ([id number]) [facility] ([facility]) [address] [place] [address] 16750 Sodium [Moles/Vol] 141 mmol/L Normal 136-145 [facility] Comment on above: Performed By: #### 2 4321-2 #### PACHECO Ferraro ([id number]) [facility] ([facility]) [address] [place] [address] 51973 Urea nitrogen [Mass/Vol] 13 mg/dL Normal 6-23 [facility] Comment on above: Performed By: #### 2 4321-2 #### PACHECO Ferraro ([id number]) [facility] ([facility]) [address] [place] [address] 40378 Blood type and Indirect anti body screen panel (Bld)on 05-17-2023 ABO group Nom (Bld) O Normal [facility] Comment on above: Performed By: #### 3 4532-2 #### PACHECO Ferraro ([id number]) [facility] ([facility]) [address] [place] [address] 39116 Blood group antibody screen Ql Negative [facility] Comment on above: Performed By: #### 3 4532-2 #### PACHECO Ferraro ([id number]) [facility] ([facility]) [address] [place] [address] 53154 D Ag Ql (Bld) Negative Normal [facility] Comment on above: Result Comment: 2nd ABO test required. Order and Collect VERAB Performed By: #### 3 4532-2 #### PACHECO Ferraro ([id number]) [facility] ([facility] [address] [place] [address] 97400 CBC panel Auto (Bld)on 05-17 Erythrocyte distribution width (RBC) [Ratio] 14.4 % Normal 11.5-14.5 [facility] Comment on above: Performed By: #### 5 8410-2 #### PACHECO Ferraro ([id number]) [facility] ([facility]) [address] [place] [address] 73727 Hematocrit (Bld) [Volume fraction] 42.8 % Normal 41.0-52.0 [facility] Comment on above: Performed By: #### 5 8410-2 #### PACHECO Ferraro ([id number]) [facility] ([facility]) [address] [place] [address] 33902 Hemoglobin (Bld) [Mass/Vol] 14.3 g/dL Normal 13.5-17.5 [facility] Comment on above: Performed By: #### 5 8410-2 #### PACHECO Ferraro ([id number]) [facility] ([facility]) [address] [place] [address] 88084 MCH (RBC) [Entitic mass] 29.3 pg Normal 26.0-34.0 [facility] Comment on above: Performed By: #### 5 8410-2 #### PACHECO Ferraro ([id number]) [facility] ([facility]) [address] [place] [address] 26358 MCHC (RBC) [Mass/Vol] 33.4 g/dL Normal 32.0-36.0 [facility] Comment on above: Performed By: #### 5 8410-2 #### PACHECO Ferraro ([id number]) [facility] ([facility]) [address] [place] [address] 83175 MCV (RBC) [Entitic vol] 88 fL Normal 80-100 [facility] Comment on above: Performed By: #### 5 8410-2 #### PACHECO Ferraro ([id number]) [facility] ([facility]) [address] [place] [address] Nucleated RBC/100 WBC (Bld) [Ratio] 0.0 /100 WBCs Normal 0.0-0.0 [facility] Comment on above: Performed By: #### 5 8410-2 #### PACHECO Ferraro ([id number]) [facility] ([facility]) [address] [place] [address] 56196 Platelets (Bld) [#/Vol] 287 x10*3/uL Normal 150-450 [facility] Comment on above: Performed By: #### 5 8410-2 #### PACHECO Ferraro ([id number]) [facility] ([facility]) [address] [place] [address] 61690 RBC (Bld) [#/Vol] 4.88 x10*6/uL Normal 4.50-5.90 [facility] Comment on above: Performed By: #### 5 8410-2 #### PACHECO Ferraro ([id number]) [facility] ([facility]) [address] [place] [address] 25810 WBC (Bld) [#/Vol] 6.6 x10*3/uL Normal 4.4-11.3 [facility] Comment on above: Performed By: #### 5 8410-2 #### PACHECO Ferraro ([id number]) [facility] ([facility]) [address] [place] [address] 31640 ECG 12-LEADon 05-17-2023 ECG 12-LEAD Ventricular Rate 73 Atrial Rate 73 P-R Interval 144 QRS Duration 86 Q-T Interval 376 QTC Calculation(Bazett) 414 P [place] 2 R [place] -20 T [place] 15 QRS Count 12 Q Onset 213 P Onset 141 P Offset 186 T Offset 401 QTC Fredericia 401 Diagnosis Normal sinus rhythm Nonspecific T wave abnormality No previous ECGs available Confirmed by Antione Hong ([id number]) on 05/18/2023 4:34:09 PM Normal [facility] Staphylococcus aureus.methic illin resistant isolateon 05-17-2023 MRSA isol Org specific cx Ql (Nose) Test: Staphylococcus aureus/MRSA colonization, Culture Specimen Source: Anterior Nares Specimen Type: Swab Specimen Date: 05/17/2023 1:43 PM Result Date: 05/19/2023 8:32 AM Result Status: Final result Abnormal: Yes Resulting Lab: [facility] [address] [place] [address] CULTURE Isolated: Methicillin Susceptible Staphylococcus aureus (MSSA) (Abnormal) Abnormal [facility] Comment on above: Performed By: #### 5 2969-3 #### PACHECO Ferraro ([id number]) [facility] ([facility]) [address] [place] [address] HbA1c (Bld) [Mass fraction]o n 04-24-2023 Average glucose Estimated from glycated hemoglobin (Bld) [Mass/Vol] 148 mg/dL Normal Not Established [facility] Comment on above: Order Comment: Diagn osis of Diabetes-Adults Non-Diabetic: < or = 5.6% Increased risk for developing diabetes: 5.7-6.4% Diagnostic of diabetes: > or = 6.5% Monitoring of Diabetes Age (y)....................... Therapeutic Goal (%) Adults: >18.........................<7.0 Pediatrics: 13-18...................<7.5 Pediatrics: 7-12....................<8.0 Pediatrics: 0-6..................... 7.5-8.5 [employer]. Diabetes Care 33(S1), Mar 2009 Performed By: #### 4 548-4 #### PACHECO Ferraro ([id number]) [facility] ([facility]) [address] [place], [place] [address] Hemoglobin A1c/Hemoglobin.to kacey 04-24-2023 HbA1c (Bld) [Mass fraction] 6.8 % High see below [facility] Comment on above: Order Comment: Diagn osis of Diabetes-Adults Non-Diabetic: < or = 5.6% Increased risk for developing diabetes: 5.7-6.4% Diagnostic of diabetes: > or = 6.5% Monitoring of Diabetes Age (y)....................... Therapeutic Goal (%) Adults: >18.........................<7.0 Pediatrics: 13-18...................<7.5 Pediatrics: 7-12....................<8.0 Pediatrics: 0-6..................... 7.5-8.5 [employer]. Diabetes Care 33(S1), Mar 2009 Performed By: #### 4 548-4 #### PACHECO Ferraro ([id number]) [facility] ([facility]) [address] [place], [place] [phone] MR lumbar spine wo conon MR lumbar spine wo con [facility] [place] [address] MRI Report Signed Patient: Lobito Tomlin MR#: [id number] : 1960 Acct:[id number] Age/Sex: 62 / M ADM Date: 12/15/22 Loc: [facility] Room: Type: [facility] CLI Attending Dr: Sully Barney [employer] Copies to: Sully Barney NP Ordering Provider: [...] Prakash Zavala M.D.12/15/2022 3:12 PM Dictation Location: [place] [address] Transcribed By: [facility] 12/15/22 151 Dictated By: Prakash Zavala II, MD 12/15/22 1500 Signed By: 12/15/22 151 Normal [facility] XR hip RT min 2V(w/wo pelvis )*on 10-16-2022 XR hip RT min 2V(w/wo pelvis)* [facility] [place] [address] [place] [address] XRay Report Signed Patient: Lobito Tomlin MR#: [id number] : 1960 Acct:[id number] Age/Sex: 62 / M ADM Date: 10/16/22 Loc: XD Room: Type: [facility] Attending Dr: Abel Sandoval MD Copies to: [...] Raulito Abbasi M.D.10/16/2022 2:39 PM Dictation Location: [place] [address] Transcribed By: [facility] 10/16/22 1439 Dictated By: Raulito Abbasi DO 10/16/22 1437 Signed By: 10/16/22 1439 [facility] XR lumbar spine AP/LAT/FLX/E XTon 10-16-2022 XR lumbar spine AP/LAT/FLX/EXT [facility] [place] [address] XRay Report Signed Patient: Lobito Tomlin MR#: [id number] : 1960 Acct:[id number] Age/Sex: 62 / M ADM Date: 10/16/22 Loc: XD Room: Type: [facility] Attending Dr: Abel Sandoval MD Copies to: [...] West Jr., D.OAmy10/16/2022 2:44 PM Dictation Location: [place] [address] Transcribed By: ALIZA 10/16/22 1444 Dictated By: Roberto West Jr, DO 10/16/22 1440 Signed By: 10/16/22 1444 [facility] CBC AUTO DIFFon 07-19-2022 BASO # 0.1 103/ul Normal 0.0-0.1 [facility] Comment on above: Performed By: #### C BC #### [facility] [address] [place] [address] Dr. Mariann Odom Basophils/100 WBC (Bld) 0.9 % Normal 0.2-2.0 [facility] Comment on above: Performed By: #### C BC #### [facility] [address] [place] [address] Dr. Mariann Odom EO # 0.3 103/ul Normal 0.0-0.7 [facility] Comment on above: Performed By: #### C BC #### [facility] [address] [place] [address] Dr. Mariann Odom Eosinophils/100 WBC (Bld) 4.9 % Normal 0.9-7.0 [facility] Comment on above: Performed By: #### C BC #### [facility] [address] [place] [address] Dr. Mariann Odom Erythrocyte distribution width (RBC) [Ratio] 14.8 % Normal 11.0-15.0 [facility] Comment on above: Performed By: #### C BC #### [facility] [address] [place] [address] Dr. Mariann Odom Hematocrit (Bld) [Volume fraction] 41.5 % Critically low 42.0-54.0 [facility] Comment on above: Performed By: #### C BC #### [facility] [address] [place] [address] Dr. Mariann Odom Hemoglobin (Bld) [Mass/Vol] 13.3 g/dL Critically low 14.0-18.0 [facility] Comment on above: Performed By: #### C BC #### [facility] [address] [place] [address] Dr. Mariann Odom IG # 0.02 10e3/ul Normal 0.00-0.03 [facility] Comment on above: Performed By: #### C BC #### [facility] [address] [place] [address] Dr. Mariann Odom IG % 0.4 % Normal 0.0-0.5 [facility] Comment on above: Performed By: #### C BC #### [facility] [address] [place] [address] Dr. Mariann Odom LYMPH # 1.8 103/ul Normal 1.2-3.8 [facility] Comment on above: Performed By: #### C BC #### [facility] [address] [place] [address] Dr. Mariann Odom Lymphocytes/100 WBC (Bld) 33.1 % Normal 20.5-60.0 [facility] Comment on above: Performed By: #### C BC #### [facility] [address] [place] [address] Dr. Mariann Odom MANUAL DIFF REQ NO Normal [facility] Comment on above: Performed By: #### C BC #### [facility] [address] [place] [address] Dr. Mariann Odom MCH (RBC) [Entitic mass] 28.1 pg Normal 25.9-34.0 [facility] Comment on above: Performed By: #### C BC #### [facility] [address] [place] [address] Dr. Mariann Odom MCHC (RBC) [Mass/Vol] 32.0 g/dL Normal 29.9-35.2 [facility] Comment on above: Performed By: #### C BC #### [facility] [address] [place] [address] Dr. Mariann Odom MCV (RBC) [Entitic vol] 87.7 fL Normal 80.0-94.0 [facility] Comment on above: Performed By: #### C BC #### [facility] [address] [place] [address] Dr. Mariann Odom MONO # 0.6 103/ul Normal 0.3-0.8 [facility] Comment on above: Performed By: #### C BC #### [facility] [address] [place] [address] Dr. Mariann Odom Monocytes/100 WBC (Bld) 11.7 % Normal 1.7-12.0 [facility] Comment on above: Performed By: #### C BC #### [facility] [address] [place] [address] Dr. Mariann Odom NEUT # 2.6 103/ul Normal 1.4-6.5 [facility] Comment on above: Performed By: #### C BC #### [facility] [address] [address] [address] Mariann Odom Neutrophils/100 WBC (Bld) 49.0 % Normal 43.0-75.0 [facility] Comment on above: Performed By: #### C BC #### [facility] [address] [place] [address] Dr. Mariann Odom Platelet mean volume (Bld) [Entitic vol] 11.2 fL Normal 9.5-13.5 [facility] Comment on above: Performed By: #### C BC #### [facility] [address] [address] [address] Mariann Odom PLT 301 103/ul Normal 150-450 [facility] Comment on above: Performed By: #### C BC #### [facility] [address] [place] [address] Dr. Mariann Odom RBC 4.73 106/ul Normal 4.70-6.10 [facility] Comment on above: Performed By: #### C BC #### [facility] [address] [place] [address] Dr. Mariann Odom WBC 5.3 103/ul Normal 4.0-11.0 [facility] Comment on above: Performed By: #### C BC #### [facility] [address] [place] [address] Dr. Mariann Odom PROF 14(COMP METB)on 023 Albumin [Mass/Vol] 4.0 g/dL Normal 3.4-5.0 [facility] Comment on above: Performed By: #### C MP #### [facility] [address] [place] [address] Dr. Mariann Odom Albumin/Globulin [Mass ratio] 1.0 {ratio} Normal [facility] Comment on above: Performed By: #### C MP #### [facility] [address] [place] [address] Dr. Mariann Odom ALP [Catalytic activity/Vol] 99 U/L Normal 46-116 [facility] Comment on above: Performed By: #### C MP #### [facility] [address] [address] [address] Mariann Odom ALT [Catalytic activity/Vol] 36 U/L Normal 16-63 [facility] Comment on above: Performed By: #### C MP #### [facility] [address] [address] [address] Mariann Odom Anion gap [Moles/Vol] 10.6 mmol/L Normal Th [facility] Comment on above: Performed By: #### C MP #### [facility] [address] [address] [address] Mariann Odom AST [Catalytic activity/Vol] 21 U/L Normal 15-37 [facility] Comment on above: Performed By: #### C MP #### [facility] [address] [place] [address] Dr. Mariann Odom Bilirubin [Mass/Vol] 0.2 mg/dL Normal 0.2-1.0 [facility] Comment on above: Performed By: #### C MP #### [facility] [address] [place] [address] Dr. Mariann Odom Calcium [Mass/Vol] 9.6 mg/dL Normal 8.5-10.1 [facility] Comment on above: Performed By: #### C MP #### [facility] [address] [place] [address] Dr. Mariann Odom Chloride [Moles/Vol] 102 mmol/L Normal 98-107 [facility] Comment on above: Performed By: #### C MP #### [facility] [address] [address] [address] Mariann Odom CO2 [Moles/Vol] 30.5 mmol/L Normal 21.0-32.0 [facility] Comment on above: Performed By: #### C MP #### [facility] [address] [place] [address] Dr. Mariann Odom Creatinine [Mass/Vol] 0.93 mg/dL Normal 0.70-1.30 [facility] Comment on above: Performed By: #### C MP #### [facility] [address] [place] [address] [address] Mariann Odom EGFR-AF CENTRAL AFRICAN >60 Normal >=60 [facility] Comment on above: Performed By: #### C MP #### [facility] [address] [address] [address] Mariann Odom EGFR-NON AF CENTRAL AFRICAN >60 Normal >=60 [facility] Comment on above: Performed By: #### C MP #### [facility] [address] [address] [address] Mariann Odom Globulin (S) [Mass/Vol] 3.9 g/dL Normal [facility] Comment on above: Performed By: #### C MP #### [facility] [address] [address] [address] Mariann Odom Glucose [Mass/Vol] 126 mg/dL Critically high 74-106 [facility] Comment on above: Performed By: #### C MP #### [facility] [address] [address] [address] Mariann Odom Potassium [Moles/Vol] 4.1 mmol/L Normal 3.5-5.1 [facility] Comment on above: Performed By: #### C MP #### [facility] [address] [place] [address] Dr. Mariann Odom Protein [Mass/Vol] 7.9 g/dL Normal 6.4-8.2 [facility] Comment on above: Performed By: #### C MP #### [facility] [address] [address] [address] Mariann Odmo Sodium [Moles/Vol] 139 mmol/L Normal 136-145 [facility] Comment on above: Performed By: #### C MP #### [facility] [address] [address] [address] Mariann Odom Urea nitrogen [Mass/Vol] 16.0 mg/dL Normal 7.0-18.0 [facility] Comment on above: Performed By: #### C MP #### [facility] [address] [address] [address] Mariann Odom Urea nitrogen/Creatinine [Mass ratio] 17.2 mg/mg Normal [facility] Comment on above: Performed By: #### C MP #### [facility] [address] [place] [address] Dr. Mariann Odom SED RATE [facility] 2022 SED RATE 13 mm/hr Normal <=20 [facility] Comment on above: Performed By: #### S EDR #### [facility] [address] [place] [address] Dr. Mariann Odom CBC AUTO DIFFon 04-11-2022 BASO # 0.1 103/ul Normal 0.0-0.1 [facility] Comment on above: Performed By: #### C BC #### [facility] [address] [place] [address] Dr. Mariann Odom Basophils/100 WBC (Bld) 0.9 % Normal 0.2-2.0 [facility] Comment on above: Performed By: #### C BC #### [facility] [address] [place] [address] Dr. Mariann Odom EO # 0.2 103/ul Normal 0.0-0.7 [facility] Comment on above: Performed By: #### C BC #### [facility] [address] [place] [address] Dr. Mariann Odom Eosinophils/100 WBC (Bld) 4.2 % Normal 0.9-7.0 [facility] Comment on above: Performed By: #### C BC #### [facility] [address] [place] [address] Dr. Mariann Odom Erythrocyte distribution width (RBC) [Ratio] 14.3 % Normal 11.0-15.0 [facility] Comment on above: Performed By: #### C BC #### [facility] [address] [place] [address] Dr. Mariann Odom Hematocrit (Bld) [Volume fraction] 41.7 % Critically low 42.0-54.0 [facility] Comment on above: Performed By: #### C BC #### [facility] [address] [place] [address] Dr. Mariann Odom Hemoglobin (Bld) [Mass/Vol] 13.6 g/dL Critically low 14.0-18.0 [facility] Comment on above: Performed By: #### C BC #### [facility] [address] [place] [address] Dr. Mariann Odom IG # 0.01 10e3/ul Normal 0.00-0.03 [facility] Comment on above: Performed By: #### C BC #### [facility] [address] [place] [address] Dr. Mariann Odom IG % 0.2 % Normal 0.0-0.5 [facility] Comment on above: Performed By: #### C BC #### [facility] [address] [place] [address] Dr. Mariann Odom LYMPH # 1.6 103/ul Normal 1.2-3.8 [facility] Comment on above: Performed By: #### C BC #### [facility] [address] [place] [address] Dr. Mariann Odom Lymphocytes/100 WBC (Bld) 28.8 % Normal 20.5-60.0 [facility] Comment on above: Performed By: #### C BC #### [facility] [address] [place] [address] Dr. Mariann Odom MANUAL DIFF REQ NO Normal [facility] Comment on above: Performed By: #### C BC #### [facility] [address] [place] [address] Dr. Mariann Odom MCH (RBC) [Entitic mass] 27.7 pg Normal 25.9-34.0 [facility] Comment on above: Performed By: #### C BC #### [facility] [address] [place] [address] Dr. Mariann Odom MCHC (RBC) [Mass/Vol] 32.6 g/dL Normal 29.9-35.2 [facility] Comment on above: Performed By: #### C BC #### [facility] [address] [place] [address] Dr. Mariann Odom MCV (RBC) [Entitic vol] 84.9 fL Normal 80.0-94.0 [facility] Comment on above: Performed By: #### C BC #### [facility] [address] [place] [address] Dr. Mariann Odom MONO # 0.6 103/ul Normal 0.3-0.8 [facility] Comment on above: Performed By: #### C BC #### [facility] [address] [place] [address] Dr. Mariann Odom Monocytes/100 WBC (Bld) 10.4 % Normal 1.7-12.0 [facility] Comment on above: Performed By: #### C BC #### [facility] [address] [place] [address] Dr. Mariann Odom NEUT # 3.2 103/ul Normal 1.4-6.5 [facility] Comment on above: Performed By: #### C BC #### [facility] [address] [place] [address] Dr. Mariann Odom Neutrophils/100 WBC (Bld) 55.5 % Normal 43.0-75.0 [facility] Comment on above: Performed By: #### C BC #### [facility] [address] [place] [address] Dr. Mariann Odom Platelet mean volume (Bld) [Entitic vol] 10.8 fL Normal 9.5-13.5 [facility] Comment on above: Performed By: #### C BC #### [facility] [address] [place] [address] Dr. Mariann Odom PLT 269 103/ul Normal 150-450 [facility] Comment on above: Performed By: #### C BC #### [facility] [address] [place] [address] Dr. Mariann Odom RBC 4.91 106/ul Normal 4.70-6.10 [facility] Comment on above: Performed By: #### C BC #### [facility] [address] [place] [address] Dr. Mariann Odom WBC 5.7 103/ul Normal 4.0-11.0 [facility] Comment on above: Performed By: #### C BC #### [facility] [address] [place] [address] Dr. Mariann Odom PROF 14(COMP METB)on 023 Albumin [Mass/Vol] 3.6 g/dL Normal 3.4-5.0 [facility] Comment on above: Performed By: #### C MP #### [facility] [address] [place] [address] Dr. Mariann Odom Albumin/Globulin [Mass ratio] 1.1 {ratio} Normal [facility] Comment on above: Performed By: #### C MP #### [facility] [address] [place] [address] Dr. Mariann Odom ALP [Catalytic activity/Vol] 95 U/L Normal 46-116 [facility] Comment on above: Performed By: #### C MP #### [facility] [address] [place] [address] Dr. Mariann Odom ALT [Catalytic activity/Vol] 39 U/L Normal 16-63 [facility] Comment on above: Performed By: #### C MP #### [facility] [address] [place] [address] Dr. Mariann Odom Anion gap [Moles/Vol] 11.1 mmol/L Normal [facility] Comment on above: Performed By: #### C MP #### [facility] [address] [place] [address] Dr. Mariann Odom AST [Catalytic activity/Vol] 25 U/L Normal 15-37 [facility] Comment on above: Performed By: #### C MP #### [facility] [address] [place] [address] Dr. Mariann Odom Bilirubin [Mass/Vol] 0.3 mg/dL Normal 0.2-1.0 [facility] Comment on above: Performed By: #### C MP #### [facility] [address] [place] [address] Dr. Mariann Odom Calcium [Mass/Vol] 9.0 mg/dL Normal 8.5-10.1 [facility] Comment on above: Performed By: #### C MP #### [facility] [address] [address] [address] Mariann Odom Chloride [Moles/Vol] 104 mmol/L Normal 98-107 [facility] Comment on above: Performed By: #### C MP #### [facility] [address] [place] [address] Dr. Mariann Odom CO2 [Moles/Vol] 27.8 mmol/L Normal 21.0-32.0 [facility] Comment on above: Performed By: #### C MP #### [facility] [address] [place] [address] Dr. Marinan Odom Creatinine [Mass/Vol] 0.81 mg/dL Normal 0.70-1.30 [facility] Comment on above: Performed By: #### C MP #### [facility] [address] [place] [address] Dr. Mariann Odom EGFR-AF CENTRAL AFRICAN >60 Normal >=60 [facility] Comment on above: Performed By: #### C MP #### [facility] [address] [place] [address] Dr. Mariann Odom EGFR-NON AF CENTRAL AFRICAN >60 Normal >=60 [facility] Comment on above: Performed By: #### C MP #### [facility] [address] [place] [address] Dr. Mariann Odom Globulin (S) [Mass/Vol] 3.4 g/dL Normal [facility] Comment on above: Performed By: #### C MP #### [facility] [address] [place] [address] Dr. Mairann Odom Glucose [Mass/Vol] 189 mg/dL Critically high 74-106 [facility] Comment on above: Performed By: #### C MP #### [facility] [address] [place] [address] Dr. Mariann Odom Potassium [Moles/Vol] 3.9 mmol/L Normal 3.5-5.1 [facility] Comment on above: Performed By: #### C MP #### [facility] [address] [place] [address] Dr. Mariann Odom Protein [Mass/Vol] 7.0 g/dL Normal 6.4-8.2 [facility] Comment on above: Performed By: #### C MP #### [facility] [address] [address] [address] Mariann Odom Sodium [Moles/Vol] 139 mmol/L Normal 136-145 [facility] Comment on above: Performed By: #### C MP #### [facility] [address] [address] [address] Mariann Odom Urea nitrogen [Mass/Vol] 14.0 mg/dL Normal 7.0-18.0 [facility] Comment on above: Performed By: #### C MP #### [facility] [address] [place] [address] Dr. Mariann Odom Urea nitrogen/Creatinine [Mass ratio] 17.3 mg/mg Normal [facility] Comment on above: Performed By: #### C MP #### [facility] [address] [place] [address] Dr. Mariann Odom SED RATE [facility] 2022 SED RATE 24 mm/hr Critically high <=20 [facility] Comment on above: Performed By: #### C MP #### [facility] [address] [place] [address] Dr. Mariann Odom GLYCOHEMOGLOBIN A1Con 2022 ADA RECOMMENDATION SEE BELOW Normal [facility] Comment on above: Result Comment: ADA RECOMMENDED LIMIT 4.0 - 6.0 ADA THERAPEUTIC TARGET < 7.0 ACTION SUGGESTED > 7.0 Performed By: #### A 1C #### [facility] [address] [place] [address] Dr. Mariann Odom Glucose [Mass/Vol] 263 mg/dL Normal [facility] Comment on above: Performed By: #### A 1C #### [facility] [address] [place] [address] Dr. Mariann Odom HbA1c (Bld) [Mass fraction] 10.8 % Critically high 4.5-6.2 [facility] Comment on above: Performed By: #### A 1C #### [facility] [address] [address] [address] Mariann Odom CBC AUTO DIFFon 01-03-2022 BASO # 0.0 103/ul Normal 0.0-0.1 [facility] Comment on above: Performed By: #### C MP #### [facility] [address] [address] [address] Mariann Odom Basophils/100 WBC (Bld) 0.6 % Normal 0.2-2.0 [facility] Comment on above: Performed By: #### C MP #### [facility] [address] [address] [address] Mariann Odom EO # 0.4 103/ul Normal 0.0-0.7 [facility] Comment on above: Performed By: #### C MP #### [facility] [address] [place] [address] Dr. Mariann Odom Eosinophils/100 WBC (Bld) 5.0 % Normal 0.9-7.0 [facility] Comment on above: Performed By: #### C MP #### [facility] [address] [place] [address] Dr. Mariann Odom Erythrocyte distribution width (RBC) [Ratio] 13.5 % Normal 11.0-15.0 [facility] Comment on above: Performed By: #### C MP #### [facility] [address] [place] [address] Dr. Mariann Odom Hematocrit (Bld) [Volume fraction] 42.2 % Normal 42.0-54.0 [facility] Comment on above: Performed By: #### C MP #### [facility] [address] [place] [address] Dr. Mariann Odom Hemoglobin (Bld) [Mass/Vol] 13.9 g/dL Critically low 14.0-18.0 [facility] Comment on above: Performed By: #### C MP #### [facility] [address] [place] [address] Dr. Mariann Odom IG # 0.02 10e3/ul Normal 0.00-0.03 [facility] Comment on above: Performed By: #### C MP #### [facility] [address] [place] [address] Dr. Mariann Odom IG % 0.3 % Normal 0.0-0.5 [facility] Comment on above: Performed By: #### C MP #### [facility] [address] [place] [address] Dr. Mariann Odom LYMPH # 1.8 103/ul Normal 1.2-3.8 [facility] Comment on above: Performed By: #### C MP #### [facility] [address] [place] [address] Dr. Mariann Odom Lymphocytes/100 WBC (Bld) 24.7 % Normal 20.5-60.0 [facility] Comment on above: Performed By: #### C MP #### [facility] [address] [place] [address] Dr. Mariann Odom MANUAL DIFF REQ NO Normal [facility] Comment on above: Performed By: #### C MP #### [facility] [address] [place] [address] Dr. Mariann Odom MCH (RBC) [Entitic mass] 28.3 pg Normal 25.9-34.0 [facility] Comment on above: Performed By: #### C MP #### [facility] [address] [place] [address] Dr. Mariann Odom MCHC (RBC) [Mass/Vol] 32.9 g/dL Normal 29.9-35.2 [facility] Comment on above: Performed By: #### C MP #### [facility] [address] [place] [address] Dr. Mariann Odom MCV (RBC) [Entitic vol] 85.9 fL Normal 80.0-94.0 [facility] Comment on above: Performed By: #### C MP #### [facility] [address] [place] [address] Dr. Mariann Odom MONO # 0.6 103/ul Normal 0.3-0.8 [facility] Comment on above: Performed By: #### C MP #### [facility] [address] [place] [address] Dr. Mariann Odom Monocytes/100 WBC (Bld) 8.8 % Normal 1.7-12.0 [facility] Comment on above: Performed By: #### C MP #### [facility] [address] [place] [address] Dr. Mariann Odom NEUT # 4.4 103/ul Normal 1.4-6.5 [facility] Comment on above: Performed By: #### C MP #### [facility] [address] [place] [address] Dr. Mariann Odom Neutrophils/100 WBC (Bld) 60.6 % Normal 43.0-75.0 [facility] Comment on above: Performed By: #### C MP #### [facility] [address] [place] [address] Dr. Mariann Odom Platelet mean volume (Bld) [Entitic vol] 11.2 fL Normal 9.5-13.5 [facility] Comment on above: Performed By: #### C MP #### [facility] [address] [place] [address] Dr. Mariann Odom PLT 268 103/ul Normal 150-450 [facility] Comment on above: Performed By: #### C MP #### [facility] [address] [place] [address] Dr. Mariann Odom RBC 4.91 106/ul Normal 4.70-6.10 [facility] Comment on above: Performed By: #### C MP #### [facility] [address] [place] [address] Dr. Mariann Odom WBC 7.2 103/ul Normal 4.0-11.0 [facility] Comment on above: Performed By: #### C MP #### [facility] [address] [place] [address] Dr. Mariann Odom PROF 14(COMP METB)on 022 Albumin [Mass/Vol] 3.8 g/dL Normal 3.4-5.0 [facility] Comment on above: Performed By: #### C MP #### [facility] [address] [place], [place] [id number] Dr. Mariann Odom Albumin/Globulin [Mass ratio] 1.0 {ratio} Normal [facility] Comment on above: Performed By: #### C MP #### [facility] [address] [place] [address] Dr. Mariann Odom ALP [Catalytic activity/Vol] 95 U/L Normal 46-116 [facility] Comment on above: Performed By: #### C MP #### [facility] [address] [address] [address] Mariann Odom ALT [Catalytic activity/Vol] 66 U/L Critically high 16-63 [facility] Comment on above: Performed By: #### C MP #### [facility] [address] [place] [address] Dr. Mariann Odom Anion gap [Moles/Vol] 12.7 mmol/L Normal [facility] Comment on above: Performed By: #### C MP #### [facility] [address] [place] [address] Dr. Mariann Odom AST [Catalytic activity/Vol] 42 U/L Critically high 15-37 [facility] Comment on above: Performed By: #### C MP #### [facility] [address] [place] [address] Dr. Mariann Odom Bilirubin [Mass/Vol] 0.4 mg/dL Normal 0.2-1.0 [facility] Comment on above: Performed By: #### C MP #### [facility] [address] [place] [address] Dr. Mariann Odom Calcium [Mass/Vol] 9.0 mg/dL Normal 8.5-10.1 [facility] Comment on above: Performed By: #### C MP #### [facility] [address] [place] [address] Dr. Mariann Odom Chloride [Moles/Vol] 101 mmol/L Normal 98-107 [facility] Comment on above: Performed By: #### C MP #### [facility] [address] [place] [address] Dr. Mariann Odom CO2 [Moles/Vol] 27.0 mmol/L Normal 21.0-32.0 [facility] Comment on above: Performed By: #### C MP #### [facility] [address] [place] [address] Dr. Mariann Odom Creatinine [Mass/Vol] 1.22 mg/dL Normal 0.70-1.30 [facility] Comment on above: Performed By: #### C MP #### [facility] [address] [place] [address] Dr. Mariann Odom EGFR-AF CENTRAL AFRICAN >60 Normal >=60 [facility] Comment on above: Performed By: #### C MP #### [facility] [address] [address] [address] Mariann Odom EGFR-NON AF CENTRAL AFRICAN >60 Normal >=60 [facility] Comment on above: Performed By: #### C MP #### [facility] [address] [place] [address] Dr. Mariann Odom Globulin (S) [Mass/Vol] 3.7 g/dL Normal [facility] Comment on above: Performed By: #### C MP #### [facility] [address] [place] [address] Dr. Mariann Odom Glucose [Mass/Vol] 288 mg/dL Critically high 74-106 [facility] Comment on above: Performed By: #### C MP #### [facility] [address] [place] [address] Dr. Mariann Odom Potassium [Moles/Vol] 3.7 mmol/L Normal 3.5-5.1 [facility] Comment on above: Performed By: #### C MP #### [facility] [address] [place] [address] Dr. Mariann Odom Protein [Mass/Vol] 7.5 g/dL Normal 6.4-8.2 [facility] Comment on above: Performed By: #### C MP #### [facility] [address] [place] [address] Dr. Mariann Odom Sodium [Moles/Vol] 137 mmol/L Normal 136-145 [facility] Comment on above: Performed By: #### C MP #### [facility] [address] [address] [address] Mariann Odom Urea nitrogen [Mass/Vol] 13.0 mg/dL Normal 7.0-18.0 [facility] Comment on above: Performed By: #### C MP #### [facility] [address] [place] [address] Dr. Mariann Odom Urea nitrogen/Creatinine [Mass ratio] 10.7 mg/mg Normal [facility] Comment on above: Performed By: #### C MP #### [facility] [address] [place] [address] Dr. Mariann Odom SED RATE [facility] 2021 SED RATE 26 mm/hr Critically high <=20 [facility] Comment on above: Performed By: #### C MP #### [facility] [address] [place] [address] Dr. Mariann Odom CBC AUTO DIFFon 09-13-2021 BASO # 0.0 103/ul Normal 0.0-0.1 [facility] Comment on above: Performed By: #### C MP #### [facility] [address] [place] [address] Dr. Mariann Odom Basophils/100 WBC (Bld) 0.8 % Normal 0.2-2.0 [facility] Comment on above: Performed By: #### C MP #### [facility] [address] [place] [address] Dr. Mariann Odom EO # 0.2 103/ul Normal 0.0-0.7 [facility] Comment on above: Performed By: #### C MP #### [facility] [address] [place] [address] Dr. Mariann Odom Eosinophils/100 WBC (Bld) 4.5 % Normal 0.9-7.0 [facility] Comment on above: Performed By: #### C MP #### [facility] [address] [place] [address] Dr. Mariann Odom Erythrocyte distribution width (RBC) [Ratio] 15.0 % Normal 11.0-15.0 [facility] Comment on above: Performed By: #### C MP #### [facility] [address] [address] [address] Mariann Odom Hematocrit (Bld) [Volume fraction] 40.6 % Critically low 42.0-54.0 [facility] Comment on above: Performed By: #### C MP #### [facility] [address] [place] [address] Dr. Mariann Odom Hemoglobin (Bld) [Mass/Vol] 12.8 g/dL Critically low 14.0-18.0 [facility] Comment on above: Performed By: #### C MP #### [facility] [address] [address] [address] Mariann Odom IG # 0.01 10e3/ul Normal 0.00-0.03 [facility] Comment on above: Performed By: #### C MP #### [facility] [address] [place] [address] Dr. Mariann Odom IG % 0.2 % Normal 0.0-0.5 [facility] Comment on above: Performed By: #### C MP #### [facility] [address] [place] [address] Dr. Mariann Odom LYMPH # 1.5 103/ul Normal 1.2-3.8 [facility] Comment on above: Performed By: #### C MP #### [facility] [address] [place] [address] Dr. Mariann Odom Lymphocytes/100 WBC (Bld) 31.0 % Normal 20.5-60.0 [facility] Comment on above: Performed By: #### C MP #### [facility] [address] [place] [address] Dr. Mariann Odom MANUAL DIFF REQ NO Normal [facility] Comment on above: Performed By: #### C MP #### [facility] [address] [place] [address] Dr. Mariann Odom MCH (RBC) [Entitic mass] 28.3 pg Normal 25.9-34.0 [facility] Comment on above: Performed By: #### C MP #### [facility] [address] [address] [address] Mariann Odom MCHC (RBC) [Mass/Vol] 31.5 g/dL Normal 29.9-35.2 [facility] Comment on above: Performed By: #### C MP #### [facility] [address] [address] [address] Mariann Odom MCV (RBC) [Entitic vol] 89.6 fL Normal 80.0-94.0 [facility] Comment on above: Performed By: #### C MP #### [facility] [address] [address] [address] Mariann Odom MONO # 0.6 103/ul Normal 0.3-0.8 [facility] Comment on above: Performed By: #### C MP #### [facility] [address] [place] [address] Dr. Mariann Odom Monocytes/100 WBC (Bld) 11.4 % Normal 1.7-12.0 [facility] Comment on above: Performed By: #### C MP #### [facility] [address] [place] [address] Dr. Mariann Odom NEUT # 2.6 103/ul Normal 1.4-6.5 [facility] Comment on above: Performed By: #### C MP #### [facility] [address] [place] [address] Dr. Mariann Odom Neutrophils/100 WBC (Bld) 52.1 % Normal 43.0-75.0 [facility] Comment on above: Performed By: #### C MP #### [facility] [address] [place] [address] Dr. Mariann Odom Platelet mean volume (Bld) [Entitic vol] 11.9 fL Normal 9.5-13.5 [facility] Comment on above: Performed By: #### C MP #### [facility] [address] [place] [address] Dr. Mariann Odom PLT 288 103/ul Normal 150-450 [facility] Comment on above: Performed By: #### C MP #### [facility] [address] [address] [address] Mariann Odom RBC 4.53 106/ul Critically low 4.70-6.10 [facility] Comment on above: Performed By: #### C MP #### [facility] [address] [address] [address] Mariann Odom WBC 4.9 103/ul Normal 4.0-11.0 [facility] Comment on above: Performed By: #### C MP #### [facility] [address] [address] [address] Mariann Odom GLYCOHEMOGLOBIN A1Con 2021 ADA RECOMMENDATION SEE BELOW Normal [facility] Comment on above: Result Comment: ADA RECOMMENDED LIMIT 4.0 - 6.0 ADA THERAPEUTIC TARGET < 7.0 ACTION SUGGESTED > 7.0 Performed By: #### A 1C #### [facility] [address] [place] [address] Dr. Mariann Odom Glucose [Mass/Vol] 154 mg/dL Normal [facility] Comment on above: Performed By: #### A 1C #### [facility] [address] [place] [address] Dr. Mariann Odom HbA1c (Bld) [Mass fraction] 7.0 % Critically high 4.5-6.2 [facility] Comment on above: Performed By: #### A 1C #### [facility] [address] [place] [address] Dr. Mariann Odom LIPID PROFILEon 09-13-2021 CHOL-HDL RATIO NORM SEE BELOW Normal [facility] Comment on above: Result Comment: 3.3 - 4.4 LOW RISK 4.4 - 7.1 AVERAGE RISK 7.1 - 11.0 MODERATE RISK >11.0 HIGH RISK Performed By: #### C MP #### [facility] [address] [place] [address] Dr. Mariann Odom Cholesterol [Mass/Vol] 114 mg/dL Normal <=200 Th [facility] Comment on above: Performed By: #### C MP #### [facility] [address] [address] [address] Mariann Odom Cholesterol in HDL [Mass/Vol] 50 mg/dL Normal 40-60 [facility] Comment on above: Performed By: #### C MP #### [facility] [address] [place] [address] Dr. Mariann Odom Cholesterol in LDL [Mass/Vol] 52.4 mg/dL Normal [facility] Comment on above: Performed By: #### C MP #### [facility] [address] [address] [address] Mariann Odom Cholesterol.total/Chol esterol in HDL [Mass ratio] 2.3 {ratio} Normal [facility] Comment on above: Performed By: #### C MP #### [facility] [address] [place] [address] Dr. Mariann Odom HDL NORMAL > or = 60 mg/dl - LOW CARDIOVASCULAR RISK <40 mg/dl - HIGH CARDIOVASCULAR RISK Normal [facility] Comment on above: Performed By: #### C MP #### [facility] [address] [place] [address] Dr. Mariann Odom LDL CALC NORMAL SEE BELOW Normal [facility] Comment on above: Result Comment: <100 mg/dl OPTIMAL 100 - 129 mg/dl NEAR OR ABOVE OPTIMAL 130 - 159 mg/dl BORDERLINE HIGH 160 - 189 mg/dl HIGH >190 mg/dl VERY HIGH Performed By: #### C MP #### [facility] [address] [place] [address] Dr. Mariann Odom Triglyceride [Mass/Vol] 58 mg/dL Normal <=150 [facility] Comment on above: Performed By: #### C MP #### [facility] [address] [place] [address] Dr. Mariann Odom VLDL CALC 11.6 mg/dL Normal [facility] Comment on above: Performed By: #### C MP #### [facility] [address] [place] [address] Dr. Mariann Odom LIVER PROFILEon 09-13-2021 Albumin [Mass/Vol] 4.0 g/dL Normal 3.4-5.0 [facility] Comment on above: Performed By: #### C MP #### [facility] [address] [place] [address] Dr. Mariann Odom Albumin/Globulin [Mass ratio] 1.1 {ratio} Normal [facility] Comment on above: Performed By: #### C MP #### [facility] [address] [place] [address] Dr. Mariann Odom ALP [Catalytic activity/Vol] 72 U/L Normal 46-116 [facility] Comment on above: Performed By: #### C MP #### [facility] [address] [place] [address] Dr. Mariann Odom ALT [Catalytic activity/Vol] 43 U/L Normal 16-63 [facility] Comment on above: Performed By: #### C MP #### [facility] [address] [place] [address] Dr. Mariann Odom AST [Catalytic activity/Vol] 28 U/L Normal 15-37 [facility] Comment on above: Performed By: #### C MP #### [facility] [address] [place] [address] Dr. Mariann Odom BILI, CONJUGATED 0.1 mg/dL Normal 0.0-0.2 [facility] Comment on above: Performed By: #### C MP #### [facility] [address] [place] [address] Dr. Mariann Odom Bilirubin [Mass/Vol] 0.4 mg/dL Normal 0.2-1.0 [facility] Comment on above: Performed By: #### C MP #### [facility] [address] [place] [address] Dr. Mariann Odom Globulin (S) [Mass/Vol] 3.5 g/dL Normal [facility] Comment on above: Performed By: #### C MP #### [facility] [address] [place] [address] Dr. Mariann Odom Protein [Mass/Vol] 7.5 g/dL Normal 6.4-8.2 [facility] Comment on above: Performed By: #### C MP #### [facility] [address] [place] [address] Dr. Mariann Odom MICROALBUMIN, RAND URon 06-2 mALB 1.5 mg/L Normal <=30.0 [facility] Comment on above: Performed By: #### M ALBR #### [facility] [address] [place] [address] Dr. Mariann Odom PROF CHEM 8 (BAS METB)on Anion gap [Moles/Vol] 11.3 mmol/L Normal [facility] Comment on above: Performed By: #### C MP #### [facility] [address] [place] [address] Dr. Mariann Odom Calcium [Mass/Vol] 9.1 mg/dL Normal 8.5-10.1 [facility] Comment on above: Performed By: #### C MP #### [facility] [address] [place] [address] Dr. Mariann Odom Chloride [Moles/Vol] 106 mmol/L Normal 98-107 [facility] Comment on above: Performed By: #### C MP #### [facility] [address] [place] [address] Dr. Mariann Odom CO2 [Moles/Vol] 29.0 mmol/L Normal 21.0-32.0 [facility] Comment on above: Performed By: #### C MP #### [facility] [address] [place] [address] Dr. Mariann Odom Creatinine [Mass/Vol] 0.93 mg/dL Normal 0.70-1.30 [facility] Comment on above: Performed By: #### C MP #### [facility] [address] [place] [address] Dr. Mariann Odom EGFR-AF CENTRAL AFRICAN >60 Normal >=60 [facility] Comment on above: Performed By: #### C MP #### [facility] [address] [place] [address] Dr. Mariann Odom EGFR-NON AF CENTRAL AFRICAN >60 Normal >=60 [facility] Comment on above: Performed By: #### C MP #### [facility] [address] [place] [address] Dr. Mariann Odom Glucose [Mass/Vol] 99 mg/dL Normal 74-106 [facility] Comment on above: Performed By: #### C MP #### [facility] [address] [place] [address] Dr. Mariann Odom Potassium [Moles/Vol] 4.3 mmol/L Normal 3.5-5.1 [facility] Comment on above: Performed By: #### C MP #### [facility] [address] [place] [address] Dr. Mariann Odom Sodium [Moles/Vol] 142 mmol/L Normal 136-145 [facility] Comment on above: Performed By: #### C MP #### [facility] [address] [place] [address] Dr. Mariann Odom Urea nitrogen [Mass/Vol] 11.0 mg/dL Normal 7.0-18.0 [facility] Comment on above: Performed By: #### C MP #### [facility] [address] [place] [address] Dr. Mariann Odom Urea nitrogen/Creatinine [Mass ratio] 11.8 mg/mg Normal [facility] Comment on above: Performed By: #### C MP #### [facility] [address] [place] [address] Dr. Mariann Odom TSHon 09-13-2021 TSH 1.183 uIU/mL Normal 0.358-3.740 [facility] Comment on above: Performed By: #### C MP #### [facility] [address] [place] [address] Dr. Mariann Odom CBC AUTO DIFFon 08-24-2021 BASO # 0.1 103/ul Normal 0.0-0.1 [facility] Comment on above: Performed By: #### C BC #### [facility] [address] [place] [address] Dr. Mariann Odom Basophils/100 WBC (Bld) 1.0 % Normal 0.2-2.0 [facility] Comment on above: Performed By: #### C BC #### [facility] [address] [place] [address] Dr. Mariann Odom EO # 0.2 103/ul Normal 0.0-0.7 [facility] Comment on above: Performed By: #### C BC #### [facility] [address] [place] [address] Dr. Mariann Odom Eosinophils/100 WBC (Bld) 4.4 % Normal 0.9-7.0 [facility] Comment on above: Performed By: #### C BC #### [facility] [address] [place] [address] Dr. Mariann Odom Erythrocyte distribution width (RBC) [Ratio] 14.8 % Normal 11.0-15.0 [facility] Comment on above: Performed By: #### C BC #### [facility] [address] [place] [address] Dr. Mariann Odom Hematocrit (Bld) [Volume fraction] 41.1 % Critically low 42.0-54.0 [facility] Comment on above: Performed By: #### C BC #### [facility] [address] [place] [address] Dr. Mariann Odom Hemoglobin (Bld) [Mass/Vol] 13.1 g/dL Critically low 14.0-18.0 [facility] Comment on above: Performed By: #### C BC #### [facility] [address] [place] [address] Dr. Mariann Odom IG # 0.01 10e3/ul Normal 0.00-0.03 [facility] Comment on above: Performed By: #### C BC #### [facility] [address] [place] [address] Dr. Mariann Odom IG % 0.2 % Normal 0.0-0.5 [facility] Comment on above: Performed By: #### C BC #### [facility] [address] [place] [address] Dr. Mariann Odom LYMPH # 1.6 103/ul Normal 1.2-3.8 [facility] Comment on above: Performed By: #### C BC #### [facility] [address] [place] [address] Dr. Mariann Odom Lymphocytes/100 WBC (Bld) 30.9 % Normal 20.5-60.0 [facility] Comment on above: Performed By: #### C BC #### [facility] [address] [place] [address] Dr. Mariann Odom MANUAL DIFF REQ NO Normal [facility] Comment on above: Performed By: #### C BC #### [facility] [address] [place] [address] Dr. Mariann Odom MCH (RBC) [Entitic mass] 28.4 pg Normal 25.9-34.0 [facility] Comment on above: Performed By: #### C BC #### [facility] [address] [place] [address] Dr. Mariann Odom MCHC (RBC) [Mass/Vol] 31.9 g/dL Normal 29.9-35.2 [facility] Comment on above: Performed By: #### C BC #### [facility] [address] [place] [address] Dr. Mariann Odom MCV (RBC) [Entitic vol] 89.2 fL Normal 80.0-94.0 [facility] Comment on above: Performed By: #### C BC #### [facility] [address] [place] [address] Dr. Mariann Odom MONO # 0.5 103/ul Normal 0.3-0.8 [facility] Comment on above: Performed By: #### C BC #### [facility] [address] [place] [address] Dr. Mariann Odom Monocytes/100 WBC (Bld) 9.4 % Normal 1.7-12.0 [facility] Comment on above: Performed By: #### C BC #### [facility] [address] [place] [address] Dr. Mariann Odom NEUT # 2.7 103/ul Normal 1.4-6.5 [facility] Comment on above: Performed By: #### C BC #### [facility] [address] [place] [address] Dr. Mariann Odom Neutrophils/100 WBC (Bld) 54.1 % Normal 43.0-75.0 [facility] Comment on above: Performed By: #### C BC #### [facility] [address] [address] [address] Mariann Odom Platelet mean volume (Bld) [Entitic vol] 11.3 fL Normal 9.5-13.5 [facility] Comment on above: Performed By: #### C BC #### [facility] [address] [place] [address] Dr. Mariann Odom PLT 251 103/ul Normal 150-450 [facility] Comment on above: Performed By: #### C BC #### [facility] [address] [place] [address] Dr. Mariann Odom RBC 4.61 106/ul Critically low 4.70-6.10 [facility] Comment on above: Performed By: #### C BC #### [facility] [address] [place] [address] Dr. Mariann Odom WBC 5.0 103/ul Normal 4.0-11.0 [facility] Comment on above: Performed By: #### C BC #### [facility] [address] [place] [address] Dr. Mariann Odom PROF 14(COMP METB)on 022 Albumin [Mass/Vol] 3.7 g/dL Normal 3.4-5.0 [facility] Comment on above: Performed By: #### C MP #### [facility] [address] [place] [address] Dr. Mariann Odom Albumin/Globulin [Mass ratio] 1.0 {ratio} Normal [facility] Comment on above: Performed By: #### C MP #### [facility] [address] [place] [address] Dr. Mariann Odom ALP [Catalytic activity/Vol] 87 U/L Normal 46-116 [facility] Comment on above: Performed By: #### C MP #### [facility] [address] [place] [address] Dr. Mariann Odom ALT [Catalytic activity/Vol] 39 U/L Normal 16-63 [facility] Comment on above: Performed By: #### C MP #### [facility] [address] [address] [address] Mariann Odom Anion gap [Moles/Vol] 10.2 mmol/L Normal [facility] Comment on above: Performed By: #### C MP #### [facility] [address] [address] [address] Mariann Odom AST [Catalytic activity/Vol] 22 U/L Normal 15-37 [facility] Comment on above: Performed By: #### C MP #### [facility] [address] [address] [address] Mariann Odom Bilirubin [Mass/Vol] 0.3 mg/dL Normal 0.2-1.0 [facility] Comment on above: Performed By: #### C MP #### [facility] [address] [address] [address] Mariann Odom Calcium [Mass/Vol] 9.4 mg/dL Normal 8.5-10.1 [facility] Comment on above: Performed By: #### C MP #### [facility] [address] [address] [address] Mariann Odom Chloride [Moles/Vol] 105 mmol/L Normal 98-107 [facility] Comment on above: Performed By: #### C MP #### [facility] [address] [address] [address] Mariann Odom CO2 [Moles/Vol] 28.9 mmol/L Normal 21.0-32.0 [facility] Comment on above: Performed By: #### C MP #### [facility] [address] [address] [address] Mariann Odom Creatinine [Mass/Vol] 0.93 mg/dL Normal 0.70-1.30 [facility] Comment on above: Performed By: #### C MP #### [facility] [address] [address] [address] Mariann Odom EGFR-AF CENTRAL AFRICAN >60 Normal >=60 [facility] Comment on above: Performed By: #### C MP #### [facility] [address] [place] [address] Dr. Mariann Odom EGFR-NON AF CENTRAL AFRICAN >60 Normal >=60 [facility] Comment on above: Performed By: #### C MP #### [facility] [address] [address] [address] Mariann Odom Globulin (S) [Mass/Vol] 3.7 g/dL Normal [facility] Comment on above: Performed By: #### C MP #### [facility] [address] [address] [address] Mariann Odom Glucose [Mass/Vol] 253 mg/dL Critically high 74-106 [facility] Comment on above: Performed By: #### C MP #### [facility] [address] [place] [address] Dr. Mariann Odom Potassium [Moles/Vol] 4.1 mmol/L Normal 3.5-5.1 [facility] Comment on above: Performed By: #### C MP #### [facility] [address] [place] [address] Dr. Mariann Odom Protein [Mass/Vol] 7.4 g/dL Normal 6.4-8.2 [facility] Comment on above: Performed By: #### C MP #### [facility] [address] [place] [address] Dr. Mariann Odom Sodium [Moles/Vol] 140 mmol/L Normal 136-145 [facility] Comment on above: Performed By: #### C MP #### [facility] [address] [place] [address] Dr. Mariann Odom Urea nitrogen [Mass/Vol] 15.0 mg/dL Normal 7.0-18.0 [facility] Comment on above: Performed By: #### C MP #### [facility] [address] [place] [address] Dr. Mariann Odom Urea nitrogen/Creatinine [Mass ratio] 16.1 mg/mg Normal [facility] Comment on above: Performed By: #### C MP #### [facility] [address] [place] [address] Dr. Mariann Odom SED RATE [facility] 2021 SED RATE 15 mm/hr Normal <=20 [facility] Comment on above: Performed By: #### C MP #### [facility] [address] [place] [address] Dr. Mariann Odom Vital Signs Date Time Vital Sign Value Performing Clinician Facility 07-16-2024 09:15-0400 Body height 177.8 cm Major Stevens MD Work Phone: [facility] 07-16-2024 09:15-0400 Body mass index (BMI) [Ratio] 29.84 kg/m2 Major Stevens MD Work Phone: [facility] 07-16-2024 09:15-0400 Body temperature 97.5 [degF] Major Stevens MD Work Phone: [facility] 07-16-2024 09:15-0400 Body weight 94.35 kg Major Stevens MD Work Phone: [facility] 07-16-2024 09:15-0400 Diastolic blood pressure 72 mm[Hg] Major Stevens MD Work Phone: [facility] 07-16-2024 09:15-0400 Heart rate 69 /min Major Stevens MD Work Phone: [facility] 07-16-2024 09:15-0400 Respiratory rate 18 /min Major Stevens MD Work Phone: [facility] 07-16-2024 09:15-0400 SaO2% (BldA) [Mass fraction] 97 % Major Stevens MD Work Phone: [facility] 07-16-2024 09:15-0400 Systolic blood pressure 150 mm[Hg] Major Stevens MD Work Phone: [facility] 05-27-2024 10:45-0500 Body mass index (BMI) [Ratio] 29.27 kg/m2 Isha Valentino MD Work Phone: [facility] 05-27-2024 10:45-0500 Body temperature 96.3 [degF] Isha Valentino MD Work Phone: [facility] 05-27-2024 10:45-0500 Body weight 92.53 kg Isha Valentino MD Work Phone: [facility] 05-27-2024 10:45-0500 Diastolic blood pressure 94 mm[Hg] Isha Valentino MD Work Phone: [facility] 05-27-2024 10:45-0500 Heart rate 66 /min Isha Valentino MD Work Phone: [facility] 05-27-2024 10:45-0500 Respiratory rate 20 /min Isha Valentino MD Work Phone: [facility] 05-27-2024 10:45-0500 Systolic blood pressure 193 mm[Hg] Isha Valentino MD Work Phone: [facility] 01-15-2024 09:01-0400 Body mass index (BMI) [Ratio] 29.62 kg/m2 Major Stevens MD Work Phone: [facility] 01-15-2024 09:01-0400 Body temperature 97.3 [degF] Major Stevens MD Work Phone: [facility] 01-15-2024 09:01-0400 Body weight 93.62 kg Major Stevens MD Work Phone: [facility] 01-15-2024 09:01-0400 Diastolic blood pressure 82 mm[Hg] Major Stevens MD Work Phone: [facility] 01-15-2024 09:01-0400 Heart rate 62 /min Major Stevens MD Work Phone: [facility] 01-15-2024 09:01-0400 SaO2% (BldA) [Mass fraction] 98 % Major Stevens MD Work Phone: [facility] 01-15-2024 09:01-0400 Systolic blood pressure 142 mm[Hg] Major Stevens MD Work Phone: [facility] 08-14-2023 14:31-0400 Body height 177.8 cm Isha Valentino MD Work Phone: [facility] 08-14-2023 14:31-0400 Body mass index (BMI) [Ratio] 30.13 kg/m2 Isha Valentino MD Work Phone: [facility] 08-14-2023 14:31-0400 Body temperature 96.4 [degF] Isha Valentino MD Work Phone: [facility] 08-14-2023 14:31-0400 Body weight 95.25 kg Isha Valentino MD Work Phone: [facility] 08-14-2023 14:31-0400 Diastolic blood pressure 92 mm[Hg] Isha Valentino MD Work Phone: [facility] 08-14-2023 14:31-0400 Heart rate 69 /min Isha Valentino MD Work Phone: [facility] 08-14-2023 14:31-0400 Respiratory rate 18 /min Isha Valentino MD Work Phone: [facility] 08-14-2023 14:31-0400 Systolic blood pressure 160 mm[Hg] Isha Valentino MD Work Phone: [facility] 06-06-2023 16:00-0400 Body temperature 96.4 [degF] Isha Valentino MD Work Phone: [facility] 06-06-2023 16:00-0400 Diastolic blood pressure 100 mm[Hg] Isha Valentino MD Work Phone: [facility] 06-06-2023 16:00-0400 Heart rate 96 /min Isha Valentino MD Work Phone: [facility] 06-06-2023 16:00-0400 Respiratory rate 18 /min Isha Valentino MD Work Phone: [facility] 06-06-2023 16:00-0400 SaO2% (BldA) [Mass fraction] 98 % Isha Valentino MD Work Phone: [facility] 06-06-2023 16:00-0400 Systolic blood pressure 159 mm[Hg] Isha Valentino MD Work Phone: [facility] 06-01-2023 13:33-0500 Body temperature 37.0 Isha Valentino MD Work Phone: [facility] 06-01-2023 13:33-0500 SaO2% (BldA) [Mass fraction] 100 % Isha Valentino MD Work Phone: [facility] 06-01-2023 13:19-0500 Body temperature 37.0 degrees Celsius [facility] Comment on above: Performed By: #### [id number] #### PACHECO Ferraro ([id number]) [facility] ([facility]) [address] [place] [address] 06-01-2023 13:19-0500 SaO2% (BldA) [Mass fraction] 100 % [facility] Comment on above: Performed By: #### [id number] #### PACHECO Ferraro ([id number]) [facility] ([facility]) [address] [place] [address] 06-01-2023 12:51-0500 Body temperature 37.0 Isha Valentino MD Work Phone: [facility] 06-01-2023 12:51-0500 SaO2% (BldA) [Mass fraction] 100 % Isha Valentino MD Work Phone: [facility] 06-01-2023 12:36-0500 Body temperature 37.0 degrees Celsius [facility] Comment on above: Performed By: #### [id number] #### PACHECO Ferraro ([id number]) [facility] ([facility]) [address] [place] [address] 06-01-2023 12:36-0500 SaO2% (BldA) [Mass fraction] 100 % [facility] Comment on above: Performed By: #### [id number] #### PACHECO Ferraro ([id number]) [facility] ([facility]) [address] [place] [address] 06-01-2023 11:09-0500 Body temperature 37.0 Isha Valentino MD Work Phone: [facility] 06-01-2023 11:09-0500 SaO2% (BldA) [Mass fraction] 100 % Isha Valentino MD Work Phone: [facility] 06-01-2023 10:49-0500 Body temperature 37.0 degrees Celsius [facility] Comment on above: Performed By: #### [id number] #### PACHECO Ferraro ([id number]) [facility] ([facility]) [address] [place] [address] 06-01-2023 10:49-0500 SaO2% (BldA) [Mass fraction] 100 % [facility] Comment on above: Performed By: #### [id number] #### PACHECO Ferraro ([id number]) [facility] ([facility]) [address] [place] [address] 06-01-2023 09:27-0500 Body temperature 37.0 Isha Valentino MD Work Phone: [facility] 06-01-2023 09:27-0500 SaO2% (BldA) [Mass fraction] 100 % Isha Valentino MD Work Phone: [facility] 06-01-2023 09:00-0500 Body temperature 37.0 degrees Celsius [facility] Comment on above: Performed By: #### [id number] #### PACHECO Ferraro ([id number]) [facility] ([facility]) [address] [place], [place] [id number] 06-01-2023 09:00-0500 SaO2% (BldA) [Mass fraction] 100 % [facility] Comment on above: Performed By: #### [id number] #### PACHECO Ferraro ([id number]) [facility] ([facility]) [address] [place] [address] 06-01-2023 05:53-0500 Body height 177.8 cm Isha Valentino MD Work Phone: [facility] 06-01-2023 05:53-0500 Body mass index (BMI) [Ratio] 30.18 kg/m2 Isha Valentino MD Work Phone: [facility] 06-01-2023 05:53-0500 Body weight 95.4 kg Isha Valentino MD Work Phone: [facility] 03-28-2023 10:40-0500 Body height 180.34 cm Natty Cat Other [facility] Other 03-28-2023 10:40-0500 Body mass index (BMI) [Ratio] 30.26 kg/m2 Natty Cat Other [employer] Other 03-28-2023 10:40-0500 Body weight 98.43 kg Natty Cat Other [employer] Other 02-19-2023 09:45-0500 Body height 180.34 cm Abel Sandoval Other [employer] Other 02-19-2023 09:45-0500 Body mass index (BMI) [Ratio] 30.12 kg/m2 Abel Sandoval Other [employer] Other 02-19-2023 09:45-0500 Body weight 97.98 kg Abel Sandoval Other [employer] Other 02-19-2023 09:45-0500 Diastolic blood pressure 80 mm[Hg] Abel Sandoval Other [employer] Other 02-19-2023 09:45-0500 SaO2% (BldA) [Mass fraction] 99 % Abel Sandoval Other [employer] Other 02-19-2023 09:45-0500 Systolic blood pressure 130 mm[Hg] Abel Sandoval Other [employer] Other 02-07-2023 10:35-0500 Diastolic blood pressure 81 mm[Hg] MD Major Stevens Work Phone: [facility] 02-07-2023 10:35-0500 Heart rate 65 /min MD Major Stevens Work Phone: [facility] 02-07-2023 10:35-0500 Respiratory rate 16 /min MD Major Stevens Work Phone: [facility] 02-07-2023 10:35-0500 SaO2% (BldA) [Mass fraction] 97 % MD Major Stevens Work Phone: [facility] 02-07-2023 10:35-0500 Systolic blood pressure 146 mm[Hg] MD Major Stevens Work Phone: [facility] 02-07-2023 09:57-0500 Inhaled oxygen flow rate 3 L/min MD Major Stevens Work Phone: [facility] 02-07-2023 08:54-0500 Body height 177.8 cm MD Major Stevens Work Phone: [facility] 02-07-2023 08:54-0500 Body weight 97.52 kg MD Major Stevens Work Phone: [facility] 01-17-2023 11:33-0400 Diastolic blood pressure 92 mm[Hg] MD aMjor Stevens Work Phone: [facility] 01-17-2023 11:33-0400 Heart rate 70 /min MD Major Stevens Work Phone: [facility] 01-17-2023 11:33-0400 Respiratory rate 16 /min MD Major Stevens Work Phone: [facility] 01-17-2023 11:33-0400 SaO2% (BldA) [Mass fraction] 98 % MD Major Stevens Work Phone: [facility] 01-17-2023 11:33-0400 Systolic blood pressure 171 mm[Hg] MD Major Stevens Work Phone: [facility] 01-17-2023 11:05-0400 Inhaled oxygen flow rate 3 L/min MD Major Stevens Work Phone: [facility] 01-17-2023 10:40-0400 Body height 177.8 cm MD Major Stevens Work Phone: [facility] 01-17-2023 10:40-0400 Body weight 97.52 kg MD Major Stevens Work Phone: [facility] 12-26-2022 08:30-0400 Body height 180.34 cm Abel Sandoval Other [employer] Other 12-26-2022 08:30-0400 Body mass index (BMI) [Ratio] 30.12 kg/m2 Abel Sandoval Other [employer] Other 12-26-2022 08:30-0400 Body weight 97.98 kg Abel Sandoval Other [employer] Other 12-26-2022 08:30-0400 Diastolic blood pressure 86 mm[Hg] Abel Sandoval Other [employer] Other 12-26-2022 08:30-0400 SaO2% (BldA) [Mass fraction] 98 % Abel Sandoval Other [employer] Other 12-26-2022 08:30-0400 Systolic blood pressure 148 mm[Hg] Abel Sandoval Other [employer] Other Encounters Encounter Date Encounter Type Care Provider Facility Start: 07-16-2024 End: 07-16-2024 Bamboo flowsheet Major Stevens MD Work Phone: [facility] Start: 07-16-2024 End: 07-16-2024 Bamboo flowsheet Major Stevens MD Work Phone: [facility] Start: 07-16-2024 End: 07-16-2024 Clinisync Result Encounter Major Stevens MD Work Phone: [facility] Unsolicited Start: 07-16-2024 End: 07-16-2024 Office outpatient visit 25 minutes Major Stevens MD Work Phone: [facility] Comment on above: Type 2 diabetes corin itus with hyperglycemia, without long-term current use of insulin (CMS/HCC) (Primary Dx); Essential hypertension (CMS/HCC); Lumbar spondylosis; Arthropathic psoriasis, unspecified (CMS/HCC) Start: 07-16-2024 End: 07-16-2024 ambulatory MAJOR STEVENS Not Available Start: 06-25-2024 End: 06-25-2024 Clinisync Result Encounter Generic External Data Provider [facility] Unsolicited Start: 06-25-2024 End: 06-25-2024 Clinisync Result Encounter Generic External Data Provider [facility] Unsolicited Start: 05-27-2024 End: 05-28-2024 Clinisync Result Encounter Generic External Data Provider [facility] Unsolicited Start: 05-27-2024 End: 05-28-2024 Clinisync Result Encounter Generic External Data Provider [facility] Unsolicited Start: 05-27-2024 End: 05-27-2024 Office outpatient visit 25 minutes Isha Valentino MD Work Phone: [facility] Tasha Hamlin Comment on above: S/P spinal surgery ( Primary Dx) Start: 05-27-2024 End: 05-27-2024 Subsequent hospital visit by physician Rufina Retana X-Ray 4 [facility] Comment on above: S/P lumbar spinal fu yvette; Scoliosis of thoracolumbar region due to degenerative disease of spine in adult Start: 05-27-2024 End: 05-27-2024 ambulatory [facility] Start: 02-19-2024 End: 02-19-2024 Clinisync Result Encounter Generic External Data Provider [facility] Unsolicited Start: 02-19-2024 End: 02-19-2024 Clinisync Result Encounter Generic External Data Provider [facility] Unsolicited Start: 01-15-2024 End: 01-15-2024 Bamboo flowsheet Major [...] hyperglycemia, without long-term current use of insulin ([facility]); Essential hypertension ([facility]) Start: 01-15-2024 End: 01-15-2024 ambulatory MAJOR PACHECOGEOR Not Available Start: 11-14-2023 End: 11-14-2023 Clinisync Result Encounter Generic External Data Provider [facility] Unsolicited Start: 11-14-2023 End: 11-14-2023 Clinisync Result Encounter Generic External Data Provider [facility] Unsolicited Start: 10-17-2023 End: 10-17-2023 ambulatory MAJOR CHENR Not Available Start: 08-23-2023 End: 08-23-2023 ambulatory IVETTE MONTANO Not Available Start: 08-21-2023 End: 08-21-2023 ambulatory BRITNEY BRINK Not Available Start: 08-16-2023 End: 08-16-2023 ambulatory BRITNEY BRINK Not Available Start: 08-14-2023 End: 08-14-2023 Postop follow up visit related to original px Isha Valenitno MD Work Phone: [facility] Comment on above: Postoperative follow -up (Primary Dx) Start: 08-14-2023 End: 08-14-2023 Subsequent hospital visit by physician Rufina Retana X-Ray 4 [facility] Comment on above: S/P lumbar spinal fu yvette; Scoliosis of thoracolumbar region due to degenerative disease of spine in adult Start: 08-14-2023 End: 08-14-2023 ambulatory ISHA VALENTINO [facility] Start: 08-13-2023 End: 08-13-2023 ambulatory IVETTE MONTANO Not Available Start: 08-09-2023 End: 08-09-2023 ambulatory BRITNEY BRINK Not Available Start: 08-06-2023 End: 08-06-2023 ambulatory IVETTE MONTANO Not Available Start: 08-02-2023 End: 08-02-2023 ambulatory BRITNEY BRINK Not Available Start: 07-30-2023 End: 07-30-2023 ambulatory BRITNEY BRINK Not Available Start: 07-26-2023 End: 07-26-2023 ambulatory IVETTE MONTANO Not Available Start: 07-10-2023 End: 07-10-2023 Subsequent hospital visit by physician Rufina Retana X-Ray 4 [facility] Comment on above: Status post spinal s urgery Start: 07-10-2023 End: 07-10-2023 ambulatory [facility] Start: 06-11-2023 ambulatory NONE PHYSICIAN Facility :R Start: 06-01-2023 End: 06-06-2023 Evaluation and management of inpatient Isha Valentino MD Work Phone: [facility] [place] 4 Comment on above: Lumbar radiculopathy , right (Primary Dx); Spinal stenosis of lumbar region with neurogenic claudication; Sagittal plane imbalance; Scoliosis of thoracolumbar region due to degenerative disease of spine in adult; Lumbar foraminal stenosis; Lumbar radiculopathy, acute; Lumbar stenosis with neurogenic claudication; Postoperative pain; Constipation due to pain medication; Psoriatic arthritis ([facility]) Start: 05-17-2023 End: 05-18-2023 ambulatory [facility] Start: 05-17-2023 End: 05-17-2023 ambulatory [facility] Start: 05-17-2023 End: 05-17-2023 Encounter for other preprocedural examination ISHA [facility] Start: 05-17-2023 End: 05-17-2023 Patient encounter status [facility] Work Phone: Start: 05-17-2023 End: 05-17-[address] [facility] Work Phone: Start: 05-17-2023 End: 05-17-2023 Subsequent hospital visit by physician [facility] [id number] Cr Nonv1 Holter/Ecg Resource [facility] Comment on above: Surgery, elective; Preop testing; Preoperative general physical examination Start: 04-24-2023 End: 04-24-2023 ambulatory [facility] Start: 04-24-2023 End: 04-24-2023 Subsequent hospital visit by physician Rufina Retana X-Ray 4 [facility] Comment on above: Spinal stenosis of l umbar region with neurogenic claudication Start: 04-12-2023 Orders Only Dino kingsley MD Work Phone: [facility] Start: 03-29-2023 End: 03-29-2023 ambulatory Natty Cat Other [employer] Other Start: 03-29-2023 Telephone encounter Natty Cat [facility] Start: 03-28-2023 End: 03-28-2023 ambulatory Nattybrandy Cat Other [employer] Other Start: 03-28-2023 Office outpatient vi sit 25 minutes Natty Cat [facility] Start: 02-19-2023 End: 02-19-2023 ambulatory Abel Sandoval Other [employer] Other Start: 02-19-2023 Office outpatient vi sit 25 minutes Abel Lori [facility] Start: 02-07-2023 (PROC) PROCEDURE [facility] Start: 02-07-2023 End: 02-07-2023 ambulatory Abel Sandoval Facility:[facility] Start: 02-07-2023 End: 02-07-2023 Admission to same day surgery center MD Major Stevens Work Phone: [facility] Work Phone: Start: 02-07-2023 End: 02-07-2023 ambulatory MD Major Stevens Work Phone: [facility] Work Phone: Start: 01-17-2023 (PROC) PROCEDURE Abel Martinez nds [facility] Start: 01-17-2023 End: 01-17-2023 ambulatory Abel Sandoval Facility:[facility] Start: 01-17-2023 End: 01-17-2023 Admission to same day surgery center MD Major Stevens Work Phone: [facility] Work Phone: Start: 01-17-2023 End: 01-17-2023 ambulatory MD Major Stevens Work Phone: [facility] Work Phone: Start: 12-26-2022 End: 12-26-2022 ambulatory Abeldahiana Sandoval Other [employer] Other Start: 12-26-2022 Office outpatient vi sit 25 minutes Abel Sandoval [facility] Start: 12-15-2022 End: 12-15-2022 ambulatory Sully Barney Facility:[facility] Start: 12-15-2022 End: 12-15-2022 Patient encounter procedure MD Major Stevens Work Phone: [facility] [address] Work Phone: Start: 10-25-2022 End: 10-25-2022 ambulatory Abel Sandoval Other [employer] Other Start: 10-25-2022 Telephone encounter Abel Lori [facility] Start: 10-16-2022 End: 10-16-2022 ambulatory Abel Jose Lori Facility:[facility] Start: 07-19-2022 End: 07-20-[address] TONIA PADILLA Facility:[facility] Start: 04-11-2022 End: 04-12-[address] TONIA PADILLA Facility:[facility] Start: 04-03-2022 End: 04-04-[address] MAJOR STEVENS Facility:[facility] Start: 01-03-2022 End: 01-04-[address] TONIA PADILLA Facility:[facility] Start: 09-15-2021 Encounter for genera l adult medical examination without abnormal findings DR MAJOR STEVENS [facility] Start: 09-13-2021 End: 09-14-[address] MAJOR STEVENS Facility:[facility] Start: 09-13-2021 End: 09-14-2021 Encounter for general adult medical examination without abnormal findings DR MAJOR STEVENS Facility:[facility] Start: 08-24-2021 End: 08-25-[address] TONIA PADILLA Facility:[facility] Procedures Date Procedure Procedure Detail Performing Clinician Start: 07-16-2024 MLR HEMOGLOBIN A1C Major Stevens MD Work Phone: Start: 06-25-2024 ALL CBC WITH AUTO DIFF Generic External Data Provider Start: 05-27-2024 XR SCOLIOSIS SERIES 2 TO 3 VIEWS Generic External Data Provider Start: 02-19-2024 ALL CBC WITH AUTO DIFF Generic External Data Provider Start: 02-19-2024 ALL SED RATE Generic Ex ternal Data Provider Start: 02-19-2024 [facility] CMP (CMP) (FOR [facility] USE) Generic External Data Provider Start: 11-14-2023 ALL CBC WITH AUTO DIFF Generic External Data Provider Start: 07-10-2023 XR SCOLIOSIS 2 VIEW (NON EOS) ISHA VALENTINO Start: 06-06-2023 DISCHARGE PATIENT JESENIA VALENTINO Start: 06-06-2023 ACTIVITY ISHA ENRIQUEZ Start: 06-06-2023 [...] Phone: Start: 06-06-2023 TRANSFER PATIENT TO [facility] ISHA VALENTINO Start: 06-06-2023 CBC panel - Blood by Automated count ISHA VALENTINO Start: 06-06-2023 RENAL FUNCTION PANEL ARIADNE VALENTINO Start: 06-06-2023 Glucose [Mass/volume ] in Serum or Plasma ISHA VALENTINO Start: 06-06-2023 End: 06-06-2023 Renal function panel Renetta Ferraro Lisette [employer] Work Phone: Start: 06-05-2023 Glucose [Mass/volume ] [...] in Serum or Plasma ISHAMARVIN VALENTINO Start: 06-02-2023 RENAL FUNCTION PANEL ARIADNE VALENTINO Start: 06-02-2023 Renal function panel Se nic Johnson MD Work Phone: Start: 06-01-2023 FULL CODE ISHA ENRIQUEZ Start: 06-01-2023 CBC panel - Blood by Automated count ISHAMARVIN DYSONMICHAEL Start: 06-01-2023 FIBRINOGEN ISHAMARVIN DYSON [facility] Start: 06-01-2023 Magnesium [Mass/volu me] in Serum or Plasma ISHAMARVIN DYSONMICHAEL Start: 06-01-2023 PULSE OXIMETRY, CONTINUOUS ISHAMARVIN DYSONMICHAEL Start: 06-01-2023 ADMIT TO INPATIENT [facility] KARISMICHAEL Start: 06-01-2023 Glucose [Mass/volume ] in Serum or Plasma ISHAMARVIN DYSONMICHAEL Start: 06-01-2023 End: 06-01-2023 Assay of magnesium Terrell Johnson MD Work Phone: Start: 06-01-2023 FL FLUORO IMAGES NO CHARGE ISHAMARVIN VALENTINO Start: 06-01-2023 PULSE OXIMETRY, CONTINUOUS Kal Bacon MD Work Phone: Start: 06-01-2023 Glucose quantitative blood xcpt reagent strip Isha Valentino MD Work Phone: Start: 06-01-2023 End: 06-01-2023 XR tomography Unspecified body region Terrell Johnson MD Work Phone: Start: 06-01-2023 End: 06-01-2023 Chloride bld Carol T O'Shalonda CA A Work Phone: Start: 06-01-2023 PREPARE RBC ISHAMARVIN ENRIQUEZ Start: 06-01-2023 VERAB/VERIFY ABORH [facility] KARISMICHAEL Start: 06-01-2023 BLOOD GAS ARTERIAL F ULL PANEL ISHAMARVIN VALENTINO Start: 06-01-2023 Chloride bld Carol T O'Shalonda CAA Work Phone: Start: 06-01-2023 PREPARE RBC Carol T O'Shalonda CAA Work Phone: Start: 06-01-2023 IOM ISHA ENRIQUEZ Start: 06-01-2023 VERAB/VERIFY ABORH Marzena een Pooja Dubois Work Phone: Start: 06-01-2023 Glucose [Mass/volume ] in Serum or Plasma ISHA SINMICHAEL Start: 06-01-2023 End: 06-01-2023 Arthdsis post/posterolatrl/postinter body lumbar Isha Valentino MD Work Phone: Start: 06-01-2023 Glucose quantitative blood xcpt reagent strip Isha Valentino MD Work Phone: Start: 05-18-2023 ECG 12-LEAD ISHA ENRIQUEZ Start: 05-18-2023 Ecg routine ecg w/le ast 12 lds trcg only w/o i&r Lama Ewelina COPELAND Work Phone: Start: 05-17-2023 Basic metabolic 2000 panel - Serum or Plasma ISHAMARVIN VALENTINO Start: 05-17-2023 CBC panel - Blood by Automated count ISHA VALENTINO Start: 05-17-2023 TYPE AND SCREEN ISHAMARVIN DYSONMICHAEL Start: 05-17-2023 STAPHYLOCOCCUS AUREU S/MRSA COLONIZATION, CULTURE ISHAMARVIN DYSONMICHAEL Start: 05-17-2023 REQUEST FOR PRE-ADMI SSION TESTING VISIT ISHAMARVIN VALENTINO Start: 04-24-2023 Hemoglobin A1c/Hemoglobin.total in Blood ISHAMARVIN VALENTINO Start: 02-07-2023 Local anesthetic sac ral epidural block MD Major Stevens Work Phone: Start: 01-17-2023 Injection of local anesthetic into sacroiliac joint MD Major Stevens Work Phone: Start: 12-15-2022 MR lumbar spine wo con MD Major Stevens Work Phone: Start: 09-13-[address] JOSHUA PADILLA Comment on above: Performed By: #### A 1C #### [facility] [address] [place] [address] Dr. Mariann Odom Start: 10-02-2014 Colonoscopy Generic Pr ovider Plan of Treatment Date Care Activity Detail Author Start: 01-16-2025 End: 01-16-2025 Patient encounter procedure 01/16/2025 9:00 AM EDT Office Visit [facility] [address] [place] [address] Major Stevens MD [address] [place] [id number] [facility] Start: 11-24-2024 Influenza vaccination Influenz a Vaccine (Season Ended) [facility] Start: 10-17-2024 Urine screening for protein Diabetes: Urine Protein Screening [facility] Start: 10-02-2024 Screening for malign ant neoplasm of colon [facility] Start: 07-16-2024 End: 07-16-2025 Hemoglobin A1c/Hemoglobin.total in Blood Hemoglobin A1c Lab Routine Type 2 diabetes mellitus with hyperglycemia, without long-term current use of insulin ([facility]) Expected: 07/16/2024 (Approximate), Expires: 07/16/2025 [facility] Work Phone: Comment on above: Expected: 07/16/2024 (Approximate), Expires: 07/16/2025 Start: 07-16-2024 End: 07-16-2024 Patient encounter procedure [facility] Comment on above: Arrived Start: 07-13-2024 Glaucoma screening Diabetes: R etinopathy Screening [facility] Start: 04-19-2024 Hemoglobin A1c measurement Diabetes: Hemoglobin A1C [facility] Start: 01-15-2024 End: 01-15-2024 Patient encounter procedure [facility] Comment on above: Arrived Start: 11-25-2023 Influenza vaccination [facility] Start: 10-11-2023 Urine screening for protein Diabetes: Urine Protein Screening [facility] Start: 07-24-2023 Hemoglobin A1c measurement Diabetes: Hemoglobin A1C [facility] Start: 07-10-2023 End: 07-10-2023 Patient encounter procedure 07/10/2023 11:40 AM EDT Office Visit [facility] [address] [address] [place] [address] [address] [place] [address] [facility] Start: 06-13-2023 End: 06-13-2023 Clinical Support 06/13/2023 10:45 AM EDT Clinical Support [facility] [address] [address] [facility] [address] [place] [address] [facility] Start: 06-01-2023 End: 06-01-2023 Admission to same day surgery center 06/01/2023 7:15 AM EST - 06/01/2023 12:55 PM EST Surgery [facility] [place] [address] [address] [place] [address] [place] [address] [address] Department [place] [address] L4-5 and L5-S1 transforaminal lumbar interbody fusion with placement of interbody cage with decompression L3-4 posterior column osteotomy with L2-3 laminectomy and facetectomy and L2-S1 instrumented fusion using local bone autograft and BMP with pelvic fixation. [32600 (CPT )] [facility] [place] Comment on above: L4-5 and L5-S1 trans foraminal lumbar interbody fusion with placement of interbody cage with decompression L3-4 posterior column osteotomy with L2-3 laminectomy and facetectomy and L2-S1 instrumented fusion using local bone autograft and BMP with pelvic fixation. [72832 (CPT )] Start: 06-01-2023 End: 06-01-2023 Arthdsis [...] physician 06/01/2023 5:45 AM EST Hospital Encounter [place] [address] [place] [address] [place] [address] [address] Department [place] [address] [facility] [place] Start: 04-17-2023 End: 04-17-2023 Patient encounter procedure 04/17/2023 9:00 AM EST Office Visit [facility] [address] [phone] Dino Villa MD [address] [place] [address] [facility] Start: 04-12-2023 End: 04-12-2024 DOWNLOAD [facility] DOWNLOAD [facility] Routine Back pain, unspecified back location, unspecified back pain laterality, unspecified chronicity Expected: 04/12/2023, Expires: 04/12/2024 [facility] [email or web address] [facility] Work Phone: Comment on above: Expected: 04/12/2023 , Expires: 04/12/2024 Start: 02-07-2023 [facility] Start: 01-17-2023 [facility] Start: 11-24-2022 COVID-19 Vaccine (2022- season) COVID-19 Vaccine (2022- season) [facility] Start: 11-24-2022 Influenza vaccination Influenza Vacc ine (#1) [facility] Start: 2022 RSV High Risk: (Elde rly (60+) or Population) (1 - Risk 60-74 years 1-dose series) RSV High Risk: (Elderly (60+) or Population) (1 - Risk 60-74 years 1-dose series) [facility] Start: 2022 RSV patient s and/or patients aged 60+ years (1 - 1-dose 60+ series) RSV patients and/or patients aged 60+ years (1 - 1-dose 60+ series) [facility] Start: 2022 RSV vaccine (optiona l 60+ years) RSV vaccine (optional 60+ years) [facility] Start: 09-30-2020 COVID-19 Vaccine (2 - Bev risk series) COVID-19 Vaccine (2 - Bev risk series) [facility] Start: 2012 Shingles (RZV) Vacci ne (1 of 2) Shingles (RZV) Vaccine (1 of 2) [facility] Start: 2012 Zoster Vaccines (1 of 2) Zoster Vacc mary (1 of 2) [facility] Start: 2007 Screening for malign ant neoplasm [facility] Start: 1997 Lipid panel Cholesterol [facility] Start: 1984 DTaP/Tdap/Td Vaccine s (1 - Tdap) DTaP/Tdap/Td Vaccines (1 - Tdap) [facility] Start: 1981 Pneumococcal vaccination Pneum ococcal Vaccine (1 of 2 - PCV) [facility] Start: 1981 Urine screening for protein Diabetes: Urine Protein Screening [facility] [facility] Start: 1981 Zoster Vaccines (1 of 2) Zoster Vacc mary (1 of 2) [facility] Start: 1980 Hepatitis C screening [facility] Start: 1980 Tetanus + diphtheria + acellular pertussis vaccine (product) Tdap Booster [facility] Start: 1977 HIV screening HIV Test [facility] Start: 1972 Diabetic foot examination Diabetes: Foot Exam [facility] Start: 1972 Glaucoma screening Diabetes: R etinopathy Screening [facility] Start: 1968 Pneumococcal Vaccine : Pediatrics (0 to 5 Years) and At-Risk Patients (6 to 64 Years) (1 - PCV) Pneumococcal Vaccine: Pediatrics (0 to 5 Years) and At-Risk Patients (6 to 64 Years) (1 - PCV) [facility] Start: 1968 Pneumococcal Vaccine : Pediatrics (0 to 5 Years) and At-Risk Patients (6 to 64 Years) (1 of 2 - PCV) Pneumococcal Vaccine: Pediatrics (0 to 5 Years) and At-Risk Patients (6 to 64 Years) (1 of 2 - PCV) [facility] Start: 1963 MMR Vaccines (1 of 1 - Standard series) MMR Vaccines (1 of 1 - Standard series) [facility] Start: 1962 HIV screening HIV Screening [facility] Start: 1962 Lipid panel Lipid Panel [facility] Start: 1962 Screening for malign ant neoplasm of colon [facility] Start: 1962 Urine screening for protein Diabetes: Urine Protein Screening [facility] Start: 1962 Yearly Adult Physical Yearly Adult P hysical [facility] Arthdsis post/posterolatrl/postin terbody lumbar Fusion Spine Transforaminal Interbody Lumbar with Navigation Spinal stenosis of lumbar region with neurogenic claudication Sagittal plane imbalance Scoliosis of thoracolumbar region due to degenerative disease of spine in adult Lumbar foraminal stenosis Lumbar radiculopathy, acute Lumbar stenosis with neurogenic claudication [facility] Work Phone: End: 06-01-2023 Glucose [Mass/volume] in Serum or Plasma [facility] Service Area Work Phone: Comment on above: Once (Lab) for 1 Occ urrences starting 06/01/2023 until 06/01/2023 As needed (Lab) unti l discontinued starting 06/01/2023 End: 06-01-2023 Incentive spirometry Instruct Incentive spirometry Instruct Respiratory Care Routine Once for 1 Occurrences starting 06/01/2023 until 06/01/2023 [facility] Work Phone: Comment on above: Once for 1 Occurrenc es starting 06/01/2023 until 06/01/2023 End: 06-01-2023 Interoperative monitoring - IOM Interoperative monitoring - IOM Neurology Routine Once for 1 Occurrences starting 06/01/2023 until 06/01/2023 [facility] Work Phone: Comment on above: Once for 1 Occurrenc es starting 06/01/2023 until 06/01/2023 Patient Education Lori Non Diagn ostic Block [facility] Work Phone: Patient referral [facility] Work Phone: End: 06-01-2023 Pulse oximetry, continuous Pulse oximetry, continuous Respiratory Care Routine Continuous until discontinued starting 06/01/2023 [facility] Service Area Work Phone: Comment on above: Continuous until dis continued starting 06/01/2023 End: 06-02-2023 Pulse oximetry, continuous Pulse oximetry, continuous Respiratory Care Routine Continuous until discontinued starting 06/02/2023 [facility] Work Phone: Comment on above: Continuous until dis continued starting 06/02/2023 End: 06-07-2023 Renal function 2000 panel - Serum or Plasma Renal function panel Lab Routine Morning draw (Lab) for 1 Occurrences starting 06/07/2023 until 06/07/2023 [facility] Work Phone: Comment on above: Morning draw (Lab) f or 1 Occurrences starting 06/07/2023 until 06/07/2023 End: 06-02-2023 Urethral Catheter Removal Urethral Catheter Removal Procedures Routine Once for 1 Occurrences starting 06/02/2023 until 06/02/2023 [facility] Work Phone: Comment on above: Once for 1 Occurrenc es starting 06/02/2023 until 06/02/2023 End: 04-24-2023 X-ray scoliosis 2 View (NON EOS) [facility] Service Area Work Phone: Comment on above: Once for 1 Occurrenc es starting 04/24/2023 until 04/24/2023 End: 07-10-2023 X-ray scoliosis 2 View (NON EOS) [facility] Service Area Work Phone: Comment on above: Once for 1 Occurrenc es starting 07/10/2023 until 07/10/2023 End: 08-14-2023 X-ray scoliosis 2 View (NON EOS) [facility] Service Area Work Phone: Comment on above: Once for 1 Occurrenc es starting 08/14/2023 until 08/14/2023 End: 05-27-2024 XR Skull to Coccyx 2 or 3 Views [facility] Service Area Work Phone: Comment on above: Once for 1 Occurrenc es starting 05/27/2024 until 05/27/2024 Immunizations Immunization Date Immunization Notes Care Provider Lisandra cardoso 01-19-2016 influenza, injectable,quadrivalen t, preservative free, pediatric Abel Lori Other [employer] Other 01-19-2016 influenza virus vaccine, unspecified formulation [address] Work Phone: 01-06-2015 influenza, injectable,quadrivalen t, preservative free, pediatric Abel Sandoval Other [employer] Other Payers Date Payer Category Payer Managed Care (Private) [place] [id number] 2022 Self-pay [id number] 1989 Private Health Insurance [id number]. [id number] 1989 Unknown [id number]. 1.13.56.2 .7.3.542955.315 1962 Unknown [id number] 2.16.840.1.485880.3.579. 2.593 1962 Unknown [id number] 2.16.840.1.398709.3.579. 2.593 1962 Unknown [id number] 2.16.840.1.569696.3.579. 2.593 1962 Unknown [id number] 2.16.840.1.656863.3.579. 2.593 1962 Unknown [id number] 2.16.840.1.181193.3.579. 2.593 1962 Unknown [id number] 2.16.840.1.076496.3.579. 2.593 1962 Unknown [id number] 2.16.840.1.921480.3.579. 2.627 1962 Unknown [id number] 2.16.840.1.978298.3.579. 2.627 1962 Unknown [id number] 2.16.840.1.195346.3.579. 2.1245 1962 Unknown [id number] 2.16.840.1.662207.3.579. 2.124 1962 Unknown [id number] 2.16.840.1.710014.3.579. 2.1244 1962 Unknown [id number] 2.16.840.1.178373.3.579. 2.1245 1962 Unknown [id number] 2.16.840.1.944495.3.579. 2.124 1962 Unknown [id number] 2.16.840.1.722378.3.579. 2.1242 1962 Unknown [id number] 2.16.840.1.807882.3.579. 2.1241 1962 Unknown [id number] 2.16.840.1.758926.3.579. 2.1242 1962 Unknown [id number] 2.16.840.1.637783.3.579. 2.124 1962 Unknown [id number] 2.16.840.1.326903.3.579. 2.1242 1962 Unknown [id number] 2.16.840.1.830250.3.579. 2.1258 1962 Unknown [id number] 2.16.840.1.950457.3.579. 2.1258 1962 Unknown [id number] 2.16.840.1.657390.3.579. 2.1258 1962 Unknown [id number] 2.16.840.1.347356.3.579. 2.1258 1962 Unknown [id number] 2.16.840.1.682285.3.579. 2.1258 1962 Unknown [id number] 2.16.840.1.286247.3.579. 2.1258 1962 Unknown [id number] 2.16.840.1.944884.3.579. 2.1258 1962 Unknown [id number] 2.16.840.1.566178.3.579. 2.1258 1962 Unknown [id number] 2.16.840.1.819028.3.579. 2.1258 1962 Unknown [id number] 2.16.840.1.751459.3.579. 2.1258 1962 Unknown [id number] 2.16.840.1.129818.3.579. 2.1258 1962 Unknown [id number] 2.16.840.1.644198.3.579. 2.9 1959 Unknown [id number] Unknown [id number] Unknown [id number] 2.16.840.1.311996.3.579. 2.531 Unknown [id number] 2.16.840.1.952488.3.579. 2.531 Unknown [id number] 2.16.840.1.376864.3.579. 2.531 Unknown [id number] 2.16.840.1.408657.3.579. 2.531 Social History Date Type Detail Facility Start: 05-17-2023 End: 07-09-2024 Sex Assigned At [facility] Start: 1960 Sex Assigned At Male F [facility] Tobacco smoking stat us NHIS Tobacco smoking consumption unknown [facility] Start: 1960 Sex Assigned At [facility] Start: 04-14-2023 End: 08-14-2023 Exposure to SARS-CoV-2 (event) Not sure [facility] Start: 03-07-2023 End: 05-10-2023 Tobacco smoking status NHIS Never smoked tobacco [facility] Start: 03-07-2023 End: 05-10-2023 Tobacco use and exposure Smokeless tobacco non-user [facility] Work Phone: Start: 05-17-2023 End: 07-16-2024 Alcohol intake Ex-drinker (finding) [facility] Work Phone: Start: 05-17-2023 End: 07-09-2024 History of Social function [facility] How often to you hav e a drink containing alcohol? Never [facility] How many standard drinks containing alcohol do you have on a typical day? Patient does not drink [facility] Work Phone: In the past 12 month s, was there a time when you were not able to pay the mortgage or rent on time? No [facility] Work Phone: Are you now , , [...] Not at all [facility] (I/We) worried whejavid er (my/our) food would run out before (I/we) got money to buy more. Never true [facility] Start: 10-30-2022 Alcohol Comment caffeine: soda , chocolate [facility] Medical Equipment Procedure Code Equipment Code Equipment Origin al Text Equipment Identifier Dates Modulus [id number]-[id number] 8 Degree [id number] Start: 06-01-2023 Comment on above: Description: Per lyly l only jdr 06/03 Moduls Tlif- [id number] 8 Degree [id number] Start: 06-01-2023 Comment on above: Description: Per lyly l only jdr 06/03 Infuse Bmp Small - [id number] - [id number] Start: 06-01-2023 Screw, Reline Lock, 5.5mm Open Tulip - [id number] Start: 06-01-2023 Screw, Reline-O, 7.5x50mm 2s Polyaxial - [id number] Start: 06-01-2023 Reline-O Conn, 5-6/5-6mm O-O Med - [id number] Start: 06-01-2023 Screw, Reline-O, 8.5x50mm 2s Polyaxial - [id number] Start: 06-01-2023 Screw, Reline-O, 8.5x80mm 2s Poly Iliac - [id number] Start: 06-01-2023 Screw, Reline-O, 6.5x45mm 2s Polyaxial - [id number] Start: 06-01-2023 Screw, Reline-O, 7.5x45mm 2s Polyaxial - [id number] Start: 06-01-2023 Unid Exp Ti Jaren 5.5mm 4+ Lv [id number] Start: 06-01-2023 20mm Offset Open [id number] Start: 06-01-2023 Comment on above: Description: Per lyly l only jdr 06/03 USE DIRECTED ONCE DAILY [id number] Start: 09-06-2023 USE DIRECTED ONCE DAILY [id number] Start: 06-12-2024 Goals Date Patient Goal Desired Activity /State Personal health goal Clinical Notes 12-26-2022 to 07-16-2024 Major Stevens MD - 07/16/2024 9:49 AM Julee Stevens MD - 07/16/2024 9:48 AM Julee Stevens MD - 07/16/2024 9:48 AM Julee Stevens MD - 07/16/2024 9:00 AM EDT Note Date & Type Note Facility 07-16-2024 History of Present illness Narrative Associated Problem(s): Type 2 diabetes mellitus with hyperglycemia, without long-term current use of insulin (CMS/HCC) Reports BS controlled and due for A1C. Stick to ADA diet and limit carbs. Associated Problem(s): Lumbar spondylosis Pain recently worse and treat with prednisone. Use flexeril PRN. Associated Problem(s): Essential hypertension (CMS/HCC) BP elevated today but reports normal at home and monitor PRN. Images from the original note were not included. Subjective Patient ID: Lobito Tomlin is a 64 y.o. male who presents for Follow-up (6m ) and Back Pain (Flare up in lower back). Follow up DM, HTN, back pain, and psoriasis. Patient stable today. 14 day BS average is 105. Tries to eat well and stick to ADA diet. Denies signs of elevated BS such as polyuria, polyphagia or polydipsia. Due for A1C. Checking BP PRN and typically controlled. BP elevated today. Taking medication daily and tolerating without side effects. Back pain recently worse. Increased pain in low back and across top hips. Denies radicular pain and no weakness in legs. Using OTC PRN and not much relief. Feels better today. Back Pain Pertinent negatives include no abdominal pain, chest pain or dysuria. Review of Systems Constitutional: Negative for fatigue. Respiratory: Negative for cough, shortness of breath and wheezing. Cardiovascular: Negative for chest pain and palpitations. Gastrointestinal: Negative for abdominal pain, diarrhea, nausea and vomiting. Genitourinary: Negative for dysuria. Musculoskeletal: Positive for back pain. Objective Physical Exam Constitutional: General: He is [...] There is no guarding or rebound. Musculoskeletal: Left lower leg: No edema. Neurological: Mental Status: He is alert. Assessment/Plan Problem List Items Addressed This Visit Type 2 diabetes mellitus with hyperglycemia, without long-term current use of insulin (CMS/HCC) - Primary Reports BS controlled and due for A1C. Stick to ADA diet and limit carbs. Relevant Orders Hemoglobin A1c Lumbar spondylosis Pain recently worse and treat with prednisone. Use flexeril PRN. Relevant Medications cyclobenzaprine (Flexeril) 10 MG tablet predniSONE (Deltasone) 50 MG tablet Essential hypertension (CMS/HCC) BP elevated today but reports normal at home and monitor PRN. documented in this encounter [facility] 05-27-2024 History of Present illness Narrative I just had the pleasure of seeing Mr. Tomlin back in the Neurosurgery Spine Clinic at the [facility]. He is a very pleasant 63 -year-old male, who recently underwent a L2-S1 Fusion with me on 06/01/2023 and is almost 1 year out from his surgery. Mr. Tomlin is doing extremely well from his surgery and has no complaints whatsoever today. He is overall very pleased with the results. He denies any low back or lower extremity pain today. Alert and oriented Motor strength baseline with no new weakness. Sensory exam grossly intact Gait Normal Incision well healed. AP and lateral long cassette scoliosis films shows well placed instrumentation with no evidence of any instrumentation failure. There are no concerning neurological issues at this point. At his point of time, we will see him back in clinic at 1 year from now with an AP and lateral long cassette scoliosis films. It was a pleasure to participate in Mr. Tomlin care. All questions were answered to the patients satisfaction and he explained understanding of the further treatment plan. Isha Valentino MD, [facility], FAANS Director - Minimally Invasive Spine Surgery [facility] Major Case Detective of Neurological Surgery [facility] [place], [place] ---Some of this note was completed using [employer] voice recognition technology and sometimes the software misinterprets words. This may include unintended errors with respect to translation of words, typographical errors or grammar errors which may not have been identified prior to finalization of the chart note. Please take this into account when reading this note--- documented in this encounter [facility] Work Phone: 01-15-2024 History of Present illness Narrative Associated Problem(s): Essential hypertension ([facility]/HCC) BP improved and monitor PRN. Associated Problem(s): [...] hyperglycemia, without long-term current use of insulin ([facility]) Reports BS controlled and last A1C 6.3. Stick to ADA diet and limit carbs. Essential hypertension (CMS/HCC) BP improved and monitor PRN. Annual physical exam - Primary Reviewed labs. Discussed proper diet and regular aerobic exercise. Need aerobic exercise 5-6 days a week for 30 minutes at a time. Smaller portions and limit total calories. Colonoscopy every 10 years. Tetanus every 10 years. Advised not to smoke. Discussed daily Aspirin therapy. documented in this encounter [facility] 08-14-2023 History of Present illness Narrative I just had the pleasure of seeing Mr. Tomlin back in the Neurosurgery Spine Clinic at the [facility]. He is a very pleasant 63 -year-old [...] the further treatment plan. Isha Valentino MD, [facility], FAANS Director - Minimally Invasive Spine Surgery [facility] Major Case Detective of Neurological Surgery [facility] [employer] [facility] [place], [place] ---Some of this note was completed using [employer] voice recognition technology and sometimes the software misinterprets words. This may include unintended errors with respect to translation of words, typographical errors or grammar errors which may not have been identified prior to finalization of the chart note. Please take this into account when reading this note--- documented in this encounter [facility] Work Phone: 06-06-2023 Hospital course Narrative Discharge [...] Provider Department Center 06/13/2023 10:45 AM [facility] NURSE [id number] Academic 07/10/2023 11:40 AM Isha Valentino MD [id number] [facility] ELIECER Hernandez documented in this encounter [facility] Work Phone: 06-06-2023 History of Present illness [...] (none) End of Session Communication: Bedside nurse, Steam Finisher, Physician Assessment Comment: 63 yo male with [...] 05/31 for surgery; dx: Right lumbar radiculopathy; 3/8 s/p L2-pelvis instrumented fusion, L3-4 PCO, [...] steps (consecutively) with 1 rail and min LEARNING DESIGNER, 1 step at a time) Outcome Measures: [facility] Basic Mobility Turning from your back to [...] mod -intensity by pt/ot referral sent to [facility] which is the Foc of patient [...] hand placement Stairs Stairs: No Outcome Measures: [facility] Basic Mobility Turning from your back to [...] snf choices medically ready 2-days Status-Inpatient Payer- [facility] Potential Barriers: None ADOD: 06/07/2023 Patricio Salas RN [facility] [phone] Lobito Tomlin is a 63 y.o. 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 male on day 2 of admission presenting with Lumbar radiculopathy, right. Subjective PATIENT DOING WELL Objective Physical Exam BUE / BLE 07/28 SILT Last Recorded Vitals Blood [...] Prior Function Per Pt/Caregiver Report Level of [place]: Independent with ADLs and functional transfers, Independent [...] No apparent deficits Strength Strength Comments: Marisa WFRonan Static Sitting Balance Static Sitting-Balance Support: Feet [...] verbal cues, Moderate tactile cues Outcome Measures: [facility] Basic Mobility Turning from your back to [...] schedule permits.) Missed Time: Attempt Ely Abdullahi (OTR/Ronan, OTD) Inpatient Occupational Therapist Rehab Office: [phone] Acute Pain Service Postop Pain HPI - Palliative: relieved with IV analgesics and regional local anesthetics Provocative: movement Quality: burning and aching Radiation: none Severity: 08/02 Timing: constant 24-HOUR OPIOID CONSUMPTION: MED ADMIN hydromorphone 0.8mg Hydromorphone 1mg Oxycodone 10mg Scheduled [...] per primary [place] [phone] ph [phone] Associated attestation - Amada Palomino MD - [...] will plan for downgrade Maintain drain Dc MED ADMIN/menezes No uprights AM labs PTOT-OK to work [...] their scheduled procedure and reviewed the patient's [id number] medications for accuracy. Medications ADDED: Acetaminophen 500mg [...] Below are additional concerns with the patient's BOOKKEEPER ASSISTANT list. none Morena Curtis [facility] Please reach out via Secure Chat for questions documented in this encounter [facility] Work Phone: 06-06-2023 Plan of care note [...] barriers include getting rest premedicating for activities. [facility] 06-06-2023 Miscellaneous Notes Problem: Pain Goal: Takes [...] Note Date: 06/01/2023 OR Location: [facility] OR Name: Lobito Tomlin, : 1960, [...] Surgeons * Isha Valentino - Primary Resident/Fellow/Other Transport Operations Inspector: Surgeon(s) and Role: * Terrell Johnson MD - Resident - Assisting * Leonardo Infante MD - Fellow MEDICATIONS: Antibiotic prophylaxis given [...] performed and the images transferred to the [employer] system for use in intraoperative image-guided computer-assisted [...] caps and final tightened using the torque water taxi driver and counter-torque.A third supporting jaren was placed on the left side using a [id number] connector between L2 and L3 level and [...] Valentino Date: 06/01/2023 OR Location: [facility] OR Name: Lobito Tomlin, : 1960, [...] bone autograft and BMP with pelvic fixation. 01832 - IL ARTHRODESIS COMBINED TQ 1NTRSPC LUMBAR IL OSTEOTOMY SPINE PST/PSTLAT APPR 1 VRT SGM LMBR [12450] IL ARTHRODESIS PST/PSTLAT TQ 1NTRSPC EA ADDL NTRSPC [56089] IL STACK FACETECTOMY & FORAMOTOMY 1 VRT SGM LUMBAR [82146] IL POSTERIOR SEGMENTAL INSTRUMENTATION 3-6 VRT SEG [57675] IL PELVIC FIXATION OTHER THAN SACRUM [77654] IL ALLOGRAFT FOR SPINE SURGERY ONLY MORSELIZED [] IL AUTOGRAFT SPINE SURGERY LOCAL FROM SAME INCISION [82016] [place] STEREOTACTIC COMPUTER ASSISTED PX SPINAL [84962] IL INSJ BIOMCHN DEV INTERVERTEBRAL DSC SPC W/ARTHRD [99710] [place] ARTHRODESIS CMBN TQ 1NTRSPC EACH ADDITIONAL [03855] Surgeons * Isha Valentino - Primary Resident/Fellow/Other Transport Operations Inspector: Surgeon(s) and Role: * Terrell Johnson MD - Resident - Assisting * Leonardo Infante MD - Fellow Procedure Summary Anesthesia: General [...] 490 mL Specimen: No specimens collected Staff: Shoe Sprayer: Levi Gonzales RN; Kimberli Hastings RN Scrub [...] scheduled follow up. documented in this encounter [facility] Work Phone: 06-05-2023 Plan of care note [...] address these barriers include use call light. [facility] Work Phone: 06-03-2023 Plan of [...] medication is given according to the order. [facility] Work Phone: 06-01-2023 Note Formatting of this n ote might be different from the original. Agree with prior nurse assessment. Labs sent. [facility] 06-01-2023 Note Formatting of this n ote is different from the original. L4-5 and L5-S1 transforaminal lumbar interbody fusion with placement of interbody cage with decompression L3-4 posterior column osteotomy and L2-S1 instrumented fusion using local bone autograft and BMP with pelvic fixation. (B) Operative Note Date: 06/01/2023 OR Location: [facility] OR Name: Lobito Tomlin, : 1960, [...] Surgeons * Isha Valentino - Primary Resident/Fellow/Other Transport Operations Inspector: Surgeon(s) and Role: * Terrell Johnson MD - Resident - Assisting * Leonardo Infante MD - Fellow MEDICATIONS: Antibiotic prophylaxis given [...] performed and the images transferred to the [employer] system for use in intraoperative image-guided computer-assisted [...] caps and final tightened using the torque water taxi driver and counter-torque.A third supporting jaren was placed on the left side using a [id number] connector between L2 and L3 level and [...] marino portions of the procedure. Isha Valentino [facility] Work Phone: 06-01-2023 Note Formatting of this n ote is different from the original. Date: 06/01/2023 OR Location: [facility] OR Name: Lobito Tomlin, : 1960, [...] bone autograft and BMP with pelvic fixation. 10573 - IL ARTHRODESIS COMBINED TQ 1NTRSPC LUMBAR IL OSTEOTOMY SPINE PST/PSTLAT APPR 1 VRT SGM LMBR [67636] IL ARTHRODESIS PST/PSTLAT TQ 1NTRSPC EA ADDL NTRSPC [03733] IL STACK FACETECTOMY & FORAMOTOMY 1 VRT SGM LUMBAR [98460] IL POSTERIOR SEGMENTAL INSTRUMENTATION 3-6 VRT SEG [50073] IL PELVIC FIXATION OTHER THAN SACRUM [] IL ALLOGRAFT FOR SPINE SURGERY ONLY MORSELIZED [] IL AUTOGRAFT SPINE SURGERY LOCAL FROM SAME INCISION [] IL STEREOTACTIC COMPUTER ASSISTED PX SPINAL [26818] IL INSJ BIOMCHN DEV INTERVERTEBRAL DSC SPC W/ARTHRD [77030] IL ARTHRODESIS CMBN TQ 1NTRSPC EACH ADDITIONAL [20802] Surgeons * Isha Valentino - Primary Resident/Fellow/Other Transport Operations Inspector: Surgeon(s) and Role: * Terrell Johnson MD - Resident - Assisting * Leonardo Infante MD - Fellow Procedure Summary Anesthesia: General [...] 490 mL Specimen: No specimens collected Staff: Shoe Sprayer: Levi Gonzales RN; Kimberli Hastings RN Scrub Person: Lucian Castillo; Sam Khan Findings: excellent correction Complications: None; patient tolerated the procedure well. Disposition: PACU - hemodynamically stable. Condition: stable Specimens Collected: No specimens collected Attending Attestation: Isha Valentino [facility] Work Phone: 06-01-2023 Consult note [...] pain disorder COVID-19 2020 recovererd Diabetes mellitus ([facility]) F/W PCP Hemoglobin A1c 8.0% or greater 03/08/2023 Last A1c=8.2, jardiance was added. Hypertension F/W PCP, not taking any medications Low back pain August 2018 Lumbar spondylosis Peripheral neuropathy bilateral feet R>L PONV (postoperative nausea and vomiting) Spinal stenosis scheduled for surgery with Dr. Valentino on 06/01/2023 Type 2 diabetes mellitus ([facility]) September 2008 Vision loss wears glasses Past [...] per [place] [phone] ph [phone] Associated attestation - Amada Palomino MD - 06/01/2023 10:58 AM EST I personally saw the patient, discussed risks and benefits, answered all questions, reviewed the chart and agree with the resident's plan. [facility] Work Phone: 06-01-2023 Consult note Formatting of [...] aching Radiation: typically none Severity: typically severe 8-1010 Timing: typically constant Past Medical History: Diagnosis Date Arthritis F/W Rheumatologis, on Methotrexate Chronic pain disorder COVID-19 2020 recovererd Diabetes mellitus ([facility]) F/W PCP Hemoglobin A1c 8.0% or greater 03/08/2023 Last A1c=8.2, jardiance was added. Hypertension F/W PCP, not taking any medications Low back pain August 2018 Lumbar spondylosis Peripheral neuropathy bilateral feet R>L PONV (postoperative nausea and vomiting) Spinal stenosis scheduled for surgery with Dr. Valentino on 06/01/2023 Type 2 diabetes mellitus ([facility]) September 2008 Vision loss wears glasses Past [...] per [place] [phone] ph [phone] Associated attestation - Amada Palomino MD - 06/01/2023 10:58 AM EST I personally saw the patient, discussed risks and benefits, answered all questions, reviewed the chart and agree with the resident's plan. documented in this encounter [facility] Work Phone: 06-01-2023 Hospital Note Formatting of [...] Home Care. Discharged with scheduled follow up. [facility] Work Phone: 06-01-2023 Attending History and physical [...] healing and intraoperative findings. Isha Valentino MD, [facility] Operating System Designer of Neurological Surgery [facility] [employer] Attending Surgeon Director - Minimally Invasive Spine Surgery [place], [place] Source Note - Lama Ewelina MD [...] pain disorder COVID-19 2020 recovererd Diabetes mellitus ([facility]) F/W PCP Hemoglobin A1c 8.0% or greater 03/08/2023 Last A1c=8.2, jardiance was added. Hypertension F/W PCP, not taking any medications Low back pain August 2018 Lumbar spondylosis Peripheral neuropathy bilateral feet R>L PONV (postoperative nausea and vomiting) Spinal stenosis scheduled for surgery with Dr. Valentino on 06/01/2023 Type 2 diabetes mellitus ([facility]) September 2008 Vision loss wears glasses Past [...] Case seen and discussed with Dr. Alvarado. [facility] Work Phone: 06-01-2023 History and physical note [...] healing and intraoperative findings. Isha Valentino MD, [facility] Operating System Designer of Neurological Surgery [facility] [employer] Attending Surgeon Director - Minimally Invasive Spine Surgery [place], [place] Source Note - Lama Ewelina MD [...] pain disorder COVID-19 2020 recovererd Diabetes mellitus ([facility]) F/W PCP Hemoglobin A1c 8.0% or greater 03/08/2023 Last A1c=8.2, jardiance was added. Hypertension F/W PCP, not taking any medications Low back pain August 2018 Lumbar spondylosis Peripheral neuropathy bilateral feet R>L PONV (postoperative nausea and vomiting) Spinal stenosis scheduled for surgery with Dr. Valentino on 06/01/2023 Type 2 diabetes mellitus ([facility]) September 2008 Vision loss wears glasses Past [...] with Dr. Alvarado. documented in this encounter [facility] Work Phone: 03-28-2023 Evaluation note Encounter Date Diagnosis Assessment Notes Mar, Lumbosacral spondylosis (ICD-10 - M47.817) I reviewed the x-ray lumbar spine from 10/16/2022 and which shows levoscoliosis. Diffuse endplate and facet joint degenerative changes with moderate disc space narrowing L3-L4, L4-L5 and L5-S1. No of pathological motion on flexion-extension . I independently reviewed the MRI of the lumbar spine from 12/15/2022 [id number] with patient and and which shows worsening [...] Levoscoliosis of lumbar spine (ICD-10 - M41.86) [facility] Other 11-27-2023 Evaluation note* Encounter Date Diagnosis [...] - G89.29) Continue with current treatment plan [facility]* Encounter Date Diagnosis Assessment Notes [...] (ICD-10 - G89.29) Follow up after procedure. [place] [employer] Other [facility]No [facility] Other Evaluation noteNo assessment information available [facility] Work Phone: Evaluation note* Diagnosis Back pain, unspecified back location, unspecified back pain laterality, unspecified chronicity- Primary [facility] Spinal stenosis of lumbar region with neurogenic claudication documented in this encounter [facility] Work Phone: Evaluation note* Diagnosis Spinal stenosis [...] with neurogenic claudication documented in this encounter [facility] Work Phone: Evaluation note* Diagnosis Lumbar radiculopathy, [...] with neurogenic claudication documented in this encounter [facility] Work Phone: Evaluation note* Diagnosis Status post spinal surgery Other postprocedural status documented in this encounter [facility] Work Phone: Evaluation note* Diagnosis Postoperative follow-up- Primary Follow-up examination, following unspecified surgery documented in this encounter [facility] Work Phone: Evaluation note* Diagnosis S/P lumbar spinal fusion Arthrodesis status Scoliosis of thoracolumbar region due to degenerative disease of spine in adult documented in this encounter [facility] Work Phone: Evaluation note* Diagnosis Type 2 diabetes mellitus with hyperglycemia, without long-term current use of insulin (CMS/HCC)- Primary Lumbar spondylosis Lumbosacral spondylosis without myelopathy [...] Unspecified essential hypertension [facility]* Diagnosis S/P spinal surgery- Primary Other postprocedural status documented in this encounter [facility] Work Phone: Evaluation note* Diagnosis S/P lumbar spinal fusion Arthrodesis status Scoliosis of thoracolumbar region due to degenerative disease of spine in adult documented in this encounter [facility] Work Phone: Evaluation note* Diagnosis Type 2 diabetes mellitus with hyperglycemia, without long-term current use of insulin (CMS/HCC)- Primary Lumbar spondylosis Lumbosacral spondylosis without myelopathy [...] (CMS/HCC) Essential hypertension (CMS/HCC) Unspecified essential hypertension Type 2 diabetes mellitus with hyperglycemia, without long-term current use of insulin (CMS/HCC)- Primary Essential hypertension (CMS/HCC) Unspecified essential hypertension Lumbar spondylosis Lumbosacral spondylosis without myelopathy Arthropathic psoriasis, unspecified (CMS/HCC) documented in this encounter [facility] Narrative - Reported* Type Description Date Medical History DM Medical History arthritis Surgical History arthroscopic right knee X2 Surgical History Procedure:eye exam;D isease:Diabetes mellitus, type 2 without comp. 2013 Surgical History colonoscopy Surgical History Procedure:Arthroscopy knee;Dise ase: 2004 Surgical History Procedure:Meds;Disease:Psoriati c Arthitis Surgical History Procedure:removed;Disease:Groin cyst Surgical History Colonoscopy, Internal Hemorrhio skip- Dr. Solorio 10/02/2014 Hospitalization History see above [facility] Other Reason for referral (narrative)* Reason *Waiting for appt Please refer to Dr Dumont for surgical evaluation Diagnosis 1 Lumbar radiculopathy (M54.16) Referral Organization [facility] Pain Managemen t Referring Provider First Name Abel Referring Provider Last Name Lori Referring Provider Specialty Pain Medici ne Referred Organization [facility] urosurgery Referred Provider David Dumont Referred Address [address],[address] Referred Provider Specialty Neurological Surgery Referral Priority Routine General Notes JadeBk 02/19 01:27:01 PM > Received today, sent P2P [facility] Other Reason for visit Narrativereferred by Dr. Sandoval [facility], [facility] Other reason for visit Narrative* Imaging (Routine) - Pending Review Specialty Diagnoses / Procedures Referred By Mackenzie hansen Referred To Contact Radiology Diagnoses S/P lumbar spinal fusion Scoliosis of thoracolumbar region due to degenerative disease of spine in adult Procedures XR full spine 2 view scoliosis X-ray scoliosis 2 View ([place] EOS) [place] [address] [address] Department [place] [address] Phone: tel: fax: Referral ID Status Reason Start Date Expiration Date Visits Requested Visits Authorized [id number] Pending Review Perform Procedure 04/15/2024 04/15/2025 1 1 [facility] Work Phone: Summary Purpose Family History No Family History [...] Back Pain Chief Complaint M54.16 Back Pain 02229 Reason for Referral Specialty Diagnoses / Procedures Referred By Contac t Referred To Contact Radiology Diagnoses S/P lumbar spinal fusion Scoliosis of thoracolumbar region due to degenerative disease of spine in adult Procedures X-ray scoliosis 2 View (NON EOS) [place] [address] [address] Department of Neurological Surgery [place] [phone] Referral ID Status Reason Start Date Expiration Date Visits Requested Visits Authorized [id number] Authorized Perform Procedure 08/13/2023 08/12/2024 1 1 Specialty Diagnoses / Procedures Referred By Contac t Referred To Contact Radiology Diagnoses Status post spinal surgery Procedures X-ray scoliosis 2 View (NON EOS) [place] [address] [address] Department [place] [address] Referral ID Status Reason Start Date Expiration Date Visits Requested Visits Authorized [id number] Authorized Perform Procedure 07/10/2023 07/09/2024 1 1 Specialty Diagnoses / Procedures Referred By Contac t Referred To Contact Home Health Services Diagnoses Lumbar [place]iculopathy[place] [address] [address] Department [place] [address] Referral ID Status Reason Start Date Expiration Date Visits Requested Visits Authorized [id number] Authorized Specialty Services Required 06/06/2023 06/05/[phone] Specialty Diagnoses / Procedures Referred By Contac t Referred To Contact Diagnoses Surgery, elective Preop testing Preoperative general physical examination Procedures ECG 12 lead Almadhyani, [place] [address] [address] Department of Anesthesiology/[place] [address] Referral ID Status Reason Start Date Expiration Date V isits Requested Visits Authorized [id number] Authorized 05/17/2023 2024 1 1 Specialty Diagnoses / Procedures Referred By Contac t Referred To Contact Radiology Diagnoses Spinal stenosis of lumbar region with neurogenic claudication Procedures X-ray scoliosis 2 View (NON EOS) [place] [address] [address] Department [place] [address] Referral ID Status Reason Start Date Expiration Date Visits Requested Visits Authorized [id number] Authorized Perform Procedure 04/24/2023 04/23/2024 1 1 Specialty Diagnoses / Procedures Referred By Contac t Referred To Contact Radiology Diagnoses Back pain, unspecified back location, unspecified back pain laterality, unspecified chronicity Procedures DOWNLOAD POWERSHARE IMAGES TO Dino Syed [place] [employer] [place] [address] [facility] DIAGNOSTIC RADIOLOGY [address] [place], [place] [address] [address] Referral ID Status Reason Start Date Expiration Date V isits Requested Visits Authorized [id number] Authorized 04/12/2023 04/11/2024 1 1 Additional Source Comments (unrecognized sect ion and content) No Status Records FoundNo Status Records FoundNo Status Records FoundNo Status Records FoundNo Status Records FoundNo Status Records FoundNo Status Records FoundNo Status Records Found INFORMATION SOURCE (unrecogn ized section and content) DATE CREATED AUTHOR 07/22/2022 [facility] DATE CREATED AUTHOR AUTHOR'S ORGANIZ ATION 02/19/2023 [facility] DATE CREATED AUTHOR AUTHOR'S ORGANIZ ATION 05/26/2023 [facility] DATE CREATED AUTHOR AUTHOR'S ORGANIZ ATION 06/12/2023 [facility] ([place] DATE CREATED AUTHOR AUTHOR'S ORGANIZ ATION 12/04/2023 [facility] DATE CREATED AUTHOR AUTHOR'S ORGANIZ ATION 06/01/2024 [facility] DATE CREATED AUTHOR AUTHOR'S ORGANIZ ATION 07/17/2024 [facility] EPIC REASON FOR VISIT (unrecogniz ed section and content) Reason Comments Follow-up 6m Back Pain Flare up in [place] Reason Comments Annual Exam States he's here for an annual examEverything is going good Specialty Diagnoses / Procedures Referred By Mackenzie t Referred To Contact Radiology Diagnoses S/P lumbar spinal fusion Scoliosis of thoracolumbar region due to degenerative disease of spine in adult Procedures X-ray scoliosis 2 View (NON EOS) [place] [address] [address] Department of Neurological Surgery [place] [phone] Referral ID Status Reason Start Date Expiration Date Visits Requested Visits Authorized [id number] Authorized Perform Procedure 08/13/2023 08/12/2024 1 1 Specialty Diagnoses / Procedures Referred By Mackenzie hansen Referred To Contact Radiology Diagnoses Status post spinal surgery Procedures X-ray scoliosis 2 View (NON EOS) [place] [address] [address] Department of Neurological Surgery [place] [phone] Referral ID Status Reason Start Date Expiration Date Visits Requested Visits Authorized [id number] Authorized Perform Procedure 07/10/2023 07/09/2024 1 1 [...] Lumbar stenosis with neurogenic claudication [M48.062] Procedures IL ARTHRODESIS COMBINED TQ 1NTRSPC LUMBAR IL OSTEOTOMY SPINE PST/PSTLAT APPR 1 VRT SGM LMBR IL ARTHRODESIS PST/PSTLAT TQ 1NTRSPC EA ADDL NTRSPC IL STACK FACETECTOMY & FORAMOTOMY 1 VRT SGM LUMBAR IL POSTERIOR SEGMENTAL INSTRUMENTATION 3-6 VRT SEG IL PELVIC FIXATION OTHER THAN SACRUM IL ALLOGRAFT FOR SPINE SURGERY ONLY MORSELIZED IL AUTOGRAFT SPINE SURGERY LOCAL FROM SAME INCISION IL STEREOTACTIC COMPUTER ASSISTED PX SPINAL IL INSJ BIOMCHN DEV INTERVERTEBRAL DSC SPC W/ARTHRD IL ARTHRODESIS CMBN TQ 1NTRSPC EACH ADDITIONAL L4-5 and L5-S1 transforaminal lumbar interbody fusion with placement of interbody cage with decompression L3-4 posterior column osteotomy with L2-3 laminectomy and facetectomy and L2-S1 instrumented fusion using local bone autograft and BMP [place]. [place] [address] [address] Department of Neurological Surgery [place] [phone] [facility] [place] [address] [place] [address] Referral ID Status Reason Start Date Expiration Date Visits Re quested Visits Authorized [id number] 1 1 Specialty Diagnoses / Procedures Referred By Contac t Referred To Contact Diagnoses Surgery, elective Preop testing Preoperative general physical examination Procedures [place] 12 [place] [address] [address] Department of Anesthesiology/House Staff [place] [phone] Referral ID Status Reason Start Date Expiration Date V isits Requested Visits Authorized [id number] Authorized 05/17/2023 2024 1 1 Specialty Diagnoses / Procedures Referred By Contac t Referred To Contact Radiology Diagnoses Spinal stenosis of lumbar region with neurogenic claudication Procedures X-ray scoliosis 2 View (NON EOS) [place] [address] [address] Department of Neurological Surgery [place] [phone] Referral ID Status Reason Start Date Expiration Date Visits Requested Visits Authorized [id number] Authorized Perform Procedure 04/24/2023 04/23/2024 1 1 [...] Active Sully Barney NP Attending Provider Active Marzipan Maker Relationship Specialty Start Date End Date Major Stevens MD [address] [place] [address] PCP - General Family Medicine 05/17/23 Marzipan Maker Relationship Specialty Start Date End Date Major Stevens MD [address] [place] [address] PCP - General Family Medicine 05/17/23 Marzipan Maker Relationship Specialty Start Date End Date Major Stevens MD [address] [place] [address] PCP - General Family Medicine 05/17/23 Marzipan Maker Relationship Specialty Start Date End Date Major Stevens MD [address] [place], [place] [address] PCP - General Family Medicine 05/17/23 Marzipan Maker Relationship Specialty Start Date End Date Major Stevens MD [address] [place] [address] PCP - General Family Medicine 05/17/23 Marzipan Maker Relationship Specialty Start Date End Date Major Stevens MD [address] [place] [address] PCP - General Family Medicine 04/16/23 Marzipan Maker Relationship Specialty Start Date End Date Major Stevens MD [address] [place] [address] PCP - General Family Medicine 04/16/23 Marzipan Maker Relationship Specialty Start Date End Date Major Stevens MD [address] [place] [address] PCP - General Family Medicine 04/16/23 Marzipan Maker Relationship Specialty Start Date End Date Major Stevens MD [address] [place] [address] PCP - General Family Medicine 04/16/23 Marzipan Maker Relationship Specialty Start Date End Date Major Stevens MD [address] [place] [address] PCP - General Family Medicine 05/17/23 Marzipan Maker Relationship Specialty Start Date End Date Major Stevens MD [address] [place], [place] [address] PCP - General Family Medicine 05/17/23 Marzipan Maker Relationship Specialty Start Date End Date Major Stevens MD [address] [place] [address] PCP - General Family Medicine 04/16/23 Marzipan Maker Relationship Specialty Start Date End Date Major Stevens MD [address] [place] [address] PCP - General Family Medicine 04/16/23 Marzipan Maker Relationship Specialty Start Date End Date Major Stevens MD [address] [place] [address] PCP - General Family Medicine 04/16/23 Scheduled [...] Roseanne Garcia RN)1431 (Given - Provider: Roseanne Garcia, RN)211 (Given - Provider: Charla Pedro RN) 0407 (Given - Provider: Charla Pedro RN)0849 (Given - Provider: Fernanda Zapata RN)1407 (Given - Provider: Fernanda Zapata RN)2000 (Due) bisacodyl (Dulcolax) suppository 10 mg 10 mg, rectal, Daily, First dose on Sun06/04/23 at 1030 1155 (Given - Provider: Jacquelin Gaona RN) 1347 (Given - Provider: Roseanne Garcia, DAWN - Comment: Patient request) 0900 (Not Given - Provider: Fernanda Zapata RN - Reason: Patient/family refused) cyclobenzaprine (Flexeril) tablet 10 mg 10 mg, oral, 3 times daily, First dose on Sun06/01/23 at 2100, Phase II/On Unit 0842 (Given - Provider: Jacquelin Gaona RN)1628 (Given - Provider: Jacquelin Gaona RN)2143 (Given - Provider: Charla Pedro RN) 0813 (Given - Provider: Roseanne Garcia, DAWN)1431 (Given - Provider: Roseanne Garcia, RN)2112 (Given - Provider: Charla Pedro, DAWN) 0849 (Given - Provider: Fernanda Zapata RN)1600 [...] refused) 0813 (Given - Provider: Roseanne Garcia RN)1431 (Given - Provider: Roseanne Garcia, RN)2112 [...] reaches 100 mg/dL., Starting on Sun06/01/23 at 1931, For 1 dose, Phase II/On Unit, Discontinue once blood glucose reaches 100 mg/dL. dextrose 50 % injection 25 g 25 g, intravenous, Every 15 min PRN, For blood glucose less than or equal to 40 mg/dL, Starting on Sun06/01/23 at 1931, Phase II/On Unit, May repeat until blood [...] Sun06/01/23 at 1931, Phase II/On Unit, HOLD MED ADMIN Infusion and notify H.O. immediately ondansetron (Zofran) [...] Charla Pedro RN) 0428 (Given - Provider: Chalra Pedro, DAWN)1848 (Given - Provider: Roseanne Garcia RN) 0057 (Given - Provider: Charla Pedro RN)1823 (Given - Provider: Fernanda Zapata RN) oxygen (O2) therapy inhalation, Continuous PRN - O2/gases, other, Starting on 06/01/23 at 1932, Phase II/On Unit, Titrate supplemental oxygen to maintain SpO2 greater than or equal to 92, Device: Nasal Cannula, Rate in liters per minute: 2 LPM, Keep O2 Sat Above: 92% promethazine (Phenergan) suppository 25 mg(Linked Group 2) 25 mg, rectal, Every 12 hours PRN, nausea/vomiting, second line, Starting on 06/01/23 at 1932, Phase II/On Unit, 2nd Line. Give IL if patient is unable to take orally. [...] 1932, Phase II/On Unit
2nd Line. Give IL if patient is unable to take orally. [...] BE BASED ON THE PRIMARY CLINICAL RECORDS. [facility] [employer] [facility]. provides no warranty or guarantee of the accuracy or completeness of information in this document.
[2024-11-12 10:59] LABS: Hematocrit 44.2 % (42.0-54.0); Hemoglobin 14.5 g/dL (14.0-18.0); Immature Granulocytes Abs Auto 0.01 10^3/uL (0.00-0.03); Immature Granulocytes Pct Auto 0.2 % (0.0-0.5); Lymphocytes Absolute Auto 1.3 10^3/uL (1.2-3.8); Mean Corpuscular HGB Conc 32.8 g/dL (29.9-35.2); Mean Corpuscular Hemoglobin 28.8 pg (25.9-34.0); Mean Corpuscular Volume 87.9 fL (80.0-94.0); Platelet Count 247 10^3/uL (150-450); Red Blood Count 5.03 10^6/uL (4.70-6.10); White Blood Count 5.0 10^3/uL (4.0-11.0)
[2024-11-12 11:42] LABS: Alanine Aminotransferase 57 U/L (16-63); Albumin Globulin Ratio 1.0; Albumin Level 4.0 g/dL (3.4-5.0); Alkaline Phosphatase 96 U/L (46-116); Anion Gap 11.0; Aspartate Amino Transferase 29 U/L (15-37); Blood Urea Nitrogen 11.0 mg/dL (7.0-18.0); Calcium 9.6 mg/dL (8.5-10.1); Carbon Dioxide 29.7 mmol/L (21.0-32.0); Chloride 104 mmol/L (98-107); Estimated GFR (African America >60 (>=60 mL/min/1.73m^2); Estimated GFR (Non-African Ame >60 (>=60 mL/min/1.73m^2); Globulin 4.2 g/dL; Glucose 132 mg/dL (74-106); Potassium 3.7 mmol/L (3.5-5.1); Sodium 141 mmol/L (136-145); Total Protein 8.2 g/dL (6.4-8.2)
== END 2024-11-12 10:27 | disposition home or self-care (01) ==
LOC: LAB 10:28
PROVIDERS: PCP Family Medicine; Visit Provider Registered Nurse
DX: L40.51 Distal interphalangeal psoriatic arthropathy (principal); M15.0 Primary generalized (osteo)arthritis; Z79.899 Other long term (current) drug therapy
CPT/HCPCS: 36415; 80053; 85025; 85652

== ENCOUNTER 2025-01-14 10:19 | Outpatient (OUT) | payer OTHER, SELFPAY ==
--- OUTSIDE RECORDS SUMMARY | 2025-01-14 10:26 | XMS_ITS | Clinical Summary ---
Author Organization [facility] Address [address] [facility] [place] [address] Care Team Providers Care Body Presser Name Role Phone Unavailable Primary Care Provider Unavailabl e Source Comments The following information is NOT included in Care Everywhere downloads:Psychiatric notes, ECG results, Cardiac Rehab notes, Pulmonary Function notes, data from SmartForms (includes but not limited toPregnancy data,audiograms, eye exams, pre-surgical evaluation notes, well-child exam data).[facility] Social History Tobacco UseTypesPacks/DayYears UsedDateSmoking Tobacco: Never AssessedSex and Gender InformationValueDate RecordedSex Assigned at BirthNot on fileLegal Sex Male04/11/2023 9:21 AM ESTGender IdentityNot on fileSexual OrientationNot on file Plan of Treatment Health MaintenanceDue DateLast YurqUofbcrfqEocdonznzyc75/21/1963HIV Test 1977Hepatitis C Hlhxcevz43/21/1981Tdap Rafhwby0905/16/1980Hepatitis A (HAV) Vaccine (optional start 19+ years)05/16/19812707Ucpohjkolmh73/21/1998CRC Screening 2007Cologuard (Stool DNA)2007FIT2007Pneumococcal Vaccine(s) (50+ yrs) (1 of 1 - PCV)2012Shingles (RZV) Vaccine (1 of 2)2012 Hepatitis B (HBV) Vaccine (optional start 60+ years)3COVID-19 Vaccine (2 - 2024-26 season)506/12/2020Influenza Vaccine (#1)2024RSV vaccine (adult) (1 - 1-dose 75+ series)2037 Insurance * Guarantor: Lobito Tomlin TypeRelation to PatientDate of BirthPhone Billing AddressPersonal/KxlieoPcts43/21/1961 ([place]) [address] [place] [place] [address]
--- OUTSIDE RECORDS SUMMARY | 2025-01-14 10:26 | XMS_ITS | Clinical Summary ---
Author Organization [facility] Address [address] [place] [address] Care Team Providers Care Laboratory Operations Coordinator Name Role Phone Major Garcia MD Primary Care Provider [phone] Allergies No known active allergies Medications MedicationSigDispense QuantityRefillsLast FilledStart DateEnd DateStatus folic acid (Folvite) 1 MG tablet Take 1 mg by mouth in the morning.Active leflunomide (Arava) 20 MG tablet Take 20 mg by mouth in the morning.Active methotrexate 2.5 MG tablet Take 7.5 mg by mouth 1 (one) time per week. Follow directions carefully, and ask to explain any part you do not understand. Take exactly as directed.Active triamcinolone (Kenalog) 0.5 % cream Indications:Flexural psoriasisApply topically 3 (three) times a day 60 g 4Active empagliflozin (Jardiance) 25 MG Indications:Type 2 diabetes mellitus with hyperglycemia, without long-term current use of insulin (HCC)TAKE 1 TABLET(25 MG) BY MOUTH IN THE MORNING 90 tablet 4Active losartan (Cozaar) 25 MG tablet Indications:Essential hypertensionTAKE 1 TABLET(25 MG) BY MOUTH DAILY 90 tablet 4Active atorvastatin (Lipitor) 40 MG tablet Indications:Type 2 diabetes mellitus with hyperglycemia, without long-term current use of insulin (HCC)TAKE 1 TABLET(40 MG) BY MOUTH AT BEDTIME 90 tablet 4Active glipiZIDE (Glucotrol) 10 MG tablet Indications:Type 2 diabetes mellitus with hyperglycemia, without long-term current use of insulin (HCC)TAKE 1 TABLET BY MOUTH TWICE DAILY 180 tablet 5Active metFORMIN (Glucophage) 1000 MG tablet Indications:Essential hypertensionTAKE 1 TABLET BY MOUTH TWICE DAILY 180 tablet 5Active OneTouch Ultra Test test strip Indications:Type 2 diabetes mellitus with hyperglycemia, without long-term current use of insulin (HCC)USE DIRECTED ONCE DAILY 50 strip 5Active cyclobenzaprine (Flexeril) 10 MG tablet Indications:Lumbar spondylosisTake 1 tablet (10 mg) by mouth 3 (three) times a day as needed for muscle spasms 30 tablet 5Active pioglitazone (Actos) 45 MG tablet Indications:Type 2 diabetes mellitus with hyperglycemia, without long-term current use of insulin (HCC)TAKE 1 TABLET(45 MG) BY MOUTH IN THE MORNING 90 tablet 5Active Active Problems ProblemNoted DateDiagnosed DateAnnual physical exam01/15/2024 Assessment & Plan (01/15/2024 9:23 AM EDT): Reviewed labs. Discussed proper diet and regular aerobic exercise. Need aerobic exercise 5-6 days aweek for 30 minutes at a time. Smaller portions and limit total calories. Colonoscopy every 10 years. Tetanus every 10 years. Advised not to smoke. Discussed daily Aspirin therapy. Encounter for long-term (current) use of /24/2024Screening PSA (prostate specific antigen)10/17/2023Obesity (BMI 30-39.9)10/17/2023Flexural xniyvqhqq36/22/2024 Assessment & Plan (10/17/2023 9:52 AM EDT): Increased rash and use steroid cream. Assessment & Plan (07/16/2023 9:50 AM EDT): Rash improved and use steroid cream PRN. Assessment & Plan (04/16/2023 3:14 PM EST): Rash appears to be psoriasis and treat with prednisone. Use steroid cream PRN. Type 2 diabetes mellitus with hyperglycemia, without long-term current use of xseenop5103/07/2023 Assessment & Plan (07/16/2024 9:49 AM EDT): [...] to ADA diet and limit carbs. Psoriatic /13/2023 Assessment & Plan (07/16/2023 9:50 AM EDT): Pain stable and continue methotrexate. Follow with specialists. Lumbar dvrlviujgjy28/13/2023 Assessment & Plan (07/16/2024 9:48 AM EDT): [...] abnormal MRI. Follow up with surgeon. Essential bopojsyklhdn48/13/2023 Assessment & Plan (07/16/2024 9:48 AM EDT): [...] PM EST): BP controlled and monitor PRN. Encounters DateTypeDepartmentCare SkujAkrziirbgwf64/20/2025linisync Result Encounter [facility] External Department Unsolicited Provider, Generic External Data from Last 3 Months Family History Medical HistoryRelationNameCommentsCancerFatherDiabetesFatherLung cancerFather Coronary artery diseaseMotherRelationNameStatusCommentsFatherDeceasedMother Social History Tobacco UseTypesPacks/DayYears UsedDateSmoking Tobacco: NeverSmokeless Tobacco: Never Tobacco Cessation:Counseling Given: Not Answered Alcohol UseStandard Drinks/WeekCommentsNot Currently1 (1 standard drink = 0.6 oz pure alcohol)caffeine: soda, [id number] Health LiteracyAnswerDate Recorded How often do you need to have someone help you when you read instructions, pamphlets, or other written material from your doctor or pharmacy?Never 07/09/2024Humiliation, Afraid, Rape, and Kick questionnaireAnswerDate Recorded Within the last year, have you been afraid of your partner or ex-partner?No 07/09/2024Within the last year, have you been humiliated or emotionally abused in other ways by your partner or ex-partner?No07/09/2024Within the last year, have you been kicked, hit, slapped, or otherwise physically hurt by your partner or ex-partner?No07/09/2024Within the last year, have you been raped or forced to have any kind of sexual activity by your partner or ex-partner?No07/09/2024 Social Connection and Isolation PanelAnswerDate RecordedIn a typical week, how many times do you talk on the phone with family, friends, or neighbors?Three times a week07/09/2024How often do you get together with friends or relatives? Twice a week07/09/2024How often do you attend spiritism or restorationist services?1 to 4 times per year07/09/2024Do you belong to any clubs or organizations such as spiritism groups, unions, fraBeyond the Box or athletic groups, or school groups?No 07/09/2024How often do you attend meetings of the clubs or organizations you belong to?Never07/09/2024re you , , , , never , or living with a partner?Evdtsgb5407/09/2024UDIT-CAnswerDate RecordedQ1: How often do you have a drink containing alcohol?Never07/09/2024Q2: How many drinks containing alcohol do you have on a typical day when you are drinking? Patient does not drink07/09/2024Q3: How often do you have six or more drinks on one occasion?Never07/09/2024Overall Financial Resource Strain (CARDIA)AnswerDate RecordedHow hard is it for you to pay for the very basics like food, housing, medical care, and heating?Not very hard07/09/2024Fin[facility] [place] of Occupational Health - Occupational Stress QuestionnaireAnswerDate RecordedDo you feel stress - tense, restless, nervous, or anxious, or unable to sleep at night because yourmind is troubled all the time - these days?Not at all07/09/2024 Exercise Vital SignAnswerDate RecordedOn average, how many days per week do you engage in moderate to strenuous exercise (like a brisk walk)?4 days07/09/2024On average, how many minutes do you engage in exercise at this level?50 min 07/09/2024Hunger Vital SignAnswerDate RecordedWithin the past 12 months, you worried that your food would run out before you got the money to buymore.Never true07/09/2024Within the past 12 months, the food you bought just didn't last and you didn't have money to get more.Never true07/09/2024PRAPARE - TransportationAnswerDate RecordedIn the past 12 months, has lack of transportation kept you from medical appointments or from getting medications?No 07/09/2024In the past 12 months, has lack of transportation kept you from meetings, work, or from getting things needed for daily living?No07/09/2024 Housing Stability Vital SignAnswerDate RecordedIn the last 12 months, was there a time when you were not able to pay the mortgage or rent on time?No02/28/2023 Number of Places Lived in the Last YearNot on file02/28/2023In the last 12 months, was there a time when you did not have a steady place to sleep or slept in [facility] (including now)?Patient fmhnxxz3202/28/2023Housing Stability Vital SignAnswerDate RecordedIn the last 12 months, was there a time when you were not able to pay the mortgage or rent on time?No07/09/2024In the past 12 months, how many times have you moved where you were living?t any time in the past 12 months, were you homeless or living in a nursing home (including now)?No 07/09/2024Sex and Gender InformationValueDate RecordedSex Assigned at BirthNot on fileLegal IqvGfnr7406/07/2022 7:00 PM EDTGender IdentityNot on fileSexual OrientationNot on file Last Filed Vital Signs Vital SignReadingTime TakenCommentsBlood Uzccyevo739/72007/16/2024 9:15 AM EDT Kjrtp7183 9:15 AM KWQOjuhefivdxs89.4 ??C (97.5 ??F)07/16/2024 9:15 AM EDTRespiratory Tzak627507/16/2024 9:15 AM EDTOxygen Ewifkvqziq20%07/16/2024 9:15 AM EDTInhaled Oxygen Concentration--Kpnvjg84.3 kg (208 lb)07/16/2024 9:15 AM EDT Hvvmyz762.8 cm (5' 10 )07/16/2024 9:15 AM EDTBody Mass Index29.8407/16/2024 9:15 AM EDT Plan of Treatment Not on file Procedures Procedure NamePriorityDate/TimeAssociated DiagnosisCommentsALL SED RATERoutine 11/12/2024 10:39 AM EDT [facility] CMP (CMP) (FOR REMOTE [facility] USE)Gubltxf5711/12/2024 10:39 AM EDT ALL CBC WITH AUTO VBINCmrhsmd82/20/2025 10:39 AM EDT from Last 3 Months Results * (ABNORMAL) [facility] CMP (CMP) (FOR REMOTE [facility] USE) (11/12/2024 10:39 AM EDT) ComponentValueRef RangeTest MethodAnalysis TimePerformed AtPathologist VcjkvtkmsOXMGOX905443 - 145 mmol/LTBHPOTASSIUM3.73.5 - 5.1 mmol/LTBHCHLORIDE 55282 - 107 mmol/LTBHCARBON KEWKGJS42.721.0 - 32.0 mmol/LTBHANION GAP11.0TBH CJFTLSH593(H)74 - 106 mg/dLTBHBLOOD UREA HETBMVVZ80.07.0 - 18.0 mg/dLTBH CREATININE0.800.70 - 1.30 mg/dLTBHTBH EGFR-AF SOUTH AFRICAN>60>=60 mL/min/1.73m 2 TBHTBH EGFR-NON AF SOUTH AFRICAN>60>=60 mL/min/1.73m 2TBHBUN CREATININE RATIO13.8 TBHCALCIUM9.68.5 - 10.1 mg/dLTBHBILIRUBIN TOTAL0.40.2 - 1.0 mg/dLTBHASPARTATE AMINO OKVXNRIHQBS5206 - 37 U/LTBHALANINE OZWMDTFTFIEOBIOX9622 - 63 U/LTBH ALKALINE XRHDHWXEQZP4181 - 116 U/LTBHTOTAL PROTEIN8.26.4 - 8.2 g/dLTBHALBUMIN LEVEL4.03.4 - 5.0 g/dLTBHGLOBULIN4.2g/dLTBHALBUMIN GLOBULIN RATIO1.0TBH Specimen (Source)Anatomical Location / LateralityCollection Method / Volume Collection TimeReceived Time11/12/2024 10:39 AM EDT11/12/2024 10:41 AM EDT Narrative [facility] - 11/12/2024 11:44 AM EDT Authorizing ProviderResult TypeResult StatusGeneric External Data Provider CLINISYNCFinal ResultPerforming OrganizationAddressCity/State/ZIP CodePhone Number [facility] * ALL SED RATE (11/12/2024 10:39 AM EDT)ComponentValueRef RangeTest Method Analysis TimePerformed AtPathologist SignatureTB SED RATE10<=20 mm/hrT Specimen (Source)Anatomical Location / LateralityCollection Method / Volume Collection TimeReceived Time11/12/2024 10:39 AM EDT11/12/2024 10:41 AM EDT Narrative [facility] - 11/12/2024 11:50 AM EDT Authorizing ProviderResult TypeResult StatusGeneric External Data Provider [facility]INISYNCFinal ResultPerforming OrganizationAddressCity/State/ZIP CodePhone Number [facility] * ALL CBC WITH AUTO DIFF (11/12/2024 10:39 AM EDT)ComponentValueRef RangeTest MethodAnalysis TimePerformed AtPathologist SignatureWORCESTER [facility] WBC5.04.0 - 11.0 10 3/uLTBHTBH RBC5.034.70 - 6.10 10 6/uLTBHTBH HGB14.514.0 - 18.0 g/dLTBHTBH HCT 44.242.0 - 54.0 %TBHTBH MCV87.980.0 - 94.0 fLTBHTBH MCH28.825.9 - 34.0 pgTBH TB MCHC32.829.9 - 35.2 g/dLTBHTBH RDW14.611.0 - 15.0 %TBHTBH OVI958047 - 450 10 3/uLTBHTBH MPV10.79.5 - 13.5 fLTBHNEUTROPHILS PERCENT AUTO60.343.0 - 75.0 % TBHLYMPHOCYTES PERCENT AUTO25.520.5 - 60.0 %TBHMONOCYTES PERCENT AUTO10.81.7 - 12.0 %TBHTBH EO %2.60.9 - 7.0 %TBHBASOPHILS PERCENT AUTO0.60.2 - 2.0 %TBH IMMATURE GRANULOCYTES PCT AUTO0.20.0 - 0.5 %TBHNEUTROPHILS ABSOLUTE AUTO3.01.4 - 6.5 10 3/uLTBHLYMPHOCYTES ABSOLUTE AUTO1.31.2 - 3.8 10 3/uLTBHMONOCYTES ABSOLUTE AUTO0.50.3 - 0.8 10 3/uLTBHTBH EO #0.10.0 - 0.7 10 3/uLTBHBASOPHILS ABSOLUTE AUTO0.00.0 - 0.1 10 3/uLTBHIMMATURE GRANULOCYTES ABS AUTO0.010.00 - 0.03 10 3/uLTBHSpecimen (Source)Anatomical Location / LateralityCollection Method / VolumeCollection TimeReceived Time11/12/2024 10:39 AM EDT11/12/2024 10:41 AM EDT Narrative [facility] - 11/12/2024 11:04 AM EDT Authorizing ProviderResult TypeResult StatusGeneric External Data Provider CLINISYNCFinal ResultPerforming OrganizationAddressCity/State/ZIP CodePhone Number [facility] from Last 3 Months Insurance Care Teams Team MemberRelationshipSpecialtyStart DateEnd Date Major Garcia MD PCP - GeneralFamily Medicine04/16/23
--- OUTSIDE RECORDS SUMMARY | 2025-01-14 10:26 | XMS_ITS ---
Author Organization [facility] Address [address] [place] [address] Phone Care Team Providers Care Compensation And Benefits Administrator Name Role Phone Major Garcia MD Primary Care Provider + Active Problems ProblemNoted DateDiagnosed DateLumbar radiculopathy, right06/01/2023Lipoprotein flxovzaqdk82/05/2024hronic pain04/30/20237385Kugffrlim94/05/2024Muscle pain 04/30/2023ain of right hip joint04/30/2023soriasis with vljavauidib18/05/2024 Iliac bone pain04/30/2023Spinal stenosis of lumbar region with neurogenic amcplblocnek86/30/2024Sagittal plane kvlzhjybi77/30/2024Scoliosis of thoracolumbar region due to degenerative disease of spine in adult04/24/2023 Lumbar foraminal eyryzlsk75/30/2024Lumbar radiculopathy, acute04/24/2023Lumbar stenosis with neurogenic zkvwnzakhhtt81/30/2024H/O Spinal ohnkmsc4704/24/2023 Flexural jhlulghdx53/22/2024 Overview (04/30/2023): Last Assessment & Plan: Rash appears to be psoriasis and treat with prednisone. Use steroid cream PRN. Lumbar milhgjsseqh88/13/2023 Overview (04/30/2023): Last Assessment & Plan: Pain unchanged and follow up with surgeon. Primary nflcdixfhoji94/13/2023 Overview (04/30/2023): Last Assessment & Plan: BP controlled and monitor PRN. Type 2 diabetes mellitus with hyperglycemia, without long-term current use of tnompsd2503/07/2023 Overview (04/30/2023): Last Assessment & Plan: BS improved with jardiance and continue. Stick to ADA diet and limit carbs. Pain in left leg3Pain in right hip10/16/2022Other fpc (current) drug tzubooh28/29/2023Psoriatic atqladgdadb04/26/2023Poorly controlled diabetes oaarahti75/23/2022 Current Treatment and Therapy Plans No current plan information found. Past Treatment and Therapy Plans No past plan information found. Lifetime Dose Tracking * ChemicalLifetime DoseAutomatic EntryManual EntryAir Kerma2,173.322 mGy 2,173.322 mGy0 mGy Resolved Problems ProblemNoted DateDiagnosed DateResolved DateMalignant neoplasm of prostate
--- OUTSIDE RECORDS SUMMARY | 2025-01-14 10:26 | XMS_ITS | Clinical Summary ---
Author Organization [facility] Address [address] [place] [address] Phone Care Team Providers Care Button Pusher Name Role Phone Major Garcia MD Primary Care Provider + Allergies No known active allergies Medications MedicationSigDispense QuantityRefillsLast FilledStart DateEnd DateStatus metFORMIN (Glucophage) 1,000 mg tablet Take 1 tablet (1,000 mg) by mouth 2 times daily (morning and late afternoon). Active glipiZIDE (Glucotrol) 10 mg tablet Take 1 tablet (10 mg) by mouth 2 times a day before meals.Active folic acid (Folvite) 1 mg tablet Take 1 tablet (1 mg) by mouth once daily.Active pioglitazone (Actos) 45 mg tablet Take 1 tablet (45 mg) by mouth once daily.Active empagliflozin (Jardiance) 25 mg Take 1 tablet (25 mg) by mouth once daily.Active acetaminophen (Tylenol) 325 mg tablet Indications:Postoperative painTake 2 tablets (650 mg) by mouth every 6 hours. Take every 6 hours scheduled while having pain thentake only as needed for Mild pain06/06/2023ctive Additional Information Patient not taking.Reported on 08/14/2023 methotrexate (Trexall) 2.5 mg tablet Indications:Psoriatic arthritis (Multi)Take 3 tablets (7.5 mg total) by mouth 1 (one) time per week. Follow directions carefully, and ask to explain any part you do not understand. Take exactly as directed. Takes on Sunday. DO NOT RESUME UNTIL /ctive leflunomide (Arava) 20 mg tablet Indications:Psoriatic arthritis (Multi)Take 1 tablet (20 mg) by mouth once daily. DO NOT RESUME UNTIL 06/15/2023 Do not start before June 15, 2023. 06/15/2023ctive cyclobenzaprine (Flexeril) 10 mg tablet Indications:Postoperative painTake 1 tablet (10 mg) by mouth 3 times a day as needed for muscle spasms for up to 7 days. 21 tablet 06/06/2023ctive Active Problems ProblemNoted DateDiagnosed DateLumbar radiculopathy, right06/01/2023Lipoprotein uieownruvd43/05/2024hronic pain04/30/20234387Pluaepkhc88/05/2024Muscle pain 04/30/2023ain of right hip joint04/30/2023soriasis with uesuyefftsp01/05/2024 Iliac bone pain04/30/2023Spinal stenosis of lumbar region with neurogenic vwvntwtmlgym60/30/2024Sagittal plane evogdnimh95/30/2024Scoliosis of thoracolumbar region due to degenerative disease of spine in adult04/24/2023 Lumbar foraminal /30/2024Lumbar radiculopathy, acute04/24/2023Lumbar stenosis with neurogenic ffnpwaaapuwn62/30/2024H/O Spinal ykydaat3004/24/2023 Flexural /22/2024 Overview (04/30/2023): Last Assessment & Plan: Rash appears to be psoriasis and treat with prednisone. Use steroid cream PRN. Lumbar jgrncohuglh11/13/2023 Overview (04/30/2023): Last Assessment & Plan: Pain unchanged and follow up with surgeon. Primary jqpirieqdnzt21/13/2023 Overview (04/30/2023): Last Assessment & Plan: BP controlled and monitor PRN. Type 2 diabetes mellitus with hyperglycemia, without long-term current use of duchcqh8603/07/2023 Overview (04/30/2023): Last Assessment & Plan: BS improved with jardiance and continue. Stick to ADA diet and limit carbs. Pain in left leg01/06/2023ain in right hip10/16/2022Other intermediate project manager (current) drug /29/2023Psoriatic rucsyqjknpy22/26/2023oorly controlled diabetes ahqlpqnq78/23/2022 Resolved Problems ProblemNoted DateDiagnosed DateResolved DateMalignant neoplasm of prostate Family History Medical HistoryRelationNameCommentsStrokeBrotherJames Lambert DomadlinCancerFather Bhavik Quiroz SpradlinAortic aneurysmMotherRelationNameStatusCommentsBrotherJames Lambert SpradlinFatherWoodrowandres Quiroz SpradlinMotherDeceased Social History Tobacco UseTypesPacks/DayYears UsedDateSmoking Tobacco: NeverSmokeless Tobacco: Never Tobacco Cessation:Counseling Given: Not Answered Alcohol UseStandard Drinks/WeekCommentsNot Currently0 (1 standard drink = 0.6 oz pure alcohol)AUDIT-CAnswerDate RecordedQ1: How often do you have a drink containing alcohol?Never06/01/2023Q2: How many drinks containing alcohol do you have on a typical day when you are drinking?Patient does not drink06/01/2023Q3: How often do you have six or more drinks on one occasion?Never06/01/2023Overall Financial Resource Strain (CARDIA)AnswerDate RecordedHow hard is it for you to pay for the very basics like food, housing, medical care, and heating?Not hard at all06/01/2023HQ-2AnswerDate RecordedPatient Health Questionnaire-2 Score0 06/01/2023RAPARE - TransportationAnswerDate RecordedIn the past 12 months, has lack of transportation kept you from medical appointments or from getting medications?No06/01/2023In the past 12 months, has lack of transportation kept you from meetings, work, or from getting things needed for daily living?No 06/01/2023Housing Stability Vital SignAnswerDate RecordedIn the last 12 months, was there a time when you were not able to pay the mortgage or rent on time?No 06/01/2023In the last 12 months, how many places have you lived?In the last 12 months, was there a time when you did not have a steady place to sleep or slept in ashelter (including now)?No06/01/2023Sex and Gender InformationValueDate RecordedSex Assigned at BirthNot on fileLegal SexMale 04/02/2023 1:23 PM ESTGender IdentityNot on fileSexual OrientationNot on file Last Filed Vital Signs Vital SignReadingTime TakenCommentsBlood Wwawclhl513/9405/27/2024 10:45 AM EST Xkkax667105/27/2024 10:45 AM MTOUyuggmhykvp82.7 ??C (96.3 ??F)05/27/2024 10:45 AM ESTRespiratory Rsqq445405/27/2024 10:45 AM ESTOxygen Lrpzwdqoyj60%06/06/2023 4:00 PM EDTInhaled Oxygen Concentration--Jkbfhg71.5 kg (204 lb)05/27/2024 10:45 AM CULWxonrg585.8 cm (5' 10 )08/14/2023 2:31 PM EDTBody Mass Index29.27008/14/2023 2:31 PM EDT Plan of Treatment Health MaintenanceDue DateLast DoneCommentsCT Ivgsfjawkjkj91/21/1963Diabetes: Urine Protein Voailibrd47/21/1963FIT-DNA (Cologuard)1962FIT1962HIV Abwwaugrt06/21/1963Lipid Panel1962 5321Xxolhrypehqwu80/21/1963Yearly Adult Lhpitoac88/21/1963MMR Vaccines (1 of 1 - Standard series)1963Diabetes: Retinopathy Yqprfxzeb89/21/1973Hepatitis C Urkomfqdu18/21/1981Pneumococcal Vaccine (1 of 2 - PCV)1981DTaP/Tdap/Td Vaccines (1 - Tdap)1984PSA Prostate Cancer Gnlxuphkb87/21/2013Zoster Vaccines (1 of 2)2012COVID-19 Vaccine (2 - Bev risk series)/10/2021RSV High Risk: (Elderly (60+) or Population) (1 - Risk 60-74 years 1-dose series)2022 Diabetes: Hemoglobin A1Colonoscopy Colorectal Cancer Bkjupoyls85/10/2025Influenza Vaccine (#1), 01/06/2015HIB VaccinesAged OutNo longer eligible based on patient's age to complete this topicHPV VaccinesAged OutNo longer eligible based on patient's age to complete this topicHepatitis A VaccinesAged OutNo longer eligible based on patient's age to complete this topicHepatitis B VaccinesAged OutNo longer eligible based on patient's age to complete this topicIPV VaccinesAged OutNo longer eligible based on patient's age to complete this topicMeningococcal VaccineAged OutNo longer eligible based on patient's age to complete this topic Rotavirus VaccinesAged OutNo longer eligible based on patient's age to complete this topic Goals GoalPatient Goal TypeAssociated ProblemsRecent ProgressPatient-Stated?Author Help patient manage spine surgery Care PlanPatient has spine surgeryJose Roberto Meza MD Medical Devices ImplantedTypeAreaManufacturerDevice IdentifierShelf Expiration DateModel / Serial / LotModulus Tlif-A,[id number] 8 Degree Implanted:Qty: 1 on 06/01/2023 by [facility] InstituteCageBilateral: Spine LumbarNUVASIVE [id number] / / [id number]:Per bill only jdr 06/03Moduls Tlif- [id number] 8 Degree Implanted:Qty: 1 on 06/01/2023 by [facility] at [facility] InstituteCageBilateral: Spine LumbarNUVASIVE [id number] / / [id number]:Per bill only jdr 06/03Infuse Bmp Small - [id number] - [id number] Implanted:Qty: 1 on 06/01/2023 by [facility] at [facility] InstituteGraftN/A: Spine LumbarMEDTRONIC INC:SOFAMOR [id number] / [id number] / Screw, Reline Lock, 5.5mm Open Tulip - [id number] Implanted:Qty: 16 on 06/01/2023 by [facility] at [facility] InstituteNeuro Interventional ImplantBilateral: Spine LumbarNUVASIVE [id number] / / Screw, Reline-O, 7.5x50mm 2s Polyaxial - [id number] Implanted:Qty: 1 on 06/01/2023 by [facility] HospitalcrewBilateral: Spine LumbarNUVASIVE [id number] / / Reline-O Conn, 5-6/5-6mm O-O Med - [id number] Implanted:Qty: 1 on 06/01/2023 by Jose [facility]ined[facility] at [facility] HospitalcrewBilateral: Spine LumbarNUVASIVE [id number] / / Screw, Reline-O, 8.5x50mm 2s Polyaxial - [id number] Implanted:Qty: 1 on 06/01/2023 by [facility] at [facility] HospitalcrewBilateral: Spine LumbarNUVASIVE [id number] / / Screw, Reline-O, 8.5x80mm 2s Poly Iliac - [id number] Implanted:Qty: 2 on 06/01/2023 by [facility] at [facility] HospitalcrewBilateral: Spine LumbarNUVASIVE [id number] / / Screw, Reline-O, 6.5x45mm 2s Polyaxial - [id number] Implanted:Qty: 5 on 06/01/2023 by Jos eRoberto Pineda MD at [facility] HospitalcrewBilateral: Spine LumbarNUVASIVE [id number] / / Screw, Reline-O, 7.5x45mm 2s Polyaxial - [id number] Implanted:Qty: 4 on 06/01/2023 by [facility] at [facility] HospitalcrewBilateral: Spine LumbarNUVASIVE [id number] / / Unid Exp Ti Franklin 5.5mm 4+ Lv Implanted:Qty: 2 on 06/01/2023 by [facility] at [facility] Hospitalpinal HardwareN/A: Spine LumbarMEDTRONIC [id number] / [id number] / 20mm Offset Open Implanted:Qty: 1 on 06/01/2023 by [facility] at [facility] Hospitalpinal HardwareBilateral: Spine LumbarNUVASIVE [id number] / / Description:Per bill only jdr 06/03 Procedures Procedure NamePriorityDate/TimeAssociated DiagnosisCommentsHEMOGLOBIN L3YIsosvnd 04/24/2023 11:24 AM EST Spinal stenosis of lumbar region with neurogenic claudication from Last 3 Months or Most Recently Relevant to Health Maintenance Results * (ABNORMAL) Hemoglobin A1c (04/24/2023 11:24 AM EST)ComponentValueRef RangeTest MethodAnalysis TimePerformed AtPathologist SignatureHemoglobin A1C6.8(H)see below %04/25/2023 12:39 AM [facility] LABEstimated Average Lgfgqtp559Bki Established mg/dL04/25/2023 12:39 AM [facility] LABSpecimen (Source)Anatomical Location / LateralityCollection Method / VolumeCollection TimeReceived Time BloodVenous blood specimen / UnknownVenipuncture / Oygmozs8104/24/2023 11:24 AM EST04/24/2023 11:24 AM EST Narrative [facility] - 04/25/2023 12:39 AM EST Diagnosis of Diabetes-Adults Non-Diabetic: < or = 5.6% Increased risk for developing diabetes: 5.7-6.4% Diagnostic of diabetes: > or = 6.5% Monitoring of Diabetes Age (y)....................... Therapeutic Goal (%) Adults: >18.........................<7.0 Pediatrics: 13-18...................<7.5 Pediatrics: 7-12....................<8.0 Pediatrics: 0-6..................... 7.5-8.5 Citizen Of [place] Diabetes Association. Diabetes Care 33(S1), Mar 2009 Authorizing ProviderResult TypeResult StatusJose Roberto Pineda MDLAB BLOOD ORDERABLESFinal ResultPerforming OrganizationAddressCity/State/ZIP CodePhone Number [facility] [address] [facility] [address] [place] [address] from Last 3 Months or Most Recently Relevant to Health Maintenance Additional Health Concerns Active ProblemsNoted DateDiagnosed DatePatient has spine uaincoy0704/24/2023 Advance Directives For more information, please contact: [phone] (Available ) * Full Code (Latest Code Status on File) Date ActivatedDate InactivatedComments06/01/2023 7:32 PMQuestionAnswerCommentsPlan of Care:* Code Status Discussion Completed Decision Maker:* Patient Care Teams Team MemberRelationshipSpecialtyStart DateEnd Date Major Garcia MD [address] [place] [address] PCP - GeneralFamily Medicine05/17/23
--- OUTSIDE RECORDS SUMMARY | 2025-01-14 10:26 | XMS_ITS | Clinical Summary ---
Author Organization [employer] [facility] tem Address [id number] [place] [address] Care Team Providers Care Automotive Service Advisor Name Role Phone Unavailable Primary Care Provider Unavailabl e Social History Tobacco UseTypesPacks/DayYears UsedDateSmoking Tobacco: Never AssessedChildcare AnswerDate IfbpdawhGqpxgmekpWuheagv53/12/2019EmploymentAnswerDate Recorded RoztnwwwyyEfbvupu63/12/2019Purpose - LifeAnswerDate RecordedPurpose and direction in updeCookmnx33/11/2021ex and Gender InformationValueDate Recorded Sex Assigned at BirthNot on fileLegal VcfCwlh0510/29/2014 11:23 AM EDTGender IdentityNot on fileSexual OrientationNot on file Plan of Treatment Health MaintenanceDue DateLast DoneCommentsDepression Avyoqxkod13/21/1975Tobacco Psalrxdrz14/21/1975Adult BMI Vzpzbhcbs95/21/1981DTaP,Tdap and Td Vaccines (1 - Tdap)1981Zoster (Shingles) Vaccine (1 of 2)2012Influenza Vaccine 11/24/2024 Medical Devices Not on file Insurance
--- OUTSIDE RECORDS SUMMARY | 2025-01-14 10:27 | XMS_ITS | CCD ---
Author Organization [facility] Care Team Providers Care Sas Developer Name Role Phone VALERIE, DR RANDALL Attending [...] Care Provider WAI Barney Sully Attending Provider [phone] MD Abel Sandoval Attending Provider MD Major Stevens Primary Care Provider Ector LADDERMAN Sully Attending Provider [phone] MD Abel Sandoval Attending Provider [phone] Abel Sandoval Admitting Unavailable Abel Sandoavl Attending Unavailable Major Stevens Primary Care Unavailable [...] e Major Stevens MD Primary Care Provider KASLIWAL, ISHA K Attending Unavailable MAJOR STEVENS [...] Unavailable NADERERMAJOR Attending Unavailable Medications Current Medications MedicationDrug Class(es)DatesSig (Normalized)Sig (Original)acetaminophen 325 mg oral tablet (8 sources)Start: 69-35-4390awsezxikicsko (Tylenol) 325 mg tablet Indications: Postoperative pain Take 2 tablets (650 mg) by mouth every 6 hours. Take every 6 hours scheduled while having pain then take only as needed for Mild pain 06/06/2023 ActiveStart: 59-46-7993dnok 1 tablet by mouth every six mg, oral, Every 6 hours, First dose on Sun06/01/23 at 2000, Phase II/On Unit If ordered PRN for pain, nurse is permitted to administer this medication for higher pain scores based on patient preference? Yes End: 11-25-2977bvxi 2 tablets by mouth twice dailyacetaminophen (Tylenol) 500 mg tablet Take 2 tablets (1,000 mg) by mouth 2 times a day. Patient takes #2 tablets 2-3 times a day as needed 0 06/06/2023 Discontinued (Stop Taking at Discharge)atorvastatin 40 mg oral tablet (12 sources)HMG-CoA Reductase InhibitorStart: 13-89-4662zdzr 1 tablet by mouth at bedtimeatorvastatin (Lipitor) 40 MG tablet Indications: Type 2 diabetes mellitus with hyperglycemia, without long-term current use of insulin (HCC) TAKE 1 TABLET(40 MG) BY MOUTH AT BEDTIME 90 tablet 3 10/17/2023 Activebenzocaine 15 mg / menthol 3.6 mg oral lozenge (1 source)Standardized Chemical AllergenStart: lozenge, Mouth/Throat, Every 2 hour PRN, sore throat, Starting on Sun06/01/23 at 1932, Phase II/OnUnitbisacodyl 10 mg rectal suppository (1 source)Stimulant LaxativeStart: 12-56-3655ckldhkoij (Dulcolax) suppository 10 mgchlorhexidine gluconate 40 mg/ml medicated liquid soap (5 sources)Start: 05-17-2023 End: 14-55-9104skjihqwsencmw (Hibiclens) 4 % external liquid Indications: Lumbar stenosis with neurogenic claudication , Surgery, elective , Preop testing , Preoperative general physical examination Apply topicallyonce daily as needed for wound care for up to 5 days. 473 mL 0 05/17/2023 05/22/2023 ActiveStart: 05-17-2023 End: 31-55-2447wvbzenmffisxf (Peridex) 0.12 % solution Indications: Lumbar stenosis with neurogenic claudication ,Surgery, elective , Preop testing , Preoperative general physical examination Use 15 mL in the mouth or throat if needed for wound care for up to 14 days. 120 mL 0 05/17/2023 06/06/2023 Discontinued (Stop Taking at Discharge)cholecalciferol 0.025 mg oral capsule (2 sources)Vitamin DStart: 36-69-2780dahq 1 tablet by mouth once daily Cholecalciferol (Vitamin D3) (Vitamin D3) 1,000 unit Capsule Active 1 TAB PO Daily November 11, 2018 11:00pmcyclobenzaprine hydrochloride 10 mg oral tablet (8 sources)Muscle RelaxantStart: 10-48-6986mupn 1 tablet by mouth three times daily as needed for muscle spasmscyclobenzaprine (Flexeril) 10 MG tablet Indications: Lumbar spondylosis Take 1 tablet (10 mg) by mouth 3 (three) times a day as needed for muscle spasms 30 tablet 2 07/16/2024 ActiveStart: 07-16-2024 take 1 tablet by mouth three times daily as needed for muscle spasms cyclobenzaprine (Flexeril) 10 MG tablet Indications: Lumbar spondylosis Take 1 tablet (10 mg) by mouth 3 (three) times a day as needed for muscle spasms 30 tablet 2 07/16/2024 ActiveStart: 72-31-6033bjzh 1 tablet by mouth three times daily as needed for muscle spasmscyclobenzaprine (Flexeril) 10 MG tablet Indications: Lumbar spondylosis Take 1 tablet (10 mg) by mouth 3 (three) times a day as needed for muscle spasms 30 tablet 2 07/16/2024 ActiveStart: 06-01-2023 End: 95-62-3279nanr 1 tablet by mouth three times daily as needed for muscle spasmscyclobenzaprine (Flexeril) 10 mg tablet Indications: Postoperative pain Take 1 tablet (10 mg) by mouth 3 times a day as needed for muscle spasms for up to 7 days. 21 tablet 06/06/2023 Activedocusate sodium 50 mg / sennosides, half-way 8.6 mg oral tablet (2 sources)Start: 06-01-2023 End: 65-11-9196trpm 2 tablets by mouth twice dailysennosides-docusate sodium (Marycruz-Colace) 8.6-50 mg tablet Indications: Constipation due to pain medication Take 2 tablets by mouth 2 times a day for 7 days. Take while taking pain medication oxycodone to prevent constipation 28 tablet 0 06/06/2023 06/13/2023 Activeempagliflozin 25 mg oral tablet (20 sources)Sodium-Glucose Cotransporter 2 InhibitorStart: 76-61-5636xcpu 1 tablet by mouth in the morningempagliflozin (Jardiance) 25 MG Indications: Type 2 diabetes mellitus with hyperglycemia, without long-term current use of insulin ([facility]) TAKE 1 TABLET(25 MG) BY MOUTH IN THE MORNING 90 tablet 3 07/05/2023 Active folic acid 1 mg oral tablet (20 sources)take 1 tablet by mouth in the morningfolic acid (Folvite) 1 MG tablet Take 1 mg by mouth in the morning. Activegabapentin 300 mg oral capsule (15 sources)Anti-epileptic AgentStart: 05-37-9104tgra 1 capsule by mouth every twenty-four hoursGabapentin 300 MG 1 capsule Orally Once a day for 30 days Mar, ActiveStart: 11-12-2018 End: 72-89-6200citj 1 tablet by mouth three times dailyGabapentin Active 1 TAB PO Three times daily November 11, 2018 11:00pmglipiZIDE 10 mg oral tablet (20 sources)SulfonylureaStart: 64-19-7096osct 1 tablet by mouth twice daily glipiZIDE (Glucotrol) 10 MG tablet Indications: Type 2 diabetes mellitus with hyperglycemia, without long-term current use of insulin ([facility]) TAKE 1 TABLET BY MOUTH TWICE DAILY 180 tablet 3 06/09/2024 ActiveStart: 61-27-5050ihak 1 tablet by mouth twice dailyglipiZIDE (Glucotrol) 10 MG tablet Indications: Type 2 diabetes mellitus with hyperglycemia, without long-term current use of insulin ([facility]/HCC) TAKE 1 TABLET BY MOUTH TWICE DAILY 180 tablet 3 05/09/2023 Active Start: 13-64-0404lnrs 1 tablet by mouth once dailyGlipizide Active 1 TAB PO Daily November 11, 2018 11:00pmglucagon (rdna) 1 mg injection (2 sources)Antihypoglycemic AgentStart: mg, intramuscular, Every 15 min PRN, low blood sugar - see comments, For blood glucose less than or equal to 70 mg/dL and no IV access, Starting on Sun06/01/23 at 1932, Phase II/On Unit Give until blood glucose is 100 mg/dL or greater. If patient DOES NOT HAVE secure IV access & patient is unconscious, NPO or is unable to eat or drink.50 ml glucose 500 mg/ml prefilled syringe (4 sources)Start: g, intravenous, Every 15 min PRN, For blood glucose less than or equal to 40 mg/dL, Starting on Sun06/01/23 at 1932, Phase II/On Unit May repeat until blood glucose level reaches 100 mg/dL or greater. Push 2 - 3 mL/minute if patient has secure IV access.Start: .3 g/kg/hr 95.4 kg (286.2 mL/hr), intravenous, Once as needed, For blood glucose less than 70 mg/dL after 30 minutes of intervention. Discontinue once blood glucose reaches 100 mg/dL., Starting on Sun06/01/23 at 1932, For 1 dose, Phase II/On Unit Discontinue once blood glucose reaches 100 mg/dL.1 ml heparin sodium, porcine 5000 unt/ml injection (1 source)Unfractionated Heparin, Anti-coagulantStart: 15-56-7340ekfvwu 5000 [IU] by subcutaneous injection every eight hours5,000 Units, subcutaneous, Every 8 hours, First dose on 06/02/23 at 0000, Phase II/On Unitibuprofen 800 mg oral tablet (9 sources)Nonsteroidal Anti-inflammatory DrugStart: 49-07-4457cfda 1 tablet by mouth three times dailyIbuprofen Active 1 TAB PO Three times daily November 11, 2018 11:00pminsulin lispro 100 unt/ml injectable solution (1 source)Insulin AnalogStart: -5 Units, subcutaneous, 3 times daily with meals, First dose on 06/02/23 at 0800, Phase II/On Unit Insulin Lispro Corrective Scale #1 Hypoglycemia protocol [...] if Blood Glucose is greater than 400 mg/dLleflunomide 20 mg oral tablet (20 sources)Antirheumatic AgentStart: 87-44-2829cezf 1 tablet by mouth once dailyleflunomide (Arava) 20 mg tablet Indications: Psoriatic arthritis (Multi) Take 1 tablet (20 mg) by mouth once daily. DO NOT RESUME UNTIL 06/15/2023 Do not start before June 15, 2023. 06/15/2023 ActiveStart: 05-66-4161tgli 1 tablet by mouth once dailyleflunomide (Arava) 20 mg tablet Indications: Psoriatic arthritis (CMS/HCC) Take 1 tablet (20 mg) by mouth once daily. DO NOT RESUME UNTIL 06/15/2023 Do not start before June 15, 2023. 0 06/15/2023 ActiveStart: 11-12-2018 End: 42-36-2250rvdi 1 tablet by mouth once dailyLeflunomide Active 1 TAB PO Daily November 11, 2018 11:00pmlidocaine 0.04 mg/mg medicated patch (2 sources)Antiarrhythmic, Amide Local AnestheticStart: 06-07-2023 End: 03-68-0565ytprz 1 dose transdermal route every twelve hours [...] 07, 2023. 7 patch 0 06/07/2023 06/14/2023 ActiveStart: 06-01-2023 apply 1 dose transdermal route once daily1 patch, transdermal, Administer over 12 Hours, Daily, First dose on Sun06/01/23 at 2000, Phase II/On Unit Apply to low back. Patch will remain on for 12 hours, then removed for 12 hours. Do NOT placepatch directly over any surgical incisions or wounds.losartan potassium 25 mg oral tablet (12 sources)Angiotensin 2 Receptor BlockerStart: 75-33-1891rvkc 1 tablet by mouth once dailylosartan (Cozaar) 25 MG tablet Indications: Essential hypertension TAKE 1 TABLET(25 MG) BY MOUTH DAILY 90 tablet 3 10/17/2023 Active metFORMIN hydrochloride 1000 mg oral tablet (20 sources)BiguanideStart: 39-19-5325wulk 1 tablet by mouth twice daily metFORMIN (Glucophage) 1000 MG tablet Indications: Essential hypertension TAKE 1 TABLET BY MOUTH TWICE DAILY 180 tablet 3 06/09/2024 ActiveStart: 93-66-4550emfc 1 tablet by mouth twice dailymetFORMIN (Glucophage) 1000 MG tablet Indications: Essential hypertension (CMS/HCC) TAKE 1 TABLET BY MOUTH TWICE DAILY 180 tablet 3 05/09/2023 ActiveStart: 73-82-4758yich 1 tablet by mouth once dailyMetformin Active 1 TAB PO Daily November 11, 2018 11:00pmmethotrexate 2.5 mg oral tablet (20 sources)Folate Analog Metabolic InhibitorStart: 32-95-6261yfet 3 tablets by mouth every weekmethotrexate (Trexall) 2.5 mg tablet Indications: Psoriatic arthritis (Multi) Take 3 tablets (7.5 mg total) by mouth 1 (one) time per week. Follow directions carefully, and ask to explain any part you do not understand. Take exactly as directed. Takes on Sunday. DO NOT RESUME UNTIL 06/15/2023 024 ActiveStart: 15-11-2632awdv 3 tablets by mouth every weekmethotrexate (Trexall) 2.5 mg tablet Indications: Psoriatic arthritis (CMS/HCC) Take 3 tablets (7.5mg total) by mouth 1 (one) time per week. Follow directions carefully, and ask to explain any part you do not understand. Take exactly as directed. Takes on Sunday. DO NOT RESUME UNTIL 06/15/2023 0 06/15/2023 Active Start: 11-12-2018 End: 00-23-9918qdov 2.5 mg by mouth once dailyMethotrexate Sodium Active 2.5 MG PO Daily May 22, 2019 12:00am End: 17-29-8802ofez 3 tablets by mouth every weekmethotrexate 2.5 MG tablet Take 7.5 mg by mouth 1 (one) time per week. Follow directions carefully,and ask to explain any part you do not understand. Take exactly as directed. Active methotrexate (Trexall) 2.5 mg tablet Take by mouth 1 (one) time per week. Follow directions carefully, and ask to explain any part you do not understand. Take exactly as directed. 0 ActiveNaloxone (2 sources)Opioid AntagonistStart: .2 mg, intravenous, As needed, respiratory depression, Once PRN patient is unarousable, and respiratory rate less than 8, Starting on Sun06/01/23 at 1932, Phase II/On Unit HOLD W[employer] PRODUCTS INSPECTOR Infusion and notify H.O. immediatelyStart: .2 mg, intravenous, Every 5 min PRN, respiratory depression, Starting on Sun06/01/23 at 1932, PhaseII/On Unit If respiratory rate is less than 8 breaths/minute or patient is difficult to arouse stopany narcotics and contact physician. Administer slow IV push. Repeat as ordered until patient's respiratory rate is greater than 12 breaths/minute. Ondansetron (1 source)Serotonin-3 Receptor AntagonistStart: 93-95-0296wzsv 1 tablet by mouth every eight hours as neededondansetron (Zofran) tablet 4 mgoxygen (O2) therapy (2 sources)Start: 92-27-6264jcgsnamhsa, Continuous PRN - O2/gases, other, Starting on Sun06/01/23 at 1932, Phase II/On Unit Titrate supplemental oxygen to maintain SpO2 greater than or equal to 92 Device: Nasal Cannula Rate in liters per minute: 2 LPM Keep O2 Sat Above: 92%Start: 06-01-2023 End: 35-41-9241ovadcr (O2) therapypioglitazone 45 mg oral tablet (20 sources)Peroxisome Proliferator Receptor alpha Agonist, Peroxisome Proliferator Receptor gamma Agonist, ThiazolidinedioneStart: 47-92-3114sonk 1 tablet by mouth in the morningpioglitazone (Actos) 45 MG tablet Indications: Type 2 diabetes mellitus with hyperglycemia, withoutlong-term current use of insulin (HCC) TAKE 1 TABLET(45 MG) BY MOUTH IN THE MORNING 90 tablet 3 07/24 ActiveStart: 16-20-5502iypq 1 tablet by mouth in the morningpioglitazone (Actos) 45 MG tablet Indications: Type 2 diabetes mellitus with hyperglycemia, withoutlong-term current use of insulin (CMS/HCC) TAKE 1 TABLET(45 MG) BY MOUTH IN THE MORNING 90 tablet ActiveStart: 10-44-1764acpy 1 tablet by mouth once dailyPioglitazone Active 1 TAB PO Daily November 11, 2018 11:00pm polyethylene glycol 3350 11784 mg powder for oral solution (2 sources)Osmotic LaxativeStart: 06-01-2023 End: 86-28-8729jqdgqxxyzwli glycol (Glycolax, Miralax) packet 17 gpredniSONE 50 mg oral tablet (3 sources)Start: 07-16-2024 End: 16-52-0601xhlz 1 tablet by mouth once dailypredniSONE (Deltasone) 50 MG tablet Indications: Lumbar spondylosis Take 1 tablet (50 mg) by mouth Daily for 6 days 6 tablet 07/16/2024 07/22/2024 ActivePromethazine (1 source)PhenothiazineStart: 60-25-0071zwoo 1 tablet by mouth every six hours as neededpromethazine (Phenergan) tablet 25 qp4141 ml sodium chloride 9 mg/ml injection (1 source)Start: 66-88-1073jihx 100 mL intravenously every eipf784 mL/hr, intravenous, Continuous, Starting on Sun06/01/23 at 2000, Phase II/On Unit Convert IV to saline lock when taking oral fluids.triamcinolone acetonide 5 mg/ml topical cream (19 sources)CorticosteroidStart: 63-46-8686kfzcegqmwgozw (Kenalog) 0.5 % cream Indications: Flexural psoriasis Apply topically 3 (three) timesa day 60 g 3 04/16/2023 ActiveStart: 25-61-7375Urwzbsw -40 mg Nov, 40 mgVitamin D3 (7 sources)Vitamin D3 Active Completed/Discontinued Medications MedicationDrug Class(es)DatesSig (Normalized)Sig (Original)calcium chloride 0.0014 meq/ml / potassium chloride 0.004 meq/ml / sodium chloride 0.103 meq/ml / sodium lactate 0.028 meq/ml injectable solution (1 source)Start: 06-01-2023 End: 98-33-3280svmylnny Ringer's infusion1 ml HYDROmorphone hydrochloride 1 mg/ml cartridge (1 source)Opioid AgonistStart: 06-01-2023 End: 61-21-0701EPORCvzcpnpsk (Dilaudid) injection 0.5 mghydromorphone W[employer]ODUCTS INSPECTOR 0.5 mg/mL in NS opioid naive (1 source)Start: 06-01-2023 End: 75-44-0641Rudab Loading Dose: Not Ordered Patient Bolus Dose: 0.2 mg Lockout Interval: 10 Minutes Basal Rate:0 mg/hr One Hour Dose Limit: 1.2 mg intravenous, Continuous, Starting on Sun06/01/23 at 2000, Phase II/On Unit1 ml ketorolac tromethamine 30 mg/ml injection (1 source)Nonsteroidal Anti-inflammatory Drug, Cyclooxygenase InhibitorStart: 06-02-2023 End: 30-62-704187 mg, intravenous, Every 8 hours scheduled, First dose on Sun06/02/23 at 0600, For 3 days Do not administer within 6 hours of other NSAIDs (such as ibuprofen or naproxen).oxyCODONE hydrochloride 5 mg oral tablet (3 sources)Opioid AgonistStart: 06-02-2023 End: 54-15-8448hrad 1 tablet by mouth every four hours as neededoxyCODONE (Roxicodone) immediate release tablet 10 mgStart: 06-02-2023 End: 77-20-8196wvia 1 tablet by mouth every six hours for painoxyCODONE (Roxicodone) 5 mg immediate release tablet Indications: Postoperative pain Take 1 tablet (5 mg) by mouth every 6 hours if needed for moderate pain (4 - 6) or severe pain (7 - 10) for up to 7 days. ICD 10: G89.18 28 tablet 0 06/06/2023 06/13/2023 Activemicroencapsulated potassium chloride 20 meq extended release oral tablet (3 sources)Start: 06-06-2023 End: 42-49-3071bemthcdsp chloride CR (Klor-Con M20) ER tablet 40 mEqStart: 06-02-2023 End: 11-92-7056ranptaocp chloride CR (Klor-Con M20) ER tablet 40 mEqStart: 06-01-2023 End: 90-80-9070znwruvbtc chloride 20 mEq in 100 mL IV premixtiZANidine 4 mg oral tablet (9 sources)Central alpha-2 Adrenergic AgonistStart: 11-12-2018 End: 10-92-0596djxg 4 mg by mouth once daily at bedtimeTizanidine Discontinued 4 MG PO Daily at bedtime November 11, 2018 11:00pm February 07, 2023 8:47amtake 1 tablet by mouth every eight hourstiZANidine HCl 4 MG 1 tablet as needed Orally Three times a day Not-Taking/PRN Problems Active Problems Problem ClassificationProblemDateDocumented DateEpisodic/ChronicDiabetes mellitus with complications (20 sources)Type 2 diabetes mellitus with hyperglycemia; 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: [Diabetic - poor control]Onset: 69-10-4808QayiupdIzxlltmi mellitus without complication (7 sources)Type 2 diabetes mellitus; 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: [Type 2 diabetes mellitus without complications]ChronicEssential hypertension (20 sources)Essential hypertension; 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: [Essential (primary) hypertension]Onset: 942279-53-0018GqybqyuYoylp acquired deformities (2 sources)Scoliosis of lumbar spine; 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: [Other forms of scoliosis, lumbar region]ChronicOther acquired deformities (1 source)Other forms of scoliosis, lumbar regionChronicOther acquired deformities (10 sources)Acquired deformity of spine; 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: [Other specified deforming dorsopathies, site unspecified]Onset: 875101-01-2275RspvckyDwnvl acquired deformities (16 sources)Other secondary scoliosis, thoracolumbar region; 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: [Scoliosis associated with other conditions]Onset: 676753-22-8475Mzymqql Other acquired deformities (2 sources)Other specified deforming dorsopathies, site unspecified; 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: [Other specified deforming dorsopathies, site unspecified]Onset: 90-47-4833GpiphzvIpvid aftercare (1 source)Other exterminator (current) drug therapy; 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: [OTH EXPLOSIVE OPERATOR BOMB CURRENT DRUG THERAPY]Onset: 48-03-3301VwnzkzuvBrfwe aftercare (1 source)Surgical follow-up; 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: [Encounter for follow-up examination after completed treatment for conditions other than malignant neoplasm] 51-70-3678MmozeomeTmjfk bone disease and musculoskeletal deformities (7 sources)Other specified disorders of bone, other site; 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: [Iliac crest bone pain]EpisodicOther connective tissue disease (2 sources)History of lumbar fusion; 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: [Arthrodesis status] 41-89-5386ZvlsntxnYbkkd connective tissue disease (2 sources)Arthrodesis status; 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: [Arthrodesis status]Onset: 11-88-9857JirscfphLncrf gastrointestinal disorders (1 source)Drug-induced constipation; 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: [Drug induced constipation] 78-24-0095VlwgckqgUvqgh inflammatory condition of skin (4 sources)Other psoriatic arthropathy; 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: [OTHER PSORIATIC ARTHROPATHY]Onset: 86-15-4243YfnkgvjHkdle inflammatory condition of skin (20 sources)Psoriatic arthritis; 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: [Arthropathic psoriasis, unspecified]Onset: 546700-07-0078FbzddrnRnarv inflammatory condition of skin (20 sources)Flexural psoriasis; 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]Onset: 04-16-2023 85-45-3821IzvrfdiRkfrq inflammatory condition of skin (8 sources)Psoriasis; 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: [Psoriasis, unspecified]Onset: 04-30-2023 43-23-6565LnnewzpAdidl inflammatory condition of skin (2 sources)Arthropathic psoriasis, unspecified; 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: [Arthropathic psoriasis, unspecified (Multi)]Onset: 35-54-9463YlufuziXdqrk nervous system disorders (15 sources)Chronic pain; 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: [Other chronic pain]Onset: 04-30-2023 15-59-5372IuvefkqCxkqe nervous system disorders (2 sources)Other chronic painChronicOther nervous system disorders (1 source)Other chronic pain; 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: [Other chronic pain]Onset: 35-72-1819EofxhnmBhwyb nervous system disorders (1 source)Postoperative pain ; 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: [Other acute postprocedural pain] 36-17-7778SuivzkdjYyksd nutritional; endocrine; and metabolic disorders (7 sources)Cholesterol level - finding; 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: [Lipoprotein deficiency] ChronicOther nutritional; endocrine; and metabolic disorders (8 sources)Lipoprotein deficiency disorder; 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: [Lipoprotein deficiency]Onset: 279234-35-6043BxjtfhyYbhtv nutritional; endocrine; and metabolic disorders (12 sources)Body mass index 30+ - obesity; 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: [Obesity, unspecified] Onset: 878963-53-4260TeivvubVzwapqnm codes; unclassified (2 sources)Other specified postprocedural states; 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: [Other specified postprocedural states]Onset: 98-16-3501ZhkzwnaxXltblmkszfi; intervertebral disc disorders; other back problems (20 sources)Lumbosacral spondylosis; 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: [Spondylosis without myelopathy or radiculopathy, lumbosacral region]Onset: 27-70-3226Rqiquxn Unclassified (1 source)Pain in right hip; 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: [Pain in right hip]Onset: 10-16-2022 Unclassified (9 sources)Patient has spine surgeryOnset: Past or Other Problems Problem ClassificationProblemDateDocumented DateEpisodic/ChronicCancer of prostate (8 sources)Malignant tumor of prostate; 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: [Malignant neoplasm of prostate]Onset: 09-15-2021 Resolved: 381276-97-4669UfhgxbvAnoal aftercare (19 sources)Long-term current use of drug therapy; 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: [Other exterminator (current) drug therapy]Onset: 002227-48-1762BqkfgttnUqlyy aftercare (2 sources)Encounter for follow-up examination after completed treatment for conditions other than malignant neoplasm; 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: [Encounter for follow-up examination after completed treatment for conditionsother than malignant neoplasm]Onset: 87-80-4805RtioijvcTphhw bone disease and musculoskeletal deformities (8 sources)Bone pain; 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: [Other specified disorders of bone, other site]Onset: 598372-84-3629WlurqexwVbnhb connective tissue disease (15 sources)Muscle pain; 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: [Myalgia, other site]Onset: 04-30-2023 20-67-2653BdlbzynrVtetb connective tissue disease (8 sources)Pain in left lower limb; 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: [Pain in left leg]Onset: 499251-75-5831FlvicacsEdido gastrointestinal disorders (2 sources)Drug induced constipation; 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: [Drug induced constipation] Onset: 35-51-7173PvesxpcrHpcbg nervous system disorders (2 sources)Other acute postprocedural pain; 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: [Other acute postprocedural pain]Onset: 46-06-0100IjigyxaeFsgst non-traumatic joint disorders (20 sources)Pain in right hip joint; 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: [Pain in right hip]Onset: 848335-27-6883ZjliqgysAsbsk non-traumatic joint disorders (2 sources)Hip pain; 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: [Pain in right hip]Onset: 10-16-2022 24-51-0509HjtabqfqAfdsx screening for suspected conditions (not mental disorders or infectious disease) (13 sources)Encounter for screening for malignant neoplasm of prostate; 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: [Patient encounter status]Onset: 590903-21-4952Lhjpjnok Residual codes; unclassified (3 sources)Patient encounter status; 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: [Encounter for procedure for purposes other than remedying health state, unspecified]Onset: 10-17-2023 78-29-3140XbkwfvflFktbotrq codes; unclassified (10 sources)H/O Spinal surgery; 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: [Other specified postprocedural states]Onset: 387811-29-2497AddjpehyMepahttp codes; unclassified (2 sources)Encounter for procedure for purposes other than remedying health state, unspecified; 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: [Encounter for procedure for purposes other than remedying health state, unspecified]Onset: 00-18-6437NlfsssrmCqaegngsfqu; intervertebral disc disorders; other back problems (20 sources)Lumbar radiculopathy; 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: [Radiculopathy, lumbar region] Onset: 64-77-9719MtdwiqncNotlodtplbhu (2 sources)Onset: Results Test NameValueInterpretationReference RangeFacilityALL CBC WITH AUTO DIFFon 29-28-9109HPEJKYYUA ABSOLUTE [id number] HealthcareBasophils/100 WBC (Bld)0.6 %0.2 - 2.0 %NOMS HealthcareEosinophils/100 WBC (Bld)2.6 %0.9 - 7.0 %[facility] Erythrocyte distribution width (RBC) [Ratio]14.6 %11.0 - 15.0 %[facility] Hematocrit (Bld) [Volume fraction]44.2 %42.0 - 54.0 %[facility] InstituteHemoglobin (Bld) [Mass/Vol]14.5 g/dL14.0 - 18.0 g/dLFreeman Cancer InstituteIMMATURE GRANULOCYTES ABS AUTO0.01NOKindred HospitalImmature granulocytes/100 WBC (Bld)0.2 %0.0 - 0.5 % [facility] InstituteLYMPHOCYTES ABSOLUTE AUTO1.3NOKindred HospitalLymphocytes/100 WBC (Bld)25.5 %20.5 - 60.0 %[facility] CenterH (RBC) [Entitic mass]28.8 pg25.9 - 34.0 pgParkland Health CenterHC (RBC) [Mass/Vol]32.8 g/dL29.9 - 35.2 g/dLParkland Health CenterV (RBC) [Entitic vol]87.9 fL80.0 - 94.0 fLFreeman Cancer InstituteMONOCYTES ABSOLUTE AUTO0.5NOKindred HospitalMonocytes/100 WBC (Bld)10.8 %1.7 - 12.0 %[facility] InstituteNEUTROPHILS ABSOLUTE DMKW6XOUSFreeman Cancer InstituteNeutrophils/100 WBC (Bld)60.3 %43.0 - 75.0 %[facility] InstitutePlatelet mean volume (Bld) [Entitic vol]10.7 fL9.5 - 13.5 fLFreeman Cancer InstituteTB EO #0.1NOMS [facility] [id number] County Memorial Hospital RBC5.03NOPike County Memorial Hospital PHF3ORVYKindred HospitalCLINISYNCNDoctors Hospital of SpringfieldMLR HEMOGLOBIN A1Con 49-12-4765Knycjtc [Mass/Vol]137 mg/dLFreeman Cancer InstituteHbA1c (Bld) [Mass fraction]6.4 %High4.5 - 6.2 %[facility] InstituteComment on above:ADA RECOMMENDED LIMIT 4.0 - 6.0 ADA THERAPEUTIC TARGET < 7.0 ACTION SUGGESTED > 7.0 Interpretation and review of laboratory resultsAbnormalFreeman Cancer InstituteCLINISYNC [facility] InstituteALL CBC WITH AUTO DIFFon 50-02-0174FNDEAXCZO ABSOLUTE MFQX4VBKX HealthcareBasophils/100 WBC (Bld)0.7 %0.2 - 2.0 %NOMS HealthcareEosinophils/100 WBC (Bld)2.3 %0.9 - 7.0 %NOMS HealthcareErythrocyte distribution width (RBC) [Ratio]14.9 %11.0 - 15.0 %NOMS HealthcareHematocrit (Bld) [Volume fraction]42.2 %42.0 - 54.0 %NOMMercy Hospital SpringfieldHemoglobin (Bld) [Mass/Vol]13.7 g/dLLow14.0 - 18.0 g/dLFreeman Cancer InstituteIMMATURE GRANULOCYTES ABS AUTO0.01NOKindred HospitalImmature granulocytes/100 WBC (Bld)0.2 %0.0 - 0.5 %[facility] InstituteInterpretation and review of laboratory resultsAbnormalNOKindred HospitalLYMPHOCYTES ABSOLUTE AUTO1.8 NOMMercy Hospital SpringfieldLymphocytes/100 WBC (Bld)30.4 %20.5 - 60.0 %[facility] CenterH (RBC) [Entitic mass]28.7 pg25.9 - 34.0 pgParkland Health CenterHC (RBC) [Mass/Vol] 32.5 g/dL29.9 - 35.2 g/dLFreeman Cancer InstituteMCV (RBC) [Entitic vol]88.3 fL80.0 - 94.0 fLFreeman Cancer InstituteMONOCYTES ABSOLUTE AUTO0.5NOKindred HospitalMonocytes/100 WBC (Bld)8.2 %1.7 - 12.0 %NOM HealthcareNEUTROPHILS ABSOLUTE AUTO3.5NOKindred Hospital Neutrophils/100 WBC (Bld)58.2 %43.0 - 75.0 %NOMMercy Hospital SpringfieldPlatelet mean volume (Bld) [Entitic vol]10.7 fL9.5 - 13.5 fLNOKindred HospitalTBH EO #0.1[facility] TBH [id number] [facility] InstituteTB RBC4.78NOMS [facility] InstituteTB GQS3NLCKKindred Hospital CLINISYNCNONV HealthcareXR SCOLIOSIS SERIES 2 TO 3 VIEWSon 13-16-3633Movsop do both AP and lateral views. ( Total of 2 views ) Please have the patient standing without assistance of any kind and with knees in neutral position. The patient should stand relaxed, bend their elbows, and place their fists on the ipsilateral clavicles. Source Facility: [facility] Interpreted By: Austen Bass, STUDY: XR FULL SPINE 2 VIEW SCOLIOSIS; ; 05/27/2024 10:44 am INDICATION: Signs/Symptoms:Lumbar Stenosis for assesment of alignment. 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 Mild broad lumbar levocurvature. L2 posterior fusion to the bilateral iliac bones. Discectomies at L4-L5 and L5-S1. Mild to moderate multilevel spondylosis. Mild to moderate bilateral hip osteoarthrosis. The soft tissues are unremarkable. IMPRESSION: Mild lumbarlevocurvature. This is unchanged. Postsurgical changes, as above. MACRO: None Signed by: Austen Bass 05/28/2024 3:45 PM Dictation workstation: [id number], Radiologist, - 05/28/2024 Please do both AP and lateral views. ( Total of 2 views ) Please have the patient standing without assistance of any kind and with knees in neutral position. The patient should stand relaxed, bend their elbows, and place their fists on the ipsilateral clavicles. Source Facility: [facility] Interpreted By: Austen Bass, STUDY: XR FULL SPINE 2 VIEW SCOLIOSIS; ; 05/27/2024 10:44 am INDICATION: Signs/Symptoms:Lumbar Stenosis for assesment of alignment. 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 Mild broad lumbar levocurvature. L2 posterior fusion to the bilateral iliac bones. Discectomies at L4-L5 and L5-S1. Mild to moderate multilevel spondylosis. Mild to moderate bilateral hip osteoarthrosis. The soft tissues are unremarkable. IMPRESSION: Mild lumbarlevocurvature. This is unchanged. Postsurgical changes, as above. MACRO: None Signed by: Austen Bass 05/28/2024 3:45 PM Dictation workstation: [id number] [facility] HealthcareXR SCOLIOSIS SERIES 2 TO 3 VIEWSOrdered By: Radiologist Radiology on 67-37-2845[facility] Work Phone: XR FULL SPINE 2 VIEW SCOLIOSISon [id number] FULL SPINE 2 VIEW SCOLIOSISInterpreted By: Austen Bass, STUDY: XR FULL SPINE 2 VIEW SCOLIOSIS; ; 05/27/2024 10:44 am INDICATION: Signs/Symptoms:Lumbar Stenosis for assesment of alignment. 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 Mild broad lumbar levocurvature. L2 posterior fusion to the bilateral iliac bones. Discectomies at L4-L5 and L5-S1. Mild to moderate multilevel spondylosis. Mild to moderate bilateral hip osteoarthrosis. The soft tissues are unremarkable. IMPRESSION: Mild lumbarlevocurvature. This is unchanged. Postsurgical changes, as above. MACRO: None Signed by: Austen Bass 05/28/2024 3:45 PM Dictation workstation: [id number]d Clinic Euclid HospitalComment on above:Order Comment: Please do both AP and lateral views. ( Total of 2 views ) Please have the patient standing without assistance of any kind and with knees in neutral position. The patient should stand relaxed, bend their elbows, and place their fists on the ipsilateral clavicles.XR SCOLIOSIS SERIES 2 TO 3 VIEWSon 84-43-2547Tpmwoqvvo Study observation (narrative)NOMS HealthcareALL CBC WITH AUTO DIFFon 32-73-9516WLKUHLXZF ABSOLUTE AUTO0.1NOMS HealthcareBasophils/100 WBC (Bld)0.7 %0.2 - 2.0 %NOMS HealthcareEosinophils/100 WBC (Bld)1.7 %0.9 - 7.0 %NOMS HealthcareErythrocyte distribution width (RBC) [Ratio]15.8 %High11.0 - 15.0 %NOMS HealthcareHematocrit (Bld) [Volume fraction] 40.9 %Low42.0 - 54.0 %[facility] InstituteHemoglobin (Bld) [Mass/Vol]13.1 g/dLLow14.0 - 18.0 g/dLFreeman Cancer InstituteIMMATURE GRANULOCYTES ABS AUTO0.01NOMS [facility] Immature granulocytes/100 WBC (Bld)0.1 %0.0 - 0.5 %[facility] InstituteInterpretation and review of laboratory resultsAbnormalNONV HealthcareLYMPHOCYTES ABSOLUTE AUTO1.7NOKindred HospitalLymphocytes/100 WBC (Bld)23.1 %20.5 - 60.0 %[facility] CenterH (RBC) [Entitic mass]28.4 pg25.9 - 34.0 pgNOScotland County Memorial HospitalHC (RBC) [Mass/Vol]32 g/dL29.9 - 35.2 g/dLFreeman Cancer InstituteMCV (RBC) [Entitic vol]88.7 fL 80.0 - 94.0 fLFreeman Cancer InstituteMONOCYTES ABSOLUTE AUTO0.6NOKindred Hospital Monocytes/100 WBC (Bld)8.8 %1.7 - 12.0 %[facility] InstituteNEUTROPHILS ABSOLUTE AUTO 4.7NOMS [facility] InstituteNeutrophils/100 WBC (Bld)65.6 %43.0 - 75.0 %[facility] Platelet mean volume (Bld) [Entitic vol]10.5 fL9.5 - 13.5 fLFreeman Cancer InstituteTB EO #0.1NOMS [facility] InstituteTB [id number] [facility] RBC4.61LowNOMS [facility] WBC7.2NOMS HealthcareCLINISYNCNLINDSAY MUNICIPAL HOSPITAL [facility]Y HealthcareALL SED RATEon 42-77-1084SJF SED SGSF57IODLCTEY HealthcareCLINISYNCNDoctors Hospital of SpringfieldCCF CMP (CMP) (FOR REMOTE [facility] USE)on 10-43-0371Zcjlkcl [Mass/Vol]3.8 g/dL3.4 - 5.0 g/dLNOKindred HospitalALBUMIN GLOBULIN [id number] HealthcareALP [Catalytic activity/Vol]99 U/L46 - 116 U/LNOMS HealthcareALT [Catalytic activity/Vol]33 U/L16 - 63 U/LNOMS HealthcareAnion gap [Moles/Vol]12.2 mmol/LNOMS HealthcareAST [Catalytic activity/Vol]23 U/L15 - 37 U/LNOMS HealthcareBilirubin [Mass/Vol]0.3 mg/dL0.2 - 1.0 mg/dLNOMS Healthcare Calcium [Mass/Vol]9.1 mg/dL8.5 - 10.1 mg/dLNOMS HealthcareChloride [Moles/Vol] 106 mmol/L98 - 107 mmol/LNOMS HealthcareCO2 [Moles/Vol]26.4 mmol/L21.0 - 32.0 mmol/LNOMS HealthcareCreatinine [Mass/Vol]0.92 mg/dL0.70 - 1.30 mg/dLNOMS HealthcareGFR/1.73 sq M.predicted CKD-EPI (S/P/Bld) [Vol rate/Area]>60>=60 mL/min/1.73m 2NOMS HealthcareGlobulin (S) [Mass/Vol]3.7 g/dLNOMS Healthcare Glucose [Mass/Vol]85 mg/dL74 - 106 mg/dLNONV HealthcarePotassium [Moles/Vol]3.6 mmol/L3.5 - 5.1 mmol/LNOMS HealthcareProtein [Mass/Vol]7.5 g/dL6.4 - 8.2 g/dL NOMS HealthcareSodium [Moles/Vol]141 mmol/L136 - 145 mmol/LNOMS HealthcareTBH EGFR-NON AF [place] CITIZEN>60>=60 mL/min/1.73m 2NOMS HealthcareUrea nitrogen [Mass/Vol]11 mg/dL7.0 - 18.0 mg/dLNONV HealthcareUrea nitrogen/Creatinine [Mass ratio]12 mg/mgNOMS HealthcareCLINISYNCNLINDSAY MUNICIPAL HOSPITAL – LINDSAY HealthcareALL CBC WITH AUTO DIFFon 68-09-3719HPLMGWBSE ABSOLUTE AUTO0.1NOMS HealthcareBasophils/100 WBC (Bld)0.7 % 0.2 - 2.0 %NOMS HealthcareEosinophils/100 WBC (Bld)2.8 %0.9 - 7.0 %NOMS HealthcareErythrocyte distribution width (RBC) [Ratio]16.7 %High11.0 - 15.0 % NOMS HealthcareHematocrit (Bld) [Volume fraction]39.3 %Low42.0 - 54.0 %NOMS HealthcareHemoglobin (Bld) [Mass/Vol]12.7 g/dLLow14.0 - 18.0 g/dLNOKindred Hospital IMMATURE GRANULOCYTES ABS AUTO0.01NOKindred HospitalImmature granulocytes/100 WBC (Bld)0.1 %0.0 - 0.5 %[facility] InstituteInterpretation and review of laboratory resultsAbnormalNOKindred HospitalLYMPHOCYTES ABSOLUTE AUTO2.1[facility] Lymphocytes/100 WBC (Bld)31.3 %20.5 - 60.0 %[facility] CenterH (RBC) [Entitic mass]27.3 pg25.9 - 34.0 pgParkland Health CenterHC (RBC) [Mass/Vol]32.3 g/dL29.9 - 35.2 g/dLParkland Health CenterV (RBC) [Entitic vol]84.3 fL80.0 - 94.0 fLFreeman Cancer InstituteMONOCYTES ABSOLUTE AUTO0.8NOKindred HospitalMonocytes/100 WBC (Bld)11.7 % 1.7 - 12.0 %[facility] InstituteNEUTROPHILS ABSOLUTE AUTO3.6NOMS [facility] Neutrophils/100 WBC (Bld)53.4 %43.0 - 75.0 %[facility] InstitutePlatelet mean volume (Bld) [Entitic vol]10.2 fL9.5 - 13.5 fLFreeman Cancer InstituteTB EO #0.2[facility] TBH [id number] [facility] InstituteTB RBC4.66LowNOMS [facility] InstituteTB WBC6.7NOKindred Hospital CLINISYNCNONV HealthcareXR SCOLIOSIS 2 VIEW (NON EOS)on 80-92-4698SS SCOLIOSIS 2 VIEW (NON EOS)Interpreted By: Carmenza Garcia, STUDY: XR SCOLIOSIS 2 VIEW (NON EOS) INDICATION: Signs/Symptoms:Lumbar Stenosis for assesment of alignment. COMPARISON: 07/10/2023 ACCESSION NUMBER(S): [id number] ORDERING CLINICIAN: ISHA VALENTINO FINDINGS: There is [...] is intact without perihardware fractures or lucencies. Jode-jp-bgsjeofl spondylosis noted at T12-L1 and L1-2. Chronic appearing compression deformity is noted of T12 vertebral body with mild anterior height loss. There is positive sagittal balance. No significant coronal balance. IMPRESSION: Postsurgical changes as described above without hardware complication. Mild S shaped thoracolumbar scoliosis. Positive sagittal balance MACRO: None. Signed by: Carmenza Garcia 08/16/2023 5:16 PM Dictation workstation: [id number] Clinic Euclid HospitalComment on above:Order Comment: Please do both AP and lateral views. ( Total of 2 views ) Please have the patient standing without assistance of any kind and with knees in neutral position. The patient should stand relaxed, bend their elbows, and place their fists on the ipsilateral clavicles.XR SCOLIOSIS 2 VIEW (NON EOS)on 96-30-7606TO SCOLIOSIS 2 VIEW (NON EOS)Interpreted By: Austen Bass, STUDY: XR SCOLIOSIS 2 VIEW (NON EOS); ; 07/10/2023 11:36 am INDICATION: Signs/Symptoms:post op. COMPARISON: 04/24/2023 ACCESSION NUMBER(S): [id number] ORDERING CLINICIAN: ISHA VALENTINO FINDINGS: Two views [...] Austen Bass 07/11/2023 3:27 PM Dictation workstation: [id number]d Clinic Euclid HospitalComment on above:Order Comment: Please do both AP and lateral views. ( Total of 2 views ) Please have the patient standing without assistance of any kind and with knees in neutral position. The patient should stand relaxed, bend their elbows, and place their fists on the ipsilateral clavicles.CBC panel Auto (Bld)on 43-25-2249Alyutjsmeqc distribution width (RBC) [Ratio]13.5 %11.5 - 14.5 %[facility] Medical CenterHematocrit (Bld) [Volume fraction]33.1 %Low 41.0 - 52.0 %[facility] CenterHemoglobin (Bld) [Mass/Vol]11.0 g/dLLow13.5 - 17.5 g/dLUC Medical CenterInterpretation and review of laboratory resultsAbnormalUZanesville City HospitalH (RBC) [Entitic mass]29.3 pg26.0 - 34.0 pgUC Medical CenterMCHC (RBC) [Mass/Vol]33.2 g/dL32.0 - 36.0 g/dLRegency Hospital CompanyV (RBC) [Entitic vol]88 fL80 - 100 fLUniMercer County Community HospitalNucleated RBC/100 WBC (Bld) [Ratio]0.0 %[facility] Medical CenterPlatelets (Bld) [#/Vol] 323 10*3/[facility] Medical CenterRBC (Bld) [#/Vol]3.75 10*6/German HospitalWBC (Bld) [#/Vol]6.3 10*3/[facility] Medical CenterUnPremier Health Upper Valley Medical CenterErythrocyte distribution width (RBC) [Ratio]13.5 %Odgtkk19.5-14.5[facility] Rittman Medical CenterComment on above:Performed By: #### 67171-0 #### PACHECO Ferraro ([id number]) [facility] ([facility]) [address] [place] [address] 31353Vfryclskik (Bld) [Volume fraction]33.1 %Low41.0-52.0 [facility] Rittman Medical CenterComment on above:Performed By: #### 01077-0 #### PACHECO Ferraro ([id number]) [facility] ([facility]) [address] [place] [address] 10578Nllhlqpblg (Bld) [Mass/Vol]11.0 g/dLLow13.5-17.5UnBrown Memorial HospitalComment on above:Performed By: #### 75941-7 #### PACHECO Ferraro ([id number]) [facility] ([facility]) [address] [place] [address] 09713ZPY (RBC) [Entitic mass]29.3 uzWsrcdp19.0-34.0[facility] - Rittman Medical CenterComment on above:Performed By: #### 58613-2 #### PACHECO Ferraro ([id number]) [facility] ([facility]) [address] [place], [place] [address]LTBF (RBC) [Mass/Vol]33.2 g/dUApwaxy41.0-36.0UnBrown Memorial HospitalComment on above:Performed By: #### 11153-6 #### PACHECO Ferraro ([id number]) [facility] ([facility]) [address] [place] [address] 12395OEJ (RBC) [Entitic vol]88 dOSzxwwz36-900NvwqmojsowBrown Memorial HospitalComment on above:Performed By: #### 95120-2 #### PACHECO Ferraro ([id number]) [facility] ([facility]) [address] [place] [address] 08255Huzhahsry RBC/100 WBC (Bld) [Ratio]0.0 /100 WBCsNormal0.0-0.0 [facility] Rittman Medical CenterComment on above:Performed By: #### 82368-5 #### PACHECO Ferraro ([id number]) [facility] ([facility]) [address] [place] [address] 53103Ytivknqti (Bld) [#/Vol]323 x10*3/sBIkunje970-564WngbttdnizBrown Memorial HospitalComment on above:Performed By: #### 10002-3 #### PACHECO Ferraro ([id number]) [facility] ([facility]) [address] [place] [address] 04764FQU (Bld) [#/Vol]3.75 x10*6/uLLow4.50-5.90UnBrown Memorial HospitalComment on above:Performed By: #### 56953-7 #### PACHECO Ferraro ([id number]) [facility] ([facility]) [address] [place] [address] 42754SOP (Bld) [#/Vol]6.3 x10*3/uLNormal4.4-11.3UnBrown Memorial HospitalComment on above:Performed By: #### 83829-0 #### PACHECO Ferraro ([id number]) [facility] ([facility]) [address] [place] [address] 00065Urwxyve Test strip manual (Bld) [Mass/Vol]on 06-06-2023 Glucose [Mass/Vol]207 mg/dJZrxq41 - 99 mg/dLUnPremier Health Upper Valley Medical Center Interpretation and review of laboratory resultsAbSt. Charles HospitalUnPremier Health Upper Valley Medical CenterGlucose [Mass/Vol]207 mg/uRCfit00-89 [facility] Ritt[facility] Medical CenterComment on above:Performed By: #### 56322-9 #### PACHECO Ferraro ([id number]) [facility] ([facility]) [address] [place] [address] 96290Jvpvcti [Mass/Vol]159 mg/gVCpza23 - 99 mg/dLUnPremier Health Upper Valley Medical CenterInterpretation and review of laboratory resultsAbOhioHealth Hardin Memorial HospitalUnPremier Health Upper Valley Medical CenterGlucose [Mass/Vol]159 mg/uTJoca27-14CxyuwmhcjwBrown Memorial HospitalComment on above:Performed By: #### 94476-2 #### PACHECO Ferraro ([id number]) [facility] ([facility] [address] [place] [address] 19029Yvbfi function 2000 panelon 81-31-7280Ktqsamd BCP dye [Mass/Vol]3.6 g/dL3.4 - 5.0 g/dLUnPremier Health Upper Valley Medical CenterAnion gap [Moles/Vol]13 mmol/L10 - 20 mmol/[facility] HealthCalcium [Mass/Vol]9.3 mg/dL8.6 - 10.6 mg/dLUnPremier Health Upper Valley Medical CenterChloride [Moles/Vol]100 mmol/L98 - 107 mmol/[facility] HealthCO2 [Moles/Vol]26 mmol/L21 - 32 mmol/[facility] HealthCreatinine [Mass/Vol]0.60 mg/dL0.50 - 1.30 mg/dLUnPremier Health Upper Valley Medical CentereGFR- PINF [facility] CenterComoaklawn hospital on above:Calculations of estimated GFR are performed using the 2020 CKD-EPI Study Refit equation without therace variable for the IDMS-Traceable creatinine methods. https://jasn.asnjournals.org/content//ASN.9657229618 Glucose [Mass/Vol]236 mg/jCQxgq93 - 99 mg/dLUnPremier Health Upper Valley Medical Center Interpretation and review of laboratory resultsAbnormalUniMercer County Community HospitalPhosphate [Mass/Vol]2.4 mg/dLLow2.5 - 4.9 mg/dLUnTrinity Health System West Campus on above:The performance characteristics of phosphorus testing in heparinized plasma have been validated by the individual laboratory site where testing is performed. Testing on heparinized plasma is not approved by the FDA; however, such approval is not necessary.Potassium [Moles/Vol]3.3 mmol/LLow 3.5 - 5.3 mmol/[facility] HealthSodium [Moles/Vol]136 mmol/L136 - 145 mmol/[facility] HealthUrea nitrogen [Mass/Vol]10 mg/dL6 - 23 mg/dLUnPremier Health Upper Valley Medical CenterUnPremier Health [facility] Center Albumin BCP dye [Mass/Vol]3.6 g/dLNormal3.4-5.0UnBrown Memorial HospitalComment on above:Performed By: #### 97665-3 #### PACHECO Ferraro ([id number]) [facility] ([facility]) [address] [place] [address] 67422Kykbh gap [Moles/Vol]13 mmol/EVfvbep35-01LvqqzjwhgoBrown Memorial HospitalComment on above:Performed By: #### 83131-3 #### PACHECO Ferraro ([id number]) [facility] ([facility]) [address] [place] [address] 19932Twotguv [Mass/Vol]9.3 mg/dLNormal8.6-10.6UnBrown Memorial HospitalComment on above:Performed By: #### 98581-6 #### PACHECO Ferraro ([id number]) [facility] ([facility]) [address] [place], [place] [address]Jevntybh [Moles/Vol]100 mmol/YXiltqe13-847UkvghbnpirBrown Memorial HospitalComment on above:Performed By: #### 83737-0 #### PACHECO Ferraro ([id number]) [facility] ([facility]) [address] [place], [place] [address]KF0 [Moles/Vol]26 mmol/SAytbwr96-88HidrepjykrSumma Health Wadsworth - Rittman Medical CenterComment on above:Performed By: #### 46458-1 #### PACHECO Ferraro ([id number]) [facility] ([facility]) [address] [place] [address] 35798Ssyjgpemun [Mass/Vol]0.60 mg/dLNormal0.50-1.30[facility] - Rittman Medical CenterComment on above:Performed By: #### 12012-4 #### PACHECO Ferraro ([id number]) [facility] ([facility]) [address] [place], [place] [address]CJZ/1.73 sq M.predicted MDRD (S/P/Bld) [Vol rate/Area] mL/min/{1.73_m2}Normal>60Sum[facility] - Rittman Medical CenterComment on above:Result Comment: Calculations of estimated GFR are performed using the 2020 CKD-EPI Study Refit equation without the race variable for the IDMS-Traceable creatinine methods. https://jasn.asnjournals.org/content/early//ASN.0691007014Zwyamonlv By: #### 27160-5 #### PACHECO Ferraro ([id number]) [facility] ([facility]) [address] [place], [place] [address]Jsmtdvt [Mass/Vol]236 mg/lYJmdk99-43RvyqanfjagSumma Health Wadsworth - Rittman Medical CenterComment on above:Performed By: #### 79105-9 #### PACHECO Ferraro ([id number]) [facility] ([facility]) [address] [place] [address] 99642Sftohjmlu [Mass/Vol]2.4 mg/dLLow2.5-4.9UnBrown Memorial HospitalComment on above:Result Comment: The performance characteristics of phosphorus testing in heparinized plasma have been validated by the individual laboratory site where testing is performed. Testing on heparinizedplasma is not approved by the FDA; however, such approval is not necessary.Performed By: #### 56230-8 #### PACHECO Ferraro ([id number]) [facility] ([facility]) [address] [place] [address] 99134Fhfmyapbh [Moles/Vol]3.3 mmol/LLow3.5-5.3UnBrown Memorial HospitalComment on above:Performed By: #### 96674-3 #### PACHECO Ferraro ([id number]) [facility] ([facility]) [address] [place] [address] 37239Xlnpfs [Moles/Vol]136 mmol/QDjywzm769-847HbcfznurshBrown Memorial HospitalComment on above:Performed By: #### 89206-5 #### PACHECO Ferraro ([id number]) [facility] ([facility]) [address] [place] [address] 49673Bvyk nitrogen [Mass/Vol]10 mg/dLNormal6-23UnBrown Memorial HospitalComment on above:Performed By: #### 37275-1 #### PACHECO Ferraro ([id number]) [facility] ([facility]) [address] [place] [address] 90429Bjxpjtl Test strip manual (Bld) [Mass/Vol]on 06-05-2023 Glucose [Mass/Vol]226 mg/qHGymd24 - 99 mg/dLUnPremier Health Upper [facility] Medical Center Interpretation and review of laboratory resultsAbnormalUniMercer County Community HospitalUnPremier Health Upper Valley Medical CenterGlucose [Mass/Vol]226 mg/bVXfwb02-08 [facility] Medical CenterComment on above:Performed By: #### [id number] #### PACHECO Ferraro ([id number]) [facility] ([facility]) [address] [place], [place] [address]Slkfzhr [Mass/Vol]160 mg/nLLfop96 - 99 mg/dLUnPremier Health Upper Valley Medical CenterInterpretation and review of laboratory resultsAbOhioHealth Hardin Memorial HospitalUnPremier Health [facility] Medical CenterGlucose [Mass/Vol]160 mg/mFJezo38-97ZjzdjvloasBrown Memorial HospitalComment on above:Performed By: #### [id number] #### PACHECO Ferraro ([id number]) [facility] ([facility]) [address] [place], [place] [address]Mowvmso [Mass/Vol]192 mg/lRNalx72 - 99 mg/dLUnPremier Health Upper Valley Medical CenterInterpretation and review of laboratory resultsAbOhioHealth Hardin Memorial HospitalUnPremier Health [facility] Valley Medical CenterGlucose [Mass/Vol]192 mg/vDIjeu64-97IyumlxtygaBrown Memorial HospitalComment on above:Performed By: #### 03426-9 #### PACHECO Ferraro ([id number]) [facility] ([facility]) [address] [place], [place] [address]Hdjmksy [Mass/Vol]163 mg/iNApip69 - 99 mg/dLUnPremier Health Upper Valley Medical CenterInterpretation and review of laboratory resultsAbOhioHealth Hardin Memorial HospitalUnPremier Health Upper Valley Medical CenterGlucose [Mass/Vol]163 mg/gXRche10-59FkfxltglgvBrown Memorial HospitalComment on above:Performed By: #### 75027-2 #### PACHECO Ferraro ([id number]) [facility] ([facility]) [address] [place], [place] [address]Anaea metabolic 2000 panelon [id number] gap [Moles/Vol] 12 mmol/L10 - 20 mmol/Kettering HealthCalcium [Mass/Vol]8.4 mg/dLLow8.6 - 10.6 mg/dLUC Medical CenterChloride [Moles/Vol]102 mmol/L98 - 107 mmol/[facility]tering HealthCO2 [Moles/Vol]28 mmol/L 21 - 32 mmol/[facility] HealthCreatinine [Mass/Vol]0.56 mg/dL 0.50 - 1.30 mg/dLUnPremier Health Upper Valley Medical CentereGFR- PINFUniMercer County Community HospitalComment on above:Calculations of estimated GFR are performed using the 2020 CKD-EPI Study Refit equation without therace variable for the IDMS- Traceable creatinine methods. https://jasn.asnjournals.org/content//ASN.5404495692 Glucose [Mass/Vol]235 mg/iFCwme67 - 99 mg/dLUnPremier Health Upper Valley Medical Center Interpretation and review of laboratory resultsAbnoOhio Valley Surgical HospitalPotassium [Moles/Vol]3.4 mmol/LLow3.5 - 5.3 mmol/[facility]tering HealthSodium [Moles/Vol]139 mmol/L136 - 145 mmol/K[facility]tering HealthUrea nitrogen [Mass/Vol]14 mg/dL6 - 23 mg/dLUnPremier Health Upper Valley Medical CenterAnion gap [Moles/Vol]12 mmol/XGsyuuy51-29FotsicrqdxBrown Memorial HospitalComment on above:Performed By: #### 92955-9 #### PACHECO Ferraro ([id number]) [facility] ([facility]) [address] [place], [place] [address]Elimsad [Mass/Vol]8.4 mg/dLLow8.6-10.6UnBrown Memorial HospitalComment on above:Performed By: #### 56960-5 #### PACHECO Ferraro (79581) [facility] ([facility]) [address] [place], [place] [address]Jcafpwgr [Moles/Vol]102 mmol/NVnpavl81-050NxlwrrbdezBrown Memorial HospitalComment on above:Performed By: #### 59785-6 #### PACHECO Ferraro ([id number]) [facility] ([facility]) [address] [place], [place] [address]UC3 [Moles/Vol]28 mmol/LIoywmg82-62QtyrkollofBrown Memorial HospitalComment on above:Performed By: #### 61366-6 #### PACHECO Ferraro ([id number]) [facility] ([facility]) [address] [place], [place] [address]Ixvzxnullm [Mass/Vol]0.56 mg/dLNormal0.50-1.30Sum[facility] - Rittman Medical CenterComment on above:Performed By: #### 01852-0 #### PAHCECO Ferraro ([id number]) [facility] ([facility]) [address] [place], [place] [address]XSN/1.73 sq M.predicted MDRD (S/P/Bld) [Vol rate/Area] mL/min/{1.73_m2}Normal>60UnBrown Memorial HospitalComment on above:Result Comment: Calculations of estimated GFR are performed using the 2020 CKD-EPI Study Refit equation without the race variable for the IDMS-Traceable creatinine methods. https://jasn.asnjournals.org/content//ASN.3272483908Ffrublklb By: #### 68939-7 #### PACHECO Ferraro ([id number]) [facility] ([facility]) [address] [place], [place] [address]Yagmbke [Mass/Vol]235 mg/yGAnvb53-73PtlxoasdyzBrown Memorial HospitalComment on above:Performed By: #### 74150-1 #### PACHECO Ferraro (51007) [facility] ([facility]) [address] [place], [place] [address]Uxryjjxwa [Moles/Vol]3.4 mmol/LLow3.5-5.3Sum[facility] W[facility] - Rittman Medical CenterComment on above:Performed By: #### 07765-1 #### PACHECO Ferraro (05197) [facility] ([facility]) [address] [place], [place] [address]Scnbmr [Moles/Vol]139 mmol/IRnscyk990-005DgenwtniktBrown Memorial HospitalComment on above:Performed By: #### 21819-8 #### PACHECO Ferraro (56192) [facility] ([facility]) [address] [place], [place] [address]Dbaj nitrogen [Mass/Vol]14 mg/dLNormal6-23Sum[facility] - Rittman Medical CenterComment on above:Performed By: #### 98087-6 #### PACHECO Ferraro ([id number]) [facility] ([facility]) [address] [place], [place] [address]VUO panel Auto (Bld)on 63-55-0014Pnpuptvphyq distribution width (RBC) [Ratio]13.6 %11.5 - 14.5 %[facility] Hematocrit (Bld) [Volume fraction]30.9 %Low41.0 - 52.0 %UC Medical CenterHemoglobin (Bld) [Mass/Vol]9.7 g/dLLow13.5 - 17.5 g/dLUC Medical CenterInterpretation and review of laboratory resultsAbnoAdams County Hospital (RBC) [Entitic mass]28.1 pg26.0 - 34.0 pg [facility] CompanyHC (RBC) [Mass/Vol]31.4 g/dLLow32.0 - 36.0 g/dLUC Medical CenterMCV (RBC) [Entitic vol]90 fL80 - 100 fL [facility] Medical CenterNucleated RBC/100 WBC (Bld) [Ratio]0.0 % [facility] Medical CenterPlatelets (Bld) [#/Vol]209 10*3/[facility] Medical CenterRBC (Bld) [#/Vol]3.45 10*6/[facility]utheran HospitalWBC (Bld) [#/Vol]8.3 10*3/[facility] Erythrocyte distribution width (RBC) [Ratio]13.6 %Yqfcng98.5-14.5Sum[facility] - Rittman Medical CenterComment on above:Performed By: #### 79176-8 #### PACHECO Ferraro ([id number]) [facility] ([facility]) [address] [place], [place] [address]Jdyhfkdnap (Bld) [Volume fraction]30.9 %Low41.0-52.0 [facility] Rittman Medical CenterComment on above:Performed By: #### 07747-2 #### PACHECO Ferraro (93862) [facility] ([facility]) [address] [place], [place] [address]Txrtlwrylp (Bld) [Mass/Vol]9.7 g/dLLow13.5-17.5UnBrown Memorial HospitalComment on above:Performed By: #### 58966-0 #### PACHECO Ferraro ([id number]) [facility] ([facility]) [address] [place], [place] [address]CYF (RBC) [Entitic mass]28.1 ahQfwxps31.0-34.0UnBrown Memorial HospitalComment on above:Performed By: #### 77299-0 #### PACHECO Ferraro (12778) [facility] ([facility]) [address] [place], [place] [address]VXXV (RBC) [Mass/Vol]31.4 g/dLLow32.0-36.0UnBrown Memorial HospitalComment on above:Performed By: #### 83446-2 #### PACHECO Ferraro (67968) [facility] ([facility]) [address] [place], [place] [address]TGX (RBC) [Entitic vol]90 lNGmzwlc09-592ErzmbjgpyaBrown Memorial HospitalComment on above:Performed By: #### 73268-8 #### PACHECO Ferraro (34926) [facility] ([facility]) [address] [place], [place] [address]Hjdqxudxt RBC/100 WBC (Bld) [Ratio]0.0 /100 WBCsNormal0.0-0.0 [facility] Rittman Medical CenterComment on above:Performed By: #### 25841-9 #### PACHECO Ferraro (92612) [facility] ([facility]) [address] [place], [place] [address]Machumxlc (Bld) [#/Vol]209 x10*3/qPJrcvdi610-116NlankpccftBrown Memorial HospitalComment on above:Performed By: #### 00923-7 #### PACHECO Ferraro (30678) [facility] ([facility]) [address] [place], [place] [address]IIS (Bld) [#/Vol]3.45 x10*6/uLLow4.50-5.90UnBrown Memorial HospitalComment on above:Performed By: #### 50662-7 #### PACHECO Ferraro (56146) [facility] ([facility]) [address] [place], [place] [address]LOD (Bld) [#/Vol]8.3 x10*3/uLNormal4.4-11.3UnBrown Memorial HospitalComment on above:Performed By: #### 32695-0 #### PACHECO Ferraro (62888) [facility] ([facility]) [address] [place], [place] [address]Tygylgj Test strip manual (Bld) [Mass/Vol]on 06-04-2023 Glucose [Mass/Vol]184 mg/hTLxpu56 - 99 mg/dLUnPremier Health Upper Valley Medical Center Interpretation and review of laboratory resultsAbnoOhio Valley Surgical HospitalGlucose [Mass/Vol]184 mg/rMEwmb57-78XteyhllqtaBrown Memorial HospitalComment on above:Performed By: #### 02804-8 #### PACHECO Ferraro (51574) [facility] ([facility]) [address] [place], [place] [address]Qpbxext [Mass/Vol]243 mg/rEGtzq73 - 99 mg/dLUnPremier Health Upper Valley Medical CenterInterpretation and review of laboratory resultsAbOhioHealth Hardin Memorial HospitalGlucose [Mass/Vol]243 mg/uZPgok79-29RkhkqbskonBrown Memorial HospitalComment on above:Performed By: #### 72398-2 #### PACHECO Ferraro (15050) [facility] ([facility]) [address] [place], [place] [address]Dkugjdx [Mass/Vol]233 mg/rGGawf62 - 99 mg/dLUnPremier Health Upper Valley Medical CenterInterpretation and review of laboratory resultsAbOhioHealth Hardin Memorial HospitalGlucose [Mass/Vol]233 mg/gXVzns85-92TsgdwbdqlzSumma Health Wadsworth - Rittman Medical CenterComment on above:Performed By: #### 83855-9 #### PACHECO Ferraro (33997) [facility] ([facility]) [address] [place] [address]Shqiyst [Mass/Vol]139 mg/sIIhfz68 - 99 mg/dLUnPremier Health Upper Valley Medical CenterInterpretation and review of laboratory resultsAbnoLouis Stokes Cleveland VA Medical CenterGlucose [Mass/Vol]139 mg/vRCdaj95-71KbasdvmzfeBrown Memorial HospitalComment on above:Performed By: #### 37509-0 #### PACHECO Ferraro (55883) [facility] ([facility]) [address] [place] [address]Jc Panel Informationon 64-35-2126Sbiohzor StatusREUnPremier Health Upper Valley Medical CenterPRODUCT BLOOD [id number] Medical Center PRODUCT [id number] Medical CenterUn ABOOUnPremier Health Upper Valley Medical CenterUn RHNegativeUC Medical CenterUN BBNTYU835LvgabwclosUC Medical CenterX INTEPCOMPUC Medical CenterUnPremier Health Upper Valley Medical CenterPrepare RBC: 2 Unitson 74-67-6075Cwykr Expiration DateMarch 2023 23:59 EDTUC Medical CenterBlood Expiration DateApril 2023 23:59 TUC Medical CenterUn [id number]-SQmnblcadjuMetroHealth Main Campus Medical CenterUnit [id number] [facility] CenterBarockcastle regional hospital metabolic 2000 panelon 46-77-4790Nmzui gap [Moles/Vol]10 mmol/L10 - 20 mmol/[facility] HealthCalcium [Mass/Vol]8.6 mg/dL8.6 - 10.6 mg/dLUC Medical CenterChloride [Moles/Vol]105 mmol/L98 - 107 mmol/[facility] HealthCO2 [Moles/Vol]27 mmol/L21 - 32 mmol/[facility] HealthCreatinine [Mass/Vol]0.58 mg/dL0.50 - 1.30 mg/dLUnPremier Health Upper Valley Medical CentereGFR- PINF UC Medical CenterComment on above:Calculations of estimated GFR are performed using the 2020 CKD-EPI Study Refit equation without therace variable for the IDMS-Traceable creatinine methods. https://jasn.asnjournals.org/content//ASN.8551338178 Glucose [Mass/Vol]181 mg/zUKggm38 - 99 mg/dLUnPremier Health Upper Valley Medical Center Interpretation and review of laboratory resultsAbnormalUniMercer County Community HospitalPotassium [Moles/Vol]3.3 mmol/LLow3.5 - 5.3 mmol/[facility] HealthSodium [Moles/Vol]139 mmol/L136 - 145 mmol/[facility] HealthUrea nitrogen [Mass/Vol]10 mg/dL6 - 23 mg/dLUnPremier Health Upper Valley Medical CenterUnPremier Health Upper Valley Medical CenterAnion gap [Moles/Vol]10 mmol/LNormal 10-20UnBrown Memorial HospitalComment on above:Performed By: #### 42809-7 #### PACHECO Ferraro ([id number]) [facility] ([facility]) [address] [place], [place] [address]Jicwrol [Mass/Vol]8.6 mg/dLNormal8.6-10.6UnBrown Memorial HospitalComment on above:Performed By: #### 69091-6 #### PACHECO Ferraro ([id number]) [facility] ([facility]) [address] [place] [address]Yrooduaw [Moles/Vol]105 mmol/SIgvzap78-305LbnoijrndvBrown Memorial HospitalComment on above:Performed By: #### 72586-7 #### PACHECO Ferraro (69355) [facility] ([facility]) [address] [place] [address]IN9 [Moles/Vol]27 mmol/JUpxsrm98-85DiuaijotkeBrown Memorial HospitalComment on above:Performed By: #### 21319-6 #### PACHECO Ferraro (66884) [facility] ([facility]) [address] [place], [place] [address]Bgeivsiyge [Mass/Vol]0.58 mg/dLNormal0.50-1.30UnBrown Memorial HospitalComment on above:Performed By: #### 27565-2 #### PACHECO Ferraro (08411) [facility] ([facility]) [address] [place] [address]WAQ/1.73 sq M.predicted MDRD (S/P/Bld) [Vol rate/Area] mL/min/{1.73_m2}Normal>60UnBrown Memorial HospitalComment on above:Result Comment: Calculations of estimated GFR are performed using the 2020 CKD-EPI Study Refit equation without the race variable for the IDMS-Traceable creatinine methods. https://jasn.asnjournals.org/content/early//ASN.8274162777Mmboxwufg By: #### 61627-0 #### PACHECO Ferraro (35635) [facility] ([facility]) [address] [place] [address]Vnwthbe [Mass/Vol]181 mg/wEZdoa59-72RtqnvrhnujBrown Memorial HospitalComment on above:Performed By: #### 91414-0 #### PACHECO Ferraro (51041) [facility] ([facility]) [address] [place] [address]Qmgfgmfxt [Moles/Vol]3.3 mmol/LLow3.5-5.3UnBrown Memorial HospitalComment on above:Performed By: #### 79074-4 #### PACHECO Ferraro (11247) [facility] ([facility]) [address] [place] [address]Kwonrr [Moles/Vol]139 mmol/PCdnnnh803-689IzftvmzfefBrown Memorial HospitalComment on above:Performed By: #### 04126-3 #### PACHECO Ferraro (50052) [facility] ([facility]) [address] [place], [place] [address]Nksz nitrogen [Mass/Vol]10 mg/dLNormal6-23Sum[facility] Rittman Medical CenterComment on above:Performed By: #### 90226-0 #### PACHECO Ferraro (82001) [facility] ([facility]) [address] [place] [address]RPZ panel Auto (Bld)on 80-43-5969Nztobkhpbjm distribution width (RBC) [Ratio]14.2 %11.5 - 14.5 %[facility] Hematocrit (Bld) [Volume fraction]31.3 %Low41.0 - 52.0 %[facility] CenterHemoglobin (Bld) [Mass/Vol]10.1 g/dLLow13.5 - 17.5 g/dLUnPremier Health Upper Valley Medical CenterInterpretation and review of laboratory resultsAbnoAdams County Hospital (RBC) [Entitic mass]29.3 pg26.0 - 34.0 pg [facility] CenterMCHC (RBC) [Mass/Vol]32.3 g/dL32.0 - 36.0 g/dL [facility] CenterMCV (RBC) [Entitic vol]91 fL80 - 100 fL [facility] CenterNucleated RBC/100 WBC (Bld) [Ratio]0.0 % [facility] CenterPlatelets (Bld) [#/Vol]203 10*3/[facility] Medical CenterRBC (Bld) [#/Vol]3.45 10*6/[facility] HospitalWBC (Bld) [#/Vol]9.4 10*3/[facility] Medical CenterUnPremier Health Upper Valley Medical CenterErythrocyte distribution width (RBC) [Ratio]14.2 %Normal 11.5-14.5Sum[facility] - Rittman Medical CenterComment on above:Performed By: #### 37550-6 #### PACHECO Ferraro (81408) [facility] ([facility]) [address] [place], [place] [address]Daugxkdaap (Bld) [Volume fraction]31.3 %Low41.0-52.0 [facility] Rittman Medical CenterComment on above:Performed By: #### 19231-8 #### PACHECO Ferraro (42265) [facility] ([facility]) [address] [place], [place] [address]Tdbhfhjxas (Bld) [Mass/Vol]10.1 g/dLLow13.5-17.5UnBrown Memorial HospitalComment on above:Performed By: #### 43151-2 #### PACHECO Ferraro (65312) [facility] ([facility]) [address] [place], [place] [address]BSV (RBC) [Entitic mass]29.3 rhRhkpxn59.0-34.0UnBrown Memorial HospitalComment on above:Performed By: #### 76480-9 #### PACHECO Ferraro (15188) [facility] ([facility]) [address] [place], [place] [address]FDPZ (RBC) [Mass/Vol]32.3 g/cHDnzdok41.0-36.0UnBrown Memorial HospitalComment on above:Performed By: #### 34270-4 #### PACHECO Ferraro (93531) [facility] ([facility]) [address] [place], [place] [address]AZR (RBC) [Entitic vol]91 zHLoobxr83-679SyubeazcaeBrown Memorial HospitalComment on above:Performed By: #### 20281-7 #### PACHECO Ferraro (97238) [facility] ([facility]) [address] [place], [place] [address]Bndmdfypx RBC/100 WBC (Bld) [Ratio]0.0 /100 WBCsNormal0.0-0.0 [facility] Rittman Medical CenterComment on above:Performed By: #### 32460-6 #### PACHECO Ferraro (54335) [facility] ([facility]) [address] [place], [place] [address]Hsbhsiuvy (Bld) [#/Vol]203 x10*3/sHRsubww321-391MhnaiwzxhmBrown Memorial HospitalComment on above:Performed By: #### 71184-1 #### PACHECO Ferraro (53246) [facility] ([facility]) [address] [place] [address]TLD (Bld) [#/Vol]3.45 x10*6/uLLow4.50-5.90UnBrown Memorial HospitalComment on above:Performed By: #### 01793-9 #### PACHECO Ferraro (13843) [facility] ([facility]) [address] [place] [address]HPB (Bld) [#/Vol]9.4 x10*3/uLNormal4.4-11.3Sum[facility] Rittman Medical CenterComment on above:Performed By: #### 93898-5 #### PACHECO Ferraro (83029) [facility] ([facility]) [address] [place] [address]Gjfwvho Test strip manual (Bld) [Mass/Vol]on 06-03-2023 Glucose [Mass/Vol]207 mg/gYJafw99 - 99 mg/dLUnPremier Health Upper Valley Medical Center Interpretation and review of laboratory resultsAbnoMercy Health West HospitalGlucose [Mass/Vol]207 mg/nBCgov28-05 [facility] Ritt[facility] Medical CenterComment on above:Performed By: #### 66246-4 #### PACHECO Ferraro (24501) [facility] ([facility]) [address] [place] [address]Hpexnxw [Mass/Vol]224 mg/pBFwas60 - 99 mg/dLUnPremier Health Upper Valley Medical CenterInterpretation and review of laboratory resultsAbOhioHealth Hardin Memorial HospitalUnPremier Health Upper Valley Medical CenterGlucose [Mass/Vol]224 mg/mAVime08-31HtiatfycssBrown Memorial HospitalComment on above:Performed By: #### 15651-5 #### PACHECO Ferraro (02653) [facility] ([facility]) [address] [place] [address]Mipwuwz [Mass/Vol]129 mg/rNSyha47 - 99 mg/dLUnPremier Health Upper Valley Medical CenterInterpretation and review of laboratory resultsAbAvita Health System Ontario HospitalGlucose [Mass/Vol]129 mg/oVJrxt97-14AxrqoamsdaSumma Health Wadsworth - Rittman Medical CenterComment on above:Performed By: #### 19024-3 #### PACHECO Ferraro (98528) [facility] ([facility]) [address] [place] [address]26[address]GFJ panel Auto (Bld)on 50-65-5388Npfvycbxnwe distribution width (RBC) [Ratio]14.6 %High11.5 - 14.5 %[facility] Hematocrit (Bld) [Volume fraction]34.9 %Low41.0 - 52.0 %[facility] CenterHemoglobin (Bld) [Mass/Vol]10.9 g/dLLow13.5 - 17.5 g/dLUC Medical CenterInterpretation and review of laboratory resultsAbnoAdams County Hospital (RBC) [Entitic mass]28.7 pg26.0 - 34.0 pg [facility] CompanyHC (RBC) [Mass/Vol]31.2 g/dLLow32.0 - 36.0 g/dLUC Medical CenterMCV (RBC) [Entitic vol]92 fL80 - 100 fL [facility] CenterNucleated RBC/100 WBC (Bld) [Ratio]0.0 % [facility] CenterPlatelets (Bld) [#/Vol]243 10*3/[facility] Medical CenterRBC (Bld) [#/Vol]3.80 10*6/[facility] HospitalWBC (Bld) [#/Vol]10.6 10*3/[facility] SpringfieldErythrocyte distribution width (RBC) [Ratio] 14.6 %High11.5-14.5[facility] - Rittman Medical CenterComment on above:Performed By: #### 93163-6 #### PACHECO Ferraro (52532) [facility] ([facility]) [address] [place], [place] [address]Uymlooilyi (Bld) [Volume fraction]34.9 %Low41.0-52.0 [facility] Rittman Medical CenterComment on above:Performed By: #### 04070-2 #### PACHECO Ferraro (76868) [facility] ([facility]) [address] [place], [place] [address]Aqrlkidnjy (Bld) [Mass/Vol]10.9 g/dLLow13.5-17.5UnBrown Memorial HospitalComment on above:Performed By: #### 97920-7 #### PACHECO Ferraro (85993) [facility] ([facility]) [address] [place], [place] [address]FVX (RBC) [Entitic mass]28.7 muYxejpx76.0-34.0UnBrown Memorial HospitalComment on above:Performed By: #### 55364-3 #### PACHECO Ferraro (24706) [facility] ([facility]) [address] [place] [address]VZJN (RBC) [Mass/Vol]31.2 g/dLLow32.0-36.0UnBrown Memorial HospitalComment on above:Performed By: #### 48799-3 #### PACHECO Ferraro (29563) [facility] ([facility]) [address] [place] [address]WFZ (RBC) [Entitic vol]92 uSVlgtew82-343CfggwycuudBrown Memorial HospitalComment on above:Performed By: #### 79589-1 #### PACHECO Ferraro (94322) [facility] ([facility]) [address] [place] [address] 236[address]Lijpvykai RBC/100 WBC (Bld) [Ratio]0.0 /100 WBCsNormal0.0-0.0 [facility] Rittman Medical CenterComment on above:Performed By: #### 63826-6 #### PACHECO Ferraro (84306) [facility] ([facility]) [address] [place] [address] 48[address]Xpbilmgbe (Bld) [#/Vol]243 x10*3/pHDziyxb634-762ApbbamifjnBrown Memorial HospitalComment on above:Performed By: #### 33744-3 #### PACHECO Ferraro (30793) [facility] ([facility]) [address] [place] [address] 28[address]JOY (Bld) [#/Vol]3.80 x10*6/uLLow4.50-5.90UnBrown Memorial HospitalComment on above:Performed By: #### 55014-4 #### PACHECO Ferraro (33992) [facility] ([facility]) [address] [place] [address] 639[address]YKG (Bld) [#/Vol]10.6 x10*3/uLNormal4.4-11.3[facility]ittman Medical CenterComment on above:Performed By: #### [id number] #### PACHECO Ferraro ([id number]) [facility] ([facility]) [address] [place] [address] [id number] 38-34-8986Dvurksxgcz Coag (PPP) [Mass/Vol]270 mg/dL200 - 400 mg/dLUC Medical CenterFibrinogen Coag (PPP) [Mass/Vol]270 mg/nDFpiexn077-602BtzzsruoeuBrown Memorial Hospital Comment on above:Performed By: #### [id number] #### PACHECO Ferraro ([id number]) [facility] ([facility]) [address] [place] [address] 97538Haznvfmnna Coag (PPP) [Mass/Vol]on [id number] and review of laboratory resultsNoOhio Valley Surgical HospitalGlucose Test strip manual (Bld) [Mass/Vol]on [id number] [Mass/Vol]248 mg/kKLwar04 - 99 mg/dLUC Medical CenterInterpretation and review of laboratory resultsAbnoOhio Valley Surgical HospitalUnPremier Health Upper Valley Medical CenterGlucose [Mass/Vol]248 mg/rLHxcy96-75EmutnkmrtaBrown Memorial HospitalComment on above: Performed By: #### [id number] #### PACHECO Ferraro ([id number]) [facility] ([facility]) [id number] [place] [address] 64459Swxskms [Mass/Vol]278 mg/nIYqrw86 - 99 mg/dLUnPremier Health Upper Valley Medical CenterInterpretation and review of laboratory resultsAbnoal UC Medical CenterUnPremier Health Upper Valley Medical CenterGlucose [Mass/Vol]233 mg/fBPwiu48 - 99 mg/dLUnPremier Health Upper Valley Medical Center Interpretation and review of laboratory resultsAbSt. Charles HospitalUnPremier Health Upper Valley Medical CenterGlucose [Mass/Vol]278 mg/hTEqgm98-01 [facility] Ritt[facility] Medical CenterComment on above:Performed By: #### 78292-6 #### PACHECO Ferraro ([id number]) [facility] ([facility]) [address] [place] [address] 18374Jaukfcq [Mass/Vol]233 mg/lGSjhp95-46RzexslsrvjBrown Memorial HospitalComment on above:Performed By: #### 41600-6 #### PACHECO Ferraro ([id number]) [facility] ([facility]) [address] [place] [address] 26696Xihqdezhxni 72-31-2729Ccaqgyzxi [Mass/Vol]1.74 mg/dL1.60 - 2.40 mg/dLUnPremier Health Upper Valley Medical CenterMagnesium [Mass/Vol]1.74 mg/dLNormal 1.60-2.40UnBrown Memorial HospitalComment on above:Performed By: #### 58573-0 #### PACHECO Ferraro ([id number]) [facility] ([facility]) [address] [place] [address] 81080Hlbhmvdeb [Mass/Vol]on 18-07-4042Krmkhccteknklg and review of laboratory resultsNormMercy Health Willard HospitalNo Panel Informationon 87-00-2354TuaaubnojrPremier Health Upper Valley Medical CenterRenal function 2000 panelon 32-35-6342Nwmmmhr BCP dye [Mass/Vol]3.8 g/dL3.4 - 5.0 g/dLUnPremier Health Upper Valley Medical CenterAnion gap [Moles/Vol]11 mmol/L10 - 20 mmol/LUnPremier Health Upper Valley Medical CenterCalcium [Mass/Vol]8.7 mg/dL8.6 - 10.6 mg/dLUnPremier Health Upper Valley Medical CenterChloride [Moles/Vol]102 mmol/L98 - 107 mmol/[facility]tering HealthCO2 [Moles/Vol]26 mmol/L21 - 32 mmol/[facility] Creatinine [Mass/Vol]0.71 mg/dL0.50 - 1.30 mg/dLUnPremier Health Upper Valley Medical CentereGFR- PINFUniMercer County Community HospitalComment on above: Calculations of estimated GFR are performed using the 2020 CKD-EPI Study Refit equation without therace variable for the IDMS-Traceable creatinine methods. https://jasn.asnjournals.org/content/early/ASN.2846024661 Glucose [Mass/Vol]163 mg/aDDgnl53 - 99 mg/dLUnPremier Health Upper Valley Medical Center Interpretation and review of laboratory resultsAbnoalUniMercer County Community HospitalPhosphate [Mass/Vol]2.1 mg/dLLow2.5 - 4.9 mg/dLUnPremier Health Upper Valley Medical CenterComoaklawn hospital on above:The performance characteristics of phosphorus testing in heparinized plasma have been validated by the individual laboratory site where testing is performed. Testing on heparinized plasma is not approved by the FDA; however, such approval is not necessary.Potassium [Moles/Vol]3.3 mmol/LLow 3.5 - 5.3 mmol/[facility]tering HealthSodium [Moles/Vol]136 mmol/L136 - 145 mmol/[facility]tering HealthUrea nitrogen [Mass/Vol]8 mg/dL6 - 23 mg/dLUnPremier Health Upper Valley Medical CenterAlbumin BCP dye [Mass/Vol]3.8 g/dL Normal3.4-5.0UnBrown Memorial HospitalComment on above: Performed By: #### 63326-9 #### PACHECO Ferraro ([id number]) [facility] ([facility]) [address] [place] [address] 77705Oldgw gap [Moles/Vol]11 mmol/WIhwuvu98-28LsbjmomskfBrown Memorial HospitalComment on above:Performed By: #### 80292-3 #### PACHECO Ferraro ([id number]) [facility] ([facility]) [address] [place], [place] [address]Yqsccun [Mass/Vol]8.7 mg/dLNormal8.6-10.6Sum[facility] Rittman Medical CenterComment on above:Performed By: #### 34898-3 #### PACHECO Ferraro ([id number]) [facility] ([facility]) [address] [place], [place] [address]Qzovohhu [Moles/Vol]102 mmol/PTlflmh97-454ZmonrsamvnBrown Memorial HospitalComment on above:Performed By: #### 14992-3 #### PACHECO Ferraro ([id number]) [facility] ([facility]) [address] [place] [address] 00703FW6 [Moles/Vol]26 mmol/CPryikg52-13IophogjucwBrown Memorial HospitalComment on above:Performed By: #### 17515-1 #### PACHECO Ferraro ([id number]) [facility] ([facility]) [address] [place] [address] 79856Pzjacvyedm [Mass/Vol]0.71 mg/dLNormal0.50-1.30UnBrown Memorial HospitalComment on above:Performed By: #### 61755-4 #### PACHECO Ferraro ([id number]) [facility] ([facility]) [address] [place] [address] 51214WIZ/1.73 sq M.predicted MDRD (S/P/Bld) [Vol rate/Area] mL/min/{1.73_m2}Normal>60UnBrown Memorial HospitalComment on above:Result Comment: Calculations of estimated GFR are performed using the 2020 CKD-EPI Study Refit equation without the race variable for the IDMS-Traceable creatinine methods. https://jasn.asnjournals.org/content/early//ASN.1498591808Cplyekvyw By: #### 34384-2 #### PACHECO Ferraro ([id number]) [facility] ([facility]) [address] [place] [address] 29411Wgyketx [Mass/Vol]163 mg/kXVtmg94-14JozxvcnmsnBrown Memorial HospitalComment on above:Performed By: #### 61405-3 #### PACHECO Ferraro ([id number]) [facility] ([facility]) [address] [place] [address] 64146Qiqkzdpou [Mass/Vol]2.1 mg/dLLow2.5-4.9UnBrown Memorial HospitalComment on above:Result Comment: The performance characteristics of phosphorus testing in heparinized plasma have been validated by the individual laboratory site where testing is performed. Testing on heparinizedplasma is not approved by the FDA; however, such approval is not necessary.Performed By: #### 32887-3 #### PACHECO Ferraro ([id number]) [facility] ([facility]) [address] [place] [address] 06438Hjdlpgiuh [Moles/Vol]3.3 mmol/LLow3.5-5.3UnBrown Memorial HospitalComment on above:Performed By: #### 24474-7 #### PACHECO Ferraro ([id number]) [facility] ([facility]) [address] [place] [address] 40421Bqsoba [Moles/Vol]136 mmol/EWfkpxp295-419QgfehlitvzBrown Memorial HospitalComment on above:Performed By: #### 77257-5 #### PACHECO Ferraro ([id number]) [facility] ([facility]) [address] [place] [address] 31325Ifqb nitrogen [Mass/Vol]8 mg/dLNormal6-23UnBrown Memorial HospitalComment on above:Performed By: #### 28609-0 #### PACHECO Ferraro ([id number]) [facility] ([facility]) [address] [place] [address] 31445UES panel Auto (Bld)on 48-37-5555Ssmhnylvddp distribution width (RBC) [Ratio]14.0 %11.5 - 14.5 %[facility] Hematocrit (Bld) [Volume fraction]31.1 %Low41.0 - 52.0 %[facility] CenterHemoglobin (Bld) [Mass/Vol]10.5 g/dLLow13.5 - 17.5 g/dLUC Medical CenterInterpretation and review of laboratory resultsAbnormal [facility] CenterMCH (RBC) [Entitic mass]29.0 pg26.0 - 34.0 pg [facility] CenterMCHC (RBC) [Mass/Vol]33.8 g/dL32.0 - 36.0 g/dL [facility] CenterMCV (RBC) [Entitic vol]86 fL80 - 100 fL [facility] CenterNucleated RBC/100 WBC (Bld) [Ratio]0.0 % [facility] CenterPlatelets (Bld) [#/Vol]233 10*3/[facility] Medical CenterRBC (Bld) [#/Vol]3.62 10*6/[facility] HospitalWBC (Bld) [#/Vol]9.7 10*3/[facility] Medical CenterUnPremier Health Upper Valley Medical CenterErythrocyte distribution width (RBC) [Ratio]14.0 %Normal 11.5-14.5Sum[facility] - Rittman Medical CenterComment on above:Performed By: #### 85385-9 #### PACHECO Ferraro ([id number]) [facility] ([facility]) [address] [place] [address] 05666Rklbwenept (Bld) [Volume fraction]31.1 %Low41.0-52.0 [facility] Rittman Medical CenterComment on above:Performed By: #### 90685-6 #### PACHECO Ferraro ([id number]) [facility] ([facility]) [address] [place], [place] [address]Zwtixkcemt (Bld) [Mass/Vol]10.5 g/dLLow13.5-17.5UnBrown Memorial HospitalComment on above:Performed By: #### 10005-3 #### PACHECO Ferraro ([id number]) [facility] ([facility]) [address] [place] [address] 94023SKI (RBC) [Entitic mass]29.0 pgRinkzy55.0-34.0UnBrown Memorial HospitalComment on above:Performed By: #### 99344-8 #### PACHECO Ferraro ([id number]) [facility] ([facility]) [address] [place], [place] [address]GJQM (RBC) [Mass/Vol]33.8 g/cDHzrcnx55.0-36.0UnBrown Memorial HospitalComment on above:Performed By: #### 53112-9 #### PACHECO Ferraro ([id number]) [facility] ([facility]) [address] [place], [place] [address]BOG (RBC) [Entitic vol]86 cVYnxkjt53-819AitgtynflnBrown Memorial HospitalComment on above:Performed By: #### 20290-2 #### PACHECO Ferraro ([id number]) [facility] ([facility]) [address] [place], [place] [address]Hrftyedcg RBC/100 WBC (Bld) [Ratio]0.0 /100 WBCsNormal0.0-0.0 [facility] Ritt[facility] Medical CenterComment on above:Performed By: #### 89235-9 #### PACHECO Ferraro ([id number]) [facility] ([facility]) [address] [place], [place] [address]Txctbzhox (Bld) [#/Vol]233 x10*3/qZUgvbjj809-772UprrfossuxBrown Memorial HospitalComment on above:Performed By: #### 03360-7 #### PACHECO Ferraro ([id number]) [facility] ([facility]) [address] [place], [place] [address]ALY (Bld) [#/Vol]3.62 x10*6/uLLow4.50-5.90UnBrown Memorial HospitalComment on above:Performed By: #### 56388-3 #### PACHECO Ferraro (50635) [facility] ([facility]) [address] [place], [place] [address]NHH (Bld) [#/Vol]9.7 x10*3/uLNormal4.4-11.3UnBrown Memorial HospitalComment on above:Performed By: #### 56114-9 #### PACHECO Ferraro ([id number]) [facility] ([facility]) [address] [place], [place] [address]RR FLUORO IMAGES NO CHARGEon 05-30-7869SS FLUORO IMAGES NO CHARGEThese images are not reportable by radiology and will not be interpreted by Radiologists.NormalUnBrown Memorial HospitalFibrinogen on 30-68-6244Rrvjunqebc Coag (PPP) [Mass/Vol]195 mg/rBOfa446 - 400 mg/dL [facility] Medical CenterFibrinogen Coag (PPP) [Mass/Vol]195 mg/dLLow 200-400UnBrown Memorial HospitalComment on above:Performed By: #### 95126-8 #### PACHECO Ferraro ([id number]) [facility] ([facility]) [address] [place], [place] [address]Qtehcwpifo Coag (PPP) [Mass/Vol]on 83-27-2440Uahnfoubdtozbl and review of laboratory resultsAbnormalUniversParkside Psychiatric Hospital Clinic – TulsaGas and Carbon monoxide and Electrolytes panel (BldA)on 05-95-9987Bpxjx gap 4 (BldA) [Moles/Vol]11UC Medical CenterBase excess Calc (Bld) [Moles/Vol]-3.0000 mmol/LLow-2.0 - 3.0 mmol/L [facility] CenterCalcium.ionized (BldA) [Moles/Vol]1.18 mmol/L 1.10 - 1.33 mmol/[facility]tering HealthChloride (BldA) [Moles/Vol] 106 mmol/L98 - 107 mmol/[facility] HealthCO2 (Bld) [Partial pressure]38 mm[Hg][facility] CenterGlucose [Mass/Vol]245 mg/dL High74 - 99 mg/dLUC Medical CenterHCO3 (Bld) [Moles/Vol]22.0 mmol/L22.0 - 26.0 mmol/[facility] HealthHematocrit Est (Bld) [Volume fraction]32.0 %Low41.0 - 52.0 %[facility] Hemoglobin (Bld) [Mass/Vol]10.5 g/dLLow13.5 - 17.5 g/dLUC Medical CenterInhaled oxygen bvutxlbuwjsuw38 %[facility] Interpretation and review of laboratory resultsAbnormalUniMercer County Community HospitalLactate (BldA) [Moles/Vol]2.0 mmol/L0.4 - 2.0 mmol/[facility] HealthOxygen (Bld) [Partial pressure]202 mm[Hg]HighUC Medical CenterOxyhemoglobin (BldA) [Mass fraction]97.7 %94.0 - 98.0 % [facility] CenterpH (Bld)7.37 [pH]Low7.38 - 7.42 pHUC Medical CenterPotassium (BldA) [Moles/Vol]3.1 mmol/LLow3.5 - 5.3 mmol/L [facility] CenterSodium (BldA) [Moles/Vol]136 mmol/L136 - 145 mmol/[facility]tering HealthUnPremier Health Upper Valley Medical CenterAnion gap 4 (BldA) [Moles/Vol]11 mmo/OVibpst33-90XvshgtguimSumma Health Wadsworth - Rittman Medical CenterComment on above:Performed By: #### 40295-7 #### PACHECO Ferraro ([id number]) [facility] ([facility]) [address] [place] [address] 46709Deyx excess Calc (Bld) [Moles/Vol]-3.0000 mmol/LLow-2.0-3.0 [facility] Ritt[facility] Medical CenterComment on above:Performed By: #### 27289-4 #### PACHECO Ferraro ([id number]) [facility] ([facility]) [address] [place] [address] 43805Gzyqjcn.ionized (BldA) [Moles/Vol]1.18 mmol/LNormal1.10-1.33 [facility] Ritt[facility] Medical CenterComment on above:Performed By: #### 83986-4 #### PACHECO Ferraro ([id number]) [facility] ([facility]) [address] [place] [address] 04577Evpcobos (BldA) [Moles/Vol]106 mmol/QJuhgin80-578ZhurmyuoqdBrown Memorial HospitalComment on above:Performed By: #### 30025-8 #### PACHECO Ferraro ([id number]) [facility] ([facility]) [address] [place] [address] 79081FO7 (Bld) [Partial pressure]38 mm WhAbggnl31-99UdhnmpjvdtBrown Memorial HospitalComment on above:Performed By: #### 84021-6 #### PACHECO Ferraro ([id number]) [facility] ([facility]) [address] [place] [address] 49253Cuvvcaj [Mass/Vol]245 mg/zFPfot98-00OcmlzsfjbkBrown Memorial HospitalComment on above:Performed By: #### 64436-6 #### PACEHCO Ferraro ([id number]) [facility] ([facility]) [address] [place] [address] 26183CFQ1 (Bld) [Moles/Vol]22.0 mmol/VTmzfku91.0-26.0UnBrown Memorial HospitalComment on above:Performed By: #### 60536-7 #### PACHECO Ferraro ([id number]) [facility] ([facility]) [address] [place] [address] 90936Kvktbodgfc Est (Bld) [Volume fraction]32.0 %Low41.0-52.0 [facility] Ritt[facility] Medical CenterComment on above:Performed By: #### 55310-5 #### PACHECO Ferraro ([id number]) [facility] ([facility]) [address] [place] [address] 19652Sjcntwzfay (Bld) [Mass/Vol]10.5 g/dLLow13.5-17.5UnBrown Memorial HospitalComment on above:Performed By: #### 21940-1 #### APCHECO Ferraro ([id number]) [facility] ([facility]) [address] [place] [address] [place] [address]Pfcifjz oxygen vdoagootfonbo05 %NormalUnBrown Memorial HospitalComment on above:Performed By: #### 36064-8 #### PACHECO Ferraro ([id number]) [facility] ([facility]) [address] [place] [address] 32678Okwqwtl (BldA) [Moles/Vol]2.0 mmol/LNormal0.4-2.0UnBrown Memorial HospitalComment on above:Performed By: #### 53712-5 #### PACHECO Ferraro ([id number]) [facility] ([facility]) [address] [place] [address] 76308Uhzqzq (Bld) [Partial pressure]202 mm XdMnpp93-74UuwstvygwuBrown Memorial HospitalComment on above:Performed By: #### 40708-2 #### PACHECO Ferraro ([id number]) [facility] ([facility]) [address] [place] [address] 19861Kuuhieofihkxy (BldA) [Mass fraction]97.7 %Cltrah87.0-98.0 [facility] Medical CenterComment on above:Performed By: #### 54331-5 #### PACHECO Ferraro ([id number]) [facility] ([facility]) [address] [place] [address] 26316nJ (Bld)7.37 [pH]Low7.38-7.42UnBrown Memorial HospitalComment on above:Performed By: #### 46100-0 #### PACHECO Ferraro ([id number]) [facility] ([facility]) [address] [place] [address] 89714Uipsizfxb (BldA) [Moles/Vol]3.1 mmol/LLow3.5-5.3UnBrown Memorial HospitalComment on above:Performed By: #### 45415-0 #### PACHECO Ferraro (68756) [facility] ([facility]) [address] [place] [address] 61162Xzwbeo (BldA) [Moles/Vol]136 mmol/JWfppqq975-431Urwxlhsonp Hospitals Davies Medical CenterComment on above:Performed By: #### 99393-8 #### PACHECO Ferraro (60652) [facility] ([facility]) [address] [place], [place] [address]Anion gap 4 (BldA) [Moles/Vol]13UnPremier Health Upper Valley Medical CenterBase excess Calc (Bld) [Moles/Vol]-3.6000 mmol/LLow-2.0 - 3.0 mmol/L [facility] CenterCalcium.ionized (BldA) [Moles/Vol]1.17 mmol/L 1.10 - 1.33 mmol/[facility] HealthChloride (BldA) [Moles/Vol] 106 mmol/L98 - 107 mmol/[facility] HealthCO2 (Bld) [Partial pressure]38 mm[Hg][facility] CenterGlucose [Mass/Vol]229 mg/dL High74 - 99 mg/dLUnPremier Health Upper Valley Medical CenterHCO3 (Bld) [Moles/Vol]21.5 mmol/LLow22.0 - 26.0 mmol/[facility] HealthHematocrit Est (Bld) [Volume fraction]32.0 %Low41.0 - 52.0 %[facility] Hemoglobin (Bld) [Mass/Vol]10.7 g/dLLow13.5 - 17.5 g/dLUC Medical CenterInhaled oxygen gowayrgizhzax04 %[facility] Interpretation and review of laboratory resultsAbnormalUniversSt. Vincent Anderson Regional HospitalLactate (BldA) [Moles/Vol]1.9 mmol/L0.4 - 2.0 mmol/[facility] HealthOxygen (Bld) [Partial pressure]197 mm[Hg]HighUnPremier Health Upper Valley Medical CenterOxyhemoglobin (BldA) [Mass fraction]97.9 %94.0 - 98.0 % [facility] CenterpH (Bld)7.36 [pH]Low7.38 - 7.42 pHUnPremier Health Upper Valley Medical CenterPotassium (BldA) [Moles/Vol]3.6 mmol/L3.5 - 5.3 mmol/L [facility] CenterSodium (BldA) [Moles/Vol]137 mmol/L136 - 145 mmol/LUnPremier Health Upper Valley Medical CenterUnPremier Health Upper Valley Medical CenterAnion gap 4 (BldA) [Moles/Vol]13 mmo/TZsefri20-81XbgtnpcwtxSumma Health Wadsworth - Rittman Medical CenterComment on above:Performed By: #### 97449-8 #### PACHECO Ferraro ([id number]) [facility] ([facility]) [address] [place] [address] 85964Pljl excess Calc (Bld) [Moles/Vol]-3.6000 mmol/LLow-2.0-3.0 [facility]itt[facility] Medical CenterComment on above:Performed By: #### 17607-0 #### PACHECO Ferraro (48829) [facility] ([facility]) [address] [place] [address] 66654Hpejlbl.ionized (BldA) [Moles/Vol]1.17 mmol/LNormal1.10-1.33 [facility]itt[facility] Medical CenterComment on above:Performed By: #### 63125-7 #### PACHECO Ferraro ([id number]) [facility] ([facility]) [address] [place] [address] 98514Zoenmkdh (BldA) [Moles/Vol]106 mmol/PTncwyt65-365FjkgovatmcSumma Health Wadsworth - Rittman Medical CenterComment on above:Performed By: #### 25684-6 #### PACHECO Ferraro ([id number]) [facility] ([facility]) [address] [place] [address] 79395LE8 (Bld) [Partial pressure]38 mm AwNinijr80-32MevqacjzzdSumma Health Wadsworth - Rittman Medical CenterComment on above:Performed By: #### 98157-7 #### PACHECO Ferraro ([id number]) [facility] ([facility]) [address] [place] [address] 39722Bshulcf [Mass/Vol]229 mg/oODmez75-10VjnugooytkBrown Memorial HospitalComment on above:Performed By: #### 59400-7 #### PACHECO Ferraro ([id number]) [facility] ([facility]) [address] [place] [address] 64459JVW7 (Bld) [Moles/Vol]21.5 mmol/LLow22.0-26.0[facility] Rittman Medical CenterComment on above:Performed By: #### 48736-2 #### PACHECO Ferraro ([id number]) [facility] ([facility]) [address] [place] [address] 47198Swkyxnsbsx Est (Bld) [Volume fraction]32.0 %Low41.0-52.0 [facility] Ritt[facility] Medical CenterComment on above:Performed By: #### 43784-9 #### PACHECO Ferraro (04791) [facility] ([facility]) [address] [place] [address] 40407Alnfgerbgg (Bld) [Mass/Vol]10.7 g/dLLow13.5-17.5[facility]ittman Medical CenterComment on above:Performed By: #### 67836-6 #### PACHECO Ferraro ([id number]) [facility] ([facility]) [address] [place] [address] 84201Nntavvr oxygen yesoupyivcvoa73 %NormalUnBrown Memorial HospitalComment on above:Performed By: #### 63732-3 #### PACHECO Ferraro ([id number]) [facility] ([facility]) [address] [place] [address] 17143Mgyzwok (BldA) [Moles/Vol]1.9 mmol/LNormal0.4-2.0[facility]itt[facility] Medical CenterComment on above:Performed By: #### 93161-2 #### PACHECO Ferraro ([id number]) [facility] ([facility]) [address] [place] [address] 77975Dhsvlw (Bld) [Partial pressure]197 mm MnMqtp43-80HcalsaokvqBrown Memorial HospitalComment on above:Performed By: #### 31076-7 #### PACHECO Ferraro ([id number]) [facility] ([facility]) [address] [place] [address] 21292Uusgmjivrgsus (BldA) [Mass fraction]97.9 %Bmndbe89.0-98.0 [facility]itt[facility] Medical CenterComment on above:Performed By: #### 19210-3 #### PACHECO Ferraro ([id number]) [facility] ([facility]) [address] [place] [address] 28573kU (Bld)7.36 [pH]Low7.38-7.42UnBrown Memorial HospitalComment on above:Performed By: #### 03170-0 #### PACHECO Ferraro (64801) [facility] ([facility]) [address] [place] [address] 09378Sibpoqzmh (BldA) [Moles/Vol]3.6 mmol/LNormal3.5-5.3UnBrown Memorial HospitalComment on above:Performed By: #### 32980-9 #### PACHECO Ferraro ([id number]) [facility] ([facility]) [address] [place] [address] 18880Tdmdgu (BldA) [Moles/Vol]137 mmol/XApjwdo466-497KxvxdmtvpbBrown Memorial HospitalComment on above:Performed By: #### 57462-3 #### PACHECO Ferraro ([id number]) [facility] ([facility]) [address] [place] [address] 42667Labyz gap 4 (BldA) [Moles/Vol]10UnPremier Health Upper Valley Medical CenterBase excess Calc (Bld) [Moles/Vol]-1.3000 mmol/L-2.0 - 3.0 mmol/L [facility] CenterCalcium.ionized (BldA) [Moles/Vol]1.15 mmol/L 1.10 - 1.33 mmol/[facility]tering HealthChloride (BldA) [Moles/Vol] 106 mmol/L98 - 107 mmol/[facility] HealthCO2 (Bld) [Partial pressure]40 mm[Hg][facility] CenterGlucose [Mass/Vol]224 mg/dL High74 - 99 mg/dLUC Medical CenterHCO3 (Bld) [Moles/Vol]23.7 mmol/L22.0 - 26.0 mmol/[facility] HealthHematocrit Est (Bld) [Volume fraction]36.0 %Low41.0 - 52.0 %[facility] Hemoglobin (Bld) [Mass/Vol]12.0 g/dLLow13.5 - 17.5 g/dLUC Medical CenterInhaled oxygen frneooowtxnus10 %[facility] Interpretation and review of laboratory resultsAbnormalUniMercer County Community HospitalLactate (BldA) [Moles/Vol]1.4 mmol/L0.4 - 2.0 mmol/[facility] HealthOxygen (Bld) [Partial pressure]197 mm[Hg]HighUC Medical CenterOxyhemoglobin (BldA) [Mass fraction]98.4 %High94.0 - 98.0 %[facility] CenterpH (Bld)7.38 [pH]7.38 - 7.42 pHUC Medical CenterPotassium (BldA) [Moles/Vol]4.1 mmol/L3.5 - 5.3 mmol/L [facility] CenterSodium (BldA) [Moles/Vol]136 mmol/L136 - 145 mmol/[facility] HealthUnPremier Health Upper Valley Medical CenterAnion gap 4 (BldA) [Moles/Vol]10 mmo/ISuvbab49-83FmxmfrxmsdBrown Memorial HospitalComment on above:Performed By: #### [id number] #### PACHECO Ferraro ([id number]) [facility] ([facility]) [address] [place] [id number] excess Calc (Bld) [Moles/Vol]-1.3000 mmol/LNormal -2.0-3.0UnBrown Memorial HospitalComment on above:Performed By: #### [id number] #### PACHECO Ferraro ([id number]) [facility] ([facility]) [address] [place] [address] [id number].ionized (BldA) [Moles/Vol]1.15 mmol/LNormal1.10-1.33 [facility]ittman Medical CenterComment on above:Performed By: #### [id number] #### PACHECO Ferraro ([id number]) [facility] ([facility]) [address] [place], [place] [address]Zhxcferk (BldA) [Moles/Vol]106 mmol/BRxvllb34-989UxynsaounmBrown Memorial HospitalComment on above:Performed By: #### [id number] #### PACHECO Ferraro ([id number]) [facility] ([facility]) [id number] [place] [address] [id number] (Bld) [Partial pressure]40 mm HoCkadbf78-56OcmjvaxhxrBrown Memorial HospitalComment on above:Performed By: #### 80316-9 #### PACHECO Ferraro ([id number]) [facility] ([facility]) [address] [place] [address] 91927Pspviyp [Mass/Vol]224 mg/iIGnvr77-59GpupevohzaBrown Memorial HospitalComment on above:Performed By: #### 05011-1 #### PACHECO Ferraro ([id number]) [facility] ([facility]) [address] [place] [address] 35128KXU3 (Bld) [Moles/Vol]23.7 mmol/DQebvrz64.0-26.0UnBrown Memorial HospitalComment on above:Performed By: #### 84838-4 #### PACHECO Ferraro ([id number]) [facility] ([facility]) [address] [place] [address] 78094Pmmqsxriju Est (Bld) [Volume fraction]36.0 %Low41.0-52.0 [facility]ittman Medical CenterComment on above:Performed By: #### 91986-6 #### PACHECO Ferraro ([id number]) [facility] ([facility]) [address] [place] [address] 35674Waapfpsbiy (Bld) [Mass/Vol]12.0 g/dLLow13.5-17.5UnBrown Memorial HospitalComment on above:Performed By: #### 50296-2 #### PACHECO Ferraro ([id number]) [facility] ([facility]) [address] [place], [place] [address]Jlnfrbk oxygen lyhifecvslwhn97 %NormalUnBrown Memorial HospitalComment on above:Performed By: #### 51405-3 #### PACHECO Ferraro ([id number]) [facility] ([facility]) [address] [place] [address] 31883Tublwor (BldA) [Moles/Vol]1.4 mmol/LNormal0.4-2.0UnBrown Memorial HospitalComment on above:Performed By: #### 18287-3 #### PACHECO Ferraro ([id number]) [facility] ([facility]) [address] [place] [address] 79431Cquulm (Bld) [Partial pressure]197 mm DqEvvp82-88RbujnetddaBrown Memorial HospitalComment on above:Performed By: #### 19892-1 #### PACHECO Ferraro ([id number]) [facility] ([facility]) [address] [place] [address] 62739Pvkmkphyrovxn (BldA) [Mass fraction]98.4 %High94.0-98.0 [facility]ittman Medical CenterComment on above:Performed By: #### 94272-0 #### PACHECO Ferraro ([id number]) [facility] ([facility]) [address] [place] [address] 16103hC (Bld)7.38 [pH]Normal7.38-7.42UnBrown Memorial HospitalComment on above:Performed By: #### 45217-9 #### PACHECO Ferraro ([id number]) [facility] ([facility]) [address] [place] [address] 85234Blytnycfr (BldA) [Moles/Vol]4.1 mmol/LNormal3.5-5.3UnBrown Memorial HospitalComment on above:Performed By: #### 08006-2 #### PACHECO Ferraro ([id number]) [facility] ([facility]) [address] [place] [address] 39699Xstizz (BldA) [Moles/Vol]136 mmol/ISvdonz428-773QrtfyeotpfBrown Memorial HospitalComment on above:Performed By: #### 49829-9 #### PACHECO Ferraro ([id number]) [facility] ([facility]) [address] [place], [place] [address]Anion gap 4 (BldA) [Moles/Vol]11UnPremier Health Upper Valley Medical CenterBase excess Calc (Bld) [Moles/Vol]-2.3000 mmol/LLow-2.0 - 3.0 mmol/L [facility] CenterCalcium.ionized (BldA) [Moles/Vol]1.20 mmol/L 1.10 - 1.33 mmol/Kettering HealthChloride (BldA) [Moles/Vol] 105 mmol/L98 - 107 mmol/Kettering HealthCO2 (Bld) [Partial pressure]38 mm[Hg][facility] Medical CenterGlucose [Mass/Vol]145 mg/dL High74 - 99 mg/dLUnPremier Health Upper Valley Medical CenterHCO3 (Bld) [Moles/Vol]22.5 mmol/L22.0 - 26.0 mmol/Kettering HealthHematocrit Est (Bld) [Volume fraction]37.0 %Low41.0 - 52.0 %[facility] Hemoglobin (Bld) [Mass/Vol]12.4 g/dLLow13.5 - 17.5 g/dLUnPremier Health Upper Valley Medical CenterInhaled oxygen mzsxaoubnkdkz17 %[facility] Interpretation and review of laboratory resultsAbnormalUniversSt. Vincent Anderson Regional HospitalLactate (BldA) [Moles/Vol]1.1 mmol/L0.4 - 2.0 mmol/Kettering HealthOxygen (Bld) [Partial pressure]209 mm[Hg]HighUnPremier Health Upper Valley Medical CenterOxyhemoglobin (BldA) [Mass fraction]98.0 %94.0 - 98.0 % [facility] Medical CenterpH (Bld)7.38 [pH]7.38 - 7.42 pHUnPremier Health Upper Valley Medical CenterPotassium (BldA) [Moles/Vol]2.9 mmol/LCritically low3.5 - 5.3 mmol/Kettering HealthSodium (BldA) [Moles/Vol]136 mmol/L 136 - 145 mmol/LUnPremier Health Upper Valley Medical CenterUnPremier Health Upper Valley Medical CenterAnion gap 4 (BldA) [Moles/Vol]11 mmo/LKayvmi13-74PrlhfaycdvSumma Health Wadsworth - Rittman Medical CenterComment on above:Performed By: #### 90275-6 #### PACHECO Ferraro ([id number]) [facility] ([facility]) [address] [place] [address] 48955Eaeh excess Calc (Bld) [Moles/Vol]-2.3000 mmol/LLow-2.0-3.0 [facility]itt[facility] Medical CenterComment on above:Performed By: #### 53963-8 #### PACHECO Ferraro ([id number]) [facility] ([facility]) [address] [place] [address] 14530Eflvhoz.ionized (BldA) [Moles/Vol]1.20 mmol/LNormal1.10-1.33 [facility]itt[facility] Medical CenterComment on above:Performed By: #### 40748-4 #### PACHECO Ferraro ([id number]) [facility] ([facility]) [address] [place] [address] 54685Zqjozckt (BldA) [Moles/Vol]105 mmol/XDhtwoq43-518HxndbpklloSumma Health Wadsworth - Rittman Medical CenterComment on above:Performed By: #### 42890-7 #### PACHECO Ferraro (74746) [facility] ([facility]) [address] [place] [address] 04687WI9 (Bld) [Partial pressure]38 mm MvDdkayv25-40DdwevkndbvSumma Health Wadsworth - Rittman Medical CenterComment on above:Performed By: #### 74239-5 #### PACHECO Ferraro ([id number]) [facility] ([facility]) [address] [place] [address] 12636Qyisqnr [Mass/Vol]145 mg/hEOtrp22-44FinrvevrynSumma Health Wadsworth - Rittman Medical CenterComment on above:Performed By: #### 00542-6 #### PACHECO Ferraro ([id number]) [facility] ([facility]) [address] [place] [address] 77345AWO9 (Bld) [Moles/Vol]22.5 mmol/SOkogte58.0-26.0[facility]itt[facility] Medical CenterComment on above:Performed By: #### 84422-2 #### PACHECO Ferraro ([id number]) [facility] ([facility]) [address] [place] [address] 87397Pllnqbryrs Est (Bld) [Volume fraction]37.0 %Low41.0-52.0 [facility]itt[facility] Medical CenterComment on above:Performed By: #### 73030-5 #### PACHECO Ferraro ([id number]) [facility] ([facility]) [address] [place] [address] 85219Acbzrmzkwb (Bld) [Mass/Vol]12.4 g/dLLow13.5-17.5[facility]itt[facility] Medical CenterComment on above:Performed By: #### 12468-7 #### PACHECO Ferraro (55055) [facility] ([facility]) [address] [place] [address] 34611Lzrgpeu oxygen hungjlrtojyca52 %NormalUnBrown Memorial HospitalComment on above:Performed By: #### 13350-2 #### PACHECO Ferraro ([id number]) [facility] ([facility]) [address] [place] [address] 72485Fagcfrj (BldA) [Moles/Vol]1.1 mmol/LNormal0.4-2.0[facility] Medical CenterComment on above:Performed By: #### 15000-9 #### PACHECO Ferraro ([id number]) [facility] ([facility]) [address] [place] [address] 70880Xnwxdm (Bld) [Partial pressure]209 mm QqBayd83-67UqhrmccpvoBrown Memorial HospitalComment on above:Performed By: #### 42122-5 #### PACHECO Ferraro ([id number]) [facility] ([facility]) [address] [place] [address] 96293Aqjwjybwokntu (BldA) [Mass fraction]98.0 %Oyceqj87.0-98.0 [facility] Medical CenterComment on above:Performed By: #### 39224-6 #### PACHECO Ferraro ([id number]) [facility] ([facility]) [address] [place] [address] 10145fX (Bld)7.38 [pH]Normal7.38-7.42UnBrown Memorial HospitalComment on above:Performed By: #### 45214-2 #### PACHECO Ferraro ([id number]) [facility] ([facility]) [address] [place] [address] 43064Kqdjdzslj (BldA) [Moles/Vol]2.9 mmol/LCritically low3.5-5.3 [facility] Medical CenterComment on above:Performed By: #### 20137-2 #### PACHECO Ferraro ([id number]) [facility] ([facility]) [address] [place] [address] 13778Lvqmcu (BldA) [Moles/Vol]136 mmol/WNacohe691-267EahyqfzoctBrown Memorial HospitalComment on above:Performed By: #### 05738-8 #### PACHECO Ferraro ([id number]) [facility] ([facility]) [address] [place] [address] 51251Ayzsjtk Test strip manual (Bld) [Mass/Vol]on 06-01-2023 Glucose [Mass/Vol]178 mg/pWObmz81 - 99 mg/dLUnPremier Health Upper Valley Medical Center Interpretation and review of laboratory resultsAbnoOhio Valley Surgical HospitalUnPremier Health Upper Valley Medical CenterGlucose [Mass/Vol]178 mg/cASexc50-36 [facility] Medical CenterComment on above:Performed By: #### 51819-1 #### PACHECO Ferraro ([id number]) [facility] ([facility]) [address] [place] [address] 79024Roysucz [Mass/Vol]99 mg/dL74 - 99 mg/dLUnPremier Health Upper Valley Medical CenterInterpretation and review of laboratory resultsNormalUWright-Patterson Medical CenterGlucose [Mass/Vol]99 mg/iWGhsoui58-88OffpgjlgqhSumma Health Wadsworth - Rittman Medical CenterComment on above: Performed By: #### 2341-6 #### PACHECO Ferraro ([id number]) [facility] ([facility]) [address] [place] [address] 51905Ugpzdszgife 35-66-3907Sjzluuuvj [Mass/Vol]1.74 mg/dL1.60 - 2.40 mg/dLUC Medical CenterMagnesium [Mass/Vol]1.74 mg/dLNormal 1.60-2.40[facility] Medical CenterComment on above:Performed By: #### 26320-8 #### PACHECO Ferraro ([id number]) [facility] ([facility]) [address] [place] [address] 04918Axsjusrmk [Mass/Vol]on 86-08-3337Qxdacvxsxxwmmh and review of laboratory resultsNormalUWright-Patterson Medical CenterVERAB/VERIFY ABORHon 77-32-1818SNZ group Nom (Bld)ONVan Wert County HospitalComment on above:Performed By: #### VERAB #### PACHECO Ferraro ([id number]) [facility] ([facility]) [address] [place] [address] 08758Y Ag Ql (Bld)NegativeNoFostoria City HospitalComment on above:Performed By: #### VERAB #### PACHECO Ferraro ([id number]) [facility] ([facility]) [address] [place] [address] 28235Fvkqyz ABO/Rh Group Test (VERAB)on 33-42-0570AKW group Nom (Bld)OUBluffton HospitalD Ag Ql (Bld)NegativeOhioHealth Riverside Methodist HospitalXR tomography Unspecified body regionon 65-36-4947Tlkpe images are not reportable by radiology and will not be interpreted by Radiologists.IMAGINGThese images are not reportable by radiology and will not be interpreted by Radiologists.IMAGINGNo Panel InformationOrdered By: Antione Hong on 90-83-6099Bixmrf Ibrp06DYMDxaiytfszhOur Lady of [facility] Work Phone: P Xjbz8ralwlojYfxtblbjbhUC Medical Center Work Phone: P Nfbdbv559 [facility] Work Phone: P Pwwny644 [facility] Work Phone: PR Vhpsftyi329 [facility] Work Phone: Q Excld476 [facility] Work Phone: QRS Qxgpn59dgstbOiaetnutjbMercer County Community Hospital Work Phone: QRS Imhezawo45 [facility] Work Phone: QT Cyhcomgg314 [facility] Work Phone: QTC Calculation(Bazett)414 [facility] Work Phone: QTC Dmhvpswtvr317 [facility] Work Phone: R Poquoson-20deGlenbeigh Hospital Work Phone: T Vvru15khvjzcdRpwlybsqhxGlenbeigh Hospital Work Phone: T Kaucxg838 [facility] Work Phone: Ventricular Zptd85AKKHtmyrctaeqOur Lady of [facility] Work Phone: [facility] Work Phone: No Panel Informationon 01-31-0265Cwujob sinus rhythm Nonspecific T wave abnormality No previous ECGs available Confirmed by Antione Hong ([id number]) on 05/18/2023 4:34:09 PMAntione Pittman MD - 05/18/2023 Normal sinus rhythm Nonspecific T wave abnormality No previous ECGs available Confirmed by Antione Hong ([id number]) on 05/18/2023 4:34:09 PM [facility] Work Phone: basic metabolic 2000 panelon 37-43-1900Tzxma gap [Moles/Vol]15 mmol/LVnnzal82-82UwoyewfehkSumma Health Wadsworth - [facility] Medical Center Comment on above:Performed By: #### 56095-1 #### PACHECO Ferraro ([id number]) [facility] ([facility]) [address] [place], [place] [address]Fgcyecd [Mass/Vol]10.1 mg/dLNormal8.6-10.6[facility] Rittman Medical CenterComment on above:Performed By: #### 86002-2 #### PACHECO Ferraro ([id number]) [facility] ([facility]) [address] [place] [address] 69558Vnwgvyrn [Moles/Vol]107 mmol/LYujkvl84-911NoxbanfspjBrown Memorial HospitalComment on above:Performed By: #### 42002-9 #### PACHECO Ferraro ([id number]) [facility] ([facility]) [address] [place], [place] [address]SZ9 [Moles/Vol]23 mmol/NOybdag15-03UanuaflktqSumma Health Wadsworth - Rittman Medical CenterComment on above:Performed By: #### 43061-6 #### PACHECO Ferraro ([id number]) [facility] ([facility]) [address] [place], [place] [address]Uamvubmxhx [Mass/Vol]0.73 mg/dLNormal0.50-1.30[facility] Rittman Medical CenterComment on above:Performed By: #### 93600-1 #### PACHECO Ferraro ([id number]) [facility] ([facility]) [address] [place], [place] [address]ZWU/1.73 sq M.predicted MDRD (S/P/Bld) [Vol rate/Area] mL/min/{1.73_m2}Normal>60UnBrown Memorial HospitalComment on above:Result Comment: Calculations of estimated GFR are performed using the 2020 CKD-EPI Study Refit equation without the race variable for the IDMS-Traceable creatinine methods. https://jasn.asnjournals.org/content//ASN.1943603716Dkxjigqbk By: #### 45945-1 #### PACHECO Ferraro ([id number]) [facility] ([facility]) [address] [place] [address] 66675Lbrxuen [Mass/Vol]89 mg/kPUoksfo75-88BokikpabvjSumma Health Wadsworth - Rittman Medical CenterComment on above:Performed By: #### 59902-1 #### PACHECO Ferraro ([id number]) [facility] ([facility]) [address] [place] [address] 89889Sxfonqrgi [Moles/Vol]3.9 mmol/LNormal3.5-5.3[facility]itt[facility] Medical CenterComment on above:Performed By: #### 77087-8 #### PACHECO Ferraro ([id number]) [facility] ([facility]) [address] [place] [address] 65315Agdsmy [Moles/Vol]141 mmol/BFeiyjn559-387RgegksfpmoSumma Health Wadsworth - Rittman Medical CenterComment on above:Performed By: #### 75733-3 #### PACHECO Ferraro ([id number]) [facility] ([facility]) [address] [place] [address] 15371Oxub nitrogen [Mass/Vol]13 mg/dLNormal6-23Sum[facility] Rittman Medical CenterComment on above:Performed By: #### 65403-8 #### PACHECO Ferraro ([id number]) [facility] ([facility]) [address] [place] [address] 61891Lpwtm type and Indirect antibody screen panel (Bld)on 72-10-5224EGX group Nom (Bld)ONormalSumma Health Wadsworth - Rittman Medical CenterComment on above:Performed By: #### 16530-3 #### PACHECO Ferraro ([id number]) [facility] ([facility]) [address] [place] [address] 94456Ljpoc group antibody screen QlNegativeNormalUniversChillicothe VA Medical CenterComment on above:Performed By: #### 50158-8 #### PACHECO Ferraro ([id number]) [facility] ([facility]) [address] [place], [place] [address]P Ag Ql (Bld)NegativeNormalUniversChillicothe VA Medical CenterComment on above:Result Comment: 2nd ABO test required. Order and Collect VERABPerformed By: #### 09016-6 #### PACHECO Ferraro (36536) [facility] ([facility]) [address] [place] [address] 97608IOQ panel Auto (Bld)on 26-89-8762Czovdvugrxc distribution width (RBC) [Ratio]14.4 %Qnppsn73.5-14.5[facility] Rittman Medical CenterComment on above:Performed By: #### 22016-2 #### PACHECO Ferraro (47512) [facility] ([facility]) [address] [place] [address] 07938Evipvbpadz (Bld) [Volume fraction]42.8 %Efqxzt17.0-52.0 [facility] Ritt[facility] Medical CenterComment on above:Performed By: #### 21197-4 #### PACHECO Ferraro ([id number]) [facility] ([facility]) [address] [place] [address] 55771Unkxqboywq (Bld) [Mass/Vol]14.3 g/uVXnarbf70.5-17.5[facility]itt[facility] Medical CenterComment on above:Performed By: #### 64240-4 #### PACHECO Ferraro ([id number]) [facility] ([facility]) [address] [place] [address] 48392VUE (RBC) [Entitic mass]29.3 vvLnwmdh90.0-34.0[facility] Rittman Medical CenterComment on above:Performed By: #### 32014-3 #### PACHECO Ferraro ([id number]) [facility] ([facility]) [address] [place] [address] 60438RFHD (RBC) [Mass/Vol]33.4 g/kFWkmamz07.0-36.0[facility]ittman Medical CenterComment on above:Performed By: #### 35041-6 #### PACHECO Ferraro ([id number]) [facility] ([facility]) [address] [place] [address] 78874UXA (RBC) [Entitic vol]88 uXTnrffr88-891MqdfescvqfBrown Memorial HospitalComment on above:Performed By: #### 42493-7 #### PACHECO Ferraro ([id number]) [facility] ([facility]) [address] [place], [place] [address]Nlurdxayt RBC/100 WBC (Bld) [Ratio]0.0 /100 WBCsNormal0.0-0.0 [facility]itt[facility] Medical CenterComment on above:Performed By: #### 45400-6 #### PACHECO Ferraro ([id number]) [facility] ([facility]) [address] [place] [address] 58572Jhstqeztr (Bld) [#/Vol]287 x10*3/qJPnxwom053-682ZicizsnoewBrown Memorial HospitalComment on above:Performed By: #### 26202-1 #### PACHECO Ferraro ([id number]) [facility] ([facility]) [address] [place] [address] 45328EHU (Bld) [#/Vol]4.88 x10*6/uLNormal4.50-5.90UnBrown Memorial HospitalComment on above:Performed By: #### 74522-5 #### PACHECO Ferraro ([id number]) [facility] ([facility]) [address] [place] [address] 53954MIV (Bld) [#/Vol]6.6 x10*3/uLNormal4.4-11.3Sum[facility] Rittman Medical CenterComment on above:Performed By: #### 78221-2 #### PACHECO Ferraro ([id number]) [facility] ([facility]) [address] [place] [address] 35443UUP 12-LEADon 08-69-4712LBD 12-LEADVentricular Rate 73 Atrial Rate 73 P-R Interval 144 QRS Duration 86 Q-T Interval 376 QTC Calculation(Bazett) 414 P Poquoson 2 R Poquoson -20 T Poquoson 15 QRS Count 12 Q Onset 213 P Onset 141 P Offset 186 T Offset 401 QTC Fredericia 401 Diagnosis Normal sinus rhythm Nonspecific T wave abnormality No previous ECGs available Confirmed by Antione Hong ([id number]) on 05/18/2023 4:34:09 PMNGlencoe Regional Health Servicestaphylococcus aureus.methicillin resistant isolateon 05-17-2023 MRSA isol Org specific cx Ql (Nose)Test: Staphylococcus aureus/MRSA colonization, Culture Specimen Source: Anterior Nares Specimen Type: Swab Specimen Date: 05/17/2023 1:43 PM Result Date: 05/19/2023 8:32 AM Result Status: Final result Abnormal: Yes Resulting Lab: [facility] [address] [place] [address] CULTURE Isolated: Methicillin Susceptible Staphylococcus aureus (MSSA) (Abnormal) AbnormalSumma Health Wadsworth - Rittman Medical CenterComment on above:Performed By: #### 82638-2 #### PACHECO Ferraro ([id number]) [facility] ([facility]) [address] [place] [address] 84305LvZ6k (Bld) [Mass fraction]on 29-02-8778Xqyotkb glucose Estimated from glycated hemoglobin (Bld) [Mass/Vol]148 mg/dLNormalNot EstablishedSumma Health Wadsworth - Rittman Medical CenterComment on above:Order Comment: Diagnosis of Diabetes-Adults Non-Diabetic: < or = 5.6% Increased risk for developing diabetes: 5.7-6.4% Diagnostic of diabetes: > or = 6.5% Monitoring of Diabetes Age (y)....................... Therapeutic Goal (%) Adults: >18.........................<7.0 Pediatrics: 13-18...................<7.5 Pediatrics: 7-12....................<8.0 Pediatrics: 0-6..................... 7.5-8.5 [place] [employer]. Diabetes Care 33(S1)Mar 2009Performed By: #### 4548-4 #### PACHECO Ferraro ([id number]) [facility] ([facility]) [address] [place], [place] [address]Cklfdjpvsm A1c/Hemoglobin.totalon 43-77-6376LfA3b (Bld) [Mass fraction]6.8 %HighMercy Health St. Elizabeth Boardman HospitalComment on above:Order Comment: Diagnosis of Diabetes-Adults Non-Diabetic: < or = 5.6% Increased risk for developing diabetes: 5.7-6.4% Diagnostic of diabetes: > or = 6.5% Monitoring of Diabetes Age (y)....................... Therapeutic Goal (%) Adults: >18.........................<7.0 Pediatrics: 13-18...................<7.5 Pediatrics: 7-12....................<8.0 Pediatrics: 0-6..................... 7.5-8.5 [place] [employer]. Diabetes Care 33(S1)Mar 2009Performed By: #### 4548-4 #### PACHECO Ferraro ([id number]) [facility] ([facility]) [address] [place], [place] [address]ML lumbar spine wo conon 89-82-7756BK lumbar spine wo [facility] Main [address] [address] MRI Report Signed Patient: Lobito Tomlin MR#: [id number] : 1960 Acct:[id number] Age/Sex: 62 / M ADM Date: 12/15/22 Loc: [facility] Room: Type: [facility] CL Attending Dr: Sully Barney NP Copies to: [...] Prakash Zavala M.D.12/15/2022 3:12 PM Dictation Location: [place] [address] Transcribed By: [facility] 12/15/22 1512 Dictated By: Prakash Zavala II, MD 12/15/22 1500 Signed By: 12/15/22 1512[facility] min 2V(w/wo pelvis)*on [id number] hip RT min 2V(w/wo pelvis)*[facility] Main [place] [address] [place] [address] XRay Report Signed Patient: Lobito Tomlin MR#: [id number] : 1960 Acct:[id number] Age/Sex: 62 / M ADM Date: 10/16/22 [...] Raulito Abbasi M.D.10/16/2022 2:39 PM Dictation Location: [facility] Transcribed By: [facility] 10/16/22 1439 Dictated By: Raulito Abbasi DO 10/16/22 1437 Signed By: 10/16/22 1439[facility] lumbar spine AP/LAT/FLX/EXTon [id number] lumbar spine AP/LAT/FLX/[facility] [place] [address] XRay Report Signed Patient: Lobito Tomlin MR#: [id number] : 1960 Acct:[id number] Age/Sex: 62 / M ADM Date: 10/16/22 Loc: XD Room: Type: [facility] Attending Dr: bAel Sandoval MD Copies to: Abel Sandoval MD [...] West Jr., D.OAmy10/16/2022 2:44 PM Dictation Location: [facility] Transcribed By: [facility] 10/16/22 1444 Dictated By: Roberto West Jr, DO 10/16/22 1440 Signed By: 10/16/22 1444[facility] AUTO DIFFon 07-19-2022 BASO #0.1 103/ulNormal0.0-0.1The [facility] HospitalComment on above:Performed By: #### CBC #### [facility] [address] [address] [address] Mariann OdomBasophils/100 WBC (Bld)0.9 %Normal0.2-2.0The [facility] Comment on above:Performed By: #### CBC #### [facility] [address] [address] [address] Mariann Tolbert #0.3 103/ulNormal0.0-0.7The [facility] HospitalComment on above: Performed By: #### CBC #### [facility] [address] [place] [address] Dr. Mariann Wyattosinophils/100 WBC (Bld)4.9 %Normal0.9-7.0The [facility] Comment on above:Performed By: #### CBC #### [facility] [address] [place] [address] Dr. Mariann Wyattrythrocyte distribution width (RBC) [Ratio]14.8 %Zuhfxo43.0-15.0 [facility] HospitalComment on above:Performed By: #### CBC #### [facility] [address] [place] [address] Dr. Mariann OdomHematocrit (Bld) [Volume fraction]41.5 %Critically low42.0-54.0 [facility] HospitalComment on above:Performed By: #### CBC #### [facility] [address] [place] [address] Dr. Mariann OdomHemoglobin (Bld) [Mass/Vol]13.3 g/dLCritically low14.0-18.0The [facility] HospitalComment on above:Performed By: #### CBC #### [facility] [address] [place] [address] Dr. Mariann Guy #0.02 10e3/ulNormal0.00-0.03The [facility] HospitalComment on above:Performed By: #### CBC #### [facility] [address] [place] [address] Dr. Mariann Guy %0.4 %Normal0.0-0.5The [facility] HospitalComment on above: Performed By: #### CBC #### [facility] [address] [place] [address] Dr. Mariann Hernandez #1.8 103/ulNormal1.2-3.8The [facility] HospitalComment on above:Performed By: #### CBC #### [facility] [address] [place] [address] Dr. Mariann Younghocytes/100 WBC (Bld)33.1 %Gvwptq11.5-60.0The [facility] HospitalComment on above:Performed By: #### CBC #### [facility] [address] [place] [address] Dr. Mariann Shin DIFF REQNONormalThe [facility] HospitalComment on above: Performed By: #### CBC #### [facility] [address] [place] [address] Dr. Mariann Dahl (RBC) [Entitic mass]28.1 meFmnsux07.9-34.0The [facility] HospitalComment on above:Performed By: #### CBC #### [facility] [address] [place] [address] Dr. Mariann Navarro (RBC) [Mass/Vol]32.0 g/zQWarcro08.9-35.2The [facility] HospitalComment on above:Performed By: #### CBC #### [facility] [address] [place] [address] Dr. Mariann Chacon (RBC) [Entitic vol]87.7 nVUwvtuw24.0-94.0The [facility] HospitalComment on above:Performed By: #### CBC #### [facility] [address] [place] [address] Dr. Mariann Zabaal #0.6 103/ulNormal0.3-0.8The [facility] HospitalComment on above:Performed By: #### CBC #### [facility] [address] [place] [address] Dr. Mariann Scruggsocytes/100 WBC (Bld)11.7 %Normal1.7-12.0The [facility] Comment on above:Performed By: #### CBC #### [facility] [address] [place] [address] Dr. Mariann Faria #2.6 103/ulNormal1.4-6.5The [facility] HospitalComment on above:Performed By: #### CBC #### [facility] [address] [place] [address] Dr. Mariann Barillasutrophils/100 WBC (Bld)49.0 %Chevry23.0-75.0The [facility] HospitalComment on above:Performed By: #### CBC #### [facility] [address] [place] [address] Dr. Mariann Schraderlet mean volume (Bld) [Entitic vol]11.2 fLNormal9.5-13.5The [facility] HospitalComment on above:Performed By: #### CBC #### [facility] [address] [place] [address] Dr. Mariann HardwickT301 103/irKyyaft533-047Ndh [facility] HospitalComment on above: Performed By: #### CBC #### [facility] [address] [place] [address] Dr. Mariann OdomRBC4.73 106/ulNormal4.70-6.10The [facility] HospitalComment on above:Performed By: #### CBC #### [facility] [address] [place] [address] Dr. Mariann OdomWBC5.3 103/ulNormal4.0-11.0The [facility] HospitalComment on above: Performed By: #### CBC #### [facility] [address] [place] [address] Dr. Yilan ChangPROF 14(COMP METB)on 12-04-4238Hjctlcf [Mass/Vol]4.0 g/dLNormal 3.4-5.0The [facility] HospitalComment on above:Performed By: #### CMP #### [facility] [address] [place] [address] Dr. Mariann OdomAlbumin/Globulin [Mass ratio]1.0 {ratio}NormalThe [facility] HospitalComment on above:Performed By: #### CMP #### [facility] [address] [place] [address] Dr. Mariann BirdP [Catalytic activity/Vol]99 U/CGtvacn01-840Ukk [facility] HospitalComment on above:Performed By: #### CMP #### [facility] [address] [place] [address] Dr. Mariann BirdT [Catalytic activity/Vol]36 U/ZBktbuq51-84Hsi [facility] HospitalComment on above:Performed By: #### CMP #### [facility] [address] [place] [address] Dr. Mariann Valentineon gap [Moles/Vol]10.6 mmol/LNormalThe [facility] Comment on above:Performed By: #### CMP #### [facility] [address] [place] [address] Dr. Mariann OdomAST [Catalytic activity/Vol]21 U/MHjjarg97-28Xkx [facility] HospitalComment on above:Performed By: #### CMP #### [facility] [address] [place] [address] Dr. Mariann OdomBilirubin [Mass/Vol]0.2 mg/dLNormal0.2-1.0The [facility] Comment on above:Performed By: #### CMP #### [facility] [address] [place] [address] Dr. Mariann OdomCalcium [Mass/Vol]9.6 mg/dLNormal8.5-10.1The [facility] Comment on above:Performed By: #### CMP #### [facility] [address] [place] [address] Dr. Mariann OdomChloride [Moles/Vol]102 mmol/POdetuh45-852Kqb [facility] Comment on above:Performed By: #### CMP #### [facility] [address] [place] [address] Dr. Mariann OdomCO2 [Moles/Vol]30.5 mmol/NOazgan03.0-32.0The [facility] Comment on above:Performed By: #### CMP #### [facility] [address] [address] [address] Mariann OdomCreatinine [Mass/Vol]0.93 mg/dLNormal0.70-1.30The [facility] HospitalComment on above:Performed By: #### CMP #### [facility] [address] [place] [address] Dr. Mariann WyattGFR-AF [place]IZ[place]>60Normal>=60The [facility] HospitalComment on above:Performed By: #### CMP #### [facility] [address] [place] [address] Dr. Mariann WyattGFR-NON AF [place]IZ[place]>60Normal>=60The [facility] HospitalComment on above:Performed By: #### CMP #### [facility] [address] [place] [address] Dr. Mariann OdomGlobulin (S) [Mass/Vol]3.9 g/dLNormalThe [facility] HospitalComment on above:Performed By: #### CMP #### [facility] [address] [place] [address] Dr. Mariann OdomGlucose [Mass/Vol]126 mg/dLCritically hngf27-649Flq [facility] HospitalComment on above:Performed By: #### CMP #### [facility] [address] [place] [address] Dr. Mariann OdomPotassium [Moles/Vol]4.1 mmol/LNormal3.5-5.1The [facility] Comment on above:Performed By: #### CMP #### [facility] [address] [place] [address] Dr. Mariann OdomProtein [Mass/Vol]7.9 g/dLNormal6.4-8.2The [facility] Comment on above:Performed By: #### CMP #### [facility] [address] [place] [address] Dr. Mariann Starkdium [Moles/Vol]139 mmol/NYcwspr813-140Yzg [facility] Comment on above:Performed By: #### CMP #### [facility] [address] [place] [address] Dr. Mariann OdomUrea nitrogen [Mass/Vol]16.0 mg/dLNormal7.0-18.0The [facility] HospitalComment on above:Performed By: #### CMP #### [facility] [address] [place] [address] Dr. Mariann Garibay nitrogen/Creatinine [Mass ratio]17.2 mg/mgNormalThe [facility] HospitalComment on above:Performed By: #### CMP #### [facility] [address] [place] [address] Dr. Mariann Douglas RATE WESTERGRENon 24-23-1775HRX RATE13 mm/hrNormal<=20The [facility] HospitalComment on above:Performed By: #### SEDR #### [facility] [address] [place] [address] Dr. Mariann Alaniz AUTO DIFFon 81-23-1410HHOQ #0.1 103/ulNormal0.0-0.1[facility] HospitalComment on above:Performed By: #### CBC #### [facility] [address] [place] [address] Dr. Mariann OdomBasophils/100 WBC (Bld)0.9 %Normal0.2-2.0[facility] Comment on above:Performed By: #### CBC #### [facility] [address] [place] [address] Dr. Mariann Tolbert #0.2 103/ulNormal0.0-0.7The [facility] HospitalComment on above: Performed By: #### CBC #### [facility] [address] [place] [address] Dr. Mariann Wyattosinophils/100 WBC (Bld)4.2 %Normal0.9-7.0The [facility] Comment on above:Performed By: #### CBC #### [facility] [address] [place] [address] Dr. Mariann Wyattrythrocyte distribution width (RBC) [Ratio]14.3 %Qskrev06.0-15.0 [facility] HospitalComment on above:Performed By: #### CBC #### [facility] [address] [place] [address] Dr. Mariann OdomHematocrit (Bld) [Volume fraction]41.7 %Critically low42.0-54.0 The [facility] HospitalComment on above:Performed By: #### CBC #### [facility] [address] [place] [address] Dr. Mariann OdomHemoglobin (Bld) [Mass/Vol]13.6 g/dLCritically low14.0-18.0The [facility] HospitalComment on above:Performed By: #### CBC #### [facility] [address] [place] [address] Dr. Mariann OdomIG #0.01 10e3/ulNormal0.00-0.03The [facility] HospitalComment on above:Performed By: #### CBC #### [facility] [address] [place] [address] Dr. Mariann OdomIG %0.2 %Normal0.0-0.5ThSelect Medical [facility] Rehabilitation HospitalComment on above: Performed By: #### CBC #### [facility] [address] [place] [address] Dr. Mariann YoungH #1.6 103/ulNormal1.2-3.8The [facility] HospitalComment on above:Performed By: #### CBC #### [facility] [address] [place] [address] Dr. Mariann Peñalozamphocytes/100 WBC (Bld)28.8 %Ipofgo41.5-60.0The [facility] HospitalComment on above:Performed By: #### CBC #### [facility] [address] [place] [address] Dr. Mariann Shin DIFF REQNONormalThe [facility] HospitalComment on above: Performed By: #### CBC #### [facility] [address] [place] [address] Dr. Mariann Navarro (RBC) [Entitic mass]27.7 hqGelyeu42.9-34.0The [facility] HospitalComment on above:Performed By: #### CBC #### [facility] [address] [place] [address] Dr. Mariann Navarro (RBC) [Mass/Vol]32.6 g/pRMhydlv02.9-35.2The [facility] HospitalComment on above:Performed By: #### CBC #### [facility] [address] [place] [address] Dr. Mariann Navarro (RBC) [Entitic vol]84.9 rOTtgjgy97.0-94.0The [facility] HospitalComment on above:Performed By: #### CBC #### [facility] [address] [place] [address] Dr. Mariann Zabala #0.6 103/ulNormal0.3-0.8The [facility] HospitalComment on above:Performed By: #### CBC #### [facility] [address] [place] [address] Dr. Mariann Scruggsocytes/100 WBC (Bld)10.4 %Normal1.7-12.0The [facility] Comment on above:Performed By: #### CBC #### [facility] [address] [place] [address] Dr. Mariann Faria #3.2 103/ulNormal1.4-6.5The [facility] HospitalComment on above:Performed By: #### CBC #### [facility] [address] [place] [address] Dr. Mariann Barillasutrophils/100 WBC (Bld)55.5 %Txopuv22.0-75.0The [facility] HospitalComment on above:Performed By: #### CBC #### [facility] [address] [address] [address] Mariann OdomPlatelet mean volume (Bld) [Entitic vol]10.8 fLNormal9.5-13.5The [facility] on above:Performed By: #### CBC #### [facility] [address] [address] [address] Mariann OdomPLT269 103/gaBdwour511-594Hjr [facility] on above: Performed By: #### CBC #### [facility] [address] [place] [address] Dr. Mariann OdomRBC4.91 106/ulNormal4.70-6.10The [facility] on above:Performed By: #### CBC #### [facility] [address] [place] [address] Dr. Mariann OdomWBC5.7 103/ulNormal4.0-11.0The [facility] on above: Performed By: #### CBC #### [facility] [address] [place] [address] Dr. Mariann OdomPROF 14(COMP METB)on 46-90-8874Ibqymgj [Mass/Vol]3.6 g/dLNormal 3.4-5.0The [facility] on above:Performed By: #### CMP #### [facility] [address] [place] [address] Dr. Mariann OdomAlbumin/Globulin [Mass ratio]1.1 {ratio}NormalThe [facility] on above:Performed By: #### CMP #### [facility] [address] [place] [address] Dr. Mariann Gomez [Catalytic activity/Vol]95 U/EIxpnfe82-802Kej [facility] on above:Performed By: #### CMP #### [facility] [address] [place] [address] Dr. Mariann Vela [Catalytic activity/Vol]39 U/UGnibkk62-05Qkl [facility] on above:Performed By: #### CMP #### [facility] [address] [address] [address] Mariann OdomAnion gap [Moles/Vol]11.1 mmol/LNormalEast [facility] Comment on above:Performed By: #### CMP #### [facility] [address] [address] [address] Mariann OdomAST [Catalytic activity/Vol]25 U/RPlujxp89-25Uqa [facility] HospitalComment on above:Performed By: #### CMP #### [facility] [address] [address] [address] Mariann OdomBilirubin [Mass/Vol]0.3 mg/dLNormal0.2-1.0The [facility] Comment on above:Performed By: #### CMP #### [facility] [address] [place] [address] Dr. Mariann OdomCalcium [Mass/Vol]9.0 mg/dLNormal8.5-10.1[facility] Comment on above:Performed By: #### CMP #### [facility] [address] [address] [address] Mariann OdomChloride [Moles/Vol]104 mmol/HHsuhvn14-683Xjz [facility] Comment on above:Performed By: #### CMP #### [facility] [address] [place] [address] Dr. Mariann OdomCO2 [Moles/Vol]27.8 mmol/ERfwimj39.0-32.0The [facility] Comment on above:Performed By: #### CMP #### [facility] [address] [address] [address] Mariann OdomCreatinine [Mass/Vol]0.81 mg/dLNormal0.70-1.30The [facility] HospitalComment on above:Performed By: #### CMP #### [facility] [address] [place] [address] Dr. Waite ChangEGFR-AF [place]IZ[place]>60Normal>=60The [facility] HospitalComment on above:Performed By: #### CMP #### [facility] [address] [address] [address] Mariann WyattGFR-NON AF [place]>60Normal>=60The [facility] HospitalComment on above:Performed By: #### CMP #### [facility] [address] [address] [address] Mariann OdomGlobulin (S) [Mass/Vol]3.4 g/dLNormKnox Community HospitalComment on above:Performed By: #### CMP #### [facility] [address] [address] [address] Mariann OdomGlucose [Mass/Vol]189 mg/dLCritically zxjm54-701Ywi [facility] HospitalComment on above:Performed By: #### CMP #### [facility] [address] [address] [address] Mariann OdomPotassium [Moles/Vol]3.9 mmol/LNormal3.5-5.1The [facility] Comment on above:Performed By: #### CMP #### [facility] [address] [place] [address] Dr. Mariann OdomProtein [Mass/Vol]7.0 g/dLNormal6.4-8.2The [facility] Comment on above:Performed By: #### CMP #### [facility] [address] [place] [address] Dr. Mariann OdomSodium [Moles/Vol]139 mmol/VAliijc347-342Odf [facility] Comment on above:Performed By: #### CMP #### [facility] [address] [place] [address] Dr. Mariann OdomUrea nitrogen [Mass/Vol]14.0 mg/dLNormal7.0-18.0The [facility] HospitalComment on above:Performed By: #### CMP #### [facility] [address] [place] [address] Dr. Mariann OdomUrea nitrogen/Creatinine [Mass ratio]17.3 mg/mgNormalThSelect Medical [facility] HospitalComment on above:Performed By: #### CMP #### [facility] [address] [place] [address] Dr. Mariann Douglas RATE WESTERGRENon 61-77-4496AMA RATE24 mm/hrCritically high <=20The [facility] HospitalComment on above:Performed By: #### CMP #### [facility] [address] [address] [address] Mariann OdomGLYCOHEMOGLOBIN A1Con 40-25-7736FGK RECOMMENDATIONSEE BELOWNormal The [facility] HospitalComment on above:Result Comment: ADA RECOMMENDED LIMIT 4.0 - 6.0 ADA THERAPEUTIC TARGET < 7.0 ACTION SUGGESTED > 7.0Performed By: #### A1C #### [facility] [address] [address] [address] Mariann OdomGlucose [Mass/Vol]263 mg/dLNormalThe [facility] HospitalComment on above:Performed By: #### A1C #### [facility] [address] [place] [address] Dr. Mariann OdomHbA1c (Bld) [Mass fraction]10.8 %Critically high4.5-6.2The [facility] HospitalComment on above:Performed By: #### A1C #### [facility] [address] [address] [address] Mariann OdomCBC AUTO DIFFon 25-56-7299UJQV #0.0 103/ulNormal0.0-0.1The [facility] HospitalComment on above:Performed By: #### CMP #### [facility] [address] [address] [address] Mariann OdomBasophils/100 WBC (Bld)0.6 %Normal0.2-2.0The [facility] Comment on above:Performed By: #### CMP #### [facility] [address] [address] [address] Mariann Tolbert #0.4 103/ulNormal0.0-0.7The [facility] HospitalComment on above: Performed By: #### CMP #### [facility] [address] [address] [address] Mariann Wyattosinophils/100 WBC (Bld)5.0 %Normal0.9-7.0The [facility] Comment on above:Performed By: #### CMP #### [facility] [address] [place] [address] Dr. Mariann Wyattrythrocyte distribution width (RBC) [Ratio]13.5 %Ptqowe16.0-15.0 The [facility] HospitalComment on above:Performed By: #### CMP #### [facility] [address] [place] [address] Dr. Mariann OdomHematocrit (Bld) [Volume fraction]42.2 %Zoqjlf69.0-54.0The [facility] HospitalComment on above:Performed By: #### CMP #### [facility] [address] [place] [address] Dr. Mariann OdomHemoglobin (Bld) [Mass/Vol]13.9 g/dLCritically low14.0-18.0The [facility] HospitalComment on above:Performed By: #### CMP #### [facility] [address] [place] [address] Dr. Mariann Guy #0.02 10e3/ulNormal0.00-0.03The [facility] HospitalComment on above:Performed By: #### CMP #### [facility] [address] [place] [address] Dr. Mariann Guy %0.3 %Normal0.0-0.5The [facility] HospitalComment on above: Performed By: #### CMP #### [facility] [address] [place] [address] Dr. Mariann YoungH #1.8 103/ulNormal1.2-3.8The [facility] HospitalComment on above:Performed By: #### CMP #### [facility] [address] [place] [address] Dr. Mariann Peñalozamphocytes/100 WBC (Bld)24.7 %Nhzqou99.5-60.0The [facility] HospitalComment on above:Performed By: #### CMP #### [facility] [address] [place] [address] DrAmy Shin DIFF REQNONormalThe [facility] HospitalComment on above: Performed By: #### CMP #### [facility] [address] [place] [address] Dr. Mariann Navarro (RBC) [Entitic mass]28.3 ppVlrlsr75.9-34.0The [facility]Comment on above:Performed By: #### CMP #### [facility] [address] [place] [address] Dr. Mariann Navarro (RBC) [Mass/Vol]32.9 g/iITdhvbb67.9-35.2The [facility]Comment on above:Performed By: #### CMP #### [facility] [address] [place] [address] Dr. Mariann Navarro (RBC) [Entitic vol]85.9 rOVsnyxi96.0-94.0The [facility] HospitalComment on above:Performed By: #### CMP #### [facility] [address] [place] [address] Dr. Mariann Zabala #0.6 103/ulNormal0.3-0.8The [facility] HospitalComment on above:Performed By: #### CMP #### [facility] [address] [place] [address] Dr. Mariann Scruggsocytes/100 WBC (Bld)8.8 %Normal1.7-12.0The [facility] Comment on above:Performed By: #### CMP #### [facility] [address] [place] [address] Dr. Mariann Faria #4.4 103/ulNormal1.4-6.5The [facility] HospitalComment on above:Performed By: #### CMP #### [facility] [address] [place] [address] Dr. Mariann Barillasutrophils/100 WBC (Bld)60.6 %Fsnufs21.0-75.0The [facility] HospitalComment on above:Performed By: #### CMP #### [facility] [address] [place] [address] Dr. Mariann Schraderlet mean volume (Bld) [Entitic vol]11.2 fLNormal9.5-13.5The [facility] HospitalComment on above:Performed By: #### CMP #### [facility] [address] [place] [address] Dr. Mariann OdomPLT268 103/lnLwzjlg636-470Fmn [facility] HospitalComment on above: Performed By: #### CMP #### [facility] [address] [place] [address] Dr. Mariann OdomRBC4.91 106/ulNormal4.70-6.10The [facility] HospitalComment on above:Performed By: #### CMP #### [facility] [address] [place] [address] Dr. Mariann OdomWBC7.2 103/ulNormal4.0-11.0The [facility] HospitalComoakla[facility] on above: Performed By: #### CMP #### [facility] [address] [place] [address] Dr. Mariann OdomPROF 14(COMP METB)on 29-19-7714Yzgxhqt [Mass/Vol]3.8 g/dLNormal 3.4-5.0The [facility] on above:Performed By: #### CMP #### [facility] [address] [place] [address] Dr. Mariann OdomAlbumin/Globulin [Mass ratio]1.0 {ratio}NormalThe [facility]Com[facility] on above:Performed By: #### CMP #### [facility] [address] [place] [address] Dr. Mariann Gomez [Catalytic activity/Vol]95 U/SAdxmas02-626Zoz [facility] on above:Performed By: #### CMP #### [facility] [address] [place] [address] Dr. Mariann Vela [Catalytic activity/Vol]66 U/LCritically oaah62-06Rbz [facility] HospitalComment on above:Performed By: #### CMP #### [facility] [address] [place] [address] Dr. Mariann Kasper gap [Moles/Vol]12.7 mmol/LNormalEast [facility] Comment on above:Performed By: #### CMP #### [facility] [address] [address] [address] Mariann OdomAST [Catalytic activity/Vol]42 U/LCritically yhoj78-36Sfp [facility] HospitalComment on above:Performed By: #### CMP #### [facility] [address] [address] [address] Mariann OdomBilirubin [Mass/Vol]0.4 mg/dLNormal0.2-1.0The [facility] Comment on above:Performed By: #### CMP #### [facility] [address] [address] [address] Mariann OdomCalcium [Mass/Vol]9.0 mg/dLNormal8.5-10.1The [facility] Comment on above:Performed By: #### CMP #### [facility] [address] [place] [address] Dr. Mariann OdomChloride [Moles/Vol]101 mmol/JXnhglm59-476Lsz [facility] Comment on above:Performed By: #### CMP #### [facility] [address] [place] [address] Dr. Mariann OdomCO2 [Moles/Vol]27.0 mmol/RCymmbg17.0-32.0[facility] Comment on above:Performed By: #### CMP #### [facility] [address] [address] [address] Mariann OdomCreatinine [Mass/Vol]1.22 mg/dLNormal0.70-1.30The [facility] HospitalComment on above:Performed By: #### CMP #### [facility] [address] [place] [address] Dr. Mariann WyattGFR-AF VAT[place] CITIZ[place]>60Normal>=60The [facility] HospitalComment on above:Performed By: #### CMP #### [facility] [address] [place] [address] Dr. Mariann WyattGFR-NON AF [place]IZ[place]>60Normal>=60The [facility] HospitalComment on above:Performed By: #### CMP #### [facility] [address] [place] [address] Dr. Mariann OdomGlobulin (S) [Mass/Vol]3.7 g/dLNormKnox Community HospitalComment on above:Performed By: #### CMP #### [facility] [address] [address] [address] Mariann OdomGlucose [Mass/Vol]288 mg/dLCritically xzvh48-755Knp [facility] HospitalComment on above:Performed By: #### CMP #### [facility] [address] [place] [address] Dr. Mariann OdomPotassium [Moles/Vol]3.7 mmol/LNormal3.5-5.1The [facility] Comment on above:Performed By: #### CMP #### [facility] [address] [place] [address] Dr. Mariann OdomProtein [Mass/Vol]7.5 g/dLNormal6.4-8.2The [facility] Comment on above:Performed By: #### CMP #### [facility] [address] [place] [address] Dr. Mariann OdomSodium [Moles/Vol]137 mmol/CCokeib376-020NhbEast [facility] Hospital Comment on above:Performed By: #### CMP #### [facility] [address] [place] [address] Dr. Mariann OdomUrea nitrogen [Mass/Vol]13.0 mg/dLNormal7.0-18.0The [facility] HospitalComment on above:Performed By: #### CMP #### [facility] [address] [place] [address] Dr. Mariann Garibay nitrogen/Creatinine [Mass ratio]10.7 mg/mgNormalThSelect Medical [facility] Rehabilitation HospitalComment on above:Performed By: #### CMP #### [facility] [address] [place] [address] Dr. Mariann Douglas RATE [facility]HON[facility] CENTERRENon [id number] RATE26 mm/hrCritically high <=20The [facility] HospitalComment on above:Performed By: #### CMP #### [facility] [address] [place] [address] Dr. Mariann Alaniz AUTO DIFFon [id number] #0.0 103/ulNormal0.0-0.1The [facility] HospitalComment on above:Performed By: #### CMP #### [facility] [address] [place] [address] Dr. Mariann OdomBasophils/100 WBC (Bld)0.8 %Normal0.2-2.0The [facility] Comment on above:Performed By: #### CMP #### [facility] [address] [place] [address] Dr. Mariann Tolbert #0.2 103/ulNormal0.0-0.7The [facility] HospitalComment on above: Performed By: #### CMP #### [facility] [address] [place] [address] Dr. Mariann Wyattosinophils/100 WBC (Bld)4.5 %Normal0.9-7.0The [facility] Comment on above:Performed By: #### CMP #### [facility] [address] [place] [address] Dr. Mariann Wyattrythrocyte distribution width (RBC) [Ratio]15.0 %Kumtsc81.0-15.0 [facility] HospitalComment on above:Performed By: #### CMP #### [facility] [address] [place] [address] Dr. Mariann OdomHematocrit (Bld) [Volume fraction]40.6 %Critically low42.0-54.0 The [facility] HospitalComment on above:Performed By: #### CMP #### [facility] [address] [place] [address] Dr. Mariann OdomHemoglobin (Bld) [Mass/Vol]12.8 g/dLCritically low14.0-18.0The [facility] HospitalComment on above:Performed By: #### CMP #### [facility] [address] [place] [address] Dr. Mariann Guy #0.01 10e3/ulNormal0.00-0.03The [facility] HospitalComment on above:Performed By: #### CMP #### [facility] [address] [place] [address] Dr. Mariann Guy %0.2 %Normal0.0-0.5The [facility] HospitalComment on above: Performed By: #### CMP #### [facility] [address] [place] [address] Dr. Mariann Hernandez #1.5 103/ulNormal1.2-3.8The [facility] HospitalComment on above:Performed By: #### CMP #### [facility] [address] [place] [address] Dr. Mariann Peñalozahocytes/100 WBC (Bld)31.0 %Rymavq23.5-60.0The [facility] HospitalCom[facility] on above:Performed By: #### CMP #### [facility] [address] [place] [address] Dr. Mariann DiazUAL DIFF REQNONormalThe [facility] HospitalComment on above: Performed By: #### CMP #### [facility] [address] [place] [address] Dr. Mariann Navarro (RBC) [Entitic mass]28.3 joUwcncl90.9-34.0The [facility] HospitalComment on above:Performed By: #### CMP #### [facility] [address] [place] [address] Dr. Mariann Navarro (RBC) [Mass/Vol]31.5 g/vOYiscga00.9-35.2The [facility] HospitalComment on above:Performed By: #### CMP #### [facility] [address] [place] [address] Dr. Mariann Navarro (RBC) [Entitic vol]89.6 hNLalagp44.0-94.0The [facility] HospitalComment on above:Performed By: #### CMP #### [facility] [address] [address] [address] Mariann Zabala #0.6 103/ulNormal0.3-0.8The [facility] HospitalComment on above:Performed By: #### CMP #### [facility] [address] [place] [address] Dr. Mariann Scruggsocytes/100 WBC (Bld)11.4 %Normal1.7-12.0The [facility] Comment on above:Performed By: #### CMP #### [facility] [address] [place] [address] Dr. Mariann Faria #2.6 103/ulNormal1.4-6.5The [facility] HospitalComment on above:Performed By: #### CMP #### [facility] [address] [place] [address] Dr. Mariann Barillasutrophils/100 WBC (Bld)52.1 %Nocvqm18.0-75.0The [facility] HospitalComment on above:Performed By: #### CMP #### [facility] [address] [place] [address] Dr. Mariann Rossi mean volume (Bld) [Entitic vol]11.9 fLNormal9.5-13.5The [facility] HospitalComment on above:Performed By: #### CMP #### [facility] [address] [place] [address] Dr. Mariann OdomPLT288 103/egIbsgpw696-546Lsh [facility] HospitalComment on above: Performed By: #### CMP #### [facility] [address] [place] [address] Dr. Mariann OdomRBC4.53 106/ulCritically low4.70-6.10The [facility] HospitalComment on above:Performed By: #### CMP #### [facility] [address] [place] [address] Dr. Mariann OdomWBC4.9 103/ulNormal4.0-11.0The [facility] HospitalComment on above: Performed By: #### CMP #### [facility] [address] [place] [address] Dr. Mariann OdomGLYCOHEMOGLOBIN A1Con [id number] RECOMMENDATIONSEE BELOWBarney Children'S Medical CenterComoaklawn hospital on above:Result Comment: ADA RECOMMENDED LIMIT 4.0 - 6.0 ADA THERAPEUTIC TARGET < 7.0 ACTION SUGGESTED > 7.0Performed By: #### A1C #### [facility] [address] [place] [address] Dr. Mariann OdomGlucose [Mass/Vol]154 mg/dLNoOhioHealth O'Bleness HospitalComment on above:Performed By: #### A1C #### [facility] [address] [place] [address] Dr. Mariann OdomHbA1c (Bld) [Mass fraction]7.0 %Critically high4.5-6.2[facility] HospitalComment on above:Performed By: #### A1C #### [facility] [address] [place] [address] Dr. Mariann OdomLIPID PROFILEon [id number]-HDL RATIO NORMSEE [facility] CenterComoaklawn hospital on above:Result Comment: 3.3 - 4.4 LOW RISK 4.4 - 7.1 AVERAGE RISK 7.1 - 11.0 MODERATE RISK >11.0 HIGH RISKPerformed By: #### CMP #### [facility] [address] [place] [address] Dr. Mariann OdomCholesterol [Mass/Vol]114 mg/dLNormal<=200The [facility] Comment on above:Performed By: #### CMP #### [facility] [address] [place] [address] Dr. Mariann OdomCholesterol in HDL [Mass/Vol]50 mg/bQXdytkd92-28Xhr [facility] HospitalComment on above:Performed By: #### CMP #### [facility] [address] [place] [address] Dr. Mariann OdomCholesterol in LDL [Mass/Vol]52.4 mg/dLNoOhioHealth O'Bleness HospitalComment on above:Performed By: #### CMP #### [facility] [address] [place] [address] Dr. Mariann OdomCholesterol.total/Cholesterol in HDL [Mass ratio]2.3 {ratio} NormalEast Liverpool City HospitalComment on above:Performed By: #### CMP #### [facility] [address] [place] [address] Dr. Mariann Yanes NORMAL> or = 60 mg/dl - LOW CARDIOVASCULAR RISK <40 mg/dl - HIGH CARDIOVASCULAR RISKUniversity Hospitals TriPoint Medical CenterComment on above:Performed By: #### CMP #### [facility] [address] [place] [address] Dr. Mariann OdomLDL CALC NORMALSEE BELOWUniversity Hospitals TriPoint Medical CenterComment on above:Result Comment: <100 mg/dl OPTIMAL 100 - 129 mg/dl NEAR OR ABOVE OPTIMAL 130 - 159 mg/dl BORDERLINE HIGH 160 - 189 mg/dl HIGH >190 mg/dl VERY HIGH Performed By: #### CMP #### [facility] [address] [place] [address] Dr. Mariann OdomTriglyceride [Mass/Vol]58 mg/dLNormal<=150[facility] Comment on above:Performed By: #### CMP #### [facility] [address] [place] [address] Dr. Mariann Craig CALC11.6 mg/dLNoOhioHealth O'Bleness HospitalComment on above: Performed By: #### CMP #### [facility] [address] [place] [address] Dr. Mariann Carrington PROFILEon 94-11-6535Zylllsz [Mass/Vol]4.0 g/dLNormal3.4-5.0 The [facility] HospitalComment on above:Performed By: #### CMP #### [facility] [address] [place] [address] Dr. Mariann OdomAlbumin/Globulin [Mass ratio]1.1 {ratio}NormalEast Liverpool City HospitalComment on above:Performed By: #### CMP #### [facility] [address] [place] [address] Dr. Yilan ChangALP [Catalytic activity/Vol]72 U/LGjaiqb36-258Bsb [facility] HospitalComment on above:Performed By: #### CMP #### [facility] [address] [address] [address] Mariann Vela [Catalytic activity/Vol]43 U/SQmmmoi82-85Tlt [facility] HospitalComment on above:Performed By: #### CMP #### [facility] [address] [address] [address] Mariann Santoro [Catalytic activity/Vol]28 U/EIisiwq48-92Kex [facility] HospitalComment on above:Performed By: #### CMP #### [facility] [address] [address] [address] Mariann RubinI, CONJUGATED0.1 mg/dLNormal0.0-0.2[facility] Comment on above:Performed By: #### CMP #### [facility] [address] [address] [address] Mariann Rubinirubin [Mass/Vol]0.4 mg/dLNormal0.2-1.0[facility] Comment on above:Performed By: #### CMP #### [facility] [address] [place] [address] Dr. Mariann OdomGlobulin (S) [Mass/Vol]3.5 g/dLNormalThe [facility] HospitalComoaklawn hospital on above:Performed By: #### CMP #### [facility] [address] [address] [address] Mariann OdomProtein [Mass/Vol]7.5 g/dLNormal6.4-8.2[facility] Comment on above:Performed By: #### CMP #### [facility] [address] [place] [address] Dr. Mariann OdomMICROALBUMIN, RAND URon 20-86-5273pRVV7.5 mg/LNormal<=30.0The [facility] HospitalComment on above:Performed By: #### MALBR #### [facility] [address] [place] [address] Dr. Mariann OdomPROF CHEM 8 (BAS METB)on 36-76-7517Xiapo gap [Moles/Vol]11.3 mmol/LNormalEast Liverpool City HospitalComment on above:Performed By: #### CMP #### [facility] [address] [address] [address] Mariann OdomCalcium [Mass/Vol]9.1 mg/dLNormal8.5-10.1[facility] Comment on above:Performed By: #### CMP #### [facility] [address] [address] [address] Mariann OdomChloride [Moles/Vol]106 mmol/URgltwc58-179KxkEast [facility] Hospital Comment on above:Performed By: #### CMP #### [facility] [address] [place] [address] Dr. Mariann OdomCO2 [Moles/Vol]29.0 mmol/PEmznnj91.0-32.0[facility] Comment on above:Performed By: #### CMP #### [facility] [address] [place] [address] Dr. Mariann OdomCreatinine [Mass/Vol]0.93 mg/dLNormal0.70-1.30The [facility] HospitalComment on above:Performed By: #### CMP #### [facility] [address] [place] [address] Dr. Mariann WyattGFR-AF [place]IZ[place]>60Normal>=60The [facility] HospitalComment on above:Performed By: #### CMP #### [facility] [address] [place] [address] Dr. Mariann WyattGFR-NON AF [place]IZ[place]>60Normal>=60The [facility] HospitalComment on above:Performed By: #### CMP #### [facility] [address] [place] [address] Dr. Mariann OdomGlucose [Mass/Vol]99 mg/dEAgntpd65-660UeyEast [facility] Hospital Comment on above:Performed By: #### CMP #### [facility] [address] [place] [address] Dr. Mariann OdomPotassium [Moles/Vol]4.3 mmol/LNormal3.5-5.1The [facility] Comment on above:Performed By: #### CMP #### [facility] [address] [place] [address] Dr. Mariann Starkdium [Moles/Vol]142 mmol/SYeguqi130-785Dfj [facility] Comment on above:Performed By: #### CMP #### [facility] [address] [place] [address] Dr. Mariann Garibay nitrogen [Mass/Vol]11.0 mg/dLNormal7.0-18.0The [facility] HospitalComment on above:Performed By: #### CMP #### [facility] [address] [place] [address] Dr. Mariann Garibay nitrogen/Creatinine [Mass ratio]11.8 mg/mgNormalThe [facility] HospitalComment on above:Performed By: #### CMP #### [facility] [address] [place] [address] Dr. Mariann Salomon 88-82-0046JTD4.183 uIU/mLNormal0.358-3.740[facility] HospitalComment on above:Performed By: #### CMP #### [facility] [address] [place] [address] Dr. Mariann Alaniz AUTO DIFFon 50-22-1660MOPH #0.1 103/ulNormal0.0-0.1The [facility] HospitalComment on above:Performed By: #### CBC #### [facility] [address] [place] [address] Dr. Mariann Quirogaphils/100 WBC (Bld)1.0 %Normal0.2-2.0The [facility] Comment on above:Performed By: #### CBC #### [facility] [address] [place] [address] Dr. Mariann Tolbert #0.2 103/ulNormal0.0-0.7The [facility] HospitalComment on above: Performed By: #### CBC #### [facility] [address] [place] [address] Dr. Mariann Wyattosinophils/100 WBC (Bld)4.4 %Normal0.9-7.0The [facility] Comment on above:Performed By: #### CBC #### [facility] [address] [place] [address] Dr. Mariann Wyattrythrocyte distribution width (RBC) [Ratio]14.8 %Jiikrh35.0-15.0 The [facility] HospitalComment on above:Performed By: #### CBC #### [facility] [address] [place] [address] Dr. Mariann OdomHematocrit (Bld) [Volume fraction]41.1 %Critically low42.0-54.0 The [facility] HospitalComment on above:Performed By: #### CBC #### [facility] [address] [place] [address] Dr. Mariann OdomHemoglobin (Bld) [Mass/Vol]13.1 g/dLCritically low14.0-18.0The [facility] HospitalComment on above:Performed By: #### CBC #### [facility] [address] [place] [address] Dr. Mariann Guy #0.01 10e3/ulNormal0.00-0.03The [facility] HospitalComment on above:Performed By: #### CBC #### [facility] [address] [place] [address] Dr. Mariann Guy %0.2 %Normal0.0-0.5The [facility] Clinicment on above: Performed By: #### CBC #### [facility] [address] [place] [address] Dr. Mariann YoungH #1.6 103/ulNormal1.2-3.8The [facility] HospitalComment on above:Performed By: #### CBC #### [facility] [address] [place] [address] Dr. Mariann Peñalozamphocytes/100 WBC (Bld)30.9 %Mtlhnu04.5-60.0The [facility] HospitalComment on above:Performed By: #### CBC #### [facility] [address] [place] [address] Dr. Marainn Shin DIFF REQNONormalThe [facility] HospitalComment on above: Performed By: #### CBC #### [facility] [address] [place] [address] Dr. Mariann Navarro (RBC) [Entitic mass]28.4 unVeggtf62.9-34.0The [facility] HospitalComment on above:Performed By: #### CBC #### [facility] [address] [place] [address] Dr. Mariann Navarro (RBC) [Mass/Vol]31.9 g/jUUnqpyf08.9-35.2The [facility] HospitalComment on above:Performed By: #### CBC #### [facility] [address] [place] [address] Dr. Mariann Navarro (RBC) [Entitic vol]89.2 zZMrkbid78.0-94.0The [facility] HospitalComment on above:Performed By: #### CBC #### [facility] [address] [place] [address] Dr. Mariann Zabala #0.5 103/ulNormal0.3-0.8The [facility] HospitalComment on above:Performed By: #### CBC #### [facility] [address] [place] [address] Dr. Mariann Scruggsocytes/100 WBC (Bld)9.4 %Normal1.7-12.0The [facility] Comment on above:Performed By: #### CBC #### [facility] [address] [place] [address] Dr. Mariann Faria #2.7 103/ulNormal1.4-6.5The [facility] HospitalComment on above:Performed By: #### CBC #### [facility] [address] [place] [address] Dr. Mariann Barillasutrophils/100 WBC (Bld)54.1 %Gvcjac80.0-75.0The [facility] HospitalComment on above:Performed By: #### CBC #### [facility] [address] [place] [address] Dr. Mariann OdomPlatelet mean volume (Bld) [Entitic vol]11.3 fLNormal9.5-13.5The [facility] on above:Performed By: #### CBC #### [facility] [address] [place] [address] Dr. Mariann OdomPLT251 103/qtRheggq048-096Ytf [facility] on above: Performed By: #### CBC #### [facility] [address] [place] [address] Dr. Mariann OdomRBC4.61 106/ulCritically low4.70-6.10The [facility] on above:Performed By: #### CBC #### [facility] [address] [place] [address] Dr. Mariann OdomWBC5.0 103/ulNormal4.0-11.0The [facility] on above: Performed By: #### CBC #### [facility] [address] [place] [address] Dr. Mariann OdomPROF 14(COMP METB)on 28-95-6159Azjoklw [Mass/Vol]3.7 g/dLNormal 3.4-5.0The [facility] on above:Performed By: #### CMP #### [facility] [address] [place] [address] Dr. Mariann OdomAlbumin/Globulin [Mass ratio]1.0 {ratio}NormalThe [facility] on above:Performed By: #### CMP #### [facility] [address] [place] [address] Dr. Mariann Gomez [Catalytic activity/Vol]87 U/MJaznll37-165Szh [facility] on above:Performed By: #### CMP #### [facility] [address] [place] [address] Dr. Mariann Vela [Catalytic activity/Vol]39 U/UUauzlr79-01Xjx [facility] on above:Performed By: #### CMP #### [facility] [address] [address] [address] Mariann Valentineon gap [Moles/Vol]10.2 mmol/LNormalThe [facility] Comment on above:Performed By: #### CMP #### [facility] [address] [address] [address] Mariann OdomAST [Catalytic activity/Vol]22 U/KMltctg35-27Sle [facility] HospitalComment on above:Performed By: #### CMP #### [facility] [address] [address] [address] Mariann OdomBilirubin [Mass/Vol]0.3 mg/dLNormal0.2-1.0The [facility] Comment on above:Performed By: #### CMP #### [facility] [address] [address] [address] Mariann OdomCalcium [Mass/Vol]9.4 mg/dLNormal8.5-10.1The [facility] Comment on above:Performed By: #### CMP #### [facility] [address] [address] [address] Mariann OdomChloride [Moles/Vol]105 mmol/BDcyvoq17-211Qbz [facility] Comment on above:Performed By: #### CMP #### [facility] [address] [address] [address] Mariann OdomCO2 [Moles/Vol]28.9 mmol/IFatdgi31.0-32.0The [facility] Comment on above:Performed By: #### CMP #### [facility] [address] [address] [address] Mariann OdomCreatinine [Mass/Vol]0.93 mg/dLNormal0.70-1.30The [facility] HospitalComment on above:Performed By: #### CMP #### [facility] [address] [address] [address] Waite ChangEGFR-AF VATICAN CITIZEN>60Normal>=60The [facility] HospitalComment on above:Performed By: #### CMP #### [facility] [address] [address] [address] Mariann WyattGFR-NON AF VATICAN CITIZEN>60Normal>=60The [facility] HospitalComment on above:Performed By: #### CMP #### [facility] [address] [address] [address] Mariann OdomGlobulin (S) [Mass/Vol]3.7 g/dLNormKnox Community HospitalComment on above:Performed By: #### CMP #### [facility] [address] [address] [address] Mariann OdomGlucose [Mass/Vol]253 mg/dLCritically ubxs14-686Lnt [facility] HospitalComment on above:Performed By: #### CMP #### [facility] [address] [place] [address] Dr. Mariann OdomPotassium [Moles/Vol]4.1 mmol/LNormal3.5-5.1The [facility] Comment on above:Performed By: #### CMP #### [facility] [address] [place] [address] Dr. Mariann OdomProtein [Mass/Vol]7.4 g/dLNormal6.4-8.2The [facility] Comment on above:Performed By: #### CMP #### [facility] [address] [place] [address] Dr. Mariann OdomSodium [Moles/Vol]140 mmol/YIisrlr979-211Xhc [facility] Comment on above:Performed By: #### CMP #### [facility] [address] [place] [address] Dr. Mariann OdomUrea nitrogen [Mass/Vol]15.0 mg/dLNormal7.0-18.0The [facility] HospitalComment on above:Performed By: #### CMP #### [facility] [address] [place] [address] Dr. Mariann OdomUrea nitrogen/Creatinine [Mass ratio]16.1 mg/mgNormalThSelect Medical OhioHealth Rehabilitation HospitalComment on above:Performed By: #### CMP #### [facility] [address] [place] [address] Dr. Mariann OdomSED RATE WESTERGRENon 90-14-7820WKE RATE15 mm/hrNormal<=20The [facility] HospitalComment on above:Performed By: #### CMP #### [facility] [address] [address] [address] Mariann Odom Vital Signs Date TimeVital SignValuePerforming TgocienmeGuxxwbhn69-82-5180 09:15-0400Body osoazd521.8 cmMajor Stevens MD Work Phone: [facility] InstituteObxtfpvjet26-14-9613 09:15-0400Body mass index (BMI) [Ratio]29.84 kg/m2Major Stevens MD Work Phone: [facility] InstituteOedlagpvvi16-92-7908 09:15-0400Body temperature 97.5 [degF]Major Stevens MD Work Phone: [facility] InstituteZcfwhnkesp05-81-0483 09:15-0400Body gmysbv29.35 kgMajor Stevens MD Work Phone: [facility] InstituteHnqfpslpbj89-87-9754 09:15-0400Diastolic blood mm[Hg]Major Stevens MD Work Phone: [facility] InstituteHamhsvvrgf86-14-3371 09:15-0400Heart rate69 /min Major Stevens MD Work Phone: [facility] InstituteTewuomlemg23-20-2765 09:15-0400Respiratory rate18 /minaMjor Stevens MD Work Phone: [facility] InstituteZkqosbhuio92-59-5362 09:15-3536FfJ3% (BldA) [Mass fraction]97 %Major Stevens MD Work Phone: [facility] InstituteUozwerwzhq77-03-7201 09:15-0400Systolic blood xcjizdze860 mm[Hg]Major Stevens MD Work Phone: [facility] InstituteGfnkmgnxaq50-03-7904 10:45-0500Body mass index (BMI) [Ratio]29.27 kg/e7WqtxbxIsha Valentino MD Work Phone: [facility]03-04-2025 10:45-0500 Body .3 [degF]Ihsa Valentino MD Work Phone: 1(306)794-[address] [place], [place] 9713303-04-2025 10:45-0500 Body yewfpe50.53 kgIsha Valentino MD Work Phone: 1(513)1-[address] [place], [place] 9713303-04-2025 10:45-0500 Diastolic blood pmokxeve54 mm[Hg]Isha Valentino MD Work Phone: 1(900)566-[address] [place], [place] 9713303-04-2025 10:45-0500 Heart rate66 /minIsha Valentino MD Work Phone: 1(418)5-[address] [place], [place] 9713303-04-2025 10:45-0500 Respiratory rate20 /minIsha Valentino MD Work Phone: 1(751)0-[address] [place], [place] 9713303-04-2025 10:45-0500 Systolic blood pkjagjvy220 mm[Hg]Isha Valentino MD Work Phone: 1(056)341-[address] [place], [place] 9713310-22-2024 09:01-0400 Body mass index (BMI) [Ratio]29.62 kg/m2Major Stevens MD Work Phone: [facility] InstituteFvxunvtrsq26-17-9099 09:01-0400Body temperature 97.3 [degF]Major Stevens MD Work Phone: [facility] InstituteDfyssuucoj44-02-4161 09:01-0400Body drwefc37.62 kgMajor Stevens MD Work Phone: [facility] InstituteWzbylwjfot75-82-9808 09:01-0400Diastolic blood shivlige73 mm[Hg]Major Stevens MD Work Phone: [facility] InstituteDzztxrcyzu17-78-3229 09:01-0400Heart rate62 /min Major Stevens MD Work Phone: noKindred HospitalVdlmtzlffr13-48-7938 09:01-6914UnY4% (BldA) [Mass fraction]98 %Major Stevens MD Work Phone: [facility] InstituteZrydqrxwte29-54-7713 09:01-0400Systolic blood ojjcfgwn980 mm[Hg]Major Stevens MD Work Phone: [facility] InstituteMyzrrygnsw24-61-9075 14:31-0400Body .8 cmIsha Valentino MD Work Phone: 1(855)7-[facility]05-21-2024 14:31-0400 Body mass index (BMI) [Ratio]30.13 kg/w2NtpqpuIsha Valentino MD Work Phone: 1(480)[address] [place], [place] 4946105-21-2024 14:31-0400 Body iqiqwhufkrt17.4 [degF]Isha Valentino MD Work Phone: 1(897)[address] [place], [place] 4946105-21-2024 14:31-0400 Body .25 kgIsha Valentino MD Work Phone: 1(344)[address] [place], [place] 4946105-21-2024 14:31-0400 Diastolic blood ujxpitta41 mm[Hg]Isha Valentino MD Work Phone: 1(062)[address] [place], [place] 4946105-21-2024 14:31-0400 Heart rate69 /Nkechi Valentino MD Work Phone: 1(449)[address] [place], [place] 4946105-21-2024 14:31-0400 Respiratory rate18 /Nkechi Valentino MD Work Phone: 1(848)[address] [place], [place] 4946105-21-2024 14:31-0400 Systolic blood qyepkwnu220 mm[Hg]Isha Valentino MD Work Phone: 1(337)[address] [place], [place] 4946103-13-2024 16:00-0400 Body xfhquwptjno79.4 [degF]Isha Valentino MD Work Phone: 1(046)[facility] [place], [place] 9713303-13-2024 16:00-0400 Diastolic blood hnfnbuwq918 mm[Hg]Isha Valentino MD Work Phone: 1(224)143-[address] [place], [place] 9713303-13-2024 16:00-0400 Heart rate96 /Nkechi Valentino MD Work Phone: 1(458)[address] [place], [place] 4946103-13-2024 16:00-0400 Respiratory rate18 /Nkechi Valentino MD Work Phone: 1(216)[address] [place], [place] 4946103-13-2024 16:00-0400 SaO2% (BldA) [Mass fraction]98 %Isha Valentino MD Work Phone: 1(216)[address] [place], [place] 4946103-13-2024 16:00-0400 Systolic blood mm[Hg]Isha Valentino MD Work Phone: 1(141)[address] [place], [place] 4946103-08-2024 13:33-0500 Body ysumakiwhzt26.0Isha Valentino MD Work Phone: 1(603)[address] [place], [place] 4946103-08-2024 13:33-0500 SaO2% (BldA) [Mass fraction]100 %Isha Valentino MD Work Phone: 1(289)[address] [place], [place] 4946103-08-2024 13:19-0500 Body wexrwxvxvmm25.0 degrees CelsiusAdena Health SystemComment on above:Performed By: #### [id number] #### PACHECO Ferraro ([id number]) [facility] ([facility]) [address] [place], [place] [address]103-08-2024 13:19-5079LfX2% (BldA) [Mass fraction]100 %[facility] Health SystemComment on above:Performed By: #### [id number] #### PACHECO Ferraro ([id number]) [facility] ([facility]) [address] [place], [place] [address]103-08-2024 12:51-0500Body jpydqamegla03.0Isha Valentino MD Work Phone: 1(484)[address] [place], [place] 49[address]103-08-2024 12:51-0500 SaO2% (BldA) [Mass fraction]100 %Isha Valentino MD Work Phone: [facility]03-08-2024 12:36-0500 Body fxrivoizjwh52.0 degrees CelsiusAdena Health SystemComment on above:Performed By: #### 02775-0 #### PACHECO Ferraro ([id number]) [facility] ([facility]) [address] [place], [place] [address]103-08-2024 12:36-9390RbU1% (BldA) [Mass fraction]100 %[facility] Health SystemComment on above:Performed By: #### 80428-8 #### PACHECO Ferraro ([id number]) [facility] ([facility]) [address] [place], [place] [address]103-08-2024 11:09-0500Body wvvoqcetxkf38.0Isha Valentino MD Work Phone: [facility]03-08-2024 11:09-0500 SaO2% (BldA) [Mass fraction]100 %Isha Valentino MD Work Phone: [facility]03-08-2024 10:49-0500 Body awoooexuvgs99.0 degrees CelsiMartin Memorial HospitalComment on above:Performed By: #### 65121-3 #### PACHECO Ferraro ([id number]) [facility] ([facility]) [address] [place], [place] [address]-08-2024 10:49-6302YyZ9% (BldA) [Mass fraction]100 %[facility] Health SystemComment on above:Performed By: #### 55223-5 #### PACHECO Ferraro ([id number]) [facility] ([facility]) [address] [place], [place] [address]-08-2024 09:27-0500Body dqqfodksgil47.0Isha Valentino MD Work Phone: [facility]03-08-2024 09:27-0500 SaO2% (BldA) [Mass fraction]100 %Isha Valentino MD Work Phone: 1(195)803-[facility]03-08-2024 09:00-0500 Body xxaretbflmf31.0 degrees CelsiusAdena Health SystemComment on above:Performed By: #### [id number] #### PACHECO Ferraro ([id number]) [facility] ([facility]) [address] [place], [place] [address]103-08-2024 09:00-2616IxI1% (BldA) [Mass fraction]100 %ISHA [facility], AvonComment on above:Performed By: #### 12213-2 #### PACHECO Ferraro ([id number]) [facility] ([facility]) [address] [place], [place] [address]103-08-2024 05:53-0500Body xhaipk915.8 cmIsha Valentino MD Work Phone: [facility]03-08-2024 05:53-0500 Body mass index (BMI) [Ratio]30.18 kg/b5YgqzhcIsha Valentino MD Work Phone: 1(681)659-[facility]03-08-2024 05:53-0500 Body poemsq22.4 kgIsha Valentino MD Work Phone: 1(627)006-[facility]01-03-2024 10:40-0500 Body vpebyk330.34 cmMobileyedavis hospital and medical center Ad Summos Other [employer] Other 01-03-2024 10:40-0500Body mass index (BMI) [Ratio] 30.26 kg/h0Imxjryl Ad Summos Other [employer] Other 01-03-2024 10:40-0500Body .43 kgJessica Ad Summos Other [facility] [employer] Other 11-27-2023 09:45-0500Body owsjjl202.34 cmSdahiana Sandoval Other [place] [employer] Other 11-27-2023 09:45-0500Body mass index (BMI) [Ratio] 30.12 kg/i8Mzwbqg Zaky Other [place] [employer] Other 11-27-2023 09:45-0500Body djqmim77.98 kgShvitokaushik Sandoval Other [place] [employer] Other 11-27-2023 09:45-0500Diastolic blood esmrbucy23 mm[Hg] Abel Sandoval Other [place] [employer] Other 11-27-2023 09:45-3377LqX7% (BldA) [Mass fraction]99 % Abel Sandoval Other [facility] [employer] Other 11-27-2023 09:45-0500Systolic blood doccznio054 mm[Hg] Able Sandoval Other [place] [employer] Other 11-15-2023 10:35-0500Diastolic blood ayelkxxs64 mm[Hg] MD Major Stevens Work Phone: [facility]11-15-2023 10:35-0500 Heart rate65 /minMD Major Stevens Work Phone: [facility]11-15-2023 10:35-0500 Respiratory rate16 /minMD Major Stevens Work Phone: [facility]11-15-2023 10:35-0500 SaO2% (BldA) [Mass fraction]97 %MD Major Stevens Work Phone: 1(793)[address]11-15-2023 10:35-0500 Systolic blood kpnzahgy633 mm[Hg]MD Major Stevens Work Phone: 1(405)[address] [place], [place] 6800211-15-2023 09:57-0500 Inhaled oxygen flow rate3 L/minMD Major Stevens Work Phone: 1(883)[address] [place], [place] 6800211-15-2023 08:54-0500 Body .8 cmMD Major Stevens Work Phone: 1(907)[address] [place], [place] 6800211-15-2023 08:54-0500 Body vuwukd79.52 kgMD Major Stevens Work Phone: 1(356)[address] [place], [place] 6800210-25-2023 11:33-0400 Diastolic blood sxegwdcb19 mm[Hg]MD Major Stevens Work Phone: 1(851)[address] [place], [place] 6800210-25-2023 11:33-0400 Heart rate70 /minMD Major Stevens Work Phone: 1(169)[address] [place], [place] 6800210-25-2023 11:33-0400 Respiratory rate16 /minMD Major Stevens Work Phone: 1(332)[address] [place], [place] 6800210-25-2023 11:33-0400 SaO2% (BldA) [Mass fraction]98 %MD Major Stevens Work Phone: 1(882)[address] [place], [place] 6800210-25-2023 11:33-0400 Systolic blood fumlnosp508 mm[Hg]MD Major Stevens Work Phone: 1(145)[address] [place], [place] 6800210-25-2023 11:05-0400 Inhaled oxygen flow rate3 L/minMD Major Stevens Work Phone: 1(003)[address] [place], [place] 6800210-25-2023 10:40-0400 Body ixktlx077.8 cmMD Major Stevens Work Phone: 1(164)[address] [place], [place] 6800210-25-2023 10:40-0400 Body .52 kgMD Major Stevens Work Phone: [facility]10-03-2023 08:30-0400 Body .34 cmSulysses Sandoval Other [place] [employer] Other 10-03-2023 08:30-0400Body mass index (BMI) [Ratio] 30.12 kg/u9CvhxpyAbel Sandoval Other [facility] [employer] Other 10-03-2023 08:30-0400Body fpkcyt11.98 kgShvitokaushik Sandoval Other [facility] [employer] Other 10-03-2023 08:30-0400Diastolic blood kfmqnqli01 mm[Hg] Abel Sandoval Other [facility] [employer] Other 10-03-2023 08:30-7792YqG6% (BldA) [Mass fraction]98 % Abel Sandoval Other [facility] [employer] Other 10-03-2023 08:30-0400Systolic blood wfupyrzr105 mm[Hg] Abel Sandoval Other [facility] [employer] Other Encounters Encounter DateEncounter TypeCare ProviderFacilityStart: 11-12-2024 End: 88-52-9002Tfjavscel Result EncounterGeneric External Data ProviderNOMS External Department UnsolicitedStart: 11-12-2024 End: 49-65-7641Lwdtvhrhz Result EncounterGeneric External Data ProviderNOMS External Department UnsolicitedStart: 07-16-2024 End: 62-23-2738Losuop flowsAva Stevens MD Work Phone: [facility] FMStart: 07-16-2024 End: 50-50-2868Crotsq flowsheetMajor Stevens MD Work Phone: [facility] C[facility] FMStart: 07-16-2024 End: 34-55-2692Mwbofxrzm Result EncounterMajor Stevens MD Work Phone: noms External Department UnsolicitedStart: 07-16-2024 End: 77-66-9899Gifxaz outpatient visit 25 minutesMajor Stevens MD Work Phone: [facility] CWM FMComment on above:Type 2 diabetes mellitus with hyperglycemia, without long-term current use of insulin (CMS/HCC) (Primary Dx); Essential hypertension (CMS/[facility]); Lumbar spondylosis; Arthropathic psoriasis, unspecified (CMS/HCC)Start: 07-16-2024 End: 67-82-9773kboxeduwolSXOW NADERERNot AvailableStart: 06-25-2024 End: 39-95-4692Mszgcsela Result EncounterGeneric External Data ProviderNOMS External Department UnsolicitedStart: 06-25-2024 End: 90-30-8790Kjxckpmnj Result EncounterGeneric External Data ProviderNOMS External Department UnsolicitedStart: 05-27-2024 End: 36-48-5803Zgbmrhwwn Result EncounterGeneric External Data ProviderNOMS External Department UnsolicitedStart: 05-27-2024 End: 43-49-1533Ouenpelts Result EncounterGeneric External Data ProviderNOMS External Department UnsolicitedStart: 05-27-2024 End: 24-31-6944Ttyoyp outpatient visit 25 minutesIsha Valentino MD Work Phone: uh [place] [facility]ova PavilionComment on above:S/P spinal surgery (Primary Dx)Start: 05-27-2024 End: 48-09-9915Hzhlucegei hospital visit by Analilia Retana X-Ray 4 [place] [facility] PavilionComment on above:S/P lumbar spinal fusion; Scoliosis of thoracolumbar region due to degenerative disease of spine in adult Start: 05-27-2024 End: 05-89-0916jhvsteijdbNASAFJ K KASLIWALTrinity Health System East Campustart: 02-19-2024 End: 22-61-2607Cegnjfijy Result EncounterGeneric External Data ProviderNOMS External Department UnsolicitedStart: 02-19-2024 End: 01-95-5837Fkimiwkqo Result EncounterGeneric External Data ProviderNOMS External Department UnsolicitedStart: 01-15-2024 End: 13-25-7839Tqfyrp Chencho Stevens MD Work Phone: [facility] FMStart: 01-15-2024 End: 47-27-2771Frintj flowsAva Stevens MD Work Phone: [facility] FMStart: 01-15-2024 End: 31-04-4658Ddnfuvy encounter procedureMajor Stevens MD Work Phone: [facility] Work Phone: Start: 01-15-2024 End: 01-39-5089Frzsiwhq preventive med est patient 40-64yrsMarc Radha COPELAND Work Phone: [facility] CWM FMComment on above:Annual physical exam (Primary Dx); Type 2 diabetes mellitus with hyperglycemia, without long-term current use of insulin ([facility]); Essential hypertension ([facility])Start: 01-15-2024 End: 83-06-3184bfibhjkaazPYVT NADERERNot AvailableStart: 11-14-2023 End: 60-25-7138Nldbkbqof Result EncounterGeneric External Data ProviderNOMS External Department UnsolicitedStart: 11-14-2023 End: 15-69-8318Ulbfknfbp Result EncounterGeneric External Data ProviderNOMS External Department UnsolicitedStart: 10-17-2023 End: 30-01-4004wizdnmsftzUNEV NADERERNot AvailableStart: 08-23-2023 End: 54-04-1471swqmakqtycJZYEHG T BLACKSTONNot AvailableStart: 08-21-2023 End: 02-67-7567vmhaixehnaHTEPFHNI BRIINot AvailableStart: 08-16-2023 End: 93-20-4610xeahxvluquSQWIPNVL BRINKNot AvailableStart: 08-14-2023 End: 32-75-6193Sowjje follow up visit related to original pxIsha Valentino MD Work Phone: [place] Retanasabrina PavilionComment on above:Postoperative follow-up (Primary Dx)Start: 08-14-2023 End: 70-46-6331Zardffbxjc [facility]Gl[facility] Barringtonselam Retanasabrina PavilionComment on above:S/P lumbar spinal fusion; Scoliosis of thoracolumbar region due to degenerative disease of spine in adult Start: 08-14-2023 End: 87-37-3270krkvflkrbqGCFMFATwin City Hospitaltart: 08-13-2023 End: 87-74-4918tnlffcmdfhZVOIPV Pooja BLACKSTONNot AvailableStart: 08-09-2023 End: 32-37-2442vgtrioayljNGQGZXQY BRINKNot AvailableStart: 08-06-2023 End: 44-17-1457tobhrghfgyFYIQEE Pooja BLACKSTONNot AvailableStart: 08-02-2023 End: 38-92-1749mhabenoncvKHYYIYVZ BRINKNot AvailableStart: 07-30-2023 End: 83-96-7936itzdzvakxtWFDBFTHV BRINKNot AvailableStart: 07-26-2023 End: 38-42-8776lrojwtvsysKJZUWL Pooja BLACKSTONNot AvailableStart: 07-10-2023 End: 32-87-6336Shhsobjrpn hospital visit by physicianluis [facility] [[email or web address] X-Ray [facility] [place] Retanasabrina PavilionComment on above:Status post spinal surgeryStart: 07-10-2023 End: 32-49-1745sqpotfhxdcEUDKSATwin City Hospitaltart: 83-94-7336rcpvarslsbICGW PHYSICIANFacility:RStart: 06-01-2023 End: 35-83-2373Ieerjiikxh and management of inpatientIsha Valentino MD Work Phone: [facility] 4Comment on above:Lumbar radiculopathy, right (Primary Dx); Spinal stenosis of lumbar region with neurogenic claudication; Sagittal plane imbalance; Scoliosis of thoracolumbar region due to degenerative disease of spine in adult; Lumbar foraminal stenosis; Lumbar radiculopathy, acute; Lumbar stenosis with neurogenic claudication; Postoperative pain; Constipation due to pain medication; Psoriatic arthritis ([facility])Start: 05-17-2023 End: 87-78-2666vxoybdsuubMXSDWood County Hospitaltart: 05-17-2023 End: 59-12-9951exorhrhrfsVQRXGMDunlap Memorial Hospitaltart: 05-17-2023 End: 36-70-3135Fyitgplbl for other preprocedural examinationMagruder Hospitaltart: 05-17-2023 End: 23-30-5770Amsbzes encounter statusBrown Memorial Hospital Work Phone: Start: 05-17-2023 End: 81-95-3140Sgojbqjs examinationBrown Memorial Hospital Work Phone: Start: 05-17-2023 End: 67-06-4160Olisenhnki hospital [facility] by physicianDe[facility] Jgc5525 Cr Nonv1 Holter/Ecg [facility] [place] MatherComment on above:Surgery, elective; Preop testing; Preoperative general physical examinationStart: 04-24-2023 End: 43-77-2237icszmsucnmUAGYGQGrant Hospitaltart: 04-24-2023 End: 91-05-0298Jdwluctnny hospital visit by physicianluis Retana X-Ray [facility] [place] [facility]ova PavilionComment on above:Spinal stenosis of lumbar region with neurogenic claudicationStart: 09-14-5269Tmxnbe OnlyDino Villa MD Work Phone: [facility] SpineStart: 03-29-2023 End: 84-92-4920odiwwhcjyrXedgszx Springer Other [facility] [employer] Other start: 07-16-4691Ssvclfioi encounterNatty Cat FPG Referral CoordinatorStart: 03-28-2023 End: 26-86-6321rwxylcdqctVxefmyi Stephania Other [place] [employer] Other start: 34-30-1011Tumvzk outpatient visit 25 minutes Natty Naresh [facility] NeurosurgeryStart: 02-19-2023 End: 91-37-3105ovrapazdqoIygtfs Zaky Other [facility] [employer] Other Start: 83-14-5727Ibxwnf outpatient visit 25 minutes Abel Isacc Pain ManagementStart: 02-07-2023(PROC) PROCEDURESherdahiana Sandoval [facility] OutPtStart: 02-07-2023 End: 13-13-6187lrpdeljhwkIvesnk S ZakyFacility:[facility] Start: 02-07-2023 End: 91-85-9888Dnmnchenj to same day surgery centerMD Major Stevens Work Phone: [facility] Work Phone: Start: 02-07-2023 End: 78-14-4688sxcpzegxmcQD Marc Naderer Work Phone: [facility] Work Phone: Start: 01-17-2023(PROC) PROCEDURESherUniversity [facility]als [facility] OutPtStart: 01-17-2023 End: 49-76-6844azqjqmansmAgzbfn Jose MelgarkyFacility:[facility] Start: 01-17-2023 End: 50-94-4255Nolhgeeji to same day surgery centerMD Major Stevens Work Phone: [facility] Work Phone: Start: 01-17-2023 End: 56-90-5445spbiwzjaqqFQ Marc Naderer Work Phone: [facility] Work Phone: Start: 12-26-2022 End: 06-95-4818rblhjjnxgmCvhypa Zaky Other Ref[facility] [employer] Other Start: 30-74-9050Jxkgzl outpatient visit 25 minutes Abel ZaKal Pain ManagementStart: 12-15-2022 End: 35-79-1729knmpvktwzuOxusp HartFacility:[facility] Start: 12-15-2022 End: 47-43-9795Vuqulbp encounter procedureMD Major Stevens Work Phone: [facility] [address] Work Phone: Start: 10-25-2022 End: 73-48-1667cwtzwcshwoReqirq Zaky Other [facility] [employer] Other Start: 40-30-2856Ckhxholqk encounterSherdahiana Dexter Pain ManagementStart: 10-16-2022 End: 01-63-5156ivphxyqviiMwdsnc S ZakyFacility:[facility] Start: 07-19-2022 End: 37-24-8294jdmujcsbytIR TONIA PRABHAKARROWFacility:H1Hispu: 04-11-2022 End: 34-79-6962syhcdzgunnDC TONIA MORROWFacility:Q6Xhxjn: 04-03-2022 End: 45-83-8255fsucdecvxtUE MAJOR BERGMANERERFacility:F4Watba: 01-03-2022 End: 50-89-8680bpdisfawlsOV TONIA PRABHAKARROWFacility:N7Rowdj: 68-86-5322Nyttpheld for general adult medical examination without abnormal findingsDR MAJOR STEVENS [facility] Hospitaltart: 09-13-2021 End: 82-96-8668kusqdejgldGU MARC A NADERERFacility:W4Skbvv: 09-13-2021 End: 55-71-3967Ejnwyenrh for general adult medical examination without abnormal findingsDR MAJOR CHENRFacility:D6Oauxp: 08-24-2021 End: 97-61-1336ytacbjrnteNA TONIA PADILLAFacility:H1 Procedures DateProcedureProcedure DetailPerforming ClinicianStart: 69-17-8135QUR CBC WITH AUTO DIFFGeneric External Data ProviderStart: 37-95-5144GZQ HEMOGLOBIN H6MDjcu Radha COPELAND Work Phone: Start: 95-84-8376VCU CBC WITH AUTO DIFFGeneric External Data ProviderStart: 82-16-0270TF SCOLIOSIS SERIES 2 TO 3 VIEWSGeneric External Data ProviderStart: 54-02-7258VDA CBC WITH AUTO DIFFGeneric External Data ProviderStart: 34-42-6777ZJJ SED RATEGeneric External Data ProviderStart: 87-54-4355RXU CMP (CMP) (FOR REMOTE [facility] USE)Generic External Data ProviderStart: 35-67-1837JEK CBC WITH AUTO DIFFGeneric External Data ProviderStart: 07-10-2023 XR SCOLIOSIS 2 VIEW (NON EOS)ISHA VALENTINOart: [id number] PATIENT ISHA Katinaart: [id number] KASLIWALart: 54-19-5208MKRNT DISCHARGE DIETCAVE CITYMARVIN Ambrizart: 89-87-2682KPVOVIPTF ACTIVITYISHA VALENTINO Start: 05-33-5326JGRWRKFWU INSTRUCTIONSCAVE CITYMARVIN VALENTINOart: 66-46-7886EHHOAU PROVIDER (DO NOT PROMPT FOR PARAMETERS)ISHA VALENTINOart: 99-54-0182Vuxhtsv [Mass/volume] in Serum or PlasmaISHA VALENTINOart: 08-40-7061Crjsrou quantitative blood xcpt reagent stripIsha Valentino MD Work Phone: Start: 38-29-8610VOTQNLKE PAT[facility] TO [facility] Katinaart: 38-03-1681KBJ panel - Blood by Automated countISHA VALENTINO Start: 96-94-4807YWCUB FUNCTION PANELISHA Ambrizart: 78-36-7786Basdyxy [Mass/volume] in Serum or PlasmaISHA VALENTINOart: 06-06-2023 End: 23-39-4215Ckaoo function panelRenetta Knox GLYCERIN SUPERVISOR-SHEET METAL SUPERVISOR Work Phone: Start: 41-88-0421Xtlxhsf [Mass/volume] in Serum or PlasmaCAVE CITYISH DE[facility]MENT [facility]-LEBANONStart: 38-43-7773Lhbzfde quantitative blood xcpt reagent stripIsha Valentino MD Work Phone: Start: 33-50-9941Qysrkvt [Mass/volume] in Serum or PlasmaJORDAN VALLEY MEDICAL CENTER [facility]ST [facility]LEY CAMPUSStart: 55-05-8330Nrmsnuw quantitative blood xcpt reagent stripIsha Valentino MD Work Phone: Start: 85-37-2777Abzsbhk [Mass/volume] in Serum or PlasmaLifePoint Hospitalsart: 81-86-2252Bexxzlk quantitative blood xcpt reagent stripIsha Valentino MD Work Phone: Start: 86-80-7264Kujzxzt [Mass/volume] in Serum or PlasmaSan [facility]: 06-20-2066Eknlqyw quantitative blood xcpt reagent stripIsha Valentino MD Work Phone: Start: 62-62-5919Pwatplv [Mass/volume] in Serum or PlasmaSan Luis Valley Regional [facility]: 47-68-7086Buvnpcp quantitative blood xcpt reagent Kamala Valentino MD Work Phone: Start: 99-19-1976Axqofgd [Mass/volume] in Serum or PlasmaLOGAN REGIONAL HOSPITALMICHAELTumacacori: 00-26-0574Uyodmxs quantitative blood xcpt reagent Kamala Valentino MD Work Phone: Start: 68-90-7554Xkyorwj [Mass/volume] in Serum or PlasmaSan Luis Valley [facility]: 59-04-8465Grdrd metabolic 2000 panel - Serum or PlasmaSan Luis Valley [facility]: 68-76-3031WPF panel - Blood by Automated countSan Luis Valley Regional [facility]: 54-29-8348Qaaktuq quantitative blood xcpt reagent Kamala Valentino MD Work Phone: Start: 93-81-4245Dzlnkwp [Mass/volume] in Serum or PlasmaSan Luis Valley Regional [facility]: 40-36-5813Sotgs metabolic panel calcium total Terrell Johnson MD Work Phone: start: 84-11-3762Jgkdzha quantitative blood xcpt reagent stripIsha Valentino MD Work Phone: Start: 30-28-7713Aomqnna [Mass/volume] in Serum or PlasmaTHE [facility] KARISZOEStart: 40-91-1966Hrjwvao quantitative blood xcpt reagent Kamala Valentino MD Work Phone: Start: 43-49-7702Xyzorua [Mass/volume] in Serum or PlasmaTHE [facility] KARISZOEStart: 34-22-8498Vauisas quantitative blood xcpt reagent Kamala Valentino MD Work Phone: Start: 05-63-0896Cwozh metabolic 2000 panel - Serum or PlasmaTHE [facility] KARISYESICAAPI HEALTHCAREStart: 39-35-8341SRR panel - Blood by Automated count ISHA VALENTINOStart: 54-43-6687Mwnynuq [Mass/volume] in Serum or PlasmaTHE [facility] KARISEncompass [facility]: 06-03-2023 End: 82-56-6600Nuasr metabolic panel calcium totalSebastfrancie Johnson MD Work Phone: start: 87-58-2216Vtdhetj [Mass/volume] in Serum or PlasmaISHA DYSONZOEStart: 67-44-2062Ydkdblc quantitative blood xcpt reagent Kamala Valentino MD Work Phone: Start: 82-96-1700Wlvsowu [Mass/volume] in Serum or PlasmaCAVE CITYMARVIN Katinaart: 31-59-0330Mwxfltu quantitative blood xcpt reagent Kamala Valentino MD Work Phone: Start: 94-52-5138Swbqqcm [Mass/volume] in Serum or PlasmaSABRINANOVANT HEALTH, [facility] Katinaart: 22-41-7170Rladglr quantitative blood xcpt reagent Kamala Valentino MD Work Phone: Start: 09-22-7413ROW panel - Blood by Automated count ISHA KASLIWALStart: 01-04-8127OORLOEIVITNRYPBI KASLIWALStart: 06-02-2023 Magnesium [Mass/volume] in Serum or PlasmaLifePoint Hospitalsart: 69-39-3913UTRDO FUNCTION PANELLifePoint Hospitalsart: 56-92-1310Rzjqv function panelSjosue Johnson MD Work Phone: start: 02-12-5449ONGS CODELifePoint Hospitalsart: 73-93-5814CCR panel - Blood by Automated countLifePoint Hospitalsart: 06-01-2023 FIBRINOGENLifePoint Hospitalsart: 98-99-8201Asfajdiuk [Mass/volume] in Serum or PlasmaLifePoint Hospitalsart: 30-36-6878NCEWB OXIMETRY, CONTINUOUSJORDAN VALLEY [facility] Start: 14-73-6822AOWRL TO INPATIENTLifePoint Hospitalsart: 67-34-9012Nwtehzn [Mass/volume] in Serum or PlasmaLifePoint Hospitalsart: 06-01-2023 End: 51-90-3724Zzmat of magnesiumSebastfrancie Johnson MD Work Phone: start: 84-40-0581XS FLUORO IMAGES NO CHARGESan Luis Valley [facility] Medical Center: 93-52-7824QQCIM OXIMETRY, CONTINUOUSKal Bacon MD Work Phone: Start: 11-43-4784Mipexfk quantitative blood xcpt reagent stripIsha Valentino MD Work Phone: Start: 06-01-2023 End: 51-66-9402PZ tomography Unspecified body regionSjosue Johnson MD Work Phone: start: 06-01-2023 End: 18-22-5239Vyqwonzm bldCollgretta Dubois CAA Work Phone: Start: 04-72-5842USBIHQK RBCLifePoint Hospitalsart: 81-60-8552PVJLH/VERIFY ABORHMBlue Mountain Hospitalart: 49-74-6702WKMHU GAS ARTERIAL FULL PANELLifePoint Hospitalsart: 11-92-2428Bwnczzwp bldColleen Shalonda POLANCO Work Phone: Start: 37-31-6952OVZJUCV RBCColleen Shalonda POLANCO Work Phone: Start: 52-28-2598OIKGLGMCL [facility] Hospitalart: 06-01-2023 VERAB/VERIFY ABORHCollShalonda POLANCO Work Phone: Start: 86-94-7298Mqngyzj [Mass/volume] in Serum or PlasmaLifePoint Hospitalsart: 06-01-2023 End: 77-13-8791Wgjputvn post/posterolatrl/postinterbody lumbarIsha Valentino MD Work Phone: Start: 58-76-5335Zxuxigc quantitative blood xcpt reagent stripIsha Valentino MD Work Phone: Start: 21-18-9574PTT 12-LEADLifePoint Hospitalsart: 28-81-8717Wfg routine ecg w/least 12 lds trcg only w/o i&rLpetrona Theodore MD Work Phone: Start: 38-11-3167Msbdi metabolic 2000 panel - Serum or PlasmaSan [facility]: 16-18-0617KQR panel - Blood by Automated count [facility]: 76-56-8939ZDDC AND SCREENSan [facility]: 05-17-2023 STAPHYLOCOCCUS AUREUS/MRSA COLONIZATION, CULTURESan Luis [facility] Medical [facility]: 05-17-2023 REQUEST FOR PRE-ADMISSION TESTING VISITSan [facility]: 04-24-2023 Hemoglobin A1c/Hemoglobin.total in BloodSan Luis Valley Regional Medical Center: 47-19-9873Gmlnd anesthetic sacral epidural blockMD Major Stevens Work Phone: Start: 72-78-6832Efrmdhtkz of local anesthetic into sacroiliac jointMD Major Stevens Work Phone: Start: 80-44-7054TE lumbar spine wo conMD Major Stevens Work Phone: Start: 18-16-5299BKI screeningDR TONIA VALERIEComment on above:Performed By: #### A1C #### [facility] [address] [address] [address] [place] InfirmaryStart: 68-83-1287UdhkxkksdxlXyygtyc Provider Plan of Treatment DateCare ActivityDetailAuthorStart: 61-76-6565Esyxuqwj screeningDiabetes: Retinopathy ScreeningDELTA [facility] HealthcareStart: 01-16-2025 End: 45-60-6360Ojlsbjh encounter ijshavgwj80/24/2025 9:00 AM EDT Office Visit [facility] [address] [place] [phone] Major Stevens MD [address] [place] [phone] [facility] FMStart: 95-42-2929Iefgwqcxo vaccinationNONV HealthcareStart: 29-05-0576Touef screening for proteinDiabetes: Urine Protein ScreeningDELTA COMMUNITY [facility] HealthcareStart: 75-88-0745Equbdwzjm for malignant neoplasm of colonNONV HealthcareStart: 07-16-2024 End: 83-22-6827Jkpihtcphn A1c/Hemoglobin.total in BloodHemoglobin A1c Lab Routine Type 2 diabetes mellitus with hyperglycemia, without long-term current use of insulin ([facility]) Expected: 07/16/2024 (Approximate), Expires: 07/16/2025 [facility] Work Phone: Comment on above:Expected: 07/16/2024 (Approximate), Expires: 07/16/2025Start: 07-16-2024 End: 26-12-7565Bsggqcb encounter procedureNOOU MEDICAL CENTER [facility]MOND FMComment on above:Arrived Start: 19-87-7727Jxibznhy screeningDiabetes: Retinopathy ScreeningDELTA COMMUNITY [facility] HealthcareStart: 24-28-9480Tohewjooso A1c measurementDiabetes: Hemoglobin A1C [facility] InstituteStart: 01-15-2024 End: 12-65-6558Gupekzu encounter procedureNOOU MEDICAL C[facility] FMComment on above:Arrived Start: 35-07-7164Dehpwnpvr [facility]: 50-71-7723Sylzs screening for proteinDiabetes: Urine Protein ScreeningFreeman Cancer InstituteStart: 75-65-9187Ezzypxjvpu A1c measurementDiabetes: Hemoglobin A1C [facility]: 07-10-2023 End: 00-14-9851Udvtbyx encounter fygcfjmmc85/16/2024 11:40 AM EDT Office Visit [facility] [address] [place] [address] [place] [address] Department [place] [address] [facility]ilionStart: 06-13-2023 End: 52-70-2644Ehxehhqv Hfqkgbv4106/13/2023 10:45 AM EDT Clinical Support [facility] [place] [address] [facility] [address]th [place] [address] DKClaiborne County Hospitalart: 06-01-2023 End: 27-71-6896Zzklyyiwc to same day surgery xcnrkl9006/01/2023 7:15 AM EST - 06/01/2023 12:55 PM EST Surgery [facility] [place] [address] [place] [address] [place] [address] [address] Department [place] [address] L4-5 and L5-S1 transforaminal lumbar interbody fusion with placement of interbody cage with decompression L3-4 posterior column osteotomy with L2-3 laminectomy and facetectomy and L2-S1 instrumented fusion using local bone autograft and BMP with pelvic fixation. [00098 (CPT )][facility] [place] ORComment on above:L4-5 and L5-S1 transforaminal lumbar interbody fusion with placement of interbody cage with decompression L3-4 posterior column osteotomy with L2-3 laminectomy and facetectomy and L2-S1 instrumented fusion using local bone autograft and BMP with pelvic fixation. [30638 ([facility] )]Start: 06-01-2023 End: 59-58-3217Dgqrhaot post/posterolatrl/postinterbody lumbarFusion Spine Transforaminal Interbody Lumbar with Navigation Spinal stenosis of lumbar region with neurogenic claudication Sagittal plane imbalance Scoliosis of thoracolumbar region due to degenerative disease of spine in adult Lumbar foraminal stenosis Lumbar radiculopathy, acute Lumbar stenosis with neurogenic claudication 06/01/2023 7:15 AM ESTVirtual [facility] [place] ORStart: 82-39-8822Sspmczkuft hospital visit by ovacrdlco61/08/2024 5:45 AM EST Hospital Encounter [facility] [place] [address] [place] [address] [place] [address] [address] Department [place] [address] [facility] [place] Start: 04-17-2023 End: 47-28-6702Vhwmchu encounter lejbcwapq66/23/2024 9:00 AM EST Office Visit [facility] [address] [place] [address] Dino Villa MD [address] [place] [address] [facility] SpineStart: 04-12-2023 End: 35-89-1913RZARISFJ POWERSHARE IMAGES TO EPICDOWNLOAD POWERSHARE IMAGES TO EPIC Imaging Routine Back pain, unspecified back location, unspecified back pain laterality, unspecified chronicity Expected: 04/12/2023, Expires: 04/12/2024[facility] [employer] Work Phone: Comment on above:Expected: 04/12/2023, Expires: 04/12/2024Start: 23-25-1593DtzbndenqWestern Reserve Hospitaltart: 01-17-2023 [facility]: 37-48-3517XFCWB-19 Vaccine ( season)COVID-19 Vaccine ( season)[facility]: 11-24-2022 Influenza vaccinationInfluenza Vaccine (#1)[facility]: 79-34-9919DSN High Risk: (Elderly (60+) or Population) (1 - Risk 60-74 years 1-dose series)RSV High Risk: (Elderly (60+) or Population) (1 - Risk 60-74 years 1-dose series)[facility]: 14-33-2758GID patients and/or patients aged 60+ years (1 - 1-dose 60+ series)RSV patients and/or patients aged 60+ years (1 - 1-dose 60+ series) [facility]: 86-20-9696TWB vaccine (optional 60+ years)RSV vaccine (optional 60+ years)[facility]: 81-11-8565YTMJP-19 Vaccine (2 - Bev risk series)COVID-19 Vaccine (2 - Bev risk series) [facility]: 27-61-3032Xeiusvyg (RZV) Vaccine (1 of 2)Shingles (RZV) Vaccine (1 of 2)[facility]: 55-21-3802Sxrvqk Vaccines (1 of 2)Zoster Vaccines (1 of 2)[facility]: 2007 Screening for malignant neoplasm of colonMetroHealthTumacacori: 43-78-4927Zjayv panel CholesterolMetroHealthTumacacori: 35-48-6264CGbZ/Tdap/Td Vaccines (1 - Tdap) DTaP/Tdap/Td Vaccines (1 - Tdap)[facility]: 35-57-9694Xjmppfwlfkpa vaccinationPneumococcal Vaccine (1 of 2 - PCV)[facility]: 54-76-8061Haffb screening for proteinDiabetes: Urine Protein ScreeningUnCleveland Clinic Fairview Hospital: 04-27-9121Dzfrgx Vaccines (1 of 2)Zoster Vaccines (1 of 2)[facility]: 62-28-7209Mrsgivmqf C screeningMetroHealthTumacacori: 80-14-3758Cuwtgxl + diphtheria + acellular pertussis vaccine (product)Tdap BoosterMetroRegency Hospital [facility]: 1975 HIV screeningHIV TestMetroRegency Hospital [facility] East: 02-72-6748Jtuaijfm foot examination Diabetes: Foot ExamUnCleveland Clinic Fairview Hospital: 38-43-3795Scohjjbk screeningDiabetes: Retinopathy ScreeningSouthern [facility]: 13-01-3266Mpmubbfnrhvh Vaccine: Pediatrics (0 to 5 Years) and At-Risk Patients (6 to 64 Years) (1 - PCV)Pneumococcal Vaccine: Pediatrics (0 to 5 Years) and At- Risk Patients (6 to 64 Years) (1 - PCV)[facility]: 13-63-9331Ygrlfxattgxb Vaccine: Pediatrics (0 to 5 Years) and At-Risk Patients (6 to 64 Years) (1 of 2 - PCV)Pneumococcal Vaccine: Pediatrics (0 to 5 Years) and At-Risk Patients (6 to 64 Years) (1 of 2 - PCV)[facility]: 77-14-1835JFC Vaccines (1 of 1 - Standard series)MMR Vaccines (1 of 1 - Standard series)[facility]: 34-31-8311IZD screeningHIV ScreeningSouthern [facility] Medical Center: 08-26-0168Bkidc panelLipid PanelSouthern [facility] Medical Center: 12-87-4291Jsjykxclb for malignant neoplasm of colonMetroRegency Hospital [facility]: 43-79-1869Rohsa screening for proteinDiabetes: Urine Protein ScreeningUnCleveland Clinic Fairview Hospital: 95-85-8083Fmpqcg Adult PhysicalYearly Adult PhysicalUnPremier Health Upper Valley Medical CenterArthdsis post/posterolatrl/postinterbody lumbarFusion Spine Transforaminal Interbody Lumbar with Navigation Spinal stenosis of lumbar region with neurogenic claudication Sagittal plane imbalance Scoliosis of thoracolumbar region due to degenerative disease of spine in adult Lumbar foraminal stenosis Lumbar radiculopathy, acute Lumbar stenosis with neurogenic claudication [facility] Work Phone: End: 30-15-0651Ukcelok [Mass/volume] in Serum or PlasmaARTESIA GENERAL [facility] Service Area Work Phone: comment on above:Once (Lab) for 1 Occurrences starting 06/01/2023 until 06/01/2023s needed (Lab) until discontinued starting 06/01/2023 End: 84-91-1816Tkdjpkvup spirometry InstructIncentive spirometry Instruct Respiratory Care Routine Once for 1 Occurrences starting 06/01/2023 until 06/01/2023[facility] Work Phone: Comment on above:Once for 1 Occurrences starting 06/01/2023 until 06/01/2023 End: 20-47-4439Mtmcchybcydrmv monitoring - IOMInteroperative monitoring - IOM Neurology Routine Once for 1 Occurrences starting 06/01/2023 until 06/01/2023 [facility] Work Phone: Comment on above:Once for 1 Occurrences starting 06/01/2023 until 06/01/2023atient EducationZaky Non Diagnostic [facility] Work Phone: Patient [facility] Work Phone: End: 96-46-8545Spzva oximetry, continuousPulse oximetry, continuous Respiratory Care Routine Continuous until discontinued starting 06/01/2023[facility] Work Phone: Comment on above:Continuous until discontinued starting 06/01/2023 End: 86-46-3755Xpyqf oximetry, continuousPulse oximetry, continuous Respiratory Care Routine Continuous until discontinued starting 06/02/2023UnPremier Health Upper Valley Medical Center Work Phone: Comment on above:Continuous until discontinued starting 06/02/2023 End: 73-24-2361Weycp function 2000 panel - Serum or PlasmaRenal function panel Lab Routine Morning draw (Lab) for 1 Occurrences starting 06/07/2023 until 05/24UnPremier Health Upper Valley Medical Center Work Phone: Comment on above:Morning draw (Lab) for 1 Occurrences starting 06/07/2023 until 06/07/2023 End: 43-50-3027Vihhykrw Catheter RemovalUrethral Catheter Removal Procedures Routine Once for 1 Occurrences starting 06/02/2023 until 06/02/2023[facility] Work Phone: Comment on above:Once for 1 Occurrences starting 06/02/2023 until 06/02/2023 End: 12-39-6544K-ray scoliosis 2 View (NON EOS)[facility] Service [facility] Work Phone: comment on above:Once for 1 Occurrences starting 04/24/2023 until 04/24/2023 End: 55-80-2035Z-ray scoliosis 2 View (NON EOS)[facility] Service [facility] Work Phone: comaoyp on above:Once for 1 Occurrences starting 07/10/2023 until 07/10/2023 End: 10-29-1848M-ray scoliosis 2 View (NON EOS)[facility] Service Area Work Phone: comjyjz on above:Once for 1 Occurrences starting 08/14/2023 until 08/14/2023 End: 38-10-9630BL Skull to Coccyx 2 or 3 ViewsARTESIA GENERAL HOSPITAL Service Area Work Phone: comnziy on above:Once for 1 Occurrences starting 05/27/2024 until 05/27/2024 Immunizations Immunization DateImmunizationNotesCare JyifudsbXtzihqbz43-07-7641dlmzpfsdz, injectable,quadrivalent, preservative free, pediatricSherif Lori Other noFurious Other [id number] virus vaccine, unspecified formulation[address] Work Phone: [phone]qzwccg, injectable,quadrivalent, preservative free, pediatricSherif Lori Other noFurious Other Payers DatePayer CategoryPayerPolicy [id number] Care (Private)COMMERCIAL [employer] Member Subscriber Plan / Payer (Effective 2023-Present) Name: Lobito Tomlin Relation to Subscriber: Self Name: Lobito Tomlin Payer ID: Not on file Type: Not on file Address: [address] [id number]-tyw [id number] Health Insurance [id number].3.690978.01252-65-6863Wxzlssq 1.2.840.758898.1.13.56.2.7.3.290624.66112-02-3997Cwnhcts9595880 2.840.1.159255.3.579.2.55622-66-0217Pbhipmp4545441 2.840.1.380970.3.579.2.93808-90-3552Luioqsc9785906 2.840.1.995985.3.579.2.55818-45-5421Uphbsex5341558 2.840.1.306230.3.579.2.37959-88-2831Dzzsngg0633049 2.84.1.081418.3.579.2.40379-56-7401Cqvjopc6976512 2.16840.1.873765.3.579.2.45726-93-3785Invxdvl74642155 2.16840.1.885493.3.579.2.98291-53-2482Bpfhzsv55292419 2.840.1.756383.3.579.2.63322-78-2273Vzmrtsw08707469 2.840.1.721032.3.579.2.742340-35-9664Eapivyn24995349 2.16840.1.053978.3.579.2.341163-22-9230Nygvhgd10776689 2.16.840.1.290552.3.579.2.932264-36-1117Vrxzftg76645499 2.16.840.1.443274.3.579.2.107457-62-9103Matwcfs13066712 2.840.1.750154.3.579.2.880398-65-9739Xffyqii93241076 2.840.1.667893.3.579.2.694922-77-7440Gfouypx21101542 2.840.1.258531.3.579.2.114470-53-1173Agaykfd88502504 2.840.1.701429.3.579.2.255617-09-9219Rxpdfev53667299 2.840.1.689138.3.579.2.593507-42-5722Nhptpxp30445447 2.840.1.590977.3.579.2.451709-82-5663Lctbjke9833218 2.840.1.413284.3.579.2.448074-62-2428Hpunzbc9888950 2.840.1.687368.3.579.2.447523-71-9684Kwvxnoa2189433 2.840.1.030573.3.579.2.328703-20-3739Ukqixkt4754666 2.840.1.796810.3.579.2.219253-00-7813Yvwywau3166348 2.840.1.641578.3.579.2.842300-90-4816Xfynzpv6754581 2.840.1.430994.3.579.2.256809-14-9089Cnpczwj1039778 2.16.840.1.161886.3.579.2.515229-76-1033Jqgitah2002873 2.16.840.1.860456.3.579.2.925500-52-9668Amtbejd0682104 2..840.1.313695.3.579.2.660311-59-6454Hyudzpr3219882 2.16.840.1.335570.3.579.2.537085-33-8725Odixwem4112480 2..840.1.636848.3.579.2.667209-42-2077Oamexvh7593684 2.16.840.1.433199.3.579.2.681765-72-8038Qmhxanh85034486064-43-9911Uosqjuv 43701257Tdqwiic28379582 2.16.840.1.235276.3.579.2.323Bimffzm25086286 2.16.840.1.413856.3.579.2.302Jwjgbwb55726626 2.16.840.1.061033.3.579.2.531 Pgssrun40667556 2..840.1.272306.3.579.2.531 Social History DateTypeDetailFacilityStart: 05-17-2023 End: 97-18-4531Aqu Assigned At BirthUnCleveland Clinic Fairview Hospital: 29-35-5242Yii Assigned At BirthRiverview Health InstituteTobacco smoking status NHISTobacco smoking consumption unknownMetroHealthStart: 52-29-5473Jjt Assigned At BirthNot on fileMetroHealthStart: 04-14-2023 End: 54-07-7479Ccpvjjyy to SARS-CoV-2 (event)Not sureSouthern [facility] Center: 03-07-2023 End: 85-03-6316Brzydyd smoking status NHISNever smoked tobaccoSouthern [facility] Medical Center: 03-07-2023 End: 42-27-9048Okfvokc use and exposureSmokeless tobacco non-userUnPremier Health Upper Valley Medical Center Work Phone: Start: 05-17-2023 End: 92-01-4911Mhsmmhc intakeEx-drinker (finding)[facility] Work Phone: Start: 05-17-2023 End: 23-22-2095Xtpnrze of Social functionUnPremier Health Upper Valley Medical CenterHow often to you have a drink containing alcohol?NeverUC Medical CenterHow many standard drinks containing alcohol do you have on a typical day?Patient does not drinkUnPremier Health Upper Valley Medical Center Work Phone: In the past 12 months, was there a time when you were not able to pay the mortgage or rent on time?NoUC Medical Center Work Phone: are you now , , , , never or living with a partner?MarriedNOMS HealthcareHow hard is it for you to pay for the very basics like food, housing, medical care, and heatingNot very hardNOMS HealthcareDo you feel stress - tense, restless, nervous, or anxious, or unable to sleep at night because yourmind is troubled all the time - these days [OSQ]Not at allNOMS Healthcare(I/We) worried whether (my/our) food would run out before (I/we) got money to buy more.Never trueNOMS Healthcare Start: 26-03-5109Imuttxi Commentcaffeine: soda, chocolateNOMS Healthcare Medical Equipment Procedure CodeEquipment CodeEquipment Original TextEquipment IdentifierDates Modulus Tlif-A,[id number] [id number]_uswJixyq: 90-29-6779Dymbgcp on above: Description: Per bill only jdr 06/03Moduls Tlif- [id number] Yqoslo09338_mwy Start: 20-89-8929Tvfmhqp on above:Description: Per bill only jdr 06/03Infuse [facility] Small - Peaj9183ctv - [id number]_hohSvzmv: 61-98-4941Lxuyq, Reline Lock, 5.5mm Open Tulip - [id number]_ewiLbhfd: 71-80-5206Wozkf, Reline-O, 7.5x50mm 2s Polyaxial - [id number]_mcnHaivn: 76-94-4645Ikspaj-O Conn, 5-6/5-6mm O-O Med - [id number]_fbsBzaxx: 79-99-2496Fqftg, Reline-O, 8.5x50mm 2s Polyaxial - [id number]_uakEzwrp: 03-71-8415Mnmrb, Reline-O, 8.5x80mm 2s Poly Iliac - [id number]_vehPvlpq: 83-08-4679Dqdkk, Reline-O, 6.5x45mm 2s Polyaxial - [id number]_khxHntth: 24-87-2587Qnqwp, Reline-O, 7.5x45mm 2s Polyaxial - [id number]_sjoAmnhr: 43-43-5302Sezx Exp Ti Jaren 5.5mm 4+ Tm14543_uvlRvbsz: 60-15-179391wa Offset Pkez20928_dioUsqtt: 27-31-0552Tilcswf on above: Description: Per bill only jdr 06/03USE DIRECTED ONCE [id number]: 27-62-2209LSM DIRECTED ONCE [id number]: 06-12-2024 Goals DatePatient GoalDesired Activity/StatePersonal health goal Clinical Notes 12-26-2022 to 07-16-2024 Note Date & [id number] History of Present illness Narrative* Major Stevens MD - 07/16/2024 9:49 AM EDTAssociated Problem(s): Type 2 diabetes mellitus with hyperglycemia, without long-term current use of insulin ([facility]) Reports BS controlled and due for A1C. Stick to ADA diet and limit carbs. * Major Stevens MD - 07/16/2024 9:48 AM EDTAssociated Problem(s): Lumbar spondylosis Pain recently worse and treat with prednisone. Use flexeril PRN. * Major Stevens MD - 07/16/2024 9:48 AM EDTAssociated Problem(s): Essential hypertension (CMS/HCC) BP elevated today but reports normal at home and monitor PRN. * Major Stevens MD - 07/16/2024 9:00 AM EDT Images from the original note were not [...] home and monitor PRN. documented in this encounterFreeman Cancer [id number] History of Present illness Narrative* Isha Valentino MD - 05/27/2024 11:00 AM EST I just had the pleasure of seeing Mr. 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 He is a very pleasant 63 -year-old male, who recently underwent a L2-S1 Fusion with me on 06/01/2023 and is almost 1 year out from his surgery. Mr. Tomlin is doing extremely well from his surgery and has no complaints whatsoever today. He isoverall very pleased with the results. He denies [...] from now with an AP and lateral longcassette scoliosis films. It was a pleasure to participate in Mr. Tomlin care. All questions were answered to the patients satisfaction and he explained understanding of the further treatment plan. Isha Valentino MD, [facility], FAANS Director - Minimally Invasive Spine Surgery [facility] Bus Or Truck Garage Mechanic of Neurological Surgery [facility] [employer] [place], [place] ---Some of this note was completed using [employer] voice recognition technology and sometimes the software misinterprets words. This may include unintended errors with respect to translation of words, typographical errors or grammar errors which may not have been identified prior to finalization of the chart note. Please take this into account when reading this note--- documented in this [facility] Work Phone: 1(769) 550-223010-22-2024 History of Present illness Narrative* Major Stevens MD - 01/15/2024 9:23 AM EDTAssociated Problem(s): Essential hypertension (CMS/HCC) BP improved and monitor PRN. * Major Stevens MD - 01/15/2024 9:23 AM EDTAssociated Problem(s): Type 2 diabetes mellitus with hyperglycemia, without long-term current use of insulin (CMS/HCC) Reports BS controlled and last A1C 6.3. Stick to ADA diet and limit carbs. * Major Stevens MD - 01/15/2024 9:23 AM EDTAssociated Problem(s): Annual physical exam Reviewed labs. Discussed proper diet and regular aerobic exercise. Need aerobic exercise 5-6 days aweek for 30 minutes at a time. Smaller portions and limit total calories. Colonoscopy every 10 years. Tetanus every 10 years. Advised not to smoke. Discussed daily Aspirin therapy. * Major Stevens MD - 01/15/2024 9:00 AM EDT Images from the original note were not [...] to limit total daily calories. Labs drawn inJuly. BS controlled and average 97. Tries to [...] hyperglycemia, without long-term current use of insulin ([facility]) Reports BS controlled and last A1C 6.3. [...] Discussed daily Aspirin therapy. documented in this encounterFreeman Cancer [id number] History of Present illness Narrative* Isha Valentino MD - 08/14/2023 2:40 PM EDT I just had the pleasure of seeing Mr. 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 He is a very pleasant 63 -year-old [...] this point of time he would like toreturn to work and I believe we can [...] FAANS Director - Minimally Invasive Spine Surgery [facility] [employer] Garage Mechanic of Neurological Surgery [employer] [employer] [place], [place] ---Some of this note was completed using [employer] voice recognition technology and sometimes the software misinterprets words. This may include unintended errors with respect to translation of words, typographical errors or grammar errors which may not have been identified prior to finalization of the chart note. Please take this into account when reading this note--- documented in this [facility] Work Phone: [phone]) 933-859403-13-2024 Hospital course Narrative* Renetta Knox, GLYCERIN SUPERVISOR-SHEET METAL SUPERVISOR - 06/06/2023 4:56 PM EDT Discharge Diagnosis Lumbar radiculopathy, right Issues Requiring [...] Provider Department Center 06/13/2023 10:45 AM [facility] NURSE [id number] [facility] 07/10/2023 11:40 AM Isha Valentino MD [id number] [facility] ELIECER Hernandez documented in this [facility] Work Phone: 1([phone]) 145-270603-13-2024 History of Present illness Narrative* Itzel Scott, PT - 06/06/2023 4:00 PM EDT Physical Therapy Physical Therapy Treatment Patient Name: [...] (none) End of Session Communication: Bedside nurse, Subassembly Supervisor, Physician Assessment Comment: 63 yo male with Right lumbar radiculopathy presents s/p L2- pelvis instrumented fusion, L3-4 PCO, L4-5 and L5-S1 [...] HTN, DM2 c/b peripheral neuropathy, psoriatic arthritis (onmethotrexate and leflunomide), p/w progressive chronic low back [...] significant progress with gait/stairs, is now safe toDC home with assist; has been up walking [...] able to correct temporarily (but reports is ahabit from pre-op) Static Sitting Balance Static Sitting-Balance [...] steps (consecutively) with 1 rail and min MANAGER STUDENT SERVICES, 1 step at a time) Outcome Measures: [facility] Basic Mobility Turning from your back to [...] 06/06/23 Expected End: 06/20/23 Pain - Adult * Alyssa Barboza MD - 06/06/2023 2:16 AM EDT Lobito Tomlin is a 63 y.o. male [...] MEDICALLY CLEARED FOR DISCHARGE Alyssa Barboza MD * Patricio Salas RN - 06/05/2023 12:17 PM EDT Patient recd mod -intensity by pt/ot referral sent to [facility] which is the Foc of patient * Donato Currie MD - 06/05/2023 5:15 AM EDT Lobito Tomlin is a 63 y.o. male [...] MEDICALLY CLEARED FOR DISCHARGE Donato Currie MD * Kailey Gonzales, PT - 06/04/2023 3:59 PM EDT Physical Therapy Physical Therapy Treatment Patient Name: [...] hand placement Stairs Stairs: No Outcome Measures: [facility] Basic Mobility Turning from your back to [...] at 4:00 PM - Kailey Gonzales, PT * Patricio Salas RN - 06/04/2023 11:52 AM EDT 06/04/23 Transitional Care Coordination Progress Note: Patient discussed during interdisciplinary rounds. Team members present: DAWN JACQUES MD Plan per Medical/Surgical team: adm dx Lumbar radiculopathy, Maintain drain no uprights oral pain medications Discharge disposition: patient recd mod-intensity given list of snf choices medically ready 2-days Status-Inpatient Payer- [facility] Potential Barriers: None ADOD: 06/07/2023 Patricio Salas RN TCC [phone] * Reji Bacon MD - 06/04/2023 5:22 AM EDT Lobito Tomlin is a 63 y.o. male [...] Spirometry DVT prophylaxis PT-OT Aggressive bowel regimen * Amita Jacques, OT - 06/03/2023 2:13 PM EDT Occupational Therapy Evaluation Patient Name: Lobito Tomlin Today's Date: 06/03/2023 Time Calculation Start Time: 1145 Stop Time: 1219 Time Calculation (min): 34 min Assessment IP OT Assessment OT Assessment: impaired ADLs/transfers Prognosis: Good End of Session Communication: Bedside nurse End of Session Patient Position: Up in chair, Alarm off, not on at start of session (patient's wifepresent in room) Plan: Treatment Interventions: ADL retraining, [...] Shower/Tub: Tub/shower unit Prior Function: Level of Evangeline: Independent with ADLs and functional transfers, Independent with homemaking with ambulation ADL Assistance: Independent Homemaking Assistance: Independent Ambulatory Assistance: Independent Vocational: (works for [employer]) Leisure: enjoys going to [employer] games Hand Dominance: Right Prior Function Comments: [...] prior to surgery Strength: 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 [...] Jacques OTR/L Inpatient Occupational Therapist Rehab Office: [phone] * Donato Currie MD - 06/03/2023 3:08 AM EDT Lobito Tomlin is a 63 y.o. male [...] patient with no restrictions Donato Currie MD * Deborah Stevenson, PT - 06/02/2023 4:08 PM EST Physical Therapy Physical Therapy Evaluation & Treatment [...] Prior Function Per Pt/Caregiver Report Level of Evangeline: Independent with ADLs and functional transfers, Independent [...] Touch: No apparent deficits Strength Strength Comments: BUEs WFL Static Sitting Balance Static Sitting-Balance Support: [...] verbal cues, Moderate tactile cues Outcome Measures: [facility] Basic Mobility Turning from your back to [...] Adult Education Documentation Precautions, taught by Deborah Stevenson, PT at 06/02/2023 4:07 PM. Learner: Family, Patient Readiness: Acceptance Method: Explanation, Demonstration Response: Verbalizes Understanding, Demonstrated Understanding Comment: Educated on spinal precautions Education Comments No comments found. * Ely Abdullahi OT - 06/02/2023 11:47 AM EST Occupational Therapy Therapy Communication Note Patient Name: [...] (OTR/L, OTD) Inpatient Occupational Therapist Rehab Office: [phone] * Destinee Pisano MD - 06/02/2023 9:48 AM EST Acute Pain Service Postop Pain HPI - Palliative: relieved with IV analgesics and regional local anesthetics Provocative: movement Quality: burning and aching Radiation: none Severity: 5/10 Timing: constant 24-HOUR OPIOID CONSUMPTION: WIRE PRODUCTS INSPECTOR hydromorphone 0.8mg Hydromorphone 1mg Oxycodone 10mg Scheduled [...] male patient who presents for L4-5 and L5- S1 transforaminal lumbar fusion with decompression L3-4 and L2-3 laminectomy and facetectomy and L2-S1 fusion with Dr. Valentino. Acute Pain consulted for block for postoperative pain control. Plan: - Bilateral paravertebral SS blocks performed preoperatively on 06/01/23 - Acute pain service will sign off - Rest of pain management [place] [phone] ph [phone] Associated attestation - Amada Palomino MD - 06/04/2023 9:13 AM EDT I personally saw the patient, evaluate and reviewed labs. I argeed with resident's plan. * Donato Currie MD - 06/02/2023 1:36 AM EST Lobito Tomlin is a 63 y.o. male [...] will plan for downgrade Maintain drain Dc WIRE PRODUCTS INSPECTOR/menezes No uprights AM labs PTOT-OK to work with patient with no restrictions Donato Currie MD * Morena Curtis - 05/31/2023 2:24 PM EST Pharmacy Medication History Review Lobito Tomlin is a 63 y.o. male who is planned to be admitted for No Principal Problem: There is no principal problem currently on the Problem List. Please update the Problem List and refresh.. Pharmacy called the patient prior to their scheduled procedure and reviewed the patient's [id number]-hv-ijutmayho medications for accuracy. Medications ADDED: Acetaminophen 500mg [...] Below are additional concerns with the patient's HEALTH PROMOTION SPECIALIST list. none Morena Curtis [facility] Please reach out via Secure Chat for questions documented in this [facility] Work Phone: [phone]) [phone] Plan of care note* Care Plan - Charla Pedro RN - 06/06/2023 4:15 AM EDT Problem: Pain Goal: Takes deep breaths with [...] barriers include getting rest premedicating for activities. [facility]03-13-2024 Miscellaneous Notes* Care Plan - Charla Pedro RN - 06/06/2023 4:15 AM EDT Problem: Pain Goal: Takes deep breaths with [...] barriers include getting rest premedicating for activities. * Care Plan - Charla Pedro RN - 06/05/2023 3:37 AM EDT Problem: Pain Goal: Takes deep breaths with [...] address these barriers include use call light. * Care Plan - Charla Pedro RN - 06/03/2023 10:00 PM EDT Problem: Safety - Adult Goal: Free from [...] medication is given according to the order. * Perioperative Nursing Note - Karen Shah RN - 06/01/2023 3:58 PM EST Agree with prior nurse assessment. Labs sent. * Op Note - Isha Valentino MD - 06/01/2023 8:39 AM EST L4-5 and L5-S1 transforaminal lumbar interbody fusion with placement of interbody cage with decompression L3-4 posterior column osteotomy and L2-S1 instrumented fusion using local bone autograft and BMP with pelvic fixation. (B) Operative Note Date: 06/01/2023 OR Location: [facility] OR Name: Lobito Tomlin, : 1960, [...] Surgeons * Isha Valentino - Primary Resident/Fellow/Other Android Ui Developer: Surgeon(s) and Role: * Terrell Johnson MD [...] with intractable low back and lower extremity symptomswith good correlation between the imaging studies and [...] through L5 and over the sacral ala anddorsal sacrum bilaterally including upto S2 level. Spinous process clamp was attached to the L2 spinous process and the dynamic reference array was attached to this. The O-arm was brought into the field and intraoperative CT scan performed and the images transferred to the GlobeIn system for use in intraoperative image-guided computer-assisted [...] of S1 was performed using drill, osteotomes andkerrison rongeurs to decompress the nerves roots. Ligamentum [...] was packed with local autograft and inserted intothe intervertebral space under fluoroscopy. AP and lateral [...] subsequent surgery and hands intraoperatively given the nec essity in a challenging area to obtain the [...] L2 through S1 were decorticated using a high- speed drill. The rods were seated in the heads of the screws and through a combination of jaren translation, reduction, cantilever and compression across multiple segments including osteotomy level with excellent coronal deformity and loss of lumbar lordosis correction. Significant in situ and coronal bending of the construct had to be performed for further correction of the deformity. The rods were secured in place usingset caps and final tightened using the torque parcel post truck driver and counter-torque.A third supporting jaren was placed on the left side using a [id number] connector between L2 and L3 level and [...] marino portions of the procedure. Isha Valentino * Brief Op Note - Terrell Johnson MD - 06/01/2023 8:39 AM EST Date: 06/01/2023 OR Location: [facility] OR Name: Lobito Tomlin, : 1960, [...] bone autograft and BMP with pelvic fixation. 76841 - MO ARTHRODESIS COMBINED TQ 1NTRSPC LUMBAR MO OSTEOTOMY SPINE PST/PSTLAT APPR 1 VRT SGM LMBR [84285] MO ARTHRODESIS PST/PSTLAT TQ 1NTRSPC EA ADDL NTRSPC [32706] MO STACK FACETECTOMY & FORAMOTOMY 1 VRT SGM LUMBAR [42981] MO POSTERIOR SEGMENTAL INSTRUMENTATION 3-6 VRT SEG [61461] MO PELVIC FIXATION OTHER THAN SACRUM [30663] MO ALLOGRAFT FOR SPINE SURGERY ONLY MORSELIZED [] MO AUTOGRAFT SPINE SURGERY LOCAL FROM SAME INCISION [] MO STEREOTACTIC COMPUTER ASSISTED PX SPINAL [58039] MO INSJ BIOMCHN DEV INTERVERTEBRAL DSC SPC W/ARTHRD [39761] MO ARTHRODESIS CMBN TQ 1NTRSPC EACH ADDITIONAL [21495] Surgeons * Isha Valentino - Primary Resident/Fellow/Other Android Ui Developer: Surgeon(s) and Role: * Terrell Johnson MD [...] 490 mL Specimen: No specimens collected Staff: Trauma Registrar: Levi Gonzales RN; Kimberli Hastings RN Scrub Person: Lucian Castillo; Sam Khan Findings: excellent correction Complications: None; patient tolerated the procedure well. Disposition: PACU - hemodynamically stable. Condition: stable Specimens Collected: No specimens collected Attending Attestation: Isha Valentino * Hospital Course - ELIECER Hernandez - 06/01/2023 7:07 AM EST 63 year old male with Hx of [...] with scheduled follow up. documented in this encounterUC [facility] Center Work Phone: [phone]) [phone] Plan of care note* Care Plan - Charla Pedro RN - 06/05/2023 3:37 AM EDT Problem: Pain Goal: Takes deep breaths with [...] address these barriers include use call light. [facility] Work Phone: [phone]) 602-305003-10-2024 Plan of care note* Care Plan - Charla Pedro RN - 06/03/2023 10:00 PM EDT Problem: Safety - Adult Goal: Free from [...] medication is given according to the order. [facility] Work Phone: [phone] 776-301803-08-2024 Note* Perioperative Nursing Note - Karen Shah RN - 06/01/2023 3:58 PM EST Agree with prior nurse assessment. Labs sent. [facility]03-08-2024 Note* Op Note - Isha Valentino MD - 06/01/2023 8:39 AM EST L4-5 and L5-S1 transforaminal lumbar interbody fusion with placement of interbody cage with decompression L3-4 posterior column osteotomy and L2-S1 instrumented fusion using local bone autograft and BMP with pelvic fixation. (B) Operative Note Date: 06/01/2023 OR Location: [facility] OR Name: Lobito Tomlin, : 1960, [...] Surgeons * Isha Valentino - Primary Resident/Fellow/Other Android Ui Developer: Surgeon(s) and Role: * Terrell Johnson MD [...] with intractable low back and lower extremity symptomswith good correlation between the imaging studies and [...] through L5 and over the sacral ala anddorsal sacrum bilaterally including upto S2 level. Spinous process clamp was attached to the L2 spinous process and the dynamic reference array was attached to this. The O-arm was brought into the field and intraoperative CT scan performed and the images transferred to the GlobeIn system for use in intraoperative image-guided computer-assisted [...] of S1 was performed using drill, osteotomes andkerrison rongeurs to decompress the nerves roots. Ligamentum [...] was packed with local autograft and inserted intothe intervertebral space under fluoroscopy. AP and lateral [...] subsequent surgery and hands intraoperatively given the nec essity in a challenging area to obtain the [...] L2 through S1 were decorticated using a high- speed drill. The rods were seated in the heads of the screws and through a combination of jaren translation, reduction, cantilever and compression across multiple segments including osteotomy level with excellent coronal deformity and loss of lumbar lordosis correction. Significant in situ and coronal bending of the construct had to be performed for further correction of the deformity. The rods were secured in place usingset caps and final tightened using the torque parcel post truck driver and counter-torque.A third supporting jaren was placed on the left side using a [id number]-hxcp connector between L2 and L3 level and [...] marino portions of the procedure. Isha Valentino [facility] Work Phone: [phone] Note* Brief Op Note - Terrell Johnson MD - 06/01/2023 8:39 AM EST Date: 06/01/2023 OR Location: [facility] OR Name: Lobito Tomlin, : 1960, [...] bone autograft and BMP with pelvic fixation. 79605 - MO ARTHRODESIS COMBINED TQ 1NTRSPC LUMBAR MO OSTEOTOMY SPINE PST/PSTLAT APPR 1 VRT SGM LMBR [71818] MO ARTHRODESIS PST/PSTLAT TQ 1NTRSPC EA ADDL NTRSPC [15584] MO STACK FACETECTOMY & FORAMOTOMY 1 VRT SGM LUMBAR [74905] MO POSTERIOR SEGMENTAL INSTRUMENTATION 3-6 VRT SEG [44872] MO PELVIC FIXATION OTHER THAN SACRUM [55669] MO ALLOGRAFT FOR SPINE SURGERY ONLY MORSELIZED [] MO AUTOGRAFT SPINE SURGERY LOCAL FROM SAME INCISION [] MO STEREOTACTIC COMPUTER ASSISTED PX SPINAL [01942] MO INSJ BIOMCHN DEV INTERVERTEBRAL DSC SPC W/ARTHRD [65946] MO ARTHRODESIS CMBN TQ 1NTRSPC EACH ADDITIONAL [41972] Surgeons * Isha Valentino - Primary Resident/Fellow/Other Android Ui Developer: Surgeon(s) and Role: * Terrell Johnson MD [...] 490 mL Specimen: No specimens collected Staff: Trauma Registrar: Levi Gonzales RN; Kimberli Hastings RN Scrub Person: Lucian Castillo; Sam Khan Findings: excellent correction Complications: None; patient tolerated the procedure well. Disposition: PACU - hemodynamically stable. Condition: stable Specimens Collected: No specimens collected Attending Attestation: Isha Valentino [facility] Work Phone: [phone]) 209-953803-08-2024 Consult note* Destinee Pisano MD - 06/01/2023 7:27 AM EST Consults Acute Pain Service Lobito Tomlin is a 63 y.o. year old male patient who presents for L4-5 and L5- S1 transforaminal lumbar fusion with decompression L3-4 and [...] pain disorder COVID-19 2020 recovererd Diabetes mellitus ([facility]) F/W PCP Hemoglobin A1c 8.0% or greater 03/08/2023 Last A1c=8.2, jardiance was added. Hypertension F/W PCP, not taking any medications Low back pain August 2018 Lumbar spondylosis Peripheral neuropathy bilateral feet R>L PONV (postoperative nausea and vomiting) Spinal stenosis scheduled for surgery with Dr. Valentino on 06/01/2023 Type 2 diabetes mellitus ([facility]) September 2008 Vision loss wears glasses Past [...] in bowel habits, melena, hematemesis, hematochezia, nausea, vomiting,diarrhea. : No discharge, dysuria, frequency, urgency, hematuria. [...] POCT Glucose 99 74 - 99 mg/dL Lboito Tomlin is a 63 y.o. year old male patient who presents for L4-5 and L5- S1 transforaminal lumbar fusion with decompression L3-4 and L2-3 laminectomy and facetectomy and L2-S1 fusion with Dr. Valentino. Acute Pain consulted for block for postoperative pain control. Plan: - Bilateral paravertebral SS blocks performed preoperatively on 06/01/23 - Acute pain service will follow POD1 if inpatient - Rest of pain management per [place] [phone] ph [phone] Associated attestation - Amada Palomino MD - 06/01/2023 10:58 AM EST I personally saw the patient, discussed risks and benefits, answered all questions, reviewed the chart and agree with the resident's plan. [facility] Work Phone: 1([phone]) 618-818003-08-2024 Consult note* Destinee Pisano MD - 06/01/2023 7:27 AM EST Consults Acute Pain Service Lobito Tomlin is a 63 y.o. year old male patient who presents for L4-5 and L5- S1 transforaminal lumbar fusion with decompression L3-4 and [...] pain disorder COVID-19 2020 recovererd Diabetes mellitus ([facility]) F/W PCP Hemoglobin A1c 8.0% or greater 03/08/2023 Last A1c=8.2, jardiance was added. Hypertension F/W PCP, not taking any medications Low back pain August 2018 Lumbar spondylosis Peripheral neuropathy bilateral feet R>L PONV (postoperative nausea and vomiting) Spinal stenosis scheduled for surgery with Dr. Valentino on 06/01/2023 Type 2 diabetes mellitus ([facility]) September 2008 Vision loss wears glasses Past Surgical History: Procedure Laterality Date COLONOSCOPY OTHER SURGICAL HISTORY right knee arthroscopy x2 Family History Problem Relation Name Age of Onset Aortic aneurysm Mother Cancer Father Bhavik Fernandesadlin Stroke Brother Bhavik Tomlin Social History Socioeconomic [...] in bowel habits, melena, hematemesis, hematochezia, nausea, vomiting,diarrhea. : No discharge, dysuria, frequency, urgency, hematuria. [...] POCT Glucose 99 74 - 99 mg/dL Lboito Tomlin is a 63 y.o. year old male patient who presents for L4-5 and L5- S1 transforaminal lumbar fusion with decompression L3-4 and L2-3 laminectomy and facetectomy and L2-S1 fusion with Dr. Valentino. Acute Pain consulted for block for postoperative pain control. Plan: - Bilateral paravertebral SS blocks performed preoperatively on 06/01/23 - Acute pain service will follow POD1 if inpatient - Rest of pain management per [place] [phone] ph [phone] Associated attestation - Amada Palomino MD - 06/01/2023 10:58 AM EST I personally saw the patient, discussed risks and benefits, answered all questions, reviewed the chart and agree with the resident's plan. documented in this encounterUC [facility] Center Work Phone: [phone]) 397-698903-08-2024 Hospital Note* Hospital Course - ELIECER Hernandez - 06/01/2023 7:07 AM EST 63 year old male with Hx of HTN, DM2 c/b peripheral neuropathy, psoriatic arthritis (on methotrexate and leflunomide), who presented with progressive chronic low back pain and bilateral lower extremity radiculopathy R>L. 05/31 s/p L2-pelvis instrumented fusion, L3-4 PCO, L4-5 and L5-S1 TLIFs. 06/05 drain removed PT/OT eval recommend SNF; re-eval 06/05 recommend home with Home Care. Discharged with scheduled follow up. [facility] Work Phone: [phone]) 237-800003-08-2024 Attending History and physical note* Terrell Johnson MD - 06/01/2023 6:15 AM EST H&P reviewed. The patient was examined and [...] Isha Valentino MD, [facility] [employer]isher of Neurological Surgery [employer] [facility] [employer] Attending Surgeon Director - Minimally Invasive Spine Surgery [place], [place] Source Note - Lama Ewelina MD [...] pain disorder COVID-19 2020 recovererd Diabetes mellitus ([facility]) F/W PCP Hemoglobin A1c 8.0% or greater 03/08/2023 Last A1c=8.2, jardiance was added. Hypertension F/W PCP, not taking any medications Low back pain August 2018 Lumbar spondylosis Peripheral neuropathy bilateral feet R>L PONV (postoperative nausea and vomiting) Spinal stenosis scheduled for surgery with Dr. Valentino on 06/01/2023 Type 2 diabetes mellitus ([facility]) September 2008 Vision loss wears glasses Past [...] Case seen and discussed with Dr. Alvarado. [facility] Work Phone: 1(102) 971-819803-08-2024 History and physical note* Terrell Johnson MD - 06/01/2023 6:15 AM EST H&P reviewed. The patient was examined and [...] Isha Valentino MD, [facility] Strip Pol[employer] of Neurological Surgery [employer] [employer] Attending Surgeon Director - Minimally Invasive Spine Surgery [place], [place] Source Note - Lama Ewelina MD [...] pain disorder COVID-19 2020 recovererd Diabetes mellitus ([facility]) F/W PCP Hemoglobin A1c 8.0% or greater 03/08/2023 Last A1c=8.2, jardiance was added. Hypertension F/W PCP, not taking any medications Low back pain August 2018 Lumbar spondylosis Peripheral neuropathy bilateral feet R>L PONV (postoperative nausea and vomiting) Spinal stenosis scheduled for surgery with Dr. Valentino on 06/01/2023 Type 2 diabetes mellitus ([facility]) September 2008 Vision loss wears glasses Past [...] discussed with Dr. Alvarado. [facility] Work Phone: 1(957) 820-269301-03-2024 Evaluation note* Encounter Date Diagnosis Assessment Notes Treatment Notes Treatment Clinical Notes Mar, Lumbosacral spondylosis (ICD-10 - M47.817) I reviewed the x-ray lumbar spine from 10/16/2022 and which shows levoscoliosis. Diffuse endplate and facet joint degenerative changes with moderate disc space narrowing L3-L4, L4-L5 and L5-S1. No of pathological motion on flexion- extension. I independently reviewed the MRI of the lumbar spine from 12/15/2022 [id number] with patient and and which shows worsening spinal canal and neural foraminal narrowing secondary to disc and facet degenerative changes at the L3-L4 L4-L5 and L5-S1 at the L4-L5 there is severe spinal canal stenosis which is slightly worse when compared to previous exam. There is right central and subarticular disc extrusion with cranial cranial migration which is new. C ontributing to severe right neuroforaminal narrowing which is consistent with the patient's symptoms. Pharmacological management will start gabapentin 300 mg daily. Will refer patient for surgical consult with Dr. Ahn as Dr. Dumont will be out of the office for the next 3 months. Mar,Lumbar radiculopathy (ICD-10 - M54.16) Mar,Levoscoliosis of lumbar spine (ICD-10 - M41.86) [facility] Other 11-27-2023 Evaluation note* Encounter Date Diagnosis Assessment Notes Treatment Notes Treatment Clinical Notes Jan, Lumbar radiculopathy (ICD-10 - M 54.16) 62 year old male here for follow [...] Dumont for surgical evaluation at this time. Jan,Sacroiliitis (ICD-10 - M46.1) Consider bilateral sacroiliac joint injection under fluoroscopic guidance in the future Jan,hronic pain (ICD-10 - G89.29) Continue with current treatment plan [facility] note* Encounter Date Diagnosis Assessment Notes [...] injection. Risks and benefits of procedure explained topatient; patient verbalizes understanding. Dec,Lumbar radiculopathy (ICD-10 - M54.16) Proceed with treatment plan, can consider referral to neurosurgery in the future if needed Dec,Lumbosacral spondylosis (ICD-10 - M47.817) In the future if his lumbar pain persists we can consider lumbar facet medial branch nerve blocks followed by RFA if applicable. Dec,hronic pain (ICD-10 - G89.29) Follow up after procedure. [facility] Other Evaluation noteNo InformationNort Cuff-Protect Other Evaluation noteNo assessment information available [facility] Work Phone: Evaluation note* Diagnosis Back pain, unspecified back location, unspecified back pain laterality, unspecified chronicity- Primary [facility] Diagnosis Spinal stenosis of lumbar region with neurogenic claudication documented in this encounter [facility] Work Phone: Evaluation note* Diagnosis [...] with neurogenic claudication documented in this encounter [facility] Work Phone: [phone] note* Diagnosis Lumbar radiculopathy, right- Primary Lumbar [...] with neurogenic claudication documented in this encounter [facility] Work Phone: [phone] note* Diagnosis Status post spinal surgery Other postprocedural status documented in this encounter [facility] Work Phone: Evaluation note* Diagnosis Postoperative follow-up- Primary Follow-up examination, following unspecified surgery documented in this encounter [facility] Work Phone: [phone] note* Diagnosis S/P lumbar spinal fusion Arthrodesis status Scoliosis of thoracolumbar region due to degenerative disease of spine in adult documented in this encounter [facility] Work Phone: Evaluation note* Diagnosis [...] Unspecified essential hypertension documented [facility] encounter [facility]* Diagnosis S/P spinal surgery- Primary Other postprocedural status documented in this encounter [facility] Work Phone: Evaluation note* Diagnosis S/P lumbar spinal fusion Arthrodesis status Scoliosis of thoracolumbar region due to degenerative disease of spine in adult documented in this encounter [facility] Work Phone: Evaluation note* Diagnosis [...] Type Description Date Medical History DM Medical HistoryarthritisSurgical Historyarthroscopic right knee [id number] HistoryProcedure:eye exam;Disease:Diabetes mellitus, type 2 without comp.2013 Surgical HistorycolonoscopySurgical HistoryProcedure:Arthroscopy knee;Disease: 2004Surgical HistoryProcedure:Meds;Disease:Psoriatic ArthitisSurgical History Procedure:removed;Disease:Groin cystSurgical HistoryColonoscopy, Internal Hemorrhiods- Dr. Solorio10/02/2014Hospitalization Historysee above [facility] Other Reason for referral (narrative)* Reason *Waiting for appt Please refer to Dr Dumont for surgical evaluation Diagnosis 1 Lumbar radiculopathy (M54.16) Referral Organization [facility] Referring Provider First Name Abel Referring Provider Last Name Lori Referring Provider Specialty Pain Medici ne Referred Organization [facility] urosurgery Referred Provider David Dumont Referred Address [address],[place] [address] ,[place], [place],[address] Referred Provider Specialty Neurological Surgery Referral Priority Routine General Notes Bk Hansen 02/19 01:27:01 PM > Received today, sent P2P [facility] Other Reason for visit Narrativereferred by Dr. Sandoval surgical [facility], [facility] Other reason for visit Narrative* Imaging (Routine) - Pending ReviewSpecialtyDiagnoses / ProceduresReferred By ContactReferred To ContactRadiology Diagnoses S/P lumbar spinal fusion Scoliosis of thoracolumbar region due to degenerative disease of spine in adult Procedures XR full spine 2 view scoliosis X-ray scoliosis 2 View ([place]) [place] [address] [address] Department [place] [address] Phone: tel: fax: Referral IDStatusReasonStart DateExpiration DateVisits RequestedVisits [id number] Review Perform Procedure [facility] Work Phone: Summary Purpose Family History Relationship Condition Age at Onset Recorded Date/T evie father Malignant neoplasm Unknown Diabetes mellitusUnknownNot SpecifiedHeart diseaseUnknownbrotherHeart disease Unknown Advance Directives Advance Directive Response Recorded Date/ Time Advance Directives No November 12, 2018 12:39pm Advance Directive Response Recorded Date/ Time Advance Directives No November 12, 2018 11:39am Code StatusDate ActivatedDate InactivatedCommentsFull Code06/01/2023 7:32 PM QuestionAnswerCommentsPlan of Care:Code Status Discussion CompletedDecision Maker:PatientDate ActivatedDate InactivatedComments06/01/2023 7:32 PMQuestion AnswerCommentsPlan of Care:* Code Status Discussion Completed Decision Maker:* Patient Date ActivatedDate InactivatedComments06/01/2023 7:32 PMQuestionAnswerCommentsPlan of Care:* Code Status Discussion Completed Decision Maker:* Patient Chief Complaint and Reason for Visit Chief Complaint M54.16 Back Pain Chief Complaint M54.16 Back Pain [id number] Reason for Referral SpecialtyDiagnoses / ProceduresReferred By ContactReferred To ContactRadiology Diagnoses S/P lumbar spinal fusion Scoliosis of thoracolumbar region due to degenerative disease of spine in adult Procedures X-ray scoliosis 2 View (NON EOS) [place] [address] [address] Department [place] [address] Referral IDStatusReasonStart DateExpiration DateVisits RequestedVisits [id number] Perform Procedure /[id number] / ProceduresReferred By ContactReferred To ContactRadiology Diagnoses Status post spinal surgery Procedures X-ray scoliosis 2 View (NON EOS) [place] [address] [address] Department [place] [address] Referral IDStatusReasonStgifford DateExpiration DateVisits RequestedVisits [id number] Perform Procedure /[id number] / ProceduresReferred By ContactReferred To [facility] Diagnoses Lumbar [place], [place] [address] [address] Department [place] [address] Referral IDStatusReasonStgifford DateExpiration DateVisits RequestedVisits [id number] Specialty Services Required /[id number] / ProceduresReferred By Contact Referred To Contact Diagnoses Surgery, elective Preop testing Preoperative general physical examination Procedures [place] 12 [place] [address] [address] Department of Anesthesiology/[place] [address] Referral IDStatusReasonStart DateExpiration DateVisits RequestedVisits [id number]/22/20242/[id number] / Procedures Referred By ContactReferred To ContactRadiology Diagnoses Spinal stenosis of lumbar region with neurogenic claudication Procedures X-ray scoliosis 2 View (NON EOS) [place] [address] [address] Department [place] [address] Referral IDStatusReasonStart DateExpiration DateVisits RequestedVisits [id number] Perform Procedure /[id number] / ProceduresReferred By ContactReferred To ContactRadiology Diagnoses Back pain, unspecified back location, unspecified back pain laterality, unspecified chronicity Procedures DOWNLOAD SpiderOakHARE IMAGES TO Dino Syed MD [facility] [place] [address] [facility] DI[facility]NOSTIC RADI[facility] [address] [place] [address] Referral IDStatusReasonTumacacori DateExpiration DateVisits RequestedVisits [id number]/18/20241/ Additional Source Comments (unrecognized sect ion and content) No Status Records FoundNo Status Records FoundNo Status Records FoundNo Status Records FoundNo Status Records FoundNo Status Records FoundNo Status Records FoundNo Status Records Found INFORMATION SOURCE (unrecogn ized section and content) DATE CREATED AUTHOR 07/22/2022 [facility] DATE CREATED AUTHOR AUTHOR'S ORGANIZ ATION 02/19/2023 [facility] DATE CREATED AUTHOR AUTHOR'S ORGANIZ ATION 05/26/2023 [facility] DATE CREATED AUTHOR AUTHOR'S ORGANIZ ATION 06/12/2023 [facility] DATE CREATED AUTHOR AUTHOR'S ORGANIZ ATION 12/04/2023 [facility] DATE CREATED AUTHOR AUTHOR'S ORGANIZ ATION 06/01/2024 [facility] DATE CREATED AUTHOR AUTHOR'S ORGANIZ ATION 07/17/2024 [facility] EPIC REASON FOR VISIT (unrecogniz ed section and content) ReasonCommentsFollow-[id number] PainFlare up in lower backReasonCommentsAnnual ExamStates he's here for an annual examEverything is going goodSpecialty Diagnoses / ProceduresReferred By ContactReferred To ContactRadiology Diagnoses S/P lumbar spinal fusion Scoliosis of thoracolumbar region due to degenerative disease of spine in adult Procedures X-ray scoliosis 2 View (NON EOS) [place] [address] [address] Department of Neurological Surgery [place] [id number] Referral IDStatusReasonStgifford DateExpiration DateVisits RequestedVisits [id number] Perform Procedure /[id number] / ProceduresReferred By ContactReferred To ContactRadiology Diagnoses Status post spinal surgery Procedures X-ray scoliosis 2 View (NON EOS) [place] [address] [address] Department of Neurological Surgery [place] [id number] Referral IDStatusReasonStgifford DateExpiration DateVisits RequestedVisits [id number] Perform Procedure /[id number] / ProceduresReferred By ContactReferred To Contact Diagnoses Spinal stenosis of lumbar [...] Lumbar stenosis with neurogenic claudication [M48.062] Procedures MO ARTHRODESIS COMBINED TQ 1NTRSPC LUMBAR MO OSTEOTOMY SPINE PST/PSTLAT APPR 1 VRT SGM LMBR MO ARTHRODESIS PST/PSTLAT TQ 1NTRSPC EA ADDL NTRSPC MO STACK FACETECTOMY & FORAMOTOMY 1 VRT SGM LUMBAR MO POSTERIOR SEGMENTAL INSTRUMENTATION 3-6 VRT SEG MO PELVIC FIXATION OTHER THAN SACRUM MO ALLOGRAFT FOR SPINE SURGERY ONLY MORSELIZED MO AUTOGRAFT SPINE SURGERY LOCAL FROM SAME INCISION MO STEREOTACTIC COMPUTER ASSISTED PX SPINAL MO INSJ BIOMCHN DEV INTERVERTEBRAL DSC SPC W/ARTHRD MO ARTHRODESIS CMBN TQ 1NTRSPC EACH ADDITIONAL L4-5 and L5-S1 transforaminal lumbar interbody fusion with placement of interbody cage with decompression L3-4 posterior column osteotomy with L2-3 laminectomy and facetectomy and L2-S1 instrumented fusion using local bone autograft and BMP [place] pelvic [place]. [place] [address] [address] Department [place] [address] [facility] [place] [address] [place] [address] Referral IDStatusReasonStart DateExpiration DateVisits RequestedVisits [id number] / ProceduresReferred By ContactReferred To Contact Diagnoses Surgery, elective Preop testing Preoperative general physical examination Procedures ECG 12 [place] [address] [address] Department of Anesthesiology/[place] [address] Referral IDStatusReasonStgifford DateExpiration DateVisits RequestedVisits [id number]/22/20242/[id number] / Procedures Referred By ContactReferred To ContactRadiology Diagnoses Spinal stenosis of lumbar region with neurogenic claudication Procedures X-ray scoliosis 2 View (NON EOS) [place] [address] [address] Department [place] [address] Referral IDStatusReasonStart DateExpiration DateVisits RequestedVisits [id number] Perform Procedure /[id number] office noteF/U AFTER CAUDAL EPIDURALCAUDAL EPIDURAL STEROID INJECTIONbilateral SI joint injection4 WEEK FOLLOW UP REVIEW MRI Care Teams (unrecognized sec tion and content) Team Status: Active Member Role Status Dates Major Stevens MD Primary Care Provider Active Team Status: Inactive Member Role Status Dates Major Stevens MD Primary Care Provider Active Abel Sandoval MDAttending ProviderActive Team Status: Inactive Member Role Status Dates Major Stevens MD Primary Care Provider Active Sully Barney NPAttending ProviderActiveTeam MemberRelationshipSpecialtyStart DateEnd Date Major Stevens MD [address] [place] [address] [facility]/17/23Team MemberRelationshipSpecialtyStart DateEnd Date Major Stevens MD [address] [place] [address] [facility] - [facility]05/17/23Team MemberRelationshipSpecialtyStart DateEnd Date Major Stevens MD [address] [place] [address] [facility] Medicine05/17/23Team MemberRelationshipSpecialtyStart DateEnd Date Major Stevens MD [address] [place] [address] [facility] - [facility]05/17/23Team MemberRelationshipSpecialtyStart DateEnd Date Major Stevens MD [address] [place] [address] [facility] - [facility]05/17/23Team MemberRelationshipSpecialtyStart DateEnd Date Major Stevens MD [address] [place] [address] PCP - GeneralFamily Medicine04/16/23Team MemberRelationshipSpecialtyStart DateEnd Date Major Stevens MD [address] [place] [address] PCP - GeneralFamily Medicine04/16/23Team MemberRelationshipSpecialtyStart DateEnd Date Major Stevens MD [address] [place] [address] PCP - GeneralFamily Medicine04/16/23Team MemberRelationshipSpecialtyStart DateEnd Date Maojr Stevens MD [address] [place] [address] PCP - GeneralFamily Medicine04/16/23Team MemberRelationshipSpecialtyStart DateEnd Date Major Stevens MD [address] [place] [address] PCP - GeneralFamily Medicine05/17/23Team MemberRelationshipSpecialtyStart DateEnd Date Major Stevens MD [address] [place] [address] PCP - GeneralFamily Medicine05/17/23Team MemberRelationshipSpecialtyStart DateEnd Date Major Stevens MD [address] [place] [address] PCP - GeneralFamily Medicine04/16/23Team MemberRelationshipSpecialtyStart DateEnd Date Major Stevens MD [address] [place] [address] PCP - [facility] Medicine04/16/23Team MemberRelationshipSGreater [facility] DateEnd Major Stevens MD [address] [place] [address] PCP - [facility]04/16/23Team MemberRelationshipSGreater [facility] DateEnd Date Major Stevens MD [address] [place] [address] PCP - Man [facility]04/16/23 Scheduled Active and Recently Administ ered Medications (unrecognized section and content) Medication Order// acetaminophen (Tylenol) tablet 650 mg 650 mg, oral, Every 6 hours, First dose on Sun06/01/23 at 2000, Phase II/On Unit, If ordered PRN forpain, nurse is permitted to administer this medication for higher pain scores based on patient preference? Yes * 0255 (Given - Provider: Charla Pedro RN) * 0842 (Given - Provider: Jacquelin Gaona RN) * 1314 (Given - Provider: Jacquelin Gaona RN) * 2144 (Given - Provider: Charla Pedro RN) * 0151 (Given - Provider: Charla Pedro RN) * 0813 (Given - Provider: Roseanne Garcia, RN) * 1431 (Given - Provider: Roseanne Garcia, RN) * 2112 (Given - Provider: Charla Pedro RN) * 0407 (Given - Provider: Charla Pedro RN) * 0849 (Given - Provider: Fernanda Zapata, RN) * 1407 (Given - Provider: Fernanda Zapata, RN) * 1999 (Due) bisacodyl (Dulcolax) suppository 10 mg 10 mg, rectal, Daily, First dose on Sun06/04/23 at 1030 * 1155 (Given - Provider: Jacquelin Gaona RN) * 1347 (Given - Provider: Roseanne Garcia RN - Comment: Patient request) * 0900 (Not Given - Provider: Fernanda Zapata RN - Reason: Patient/family refused) cyclobenzaprine (Flexeril) tablet 10 mg 10 mg, oral, 3 times daily, First dose on Sun06/01/23 at 2100, Phase II/On Unit * 0842 (Given - Provider: Jacquelin Gaona RN) * 1628 (Given - Provider: Jacquelin Gaona RN) * 2143 (Given - Provider: Charla Pedro RN) * 0813 (Given - Provider: Roseanne Garcia RN) * 1431 (Given - Provider: Roseanne Garcia RN) * 2112 (Given - Provider: Charla Pedro RN) * 0849 (Given - Provider: Fernanda Zapata RN) * 1600 (Given - Provider: Fernanda Zapata RN) * 2100 (Due) heparin (porcine) injection 5,000 Units 5,000 Units, subcutaneous, Every 8 hours, First dose on 06/02/23 at 0000, Phase II/On Unit * 0000 (Given - Provider: Charla Pedro RN) * 0843 (Given - Provider: Jacquelin Gaona RN) * 1628 (Given - Provider: Jacquelin Gaona RN) * 0151 (Given - Provider: Charla Pedro RN) * 0814 (Given - Provider: Roseanne Garcia, DAWN) * 1653 (Given - Provider: Roseanne Garcia RN) * 0057 (Given - Provider: Charla Pedro RN) * 0849 (Given - Provider: Fernanda Zapata RN) * 1600 (Given - Provider: Fernanda Zapata RN) insulin [...] unit(s) if Blood glucose is between 351-400 Notifyprovider unit(s) if Blood Glucose is greater than 400 mg/dL * 0800 (Not Given - Provider: Jacquelin Gaona RN - Reason: Order parameters not met) * 1155 (Given - Provider: Jacquelin Gaona RN) * 1628 (Given - Provider: Jacquelin Gaona RN) * 0814 (Given - Provider: Roseanne Garcia RN) * 1200 (Not Given - Provider: Roseanne Garcia RN - Reason: Order parameters not met - Comment: patient not eating) * 1851 (Not Given - Provider: Roseanne Garcia RN - Reason: Order parameters not met - Comment: Patient not eating at this time. Patient stated he is eating later) * 0850 (Given - Provider: Fernanda Zapata RN) * 1311 (Given - Provider: Fernanda Zapata RN) * 1700 (Not Given - Provider: Fernanda Zapata RN - Reason: Patient/family refused) ketorolac (Toradol) injection 30 mg (COMPLETED) 30 mg, intravenous, Every 8 hours scheduled, First dose on Sun06/02/23 at 0600, For 3 days, Do not administer within 6 hours of other NSAIDs (such as ibuprofen or naproxen). * 0601 (Given - Provider: Charla Pedro RN) * 1314 (Given - Provider: Jacquelin Gaona RN) * 2144 (Given - Provider: Charla Pedro RN) lidocaine (Xylocaine) 10 mg/mL (1 %) injection 50 mg 50 mg (5 mL), infiltration, Once, On Sun06/06/23 at 1130, For 1 dose * 1130 (Due) lidocaine 4 % patch 1 patch 1 patch, transdermal, Administer over 12 Hours, Daily, First dose on Sun06/01/23 at 2000, Phase II/On Unit, Apply to low back. Patch will remain on for 12 hours, then removed for [address] patch directly over any surgical incisions or wounds. * 0842 (Medication Applied - Provider: Jacquelin Gaona RN) * 2100 (Medication Removed - Provider: Charla Pedro RN) * 0813 (Medication Applied - Provider: Roseanne Garcia RN - Comment: back) * 2100 (Medication Removed - Provider: Charla Pedro RN) * 0849 (Medication Applied - Provider: Fernanda Zapata RN - Comment: mid upper back) * 2048 (Due: Medication Removed - Provider: Fernanda Zapata RN) polyethylene glycol (Glycolax, Miralax) packet 17 g (CANCELED) 17 g, oral, Daily, First dose on Sun06/01/23 at 2000, Phase II/On Unit, Bowel Regimen - for prevention of constipation. * 0842 (Given - Provider: Jacquelin Gaona RN) polyethylene glycol (Glycolax, Miralax) packet 17 g 17 g, oral, 3 times daily, First dose (after last modification) on Sun06/04/23 at 1500, Bowel Regimen - for prevention of constipation. * 1500 (Not Given - Provider: Jacquelin Gaona RN - Reason: Patient/family refused) * 2100 (Not Given - Provider: Charla Pedro RN - Reason: Patient/family refused) * 0813 (Given - Provider: Roseanne Garcia RN) * 1431 (Given - Provider: Roseanne Garcia RN) * 2112 (Given - Provider: Charla Pedro RN) * 0849 (Given - Provider: Fernanda Zapata RN) * 1500 (Not Given - Provider: Fernanda Zapata RN - Reason: Patient/family refused) * 2100 (Due) potassium chloride CR (Klor-Con M20) ER tablet 40 mEq (COMPLETED) 40 mEq, oral, Once, On Sun06/06/23 at 1200, For 1 dose, Best given with food and plenty of water tominimize gastric irritation. Do not crush or chew. * 1306 (Given - Provider: Fernanda Zapata RN - Comment: new order) sennosides-docusate sodium (Marycruz-Colace) 8.6-50 mg per tablet 2 tablet 2 tablet, oral, 2 times daily, First dose on Sun06/01/23 at 2100, Phase II/On Unit, Bowel Regimen - for prevention of constipation Hold for loose stools * 0842 (Given - Provider: Jacquelin Gaona RN) * 2099 (Not Given - Provider: Charla Pedro, RN - Reason: Patient/family refused) * 0813 (Given - Provider: Roseanne Garcia, RN) * 2111 (Given - Provider: Charla Pedro, RN) * 0849 (Given - Provider: Fernanda Zapata, RN) * 2099 (Due) Medication Order// sodium chloride 0.9% infusion 100 mL/hr, intravenous, Continuous, Starting on Sun06/01/23 at 2000, Phase II/On Unit, Convert IV tosaline lock when taking oral fluids. Medication Order// benzocaine-menthol (Cepastat Sore Throat) 15-3.6 mg lozenge 1 lozenge 1 lozenge, Mouth/Throat, Every 2 hour PRN, sore throat, Starting on Sun06/01/23 at 193, Phase II/OnUnit dextrose 10 % in water (D10W) infusion [...] to 40 mg/dL, Starting on Sun06/01/23 at 193, Phase II/On Unit, May repeat until blood [...] respiratory depression, Starting on Sun06/01/23 at 1932, PhaseII/On Unit, If respiratory rate is less than 8 breaths/minute or patient is difficult to arouse stop any narcotics and contact physician. Administer slow IV push. Repeat as ordered until patient's res piratory rate is greater than 12 breaths/minute. naloxone (Narcan) injection 0.2 mg 0.2 mg, intravenous, As needed, respiratory depression, Once PRN patient is unarousable, and respiratory rate less than 8, Starting on Sun06/01/23 at 1932, Phase II/On Unit, HOLD [employer]ODU[employer] INSPECTOR Infusion and notify H.O. immediately ondansetron (Zofran) [...] second line, Starting on Sun06/02/23 at 0724, Ifordered PRN for pain, nurse is permitted to administer this medication for higher pain scores basedon patient preference? Yes * 0004 (Given - Provider: Charla Pedro RN) * 0430 (Given - Provider: Charla Pedro RN) * 0428 (Given - Provider: Charla Pedro RN) * 1848 (Given - Provider: Roseanne Garcia RN) * 0057 (Given - Provider: Charla Maria Isabel Rein, RN) * 1823 (Given - Provider: Fernanda Zapata RN) oxygen [...] 1932, Phase II/On Unit, 2nd Line. Give MO if patient is unable to take orally. If inadequate response diugqs32 minutes, proceed to next-line agent for same PRN reason or contact provider if no further options ordered. promethazine (Phenergan) tablet 25 mg(Linked Group 2) 25 mg, oral, Every 6 hours PRN, nausea/vomiting, second line, Starting on Sun06/01/23 at 1932, PhaseII/On Unit, 2nd Line. If inadequate response within 60 minutes, proceed to next-line agent for samePRN reason or contact provider if no further options ordered. Medication Order06/03/// lidocaine (Xylocaine) injection - Omnicell Override Pull Starting on Sun06/06/23 at 1114, For 1 dose, Created by cabinet override * 1115 (Due) Order Group 1: ondansetron (Zofran) tablet 4 [...] inadequate response within 60 minutes, proceed to next- line agent for same PRN reason or contact provider if no further options ordered. When administering via IV Push, administer over 3-5 minutes.&l t;br> Group 2: promethazine (Phenergan) tablet 25 mgJump to med 25 mg, oral, Every 6 hours PRN, nausea/vomiting, second line, Starting on Sun06/01/23 at 1932, PhaseII/On Unit
2nd Line. If inadequate response within 60 minutes, proceed to next-line agent for same PRN reason or contact provider if no further options ordered.
Or promethazine (Phenergan) suppository 25 mgJump to med 25 mg, rectal, Every 12 hours PRN, nausea/vomiting, second line, Starting on Sun06/01/23 at 1932, Phase II/On Unit
2nd Line. Give MO if patient is unable to take orally. [...] BE BASED ON THE PRIMARY CLINICAL RECORDS. [employer] provides no warranty or guarantee of the accuracy or completeness of information in this document.
[2025-01-14 10:40] LABS: Hematocrit 45.6 % (42.0-54.0); Hemoglobin 14.9 g/dL (14.0-18.0); Immature Granulocytes Abs Auto 0.01 10^3/uL (0.00-0.03); Immature Granulocytes Pct Auto 0.2 % (0.0-0.5); Lymphocytes Absolute Auto 1.4 10^3/uL (1.2-3.8); Mean Corpuscular HGB Conc 32.7 g/dL (29.9-35.2); Mean Corpuscular Hemoglobin 28.7 pg (25.9-34.0); Mean Corpuscular Volume 87.7 fL (80.0-94.0); Platelet Count 270 10^3/uL (150-450); Red Blood Count 5.20 10^6/uL (4.70-6.10); White Blood Count 6.3 10^3/uL (4.0-11.0)
[2025-01-14 11:45] LABS: Alanine Aminotransferase 40 U/L (16-63); Albumin Globulin Ratio 1.1; Albumin Level 4.1 g/dL (3.4-5.0); Alkaline Phosphatase 94 U/L (46-116); Anion Gap 13.4; Aspartate Amino Transferase 27 U/L (15-37); Blood Urea Nitrogen 8.0 mg/dL (7.0-18.0); Calcium 9.0 mg/dL (8.5-10.1); Carbon Dioxide 26.7 mmol/L (21.0-32.0); Chloride 103 mmol/L (98-107); Cholesterol 89 mg/dL (<=200); Estimated GFR (African America >60 (>=60 mL/min/1.73m^2); Estimated GFR (Non-African Ame >60 (>=60 mL/min/1.73m^2); Globulin 3.9 g/dL; Glucose 121 mg/dL (74-106); HDL Cholesterol 43 mg/dL (40-60); Potassium 3.1 mmol/L (3.5-5.1); Sodium 140 mmol/L (136-145); Thyroid Stimulating Hormone 1.149 uIU/mL (0.358-3.740); Total Protein 8.0 g/dL (6.4-8.2); Triglycerides 49 mg/dL (<=150); VLDL CHOLESTEROL 9.8 mg/dL
[2025-01-14 16:26] LABS: Microalbum Creatinine Ratio Ur 23.3 mg/g (0.0-29.9)
== END 2025-01-14 10:20 | disposition home or self-care (01) ==
LOC: LAB 10:23
PROVIDERS: PCP Family Medicine; Visit Provider Family Medicine
DX: Z00.00 Encounter for general adult medical examination without abnormal findings (principal); Z12.5 Encounter for screening for malignant neoplasm of prostate; E11.65 Type 2 diabetes mellitus with hyperglycemia
CPT/HCPCS: 36415; 80053; 80061; 82043; 82570; 83036; 84443; 85025; G0103

== ENCOUNTER 2025-02-18 11:09 | Outpatient (OUT) | payer OTHER, SELFPAY ==
--- OUTSIDE RECORDS SUMMARY | 2025-02-18 11:14 | XMS_ITS | Clinical Summary ---
Author Organization [facility] Address [address] [place] [address] Care Team Providers Care Sports Analyst Name Role Phone Major Garcia MD Primary Care Provider [phone] Allergies No known active allergies Medications MedicationSigDispense [...] therapy. Encounter for long-term (current) use of ujdqesmaivs25/24/2024Screening PSA (prostate specific antigen)10/17/2023Obesity (BMI 30-39.9)10/17/2023Flexural rmpnylkgb53/22/2024 Assessment & Plan (10/17/2023 9:52 AM EDT): Increased rash and use steroid cream. Assessment & Plan (07/16/2023 9:50 AM EDT): Rash improved and use steroid cream PRN. Assessment & Plan (04/16/2023 3:14 PM EST): Rash appears to be psoriasis and treat with prednisone. Use steroid cream PRN. Type 2 diabetes mellitus with hyperglycemia, without long-term current use of prprarf3703/07/2023 Assessment & Plan (07/16/2024 9:49 AM EDT): [...] and continue methotrexate. Follow with specialists. Lumbar bimfzntdrpd86/13/2023 Assessment & Plan (07/16/2024 9:48 AM EDT): [...] abnormal MRI. Follow up with surgeon. Essential /13/2023 Assessment & Plan (07/16/2024 9:48 AM EDT): [...] controlled and monitor PRN. Family History Medical HistoryRelationNameCommentsCancerFatherDiabetesFatherLung cancerFather Coronary artery diseaseMotherRelationNameStatusCommentsFatherDeceasedMother Social History Tobacco UseTypesPacks/DayYears UsedDateSmoking Tobacco: NeverSmokeless Tobacco: Never Tobacco Cessation:Counseling Given: Not Answered Alcohol UseStandard Drinks/WeekCommentsNot Currently1 (1 standard drink = 0.6 oz pure alcohol)caffeine: soda, tiegglyedU0957 Health LiteracyAnswerDate Recorded How often do you [...] Twice a week07/09/2024How often do you attend muslim or gnosticism services?1 to 4 times per year07/09/2024Do you belong to any clubs or organizations such as muslim groups, unions, fraSpeechTrans or athletic groups, or school groups?No 07/09/2024How often do you attend meetings of the clubs or organizations you belong to?Never07/09/2024re you , , , , never , or living with a partner?Ozxcems2507/09/2024UDIT-CAnswerDate RecordedQ1: How often do you have a [...] food, housing, medical care, and heating?Not very hard07/09/2024[facility] Occup[facility] - Occupational Stress QuestionnaireAnswerDate [...] to sleep or slept in ashelter (including now)?Patient jblovmo1302/28/2023Housing Stability Vital SignAnswerDate RecordedIn the last 12 months, was there a time when you were not able to pay the mortgage or rent on time?No07/09/2024In the past 12 months, how many times have you moved where you were living?t any time in the past 12 months, were you homeless or living in a senior care (including now)?No 07/09/2024Sex and Gender InformationValueDate RecordedSex Assigned at BirthNot on fileLegal NhaGkcj6706/07/2022 7:00 PM EDTGender IdentityNot on fileSexual OrientationNot on file Last Filed Vital Signs Vital SignReadingTime TakenCommentsBlood Sxrtgeta224/7204 9:15 AM EDT Kobsg1313 9:15 AM GAOAvrrpkrrojn70.4 ??C (97.5 ??F)07/16/2024 9:15 AM EDTRespiratory Cfkv766907/16/2024 9:15 AM EDTOxygen Quqkulqeyi57%07/16/2024 9:15 AM EDTInhaled Oxygen Concentration--Vjaqrv52.3 kg (208 lb)07/16/2024 9:15 AM EDT Pkqoro066.8 cm (5' 10 )07/16/2024 9:15 AM EDTBody Mass Index29.8404/ 9:15 AM EDT Plan of Treatment Not on file Insurance Care Teams Team MemberRelationshipSpecialtyStart DateEnd Date Major Garcia MD PCP - GeneralFamily Medicine04/16/23
--- OUTSIDE RECORDS SUMMARY | 2025-02-18 11:14 | XMS_ITS | Clinical Summary ---
Author Organization [facility] Address [address] [facility] [place] [address] Care Team Providers Care Welcome Hostess Name Role Phone Unavailable Primary Care Provider Unavailabl e Source Comments The following information is NOT included in Care Everywhere downloads:Psychiatric notes, ECG results, Cardiac Rehab notes, Pulmonary Function notes, data from SmartForms (includes but not limited toPregnancy data,audiograms, eye exams, pre-surgical evaluation notes, well-child exam data).[facility] Social History Tobacco UseTypesPacks/DayYears UsedDateSmoking Tobacco: Never AssessedSex and Gender InformationValueDate RecordedSex Assigned at BirthNot on fileLegal Sex Male04/11/2023 9:21 AM ESTGender IdentityNot on fileSexual OrientationNot on file Plan of Treatment Health MaintenanceDue DateLast XjtfIthiihenDdxzafkuexw26/21/1963HIV Test 1977Hepatitis C Ycvvjaqx21/21/1981Tdap Jiepsmc7605/16/1980Hepatitis A (HAV) Vaccine (optional start 19+ years)05/16/19811253Bjceieyhbkz33/21/1998CRC Screening 2007Cologuard (Stool DNA)2007FIT2007Pneumococcal Vaccine(s) (50+ yrs) (1 of 1 - PCV)2012Shingles (RZV) Vaccine (1 of 2)2012 Hepatitis B (HBV) Vaccine (optional start 60+ years)3COVID-19 Vaccine (2 - 2024-26 season)506/12/2020Influenza Vaccine (#1)2024RSV vaccine (adult) (1 - 1-dose 75+ series)2037 Insurance * Guarantor: Lobito Tomlin TypeRelation to PatientDate of BirthPhone Billing AddressPersonal/UkmereFghd79/21/1961 ([place]) [address] [place] [address]
--- OUTSIDE RECORDS SUMMARY | 2025-02-18 11:14 | XMS_ITS ---
Author Organization [facility] Address [address] [place] [address] Phone Care Team Providers Care Egg Caser Name Role Phone Major Garcia MD Primary Care Provider + Active Problems ProblemNoted DateDiagnosed DateLumbar radiculopathy, right06/01/2023Lipoprotein xspejyduxy04/05/2024hronic pain04/30/20232925Vtmlfdvyi06/05/2024Muscle pain 04/30/2023ain of right hip joint04/30/2023soriasis with igoiygqfpgr95/05/2024 Iliac bone pain04/30/2023Spinal stenosis of lumbar region with neurogenic ugfzhvlvvveq38/30/2024Sagittal plane unwiqauit85/30/2024Scoliosis of thoracolumbar region due to degenerative disease of spine in adult04/24/2023 Lumbar foraminal uyuiexem04/30/2024Lumbar radiculopathy, acute04/24/2023Lumbar stenosis with neurogenic ubgmhloffrrq20/30/2024H/O Spinal metrtof1104/24/2023 Flexural rfzmdnexz92/22/2024 Overview (04/30/2023): Last Assessment & Plan: Rash appears to be psoriasis and treat with prednisone. Use steroid cream PRN. Lumbar rvnmhzouecv27/13/2023 Overview (04/30/2023): Last Assessment & Plan: Pain unchanged and follow up with surgeon. Primary /13/2023 Overview (04/30/2023): Last Assessment & Plan: BP controlled and monitor PRN. Type 2 diabetes mellitus with hyperglycemia, without long-term current use of nrymrzz8003/07/2023 Overview (04/30/2023): Last Assessment & Plan: BS improved with jardiance and continue. Stick to ADA diet and limit carbs. Pain in left leg3Pain in right hip10/16/2022Other dedicated intermodal truck driver (current) drug /29/2023Psoriatic pbysuorullt95/26/2023Poorly controlled diabetes tfaksnrn55/23/2022 Current Treatment and Therapy Plans No current plan information found. Past Treatment and Therapy Plans No past plan information found. Lifetime Dose Tracking * ChemicalLifetime DoseAutomatic EntryManual EntryAir Kerma2,173.322 mGy 2,173.322 mGy0 mGy Resolved Problems ProblemNoted DateDiagnosed DateResolved DateMalignant neoplasm of prostate
--- OUTSIDE RECORDS SUMMARY | 2025-02-18 11:14 | XMS_ITS | Clinical Summary ---
Author Organization [employer] [facility] tem Address [facility] [place] [address] Care Team Providers Care Electrolysis Operator Name Role Phone Unavailable Primary Care Provider Unavailabl e Social History Tobacco UseTypesPacks/DayYears UsedDateSmoking Tobacco: Never AssessedChildcare AnswerDate KchalmesFodlwdwipQazjfxe86/12/2019EmploymentAnswerDate Recorded JpcnpyinmsYyvjtng23/12/2019Purpose - LifeAnswerDate RecordedPurpose and direction in npuuVsltzfy83/11/2021ex and Gender InformationValueDate Recorded Sex Assigned at BirthNot on fileLegal FfpLetd2610/29/2014 11:23 AM EDTGender IdentityNot on fileSexual OrientationNot on file Plan of Treatment Health MaintenanceDue DateLast DoneCommentsDepression Dxusotkzo24/21/1975Tobacco Pyipumxfm16/21/1975Adult BMI Jxodsqlek46/21/1981DTaP,Tdap and Td Vaccines (1 - Tdap)1981Zoster (Shingles) Vaccine (1 of 2)2012Influenza Vaccine 11/24/2024RSV ( or age 60+ yrs) (1 - 1-dose 75+ series)2037 [employer] [place] [address]
--- OUTSIDE RECORDS SUMMARY | 2025-02-18 11:14 | XMS_ITS | Clinical Summary ---
Author Organization [facility] Address [address] [place] [address] Phone Care Team Providers Care Dairy Clerk Name Role Phone Major Garcia MD Primary [...] Active Problems ProblemNoted DateDiagnosed DateLumbar radiculopathy, right06/01/2023Lipoprotein koyafwqphj82/05/2024hronic pain04/30/20230375Rinuqdhee41/05/2024Muscle pain 04/30/2023ain of right hip joint04/30/2023soriasis with wxirahfwxkn64/05/2024 Iliac bone pain04/30/2023Spinal stenosis of lumbar region with neurogenic zqyqvmvtopkt61/30/2024Sagittal plane lsuqlfjch66/30/2024Scoliosis of thoracolumbar region due to degenerative disease of spine in adult04/24/2023 Lumbar foraminal /30/2024Lumbar radiculopathy, acute04/24/2023Lumbar stenosis with neurogenic nqmqtmmxcfeo80/30/2024H/O Spinal lhyminl2904/24/2023 Flexural subwwruvd54/22/2024 Overview (04/30/2023): Last Assessment & Plan: Rash appears to be psoriasis and treat with prednisone. Use steroid cream PRN. Lumbar /13/2023 Overview (04/30/2023): Last Assessment & Plan: Pain unchanged and follow up with surgeon. Primary pigdwgjqjdui67/13/2023 Overview (04/30/2023): Last Assessment & Plan: BP controlled and monitor PRN. Type 2 diabetes mellitus with hyperglycemia, without long-term current use of lfptggv2403/07/2023 Overview (04/30/2023): Last Assessment & Plan: BS improved with jardiance and continue. Stick to ADA diet and limit carbs. Pain in left leg01/06/2023ain in right hip10/16/2022Other penitentiary (current) drug fwngoad95/29/2023Psoriatic nxqzepzknaa31/26/2023oorly controlled diabetes kupaqdxr16/23/2022 Resolved Problems ProblemNoted DateDiagnosed DateResolved DateMalignant neoplasm of prostate Family History Medical HistoryRelationNameCommentsStrokeBrotherJames Lambert DomadlinCancerFather Bhavik Quiorz SpradlinAortic aneurysmMotherRelationNameStatusCommentsBrotherJames Lambert SpradlinFatherWoodrowandres Quiorz SpradlinMotherDeceased Social History Tobacco UseTypesPacks/DayYears UsedDateSmoking Tobacco: [...] Last Filed Vital Signs Vital SignReadingTime TakenCommentsBlood Kwlkhsjs539/9405/27/2024 10:45 AM EST Fjgxe244005/27/2024 10:45 AM CATYmdbxioaprf49.7 ??C (96.3 ??F)05/27/2024 10:45 AM ESTRespiratory Mdvh754405/27/2024 10:45 AM ESTOxygen Nrccayfsvz20%06/06/2023 4:00 PM EDTInhaled Oxygen Concentration--Qkfaeq33.5 kg (204 lb)05/27/2024 10:45 AM TEWRfnour649.8 cm (5' 10 )08/14/2023 2:31 PM EDTBody Mass Index29.27008/14/2023 2:31 PM EDT Plan of Treatment DateTypeDepartmentCare Team (Latest Contact Info)Nykhmpcbyoy36/03/2026 11:00 AM ESTOffice Visit [facility] [address] [facility] [address] [place] [address] [place] [address] Department of Neurological Surgery [place], [place] [id number] Health MaintenanceDue DateLast DoneCommentsCT Pydajmtymkwl96/21/1963Diabetes: Urine Protein Fjkseopwd08/21/1963FIT-DNA (Cologuard)1962FIT1962HIV Eghovvzgw72/21/1963Lipid Panel1962 4139Mawkxlngsrjtr86/21/1963Yearly Adult Fzvbigdu23/21/1963MMR Vaccines (1 of 1 - Standard series)1963Diabetes: Retinopathy Htvutiwyq44/21/1973Hepatitis C Iaikmjert83/21/1981Pneumococcal Vaccine (1 of 2 - PCV)1981DTaP/Tdap/Td Vaccines (1 - Tdap)1984PSA Prostate Cancer Jexvargnt06/21/2013RSV High Risk: (Elderly (60+) or Population) (1 - Risk 50-74 years 1-dose series)2012Zoster Vaccines (1 of 2)2012COVID-19 Vaccine (2 - Bev risk series)/12/2020 Diabetes: Hemoglobin A1C07/23//2265Pjzejygxffr78/10/202507/12/2014 Colorectal Cancer Rggrxhdvl84/10/2025Influenza Vaccine (#1), 01/06/2015HIB VaccinesAged OutNo longer eligible [...] IdentifierShelf Expiration DateModel / Serial / LotModulus Tlif-[id number] 8 Degree Implanted:Qty: 1 on 06/01/2023 [facility]ageB[facility]: Spine LumbarNUVASIVE [id number] / / [id number]:Per bill only jdr 06/03Moduls Tlif- [id number] 8 Degree Implanted:Qty: 1 on 06/01/2023 by [facility]ageBilateral: Spine LumbarNUVASIVE [id number] / / [id number]:Per bill only jdr 06/03Infuse Bmp Small - [id number] - [id number] Implanted:Qty: 1 on 06/01/2023 by [facility]GraftN/A: Spine LumbarMEDTRONIC INC:SOFAMOR [id number] / [id number] / Screw, Reline Lock, 5.5mm Open Tulip - [id number] Implanted:Qty: 16 on 06/01/2023 by [facility] Interventional ImplantBilateral: Spine LumbarNUVASIVE INC [id number] / / Screw, Reline-O, 7.5x50mm 2s Polyaxial - [id number] Implanted:Qty: 1 on 06/01/2023 by [facility]crewBilateral: Spine LumbarNUVASIVE [id number] / / Reline-O Conn, 5-6/5-6mm O-O Med - [id number] Implanted:Qty: 1 on 06/01/2023 by [facility]crewBilateral: Spine LumbarNUVASIVE [id number] / / Screw, Reline-O, 8.5x50mm 2s Polyaxial - [id number] Implanted:Qty: 1 on 06/01/2023 by [facility]crewBilateral: Spine LumbarNUVASIVE [id number] / / Screw, Reline-O, 8.5x80mm 2s Poly Iliac - [id number] Implanted:Qty: 2 on 06/01/2023 by [facility]crewBilateral: Spine LumbarNUVASIVE [id number] / / Screw, Reline-O, 6.5x45mm 2s Polyaxial - [id number] Implanted:Qty: 5 on 06/01/2023 by [facility]crewBilateral: Spine LumbarNUVASIVE [id number] / / Screw, Reline-O, 7.5x45mm 2s Polyaxial - [id number] Implanted:Qty: 4 on 06/01/2023 by [facility]crewBilateral: Spine LumbarNUVASIVE [id number] / / Unid Exp Ti Franklin 5.5mm 4+ Lv Implanted:Qty: 2 on 06/01/2023 by Jose [facility] Hospitalpinal HardwareN/A: Spine LumbarMEDTRONIC [id number] / [id number] / 20mm Offset Open Implanted:Qty: 1 on 06/01/2023 by [facility] Hospitalpinal HardwareBilateral: Spine LumbarNUVASIVE [id number] / / Description:Per bill only jdr 06/03 Procedures Procedure NamePriorityDate/TimeAssociated DiagnosisCommentsHEMOGLOBIN Z7EPanhuht 04/24/2023 11:24 AM EST Spinal stenosis of lumbar region with neurogenic claudication from Last 3 Months or Most Recently Relevant to Health Maintenance Results * (ABNORMAL) Hemoglobin A1c (04/24/2023 11:24 AM EST)ComponentValueRef RangeTest MethodAnalysis TimePerformed AtPathologist SignatureHemoglobin A1C6.8(H)see below %04/25/2023 12:39 AM [facility] LABEstimated Average Aubyjri723Fqn Established mg/dL04/25/2023 12:39 AM [facility] LABSpecimen (Source)Anatomical Location / LateralityCollection Method / VolumeCollection TimeReceived Time BloodVenous blood specimen / UnknownVenipuncture / Rxihhap9404/24/2023 11:24 AM EST04/24/2023 11:24 AM EST Narrative [facility] - 04/25/2023 12:39 AM EST Diagnosis of Diabetes-Adults Non-Diabetic: < or = 5.6% Increased risk for developing diabetes: 5.7-6.4% Diagnostic of diabetes: > or = 6.5% Monitoring of Diabetes Age (y)....................... Therapeutic Goal (%) Adults: >18.........................<7.0 Pediatrics: 13-18...................<7.5 Pediatrics: 7-12....................<8.0 Pediatrics: 0-6..................... 7.5-8.5 [place] [employer]. Diabetes Care 33(S1), Mar 2009 Authorizing ProviderResult TypeResult StatusJose Roberto Pineda MDLAB BLOOD ORDERABLESFinal ResultPerforming OrganizationAddressCity/State/ZIP CodePhone Number [facility] [address] [facility] [id number] [place] [phone] from Last 3 Months or Most Recently Relevant to Health Maintenance Additional Health Concerns Active ProblemsNoted DateDiagnosed DatePatient has spine ibnrvts7004/24/2023 Advance Directives For more information, please contact: [phone] (Available ) * Full Code (Latest Code Status on File) Date ActivatedDate InactivatedComments06/01/2023 7:32 PMQuestionAnswerCommentsPlan of Care:* Code Status Discussion Completed Decision Maker:* Patient Care Teams Team MemberRelationshipSpecialtyStart DateEnd Date Major Garcia MD [address] [place] [address] [facility] - [facility]/17/23
--- OUTSIDE RECORDS SUMMARY | 2025-02-18 11:17 | XMS_ITS | CCD ---
Author Organization [facility] Care Team Providers Care Laboratory Equipment Cleaner Name Role Phone VALERIE, DR RANDALL Attending [...] Provider MD Major Stevens Primary Care Provider [phone] [employer] DEMON[employer]ATOR Sully Attending Provider MD Abel Sandoval Attending Provider [phone] Abel Sandoval Admitting Unavailable Abel Sandoval Attending [...] Unavailable MAJOR STEVENS Primary Care Unavailabl e ALMADHYANI LAMA Referring Unavailable MAJOR STEVENS Primary Care Unavailabl e Major Stevens MD Primary Care Provider [phone] KASLIWAL, ISHA K Attending Unavailable MAJOR STEVENS [...] Care Unavailabl e MAJOR STEVENS Attending Unavailable IVETTE MONTANO Attending Unavailable KASLIWAL, ISHA Referring Unavailable BRINKBRITNEY Attending Unavailable KASLIWAL, ISHA Referring Unavailable BRINK, BRITNEY Attending Unavailable KASLIWAL, ISHA Referring Unavailable BLACKSTONIVETTE T Attending Unavailable KASLIWAL, ISHA Referring Unavailable BRINK, BRITNEY Attending Unavailable KASLIWAL, ISHA Referring Unavailable BLACKSTON, IVETTE T Attending Unavailable KASLIWAL, ISHA Referring Unavailable BRINK, BRITNEY Attending Unavailable KASLIWAL, ISHA Referring Unavailable BRINK, BRITNEY Attending Unavailable KASLIWAL, ISHA Referring Unavailable IVETTE MONTANO Attending Unavailable KASLIWAL, ISHA Referring Unavailable NADMAJOR BERNARDO Attending Unavailable NADMAJOR BERNARDO Attending Unavailable Major Stevens MD Primary Care Provider Major Stevens MD Attending Provider Tomy MINA Attending Unavailable MAJOR STEVENS Referring Unavailable Major Stevens MD Primary Care Provider [phone] Medications Current Medications MedicationDrug Class(es)DatesSig (Normalized)Sig (Original)acetaminophen 325 mg oral tablet (8 sources)Start: 01-85-3073ylrzdcnqmyrjx (Tylenol) 325 mg tablet Indications: Postoperative pain Take 2 tablets (650 mg) by mouth every 6 hours. Take every 6 hours scheduled while having pain then take only as needed for Mild pain 06/06/2023 ActiveStart: 44-40-1000anle 1 tablet by mouth every six aibby411 mg, oral, Every 6 hours, First dose on Sun06/01/23 at 2000, Phase II/On Unit If ordered PRN for pain, nurse is permitted to administer this medication for higher pain scores based on patient preference? Yes End: 53-00-0155rudj 2 tablets by mouth twice dailyacetaminophen (Tylenol) 500 mg tablet Take 2 tablets (1,000 mg) by mouth 2 times a day. Patient takes #2 tablets 2-3 times a day as needed 0 06/06/2023 Discontinued (Stop Taking at Discharge)atorvastatin 40 mg oral tablet (13 sources)HMG-CoA Reductase InhibitorStart: 17-54-8815bhlg 1 tablet by mouth once daily at bedtimeAtorvastatin 40 mg tablet Active 40 MG PO Daily at bedtime 90 November 27, 2024 12:00am Complies with drug therapyStart: 00-22-2358qtfz 1 tablet by mouth at bedtimeatorvastatin (Lipitor) [...] 10 mg rectal suppository (1 source)Stimulant LaxativeStart: 15-51-2797yufyximhf (Dulcolax) suppository 10 mgchlorhexidine gluconate 40 mg/ml medicated liquid soap (5 sources)Start: 05-17-2023 End: 15-33-8932fejtxqxiglbqh (Hibiclens) 4 % external liquid Indications: Lumbar stenosis with neurogenic claudication , Surgery, elective , Preop testing , Preoperative general physical examination Apply topicallyonce daily as needed for wound care for up to 5 days. 473 mL 0 05/17/2023 05/22/2023 ActiveStart: 05-17-2023 End: 24-97-8070skicsrqvokehf (Peridex) 0.12 % solution Indications: Lumbar stenosis with neurogenic claudication ,Surgery, elective , Preop testing , Preoperative general physical examination Use 15 mL in the mouth or throat if needed for wound care for up to 14 days. 120 mL 0 05/17/2023 06/06/2023 Discontinued (Stop Taking at Discharge)cyclobenzaprine hydrochloride 10 mg oral tablet (9 sources)Muscle RelaxantStart: 73-75-4254hqcu 1 tablet by mouth three times daily as needed for muscle spasmsCyclobenzaprine 10 mg tablet Active 10 MG PO Three times daily as needed for muscle spasm January 13, 2025 12:00am Complies with drug therapyStart: 79-16-1428jskm 1 tablet by mouth three times daily as needed for muscle spasmscyclobenzaprine (Flexeril) 10 MG tablet Indications: Lumbar spondylosis Take 1 tablet (10 mg) by mouth 3 (three) times a day as needed for muscle spasms 30 tablet 2 07/16/2024 ActiveStart: 05-74-2009poni 1 tablet by mouth three times daily as needed for muscle spasmscyclobenzaprine (Flexeril) 10 MG tablet Indications: Lumbar spondylosis Take 1 tablet (10 mg) by mouth 3 (three) times a day as needed for muscle spasms 30 tablet 2 07/16/2024 ActiveStart: 06-01-2023 End: 83-47-4709yyyo 1 tablet by mouth three times daily as needed for muscle spasmscyclobenzaprine (Flexeril) 10 mg tablet Indications: Postoperative pain Take 1 tablet (10 mg) by mouth 3 times a day as needed for muscle spasms for up to 7 days. 21 tablet 06/06/2023 Activedocusate sodium 50 mg / sennosides, retirement 8.6 mg oral tablet (2 sources)Start: 06-01-2023 End: 33-09-5970uxcg 2 tablets by mouth twice dailysennosides-docusate sodium (Marycruz-Colace) 8.6-50 mg tablet Indications: Constipation due to pain medication Take 2 tablets by mouth 2 times a day for 7 days. Take while taking pain medication oxycodone to prevent constipation 28 tablet 0 06/06/2023 06/13/2023 Activeempagliflozin 25 mg oral tablet (20 sources)Sodium-Glucose Cotransporter 2 InhibitorStart: 29-50-0090yqan 1 tablet by mouth once daily in the morningEmpagliflozin 25 mg tablet Active 25 MG PO Every morning January 13, 2025 12:00am Complies with drug therapyfolic acid 1 mg oral tablet (20 sources)Start: 28-51-7451qegv 1 tablet by mouth once daily in the morning Folic Acid 1 mg tablet Active 1 MG PO Every morning January 13, 2025 12:00am Complies with drug therapygabapentin 300 mg oral capsule (16 sources)Anti-epileptic AgentStart: 32-66-6943hopf 1 capsule by mouth every twenty-four hoursGabapentin 300 MG 1 capsule Orally Once a day for 30 days Mar, ActiveStart: 11-12-2018 End: 82-06-2351tfpq 1 tablet by mouth three times dailyGabapentin 300 mg capsule Discontinued 1 TAB PO Three times daily November 12, 2018 12:00am 2024 1:30pmglipiZIDE 10 mg oral tablet (20 sources)SulfonylureaStart: 61-53-2951nfyl 1 tablet by mouth twice daily Glipizide 10 mg tablet Active 10 MG PO Twice daily January 13, 2025 1:30pm Complies with drug therapyStart: 82-29-3886sjnz 1 tablet by mouth twice daily glipiZIDE (Glucotrol) 10 MG tablet Indications: Type 2 diabetes mellitus with hyperglycemia, without long-term current use of insulin (HCC) TAKE 1 TABLET BY MOUTH TWICE DAILY 180 tablet 3 06/09/2024 ActiveStart: 68-95-0722zaml 1 tablet by mouth twice dailyglipiZIDE (Glucotrol) 10 MG tablet Indications: Type 2 diabetes mellitus with hyperglycemia, without long-term current use of insulin ([facility]) TAKE 1 TABLET BY MOUTH TWICE DAILY 180 tablet 3 05/09/2023 Active Start: 11-12-2018 End: 47-45-8712pzdz 1 tablet by mouth once dailyGlipizide 10 mg tablet Discontinued 1 TAB PO Daily November 12, 2018 12:00am January 13, 2025 1:33pm glucagon (rdna) 1 mg injection (2 sources)Antihypoglycemic AgentStart: [...] 5000 unt/ml injection (1 source)Unfractionated Heparin, Anti-coagulantStart: 94-52-8009oykjix 5000 [IU] by subcutaneous injection every eight hours5,000 Units, subcutaneous, Every 8 hours, First dose on Sun06/02/23 at 0000, Phase II/On Unitinsulin lispro 100 unt/ml injectable solution (1 source)Insulin [...] 20 mg oral tablet (20 sources)Antirheumatic AgentStart: 48-33-0065zitr 1 tablet by mouth once dailyleflunomide (Arava) 20 mg tablet Indications: Psoriatic arthritis (Multi) Take 1 tablet (20 mg) by mouth once daily. DO NOT RESUME UNTIL 06/15/2023 Do not start before June 15, 2023. 06/15/2023 ActiveStart: 49-64-8964xubu 1 tablet by mouth once dailyleflunomide (Arava) 20 mg tablet Indications: Psoriatic arthritis (CMS/HCC) Take 1 tablet (20 mg) by mouth once daily. DO NOT RESUME UNTIL 06/15/2023 Do not start before June 15, 2023. 0 06/15/2023 ActiveStart: 11-12-2018 End: 31-02-9360xfja 1 tablet by mouth once dailyLeflunomide 20 mg Tablet Active 1 TAB PO Daily November 12, 2018 12:00am Complies with drug therapylidocaine 0.04 mg/mg medicated patch (2 sources)Antiarrhythmic, Amide Local AnestheticStart: 06-07-2023 End: 53-00-5846rcpxc 1 dose transdermal route every twelve hours [...] or wounds.losartan potassium 25 mg oral tablet (13 sources)Angiotensin 2 Receptor BlockerStart: 93-22-6181owyl 1 tablet by mouth once dailyLosartan 25 mg tablet Active 25 MG PO Daily 22 08November 27, 2024 12:00am Complies with drug therapyStart: 58-58-3974crda 1 tablet by mouth once dailylosartan (Cozaar) 25 MG tablet Indications: Essential hypertension TAKE 1 TABLET(25 MG) BY MOUTH DAILY 90 tablet 3 10/17/2023 ActivemetFORMIN hydrochloride 1000 mg oral tablet (20 sources)BiguanideStart: 10-84-1643aney 1 tablet by mouth twice daily Metformin 1,000 mg tablet Active 1000 MG PO Twice daily January 13, 2025 1:31pm Complies with drug therapyStart: 77-39-3789jbry 1 tablet by mouth twice dailymetFORMIN (Glucophage) 1000 MG tablet Indications: Essential hypertension TAKE 1 TABLET BY MOUTH TWICE DAILY 180 tablet 3 06/09/2024 ActiveStart: 01-15-3896qesi 1 tablet by mouth twice dailymetFORMIN (Glucophage) 1000 MG tablet Indications: Essential hypertension (CMS/HCC) TAKE 1 TABLET BY MOUTH TWICE DAILY 180 tablet 3 05/09/2023 ActiveStart: 11-12-2018 End: 63-95-0991jtdd 1 tablet by mouth once dailyMetformin 1,000 mg tablet Discontinued 1 TAB PO Daily November 12, 2018 12:00am January 13, 2025 1:33pm methotrexate 2.5 mg oral tablet (20 sources)Folate Analog Metabolic InhibitorStart: 81-80-6225nbqk 3 tablets by mouth every weekMethotrexate Sodium 2.5 mg tablet Active 7.5 MG PO Once a week January 13, 2025 1:32pm Complies with drug therapyStart: 25-75-4127xfpo 3 tablets by mouth every weekmethotrexate (Trexall) 2.5 mg tablet Indications: Psoriatic arthritis (Multi) Take 3 tablets (7.5 mg total) by mouth 1 (one) time per week. Follow directions carefully, and ask to explain any part you do not understand. Take exactly as directed. Takes on Sunday. DO NOT RESUME UNTIL 06/15/2023 06/15/2023 ActiveStart: 91-69-3672qfxo 3 tablets by mouth every week methotrexate (Trexall) 2.5 mg tablet Indications: Psoriatic arthritis (CMS/HCC) Take 3 tablets (7.5mg total) by mouth 1 (one) time per week. Follow directions carefully, and ask to explain any part you do not understand. Take exactly as directed. Takes on Sunday. DO NOT RESUME UNTIL 06/15/2023 0 06/15/2023 Active Start: 11-12-2018 End: 48-78-6850grhi 1 tablet by mouth once dailyMethotrexate Sodium 2.5 mg tablet Discontinued 2.5 MG PO Daily May 22, 2019 1:00am January 13, 2025 1:33pmStart: 11-12-2018 End: 28-38-4844rkte 3 tablets by mouth once dailyMethotrexate Sodium 2.5 mg tablet Discontinued 3 TAB PO Daily November 12, 2018 12:00am May 22, 2019 12:53pm End: 98-39-4547sqew 3 tablets by mouth every weekmethotrexate 2.5 [...] Sun06/01/23 at 1932, Phase II/On Unit HOLD ANIMATION DIRECTOR Infusion and notify H.O. immediatelyStart: .2 mg, intravenous, Every 5 min PRN, respiratory depression, Starting on Sun06/01/23 at 1932, PhaseII/On Unit If respiratory rate is less than 8 breaths/minute or patient is difficult to arouse stopany narcotics and contact physician. Administer slow IV push. Repeat as ordered until patient's respiratory rate is greater than 12 breaths/minute. Ondansetron (1 source)Serotonin-3 Receptor AntagonistStart: 11-44-5332rnki 1 tablet by mouth every eight hours as neededondansetron (Zofran) tablet 4 mgoxygen (O2) therapy (2 sources)Start: 09-07-1989gnjijzbehj, Continuous PRN - O2/gases, other, Starting on Sun06/01/23 at 1932, Phase II/On Unit Titrate supplemental oxygen to maintain SpO2 greater than or equal to 92 Device: Nasal Cannula Rate in liters per minute: 2 LPM Keep O2 Sat Above: 92%Start: 06-01-2023 End: 82-18-7462lgulax (O2) therapypioglitazone 45 mg oral tablet (20 sources)Peroxisome Proliferator Receptor alpha Agonist, Peroxisome Proliferator Receptor gamma Agonist, ThiazolidinedioneStart: 29-43-0471nslj 1 tablet by mouth once daily in the morningPioglitazone 45 mg tablet Active 45 MG PO Every morning January 13, 2025 12:00am Complies with drug therapyStart: 80-85-1056mmpy 1 tablet by mouth in the morningpioglitazone (Actos) 45 MG tablet Indications: Type 2 diabetes mellitus with hyperglycemia, withoutlong-term current use of insulin ([facility]) TAKE 1 TABLET(45 MG) BY MOUTH IN THE MORNING 90 tablet 3 08/04/2024 ActiveStart: 01-13-1639gilf 1 tablet by mouth in the morning pioglitazone (Actos) 45 MG tablet Indications: Type 2 diabetes mellitus with hyperglycemia, withoutlong-term current use of insulin ([facility]/HCC) TAKE 1 TABLET(45 MG) BY MOUTH IN THE MORNING 90 tablet ActiveStart: 11-12-2018 End: 64-97-7422habi 1 tablet by mouth once dailyPioglitazone 30 mg tablet Discontinued 1 TAB PO Daily November 12, 2018 12:00am January 13, 2025 1:32pm polyethylene glycol 3350 54733 mg powder for oral solution (2 sources)Osmotic LaxativeStart: 06-01-2023 End: 59-28-7164xcxfqykcuody glycol (Glycolax, Miralax) packet 17 gpredniSONE 50 mg oral tablet (3 sources)Start: 07-16-2024 End: 57-54-7282aqft 1 tablet by mouth once dailypredniSONE (Deltasone) 50 MG tablet Indications: Lumbar spondylosis Take 1 tablet (50 mg) by mouth Daily for 6 days 6 tablet 07/16/2024 07/22/2024 ActivePromethazine (1 source)PhenothiazineStart: 52-13-6557pooq 1 tablet by mouth every six hours as neededpromethazine (Phenergan) tablet 25 fm3025 ml sodium chloride 9 mg/ml injection (1 source)Start: 54-42-4250yvtb 100 mL intravenously every ztro783 mL/hr, intravenous, Continuous, Starting on Sun06/01/23 at 2000, Phase II/On Unit Convert IV to saline lock when taking oral fluids.triamcinolone acetonide 5 mg/ml topical cream (20 sources)CorticosteroidStart: 56-34-8804Iiyehyhkgsueb Acetonide 0.5 % cream Active 1 APPLIC TOPICAL Three times daily January 13, 2025 12:00am Complies with drug therapyStart: 69-18-7920vhvnzuvoulilm (Kenalog) 0.5 % cream Indications: Flexural psoriasis Apply topically 3 (three) timesa day 60 g 3 04/16/2023 ActiveStart: 97-78-1764Reunmsg -40 mg 08 Nov, 2019 40 mgVitamin D3 (7 sources)Vitamin D3 Active Completed/Discontinued Medications MedicationDrug Class(es)DatesSig (Normalized)Sig (Original)calcium chloride 0.0014 meq/ml / potassium chloride 0.004 meq/ml / sodium chloride 0.103 meq/ml / sodium lactate 0.028 meq/ml injectable solution (1 source)Start: 06-01-2023 End: 07-32-0178svudnyru Ringer's infusioncholecalciferol 0.025 mg oral capsule (3 sources)Vitamin DStart: 11-12-2018 End: 92-24-8017anot 1 tablet by mouth once dailyCholecalciferol (Vitamin D3) (Vitamin D3) 1,000 unit Capsule Discontinued 1 TAB PO Daily November 12, 2018 12:00am January 13, 2025 1:30pm1 ml HYDROmorphone hydrochloride 1 mg/ml cartridge (1 source)Opioid AgonistStart: 06-01-2023 End: 73-17-7387CGCUDswinddjf (Dilaudid) injection 0.5 mghydromorphone ANIMATION DIRECTOR 0.5 mg/mL in NS opioid naive (1 source)Start: 06-01-2023 End: 01-58-5460Qzfvf Loading Dose: Not Ordered Patient Bolus Dose: 0.2 mg Lockout Interval: 10 Minutes Basal Rate:0 mg/hr One Hour Dose Limit: 1.2 mg intravenous, Continuous, Starting on Sun06/01/23 at 2000, Phase II/On Unit ibuprofen 800 mg oral tablet (10 sources)Nonsteroidal Anti-inflammatory DrugStart: 11-12-2018 End: 15-60-9272bnpe 1 tablet by mouth three times dailyIbuprofen 800 mg tablet Discontinued 1 TAB PO Three times daily November 12, 2018 12:00am January 14, 2025 9:36am1 ml ketorolac tromethamine 30 mg/ml injection (1 source)Nonsteroidal Anti-inflammatory Drug, Cyclooxygenase InhibitorStart: 06-02-2023 End: 91-27-653877 mg, intravenous, Every 8 hours scheduled, First dose on Sun06/02/23 at 0600, For 3 days Do not administer within 6 hours of other NSAIDs (such as ibuprofen or naproxen).oxyCODONE hydrochloride 5 mg oral tablet (3 sources)Opioid AgonistStart: 06-02-2023 End: 33-45-4760xhbn 1 tablet by mouth every four hours as neededoxyCODONE (Roxicodone) immediate release tablet 10 mgStart: 06-02-2023 End: 68-63-0607ntbw 1 tablet by mouth every six hours [...] release oral tablet (3 sources)Start: 06-06-2023 End: 69-94-4085tgegcbhka chloride CR (Klor-Con M20) ER tablet 40 mEqStart: 06-02-2023 End: 21-42-9046bxjeqbhgy chloride CR (Klor-Con M20) ER tablet 40 mEqStart: 06-01-2023 End: 49-81-1640idfdvnqgs chloride 20 mEq in 100 mL IV premixtiZANidine 4 mg oral tablet (10 sources)Central alpha-2 Adrenergic AgonistStart: 11-12-2018 End: 40-88-2848kmgc 1 tablet by mouth once daily at bedtimeTizanidine 4 mg tablet Discontinued 4 MG PO Daily at bedtime November 12, 2018 12:00am February 07, 2023 9:47amtake 1 tablet by mouth every eight hourstiZANidine HCl 4 MG 1 tablet as needed Orally Three times a day Not-Taking/PRN Problems Active Problems Problem ClassificationProblemDateDocumented DateEpisodic/ChronicDiabetes mellitus with complications (20 sources)Type 2 diabetes mellitus with hyperglycemia; 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: [Diabetic - poor control]Onset: 70-31-6597GvvisldQlnksrlz mellitus without complication (7 sources)Type 2 diabetes mellitus; 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: [Type 2 diabetes mellitus without complications]ChronicEssential hypertension (20 sources)Essential hypertension; 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: [Essential (primary) hypertension]Onset: 213854-34-5601DjarrmoBgpcl acquired deformities (3 sources)Scoliosis of lumbar spine; 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: [Other forms of scoliosis, lumbar region]10-59-9879FlwkzmaAktux acquired deformities (1 source)Other forms of scoliosis, lumbar regionChronicOther acquired deformities (10 sources)Acquired deformity of spine; 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: [Other specified deforming dorsopathies, site unspecified]Onset: 931995-69-6663DospwhwXtsns acquired deformities (16 sources)Other secondary scoliosis, thoracolumbar region; 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: [Scoliosis associated with other conditions]Onset: 017972-82-5923Nydsmrk Other acquired deformities (2 sources)Other specified deforming dorsopathies, site unspecified; 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: [Other specified deforming dorsopathies, site unspecified]Onset: 56-45-3544GmnfimbIvspq aftercare (1 source)Other terminal clerk (current) drug therapy; 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: [[facility] CURRENT DRUG [facility]ERAPY]Onset: 50-91-3649HepctxbcEyyly aftercare (1 source)Surgical follow-up; 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: [Encounter for follow-up examination after completed treatment for conditions other than malignant neoplasm] 77-09-6763IshoiwkxWtqzn bone disease and musculoskeletal deformities (7 sources)Other specified disorders of bone, other site; 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: [Iliac crest bone pain]EpisodicOther bone disease and musculoskeletal deformities (9 sources)Bone pain; 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: [Other specified disorders of bone, other site]Onset: 607364-66-1370IykuuracDipqa connective tissue disease (2 sources)History of lumbar fusion; 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: [Arthrodesis status] 77-83-2103DjwrkzfaIiqjx connective tissue disease (2 sources)Arthrodesis status; 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: [Arthrodesis status]Onset: 69-67-8342WuxnkhgbOsyzu connective tissue disease (1 source)Pain in buttock; 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: [Myalgia, other site]59-07-9754Ujuygzxq Other gastrointestinal disorders (1 source)Drug-induced constipation; 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: [Drug induced constipation] 29-06-8135GonuetugBhocf inflammatory condition of skin (4 sources)Other psoriatic arthropathy; 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: [OTHER PSORIATIC ARTHROPATHY]Onset: 54-25-8762TtuijvtJjlih inflammatory condition of skin (20 sources)Psoriatic arthritis; 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: [Arthropathic psoriasis, unspecified]Onset: 554409-35-5068YxsrmrpJyuow inflammatory condition of skin (20 sources)Flexural psoriasis; 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]Onset: 04-16-2023 75-35-0013XuxnjrlLcplc inflammatory condition of skin (8 sources)Psoriasis; 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: [Psoriasis, unspecified]Onset: 04-30-2023 24-07-2468KzcebyuPkpuw inflammatory condition of skin (2 sources)Arthropathic psoriasis, unspecified; 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: [Arthropathic psoriasis, unspecified (Multi)]Onset: 42-14-1995RbguwtpHhtit nervous system disorders (16 sources)Chronic pain; 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: [Other chronic pain]Onset: 04-30-2023 83-39-0199WxsloplGzyqj nervous system disorders (2 sources)Other chronic painChronicOther nervous system disorders (1 source)Other chronic pain; 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: [Other chronic pain]Onset: 65-23-1011OcvqjxpXqnpt nervous system disorders (1 source)Postoperative pain ; 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: [Other acute postprocedural pain] 20-49-9521ZlwssdmuGgsza non-traumatic joint disorders (3 sources)Hip pain; 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: [Pain in right hip]Onset: 10-16-2022 15-43-2119KgxkebnmVntaf nutritional; endocrine; and metabolic disorders (7 sources)Cholesterol level - finding; 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: [Lipoprotein deficiency] ChronicOther nutritional; endocrine; and metabolic disorders (8 sources)Lipoprotein deficiency disorder; 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: [Lipoprotein deficiency]Onset: 299428-21-7187YfplwpaBsmwl nutritional; endocrine; and metabolic disorders (14 sources)Body mass index 30+ - obesity; 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: [Obesity, unspecified] Onset: 669468-36-2171CvsvabxAchnf nutritional; endocrine; and metabolic disorders (1 source)Obesity; 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: [Obesity, unspecified]61-48-5893TuqrbiqAjzxpmri codes; unclassified (2 sources)Other specified postprocedural states; 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: [Other specified postprocedural states]Onset: 40-91-6458SjizvgnvMrykyklaukw; intervertebral disc disorders; other back problems (20 sources)Lumbosacral spondylosis; 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: [Spondylosis without myelopathy or radiculopathy, lumbosacral region]Onset: 30-20-8844Voredcc Spondylosis; intervertebral disc disorders; other back problems (20 sources)Lumbar radiculopathy; 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: [Radiculopathy, lumbar region] Onset: 99-31-9518WyztfzdfSlqoihrwoosc (1 source)Pain in right hip; 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: [Pain in right hip]Onset: 10-16-2022 Unclassified (9 sources)Patient has spine surgeryOnset: [id number] Past or Other Problems Problem ClassificationProblemDateDocumented DateEpisodic/ChronicCancer of prostate (8 sources)Malignant tumor of prostate; 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: [Malignant neoplasm of prostate]Onset: 09-15-2021 Resolved: 244463-82-8776UdgxgbmEhgjf aftercare (20 sources)Long-term current use of drug therapy; 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: [Other terminal clerk (current) drug therapy]Onset: 945250-26-7950ZjimbnqcRfeeg aftercare (2 sources)Encounter for follow-up examination after completed treatment for conditions other than malignant neoplasm; 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: [Encounter for follow-up examination after completed treatment for conditionsother than malignant neoplasm]Onset: 78-77-8931OztzejgtMbrzk connective tissue disease (15 sources)Muscle pain; 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: [Myalgia, other site]Onset: 04-30-2023 93-00-2938EwsduimyXwcum connective tissue disease (8 sources)Pain in left lower limb; 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: [Pain in left leg]Onset: 434270-22-6982RlmnbvenVvqir gastrointestinal disorders (2 sources)Drug induced constipation; 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: [Drug induced constipation] Onset: 00-80-5130DbsfuowzCwoio nervous system disorders (2 sources)Other acute postprocedural pain; 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: [Other acute postprocedural pain]Onset: 49-10-6990LkghxojjBajmd non-traumatic joint disorders (20 sources)Pain in right hip joint; 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: [Pain in right hip]Onset: 239436-54-1779HcfibyokUcvjc screening for suspected conditions (not mental disorders or infectious disease) (15 sources)Encounter for screening for malignant neoplasm of prostate; 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: [Patient encounter status]Onset: 728356-20-8758Fzvywkpn Residual codes; unclassified (3 sources)Patient encounter status; 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: [Encounter for procedure for purposes other than remedying health state, unspecified]Onset: 10-17-2023 74-54-2942ZxwvaiffZyquyhss codes; unclassified (10 sources)H/O Spinal surgery; 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: [Other specified postprocedural states]Onset: 181204-45-8771PdxpyfduTpjzwldz codes; unclassified (2 sources)Encounter for procedure for purposes other than remedying health state, unspecified; 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: [Encounter for procedure for purposes other than remedying health state, unspecified]Onset: 37-63-3067WzecqtfrJriaisnriomp (2 sources)Onset: [id number] Results Test NameValueInterpretationReference RangeFacilityALL CBC WITH AUTO DIFFon 04-72-4435FVJYVBMKY ABSOLUTE ZFEL4KJLM HealthcareBasophils/100 WBC (Bld)0.6 %0.2 - 2.0 %[facility]OMS HealthcareEosinophils/100 WBC (Bld)2.6 %0.9 - 7.0 %[facility] Erythrocyte distribution width (RBC) [Ratio]14.6 %11.0 - 15.0 %[facility] Hematocrit (Bld) [Volume fraction]44.2 %42.0 - 54.0 %[facility] CenterHemoglobin (Bld) [Mass/Vol]14.5 g/dL14.0 - 18.0 g/dLUniversity Health Truman Medical CenterIMMATURE GRANULOCYTES ABS AUTO0.01NOMS HealthcareImmature granulocytes/100 WBC (Bld)0.2 %0.0 - 0.5 % [facility] CenterLYMPHOCYTES ABSOLUTE AUTO1.3NOMS HealthcareLymphocytes/100 WBC (Bld)25.5 %20.5 - 60.0 %[facility] CenterMCH (RBC) [Entitic mass]28.8 pg25.9 - 34.0 pgNOLee's Summit HospitalMCHC (RBC) [Mass/Vol]32.8 g/dL29.9 - 35.2 g/dLUniversity Health Truman Medical CenterMCV (RBC) [Entitic vol]87.9 fL80.0 - 94.0 fLNOLee's Summit HospitalMONOCYTES ABSOLUTE AUTO0.5NOGA HealthcareMonocytes/100 WBC (Bld)10.8 %1.7 - 12.0 %NOMMissouri Southern HealthcareNEUTROPHILS ABSOLUTE QKHW1WQYW HealthcareNeutrophils/100 WBC (Bld)60.3 %43.0 - 75.0 %[facility] Medical CenterPlatelet mean volume (Bld) [Entitic vol]10.7 fL9.5 - 13.5 fLNOLee's Summit HospitalTBH EO #0.1NOMS HealthcareTB IQG580MOMY [facility] HospitalTB RBC5.03NOMS [facility] HospitalTB IOW5TBKS HealthcareCLINISYNCNOMS HealthcareMLR HEMOGLOBIN A1Con 06-90-1335Xbxyiyv [Mass/Vol]137 mg/dLNOGA UenyjqscnbLcD9n (Bld) [Mass fraction]6.4 %High4.5 - 6.2 %[facility] HealthcareComment on above:ADA RECOMMENDED LIMIT 4.0 - 6.0 ADA THERAPEUTIC TARGET < 7.0 ACTION SUGGESTED > 7.0 Interpretation and review of laboratory resultsAbnormalNOGA HealthcareCLINISYNC NOM HealthcareALL CBC WITH AUTO DIFFon 92-15-1613NXZOJRZMP ABSOLUTE KEQC8LTNZ HealthcareBasophils/100 WBC (Bld)0.7 %0.2 - 2.0 %[facility] HealthcareEosinophils/100 WBC (Bld)2.3 %0.9 - 7.0 %[facility] HealthcareErythrocyte distribution width (RBC) [Ratio]14.9 %11.0 - 15.0 %NOM HealthcareHematocrit (Bld) [Volume fraction]42.2 %42.0 - 54.0 %[facility] CenterHemoglobin (Bld) [Mass/Vol]13.7 g/dLLow14.0 - 18.0 g/dLUniversity Health Truman Medical CenterIMMATURE GRANULOCYTES ABS AUTO0.01NOLee's Summit HospitalImmature granulocytes/100 WBC (Bld)0.2 %0.0 - 0.5 %[facility] HealthcareInterpretation and review of laboratory resultsAbnormalUniversity Health Truman Medical CenterLYMPHOCYTES ABSOLUTE AUTO1.8 NOMMissouri Southern HealthcareLymphocytes/100 WBC (Bld)30.4 %20.5 - 60.0 %[facility] HospitalH (RBC) [Entitic mass]28.7 pg25.9 - 34.0 pgEastern Missouri State HospitalHC (RBC) [Mass/Vol] 32.5 g/dL29.9 - 35.2 g/dLUniversity Health Truman Medical CenterMCV (RBC) [Entitic vol]88.3 fL80.0 - 94.0 fLUniversity Health Truman Medical CenterMONOCYTES ABSOLUTE AUTO0.5NOLee's Summit HospitalMonocytes/100 WBC (Bld)8.2 %1.7 - 12.0 %NOM HealthcareNEUTROPHILS ABSOLUTE AUTO3.5NOLee's Summit Hospital Neutrophils/100 WBC (Bld)58.2 %43.0 - 75.0 %[facility] Medical CenterPlatelet mean volume (Bld) [Entitic vol]10.7 fL9.5 - 13.5 fLNOLee's Summit HospitalTBH EO #0.1NRipley [facility] NSE076ADLUProgress West Hospital RBC4.78NOProgress West Hospital EEW1YNVFLee's Summit Hospital CLINISYNCUniversity Health Truman Medical CenterXR SCOLIOSIS SERIES 2 TO 3 VIEWSon 94-08-9106Rauppc do both AP and lateral views. ( Total of 2 views ) Please have the patient standing without assistance of any kind and with knees in neutral position. The patient should stand relaxed, bend their elbows, and place their fists on the ipsilateral clavicles. Source Facility: [facility] Interpreted By: Austen Bass, STUDY: XR FULL SPINE 2 VIEW SCOLIOSIS; ; 05/27/2024 10:44 am INDICATION: Signs/Symptoms:Lumbar Stenosis for assesment of alignment. 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 ( Total of 2 views ) Please have the patient standing without assistance of any kind and with knees in neutral position. The patient should stand relaxed, bend their elbows, and place their fists on the ipsilateral clavicles. Source Facility: [facility] Interpreted By: Austen Bass, STUDY: XR FULL SPINE 2 VIEW SCOLIOSIS; ; 05/27/2024 10:44 am INDICATION: Signs/Symptoms:Lumbar Stenosis for assesment of alignment. 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, thoracolumbar region COMPARISON: 08/14/2023 ACCESSION NUMBER(S): [id number] ORDERING CLINICIAN: ISHA VALENTINO FINDINGS: Two views [...] Austen Bass 05/28/2024 3:45 PM Dictation workstation: [id number] [facility] CenterXR SCOLIOSIS SERIES 2 TO 3 VIEWSOrdered By: Radiologist Radiology on 62-43-0968GBTSUniversity Health Truman Medical Center Work Phone: XR FULL SPINE 2 VIEW SCOLIOSISon 81-09-9981NF FULL SPINE 2 VIEW SCOLIOSISInterpreted By: Austen Bass, STUDY: XR FULL SPINE 2 VIEW SCOLIOSIS; ; 05/27/2024 10:44 am INDICATION: Signs/Symptoms:Lumbar Stenosis for assesment of alignment. 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 ( Total of 2 views ) Please have the patient standing without assistance of any kind and with knees in neutral position. The patient should stand relaxed, bend their elbows, and place their fists on the ipsilateral clavicles.XR SCOLIOSIS SERIES 2 TO 3 VIEWSon 52-89-7830Kapwryhql Study observation (narrative)[facility] CBC WITH AUTO DIFFon 38-07-6738LGRJBDGIT ABSOLUTE AUTO0.1NOMS HealthcareBasophils/100 WBC (Bld)0.7 %0.2 - 2.0 %NOMMissouri Southern HealthcareEosinophils/100 WBC (Bld)1.7 %0.9 - 7.0 %[facility] Medical CenterErythrocyte distribution width (RBC) [Ratio]15.8 %High11.0 - 15.0 %NOMMissouri Southern HealthcareHematocrit (Bld) [Volume fraction] 40.9 %Low42.0 - 54.0 %[facility] CenterHemoglobin (Bld) [Mass/Vol]13.1 g/dLLow14.0 - 18.0 g/dLUniversity Health Truman Medical CenterIMMATURE GRANULOCYTES ABS AUTO0.01NOMS [facility] Immature granulocytes/100 WBC (Bld)0.1 %0.0 - 0.5 %[facility] CenterInterpretation and review of laboratory resultsAbnormalNOLee's Summit HospitalLYMPHOCYTES ABSOLUTE AUTO1.7NOMS [facility] HospitalLymphocytes/100 WBC (Bld)23.1 %20.5 - 60.0 %[facility] HospitalH (RBC) [Entitic mass]28.4 pg25.9 - 34.0 pgEastern Missouri State HospitalHC (RBC) [Mass/Vol]32 g/dL29.9 - 35.2 g/dLEastern Missouri State HospitalV (RBC) [Entitic vol]88.7 fL 80.0 - 94.0 fLUniversity Health Truman Medical CenterMONOCYTES ABSOLUTE AUTO0.6NOMS [facility] Monocytes/100 WBC (Bld)8.8 %1.7 - 12.0 %NOMMissouri Southern HealthcareNEUTROPHILS ABSOLUTE AUTO 4.7NOMS [facility] HospitalNeutrophils/100 WBC (Bld)65.6 %43.0 - 75.0 %[facility] Platelet mean volume (Bld) [Entitic vol]10.5 fL9.5 - 13.5 fLNOLee's Summit HospitalTB EO #0.1NOMS [facility] HospitalTB EIP951LNRC [facility] RBC4.61LowNOMS [facility] WBC7.2NOMS HealthcareCLINISYNCNGRADY MEMORIAL [facility] HealthcareALL SED RATEon 25-82-3246RHB SED ARDV38FMAIHNGA [facility] HospitalCLINISYNFormerly [facility] CenterCCF CMP (CMP) (FOR REMOTE [facility] USE)on 20-51-8336Psjfzmq [Mass/Vol]3.8 g/dL3.4 - 5.0 g/dLNOGA HealthcareALBUMIN GLOBULIN YOFTM0BBGU HealthcareALP [Catalytic activity/Vol]99 U/L46 - 116 U/LNOMS HealthcareALT [Catalytic activity/Vol]33 U/L16 - 63 U/LNOMS HealthcareAnion gap [Moles/Vol]12.2 mmol/LNOMS HealthcareAST [Catalytic activity/Vol]23 U/L15 - 37 U/LNOMS HealthcareBilirubin [Mass/Vol]0.3 mg/dL0.2 - 1.0 mg/dLNOGA Healthcare Calcium [Mass/Vol]9.1 mg/dL8.5 - 10.1 mg/dLNOGA HealthcareChloride [Moles/Vol] 106 mmol/L98 - 107 mmol/LNOMS HealthcareCO2 [Moles/Vol]26.4 mmol/L21.0 - 32.0 mmol/LNOMS HealthcareCreatinine [Mass/Vol]0.92 mg/dL0.70 - 1.30 mg/dLNOGA HealthcareGFR/1.73 sq M.predicted CKD-EPI (S/P/Bld) [Vol rate/Area]>60>=60 mL/min/1.73m 2NOMS HealthcareGlobulin (S) [Mass/Vol]3.7 g/dLNOGA Healthcare Glucose [Mass/Vol]85 mg/dL74 - 106 mg/dLNOGA HealthcarePotassium [Moles/Vol]3.6 mmol/L3.5 - 5.1 mmol/LNOMS HealthcareProtein [Mass/Vol]7.5 g/dL6.4 - 8.2 g/dL NOM HealthcareSodium [Moles/Vol]141 mmol/L136 - 145 mmol/LNOMS HealthcareTBH EGFR-NON AF CAMBODIAN>60>=60 mL/min/1.73m 2NOMS HealthcareUrea nitrogen [Mass/Vol]11 mg/dL7.0 - 18.0 mg/dLNOGA HealthcareUrea nitrogen/Creatinine [Mass ratio]12 mg/mgNOGA HealthcareCLINISYNCNGRADY MEMORIAL [facility]HA HealthcareALL CBC WITH AUTO DIFFon 26-49-9756IUKTMWQNW ABSOLUTE AUTO0.1NOMS HealthcareBasophils/100 WBC (Bld)0.7 % 0.2 - 2.0 %NOMS HealthcareEosinophils/100 WBC (Bld)2.8 %0.9 - 7.0 %[facility] Medical CenterErythrocyte distribution width (RBC) [Ratio]16.7 %High11.0 - 15.0 % [facility] CenterHematocrit (Bld) [Volume fraction]39.3 %Low42.0 - 54.0 %[facility] CenterHemoglobin (Bld) [Mass/Vol]12.7 g/dLLow14.0 - 18.0 g/dLUniversity Health Truman Medical Center IMMATURE GRANULOCYTES ABS AUTO0.01NOLee's Summit HospitalImmature granulocytes/100 WBC (Bld)0.1 %0.0 - 0.5 %[facility] CenterInterpretation and review of laboratory resultsAbnormalUniversity Health Truman Medical CenterLYMPHOCYTES ABSOLUTE AUTO2.1NOMS [facility] Lymphocytes/100 WBC (Bld)31.3 %20.5 - 60.0 %[facility] HospitalH (RBC) [Entitic mass]27.3 pg25.9 - 34.0 pgEastern Missouri State HospitalHC (RBC) [Mass/Vol]32.3 g/dL29.9 - 35.2 g/dLEastern Missouri State HospitalV (RBC) [Entitic vol]84.3 fL80.0 - 94.0 fLUniversity Health Truman Medical CenterMONOCYTES ABSOLUTE AUTO0.8NOMS [facility] HospitalMonocytes/100 WBC (Bld)11.7 % 1.7 - 12.0 %[facility] CenterNEUTROPHILS ABSOLUTE AUTO3.6NOMS [facility] Neutrophils/100 WBC (Bld)53.4 %43.0 - 75.0 %[facility] CenterPlatelet mean volume (Bld) [Entitic vol]10.2 fL9.5 - 13.5 fLUniversity Health Truman Medical CenterTB EO #0.2NOMS [facility] TBH [id number] West Hospital RBC4.66LowNOMS [facility] WBC6.7NOMS [facility] CLINISYNCUniversity Health Truman Medical CenterX-ray scoliosis complete including supine and erecton 29-60-6671Zytxnp do both AP and lateral views. ( [...] assesment of alignment. COMPARISON: 07/10/2023 ACCESSION NUMBER(S): [id number] ORDERING CLINICIAN: ISHA VALENTINO FINDINGS: There is [...] is intact without perihardware fractures or lucencies. Nnsm-yb-jqobdoqo spondylosis noted at T12-L1 and L1-2. Chronic appearing compression deformity is noted of T12 vertebral body with mild anterior height loss. There is positive sagittal balance. No significant coronal balance. IMPRESSION: Postsurgical changes as described above without hardware complication. Mild S shaped thoracolumbar scoliosis. Positive sagittal balance MACRO: None. Signed by: Carmenza Garcia 08/16/2023 5:16 PM Dictation workstation: [id number], Radiologist, - 08/16/2023 Please do both AP and [...] assesment of alignment. COMPARISON: 07/10/2023 ACCESSION NUMBER(S): [id number] ORDERING CLINICIAN: ISHA VALENTINO FINDINGS: There is [...] is intact without perihardware fractures or lucencies. Mhdw-im-etsjsugo spondylosis noted at T12-L1 and L1-2. Chronic appearing compression deformity is noted of T12 vertebral body with mild anterior height loss. There is positive sagittal balance. No significant coronal balance. IMPRESSION: Postsurgical changes as described above without hardware complication. Mild S shaped thoracolumbar scoliosis. Positive sagittal balance MACRO: None. Signed by: Carmenza Garcia 08/16/2023 5:16 PM Dictation workstation: [id number] [facility] CenterX-ray scoliosis complete including supine and erectOrdered By: Radiologist Radiology on 75-66-0323[facility] [employer] Work Phone: X-ray scoliosis complete including supine and erecton 18-19-8108Bvtcdespn Study observation (narrative)[facility] CenterXR SCOLIOSIS 2 VIEW (NON EOS)on 73-45-0031GA SCOLIOSIS 2 VIEW (NON EOS)Interpreted By: Carmenza Garcia, STUDY: XR SCOLIOSIS 2 VIEW (NON EOS) INDICATION: Signs/Symptoms:Lumbar Stenosis for assesment of alignment. COMPARISON: 07/10/2023 ACCESSION NUMBER(S): [id number] ORDERING CLINICIAN: ISHA VALENTINO FINDINGS: There is [...] is intact without perihardware fractures or lucencies. Nxuh-gz-yacmczcl spondylosis noted at T12-L1 and L1-2. Chronic appearing compression deformity is noted of T12 vertebral body with mild anterior height loss. There is positive sagittal balance. No significant coronal balance. IMPRESSION: Postsurgical changes as described above without hardware complication. Mild S shaped thoracolumbar scoliosis. Positive sagittal balance MACRO: None. Signed by: Carmenza Garcia 08/16/2023 5:16 PM Dictation workstation: [id number] Clinic Union HospitalComment on above:Order Comment: Please do both AP and lateral views. ( Total of 2 views ) Please have the patient standing without assistance of any kind and with knees in neutral position. The patient should stand relaxed, bend their elbows, and place their fists on the ipsilateral clavicles.X-ray scoliosis complete including supine and erecton 29-69-4397Tlpcxa do both AP and lateral views. ( [...] INDICATION: Signs/Symptoms:post op. COMPARISON: 04/24/2023 ACCESSION NUMBER(S): [id number] ORDERING CLINICIAN: ISHA VALENTINO FINDINGS: Two views [...] Austen Bass 07/11/2023 3:27 PM Dictation workstation: [id number], Radiologist, MD - 07/11/2023 Please do both [...] INDICATION: Signs/Symptoms:post op. COMPARISON: 04/24/2023 ACCESSION NUMBER(S): [id number] ORDERING CLINICIAN: ISHA VALENTINO FINDINGS: Two views [...] Austen Bass 07/11/2023 3:27 PM Dictation workstation: [id number] [facility] HealthcareX-ray scoliosis complete including supine and erectOrdered By: Radiologist Radiology on 34-90-3482[facility] [employer] Work Phone: X-ray scoliosis complete including supine and erecton 06-58-9936Gjxezpkqw Study observation (narrative)NOMS HealthcareXR SCOLIOSIS 2 VIEW (NON EOS)on 72-66-6589CO SCOLIOSIS 2 VIEW (NON EOS)Interpreted By: Austen Bass, STUDY: XR SCOLIOSIS 2 VIEW (NON EOS); ; 07/10/2023 11:36 am INDICATION: Signs/Symptoms:post op. COMPARISON: 04/24/2023 ACCESSION NUMBER(S): [id number] ORDERING CLINICIAN: ISHA VALENTINO FINDINGS: Two views [...] Austen Bass 07/11/2023 3:27 PM Dictation workstation: [id number] Clinic Union HospitalComment on above:Order Comment: Please do both AP and lateral views. ( Total of 2 views ) Please have the patient standing without assistance of any kind and with knees in neutral position. The patient should stand relaxed, bend their elbows, and place their fists on the ipsilateral clavicles.CBC panel Auto (Bld)on 32-32-5736Wxjksivswpp distribution width (RBC) [Ratio]13.5 %11.5 - 14.5 %[facility] HospitalHematocrit (Bld) [Volume fraction]33.1 %Low 41.0 - 52.0 %[facility] HospitalHemoglobin (Bld) [Mass/Vol]11.0 g/dLLow13.5 - 17.5 g/dLUnMercy Health Anderson HospitalInterpretation and review of laboratory resultsAbnormalUParkwood HospitalMCH (RBC) [Entitic mass]29.3 pg26.0 - 34.0 pgOhioHealth Berger HospitalMCHC (RBC) [Mass/Vol]33.2 g/dL32.0 - 36.0 g/dLOhioHealth Berger HospitalMCV (RBC) [Entitic vol]88 fL80 - 100 fLUniWayne HospitalNucleated RBC/100 WBC (Bld) [Ratio]0.0 %[facility] HospitalPlatelets (Bld) [#/Vol] 323 10*3/[address] HospitalRBC (Bld) [#/Vol]3.75 10*6/[facility] CenterWBC (Bld) [#/Vol]6.3 10*3/[address] HospitalUnMercy Health Anderson HospitalErythrocyte distribution width (RBC) [Ratio]13.5 %Iywmeh21.5-14.5Martin [facility] HospitalComment on above:Performed By: #### 60613-4 #### PACHECO Ferraro ([id number]) [facility] ([facility]) [address] [place] [address]Ibgjpihdke (Bld) [Volume fraction]33.1 %Low41.0-52.0 [facility] HospitalComment on above:Performed By: #### 29618-0 #### PACHECO Ferraro ([id number]) [facility] ([facility]) [address] [place], [place] [address]Dinuyujcdk (Bld) [Mass/Vol]11.0 g/dLLow13.5-17.5UnUC West Chester HospitalComment on above:Performed By: #### 63774-2 #### PACHECO Ferraro ([id number]) [facility] ([facility]) [address] [place] [address] 665[address]UHO (RBC) [Entitic mass]29.3 nkQwujfm77.0-34.0[facility] Memorial HospitalComment on above:Performed By: #### 25670-1 #### PACHECO Ferraro ([id number]) [facility]) [address] [place], [place] [address]XLCC (RBC) [Mass/Vol]33.2 g/sTDrrpyv05.0-36.0UnUC West Chester HospitalComment on above:Performed By: #### 69167-4 #### PACHECO Ferraro ([id number]) [facility]) [address] [place] [address]EAJ (RBC) [Entitic vol]88 dDSvnkoj28-779YtniohdymlUC West Chester HospitalComment on above:Performed By: #### 58142-5 #### PACHECO Ferraro ([id number]) [facility] ([facility]) [address] [place] [address] 401[address]Ttedbphvg RBC/100 WBC (Bld) [Ratio]0.0 /100 WBCsNormal0.0-0.0 [facility] HospitalComment on above:Performed By: #### 85101-9 #### PACHECO Ferraro ([id number]) [facility] ([facility]) [address] [place] [address] 049[address]Rvcifnigv (Bld) [#/Vol]323 x10*3/bLWtbvms965-515MauzgonqpnUC West Chester HospitalComment on above:Performed By: #### 57583-6 #### PACHECO Ferraro ([id number]) [facility] ([facility]) [address] [place] [address] 694[address]CID (Bld) [#/Vol]3.75 x10*6/uLLow4.50-5.90UnUC West Chester HospitalComment on above:Performed By: #### 16851-9 #### PACHECO Ferraro ([id number]) [facility] ([facility]) [address] [place] [address] 24582KXC (Bld) [#/Vol]6.3 x10*3/uLNormal4.4-11.3UnUC West Chester HospitalComment on above:Performed By: #### 04911-2 #### PACHECO Ferraro ([id number]) [facility] ([facility]) [address] [place], [place] [address]Ewzpiaa Test strip manual (Bld) [Mass/Vol]on 06-06-2023 Glucose [Mass/Vol]207 mg/dIRdxb08 - 99 mg/dLUnMercy Health Anderson Hospital Interpretation and review of laboratory resultsAbnoMagruder Memorial HospitalUnMercy Health Anderson HospitalGlucose [Mass/Vol]207 mg/zIDtcy13-33 [facility] HospitalComment on above:Performed By: #### 47633-5 #### PACHECO Ferraro ([id number]) [facility] ([facility]) [address] [place], [place] [address]Gbetzvo [Mass/Vol]159 mg/tWHmqf21 - 99 mg/dLUnMercy Health Anderson HospitalInterpretation and review of laboratory resultsAbMercy Health St. Elizabeth Youngstown HospitalUnMercy Health Anderson HospitalGlucose [Mass/Vol]159 mg/oDVjkx90-41QthiahbfvsUC West Chester HospitalComment on above:Performed By: #### 53437-2 #### PACHECO Ferraro ([id number]) [facility] ([facility]) [address] [place] [address]Cpfdx function 2000 panelon 93-93-4730Hmjeszp BCP dye [Mass/Vol]3.6 g/dL3.4 - 5.0 g/dLUnMercy Health Anderson HospitalAnion gap [Moles/Vol]13 mmol/L10 - 20 mmol/[facility] HospitalCalcium [Mass/Vol]9.3 mg/dL8.6 - 10.6 mg/dLUnMercy Health Anderson HospitalChloride [Moles/Vol]100 mmol/L98 - 107 mmol/[facility] HospitalCO2 [Moles/Vol]26 mmol/L21 - 32 mmol/[facility] HospitalCreatinine [Mass/Vol]0.60 mg/dL0.50 - 1.30 mg/dLUnMercy Health Anderson HospitaleGFR- PINPremier Health Miami Valley HospitalComment on above:Calculations of estimated GFR are performed using the 2020 CKD-EPI Study Refit equation without therace variable for the IDMS-Traceable creatinine methods. https://jasn.asnjournals.org/content//ASN.8536328248 Glucose [Mass/Vol]236 mg/uHFgjg94 - 99 mg/dLUnMercy Health Anderson Hospital Interpretation and review of laboratory resultsAbnormalUniWayne HospitalPhosphate [Mass/Vol]2.4 mg/dLLow2.5 - 4.9 mg/dLUnMercy Health Anderson HospitalComment on above:The performance characteristics of phosphorus testing in heparinized plasma have been validated by the individual laboratory site where testing is performed. Testing on heparinized plasma is not approved by the FDA; however, such approval is not necessary.Potassium [Moles/Vol]3.3 mmol/LLow 3.5 - 5.3 mmol/[facility] HospitalSodium [Moles/Vol]136 mmol/L136 - 145 mmol/[facility] HospitalUrea nitrogen [Mass/Vol]10 mg/dL6 - 23 mg/dLUnMercy Health Anderson HospitalUnMercy Health Anderson Hospital Albumin BCP dye [Mass/Vol]3.6 g/dLNormal3.4-5.0UnUC West Chester HospitalComment on above:Performed By: #### 13583-4 #### PACHECO Ferraro ([id number]) [facility] ([facility]) [id number] [place] [address] 724[address]Ajbyq gap [Moles/Vol]13 mmol/NMqsguc30-81SufbfdemutUC West Chester HospitalComment on above:Performed By: #### 87263-2 #### PACHECO Ferraro ([id number]) [facility] ([facility]) [address] [place] [address] 04596Yovkgbr [Mass/Vol]9.3 mg/dLNormal8.6-10.6UnUC West Chester HospitalComment on above:Performed By: #### 15345-8 #### PACHECO Ferraro ([id number]) [facility] ([facility]) [address] [place] [address]Azogvrdb [Moles/Vol]100 mmol/WVheroq01-638IyvngdvearUC West Chester HospitalComment on above:Performed By: #### 01878-9 #### PACHECO Ferraro ([id number]) [facility] ([facility]) [address] [place], [place] [address]ZV2 [Moles/Vol]26 mmol/GNhlotb61-65JcwferagmfUC West Chester HospitalComment on above:Performed By: #### 15564-2 #### PACHECO Ferraro ([id number]) [facility] ([facility]) [address] [place] [address] 71519Xicgidntdb [Mass/Vol]0.60 mg/dLNormal0.50-1.30UnUC West [facility] HospitalComment on above:Performed By: #### 61794-8 #### PACHECO Ferraro ([id number]) [facility] ([facility]) [address] [place] [address] 447[address]RLP/1.73 sq M.predicted MDRD (S/P/Bld) [Vol rate/Area] mL/min/{1.73_m2}Normal>60UnUC West Chester HospitalComment on above:Result Comment: Calculations of estimated GFR are performed using the 2020 CKD-EPI Study Refit equation without the race variable for the IDMS-Traceable creatinine methods. https://jasn.asnjournals.org/content/early//ASN.0736799818Fueufneky By: #### 07855-3 #### PACHECO Ferraro ([id number]) [facility] ([facility]) [address] [place], [place] [address]Zbfbrum [Mass/Vol]236 mg/kDWiwv90-20WngktqdodjUC [facility] HospitalComment on above:Performed By: #### [id number] #### PACHECO Ferraro ([id number]) [facility] ([facility]) [id number] [place] [id number] [Mass/Vol]2.4 mg/dLLow2.5-4.9UnUC [facility] HospitalComment on above:Result Comment: The performance characteristics of phosphorus testing in heparinized plasma have been validated by the individual laboratory site where testing is performed. Testing on heparinizedplasma is not approved by the FDA; however, such approval is not necessary.Performed By: #### 83108-7 #### PACHECO Ferraro ([id number]) [facility] ([facility]) [address] [place] [address] 07240Fjosfalko [Moles/Vol]3.3 mmol/LLow3.5-5.3Martin Memorial HospitalComment on above:Performed By: #### 07800-8 #### PACHECO eFrraro ([id number]) [facility] ([facility]) [address] [place] [address] 20595Pehvzj [Moles/Vol]136 mmol/MDzwipy719-341GpyrrocyqqUC West Chester HospitalComment on above:Performed By: #### 79492-3 #### PACHECO Ferraro ([id number]) [facility] ([facility]) [address] [place] [address] 79475Zhqy nitrogen [Mass/Vol]10 mg/dLNormal6-23UnUC West Chester HospitalComment on above:Performed By: #### 80055-5 #### PACHECO Ferraro ([id number]) [facility] ([facility]) [address] [place] [address] 15321Rbqthnh Test strip manual (Bld) [Mass/Vol]on 06-05-2023 Glucose [Mass/Vol]226 mg/fDWoij28 - 99 mg/dLUnMercy Health Anderson Hospital Interpretation and review of laboratory resultsAbnoAvita Health System Ontario HospitalGlucose [Mass/Vol]226 mg/vQMiai75-77 [facility] HospitalComment on above:Performed By: #### 38929-6 #### PACHECO Ferraro ([id number]) [facility] ([facility]) [id number] [place] [address] 81865Fhgewkh [Mass/Vol]160 mg/fOWzqg63 - 99 mg/dLUnMercy Health Anderson HospitalInterpretation and review of laboratory resultsAbMercy Health St. Elizabeth Youngstown HospitalUnMercy Health Anderson HospitalGlucose [Mass/Vol]160 mg/xCDhzv80-35JtydwgzscqUC West [facility] HospitalComment on above:Performed By: #### 44010-4 #### PACHECO Ferraro ([id number]) [facility] ([facility]) [address] [place], [place] [address]Ldssfev [Mass/Vol]192 mg/fIYyhe90 - 99 mg/dLUnMercy Health Anderson HospitalInterpretation and review of laboratory resultsAbMercy Health St. Elizabeth Youngstown HospitalUnMercy Health Anderson HospitalGlucose [Mass/Vol]192 mg/fXAmgw57-39RogvljyyheUC West Chester HospitalComment on above:Performed By: #### 80868-7 #### PACHECO Ferraro ([id number]) [facility] ([facility]) [address] [place], [place] [address]Rmtdjfy [Mass/Vol]163 mg/aBHapu40 - 99 mg/dLUnMercy Health Anderson HospitalInterpretation and review of laboratory resultsAbMercy Health St. Elizabeth Youngstown HospitalUnMercy Health Anderson HospitalGlucose [Mass/Vol]163 mg/gFNmwx42-78HrsmuiolchUC West Chester HospitalComment on above:Performed By: #### 98338-3 #### PACHECO Ferraro ([id number]) [facility] ([facility]) [address] [place], [place] [address]Prdgy metabolic 2000 panelon 26-35-0237Dgctp gap [Moles/Vol] 12 mmol/L10 - 20 mmol/[facility] HospitalCalcium [Mass/Vol]8.4 mg/dLLow8.6 - 10.6 mg/dLUnMercy Health Anderson HospitalChloride [Moles/Vol]102 mmol/L98 - 107 mmol/[facility] HospitalCO2 [Moles/Vol]28 mmol/L 21 - 32 mmol/[facility] HospitalCreatinine [Mass/Vol]0.56 mg/dL 0.50 - 1.30 mg/dLUnMercy Health Anderson HospitaleGFR- PINFUniWayne HospitalComment on above:Calculations of estimated GFR are performed using the 2020 CKD-EPI Study Refit equation without therace variable for the IDMS- Traceable creatinine methods. https://jasn.asnjournals.org/content//ASN.3940186091 Glucose [Mass/Vol]235 mg/fVJtnl84 - 99 mg/dLUnMercy Health Anderson Hospital Interpretation and review of laboratory resultsAbnormalUniWayne HospitalPotassium [Moles/Vol]3.4 mmol/LLow3.5 - 5.3 mmol/[facility] HospitalSodium [Moles/Vol]139 mmol/L136 - 145 mmol/[facility] HospitalUrea nitrogen [Mass/Vol]14 mg/dL6 - 23 mg/dLOhioHealth Berger HospitalAnion gap [Moles/Vol]12 mmol/TGicgzq06-20RolfubflwoUC West Chester HospitalComment on above:Performed By: #### 34611-9 #### PACHECO Ferraro ([id number]) [facility] ([facility]) [address] [place], [place] [address]Gpcxeyf [Mass/Vol]8.4 mg/dLLow8.6-10.6UnUC West Chester HospitalComment on above:Performed By: #### 31666-9 #### PACHECO Ferraro ([id number]) [facility] ([facility]) [address] [place], [place] [address]Eritkpyd [Moles/Vol]102 mmol/EVjzwyx38-322EimasndjvdUC West Chester HospitalComment on above:Performed By: #### 88449-6 #### PACHECO Ferraro (23530) [facility] ([facility]) [address] [place], [place] [address]UK1 [Moles/Vol]28 mmol/JNojklp40-93RyvubzuqbyMartin Memorial HospitalComment on above:Performed By: #### 70903-1 #### PACHECO Ferraro (93579) [facility] ([facility]) [address] [place], [place] [address]Omgwmfswnw [Mass/Vol]0.56 mg/dLNormal0.50-1.30UnUC West Chester HospitalComment on above:Performed By: #### 44587-1 #### PACHECO Ferraro ([id number]) [facility] ([facility]) [address] [place], [place] [address]HAN/1.73 sq M.predicted MDRD (S/P/Bld) [Vol rate/Area] mL/min/{1.73_m2}Normal>60UnUC West Chester HospitalComment on above:Result Comment: Calculations of estimated GFR are performed using the 2020 CKD-EPI Study Refit equation without the race variable for the IDMS-Traceable creatinine methods. https://jasn.asnjournals.org/content/early/ASN.0676250738Acocwdxlu By: #### 67713-4 #### APCHECO Ferraro ([id number]) [facility] ([facility]) [address] [place], [place] [address]Ltunfev [Mass/Vol]235 mg/wXIihk55-31WkkldujvqaUC West Chester HospitalComment on above:Performed By: #### 80681-5 #### PACHECO Ferraro (94033) [facility] ([facility]) [address] [place], [place] [address]Eeapdqlmk [Moles/Vol]3.4 mmol/LLow3.5-5.3Martin Memorial HospitalComment on above:Performed By: #### 48874-7 #### PACHECO Ferraro (50129) [facility] ([facility]) [address] [place], [place] [address]Mwknbh [Moles/Vol]139 mmol/GHrvwmh001-058ErrsfieprmUC West Chester HospitalComment on above:Performed By: #### 16232-3 #### PACHECO Ferraro (40413) [facility] ([facility]) [address] [place], [place] [address]Uiia nitrogen [Mass/Vol]14 mg/dLNormal6-23Martin Memorial HospitalComment on above:Performed By: #### 49121-0 #### PACHECO Ferraro (25227) [facility] ([facility]) [address] [place], [place] [address]JZO panel Auto (Bld)on 14-30-1483Lhmklwkjori distribution width (RBC) [Ratio]13.6 %11.5 - 14.5 %[facility] Hematocrit (Bld) [Volume fraction]30.9 %Low41.0 - 52.0 %[facility] HospitalHemoglobin (Bld) [Mass/Vol]9.7 g/dLLow13.5 - 17.5 g/dLUnMercy Health Anderson HospitalInterpretation and review of laboratory resultsAbnormal [facility] (RBC) [Entitic mass]28.1 pg26.0 - 34.0 pg [facility] HospitalHC (RBC) [Mass/Vol]31.4 g/dLLow32.0 - 36.0 g/dLOhioHealth Berger HospitalMCV (RBC) [Entitic vol]90 fL80 - 100 fL [facility] HospitalNucleated RBC/100 WBC (Bld) [Ratio]0.0 % [facility] HospitalPlatelets (Bld) [#/Vol]209 10*3/[facility] HospitalRBC (Bld) [#/Vol]3.45 10*6/[facility]. Vincent HospitalWBC (Bld) [#/Vol]8.3 10*3/[facility] Erythrocyte distribution width (RBC) [Ratio]13.6 %Bdzvbf20.5-14.5UnUC West [facility] HospitalComment on above:Performed By: #### 10492-8 #### PACHECO Ferraro ([id number]) [facility] ([facility]) [address] [place], [place] [address]Hdnnfjnisz (Bld) [Volume fraction]30.9 %Low41.0-52.0 Martin Memorial HospitalComment on above:Performed By: #### 05212-8 #### PACHECO Ferraro (50876) [facility] ([facility]) [address] [place], [place] [address]Vlunxquxfh (Bld) [Mass/Vol]9.7 g/dLLow13.5-17.5UnUC [facility] HospitalComment on above:Performed By: #### 38238-2 #### PACHECO Ferraro (84807) [facility] ([facility]) [address] [place], [place] [address]CXP (RBC) [Entitic mass]28.1 ceFeikxb94.0-34.0UnUC [facility] HospitalComment on above:Performed By: #### 34212-4 #### PACHECO Ferraro (73681) [facility] ([facility]) [address] [place], [place] [address]HCSQ (RBC) [Mass/Vol]31.4 g/dLLow32.0-36.0UnUC [facility] HospitalComment on above:Performed By: #### 22527-3 #### PACHECO Ferraro (94280) [facility] ([facility]) [address] [place], [place] [address]FBW (RBC) [Entitic vol]90 dWKfenax88-175AkskrqnttwUC West Chester HospitalComment on above:Performed By: #### 64826-4 #### PACHECO Ferraro (78991) [facility] ([facility]) [address] [place], [place] [address]Nmengygix RBC/100 WBC (Bld) [Ratio]0.0 /100 WBCsNormal0.0-0.0 Martin Memorial HospitalComment on above:Performed By: #### 82408-0 #### PACHECO Ferraro ([id number]) [facility] ([facility]) [address] [place], [place] [address]Nfskgjxpk (Bld) [#/Vol]209 x10*3/bXMlopsk684-567SvmknoagjnUC West [facility] HospitalComment on above:Performed By: #### 04696-0 #### PACHECO Ferraro ([id number]) [facility] ([facility]) [address] [place], [place] [address]DDT (Bld) [#/Vol]3.45 x10*6/uLLow4.50-5.90UnUC West [facility] HospitalComment on above:Performed By: #### 35426-6 #### PACHECO Ferraro (63049) [facility] ([facility]) [address] [place], [place] [address]BCR (Bld) [#/Vol]8.3 x10*3/uLNormal4.4-11.3UnUC [facility] HospitalComment on above:Performed By: #### 10016-2 #### PACHECO Ferraro ([id number]) [facility] ([facility]) [address] [place], [place] [address]Frgwdnc Test strip manual (Bld) [Mass/Vol]on 06-04-2023 Glucose [Mass/Vol]184 mg/pGLvjg99 - 99 mg/dLUnMercy Health Anderson Hospital Interpretation and review of laboratory resultsAbWilson Street HospitalGlucose [Mass/Vol]184 mg/oWXjov83-89ZwlchokzivUC West Chester HospitalComment on above:Performed By: #### 10075-5 #### PACHECO Ferraro ([id number]) [facility] ([facility]) [address] [place], [place] [address]Gdbffgj [Mass/Vol]243 mg/wOYveq00 - 99 mg/dLUnMercy Health Anderson HospitalInterpretation and review of laboratory resultsAbMercy Health St. Elizabeth Youngstown HospitalGlucose [Mass/Vol]243 mg/cBAlgu14-30WfycnlenhjUC West [facility] HospitalComment on above:Performed By: #### 94606-9 #### PACHECO Ferraro (33886) [facility] ([facility]) [address] [place], [place] [address]Yytzsdr [Mass/Vol]233 mg/gTSbex37 - 99 mg/dLUnMercy Health Anderson HospitalInterpretation and review of laboratory resultsAbMercy Health St. Elizabeth Youngstown HospitalGlucose [Mass/Vol]233 mg/rUYylg09-27GryokbaxpeUC West Chester HospitalComment on above:Performed By: #### 72126-7 #### PACHECO Ferraro (36558) [facility] ([facility]) [address] [place], [place] [address]Ywwldqi [Mass/Vol]139 mg/kEHdjt30 - 99 mg/dLOhioHealth Berger HospitalInterpretation and review of laboratory resultsAbnoKettering Health HamiltonGlucose [Mass/Vol]139 mg/vOEmhz00-71AfdxdkapgqUC [facility] HospitalComment on above:Performed By: #### 74404-4 #### PACHECO Ferraro ([id number]) [facility] ([facility]) [address] [place], [place] [address]Dj Panel Informationon 37-51-9370Xzjknvgb StatusREOhioHealth Berger HospitalPRODUCT BLOOD [id number] Berger Hospital PRODUCT [id number] Berger HospitalUn ABOOUnMercy Health Anderson HospitalUn RHNegativeOhioHealth Berger HospitalUN XYHAHF176RkhbjwlwpiOhioHealth Berger HospitalX INTEPCOMPUnMercy Health Anderson HospitalUnMercy Health Anderson HospitalPrepare RBC: 2 Unitson 98-81-3145Zjibd Expiration DateMarch 2023 23:59 EDBerger HospitalBlood Expiration DateApril 2023 23:59 [facility] [id number] Memorial HospitalUnit [id number] [facility] HospitalBataylor regional hospital metabolic 2000 panelon 25-16-4823Jwetw gap [Moles/Vol]10 mmol/L10 - 20 mmol/[facility] HospitalCalcium [Mass/Vol]8.6 mg/dL8.6 - 10.6 mg/dLOhioHealth Berger HospitalChloride [Moles/Vol]105 mmol/L98 - 107 mmol/[facility] HospitalCO2 [Moles/Vol]27 mmol/L21 - 32 mmol/[facility] HospitalCreatinine [Mass/Vol]0.58 mg/dL0.50 - 1.30 mg/dLUnMercy Health Anderson HospitaleG- East Liverpool City HospitalComment on above:Calculations of estimated GFR are performed using the 2020 CKD-EPI Study Refit equation without therace variable for the IDMS-Traceable creatinine methods. https://jasn.asnjournals.org/content//ASN.2921902337 Glucose [Mass/Vol]181 mg/ePDsvf17 - 99 mg/dLUnMercy Health Anderson Hospital Interpretation and review of laboratory resultsAbnormalUniWayne HospitalPotassium [Moles/Vol]3.3 mmol/LLow3.5 - 5.3 mmol/[facility] HospitalSodium [Moles/Vol]139 mmol/L136 - 145 mmol/[facility] HospitalUrea nitrogen [Mass/Vol]10 mg/dL6 - 23 mg/dLOhioHealth Berger HospitalUnMercy Health Anderson HospitalAnion gap [Moles/Vol]10 mmol/LNormal 10-20UnUC [facility] HospitalComment on above:Performed By: #### 49925-2 #### PACHECO Ferraro ([id number]) [facility] ([facility]) [address] [place] [address]Fktcyhm [Mass/Vol]8.6 mg/dLNormal8.6-10.6UnUC [facility] HospitalComment on above:Performed By: #### 37722-0 #### PACHECO Ferraro ([id number]) [facility] ([facility]) [address] [place] [address]Jfvhlppa [Moles/Vol]105 mmol/ZMozxfl91-545NookktcfamUC West Chester HospitalComment on above:Performed By: #### 16108-3 #### PACHECO Ferraro (42583) [facility] ([facility]) [address] [place] [address]WN3 [Moles/Vol]27 mmol/FAqsdzf04-61YmynhpogxlUC West Chester HospitalComment on above:Performed By: #### 62114-9 #### PACHECO Ferraro (41689) [facility] ([facility]) [address] [place] [address]Odhutybqtv [Mass/Vol]0.58 mg/dLNormal0.50-1.30UnUC [facility] HospitalComment on above:Performed By: #### 36999-2 #### PACHECO Ferraro ([id number]) [facility] ([facility]) [address] [place], [place] [address]RKO/1.73 sq M.predicted MDRD (S/P/Bld) [Vol rate/Area] mL/min/{1.73_m2}Normal>60UnUC [facility] HospitalComment on above:Result Comment: Calculations of estimated GFR are performed using the 2020 CKD-EPI Study Refit equation without the race variable for the IDMS-Traceable creatinine methods. https://jasn.asnjournals.org/content/early//ASN.3405804812Bqqlwzscl By: #### 27758-2 #### PACHECO Ferraro ([id number]) [facility] ([facility]) [address] [place] [address]Fyxaqpq [Mass/Vol]181 mg/zUGggf84-67RakdvzeymtUC West Chester HospitalComment on above:Performed By: #### 16323-6 #### PACHECO Ferraro (46336) [facility] ([facility]) [address] [place], [place] [address]Hiwhlkmgi [Moles/Vol]3.3 mmol/LLow3.5-5.3Martin Memorial HospitalComment on above:Performed By: #### 73276-4 #### PACHECO Ferraro (58134) [facility] ([facility]) [address] [place] [address]14[address]Zgcqhq [Moles/Vol]139 mmol/LVbvxba215-312CpmxaydieaUC West Chester HospitalComment on above:Performed By: #### 46852-1 #### PACHECO Ferraro (94376) [facility] ([facility]) [address] [place] [address]95[address]Dzch nitrogen [Mass/Vol]10 mg/dLNormal6-23Martin Memorial HospitalComment on above:Performed By: #### 48612-6 #### PACHECO Ferraro (56383) [facility] ([facility]) [address] [place] [address]VNR panel Auto (Bld)on 65-78-1429Xryoagfarpz distribution width (RBC) [Ratio]14.2 %11.5 - 14.5 %[facility] Hematocrit (Bld) [Volume fraction]31.3 %Low41.0 - 52.0 %[facility] HospitalHemoglobin (Bld) [Mass/Vol]10.1 g/dLLow13.5 - 17.5 g/dLOhioHealth Berger HospitalInterpretation and review of laboratory resultsAbnoProMedica Toledo Hospital (RBC) [Entitic mass]29.3 pg26.0 - 34.0 pg [facility] HospitalHC (RBC) [Mass/Vol]32.3 g/dL32.0 - 36.0 g/dL [facility] Doctors HospitalV (RBC) [Entitic vol]91 fL80 - 100 fL [facility] HospitalNucleated RBC/100 WBC (Bld) [Ratio]0.0 % [facility] HospitalPlatelets (Bld) [#/Vol]203 10*3/[facility] HospitalRBC (Bld) [#/Vol]3.45 10*6/[facility]. Vincent HospitalWBC (Bld) [#/Vol]9.4 10*3/[address] HospitalUnMercy Health Anderson HospitalErythrocyte distribution width (RBC) [Ratio]14.2 %Normal 11.5-14.5UnUC [facility] HospitalComment on above:Performed By: #### 33050-1 #### PACHECO Ferraro (08974) [facility] ([facility]) [address] [place], [place] [address]Fsmmvzzjah (Bld) [Volume fraction]31.3 %Low41.0-52.0 [facility] HospitalComment on above:Performed By: #### 85926-4 #### PACHECO Ferraro (58975) [facility] ([facility]) [address] [place], [place] [address]Awgpylrepp (Bld) [Mass/Vol]10.1 g/dLLow13.5-17.5UnUC [facility] HospitalComment on above:Performed By: #### 58126-9 #### PACHECO Ferraro ([id number]) [facility] ([facility]) [address] [place], [place] [address]FWR (RBC) [Entitic mass]29.3 ptTlgrxz01.0-34.0Martin Memorial HospitalComment on above:Performed By: #### 45271-6 #### PACHECO Ferraro (88584) [facility] ([facility]) [address] [place] [address]VAES (RBC) [Mass/Vol]32.3 g/lQVgzvxw38.0-36.0Martin [facility] HospitalComment on above:Performed By: #### 73144-6 #### PACHECO Ferraro (94124) [facility] ([facility]) [address] [place] [address]ELI (RBC) [Entitic vol]91 yFJopifs25-376MiqqvitinxUC West Chester HospitalComment on above:Performed By: #### 36014-8 #### PACHECO Ferraro (35998) [facility] ([facility]) [address] [place] [address]Xgaajvmhm RBC/100 WBC (Bld) [Ratio]0.0 /100 WBCsNormal0.0-0.0 [facility] HospitalComment on above:Performed By: #### 50936-9 #### PACHECO Ferraro (11984) [facility] ([facility]) [address] [place] [address]Oivhdhniy (Bld) [#/Vol]203 x10*3/cMBqmhss092-796NfuxnakeaiUC West Chester HospitalComment on above:Performed By: #### 90252-4 #### PACHECO Ferraro (74928) [facility] ([facility]) [address] [place] [address]LYM (Bld) [#/Vol]3.45 x10*6/uLLow4.50-5.90UnUC [facility] HospitalComment on above:Performed By: #### 56445-2 #### PACHECO Ferraro (53540) [facility] ([facility]) [address] [place] [address]ATG (Bld) [#/Vol]9.4 x10*3/uLNormal4.4-11.3UnUC [facility] HospitalComment on above:Performed By: #### 10256-2 #### PACHECO Ferraro (46415) [facility] ([facility]) [address] [place] [address]Xoelirs Test strip manual (Bld) [Mass/Vol]on 06-03-2023 Glucose [Mass/Vol]207 mg/cNMcsc73 - 99 mg/dLUnMercy Health Anderson Hospital Interpretation and review of laboratory resultsAbnoAvita Health System Ontario HospitalGlucose [Mass/Vol]207 mg/hPZtij68-38 [facility] HospitalComment on above:Performed By: #### 16511-6 #### PACHECO Ferraro (48024) [facility] ([facility]) [address] [place] [address]42[address]Jghtcax [Mass/Vol]224 mg/yWXbsb65 - 99 mg/dLUnMercy Health Anderson HospitalInterpretation and review of laboratory resultsAbAshtabula County Medical CenterGlucose [Mass/Vol]224 mg/yOThnv18-72SnojjuwfibUC [facility] HospitalComment on above:Performed By: #### 78004-8 #### PACHECO Ferraro (53876) [facility] ([facility]) [address] [place] [address]Ohikvzq [Mass/Vol]129 mg/aZUdbw42 - 99 mg/dLUnMercy Health Anderson HospitalInterpretation and review of laboratory resultsAbAshtabula County Medical CenterGlucose [Mass/Vol]129 mg/dONajl57-90BkeanvgwbvUC West [facility] HospitalComment on above:Performed By: #### 39495-8 #### PACHECO Ferraro ([id number]) [facility] ([facility]) [address] [place], [place] [address]XSF panel Auto (Bld)on 60-87-7601Mmbslxzpref distribution width (RBC) [Ratio]14.6 %High11.5 - 14.5 %[facility] Hematocrit (Bld) [Volume fraction]34.9 %Low41.0 - 52.0 %[facility] HospitalHemoglobin (Bld) [Mass/Vol]10.9 g/dLLow13.5 - 17.5 g/dLUnMercy Health Anderson HospitalInterpretation and review of laboratory resultsAbnoProMedica Toledo Hospital (RBC) [Entitic mass]28.7 pg26.0 - 34.0 pg [facility] HospitalHC (RBC) [Mass/Vol]31.2 g/dLLow32.0 - 36.0 g/dLOhioHealth Doctors HospitalV (RBC) [Entitic vol]92 fL80 - 100 fL [facility] HospitalNucleated RBC/100 WBC (Bld) [Ratio]0.0 % [facility] HospitalPlatelets (Bld) [#/Vol]243 10*3/[facility] HospitalRBC (Bld) [#/Vol]3.80 10*6/[facility]. Vincent HospitalWBC (Bld) [#/Vol]10.6 10*3/[facility]ional Medical CenterErythrocyte distribution width (RBC) [Ratio] 14.6 %High11.5-14.5Un[facility] HospitalComment on above:Performed By: #### [id number] #### PACHECO Ferraro ([id number]) [facility] ([facility]) [id number] [place] [address]Ezfspuvcas (Bld) [Volume fraction]34.9 %Low41.0-52.0 [facility] HospitalComment on above:Performed By: #### 02188-7 #### PACHECO Ferraro ([id number]) [facility] ([facility]) [address] [place], [place] [address]Vjarrlmvzu (Bld) [Mass/Vol]10.9 g/dLLow13.5-17.5Un[facility] HospitalComment on above:Performed By: #### 40073-3 #### PACHECO Ferraro ([id number]) [facility] ([facility]) [address] [place], [place] [address]QWZ (RBC) [Entitic mass]28.7 nmNiftgz30.0-34.0Un[facility] HospitalComment on above:Performed By: #### 10886-4 #### PACHECO Ferraro ([id number]) [facility] ([facility]) [address] [place], [place] [address]YZYS (RBC) [Mass/Vol]31.2 g/dLLow32.0-36.0Un[facility] HospitalComment on above:Performed By: #### 99478-1 #### PACHECO Ferraro ([id number]) [facility] ([facility]) [id number] [place] [address]BVI (RBC) [Entitic vol]92 lUCwhhan96-271KfwfvsjyoxUC [facility] HospitalComment on above:Performed By: #### 90143-2 #### PACHECO Ferraro ([id number]) [facility] ([facility]) [address] [place], [place] [address]Lxucdvmtl RBC/100 WBC (Bld) [Ratio]0.0 /100 WBCsNormal0.0-0.0 [facility] HospitalComment on above:Performed By: #### 13466-2 #### PACHECO Ferraro ([id number]) [facility] ([facility]) [address] [place], [place] [address]Ihmqdvuuf (Bld) [#/Vol]243 x10*3/iWKzgsbv341-536KfxruybkhnUC West [place] HospitalComment on above:Performed By: #### 98843-6 #### PACHECO Ferraro ([id number]) [facility] ([facility]) [id number] [place] [address]LZZ (Bld) [#/Vol]3.80 x10*6/uLLow4.50-5.90Un[facility] HospitalComment on above:Performed By: #### 10288-6 #### PACHECO Ferraro ([id number]) [facility] ([facility]) [address] [place] [address] 59375GJP (Bld) [#/Vol]10.6 x10*3/uLNormal4.4-11.3Martin Memorial HospitalComment on above:Performed By: #### 64227-7 #### PACHECO Ferraro ([id number]) [facility] ([facility]) [address] [place] [address] 54802Tqxkkbswvmag 75-73-4925Eznpzguaaa Coag (PPP) [Mass/Vol]270 mg/dL200 - 400 mg/dLOhioHealth Berger HospitalFibrinogen Coag (PPP) [Mass/Vol]270 mg/kXJrxaxo314-315XvmchxwjbaUC [facility] Comment on above:Performed By: #### 98809-9 #### PACHECO Ferraro ([id number]) [facility] ([facility]) [address] [place] [address] 78955Dbvkecypcv Coag (PPP) [Mass/Vol]on 00-28-4713Hhbcylluzlgfmv and review of laboratory resultsNoUniversity Hospitals Beachwood Medical CenterGlucose Test strip manual (Bld) [Mass/Vol]on 44-36-7358Dencfgu [Mass/Vol]248 mg/hKWewy55 - 99 mg/dLOhioHealth Berger HospitalInterpretation and review of laboratory resultsAbnoMagruder Memorial HospitalUnMercy Health Anderson HospitalGlucose [Mass/Vol]248 mg/iLCcwe26-00CxnfyydheeUC West [facility] HospitalComment on above: Performed By: #### 76713-6 #### PACHECO Ferraro ([id number]) [facility] ([facility]) [address] [place] [address] 81307Ktlqvwc [Mass/Vol]278 mg/zIZmli66 - 99 mg/dLOhioHealth Berger HospitalInterpretation and review of laboratory resultsAbMercy Health St. Elizabeth Youngstown HospitalUnMercy Health Anderson HospitalGlucose [Mass/Vol]233 mg/fCQwad14 - 99 mg/dLUnMercy Health Anderson Hospital Interpretation and review of laboratory resultsAbnormalUParkwood HospitalUnMercy Health Anderson HospitalGlucose [Mass/Vol]278 mg/pYZxpt72-81 [facility] HospitalComment on above:Performed By: #### 11998-4 #### PACHECO Ferraro ([id number]) [facility] ([facility]) [address] [place] [address] 52078Aqfipje [Mass/Vol]233 mg/cKFqxv21-74CvdfaulcdcUC West [facility] HospitalComment on above:Performed By: #### 57308-1 #### PACHECO Ferraro ([id number]) [facility] ([facility]) [address] [place] [address] 75603Dceqyowzdcr 82-62-3624Ymzqadjav [Mass/Vol]1.74 mg/dL1.60 - 2.40 mg/dLUnMercy Health Anderson HospitalMagnesium [Mass/Vol]1.74 mg/dLNormal 1.60-2.40UnUC West [facility] HospitalComment on above:Performed By: #### 99253-7 #### PACHECO Ferraro ([id number]) [facility] ([facility]) [address] [place] [address] 96762Lfzbrglkt [Mass/Vol]on 34-61-3834Wonfljswhwlann and review of laboratory resultsNoMagruder Memorial HospitalNo Panel Informationon 06-91-6821IsvimzrtqeMercy Health Anderson HospitalRenal function 2000 panelon 23-77-2764Veplsxz BCP dye [Mass/Vol]3.8 g/dL3.4 - 5.0 g/dLUnMercy Health Anderson HospitalAnion gap [Moles/Vol]11 mmol/L10 - 20 mmol/[facility] HospitalCalcium [Mass/Vol]8.7 mg/dL8.6 - 10.6 mg/dLUnMercy Health Anderson HospitalChloride [Moles/Vol]102 mmol/L98 - 107 mmol/[facility] HospitalCO2 [Moles/Vol]26 mmol/L21 - 32 mmol/[facility] Creatinine [Mass/Vol]0.71 mg/dL0.50 - 1.30 mg/dLUnMercy Health Anderson HospitaleGFR- PINFUniWayne HospitalComment on above: Calculations of estimated GFR are performed using the 2020 CKD-EPI Study Refit equation without therace variable for the IDMS-Traceable creatinine methods. https://jasn.asnjournals.org/content//ASN.1540040964 Glucose [Mass/Vol]163 mg/wASrfc55 - 99 mg/dLUnMercy Health Anderson Hospital Interpretation and review of laboratory resultsAbnoMagruder Memorial HospitalPhosphate [Mass/Vol]2.1 mg/dLLow2.5 - 4.9 mg/dLUnMercy Health Anderson HospitalComformerly [facility] on above:The performance characteristics of phosphorus testing in heparinized plasma have been validated by the individual laboratory site where testing is performed. Testing on heparinized plasma is not approved by the FDA; however, such approval is not necessary.Potassium [Moles/Vol]3.3 mmol/LLow 3.5 - 5.3 mmol/[facility] HospitalSodium [Moles/Vol]136 mmol/L136 - 145 mmol/[facility] HospitalUrea nitrogen [Mass/Vol]8 mg/dL6 - 23 mg/dLUnMercy Health Anderson HospitalAlbumin BCP dye [Mass/Vol]3.8 g/dL Normal3.4-5.0UnUC West Chester HospitalComment on above: Performed By: #### 31518-9 #### PACHECO Ferraro ([id number]) [facility] ([facility]) [address] [place] [address] 91315Wqqfc gap [Moles/Vol]11 mmol/HBcccyh84-09IegipczwxkUC West Chester HospitalComment on above:Performed By: #### 17542-6 #### PACHECO Ferraro ([id number]) [facility] ([facility]) [address] [place] [address] 60139Ajflovz [Mass/Vol]8.7 mg/dLNormal8.6-10.6UnUC West Chester HospitalComment on above:Performed By: #### 73664-8 #### PACHECO Ferraro ([id number]) [facility] ([facility]) [address] [place], [place] [address]Nhzmgdpv [Moles/Vol]102 mmol/XDwjcca09-397GctziqdfvwMartin Memorial HospitalComment on above:Performed By: #### 09998-8 #### PACHECO Ferraro ([id number]) [facility] ([facility]) [address] [place], [place] [address]BE0 [Moles/Vol]26 mmol/NFgawcu78-46EuogkaitcrMartin Memorial HospitalComment on above:Performed By: #### 34998-2 #### PACHECO Ferraro ([id number]) [facility] ([facility]) [address] [place] [address] 04819Hiclcenwgj [Mass/Vol]0.71 mg/dLNormal0.50-1.30Martin Memorial HospitalComment on above:Performed By: #### 89731-3 #### PACHECO Ferraro ([id number]) [facility] ([facility]) [address] [place], [place] [address]CTP/1.73 sq M.predicted MDRD (S/P/Bld) [Vol rate/Area] mL/min/{1.73_m2}Normal>60UnUC West Chester HospitalComment on above:Result Comment: Calculations of estimated GFR are performed using the 2020 CKD-EPI Study Refit equation without the race variable for the IDMS-Traceable creatinine methods. https://jasn.asnjournals.org/content/early//ASN.8195254913Adslsjojq By: #### 50583-6 #### PACHECO Ferraro ([id number]) [facility] ([facility]) [address] [place], [place] [address]Uekotmu [Mass/Vol]163 mg/pKRndc86-21KafkzilxivMartin Memorial HospitalComment on above:Performed By: #### 00235-0 #### PACHECO Ferraro ([id number]) [facility] ([facility]) [address] [place] [address] 44814Jqtulaqns [Mass/Vol]2.1 mg/dLLow2.5-4.9UnUC West [facility] HospitalComment on above:Result Comment: The performance characteristics of phosphorus testing in heparinized plasma have been validated by the individual laboratory site where testing is performed. Testing on heparinizedplasma is not approved by the FDA; however, such approval is not necessary.Performed By: #### 97091-2 #### PACHECO Ferraro ([id number]) [facility] ([facility]) [address] [place] [address] 99025Jccbunryu [Moles/Vol]3.3 mmol/LLow3.5-5.3UnUC West [facility] HospitalComment on above:Performed By: #### 21915-5 #### PACHECO Ferraro ([id number]) [facility] ([facility]) [address] [place] [address] 69967Bkcrlw [Moles/Vol]136 mmol/SAjttsj611-695PalpdiwyzzUC [facility] HospitalComment on above:Performed By: #### 74283-2 #### PACHECO Ferraro ([id number]) [facility] ([facility]) [address] [place] [address] 99578Ybvc nitrogen [Mass/Vol]8 mg/dLNormal6-23UnUC [facility] HospitalComment on above:Performed By: #### 86470-7 #### PACHECO Ferraro ([id number]) [facility] ([facility]) [address] [place] [address] 01160XFB panel Auto (Bld)on 02-66-6478Asqtizfrqwb distribution width (RBC) [Ratio]14.0 %11.5 - 14.5 %[facility] Hematocrit (Bld) [Volume fraction]31.1 %Low41.0 - 52.0 %[facility] HospitalHemoglobin (Bld) [Mass/Vol]10.5 g/dLLow13.5 - 17.5 g/dLUnMercy Health Anderson HospitalInterpretation and review of laboratory resultsAbnormal [facility] ClevelandMCH (RBC) [Entitic mass]29.0 pg26.0 - 34.0 pg [facility] HospitalMCHC (RBC) [Mass/Vol]33.8 g/dL32.0 - 36.0 g/dL [facility] HospitalMCV (RBC) [Entitic vol]86 fL80 - 100 fL [facility] HospitalNucleated RBC/100 WBC (Bld) [Ratio]0.0 % [facility] HospitalPlatelets (Bld) [#/Vol]233 10*3/[facility] HospitalRBC (Bld) [#/Vol]3.62 10*6/[facility] HospitalWBC (Bld) [#/Vol]9.7 10*3/[address] HospitalUnMercy Health Anderson HospitalErythrocyte distribution width (RBC) [Ratio]14.0 %Normal 11.5-14.5UnUC West [facility] HospitalComment on above:Performed By: #### 37131-6 #### PACHECO Ferraro ([id number]) [facility] ([facility]) [address] [place] [address] 88201Wswcmcadsi (Bld) [Volume fraction]31.1 %Low41.0-52.0 Martin [facility] HospitalComment on above:Performed By: #### 61040-6 #### PACHECO Ferraro ([id number]) [facility] ([facility]) [address] [place] [address] 85937Dusyaambsu (Bld) [Mass/Vol]10.5 g/dLLow13.5-17.5UnUC [facility] HospitalComment on above:Performed By: #### 33826-8 #### PACHECO Ferraro ([id number]) [facility] ([facility]) [address] [place] [address] 18227QWP (RBC) [Entitic mass]29.0 wxQzyqym62.0-34.0UnUC West [facility] HospitalComment on above:Performed By: #### 20682-1 #### PACHECO Ferraro ([id number]) [facility] ([facility]) [address] [place], [place] [address]YSDI (RBC) [Mass/Vol]33.8 g/hEJquchj22.0-36.0UnUC West [facility] HospitalComment on above:Performed By: #### 36066-5 #### PACHECO Ferraro ([id number]) [facility]) [address] [place], [place] [address]GED (RBC) [Entitic vol]86 yJYakoqi90-778EaajhaojwkUC West Chester HospitalComment on above:Performed By: #### 28087-2 #### PACHECO Ferraro ([id number]) [facility]) [address] [place], [place] [address]Nghgunusx RBC/100 WBC (Bld) [Ratio]0.0 /100 WBCsNormal0.0-0.0 [facility] HospitalComment on above:Performed By: #### 69812-6 #### PACHECO Ferraro ([id number]) [facility]) [address] [place] [address] 57983Diyuyppeg (Bld) [#/Vol]233 x10*3/fDJjozfk098-506BcwmebmqbcUC West [facility] HospitalComment on above:Performed By: #### 45611-5 #### PACHECO Ferraro ([id number]) [facility]) [address] [place] [address] 33036IBP (Bld) [#/Vol]3.62 x10*6/uLLow4.50-5.90UnUC West [facility] HospitalComment on above:Performed By: #### 49205-4 #### PACHECO Ferraro ([id number]) [facility]) [address] [place] [address] 07347MKM (Bld) [#/Vol]9.7 x10*3/uLNormal4.4-11.3UnUC West Chester HospitalComment on above:Performed By: #### 68230-0 #### PACHECO Ferraro ([id number]) [facility] ([facility]) [address] [place], [place] [address]JF FLUORO IMAGES NO CHARGEon 80-38-5332EN FLUORO IMAGES NO CHARGEThese images are not reportable by radiology and will not be interpreted by Radiologists.NormalUnUC West Chester HospitalFibrinogen on 39-67-6198Xfvmbnoohi Coag (PPP) [Mass/Vol]195 mg/eNFvb923 - 400 mg/dL [facility] HospitalFibrinogen Coag (PPP) [Mass/Vol]195 mg/dLLow 200-400Martin Memorial HospitalComment on above:Performed By: #### 55954-7 #### PACHECO Ferraro (26459) [facility] ([facility]) [address] [place], [place] [address]Khxumewxro Coag (PPP) [Mass/Vol]on 28-70-7771Rhyjltrpidcnou and review of laboratory resultsAbnormalUniversOklahoma Surgical Hospital – TulsaGas and Carbon monoxide and Electrolytes panel (BldA)on 21-31-8904Pdfkv gap 4 (BldA) [Moles/Vol]11[facility] HospitalBase excess Calc (Bld) [Moles/Vol]-3.0000 mmol/LLow-2.0 - 3.0 mmol/L [facility] HospitalCalcium.ionized (BldA) [Moles/Vol]1.18 mmol/L 1.10 - 1.33 mmol/[facility] HospitalChloride (BldA) [Moles/Vol] 106 mmol/L98 - 107 mmol/[facility] HospitalCO2 (Bld) [Partial pressure]38 mm[Hg][facility] HospitalGlucose [Mass/Vol]245 mg/dL High74 - 99 mg/dLOhioHealth Berger HospitalHCO3 (Bld) [Moles/Vol]22.0 mmol/L22.0 - 26.0 mmol/[facility] HospitalHematocrit Est (Bld) [Volume fraction]32.0 %Low41.0 - 52.0 %[facility] Hemoglobin (Bld) [Mass/Vol]10.5 g/dLLow13.5 - 17.5 g/dLUnMercy Health Anderson HospitalInhaled oxygen bmbocwmohhufd26 %[facility] Interpretation and review of laboratory resultsAbnormalUniWayne HospitalLactate (BldA) [Moles/Vol]2.0 mmol/L0.4 - 2.0 mmol/[facility] HospitalOxygen (Bld) [Partial pressure]202 mm[Hg]HighOhioHealth Berger HospitalOxyhemoglobin (BldA) [Mass fraction]97.7 %94.0 - 98.0 % [facility] HospitalpH (Bld)7.37 [pH]Low7.38 - 7.42 pHOhioHealth Berger HospitalPotassium (BldA) [Moles/Vol]3.1 mmol/LLow3.5 - 5.3 mmol/L [facility] HospitalSodium (BldA) [Moles/Vol]136 mmol/L136 - 145 mmol/[facility] HospitalUnMercy Health Anderson HospitalAnion gap 4 (BldA) [Moles/Vol]11 mmo/ZDtvazl96-51AsdqjssafnMartin Memorial HospitalComment on above:Performed By: #### 14705-9 #### PACHECO Ferraro ([id number]) [facility] ([facility]) [address] [place] [address] 96676Fpad excess Calc (Bld) [Moles/Vol]-3.0000 mmol/LLow-2.0-3.0 [facility] HospitalComment on above:Performed By: #### 03726-4 #### PACHECO Ferraro (75425) [facility] ([facility]) [address] [place] [address] 34190Wayzosy.ionized (BldA) [Moles/Vol]1.18 mmol/LNormal1.10-1.33 [facility] HospitalComment on above:Performed By: #### 70275-5 #### PACHECO Ferraro (22157) [facility] ([facility]) [address] [place] [address] 64742Edppixwa (BldA) [Moles/Vol]106 mmol/SCkyuqp18-592SytwukywkdUC West Chester HospitalComment on above:Performed By: #### 47371-3 #### PACHECO Ferraro ([id number]) [facility] ([facility]) [address] [place] [address] 95484LN8 (Bld) [Partial pressure]38 mm ZoIwzstv82-62TjjzimnlozMartin Memorial HospitalComment on above:Performed By: #### 04635-9 #### PACHECO Ferraro (48068) [facility] ([facility]) [address] [place] [address] 50703Snhcyqr [Mass/Vol]245 mg/nUWqqw97-59FebduiektmUC West Chester HospitalComment on above:Performed By: #### 54557-4 #### PACHECO Ferraro (79291) [facility] ([facility]) [address] [place] [address] 46827OBZ3 (Bld) [Moles/Vol]22.0 mmol/RFrnalo15.0-26.0Martin [facility] HospitalComment on above:Performed By: #### 72828-7 #### PACHECO Ferraro (72900) [facility] ([facility]) [address] [place] [address] 13223Jjiyqkwikk Est (Bld) [Volume fraction]32.0 %Low41.0-52.0 [facility] HospitalComment on above:Performed By: #### 83252-0 #### PACHECO Ferraro ([id number]) [facility] ([facility]) [address] [place] [address] 07773Drhdjvpfys (Bld) [Mass/Vol]10.5 g/dLLow13.5-17.5Martin [facility] HospitalComment on above:Performed By: #### 85777-7 #### PACHECO Ferraro (44119) [facility] ([facility]) [address] [place] [address] 05134Otbjypm oxygen szsjollztrbmb75 %NormalUnUC West Chester HospitalComment on above:Performed By: #### 91299-1 #### PACHECO Ferraro (73957) [facility] ([facility]) [address] [place] [address] 37297Johfjba (BldA) [Moles/Vol]2.0 mmol/LNormal0.4-2.0UnUC [facility] HospitalComment on above:Performed By: #### 55851-6 #### PACHECO Ferraro ([id number]) [facility] ([facility]) [address] [place] [address] 40766Hcyhph (Bld) [Partial pressure]202 mm GgImpd92-26CnbigniirrUC West Chester HospitalComment on above:Performed By: #### 07988-2 #### PACHECO Ferraro (77856) [facility] ([facility]) [address] [place] [address] 37697Jjyggqtyakleu (BldA) [Mass fraction]97.7 %Yjoobj75.0-98.0 [facility] HospitalComment on above:Performed By: #### 28269-5 #### PACHECO Ferraro ([id number]) [facility] ([facility]) [address] [place] [address] 15090xJ (Bld)7.37 [pH]Low7.38-7.42UnUC West Chester HospitalComment on above:Performed By: #### 89559-5 #### PACHECO Ferraro (23287) [facility] ([facility]) [address] [place] [address] 07464Xcrewqbtm (BldA) [Moles/Vol]3.1 mmol/LLow3.5-5.3UnUC [facility] HospitalComment on above:Performed By: #### 37147-5 #### PACHECO Ferraro ([id number]) [facility] ([facility]) [address] [place] [address] 78131Xdgqxc (BldA) [Moles/Vol]136 mmol/XPtmjdm079-670CbdrhgfcytUC West Chester HospitalComment on above:Performed By: #### 04063-4 #### PACHECO Ferraro ([id number]) [facility] ([facility]) [address] [place] [address] 25448Mbzrr gap 4 (BldA) [Moles/Vol]13UnMercy Health Anderson HospitalBase excess Calc (Bld) [Moles/Vol]-3.6000 mmol/LLow-2.0 - 3.0 mmol/L [facility] HospitalCalcium.ionized (BldA) [Moles/Vol]1.17 mmol/L 1.10 - 1.33 mmol/[facility] HospitalChloride (BldA) [Moles/Vol] 106 mmol/L98 - 107 mmol/[facility] HospitalCO2 (Bld) [Partial pressure]38 mm[Hg][facility] HospitalGlucose [Mass/Vol]229 mg/dL High74 - 99 mg/dLUnMercy Health Anderson HospitalHCO3 (Bld) [Moles/Vol]21.5 mmol/LLow22.0 - 26.0 mmol/[facility] HospitalHematocrit Est (Bld) [Volume fraction]32.0 %Low41.0 - 52.0 %[facility] Hemoglobin (Bld) [Mass/Vol]10.7 g/dLLow13.5 - 17.5 g/dLOhioHealth Berger HospitalInhaled oxygen zigqauaexzmat24 %[facility] Interpretation and review of laboratory resultsAbnormalUniWayne HospitalLactate (BldA) [Moles/Vol]1.9 mmol/L0.4 - 2.0 mmol/[facility] HospitalOxygen (Bld) [Partial pressure]197 mm[Hg]HighUnMercy Health Anderson HospitalOxyhemoglobin (BldA) [Mass fraction]97.9 %94.0 - 98.0 % [facility] HospitalpH (Bld)7.36 [pH]Low7.38 - 7.42 pHUnMercy Health Anderson HospitalPotassium (BldA) [Moles/Vol]3.6 mmol/L3.5 - 5.3 mmol/L [facility] HospitalSodium (BldA) [Moles/Vol]137 mmol/L136 - 145 mmol/[facility] HospitalUnMercy Health Anderson HospitalAnion gap 4 (BldA) [Moles/Vol]13 mmo/AUoyyvx21-21ZwyxbdbmfrUC West Chester HospitalComment on above:Performed By: #### 85462-3 #### PACHECO Ferraro ([id number]) [facility] ([facility]) [address] [place] [address] 40866Qkff excess Calc (Bld) [Moles/Vol]-3.6000 mmol/LLow-2.0-3.0 [facility] HospitalComment on above:Performed By: #### 10343-6 #### PACHECO Ferraro (80591) [facility] ([facility]) [address] [place] [address] 44346Hvdewwc.ionized (BldA) [Moles/Vol]1.17 mmol/LNormal1.10-1.33 [facility] HospitalComment on above:Performed By: #### 47622-3 #### PACHECO Ferraro (74903) [facility] ([facility]) [address] [place] [address] 52559Typrqtjn (BldA) [Moles/Vol]106 mmol/EBgzhpi45-092TlyqmsvtsaUC West Chester HospitalComment on above:Performed By: #### 86113-6 #### PACHECO Ferraro ([id number]) [facility] ([facility]) [address] [place] [address] 95795VW1 (Bld) [Partial pressure]38 mm TuKuuqlt44-06YashqbpaedMartin Memorial HospitalComment on above:Performed By: #### 19952-7 #### PACHECO Ferraro (14084) [facility] ([facility]) [address] [place] [address] 55536Rpqljca [Mass/Vol]229 mg/oZRwdm93-90UtviefxiqoUC West Chester HospitalComment on above:Performed By: #### 94702-5 #### PACHECO Ferraro (57188) [facility] ([facility]) [address] [place] [address] 58662EEV0 (Bld) [Moles/Vol]21.5 mmol/LLow22.0-26.0[facility] HospitalComment on above:Performed By: #### 81126-9 #### PACHECO Ferraro ([id number]) [facility] ([facility]) [address] [place] [address] 13127Srawelqdvj Est (Bld) [Volume fraction]32.0 %Low41.0-52.0 [facility] HospitalComment on above:Performed By: #### 98787-7 #### PACHECO Ferraro ([id number]) [facility] ([facility]) [address] [place] [address] 79206Ztrjgcwnje (Bld) [Mass/Vol]10.7 g/dLLow13.5-17.5UnUC [facility] HospitalComment on above:Performed By: #### 15603-9 #### PACHECO Ferraro (84858) [facility] ([facility]) [address] [place] [address] 44726Czyirns oxygen %NormalUnUC West Chester HospitalComment on above:Performed By: #### 02817-3 #### PACHECO Ferraro ([id number]) [facility] ([facility]) [address] [place] [address] 12468Vkxjfcb (BldA) [Moles/Vol]1.9 mmol/LNormal0.4-2.0UnUC [facility] HospitalComment on above:Performed By: #### 21601-7 #### PACHECO Ferraro (85783) [facility] ([facility]) [address] [place] [address] 90458Yijqly (Bld) [Partial pressure]197 mm KxIimx54-28YoxnnircxyUC [facility] HospitalComment on above:Performed By: #### [id number] #### PACHECO Ferraro ([id number]) [facility] ([facility]) [address] [place] [address] 72544Rgrdjbzkbdcrv (BldA) [Mass fraction]97.9 %Wbsllc46.0-98.0 [facility] HospitalComment on above:Performed By: #### [id number] #### PACHECO Ferraro ([id number]) [facility] ([facility]) [address] [place], [place] [address]jB (Bld)7.36 [pH]Low7.38-7.42[facility] HospitalComment on above:Performed By: #### 34324-0 #### PACHECO Ferraro ([id number]) [facility] ([facility]) [address] [place] [address] 32003Bprzaoiyw (BldA) [Moles/Vol]3.6 mmol/LNormal3.5-5.3UnUC [facility] HospitalComment on above:Performed By: #### [id number] #### PACHECO Ferraro ([id number]) [facility] ([facility]) [address] [place] [address] 37625Lkautp (BldA) [Moles/Vol]137 mmol/BJbmrdq319-416YzhrilavkiUC West [facility] HospitalComment on above:Performed By: #### 57569-8 #### PACHECO Ferraro ([id number]) [facility] ([facility]) [address] [place] [address] 19958Eunme gap 4 (BldA) [Moles/Vol]10[facility] HospitalBase excess Calc (Bld) [Moles/Vol]-1.3000 mmol/L-2.0 - 3.0 mmol/L [facility] HospitalCalcium.ionized (BldA) [Moles/Vol]1.15 mmol/L 1.10 - 1.33 mmol/[facility] HospitalChloride (BldA) [Moles/Vol] 106 mmol/L98 - 107 mmol/[facility] HospitalCO2 (Bld) [Partial pressure]40 mm[Hg][facility] HospitalGlucose [Mass/Vol]224 mg/dL High74 - 99 mg/dLUnMercy Health Anderson HospitalHCO3 (Bld) [Moles/Vol]23.7 mmol/L22.0 - 26.0 mmol/[facility] HospitalHematocrit Est (Bld) [Volume fraction]36.0 %Low41.0 - 52.0 %[facility] Hemoglobin (Bld) [Mass/Vol]12.0 g/dLLow13.5 - 17.5 g/dLOhioHealth Berger HospitalInhaled oxygen fotusybktqhsd62 %[facility] Interpretation and review of laboratory resultsAbnormalUniWayne HospitalLactate (BldA) [Moles/Vol]1.4 mmol/L0.4 - 2.0 mmol/[facility] HospitalOxygen (Bld) [Partial pressure]197 mm[Hg]HighOhioHealth Berger HospitalOxyhemoglobin (BldA) [Mass fraction]98.4 %High94.0 - 98.0 %[facility] HospitalpH (Bld)7.38 [pH]7.38 - 7.42 pHOhioHealth Berger HospitalPotassium (BldA) [Moles/Vol]4.1 mmol/L3.5 - 5.3 mmol/L [facility] HospitalSodium (BldA) [Moles/Vol]136 mmol/L136 - 145 mmol/[facility] HospitalUnMercy Health Anderson HospitalAnion gap 4 (BldA) [Moles/Vol]10 mmo/VFxmeem31-37QkqwslwlayUC West [place] HospitalComment on above:Performed By: #### 92135-9 #### PACHECO Ferraro ([id number]) [facility] ([facility]) [address] [place] [address] 80536Pduk excess Calc (Bld) [Moles/Vol]-1.3000 mmol/LNormal -2.0-3.0UnUC West [facility] HospitalComment on above:Performed By: #### 72766-8 #### PACHECO Ferraro ([id number]) [facility] ([facility]) [address] [place] [address] 65931Upmjzuy.ionized (BldA) [Moles/Vol]1.15 mmol/LNormal1.10-1.33 [facility] HospitalComment on above:Performed By: #### 22025-2 #### PACHECO Ferraro ([id number]) [facility] ([facility]) [address] [place] [address] 72476Gzjcigur (BldA) [Moles/Vol]106 mmol/XGhahlj39-388BnrsczhobdUC West Chester HospitalComment on above:Performed By: #### 89828-8 #### PACHECO Ferraro ([id number]) [facility] ([facility]) [address] [place] [address] 11221GS5 (Bld) [Partial pressure]40 mm AtCflwsd16-44MfhtwacmoyMartin Memorial HospitalComment on above:Performed By: #### 60844-7 #### PACHECO Ferraro ([id number]) [facility] ([facility]) [address] [place] [address] 79369Ckvrfey [Mass/Vol]224 mg/oDNcwu89-21QazznqzrqvMartin Memorial HospitalComment on above:Performed By: #### 24723-1 #### PACHECO Ferraro ([id number]) [facility] ([facility]) [address] [place] [address] 99099PTX8 (Bld) [Moles/Vol]23.7 mmol/DUlqash21.0-26.0[facility] HospitalComment on above:Performed By: #### 57717-1 #### PACHECO Ferraro ([id number]) [facility] ([facility]) [address] [place] [address] 94273Pzxsokwtok Est (Bld) [Volume fraction]36.0 %Low41.0-52.0 [facility] HospitalComment on above:Performed By: #### 29927-8 #### PACHECO Ferraro ([id number]) [facility] ([facility]) [address] [place] [address] 39873Wdmkukeotq (Bld) [Mass/Vol]12.0 g/dLLow13.5-17.5Martin Memorial HospitalComment on above:Performed By: #### 86464-8 #### PACHECO Ferraro ([id number]) [facility] ([facility]) [address] [place] [address] 98320Wadfcit oxygen taxviiouazkxo99 %NormalUnUC West Chester HospitalComment on above:Performed By: #### 66383-1 #### PACHECO Ferraro ([id number]) [facility] ([facility]) [address] [place], [place] [address]Yfhmbaw (BldA) [Moles/Vol]1.4 mmol/LNormal0.4-2.0UnUC West [facility] HospitalComment on above:Performed By: #### 89851-3 #### PACHECO Ferraro ([id number]) [facility] ([facility]) [address] [place], [place] [address]Sszwve (Bld) [Partial pressure]197 mm MfLpwp19-05FiacpafebnUC West Chester HospitalComment on above:Performed By: #### 34823-5 #### PACHECO Ferraro ([id number]) [facility] ([facility]) [address] [place] [address] 06583Rzmqfcusikblg (BldA) [Mass fraction]98.4 %High94.0-98.0 [facility] HospitalComment on above:Performed By: #### 40463-0 #### PACHECO Ferraro ([id number]) [facility] ([facility]) [address] [place] [address] 01400cX (Bld)7.38 [pH]Normal7.38-7.42Martin Memorial HospitalComment on above:Performed By: #### 47387-3 #### PACHECO Ferraro ([id number]) [facility] ([facility]) [address] [place] [address] 09299Tbwjhugjc (BldA) [Moles/Vol]4.1 mmol/LNormal3.5-5.3UnUC [facility] HospitalComment on above:Performed By: #### 82816-0 #### PACHECO Ferraro ([id number]) [facility] ([facility]) [address] [place] [address] 61205Tgxzuf (BldA) [Moles/Vol]136 mmol/PDvgdsy048-964IqnzizjtfdUC West Chester HospitalComment on above:Performed By: #### 87509-5 #### PACEHCO Ferraro ([id number]) [facility] ([facility]) [address] [place] [address] 32267Lfovm gap 4 (BldA) [Moles/Vol]11UnMercy Health Anderson HospitalBase excess Calc (Bld) [Moles/Vol]-2.3000 mmol/LLow-2.0 - 3.0 mmol/L [facility] HospitalCalcium.ionized (BldA) [Moles/Vol]1.20 mmol/L 1.10 - 1.33 mmol/[facility] HospitalChloride (BldA) [Moles/Vol] 105 mmol/L98 - 107 mmol/[facility] HospitalCO2 (Bld) [Partial pressure]38 mm[Hg][facility] HospitalGlucose [Mass/Vol]145 mg/dL High74 - 99 mg/dLUnMercy Health Anderson HospitalHCO3 (Bld) [Moles/Vol]22.5 mmol/L22.0 - 26.0 mmol/[facility] HospitalHematocrit Est (Bld) [Volume fraction]37.0 %Low41.0 - 52.0 %[facility] Hemoglobin (Bld) [Mass/Vol]12.4 g/dLLow13.5 - 17.5 g/dLOhioHealth Berger HospitalInhaled oxygen ltbsjytkcwkgh80 %[facility] Interpretation and review of laboratory resultsAbnormalUniWayne HospitalLactate (BldA) [Moles/Vol]1.1 mmol/L0.4 - 2.0 mmol/[facility] HospitalOxygen (Bld) [Partial pressure]209 mm[Hg]HighUnMercy Health Anderson HospitalOxyhemoglobin (BldA) [Mass fraction]98.0 %94.0 - 98.0 % [facility] HospitalpH (Bld)7.38 [pH]7.38 - 7.42 pHUnMercy Health Anderson HospitalPotassium (BldA) [Moles/Vol]2.9 mmol/LCritically low3.5 - 5.3 mmol/[facility] HospitalSodium (BldA) [Moles/Vol]136 mmol/L 136 - 145 mmol/[facility] HospitalUnMercy Health Anderson HospitalAnion gap 4 (BldA) [Moles/Vol]11 mmo/UZmtwmg05-42ZcjusrllgfUC West Chester HospitalComment on above:Performed By: #### 88810-5 #### PACHECO Ferraro ([id number]) [facility] ([facility]) [address] [place] [address] 01018Skby excess Calc (Bld) [Moles/Vol]-2.3000 mmol/LLow-2.0-3.0 [facility] HospitalComment on above:Performed By: #### 35265-8 #### PACHECO Ferraro ([id number]) [facility] ([facility]) [address] [place] [address] 73792Msyawls.ionized (BldA) [Moles/Vol]1.20 mmol/LNormal1.10-1.33 [facility] HospitalComment on above:Performed By: #### 73727-3 #### PACHECO Ferraro ([id number]) [facility] ([facility]) [address] [place] [address] 00148Mfkptxyy (BldA) [Moles/Vol]105 mmol/VGmjemq81-594HwdtqrlfqfUC West Chester HospitalComment on above:Performed By: #### 28615-8 #### PACHECO Ferraro ([id number]) [facility] ([facility]) [address] [place] [address] 76047DE9 (Bld) [Partial pressure]38 mm SrYuffys64-92TcvplsqtwlMartin Memorial HospitalComment on above:Performed By: #### 50005-6 #### PACHECO Ferraro ([id number]) [facility] ([facility]) [address] [place] [address] 87459Rdxrdoj [Mass/Vol]145 mg/yZIwva15-04QwofmrkkmuUC West [facility] HospitalComment on above:Performed By: #### 89233-2 #### PACHECO Ferraro ([id number]) [facility] ([facility]) [address] [place] [address] 17592ADO8 (Bld) [Moles/Vol]22.5 mmol/AZsznux24.0-26.0UnUC [facility] HospitalComment on above:Performed By: #### 12921-2 #### PACHECO Ferraro ([id number]) [facility]) [address] [place] [address] 81906Fxrsvermam Est (Bld) [Volume fraction]37.0 %Low41.0-52.0 [facility] HospitalComment on above:Performed By: #### 30059-4 #### PACHECO Ferraro ([id number]) [facility] ([facility]) [address] [place] [address] 59612Cokxbwmtjg (Bld) [Mass/Vol]12.4 g/dLLow13.5-17.5UnUC [facility] HospitalComment on above:Performed By: #### 01985-0 #### PACHECO Ferraro ([id number]) [facility] ([facility]) [address] [place] [address] 34048Xruvotz oxygen zcfokruhaumep98 %NormalUnUC West [facility] HospitalComment on above:Performed By: #### 11647-3 #### PACHECO Ferraro ([id number]) [facility] ([facility]) [address] [place] [address] 27750Ohhpllk (BldA) [Moles/Vol]1.1 mmol/LNormal0.4-2.0UnUC [facility] HospitalComment on above:Performed By: #### 81936-4 #### PACHECO Ferraro ([id number]) [facility]) [address] [place] [address] 31384Ctetri (Bld) [Partial pressure]209 mm LcCkxx15-01OidnfkdbivUC West [facility] HospitalComment on above:Performed By: #### 17865-7 #### PACHECO Ferraro ([id number]) [facility] ([facility]) [address] [place] [address] 84417Kklnqsdrjgwfx (BldA) [Mass fraction]98.0 %Osivut55.0-98.0 [facility] HospitalComment on above:Performed By: #### 50941-7 #### PACHECO Ferraro ([id number]) [facility] ([facility]) [address] [place] [address] 84744xO (Bld)7.38 [pH]Normal7.38-7.42[facility] Memorial HospitalComment on above:Performed By: #### 23414-3 #### PACHECO Ferraro ([id number]) [facility] ([facility]) [address] [place] [address] 23721Vrsqtnzuy (BldA) [Moles/Vol]2.9 mmol/LCritically low3.5-5.3 [facility] HospitalComment on above:Performed By: #### 36106-5 #### PACHECO Ferraro ([id number]) [facility] ([facility]) [address] [place] [address] 46755Zihsam (BldA) [Moles/Vol]136 mmol/QPxauzs605-760KneugzbafhUC West Chester HospitalComment on above:Performed By: #### 82396-4 #### PACHECO Ferraro ([id number]) [facility] ([facility]) [address] [place] [address] 41895Isosozk Test strip manual (Bld) [Mass/Vol]on 06-01-2023 Glucose [Mass/Vol]178 mg/fUCmkh88 - 99 mg/dLUnMercy Health Anderson Hospital Interpretation and review of laboratory resultsAbnoMagruder Memorial HospitalUnMercy Health Anderson HospitalGlucose [Mass/Vol]178 mg/fEAopy84-26 [facility] HospitalComment on above:Performed By: #### 17962-5 #### PACHECO Ferraro ([id number]) [facility] ([facility]) [address] [place] [address] 83524Byzxday [Mass/Vol]99 mg/dL74 - 99 mg/dLUnMercy Health Anderson HospitalInterpretation and review of laboratory resultsNoAvita Health System Ontario HospitalGlucose [Mass/Vol]99 mg/eVJpddzp61-21WgdfktsavlUC West [facility] HospitalComment on above: Performed By: #### 2341-6 #### PACHECO Ferraro ([id number]) [facility] ([facility]) [address] [place], [place] [address]Rwtbaypnbtj 67-41-3147Uekqnebqk [Mass/Vol]1.74 mg/dL1.60 - 2.40 mg/dLOhioHealth Berger HospitalMagnesium [Mass/Vol]1.74 mg/dLNormal 1.60-2.40[facility] HospitalComment on above:Performed By: #### 82009-1 #### PACHECO Ferraro ([id number]) [facility] ([facility]) [address] [place], [place] [address]Sspkyowlr [Mass/Vol]on 70-22-0886Rrnrwoftjhamuv and review of laboratory resultsNormalUOhioHealth O'Bleness HospitalVERAB/VERIFY ABORHon 15-97-1186XNV group Nom (Bld)ONAvita Health System Galion HospitalComment on above:Performed By: #### VERAB #### PACHECO Ferraro ([id number]) [facility] ([facility]) [address] [place] [address] 48903X Ag Ql (Bld)NegativeNoWood County HospitalComment on above:Performed By: #### VERAB #### PACHECO Ferraro ([id number]) [facility] ([facility]) [address] [place] [address] 43996Gqecsy ABO/Rh Group Test (VERAB)on 87-20-8700IKH group Nom (Bld)OUParkwood HospitalD Ag Ql (Bld)NegativeOhioHealth Mansfield HospitalXR tomography Unspecified body regionon 23-23-8791Mfyoi images are not reportable by radiology and will not be interpreted by Radiologists.IMAGINGThese images are not reportable by radiology and will not be interpreted by Radiologists.IMAGINGNo Panel InformationOrdered By: Antione Hong on 61-62-6422Uoionc Mttx66JZYKkjrcfkqtlProtestant Hospital Work Phone: p Bnqp9lfabsxiHhtwvcbhhfOhioHealth Berger Hospital Work Phone: P Oaluhl181 [facility] Work Phone: P Hjaxi484 [facility] Work Phone: PR Eqhgfbdg706 [facility] Work Phone: Q Ztwmz727 [facility] Work Phone: QRS Ahkmi13dccfgUkbngyhzyhNeuroDiagnostic Institute Work Phone: QRS Eiuognon26 [facility] Work Phone: QT Beldlgby656 [facility] Work Phone: QTC Calculation(Bazett)414 [facility] Work Phone: QTC Mdzrpwealx809 [facility] Work Phone: [phone] [place]-20deT[facility] Work Phone: T Iysb57lblpyktXppgsidaszOhioHealth [facility]in [facility] Hospital Work Phone: T Akzthi075 [facility] Work Phone: [phone] Tqbf66EIWApmgdervooProtestant Hospital Work Phone: [facility] Work Phone: No Panel Informationon 13-08-2150Swdrpg sinus rhythm Nonspecific T wave abnormality No previous ECGs available Confirmed by Antione Hong ([id number]) on 05/18/2023 4:34:09 PMAntione Pittman MD - 05/18/2023 Normal sinus rhythm Nonspecific T wave abnormality No previous ECGs available Confirmed by Antione Hong ([id number]) on 05/18/2023 4:34:09 PM [facility] Work Phone: Basic metabolic 2000 panelon 44-76-7813Clujz gap [Moles/Vol]15 mmol/IKpdjqd22-41KiyzqvvnobMartin Memorial Hospital Comment on above:Performed By: #### 59562-0 #### PACHECO Ferraro ([id number]) [facility] ([facility]) [address] [place], [place] [address]Tctmspz [Mass/Vol]10.1 mg/dLNormal8.6-10.6Martin Memorial HospitalComment on above:Performed By: #### 42871-5 #### PACHECO Ferraro ([id number]) [facility] ([facility]) [address] [place], [place] [address]Zphvztjx [Moles/Vol]107 mmol/WGjiarw41-301HnkxshzdbaUC West Chester HospitalComment on above:Performed By: #### 90751-3 #### PACHECO Ferraro ([id number]) [facility] ([facility]) [address] [place] [address] 68559LW1 [Moles/Vol]23 mmol/WHddyua87-99KinmuoiumiUC West Chester HospitalComment on above:Performed By: #### 96771-7 #### PACHECO Ferraro ([id number]) [facility] ([facility]) [address] [place], [place] [address]Dqggxlebud [Mass/Vol]0.73 mg/dLNormal0.50-1.30[facility] Memorial HospitalComment on above:Performed By: #### 61493-6 #### PACHECO Ferraro ([id number]) [facility] ([facility]) [address] [place], [place] [address]IWF/1.73 sq M.predicted MDRD (S/P/Bld) [Vol rate/Area] mL/min/{1.73_m2}Normal>60UnUC West Chester HospitalComment on above:Result Comment: Calculations of estimated GFR are performed using the 2020 CKD-EPI Study Refit equation without the race variable for the IDMS-Traceable creatinine methods. https://jasn.asnjournals.org/content//ASN.6203793286Thmgpvjnq By: #### 98677-9 #### PACHECO Ferraro ([id number]) [facility] ([facility]) [address] [place], [place] [address]Joowcrm [Mass/Vol]89 mg/nGOebatb33-52QxlbwdjugyMartin Memorial HospitalComment on above:Performed By: #### 33297-8 #### PACHECO Ferraro ([id number]) [facility] ([facility]) [address] [place], [place] [address]Jwostembz [Moles/Vol]3.9 mmol/LNormal3.5-5.3[facility] Memorial HospitalComment on above:Performed By: #### 63026-2 #### PACHECO Ferraro ([id number]) [facility] ([facility]) [address] [place] [address] 86048Mvecvi [Moles/Vol]141 mmol/ZIggaew654-662RojblwjaquUC West Chester HospitalComment on above:Performed By: #### 87913-5 #### PACHECO Ferraro ([id number]) [facility] ([facility]) [address] [place] [address] 96002Jgqo nitrogen [Mass/Vol]13 mg/dLNormal6-23Martin Memorial HospitalComment on above:Performed By: #### 35586-7 #### PACHECO Ferraro ([id number]) [facility] ([facility]) [address] [place] [address] 90727Ehjbx type and Indirect antibody screen panel (Bld)on 23-91-9724JWG group Nom (Bld)ONormalMartin Memorial HospitalComment on above:Performed By: #### 39630-3 #### PACHECO Ferraro ([id number]) [facility] ([facility]) [address] [place] [address] 89739Mncxx group antibody screen QlNegativeNoWood County HospitalComment on above:Performed By: #### 74895-7 #### PACHECO Ferraro ([id number]) [facility] ([facility]) [address] [place] [address] 93879T Ag Ql (Bld)NegativeNoWood County HospitalComment on above:Result Comment: 2nd ABO test required. Order and Collect VERABPerformed By: #### 09681-7 #### PACHECO Ferraro ([id number]) [facility] ([facility]) [address] [place] [address] 402[address]OTF panel Auto (Bld)on 05-12-8813Cjqdlkyebto distribution width (RBC) [Ratio]14.4 %Xveebu73.5-14.5Martin Memorial HospitalComment on above:Performed By: #### 28198-1 #### PACHECO Ferraro ([id number]) [facility] ([facility]) [address] [place] [address] 66511Hfgsuplczf (Bld) [Volume fraction]42.8 %Owkwro16.0-52.0 [facility] HospitalComment on above:Performed By: #### 74944-2 #### PACHECO Ferraro ([id number]) [facility] ([facility]) [address] [place] [address] 92624Dtumyenxzu (Bld) [Mass/Vol]14.3 g/pZQzyxgd15.5-17.5UnUC [facility] HospitalComment on above:Performed By: #### 53647-1 #### PACHECO Ferraro ([id number]) [facility] ([facility]) [address] [place] [address] 86285XZN (RBC) [Entitic mass]29.3 ixFtumcu98.0-34.0UnUC [facility] HospitalComment on above:Performed By: #### 53278-7 #### PACHECO Ferraro ([id number]) [facility] ([facility]) [address] [place] [address] 88081OVMA (RBC) [Mass/Vol]33.4 g/eLGhjnvg01.0-36.0UnUC [facility] HospitalComment on above:Performed By: #### 54242-0 #### PACHECO Ferraro ([id number]) [facility] ([facility]) [address] [place] [address] 97881MFL (RBC) [Entitic vol]88 jGYfbjbg22-686BytybebtkzUC West Chester HospitalComment on above:Performed By: #### 38556-6 #### PACHECO Ferraro ([id number]) [facility] ([facility]) [address] [place], [place] [address]Rgubzytqc RBC/100 WBC (Bld) [Ratio]0.0 /100 WBCsNormal0.0-0.0 [facility] HospitalComment on above:Performed By: #### 77776-3 #### PACHECO Ferraro ([id number]) [facility] ([facility]) [address] [place], [place] [address]Kzhmmpvke (Bld) [#/Vol]287 x10*3/oRZindet000-004RwmfhwnhnmUC West Chester HospitalComment on above:Performed By: #### 87768-5 #### PACHECO Ferraro ([id number]) [facility] ([facility]) [address] [place], [place] [address]JKM (Bld) [#/Vol]4.88 x10*6/uLNormal4.50-5.90UnUC [facility] HospitalComment on above:Performed By: #### 65436-5 #### PACHECO Ferraro ([id number]) [facility] ([facility]) [address] [place] [address] 87912DAB (Bld) [#/Vol]6.6 x10*3/uLNormal4.4-11.3UnUC [facility] HospitalComment on above:Performed By: #### 27263-4 #### PACHECO Ferraro ([id number]) [facility] ([facility]) [address] [place], [place] [address]QGR 12-LEADon 25-32-9596IMW 12-LEADVentricular Rate 73 Atrial Rate 73 P-R Interval 144 QRS Duration 86 Q-T Interval 376 QTC Calculation(Bazett) 414 P [place] 2 R [place] -20 T [place] 15 QRS Count 12 Q Onset 213 P Onset 141 P Offset 186 T Offset 401 QTC Fredericia 401 Diagnosis Normal sinus rhythm Nonspecific T wave abnormality No previous ECGs available Confirmed by Antione Hong ([id number]) on 05/18/2023 4:34:09 PMNMayo Clinic Health Systemtaphylococcus aureus.methicillin resistant isolateon 05-17-2023 MRSA isol Org specific cx Ql (Nose)Test: Staphylococcus aureus/MRSA colonization, Culture Specimen Source: Anterior Nares Specimen Type: Swab Specimen Date: 05/17/2023 1:43 PM Result Date: 05/19/2023 8:32 AM Result Status: Final result Abnormal: Yes Resulting Lab: [facility] [address] [facility] [address] CULTURE Isolated: Methicillin Susceptible Staphylococcus aureus (MSSA) (Abnormal) AbnormalMartin Memorial HospitalComment on above:Performed By: #### 71523-2 #### PACHECO Ferraro ([id number]) [facility] ([facility]) [address] [place] [address] 50290WwO9i (Bld) [Mass fraction]on 07-98-3070Yowphub glucose Estimated from glycated hemoglobin (Bld) [Mass/Vol]148 mg/dLNormalNot EstablishedMartin Memorial HospitalComment on above:Order Comment: Diagnosis of Diabetes-Adults Non-Diabetic: < or = 5.6% Increased risk for developing diabetes: 5.7-6.4% Diagnostic of diabetes: > or = 6.5% Monitoring of Diabetes Age (y)....................... Therapeutic Goal (%) Adults: >18.........................<7.0 Pediatrics: 13-18...................<7.5 Pediatrics: 7-12....................<8.0 Pediatrics: 0-6..................... 7.5-8.5 [place]. Diabetes Care 33(S1)Mar 2009Performed By: #### 4548-4 #### PACHECO Ferraro ([id number]) [facility] ([facility]) [address] [place] [address] 704[address]Rywenyqmag A1c/Hemoglobin.totalon 22-43-6137LdS4i (Bld) [Mass fraction]6.8 %[facility] Cleveland-FairhillComment on above:Order Comment: Diagnosis of Diabetes-Adults Non-Diabetic: < or = 5.6% Increased risk for developing diabetes: 5.7-6.4% Diagnostic of diabetes: > or = 6.5% Monitoring of Diabetes Age (y)....................... Therapeutic Goal (%) Adults: >18.........................<7.0 Pediatrics: 13-18...................<7.5 Pediatrics: 7-12....................<8.0 Pediatrics: 0-6..................... 7.5-8.5 [place]. Diabetes Care 33(S1)Mar 2009Performed By: #### [id number] #### PACHECO Ferraro ([id number]) [facility] ([facility]) [address] [place] [address] [id number] lumbar spine wo [facility] [id number] lumbar spine wo [facility] Main [address] [address] MRI Report Signed Patient: Melvin Baer MR#: [id number] : 1960 Acct:[id number] Age/Sex: 62 / M ADM Date: 12/15/22 Loc: [facility] Room: Type: [facility] Attending Dr: Sully Barney NP Copies to: [...] Prakash Zavala M.D.12/15/2022 3:12 PM Dictation Location: [place] [address] Transcribed By: [facility] 12/15/22 1512 Dictated By: Prakash Zavala II, MD 12/15/22 1500 Signed By: 12/15/22 1512[facility] min 2V(w/wo pelvis)*on [id number] hip RT min 2V(w/wo pelvis)*[facility] Main [place] [address] [place] [address] XRay Report Signed Patient: Melvin Baer MR#: [id number] : 1960 Acct:[id number] Age/Sex: 62 / M ADM Date: 10/16/22 Loc: XD Room: Type: [facility] Attending Dr: Abel Sandoval MD Copies to: Able Sandoval MD Ordering Provider: Abel Sandoval MD [...] Raulito Abbasi M.D.10/16/2022 2:39 PM Dictation Location: [facility] Transcribed By: [facility] 10/16/22 143 Dictated By: Raulito Abbasi DO 10/16/22 1437 Signed By: 10/16/22 1439[facility] AP/LAT/FLX/EXTon [id number] lumbar spine AP/LAT/FLX/EXT[facility] Main [place] [address] [place] [address] XRay Report Signed Patient: Melvin Baer MR#: [id number] : 1960 Acct:[id number] Age/Sex: 62 / M ADM Date: 10/16/22 Loc: XD Room: Type: [facility] Attending Dr: Abel Sandoval MD Copies to: [...] West Jr., D.OAmy10/16/2022 2:44 PM Dictation Location: [facility] Transcribed By: [facility] 10/16/22 1444 Dictated By: Roberto West Jr, DO 10/16/22 1440 Signed By: 10/16/22 1444[facility] HospitalCBC AUT[facility] DIFFon 07-19-2022 BASO #0.1 103/ulNormal0.0-0.1[facility] WestComment on above:Performed By: #### CBC #### [facility] [address] [place] [address] Dr. Mariann OdomBasophils/100 WBC (Bld)0.9 %Normal0.2-2.0The [facility] Comment on above:Performed By: #### CBC #### [facility] [address] [place] [address] Dr. Mariann Tolbert #0.3 103/ulNormal0.0-0.7The [facility] DaytonComment on above: Performed By: #### CBC #### [facility] [address] [place] [address] Dr. Mariann Wyattosinophils/100 WBC (Bld)4.9 %Normal0.9-7.0The [facility] Comment on above:Performed By: #### CBC #### [facility] [address] [place] [address] Dr. Mariann Wyattrythrocyte distribution width (RBC) [Ratio]14.8 %Mybiyh42.0-15.0 [facility] WestComment on above:Performed By: #### CBC #### [facility] [address] [place] [address] Dr. Mariann OdomHematocrit (Bld) [Volume fraction]41.5 %Critically low42.0-54.0 [facility] WestComment on above:Performed By: #### CBC #### [facility] [address] [place] [address] Dr. Mariann OdomHemoglobin (Bld) [Mass/Vol]13.3 g/dLCritically low14.0-18.0[facility] WestComment on above:Performed By: #### CBC #### [facility] [address] [place] [address] Dr. Mariann Guy #0.02 10e3/ulNormal0.00-0.03The [facility] DaytonComment on above:Performed By: #### CBC #### [facility] [address] [place] [address] Dr. Mariann Guy %0.4 %Normal0.0-0.5The [facility] DaytonComment on above: Performed By: #### CBC #### [facility] [address] [place] [address] Dr. Mariann Hernandez #1.8 103/ulNormal1.2-3.8The [facility] DaytonComment on above:Performed By: #### CBC #### [facility] [address] [place] [address] Dr. Mariann Younghocytes/100 WBC (Bld)33.1 %Sesoat79.5-60.0The [facility] DaytonComment on above:Performed By: #### CBC #### [facility] [address] [place] [address] Dr. Mraiann Shin DIFF REQNONormalThe [facility] DaytonComment on above: Performed By: #### CBC #### [facility] [address] [place] [address] Dr. Mariann Dahl (RBC) [Entitic mass]28.1 qxQyslnk35.9-34.0The [facility] DaytonComment on above:Performed By: #### CBC #### [facility] [address] [place] [address] Dr. Mariann Navarro (RBC) [Mass/Vol]32.0 g/hKXvtmkw51.9-35.2The [facility] DaytonComment on above:Performed By: #### CBC #### [facility] [address] [place] [address] Dr. Mariann Chacon (RBC) [Entitic vol]87.7 tTDpcdia68.0-94.0The [facility] DaytonComment on above:Performed By: #### CBC #### [facility] [address] [place] [address] Dr. Mariann Zabala #0.6 103/ulNormal0.3-0.8The [facility] DaytonComment on above:Performed By: #### CBC #### [facility] [address] [place] [address] Dr. Mariann Scruggsocytes/100 WBC (Bld)11.7 %Normal1.7-12.0The [facility] Comment on above:Performed By: #### CBC #### [facility] [address] [place] [address] Dr. Mariann Faria #2.6 103/ulNormal1.4-6.5The [facility] DaytonComment on above:Performed By: #### CBC #### [facility] [address] [place] [address] Dr. Mariann Orrutrophils/100 WBC (Bld)49.0 %Stqmtw64.0-75.0The [facility] DaytonComment on above:Performed By: #### CBC #### [facility] [address] [place] [address] Dr. Mariann Schraderlet mean volume (Bld) [Entitic vol]11.2 fLNormal9.5-13.5The [facility] DaytonComment on above:Performed By: #### CBC #### [facility] [address] [place] [address] Dr. Mariann HardwickT301 103/qyEgfyoz483-580Xpf [facility] DaytonComment on above: Performed By: #### CBC #### [facility] [address] [place] [address] Dr. Mariann dOomRBC4.73 106/ulNormal4.70-6.10The [facility] DaytonComment on above:Performed By: #### CBC #### [facility] [address] [place] [address] Dr. Mariann OdomWBC5.3 103/ulNormal4.0-11.0The [facility] DaytonComment on above: Performed By: #### CBC #### [facility] [address] [place] [address] Dr. Mariann Salazar 14(COMP METB)on 54-70-0855Mzkjose [Mass/Vol]4.0 g/dLNormal 3.4-5.0The [facility] DaytonComment on above:Performed By: #### CMP #### [facility] [address] [place] [address] Dr. Mariann OdomAlbumin/Globulin [Mass ratio]1.0 {ratio}NormalThe [facility] DaytonComment on above:Performed By: #### CMP #### [facility] [address] [place] [address] Dr. Mariann BirdP [Catalytic activity/Vol]99 U/HZiczkv57-835Rsu [facility] DaytonComment on above:Performed By: #### CMP #### [facility] [address] [place] [address] Dr. Mariann BirdT [Catalytic activity/Vol]36 U/FGfiapa55-06Frz [facility] DaytonComment on above:Performed By: #### CMP #### [facility] [address] [place] [address] Dr. Mariann Valentineon gap [Moles/Vol]10.6 mmol/LNormalThe [facility] Comment on above:Performed By: #### CMP #### [facility] [address] [place] [address] Dr. Mariann OdomAST [Catalytic activity/Vol]21 U/GQcmbrt83-81Dvj [facility] DaytonComment on above:Performed By: #### CMP #### [facility] [address] [place] [address] Dr. Mariann OdomBilirubin [Mass/Vol]0.2 mg/dLNormal0.2-1.0The [facility] Comment on above:Performed By: #### CMP #### [facility] [address] [place] [address] Dr. Mariann OdomCalcium [Mass/Vol]9.6 mg/dLNormal8.5-10.1The [facility] Comment on above:Performed By: #### CMP #### [facility] [address] [place] [address] Dr. Mariann OdomChloride [Moles/Vol]102 mmol/YPxjimd69-298Vqv [facility] Comment on above:Performed By: #### CMP #### [facility] [address] [place] [address] Dr. Yilan ChangCO2 [Moles/Vol]30.5 mmol/MSwpdnp39.0-32.0The [facility] Comment on above:Performed By: #### CMP #### [facility] [address] [place] [address] Dr. Mariann OdomCreatinine [Mass/Vol]0.93 mg/dLNormal0.70-1.30The [facility] DaytonComment on above:Performed By: #### CMP #### [facility] [address] [place] [address] Dr. Mariann WyattGFR-AF CAMBODIAN>60Normal>=60The [facility] DaytonComment on above:Performed By: #### CMP #### [facility] [address] [place] [address] Dr. Mariann WyattGFR-NON AF CAMBODIAN>60Normal>=60The [facility] DaytonComment on above:Performed By: #### CMP #### [facility] [address] [place] [address] Dr. Mariann OdomGlobulin (S) [Mass/Vol]3.9 g/dLNormalThe [facility] DaytonComment on above:Performed By: #### CMP #### [facility] [address] [place] [address] Dr. Mariann OdomGlucose [Mass/Vol]126 mg/dLCritically jlhz26-760CijRegency Hospital Cleveland WestComment on above:Performed By: #### CMP #### [facility] [address] [place] [address] Dr. Mariann OdomPotassium [Moles/Vol]4.1 mmol/LNormal3.5-5.1The [facility] Comment on above:Performed By: #### CMP #### [facility] [address] [place] [address] Dr. Mariann OdomProtein [Mass/Vol]7.9 g/dLNormal6.4-8.2The [facility] Comment on above:Performed By: #### CMP #### [facility] [address] [place] [address] Dr. Mariann OdomSodium [Moles/Vol]139 mmol/STsawsu790-653Zdz [facility] Comment on above:Performed By: #### CMP #### [facility] [address] [place] [address] Dr. Mariann Garibay nitrogen [Mass/Vol]16.0 mg/dLNormal7.0-18.0The [facility] DaytonComment on above:Performed By: #### CMP #### [facility] [address] [place] [address] Dr. Mariann Garibay nitrogen/Creatinine [Mass ratio]17.2 mg/mgNormalThe [facility] DaytonComment on above:Performed By: #### CMP #### [facility] [address] [place] [address] Dr. Mariann Douglas RATE WESTERGRENon 69-93-3641BJL RATE13 mm/hrNormal<=20The [facility] DaytonComment on above:Performed By: #### SEDR #### [facility] [address] [place] [address] Dr. Mariann Alaniz AUTO DIFFon 58-41-2122UDSF #0.1 103/ulNormal0.0-0.1The [facility] DaytonComment on above:Performed By: #### CBC #### [facility] [address] [place] [address] Dr. Mariann OdomBasophils/100 WBC (Bld)0.9 %Normal0.2-2.0[facility] Comment on above:Performed By: #### CBC #### [facility] [address] [place] [address] Dr. Mariann Tolbert #0.2 103/ulNormal0.0-0.7The [facility] DaytonComment on above: Performed By: #### CBC #### [facility] [address] [place] [address] Dr. Mariann Wyattosinophils/100 WBC (Bld)4.2 %Normal0.9-7.0[facility] Comment on above:Performed By: #### CBC #### [facility] [address] [place] [address] Dr. Yilan ChangErythrocyte distribution width (RBC) [Ratio]14.3 %Xrmtoa05.0-15.0 The [facility] DaytonComment on above:Performed By: #### CBC #### [facility] [address] [place] [address] Dr. Mariann OdomHematocrit (Bld) [Volume fraction]41.7 %Critically low42.0-54.0 The [facility] DaytonComment on above:Performed By: #### CBC #### [facility] [address] [place] [address] Dr. Mariann OdomHemoglobin (Bld) [Mass/Vol]13.6 g/dLCritically low14.0-18.0The [facility] on above:Performed By: #### CBC #### [facility] [address] [place] [address] Dr. Mariann Guy #0.01 10e3/ulNormal0.00-0.03The [facility]Comformerly [facility] on above:Performed By: #### CBC #### [facility] [address] [place] [address] Dr. Mariann Guy %0.2 %Normal0.0-0.5The [facility]Comformerly [facility] on above: Performed By: #### CBC #### [facility] [address] [place] [address] Dr. Mariann YoungH #1.6 103/ulNormal1.2-3.8The [facility]Comformerly [facility] on above:Performed By: #### CBC #### [facility] [address] [place] [address] Dr. Mariann Peñalozamphocytes/100 WBC (Bld)28.8 %Qzwksl13.5-60.0The [facility] on above:Performed By: #### CBC #### [facility] [address] [place] [address] Dr. Mariann DiazUAL DIFF REQNONormalThe [facility] DaytonComment on above: Performed By: #### CBC #### [facility] [address] [place] [address] Dr. Mariann Navarro (RBC) [Entitic mass]27.7 nzPyxlyx16.9-34.0The [facility] DaytonComment on above:Performed By: #### CBC #### [facility] [address] [place] [address] Dr. Mariann Navarro (RBC) [Mass/Vol]32.6 g/jWIrjlub79.9-35.2The [facility] DaytonComment on above:Performed By: #### CBC #### [facility] [address] [place] [address] Dr. Mariann Navarro (RBC) [Entitic vol]84.9 lIAuqvws65.0-94.0The [facility] DaytonComment on above:Performed By: #### CBC #### [facility] [address] [place] [address] Dr. Mariann Zabala #0.6 103/ulNormal0.3-0.8The [facility] DaytonComment on above:Performed By: #### CBC #### [facility] [address] [place] [address] Dr. Mariann Scruggsocytes/100 WBC (Bld)10.4 %Normal1.7-12.0The [facility] Comment on above:Performed By: #### CBC #### [facility] [address] [place] [address] Dr. Mariann Faria #3.2 103/ulNormal1.4-6.5The [facility] DaytonComment on above:Performed By: #### CBC #### [facility] [address] [place] [address] Dr. Mariann Orrutrophils/100 WBC (Bld)55.5 %Rejoxl73.0-75.0The [facility] DaytonComment on above:Performed By: #### CBC #### [facility] [address] [place] [address] Dr. Mariann Schraderlet mean volume (Bld) [Entitic vol]10.8 fLNormal9.5-13.5The [facility] DaytonComment on above:Performed By: #### CBC #### [facility] [address] [address] [address] Mariann OdomPLT269 103/wfEqnige264-118Kek [facility] DaytonComment on above: Performed By: #### CBC #### [facility] [address] [place] [address] Dr. Mariann OdomRBC4.91 106/ulNormal4.70-6.10The [facility] DaytonComment on above:Performed By: #### CBC #### [facility] [address] [place] [address] Dr. Mariann OdomWBC5.7 103/ulNormal4.0-11.0The [facility] Centerment on above: Performed By: #### CBC #### [facility] [address] [place] [address] Dr. Mariann ThapaF 14(COMP METB)on 81-35-8139Jbdzpby [Mass/Vol]3.6 g/dLNormal 3.4-5.0The [facility] DaytonComment on above:Performed By: #### CMP #### [facility] [address] [place] [address] Dr. Mariann OdomAlbumin/Globulin [Mass ratio]1.1 {ratio}NormalThe [facility] on above:Performed By: #### CMP #### [facility] [address] [place] [address] Dr. Mariann Gomez [Catalytic activity/Vol]95 U/EJvgnli68-565Hna [facility] on above:Performed By: #### CMP #### [facility] [address] [place] [address] Dr. Mariann Vela [Catalytic activity/Vol]39 U/OAwtikj87-44Mkr [facility] Centerment on above:Performed By: #### CMP #### [facility] [address] [place] [address] Dr. Mariann Kasper gap [Moles/Vol]11.1 mmol/LNormalThe [facility] on above:Performed By: #### CMP #### [facility] [address] [address] [address] Mariann OdomAST [Catalytic activity/Vol]25 U/RPhcrmw19-92Yvc [facility] DaytonComment on above:Performed By: #### CMP #### [facility] [address] [address] [address] Mariann OdomBilirubin [Mass/Vol]0.3 mg/dLNormal0.2-1.0The [facility] Comment on above:Performed By: #### CMP #### [facility] [address] [address] [address] Mariann OdomCalcium [Mass/Vol]9.0 mg/dLNormal8.5-10.1The [facility] Comment on above:Performed By: #### CMP #### [facility] [address] [address] [address] Mariann OdomChloride [Moles/Vol]104 mmol/RJpyged61-533Kos [facility] Comment on above:Performed By: #### CMP #### [facility] [address] [address] [address] Mariann OdomCO2 [Moles/Vol]27.8 mmol/PEvsnib75.0-32.0The [facility] Comment on above:Performed By: #### CMP #### [facility] [address] [address] [address] Mariann OdomCreatinine [Mass/Vol]0.81 mg/dLNormal0.70-1.30The [facility] DaytonComment on above:Performed By: #### CMP #### [facility] [address] [place] [address] Dr. Mariann WyattGFR-AF CAMBODIAN>60Normal>=60The [facility] DaytonComment on above:Performed By: #### CMP #### [facility] [address] [address] [address] Mariann WyattGFR-NON AF CAMBODIAN>60Normal>=60The [facility] DaytonComment on above:Performed By: #### CMP #### [facility] [address] [address] [address] Mariann OdomGlobulin (S) [Mass/Vol]3.4 g/dLNormProtestant HospitalComment on above:Performed By: #### CMP #### [facility] [address] [address] [address] Mariann OdomGlucose [Mass/Vol]189 mg/dLCritically fecq85-543Fds [facility] DaytonComment on above:Performed By: #### CMP #### [facility] [address] [address] [address] Mariann OdomPotassium [Moles/Vol]3.9 mmol/LNormal3.5-5.1The [facility] Comment on above:Performed By: #### CMP #### [facility] [address] [address] [address] Mariann OdomProtein [Mass/Vol]7.0 g/dLNormal6.4-8.2The [facility] Comment on above:Performed By: #### CMP #### [facility] [address] [place] [address] Dr. Mariann OdomSodium [Moles/Vol]139 mmol/IHwmkam798-009Zpx [facility] Comment on above:Performed By: #### CMP #### [facility] [address] [place] [address] Dr. Mariann OdomUrea nitrogen [Mass/Vol]14.0 mg/dLNormal7.0-18.0The [facility] DaytonComment on above:Performed By: #### CMP #### [facility] [address] [place] [address] Dr. Mariann Garibay nitrogen/Creatinine [Mass ratio]17.3 mg/mgNormalThGood Samaritan HospitalComment on above:Performed By: #### CMP #### [facility] [address] [address] [address] Mariann OdomSED RATE WESTERGRENon 15-67-3499WTI RATE24 mm/hrCritically high <=20The [facility] DaytonComment on above:Performed By: #### CMP #### [facility] [address] [place] [address] Dr. Mariann OdomGLYCOHEMOGLOBIN A1Con [id number] RECOMMENDATIONSEE BELOWNormal The [facility] DaytonComment on above:Result Comment: ADA RECOMMENDED LIMIT 4.0 - 6.0 ADA THERAPEUTIC TARGET < 7.0 ACTION SUGGESTED > 7.0Performed By: #### A1C #### [facility] [address] [place] [address] Dr. Mariann OdomGlucose [Mass/Vol]263 mg/dLNormalThe [facility] DaytonComment on above:Performed By: #### A1C #### [facility] [address] [place] [address] Dr. Mariann OdmoHbA1c (Bld) [Mass fraction]10.8 %Critically high4.5-6.2The [facility] DaytonComment on above:Performed By: #### A1C #### [facility] [address] [place] [address] Dr. Mariann OdomCBC AUTO DIFFon [id number] #0.0 103/ulNormal0.0-0.1The [facility] DaytonComment on above:Performed By: #### CMP #### [facility] [address] [place] [address] Dr. Mariann OdomBasophils/100 WBC (Bld)0.6 %Normal0.2-2.0The [facility] Comment on above:Performed By: #### CMP #### [facility] [address] [place] [address] Dr. Mariann Tolbert #0.4 103/ulNormal0.0-0.7The [facility] DaytonComment on above: Performed By: #### CMP #### [facility] [address] [place] [address] Dr. Mariann Wyattosinophils/100 WBC (Bld)5.0 %Normal0.9-7.0The [facility] Comment on above:Performed By: #### CMP #### [facility] [address] [place] [address] Dr. Mariann Wyattrythrocyte distribution width (RBC) [Ratio]13.5 %Bwhzse66.0-15.0 The [facility] DaytonComment on above:Performed By: #### CMP #### [facility] [address] [place] [address] Dr. Mariann OdomHematocrit (Bld) [Volume fraction]42.2 %Sxilxy24.0-54.0The [facility] DaytonComment on above:Performed By: #### CMP #### [facility] [address] [place] [address] Dr. Mariann OdomHemoglobin (Bld) [Mass/Vol]13.9 g/dLCritically low14.0-18.0The [facility] DaytonComment on above:Performed By: #### CMP #### [facility] [address] [place] [address] Dr. Mariann OdomIG #0.02 10e3/ulNormal0.00-0.03The [facility] DaytonComment on above:Performed By: #### CMP #### [facility] [address] [place] [address] Dr. Mariann OdomIG %0.3 %Normal0.0-0.5The [facility] DaytonComment on above: Performed By: #### CMP #### [facility] [address] [place] [address] Dr. Mariann Hernandez #1.8 103/ulNormal1.2-3.8The [facility] DaytonComment on above:Performed By: #### CMP #### [facility] [address] [place] [address] Dr. Mariann Peñalozamphocytes/100 WBC (Bld)24.7 %Abmute52.5-60.0The [facility] DaytonComment on above:Performed By: #### CMP #### [facility] [address] [place] [address] Dr. Mariann DiazUAL DIFF REQNONormalThe [facility] DaytonComment on above: Performed By: #### CMP #### [facility] [address] [place] [address] Dr. Mariann Dahl (RBC) [Entitic mass]28.3 gwFkasit90.9-34.0The [facility] DaytonComment on above:Performed By: #### CMP #### [facility] [address] [place] [address] Dr. Mariann Navarro (RBC) [Mass/Vol]32.9 g/nXGsrvze34.9-35.2The [facility] DaytonComment on above:Performed By: #### CMP #### [facility] [address] [place] [address] Dr. Mariann Navarro (RBC) [Entitic vol]85.9 qNVuhrlk14.0-94.0The [facility] DaytonComment on above:Performed By: #### CMP #### [facility] [address] [place] [address] Dr. Mariann Zabala #0.6 103/ulNormal0.3-0.8The [facility] DaytonComment on above:Performed By: #### CMP #### [facility] [address] [place] [address] Dr. Mariann Scruggsocytes/100 WBC (Bld)8.8 %Normal1.7-12.0The [facility] Comment on above:Performed By: #### CMP #### [facility] [address] [place] [address] Dr. Mariann Faria #4.4 103/ulNormal1.4-6.5The [facility] DaytonComment on above:Performed By: #### CMP #### [facility] [address] [place] [address] Dr. Mariann Orrutrophils/100 WBC (Bld)60.6 %Pyeils96.0-75.0The [facility] DaytonComment on above:Performed By: #### CMP #### [facility] [address] [place] [address] Dr. Mariann Schraderlet mean volume (Bld) [Entitic vol]11.2 fLNormal9.5-13.5The [facility] DaytonComment on above:Performed By: #### CMP #### [facility] [address] [place] [address] Dr. Mariann OdomPLT268 103/xmSyuhhe985-712Agz [facility] DaytonComment on above: Performed By: #### CMP #### [facility] [address] [place] [address] Dr. Mariann OdomRBC4.91 106/ulNormal4.70-6.10The [facility] DaytonComment on above:Performed By: #### CMP #### [facility] [address] [place] [address] Dr. Mariann OdomWBC7.2 103/ulNormal4.0-11.0The [facility] DaytonComment on above: Performed By: #### CMP #### [facility] [address] [place] [address] Dr. Mariann Salazar 14(COMP METB)on 79-71-8623Kzluzhp [Mass/Vol]3.8 g/dLNormal 3.4-5.0The [facility] DaytonComment on above:Performed By: #### CMP #### [facility] [address] [place] [address] Dr. Mariann OdomAlbumin/Globulin [Mass ratio]1.0 {ratio}NormalThe [facility] DaytonComment on above:Performed By: #### CMP #### [facility] [address] [place] [address] Dr. Mariann Gomez [Catalytic activity/Vol]95 U/SVczqrn15-844Chr [facility] DaytonComment on above:Performed By: #### CMP #### [facility] [address] [place] [address] Dr. Mariann Vela [Catalytic activity/Vol]66 U/LCritically woqy02-71Ste [facility] DaytonComment on above:Performed By: #### CMP #### [facility] [address] [place] [address] Dr. Mariann Kasper gap [Moles/Vol]12.7 mmol/LNormalThe [facility] on above:Performed By: #### CMP #### [facility] [address] [place] [address] Dr. Mariann OdomAST [Catalytic activity/Vol]42 U/LCritically vdrl87-61Rxv [facility] DaytonComment on above:Performed By: #### CMP #### [facility] [address] [address] [address] Mariann OdomBilirubin [Mass/Vol]0.4 mg/dLNormal0.2-1.0The [facility] Comment on above:Performed By: #### CMP #### [facility] [address] [address] [address] Mariann OdomCalcium [Mass/Vol]9.0 mg/dLNormal8.5-10.1The [facility] Comment on above:Performed By: #### CMP #### [facility] [address] [place] [address] Dr. Mariann OdomChloride [Moles/Vol]101 mmol/DHfqdcb12-186Uyu [facility] Comment on above:Performed By: #### CMP #### [facility] [address] [place] [address] Dr. Mariann OdomCO2 [Moles/Vol]27.0 mmol/LIrddav69.0-32.0The [facility] Comment on above:Performed By: #### CMP #### [facility] [address] [place] [address] Dr. Mariann OdomCreatinine [Mass/Vol]1.22 mg/dLNormal0.70-1.30The [facility] DaytonComment on above:Performed By: #### CMP #### [facility] [address] [place] [address] Dr. Mariann WyattGFR-AF CAMBODIAN>60Normal>=60The [facility] DaytonComment on above:Performed By: #### CMP #### [facility] [address] [place] [address] Dr. Mariann WyattGFR-NON AF CAMBODIAN>60Normal>=60The [facility] DaytonComment on above:Performed By: #### CMP #### [facility] [address] [place] [address] Dr. Mariann OdomGlobulin (S) [Mass/Vol]3.7 g/dLNormalThe [facility] DaytonComment on above:Performed By: #### CMP #### [facility] [address] [place] [address] Dr. Mariann OdomGlucose [Mass/Vol]288 mg/dLCritically jnrk75-011Mth [facility] DaytonComment on above:Performed By: #### CMP #### [facility] [address] [place] [address] Dr. Mariann OdomPotassium [Moles/Vol]3.7 mmol/LNormal3.5-5.1The [facility] Comment on above:Performed By: #### CMP #### [facility] [address] [place] [address] Dr. Mariann OdomProtein [Mass/Vol]7.5 g/dLNormal6.4-8.2The [facility] Comment on above:Performed By: #### CMP #### [facility] [address] [place] [address] Dr. Mariann OdomSodium [Moles/Vol]137 mmol/TEzhncl789-329Irl [facility] Comment on above:Performed By: #### CMP #### [facility] [address] [place] [address] Dr. Mariann OdomUrea nitrogen [Mass/Vol]13.0 mg/dLNormal7.0-18.0The [facility] DaytonComment on above:Performed By: #### CMP #### [facility] [address] [place] [address] Dr. Mariann OdomUrea nitrogen/Creatinine [Mass ratio]10.7 mg/mgNoalThe [facility] DaytonComment on above:Performed By: #### CMP #### [facility] [address] [place] [address] Dr. Mariann Douglas RATE WESTERGRENon 12-42-5223ZNO RATE26 mm/hrCritically high <=20The [facility] DaytonComment on above:Performed By: #### CMP #### [facility] [address] [place] [address] Dr. Mariann OdomCBC AUTO DIFFon [id number] #0.0 103/ulNormal0.0-0.1The [facility] DaytonComment on above:Performed By: #### CMP #### [facility] [address] [address] [address] Mariann OdomBasophils/100 WBC (Bld)0.8 %Normal0.2-2.0The [facility] Comment on above:Performed By: #### CMP #### [facility] [address] [address] [address] Mariann Tolbert #0.2 103/ulNormal0.0-0.7The [facility] DaytonComment on above: Performed By: #### CMP #### [facility] [address] [place] [address] Dr. Mariann Wyattosinophils/100 WBC (Bld)4.5 %Normal0.9-7.0The [facility] Comment on above:Performed By: #### CMP #### [facility] [address] [place] [address] Dr. Mariann Wyattrythrocyte distribution width (RBC) [Ratio]15.0 %Jfqtwi70.0-15.0 The [facility] DaytonComment on above:Performed By: #### CMP #### [facility] [address] [place] [address] Dr. Mariann OdomHematocrit (Bld) [Volume fraction]40.6 %Critically low42.0-54.0 The [facility] DaytonComment on above:Performed By: #### CMP #### [facility] [address] [place] [address] Dr. Mariann OdomHemoglobin (Bld) [Mass/Vol]12.8 g/dLCritically low14.0-18.0The [facility] DaytonComment on above:Performed By: #### CMP #### [facility] [address] [place] [address] Dr. Mariann Guy #0.01 10e3/ulNormal0.00-0.03The [facility] DaytonComment on above:Performed By: #### CMP #### [facility] [address] [address] [address] Mariann Guy %0.2 %Normal0.0-0.5The [facility]Comformerly [facility] on above: Performed By: #### CMP #### [facility] [address] [address] [address] Mariann PeñalozaMelissa #1.5 103/ulNormal1.2-3.8The [facility] DaytonComment on above:Performed By: #### CMP #### [facility] [address] [place] [address] Dr. Mariann Peñalozahocytes/100 WBC (Bld)31.0 %Uzxuqg93.5-60.0The [facility] on above:Performed By: #### CMP #### [facility] [address] [place] [address] Dr. Mariann DiazUAL DIFF REQNONormalThe [facility] DaytonComment on above: Performed By: #### CMP #### [facility] [address] [place] [address] Dr. Mariann Navarro (RBC) [Entitic mass]28.3 ubCxzzcd60.9-34.0The [facility] on above:Performed By: #### CMP #### [facility] [address] [place] [address] Dr. Mariann Navarro (RBC) [Mass/Vol]31.5 g/eNHkbdqe19.9-35.2The [facility] on above:Performed By: #### CMP #### [facility] [address] [place] [address] Dr. Mariann Navarro (RBC) [Entitic vol]89.6 eAIiihog88.0-94.0The [facility] on above:Performed By: #### CMP #### [facility] [address] [place] [address] Dr. Mariann Zabala #0.6 103/ulNormal0.3-0.8The [facility] DaytonComment on above:Performed By: #### CMP #### [facility] [address] [place] [address] Dr. Mariann Scruggsocytes/100 WBC (Bld)11.4 %Normal1.7-12.0The [facility] Comment on above:Performed By: #### CMP #### [facility] [address] [place] [address] Dr. Mariann OrrUT #2.6 103/ulNormal1.4-6.5The [facility] DaytonComment on above:Performed By: #### CMP #### [facility] [address] [place] [address] Dr. Mariann Orrutrophils/100 WBC (Bld)52.1 %Zeynfz44.0-75.0The [facility] DaytonComment on above:Performed By: #### CMP #### [facility] [address] [place] [address] Dr. Mariann OdomPlatelet mean volume (Bld) [Entitic vol]11.9 fLNormal9.5-13.5The [facility] DaytonComment on above:Performed By: #### CMP #### [facility] [address] [place] [address] Dr. Mariann OdomPLT288 103/tnXujfsl326-622Bwy [facility] DaytonComment on above: Performed By: #### CMP #### [facility] [address] [place] [address] Dr. Mariann OdomRBC4.53 106/ulCritically low4.70-6.10The [facility] DaytonComment on above:Performed By: #### CMP #### [facility] [address] [place] [address] Dr. Mariann OdomWBC4.9 103/ulNormal4.0-11.0The [facility] DaytonComment on above: Performed By: #### CMP #### [facility] [address] [place] [address] Dr. Mariann OdomGLYCOHEMOGLOBIN A1Con [id number] RECOMMENDATIONSEE BELOWNormal The [facility] DaytonComment on above:Result Comment: ADA RECOMMENDED LIMIT 4.0 - 6.0 ADA THERAPEUTIC TARGET < 7.0 ACTION SUGGESTED > 7.0Performed By: #### A1C #### [facility] [address] [place] [address] Dr. Mariann OdomGlucose [Mass/Vol]154 mg/dLNoTriHealth Good Samaritan HospitalComment on above:Performed By: #### A1C #### [facility] [address] [place] [address] Dr. Mariann OdomHbA1c (Bld) [Mass fraction]7.0 %Critically high4.5-6.2The [facility] DaytonComment on above:Performed By: #### A1C #### [facility] [address] [place] [address] Dr. Mariann OdomLIPID PROFILEon [id number]-HDL RATIO NORMSEE [facility] HospitalComment on above:Result Comment: 3.3 - 4.4 LOW RISK 4.4 - 7.1 AVERAGE RISK 7.1 - 11.0 MODERATE RISK >11.0 HIGH RISKPerformed By: #### CMP #### [facility] [address] [place] [address] Dr. Mariann Fongesterol [Mass/Vol]114 mg/dLNormal<=200The [facility] Comment on above:Performed By: #### CMP #### [facility] [address] [place] [address] Dr. Mariann OdomCholesterol in HDL [Mass/Vol]50 mg/rNUijyfh62-42Iqt [facility] DaytonComment on above:Performed By: #### CMP #### [facility] [address] [place] [address] Dr. Mariann OdomCholesterol in LDL [Mass/Vol]52.4 mg/dLGenesis HospitalComment on above:Performed By: #### CMP #### [facility] [address] [place] [address] Dr. Mariann Fongesterdoug.total/Cholesterol in HDL [Mass ratio]2.3 {ratio} NormalThe [facility] DaytonComment on above:Performed By: #### CMP #### [facility] [address] [place] [address] Dr. Mariann Yanes NORMAL> or = 60 mg/dl - LOW CARDIOVASCULAR RISK <40 mg/dl - HIGH CARDIOVASCULAR RISKGenesis HospitalComment on above:Performed By: #### CMP #### [facility] [address] [place] [address] Dr. Mariann Baer CALC NORMALSEE BELOWNoTriHealth Good Samaritan HospitalComment on above:Result Comment: <100 mg/dl OPTIMAL 100 - 129 mg/dl NEAR OR ABOVE OPTIMAL 130 - 159 mg/dl BORDERLINE HIGH 160 - 189 mg/dl HIGH >190 mg/dl VERY HIGH Performed By: #### CMP #### [facility] [address] [place] [address] Dr. Mariann OdomTriglyceride [Mass/Vol]58 mg/dLNormal<=150The [facility] Comment on above:Performed By: #### CMP #### [facility] [address] [place] [address] Dr. Mariann Craig CALC11.6 mg/dLNoTriHealth Good Samaritan HospitalComment on above: Performed By: #### CMP #### [facility] [address] [place] [address] Dr. Mariann Carrington PROFILEon [id number] [Mass/Vol]4.0 g/dLNormal3.4-5.0 The [facility] DaytonComment on above:Performed By: #### CMP #### [facility] [address] [place] [address] Dr. Mariann OdomAlbumin/Globulin [Mass ratio]1.1 {ratio}NormalThe [facility] DaytonComment on above:Performed By: #### CMP #### [facility] [address] [place] [address] Dr. Mariann Gomez [Catalytic activity/Vol]72 U/CWgxihk64-071Njg [facility] DaytonComment on above:Performed By: #### CMP #### [facility] [address] [place] [address] Dr. Yilan ChangALT [Catalytic activity/Vol]43 U/AQpsfxj42-46Nae [facility]Comment on above:Performed By: #### CMP #### [facility] [address] [place] [address] Dr. Mariann OdomAST [Catalytic activity/Vol]28 U/KWebjns61-76Pzd [facility]Comment on above:Performed By: #### CMP #### [facility] [address] [place] [address] Dr. Mariann RubinI, CONJUGATED0.1 mg/dLNormal0.0-0.2[facility] Comment on above:Performed By: #### CMP #### [facility] [address] [place] [address] Dr. Mariann Rubinirubin [Mass/Vol]0.4 mg/dLNormal0.2-1.0The [facility] on above:Performed By: #### CMP #### [facility] [address] [place] [address] Dr. Mariann OdomGlobulin (S) [Mass/Vol]3.5 g/dLNormalThe [facility] DaytonComment on above:Performed By: #### CMP #### [facility] [address] [place] [address] Dr. Mariann OdomProtein [Mass/Vol]7.5 g/dLNormal6.4-8.2[facility] Comment on above:Performed By: #### CMP #### [facility] [address] [place] [address] Dr. Mariann OdomMICROALBUMIN, RAND URon 16-47-2406oBBS9.5 mg/LNormal<=30.0The [facility] DaytonComment on above:Performed By: #### MALBR #### [facility] [address] [place] [address] Dr. Mariann OdomPROF CHEM 8 (BAS METB)on 11-87-9767Rswzi gap [Moles/Vol]11.3 mmol/LNormalThe [facility] DaytonComment on above:Performed By: #### CMP #### [facility] [address] [place] [address] Dr. Mariann OdomCalcium [Mass/Vol]9.1 mg/dLNormal8.5-10.1The [facility] on above:Performed By: #### CMP #### [facility] [address] [address] [address] Mariann OdomChloride [Moles/Vol]106 mmol/EAmsoay02-736KsgReg[facility] Hospital [facility] Comment on above:Performed By: #### CMP #### [facility] [address] [address] [address] Mariann dOomCO2 [Moles/Vol]29.0 mmol/OIjlczu05.0-32.0The [facility] Comment on above:Performed By: #### CMP #### [facility] [address] [place] [address] Dr. Mariann OdomCreatinine [Mass/Vol]0.93 mg/dLNormal0.70-1.30The [facility] DaytonComment on above:Performed By: #### CMP #### [facility] [address] [place] [address] Dr. Waite ChangEGFR-AF CAMBODIAN>60Normal>=60The [facility]Comment on above:Performed By: #### CMP #### [facility] [address] [place] [address] Dr. Mariann WyattGFR-NON AF CAMBODIAN>60Normal>=60The [facility] DaytonComment on above:Performed By: #### CMP #### [facility] [address] [place] [address] Dr. Mariann OdomGlucose [Mass/Vol]99 mg/uFAebiwf91-720Bpu [facility] Comment on above:Performed By: #### CMP #### [facility] [address] [place] [address] Dr. Mariann OdomPotassium [Moles/Vol]4.3 mmol/LNormal3.5-5.1The [facility] Comment on above:Performed By: #### CMP #### [facility] [address] [place] [address] Dr. Mariann OdomSodium [Moles/Vol]142 mmol/YFfknda232-811Ych [facility] Comment on above:Performed By: #### CMP #### [facility] [address] [place] [address] Dr. Mariann Garibay nitrogen [Mass/Vol]11.0 mg/dLNormal7.0-18.0The [facility] DaytonComment on above:Performed By: #### CMP #### [facility] [address] [place] [address] Dr. Mariann Garibay nitrogen/Creatinine [Mass ratio]11.8 mg/mgNormalThe [facility] DaytonComment on above:Performed By: #### CMP #### [facility] [address] [place] [address] Dr. Mariann Salomon 29-12-4923YZU8.183 uIU/mLNormal0.358-3.740[facility] WestComment on above:Performed By: #### CMP #### [facility] [address] [place] [address] Dr. Mariann Alaniz AUTO DIFFon 75-20-3457ILJC #0.1 103/ulNormal0.0-0.1The [facility] DaytonComment on above:Performed By: #### CBC #### [facility] [address] [place] [address] Dr. Mariann OdomBasophils/100 WBC (Bld)1.0 %Normal0.2-2.0[facility] Comment on above:Performed By: #### CBC #### [facility] [address] [place] [address] Dr. Mariann Tolbert #0.2 103/ulNormal0.0-0.7The [facility] DaytonComment on above: Performed By: #### CBC #### [facility] [address] [place] [address] Dr. Mariann Wyattosinophils/100 WBC (Bld)4.4 %Normal0.9-7.0[facility] Comment on above:Performed By: #### CBC #### [facility] [address] [place] [address] Dr. Mariann Wyattrythrocyte distribution width (RBC) [Ratio]14.8 %Ufudqf28.0-15.0 The [facility]Comformerly [facility] on above:Performed By: #### CBC #### [facility] [address] [place] [address] Dr. Mariann OdomHematocrit (Bld) [Volume fraction]41.1 %Critically low42.0-54.0 The [facility] DaytonComment on above:Performed By: #### CBC #### [facility] [address] [place] [address] Dr. Mariann OdomHemoglobin (Bld) [Mass/Vol]13.1 g/dLCritically low14.0-18.0[facility] on above:Performed By: #### CBC #### [facility] [address] [place] [address] Dr. Mariann Guy #0.01 10e3/ulNormal0.00-0.03The [facility] on above:Performed By: #### CBC #### [facility] [address] [place] [address] Dr. Mariann Guy %0.2 %Normal0.0-0.5The [facility] on above: Performed By: #### CBC #### [facility] [address] [place] [address] Dr. Mariann YoungH #1.6 103/ulNormal1.2-3.8The [facility] DaytonComment on above:Performed By: #### CBC #### [facility] [address] [place] [address] Dr. Mariann Peñalozamphocytes/100 WBC (Bld)30.9 %Hlutss40.5-60.0The [facility] on above:Performed By: #### CBC #### [facility] [address] [place] [address] Dr. Mariann DiazUAL DIFF REQNONormalThe [facility] DaytonComment on above: Performed By: #### CBC #### [facility] [address] [address] [address] Mariann Navarro (RBC) [Entitic mass]28.4 iyOsqnbx59.9-34.0The [facility] DaytonComment on above:Performed By: #### CBC #### [facility] [address] [place] [address] Dr. Mariann Navarro (RBC) [Mass/Vol]31.9 g/tZIpkffb15.9-35.2The [facility] DaytonComment on above:Performed By: #### CBC #### [facility] [address] [place] [address] Dr. Mariann Navarro (RBC) [Entitic vol]89.2 kPOxpbbm62.0-94.0The [facility] DaytonComment on above:Performed By: #### CBC #### [facility] [address] [place] [address] Dr. Mariann Zabala #0.5 103/ulNormal0.3-0.8The [facility] DaytonComment on above:Performed By: #### CBC #### [facility] [address] [place] [address] Dr. Mariann Scruggsocytes/100 WBC (Bld)9.4 %Normal1.7-12.0The [facility] Comment on above:Performed By: #### CBC #### [facility] [address] [place] [address] Dr. Mariann Faria #2.7 103/ulNormal1.4-6.5The [facility] DaytonComment on above:Performed By: #### CBC #### [facility] [address] [place] [address] Dr. Mariann Orrutrophils/100 WBC (Bld)54.1 %Tocbmx57.0-75.0The [facility] DaytonComment on above:Performed By: #### CBC #### [facility] [address] [place] [address] Dr. Mariann Schraderlet mean volume (Bld) [Entitic vol]11.3 fLNormal9.5-13.5The [facility] DaytonComment on above:Performed By: #### CBC #### [facility] [address] [address] [address] Mariann OdomPLT251 103/dsUbhncp041-960Ucj [facility] DaytonComment on above: Performed By: #### CBC #### [facility] [address] [place] [address] Dr. Mariann OdomRBC4.61 106/ulCritically low4.70-6.10The [facility] DaytonComment on above:Performed By: #### CBC #### [facility] [address] [place] [address] Dr. Mariann OdomWBC5.0 103/ulNormal4.0-11.0The [facility] DaytonComment on above: Performed By: #### CBC #### [facility] [address] [place] [address] Dr. Mariann ThapaF 14(COMP METB)on 16-16-9230Ctxgnys [Mass/Vol]3.7 g/dLNormal 3.4-5.0The [facility] DaytonComment on above:Performed By: #### CMP #### [facility] [address] [place] [address] Dr. Mariann OdomAlbumin/Globulin [Mass ratio]1.0 {ratio}NormalThe [facility] Centerment on above:Performed By: #### CMP #### [facility] [address] [place] [address] Dr. Mariann Gomez [Catalytic activity/Vol]87 U/LWyzokt35-601Wsm [facility] Centerment on above:Performed By: #### CMP #### [facility] [address] [place] [address] Dr. Mariann Vela [Catalytic activity/Vol]39 U/IGcqttj73-04Bgr [facility] Centerment on above:Performed By: #### CMP #### [facility] [address] [place] [address] Dr. Mariann Kasper gap [Moles/Vol]10.2 mmol/LNormalThe [facility] on above:Performed By: #### CMP #### [facility] [address] [address] [address] Mariann OdomAST [Catalytic activity/Vol]22 U/SBnlywv73-92Cqq [facility] DaytonComment on above:Performed By: #### CMP #### [facility] [address] [address] [address] Mariann OdomBilirubin [Mass/Vol]0.3 mg/dLNormal0.2-1.0The [facility] Comment on above:Performed By: #### CMP #### [facility] [address] [address] [address] Mariann OdomCalcium [Mass/Vol]9.4 mg/dLNormal8.5-10.1The [facility] Comment on above:Performed By: #### CMP #### [facility] [address] [address] [address] Mariann OdomChloride [Moles/Vol]105 mmol/RXocupz68-924Elo [facility] Comment on above:Performed By: #### CMP #### [facility] [address] [address] [address] Mariann OdomCO2 [Moles/Vol]28.9 mmol/RTsdwab92.0-32.0The [facility] Comment on above:Performed By: #### CMP #### [facility] [address] [address] [address] Mariann OdomCreatinine [Mass/Vol]0.93 mg/dLNormal0.70-1.30The [facility] DaytonComment on above:Performed By: #### CMP #### [facility] [address] [address] [address] Mariann WyattGFR-AF CAMBODIAN>60Normal>=60The [facility] DaytonComment on above:Performed By: #### CMP #### [facility] [address] [address] [address] Mariann WyattGFR-NON AF CAMBODIAN>60Normal>=60The [facility] DaytonComment on above:Performed By: #### CMP #### [facility] [address] [address] [address] Mariann OdomGlobulin (S) [Mass/Vol]3.7 g/dLNormalThe [facility] DaytonComment on above:Performed By: #### CMP #### [facility] [address] [address] [address] Mariann OdomGlucose [Mass/Vol]253 mg/dLCritically nbao53-930Emr [facility] DaytonComment on above:Performed By: #### CMP #### [facility] [address] [address] [address] Mariann OdomPotassium [Moles/Vol]4.1 mmol/LNormal3.5-5.1The [facility] Comment on above:Performed By: #### CMP #### [facility] [address] [address] [address] Mariann OdomProtein [Mass/Vol]7.4 g/dLNormal6.4-8.2The [facility] Comment on above:Performed By: #### CMP #### [facility] [address] [place] [address] Dr. Mariann OdomSodium [Moles/Vol]140 mmol/ZXdksyv248-652Znt [facility] Comment on above:Performed By: #### CMP #### [facility] [address] [address] [address] Mariann OdomUrea nitrogen [Mass/Vol]15.0 mg/dLNormal7.0-18.0The [facility] DaytonComment on above:Performed By: #### CMP #### [facility] [address] [address] [address] Mariann Garibay nitrogen/Creatinine [Mass ratio]16.1 mg/mgNormalThe [facility] DaytonComment on above:Performed By: #### CMP #### [facility] [address] [address] [address] Mariann Douglas RATE WESTERGRENon 73-99-3914KKG RATE15 mm/hrNormal<=20The [facility] DaytonComment on above:Performed By: #### CMP #### [facility] [address] [address] [address] Mariann Odom Vital Signs Date TimeVital SignValuePerforming ChrakqxfoRzlldzas48-19-3894 09:35-0400Body blelsa685.8 cmMajor Stevens MD Work Phone: [phone])[address]10-22-2025 09:35-0400 Body mass index (BMI) [Ratio]30.4 kg/m2Major Stevens MD Work Phone: [phone])[phone] [place], [place] 1894010-22-2025 09:35-0400 Body yhibusjbcmm36.1 [degF]Major Stevens MD Work Phone: 1(661)[address] [place], [place] 7593510-22-2025 09:35-0400 Body ybnbvb64.16 kgMajor Stevens MD Work Phone: 1(936)[address] [place], [place] 7593510-22-2025 09:35-0400 Diastolic blood swjjdouz40 mm[Hg]Major Stevens MD Work Phone: 1(236)[address]10-22-2025 09:35-0400 Heart rate67 /minMajor Stevens MD Work Phone: 1(393)[address]10-22-2025 09:35-0400 Respiratory rate20 /minMajor Stevens MD Work Phone: 1(987)[address] [place], [place] 7593510-22-2025 09:35-0400 SaO2% (BldA) [Mass fraction]98 %Major Stevens MD Work Phone: [phone])[address]10-22-2025 09:35-0400 Systolic blood rimldlle251 mm[Hg]Major Stevens MD Work Phone: 1(544)[address]04-23-2025 09:15-0400 Body yeczfc504.8 cmMajor Stevens MD Work Phone: [facility] CenterCcqxppbtnu24-60-1204 09:15-0400Body mass index (BMI) [Ratio]29.84 kg/m2Major Stevens MD Work Phone: noLee[facility] HospitalNsajlfpvtu37-52-5585 09:15-0400Body temperature 97.5 [degF]Major Stevens MD Work Phone: [facility] CenterBqeybpapbu67-94-8528 09:15-0400Body bezebb53.35 kgMajor Stevens MD Work Phone: [facility] CenterFfrrdkuwgv10-84-8941 09:15-0400Diastolic blood mm[Hg]Major Stevens MD Work Phone: [facility] CenterScdpblrrmh05-81-7383 09:15-0400Heart rate69 /min Major Stevens MD Work Phone: [facility] CenterCyztdtgwdj44-58-2752 09:15-0400Respiratory rate18 /minMajor Stevens MD Work Phone: [facility] CenterGecodkkuuj01-98-6600 09:15-2573XzI4% (BldA) [Mass fraction]97 %Major Stevens MD Work Phone: [facility] CenterLcuxivkllj09-07-2754 09:15-0400Systolic blood nknupblw491 mm[Hg]Major Stevens MD Work Phone: [facility] CenterJuxwiiuyue68-11-8525 10:45-0500Body mass index (BMI) [Ratio]29.27 kg/c5NseenoIsha Valentino MD Work Phone: [facility]03-04-2025 10:45-0500 Body bmhwksidckc13.3 [degF]Isha Valentino MD Work Phone: [facility]03-04-2025 10:45-0500 Body ebwupd76.53 kgIsha Valentino MD Work Phone: [facility]03-04-2025 10:45-0500 Diastolic blood klayeust82 mm[Hg]Isha Valentino MD Work Phone: [facility]03-04-2025 10:45-0500 Heart rate66 /minIsha Valentino MD Work Phone: [facility]03-04-2025 10:45-0500 Respiratory rate20 /minIsha Valentino MD Work Phone: [facility]03-04-2025 10:45-0500 Systolic blood rtvpkebi902 mm[Hg]Isha Valentino MD Work Phone: [facility]10-22-2024 09:01-0400 Body mass index (BMI) [Ratio]29.62 kg/m2Major Stevens MD Work Phone: [facility] CenterCikuvqhnja12-02-8031 09:01-0400Body temperature 97.3 [degF]Major Stevens MD Work Phone: [facility] CenterDbfxakxeuf56-72-7167 09:01-0400Body oyxibg09.62 kgMajor Stevens MD Work Phone: [facility] CenterNymzzqppjx44-34-5811 09:01-0400Diastolic blood yjtajngh49 mm[Hg]Major Stevens MD Work Phone: [facility] CenterBqohdgcabq82-93-4624 09:01-0400Heart rate62 /min Major Stevens MD Work Phone: [facility] CenterKyetxnidwj57-59-7604 09:01-7098NzK6% (BldA) [Mass fraction]98 %Major Stevens MD Work Phone: [facility] CenterPcrhejidph84-79-0880 09:01-0400Systolic blood eoaycojj240 mm[Hg]Maojr Stevens MD Work Phone: [facility] CenterMergkkvslw05-27-1164 14:31-0400Body cckyll374.8 cmIsha Valentino MD Work Phone: [facility]05-21-2024 14:31-0400 Body mass index (BMI) [Ratio]30.13 kg/l7EutgkuIsha Valentino MD Work Phone: [facility]05-21-2024 14:31-0400 Body zidfrrojuml47.4 [degF]Isha Valentino MD Work Phone: 1216[facility] [place], [place] 2457405-21-2024 14:31-0400 Body akfwuy58.25 kgIsha Valentino MD Work Phone: [phone])[address] [place], [place] 6267305-21-2024 14:31-0400 Diastolic blood ofzudewp65 mm[Hg]Isha Valentino MD Work Phone: 1(216)[address] [place], [place] 6267305-21-2024 14:31-0400 Heart rate69 /Nkechi Valentino MD Work Phone: 1216)[address] [place], [place] 6267305-21-2024 14:31-0400 Respiratory rate18 /Nkechi Valentino MD Work Phone: 1216)[address] [place], [place] 6267305-21-2024 14:31-0400 Systolic blood iwjvupuw348 mm[Hg]Isha Valentino MD Work Phone: 1216)[address]03-13-2024 16:00-0400 Body kjncfnmxkar68.4 [degF]Isha Valentino MD Work Phone: [address] [place], [place] 6267303-13-2024 16:00-0400 Diastolic blood mm[Hg]Isha Valentino MD Work Phone: 1216)[address] [place], [place] 6267303-13-2024 16:00-0400 Heart rate96 /Nkechi Valentino MD Work Phone: 1216)[facility] [place], [place] 2457403-13-2024 16:00-0400 Respiratory rate18 /Nkechi Valentino MD Work Phone: [address] [place], [place] 6267303-13-2024 16:00-0400 SaO2% (BldA) [Mass fraction]98 %Isha Valentino MD Work Phone: [address] [place], [place] 6267303-13-2024 16:00-0400 Systolic blood oipxbhwq353 mm[Hg]Isha Valentino MD Work Phone: 1(883)024-[address] [place], [place] 6283503-08-2024 13:33-0500 Body ekxmvlumcwq88.0Isha Valentino MD Work Phone: 1(572)[address]03-08-2024 13:33-0500 SaO2% (BldA) [Mass fraction]100 %Isha Valentino MD Work Phone: 1(159)[address]03-08-2024 13:19-0500 Body wuomclyoswi44.0 degrees CelsiusMemorial HospitalComment on above:Performed By: #### 01235-5 #### PACHECO Ferraro ([id number]) [facility] ([facility]) [address] [place], [place] 6622303-08-2024 13:19-4900JlH6% (BldA) [Mass fraction]100 %Memorial HospitalComment on above:Performed By: #### [id number] #### PACHECO Ferraro ([id number]) [facility] ([facility]) [address] [place], [place] 6622303-08-2024 12:51-0500Body gsoyqvwphws41.0Isha Valentino MD Work Phone: 1(463)[address]03-08-2024 12:51-0500 SaO2% (BldA) [Mass fraction]100 %Isha Valentino MD Work Phone: 1(970)243-[address] [place], [place] 2457403-08-2024 12:36-0500 Body rhdhrcikkpj10.0 degrees CelsiusMemorial HospitalComment on above:Performed By: #### [id number] #### PACHECO Ferraro ([id number]) [facility] ([facility]) [address] [place], [place] 6622303-08-2024 12:36-6610PbO2% (BldA) [Mass fraction]100 %Memorial HospitalComment on above:Performed By: #### 06858-2 #### PACHECO Ferraro ([id number]) [facility] ([facility]) [address] [place], [place] 6622303-08-2024 11:09-0500Body kxokmgkrlpc01.0Isha Valentino MD Work Phone: 1(289)154-[address] [place], [place] 6283503-08-2024 11:09-0500 SaO2% (BldA) [Mass fraction]100 %Isha Valentino MD Work Phone: 1(943)143-[address] [place], [place] 2457403-08-2024 10:49-0500 Body suvqnqklaov67.0 degrees CelusMemorial HospitalComment on above:Performed By: #### [id number] #### PACHECO Ferraro ([id number]) [facility] ([facility]) [address] [place], [place] [address]-08-2024 10:49-0733TdR6% (BldA) [Mass fraction]100 %Memorial HospitalComment on above:Performed By: #### [id number] #### PACHECO Ferraro ([id number]) [facility] ([facility]) [address] [place], [place] 6622303-08-2024 09:27-0500Body dscqzqpnoce25.0Isha Valentino MD Work Phone: 1(840)042-[facility]03-08-2024 09:27-0500 SaO2% (BldA) [Mass fraction]100 %Isha Valentino MD Work Phone: 5(109)890-[address] [place], [place] 2457403-08-2024 09:00-0500 Body hxljauishhs91.0 degrees CelCorey HospitalComment on above:Performed By: #### 81341-0 #### PACHECO Ferraro ([id number]) [facility] ([facility]) [address] [place], [place] [address]-08-2024 09:00-4413AzX5% (BldA) [Mass fraction]100 %Memorial HospitalComment on above:Performed By: #### 86085-3 #### PACHECO Ferraro ([id number]) [facility] ([facility]) [address] [place] [address] 6799893-04-7551 05:53-0500Body leipbw619.8 cmIsha Valentino MD Work Phone: [facility]03-08-2024 05:53-0500 Body mass index (BMI) [Ratio]30.18 kg/b7PfqtvtIsha Valentino MD Work Phone: [facility]03-08-2024 05:53-0500 Body qkvyvy36.4 kgIsha Valentino MD Work Phone: [facility]01-03-2024 10:40-0500 Body zwughc330.34 cmJelinneaica Cat Other [employer] Other 01-03-2024 10:40-0500Body mass index (BMI) [Ratio] 30.26 kg/d8Kuezpka Cat Other [employer] Other 01-03-2024 10:40-0500Body .43 kgJessica Cat Other [employer] Other 11-27-2023 09:45-0500Body dugvqg525.34 Mehdi Sandoval Other [employer] Other 11-27-2023 09:45-0500Body mass index (BMI) [Ratio] 30.12 kg/y2RqzzknAbel Sandoval Other [employer] Other 11-27-2023 09:45-0500Body lcynyy78.98 kgSherikaushik Sandoval Other [facility] [employer] Other 11-27-2023 09:45-0500Diastolic blood nalmecrb35 mm[Hg] Abel Lori Other [facility] [employer] Other 11-27-2023 09:45-2967OcP5% (BldA) [Mass fraction]99 % Abel Sandoval Other [facility] [employer] Other 11-27-2023 09:45-0500Systolic blood rlqrozdh432 mm[Hg] Abeldahiana Sandoval Other [place] [employer] Other 11-15-2023 10:35-0500Diastolic blood akwmzgmv88 mm[Hg] MD Major Stevens Work Phone: 1(509)292-[address] [place], [place] 2837611-15-2023 10:35-0500 Heart rate65 /minMD Major Stevens Work Phone: 1(378)399-[address] [place], [place] 2837611-15-2023 10:35-0500 Respiratory rate16 /minMD Major Stevens Work Phone: 1(706)060-[address] [place], [place] 2837611-15-2023 10:35-0500 SaO2% (BldA) [Mass fraction]97 %MD Major Stevens Work Phone: [phone])583-[facility]11-15-2023 10:35-0500 Systolic blood mm[Hg]MD Major Stevens Work Phone: 1(564)980-[facility]11-15-2023 09:57-0500 Inhaled oxygen flow rate3 L/minMD Major Stevens Work Phone: 1(349)355-[address] [place], [place] 2837611-15-2023 08:54-0500 Body .8 cmMD Major Stevens Work Phone: 1(182)037-[address] [place], [place] 2837611-15-2023 08:54-0500 Body rspkua32.52 kgMD Major Stevens Work Phone: 1(874)102-[address] [place], [place] 2837610-25-2023 11:33-0400 Diastolic blood mbfdubrf37 mm[Hg]MD Major Stevens Work Phone: 1(165)[address]10-25-2023 11:33-0400 Heart rate70 /minMD Major Stevens Work Phone: 1([phone])[address]10-25-2023 11:33-0400 Respiratory rate16 /minMD Major Stevens Work Phone: 1(210)[address]10-25-2023 11:33-0400 SaO2% (BldA) [Mass fraction]98 %MD Major Stevens Work Phone: [phone])[address]10-25-2023 11:33-0400 Systolic blood ookdhgxq864 mm[Hg]MD Major Stevens Work Phone: 1(572)[address]10-25-2023 11:05-0400 Inhaled oxygen flow rate3 L/minMD Major Stevens Work Phone: 1(791)[address]10-25-2023 10:40-0400 Body .8 cmMD Major Mendezdayron Work Phone: [phone])[address]10-25-2023 10:40-0400 Body biuodi62.52 kgMD Major Stevens Work Phone: 1(746)176-[address] [place], [place] 2837610-03-2023 08:30-0400 Body .34 cmSherdahiana Sandoval Other [facility] [employer] Other 10-03-2023 08:30-0400Body mass index (BMI) [Ratio] 30.12 kg/r3EzqxwaAbel Sandoval Other [place] [employer] Other 10-03-2023 08:30-0400Body htyzwf15.98 kgSherif Lori Other [place] [employer] Other 10-03-2023 08:30-0400Diastolic blood airaffql15 mm[Hg] Abel Sandoval Other [facility] [employer] Other 10-03-2023 08:30-9065FnO9% (BldA) [Mass fraction]98 % Abel Sandoval Other [facility] [employer] Other 10-03-2023 08:30-0400Systolic blood uypesufg784 mm[Hg] Abel Sandoval Other [facility] [employer] Other Encounters Encounter DateEncounter TypeCare ProviderFacilityStart: 17-72-2794ealmdibrnx Tomy Baldwin NILLFacility: [facility]vueStart: 01-68-9933vahkodlxihWtqioko NILRonan Facility: [facility]vueStart: 01-14-2025 End: 28-28-1776hducgrriekIjgl Naderer MD Work Phone: -[facility] ClydeStart: 01-14-2025 End: 83-66-5414Felabai encounter procedureMajor Stevens MD-[facility] [place] Work Phone: Start: 11-12-2024 End: 33-82-0599Enlabpntx Result EncounterGeneric External Data ProviderNOMS External Department UnsolicitedStart: 11-12-2024 End: 38-78-2074Yiqsqfuxg Result EncounterGeneric External Data ProviderNOMS External Department UnsolicitedStart: 07-16-2024 End: 00-39-5326Pbbxex flowsAva Stevens MD Work Phone: noms Mary FMStart: 07-16-2024 End: 30-40-5428Otdfwm Chencho Stevens MD Work Phone: noms CWMary FMStart: 07-16-2024 End: 46-81-9049Vwvavddxb Result EncounterMajor Stevens MD Work Phone: noms External Department UnsolicitedStart: 07-16-2024 End: 64-13-6438Zdmnft outpatient visit 25 minutesMajor Stevens MD Work Phone: noms [facility] FMComment on above:Type 2 diabetes mellitus with hyperglycemia, without long-term current use of insulin ([facility]) (Primary Dx); Essential hypertension ([facility]); Lumbar spondylosis; Arthropathic psoriasis, unspecified ([facility])Start: 07-16-2024 End: 38-51-8615rjtcfuurhoKNWX NADERERNot AvailableStart: 06-25-2024 End: 44-25-7724Yvgwlhexo Result EncounterGeneric External Data ProviderNOMS External Department UnsolicitedStart: 06-25-2024 End: 33-53-7380Bdhzdhgzj Result EncounterGeneric External Data ProviderNOMS External Department UnsolicitedStart: 05-27-2024 End: 62-95-0004Zsvfgxbhy Result EncounterGeneric External Data ProviderNOMS External Department UnsolicitedStart: 05-27-2024 End: 05-85-3401Mvnxvlpck Result EncounterGeneric External Data ProviderNOMS External Department UnsolicitedStart: 05-27-2024 End: 71-71-5935Rqolvi outpatient visit 25 minutesIsha Valentino MD Work Phone: [facility] PavilionComment on above:S/P spinal surgery (Primary Dx)Start: 05-27-2024 End: 12-62-6198Dpxogxxmbi hospital visit by physicianluis Retana X-Ray [facility] PavilionComment on above:S/P lumbar spinal fusion; Scoliosis of thoracolumbar region due to degenerative disease of spine in adult Start: 05-27-2024 End: 46-92-0207xtoknqczxjQHVWLHClinton Memorial Hospitaltart: 02-19-2024 End: 05-96-9159Qlyvstqpe Result EncounterGeneric External Data ProviderNOMS External Department UnsolicitedStart: 02-19-2024 End: 37-55-2406Arkzfqjht Result EncounterGeneric External Data ProviderNOMS External Department UnsolicitedStart: 01-15-2024 End: 39-72-7825Nlrsif flowsAva Stevesn MD Work Phone: NOAY CWM FMStart: 01-15-2024 End: 18-06-3889Bbllac flowsAva Stevens MD Work Phone: noms CWM FMStart: 01-15-2024 End: 98-62-4426Apycusk encounter procedureMajor Stevens MD Work Phone: [facility] Work Phone: Start: 01-15-2024 End: 34-65-8149Ztpvbnlz preventive med est patient 40-64yrsMarc Radha COPELAND Work Phone: noms CWM FMComment on above:Annual physical exam (Primary Dx); Type 2 diabetes mellitus with hyperglycemia, without long-term current use of insulin (CMS/HCC); Essential hypertension (CMS/HCC)Start: 01-15-2024 End: 87-98-5691taohdkyxzvZTMV NADERERNot AvailableStart: 11-14-2023 End: 68-04-4531Zhcmydeoq Result EncounterGeneric External Data ProviderNOMS External Department UnsolicitedStart: 11-14-2023 End: 42-94-4038Kaxuavlhq Result EncounterGeneric External Data ProviderNOMS External Department UnsolicitedStart: 10-17-2023 End: 54-78-5565tmptkhvrcyXYAZ NADERERNot AvailableStart: 08-23-2023 End: 52-11-0858hloovodumoUBYSIE T GRACIETONNot AvailableStart: 08-21-2023 End: 92-53-8234iofyqnjcyvJNLKTLOE BRINKNot AvailableStart: 08-16-2023 End: 69-52-5746ysrjhrwczzAFXINROP BRINKNot AvailableStart: 08-14-2023 End: 17-63-0454Mbfrxw follow up visit related to original Rosaura Valentino MD Work Phone: [facility] Cordova PavilionComment on above:Postoperative follow-up (Primary Dx)Start: 08-14-2023 End: 00-98-2046Uuolijhcmt hospital visit by physicianRufina Retana X-Ray [facility] PavilionComment on above:S/P lumbar spinal fusion; Scoliosis of thoracolumbar region due to degenerative disease of spine in adult Start: 08-14-2023 End: 10-64-8887Vuhwemccf Result EncounterGeneric External Data ProviderNOMS External Department UnsolicitedStart: 08-14-2023 End: 53-44-1772Exlnkpimh Result EncounterGeneric External Data ProviderNOMS External Department UnsolicitedStart: 08-14-2023 End: 80-31-9950lmbmaixqkyKPIXJXClinton Memorial Hospitaltart: 08-13-2023 End: 83-22-4814ltdetmyatkGHSHPJ T BLACKSTONNot AvailableStart: 08-09-2023 End: 76-87-3560vuzquqlbpjVRVHHSSN BRINKNot AvailableStart: 08-06-2023 End: 22-28-4490hlrxsgabbmLKQBBH T BLACKSTONNot AvailableStart: 08-02-2023 End: 52-43-9659vctrxaduckKEWHQBDU BRINKNot AvailableStart: 07-30-2023 End: 91-13-9033cixptkdcdzHCEBFSAT BRINKNot AvailableStart: 07-26-2023 End: 12-97-1606nqrutqfioxWRKNEL T BLACKSTONNot AvailableStart: 07-10-2023 End: 34-41-5880Svmfwvbfj Result EncounterGeneric External Data ProviderNOMS External Department UnsolicitedStart: 07-10-2023 End: 90-15-6457Syhnszcwi Result EncounterGeneric External Data ProviderNOMS External Department UnsolicitedStart: 07-10-2023 End: 21-46-1954Xsxacuflka hospital visit by Analilia Retana X-Ray 4 [facility] PavilionComment on above:Status post spinal surgeryStart: 07-10-2023 End: 44-61-2826fneixykibeWMDMDZSouth [facility] Medical CenterStart: 87-20-9864wqdvxnqrvcLUVJ PHYSICIANFacility:RStart: 06-01-2023 End: 58-65-4080Srcbpvcwup and management of inpatientIsha Valentino MD Work Phone: [facility] [place] 4Comment on above:Lumbar radiculopathy, right (Primary Dx); Spinal stenosis of lumbar region with neurogenic claudication; Sagittal plane imbalance; Scoliosis of thoracolumbar region due to degenerative disease of spine in adult; Lumbar foraminal stenosis; Lumbar radiculopathy, acute; Lumbar stenosis with neurogenic claudication; Postoperative pain; Constipation due to pain medication; Psoriatic arthritis ([facility])Start: 05-17-2023 End: 49-31-8817pviymxckpgYTCMGenesis Hospitaltart: 05-17-2023 End: 59-26-2878stdcwtbilfRDYUZG [facility]le [facility] Hospitaltart: 05-17-2023 End: 44-97-2060Vcocvwkem for other preprocedural examinationISHA Walton [facility] Centertart: 05-17-2023 End: 08-39-7264Ldrokjn encounter statusProMedica Flower Hospital Work Phone: Start: 05-17-2023 End: 04-99-4276Ijbcshxy examinationProMedica Flower Hospital Work Phone: Start: 05-17-2023 End: 28-75-8646Mxxtftmeoh [facility] Rqv7639 Cr Nonv1 Holter/Ecg [facility] MatherComment on above:Surgery, elective; Preop testing; Preoperative general physical examinationStart: 04-24-2023 End: 13-34-2370feyjnbyyiiQAYAHPKettering Health Troytart: 04-24-2023 End: 73-99-2832Ccyydagcye hospital visit by physicianRufina Retana X-Ray [facility] PavilionComment on above:Spinal stenosis of lumbar region with neurogenic claudicationStart: 47-03-1618Xtlrks Cher Villa MD Work Phone: [facility] SpineStart: 03-29-2023 End: 84-86-3996bqeevwqdynYvqkfeh Springer Other [employer] Other start: 68-22-0460Muiozplky encounterHenrylinneabrandy Cat [facility] Referral CoordinatorStart: 03-28-2023 End: 11-94-7276cekijjyxfwJwtzjpe Springer Other [place] [employer] Other start: 55-16-8185Heyhgm outpatient visit 25 minutes Natty Infante [facility] NeurosurgeryStart: 02-19-2023 End: 22-13-9053khwxzpamwdWjipkl Zaky Other [place] [employer] Other Start: 63-45-4447Hyetcg outpatient visit 25 minutes Abel Dexter Pain ManagementStart: 02-07-2023(PROC) PROCEDURESherdahiana Sandoval [facility] OutPtStart: 02-07-2023 End: 23-04-2401hpzkbgmtduMxgdsg S ZakyFacility:[facility] Start: 02-07-2023 End: 03-70-4061Aolcifwnw to same day surgery centerMD Major Stevens Work Phone: [facility] Work Phone: Start: 02-07-2023 End: 22-75-7150ouqiygsngoBM Marc Naderer Work Phone: [facility] Work Phone: Start: 01-17-2023(PROC) PROCEDURESulysses [facility] OutPtStart: 01-17-2023 End: 69-88-0615vseztvitclOqqidz S ZakyFacility:[facility] Start: 01-17-2023 End: 74-93-7470Xotjiuady to same day surgery centerMD Major Stevens Work Phone: [facility] Work Phone: Start: 01-17-2023 End: 84-96-6266ftzhisknfkAB Marc Naderer Work Phone: [facility] Work Phone: Start: 12-26-2022 End: 00-70-5223vtsqgqdjxlAkrvln Zaky Other [employer] Other Start: 86-69-7406Nuszoh outpatient visit 25 minutes Abeldahiana Dexter Pain ManagementStart: 12-15-2022 End: 38-07-1124knxrrlfopyHziph HartFacility:[facility] Start: 12-15-2022 End: 75-68-6803Jzfjuid encounter procedureMD Major Stevens Work Phone: [facility] [address] Work Phone: Start: 10-25-2022 End: 11-21-7910aszvixqfawDuntus [employer]aky Other [employer] Other Start: 78-82-1975Hcdhtmztf encounterSherdahiana Dexter Pain ManagementStart: 10-16-2022 End: 37-21-6335vzxhaypacbAllszh S ZakyFacility:[facility] Start: 07-19-2022 End: 46-22-3992bvvjrtiegvKY TONIA PADILLAFacility:M4Culnb: 04-11-2022 End: 45-16-4958ogcjzleahkHE TONIA PADILLAFacility:G5Tulyz: 04-03-2022 End: 69-96-4853ibnmqafljqNN MAOJR STRONGacility:S7Kddlr: 01-03-2022 End: 68-40-0084omjaejkkurJH TONIA PADILLAFacility:P0Rbjqg: 56-96-3171Ggakoaipm for general adult medical examination without abnormal findingsDR MAJOR STEVENS [facility] HospitalStart: 09-13-2021 End: 17-49-2599nlrinautfpJS MAJOR Martinez PACHECOGEORFacility:L1Bysix: 09-13-2021 End: 15-03-7220Invrklcuf for general adult medical examination without abnormal findingsDR MAJOR Martinez PACHECOGEORFacility:Q2Zjyqu: 08-24-2021 End: 85-42-1761vvvrkikxubQY TONIA PADILLAFacility:H1 Procedures DateProcedureProcedure DetailPerforming ClinicianStart: 65-45-6165KEO CBC WITH AUTO DIFFGeneric External Data ProviderStart: 91-12-8432QNZ HEMOGLOBIN C2MXqym Radha COPELAND Work Phone: Start: 43-64-6203MBR CBC WITH AUTO DIFFGeneric External Data ProviderStart: 35-15-1472PD SCOLIOSIS SERIES 2 TO 3 VIEWSGeneric External Data ProviderStart: 38-64-6719UZN CBC WITH AUTO DIFFGeneric External Data ProviderStart: 49-48-2742CDP SED RATEGeneric External Data ProviderStart: 85-96-2343DXB CMP (CMP) (FOR REMOTE [facility] USE)Generic External Data ProviderStart: 68-04-1357VDB CBC WITH AUTO DIFFGeneric External Data ProviderStart: 08-14-2023 X-ray exam of trunk spineGeneric External Data ProviderStart: 12-24-8376BA SCOLIOSIS 2 VIEW (NON EOS)ISHA VALENTINOStart: 75-97-1175A-ray exam of trunk spineGeneric External Data ProviderStart: 67-35-9210VMZNXDMSE PATIENTPESCADEROMARVIN [facility] CENTERYESICANYU LANG[facility] HOSPITALStart: 81-63-4927JLQSNTFRLXNSDQ [facility] CENTERZOEStart: 54-53-5959FRDPU DISCHARGE DIETPESCADEROMARVIN VALENTINOStart: 67-74-8033TJLRHACMK ACTIVITYPESCADEROMARVIN Ambrizart: 95-09-8663HIQEGLWII INSTRUCTIONSPESCADEROMARVIN VA hospitalart: 41-00-9914ZFEWVS PROVIDER (DO NOT PROMPT FOR PARAMETERS)ISHA Ambrizart: 66-79-5723Semjuqf [Mass/volume] in Serum or PlasmaISHA VALENTINOStart: 63-32-6074Yazaukt quantitative blood xcpt reagent Kamala Valentino MD Work Phone: Start: 23-38-5782XVVZBRUM PATIENT TO [facility]: 45-81-2794YCD panel - Blood by Automated countSUMANTHMARVIN CHELSY Start: 44-37-7725XVHBR FUNCTION PANELPESCADEROMARVIN DYSONBigfork Valley Hospitalart: 82-63-9118Ijauhhg [Mass/volume] in Serum or PlasmaAshley Regional Medical Centerart: 06-06-2023 End: 29-16-5629Ihqlw function panelRenetta Knox COMPUTER SUPPORT SPECIALIST-[employer] Work Phone: Start: 37-45-2853Ilgxuwk [Mass/volume] in Serum or PlasmaWray Community District Hospital: 30-29-3837Ewgbgaf quantitative blood xcpt reagent Kamala Valentino MD Work Phone: Start: 50-46-9490Dcwgyqo [Mass/volume] in Serum or PlasmaWray Community District Hospital: 41-18-4378Urvcxrd quantitative blood xcpt reagent Kamala Valentino MD Work Phone: Start: 97-65-9021Pwkyscn [Mass/volume] in Serum or PlasmaPESCADEROMARVIN [facility]: 28-31-3250Mvhbsni quantitative blood xcpt reagent Kamala Valentino MD Work Phone: Start: 35-50-5925Uwloflh [Mass/volume] in Serum or PlasmaCASTLEVIEW HOSPITALMICHAELLoving: 94-01-0146Qqnofxt quantitative blood xcpt reagent Kamala Valentino MD Work Phone: Start: 20-02-0371Voywyiy [Mass/volume] in Serum or PlasmaWray Community District Hospital: 70-37-2350Wxplfyx quantitative blood xcpt reagent Kamala Valentino MD Work Phone: Start: 97-13-7119Akracfr [Mass/volume] in Serum or PlasmaCASTLEVIEW HOSPITALMICHAELart: 09-14-8363Zcmdqbm quantitative blood xcpt reagent stripIsha Valentino MD Work Phone: Start: 20-74-4634Cmdfqhz [Mass/volume] in Serum or PlasmaISHA VALENTINOStart: 34-75-1743Qkhzv metabolic 2000 panel - Serum or PlasmaISHA AVLENTINOStart: 90-90-6072YLH panel - Blood by Automated countCINCINNATI CH[facility] JANUARYWALStart: 04-70-8130Yrlyvep quantitative blood xcpt reagent Kamala Valentino MD Work Phone: Start: 55-60-2094Zxustbu [Mass/volume] in Serum or PlasmaISHA VALENTINOStart: 79-92-0581Htuhq metabolic panel calcium total Terrell Johnson MD Work Phone: start: 88-23-2593Rrckfto quantitative blood xcpt reagent Kamala Valentino MD Work Phone: Start: 34-59-7566Thxpemw [Mass/volume] in Serum or PlasmaISHA SINIMCHAELart: 29-33-6848Bpcumqh quantitative blood xcpt reagent Kamala Valentino MD Work Phone: Start: 91-09-9777Binoqld [Mass/volume] in Serum or PlasmaISHA SINMICHAELStart: 67-38-1881Uixkkpq quantitative blood xcpt reagent Kamala Valentino MD Work Phone: Start: 45-61-3575Hyoza metabolic 2000 panel - Serum or PlasmaISHA VALENTINOStart: 02-47-2253FEH panel - Blood by Automated count ISHA CHELSYStart: 06-00-2900Oijpqel [Mass/volume] in Serum or PlasmaSUMANTHISH CHELSYStart: 06-03-2023 End: 70-96-6254Abfas metabolic panel calcium totalSenic Johnson MD Work Phone: start: 15-56-3124Wkczqql [Mass/volume] in Serum or PlasmaISHA VALENTINOStart: 28-95-5264Wkrhltl quantitative blood xcpt reagent Kamlaa Valentino MD Work Phone: Start: 19-78-1567Vskzcng [Mass/volume] in Serum or PlasmaAshley Regional Medical Centerart: 33-90-9774Nrfpabd quantitative blood xcpt reagent stripIsha Valentino MD Work Phone: Start: 53-84-9082Uwkruzi [Mass/volume] in Serum or PlasmaMOUNTAIN WEST MEDICAL CENTERStart: 95-12-2446Jpgjwpt quantitative blood xcpt reagent stripIsha Valentino MD Work Phone: Start: 17-25-2284UHF panel - Blood by Automated count [facility] Centerart: 52-05-6720NVGWBVDFRWXSGJPG KASLIWALStart: 06-02-2023 Magnesium [Mass/volume] in Serum or PlasmaAshley Regional Medical Centerart: 52-86-5786YYQHP FUNCTION PANELAshley Regional Medical Centerart: 37-66-3116Wudul function panelSebsaul Johnson MD Work Phone: start: 24-42-4013FLBW CODEAshley Regional Medical Centerart: 23-49-5587UDH panel - Blood by Automated countAshley Regional Medical Centerart: 06-01-2023 FIBRINOGENAshley Regional Medical Centerart: 76-71-5016Svvnzrwsk [Mass/volume] in Serum or PlasmaAshley Regional Medical Centerart: 34-56-3707JNKGF OXIMETRY, CONTINUOUSCINCINNATI CHILDREN'S HOSPITAL [facility] KARISST. [facility] Start: 69-87-5112PUZWN TO INPATIENTAshley Regional Medical Centerart: 93-43-3251Mhvtyoy [Mass/volume] in Serum or PlasmaAshley Regional Medical Centerart: 06-01-2023 End: 96-59-1405Gbgbe of magnesiumSebacarline Johnson MD Work Phone: start: 60-48-2472QD FLUORO IMAGES NO CHARGEAshley Regional Medical Centerart: 20-70-5745MKDFC OXIMETRY, CONTINUOUSPanfabian Bacon MD Work Phone: Start: 95-33-2274Tpbkpmk quantitative blood xcpt reagent stripIsha Valentino MD Work Phone: Start: 06-01-2023 End: 63-96-9199JS tomography Unspecified body regionSjosue Johnson MD Work Phone: start: 06-01-2023 End: 27-06-6053Igourvva bldColleen T O'Shalonda CAA Work Phone: Start: 88-82-8246KGVPDHQ RBCISHA VALENTINOStart: 37-72-7526VFDKX/VERIFY ABORHMANI CHELSYStart: 73-59-3192ALWLU GAS ARTERIAL FULL PANELISHA VALENTINOart: 64-67-3905Hwzrmhcb bldColleen T O'Shalonda CAA Work Phone: Start: 16-60-7663LGAEMTX RBCColleen T O'Shalonda CAA Work Phone: Start: 72-17-3724WBSJGDHKJ KARISMICHAELStart: 06-01-2023 VERAB/VERIFY ABORHColleen T O'Shalonda CAA Work Phone: Start: 72-08-7622Vlgwnxy [Mass/volume] in Serum or PlasmaISHA Ambrizart: 06-01-2023 End: 58-12-8699Nxtthcso post/posterolatrl/postinterbody lumbarIsha Valentino MD Work Phone: Start: 29-62-0702Xeztikk quantitative blood xcpt reagent Kamala Valentino MD Work Phone: Start: 88-04-1138ZWJ 12-LEADISHA Ambrizart: 18-88-6562Esq routine ecg w/least 12 lds trcg only w/o i&rLpetrona Theodore MD Work Phone: Start: 37-84-4830Aryim metabolic 2000 panel - Serum or PlasmaISHA Ambrizart: 08-07-9697LNX panel - Blood by Automated count ISHA Ambrizart: 72-08-5419CBAV AND SCREENWray Community District Hospital: 05-17-2023 STAPHYLOCOCCUS AUREUS/MRSA COLONIZATION, CULTUREWray Community District Hospital: 05-17-2023 REQUEST FOR PRE-ADMISSION TESTING VISITWray Community District Hospital: 04-24-2023 Hemoglobin A1c/Hemoglobin.total in BloodWray Community District Hospital: 28-31-6996Csouh anesthetic sacral epidural blockMD Major Stevens Work Phone: Start: 19-84-1188Tusgydhir of local anesthetic into sacroiliac jointMD Major Stevens Work Phone: Start: 07-40-7771MB lumbar spine wo conMD Major Stevens Work Phone: Start: 60-40-2434DFV screeningDR TONIA PADILLAComment on above:Performed By: #### A1C #### [facility] [address] [place] [address] Dr. Mariann OdomStart: 43-54-8594IbfkeamgfhlAvhwuzf Provider Plan of Treatment DateCare ActivityDetailAuthorStart: 63-42-7630Jfesktfc screeningDiabetes: Retinopathy ScreeningNOGA HealthcareStart: 01-16-2025 End: 54-79-3514Utxxjpo encounter jiywfqnwf61/24/2025 9:00 AM EDT [facility] [address] [place] [phone] Major Stevens MD [address] [place] [address] [facility] WANDER FMStart: 57-11-3900Yhybhkhag vaccinationNOGA HealthcareStart: 77-67-6154Wieho screening for proteinDiabetes: Urine Protein ScreeningOREM COMMUNITY [facility] HealthcareStart: 93-99-9441Rxvwnclrt for malignant neoplasm of colonNOGA HealthcareStart: 07-16-2024 End: 98-79-1912Xulneaggox A1c/Hemoglobin.total in BloodHemoglobin A1c Lab Routine Type 2 diabetes mellitus with hyperglycemia, without long-term current use of insulin ([facility]) Expected: 07/16/2024 (Approximate), Expires: 07/16/2025 [facility] Work Phone: Comment on above:Expected: 07/16/2024 (Approximate), Expires: 07/16/2025Start: 07-16-2024 End: 14-95-3090Xvdyylv encounter procedureNOMS CWM FMComment on above:Arrived Start: 79-97-8660Btujemdb screeningDiabetes: Retinopathy ScreeningNOGA HealthcareStart: 99-55-5053Kztxkfzzvu A1c measurementDiabetes: Hemoglobin A1C [facility] HealthcareStart: 01-15-2024 End: 01-69-3540Mzdxvib encounter procedureNOMS CWM FMComment on above:Arrived Start: 00-87-7982RwwhikaisBlanchard Valley Health SystemStart: 87-33-5024Uqbzg screening for proteinDiabetes: Urine Protein ScreeningOREM COMMUNITY [facility]PITAL HealthcareStart: 13-34-7526Bjbpmrawkc A1c measurementDiabetes: Hemoglobin A1C [facility] HospitalStchester: 07-10-2023 End: 59-45-4388Aorwegx encounter azghgugqe59/16/2024 11:40 AM EDT [place] [phone] [place] [address] [address] Department [place] [address] [place] Ontiverostart: 06-13-2023 End: 31-08-5199Agcpwjcd Bhbgdhx5906/13/2023 10:45 AM EDT Clinical Support [facility] [place] [address] [address] [facility] [address]th [place] [phone] [facility] [place] HealthStart: 06-01-2023 End: 28-39-2239Ngevibfmg to same day surgery jhdexg8706/01/2023 7:15 AM EST - 06/01/2023 12:55 PM EST [facility] [address] [place] [address] [place] [address] [address] Department [place] [address] L4-5 and L5-S1 transforaminal lumbar interbody fusion with placement of interbody cage with decompression L3-4 posterior column osteotomy with L2-3 laminectomy and facetectomy and L2-S1 instrumented fusion using local bone autograft and BMP with pelvic fixation. [56199 (CPT )][facility] ORComment on above:L4-5 and L5-S1 transforaminal lumbar interbody fusion with placement of interbody cage with decompression L3-4 posterior column osteotomy with L2-3 laminectomy and facetectomy and L2-S1 instrumented fusion using local bone autograft and BMP with pelvic fixation. [53303 (CPT )]Start: 06-01-2023 End: 80-69-2504Biikmusb post/posterolatrl/postinterbody lumbarFusion Spine Transforaminal Interbody Lumbar with Navigation Spinal stenosis of lumbar region with neurogenic claudication Sagittal plane imbalance Scoliosis of thoracolumbar region due to degenerative disease of spine in adult Lumbar foraminal stenosis Lumbar radiculopathy, acute Lumbar stenosis with neurogenic claudication 06/01/2023 7:15 AM ESTVirtual VIKASH Baker ORStart: 14-82-6585Mwwgzrjrzo hospital visit by tbpziirmm30/08/2024 5:45 AM EST Hospital Encounter [facility] [address] [address] [place] [address] [place] [address] [address] Department of Neurological Surgery [place] [phone] [facility] [place] Start: 04-17-2023 End: 35-23-6733Nzueami encounter /23/2024 9:00 AM EST Office Visit [facility] [address] [place] [address] Dino Villa MD [address] [place] [address] [facility] Orthopedic SpineStart: 04-12-2023 End: 31-85-0256CKBAUBUV POWERSHARE IMAGES TO EPICDOWNLOAD POWERSHARE IMAGES TO EPIC Imaging Routine Back pain, unspecified back location, unspecified back pain laterality, unspecified chronicity Expected: 04/12/2023, Expires: 04/12/2024[facility]ainsT[facility] Work Phone: Comment on above:Expected: 04/12/2023, Expires: 04/12/2024Start: 48-75-5706SumszsraxHolzer Health Systemtart: 01-17-2023 [facility] CenterStart: 36-09-9159UFYVV-19 Vaccine ( season)COVID-19 Vaccine ( season)[facility]Start: 11-24-2022 Influenza vaccinationInfluenza Vaccine (#1)[facility]St[facility] CenterStart: 58-05-9013UHY High Risk: (Elderly (60+) or Population) (1 - Risk 60-74 years 1-dose series)RSV High Risk: (Elderly (60+) or Population) (1 - Risk 60-74 years 1-dose series)[facility]: 41-80-7496FUP patients and/or patients aged 60+ years (1 - 1-dose 60+ series)RSV patients and/or patients aged 60+ years (1 - 1-dose 60+ series) [facility]: 90-75-6870KRU vaccine (optional 60+ years)RSV vaccine (optional 60+ years)[facility]HealthStart: 19-89-7734POHVA-19 Vaccine (2 - Bev risk series)COVID-19 Vaccine (2 - Bev risk series) [facility]: 48-96-4608Sejnmjgj (RZV) Vaccine (1 of 2)Shingles (RZV) Vaccine (1 of 2)[facility]HealthStart: 70-85-0573Rrshex Vaccines (1 of 2)Zoster Vaccines (1 of 2)[facility]: 2007 Screening for malignant neoplasm of colonMetroHealthStart: 11-87-4737Fsjdh panel CholesterolMetroHealthStart: 92-85-2655LTvD/Tdap/Td Vaccines (1 - Tdap) DTaP/Tdap/Td Vaccines (1 - Tdap)[facility]: 92-06-4129Qdcgteginlzx vaccinationPneumococcal Vaccine (1 of 2 - PCV)[facility]: 66-91-5469Ydaff screening for proteinDiabetes: Urine Protein ScreeningUnCenterville: 00-92-3420Xvgscu Vaccines (1 of 2)Zoster Vaccines (1 of 2)[facility]: 75-36-4817Gphbetkft C screeningMetroCleveland Clinic Medina Hospital: 29-03-1359Uymyjjs + diphtheria + acellular pertussis vaccine (product)Tdap BoosterMetroHealthart: 1977 HIV screeningHIV TestMetroCleveland Clinic Medina Hospital: 75-31-6117Zrfnmfaw foot examination Diabetes: Foot ExamUnCenterville: 24-08-3793Sjezpbxq screeningDiabetes: Retinopathy ScreeningUnCent[place]: 47-12-5861Zbvoiilclzbl Vaccine: Pediatrics (0 to 5 Years) and At-Risk Patients (6 to 64 Years) (1 - PCV)Pneumococcal Vaccine: Pediatrics (0 to 5 Years) and At- Risk Patients (6 to 64 Years) (1 - PCV)[facility]: 05-06-0230Eognlxhcdnfo Vaccine: Pediatrics (0 to 5 Years) and At-Risk Patients (6 to 64 Years) (1 of 2 - PCV)Pneumococcal Vaccine: Pediatrics (0 to 5 Years) and At-Risk Patients (6 to 64 Years) (1 of 2 - PCV)[facility]: 70-64-3967JSL Vaccines (1 of 1 - Standard series)MMR Vaccines (1 of 1 - Standard series)[facility]: 03-05-2935QPO screeningHIV ScreeningUnCenterville: 84-85-8439Chvmv panelLipid PanelUnCenterville: 72-71-4232Hiremswqt for malignant neoplasm of colonMetroCleveland Clinic [facility]ina Hospital: 18-82-8604Bavxj screening for proteinDiabetes: Urine Protein ScreeningUnCenterville: 40-57-2903Glhwpd Adult PhysicalYearly Adult PhysicalUnMercy Health Anderson HospitalArthdsis post/posterolatrl/postinterbody lumbarFusion Spine Transforaminal Interbody Lumbar with Navigation Spinal stenosis of lumbar region with neurogenic claudication Sagittal plane imbalance Scoliosis of thoracolumbar region due to degenerative disease of spine in adult Lumbar foraminal stenosis Lumbar radiculopathy, acute Lumbar stenosis with neurogenic claudication [facility] Work Phone: Comprehensive metabolic 2000 panel - Serum or Plasma [facility]: 41-88-5577Pakpczc [Mass/volume] in Serum or PlasmaZUNI [facility] Service Area Work Phone: comment on above:Once (Lab) for 1 Occurrences starting 06/01/2023 until 06/01/2023s needed (Lab) until discontinued starting 06/01/2023 End: 90-15-0646Pfgpxftdz spirometry InstructIncentive spirometry Instruct Respiratory Care Routine Once for 1 Occurrences starting 06/01/2023 until 06/01/2023[facility] Work Phone: Comment on above:Once for 1 Occurrences starting 06/01/2023 until 06/01/2023 End: 85-81-9641Bfmdcesszcneoy monitoring - IOMInteroperative monitoring - IOM Neurology Routine Once for 1 Occurrences starting 06/01/2023 until 06/01/2023 [facility] Work Phone: Comment on above:Once for 1 Occurrences starting 06/01/2023 until 06/01/2023atient EducationZaky Non Diagnostic BlockOur Lady Of Mercy Hospital Ctr Work Phone: [facility] Work Phone: End: 39-29-4451Xoecm oximetry, continuousPulse oximetry, continuous Respiratory Care Routine Continuous until discontinued starting 06/01/2023[facility] Work Phone: Comment on above:Continuous until discontinued starting 06/01/2023 End: 21-21-7667Diayr oximetry, continuousPulse oximetry, continuous Respiratory Care Routine Continuous until discontinued starting 06/02/2023[facility] Work Phone: Comment on above:Continuous until discontinued starting 06/02/2023 End: 39-91-4606Vhcxl function 2000 panel - Serum or PlasmaRenal function panel Lab Routine Morning draw (Lab) for 1 Occurrences starting 06/07/2023 until 05/24[facility] Work Phone: Comment on above:Morning draw (Lab) for 1 Occurrences starting 06/07/2023 until 06/07/2023 End: 85-44-9355Caejsdnr Catheter RemovalUrethral Catheter Removal Procedures Routine Once for 1 Occurrences starting 06/02/2023 until 06/02/2023[facility] Work Phone: Comment on above:Once for 1 Occurrences starting 06/02/2023 until 06/02/2023 End: 40-44-7046X-ray scoliosis 2 View (NON EOS)[facility] Service Area Work Phone: comment on above:Once for 1 Occurrences starting 04/24/2023 until 04/24/2023 End: 14-59-9472O-ray scoliosis 2 View (NON EOS)[facility] Service Area Work Phone: comeulr on above:Once for 1 Occurrences starting 07/10/2023 until 07/10/2023 End: 33-24-6021W-ray scoliosis 2 View (NON EOS)[facility] Service Area Work Phone: comrcxi on above:Once for 1 Occurrences starting 08/14/2023 until 08/14/2023 End: 23-01-8178UA Skull to Coccyx 2 or 3 ViewsZUNI HOSPITAL Service Area Work Phone: comnnlq on above:Once for 1 Occurrences starting 05/27/2024 until 05/27/2024[facility] Immunizations Immunization DateImmunizationNotesCare XinazspqQdbzwlpx07-59-1845jniolyhex, injectable,quadrivalent, preservative free, pediatricSif Lori Other [place] [employer] Other 427629-22-5530ywhctxuyr virus vaccine, unspecified formulationAhu [address] [place], [place] [address]10-14-2015influenza virus vaccine, unspecified formulationMajor Stevens MD Work Phone: [facility]10-14-2015influenza, injectable,quadrivalent, preservative free, pediatricSherif Lori Other [facility] [employer] Other Payers DatePayer CategoryPayerPolicy [id number] Care (Private)COMMERCIAL [employer] .[id number] 94-89-1305Rfph-[id number] Health Insurance1.2.840.271060.1.13.647.2.7.3.670931.76237-45-8091Nmydasi 1.2.840.253282.1.13.56.2.7.3.643676.74692-68-5179Ubrczvx0000600 2.840.1.056611.3.579.[id number] 2.16.840.1.091791.3.579.2.12423-66-3105Etjzbfn7416425 2.16.840.1.184979.3.579.2.79475-23-1876Eecvcrv7562844 2.16.840.1.953166.3.579.2.52457-57-9923Axqynsc2455777 2.16.840.1.396138.3.579.2.50774-64-8792Jgwqszx8268430 2.16.840.1.112692.3.579.2.34648-09-8607Rbfkmmc55805807 2.16.840.1.334837.3.579.2.44272-16-6453Iwlhxlw81420855 2.16.840.1.786275.3.579.2.08867-07-0892Qfjtabi66039897 2.16.840.1.351470.3.579.2.133693-14-6040Ywzutan01905421 2.16.840.1.945648.3.579.2.769001-12-8930Vrduzwe01866294 2.16.840.1.546453.3.579.2.856212-91-2590Cxavufb46055716 2..840.1.360263.3.579.2.782960-43-0533Hbcecgf58455310 2.16.840.1.528936.3.579.2.822620-13-6539Nugctlk08935942 2..840.1.504144.3.579.2.481568-37-5971Ruptoao48491553 2.16.840.1.757984.3.579.2.462394-46-4221Cdgfuxi85332968 2.16.840.1.345528.3.579.2.045356-40-6627Rzvdjcq39749370 2.16.840.1.666754.3.579.2.696836-43-2287Nzzrqub38048396 2.16.840.1.319254.3.579.2.436349-81-5098Sqvgkxx3468049 2.16.840.1.273787.3.579.2.543710-73-1069Fqodhrb8353226 2.16840.1.267533.3.579.2.253636-07-7671Imrcdpw2884710 2.16840.1.217888.3.579.2.555216-82-0328Uahumcv8085597 2.16840.1.012346.3.579.2.827353-48-4762Faabbwf8377881 2.0.1.604650.3.579.2.108518-29-6756Eyewdyi6754749 2.0.1.983630.3.579.2.780129-13-6881Bfgwsui6325604 2.0.1.900069.3.579.2.902385-83-6368Hgttigo8992447 2.0.1.881770.3.579.2.697015-11-0705Fwinrzo7358000 2..1.461877.3.579.2.384949-75-7162Tawumtp1320913 2.0.1.692899.3.579.2.154836-82-3200Deowxda5469918 2.0.1.633043.3.579.2.829990-62-1122Hvzbryp6116653 2.0.1.649297.3.579.2.611045-74-2498Nfqraqj27831023 2.840.1.791427.3.579.2.95190-68-3102Ffualii44600266399-48-3101Dxqxhjs43901117 Yeuhkza44606256 2.16840.1.403488.3.579.2.535Tmfcbkh66983627 2..840.1.305597.3.579.2.950Awaxhlt52087099 2..840.1.347394.3.579.2.531 Qswtexr36612053 2.16.840.1.721808.3.579.2.531 Social History DateTypeDetailFacilityStart: 05-17-2023 End: 51-67-8400Fnt Assigned At BirthUnMercy Health Anderson HospitalStart: 26-59-1930Ebt Assigned At BirthNewark HospitalTobacco smoking status NHISTobacco smoking consumption unknownMetroHealthStart: 83-83-9713Ljx Assigned At BirthNot on fileMetroHealthStart: 04-14-2023 End: 53-65-4752Yhwfyvzn to SARS-CoV-2 (event)Not sureUnCenterville: 03-07-2023 End: 35-76-1768Jxhfngm smoking status NHISNever smoked tobaccoUnMercy Health Anderson HospitalStchester: 03-07-2023 End: 73-58-1810Jbgcuqs use and exposureSmokeless tobacco non-userUnMercy Health Anderson Hospital Work Phone: Start: 05-17-2023 End: 41-20-8227Henmorf intakeEx-drinker (finding)[facility] Work Phone: Start: 05-17-2023 End: 81-11-0304Hgfmkoo of Social functionUnMercy Health Anderson HospitalHow often to you have a drink containing alcohol?NeverOhioHealth Berger HospitalStchester: 58-93-2064Hys many standard drinks containing alcohol do you have on a typical day?Patient does not drinkUnMercy Health Anderson Hospital Work Phone: In the past 12 months, was there a time when you were not able to pay the mortgage or rent on time?NoOhioHealth Berger Hospital Work Phone: are you now , , [...] money to buy more.Never trueNOMS Healthcare Start: 38-17-5228Vxcgzfy Commentcaffeine: soda, chocolateNOMS HealthcareSexMale (finding)[facility] Medical Equipment Procedure CodeEquipment CodeEquipment Original TextEquipment IdentifierDates Modulus Tlif-A,[id number] 8 [id number]: 38-44-3553Thmuder on above: Description: Per bill only jdr 06/03Moduls Tlif- [id number] 8 Ouskko71763_rkm Start: 73-31-8972Lsfpwkl on above:Description: Per bill only jdr 06/03Infuse Bmp Small - Atgu7922cri - [id number]_lpdIdirc: 07-27-9267Hkvzf, Reline Lock, 5.5mm Open Tulip - [id number]_gymYvady: 99-25-2135Taudl, Reline-O, 7.5x50mm 2s Polyaxial - [id number]_zdgLcqpy: 82-09-1588Sbtxgx-O Conn, 5-6/5-6mm O-O Med - [id number]_xdoOtwnb: 62-71-1312Icvbs, Reline-O, 8.5x50mm 2s Polyaxial - [id number]_yluRoxsv: 18-55-1085Idxbx, Reline-O, 8.5x80mm 2s Poly Iliac - [id number]_xbvCaeqc: 54-19-0972Hattd, Reline-O, 6.5x45mm 2s Polyaxial - [id number]_ratLcykp: 19-52-1734Vftke, Reline-O, 7.5x45mm 2s Polyaxial - [id number]_dxqXhvan: 77-30-6558Mvwe Exp Ti Jaren 5.5mm 4+ [id number]_xidRatzo: 19-60-715445mq Offset [id number]_crbYrhnr: 86-69-9567Bohbvqc on above: Description: Per bill only jdr 06/03USE DIRECTED ONCE [id number]: 61-01-5902QZO DIRECTED ONCE [id number]: 28-02-2020Yrchl Sugar Diagnostic stripStart: 01-13-2025 Goals DatePatient GoalDesired Activity/StatePersonal health goal Functional Status TcawMoxuoqpfgiNykmsyAqjjdsje81-29-5039Jktko score [AUDIT-C]0 07/09/2024 11:29 AM EDT [employer] TechnologiesIn[employer] AMDUniversity Health Truman Medical CenterDssijoppxb93-98-2985Vdb often do you have a drink containing alcohol?Never 07/09/2024 11:29 AM EDT [employer] [facility]Kqrcxmzuhf61-79-4689Zfyxnsepvi statusPatient does not drink 07/09/2024 11:29 AM EDT [employer], [employer] Patient does not drinkUniversity Health Truman Medical CenterThrjguvczj77-86-6547Uea often do you have 6 or more drinks on 1 occasion?Never 07/09/2024 11:29 AM EDT [employer] [facility] 12-26-2022 to 07-16-2024 Note Date & OgvbHyfyHvutgcza48-18-2608 History of Present illness Narrative* Major Stevens MD - 07/16/2024 9:49 AM EDTAssociated Problem(s): Type 2 diabetes mellitus with hyperglycemia, without long-term current use of insulin ([facility]) Reports BS controlled and due [...] note were not included. Subjective Patient ID: Melvin Baer is a 64 y.o. male who presents [...] home and monitor PRN. documented in this encounterUniversity Health Truman Medical [id number] History of Present illness Narrative* Isha Valentino MD - 05/27/2024 11:00 AM EST I just had the pleasure of seeing Mr. Baer back in the Neurosurgery Spine Clinic at the [facility]. He is a very pleasant 63 -year-old male, who recently underwent a L2-S1 Fusion with me on 06/01/2023 and is almost 1 year out from his surgery. Mr. Baer is doing extremely well from his surgery [...] the further treatment plan. Isha Valentino MD, [facility], FAANS Director - Minimally Invasive Spine Surgery [facility] Foreign Broadcast Specialist of Neurological Surgery [facility] [employer] [place], [place] ---Some of this note was completed using [employer] voice recognition technology and sometimes the software misinterprets words. This may include unintended errors with respect to translation of words, typographical errors or grammar errors which may not have been identified prior to finalization of the chart note. Please take this into account when reading this note--- documented in this [facility] Work Phone: [phone]) 984-504110-22-2024 History of Present illness Narrative* Major Stevens [...] note were not included. Subjective Patient ID: Melvin Baer is a 63 y.o. male who presents [...] hyperglycemia, without long-term current use of insulin ([facility]) Reports BS controlled and last A1C 6.3. Stick to ADA diet and limit carbs. Essential hypertension ([facility]) BP improved and monitor PRN. Annual physical exam - Primary Reviewed labs. Discussed proper diet and regular aerobic exercise. Need aerobic exercise 5-6 days aweek for 30 minutes at a time. Smaller portions and limit total calories. Colonoscopy every 10 years. Tetanus every 10 years. Advised not to smoke. Discussed daily Aspirin therapy. documented in this encounterUniversity Health Truman Medical [id number] History of Present illness Narrative* Isha Valentino MD - 08/14/2023 2:40 PM EDT I just had the pleasure of seeing Mr. Baer back in the Neurosurgery Spine Clinic at the [facility]. He is a very pleasant 63 -year-old [...] the further treatment plan. Isha Valentino MD, [facility], FAANS Director - Minimally Invasive Spine Surgery [facility] Foreign Broadcast Specialist of Neurological Surgery [facility] [employer] [place], [place] ---Some of this note was completed using [employer] voice recognition technology and sometimes the software misinterprets words. This may include unintended errors with respect to translation of words, typographical errors or grammar errors which may not have been identified prior to finalization of the chart note. Please take this into account when reading this note--- documented in this [facility] Work Phone: [phone] 736-323703-13-2024 Hospital course Narrative* Renetta Knox, COMPUTER SUPPORT SPECIALIST-[facility] - 06/06/2023 4:56 PM EDT Discharge Diagnosis [...] Follow-Up Future Appointments Date Time Provider Department [place] 06/13/2023 10:45 AM NEUROSURGERY [facility] NURSE [id number] Academic 07/10/2023 11:40 AM Isha Valentino MD [id number] [facility] Renetta Knox, COMPUTER SUPPORT SPECIALIST-[facility]WYER documented in this [facility] Work Phone: [phone] 619-553703-13-2024 History of Present illness Narrative* Itzel Chavez, PT - 06/06/2023 4:00 PM EDT Physical [...] (none) End of Session Communication: Bedside nurse, Gas Pit Worker, Physician Assessment Comment: 63 yo male with [...] steps (consecutively) with 1 rail and min HEAVY MACHINERY OPERATOR, 1 step at a time) Outcome Measures: [facility] Basic Mobility Turning from your back [...] Barboza MD - 06/06/2023 2:16 AM EDT Melvin Baer is a 63 y.o. male [...] mod -intensity by pt/ot referral sent to [facility] which is the F[facility] of patient * Donato Currie MD - 06/05/2023 5:15 AM EDT Melvin Baer is a 63 y.o. male [...] hand placement Stairs Stairs: No Outcome Measures: [facility] Basic Mobility Turning from your back [...] discussed during interdisciplinary rounds. Team members present: RN WILLIE JACQUES MD Plan per Medical/Surgical team: adm dx Lumbar radiculopathy, Maintain drain no uprights oral pain medications Discharge disposition: patient recd mod-intensity given list of snf choices medically ready 2-days Status-Inpatient Payer- [facility] Potential Barriers: None ADOD: 06/07/2023 Patricio Salas RN TCC [phone] * Reji Bacon MD - 06/04/2023 5:22 AM EDT Melvin Baer is a 63 y.o. male [...] Oral pain meds No uprights PTOT-SNF Reji Baocn MD Associated attestation - Isha Valentino MD - 06/04/2023 1:00 PM EDT Vitals Stable. NO new Neurological deficits. Plan: OOB to chair and/or ambulate Incentive Spirometry DVT prophylaxis PT-OT Aggressive bowel regimen * Amita Jacques OT - 06/03/2023 2:13 PM EDT Occupational Therapy Evaluation Patient Name: Melvin Baer [...] Shower/Tub: Tub/shower unit Prior Function: Level of Alpha: Independent with ADLs and functional transfers, Independent with homemaking with ambulation ADL Assistance: Independent Homemaking Assistance: Independent Ambulatory Assistance: Independent Vocational: (works for [employer]) Leisure: enjoys going to [employer] games Hand Dominance: Right Prior Function Comments: [...] prior to surgery Strength: Strength Comments: (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 male [...] Prior Function Per Pt/Caregiver Report Level of Alpha: Independent with ADLs and functional transfers, Independent [...] verbal cues, Moderate tactile cues Outcome Measures: [facility] Basic Mobility Turning from your back [...] (OTR/L, OTD) Inpatient Occupational Therapist Rehab Office: [phone] * Destinee Pisano MD - 06/02/2023 9:48 AM EST Acute Pain Service Postop Pain HPI - Palliative: relieved with IV analgesics and regional local anesthetics Provocative: movement Quality: burning and aching Radiation: none Severity: 5/10 Timing: constant 24-HOUR OPIOID CONSUMPTION: ANIMATION DIRECTOR hydromorphone 0.8mg Hydromorphone 1mg Oxycodone 10mg Scheduled [...] per [place] [phone] ph [phone] Associated attestation - Amada Palomino MD - 06/04/2023 9:13 AM EDT I personally saw the patient, evaluate and reviewed labs. I argeed with resident's plan. * Donato Currie MD - 06/02/2023 1:36 AM EST Melvin Baer is a 63 y.o. male on day 1 of admission presenting with Lumbar radiculopathy, right. Subjective PATIENT DOING WELL Objective Physical Exam BUE 5/5 BLE 5/ SILT Last Recorded Vitals Blood pressure 145/75, [...] will plan for downgrade Maintain drain Dc ANIMATION DIRECTOR/menezes No uprights AM labs PTOT-OK to work with patient with no restrictions Donato Currie MD * Morena Curtis - 05/31/2023 2:24 PM EST Pharmacy Medication History Review Melvin Baer is a 63 y.o. male who is planned to be admitted for No Principal Problem: There is no principal problem currently on the Problem List. Please update the Problem List and refresh.. Pharmacy called the patient prior to their scheduled procedure and reviewed the patient's jredx-kq-pbainqekk medications for accuracy. Medications ADDED: Acetaminophen 500mg [...] Below are additional concerns with the patient's SERVICE CAPTAIN list. none Morena Curtis [facility] Please reach out via Secure Chat for questions documented in this [facility] Work Phone: [phone] 598-899603-13-2024 Plan of care note* Care Plan - [...] barriers include getting rest premedicating for activities. [facility]03-13-2024 Miscellaneous Notes* Care Plan - Charla Pedro [...] (B) Operative Note Date: 06/01/2023 OR Location: [facility] OR Name: Melvin Baer, : 1960, Age: [...] Surgeons * Isha Valentino - Primary Resident/Fellow/Other Smelter Liner: Surgeon(s) and Role: * Terrell Johnson MD [...] performed and the images transferred to the O4IT system for use in intraoperative image-guided computer-assisted [...] caps and final tightened using the torque truck driver supervisor and counter-torque.A third supporting jaren was placed on the left side using a [id number]-cj-[id number] connector between L2 and L3 level and [...] 8:39 AM EST Date: 06/01/2023 OR Location: [facility] [place] Name: Melvin Baer, : 1960, Age: [...] bone autograft and BMP with pelvic fixation. 64990 - WI ARTHRODESIS COMBINED TQ 1NTRSPC LUMBAR WI OSTEOTOMY SPINE PST/PSTLAT APPR 1 VRT SGM LMBR [85286] WI ARTHRODESIS PST/PSTLAT TQ 1NTRSPC EA ADDL NTRSPC [21298] WI STACK FACETECTOMY & FORAMOTOMY 1 VRT SGM LUMBAR [09733] WI POSTERIOR SEGMENTAL INSTRUMENTATION 3-6 VRT SEG [23132] WI PELVIC FIXATION OTHER THAN SACRUM [19946] WI ALLOGRAFT FOR SPINE SURGERY ONLY MORSELIZED [] WI AUTOGRAFT SPINE SURGERY LOCAL FROM SAME INCISION [] WI STEREOTACTIC COMPUTER ASSISTED PX SPINAL [59994] WI INSJ BIOMCHN DEV INTERVERTEBRAL DSC SPC W/ARTHRD [98792] WI ARTHRODESIS CMBN TQ 1NTRSPC EACH ADDITIONAL [11880] Surgeons * Isha Valentino - Primary Resident/Fellow/Other Smelter Liner: Surgeon(s) and Role: * Terrell Johnson MD [...] 490 mL Specimen: No specimens collected Staff: Milling Machine Set Up Operator: Levi Gonzales RN; Kimberli Hastings RN Scrub [...] with scheduled follow up. documented in this [facility] Work Phone: [phone]) 486-506603-12-2024 Plan of care note* Care Plan - [...] address these barriers include use call light. [facility] Work Phone: [phone]) 351-902603-10-2024 Plan of care note* Care Plan - [...] medication is given according to the order. [facility] Work Phone: [phone] 562-184103-08-2024 Note* Perioperative Nursing Note - Karen Shah RN - 06/01/2023 3:58 PM EST Agree with prior nurse assessment. Labs sent. [facility]03-08-2024 Note* Op Note - Isha Valentino MD - 06/01/2023 8:39 AM EST L4-5 and L5-S1 transforaminal lumbar interbody fusion with placement of interbody cage with decompression L3-4 posterior column osteotomy and L2-S1 instrumented fusion using local bone autograft and BMP with pelvic fixation. (B) Operative Note Date: 06/01/2023 OR Location: [facility] [place] Name: Melvin Baer, : 1960, Age: [...] Surgeons * Isha Valentino - Primary Resident/Fellow/Other Smelter Liner: Surgeon(s) and Role: * Terrell Johnson MD [...] performed and the images transferred to the O4IT system for use in intraoperative image-guided computer-assisted [...] caps and final tightened using the torque truck driver supervisor and counter-torque.A third supporting jaren was placed on the left side using a mewn-vg-vbpk connector between L2 and L3 level and [...] marino portions of the procedure. Isha Valentino [facility] Work Phone: [phone] Note* Brief Op Note - Terrell Johnson MD - 06/01/2023 8:39 AM EST Date: 06/01/2023 OR Location: [facility] [place] Name: Melvin Baer, : 1960, Age: [...] bone autograft and BMP with pelvic fixation. 74425 - WI ARTHRODESIS COMBINED TQ 1NTRSPC LUMBAR WI OSTEOTOMY SPINE PST/PSTLAT APPR 1 VRT SGM LMBR [99366] WI ARTHRODESIS PST/PSTLAT TQ 1NTRSPC EA ADDL NTRSPC [26605] WI STACK FACETECTOMY & FORAMOTOMY 1 VRT SGM LUMBAR [39018] WI POSTERIOR SEGMENTAL INSTRUMENTATION 3-6 VRT SEG [26064] WI PELVIC FIXATION OTHER THAN SACRUM [29001] WI ALLOGRAFT FOR SPINE SURGERY ONLY MORSELIZED [] WI AUTOGRAFT SPINE SURGERY LOCAL FROM SAME INCISION [] WI STEREOTACTIC COMPUTER ASSISTED PX SPINAL [67668] WI INSJ BIOMCHN DEV INTERVERTEBRAL DSC SPC W/ARTHRD [38673] WI ARTHRODESIS CMBN TQ 1NTRSPC EACH ADDITIONAL [78703] Surgeons * Isha Valentino - Primary Resident/Fellow/Other Smelter Liner: Surgeon(s) and Role: * Terrell Johnson MD - Resident - Assisting * Leonardo Infante MD - Fellow Procedure Summary Anesthesia: General ASA: III Anesthesia Staff: Anesthesiologist: MD Kalia Diaz-AA: SHERRI Carter MANDIE: Lucina Dunne Estimated Blood Loss: 1100mL Intra-op Medications: [...] 490 mL Specimen: No specimens collected Staff: Milling Machine Set Up Operator: Levi Gonzales RN; Kimberli Hastings RN Scrub Person: Lucian Castillo; Sam Khan Findings: excellent correction Complications: None; patient tolerated the procedure well. Disposition: PACU - hemodynamically stable. Condition: stable Specimens Collected: No specimens collected Attending Attestation: Isha Valentino [facility] Work Phone: [phone]) [phone] Consult note* Destinee Pisano MD - 06/01/2023 7:27 AM EST Consults Acute Pain Service Melvin Baer is [...] pain disorder COVID-19 2020 recovererd Diabetes mellitus ([facility]) F/W PCP Hemoglobin A1c 8.0% or greater 03/08/2023 Last A1c=8.2, jardiance was added. Hypertension F/W PCP, not taking any medications Low back pain August 2018 Lumbar spondylosis Peripheral neuropathy bilateral feet R>L PONV (postoperative nausea and vomiting) Spinal stenosis scheduled for surgery with Dr. Valentino on 06/01/2023 Type 2 diabetes mellitus ([facility]) September 2008 Vision loss wears glasses Past Surgical History: Procedure Laterality Date COLONOSCOPY OTHER SURGICAL HISTORY right knee arthroscopy x2 Family History Problem Relation Name Age of Onset Aortic aneurysm Mother Cancer Father Bhavik Gabriella Sada Stroke Brother Bhavik Verdin Sada Social History Socioeconomic History Marital status: Spouse [...] per primary [place] [phone] ph [phone] Associated attestation - Amada Palomino MD - 06/01/2023 10:58 AM EST I personally saw the patient, discussed risks and benefits, answered all questions, reviewed the chart and agree with the resident's plan. [facility] Work Phone: [phone] Consult note* Destinee Pisano MD - 06/01/2023 7:27 AM EST Consults Acute Pain Service Melvin Baer is [...] pain disorder COVID-19 2020 recovererd Diabetes mellitus ([facility]) F/W PCP Hemoglobin A1c 8.0% or greater 03/08/2023 Last A1c=8.2, jardiance was added. Hypertension F/W PCP, not taking any medications Low back pain August 2018 Lumbar spondylosis Peripheral neuropathy bilateral feet R>L PONV (postoperative nausea and vomiting) Spinal stenosis scheduled for surgery with Dr. Valentino on 06/01/2023 Type 2 diabetes mellitus ([facility]) September 2008 Vision loss wears glasses Past Surgical History: Procedure Laterality Date COLONOSCOPY OTHER SURGICAL HISTORY right knee arthroscopy x2 Family History Problem Relation Name Age of Onset Aortic aneurysm Mother Cancer Father Bhavik Fernandesadlin Stroke Brother Bhavik Fernandesadlin Social History Socioeconomic History Marital status: Spouse [...] per primary [place] [phone] ph [phone] Associated attestation - Amada Palomino MD - 06/01/2023 10:58 AM EST I personally saw the patient, discussed risks and benefits, answered all questions, reviewed the chart and agree with the resident's plan. documented in [facility] Work Phone: [phone] Hospital Note* Hospital Course - Renetta Knox APRN-OREN - 06/01/2023 7:07 AM EST 63 year [...] Home Care. Discharged with scheduled follow up. [facility] Work Phone: [phone] Attending History and physical note* Terrell Johnson [...] healing and intraoperative findings. Isha Valentino MD, [facility] Shop Coordinator of Neurological Surgery [facility] [employer] [facility] Attending Surgeon Director - Minimally Invasive Spine Surgery [place], [place] Source Note - Lama Ewelina MD [...] pain disorder COVID-19 2020 recovererd Diabetes mellitus ([facility]) F/W PCP Hemoglobin A1c 8.0% or greater 03/08/2023 Last A1c=8.2, jardiance was added. Hypertension F/W PCP, not taking any medications Low back pain August 2018 Lumbar spondylosis Peripheral neuropathy bilateral feet R>L PONV (postoperative nausea and vomiting) Spinal stenosis scheduled for surgery with Dr. Valentino on 06/01/2023 Type 2 diabetes mellitus ([facility]) September 2008 Vision loss wears [...] wound care for up to 14 days. 2/22/24 3/7/24 Lama Ewelina MD gabapentin (Neurontin) 300 mg [...] Case seen and discussed with Dr. Alvarado. [facility] Work Phone: [phone] History and physical note* Terrell Johnson MD [...] healing and intraoperative findings. Isha Valentino MD, [facility] Shop Coordinator of Neurological Surgery [facility] [employer] Attending Surgeon Director - Minimally Invasive Spine Surgery [place], [place] Source Note - Lama Ewelina MD [...] pain disorder COVID-19 2020 recovererd Diabetes mellitus (CMS/HCC) F/W PCP Hemoglobin A1c 8.0% or greater 03/08/2023 Last A1c=8.2, jardiance was added. Hypertension F/W PCP, not taking any medications Low back pain August 2018 Lumbar spondylosis Peripheral neuropathy bilateral feet R>L PONV (postoperative nausea and vomiting) Spinal stenosis scheduled for surgery with Dr. Valentino on 06/01/2023 Type 2 diabetes mellitus ([facility]) September 2008 Vision loss wears [...] 3 times a day. Historical Provider, MD PAT ROS: Constitutional: neg Neuro/Psych: nervous/anxious Eyes: Ears: [...] discussed with Dr. Alvarado. documented in this [facility] Work Phone: [phone]) 216-175701-03-2024 Evaluation note* Encounter Date Diagnosis Assessment Notes [...] MRI of the lumbar spine from 12/15/2022 [id number] with patient and and which shows worsening [...] Mar,Levoscoliosis of lumbar spine (ICD-10 - M41.86) [place] [employer] Other 11-27-2023 Evaluation note* Encounter Date Diagnosis [...] - G89.29) Continue with current treatment plan [facility] [employer] Other [id number] [facility] Evaluation note* Encounter Date Diagnosis Assessment Notes [...] (ICD-10 - G89.29) Follow up after procedure. [employer] Other Evaluation noteNo InformationNort [employer] Other Evaluation noteNo assessment information available [facility] Work Phone: Evaluation note* Diagnosis Back pain, unspecified back location, unspecified back pain laterality, unspecified chronicity- Primary [facility] Diagnosis Spinal stenosis of lumbar region with neurogenic claudication documented in this encounter [facility] Work Phone: Evaluation note* Diagnosis Spinal [...] with neurogenic claudication documented in this encounter [facility] Work Phone: Evaluation note* Diagnosis Lumbar [...] Constipation due to pain medication Psoriatic arthritis ([facility]) Psoriatic arthropathy Spinal stenosis of lumbar region with neurogenic claudication Sagittal plane imbalance Other curvatures of spine associated with other conditions Scoliosis of thoracolumbar region due to degenerative disease of spine in adult Lumbar foraminal stenosis Lumbar radiculopathy, acute Lumbar stenosis with neurogenic claudication documented in this encounter [facility] Work Phone: [phone] note* Diagnosis Status post spinal surgery Other postprocedural status documented in this encounter [facility] Work Phone: [phone] note* Diagnosis Postoperative follow-up- Primary Follow-up examination, following unspecified surgery documented in this encounter [facility] Work Phone: [phone] note* Diagnosis S/P lumbar spinal fusion Arthrodesis status Scoliosis of thoracolumbar region due to degenerative disease of spine in adult documented in this encounter [facility] Work Phone: [phone] note* Diagnosis Type 2 diabetes mellitus with [...] Unspecified essential hypertension documented in this encounter [facility] Healthcare[facility]* Diagnosis S/P spinal surgery- Primary Other postprocedural status documented in this encounter [facility] Work Phone: Evaluation note* Diagnosis S/P lumbar spinal fusion Arthrodesis status Scoliosis of thoracolumbar region due to degenerative disease of spine in adult documented in this encounter [facility] Work Phone: Evaluation note* Diagnosis Type [...] unspecified (CMS/HCC) documented in this encounter [facility]* Diagnosis Onset Date Resolution Status Admit Date Annual physical exam acuteOctober 2024 9:26am [facility] Work Phone: History general Narrative - Reported* Type Description Date Medical History DM Medical HistoryarthritisSurgical Historyarthroscopic right knee [id number] HistoryProcedure:eye exam;Disease:Diabetes mellitus, type 2 without comp.2013 Surgical HistorycolonoscopySurgical HistoryProcedure:Arthroscopy knee;Disease: 2004Surgical HistoryProcedure:Meds;Disease:Psoriatic ArthitisSurgical History Procedure:removed;Disease:Groin cystSurgical HistoryColonoscopy, Internal Hemorrhiods- Dr. Solorio10/02/2014Hospitalization Historysee above [employer] Other Reason for referral (narrative)* Reason *Waiting for appt Please refer to Dr Dumont for surgical evaluation Diagnosis 1 Lumbar radiculopathy (M54.16) Referral Organization [facility] Referring Provider First Name Abel Referring Provider Last Name Lori Referring Provider Specialty Pain Medici ne Referred Organization [facility] [place] urosurgery Referred Provider David Dumont Referred Address [address],[place] [address] ,[place], [place],[address] Referred Provider Specialty Neurological Surgery Referral Priority Routine General Notes Bk Hansen 02/19 01:27:01 PM > Received today, sent P2P [facility] [employer] Other Reason for referral (narrative)No reason for referral information availableMer[facility] Work Phone: Reason for visit Narrativereferred by Dr. Sandoval surgical evaluation, [facility] [employer] Other reason for visit Narrative* Imaging (Routine) - Pending ReviewSpecialtyDiagnoses / ProceduresReferred By ContactReferred To ContactRadiology Diagnoses S/P lumbar spinal fusion Scoliosis of thoracolumbar region due to degenerative disease of spine in adult Procedures XR full spine 2 view scoliosis X-ray scoliosis 2 View ([place]) [place] [id number] [address] Department of [place]rological [place] [address] Phone: tel: fax: Referral IDStatusReasonStart DateExpiration DateVisits RequestedVisits [id number] Review Perform Procedure [facility] Work Phone: Summary Purpose Family History Relationship Condition Age at Onset Recorded Date/T evie father Malignant neoplasm Unknown Diabetes mellitusUnknownNot SpecifiedHeart diseaseUnknownbrotherHeart disease Unknown Relationship Condition Age at Onset Recorded Date/T evie father Malignant neoplasm Unknown Diabetes mellitusUnknownmotherHeart diseaseUnknownbrotherHeart diseaseUnknown fatherDeceasedUnknownMalignant neoplasmUnknownfamily memberDeceasedUnknown DeceasedUnknown Advance Directives Advance Directive Response Recorded Date/ [...] Back Pain Chief Complaint M54.16 Back Pain [id number] Chief Complaint Admit Date Established Patient January 14, 2025 9 :26am Reason for Visit Admit Date Annual physical exam January 14, 2025 9:26am Reason for Referral SpecialtyDiagnoses / ProceduresReferred By ContactReferred To [facility] S/P lumbar spinal fusion Scoliosis of thoracolumbar region due to degenerative disease of spine in adult Procedures X-ray scoliosis 2 View (NON EOS) [place] [address] [address] [facility] Department of [place] [address] Referral IDStatusReasonStchester DateExpiration DateVisits RequestedVisits [id number] Perform Procedure /[id number] / ProceduresReferred By ContactReferred To [facility] Diagnoses Status post spinal surgery Procedures X-ray scoliosis 2 View ([place]) [place] [address] [address] Department [place] [address] Referral IDStatusReasonStart DateExpiration DateVisits RequestedVisits [id number] Perform Procedure /[id number] / ProceduresReferred By ContactReferred To [facility] Diagnoses Lumbar [place], [place] [address] [address] Department [place] [address] Referral IDStatusReasonStart DateExpiration DateVisits RequestedVisits [id number] Specialty Services Required /[id number] / ProceduresReferred By Contact Referred To Contact Diagnoses Surgery, elective Preop testing Preoperative general physical examination Procedures [place] 12 [place] [address] [address] Department of Anesthesiology/[place] [address] Referral IDStatusReasonStart DateExpiration DateVisits RequestedVisits [id number]/22/20242/[id number] / Procedures Referred By ContactReferred To ContactRadiology Diagnoses Spinal stenosis of lumbar region with neurogenic claudication Procedures X-ray scoliosis 2 View (NON EOS) [place] [address] [address] Department [place] [address] Referral IDStatusReasonStchester DateExpiration DateVisits RequestedVisits [id number] Perform Procedure /[id number] / ProceduresReferred By ContactReferred To ContactRadiology Diagnoses Back pain, unspecified back location, unspecified back pain laterality, unspecified chronicity Procedures DOWNLOAD POWERSHARE IMAGES TO Dino Syed MD [address] [place] [address] [facility] [address] [place] [address] Referral IDStatusCaylaLoving DateExpiration DateVisits RequestedVisits [id number]/18/20241/ Additional Source Comments (unrecognized sect ion and content) No Status Records FoundNo Status Records FoundNo Status Records FoundNo Status Records FoundNo Status Records FoundNo Status Records FoundNo Status Records FoundNo Status Records FoundNo Status Records Found INFORMATION SOURCE (unrecogn ized section and content) DATE CREATED AUTHOR 07/22/2022 [facility] DATE CREATED AUTHOR AUTHOR'S ORGANIZ ATION 02/19/2023 [facility] DATE CREATED AUTHOR AUTHOR'S ORGANIZ ATION 05/26/2023 [facility] DATE CREATED AUTHOR AUTHOR'S ORGANIZ ATION 06/12/2023 [facility] ([place]) DATE CREATED AUTHOR AUTHOR'S ORGANIZ ATION 12/04/2023 [facility] DATE CREATED AUTHOR AUTHOR'S ORGANIZ ATION 06/01/2024 [facility] DATE CREATED AUTHOR AUTHOR'S ORGANIZ ATION 07/17/2024 [facility] DATE CREATED AUTHOR AUTHOR'S ORGANIZ ATION 01/21/2025 [facility] REASON FOR VISIT (unrecogniz ed section and content) ReasonCommentsFollow-fg9yTbez PainFlare up in lower backReasonCommentsAnnual ExamStates he's here for an annual examEverything is going goodSpecialty Diagnoses / ProceduresReferred By ContactReferred To ContactRadiology Diagnoses S/P lumbar spinal fusion Scoliosis of thoracolumbar region due to degenerative disease of spine in adult Procedures X-ray scoliosis 2 View (NON EOS) [place] [address] [address] Department [place]rological [place] [address] Referral IDStatusReasonLoving DateExpiration DateVisits RequestedVisits [id number] Perform Procedure [id number] / ProceduresReferred By ContactReferred To ContactRadiology Diagnoses Status post spinal surgery Procedures X-ray scoliosis 2 View (NON EOS) [place] [address] [address] Department of Neurological Surgery [place] [id number] Referral IDStatusReasonStchester DateExpiration DateVisits RequestedVisits [id number] Perform Procedure [id number] / ProceduresReferred By ContactReferred To Contact Diagnoses [...] Lumbar stenosis with neurogenic claudication [M48.062] Procedures WI ARTHRODESIS COMBINED TQ 1NTRSPC LUMBAR WI OSTEOTOMY SPINE PST/PSTLAT APPR 1 VRT SGM LMBR WI ARTHRODESIS PST/PSTLAT TQ 1NTRSPC EA ADDL NTRSPC WI STACK FACETECTOMY & FORAMOTOMY 1 VRT SGM LUMBAR WI POSTERIOR SEGMENTAL INSTRUMENTATION 3-6 VRT SEG WI PELVIC FIXATION OTHER THAN SACRUM WI ALLOGRAFT FOR SPINE SURGERY ONLY MORSELIZED WI AUTOGRAFT SPINE SURGERY LOCAL FROM SAME INCISION WI STEREOTACTIC COMPUTER ASSISTED PX SPINAL WI INSJ BIOMCHN DEV INTERVERTEBRAL DSC SPC W/ARTHRD WI ARTHRODESIS CMBN TQ 1NTRSPC EACH ADDITIONAL L4-5 and L5-S1 transforaminal lumbar interbody fusion with placement of interbody cage with decompression L3-4 posterior column osteotomy with L2-3 laminectomy and facetectomy and L2-S1 instrumented fusion using local bone autograft and BMP [place]. [place] [address] [address] Department [place] [address] [facility] [address] [place] [address] [facility]erral [facility]Status[facility] DateExpiration DateVisits RequestedVisits [id number] / ProceduresReferred By ContactReferred To Contact Diagnoses Surgery, elective Preop testing Preoperative general physical examination Procedures [place] 12 [place] [address] [address] Department of Anesthesiology/[place] [address] Referral IDStatusReasonStchester DateExpiration DateVisits RequestedVisits [id number]/22/20242/[id number] / Procedures Referred By ContactReferred To ContactRadiology Diagnoses Spinal stenosis of lumbar region with neurogenic claudication Procedures X-ray scoliosis 2 View (NON EOS) [place] [address] [address] Department of Neurological Surgery [place] [phone] Referral IDStatusReasonStart DateExpiration DateVisits RequestedVisits [id number] Perform Procedure Neurosurgery office noteF/U AFTER CAUDAL EPIDURALCAUDAL EPIDURAL [...] MemberRelationshipSpecialtyStart DateEnd Date Major Stevens MD [address] [place] [address] PCP - [facility] Medicine05/17/23Team MemberRelationshipSpecialtyStart DateEnd Date Major Stevens MD [address] [place] [address] PCP - [facility] Medicine05/17/23Team MemberRelationshipSpecialtyStart DateEnd Date Major Stevens MD [address] [place] [address] [facility]05/17/23Team MemberRelationshipSpecialtyStart DateEnd Date Major Stevens MD [address] [place], [place] [address] PCP - GeneralFamily Medicine05/17/23Team MemberRelationshipSpecialtyStart DateEnd Date Major Stevens MD [address] [place] [place], [place] [address] PCP - GeneralFamily Medicine05/17/23Team MemberRelationshipSpecialtyStart DateEnd Date Major Stevens MD [address] [place] [address] PCP - GeneralFamily Medicine04/16/23Team MemberRelationshipSpecialtyStart DateEnd Date Major Stevens MD [address] [place] [address] PCP - GeneralFamily Medicine04/16/23Team MemberRelationshipSpecialtyStart DateEnd Date Major Stevens MD [address] [place] [address] PCP - GeneralFamily Medicine04/16/23Team MemberRelationshipSpecialtyStart DateEnd Date Major Stevens MD [address] [place] [address] PCP - GeneralFamily Medicine04/16/23Team MemberRelationshipSpecialtyStart DateEnd Date Major Stevens MD [address] [place], [place] [address] PCP - GeneralFamily Medicine05/17/23Team MemberRelationshipSpecialtyStart DateEnd Date Major Stevens MD [address] [place] [address] PCP - [facility] Medicine05/17/23Team MemberRelationshipSpecialtyStart DateEnd Date Major Stevens MD [address] [place] [address] PCP - [facility]04/16/23Team MemberRelationshipSpecialtyStart DateEnd Date Major Stevens MD [address] [place] [address] PCP - [facility]04/16/23Team MemberRelationshipSpecialtyStart DateEnd Date Major Stevens MD [address] [place] [phone] PCP - [facility]04/16/23Team MemberRelationshipSpecialtyStart DateEnd Date Major Stevens MD [address] [place] [phone] PCP - [facility]04/16/23 Team Status: Active Member Role/Relationship Status Dates Major Stevens MD Primary Care Provider Active Team Status: Inactive Member Role/Relationship Status Dates Major Stevens MD Primary Care Provider Active S tart: January 14, 2025 End: January 14, 2025[facility] DENNIS Stevensttending ProviderActiveStart: January 14, 2025 End: January 14, 2025Team MemberRelationshipSpecialtyStart DateEnd Date Major Stevens MD PCP - [facility] Medicine04/16/23 Scheduled Active and Recently Administ ered Medications (unrecognized section and content) Medication Order06/03/// acetaminophen (Tylenol) tablet 650 mg 650 mg, [...] RN) * 2144 (Given - Provider: Charla Pedro, DAWN) * 0151 (Given - Provider: Charla Pdero, DAWN) * 0813 (Given - Provider: Roseanne Garcia RN) * 1431 (Given - Provider: Roseanne Garcia RN) * 211 (Given - Provider: Charla Pedro, DAWN) * 0407 (Given - Provider: Charla Pedro RN) * 0849 (Given - Provider: Fernanda Zapata RN) * 1407 (Given - Provider: Fernanda Zapata RN) * 2000 (Due) bisacodyl (Dulcolax) suppository 10 mg 10 [...] * 0813 (Given - Provider: Roseanne Garcia, DAWN) * 1431 (Given - Provider: Roseanne Garcia, [...] (Given - Provider: Roseanne Garcia RN) * 1653 (Given - Provider: Roseanne Garcia, RN) * 0057 (Given - Provider: Charla [...] Hours, Daily, First dose on Sun06/01/23 at 1999, Phase II/On Unit, Apply to low back. [...] * 2100 (Medication Removed - Provider: Charla Pedro, DAWN) * 0849 (Medication Applied - Provider: Fernanda Zapata RN - Comment: mid upper back) * 2049 (Due: Medication Removed - Provider: Fernanda Zapata [...] RN) * 2112 (Given - Provider: Charla Pedro, DAWN) * 0849 (Given - Provider: Fernanda Zapata [...] (Given - Provider: Jacquelin Gaona RN) * 2100 (Not Given - Provider: Charla Pedro RN - Reason: Patient/family refused) * 0813 (Given - Provider: Roseanne Garcia RN) * 2112 (Given - Provider: Charla Pedro RN) * 0849 (Given - Provider: Fernanda Zapata RN) * 2100 (Due) Medication Order/ sodium chloride 0.9% infusion 100 mL/hr, intravenous, Continuous, Starting on Sun06/01/23 at 2000, Phase II/On Unit, Convert IV tosaline lock when taking oral fluids. Medication Order/ benzocaine-menthol (Cepastat Sore Throat) 15-3.6 mg lozenge 1 lozenge 1 lozenge, Mouth/Throat, Every 2 hour PRN, sore throat, Starting on Sun06/01/23 at 1932, Phase II/OnUnit dextrose 10 % in water [...] respiratory depression, Starting on Sun06/01/23 at 1931, PhaseII/On Unit, If respiratory rate is less [...] Sun06/01/23 at 1931, Phase II/On Unit, HOLD ANIMATION DIRECTOR Infusion and notify H.O. immediately ondansetron (Zofran) [...] second line, Starting on 06/02/23 at 0724, Ifordered PRN for pain, nurse is permitted to administer this medication for higher pain scores basedon patient preference? Yes * 0004 (Given - Provider: Charla Pedro RN) * 0430 (Given - Provider: Charla Pedro RN) * 0428 (Given - Provider: Charla Pedro, DAWN) * 1848 (Given - Provider: Roseanne Garcia, DAWN) * 0057 (Given - Provider: Charla Pedro, DAWN) * 1823 (Given - Provider: Fernanda Zapata [...] 1932, Phase II/On Unit, 2nd Line. Give WI if patient is unable to take orally. If inadequate response jqkytk55 minutes, proceed to next-line agent for same [...] provider if no further options ordered. Medication Order// lidocaine (Xylocaine) injection - Omnicell Override Pull [...] 1932, Phase II/On Unit
2nd Line. Give WI if patient is unable to take orally. If inadequate response within 60 minutes, proceed to next-line agent for same PRN reason or contact provider if no further options ordered.
Goals (unrecognized section and content) Goals may be documented in a n alternate section FOR RECORDS PERTAINING TO PATIENTS WHO ARE [...] BE BASED ON THE PRIMARY CLINICAL RECORDS. [employer] provides no warranty or guarantee of the accuracy or completeness of information in this document.
[2025-02-18 11:39] LABS: Hematocrit 43.4 % (42.0-54.0); Hemoglobin 14.1 g/dL (14.0-18.0); Immature Granulocytes Abs Auto 0.00 10^3/uL (0.00-0.03); Immature Granulocytes Pct Auto 0.0 % (0.0-0.5); Lymphocytes Absolute Auto 1.4 10^3/uL (1.2-3.8); Mean Corpuscular HGB Conc 32.5 g/dL (29.9-35.2); Mean Corpuscular Hemoglobin 28.3 pg (25.9-34.0); Mean Corpuscular Volume 87.0 fL (80.0-94.0); Platelet Count 227 10^3/uL (150-450); Red Blood Count 4.99 10^6/uL (4.70-6.10); White Blood Count 5.5 10^3/uL (4.0-11.0)
[2025-02-18 12:05] LABS: Alanine Aminotransferase 73 U/L (16-63); Albumin Globulin Ratio 0.9; Albumin Level 3.5 g/dL (3.4-5.0); Alkaline Phosphatase 106 U/L (46-116); Anion Gap 8.2; Aspartate Amino Transferase 38 U/L (15-37); Blood Urea Nitrogen 10.0 mg/dL (7.0-18.0); Calcium 9.5 mg/dL (8.5-10.1); Carbon Dioxide 31.6 mmol/L (21.0-32.0); Chloride 102 mmol/L (98-107); Estimated GFR (African America >60 (>=60 mL/min/1.73m^2); Estimated GFR (Non-African Ame >60 (>=60 mL/min/1.73m^2); Globulin 3.7 g/dL; Glucose 290 mg/dL (74-106); Potassium 3.8 mmol/L (3.5-5.1); Sodium 138 mmol/L (136-145); Total Protein 7.2 g/dL (6.4-8.2)
== END 2025-02-18 11:10 | disposition home or self-care (01) ==
LOC: LAB 11:11
PROVIDERS: PCP Family Medicine; Visit Provider Registered Nurse
DX: L40.51 Distal interphalangeal psoriatic arthropathy (principal); M15.0 Primary generalized (osteo)arthritis; Z79.899 Other long term (current) drug therapy
CPT/HCPCS: 36415; 80053; 85025; 85652

== ENCOUNTER 2025-02-26 10:51 | Outpatient (OUT) | payer OTHER, SELFPAY ==
--- OUTSIDE RECORDS SUMMARY | 2025-02-26 10:54 | XMS_ITS ---
Author Organization [facility] Address [address] [place] [address] Phone Care Team Providers Care Wrap Knitting Machine Operator Name Role Phone Major Garcia MD Primary Care Provider + Active Problems ProblemNoted DateDiagnosed DateLumbar radiculopathy, right06/01/2023Lipoprotein pgptdkowea75/05/2024hronic pain04/30/20238085Dellybmrm60/05/2024Muscle pain 04/30/2023ain of right hip joint04/30/2023soriasis with bcjpaqgsoib17/05/2024 Iliac bone pain04/30/2023Spinal stenosis of lumbar region with neurogenic bxwtoodjigrv36/30/2024Sagittal plane rjfhkokxo71/30/2024Scoliosis of thoracolumbar region due to degenerative disease of spine in adult04/24/2023 Lumbar foraminal yrxqeqhq39/30/2024Lumbar radiculopathy, acute04/24/2023Lumbar stenosis with neurogenic mrddjlijnzae80/30/2024H/O Spinal kgpokzh3804/24/2023 Flexural juippbhpc17/22/2024 Overview (04/30/2023): Last Assessment & Plan: Rash appears to be psoriasis and treat with prednisone. Use steroid cream PRN. Lumbar /13/2023 Overview (04/30/2023): Last Assessment & Plan: Pain unchanged and follow up with surgeon. Primary sayhvztrjqqa05/13/2023 Overview (04/30/2023): Last Assessment & Plan: BP controlled and monitor PRN. Type 2 diabetes mellitus with hyperglycemia, without long-term current use of yscfzea0403/07/2023 Overview (04/30/2023): Last Assessment & Plan: BS improved with jardiance and continue. Stick to ADA diet and limit carbs. Pain in left leg3Pain in right hip10/16/2022Other prison (current) drug zqebmcm42/29/2023Psoriatic bqstluntlkk13/26/2023Poorly controlled diabetes iqpfqtfx11/23/2022 Current Treatment and Therapy Plans No current plan information found. Past Treatment and Therapy Plans No past plan information found. Lifetime Dose Tracking * ChemicalLifetime DoseAutomatic EntryManual EntryAir Kerma2,173.322 mGy 2,173.322 mGy0 mGy Resolved Problems ProblemNoted DateDiagnosed DateResolved DateMalignant neoplasm of prostate
--- OUTSIDE RECORDS SUMMARY | 2025-02-26 10:54 | XMS_ITS | Clinical Summary ---
Author Organization [facility] [facility] tem Address [facility] [id number] [address] [place] [address] Care Team Providers Care Ceramics Technician Name Role Phone Unavailable Primary Care Provider Unavailabl e Social History Tobacco UseTypesPacks/DayYears UsedDateSmoking Tobacco: Never AssessedChildcare AnswerDate LtxnfitjRosyzmudtSugoxpl94/12/2019EmploymentAnswerDate Recorded BtteketclkHwqaele39/12/2019Purpose - LifeAnswerDate RecordedPurpose and direction in xyjbMuruani43/11/2021ex and Gender InformationValueDate Recorded Sex Assigned at BirthNot on fileLegal XogUgyt7810/29/2014 11:23 AM EDTGender IdentityNot on fileSexual OrientationNot on file Plan of Treatment Health MaintenanceDue DateLast DoneCommentsDepression Idcbjhcoi19/21/1975Tobacco Krixjoovc26/21/1975Adult BMI Wrkhpmsqp19/21/1981DTaP,Tdap and Td Vaccines (1 - Tdap)1981Zoster (Shingles) Vaccine (1 of 2)2012Influenza Vaccine 11/24/2024RSV ( or age 60+ yrs) (1 - 1-dose 75+ series)2037 [employer] Not on file Insurance
--- OUTSIDE RECORDS SUMMARY | 2025-02-26 10:54 | XMS_ITS | Clinical Summary ---
Author Organization [facility] Address [address] [facility] [place] [address] Care Team Providers Care Brush Fabrication Supervisor Name Role Phone Unavailable Primary Care Provider Unavailabl e Source Comments The following information is NOT included in Care Everywhere downloads:Psychiatric notes, ECG results, Cardiac Rehab notes, Pulmonary Function notes, data from SmartForms (includes but not limited toPregnancy data,audiograms, eye exams, pre-surgical evaluation notes, well-child exam data).[facility] Social History Tobacco UseTypesPacks/DayYears UsedDateSmoking Tobacco: Never AssessedSex and Gender InformationValueDate RecordedSex Assigned at BirthNot on fileLegal Sex Male04/11/2023 9:21 AM ESTGender IdentityNot on fileSexual OrientationNot on file Plan of Treatment Health MaintenanceDue DateLast TpycTqepzphkFtetadiwvox49/21/1963HIV Test 1977Hepatitis C Fqitirnw77/21/1981Tdap Fhamdjn2305/16/1980Hepatitis A (HAV) Vaccine (optional start 19+ years)05/16/19817588Ksbzmpmybxs28/21/1998CRC Screening 2007Cologuard (Stool DNA)2007FIT2007Pneumococcal Vaccine(s) (50+ yrs) (1 of 1 - PCV)2012Shingles (RZV) Vaccine (1 of 2)2012 Hepatitis B (HBV) Vaccine (optional start 60+ years)3COVID-19 Vaccine (2 - 2024-26 season)506/12/2020Influenza Vaccine (#1)2024RSV vaccine (adult) (1 - 1-dose 75+ series)2037 Insurance * Guarantor: Lobito Tomlin TypeRelation to PatientDate of BirthPhone Billing AddressPersonal/KqtdhuYbxx28/21/1961 ([place]) [address] [place] [address]
--- OUTSIDE RECORDS SUMMARY | 2025-02-26 10:54 | XMS_ITS | Clinical Summary ---
Author Organization [facility] Address [address] [place] [address] Phone Care Team Providers Care [employer] Name Role Phone Major Garcia MD Primary [...] Active Problems ProblemNoted DateDiagnosed DateLumbar radiculopathy, right06/01/2023Lipoprotein jilcyntfem01/05/2024hronic pain04/30/20231771Dpsleiawv59/05/2024Muscle pain 04/30/2023ain of right hip joint04/30/2023soriasis with ywjaxoyukea71/05/2024 Iliac bone pain04/30/2023Spinal stenosis of lumbar region with neurogenic wybqqwkqeblt08/30/2024Sagittal plane uybjfuvnx34/30/2024Scoliosis of thoracolumbar region due to degenerative disease of spine in adult04/24/2023 Lumbar foraminal qlsyryyz39/30/2024Lumbar radiculopathy, acute04/24/2023Lumbar stenosis with neurogenic vohirofwnuhj29/30/2024H/O Spinal uzqzrdh7504/24/2023 Flexural /22/2024 Overview (04/30/2023): Last Assessment & Plan: Rash appears to be psoriasis and treat with prednisone. Use steroid cream PRN. Lumbar ayoqgovrwib95/13/2023 Overview (04/30/2023): Last Assessment & Plan: Pain unchanged and follow up with surgeon. Primary myszfaiczftj16/13/2023 Overview (04/30/2023): Last Assessment & Plan: BP controlled and monitor PRN. Type 2 diabetes mellitus with hyperglycemia, without long-term current use of bdfzfxi9503/07/2023 Overview (04/30/2023): Last Assessment & Plan: BS improved with jardiance and continue. Stick to ADA diet and limit carbs. Pain in left leg01/06/2023ain in right hip10/16/2022Other console attendant (current) drug /29/2023Psoriatic xgvuxmpqbnn67/26/2023oorly controlled diabetes qauwjpfx21/23/2022 Resolved Problems ProblemNoted DateDiagnosed DateResolved DateMalignant neoplasm [...] Last Filed Vital Signs Vital SignReadingTime TakenCommentsBlood Gapjzklh768/9405/27/2024 10:45 AM EST Jfddb119605/27/2024 10:45 AM SPNIvzjysulohw32.7 ??C (96.3 ??F)05/27/2024 10:45 AM ESTRespiratory Ikpc009405/27/2024 10:45 AM ESTOxygen Gtkxlizuti33%06/06/2023 4:00 PM EDTInhaled Oxygen Concentration--Eiixgb81.5 kg (204 lb)05/27/2024 10:45 AM ZRXNykccp230.8 cm (5' 10 )08/14/2023 2:31 PM EDTBody Mass Index29.27008/14/2023 2:31 PM EDT Plan of Treatment DateTypeDepartmentCare Team (Latest Contact Info)Umcalmcnsas08/03/2026 11:00 AM ESTOffice Visit [facility] [address] [facility] [address] [place] [address] [place] [id number] Department of Neurological Surgery [place], [place] [id number] Health MaintenanceDue DateLast DoneCommentsCT Togelllwlkpc81/21/1963Diabetes: Urine Protein Mjdqkpaxo95/21/1963FIT-DNA (Cologuard)1962FIT1962HIV Eiofytfmd53/21/1963Lipid Panel1962 0359Oexddnjxonbqh97/21/1963Yearly Adult Ixahrtye03/21/1963MMR Vaccines (1 of 1 - Standard series)1963Diabetes: Retinopathy Zebxnesfy33/21/1973Hepatitis C Snhahcddp22/21/1981Pneumococcal Vaccine (1 of 2 - PCV)1981DTaP/Tdap/Td Vaccines (1 - Tdap)1984PSA Prostate Cancer Octyfietl82/21/2013RSV High Risk: (Elderly (60+) or Population) (1 - Risk 50-74 years 1-dose series)2012Zoster Vaccines (1 of 2)2012COVID-19 Vaccine (2 - Bev risk series)/12/2020 Diabetes: Hemoglobin A1C07/23//1122Fhkvzavizji07/10/202507/12/2014 Colorectal Cancer Ecsvrzapd75/10/2025Influenza Vaccine (#1), 01/06/2015HIB VaccinesAged OutNo longer eligible [...] IdentifierShelf Expiration DateModel / Serial / LotModulus Tlif-A,[id number] 8 Degree Implanted:Qty: 1 on 06/01/2023 by [facility]: Spine LumbarNUVASIVE [id number] / / [id number]:Per bill only jdr 06/03Moduls Tlif- [id number] 8 Degree Implanted:Qty: 1 on 06/01/2023 by [facility]ageBilateral: Spine LumbarNUVASIVE [id number] / / [id number]:Per bill only jdr 06/03Infuse Bmp Small - [id number] - [id number] Implanted:Qty: 1 on 06/01/2023 by [facility]GraftN/A: Spine LumbarMEDTRONIC INC:SOFAMOR [id number] / [id number] / Screw, Reline Lock, 5.5mm Open Tulip - [id number] Implanted:Qty: 16 on 06/01/2023 by [facility] Interventional ImplantBilateral: Spine LumbarNUVASIVE [id number] / / Screw, Reline-O, 7.5x50mm 2s Polyaxial - [id number] Implanted:Qty: 1 on 06/01/2023 by [facility]wB[facility]: Spine LumbarNUVASIVE [id number] / / Reline-O Conn, 5-6/5-6mm O-O Med - [id number] Implanted:Qty: 1 on 06/01/2023 by [facility]wBilateral: Spine LumbarNUVASIVE [id number] / / Screw, Reline-O, 8.5x50mm 2s Polyaxial - [id number] Implanted:Qty: 1 on 06/01/2023 by [facility]wBilateral: Spine LumbarNUVASIVE [id number] / / Screw, Reline-O, 8.5x80mm 2s Poly Iliac - [id number] Implanted:Qty: 2 on 06/01/2023 by [facility]wBilateral: Spine LumbarNUVASIVE [id number] / / Screw, Reline-O, 6.5x45mm 2s Polyaxial - [id number] Implanted:Qty: 5 on 06/01/2023 by [facility]wBilateral: Spine LumbarNUVASIVE [id number] / / Screw, Reline-O, 7.5x45mm 2s Polyaxial - [id number] Implanted:Qty: 4 on 06/01/2023 by [facility]crewBilateral: Spine LumbarNUVASIVE [id number] / / Unid Exp Ti Franklin 5.5mm 4+ Lv Implanted:Qty: 2 on 06/01/2023 by [facility] Centerpinal HardwareN/A: Spine LumbarMEDTRONIC [id number] / [id number] / 20mm Offset Open Implanted:Qty: 1 on 06/01/2023 by [facility] Centerpinal HardwareBilateral: Spine LumbarNUVASIVE [id number] / / Description:Per bill only jdr 06/03 Procedures Procedure NamePriorityDate/TimeAssociated DiagnosisCommentsHEMOGLOBIN Z0ZNskkdxq 04/24/2023 11:24 AM EST Spinal stenosis of lumbar region with neurogenic claudication from Last 3 Months or Most Recently Relevant to Health Maintenance Results * (ABNORMAL) Hemoglobin A1c (04/24/2023 11:24 AM EST)ComponentValueRef RangeTest MethodAnalysis TimePerformed AtPathologist SignatureHemoglobin A1C6.8(H)see below %04/25/2023 12:39 AM [facility] LABEstimated Average Uznfdwu749Nsu Established mg/dL04/25/2023 12:39 AM [facility] LABSpecimen (Source)Anatomical Location / LateralityCollection Method / VolumeCollection TimeReceived Time BloodVenous blood specimen / UnknownVenipuncture / Msqlhfp9604/24/2023 11:24 AM EST04/24/2023 11:24 AM EST Narrative [facility] - 04/25/2023 12:39 AM EST [...] MDLAB BLOOD ORDERABLESFinal ResultPerforming OrganizationAddressCity/State/ZIP CodePhone Number [facility] [address] [facility] [id number] [place] [phone] from Last 3 Months or Most Recently Relevant to Health Maintenance Additional Health Concerns Active ProblemsNoted DateDiagnosed DatePatient has spine pfryuew4004/24/2023 Advance Directives For more information, please contact: [phone] (Available ) * Full Code (Latest Code Status on File) Date ActivatedDate InactivatedComments06/01/2023 7:32 PMQuestionAnswerCommentsPlan of Care:* Code Status Discussion Completed Decision Maker:* Patient Care Teams Team MemberRelationshipSpecialtyStart DateEnd Date Major Garcia MD [address] [place] [address] [facility]05/17/23
--- OUTSIDE RECORDS SUMMARY | 2025-02-26 10:54 | XMS_ITS | Clinical Summary ---
Author Organization [facility] Address [address] [place] [address] Care Team Providers Care Concreting Supervisor Name Role Phone Major Garcia MD Primary Care Provider Allergies No known active allergies Medications MedicationSigDispense [...] therapy. Encounter for long-term (current) use of avprzowogzq70/24/2024Screening PSA (prostate specific antigen)10/17/2023Obesity (BMI 30-39.9)10/17/2023Flexural moavhnenc58/22/2024 Assessment & Plan (10/17/2023 9:52 AM EDT): Increased rash and use steroid cream. Assessment & Plan (07/16/2023 9:50 AM EDT): Rash improved and use steroid cream PRN. Assessment & Plan (04/16/2023 3:14 PM EST): Rash appears to be psoriasis and treat with prednisone. Use steroid cream PRN. Type 2 diabetes mellitus with hyperglycemia, without long-term current use of anwgliq8603/07/2023 Assessment & Plan (07/16/2024 9:49 AM EDT): [...] to ADA diet and limit carbs. Psoriatic sidzijnzj78/13/2023 Assessment & Plan (07/16/2023 9:50 AM EDT): Pain stable and continue methotrexate. Follow with specialists. Lumbar riphgpkggqa07/13/2023 Assessment & Plan (07/16/2024 9:48 AM EDT): [...] abnormal MRI. Follow up with surgeon. Essential vhijdnuaejsd19/13/2023 Assessment & Plan (07/16/2024 9:48 AM EDT): [...] drink = 0.6 oz pure alcohol)caffeine: soda, uyhdibxtqD7906 Health LiteracyAnswerDate Recorded How often do you [...] Twice a week07/09/2024How often do you attend uatsdin or rastafarian services?1 to 4 times per year07/09/2024Do you belong to any clubs or organizations such as uatsdin groups, unions, fraTop Rops or athletic groups, or school groups?No 07/09/2024How often do you attend meetings of the clubs or organizations you belong to?Never07/09/2024re you , , , , never , or living with a partner?Zpthack6507/09/2024UDIT-CAnswerDate RecordedQ1: How often do you have a [...] food, housing, medical care, and heating?Not very hard07/09/2024[facility] [place] [facility] - Occupational Stress QuestionnaireAnswerDate [...] sleep or slept in ashelter (including now)?Patient rtowbly7102/28/2023Housing Stability Vital SignAnswerDate RecordedIn the last 12 months, was there a time when you were not able to pay the mortgage or rent on time?No07/09/2024In the past 12 months, how many times have you moved where you were living?t any time in the past 12 months, were you homeless or living in a half-way (including now)?No 07/09/2024Sex and Gender InformationValueDate RecordedSex Assigned at BirthNot on fileLegal FgqPmnw8506/07/2022 7:00 PM EDTGender IdentityNot on fileSexual OrientationNot on file Last Filed Vital Signs Vital SignReadingTime TakenCommentsBlood Panjhkcl026/7204 9:15 AM EDT Jhosy1295 9:15 AM PNRTmevpxsaazk38.4 ??C (97.5 ??F)07/16/2024 9:15 AM EDTRespiratory Obgb662607/16/2024 9:15 AM EDTOxygen Kamatayfiy09%07/16/2024 9:15 AM EDTInhaled Oxygen Concentration--Acgeko39.3 kg (208 lb)07/16/2024 9:15 AM EDT Uczvhl694.8 cm (5' 10 )07/16/2024 9:15 AM EDTBody Mass Index29.8404/ 9:15 AM EDT Plan of Treatment Not on file Insurance Care Teams Team MemberRelationshipSpecialtyStart DateEnd Date Major Garcia MD PCP - GeneralFamily Medicine04/16/23
--- OUTSIDE RECORDS SUMMARY | 2025-02-26 11:00 | XMS_ITS | CCD ---
Author Organization [facility] CliniSyde Care Team Providers Care Stripper Shovel Operator Name Role Phone VALERIE, DR RANDALL Attending [...] DR MAJOR Martinez Attending Unavailable NADERER, DR MAOJR Martinez Consulting Unavailable NADERER, DR MAJOR Martinez [...] MD Major Stevens Primary Care Provider Ector HAND COLLATOR Sully Attending Provider MD Abel Sandoval Attending [...] Unavailable Major Stevens MD Primary Care Provider [phone] Major Stevens MD Attending Provider Tomy MINA Attending Unavailable MAJOR STEVENS Referring Unavailable Major Stevens MD Primary Care Provider Medications Current Medications MedicationDrug Class(es)DatesSig (Normalized)Sig (Original)acetaminophen 325 mg oral tablet (8 sources)Start: 55-31-4979rtrwwhordpele (Tylenol) 325 mg tablet Indications: Postoperative pain Take 2 tablets (650 mg) by mouth every 6 hours. Take every 6 hours scheduled while having pain then take only as needed for Mild pain 06/06/2023 ActiveStart: 54-22-8663vfzc 1 tablet by mouth every six ymmbl250 mg, oral, Every 6 hours, First dose on Sun06/01/23 at 2000, Phase II/On Unit If ordered PRN for pain, nurse is permitted to administer this medication for higher pain scores based on patient preference? Yes End: 91-28-3789spke 2 tablets by mouth twice dailyacetaminophen (Tylenol) 500 mg tablet Take 2 tablets (1,000 mg) by mouth 2 times a day. Patient takes #2 tablets 2-3 times a day as needed 0 06/06/2023 Discontinued (Stop Taking at Discharge)atorvastatin 40 mg oral tablet (13 sources)HMG-CoA Reductase InhibitorStart: 25-78-6921npvm 1 tablet by mouth once daily at bedtimeAtorvastatin 40 mg tablet Active 40 MG PO Daily at bedtime 90 November 27, 2024 12:00am Complies with drug therapyStart: 35-33-7975dppf 1 tablet by mouth at bedtimeatorvastatin (Lipitor) [...] 10 mg rectal suppository (1 source)Stimulant LaxativeStart: 83-70-5675zfwfivufd (Dulcolax) suppository 10 mgchlorhexidine gluconate 40 mg/ml medicated liquid soap (5 sources)Start: 05-17-2023 End: 12-00-5170tephtypzwncos (Hibiclens) 4 % external liquid Indications: Lumbar stenosis with neurogenic claudication , Surgery, elective , Preop testing , Preoperative general physical examination Apply topicallyonce daily as needed for wound care for up to 5 days. 473 mL 0 05/17/2023 05/22/2023 ActiveStart: 05-17-2023 End: 55-77-1768lsuixlwtotysm (Peridex) 0.12 % solution Indications: Lumbar stenosis with neurogenic claudication ,Surgery, elective , Preop testing , Preoperative general physical examination Use 15 mL in the mouth or throat if needed for wound care for up to 14 days. 120 mL 0 05/17/2023 06/06/2023 Discontinued (Stop Taking at Discharge)cyclobenzaprine hydrochloride 10 mg oral tablet (9 sources)Muscle RelaxantStart: 36-94-6007hejh 1 tablet by mouth three times daily as needed for muscle spasmsCyclobenzaprine 10 mg tablet Active 10 MG PO Three times daily as needed for muscle spasm January 13, 2025 12:00am Complies with drug therapyStart: 23-91-3889zhni 1 tablet by mouth three times daily as needed for muscle spasmscyclobenzaprine (Flexeril) 10 MG tablet Indications: Lumbar spondylosis Take 1 tablet (10 mg) by mouth 3 (three) times a day as needed for muscle spasms 30 tablet 2 07/16/2024 ActiveStart: 58-12-4943ahpv 1 tablet by mouth three times daily as needed for muscle spasmscyclobenzaprine (Flexeril) 10 MG tablet Indications: Lumbar spondylosis Take 1 tablet (10 mg) by mouth 3 (three) times a day as needed for muscle spasms 30 tablet 2 07/16/2024 ActiveStart: 06-01-2023 End: 08-17-9913hhoe 1 tablet by mouth three times daily as needed for muscle spasmscyclobenzaprine (Flexeril) 10 mg tablet Indications: Postoperative pain Take 1 tablet (10 mg) by mouth 3 times a day as needed for muscle spasms for up to 7 days. 21 tablet 06/06/2023 Activedocusate sodium 50 mg / sennosides, half-way 8.6 mg oral tablet (2 sources)Start: 06-01-2023 End: 91-09-7837gzut 2 tablets by mouth twice dailysennosides-docusate sodium (Marycruz-Colace) 8.6-50 mg tablet Indications: Constipation due to pain medication Take 2 tablets by mouth 2 times a day for 7 days. Take while taking pain medication oxycodone to prevent constipation 28 tablet 0 06/06/2023 06/13/2023 Activeempagliflozin 25 mg oral tablet (20 sources)Sodium-Glucose Cotransporter 2 InhibitorStart: 79-81-0764owxu 1 tablet by mouth once daily in the morningEmpagliflozin 25 mg tablet Active 25 MG PO Every morning January 13, 2025 12:00am Complies with drug therapyfolic acid 1 mg oral tablet (20 sources)Start: 75-33-4322tuht 1 tablet by mouth once daily in the morning Folic Acid 1 mg tablet Active 1 MG PO Every morning January 13, 2025 12:00am Complies with drug therapygabapentin 300 mg oral capsule (16 sources)Anti-epileptic AgentStart: 71-95-2799rrhd 1 capsule by mouth every twenty-four hoursGabapentin 300 MG 1 capsule Orally Once a day for 30 days Mar, ActiveStart: 11-12-2018 End: 70-58-3754qztf 1 tablet by mouth three times dailyGabapentin 300 mg capsule Discontinued 1 TAB PO Three times daily November 12, 2018 12:00am 2024 1:30pmglipiZIDE 10 mg oral tablet (20 sources)SulfonylureaStart: 35-77-6227njmu 1 tablet by mouth twice daily Glipizide 10 mg tablet Active 10 MG PO Twice daily January 13, 2025 1:30pm Complies with drug therapyStart: 92-06-2508xmgr 1 tablet by mouth twice daily glipiZIDE (Glucotrol) 10 MG tablet Indications: Type 2 diabetes mellitus with hyperglycemia, without long-term current use of insulin (HCC) TAKE 1 TABLET BY MOUTH TWICE DAILY 180 tablet 3 06/09/2024 ActiveStart: 92-95-2220luxe 1 tablet by mouth twice dailyglipiZIDE (Glucotrol) 10 MG tablet Indications: Type 2 diabetes mellitus with hyperglycemia, without long-term current use of insulin ([facility]) TAKE 1 TABLET BY MOUTH TWICE DAILY 180 tablet 3 05/09/2023 Active Start: 11-12-2018 End: 34-61-3868czde 1 tablet by mouth once dailyGlipizide 10 [...] 5000 unt/ml injection (1 source)Unfractionated Heparin, Anti-coagulantStart: 29-39-2416ilirih 5000 [IU] by subcutaneous injection every eight [...] 20 mg oral tablet (20 sources)Antirheumatic AgentStart: 86-97-4198etrs 1 tablet by mouth once dailyleflunomide (Arava) 20 mg tablet Indications: Psoriatic arthritis (Multi) Take 1 tablet (20 mg) by mouth once daily. DO NOT RESUME UNTIL 06/15/2023 Do not start before June 15, 2023. 06/15/2023 ActiveStart: 11-72-5556cosf 1 tablet by mouth once dailyleflunomide (Arava) 20 mg tablet Indications: Psoriatic arthritis (CMS/HCC) Take 1 tablet (20 mg) by mouth once daily. DO NOT RESUME UNTIL 06/15/2023 Do not start before June 15, 2023. 0 06/15/2023 ActiveStart: 11-12-2018 End: 67-33-0549boun 1 tablet by mouth once dailyLeflunomide 20 mg Tablet Active 1 TAB PO Daily November 12, 2018 12:00am Complies with drug therapylidocaine 0.04 mg/mg medicated patch (2 sources)Antiarrhythmic, Amide Local AnestheticStart: 06-07-2023 End: 86-30-4251xpzyc 1 dose transdermal route every twelve hours [...] oral tablet (13 sources)Angiotensin 2 Receptor BlockerStart: 59-22-2475ozat 1 tablet by mouth once dailyLosartan 25 mg tablet Active 25 MG PO Daily 22 08November 27, 2024 12:00am Complies with drug therapyStart: 28-20-7322leqg 1 tablet by mouth once dailylosartan (Cozaar) 25 MG tablet Indications: Essential hypertension TAKE 1 TABLET(25 MG) BY MOUTH DAILY 90 tablet 3 10/17/2023 ActivemetFORMIN hydrochloride 1000 mg oral tablet (20 sources)BiguanideStart: 60-79-4739czsk 1 tablet by mouth twice daily Metformin 1,000 mg tablet Active 1000 MG PO Twice daily January 13, 2025 1:31pm Complies with drug therapyStart: 55-48-4016tcdu 1 tablet by mouth twice dailymetFORMIN (Glucophage) 1000 MG tablet Indications: Essential hypertension TAKE 1 TABLET BY MOUTH TWICE DAILY 180 tablet 3 06/09/2024 ActiveStart: 73-01-9810yorc 1 tablet by mouth twice dailymetFORMIN (Glucophage) 1000 MG tablet Indications: Essential hypertension (CMS/HCC) TAKE 1 TABLET BY MOUTH TWICE DAILY 180 tablet 3 05/09/2023 ActiveStart: 11-12-2018 End: 40-39-5813nicb 1 tablet by mouth once dailyMetformin 1,000 mg tablet Discontinued 1 TAB PO Daily November 12, 2018 12:00am January 13, 2025 1:33pm methotrexate 2.5 mg oral tablet (20 sources)Folate Analog Metabolic InhibitorStart: 68-99-8519pdqr 3 tablets by mouth every weekMethotrexate Sodium 2.5 mg tablet Active 7.5 MG PO Once a week January 13, 2025 1:32pm Complies with drug therapyStart: 99-99-8024owzj 3 tablets by mouth every weekmethotrexate (Trexall) 2.5 mg tablet Indications: Psoriatic arthritis (Multi) Take 3 tablets (7.5 mg total) by mouth 1 (one) time per week. Follow directions carefully, and ask to explain any part you do not understand. Take exactly as directed. Takes on Sunday. DO NOT RESUME UNTIL 06/15/2023 06/15/2023 ActiveStart: 69-38-1685ntdd 3 tablets by mouth every week methotrexate (Trexall) 2.5 mg tablet Indications: Psoriatic arthritis (CMS/HCC) Take 3 tablets (7.5mg total) by mouth 1 (one) time per week. Follow directions carefully, and ask to explain any part you do not understand. Take exactly as directed. Takes on Sunday. DO NOT RESUME UNTIL 06/15/2023 0 06/15/2023 Active Start: 11-12-2018 End: 84-15-1686dhmg 1 tablet by mouth once dailyMethotrexate Sodium 2.5 mg tablet Discontinued 2.5 MG PO Daily May 22, 2019 1:00am January 13, 2025 1:33pmStart: 11-12-2018 End: 50-08-7031dasu 3 tablets by mouth once dailyMethotrexate Sodium 2.5 mg tablet Discontinued 3 TAB PO Daily November 12, 2018 12:00am May 22, 2019 12:53pm End: 80-46-9898qkax 3 tablets by mouth every weekmethotrexate 2.5 [...] Sun06/01/23 at 1932, Phase II/On Unit HOLD BLOCK PLACER Infusion and notify H.O. immediatelyStart: .2 mg, intravenous, Every 5 min PRN, respiratory depression, Starting on Sun06/01/23 at 1932, PhaseII/On Unit If respiratory rate is less than 8 breaths/minute or patient is difficult to arouse stopany narcotics and contact physician. Administer slow IV push. Repeat as ordered until patient's respiratory rate is greater than 12 breaths/minute. Ondansetron (1 source)Serotonin-3 Receptor AntagonistStart: 33-63-9477nfsl 1 tablet by mouth every eight hours as neededondansetron (Zofran) tablet 4 mgoxygen (O2) therapy (2 sources)Start: 04-41-4564shznurhdye, Continuous PRN - O2/gases, other, Starting on Sun06/01/23 at 1932, Phase II/On Unit Titrate supplemental oxygen to maintain SpO2 greater than or equal to 92 Device: Nasal Cannula Rate in liters per minute: 2 LPM Keep O2 Sat Above: 92%Start: 06-01-2023 End: 76-78-8144wwrcdg (O2) therapypioglitazone 45 mg oral tablet (20 sources)Peroxisome Proliferator Receptor alpha Agonist, Peroxisome Proliferator Receptor gamma Agonist, ThiazolidinedioneStart: 76-12-7916fkjv 1 tablet by mouth once daily in the morningPioglitazone 45 mg tablet Active 45 MG PO Every morning January 13, 2025 12:00am Complies with drug therapyStart: 52-13-5427zkjr 1 tablet by mouth in the morningpioglitazone (Actos) 45 MG tablet Indications: Type 2 diabetes mellitus with hyperglycemia, withoutlong-term current use of insulin ([facility]) TAKE 1 TABLET(45 MG) BY MOUTH IN THE MORNING 90 tablet 3 08/04/2024 ActiveStart: 28-02-0371gxnu 1 tablet by mouth in the morning pioglitazone (Actos) 45 MG tablet Indications: Type 2 diabetes mellitus with hyperglycemia, withoutlong-term current use of insulin ([facility]/HCC) TAKE 1 TABLET(45 MG) BY MOUTH IN THE MORNING 90 tablet ActiveStart: 11-12-2018 End: 38-69-7378fxpu 1 tablet by mouth once dailyPioglitazone 30 mg tablet Discontinued 1 TAB PO Daily November 12, 2018 12:00am January 13, 2025 1:32pm polyethylene glycol 3350 91466 mg powder for oral solution (2 sources)Osmotic LaxativeStart: 06-01-2023 End: 24-70-2968liukykuoqioz glycol (Glycolax, Miralax) packet 17 gpredniSONE 50 mg oral tablet (3 sources)Start: 07-16-2024 End: 84-91-1862julj 1 tablet by mouth once dailypredniSONE (Deltasone) 50 MG tablet Indications: Lumbar spondylosis Take 1 tablet (50 mg) by mouth Daily for 6 days 6 tablet 07/16/2024 07/22/2024 ActivePromethazine (1 source)PhenothiazineStart: 96-53-5522yerx 1 tablet by mouth every six hours as neededpromethazine (Phenergan) tablet 25 yv0599 ml sodium chloride 9 mg/ml injection (1 source)Start: 14-07-7893bbjn 100 mL intravenously every izwm895 mL/hr, intravenous, Continuous, Starting on Sun06/01/23 at 2000, Phase II/On Unit Convert IV to saline lock when taking oral fluids.triamcinolone acetonide 5 mg/ml topical cream (20 sources)CorticosteroidStart: 28-01-8072Bvksfsnvdkrhc Acetonide 0.5 % cream Active 1 APPLIC TOPICAL Three times daily January 13, 2025 12:00am Complies with drug therapyStart: 18-43-7826okybhodvgwfxt (Kenalog) 0.5 % cream Indications: Flexural psoriasis Apply topically 3 (three) timesa day 60 g 3 04/16/2023 ActiveStart: 16-84-4124Emuuged -40 mg 08 Nov, 2019 40 mgVitamin D3 (7 sources)Vitamin D3 Active Completed/Discontinued Medications MedicationDrug Class(es)DatesSig (Normalized)Sig (Original)calcium chloride 0.0014 meq/ml / potassium chloride 0.004 meq/ml / sodium chloride 0.103 meq/ml / sodium lactate 0.028 meq/ml injectable solution (1 source)Start: 06-01-2023 End: 82-83-2560jheugvem Ringer's infusioncholecalciferol 0.025 mg oral capsule (3 sources)Vitamin DStart: 11-12-2018 End: 72-57-2849xckd 1 tablet by mouth once dailyCholecalciferol (Vitamin D3) (Vitamin D3) 1,000 unit Capsule Discontinued 1 TAB PO Daily November 12, 2018 12:00am January 13, 2025 1:30pm1 ml HYDROmorphone hydrochloride 1 mg/ml cartridge (1 source)Opioid AgonistStart: 06-01-2023 End: 29-71-3640BUSFMhbewkzae (Dilaudid) injection 0.5 mghydromorphone BLOCK PLACER 0.5 mg/mL in NS opioid naive (1 source)Start: 06-01-2023 End: 85-18-5300Dxagu Loading Dose: Not Ordered Patient Bolus Dose: 0.2 mg Lockout Interval: 10 Minutes Basal Rate:0 mg/hr One Hour Dose Limit: 1.2 mg intravenous, Continuous, Starting on Sun06/01/23 at 2000, Phase II/On Unit ibuprofen 800 mg oral tablet (10 sources)Nonsteroidal Anti-inflammatory DrugStart: 11-12-2018 End: 58-85-0297pmbw 1 tablet by mouth three times dailyIbuprofen 800 mg tablet Discontinued 1 TAB PO Three times daily November 12, 2018 12:00am January 14, 2025 9:36am1 ml ketorolac tromethamine 30 mg/ml injection (1 source)Nonsteroidal Anti-inflammatory Drug, Cyclooxygenase InhibitorStart: 06-02-2023 End: 82-08-814227 mg, intravenous, Every 8 hours scheduled, First dose on Sun06/02/23 at 0600, For 3 days Do not administer within 6 hours of other NSAIDs (such as ibuprofen or naproxen).oxyCODONE hydrochloride 5 mg oral tablet (3 sources)Opioid AgonistStart: 06-02-2023 End: 83-85-5959jssj 1 tablet by mouth every four hours as neededoxyCODONE (Roxicodone) immediate release tablet 10 mgStart: 06-02-2023 End: 65-65-4500trbn 1 tablet by mouth every six hours [...] release oral tablet (3 sources)Start: 06-06-2023 End: 06-40-0594afcdgzudt chloride CR (Klor-Con M20) ER tablet 40 mEqStart: 06-02-2023 End: 53-81-4344wfbregkdf chloride CR (Klor-Con M20) ER tablet 40 mEqStart: 06-01-2023 End: 10-04-1210ldlcqabln chloride 20 mEq in 100 mL IV premixtiZANidine 4 mg oral tablet (10 sources)Central alpha-2 Adrenergic AgonistStart: 11-12-2018 End: 88-39-7401ghri 1 tablet by mouth once daily at [...] with hyperglycemia; 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: [Diabetic - poor control]Onset: 73-74-3550OnavtocMleigres mellitus without complication (7 sources)Type 2 diabetes mellitus; 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: [Type 2 diabetes mellitus without complications]ChronicEssential hypertension (20 sources)Essential hypertension; 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: [Essential (primary) hypertension]Onset: 305370-88-6628HtwkkqoYtjhx acquired deformities (3 sources)Scoliosis of lumbar spine; 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: [Other forms of scoliosis, lumbar region]22-29-9087LlqmrubAaonw acquired deformities (1 source)Other forms of scoliosis, lumbar regionChronicOther acquired deformities (10 sources)Acquired deformity of spine; 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: [Other specified deforming dorsopathies, site unspecified]Onset: 977001-19-3024BrsgnucDtmlg acquired deformities (16 sources)Other secondary scoliosis, thoracolumbar region; 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: [Scoliosis associated with other conditions]Onset: 599601-80-4694Kyutgsj Other acquired deformities (2 sources)Other specified deforming dorsopathies, site unspecified; 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: [Other specified deforming dorsopathies, site unspecified]Onset: 41-80-3380JkmvmxtAofpc aftercare (1 source)Other emt intermediate (current) drug therapy; 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: [OTH TIMBER FELLER CURRENT DRUG THERAPY]Onset: 20-79-4467WtouoznfDiysy aftercare (1 source)Surgical follow-up; 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: [Encounter for follow-up examination after completed treatment for conditions other than malignant neoplasm] 99-02-9833GytrmudtHcoej bone disease and musculoskeletal deformities (7 sources)Other specified disorders of bone, other site; 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: [Iliac crest bone pain]EpisodicOther bone disease and musculoskeletal deformities (9 sources)Bone pain; 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: [Other specified disorders of bone, other site]Onset: 612606-70-4782VmiegudcUejbo connective tissue disease (2 sources)History of lumbar fusion; 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: [Arthrodesis status] 55-52-7979GbmocsqnUddjn connective tissue disease (2 sources)Arthrodesis status; 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: [Arthrodesis status]Onset: 67-27-8186LodqebixNffos connective tissue disease (1 source)Pain in buttock; 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: [Myalgia, other site]94-53-3500Oveqfnjr Other gastrointestinal disorders (1 source)Drug-induced constipation; 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: [Drug induced constipation] 51-79-9559IxjvgaguMpxqo inflammatory condition of skin (4 sources)Other psoriatic arthropathy; 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: [OTHER PSORIATIC ARTHROPATHY]Onset: 05-46-3094GjngvpaPonug inflammatory condition of skin (20 sources)Psoriatic arthritis; 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: [Arthropathic psoriasis, unspecified]Onset: 272510-22-6923HyhtdkxVxvgr inflammatory condition of skin (20 sources)Flexural psoriasis; 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]Onset: 04-16-2023 96-68-7255ZzsutdgDidfu inflammatory condition of skin (8 sources)Psoriasis; 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: [Psoriasis, unspecified]Onset: 04-30-2023 06-17-8665FihsqzzSkvqg inflammatory condition of skin (2 sources)Arthropathic psoriasis, unspecified; 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: [Arthropathic psoriasis, unspecified (Multi)]Onset: 66-40-5059VchvymaEoriy nervous system disorders (16 sources)Chronic pain; 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: [Other chronic pain]Onset: 04-30-2023 56-38-8217UyselsrVxwjy nervous system disorders (2 sources)Other chronic painChronicOther nervous system disorders (1 source)Other chronic pain; 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: [Other chronic pain]Onset: 62-23-8620HyejxdzLpjzp nervous system disorders (1 source)Postoperative pain ; 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: [Other acute postprocedural pain] 74-86-1540MnvegmnfWeppe non-traumatic joint disorders (3 sources)Hip pain; 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: [Pain in right hip]Onset: 10-16-2022 76-14-1862SiorpzonYoadb nutritional; endocrine; and metabolic disorders (7 sources)Cholesterol level - finding; 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: [Lipoprotein deficiency] ChronicOther nutritional; endocrine; and metabolic disorders (8 sources)Lipoprotein deficiency disorder; Translations: [Lipoprotein deficiency]Onset: 401015-82-3325GonnzfhGjusp nutritional; endocrine; and metabolic disorders (14 sources)Body mass index 30+ - obesity; Translations: [Obesity, unspecified] Onset: 746546-88-4179BvzsfrtSrfvy nutritional; endocrine; and metabolic disorders (1 source)Obesity; Translations: [Obesity, unspecified]35-10-7071KbrzwkzEiwydbfd codes; unclassified (2 sources)Other specified postprocedural states; Translations: [Other specified postprocedural states]Onset: 38-88-7427WwwbulwyZxwvpiylrri; intervertebral disc disorders; other back problems (20 sources)Lumbosacral spondylosis; Translations: [Spondylosis without myelopathy or radiculopathy, lumbosacral region]Onset: 96-52-2771Lbwvsga Spondylosis; intervertebral disc disorders; other back problems (20 sources)Lumbar radiculopathy; Translations: [Radiculopathy, lumbar region] Onset: 91-63-4490IuddtnoaPsltyzpkqumy (1 source)Pain in right hip; Translations: [Pain in right hip]Onset: 10-16-2022 Unclassified (9 sources)Patient has spine surgeryOnset: 353158-21-7829 Past or Other Problems Problem ClassificationProblemDateDocumented DateEpisodic/ChronicCancer of prostate (8 sources)Malignant tumor of prostate; Translations: [Malignant neoplasm of prostate]Onset: 09-15-2021 Resolved: 666325-91-3895VbueyneNglts aftercare (20 sources)Long-term current use of drug therapy; Translations: [Other emt intermediate (current) drug therapy]Onset: 172124-79-8363OuecawxgRuxjl aftercare (2 sources)Encounter for follow-up examination after completed treatment for conditions other than malignant neoplasm; Translations: [Encounter for follow-up examination after completed treatment for conditionsother than malignant neoplasm]Onset: 84-76-0960QkgrfzdmNkqcj connective tissue disease (15 sources)Muscle pain; Translations: [Myalgia, other site]Onset: 04-30-2023 46-08-6715NihukzyiNnkiy connective tissue disease (8 sources)Pain in left lower limb; Translations: [Pain in left leg]Onset: 244652-62-1241XflcemrwKqbly gastrointestinal disorders (2 sources)Drug induced constipation; Translations: [Drug induced constipation] Onset: 61-94-0053PezusqltNrrtg nervous system disorders (2 sources)Other acute postprocedural pain; Translations: [Other acute postprocedural pain]Onset: 62-90-1812ZixbptpyFlknm non-traumatic joint disorders (20 sources)Pain in right hip joint; Translations: [Pain in right hip]Onset: 682019-02-2721ImustaxjUllxb screening for suspected conditions (not mental disorders or infectious disease) (15 sources)Encounter for screening for malignant neoplasm of prostate; Translations: [Patient encounter status]Onset: 102676-72-1843Qgdgcrvc Residual codes; unclassified (3 sources)Patient encounter status; Translations: [Encounter for procedure for purposes other than remedying health state, unspecified]Onset: 10-17-2023 40-66-9217TdpuikedKaicxmto codes; unclassified (10 sources)H/O Spinal surgery; Translations: [Other specified postprocedural states]Onset: 897385-68-5450UvejpcfwGznkkpks codes; unclassified (2 sources)Encounter for procedure for purposes other than remedying health state, unspecified; Translations: [Encounter for procedure for purposes other than remedying health state, unspecified]Onset: 28-56-6175PuurlsilNhxqryoxftht (2 sources)Onset: 411307-26-0826 Results Test NameValueInterpretationReference RangeFacilityALL CBC WITH AUTO DIFFon [id number] ABSOLUTE LCCR4NPPN HealthcareBasophils/100 WBC (Bld)0.6 %0.2 - 2.0 %[facility]OM[facility] HealthcareEosinophils/100 WBC (Bld)2.6 %0.9 - 7.0 %[facility] Erythrocyte distribution width (RBC) [Ratio]14.6 %11.0 - 15.0 %[facility] Hematocrit (Bld) [Volume fraction]44.2 %42.0 - 54.0 %[facility] SystemHemoglobin (Bld) [Mass/Vol]14.5 g/dL14.0 - 18.0 g/dLSaint Luke's Health SystemIMMATURE GRANULOCYTES ABS AUTO0.01NOMS HealthcareImmature granulocytes/100 WBC (Bld)0.2 %0.0 - 0.5 % [facility] SystemLYMPHOCYTES ABSOLUTE AUTO1.3N[facility] HealthcareLymphocytes/100 WBC (Bld)25.5 %20.5 - 60.0 %[facility] SystemMCH (RBC) [Entitic mass]28.8 pg25.9 - 34.0 pgNOCitizens Memorial HealthcareMCHC (RBC) [Mass/Vol]32.8 g/dL29.9 - 35.2 g/dLSaint Luke's Health SystemMCV (RBC) [Entitic vol]87.9 fL80.0 - 94.0 fLNOCitizens Memorial HealthcareMONOCYTES ABSOLUTE AUTO0.5NOWY HealthcareMonocytes/100 WBC (Bld)10.8 %1.7 - 12.0 %NOMBarnes-Jewish West County HospitalNEUTROPHILS ABSOLUTE NBXY7ZQKV HealthcareNeutrophils/100 WBC (Bld)60.3 %43.0 - 75.0 %[facility] SystemPlatelet mean volume (Bld) [Entitic vol]10.7 fL9.5 - 13.5 fLNOCitizens Memorial HealthcareTBH EO #0.1NOMS HealthcareTB [id number] [facility]TB RBC5.03NOMS [facility] AndersonTB IER2TBCG HealthcareCLINISYNCNOMS HealthcareMLR HEMOGLOBIN A1Con 89-09-6104Niuvpnm [Mass/Vol]137 mg/dLNOWY QcrbmxtodqJpZ5a (Bld) [Mass fraction]6.4 %High4.5 - 6.2 %[facility] HealthcareComment on above:ADA RECOMMENDED LIMIT 4.0 - 6.0 ADA THERAPEUTIC TARGET < 7.0 ACTION SUGGESTED > 7.0 Interpretation and review of laboratory resultsAbnormalNOWY HealthcareCLINISYNC NOM HealthcareALL CBC WITH AUTO DIFFon 57-23-2592NRVIXPGKJ ABSOLUTE TEOY3LHEA HealthcareBasophils/100 WBC (Bld)0.7 %0.2 - 2.0 %NOMS HealthcareEosinophils/100 WBC (Bld)2.3 %0.9 - 7.0 %[facility] HealthcareErythrocyte distribution width (RBC) [Ratio]14.9 %11.0 - 15.0 %NOM HealthcareHematocrit (Bld) [Volume fraction]42.2 %42.0 - 54.0 %[facility] SystemHemoglobin (Bld) [Mass/Vol]13.7 g/dLLow14.0 - 18.0 g/dLSaint Luke's Health SystemIMMATURE GRANULOCYTES ABS AUTO0.01NOCitizens Memorial HealthcareImmature granulocytes/100 WBC (Bld)0.2 %0.0 - 0.5 %[facility] HealthcareInterpretation and review of laboratory resultsAbnormalSaint Luke's Health SystemLYMPHOCYTES ABSOLUTE AUTO1.8 NOMBarnes-Jewish West County HospitalLymphocytes/100 WBC (Bld)30.4 %20.5 - 60.0 %[facility] HospitalH (RBC) [Entitic mass]28.7 pg25.9 - 34.0 pgCooper County Memorial HospitalHC (RBC) [Mass/Vol] 32.5 g/dL29.9 - 35.2 g/dLSaint Luke's Health SystemMCV (RBC) [Entitic vol]88.3 fL80.0 - 94.0 fLSaint Luke's Health SystemMONOCYTES ABSOLUTE AUTO0.5NOCitizens Memorial HealthcareMonocytes/100 WBC (Bld)8.2 %1.7 - 12.0 %NOM HealthcareNEUTROPHILS ABSOLUTE AUTO3.5NOCitizens Memorial Healthcare Neutrophils/100 WBC (Bld)58.2 %43.0 - 75.0 %[facility] SystemPlatelet mean volume (Bld) [Entitic vol]10.7 fL9.5 - 13.5 fLNOCitizens Memorial HealthcareTBH EO #0.1NCoxHealth [id number] Health System RBC4.78NOFreeman Health System JGV4QRFKCitizens Memorial Healthcare CLINISYNCSaint Luke's Health SystemXR SCOLIOSIS SERIES 2 TO 3 VIEWSon 78-79-9947Eywapj do both AP and lateral views. ( Total of 2 views ) Please have the patient standing without assistance of any kind and with knees in neutral position. The patient should stand relaxed, bend their elbows, and place their fists on the ipsilateral clavicles. Source Facility: [facility] Interpreted By: Austen Bass, STUDY: XR FULL SPINE 2 VIEW SCOLIOSIS; ; 05/27/2024 10:44 am INDICATION: Signs/Symptoms:Lumbar Stenosis for assesment of alignment. 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 ( Total of 2 views ) Please have the patient standing without assistance of any kind and with knees in neutral position. The patient should stand relaxed, bend their elbows, and place their fists on the ipsilateral clavicles. Source Facility: [facility] Interpreted By: Austen Bass, STUDY: XR FULL SPINE 2 VIEW SCOLIOSIS; ; 05/27/2024 10:44 am INDICATION: Signs/Symptoms:Lumbar Stenosis for assesment of alignment. 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 ( Total of 2 views ) Please have the patient standing without assistance of any kind and with knees in neutral position. The patient should stand relaxed, bend their elbows, and place their fists on the ipsilateral clavicles.XR SCOLIOSIS SERIES 2 TO 3 VIEWSon 79-48-6594Rvjuufvwn Study observation (narrative)[facility] CBC WITH AUTO DIFFon 23-76-5487NVVZPPOGH ABSOLUTE AUTO0.1NOMS HealthcareBasophils/100 WBC (Bld)0.7 %0.2 - 2.0 %NOMBarnes-Jewish West County HospitalEosinophils/100 WBC (Bld)1.7 %0.9 - 7.0 %[facility] SystemErythrocyte distribution width (RBC) [Ratio]15.8 %High11.0 - 15.0 %NOMBarnes-Jewish West County HospitalHematocrit (Bld) [Volume fraction] 40.9 %Low42.0 - 54.0 %[facility] SystemHemoglobin (Bld) [Mass/Vol]13.1 g/dLLow14.0 - 18.0 g/dLSaint Luke's Health SystemIMMATURE GRANULOCYTES ABS AUTO0.01NOMS [facility] Immature granulocytes/100 WBC (Bld)0.1 %0.0 - 0.5 %[facility] SystemInterpretation and review of laboratory resultsAbnormalNOCitizens Memorial HealthcareLYMPHOCYTES ABSOLUTE AUTO1.7NOMS [facility] AndersonLymphocytes/100 WBC (Bld)23.1 %20.5 - 60.0 %[facility] HospitalH (RBC) [Entitic mass]28.4 pg25.9 - 34.0 pgCooper County Memorial HospitalHC (RBC) [Mass/Vol]32 g/dL29.9 - 35.2 g/dLCooper County Memorial HospitalV (RBC) [Entitic vol]88.7 fL 80.0 - 94.0 fLSaint Luke's Health SystemMONOCYTES ABSOLUTE AUTO0.6NOMS [facility] Monocytes/100 WBC (Bld)8.8 %1.7 - 12.0 %NOMBarnes-Jewish West County HospitalNEUTROPHILS ABSOLUTE AUTO 4.7NOMS [facility] AndersonNeutrophils/100 WBC (Bld)65.6 %43.0 - 75.0 %[facility] Platelet mean volume (Bld) [Entitic vol]10.5 fL9.5 - 13.5 fLNOCitizens Memorial HealthcareTB EO #0.1NOMS [facility] AndersonTB [id number] [facility] RBC4.61LowNOMS [facility] WBC7.2NOMS HealthcareCLINISYNCNOU MEDICAL [facility] HealthcareALL SED RATEon 69-25-9403RUT SED NOVZ21NZCOVYXH [facility] - AndersonCLINISYNEast Cooper Medical CenterCCF CMP (CMP) (FOR REMOTE [facility] USE)on 99-99-2002Sqjvxgy [Mass/Vol]3.8 g/dL3.4 - 5.0 g/dLNOWY HealthcareALBUMIN GLOBULIN [id number] HealthcareALP [Catalytic activity/Vol]99 U/L46 - 116 U/LNOMS HealthcareALT [Catalytic activity/Vol]33 U/L16 - 63 U/LNOMS HealthcareAnion gap [Moles/Vol]12.2 mmol/LNOMS HealthcareAST [Catalytic activity/Vol]23 U/L15 - 37 U/LNOMS HealthcareBilirubin [Mass/Vol]0.3 mg/dL0.2 - 1.0 mg/dLNOWY Healthcare Calcium [Mass/Vol]9.1 mg/dL8.5 - 10.1 mg/dLNOWY HealthcareChloride [Moles/Vol] 106 mmol/L98 - 107 mmol/LNOMS HealthcareCO2 [Moles/Vol]26.4 mmol/L21.0 - 32.0 mmol/LNOMS HealthcareCreatinine [Mass/Vol]0.92 mg/dL0.70 - 1.30 mg/dLNOWY HealthcareGFR/1.73 sq M.predicted CKD-EPI (S/P/Bld) [Vol rate/Area]>60>=60 mL/min/1.73m 2NOMS HealthcareGlobulin (S) [Mass/Vol]3.7 g/dLNOWY Healthcare Glucose [Mass/Vol]85 mg/dL74 - 106 mg/dLNOWY HealthcarePotassium [Moles/Vol]3.6 mmol/L3.5 - 5.1 mmol/LNOMS HealthcareProtein [Mass/Vol]7.5 g/dL6.4 - 8.2 g/dL NOM HealthcareSodium [Moles/Vol]141 mmol/L136 - 145 mmol/LNOMS HealthcareTBH EGFR-NON AF [place]>60>=60 mL/min/1.73m 2NOMS HealthcareUrea nitrogen [Mass/Vol]11 mg/dL7.0 - 18.0 mg/dLNOWY HealthcareUrea nitrogen/Creatinine [Mass ratio]12 mg/mgNOWY HealthcareCLINISYNCNOU MEDICAL [facility]ENTER [facility] [place] HealthcareALL CBC WITH AUTO DIFFon [id number] ABSOLUTE AUTO0.1NOMS HealthcareBasophils/100 WBC (Bld)0.7 % 0.2 - 2.0 %NOMS HealthcareEosinophils/100 WBC (Bld)2.8 %0.9 - 7.0 %[facility] SystemErythrocyte distribution width (RBC) [Ratio]16.7 %High11.0 - 15.0 % [facility] SystemHematocrit (Bld) [Volume fraction]39.3 %Low42.0 - 54.0 %[facility] SystemHemoglobin (Bld) [Mass/Vol]12.7 g/dLLow14.0 - 18.0 g/dLSaint Luke's Health System IMMATURE GRANULOCYTES ABS AUTO0.01NOCitizens Memorial HealthcareImmature granulocytes/100 WBC (Bld)0.1 %0.0 - 0.5 %[facility] SystemInterpretation and review of laboratory resultsAbnormalSaint Luke's Health SystemLYMPHOCYTES ABSOLUTE AUTO2.1NOMS [facility] Lymphocytes/100 WBC (Bld)31.3 %20.5 - 60.0 %[facility] HospitalH (RBC) [Entitic mass]27.3 pg25.9 - 34.0 pgCooper County Memorial HospitalHC (RBC) [Mass/Vol]32.3 g/dL29.9 - 35.2 g/dLCooper County Memorial HospitalV (RBC) [Entitic vol]84.3 fL80.0 - 94.0 fLSaint Luke's Health SystemMONOCYTES ABSOLUTE AUTO0.8NOMS [facility] AndersonMonocytes/100 WBC (Bld)11.7 % 1.7 - 12.0 %[facility] SystemNEUTROPHILS ABSOLUTE AUTO3.6NOMS [facility] Neutrophils/100 WBC (Bld)53.4 %43.0 - 75.0 %[facility] SystemPlatelet mean volume (Bld) [Entitic vol]10.2 fL9.5 - 13.5 fLSaint Luke's Health SystemTB EO #0.2NOMS [facility] TBH QMC015WCOGFreeman Health System RBC4.66LowNOMS [facility] WBC6.7NOMS [facility] CLINISYNCSaint Luke's Health SystemX-ray scoliosis complete including supine and erecton 04-93-3681Gqwmny do both AP and lateral views. ( [...] assesment of alignment. COMPARISON: 07/10/2023 ACCESSION NUMBER(S): [id number] ORDERING CLINICIAN: ISHA VALENTINO FINDINGS: There is [...] is intact without perihardware fractures or lucencies. Gjjc-pg-efmrfjha spondylosis noted at T12-L1 and L1-2. Chronic appearing compression deformity is noted of T12 vertebral body with mild anterior height loss. There is positive sagittal balance. No significant coronal balance. IMPRESSION: Postsurgical changes as described above without hardware complication. Mild S shaped thoracolumbar scoliosis. Positive sagittal balance MACRO: None. Signed by: Carmenza Garcia 08/16/2023 5:16 PM Dictation workstation: [id number], Radiologist, - 08/16/2023 Please do both AP [...] assesment of alignment. COMPARISON: 07/10/2023 ACCESSION NUMBER(S): [id number] ORDERING CLINICIAN: ISHA VALENTINO FINDINGS: There is [...] is intact without perihardware fractures or lucencies. Vzbg-na-qhxywapo spondylosis noted at T12-L1 and L1-2. Chronic appearing compression deformity is noted of T12 vertebral body with mild anterior height loss. There is positive sagittal balance. No significant coronal balance. IMPRESSION: Postsurgical changes as described above without hardware complication. Mild S shaped thoracolumbar scoliosis. Positive sagittal balance MACRO: None. Signed by: Carmenza Garcia 08/16/2023 5:16 PM Dictation workstation: [id number] [facility] SystemX-ray scoliosis complete including supine and erectOrdered By: Radiologist Radiology on 36-95-8042VZWY [employer] Work Phone: X-ray scoliosis complete including supine and erecton 25-96-0974Dnmjixwui Study observation (narrative)[facility] SystemXR SCOLIOSIS 2 VIEW (NON EOS)on 85-06-2316WL SCOLIOSIS 2 VIEW (NON EOS)Interpreted By: Carmenza Garcia, STUDY: XR SCOLIOSIS 2 VIEW (NON EOS) INDICATION: Signs/Symptoms:Lumbar Stenosis for assesment of alignment. COMPARISON: 07/10/2023 ACCESSION NUMBER(S): [id number] ORDERING CLINICIAN: ISHA VALENTINO FINDINGS: There is [...] is intact without perihardware fractures or lucencies. Pujh-oo-xbdhfkrp spondylosis noted at T12-L1 and L1-2. Chronic appearing compression deformity is noted of T12 vertebral body with mild anterior height loss. There is positive sagittal balance. No significant coronal balance. IMPRESSION: Postsurgical changes as described above without hardware complication. Mild S shaped thoracolumbar scoliosis. Positive sagittal balance MACRO: None. Signed by: Carmenza Garcia 08/16/2023 5:16 PM Dictation workstation: [id number] County HospitalComment on above:Order Comment: Please do both AP and lateral views. ( Total of 2 views ) Please have the patient standing without assistance of any kind and with knees in neutral position. The patient should stand relaxed, bend their elbows, and place their fists on the ipsilateral clavicles.X-ray scoliosis complete including supine and erecton 34-46-7129Pmskxx do both AP and lateral views. ( [...] INDICATION: Signs/Symptoms:post op. COMPARISON: 04/24/2023 ACCESSION NUMBER(S): [id number] ORDERING CLINICIAN: ISHA VALENTINO FINDINGS: Two views [...] Austen Bass 07/11/2023 3:27 PM Dictation workstation: [id number], Radiologist, MD - 07/11/2023 Please do both [...] INDICATION: Signs/Symptoms:post op. COMPARISON: 04/24/2023 ACCESSION NUMBER(S): [id number] ORDERING CLINICIAN: ISHA VALENTINO FINDINGS: Two views [...] Austen Bass 07/11/2023 3:27 PM Dictation workstation: [id number] [facility] HealthcareX-ray scoliosis complete including supine and erectOrdered By: Radiologist Radiology on 35-36-6980GQUM [employer] Work Phone: X-ray scoliosis complete including supine and erecton 84-62-4369Nytoghfnx Study observation (narrative)NOMS HealthcareXR SCOLIOSIS 2 VIEW (NON EOS)on 64-26-6384KH SCOLIOSIS 2 VIEW (NON EOS)Interpreted By: Austen Bass, STUDY: XR SCOLIOSIS 2 VIEW (NON EOS); ; 07/10/2023 11:36 am INDICATION: Signs/Symptoms:post op. COMPARISON: 04/24/2023 ACCESSION NUMBER(S): [id number] ORDERING CLINICIAN: ISHA VALENTINO FINDINGS: Two views [...] Austen Bass 07/11/2023 3:27 PM Dictation workstation: [id number] County HospitalComment on above:Order Comment: Please do both AP and lateral views. ( Total of 2 views ) Please have the patient standing without assistance of any kind and with knees in neutral position. The patient should stand relaxed, bend their elbows, and place their fists on the ipsilateral clavicles.CBC panel Auto (Bld)on 44-17-9798Bfuoiansrlk distribution width (RBC) [Ratio]13.5 %11.5 - 14.5 %[facility] HospitalHematocrit (Bld) [Volume fraction]33.1 %Low 41.0 - 52.0 %[facility] HospitalHemoglobin (Bld) [Mass/Vol]11.0 g/dLLow13.5 - 17.5 g/dLUnTogus VA Medical CenterInterpretation and review of laboratory resultsAbnormalURegency Hospital Cleveland EastMCH (RBC) [Entitic mass]29.3 pg26.0 - 34.0 pgElyria Memorial HospitalMCHC (RBC) [Mass/Vol]33.2 g/dL32.0 - 36.0 g/dLElyria Memorial HospitalMCV (RBC) [Entitic vol]88 fL80 - 100 fLUniCleveland Clinic Union HospitalNucleated RBC/100 WBC (Bld) [Ratio]0.0 %[facility] Memorial HospitalPlatelets (Bld) [#/Vol] 323 10*3/[facility]red Hospital LimaRBC (Bld) [#/Vol]3.75 10*6/[facility] HospitalWBC (Bld) [#/Vol]6.3 10*3/[facility]red Hospital LimaUnTogus VA Medical CenterErythrocyte distribution width (RBC) [Ratio]13.5 %Rtsfvo62.5-14.5[facility] Medical CenterComment on above:Performed By: #### 09017-7 #### PACHECO Ferraro ([id number]) [facility] ([facility]) [id number] [place] [address] 00302Pqdxdwblmw (Bld) [Volume fraction]33.1 %Low41.0-52.0 [facility] Medical CenterComment on above:Performed By: #### 34035-3 #### PACHECO Ferraro ([id number]) [facility] ([facility]) [address] [place], [place] [address]Dwolgcshgc (Bld) [Mass/Vol]11.0 g/dLLow13.5-17.5UnBarney Children's Medical CenterComment on above:Performed By: #### 37345-8 #### PACHECO Ferraro ([id number]) [facility] ([facility]) [id number] [place] [address] 96401HDZ (RBC) [Entitic mass]29.3 pcHhgkrr20.0-34.0[facility] Medical CenterComment on above:Performed By: #### 89935-8 #### PACHECO Ferraro ([id number]) [facility] ([facility]) [address] [place], [place] [address]PHDH (RBC) [Mass/Vol]33.2 g/nALlnyuw77.0-36.0UnBarney Children's Medical CenterComment on above:Performed By: #### 84767-2 #### PACHECO Ferraro ([id number]) [facility] ([facility]) [address] [place] [address] 43335EAC (RBC) [Entitic vol]88 lWMtsaki37-157BafezyoopvBarney Children's Medical CenterComment on above:Performed By: #### 08705-3 #### PACHECO Ferraro ([id number]) [facility] ([facility]) [address] [place] [address] 33025Gwmluuwjx RBC/100 WBC (Bld) [Ratio]0.0 /100 WBCsNormal0.0-0.0 [facility] Medical CenterComment on above:Performed By: #### 54902-8 #### PACHECO Ferraro ([id number]) [facility] ([facility]) [address] [place] [address] 62742Qglomauqb (Bld) [#/Vol]323 x10*3/xLQfulvt578-729DhzvffahuuBarney Children's Medical CenterComment on above:Performed By: #### 45156-1 #### PACHECO Ferraro ([id number]) [facility] ([facility]) [address] [place] [address] 94672UZD (Bld) [#/Vol]3.75 x10*6/uLLow4.50-5.90UnBarney Children's Medical CenterComment on above:Performed By: #### 40159-5 #### PACHECO Ferraro ([id number]) [facility] ([facility]) [address] [place] [address] 18213LHI (Bld) [#/Vol]6.3 x10*3/uLNormal4.4-11.3UnBarney Children's Medical CenterComment on above:Performed By: #### 70674-2 #### PACHECO Ferraro (45077) [facility] ([facility]) [address] [place], [place] [address]Ffwrxzj Test strip manual (Bld) [Mass/Vol]on 06-06-2023 Glucose [Mass/Vol]207 mg/aCIaxh11 - 99 mg/dLUnTogus VA Medical Center Interpretation and review of laboratory resultsAbnoKettering HealthUnTogus VA Medical CenterGlucose [Mass/Vol]207 mg/hKJmte42-47 [facility] CenterComment on above:Performed By: #### 19510-0 #### PACHECO Ferraro ([id number]) [facility] ([facility]) [address] [place], [place] [address]Vdtifci [Mass/Vol]159 mg/yNVbtf90 - 99 mg/dLUnTogus VA Medical CenterInterpretation and review of laboratory resultsAbPremier HealthUnTogus VA Medical CenterGlucose [Mass/Vol]159 mg/aICvvb98-44RvbwmeokkuBarney Children's Medical CenterComment on above:Performed By: #### 76280-2 #### PACHECO Ferraro ([id number]) [facility] ([facility]) [address] [place] [address]Yfzvk function 2000 panelon 49-34-1564Nkbopca BCP dye [Mass/Vol]3.6 g/dL3.4 - 5.0 g/dLUnTogus VA Medical CenterAnion gap [Moles/Vol]13 mmol/L10 - 20 mmol/[facility] HospitalCalcium [Mass/Vol]9.3 mg/dL8.6 - 10.6 mg/dLUnTogus VA Medical CenterChloride [Moles/Vol]100 mmol/L98 - 107 mmol/[facility] HospitalCO2 [Moles/Vol]26 mmol/L21 - 32 mmol/[facility] HospitalCreatinine [Mass/Vol]0.60 mg/dL0.50 - 1.30 mg/dLUnTogus VA Medical CentereGFR- PINBarnesville HospitalComment on above:Calculations of estimated GFR are performed using the 2020 CKD-EPI Study Refit equation without therace variable for the IDMS-Traceable creatinine methods. https://jasn.asnjournals.org/content//ASN.6575981915 Glucose [Mass/Vol]236 mg/cVNjms46 - 99 mg/dLUnTogus VA Medical Center Interpretation and review of laboratory resultsAbnormalUniCleveland Clinic Union HospitalPhosphate [Mass/Vol]2.4 mg/dLLow2.5 - 4.9 mg/dLUnTogus VA Medical CenterComment on above:The performance characteristics of phosphorus testing in heparinized plasma have been validated by the individual laboratory site where testing is performed. Testing on heparinized plasma is not approved by the FDA; however, such approval is not necessary.Potassium [Moles/Vol]3.3 mmol/LLow 3.5 - 5.3 mmol/[facility] HospitalSodium [Moles/Vol]136 mmol/L136 - 145 mmol/[facility] HospitalUrea nitrogen [Mass/Vol]10 mg/dL6 - 23 mg/dLUnTogus VA Medical CenterUnTogus VA Medical Center Albumin BCP dye [Mass/Vol]3.6 g/dLNormal3.4-5.0UnBarney Children's Medical CenterComment on above:Performed By: #### 12294-9 #### PACHECO Ferraro ([id number]) [facility] ([facility]) [address] [place] [address] 70245Sfmyw gap [Moles/Vol]13 mmol/REdadmg35-17TeovypgxjhBarney Children's Medical CenterComment on above:Performed By: #### 28495-9 #### PACHECO Ferraro ([id number]) [facility] ([facility]) [address] [place] [address] 8[address]Obnwvrs [Mass/Vol]9.3 mg/dLNormal8.6-10.6UnBarney Children's Medical CenterComment on above:Performed By: #### 69431-0 #### PACHECO Ferraro ([id number]) [facility] ([facility]) [address] [place] [address] 99165Ccbtvwtr [Moles/Vol]100 mmol/MGyhejo10-612EbqjnwebjpBarney Children's Medical CenterComment on above:Performed By: #### 64068-4 #### PACHECO Ferraro ([id number]) [facility] ([facility]) [address] [place], [place] [address]HC7 [Moles/Vol]26 mmol/FTpdpzk90-01DmnrkwibhrBarney Children's Medical CenterComment on above:Performed By: #### 28407-8 #### PACHECO Ferraro (50961) [facility] ([facility]) [address] [place] [address] 25729Owxeswdelm [Mass/Vol]0.60 mg/dLNormal0.50-1.30UnBarney Children's Medical CenterComment on above:Performed By: #### 52513-0 #### PACHECO Ferraro ([id number]) [facility] ([facility]) [address] [place] [address] 57338RMI/1.73 sq M.predicted MDRD (S/P/Bld) [Vol rate/Area] mL/min/{1.73_m2}Normal>60UnBarney Children's Medical CenterComment on above:Result Comment: Calculations of estimated GFR are performed using the 2020 CKD-EPI Study Refit equation without the race variable for the IDMS-Traceable creatinine methods. https://jasn.asnjournals.org/content/early//ASN.2076403403Gpnuivsjg By: #### 61196-8 #### PACHECO Ferraro ([id number]) [facility] ([facility]) [address] [place], [place] [address]Wbtkowi [Mass/Vol]236 mg/zKLrwd94-80PknaungxvbBarney Children's Medical CenterComment on above:Performed By: #### 87140-8 #### PACHECO Ferraro ([id number]) [facility] ([facility]) [address] [place] [address] 64629Tnnlnmmhz [Mass/Vol]2.4 mg/dLLow2.5-4.9UnBarney Children's Medical CenterComment on above:Result Comment: The performance characteristics of phosphorus testing in heparinized plasma have been validated by the individual laboratory site where testing is performed. Testing on heparinizedplasma is not approved by the FDA; however, such approval is not necessary.Performed By: #### 39695-7 #### PACHECO Ferraro ([id number]) [facility] ([facility]) [address] [place] [address] 25022Gcmyvglgq [Moles/Vol]3.3 mmol/LLow3.5-5.3[facility] Medical CenterComment on above:Performed By: #### 34036-4 #### PACHECO Ferraro ([id number]) [facility] ([facility]) [address] [place] [address] 04012Bxqmbc [Moles/Vol]136 mmol/EGppggn212-371WthjdfdnjuBarney Children's Medical CenterComment on above:Performed By: #### 79746-4 #### PACHECO Ferraro ([id number]) [facility] ([facility]) [address] [place] [address] 12915Gyyo nitrogen [Mass/Vol]10 mg/dLNormal6-23UnBarney Children's Medical CenterComment on above:Performed By: #### 29130-1 #### PACHECO Ferraro (50610) [facility] ([facility]) [address] [place] [address] 01870Znwcgvt Test strip manual (Bld) [Mass/Vol]on 06-05-2023 Glucose [Mass/Vol]226 mg/lFWqyc71 - 99 mg/dLUnTogus VA Medical Center Interpretation and review of laboratory resultsAbnoSelect Medical Specialty Hospital - Cleveland-FairhillGlucose [Mass/Vol]226 mg/kBNzpe69-92 [facility] Medical CenterComment on above:Performed By: #### 76327-1 #### PACHECO Ferraro ([id number]) [facility] ([facility]) [id number] [place] [id number] [Mass/Vol]160 mg/gGSwfg60 - 99 mg/dLUnTogus VA Medical CenterInterpretation and review of laboratory resultsAbPremier HealthUnTogus VA Medical CenterGlucose [Mass/Vol]160 mg/mAJycm63-06IamnvrlsuaBarney Children's Medical CenterComment on above:Performed By: #### 80749-8 #### PACHECO Ferraro ([id number]) [facility] ([facility]) [address] [place], [place] [address]Nloprdi [Mass/Vol]192 mg/zLBpin63 - 99 mg/dLUnTogus VA Medical CenterInterpretation and review of laboratory resultsAbPremier HealthUnTogus VA Medical CenterGlucose [Mass/Vol]192 mg/hQGgem61-98StbzvmlkbsBarney Children's Medical CenterComment on above:Performed By: #### 57093-3 #### PACHECO Ferraro ([id number]) [facility] ([facility]) [address] [place], [place] [address]Xooarty [Mass/Vol]163 mg/tVTplj63 - 99 mg/dLUnTogus VA Medical CenterInterpretation and review of laboratory resultsAbPremier HealthUnTogus VA Medical CenterGlucose [Mass/Vol]163 mg/hDHjbp72-52ApzolvpaqwBarney Children's Medical CenterComment on above:Performed By: #### 03347-5 #### PACHECO Ferraro (20140) [facility] ([facility]) [address] [place], [place] [address]Qiuhk metabolic 2000 panelon 54-80-2743Aiyqs gap [Moles/Vol] 12 mmol/L10 - 20 mmol/[facility] HospitalCalcium [Mass/Vol]8.4 mg/dLLow8.6 - 10.6 mg/dLUnTogus VA Medical CenterChloride [Moles/Vol]102 mmol/L98 - 107 mmol/[facility] Memorial HospitalCO2 [Moles/Vol]28 mmol/L 21 - 32 mmol/[facility] HospitalCreatinine [Mass/Vol]0.56 mg/dL 0.50 - 1.30 mg/dLUnTogus VA Medical CentereGFR- PINFUniCleveland Clinic Union HospitalComment on above:Calculations of estimated GFR are performed using the 2020 CKD-EPI Study Refit equation without therace variable for the IDMS- Traceable creatinine methods. https://jasn.asnjournals.org/content//ASN.5934408190 Glucose [Mass/Vol]235 mg/hAQoas27 - 99 mg/dLUnTogus VA Medical Center Interpretation and review of laboratory resultsAbnormalUniCleveland Clinic Union HospitalPotassium [Moles/Vol]3.4 mmol/LLow3.5 - 5.3 mmol/[facility] HospitalSodium [Moles/Vol]139 mmol/L136 - 145 mmol/[facility] Memorial HospitalUrea nitrogen [Mass/Vol]14 mg/dL6 - 23 mg/dLElyria Memorial HospitalAnion gap [Moles/Vol]12 mmol/EMypjvu84-47DqivcmaegrBarney Children's Medical CenterComment on above:Performed By: #### 95277-6 #### PACHECO Ferraro (34109) [facility] ([facility]) [address] [place], [place] [address]Itchbrv [Mass/Vol]8.4 mg/dLLow8.6-10.6UnBarney Children's Medical CenterComment on above:Performed By: #### 24777-3 #### PACHECO Ferraro (14351) [facility] ([facility]) [address] [place], [place] [address]Qgnapelv [Moles/Vol]102 mmol/ISlvxev25-284YidjsdyetnBarney Children's Medical CenterComment on above:Performed By: #### 32870-8 #### PACHECO Ferraro (55785) [facility] ([facility]) [address] [place], [place] [address]EV9 [Moles/Vol]28 mmol/XPhaqzn12-35XnwafooycoMetrohealth Main Campus Medical CenterComment on above:Performed By: #### 78576-2 #### PACHECO Ferraro (83072) [facility] ([facility]) [address] [place], [place] [address]Yehpenibuy [Mass/Vol]0.56 mg/dLNormal0.50-1.30UnBarney Children's Medical CenterComment on above:Performed By: #### 94401-6 #### PACHECO Ferraro (08497) [facility] ([facility]) [address] [place], [place] [address]RFH/1.73 sq M.predicted MDRD (S/P/Bld) [Vol rate/Area] mL/min/{1.73_m2}Normal>60UnBarney Children's Medical CenterComment on above:Result Comment: Calculations of estimated GFR are performed using the 2020 CKD-EPI Study Refit equation without the race variable for the IDMS-Traceable creatinine methods. https://jasn.asnjournals.org/content/early/ASN.2623994955Wykofmnaw By: #### 75907-2 #### PACHECO Ferraro (72511) [facility] ([facility]) [address] [place], [place] [address]Oifubuf [Mass/Vol]235 mg/tWSzqa84-29ZryyfhvvsgBarney Children's Medical CenterComment on above:Performed By: #### 01842-8 #### PACHECO Ferraro (02330) [facility] ([facility]) [address] [place], [place] [address]Zkbnkilpy [Moles/Vol]3.4 mmol/LLow3.5-5.3[facility] Medical CenterComment on above:Performed By: #### 80426-9 #### PACHECO Ferraro (63840) [facility] ([facility]) [address] [place], [place] [address]Mgtlvp [Moles/Vol]139 mmol/TEnyxnl919-489UkcquupuhsBarney Children's Medical CenterComment on above:Performed By: #### 65267-1 #### PACHECO Ferraro (85095) [facility] ([facility]) [address] [place], [place] [address]Kdri nitrogen [Mass/Vol]14 mg/dLNormal6-23[facility] Medical CenterComment on above:Performed By: #### 91281-6 #### PACHECO Ferraro (18103) [facility] ([facility]) [address] [place], [place] [address]TOP panel Auto (Bld)on 56-52-3166Sxwztjelreg distribution width (RBC) [Ratio]13.6 %11.5 - 14.5 %[facility] Hematocrit (Bld) [Volume fraction]30.9 %Low41.0 - 52.0 %[facility] HospitalHemoglobin (Bld) [Mass/Vol]9.7 g/dLLow13.5 - 17.5 g/dLUnTogus VA Medical CenterInterpretation and review of laboratory resultsAbnormal [facility] (RBC) [Entitic mass]28.1 pg26.0 - 34.0 pg [facility] HospitalHC (RBC) [Mass/Vol]31.4 g/dLLow32.0 - 36.0 g/dLElyria Memorial HospitalMCV (RBC) [Entitic vol]90 fL80 - 100 fL [facility] HospitalNucleated RBC/100 WBC (Bld) [Ratio]0.0 % [facility] HospitalPlatelets (Bld) [#/Vol]209 10*3/[facility]red Hospital LimaRBC (Bld) [#/Vol]3.45 10*6/Parkview HealthWBC (Bld) [#/Vol]8.3 10*3/[facility] Erythrocyte distribution width (RBC) [Ratio]13.6 %Rzthqu36.5-14.5UnBarney Children's Medical CenterComment on above:Performed By: #### 79278-4 #### PACHECO Ferraro (73673) [facility] ([facility]) [address] [place], [place] [address]Dwpiyodbal (Bld) [Volume fraction]30.9 %Low41.0-52.0 [facility] Medical CenterComment on above:Performed By: #### 56584-1 #### PACHECO Ferraro (12373) [facility] ([facility]) [address] [place], [place] [address]Lqmapcbejn (Bld) [Mass/Vol]9.7 g/dLLow13.5-17.5UnBarney Children's Medical CenterComment on above:Performed By: #### 19107-4 #### PACHECO Ferraro (11548) [facility] ([facility]) [address] [place], [place] [address]VNY (RBC) [Entitic mass]28.1 iqWomthb34.0-34.0UnBarney Children's Medical CenterComment on above:Performed By: #### 84512-8 #### PACHECO Ferraor (03498) [facility] ([facility]) [address] [place], [place] [address]RIPT (RBC) [Mass/Vol]31.4 g/dLLow32.0-36.0UnBarney Children's Medical CenterComment on above:Performed By: #### 82372-9 #### PACHECO Ferraro (44087) [facility] ([facility]) [address] [place], [place] [address]TOL (RBC) [Entitic vol]90 qLAdjehs45-996UzpqtmslmuBarney Children's Medical CenterComment on above:Performed By: #### 59548-9 #### PACHECO Ferraro (73889) [facility] ([facility]) [address] [place], [place] [address]Tgcdhlnoh RBC/100 WBC (Bld) [Ratio]0.0 /100 WBCsNormal0.0-0.0 [facility] Medical CenterComment on above:Performed By: #### 95106-5 #### PACHECO Ferraro (36578) [facility] ([facility]) [address] [place], [place] [address]Vvunwjzfc (Bld) [#/Vol]209 x10*3/dDAxftts331-181AukecdffatBarney Children's Medical CenterComment on above:Performed By: #### 99561-5 #### PACHECO Ferraro (97450) [facility] ([facility]) [address] [place], [place] [address]GHY (Bld) [#/Vol]3.45 x10*6/uLLow4.50-5.90UnBarney Children's Medical CenterComment on above:Performed By: #### 07682-3 #### PACHECO Ferraro (05193) [facility] ([facility]) [address] [place], [place] [address]BZW (Bld) [#/Vol]8.3 x10*3/uLNormal4.4-11.3UnBarney Children's Medical CenterComment on above:Performed By: #### 88724-9 #### PACHECO Ferraro (73602) [facility] ([facility]) [address] [place], [place] [address]Idiobox Test strip manual (Bld) [Mass/Vol]on 06-04-2023 Glucose [Mass/Vol]184 mg/kXEvwm25 - 99 mg/dLUnTogus VA Medical Center Interpretation and review of laboratory resultsAbParkview Health Montpelier HospitalGlucose [Mass/Vol]184 mg/fBMcna01-75QrklygjvwrBarney Children's Medical CenterComment on above:Performed By: #### 03729-7 #### PACHECO Ferraro (39447) [facility] ([facility]) [address] [place], [place] [address]Tctqmoe [Mass/Vol]243 mg/gAKujm38 - 99 mg/dLUnTogus VA Medical CenterInterpretation and review of laboratory resultsAbPremier HealthGlucose [Mass/Vol]243 mg/mDPmwp90-99JlhewffybwBarney Children's Medical CenterComment on above:Performed By: #### 60381-2 #### PACHECO Ferraro (47842) [facility] ([facility]) [address] [place], [place] [address]Rqqzxnt [Mass/Vol]233 mg/oPErmu05 - 99 mg/dLUnTogus VA Medical CenterInterpretation and review of laboratory resultsAbPremier HealthGlucose [Mass/Vol]233 mg/dFMmfk59-49ZbjzwxbbuoBarney Children's Medical CenterComment on above:Performed By: #### 44591-3 #### PACHECO Ferraro (03281) [facility] ([facility]) [address] [place], [place] [address]Lsbqvkn [Mass/Vol]139 mg/vNAzsj39 - 99 mg/dLElyria Memorial HospitalInterpretation and review of laboratory resultsAbnoSelect Medical OhioHealth Rehabilitation Hospital - DublinGlucose [Mass/Vol]139 mg/aJVgvw25-39WycuwwroqvBarney Children's Medical CenterComment on above:Performed By: #### 89461-2 #### PACHECO Ferraro (82796) [facility] ([facility]) [address] [place], [place] [address]Uz Panel Informationon 58-19-5724Yzrkffqc StatusREElyria Memorial HospitalPRODUCT BLOOD NZPL5592IrristwwtgElyria Memorial Hospital PRODUCT [id number] Memorial HospitalUn ABOOUnTogus VA Medical CenterUn RHNegativeElyria Memorial HospitalUN HZFSQT744PbpqqclvufElyria Memorial HospitalX INTEPCOMPUnTogus VA Medical CenterUnTogus VA Medical CenterPrepare RBC: 2 Unitson 76-33-8991Tjnvt Expiration DateMarch 2023 23:59 EDKettering Health SpringfieldBlood Expiration DateApril 2023 23:59 [facility] [id number]-VGfdmufdwooLicking Memorial HospitalUnit [id number] [facility] HospitalBawestern state hospital metabolic 2000 panelon 16-47-8144Eidqi gap [Moles/Vol]10 mmol/L10 - 20 mmol/[facility] HospitalCalcium [Mass/Vol]8.6 mg/dL8.6 - 10.6 mg/dLElyria Memorial HospitalChloride [Moles/Vol]105 mmol/L98 - 107 mmol/[facility] HospitalCO2 [Moles/Vol]27 mmol/L21 - 32 mmol/[facility] HospitalCreatinine [Mass/Vol]0.58 mg/dL0.50 - 1.30 mg/dLUnTogus VA Medical CentereG- [facility] Health Miami Valley HospitalComment on above:Calculations of estimated GFR are performed using the 2020 CKD-EPI Study Refit equation without therace variable for the IDMS-Traceable creatinine methods. https://jasn.asnjournals.org/content//ASN.0043426716 Glucose [Mass/Vol]181 mg/rYJpxg63 - 99 mg/dLUnTogus VA Medical Center Interpretation and review of laboratory resultsAbnormalUniCleveland Clinic Union HospitalPotassium [Moles/Vol]3.3 mmol/LLow3.5 - 5.3 mmol/[facility] HospitalSodium [Moles/Vol]139 mmol/L136 - 145 mmol/[facility] HospitalUrea nitrogen [Mass/Vol]10 mg/dL6 - 23 mg/dLElyria Memorial HospitalUnTogus VA Medical CenterAnion gap [Moles/Vol]10 mmol/LNormal 10-20UnBarney Children's Medical CenterComment on above:Performed By: #### 53495-4 #### PACHECO Ferraro (20430) [facility] ([facility]) [address] [place] [address]Vegzgic [Mass/Vol]8.6 mg/dLNormal8.6-10.6UnBarney Children's Medical CenterComment on above:Performed By: #### 05276-6 #### PACHECO Ferraro (43255) [facility] ([facility]) [address] [place] [address]Ptsxcagj [Moles/Vol]105 mmol/VTmrjkl41-837FvlxdviisuBarney Children's Medical CenterComment on above:Performed By: #### 32530-6 #### PACHECO Ferraro (98543) [facility] ([facility]) [address] [place] [address]FE3 [Moles/Vol]27 mmol/HWnzook82-40GchbfwnvywBarney Children's Medical CenterComment on above:Performed By: #### 65011-3 #### PACHECO Ferraro (53869) [facility] ([facility]) [address] [place] [address]Wghdtldozw [Mass/Vol]0.58 mg/dLNormal0.50-1.30UnBarney Children's Medical CenterComment on above:Performed By: #### 75042-4 #### PACHECO Ferraro (35292) [facility] ([facility]) [address] [place], [place] [address]RHT/1.73 sq M.predicted MDRD (S/P/Bld) [Vol rate/Area] mL/min/{1.73_m2}Normal>60UnBarney Children's Medical CenterComment on above:Result Comment: Calculations of estimated GFR are performed using the 2020 CKD-EPI Study Refit equation without the race variable for the IDMS-Traceable creatinine methods. https://jasn.asnjournals.org/content/early//ASN.8300799604Abpamjhjw By: #### 75732-6 #### PACHECO Ferraro (06484) [facility] ([facility]) [address] [place] [address]Pszddhf [Mass/Vol]181 mg/oOGljn68-33KxcznwulvpBarney Children's Medical CenterComment on above:Performed By: #### 48996-0 #### PACHECO Ferraro (09678) [facility] ([facility]) [address] [place], [place] [address]Qvajymbkm [Moles/Vol]3.3 mmol/LLow3.5-5.3[facility] Medical CenterComment on above:Performed By: #### 04103-0 #### PACHECO Ferraro (94953) [facility] ([facility]) [address] [place] [address]Xxupor [Moles/Vol]139 mmol/BHdkvaz058-088NpuxzghyfyBarney Children's Medical CenterComment on above:Performed By: #### 02222-4 #### PACHECO Ferraro (40906) [facility] ([facility]) [address] [place] [address]Ajhc nitrogen [Mass/Vol]10 mg/dLNormal6-23[facility] Medical CenterComment on above:Performed By: #### 64119-2 #### PACHECO Ferraro (68265) [facility] ([facility]) [address] [place] [address]EKG panel Auto (Bld)on 71-40-0758Fougoobbyux distribution width (RBC) [Ratio]14.2 %11.5 - 14.5 %[facility] Hematocrit (Bld) [Volume fraction]31.3 %Low41.0 - 52.0 %[facility] HospitalHemoglobin (Bld) [Mass/Vol]10.1 g/dLLow13.5 - 17.5 g/dLElyria Memorial HospitalInterpretation and review of laboratory resultsAbnoAvita Health System Galion Hospital (RBC) [Entitic mass]29.3 pg26.0 - 34.0 pg [facility] HospitalHC (RBC) [Mass/Vol]32.3 g/dL32.0 - 36.0 g/dL [facility] HospitalV (RBC) [Entitic vol]91 fL80 - 100 fL [facility] HospitalNucleated RBC/100 WBC (Bld) [Ratio]0.0 % [facility] HospitalPlatelets (Bld) [#/Vol]203 10*3/[facility] Hospital LimaRBC (Bld) [#/Vol]3.45 10*6/Parkview HealthWBC (Bld) [#/Vol]9.4 10*3/[facility] LimaUnTogus VA Medical CenterErythrocyte distribution width (RBC) [Ratio]14.2 %Normal 11.5-14.5UnBarney Children's Medical CenterComment on above:Performed By: #### 35225-2 #### PACHECO Ferraro (49889) [facility] ([facility]) [address] [place], [place] [address]Hczgydpyha (Bld) [Volume fraction]31.3 %Low41.0-52.0 [facility] Medical CenterComment on above:Performed By: #### 84329-9 #### PACHECO Ferraro (91484) [facility] ([facility]) [address] [place], [place] [address]Dfssjdooti (Bld) [Mass/Vol]10.1 g/dLLow13.5-17.5UnBarney Children's Medical CenterComment on above:Performed By: #### 39674-2 #### PACHECO Ferraro (53968) [facility] ([facility]) [address] [place], [place] [address]PVC (RBC) [Entitic mass]29.3 daSntorb94.0-34.0[facility] Medical CenterComment on above:Performed By: #### 61385-1 #### PACHECO Ferraro (85912) [facility] ([facility]) [address] [place] [address]YKFS (RBC) [Mass/Vol]32.3 g/hQPljsuu66.0-36.0[facility] Medical CenterComment on above:Performed By: #### 00582-7 #### PACHECO Ferraro (82980) [facility] ([facility]) [address] [place] [address]TWV (RBC) [Entitic vol]91 zLAcdczv04-687TdtmqydzdqBarney Children's Medical CenterComment on above:Performed By: #### 41992-2 #### PACHECO Ferraro (52339) [facility] ([facility]) [address] [place] [address] 29[address]Fqjltzcor RBC/100 WBC (Bld) [Ratio]0.0 /100 WBCsNormal0.0-0.0 [facility] Medical CenterComment on above:Performed By: #### 67339-1 #### PACHECO Ferraro (27449) [facility] ([facility]) [address] [place] [address]Glrbiehix (Bld) [#/Vol]203 x10*3/wDVowczb563-215IxghulnzwaBarney Children's Medical CenterComment on above:Performed By: #### 64167-2 #### PACHECO Ferraro (36275) [facility] ([facility]) [address] [place] [address]CPC (Bld) [#/Vol]3.45 x10*6/uLLow4.50-5.90UnBarney Children's Medical CenterComment on above:Performed By: #### 77833-0 #### PACHECO Ferraro (04643) [facility] ([facility]) [address] [place] [address]UOJ (Bld) [#/Vol]9.4 x10*3/uLNormal4.4-11.3UnBarney Children's Medical CenterComment on above:Performed By: #### 70097-3 #### PACHECO Ferraro (83302) [facility] ([facility]) [address] [place] [address] 214[address]Isvewli Test strip manual (Bld) [Mass/Vol]on 06-03-2023 Glucose [Mass/Vol]207 mg/nYGomw95 - 99 mg/dLUnTogus VA Medical Center Interpretation and review of laboratory resultsAbnoSelect Medical Specialty Hospital - Cleveland-FairhillGlucose [Mass/Vol]207 mg/jNRmou79-04 [facility] Medical CenterComment on above:Performed By: #### 69517-5 #### PACHECO Ferraro (23377) [facility] ([facility]) [address] [place] [address] 7[address]Uyyymez [Mass/Vol]224 mg/vLHelw82 - 99 mg/dLUnTogus VA Medical CenterInterpretation and review of laboratory resultsAbTogus VA Medical CenterGlucose [Mass/Vol]224 mg/kMPorn06-36FnbddrzodxBarney Children's Medical CenterComment on above:Performed By: #### 29992-1 #### PACHECO Ferraro (58764) [facility] ([facility]) [address] [place] [address] 094[address]Jtbrudn [Mass/Vol]129 mg/bAPxmz00 - 99 mg/dLUnTogus VA Medical CenterInterpretation and review of laboratory resultsAbTogus VA Medical CenterGlucose [Mass/Vol]129 mg/lTGnyz72-37QmclboshmwBarney Children's Medical CenterComment on above:Performed By: #### 42362-2 #### PACHECO Ferraro (61380) [facility] ([facility]) [address] [place], [place] [address]DPH panel Auto (Bld)on 71-00-1300Xyznilkuwdr distribution width (RBC) [Ratio]14.6 %High11.5 - 14.5 %[facility] Hematocrit (Bld) [Volume fraction]34.9 %Low41.0 - 52.0 %[facility] HospitalHemoglobin (Bld) [Mass/Vol]10.9 g/dLLow13.5 - 17.5 g/dLUnTogus VA Medical CenterInterpretation and review of laboratory resultsAbnoAvita Health System Galion Hospital (RBC) [Entitic mass]28.7 pg26.0 - 34.0 pg [facility] HospitalHC (RBC) [Mass/Vol]31.2 g/dLLow32.0 - 36.0 g/dLOhioHealth Grady Memorial HospitalV (RBC) [Entitic vol]92 fL80 - 100 fL [facility] HospitalNucleated RBC/100 WBC (Bld) [Ratio]0.0 % [facility] HospitalPlatelets (Bld) [#/Vol]243 10*3/[facility] Hospital LimaRBC (Bld) [#/Vol]3.80 10*6/Parkview HealthWBC (Bld) [#/Vol]10.6 10*3/[facility] Medical CenterErythrocyte distribution width (RBC) [Ratio] 14.6 %High11.5-14.5UnBarney Children's Medical CenterComment on above:Performed By: #### 20511-9 #### PACHECO Ferraro (95640) [facility] ([facility]) [address] [place] [address]Fgbgloabts (Bld) [Volume fraction]34.9 %Low41.0-52.0 [facility] Medical CenterComment on above:Performed By: #### 01821-3 #### PACHECO Ferraro (82037) [facility] ([facility]) [address] [place], [place] [address]Biflcaovfl (Bld) [Mass/Vol]10.9 g/dLLow13.5-17.5UnBarney Children's Medical CenterComment on above:Performed By: #### 39779-6 #### PACHECO Ferraro (79908) [facility] ([facility]) [address] [place], [place] [address]YLD (RBC) [Entitic mass]28.7 vjXvpelr62.0-34.0UnBarney Children's Medical CenterComment on above:Performed By: #### 31505-0 #### PACHECO Ferraro (35386) [facility] ([facility]) [address] [place], [place] [address]ALKM (RBC) [Mass/Vol]31.2 g/dLLow32.0-36.0UnBarney Children's Medical CenterComment on above:Performed By: #### 19238-1 #### PACHECO Ferraro (70425) [facility] ([facility]) [address] [place] [address]CPT (RBC) [Entitic vol]92 uHZtmtvt83-719FhbrciqlcbBarney Children's Medical CenterComment on above:Performed By: #### 99405-5 #### PACHECO Ferraro (29325) [facility] ([facility]) [address] [place], [place] [address]Kkgyfttnc RBC/100 WBC (Bld) [Ratio]0.0 /100 WBCsNormal0.0-0.0 [facility] Medical CenterComment on above:Performed By: #### 71600-8 #### PACHECO Ferraro (55709) [facility] ([facility]) [address] [place], [place] [address]Vnucgpfer (Bld) [#/Vol]243 x10*3/yQNcudlk404-994JnoyfbhmkmBarney Children's Medical CenterComment on above:Performed By: #### 04295-8 #### PACHECO Ferraro (39561) [facility] ([facility]) [address] [place] [address] 89793CLO (Bld) [#/Vol]3.80 x10*6/uLLow4.50-5.90UnBarney Children's Medical CenterComment on above:Performed By: #### 72637-9 #### PACHECO Ferraro (51847) [facility] ([facility]) [address] [place] [address] 67[address]WYI (Bld) [#/Vol]10.6 x10*3/uLNormal4.4-11.3[facility] Medical CenterComment on above:Performed By: #### 59095-0 #### PACHECO Ferraro (75595) [facility] ([facility]) [address] [place] [address] 108[address]Rayhvvxnyggv 93-63-3873Quqdrxzaqf Coag (PPP) [Mass/Vol]270 mg/dL200 - 400 mg/dLElyria Memorial HospitalFibrinogen Coag (PPP) [Mass/Vol]270 mg/dQAlefki055-279AuebdporpnBarney Children's Medical Center Comment on above:Performed By: #### [id number] #### PACHECO Ferraro ([id number]) [facility] ([facility]) [address] [place] [address] [id number] Coag (PPP) [Mass/Vol]on [id number] and review of laboratory resultsNoAdams County Regional Medical CenterGlucose Test strip manual (Bld) [Mass/Vol]on [id number] [Mass/Vol]248 mg/oJFrjl81 - 99 mg/dLElyria Memorial HospitalInterpretation and review of laboratory resultsAbnoKettering HealthUnTogus VA Medical CenterGlucose [Mass/Vol]248 mg/dLAfwt46-32PsxqetlzskBarney Children's Medical CenterComment on above: Performed By: #### 90058-2 #### PACHECO Ferraro ([id number]) [facility] ([facility]) [id number] [place] [address] [id number] [Mass/Vol]278 mg/dURwfz50 - 99 mg/dLElyria Memorial HospitalInterpretation and review of laboratory resultsAbPremier HealthUnTogus VA Medical CenterGlucose [Mass/Vol]233 mg/eEMkcl15 - 99 mg/dLUnTogus VA Medical Center Interpretation and review of laboratory resultsAbnormalURegency Hospital Cleveland EastUnTogus VA Medical CenterGlucose [Mass/Vol]278 mg/hSXesn95-86 [facility] CenterComment on above:Performed By: #### [id number] #### PACHECO Ferraro ([id number]) [facility] LAB ([facility]) [id number] [place] [address] 55671Dosxewc [Mass/Vol]233 mg/nEAmpl44-89KuqahkzqomBarney Children's Medical CenterComment on above:Performed By: #### 19445-4 #### PACHECO Ferraro ([id number]) [facility] ([facility]) [address] [place] [address] 35660Psfewfzwndp 31-50-0475Bznfemepu [Mass/Vol]1.74 mg/dL1.60 - 2.40 mg/dLUnTogus VA Medical CenterMagnesium [Mass/Vol]1.74 mg/dLNormal 1.60-2.40UnBarney Children's Medical CenterComment on above:Performed By: #### 46978-7 #### PACHECO Ferraro ([id number]) [facility] ([facility]) [address] [place] [address] 35191Mndhgrtld [Mass/Vol]on 05-13-4699Wdoullfuzhizku and review of laboratory resultsNoKettering HealthNo Panel Informationon 54-17-9654AvfojriiyiTogus VA Medical CenterRenal function 2000 panelon 44-70-3633Ovoimeo BCP dye [Mass/Vol]3.8 g/dL3.4 - 5.0 g/dLUnTogus VA Medical CenterAnion gap [Moles/Vol]11 mmol/L10 - 20 mmol/[facility] HospitalCalcium [Mass/Vol]8.7 mg/dL8.6 - 10.6 mg/dLUnTogus VA Medical CenterChloride [Moles/Vol]102 mmol/L98 - 107 mmol/[facility] HospitalCO2 [Moles/Vol]26 mmol/L21 - 32 mmol/[facility] Creatinine [Mass/Vol]0.71 mg/dL0.50 - 1.30 mg/dLUnTogus VA Medical CentereGFR- PINFUniCleveland Clinic Union HospitalComment on above: Calculations of estimated GFR are performed using the 2020 CKD-EPI Study Refit equation without therace variable for the IDMS-Traceable creatinine methods. https://jasn.asnjournals.org/content//ASN.6385753491 Glucose [Mass/Vol]163 mg/iBCfhr55 - 99 mg/dLUnTogus VA Medical Center Interpretation and review of laboratory resultsAbnoKettering HealthPhosphate [Mass/Vol]2.1 mg/dLLow2.5 - 4.9 mg/dLUnTogus VA Medical CenterComveterans affairs ann [facility]bor [facility] system on above:The performance characteristics of phosphorus testing in heparinized plasma have been validated by the individual laboratory site where testing is performed. Testing on heparinized plasma is not approved by the FDA; however, such approval is not necessary.Potassium [Moles/Vol]3.3 mmol/LLow 3.5 - 5.3 mmol/[facility] HospitalSodium [Moles/Vol]136 mmol/L136 - 145 mmol/[facility] HospitalUrea nitrogen [Mass/Vol]8 mg/dL6 - 23 mg/dLUnTogus VA Medical CenterAlbumin BCP dye [Mass/Vol]3.8 g/dL Normal3.4-5.0UnBarney Children's Medical CenterComment on above: Performed By: #### 62667-3 #### PACEHCO Ferraro ([id number]) [facility] ([facility]) [address] [place] [address] 80195Jdkvb gap [Moles/Vol]11 mmol/YBfkgoj28-13QmsbvuvgdnBarney Children's Medical CenterComment on above:Performed By: #### 94483-8 #### PACHECO Ferraro ([id number]) [facility] ([facility]) [address] [place] [address] 37958Evubhgh [Mass/Vol]8.7 mg/dLNormal8.6-10.6UnBarney Children's Medical CenterComment on above:Performed By: #### 08375-9 #### PACHECO Ferraro ([id number]) [facility] ([facility]) [address] [place], [place] [address]Rmsufamr [Moles/Vol]102 mmol/NIuhtsv77-955WljzudgtpbMetrohealth Main Campus Medical CenterComment on above:Performed By: #### 66567-2 #### PACHECO Ferraro ([id number]) [facility] ([facility]) [address] [place], [place] [address]GR8 [Moles/Vol]26 mmol/JXolhcz11-86RfsvgrfdlgMetrohealth Main Campus Medical CenterComment on above:Performed By: #### 84914-3 #### PACHECO Ferraro ([id number]) [facility] ([facility]) [address] [place] [address] 08768Rendniwtdo [Mass/Vol]0.71 mg/dLNormal0.50-1.30[facility] Campus Medical CenterComment on above:Performed By: #### 15172-4 #### PACHECO Ferraro ([id number]) [facility] ([facility]) [address] [place], [place] [address]MUZ/1.73 sq M.predicted MDRD (S/P/Bld) [Vol rate/Area] mL/min/{1.73_m2}Normal>60UnBarney Children's Medical CenterComment on above:Result Comment: Calculations of estimated GFR are performed using the 2020 CKD-EPI Study Refit equation without the race variable for the IDMS-Traceable creatinine methods. https://jasn.asnjournals.org/content/early//ASN.0718897945Wlrexseht By: #### 77392-1 #### PACHECO Ferraro ([id number]) [facility] ([facility]) [address] [place], [place] [address]Qfvwvul [Mass/Vol]163 mg/oONoqf09-26QiijydwnmeMetrohealth Main Campus Medical CenterComment on above:Performed By: #### 16369-4 #### PACHECO Ferraro (24021) [facility] ([facility]) [address] [place] [address] 20532Gbciqnfhi [Mass/Vol]2.1 mg/dLLow2.5-4.9UnBarney Children's Medical CenterComment on above:Result Comment: The performance characteristics of phosphorus testing in heparinized plasma have been validated by the individual laboratory site where testing is performed. Testing on heparinizedplasma is not approved by the FDA; however, such approval is not necessary.Performed By: #### 09861-6 #### PACHECO Ferraro ([id number]) [facility] ([facility]) [address] [place] [address] 10295Sgthctsfz [Moles/Vol]3.3 mmol/LLow3.5-5.3UnBarney Children's Medical CenterComment on above:Performed By: #### 13360-2 #### PACHECO Ferraro (94411) [facility] ([facility]) [address] [place] [address] 97097Mofxry [Moles/Vol]136 mmol/VWsetce317-903PcgvhdywcjBarney Children's Medical CenterComment on above:Performed By: #### 21417-4 #### PACHECO Ferraro ([id number]) [facility] ([facility]) [address] [place] [address] 83598Bfji nitrogen [Mass/Vol]8 mg/dLNormal6-23UnBarney Children's Medical CenterComment on above:Performed By: #### 25768-1 #### PACHECO Ferraro ([id number]) [facility] ([facility]) [address] [place] [address] 16823WFN panel Auto (Bld)on 49-41-5803Isgracknfbc distribution width (RBC) [Ratio]14.0 %11.5 - 14.5 %[facility] Hematocrit (Bld) [Volume fraction]31.1 %Low41.0 - 52.0 %[facility] HospitalHemoglobin (Bld) [Mass/Vol]10.5 g/dLLow13.5 - 17.5 g/dLUnTogus VA Medical CenterInterpretation and review of laboratory resultsAbnormal [facility] Hospitals [facility] ClevelandMCH (RBC) [Entitic mass]29.0 pg26.0 - 34.0 pg [facility] HospitalMCHC (RBC) [Mass/Vol]33.8 g/dL32.0 - 36.0 g/dL [facility] HospitalMCV (RBC) [Entitic vol]86 fL80 - 100 fL [facility] HospitalNucleated RBC/100 WBC (Bld) [Ratio]0.0 % [facility] HospitalPlatelets (Bld) [#/Vol]233 10*3/[facility]red Hospital LimaRBC (Bld) [#/Vol]3.62 10*6/Parkview HealthWBC (Bld) [#/Vol]9.7 10*3/[facility] Hospital LimaUnTogus VA Medical CenterErythrocyte distribution width (RBC) [Ratio]14.0 %Normal 11.5-14.5UnBarney Children's Medical CenterComment on above:Performed By: #### 20845-4 #### PACHECO Ferraro ([id number]) [facility] ([facility]) [address] [place] [address] 86124Rgkgivyjmv (Bld) [Volume fraction]31.1 %Low41.0-52.0 [facility] Medical CenterComment on above:Performed By: #### 72774-5 #### PACHECO Ferraro ([id number]) [facility] ([facility]) [address] [place] [address] 58579Pqzhzjpkkl (Bld) [Mass/Vol]10.5 g/dLLow13.5-17.5UnBarney Children's Medical CenterComment on above:Performed By: #### 27607-9 #### PACHECO Ferraro ([id number]) [facility] ([facility]) [address] [place] [address] 47839HTB (RBC) [Entitic mass]29.0 aaChpfqq16.0-34.0UnBarney Children's Medical CenterComment on above:Performed By: #### 48406-7 #### PACHECO Ferraro ([id number]) [facility] ([facility]) [address] [place], [place] [address]CAHG (RBC) [Mass/Vol]33.8 g/iHPchmjr86.0-36.0UnBarney Children's Medical CenterComment on above:Performed By: #### 08375-9 #### PACHECO Ferraro ([id number]) [facility] ([facility]) [address] [place], [place] [address]GNU (RBC) [Entitic vol]86 wRLruevn95-294CgxxhzpanhBarney Children's Medical CenterComment on above:Performed By: #### 19199-4 #### PACHECO Ferraro (95712) [facility] ([facility]) [address] [place], [place] [address]Xmyimpjjj RBC/100 WBC (Bld) [Ratio]0.0 /100 WBCsNormal0.0-0.0 [facility] Medical CenterComment on above:Performed By: #### 03515-7 #### PACHECO Ferraro ([id number]) [facility] ([facility]) [address] [place] [address] 73986Ckumofywk (Bld) [#/Vol]233 x10*3/hRPwndge022-141ScwaceutxgBarney Children's Medical CenterComment on above:Performed By: #### 18354-0 #### PACHECO Ferraro ([id number]) [facility] ([facility]) [address] [place] [address] 98439UJU (Bld) [#/Vol]3.62 x10*6/uLLow4.50-5.90UnBarney Children's Medical CenterComment on above:Performed By: #### 35200-2 #### PACHECO Ferraro (04883) [facility] ([facility]) [address] [place] [address] 54236LJV (Bld) [#/Vol]9.7 x10*3/uLNormal4.4-11.3UnBarney Children's Medical CenterComment on above:Performed By: #### 57816-0 #### PACHECO Ferraro ([id number]) [facility] ([facility]) [address] [place], [place] [address]TK FLUORO IMAGES NO CHARGEon 29-17-7215AH FLUORO IMAGES NO CHARGEThese images are not reportable by radiology and will not be interpreted by Radiologists.NormalUnBarney Children's Medical CenterFibrinogen on 54-88-3376Igstffpjch Coag (PPP) [Mass/Vol]195 mg/cKCfh422 - 400 mg/dL [facility] HospitalFibrinogen Coag (PPP) [Mass/Vol]195 mg/dLLow 200-400[facility] Medical CenterComment on above:Performed By: #### 88328-6 #### PACHECO Ferraro ([id number]) [facility] ([facility]) [address] [place], [place] [address]Gectluejlm Coag (PPP) [Mass/Vol]on 72-05-5547Xysmdxhysibday and review of laboratory resultsAbnormalUniversTulsa ER & Hospital – TulsaGas and Carbon monoxide and Electrolytes panel (BldA)on 29-38-7661Brtbz gap 4 (BldA) [Moles/Vol]11[facility] HospitalBase excess Calc (Bld) [Moles/Vol]-3.0000 mmol/LLow-2.0 - 3.0 mmol/L [facility] HospitalCalcium.ionized (BldA) [Moles/Vol]1.18 mmol/L 1.10 - 1.33 mmol/[facility] HospitalChloride (BldA) [Moles/Vol] 106 mmol/L98 - 107 mmol/[facility] HospitalCO2 (Bld) [Partial pressure]38 mm[Hg][facility] HospitalGlucose [Mass/Vol]245 mg/dL High74 - 99 mg/dLElyria Memorial HospitalHCO3 (Bld) [Moles/Vol]22.0 mmol/L22.0 - 26.0 mmol/[facility] HospitalHematocrit Est (Bld) [Volume fraction]32.0 %Low41.0 - 52.0 %[facility] Hemoglobin (Bld) [Mass/Vol]10.5 g/dLLow13.5 - 17.5 g/dLUnTogus VA Medical CenterInhaled oxygen yormnyxeagjlm01 %[facility] Interpretation and review of laboratory resultsAbnormalUniCleveland Clinic Union HospitalLactate (BldA) [Moles/Vol]2.0 mmol/L0.4 - 2.0 mmol/[facility] HospitalOxygen (Bld) [Partial pressure]202 mm[Hg]HighElyria Memorial HospitalOxyhemoglobin (BldA) [Mass fraction]97.7 %94.0 - 98.0 % [facility] HospitalpH (Bld)7.37 [pH]Low7.38 - 7.42 pHElyria Memorial HospitalPotassium (BldA) [Moles/Vol]3.1 mmol/LLow3.5 - 5.3 mmol/L [facility] HospitalSodium (BldA) [Moles/Vol]136 mmol/L136 - 145 mmol/[facility] HospitalUnTogus VA Medical CenterAnion gap 4 (BldA) [Moles/Vol]11 mmo/BXamhtv67-73ZuwidubxhpMetrohealth Main Campus Medical CenterComment on above:Performed By: #### 85570-0 #### PACHECO Ferraro ([id number]) [facility] ([facility]) [address] [place] [address] 35575Shgj excess Calc (Bld) [Moles/Vol]-3.0000 mmol/LLow-2.0-3.0 [facility] Medical CenterComment on above:Performed By: #### 25419-8 #### PACHECO Ferraro ([id number]) [facility] ([facility]) [address] [place] [address] 64899Swplsci.ionized (BldA) [Moles/Vol]1.18 mmol/LNormal1.10-1.33 [facility] Medical CenterComment on above:Performed By: #### 65290-8 #### PACHECO Ferraro ([id number]) [facility] ([facility]) [address] [place] [address] 94909Turjhjay (BldA) [Moles/Vol]106 mmol/EQrliqb30-155JtwldwgexkBarney Children's Medical CenterComment on above:Performed By: #### 22424-0 #### PACHECO Ferraro ([id number]) [facility] ([facility]) [address] [place] [address] 66375II6 (Bld) [Partial pressure]38 mm QwPdprdo79-84AlaqjnyzrpMetrohealth Main Campus Medical CenterComment on above:Performed By: #### 98739-2 #### PACHECO Ferraro ([id number]) [facility] ([facility]) [address] [place] [address] 74294Ewthodx [Mass/Vol]245 mg/xUJjsj96-55YjklndqujkBarney Children's Medical CenterComment on above:Performed By: #### 54601-8 #### PACHECO Ferraro ([id number]) [facility] ([facility]) [address] [place] [address] 32831ZYP5 (Bld) [Moles/Vol]22.0 mmol/QVmphhj20.0-26.0[facility] Medical CenterComment on above:Performed By: #### 13979-4 #### PACHECO Ferraro (00226) [facility] ([facility]) [address] [place] [address] 78082Yyondlomqv Est (Bld) [Volume fraction]32.0 %Low41.0-52.0 [facility] Medical CenterComment on above:Performed By: #### 06984-6 #### PACHECO Ferraro (88632) [facility] ([facility]) [address] [place] [address] 40633Swuntqzdlv (Bld) [Mass/Vol]10.5 g/dLLow13.5-17.5[facility] Medical CenterComment on above:Performed By: #### 35791-7 #### PACHECO Ferraro (92853) [facility] ([facility]) [address] [place] [address] 67562Vbuksvn oxygen umlehbbcnxnrp72 %NormalUnBarney Children's Medical CenterComment on above:Performed By: #### 08628-3 #### PACHECO Ferraro (09122) [facility] ([facility]) [address] [place] [address] 74390Qnghqvu (BldA) [Moles/Vol]2.0 mmol/LNormal0.4-2.0UnBarney Children's Medical CenterComment on above:Performed By: #### 30045-2 #### PACHECO Ferraro (37821) [facility] ([facility]) [address] [place] [address] 00178Usrqap (Bld) [Partial pressure]202 mm VoQzbh11-78SfoldlduuwBarney Children's Medical CenterComment on above:Performed By: #### 59008-0 #### PACHECO Ferraro ([id number]) [facility] ([facility]) [address] [place] [address] 44875Mrahuygpzhvas (BldA) [Mass fraction]97.7 %Josxzt57.0-98.0 [facility] CenterComment on above:Performed By: #### 11659-0 #### PACHECO Ferraro (50054) [facility] ([facility]) [address] [place] [address] 44832nB (Bld)7.37 [pH]Low7.38-7.42UnBarney Children's Medical CenterComment on above:Performed By: #### 20217-6 #### PACHECO Ferraro (48120) [facility] ([facility]) [address] [place] [address] 33842Jjiqmquiy (BldA) [Moles/Vol]3.1 mmol/LLow3.5-5.3UnBarney Children's Medical CenterComment on above:Performed By: #### 50242-8 #### PACHECO Ferraro (89612) [facility] ([facility]) [address] [place] [address] 55015Ujtpuj (BldA) [Moles/Vol]136 mmol/JMjgnpu971-888JqegdnybmjBarney Children's Medical CenterComment on above:Performed By: #### 88634-4 #### PACHECO Ferraro (69262) [facility] ([facility]) [address] [place] [address] 97911Cbamu gap 4 (BldA) [Moles/Vol]13UnTogus VA Medical CenterBase excess Calc (Bld) [Moles/Vol]-3.6000 mmol/LLow-2.0 - 3.0 mmol/L [facility] HospitalCalcium.ionized (BldA) [Moles/Vol]1.17 mmol/L 1.10 - 1.33 mmol/[facility] HospitalChloride (BldA) [Moles/Vol] 106 mmol/L98 - 107 mmol/[facility] HospitalCO2 (Bld) [Partial pressure]38 mm[Hg][facility] HospitalGlucose [Mass/Vol]229 mg/dL High74 - 99 mg/dLUnTogus VA Medical CenterHCO3 (Bld) [Moles/Vol]21.5 mmol/LLow22.0 - 26.0 mmol/[facility] HospitalHematocrit Est (Bld) [Volume fraction]32.0 %Low41.0 - 52.0 %[facility] Hemoglobin (Bld) [Mass/Vol]10.7 g/dLLow13.5 - 17.5 g/dLElyria Memorial HospitalInhaled oxygen fwnhqeyalftvg79 %[facility] Interpretation and review of laboratory resultsAbnormalUniCleveland Clinic Union HospitalLactate (BldA) [Moles/Vol]1.9 mmol/L0.4 - 2.0 mmol/[facility] HospitalOxygen (Bld) [Partial pressure]197 mm[Hg]HighUnTogus VA Medical CenterOxyhemoglobin (BldA) [Mass fraction]97.9 %94.0 - 98.0 % [facility] HospitalpH (Bld)7.36 [pH]Low7.38 - 7.42 pHUnTogus VA Medical CenterPotassium (BldA) [Moles/Vol]3.6 mmol/L3.5 - 5.3 mmol/L [facility] HospitalSodium (BldA) [Moles/Vol]137 mmol/L136 - 145 mmol/[facility] HospitalUnTogus VA Medical CenterAnion gap 4 (BldA) [Moles/Vol]13 mmo/MRegzlx67-09JmfndbwvmvBarney Children's Medical CenterComment on above:Performed By: #### 94608-5 #### PACHECO Ferraro ([id number]) [facility] ([facility]) [address] [place] [address] 72380Bwnc excess Calc (Bld) [Moles/Vol]-3.6000 mmol/LLow-2.0-3.0 [facility] CenterComment on above:Performed By: #### 89045-6 #### PACHECO Ferraro ([id number]) [facility] ([facility]) [address] [place] [address] 56357Ozcbsmr.ionized (BldA) [Moles/Vol]1.17 mmol/LNormal1.10-1.33 [facility] Medical CenterComment on above:Performed By: #### 68895-7 #### PACHECO Ferraro ([id number]) [facility] ([facility]) [address] [place] [address] 98163Dxhxhaoa (BldA) [Moles/Vol]106 mmol/MKusovq63-031ZgelcxqzzvBarney Children's Medical CenterComment on above:Performed By: #### 71176-5 #### PACHECO Ferraro (19884) [facility] ([facility]) [address] [place] [address] 97524UM4 (Bld) [Partial pressure]38 mm DxPcbypy43-42GjkutnypezMetrohealth Main Campus Medical CenterComment on above:Performed By: #### 84041-1 #### PACHECO Ferraro (51791) [facility] ([facility]) [address] [place] [address] 32356Nhdknzu [Mass/Vol]229 mg/dZDnfw35-59BpzvpuyntwBarney Children's Medical CenterComment on above:Performed By: #### 28525-0 #### PACHECO Ferraro (24790) [facility] ([facility]) [address] [place] [address] 94741PXR8 (Bld) [Moles/Vol]21.5 mmol/LLow22.0-26.0[facility] Medical CenterComment on above:Performed By: #### 01066-4 #### PACHECO Ferraro (18629) [facility] ([facility]) [address] [place] [address] 27903Txbcyqndwn Est (Bld) [Volume fraction]32.0 %Low41.0-52.0 [facility] CenterComment on above:Performed By: #### 62368-0 #### PACHECO Ferraro (86077) [facility] ([facility]) [address] [place] [address] 04513Ofhoomcazg (Bld) [Mass/Vol]10.7 g/dLLow13.5-17.5UnBarney Children's Medical CenterComment on above:Performed By: #### 56639-6 #### PACHECO Ferraro (29477) [facility] ([facility]) [address] [place] [address] 93757Oeaujdm oxygen xvazrbqyxwjuq96 %NormalUnBarney Children's Medical CenterComment on above:Performed By: #### 57846-6 #### PACHECO Ferraro ([id number]) [facility] ([facility]) [address] [place] [address] 63065Uucigbi (BldA) [Moles/Vol]1.9 mmol/LNormal0.4-2.0UnBarney Children's Medical CenterComment on above:Performed By: #### 20944-1 #### PACHECO Ferraro (67447) [facility] ([facility]) [address] [place] [address] 27874Zlootg (Bld) [Partial pressure]197 mm TnVpya07-01GjkvfgxcypBarney Children's Medical CenterComment on above:Performed By: #### 63849-5 #### PACHECO Ferraro (62108) [facility] ([facility]) [address] [place] [address] 37974Unwcfkliqfyyk (BldA) [Mass fraction]97.9 %Kxsaoq46.0-98.0 [facility] CenterComment on above:Performed By: #### 18650-0 #### PACHECO Ferraro ([id number]) [facility] ([facility]) [address] [place], [place] [address]cK (Bld)7.36 [pH]Low7.38-7.42[facility] Medical CenterComment on above:Performed By: #### 94850-8 #### PACHECO Ferraro (94447) [facility] ([facility]) [address] [place] [address] 58440Rztibioig (BldA) [Moles/Vol]3.6 mmol/LNormal3.5-5.3UnBarney Children's Medical CenterComment on above:Performed By: #### 40720-7 #### PACHECO Ferraro ([id number]) [facility] ([facility]) [address] [place] [address] 05341Amcgou (BldA) [Moles/Vol]137 mmol/QHmhhcw863-814GxoyocvsvfBarney Children's Medical CenterComment on above:Performed By: #### 73995-7 #### PACHECO Ferraro (24342) [facility] ([facility]) [address] [place] [address] 23229Clqmk gap 4 (BldA) [Moles/Vol]10[facility] HospitalBase excess Calc (Bld) [Moles/Vol]-1.3000 mmol/L-2.0 - 3.0 mmol/L [facility] HospitalCalcium.ionized (BldA) [Moles/Vol]1.15 mmol/L 1.10 - 1.33 mmol/[facility] HospitalChloride (BldA) [Moles/Vol] 106 mmol/L98 - 107 mmol/[facility] HospitalCO2 (Bld) [Partial pressure]40 mm[Hg][facility] HospitalGlucose [Mass/Vol]224 mg/dL High74 - 99 mg/dLUnTogus VA Medical CenterHCO3 (Bld) [Moles/Vol]23.7 mmol/L22.0 - 26.0 mmol/[facility] HospitalHematocrit Est (Bld) [Volume fraction]36.0 %Low41.0 - 52.0 %[facility] Hemoglobin (Bld) [Mass/Vol]12.0 g/dLLow13.5 - 17.5 g/dLElyria Memorial HospitalInhaled oxygen ggkcmdbwoiwpy58 %[facility] Interpretation and review of laboratory resultsAbnormalUniCleveland Clinic Union HospitalLactate (BldA) [Moles/Vol]1.4 mmol/L0.4 - 2.0 mmol/[facility] HospitalOxygen (Bld) [Partial pressure]197 mm[Hg]HighElyria Memorial HospitalOxyhemoglobin (BldA) [Mass fraction]98.4 %High94.0 - 98.0 %[facility] HospitalpH (Bld)7.38 [pH]7.38 - 7.42 pHElyria Memorial HospitalPotassium (BldA) [Moles/Vol]4.1 mmol/L3.5 - 5.3 mmol/L [facility] HospitalSodium (BldA) [Moles/Vol]136 mmol/L136 - 145 mmol/[facility] HospitalUnTogus VA Medical CenterAnion gap 4 (BldA) [Moles/Vol]10 mmo/CUvxdvx46-90PjnpuymzksBarney Children's Medical CenterComment on above:Performed By: #### [id number] #### PACHECO Ferraro ([id number]) [facility] ([facility]) [address] [place] [address] [id number] excess Calc (Bld) [Moles/Vol]-1.3000 mmol/LNormal -2.0-3.0UnBarney Children's Medical CenterComment on above:Performed By: #### [id number] #### PACHECO Ferraro ([id number]) [facility] ([facility]) [address] [place] [address] [id number].ionized (BldA) [Moles/Vol]1.15 mmol/LNormal1.10-1.33 [facility] Medical CenterComment on above:Performed By: #### [id number] #### PACHECO Ferraro ([id number]) [facility] ([facility]) [address] [place] [address] [id number] (BldA) [Moles/Vol]106 mmol/DXmyjvo47-412TgspznuortBarney Children's Medical CenterComment on above:Performed By: #### [id number] #### PACHECO Ferraro ([id number]) [facility] ([facility]) [id number] [place] [address] 36787SE5 (Bld) [Partial pressure]40 mm WjHwuaym43-82NkfsiweuyhMetrohealth Main Campus Medical CenterComment on above:Performed By: #### 17293-8 #### PACHECO Ferraro ([id number]) [facility] ([facility]) [address] [place] [address] 78725Eenmrzd [Mass/Vol]224 mg/zKLcip54-41CzwghozevvMetrohealth Main Campus Medical CenterComment on above:Performed By: #### 52295-1 #### PACHECO Ferraro ([id number]) [facility] ([facility]) [address] [place] [address] 19699ZGO7 (Bld) [Moles/Vol]23.7 mmol/USiiiwf06.0-26.0[facility] Medical CenterComment on above:Performed By: #### 04108-1 #### PACHECO Ferraro ([id number]) [facility] ([facility]) [address] [place] [address] 04464Qagrswznxu Est (Bld) [Volume fraction]36.0 %Low41.0-52.0 [facility] Medical CenterComment on above:Performed By: #### 22996-5 #### PACHECO Ferraro ([id number]) [facility] ([facility]) [address] [place] [address] 25910Nyoncgpdbs (Bld) [Mass/Vol]12.0 g/dLLow13.5-17.5[facility] Medical CenterComment on above:Performed By: #### 65068-5 #### PACHECO Ferraro ([id number]) [facility] ([facility]) [address] [place] [address] 05041Whtmraw oxygen pnaefrjjlywzc24 %NormalUnBarney Children's Medical CenterComment on above:Performed By: #### 84967-0 #### PACHECO Ferraro (60392) [facility] ([facility]) [address] [place], [place] [address]Cqdglmk (BldA) [Moles/Vol]1.4 mmol/LNormal0.4-2.0UnBarney Children's Medical CenterComment on above:Performed By: #### 50913-2 #### PACHECO Ferraro (35021) [facility] ([facility]) [address] [place], [place] [address]Csudoc (Bld) [Partial pressure]197 mm MmBhba22-23PjbazgygkvBarney Children's Medical CenterComment on above:Performed By: #### 43075-2 #### PACHECO Ferraro (58443) [facility] ([facility]) [address] [place] [address] 56945Hcbpgpkikuift (BldA) [Mass fraction]98.4 %High94.0-98.0 [facility] Medical CenterComment on above:Performed By: #### 96896-3 #### PACHECO Ferraro ([id number]) [facility] ([facility]) [address] [place] [address] 14237pK (Bld)7.38 [pH]Normal7.38-7.42[facility] Medical CenterComment on above:Performed By: #### 99296-0 #### PACHECO Ferraro ([id number]) [facility] ([facility]) [address] [place] [address] 82786Pzrjcciul (BldA) [Moles/Vol]4.1 mmol/LNormal3.5-5.3UnBarney Children's Medical CenterComment on above:Performed By: #### 78135-4 #### PACHECO Ferraro ([id number]) [facility] ([facility]) [address] [place] [address] 70912Eulcxa (BldA) [Moles/Vol]136 mmol/NDhssan652-598JkizrgrnuzBarney Children's Medical CenterComment on above:Performed By: #### 11656-0 #### PACHECO Ferraro ([id number]) [facility] ([facility]) [address] [place] [address] 66836Cdzqr gap 4 (BldA) [Moles/Vol]11UnTogus VA Medical CenterBase excess Calc (Bld) [Moles/Vol]-2.3000 mmol/LLow-2.0 - 3.0 mmol/L [facility] HospitalCalcium.ionized (BldA) [Moles/Vol]1.20 mmol/L 1.10 - 1.33 mmol/[facility] Memorial HospitalChloride (BldA) [Moles/Vol] 105 mmol/L98 - 107 mmol/[facility] Memorial HospitalCO2 (Bld) [Partial pressure]38 mm[Hg][facility] HospitalGlucose [Mass/Vol]145 mg/dL High74 - 99 mg/dLUnTogus VA Medical CenterHCO3 (Bld) [Moles/Vol]22.5 mmol/L22.0 - 26.0 mmol/[facility] Memorial HospitalHematocrit Est (Bld) [Volume fraction]37.0 %Low41.0 - 52.0 %[facility] Hemoglobin (Bld) [Mass/Vol]12.4 g/dLLow13.5 - 17.5 g/dLElyria Memorial HospitalInhaled oxygen jcqzcvbzqbyqz23 %[facility] Interpretation and review of laboratory resultsAbnormalUniCleveland Clinic Union HospitalLactate (BldA) [Moles/Vol]1.1 mmol/L0.4 - 2.0 mmol/[facility] HospitalOxygen (Bld) [Partial pressure]209 mm[Hg]HighUnTogus VA Medical CenterOxyhemoglobin (BldA) [Mass fraction]98.0 %94.0 - 98.0 % [facility] HospitalpH (Bld)7.38 [pH]7.38 - 7.42 pHUnTogus VA Medical CenterPotassium (BldA) [Moles/Vol]2.9 mmol/LCritically low3.5 - 5.3 mmol/[facility] Memorial HospitalSodium (BldA) [Moles/Vol]136 mmol/L 136 - 145 mmol/[facility]by Memorial HospitalUnTogus VA Medical CenterAnion gap 4 (BldA) [Moles/Vol]11 mmo/ZEkkbgt83-82TlwnzbqdpsBarney Children's Medical CenterComment on above:Performed By: #### 43108-5 #### PACHECO Ferraro ([id number]) [facility] ([facility]) [address] [place] [address] 60030Lsdm excess Calc (Bld) [Moles/Vol]-2.3000 mmol/LLow-2.0-3.0 [facility] Medical CenterComment on above:Performed By: #### 49531-0 #### PACHECO Ferraro (69772) [facility] ([facility]) [address] [place] [address] 35389Tivxrbf.ionized (BldA) [Moles/Vol]1.20 mmol/LNormal1.10-1.33 [facility] Medical CenterComment on above:Performed By: #### 56201-3 #### PACHECO Ferraro ([id number]) [facility] ([facility]) [address] [place] [address] 73345Ylpjojcq (BldA) [Moles/Vol]105 mmol/RFkgsut32-933JplpkxkykqBarney Children's Medical CenterComment on above:Performed By: #### 89592-2 #### PACHECO Ferraro ([id number]) [facility] ([facility]) [address] [place] [address] 89767HT8 (Bld) [Partial pressure]38 mm MmYwwjei80-11FccoitbmgaMetrohealth Main Campus Medical CenterComment on above:Performed By: #### 84743-8 #### PACHECO Ferraro ([id number]) [facility] ([facility]) [address] [place] [address] 41956Lissmvn [Mass/Vol]145 mg/oXIrag29-29NjkfoqhtnfBarney Children's Medical CenterComment on above:Performed By: #### 74922-7 #### PACHECO Ferraro (24951) [facility] ([facility]) [address] [place] [address] 00480OXM1 (Bld) [Moles/Vol]22.5 mmol/GQtympt75.0-26.0UnBarney Children's Medical CenterComment on above:Performed By: #### 78415-9 #### PACHECO Ferraro ([id number]) [facility] ([facility]) [address] [place] [address] 62579Lwdenvxrsi Est (Bld) [Volume fraction]37.0 %Low41.0-52.0 [facility] Medical CenterComment on above:Performed By: #### 91057-2 #### PACHECO Ferraro ([id number]) [facility] ([facility]) [address] [place] [address] 97531Bhmjquwvgt (Bld) [Mass/Vol]12.4 g/dLLow13.5-17.5UnBarney Children's Medical CenterComment on above:Performed By: #### 05132-2 #### PACHECO Ferraro ([id number]) [facility] ([facility]) [address] [place] [address] 58309Xnvribm oxygen qihnelckugsnv25 %NormalUnBarney Children's Medical CenterComment on above:Performed By: #### 85389-3 #### PACHECO Ferraro ([id number]) [facility] ([facility]) [address] [place] [address] 42363Mufmpju (BldA) [Moles/Vol]1.1 mmol/LNormal0.4-2.0UnBarney Children's Medical CenterComment on above:Performed By: #### 68654-8 #### PACHECO Ferraro ([id number]) [facility] ([facility]) [address] [place] [address] 49210Uyuuuj (Bld) [Partial pressure]209 mm DtXidz11-72OcebounmrmBarney Children's Medical CenterComment on above:Performed By: #### 80212-0 #### PACHECO Ferraro (59148) [facility] ([facility]) [address] [place] [address] 55349Msnzpsuibutpx (BldA) [Mass fraction]98.0 %Ktibsp18.0-98.0 [facility] CenterComment on above:Performed By: #### 61411-0 #### PACHECO Ferraro (70825) [facility] ([facility]) [address] [place] [address] 76051rO (Bld)7.38 [pH]Normal7.38-7.42[facility] Medical CenterComment on above:Performed By: #### 24638-9 #### PACHECO Ferraro (69221) [facility] ([facility]) [address] [place] [address] 02322Mawzywfhj (BldA) [Moles/Vol]2.9 mmol/LCritically low3.5-5.3 [facility] CenterComment on above:Performed By: #### 49868-9 #### PACHECO Ferraro (23525) [facility] ([facility]) [address] [place] [address] 97138Yqouis (BldA) [Moles/Vol]136 mmol/NRjoowd078-454CtgdlsrbyoBarney Children's Medical CenterComment on above:Performed By: #### 43579-0 #### PACHECO Ferraro ([id number]) [facility] ([facility]) [address] [place] [address] 91329Ggqdqst Test strip manual (Bld) [Mass/Vol]on 06-01-2023 Glucose [Mass/Vol]178 mg/wHTjeh24 - 99 mg/dLUnTogus VA Medical Center Interpretation and review of laboratory resultsAbnoKettering HealthUnTogus VA Medical CenterGlucose [Mass/Vol]178 mg/yYRraz47-71 [facility] CenterComment on above:Performed By: #### 85279-4 #### PACHECO Ferraro ([id number]) [facility] ([facility]) [address] [place] [address] 83709Qfoktlp [Mass/Vol]99 mg/dL74 - 99 mg/dLUnTogus VA Medical CenterInterpretation and review of laboratory resultsNoSelect Medical Specialty Hospital - Cleveland-FairhillGlucose [Mass/Vol]99 mg/oPRpooek00-36GzggtmxdlbBarney Children's Medical CenterComment on above: Performed By: #### 2341-6 #### PACHECO Ferraro ([id number]) [facility] ([facility]) [address] [place], [place] [address]Jaoalvgmlnv 00-75-4554Pdvucdhzi [Mass/Vol]1.74 mg/dL1.60 - 2.40 mg/dLElyria Memorial HospitalMagnesium [Mass/Vol]1.74 mg/dLNormal 1.60-2.40[facility] Medical CenterComment on above:Performed By: #### 15443-9 #### PACHECO Ferraro ([id number]) [facility] ([facility]) [address] [place], [place] [address]Elmigsyho [Mass/Vol]on 88-62-9516Nnvxxkcxusgdhh and review of laboratory resultsNormalUSalem Regional Medical CenterVERAB/VERIFY ABORHon 92-11-9207VAT group Nom (Bld)ONRiverside Methodist HospitalComment on above:Performed By: #### VERAB #### PACHECO Ferraro ([id number]) [facility] ([facility]) [address] [place] [address] 13372A Ag Ql (Bld)NegativeNoKindred Hospital LimaComment on above:Performed By: #### VERAB #### PACHECO Ferraro ([id number]) [facility] ([facility]) [address] [place] [address] 40040Bvzcbu ABO/Rh Group Test (VERAB)on 64-63-8144HQP group Nom (Bld)OURegency Hospital Cleveland EastD Ag Ql (Bld)NegativeOhioHealth Hardin Memorial HospitalXR tomography Unspecified body regionon 12-67-6916Mjbqj images are not reportable by radiology and will not be interpreted by Radiologists.IMAGINGThese images are not reportable by radiology and will not be interpreted by Radiologists.IMAGINGNo Panel InformationOrdered By: Antione Hong on 97-87-0139Bbwjhl Npaa26KFUAfgdkexgflOhioHealth Work Phone: p Oppr7uadmvfdGwabzyackzElyria Memorial Hospital Work Phone: P Mgoooz[address] [facility] Work Phone: P Brbvx[address] [facility] Work Phone: PR Ckjeljfs[address] [facility] Work Phone: Q Myzsp[address] [facility] Work Phone: QRS Orlvf23iyauhEjoozbwkgsDeaconess Gateway and Women's Hospital Work Phone: QRS Iqnrtpgh[address] [facility] Work Phone: QT Tutfrrdv7[address] [facility] Work Phone: QTC Calculation(Bazett)[address] [facility] Work Phone: QTC Pxcelowvmt[address] [facility] Work Phone: [phone] [place]-20deParma Community General Hospital Work Phone: T Czou76vzkfnblLyyxinbyryHolzer Hospital Work Phone: T Udljzm[address] [facility] Work Phone: [phone] Jlhs48IADVzqfyuhhvaOhioHealth Work Phone: [facility] Work Phone: No Panel Informationon 49-14-3449Vgskws sinus rhythm Nonspecific T wave abnormality No previous ECGs available Confirmed by Antione Hong ([id number]) on 05/18/2023 4:34:09 PMAntione Pittman MD - 05/18/2023 Normal sinus rhythm Nonspecific T wave abnormality No previous ECGs available Confirmed by Antione Hong ([id number]) on 05/18/2023 4:34:09 PM [facility] Work Phone: Easic metabolic 2000 panelon 20-61-2712Dtuih gap [Moles/Vol]15 mmol/OVgwayd81-10EenbhmpczsMetrohealth Main Campus Medical Center Comment on above:Performed By: #### 09055-5 #### PACHECO Ferraro ([id number]) [facility] ([facility]) [address] [place], [place] [address]Inuxtbw [Mass/Vol]10.1 mg/dLNormal8.6-10.6[facility] Medical CenterComment on above:Performed By: #### 16730-3 #### PACHECO Ferraro (01043) [facility] ([facility]) [address] [place], [place] [address]Jfbjqybz [Moles/Vol]107 mmol/YLhrdrn42-886MpdaheacsbBarney Children's Medical CenterComment on above:Performed By: #### 72501-8 #### PACHECO Ferraro (00314) [facility] ([facility]) [address] [place] [address] 74635OC4 [Moles/Vol]23 mmol/YIfqqcx24-24AcvkbpblaxBarney Children's Medical CenterComment on above:Performed By: #### 88698-6 #### PACHECO Ferraro ([id number]) [facility] ([facility]) [address] [place], [place] [address]Ohvxsyqhgm [Mass/Vol]0.73 mg/dLNormal0.50-1.30[facility] Medical CenterComment on above:Performed By: #### 87022-5 #### PACHECO Ferraro (99734) [facility] ([facility]) [address] [place], [place] [address]KRL/1.73 sq M.predicted MDRD (S/P/Bld) [Vol rate/Area] mL/min/{1.73_m2}Normal>60UnBarney Children's Medical CenterComment on above:Result Comment: Calculations of estimated GFR are performed using the 2020 CKD-EPI Study Refit equation without the race variable for the IDMS-Traceable creatinine methods. https://jasn.asnjournals.org/content//ASN.4530736263Mukxkesuv By: #### 80348-1 #### PACHECO Ferraro (27455) [facility] ([facility]) [address] [place], [place] [address]Pjiuwel [Mass/Vol]89 mg/uGRbefmi94-76JmwnmorruqMetrohealth Main Campus Medical CenterComment on above:Performed By: #### 05892-4 #### PACHECO Ferraro ([id number]) [facility] ([facility]) [address] [place], [place] [address]Gvlbldgrz [Moles/Vol]3.9 mmol/LNormal3.5-5.3[facility] Medical CenterComment on above:Performed By: #### 27902-2 #### PACHECO Ferraro ([id number]) [facility] ([facility]) [address] [place] [address] 99694Xukpsk [Moles/Vol]141 mmol/HXbladb865-221HspwvstikyBarney Children's Medical CenterComment on above:Performed By: #### 58478-3 #### PACHECO Ferraro ([id number]) [facility] ([facility]) [address] [place] [address] 70204Kwfp nitrogen [Mass/Vol]13 mg/dLNormal6-23[facility] Medical CenterComment on above:Performed By: #### 27621-4 #### PACHECO Ferraro ([id number]) [facility] ([facility]) [address] [place] [address] 86967Ytork type and Indirect antibody screen panel (Bld)on 42-60-2208ZBY group Nom (Bld)ONormalMetrohealth Main Campus Medical CenterComment on above:Performed By: #### 34632-0 #### PACHECO Ferraro ([id number]) [facility] ([facility]) [address] [place] [address] 10250Ilnse group antibody screen QlNegativeNoKindred Hospital LimaComment on above:Performed By: #### 73144-8 #### PACHECO Ferraro ([id number]) [facility] ([facility]) [address] [place] [address] 73842H Ag Ql (Bld)NegativeNoKindred Hospital LimaComment on above:Result Comment: 2nd ABO test required. Order and Collect VERABPerformed By: #### 98501-9 #### PACHECO Ferraro ([id number]) [facility] ([facility]) [address] [place] [address] 27236YAE panel Auto (Bld)on 36-34-1383Jjwuyaabgvs distribution width (RBC) [Ratio]14.4 %Fredyb41.5-14.5[facility] Medical CenterComment on above:Performed By: #### 70400-7 #### PACHECO Ferraro ([id number]) [facility] ([facility]) [address] [place] [address] 57272Qdcbcboose (Bld) [Volume fraction]42.8 %Fsgvar49.0-52.0 [facility] CenterComment on above:Performed By: #### 53388-5 #### PACHECO Ferraro (02374) [facility] ([facility]) [address] [place] [address] 09040Lqydotythf (Bld) [Mass/Vol]14.3 g/wTIorktr62.5-17.5UnBarney Children's Medical CenterComment on above:Performed By: #### 63542-7 #### PACHECO Ferraro (65766) [facility] ([facility]) [address] [place] [address] 54955KRK (RBC) [Entitic mass]29.3 aoPqtize41.0-34.0UnBarney Children's Medical CenterComment on above:Performed By: #### 41963-3 #### PACHECO Ferraro ([id number]) [facility] ([facility]) [address] [place] [address] 03255OTOL (RBC) [Mass/Vol]33.4 g/bKOomtvn21.0-36.0UnBarney Children's Medical CenterComment on above:Performed By: #### 76736-7 #### PACHECO Ferraro ([id number]) [facility] ([facility]) [address] [place] [address] 02193CPM (RBC) [Entitic vol]88 ySUwwacq06-023ClyyuxgrceBarney Children's Medical CenterComment on above:Performed By: #### 73225-4 #### PACHECO Ferraro ([id number]) [facility] ([facility]) [address] [place], [place] [address]Mqtklwujk RBC/100 WBC (Bld) [Ratio]0.0 /100 WBCsNormal0.0-0.0 [facility] Medical CenterComment on above:Performed By: #### 73273-4 #### PACHECO Ferraro (50979) [facility] ([facility]) [address] [place], [place] [address]Sstaakjru (Bld) [#/Vol]287 x10*3/qEShwltk495-803UzxgyescipBarney Children's Medical CenterComment on above:Performed By: #### 51944-7 #### PACHECO Ferraro ([id number]) [facility] ([facility]) [address] [place], [place] [address]CZN (Bld) [#/Vol]4.88 x10*6/uLNormal4.50-5.90UnBarney Children's Medical CenterComment on above:Performed By: #### 21703-8 #### PACHECO Ferraro ([id number]) [facility] ([facility]) [address] [place] [address] 03723LVC (Bld) [#/Vol]6.6 x10*3/uLNormal4.4-11.3UnBarney Children's Medical CenterComment on above:Performed By: #### 07395-7 #### PACHECO Ferraro ([id number]) [facility] ([facility]) [address] [place], [place] [address]UER 12-LEADon 94-59-0307AQV 12-LEADVentricular Rate 73 Atrial Rate 73 P-R Interval 144 QRS Duration 86 Q-T Interval 376 QTC Calculation(Bazett) 414 P [place] 2 R [place] -20 T [place] 15 QRS Count 12 Q Onset 213 P Onset 141 P Offset 186 T Offset 401 QTC Fredericia 401 Diagnosis Normal sinus rhythm Nonspecific T wave abnormality No previous ECGs available Confirmed by Antione Hong ([id number]) on 05/18/2023 4:34:09 PMNWoodwinds Health Campustaphylococcus aureus.methicillin resistant isolateon 05-17-2023 MRSA isol Org specific cx Ql (Nose)Test: Staphylococcus aureus/MRSA colonization, Culture Specimen Source: Anterior Nares Specimen Type: Swab Specimen Date: 05/17/2023 1:43 PM Result Date: 05/19/2023 8:32 AM Result Status: Final result Abnormal: Yes Resulting Lab: [facility] [address] [facility] [address] CULTURE Isolated: Methicillin Susceptible Staphylococcus aureus (MSSA) (Abnormal) AbnormalMetrohealth Main Campus Medical CenterComment on above:Performed By: #### 89793-2 #### PACHECO Ferraro ([id number]) [facility] ([facility]) [address] [place] [address] 21789OuM2k (Bld) [Mass fraction]on 25-37-9829Kkkhcvf glucose Estimated from glycated hemoglobin (Bld) [Mass/Vol]148 mg/dLNormalNot EstablishedMetrohealth Main Campus Medical CenterComment on above:Order Comment: Diagnosis of Diabetes-Adults Non-Diabetic: < or = 5.6% Increased risk for developing diabetes: 5.7-6.4% Diagnostic of diabetes: > or = 6.5% Monitoring of Diabetes Age (y)....................... Therapeutic Goal (%) Adults: >18.........................<7.0 Pediatrics: 13-18...................<7.5 Pediatrics: 7-12....................<8.0 Pediatrics: 0-6..................... 7.5-8.5 [employer] [employer]. Diabetes Care 33(S1)Mar 2009Performed By: #### 4548-4 #### PACHECO Ferraro ([id number]) [facility] ([facility]) [address] [place] [address] 49655Ligimsefoh A1c/Hemoglobin.totalon 17-63-7916OyE1t (Bld) [Mass fraction]6.8 %Pomerene HospitalComment on above:Order Comment: Diagnosis of Diabetes-Adults Non-Diabetic: < or = 5.6% Increased risk for developing diabetes: 5.7-6.4% Diagnostic of diabetes: > or = 6.5% Monitoring of Diabetes Age (y)....................... Therapeutic Goal (%) Adults: >18.........................<7.0 Pediatrics: 13-18...................<7.5 Pediatrics: 7-12....................<8.0 Pediatrics: 0-6..................... 7.5-8.5 [place] [employer]. Diabetes Care 33(S1)Mar 2009Performed By: #### 4548-4 #### PACHECO Ferraro ([id number]) [facility] ([facility]) [address] [place] [address] 77040ZA lumbar spine wo [facility] 28-25-8572DO lumbar spine wo [facility] Main [address] [address] MRI Report Signed Patient: Melvin Baer MR#: [id number] : 1960 Acct:[id number] Age/Sex: 62 / M ADM Date: 12/15/22 Loc: [facility] Room: Type: [facility] Attending Dr: Sully Barney NP Copies to: [...] Prakash Zavala M.D.12/15/2022 3:12 PM Dictation Location: [place] [address] Transcribed By: [facility] 12/15/22 1512 Dictated By: Prakash Zavala II, MD 12/15/22 1500 Signed By: 12/15/22 1512[facility] CenterXR hip RT min 2V(w/wo pelvis)*on 43-67-8024ZE hip RT min 2V(w/wo pelvis)*[facility] Main [place] [address] [place] [address] XRay Report Signed Patient: Melvin Baer MR#: [id number] : 1960 Acct:[id number] Age/Sex: 62 / M ADM Date: 10/16/22 Loc: XD Room: Type: [facility] Attending Dr: Abel Sandoval MD Copies to: [...] M.D.10/16/2022 2:39 PM Dictation Location: [facility]01 Transcribed By: [facility] 10/16/22 143 Dictated By: Raulito Abbasi DO 10/16/22 1437 Signed By: 10/16/22 1439[facility] CenterXR lumbar [facility] AP/LAT/FLX/EXTon [id number] lumbar spine AP/LAT/FLX/EXTUN[facility] Main [place] [address] [place] [address] XRay Report Signed Patient: Melvin Baer MR#: [id number] : 1960 Acct:[id number] Age/Sex: 62 / M ADM Date: 10/16/22 Loc: XD Room: Type: [facility] Attending Dr: Abel Sandoval MD Copies to: [...] West Jr., D.OAmy10/16/2022 2:44 PM Dictation Location: [facility]12 Transcribed By: [facility] 10/16/22 1444 Dictated By: Roberto West Jr, DO 10/16/22 1440 Signed By: 10/16/22 1444[facility] CenterCBC AUTO DIFFon 07-19-2022 BASO #0.1 103/ulNormal0.0-0.1[facility] JacksonComment on above:Performed By: #### CBC #### [facility] [address] [place] [address] Dr. Mariann OdomBasophils/100 WBC (Bld)0.9 %Normal0.2-2.0The [facility] Comment on above:Performed By: #### CBC #### [facility] [address] [place] [address] Dr. Mariann Tolbert #0.3 103/ulNormal0.0-0.7The [facility] HospitalComment on above: Performed By: #### CBC #### [facility] [address] [place] [address] Dr. Mariann Wyattosinophils/100 WBC (Bld)4.9 %Normal0.9-7.0The [facility] Comment on above:Performed By: #### CBC #### [facility] [address] [place] [address] Dr. Mariann Wyattrythrocyte distribution width (RBC) [Ratio]14.8 %Bfwzpc82.0-15.0 [facility] JacksonComment on above:Performed By: #### CBC #### [facility] [address] [place] [address] Dr. Mariann OdomHematocrit (Bld) [Volume fraction]41.5 %Critically low42.0-54.0 [facility] JacksonComment on above:Performed By: #### CBC #### [facility] [address] [place] [address] Dr. Mariann OdomHemoglobin (Bld) [Mass/Vol]13.3 g/dLCritically low14.0-18.0[facility] JacksonComment on above:Performed By: #### CBC #### [facility] [address] [place] [address] Dr. Mariann Guy #0.02 10e3/ulNormal0.00-0.03The [facility] HospitalComment on above:Performed By: #### CBC #### [facility] [address] [place] [address] Dr. Mariann Guy %0.4 %Normal0.0-0.5The [facility] HospitalComment on above: Performed By: #### CBC #### [facility] [address] [place] [address] Dr. Mariann Hernandez #1.8 103/ulNormal1.2-3.8The [facility] HospitalComment on above:Performed By: #### CBC #### [facility] [address] [place] [address] Dr. Mariann Younghocytes/100 WBC (Bld)33.1 %Esqbza08.5-60.0The [facility] HospitalComment on above:Performed By: #### CBC #### [facility] [address] [place] [address] Dr. Mariann Shin DIFF REQNONormalThe [facility] HospitalComment on above: Performed By: #### CBC #### [facility] [address] [place] [address] Dr. Mariann Dahl (RBC) [Entitic mass]28.1 odFecoel90.9-34.0The [facility] HospitalComment on above:Performed By: #### CBC #### [facility] [address] [place] [address] Dr. Mariann Navarro (RBC) [Mass/Vol]32.0 g/zKFocghx17.9-35.2The [facility] HospitalComment on above:Performed By: #### CBC #### [facility] [address] [place] [address] Dr. Mariann Chacon (RBC) [Entitic vol]87.7 wYYetuwy24.0-94.0The [facility] HospitalComment on above:Performed By: #### CBC #### [facility] [address] [place] [address] Dr. Mariann Zabala #0.6 103/ulNormal0.3-0.8The [facility] HospitalComment on above:Performed By: #### CBC #### [facility] [address] [place] [address] Dr. Mariann Scruggsocytes/100 WBC (Bld)11.7 %Normal1.7-12.0The [facility] Comment on above:Performed By: #### CBC #### [facility] [address] [place] [address] Dr. Mariann Faria #2.6 103/ulNormal1.4-6.5The [facility] HospitalComment on above:Performed By: #### CBC #### [facility] [address] [place] [address] Dr. Mariann Orrutrophils/100 WBC (Bld)49.0 %Bcokho34.0-75.0The [facility] HospitalComment on above:Performed By: #### CBC #### [facility] [address] [place] [address] Dr. Mariann Schraderlet mean volume (Bld) [Entitic vol]11.2 fLNormal9.5-13.5The [facility] HospitalComment on above:Performed By: #### CBC #### [facility] [address] [place] [address] Dr. Mariann HardwickT301 103/tmVeqywl161-567Sio [facility] HospitalComment on above: Performed By: #### CBC #### [facility] [address] [place] [address] Dr. Mariann OdomRBC4.73 106/ulNormal4.70-6.10The [facility] HospitalComment on above:Performed By: #### CBC #### [facility] [address] [place] [address] Dr. Mariann OdomWBC5.3 103/ulNormal4.0-11.0The [facility] HospitalComment on above: Performed By: #### CBC #### [facility] [address] [place] [address] Dr. Mariann Salazar 14(COMP METB)on 42-74-8031Qgzxwef [Mass/Vol]4.0 g/dLNormal 3.4-5.0The [facility] HospitalComment on above:Performed By: #### CMP #### [facility] [address] [place] [address] Dr. Mariann OdomAlbumin/Globulin [Mass ratio]1.0 {ratio}NormalThe [facility] HospitalComment on above:Performed By: #### CMP #### [facility] [address] [place] [address] Dr. Mariann BirdP [Catalytic activity/Vol]99 U/UOgyizs88-512Ivk [facility] HospitalComment on above:Performed By: #### CMP #### [facility] [address] [place] [address] Dr. Mariann BirdT [Catalytic activity/Vol]36 U/VUyasfb88-36Ago [facility] HospitalComment on above:Performed By: #### CMP #### [facility] [address] [place] [address] Dr. Mariann Valentineon gap [Moles/Vol]10.6 mmol/LNormalThe [facility] Comment on above:Performed By: #### CMP #### [facility] [address] [place] [address] Dr. Mariann OdomAST [Catalytic activity/Vol]21 U/JQxtcny22-42Ftp [facility] HospitalComment on above:Performed By: #### CMP #### [facility] [address] [place] [address] Dr. Mariann OdomBilirubin [Mass/Vol]0.2 mg/dLNormal0.2-1.0The [facility] Comment on above:Performed By: #### CMP #### [facility] [address] [place] [address] Dr. Mariann OdomCalcium [Mass/Vol]9.6 mg/dLNormal8.5-10.1The [facility] Comment on above:Performed By: #### CMP #### [facility] [address] [place] [address] Dr. Mariann OdomChloride [Moles/Vol]102 mmol/BBtzbue69-238Ncq [facility] Comment on above:Performed By: #### CMP #### [facility] [address] [place] [address] Dr. Yilan ChangCO2 [Moles/Vol]30.5 mmol/YRiwjlh12.0-32.0The [facility] Comment on above:Performed By: #### CMP #### [facility] [address] [place] [address] Dr. Mariann OdomCreatinine [Mass/Vol]0.93 mg/dLNormal0.70-1.30The [facility] HospitalComment on above:Performed By: #### CMP #### [facility] [address] [place] [address] Dr. Mariann WyattGFR-AF KUWAITI>60Normal>=60The [facility] HospitalComment on above:Performed By: #### CMP #### [facility] [address] [place] [address] Dr. Mariann WyattGFR-NON AF KUWAITI>60Normal>=60The [facility] HospitalComment on above:Performed By: #### CMP #### [facility] [address] [place] [address] Dr. Mariann OdomGlobulin (S) [Mass/Vol]3.9 g/dLNormalThe [facility] HospitalComment on above:Performed By: #### CMP #### [facility] [address] [place] [address] Dr. Mariann OdomGlucose [Mass/Vol]126 mg/dLCritically qejz77-216WajHolzer Medical Center – JacksonComment on above:Performed By: #### CMP #### [facility] [address] [place] [address] Dr. Mariann OdomPotassium [Moles/Vol]4.1 mmol/LNormal3.5-5.1The [facility] Comment on above:Performed By: #### CMP #### [facility] [address] [place] [address] Dr. Mariann OdomProtein [Mass/Vol]7.9 g/dLNormal6.4-8.2The [facility] Comment on above:Performed By: #### CMP #### [facility] [address] [place] [address] Dr. Mariann OdomSodium [Moles/Vol]139 mmol/ECdjadz050-540Ntq [facility] Comment on above:Performed By: #### CMP #### [facility] [address] [place] [address] Dr. Mariann Garibay nitrogen [Mass/Vol]16.0 mg/dLNormal7.0-18.0The [facility] HospitalComment on above:Performed By: #### CMP #### [facility] [address] [place] [address] Dr. Mariann Garibay nitrogen/Creatinine [Mass ratio]17.2 mg/mgNormalThe [facility] HospitalComment on above:Performed By: #### CMP #### [facility] [address] [place] [address] Dr. Mariann Douglas RATE WESTERGRENon 94-14-0778KIB RATE13 mm/hrNormal<=20The [facility] HospitalComment on above:Performed By: #### SEDR #### [facility] [address] [place] [address] Dr. Mariann Alaniz AUTO DIFFon [id number] #0.1 103/ulNormal0.0-0.1The [facility] HospitalComment on above:Performed By: #### CBC #### [facility] [address] [place] [address] Dr. Mariann OdomBasophils/100 WBC (Bld)0.9 %Normal0.2-2.0[facility] Comment on above:Performed By: #### CBC #### [facility] [address] [place] [address] Dr. Mariann Tolbert #0.2 103/ulNormal0.0-0.7The [facility] HospitalComment on above: Performed By: #### CBC #### [facility] [address] [place] [address] Dr. Mariann Wyattosinophils/100 WBC (Bld)4.2 %Normal0.9-7.0[facility] Comment on above:Performed By: #### CBC #### [facility] [address] [place] [address] Dr. Yilan ChangErythrocyte distribution width (RBC) [Ratio]14.3 %Xawpki86.0-15.0 The [facility] HospitalComment on above:Performed By: #### CBC #### [facility] [address] [place] [address] Dr. Mariann OdomHematocrit (Bld) [Volume fraction]41.7 %Critically low42.0-54.0 The [facility] HospitalComment on above:Performed By: #### CBC #### [facility] [address] [place] [address] Dr. Mariann OdomHemoglobin (Bld) [Mass/Vol]13.6 g/dLCritically low14.0-18.0The [facility] on above:Performed By: #### CBC #### [facility] [address] [place] [address] Dr. Mariann Guy #0.01 10e3/ulNormal0.00-0.03The [facility] HospitalComveter[facility] on above:Performed By: #### CBC #### [facility] [address] [place] [address] Dr. Mariann Guy %0.2 %Normal0.0-0.5The [facility] HospitalComv[facility] on above: Performed By: #### CBC #### [facility] [address] [place] [address] Dr. Mariann YoungH #1.6 103/ulNormal1.2-3.8The [facility] HospitalComv[facility] on above:Performed By: #### CBC #### [facility] [address] [place] [address] Dr. Mariann Peñalozamphocytes/100 WBC (Bld)28.8 %Qxcyhn61.5-60.0The [facility] on above:Performed By: #### CBC #### [facility] [address] [place] [address] Dr. Mariann DiazUAL DIFF REQNONormalThe [facility] HospitalComment on above: Performed By: #### CBC #### [facility] [address] [place] [address] Dr. Mariann Navarro (RBC) [Entitic mass]27.7 ovQrycmx60.9-34.0The [facility] HospitalComment on above:Performed By: #### CBC #### [facility] [address] [place] [address] Dr. Mariann Navarro (RBC) [Mass/Vol]32.6 g/fHHzbsfy52.9-35.2The [facility] HospitalComment on above:Performed By: #### CBC #### [facility] [address] [place] [address] Dr. Mariann Navarro (RBC) [Entitic vol]84.9 xUDpdneh96.0-94.0The [facility] HospitalComment on above:Performed By: #### CBC #### [facility] [address] [place] [address] Dr. Mariann Zabala #0.6 103/ulNormal0.3-0.8The [facility] HospitalComment on above:Performed By: #### CBC #### [facility] [address] [place] [address] Dr. Mariann Scruggsocytes/100 WBC (Bld)10.4 %Normal1.7-12.0The [facility] Comment on above:Performed By: #### CBC #### [facility] [address] [place] [address] Dr. Mariann Faria #3.2 103/ulNormal1.4-6.5The [facility] HospitalComment on above:Performed By: #### CBC #### [facility] [address] [place] [address] Dr. Mariann Orrutrophils/100 WBC (Bld)55.5 %Utdgvr53.0-75.0The [facility] HospitalComment on above:Performed By: #### CBC #### [facility] [address] [place] [address] Dr. Mariann Schraderlet mean volume (Bld) [Entitic vol]10.8 fLNormal9.5-13.5The [facility] HospitalComment on above:Performed By: #### CBC #### [facility] [address] [address] [address] Mariann OdomPLT269 103/clSvjxqw216-795Kpv [facility] HospitalComment on above: Performed By: #### CBC #### [facility] [address] [place] [address] Dr. Mariann OdomRBC4.91 106/ulNormal4.70-6.10The [facility] HospitalComment on above:Performed By: #### CBC #### [facility] [address] [place] [address] Dr. Mariann OdomWBC5.7 103/ulNormal4.0-11.0The [facility]ment on above: Performed By: #### CBC #### [facility] [address] [place] [address] Dr. Mariann ThapaF 14(COMP METB)on 09-71-4783Foqmcrn [Mass/Vol]3.6 g/dLNormal 3.4-5.0The [facility] HospitalComment on above:Performed By: #### CMP #### [facility] [address] [place] [address] Dr. Mariann OdomAlbumin/Globulin [Mass ratio]1.1 {ratio}NormalThe [facility] on above:Performed By: #### CMP #### [facility] [address] [place] [address] Dr. Mariann Gomez [Catalytic activity/Vol]95 U/JAotmkq53-813Xpa [facility] on above:Performed By: #### CMP #### [facility] [address] [place] [address] Dr. Mariann Vela [Catalytic activity/Vol]39 U/KTatxvf35-29Rqo [facility] Hospitalment on above:Performed By: #### CMP #### [facility] [address] [place] [address] Dr. Mariann Kasper gap [Moles/Vol]11.1 mmol/LNormalThe [facility] on above:Performed By: #### CMP #### [facility] [address] [address] [address] Mariann OdomAST [Catalytic activity/Vol]25 U/YMwcmmz13-74Xlq [facility] HospitalComment on above:Performed By: #### CMP #### [facility] [address] [address] [address] Mariann OdomBilirubin [Mass/Vol]0.3 mg/dLNormal0.2-1.0The [facility] Comment on above:Performed By: #### CMP #### [facility] [address] [address] [address] Mariann OdomCalcium [Mass/Vol]9.0 mg/dLNormal8.5-10.1The [facility] Comment on above:Performed By: #### CMP #### [facility] [address] [address] [address] Mariann OdomChloride [Moles/Vol]104 mmol/DOykagm55-897Ksn [facility] Comment on above:Performed By: #### CMP #### [facility] [address] [address] [address] Mariann OdomCO2 [Moles/Vol]27.8 mmol/SHjvgsu99.0-32.0The [facility] Comment on above:Performed By: #### CMP #### [facility] [address] [address] [address] Mariann OdomCreatinine [Mass/Vol]0.81 mg/dLNormal0.70-1.30The [facility] HospitalComment on above:Performed By: #### CMP #### [facility] [address] [place] [address] Dr. Mariann WyattGFR-AF KUWAITI>60Normal>=60The [facility] HospitalComment on above:Performed By: #### CMP #### [facility] [address] [address] [address] Mariann WyattGFR-NON AF KU[place]I>60Normal>=60The [facility] HospitalComment on above:Performed By: #### CMP #### [facility] [address] [address] [address] Mariann OdomGlobulin (S) [Mass/Vol]3.4 g/dLNormMercy Health Urbana HospitalComment on above:Performed By: #### CMP #### [facility] [address] [address] [address] Mariann OdomGlucose [Mass/Vol]189 mg/dLCritically hvui43-981Etw [facility] HospitalComment on above:Performed By: #### CMP #### [facility] [address] [address] [address] Mariann OdomPotassium [Moles/Vol]3.9 mmol/LNormal3.5-5.1The [facility] Comment on above:Performed By: #### CMP #### [facility] [address] [address] [address] Mariann OdomProtein [Mass/Vol]7.0 g/dLNormal6.4-8.2The [facility] Comment on above:Performed By: #### CMP #### [facility] [address] [place] [address] Dr. Mariann OdomSodium [Moles/Vol]139 mmol/WBxwndj324-189Goq [facility] Comment on above:Performed By: #### CMP #### [facility] [address] [place] [address] Dr. Mariann OdomUrea nitrogen [Mass/Vol]14.0 mg/dLNormal7.0-18.0The [facility] HospitalComment on above:Performed By: #### CMP #### [facility] [address] [place] [address] Dr. Mariann Garibay nitrogen/Creatinine [Mass ratio]17.3 mg/mgNormalThGood Samaritan HospitalComment on above:Performed By: #### CMP #### [facility] [address] [address] [address] Mariann OdomSED RATE WESTERGRENon 52-63-1344KWP RATE24 mm/hrCritically high <=20The [facility] HospitalComment on above:Performed By: #### CMP #### [facility] [address] [place] [address] Dr. Mariann OdomGLYCOHEMOGLOBIN A1Con [id number] RECOMMENDATIONSEE BELOWNormal The [facility] HospitalComment on above:Result Comment: ADA RECOMMENDED LIMIT 4.0 - 6.0 ADA THERAPEUTIC TARGET < 7.0 ACTION SUGGESTED > 7.0Performed By: #### A1C #### [facility] [address] [place] [address] Dr. Mariann OdomGlucose [Mass/Vol]263 mg/dLNormalThe [facility] HospitalComment on above:Performed By: #### A1C #### [facility] [address] [place] [address] Dr. Mariann OdomHbA1c (Bld) [Mass fraction]10.8 %Critically high4.5-6.2The [facility] HospitalComment on above:Performed By: #### A1C #### [facility] [address] [place] [address] Dr. Mariann OdomCBC AUTO DIFFon [id number] #0.0 103/ulNormal0.0-0.1The [facility] HospitalComment on above:Performed By: #### CMP #### [facility] [address] [place] [address] Dr. Mariann OdomBasophils/100 WBC (Bld)0.6 %Normal0.2-2.0The [facility] Comment on above:Performed By: #### CMP #### [facility] [address] [place] [address] Dr. Mariann Tolbert #0.4 103/ulNormal0.0-0.7The [facility] HospitalComment on above: Performed By: #### CMP #### [facility] [address] [place] [address] Dr. Mariann Wyattosinophils/100 WBC (Bld)5.0 %Normal0.9-7.0The [facility] Comment on above:Performed By: #### CMP #### [facility] [address] [place] [address] Dr. Mariann Wyattrythrocyte distribution width (RBC) [Ratio]13.5 %Inltvf55.0-15.0 The [facility] HospitalComment on above:Performed By: #### CMP #### [facility] [address] [place] [address] Dr. Mariann OdomHematocrit (Bld) [Volume fraction]42.2 %Vmeyaq22.0-54.0The [facility] HospitalComment on above:Performed By: #### CMP #### [facility] [address] [place] [address] Dr. Mariann OdomHemoglobin (Bld) [Mass/Vol]13.9 g/dLCritically low14.0-18.0The [facility] HospitalComment on above:Performed By: #### CMP #### [facility] [address] [place] [address] Dr. Mariann OdomIG #0.02 10e3/ulNormal0.00-0.03The [facility] HospitalComment on above:Performed By: #### CMP #### [facility] [address] [place] [address] Dr. Mariann OdomIG %0.3 %Normal0.0-0.5The [facility] HospitalComment on above: Performed By: #### CMP #### [facility] [address] [place] [address] Dr. Mariann Hernandez #1.8 103/ulNormal1.2-3.8The [facility] HospitalComment on above:Performed By: #### CMP #### [facility] [address] [place] [address] Dr. Mariann Peñalozamphocytes/100 WBC (Bld)24.7 %Oagytv91.5-60.0The [facility] HospitalComment on above:Performed By: #### CMP #### [facility] [address] [place] [address] Dr. Mairann DiazUAL DIFF REQNONormalThe [facility] HospitalComment on above: Performed By: #### CMP #### [facility] [address] [place] [address] Dr. Mariann Dahl (RBC) [Entitic mass]28.3 msQqpcsx34.9-34.0The [facility] HospitalComment on above:Performed By: #### CMP #### [facility] [address] [place] [address] Dr. Mariann Navarro (RBC) [Mass/Vol]32.9 g/qTGaosar56.9-35.2The [facility] HospitalComment on above:Performed By: #### CMP #### [facility] [address] [place] [address] Dr. Mariann Navarro (RBC) [Entitic vol]85.9 vILqvprx99.0-94.0The [facility] HospitalComment on above:Performed By: #### CMP #### [facility] [address] [place] [address] Dr. Mariann Zabala #0.6 103/ulNormal0.3-0.8The [facility] HospitalComment on above:Performed By: #### CMP #### [facility] [address] [place] [address] Dr. Mariann Scruggsocytes/100 WBC (Bld)8.8 %Normal1.7-12.0The [facility] Comment on above:Performed By: #### CMP #### [facility] [address] [place] [address] Dr. Mariann Faria #4.4 103/ulNormal1.4-6.5The [facility] HospitalComment on above:Performed By: #### CMP #### [facility] [address] [place] [address] Dr. Mariann Orrutrophils/100 WBC (Bld)60.6 %Gnhuce58.0-75.0The [facility] HospitalComment on above:Performed By: #### CMP #### [facility] [address] [place] [address] Dr. Mariann Schraderlet mean volume (Bld) [Entitic vol]11.2 fLNormal9.5-13.5The [facility] HospitalComment on above:Performed By: #### CMP #### [facility] [address] [place] [address] Dr. Mariann OdomPLT268 103/goVujzxu685-719Mee [facility] HospitalComment on above: Performed By: #### CMP #### [facility] [address] [place] [address] Dr. Mariann OdomRBC4.91 106/ulNormal4.70-6.10The [facility] HospitalComment on above:Performed By: #### CMP #### [facility] [address] [place] [address] Dr. Mariann OdomWBC7.2 103/ulNormal4.0-11.0The [facility] HospitalComment on above: Performed By: #### CMP #### [facility] [address] [place] [address] Dr. Mariann Salazar 14(COMP METB)on 38-82-0742Imlnybz [Mass/Vol]3.8 g/dLNormal 3.4-5.0The [facility] HospitalComment on above:Performed By: #### CMP #### [facility] [address] [place] [address] Dr. Mariann OdomAlbumin/Globulin [Mass ratio]1.0 {ratio}NormalThe [facility] HospitalComment on above:Performed By: #### CMP #### [facility] [address] [place] [address] Dr. Mariann Gomez [Catalytic activity/Vol]95 U/SMpjxip38-969Sjq [facility] HospitalComment on above:Performed By: #### CMP #### [facility] [address] [place] [address] Dr. Mariann Vela [Catalytic activity/Vol]66 U/LCritically lwce46-65Qhe [facility] HospitalComment on above:Performed By: #### CMP #### [facility] [address] [place] [address] Dr. Mariann Kasper gap [Moles/Vol]12.7 mmol/LNormalThe [facility] on above:Performed By: #### CMP #### [facility] [address] [place] [address] Dr. Mariann OdomAST [Catalytic activity/Vol]42 U/LCritically bics98-41Ebo [facility] HospitalComment on above:Performed By: #### CMP #### [facility] [address] [address] [address] Mariann OdomBilirubin [Mass/Vol]0.4 mg/dLNormal0.2-1.0The [facility] Comment on above:Performed By: #### CMP #### [facility] [address] [address] [address] Mariann OdomCalcium [Mass/Vol]9.0 mg/dLNormal8.5-10.1The [facility] Comment on above:Performed By: #### CMP #### [facility] [address] [place] [address] Dr. Mariann OdomChloride [Moles/Vol]101 mmol/WBmchdh14-001Iji [facility] Comment on above:Performed By: #### CMP #### [facility] [address] [place] [address] Dr. Mariann OdomCO2 [Moles/Vol]27.0 mmol/NQrmkhz03.0-32.0The [facility] Comment on above:Performed By: #### CMP #### [facility] [address] [place] [address] Dr. Mariann OdomCreatinine [Mass/Vol]1.22 mg/dLNormal0.70-1.30The [facility] HospitalComment on above:Performed By: #### CMP #### [facility] [address] [place] [address] Dr. Mariann WyattGFR-AF KUWAITI>60Normal>=60The [facility] HospitalComment on above:Performed By: #### CMP #### [facility] [address] [place] [address] Dr. Mariann WyattGFR-NON AF KUWAITI>60Normal>=60The [facility] HospitalComment on above:Performed By: #### CMP #### [facility] [address] [place] [address] Dr. Mariann OdomGlobulin (S) [Mass/Vol]3.7 g/dLNormalThe [facility] HospitalComment on above:Performed By: #### CMP #### [facility] [address] [place] [address] Dr. Mariann OdomGlucose [Mass/Vol]288 mg/dLCritically xsrq29-266Fjs [facility] HospitalComment on above:Performed By: #### CMP #### [facility] [address] [place] [address] Dr. Mariann OdomPotassium [Moles/Vol]3.7 mmol/LNormal3.5-5.1The [facility] Comment on above:Performed By: #### CMP #### [facility] [address] [place] [address] Dr. Mariann OdomProtein [Mass/Vol]7.5 g/dLNormal6.4-8.2The [facility] Comment on above:Performed By: #### CMP #### [facility] [address] [place] [address] Dr. Mariann OdomSodium [Moles/Vol]137 mmol/ADkgezr710-121Xqf [facility] Comment on above:Performed By: #### CMP #### [facility] [address] [place] [address] Dr. Mariann OdomUrea nitrogen [Mass/Vol]13.0 mg/dLNormal7.0-18.0The [facility] HospitalComment on above:Performed By: #### CMP #### [facility] [address] [place] [address] Dr. Mariann OdomUrea nitrogen/Creatinine [Mass ratio]10.7 mg/mgNoalThe [facility] HospitalComment on above:Performed By: #### CMP #### [facility] [address] [place] [address] Dr. Mariann Douglas RATE WESTERGRENon 02-24-1482PJG RATE26 mm/hrCritically high <=20The [facility] HospitalComment on above:Performed By: #### CMP #### [facility] [address] [place] [address] Dr. Mariann OdomCBC AUTO DIFFon 19-26-5983HWPY #0.0 103/ulNormal0.0-0.1The [facility] HospitalComment on above:Performed By: #### CMP #### [facility] [address] [address] [address] Mariann OdomBasophils/100 WBC (Bld)0.8 %Normal0.2-2.0The [facility] Comment on above:Performed By: #### CMP #### [facility] [address] [address] [address] Mariann Tolbert #0.2 103/ulNormal0.0-0.7The [facility] HospitalComment on above: Performed By: #### CMP #### [facility] [address] [place] [address] Dr. Mariann Wyattosinophils/100 WBC (Bld)4.5 %Normal0.9-7.0The [facility] Comment on above:Performed By: #### CMP #### [facility] [address] [place] [address] Dr. Mariann Wyattrythrocyte distribution width (RBC) [Ratio]15.0 %Fuptpl99.0-15.0 The [facility] HospitalComment on above:Performed By: #### CMP #### [facility] [address] [place] [address] Dr. Mariann OdomHematocrit (Bld) [Volume fraction]40.6 %Critically low42.0-54.0 The [facility] HospitalComment on above:Performed By: #### CMP #### [facility] [address] [place] [address] Dr. Mariann OdomHemoglobin (Bld) [Mass/Vol]12.8 g/dLCritically low14.0-18.0The [facility] HospitalComment on above:Performed By: #### CMP #### [facility] [address] [place] [address] Dr. Mariann Guy #0.01 10e3/ulNormal0.00-0.03The [facility] HospitalComment on above:Performed By: #### CMP #### [facility] [address] [address] [address] Mariann Guy %0.2 %Normal0.0-0.5The [facility] HospitalComveterans affairs [facility] on above: Performed By: #### CMP #### [facility] [address] [address] [address] Mariann PeñalozaMelissa #1.5 103/ulNormal1.2-3.8The [facility] HospitalComment on above:Performed By: #### CMP #### [facility] [address] [place] [address] Dr. Mariann Peñalozahocytes/100 WBC (Bld)31.0 %Yokpke36.5-60.0The [facility] HospitalComveterans [facility] on above:Performed By: #### CMP #### [facility] [address] [place] [address] Dr. Mariann DiazUAL DIFF REQNONormalThe [facility] HospitalComment on above: Performed By: #### CMP #### [facility] [address] [place] [address] Dr. Mariann Navarro (RBC) [Entitic mass]28.3 doOwauch45.9-34.0The [facility] on above:Performed By: #### CMP #### [facility] [address] [place] [address] Dr. Mariann Navarro (RBC) [Mass/Vol]31.5 g/tEEjzgiz62.9-35.2The [facility] on above:Performed By: #### CMP #### [facility] [address] [place] [address] Dr. Mariann Navarro (RBC) [Entitic vol]89.6 gKZtllgb35.0-94.0The [facility] on above:Performed By: #### CMP #### [facility] [address] [place] [address] Dr. Mariann Zabala #0.6 103/ulNormal0.3-0.8The [facility] HospitalComment on above:Performed By: #### CMP #### [facility] [address] [place] [address] Dr. Mariann Scruggsocytes/100 WBC (Bld)11.4 %Normal1.7-12.0The [facility] Comment on above:Performed By: #### CMP #### [facility] [address] [place] [address] Dr. Mariann OrrUT #2.6 103/ulNormal1.4-6.5The [facility] HospitalComment on above:Performed By: #### CMP #### [facility] [address] [place] [address] Dr. Mariann Orrutrophils/100 WBC (Bld)52.1 %Djvjau35.0-75.0The [facility] HospitalComment on above:Performed By: #### CMP #### [facility] [address] [place] [address] Dr. Mariann OdomPlatelet mean volume (Bld) [Entitic vol]11.9 fLNormal9.5-13.5The [facility] HospitalComment on above:Performed By: #### CMP #### [facility] [address] [place] [address] Dr. Mariann OdomPLT288 103/ynTxdkrx316-872Nbo [facility] HospitalComment on above: Performed By: #### CMP #### [facility] [address] [place] [address] Dr. Mariann OdomRBC4.53 106/ulCritically low4.70-6.10The [facility] HospitalComment on above:Performed By: #### CMP #### [facility] [address] [place] [address] Dr. Mariann OdomWBC4.9 103/ulNormal4.0-11.0The [facility] HospitalComment on above: Performed By: #### CMP #### [facility] [address] [place] [address] Dr. Mariann OdomGLYCOHEMOGLOBIN A1Con 05-92-5599ZIO RECOMMENDATIONSEE BELOWNormal The [facility] HospitalComment on above:Result Comment: ADA RECOMMENDED LIMIT 4.0 - 6.0 ADA THERAPEUTIC TARGET < 7.0 ACTION SUGGESTED > 7.0Performed By: #### A1C #### [facility] [address] [place] [address] Dr. Mariann OdomGlucose [Mass/Vol]154 mg/dLNoCorey HospitalComment on above:Performed By: #### A1C #### [facility] [address] [place] [address] Dr. Mariann OdomHbA1c (Bld) [Mass fraction]7.0 %Critically high4.5-6.2The [facility] HospitalComment on above:Performed By: #### A1C #### [facility] [address] [place] [address] Dr. Mariann OdomLIPID PROFILEon 44-40-4675CTTX-HDL RATIO NORMSEE [facility] HospitalComment on above:Result Comment: 3.3 - 4.4 LOW RISK 4.4 - 7.1 AVERAGE RISK 7.1 - 11.0 MODERATE RISK >11.0 HIGH RISKPerformed By: #### CMP #### [facility] [address] [place] [address] Dr. Mariann Fongesterol [Mass/Vol]114 mg/dLNormal<=200The [facility] Comment on above:Performed By: #### CMP #### [facility] [address] [place] [address] Dr. Mariann OdomCholesterol in HDL [Mass/Vol]50 mg/wAMpmykg69-66Pnt [facility] HospitalComment on above:Performed By: #### CMP #### [facility] [address] [place] [address] Dr. Mariann OdomCholesterol in LDL [Mass/Vol]52.4 mg/dLOhioHealth Nelsonville Health CenterComment on above:Performed By: #### CMP #### [facility] [address] [place] [address] Dr. Mariann Fongesterdoug.total/Cholesterol in HDL [Mass ratio]2.3 {ratio} NormalThe [facility] HospitalComment on above:Performed By: #### CMP #### [facility] [address] [place] [address] Dr. Mariann Yanes NORMAL> or = 60 mg/dl - LOW CARDIOVASCULAR RISK <40 mg/dl - HIGH CARDIOVASCULAR RISKOhioHealth Nelsonville Health CenterComment on above:Performed By: #### CMP #### [facility] [address] [place] [address] Dr. Mariann Baer CALC NORMALSEE BELOWNoCorey HospitalComment on above:Result Comment: <100 mg/dl OPTIMAL 100 - 129 mg/dl NEAR OR ABOVE OPTIMAL 130 - 159 mg/dl BORDERLINE HIGH 160 - 189 mg/dl HIGH >190 mg/dl VERY HIGH Performed By: #### CMP #### [facility] [address] [place] [address] Dr. Mariann OdomTriglyceride [Mass/Vol]58 mg/dLNormal<=150The [facility] Comment on above:Performed By: #### CMP #### [facility] [address] [place] [address] Dr. Mariann Craig CALC11.6 mg/dLNoCorey HospitalComment on above: Performed By: #### CMP #### [facility] [address] [place] [address] Dr. Mariann Carrington PROFILEon 78-17-3703Fnhzrlq [Mass/Vol]4.0 g/dLNormal3.4-5.0 The [facility] HospitalComment on above:Performed By: #### CMP #### [facility] [address] [place] [address] Dr. Mariann OdomAlbumin/Globulin [Mass ratio]1.1 {ratio}NormalThe [facility] HospitalComment on above:Performed By: #### CMP #### [facility] [address] [place] [address] Dr. Mariann Gomez [Catalytic activity/Vol]72 U/UZhjrhl25-564Hmr [facility] HospitalComment on above:Performed By: #### CMP #### [facility] [address] [place] [address] Dr. Yilan ChangALT [Catalytic activity/Vol]43 U/QYraijx00-82Uab [facility] HospitalComment on above:Performed By: #### CMP #### [facility] [address] [place] [address] Dr. Mariann OdomAST [Catalytic activity/Vol]28 U/UAxytnv50-11Xyk [facility] HospitalComment on above:Performed By: #### CMP #### [facility] [address] [place] [address] Dr. Mariann RubinI, CONJUGATED0.1 mg/dLNormal0.0-0.2[facility] Comment on above:Performed By: #### CMP #### [facility] [address] [place] [address] Dr. Mariann Rubinirubin [Mass/Vol]0.4 mg/dLNormal0.2-1.0The [facility] Comment on above:Performed By: #### CMP #### [facility] [address] [place] [address] Dr. Mariann OdomGlobulin (S) [Mass/Vol]3.5 g/dLNormalThe [facility] HospitalComment on above:Performed By: #### CMP #### [facility] [address] [place] [address] Dr. Mariann OdomProtein [Mass/Vol]7.5 g/dLNormal6.4-8.2[facility] Comment on above:Performed By: #### CMP #### [facility] [address] [place] [address] Dr. Mariann OdomMICROALBUMIN, RAND URon 39-62-8504mMSL5.5 mg/LNormal<=30.0The [facility] HospitalComment on above:Performed By: #### MALBR #### [facility] [address] [place] [address] Dr. Mariann OdomPROF CHEM 8 (BAS METB)on 49-97-0924Qvjnw gap [Moles/Vol]11.3 mmol/LNormalThe [facility] HospitalComment on above:Performed By: #### CMP #### [facility] [address] [place] [address] Dr. Mariann OdomCalcium [Mass/Vol]9.1 mg/dLNormal8.5-10.1The [facility] Comment on above:Performed By: #### CMP #### [facility] [address] [address] [address] Mariann OdomChloride [Moles/Vol]106 mmol/UMvaojh24-554VhrHolzer Medical Center – [place] Comment on above:Performed By: #### CMP #### [facility] [address] [address] [address] Mariann OdomCO2 [Moles/Vol]29.0 mmol/RRurhqz84.0-32.0The [facility] Comment on above:Performed By: #### CMP #### [facility] [address] [place] [address] Dr. Mariann OdomCreatinine [Mass/Vol]0.93 mg/dLNormal0.70-1.30The [facility] HospitalComment on above:Performed By: #### CMP #### [facility] [address] [place] [address] Dr. Waite ChangEGFR-AF KUWAITI>60Normal>=60The [facility] HospitalComment on above:Performed By: #### CMP #### [facility] [address] [place] [address] Dr. Mariann WyattGFR-NON AF KU[place]I>60Normal>=60The [facility] HospitalComment on above:Performed By: #### CMP #### [facility] [address] [place] [address] Dr. Mariann OdomGlucose [Mass/Vol]99 mg/sOTkkhlk76-671Gnq [facility] Comment on above:Performed By: #### CMP #### [facility] [address] [place] [address] Dr. Mariann OdomPotassium [Moles/Vol]4.3 mmol/LNormal3.5-5.1The [facility] Comment on above:Performed By: #### CMP #### [facility] [address] [place] [address] Dr. Mariann OdomSodium [Moles/Vol]142 mmol/MWgymmj741-330Qls [facility] Comment on above:Performed By: #### CMP #### [facility] [address] [place] [address] Dr. Mariann Garibay nitrogen [Mass/Vol]11.0 mg/dLNormal7.0-18.0The [facility] HospitalComment on above:Performed By: #### CMP #### [facility] [address] [place] [address] Dr. Mariann Garibay nitrogen/Creatinine [Mass ratio]11.8 mg/mgNormalThe [facility] HospitalComment on above:Performed By: #### CMP #### [facility] [address] [place] [address] Dr. Mariann Salomon 54-44-5030GAQ8.183 uIU/mLNormal0.358-3.740[facility] JacksonComment on above:Performed By: #### CMP #### [facility] [address] [place] [address] Dr. Mariann Alaniz AUTO DIFFon 10-73-8023WMZP #0.1 103/ulNormal0.0-0.1The [facility] HospitalComment on above:Performed By: #### CBC #### [facility] [address] [place] [address] Dr. Mariann OdomBasophils/100 WBC (Bld)1.0 %Normal0.2-2.0[facility] Comment on above:Performed By: #### CBC #### [facility] [address] [place] [address] Dr. Mariann Tolbert #0.2 103/ulNormal0.0-0.7The [facility] HospitalComment on above: Performed By: #### CBC #### [facility] [address] [place] [address] Dr. Mariann Wyattosinophils/100 WBC (Bld)4.4 %Normal0.9-7.0[facility] Comment on above:Performed By: #### CBC #### [facility] [address] [place] [address] Dr. Mariann Wyattrythrocyte distribution width (RBC) [Ratio]14.8 %Nzvjmu51.0-15.0 The [facility] HospitalComveterans affairs [facility] on above:Performed By: #### CBC #### [facility] [address] [place] [address] Dr. Mariann OdomHematocrit (Bld) [Volume fraction]41.1 %Critically low42.0-54.0 The [facility] HospitalComment on above:Performed By: #### CBC #### [facility] [address] [place] [address] Dr. Mariann OdomHemoglobin (Bld) [Mass/Vol]13.1 g/dLCritically low14.0-18.0[facility] on above:Performed By: #### CBC #### [facility] [address] [place] [address] Dr. Mariann Guy #0.01 10e3/ulNormal0.00-0.03The [facility] on above:Performed By: #### CBC #### [facility] [address] [place] [address] Dr. Mariann Guy %0.2 %Normal0.0-0.5The [facility] on above: Performed By: #### CBC #### [facility] [address] [place] [address] Dr. Mariann YoungH #1.6 103/ulNormal1.2-3.8The [facility] HospitalComment on above:Performed By: #### CBC #### [facility] [address] [place] [address] Dr. Mariann Peñalozamphocytes/100 WBC (Bld)30.9 %Hbjgxc78.5-60.0The [facility] on above:Performed By: #### CBC #### [facility] [address] [place] [address] Dr. Mariann DiazUAL DIFF REQNONormalThe [facility] HospitalComment on above: Performed By: #### CBC #### [facility] [address] [address] [address] Mariann Navarro (RBC) [Entitic mass]28.4 ygPseeat66.9-34.0The [facility] HospitalComment on above:Performed By: #### CBC #### [facility] [address] [place] [address] Dr. Mariann Navarro (RBC) [Mass/Vol]31.9 g/tMMurusd77.9-35.2The [facility] HospitalComment on above:Performed By: #### CBC #### [facility] [address] [place] [address] Dr. Mariann Navarro (RBC) [Entitic vol]89.2 nQZxrrnk18.0-94.0The [facility] HospitalComment on above:Performed By: #### CBC #### [facility] [address] [place] [address] Dr. Mariann Zabala #0.5 103/ulNormal0.3-0.8The [facility] HospitalComment on above:Performed By: #### CBC #### [facility] [address] [place] [address] Dr. Mariann Scruggsocytes/100 WBC (Bld)9.4 %Normal1.7-12.0The [facility] Comment on above:Performed By: #### CBC #### [facility] [address] [place] [address] Dr. Mariann Faria #2.7 103/ulNormal1.4-6.5The [facility] HospitalComment on above:Performed By: #### CBC #### [facility] [address] [place] [address] Dr. Mariann Orrutrophils/100 WBC (Bld)54.1 %Mahpzn88.0-75.0The [facility] HospitalComment on above:Performed By: #### CBC #### [facility] [address] [place] [address] Dr. Mariann Schraderlet mean volume (Bld) [Entitic vol]11.3 fLNormal9.5-13.5The [facility] HospitalComment on above:Performed By: #### CBC #### [facility] [address] [address] [address] Mariann OdomPLT251 103/rtJcsgzh097-628Bpl [facility] HospitalComment on above: Performed By: #### CBC #### [facility] [address] [place] [address] Dr. Mariann OdomRBC4.61 106/ulCritically low4.70-6.10The [facility] HospitalComment on above:Performed By: #### CBC #### [facility] [address] [place] [address] Dr. Mariann OdomWBC5.0 103/ulNormal4.0-11.0The [facility] HospitalComment on above: Performed By: #### CBC #### [facility] [address] [place] [address] Dr. Mariann ThapaF 14(COMP METB)on 40-35-2811Nnmnskk [Mass/Vol]3.7 g/dLNormal 3.4-5.0The [facility] HospitalComment on above:Performed By: #### CMP #### [facility] [address] [place] [address] Dr. Mariann OdomAlbumin/Globulin [Mass ratio]1.0 {ratio}NormalThe [facility] Hospitalment on above:Performed By: #### CMP #### [facility] [address] [place] [address] Dr. Mariann Gomez [Catalytic activity/Vol]87 U/TOlzmbp11-105Zvm [facility] Hospitalment on above:Performed By: #### CMP #### [facility] [address] [place] [address] Dr. Mariann Vela [Catalytic activity/Vol]39 U/INdbxcu22-74Qpd [facility] Hospitalment on above:Performed By: #### CMP #### [facility] [address] [place] [address] Dr. Mariann Kasper gap [Moles/Vol]10.2 mmol/LNormalThe [facility] on above:Performed By: #### CMP #### [facility] [address] [address] [address] Mariann OdomAST [Catalytic activity/Vol]22 U/OUowzlb96-60Blv [facility] HospitalComment on above:Performed By: #### CMP #### [facility] [address] [address] [address] Mariann OdomBilirubin [Mass/Vol]0.3 mg/dLNormal0.2-1.0The [facility] Comment on above:Performed By: #### CMP #### [facility] [address] [address] [address] Mariann OdomCalcium [Mass/Vol]9.4 mg/dLNormal8.5-10.1The [facility] Comment on above:Performed By: #### CMP #### [facility] [address] [address] [address] Mariann OdomChloride [Moles/Vol]105 mmol/TPwzxoi44-288Wqe [facility] Comment on above:Performed By: #### CMP #### [facility] [address] [address] [address] Mariann OdomCO2 [Moles/Vol]28.9 mmol/XItqmuz67.0-32.0The [facility] Comment on above:Performed By: #### CMP #### [facility] [address] [address] [address] Mariann OdomCreatinine [Mass/Vol]0.93 mg/dLNormal0.70-1.30The [facility] HospitalComment on above:Performed By: #### CMP #### [facility] [address] [address] [address] Mariann WyattGFR-AF KU[place]I>60Normal>=60The [facility] HospitalComment on above:Performed By: #### CMP #### [facility] [address] [address] [address] Mariann WyattGFR-NON AF [place]>60Normal>=60The [facility] HospitalComment on above:Performed By: #### CMP #### [facility] [address] [address] [address] Mariann OdomGlobulin (S) [Mass/Vol]3.7 g/dLNormalThe [facility] HospitalComment on above:Performed By: #### CMP #### [facility] [address] [address] [address] Mariann OdomGlucose [Mass/Vol]253 mg/dLCritically ggul01-036Bme [facility] HospitalComment on above:Performed By: #### CMP #### [facility] [address] [address] [address] Mariann OdomPotassium [Moles/Vol]4.1 mmol/LNormal3.5-5.1The [facility] Comment on above:Performed By: #### CMP #### [facility] [address] [address] [address] Mariann OdomProtein [Mass/Vol]7.4 g/dLNormal6.4-8.2The [facility] Comment on above:Performed By: #### CMP #### [facility] [address] [place] [address] Dr. Mariann OdomSodium [Moles/Vol]140 mmol/OJtvkid676-217Uxs [facility] Comment on above:Performed By: #### CMP #### [facility] [address] [address] [address] Mariann OdomUrea nitrogen [Mass/Vol]15.0 mg/dLNormal7.0-18.0The [facility] HospitalComment on above:Performed By: #### CMP #### [facility] [address] [address] [address] Mariann Garibay nitrogen/Creatinine [Mass ratio]16.1 mg/mgNormalThe [facility] HospitalComment on above:Performed By: #### CMP #### [facility] [address] [address] [address] Mariann Douglas RATE WESTERGRENon 49-17-0945EPJ RATE15 mm/hrNormal<=20The [facility] HospitalComment on above:Performed By: #### CMP #### [facility] [address] [address] [address] Mariann Odom Vital Signs Date TimeVital SignValuePerforming AawuyenweTczywryw21-50-9689 09:35-0400Body jenrmq931.8 cmMajor Stevens MD Work Phone: [phone]10-22-2025 09:35-0400 Body mass index (BMI) [Ratio]30.4 kg/m2Major Stevens MD Work Phone: [phone])[address] [place], [place] 4306010-22-2025 09:35-0400 Body fkiccmbxltz07.1 [degF]Major Stevens MD Work Phone: 1(459)[address] [place], [place] 4963310-22-2025 09:35-0400 Body yfyoep25.16 kgMajor Stevens MD Work Phone: 1(474)[address] [place], [place] 4963310-22-2025 09:35-0400 Diastolic blood yvyuvkba46 mm[Hg]Major Stevens MD Work Phone: 1(684)[address]10-22-2025 09:35-0400 Heart rate67 /minMajor Stevens MD Work Phone: 1(713)[address]10-22-2025 09:35-0400 Respiratory rate20 /minMajor Stevens MD Work Phone: 1(995)[address] [place], [place] 4963310-22-2025 09:35-0400 SaO2% (BldA) [Mass fraction]98 %Major Stevens MD Work Phone: [phone])[address]10-22-2025 09:35-0400 Systolic blood etjvcesj990 mm[Hg]Major Stevens MD Work Phone: 1(066)[address]04-23-2025 09:15-0400 Body urrsnq846.8 cmMajor Stevens MD Work Phone: [facility] SystemToidvzpdrz69-44-1003 09:15-0400Body mass index (BMI) [Ratio]29.84 kg/m2Major Stevens MD Work Phone: noCitizens Memorial HealthcareWjacpvsapo12-17-1631 09:15-0400Body temperature 97.5 [degF]Major Stevens MD Work Phone: [facility] SystemRjkjrfjpua93-72-2716 09:15-0400Body trfikg37.35 kgMajor Stevens MD Work Phone: [facility] SystemFawrafzvop80-11-9006 09:15-0400Diastolic blood polytwyj71 mm[Hg]Major Stevens MD Work Phone: [facility] SystemPlwiromugg33-52-7334 09:15-0400Heart rate69 /min Major Stevens MD Work Phone: [facility] SystemRidpkjfcso76-76-4399 09:15-0400Respiratory rate18 /minMajor Stevens MD Work Phone: [facility] SystemCaibomelia49-63-2059 09:15-1120YvW1% (BldA) [Mass fraction]97 %Major Stevens MD Work Phone: [facility] SystemHwgtqjytti25-19-3295 09:15-0400Systolic blood qncvxfda063 mm[Hg]Major Stevens MD Work Phone: [facility] SystemTunashzpxk36-27-5133 10:45-0500Body mass index (BMI) [Ratio]29.27 kg/g3AoujmeIsha Valentino MD Work Phone: [facility]03-04-2025 10:45-0500 Body flgyccmgtpz67.3 [degF]Isha Valentino MD Work Phone: [facility]03-04-2025 10:45-0500 Body eijdea35.53 kgIsha Valentino MD Work Phone: [facility]03-04-2025 10:45-0500 Diastolic blood glzjyght04 mm[Hg]Isha Valentino MD Work Phone: [facility]03-04-2025 10:45-0500 Heart rate66 /minIsha Valentino MD Work Phone: [facility]03-04-2025 10:45-0500 Respiratory rate20 /minIsha Valentino MD Work Phone: [facility]03-04-2025 10:45-0500 Systolic blood phhepnrd230 mm[Hg]Isha Valentino MD Work Phone: [facility]10-22-2024 09:01-0400 Body mass index (BMI) [Ratio]29.62 kg/m2Major Stevens MD Work Phone: [facility] SystemJdimhojbwd86-69-6535 09:01-0400Body temperature 97.3 [degF]Major Stevens MD Work Phone: [facility] SystemCxazaslmwz69-34-0623 09:01-0400Body hfydzs11.62 kgMajor Stevens MD Work Phone: [facility] SystemUnlguhxiai69-43-9942 09:01-0400Diastolic blood qknzyrpg08 mm[Hg]Major Stevens MD Work Phone: [facility] SystemRcxffliysq79-47-0680 09:01-0400Heart rate62 /min Major Stevens MD Work Phone: [facility] SystemXarxefnqmk74-85-4314 09:01-5146HhA4% (BldA) [Mass fraction]98 %Major Stevens MD Work Phone: [facility] SystemGvcvohzhdc14-10-6615 09:01-0400Systolic blood hikalnhu975 mm[Hg]Major Stevens MD Work Phone: [facility] SystemZyeragrtjv64-47-3896 14:31-0400Body kyzqgn458.8 cmIsha Valentino MD Work Phone: [facility]05-21-2024 14:31-0400 Body mass index (BMI) [Ratio]30.13 kg/x4TzpemzIsha Valentino MD Work Phone: [facility]05-21-2024 14:31-0400 Body matwmyfbomm78.4 [degF]Isha Valentino MD Work Phone: 1216[facility] [place], [place] 1908305-21-2024 14:31-0400 Body wtinly67.25 kgIsha Valentino MD Work Phone: 1216)[address] [place], [place] 8062005-21-2024 14:31-0400 Diastolic blood bmdjyvog95 mm[Hg]Isha Valentino MD Work Phone: 1(216)[address] [place], [place] 8062005-21-2024 14:31-0400 Heart rate69 /Nkechi Valentino MD Work Phone: 1216)[address] [place], [place] 8062005-21-2024 14:31-0400 Respiratory rate18 /Nkechi Valentino MD Work Phone: 1216)[address] [place], [place] 8062005-21-2024 14:31-0400 Systolic blood mm[Hg]Isha Valentino MD Work Phone: [phone])[address]03-13-2024 16:00-0400 Body wxvmrtdnyxm21.4 [degF]Isha Valentino MD Work Phone: [address] [place], [place] 8062003-13-2024 16:00-0400 Diastolic blood cidhpumw518 mm[Hg]Isha Valentino MD Work Phone: 1216)[address] [place], [place] 8062003-13-2024 16:00-0400 Heart rate96 /Nkechi Valentino MD Work Phone: 1216)[facility] [place], [place] 1908303-13-2024 16:00-0400 Respiratory rate18 /Nkechi Valentino MD Work Phone: [address] [place], [place] 8062003-13-2024 16:00-0400 SaO2% (BldA) [Mass fraction]98 %Isha Valentino MD Work Phone: [address] [place], [place] 8062003-13-2024 16:00-0400 Systolic blood wotnaixn847 mm[Hg]Isha Valentino MD Work Phone: 1(327)736-[address] [place], [place] 5931403-08-2024 13:33-0500 Body plloicflhol46.0Isha Valentino MD Work Phone: 1([phone])[address]03-08-2024 13:33-0500 SaO2% (BldA) [Mass fraction]100 %Isha Valentino MD Work Phone: 1(862)[address]03-08-2024 13:19-0500 Body .0 degrees CelsiusDayton VA Medical CenterComment on above:Performed By: #### 42944-0 #### PACHECO Ferraro ([id number]) [facility] ([facility]) [address] [place], [place] 4819803-08-2024 13:19-3741HsC1% (BldA) [Mass fraction]100 %[facility] CenterComment on above:Performed By: #### 91251-7 #### PACHECO Ferraro ([id number]) [facility] ([facility]) [address] [place], [place] 4819803-08-2024 12:51-0500Body slxpwafnkav71.0Isha Valentino MD Work Phone: 1(729)[address]03-08-2024 12:51-0500 SaO2% (BldA) [Mass fraction]100 %Isha Valentino MD Work Phone: 1(327)018-[address] [place], [place] 1908303-08-2024 12:36-0500 Body nbjowxixklj78.0 degrees CelsiusDayton VA Medical CenterComment on above:Performed By: #### 77715-5 #### PACHECO Ferraro ([id number]) [facility] ([facility]) [address] [place], [place] 4819803-08-2024 12:36-2844UtK5% (BldA) [Mass fraction]100 %[facility] CenterComment on above:Performed By: #### 26198-5 #### PACHECO Ferraro ([id number]) [facility] ([facility]) [address] [place], [place] 4819803-08-2024 11:09-0500Body tucbqgdyopd50.0Isha Valentino MD Work Phone: 1(662)131-[address] [place], [place] 5931403-08-2024 11:09-0500 SaO2% (BldA) [Mass fraction]100 %Isha Valentino MD Work Phone: 1(867)406-[address] [place], [place] 1908303-08-2024 10:49-0500 Body nddczeltraw03.0 degrees CelusDayton VA Medical CenterComment on above:Performed By: #### 46815-5 #### PACHECO Ferraro ([id number]) [facility] ([facility]) [address] [place], [place] [address]-08-2024 10:49-6842PzG5% (BldA) [Mass fraction]100 %[facility] CenterComment on above:Performed By: #### 26758-2 #### PACHECO Ferraro ([id number]) [facility] ([facility]) [address] [place], [place] 4819803-08-2024 09:27-0500Body kjlfndvzoez99.0Isha Valentino MD Work Phone: 1(858)214-[facility]03-08-2024 09:27-0500 SaO2% (BldA) [Mass fraction]100 %Isha Valentino MD Work Phone: 9(430)224-[address] [place], [place] 1908303-08-2024 09:00-0500 Body bcbcbdqexts06.[address] Vincent Medical CenterComment on above:Performed By: #### 88849-3 #### PACHECO Ferraro ([id number]) [facility] ([facility]) [address] [place], [place] [address]-08-2024 09:00-1050TaZ0% (BldA) [Mass fraction]100 %[facility] CenterComment on above:Performed By: #### 60059-9 #### PACHECO Ferraro ([id number]) [facility] ([facility]) [address] [place] [address] [id number] 05:53-0500Body venuwj607.8 cmIsha Valentino MD Work Phone: [facility]03-08-2024 05:53-0500 Body mass index (BMI) [Ratio]30.18 kg/s0WpcniaIsha Valentino MD Work Phone: [facility]03-08-2024 05:53-0500 Body aefjqv43.4 kgIsha Valentino MD Work Phone: [facility]01-03-2024 10:40-0500 Body .34 cmJelinneaica Cat Other [facility] Other 01-03-2024 10:40-0500Body mass index (BMI) [Ratio] 30.26 kg/m8Ndvalcm Cat Other [facility] Other 01-03-2024 10:40-0500Body cnusmb21.43 kgJessica Cat Other [facility] Other 11-27-2023 09:45-0500Body aisxxd581.34 Mehdi Sandoval Other [facility] Other 11-27-2023 09:45-0500Body mass index (BMI) [Ratio] 30.12 kg/g2BfczvcAbel Sandoval Other [facility] Other 11-27-2023 09:45-0500Body scdawn95.98 kgSherikaushik Sandoval Other [facility] [employer] Other 11-27-2023 09:45-0500Diastolic blood ykddhjkn91 mm[Hg] Abel Lori Other [facility] [employer] Other 11-27-2023 09:45-3915FcE0% (BldA) [Mass fraction]99 % Abel Sandoval Other [facility] [employer] Other 11-27-2023 09:45-0500Systolic blood owslhlmp095 mm[Hg] Abeldahiana Sandoval Other [place] [employer] Other 11-15-2023 10:35-0500Diastolic blood tytzirmn44 mm[Hg] MD Major Stevens Work Phone: 1(896)296-[address] [place], [place] 6758411-15-2023 10:35-0500 Heart rate65 /minMD Major Stevens Work Phone: 1(780)137-[address] [place], [place] 6758411-15-2023 10:35-0500 Respiratory rate16 /minMD Major Stevens Work Phone: 1(566)455-[address] [place], [place] 6758411-15-2023 10:35-0500 SaO2% (BldA) [Mass fraction]97 %MD Major Stevens Work Phone: 1(800)694-[facility]11-15-2023 10:35-0500 Systolic blood mm[Hg]MD Major Stevens Work Phone: 1(134)040-[facility]11-15-2023 09:57-0500 Inhaled oxygen flow rate3 L/minMD Major Stevens Work Phone: 1(071)146-[address] [place], [place] 6758411-15-2023 08:54-0500 Body .8 cmMD Major Stevens Work Phone: 1(916)211-[address] [place], [place] 6758411-15-2023 08:54-0500 Body .52 kgMD Major Stevens Work Phone: 1(069)310-[address] [place], [place] 6758410-25-2023 11:33-0400 Diastolic blood esrxljvv74 mm[Hg]MD Major Stevens Work Phone: 1(057)[address]10-25-2023 11:33-0400 Heart rate70 /minMD Major Stevens Work Phone: [phone])[address]10-25-2023 11:33-0400 Respiratory rate16 /minMD Major Stevens Work Phone: [phone])[address]10-25-2023 11:33-0400 SaO2% (BldA) [Mass fraction]98 %MD Major Stevens Work Phone: [phone])[address]10-25-2023 11:33-0400 Systolic blood zupbhyzr019 mm[Hg]MD Major Stevens Work Phone: 1(512)[address]10-25-2023 11:05-0400 Inhaled oxygen flow rate3 L/minMD Major Stevens Work Phone: [phone])[address]10-25-2023 10:40-0400 Body waqphc606.8 cmMD Major Mendezdayron Work Phone: 1(830)[address]10-25-2023 10:40-0400 Body aatnqv49.52 kgMD Major Stevens Work Phone: 1(806)417-[address] [place], [place] 6758410-03-2023 08:30-0400 Body sogjbr507.34 cmSherdahiana Sandoval Other [facility] [employer] Other 10-03-2023 08:30-0400Body mass index (BMI) [Ratio] 30.12 kg/i6SzdrwmAbel Sandoval Other [place] [employer] Other 10-03-2023 08:30-0400Body ububun09.98 kgSherif Lori Other [place] [employer] Other 10-03-2023 08:30-0400Diastolic blood vaidoihm16 mm[Hg] Abel Sandoval Other [facility] [employer] Other 10-03-2023 08:30-5017GvI6% (BldA) [Mass fraction]98 % Abel Sandoval Other [facility] [employer] Other 10-03-2023 08:30-0400Systolic blood axcbjjmi824 mm[Hg] Abel Sandoval Other [facility] [employer] Other Encounters Encounter DateEncounter TypeCare ProviderFacilityStart: 43-99-5531btnvkhiejl Tomy Baldwin NILLFacility: [facility]vueStart: 45-67-6435kbwjeavpwaWbajmfx NILRonan Facility: [facility]vueStart: 01-14-2025 End: 06-44-1951ltqchlfnotTwki Naderer MD Work Phone: -[facility] ClydeStart: 01-14-2025 End: 54-91-3900Dktvyyn encounter procedureMajor Stevens MD-[facility] [place] Work Phone: Start: 11-12-2024 End: 84-16-7521Wvvyngnal Result EncounterGeneric External Data ProviderNOMS External Department UnsolicitedStart: 11-12-2024 End: 42-19-1368Rzogezvfx Result EncounterGeneric External Data ProviderNOMS External Department UnsolicitedStart: 07-16-2024 End: 55-02-6207Zvbwjm flowsAva Stevens MD Work Phone: noms Mary FMStart: 07-16-2024 End: 36-38-2070Mtkhln Chencho Stevens MD Work Phone: noms CWMary FMStart: 07-16-2024 End: 13-10-2661Vazksyksy Result EncounterMajor Stevens MD Work Phone: noms External Department UnsolicitedStart: 07-16-2024 End: 29-14-0185Cieart outpatient visit 25 minutesMajor Stevens MD Work Phone: [facility]oms [facility] FMComment on above:Type 2 diabetes mellitus with hyperglycemia, without long-term current use of insulin ([facility]) (Primary Dx); Essential hypertension ([facility]); Lumbar spondylosis; Arthropathic psoriasis, unspecified ([facility])Start: 07-16-2024 End: 00-77-6028pilwycsyqiHBUI NADERERNot AvailableStart: 06-25-2024 End: 93-42-0095Abhcalzwj Result EncounterGeneric External Data ProviderNOMS External Department UnsolicitedStart: 06-25-2024 End: 64-35-7815Vthdihajp Result EncounterGeneric External Data ProviderNOMS External Department UnsolicitedStart: 05-27-2024 End: 42-02-2786Pozqtutah Result EncounterGeneric External Data ProviderNOMS External Department UnsolicitedStart: 05-27-2024 End: 06-23-4611Mvrvyeckx Result EncounterGeneric External Data ProviderNOMS External Department UnsolicitedStart: 05-27-2024 End: 51-44-8114Wrrwur outpatient visit 25 minutesIsha Valentino MD Work Phone: [facility] PavilionComment on above:S/P spinal surgery (Primary Dx)Start: 05-27-2024 End: 92-91-6221Ykeoxivbdr hospital visit by physicianluis Retana X-Ray [facility] PavilionComment on above:S/P lumbar spinal fusion; Scoliosis of thoracolumbar region due to degenerative disease of spine in adult Start: 05-27-2024 End: 45-40-1389xtefztjggkARXSQDRegency Hospital Cleveland Westtart: 02-19-2024 End: 74-43-8334Fybzcngnf Result EncounterGeneric External Data ProviderNOMS External Department UnsolicitedStart: 02-19-2024 End: 64-14-4976Panelllca Result EncounterGeneric External Data ProviderNOMS External Department UnsolicitedStart: 01-15-2024 End: 79-53-6349Bnqtkm flowsAva Stevens MD Work Phone: NOFJ CWM FMStart: 01-15-2024 End: 09-92-0467Lgyelw flowsAva Stevens MD Work Phone: noms CWM FMStart: 01-15-2024 End: 06-72-6533Koopbgs encounter procedureMajor Stevens MD Work Phone: [facility] Work Phone: Start: 01-15-2024 End: 10-00-6669Kyfhkijv preventive med est patient 40-64yrsMarc Radha COPELAND Work Phone: noms CWM FMComment on above:Annual physical exam (Primary Dx); Type 2 diabetes mellitus with hyperglycemia, without long-term current use of insulin (CMS/HCC); Essential hypertension (CMS/HCC)Start: 01-15-2024 End: 88-60-4839jupxlqsetkYCZL NADERERNot AvailableStart: 11-14-2023 End: 46-53-1084Mqteacvwh Result EncounterGeneric External Data ProviderNOMS External Department UnsolicitedStart: 11-14-2023 End: 82-19-1695Mrtdyhxnu Result EncounterGeneric External Data ProviderNOMS External Department UnsolicitedStart: 10-17-2023 End: 10-02-1808yivskoylrcCLYW NADERERNot AvailableStart: 08-23-2023 End: 78-06-8379jftqshrndyHEGPYL T GRACIETONNot AvailableStart: 08-21-2023 End: 20-28-9936iummygwfjcKKMUVNQJ BRINKNot AvailableStart: 08-16-2023 End: 37-60-4832eajbtjnsrxOEJRBPHN BRINKNot AvailableStart: 08-14-2023 End: 17-07-0995Hpszqa follow up visit related to original Rosaura Valentino MD Work Phone: [facility] PavilionComment on above:Postoperative follow-up (Primary Dx)Start: 08-14-2023 End: 97-71-2875Ugcvymjunf hospital visit by physicianRufina Retana X-Ray [facility] PavilionComment on above:S/P lumbar spinal fusion; Scoliosis of thoracolumbar region due to degenerative disease of spine in adult Start: 08-14-2023 End: 78-89-6455Oabpyrlgc Result EncounterGeneric External Data ProviderNOMS External Department UnsolicitedStart: 08-14-2023 End: 29-12-6776Jczigwvkl Result EncounterGeneric External Data ProviderNOMS External Department UnsolicitedStart: 08-14-2023 End: 66-91-0758hpnnqndjnjGNRFHSRegency Hospital Cleveland Westtart: 08-13-2023 End: 12-49-4412guxaqxfphyYVMTBG T BLACKSTONNot AvailableStart: 08-09-2023 End: 92-54-5956jupexeganuGZHYUUZD BRINKNot AvailableStart: 08-06-2023 End: 90-07-1303tszjkxirbgYZUGGP T BLACKSTONNot AvailableStart: 08-02-2023 End: 46-48-3981byriznlejqNUZPYVCP BRINKNot AvailableStart: 07-30-2023 End: 63-46-5356cscxrjejkiDQLDVLLJ BRINKNot AvailableStart: 07-26-2023 End: 81-35-2194ruuqrmklqaXIQFOL T BLACKSTONNot AvailableStart: 07-10-2023 End: 50-51-9537Oxnobduqu Result EncounterGeneric External Data ProviderNOMS External Department UnsolicitedStart: 07-10-2023 End: 19-43-7948Flnvphwsp Result EncounterGeneric External Data ProviderNOMS External Department UnsolicitedStart: 07-10-2023 End: 34-30-0893Podcifaycw hospital visit by Analilia Retana X-Ray 4 [facility] PavilionComment on above:Status post spinal surgeryStart: 07-10-2023 End: 02-29-6624etnhkvohalTCJMHWMemorial Health University [facility] Center Medical CenterStart: 76-49-2957ookdqejbtpEGME PHYSICIANFacility:RStart: 06-01-2023 End: 35-72-6387Gdypesakaz and management of inpatientIsha Valentino MD Work Phone: [facility] [place] 4Comment on above:Lumbar radiculopathy, right (Primary Dx); Spinal stenosis of lumbar region with neurogenic claudication; Sagittal plane imbalance; Scoliosis of thoracolumbar region due to degenerative disease of spine in adult; Lumbar foraminal stenosis; Lumbar radiculopathy, acute; Lumbar stenosis with neurogenic claudication; Postoperative pain; Constipation due to pain medication; Psoriatic arthritis ([facility])Start: 05-17-2023 End: 53-89-6965pavdbsjobxOTPVTogus VA Medical Centertart: 05-17-2023 End: 96-92-8246yyunjicemeRAUEVY Isabelle [facility] Hospitaltart: 05-17-2023 End: 10-20-6798Tomqmfirr for other preprocedural examinationISHA Walton [facility] Hospitaltart: 05-17-2023 End: 63-33-0592Gfreohg encounter statusFostoria City Hospital Work Phone: Start: 05-17-2023 End: 58-11-5244Egwhzgmg examinationFostoria City Hospital Work Phone: Start: 05-17-2023 End: 14-58-6979Hjslyvbdyi hospital visit by physicianPr[facility] Ssc[facility] Cr Nonv1 Holter/Ecg Saint [facility] MatherComment on above:Surgery, elective; Preop testing; Preoperative general physical examinationStart: 04-24-2023 End: 77-00-6066jjpfcdsgtzWWDCBRTriHealth Good Samaritan Hospitaltart: 04-24-2023 End: 68-20-4208Mcnafunjgs hospital visit by physicianRufina Retana X-Ray [facility] Barrington Cordova PavilionComment on above:Spinal stenosis of lumbar region with neurogenic claudicationStart: 94-20-3294Kywdvs Cher Villa MD Work Phone: [facility] SpineStart: 03-29-2023 End: 53-47-7354wdmnkwuzagVluankd Springer Other [employer] Other start: 75-54-2213Lyxfwqfzh encounterHenrylinneabrandy Cat FPG Referral CoordinatorStart: 03-28-2023 End: 20-48-0183tjhddjubxpJypuevo Springer Other [place] [employer] Other start: 21-10-1281Abrdem outpatient visit 25 minutes Natty Infante [facility] NeurosurgeryStart: 02-19-2023 End: 30-83-4433bbwifufmpvBubxsk Zaky Other [place] [employer] Other Start: 32-03-6307Uiirrg outpatient visit 25 minutes Abel Dexter Pain ManagementStart: 02-07-2023(PROC) PROCEDURESherdahiana Sandoval [facility] OutPtStart: 02-07-2023 End: 53-25-9690hbijbqnlghEhidpb S ZakyFacility:[facility] Start: 02-07-2023 End: 39-26-1308Kqnebvetl to same day surgery centerMD Major Stevens Work Phone: [facility] Work Phone: Start: 02-07-2023 End: 81-94-8979jtnffvhygvGA Marc Naderer Work Phone: [facility] Work Phone: Start: 01-17-2023(PROC) PROCEDURESulysses [facility] OutPtStart: 01-17-2023 End: 00-28-0958wivxxuoklwCftwyc S ZakyFacility:[facility] Start: 01-17-2023 End: 64-20-3725Xihdzsrts to same day surgery centerMD Major Stevens Work Phone: [facility] Work Phone: Start: 01-17-2023 End: 19-05-8849lejlzmekanVE Marc Naderer Work Phone: [facility] Work Phone: Start: 12-26-2022 End: 38-37-9532dnblqvqmxpCuwote Zaky Other [employer] Other Start: 16-34-9671Qiyhoy outpatient visit 25 minutes Abeldahiana Dexter Pain ManagementStart: 12-15-2022 End: 16-30-0598cjadovglbfQctcq HartFacility:[facility] Start: 12-15-2022 End: 44-78-5970Okchoej encounter procedureMD Major Stevens Work Phone: [facility] [address] Work Phone: Start: 10-25-2022 End: 48-79-0520iemduremryAeqeml Zaky Other [employer] Other Start: 26-41-6665Fvgvdlnup encounterSherdahiana Dexter Pain ManagementStart: 10-16-2022 End: 75-41-5570ykdokwwklmJtqgmv S ZakyFacility:[facility] Start: 07-19-2022 End: 80-06-6771duupbehzfqDA TONIA PADILLAFacility:G3Vjsqi: 04-11-2022 End: 47-04-4104znererbxcgNV TONIA PADILLAFacility:Z1Jlabp: 04-03-2022 End: 92-73-8585ffjhfuscsfIZ MAJOR STRONGacility:Z8Qatyh: 01-03-2022 End: 38-48-5249pwfomdblemGE TONIA PADILLAFacility:L1Knevg: 65-57-8408Hrabrcbzt for general adult medical examination without abnormal findingsDR MAJOR STEVENS [facility] HospitalStart: 09-13-2021 End: 59-50-2397ubwupyyraoUF MAJOR Martinez PACHECOGEORFacility:O7Pejgf: 09-13-2021 End: 39-16-7366Ysbmqlddj for general adult medical examination without abnormal findingsDR MAJOR Martinez PACHECOGEORFacility:C8Kvsau: 08-24-2021 End: 39-01-2466dcmiggqtyaEY TONIA PADILLAFacility:H1 Procedures DateProcedureProcedure DetailPerforming ClinicianStart: 52-88-1503CPG CBC WITH AUTO DIFFGeneric External Data ProviderStart: 09-15-1711UHA HEMOGLOBIN O3EHofr Radha COPELAND Work Phone: Start: 02-30-2267PKU CBC WITH AUTO DIFFGeneric External Data ProviderStart: 64-68-0779JN SCOLIOSIS SERIES 2 TO 3 VIEWSGeneric External Data ProviderStart: 54-31-5861DPP CBC WITH AUTO DIFFGeneric External Data ProviderStart: 22-70-4913FXO SED RATEGeneric External Data ProviderStart: 55-48-7085ONT CMP (CMP) (FOR REMOTE [facility] USE)Generic External Data ProviderStart: 62-05-7648OKQ CBC WITH AUTO DIFFGeneric External Data ProviderStart: 08-14-2023 X-ray exam of trunk spineGeneric External Data ProviderStart: 21-77-3432NG SCOLIOSIS 2 VIEW (NON EOS)ISHA VALENTINOStart: 80-61-3302J-ray exam of trunk spineGeneric External Data ProviderStart: 88-59-3591DIDEVHURD PATIENTENGLEWOODMARVIN SAN LE[facility] HOSPITALYESICARICHMOND UNIVERSITY MEDICAL CENTERStart: 51-78-8078FLNICCNTDCXTQD SAN [facility] HOSPITALZOEStart: 01-34-5336SSEPL DISCHARGE DIETENGLEWOODMARVIN VALENTINOStart: 64-15-2574UUMKYZAJP ACTIVITYENGLEWOODMARVIN Ambrizart: 82-57-2471QUBLYVMBM INSTRUCTIONSENGLEWOODMARVIN Special Care Hospitalart: 63-47-4965YALHJC PROVIDER (DO NOT PROMPT FOR PARAMETERS)ISHA Ambrizart: 45-11-3549Hljrvgk [Mass/volume] in Serum or PlasmaISHA VALENTINOStart: 99-24-4056Jiheukv quantitative blood xcpt reagent Kamala Valentino MD Work Phone: Start: 09-43-1721FQSOTSHR PATIENT TO [facility]: 56-17-1227IKB panel - Blood by Automated countSUMANTHMARVIN CHELSY Start: 53-30-7047WAMKL FUNCTION PANELENGLEWOODMARVIN DYSONFederal Medical Center, Rochesterart: 70-02-8529Yyczres [Mass/volume] in Serum or PlasmaBlue Mountain Hospitalart: 06-06-2023 End: 06-49-4327Geqso function panelRenetta Knox FIBROUS PLASTERER-MANAGER DEVELOPMENTAL Work Phone: Start: 61-82-9959Ztxpmwx [Mass/volume] in Serum or PlasmaSouthwest Memorial Hospital: 95-08-2000Xlhooru quantitative blood xcpt reagent Kamala Valentino MD Work Phone: Start: 89-00-4592Rwajmmh [Mass/volume] in Serum or PlasmaSouthwest Memorial Hospital: 66-08-8038Zurejdg quantitative blood xcpt reagent Kamala Valentino MD Work Phone: Start: 64-51-1936Bhpecqq [Mass/volume] in Serum or PlasmaENGLEWOODMARVIN [facility]: 32-84-7746Wmwvsod quantitative blood xcpt reagent Kamala Valentino MD Work Phone: Start: 22-55-6101Qfllksp [Mass/volume] in Serum or PlasmaSPANISH FORK HOSPITALMICHAELWhitelaw: 49-70-2547Xormght quantitative blood xcpt reagent Kamala Valentino MD Work Phone: Start: 79-05-0987Dadmotp [Mass/volume] in Serum or PlasmaSouthwest Memorial Hospital: 22-60-9246Hzkpzbc quantitative blood xcpt reagent Kamala Valentino MD Work Phone: Start: 03-44-7915Ogtrise [Mass/volume] in Serum or PlasmaSPANISH FORK HOSPITALMICHAELart: 92-45-2080Edihicb quantitative blood xcpt reagent stripIsha Valentino MD Work Phone: Start: 84-33-8296Plrgevg [Mass/volume] in Serum or PlasmaISHA VALENTINOStart: 73-50-6060Xrzcr metabolic 2000 panel - Serum or PlasmaISHA VALENTINOStart: 48-39-1266CJT panel - Blood by Automated countGUERNSEY MEMORIAL HOSPITAL JANUARYWALStart: 95-48-9544Ylvewwu quantitative blood xcpt reagent Kamala Valentino MD Work Phone: Start: 97-90-6833Zfdwuns [Mass/volume] in Serum or PlasmaISHA VALENTINOStart: 79-57-0386Wdtkj metabolic panel calcium total Terrell Johnson MD Work Phone: start: 48-76-9286Dhefvun quantitative blood xcpt reagent Kamala Valentino MD Work Phone: Start: 83-21-7356Pjlbjtb [Mass/volume] in Serum or PlasmaISHA SINMICHAELart: 16-92-9079Ejyqeih quantitative blood xcpt reagent Kamala Valentino MD Work Phone: Start: 37-41-7949Cgzleew [Mass/volume] in Serum or PlasmaISHA ISNMICHAELStart: 43-95-1310Bsqhzab quantitative blood xcpt reagent Kamala Valentino MD Work Phone: Start: 35-51-6316Kexaa metabolic 2000 panel - Serum or PlasmaISHA VALENTINOStart: 76-68-3128NGY panel - Blood by Automated count ISHA CHELSYStart: 29-48-7974Qsiqqee [Mass/volume] in Serum or PlasmaSUMANTHISH CHELSYStart: 06-03-2023 End: 94-54-5446Ihjhz metabolic panel calcium totalSenic Johnson MD Work Phone: start: 78-68-0624Cqlsqol [Mass/volume] in Serum or PlasmaISHA VALENTINOStart: 93-38-4147Lnufkwk quantitative blood xcpt reagent Kamala Valentino MD Work Phone: Start: 00-61-4127Eslgubw [Mass/volume] in Serum or PlasmaBlue Mountain Hospitalart: 89-97-8981Udroecc quantitative blood xcpt reagent stripIsha Valentino MD Work Phone: Start: 13-78-0862Ixfximg [Mass/volume] in Serum or PlasmaHUNTSMAN MENTAL HEALTH INSTITUTEStart: 65-57-3763Mclhvyj quantitative blood xcpt reagent stripIsha Valentino MD Work Phone: Start: 11-87-2973AYN panel - Blood by Automated count [facility] Hospitalart: 39-75-3499WHYQPVYAOWQXISXP KASLIWALStart: 06-02-2023 Magnesium [Mass/volume] in Serum or PlasmaBlue Mountain Hospitalart: 68-34-6428LJVZJ FUNCTION PANELBlue Mountain Hospitalart: 48-17-0473Czwgo function panelSebsaul Johnson MD Work Phone: start: 98-32-5193ZXNE CODEBlue Mountain Hospitalart: 12-63-7458DWS panel - Blood by Automated countBlue Mountain Hospitalart: 06-01-2023 FIBRINOGENBlue Mountain Hospitalart: 15-81-7113Ooqrhvwra [Mass/volume] in Serum or PlasmaBlue Mountain Hospitalart: 86-31-2613POXLF OXIMETRY, CONTINUOUSGUERNSEY MEMORIAL HOSPITAL KARISUINTAH [facility] Start: 45-19-3857WEBCJ TO INPATIENTBlue Mountain Hospitalart: 31-81-5937Smtaidk [Mass/volume] in Serum or PlasmaBlue Mountain Hospitalart: 06-01-2023 End: 45-87-2721Wgzcr of magnesiumSebacarline Johnson MD Work Phone: start: 16-42-3421AF FLUORO IMAGES NO CHARGEBlue Mountain Hospitalart: 11-74-7035ALEDH OXIMETRY, CONTINUOUSPanfabian Bacon MD Work Phone: Start: 37-85-8659Mewgcbo quantitative blood xcpt reagent stripIsha Valentino MD Work Phone: Start: 06-01-2023 End: 11-36-6000QS tomography Unspecified body regionSjosue Johnson MD Work Phone: start: 06-01-2023 End: 10-82-0784Fyvvrwcd bldColleen T O'Shalonda CAA Work Phone: Start: 76-38-2849NVMSGLA RBCISHA VALENTINOStart: 21-73-9776BXMAD/VERIFY ABORHMANI CHELSYStart: 65-31-4110JHFRS GAS ARTERIAL FULL PANELISHA VALENTINOart: 91-68-9332Uhglbxwc bldColleen T O'Shalonda CAA Work Phone: Start: 57-85-6730YOMJSLJ RBCColleen T O'Shalonda CAA Work Phone: Start: 76-05-1970SVSWSBFWP KARISMICHAELStart: 06-01-2023 VERAB/VERIFY ABORHColleen T O'Shalonda CAA Work Phone: Start: 54-67-9253Wzamgsb [Mass/volume] in Serum or PlasmaISHA Ambrizart: 06-01-2023 End: 72-52-6729Lwjsquao post/posterolatrl/postinterbody lumbarIsha Valentino MD Work Phone: Start: 87-12-9401Lrmwbqu quantitative blood xcpt reagent Kamala Valentino MD Work Phone: Start: 96-85-6319REH 12-LEADISHA Ambrizart: 50-98-2324Klt routine ecg w/least 12 lds trcg only w/o i&rLpetrona Theodore MD Work Phone: Start: 67-38-2763Iupou metabolic 2000 panel - Serum or PlasmaISHA Ambrizart: 12-27-0266NBR panel - Blood by Automated count ISHA Ambrizart: 09-37-9341TCCD AND SCREENSouthwest Memorial Hospital: 05-17-2023 STAPHYLOCOCCUS AUREUS/MRSA COLONIZATION, CULTURESouthwest Memorial Hospital: 05-17-2023 REQUEST FOR PRE-ADMISSION TESTING VISITSouthwest Memorial Hospital: 04-24-2023 Hemoglobin A1c/Hemoglobin.total in BloodSouthwest Memorial Hospital: 37-26-3346Aoxlf anesthetic sacral epidural blockMD Major Stevens Work Phone: Start: 55-73-6480Ffksbfydp of local anesthetic into sacroiliac jointMD Major Stevens Work Phone: Start: 42-01-4152PS lumbar spine wo conMD Major Stevens Work Phone: Start: 00-57-0870YBU screeningDR TONIA PADILLAComment on above:Performed By: #### A1C #### [facility] [address] [place] [address] Dr. Mariann OdomStart: 81-12-8541PrwgsbxedvfZikamos Provider Plan of Treatment DateCare ActivityDetailAuthorStart: 36-00-6794Gszfjlgf screeningDiabetes: Retinopathy ScreeningNOWY HealthcareStart: 01-16-2025 End: 18-66-2214Hqohqpb encounter bgnpdrzko95/24/2025 9:00 AM EDT [facility] [address] [place] [address] Major Stevens MD [address] [place] [address] [facility] WANDER FMStart: 78-97-3321Fmlgabygj vaccinationNOWY HealthcareStart: 95-56-5111Dkxaf screening for proteinDiabetes: Urine Protein ScreeningCEDAR CITY HOSPITAL HealthcareStart: 24-21-7242Owsvlnjbz for malignant neoplasm of colonNOWY HealthcareStart: 07-16-2024 End: 67-20-0683Qwzfxhdyls A1c/Hemoglobin.total in BloodHemoglobin A1c Lab Routine Type 2 diabetes mellitus with hyperglycemia, without long-term current use of insulin ([facility]) Expected: 07/16/2024 (Approximate), Expires: 07/16/2025 [facility] Work Phone: Comment on above:Expected: 07/16/2024 (Approximate), Expires: 07/16/2025Start: 07-16-2024 End: 28-41-1924Sivyvvj encounter procedureNOMS CWM FMComment on above:Arrived Start: 84-06-5349Nscsjpmo screeningDiabetes: Retinopathy ScreeningNOWY HealthcareStart: 87-52-6975Hadjslnckz A1c measurementDiabetes: Hemoglobin A1C [facility] HealthcareStart: 01-15-2024 End: 97-84-2200Rhjxzpw encounter procedureNOMS CWM FMComment on above:Arrived Start: 18-23-0485CjhjcwfkeChildren's Hospital for RehabilitationStart: 88-38-6450Flkiy screening for proteinDiabetes: Urine Protein ScreeningCEDAR CITY HOSPITAL HealthcareStart: 39-90-5763Dfehqieqvj A1c measurementDiabetes: Hemoglobin A1C [facility] HospitalStjacksonville: 07-10-2023 End: 65-43-6073Rgbipye encounter jbqxvoqlt79/16/2024 11:40 AM EDT [place] [id number] [place] [address] [place] [address] [place] Ontiverostart: 06-13-2023 End: 62-17-4376Oscadsnu Bhvrtri0506/13/2023 10:45 AM EDT Clinical Support [facility] [address] [facility] [address]th [place] [address] [facility] HospitalStart: 06-01-2023 End: 10-52-5415Yncglhwbc to same day surgery yywbzl5206/01/2023 7:15 AM EST - 06/01/2023 12:55 PM EST Surgery [facility] [address] [place] [address] [place] [address] Department [place] [address] L4-5 and L5-S1 transforaminal lumbar interbody fusion with placement of interbody cage with decompression L3-4 posterior column osteotomy with L2-3 laminectomy and facetectomy and L2-S1 instrumented fusion using local bone autograft and BMP with pelvic fixation. [02585 (CPT )][facility] Samuel ORComment on above:L4-5 and L5-S1 transforaminal lumbar interbody fusion with placement of interbody cage with decompression L3-4 posterior column osteotomy with L2-3 laminectomy and facetectomy and L2-S1 instrumented fusion using local bone autograft and BMP with pelvic fixation. [96130 (CPT )]Start: 06-01-2023 End: 74-57-0399Kspiikgw post/posterolatrl/postinterbody lumbarFusion Spine Transforaminal Interbody Lumbar with Navigation Spinal stenosis of lumbar region with neurogenic claudication Sagittal plane imbalance Scoliosis of thoracolumbar region due to degenerative disease of spine in adult Lumbar foraminal stenosis Lumbar radiculopathy, acute Lumbar stenosis with neurogenic claudication 06/01/2023 7:15 AM ESTVirtual VIKASH Baker ORStart: 31-25-3268Qqpleagaxn hospital visit by mbauiidyz73/08/2024 5:45 AM EST Hospital Encounter [facility] [address] [place] [address] [place] [address] [address] Department of Neurological Surgery [place] [id number] [facility] [place] Start: 04-17-2023 End: 39-51-2177Xpxslxu encounter ojbgarvng52/23/2024 9:00 AM EST Office Visit [facility] [address] [place] [address] Dino Villa MD [address] [place] [address] [facility] Orthopedic SpineStart: 04-12-2023 End: 81-80-0985RRUEJNKL POWERSHARE IMAGES TO EPICDOWNLOAD POWERSHARE IMAGES TO EPIC Imaging Routine Back pain, unspecified back location, unspecified back pain laterality, unspecified chronicity Expected: 04/12/2023, Expires: 04/12/2024[facility] MEDICAL CENTEReXelateLANCASTER [facility] Work Phone: Comment on above:Expected: 04/12/2023, Expires: 04/12/2024Start: 29-39-3066WdelnwpdiSelect Medical Specialty Hospital - Columbustart: 01-17-2023 [facility] CenterStart: 40-61-7004TEAEI-19 Vaccine ( season)COVID-19 Vaccine ( season)[facility]HealthStart: 11-24-2022 Influenza vaccinationInfluenza Vaccine (#1)[facility]Summa HealthStart: 35-96-4970JEA High Risk: (Elderly (60+) or Population) (1 - Risk 60-74 years 1-dose series)RSV High Risk: (Elderly (60+) or Population) (1 - Risk 60-74 years 1-dose series)[facility]: 70-54-3331JRH patients and/or patients aged 60+ years (1 - 1-dose 60+ series)RSV patients and/or patients aged 60+ years (1 - 1-dose 60+ series) [facility]: 01-86-2408EFF vaccine (optional 60+ years)RSV vaccine (optional 60+ years)[facility]HealthStart: 58-63-3316QCLHN-19 Vaccine (2 - Bev risk series)COVID-19 Vaccine (2 - Bev risk series) [facility]: 23-39-0753Jdwkctdd (RZV) Vaccine (1 of 2)Shingles (RZV) Vaccine (1 of 2)[facility]HealthStart: 41-88-6353Gpswyn Vaccines (1 of 2)Zoster Vaccines (1 of 2)[facility]: 2007 Screening for malignant neoplasm of colonMetroHealthStart: 93-90-5302Gtdbp panel CholesterolMetroHealthStart: 22-28-9798UVsJ/Tdap/Td Vaccines (1 - Tdap) DTaP/Tdap/Td Vaccines (1 - Tdap)[facility]: 32-26-2003Zxcqpjzjpclc vaccinationPneumococcal Vaccine (1 of 2 - PCV)[facility]: 74-23-0222Gbyem screening for proteinDiabetes: Urine Protein ScreeningUnHolzer Health System: 12-64-2416Cuptmx Vaccines (1 of 2)Zoster Vaccines (1 of 2)[facility]: 59-38-8577Xpilzqhnq C screeningMetroGood Samaritan Hospital: 55-83-7786Owinmzx + diphtheria + acellular pertussis vaccine (product)Tdap BoosterMetroHealthart: 1977 HIV screeningHIV TestMetroGood Samaritan Hospital: 57-54-3962Phjgslid foot examination Diabetes: Foot ExamUnHolzer Health System: 01-01-4146Gwqktbvy screeningDiabetes: Retinopathy ScreeningUnHolzer Health System: 53-54-7868Kxlrhunnituk Vaccine: Pediatrics (0 to 5 Years) and At-Risk Patients (6 to 64 Years) (1 - PCV)Pneumococcal Vaccine: Pediatrics (0 to 5 Years) and At- Risk Patients (6 to 64 Years) (1 - PCV)[facility]: 05-43-7147Cfyaxbbthykr Vaccine: Pediatrics (0 to 5 Years) and At-Risk Patients (6 to 64 Years) (1 of 2 - PCV)Pneumococcal Vaccine: Pediatrics (0 to 5 Years) and At-Risk Patients (6 to 64 Years) (1 of 2 - PCV)[facility]: 52-34-4401VRE Vaccines (1 of 1 - Standard series)MMR Vaccines (1 of 1 - Standard series)[facility]: 75-15-3275DTG screeningHIV ScreeningUnHolzer Health System: 16-94-1515Cfeif panelLipid PanelUnHolzer Health System: 50-16-2155Ijdlxqloz for malignant neoplasm of colonMetroGood Samaritan Hospital: 66-39-3360Wanrd screening for proteinDiabetes: Urine Protein ScreeningUnHolzer Health System: 19-33-4572Uvrcgo Adult PhysicalYearly Adult PhysicalUnTogus VA Medical CenterArthdsis post/posterolatrl/postinterbody lumbarFusion Spine Transforaminal Interbody Lumbar with Navigation Spinal stenosis of lumbar region with neurogenic claudication Sagittal plane imbalance Scoliosis of thoracolumbar region due to degenerative disease of spine in adult Lumbar foraminal stenosis Lumbar radiculopathy, acute Lumbar stenosis with neurogenic claudication [facility] Work Phone: Comprehensive metabolic 2000 panel - Serum or Plasma [facility] End: 45-10-8015[place] [Mass/volume] in Serum or PlasmaSIERRA VISTA [facility] Service [facility] Work Phone: comment on above:Once (Lab) for 1 Occurrences starting 06/01/2023 until 06/01/2023s needed (Lab) until discontinued starting 06/01/2023 End: 13-55-2137Kunzowxtw spirometry InstructIncentive spirometry Instruct Respiratory Care Routine Once for 1 Occurrences starting 06/01/2023 until 06/01/2023[facility] Work Phone: Comment on above:Once for 1 Occurrences starting 06/01/2023 until 06/01/2023 End: 40-33-2873Wewjjifkknkjis monitoring - IOMInteroperative monitoring - IOM Neurology Routine Once for 1 Occurrences starting 06/01/2023 until 06/01/2023 [facility] Work Phone: Comment on above:Once for 1 Occurrences starting 06/01/2023 until 06/01/2023atient EducationZaky Non Diagnostic BlockProvidence Hospital Ctr Work Phone: Patient [facility] Work Phone: End: 96-43-2318Ddlze oximetry, continuousPulse oximetry, continuous Respiratory Care Routine Continuous until discontinued starting 06/01/2023[facility] Work Phone: Comment on above:Continuous until discontinued starting 06/01/2023 End: 54-55-4241Guewl oximetry, continuousPulse oximetry, continuous Respiratory Care Routine Continuous until discontinued starting 06/02/2023[facility] Work Phone: Comment on above:Continuous until discontinued starting 06/02/2023 End: 30-17-8055Wjggh function 2000 panel - Serum or PlasmaRenal function panel Lab Routine Morning draw (Lab) for 1 Occurrences starting 06/07/2023 until 05/24[facility] Work Phone: Comment on above:Morning draw (Lab) for 1 Occurrences starting 06/07/2023 until 06/07/2023 End: 75-51-9960Eviongpq Catheter RemovalUrethral Catheter Removal Procedures Routine Once for 1 Occurrences starting 06/02/2023 until 06/02/2023[facility] Work Phone: Comment on above:Once for 1 Occurrences starting 06/02/2023 until 06/02/2023 End: 34-21-7952M-ray scoliosis 2 View (NON EOS)[facility] Service Area Work Phone: comment on above:Once for 1 Occurrences starting 04/24/2023 until 04/24/2023 End: 74-74-1281K-ray scoliosis 2 View (NON EOS)[facility] Service Area Work Phone: comwszq on above:Once for 1 Occurrences starting 07/10/2023 until 07/10/2023 End: 41-43-3801T-ray scoliosis 2 View (NON EOS)[facility] Service Area Work Phone: comepbh on above:Once for 1 Occurrences starting 08/14/2023 until 08/14/2023 End: 27-18-9042OW Skull to Coccyx 2 or 3 ViewsSIERRA VISTA HOSPITAL Service Area Work Phone: comhuuy on above:Once for 1 Occurrences starting 05/27/2024 until 05/27/2024[facility] Immunizations Immunization DateImmunizationNotesCare SoqivrpmCmzmhgtx97-51-9113ekmipwvsb, injectable,quadrivalent, preservative free, pediatricSif Lori Other [place] [employer] Other 271034-81-7554mkmkbozqr virus vaccine, unspecified formulationAhu [address] [place], [place] [address]10-14-2015influenza virus vaccine, unspecified formulationMajor Stevens MD Work Phone: [facility]10-14-2015influenza, injectable,quadrivalent, preservative free, pediatricSherif Lori Other [facility] [employer] Other Payers DatePayer CategoryPayerPolicy [id number] Care (Private)COMMERCIAL [employer] .[id number] 45-07-6202Eokh-[id number] Health Insurance1.2.840.215823.1.13.647.2.7.3.993147.77525-24-8714Jgrsyyb 1.2.840.725399.1.13.56.2.7.3.275[id number] 2.840.1.006837.3.57[id number] 2.16.840.1.074076.3.57[id number] 2.16.840.1.356397.3.57[id number] 2.16.840.1.320664.3.579.2.45361-39-8642Tfjucgq0725374 2.16.840.1.382025.3.57[id number] 2.16.840.1.073906.3.57[id number] 2.16.840.1.606985.3.579.[id number] 2.16.840.1.198012.3.57[id number] 2.16.840.1.376034.3.57[id number] 2.16.840.1.742709.3.57[id number] 2.16.840.1.935103.3.57[id number] 2..840.1.636188.3.57[id number] 2.16.840.1.589100.3.57[id number] 2..840.1.098514.3.579.2.[id number] 2.16.840.1.517760.3.57[id number] 2.16.840.1.039484.3.579.[id number] 2.16.840.1.565132.3.579.2.3[id number] 2.16.840.1.302462.3.579.2.446046-28-6399Rnpdkhk2504646 2.16.840.1.505496.3.57[id number] 2.16840.1.447002.3.579.2.239204-84-2818Chumwzj5497165 2.16840.1.485414.3.579.2.806736-62-3250Ijwssxy7382880 2.16840.1.472821.3.579.2.873709-79-8031Kovrmwj4976908 2.0.1.076203.3.579.2.049716-24-0795Rszkzdb5972534 2.0.1.615432.3.579.2.390156-78-5924Gvglbys3837706 2.0.1.272086.3.579.2.519576-38-4011Zizlgmu6888125 2.0.1.072994.3.579.2.995857-76-6709Rtqbxhd7531164 2..1.284050.3.579.2.893920-32-4316Aasfyaf4389410 2.0.1.811372.3.579.2.208331-17-8281Snjdvtk7984768 2.0.1.387020.3.579.2.947797-16-5725Euzsyvz0223690 2.0.1.642084.3.579.2.409460-95-5917Kxvhyct09807390 [id number] [id number] 2.16840.1.35[id number] 2..840.1.6[id number] 2..840.1.825273.3.579.2.531 [id number] 2.16.840.1.752365.3.579.2.531 Social History DateTypeDetailFacilityStart: 05-17-2023 End: 79-02-7456Iav Assigned At BirthUnTogus VA Medical CenterStart: 17-82-9642Dma Assigned At BirthWooster Community HospitalTobacco smoking status NHISTobacco smoking consumption unknownMetroHealthStart: 40-85-6082Mhw Assigned At BirthNot on fileMetroHealthStart: 04-14-2023 End: 96-06-2804Bjakknks to SARS-CoV-2 (event)Not sureUnHolzer Health System: 03-07-2023 End: 23-73-2820Tuuvkhn smoking status NHISNever smoked tobaccoUnTogus VA Medical CenterStjacksonville: 03-07-2023 End: 83-62-0487Iyenuvy use and exposureSmokeless tobacco non-userUnTogus VA Medical Center Work Phone: Start: 05-17-2023 End: 73-14-2004Kuptrkp intakeEx-drinker (finding)[facility] Work Phone: Start: 05-17-2023 End: 94-18-5307Bckojzs of Social functionUnTogus VA Medical CenterHow often to you have a drink containing alcohol?NeverElyria Memorial HospitalStjacksonville: 00-32-0524Qdr many standard drinks containing alcohol do you have on a typical day?Patient does not drinkUnTogus VA Medical Center Work Phone: In the past 12 months, was there a time when you were not able to pay the mortgage or rent on time?NoE[facility]ria [facility] Hospital Work Phone: are you now , [...] money to buy more.Never trueNOMS Healthcare Start: 62-02-6042Tfpmoqr Commentcaffeine: soda, chocolateNOMS HealthcareSexMale (finding)[facility] Medical Equipment Procedure CodeEquipment CodeEquipment Original TextEquipment IdentifierDates Modulus Tlif-A,[id number] 8 [id number]_lczPzbmv: 58-95-8549Ipbceej on above: Description: Per bill only jdr 06/03Moduls Tlif- [id number] 8 [id number]_fhq Start: 67-43-9106Oqdzwbw on above:Description: Per bill only jdr 06/03Infuse Bmp Small - [id number] - [id number]_oszEbutj: 39-23-0265Iseqz, Reline Lock, 5.5mm Open Tulip - [id number]_trvVpgxc: 32-97-7869Wmeqc, Reline-O, 7.5x50mm 2s Polyaxial - [id number]: 12-36-4475Ncoysw-O Conn, 5-6/5-6mm O-O Med - [id number]: 92-36-7710Ztzzp, Reline-O, 8.5x50mm 2s Polyaxial - [id number]_mfdVillq: 91-96-8573Qddgh, Reline-O, 8.5x80mm 2s Poly Iliac - [id number]_iezMcwjc: 29-38-2703Ebidj, Reline-O, 6.5x45mm 2s Polyaxial - [id number]_shgVdjok: 04-93-4367Ncyga, Reline-O, 7.5x45mm 2s Polyaxial - [id number]_ihaUwqox: 71-35-2521Pqnz Exp Ti Jaren 5.5mm 4+ [id number]_hywNsrxv: 16-80-800862md Offset [id number]_kfqVsceq: 85-88-9746Ehqkhay on above: Description: Per bill only jdr 06/03USE DIRECTED ONCE [id number]: 89-46-0500PKC DIRECTED ONCE [id number]: 43-73-7044Fipzz Sugar Diagnostic stripStart: 01-13-2025 Goals DatePatient GoalDesired Activity/StatePersonal health goal Functional Status AbncQkgksmbedxWswtgvAwvstzyu43-59-0258Odysa score [AUDIT-C]0 07/09/2024 11:29 AM EDT [place] [employer] MediaSaint Luke's Health SystemItbphydowj55-44-7983Xsq often do you have a drink containing alcohol?Never 07/09/2024 11:29 AM EDT flux - neutrinityhaleMaple Farm Media [facility] CenterMajwrbogyk73-18-6563Bomswftqcc statusPatient does not drink 07/09/2024 11:29 AM EDT [place] [employer], [employer] Patient does not drinkSaint Luke's Health SystemRuxelmswem36-60-6112Cxq often do you have 6 or more drinks on 1 occasion?Never 07/09/2024 11:29 AM EDT [place] [employer] [facility] CenterKidzillionsCitizens Memorial Healthcare Clinical Notes 12-26-2022 to 07-16-2024 Note Date & RbytRakxTnffyfdf32-75-7216 History of Present illness Narrative* Major Stevens MD - 07/16/2024 9:49 AM EDTAssociated Problem(s): Type 2 diabetes mellitus with hyperglycemia, without long-term current use of insulin ([facility]) Reports BS controlled and due for A1C. [...] home and monitor PRN. documented in this encounterSaint Luke's Health SystemUrtqpenrtz55-14-4738 History of Present illness Narrative* Isha Valentino MD - 05/27/2024 11:00 AM EST I just had the pleasure of seeing Mr. Baer back in the Neurosurgery Spine Clinic at the [facility]. He is a very pleasant 63 -year-old [...] the further treatment plan. Isha Valentino MD, [facility], FAANS Director - Minimally Invasive Spine Surgery [facility] Sustainable Landscape Architect of Neurological Surgery [facility] [employer] [place], [place] ---Some of this note was completed using [employer] voice recognition technology and sometimes the software misinterprets words. This may include unintended errors with respect to translation of words, typographical errors or grammar errors which may not have been identified prior to finalization of the chart note. Please take this into account when reading this note--- documented in this [facility] Work Phone: 1(886) 834-518010-22-2024 History of Present illness Narrative* Major Stevens [...] hyperglycemia, without long-term current use of insulin ([facility]) Reports BS controlled and last A1C 6.3. Stick to ADA diet and limit carbs. Essential hypertension ([facility]) BP improved and monitor PRN. Annual physical exam - Primary Reviewed labs. Discussed proper diet and regular aerobic exercise. Need aerobic exercise 5-6 days aweek for 30 minutes at a time. Smaller portions and limit total calories. Colonoscopy every 10 years. Tetanus every 10 years. Advised not to smoke. Discussed daily Aspirin therapy. documented in this encounterSaint Luke's Health SystemRehsplegew61-91-6828 History of Present illness Narrative* Isha Valentino MD - 08/14/2023 2:40 PM EDT I just had the pleasure of seeing Mr. Baer back in the Neurosurgery Spine Clinic at the [facility]. He is a very pleasant 63 -year-old [...] the further treatment plan. Isha Valentino MD, [facility], FAANS Director - Minimally Invasive Spine Surgery [facility] Sustainable Landscape Architect of Neurological Surgery [facility] [employer] [place], [place] ---Some of this note was completed using [employer] voice recognition technology and sometimes the software misinterprets words. This may include unintended errors with respect to translation of words, typographical errors or grammar errors which may not have been identified prior to finalization of the chart note. Please take this into account when reading this note--- documented in this [facility] Work Phone: 1(972) 181-176203-13-2024 Hospital course Narrative* Renetta Knox, FIBROUS PLASTERER-MANAGER DEVELOPMENTAL - 06/06/2023 4:56 PM EDT Discharge Diagnosis [...] Follow-Up Future Appointments Date Time Provider Department [place] 06/13/2023 10:45 AM NEUROSURGERY [facility] NURSE [id number] Academic 07/10/2023 11:40 AM Isha Valentino MD [id number] [facility] Renetta Knox, FIBROUS PLASTERER-MANAGER DEVELOPMENTAL documented in this [facility] Work Phone: [phone] 947-834103-13-2024 History of Present illness Narrative* Itzel Chavez, [...] (none) End of Session Communication: Bedside nurse, Paste Mixer, Physician Assessment Comment: 63 yo male with [...] steps (consecutively) with 1 rail and min 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 SUPERVISOR, 1 step at a time) Outcome Measures: [facility] Basic Mobility Turning from your back [...] mod -intensity by pt/ot referral sent to [facility] which is the Foc of patient [...] hand placement Stairs Stairs: No Outcome Measures: [facility] Basic Mobility Turning from your back [...] Status-Inpatient Payer- [facility] Potential Barriers: None ADOD: 06/07/2023 Patricio Salas RN TCC [phone] * Reji Bacon MD - 06/04/2023 5:22 [...] Shower/Tub: Tub/shower unit Prior Function: Level of Will: Independent with ADLs and functional transfers, Independent with homemaking with ambulation ADL Assistance: Independent Homemaking Assistance: Independent Ambulatory Assistance: Independent Vocational: (works for [employer]) Leisure: enjoys going to [employer] games Hand Dominance: Right Prior Function Comments: [...] prior to surgery 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 Extremities: RUE RUE : (AROM WFL) and LUE LUE: (AROM WFL) Outcome Measures: [facility] Daily Activity Putting on and taking [...] Jacques OTR/L Inpatient Occupational Therapist Rehab Office: [phone] * Donato Currie MD - 06/03/2023 3:08 [...] Prior Function Per Pt/Caregiver Report Level of Will: Independent with ADLs and functional transfers, Independent [...] verbal cues, Moderate tactile cues Outcome Measures: [facility] Basic Mobility Turning from your back [...] (OTR/L, OTD) Inpatient Occupational Therapist Rehab Office: [phone] * Destinee Pisano MD - 06/02/2023 9:48 AM EST Acute Pain Service Postop Pain HPI - Palliative: relieved with IV analgesics and regional local anesthetics Provocative: movement Quality: burning and aching Radiation: none Severity: 5/10 Timing: constant 24-HOUR OPIOID CONSUMPTION: BLOCK PLACER hydromorphone 0.8mg Hydromorphone 1mg Oxycodone 10mg Scheduled [...] per primary [place] [phone] ph [phone] Associated attestation - Amada Palomino MD - [...] will plan for downgrade Maintain drain Dc BLOCK PLACER/menezes No uprights AM labs PTOT-OK to work [...] their scheduled procedure and reviewed the patient's yiday-es-emnswjftz medications for accuracy. 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 none Morena Curtis [facility] Ambulatory and Retail Services Please reach out via Secure Chat for questions documented in this [facility] Work Phone: 1([phone]) 888-759403-13-2024 Plan of care note* Care Plan - [...] barriers include getting rest premedicating for activities. [facility]03-13-2024 Miscellaneous Notes* Care Plan - Charla [...] (B) Operative Note Date: 06/01/2023 OR Location: [facility] OR Name: Melvin Baer, : 1960, [...] Surgeons * Isha Valentino - Primary Resident/Fellow/Other Privacy Specialist: Surgeon(s) and Role: * Terrell Johnson MD [...] performed and the images transferred to the [employer] system for use in intraoperative image-guided computer-assisted [...] caps and final tightened using the torque charter coach driver and counter-torque.A third supporting jaren was placed on the left side using a nvjg-uo-ufuy connector between L2 and L3 level and [...] 8:39 AM EST Date: 06/01/2023 OR Location: [facility] OR Name: Melvin Baer, : 1960, [...] bone autograft and BMP with pelvic fixation. 24348 - MS ARTHRODESIS COMBINED TQ 1NTRSPC LUMBAR MS OSTEOTOMY SPINE PST/PSTLAT APPR 1 VRT SGM LMBR [09562] MS ARTHRODESIS PST/PSTLAT TQ 1NTRSPC EA ADDL NTRSPC [08302] MS STACK FACETECTOMY & FORAMOTOMY 1 VRT SGM LUMBAR [16365] MS POSTERIOR SEGMENTAL INSTRUMENTATION 3-6 VRT SEG [31713] MS PELVIC FIXATION OTHER THAN SACRUM [29696] MS ALLOGRAFT FOR SPINE SURGERY ONLY MORSELIZED [] MS AUTOGRAFT SPINE SURGERY LOCAL FROM SAME INCISION [] MS STEREOTACTIC COMPUTER ASSISTED PX SPINAL [78382] MS INSJ BIOMCHN DEV INTERVERTEBRAL DSC SPC W/ARTHRD [38642] MS ARTHRODESIS CMBN TQ 1NTRSPC EACH ADDITIONAL [29152] Surgeons * Isha Valentino - Primary Resident/Fellow/Other Privacy Specialist: Surgeon(s) and Role: * Terrell Johnson MD [...] 490 mL Specimen: No specimens collected Staff: Reel Cutter: Levi Gonzales RN; Kimberli Hastings RN Scrub [...] with scheduled follow up. documented in this [facility] Work Phone: 1([phone]) 387-317503-12-2024 Plan of care note* Care Plan - [...] address these barriers include use call light. [facility] Work Phone: [phone]) [phone] Plan of care note* Care Plan - [...] medication is given according to the order. [facility] Work Phone: [phone]) [phone] Note* Perioperative Nursing Note - Karen Shah RN - 06/01/2023 3:58 PM EST Agree with prior nurse assessment. Labs sent. [facility]03-08-2024 Note* Op Note - Isha Valentino MD - 06/01/2023 8:39 AM EST L4-5 and L5-S1 transforaminal lumbar interbody fusion with placement of interbody cage with decompression L3-4 posterior column osteotomy and L2-S1 instrumented fusion using local bone autograft and BMP with pelvic fixation. (B) Operative Note Date: 06/01/2023 OR Location: [facility] OR Name: Melvin Baer, : 1960, [...] Surgeons * Isha Valentino - Primary Resident/Fellow/Other Privacy Specialist: Surgeon(s) and Role: * Terrell Johnson MD [...] performed and the images transferred to the [employer] system for use in intraoperative image-guided computer-assisted [...] caps and final tightened using the torque charter coach driver and counter-torque.A third supporting jaren was placed on the left side using a phtn-vu-pqrc connector between L2 and L3 level and [...] marino portions of the procedure. Isha Valentino [facility] Work Phone: [phone]) [phone] Note* Brief Op Note - Terrell Johnson MD - 06/01/2023 8:39 AM EST Date: 06/01/2023 OR Location: [facility] OR Name: Melvin Baer, : 1960, [...] bone autograft and BMP with pelvic fixation. 67209 - MS ARTHRODESIS COMBINED TQ 1NTRSPC LUMBAR MS OSTEOTOMY SPINE PST/PSTLAT APPR 1 VRT SGM LMBR [86350] MS ARTHRODESIS PST/PSTLAT TQ 1NTRSPC EA ADDL NTRSPC [49310] MS STACK FACETECTOMY & FORAMOTOMY 1 VRT SGM LUMBAR [35495] MS POSTERIOR SEGMENTAL INSTRUMENTATION 3-6 VRT SEG [36544] MS PELVIC FIXATION OTHER THAN SACRUM [00725] MS ALLOGRAFT FOR SPINE SURGERY ONLY MORSELIZED [] MS AUTOGRAFT SPINE SURGERY LOCAL FROM SAME INCISION [] MS STEREOTACTIC COMPUTER ASSISTED PX SPINAL [56588] MS INSJ BIOMCHN DEV INTERVERTEBRAL DSC SPC W/ARTHRD [88664] MS ARTHRODESIS CMBN TQ 1NTRSPC EACH ADDITIONAL [26528] Surgeons * Isha Valentino - Primary Resident/Fellow/Other Privacy Specialist: Surgeon(s) and Role: * Terrell Johnson MD [...] 490 mL Specimen: No specimens collected Staff: Reel Cutter: Levi Gonzales RN; Kimberli Hastings RN Scrub Person: Lucian Castillo; Sam Khan Findings: excellent correction Complications: None; patient tolerated the procedure well. Disposition: PACU - hemodynamically stable. Condition: stable Specimens Collected: No specimens collected Attending Attestation: Isha Valentino [facility] Work Phone: [phone]) [phone] Consult note* Destinee Pisano MD - 06/01/2023 [...] pain disorder COVID-19 2020 recovererd Diabetes mellitus ([facility]) F/W PCP Hemoglobin A1c 8.0% or greater 03/08/2023 Last A1c=8.2, jardiance was added. Hypertension F/W PCP, not taking any medications Low back pain August 2018 Lumbar spondylosis Peripheral neuropathy bilateral feet R>L PONV (postoperative nausea and vomiting) Spinal stenosis scheduled for surgery with Dr. Valentino on 06/01/2023 Type 2 diabetes mellitus ([facility]) September 2008 Vision loss wears glasses Past [...] per primary [place] [phone] ph [phone] Associated attestation - Amada Palomino MD - 06/01/2023 10:58 AM EST I personally saw the patient, discussed risks and benefits, answered all questions, reviewed the chart and agree with the resident's plan. [facility] Work Phone: [phone]) 953-799603-08-2024 Consult note* Destinee Pisano MD - 06/01/2023 [...] pain disorder COVID-19 2020 recovererd Diabetes mellitus ([facility]) F/W PCP Hemoglobin A1c 8.0% or greater 03/08/2023 Last A1c=8.2, jardiance was added. Hypertension F/W PCP, not taking any medications Low back pain August 2018 Lumbar spondylosis Peripheral neuropathy bilateral feet R>L PONV (postoperative nausea and vomiting) Spinal stenosis scheduled for surgery with Dr. Valentino on 06/01/2023 Type 2 diabetes mellitus ([facility]) September 2008 Vision loss wears glasses Past [...] per [place] [phone] ph [phone] Associated attestation - Amada Palomino MD - 06/01/2023 10:58 AM EST I personally saw the patient, discussed risks and benefits, answered all questions, reviewed the chart and agree with the resident's plan. documented in this [facility] Work Phone: [phone] 115-847303-08-2024 Hospital Note* Hospital Course - Renetta Knox [...] Home Care. Discharged with scheduled follow up. [facility] Work Phone: [phone] Attending History and physical note* Terrell Johnson [...] healing and intraoperative findings. Isha Valentino MD, [facility] Security Solutions Architect of Neurological Surgery [facility] [employer] Attending Surgeon Director - Minimally Invasive Spine Surgery [place], [place] Source Note - Lama Ewelina MD [...] pain disorder COVID-19 2020 recovererd Diabetes mellitus ([facility]) F/W PCP Hemoglobin A1c 8.0% or greater 03/08/2023 Last A1c=8.2, jardiance was added. Hypertension F/W PCP, not taking any medications Low back pain August 2018 Lumbar spondylosis Peripheral neuropathy bilateral feet R>L PONV (postoperative nausea and vomiting) Spinal stenosis scheduled for surgery with Dr. Valentino on 06/01/2023 Type 2 diabetes mellitus ([facility]) September 2008 Vision loss wears glasses Past [...] Case seen and discussed with Dr. Alvarado. [facility] Work Phone: [phone]) [phone] History and physical note* Terrell Johnson MD [...] healing and intraoperative findings. Isha Valentino MD, [facility] Security Solutions Architect of Neurological Surgery [facility] [employer] Attending Surgeon Director - Minimally Invasive Spine Surgery [place], [place] Source Note - Lama Ewelina MD [...] Valentino on 06/01/2023 Type 2 diabetes mellitus ([facility]) September 2008 Vision loss wears glasses Past [...] Decompression at L4/5 and L5/S1 with Dr. Valention secondary to spinal stenosis. PMHX includes PONV, [...] discussed with Dr. Alvarado. documented in this [facility] Work Phone: [phone]) 388-702001-03-2024 Evaluation note* Encounter Date Diagnosis Assessment Notes [...] MRI of the lumbar spine from 12/15/2022 eyho-qs-tvkk with patient and and which shows worsening [...] Mar,Levoscoliosis of lumbar spine (ICD-10 - M41.86) [place] [employer] Other 11-27-2023 Evaluation note* Encounter Date Diagnosis [...] - G89.29) Continue with current treatment plan [facility] [employer] Other [id number] Procedure noteCoshocton [facility]10-25-2023 Procedure noteCoshocton Regional Medical Center10-03-2023 Evaluation note* Encounter Date Diagnosis [...] (ICD-10 - G89.29) Follow up after procedure. [facility] Other Evaluation noteNo InformationNort [employer] Other Evaluation noteNo assessment information available [facility] Work Phone: Evaluation note* Diagnosis Back pain, unspecified back location, unspecified back pain laterality, unspecified chronicity- Primary documented in this encounter [facility]* Diagnosis Spinal stenosis of lumbar region with neurogenic claudication documented in this encounter [facility] Work Phone: Evaluation note* Diagnosis [...] with neurogenic claudication documented in this encounter [facility] Work Phone: Evaluation note* Diagnosis [...] Constipation due to pain medication Psoriatic arthritis ([facility]) Psoriatic arthropathy Spinal stenosis of lumbar region with neurogenic claudication Sagittal plane imbalance Other curvatures of spine associated with other conditions Scoliosis of thoracolumbar region due to degenerative disease of spine in adult Lumbar foraminal stenosis Lumbar radiculopathy, acute Lumbar stenosis with neurogenic claudication documented in this encounter [facility] Work Phone: [phone] note* Diagnosis Status post spinal surgery Other postprocedural status documented in this encounter [facility] Work Phone: [phone] note* Diagnosis Postoperative follow-up- Primary Follow-up examination, following unspecified surgery documented in this encounter [facility] Work Phone: [phone] note* Diagnosis S/P lumbar spinal fusion Arthrodesis status Scoliosis of thoracolumbar region due to degenerative disease of spine in adult documented in this encounter [facility] Work Phone: [phone] note* Diagnosis Type 2 diabetes mellitus with [...] Unspecified essential hypertension documented [facility] encounter [facility] HealthcareEvaluation [facility]* Diagnosis S/P spinal surgery- Primary Other postprocedural status documented in this encounter [facility] Work Phone: Evaluation note* Diagnosis S/P lumbar spinal fusion Arthrodesis status Scoliosis of thoracolumbar region due to degenerative disease of spine in adult documented in this encounter [facility] Work Phone: Evaluation note* Diagnosis Type [...] Date Annual physical exam acuteOctober 2024 9:26am [facility] Work Phone: History general Narrative - Reported* Type Description Date Medical History DM Medical HistoryarthritisSurgical Historyarthroscopic right knee D1Kyxdeevj HistoryProcedure:eye exam;Disease:Diabetes mellitus, type 2 without comp.2013 Surgical HistorycolonoscopySurgical HistoryProcedure:Arthroscopy knee;Disease: 2004Surgical HistoryProcedure:Meds;Disease:Psoriatic ArthitisSurgical History Procedure:removed;Disease:Groin cystSurgical HistoryColonoscopy, Internal Hemorrhiods- Dr. Solorio10/02/2014Hospitalization Historysee above [facility] Other Reason for referral (narrative)* Reason *Waiting for appt Please refer to Dr Dumont for surgical evaluation Diagnosis 1 Lumbar radiculopathy (M54.16) Referral Organization [facility] Referring Provider First Name Abel Referring Provider Last Name Lori Referring Provider Specialty Pain Medici ne Referred Organization [facility] Ne urosurgery Referred Provider David Dumont Referred Address [address] [address] ,[place], [place],[address] Referred Provider Specialty Neurological Surgery Referral Priority Routine General Notes Bk Hansen 02/19 01:27:01 PM > Received today, sent P2P DCITS [facility] [employer] Other Reason for referral (narrative)No reason for referral information availableTrinity Health System [facility] Work Phone: Reason for visit Narrativereferred by Dr. Sandoval surgical evaluation, lumbar radiculopathyNRockland Psychiatric Center [employer] Other reason for visit Narrative* Imaging (Routine) - Pending ReviewSpecialtyDiagnoses / ProceduresReferred By ContactReferred To ContactRadiology Diagnoses S/P lumbar spinal fusion Scoliosis of thoracolumbar region due to degenerative disease of spine in adult Procedures XR full spine 2 view scoliosis X-ray scoliosis 2 View ([place] EOS) [place] [id number] [address] Department [place] [address] Phone: tel: fax: Referral IDStatusReasonStart DateExpiration DateVisits RequestedVisits [id number] Review Perform Procedure [facility] Work Phone: Summary Purpose Family History [...] Back Pain Chief Complaint M54.16 Back Pain 16065 Chief Complaint Admit Date Established Patient January 14, 2025 9 :26am Reason for Visit Admit Date Annual physical exam January 14, 2025 9:26am Reason for Referral SpecialtyDiagnoses / ProceduresReferred By ContactReferred To [facility] S/P lumbar spinal fusion Scoliosis of thoracolumbar region due to degenerative disease of spine in adult Procedures X-ray scoliosis 2 View ([place]) [place] [address] [facility] Department [place] [address] Referral IDStatusReasonStjacksonville DateExpiration DateVisits RequestedVisits [id number] Perform Procedure /[id number] / ProceduresReferred By ContactReferred To [facility] Diagnoses Status post spinal surgery Procedures X-ray scoliosis 2 View ([place] EOS) [place] [address] Department [place] [address] Referral IDStatusReasonStart DateExpiration DateVisits RequestedVisits [id number] Perform Procedure /[id number] / ProceduresReferred By ContactReferred To [facility] Diagnoses Lumbar [place], [place] [address] [address] Department [place] [address] Referral IDStatusReasonStart DateExpiration DateVisits RequestedVisits [id number] Specialty Services Required /[id number] / ProceduresReferred By Contact Referred To Contact Diagnoses Surgery, elective Preop testing Preoperative general physical examination Procedures ECG 12 [place] [address] [address] Department of Anesthesiology/[place] [address] Referral IDStatusReasonStart DateExpiration DateVisits RequestedVisits [id number]/22/20242/633002PvvugeweuPcydejcwg / Procedures Referred By ContactReferred To ContactRadiology Diagnoses Spinal stenosis of lumbar region with neurogenic claudication Procedures X-ray scoliosis 2 View (NON EOS) [place] [address] Department [place] [address] Referral IDStatusReasonStjacksonville DateExpiration DateVisits RequestedVisits [id number] Perform Procedure /[id number] / ProceduresReferred By ContactReferred To ContactRadiology Diagnoses Back pain, unspecified back location, unspecified back pain laterality, unspecified chronicity Procedures DOWNLOAD POWERSHARE IMAGES TO Dino Syed MD [address] [place] [address] [facility] [address] [place] [address] Referral IDStatusCaylaWhitelaw DateExpiration DateVisits RequestedVisits [id number]/18/20241/ Additional Source Comments (unrecognized sect ion and content) No Status Records FoundNo Status Records FoundNo Status Records FoundNo Status Records FoundNo Status Records FoundNo Status Records FoundNo Status Records FoundNo Status Records FoundNo Status Records Found INFORMATION SOURCE (unrecogn ized section and content) DATE CREATED AUTHOR 07/22/2022 [facility] DATE CREATED AUTHOR AUTHOR'S ORGANIZ ATION 02/19/2023 [facility] DATE CREATED AUTHOR AUTHOR'S ORGANIZ ATION 05/26/2023 [facility] DATE CREATED AUTHOR AUTHOR'S ORGANIZ ATION 06/12/2023 [facility] DATE CREATED AUTHOR AUTHOR'S ORGANIZ ATION 12/04/2023 [facility] DATE CREATED AUTHOR AUTHOR'S ORGANIZ ATION 06/01/2024 [facility] DATE CREATED AUTHOR AUTHOR'S ORGANIZ ATION 07/17/2024 [facility] DATE CREATED AUTHOR AUTHOR'S ORGANIZ ATION 01/21/2025 [facility] REASON FOR VISIT (unrecogniz ed section and content) ReasonCommentsFollow-qi3kGjmw PainFlare up in lower backReasonCommentsAnnual ExamStates he's here for an annual examEverything is going goodSpecialty Diagnoses / ProceduresReferred By ContactReferred To ContactRadiology Diagnoses S/P lumbar spinal fusion Scoliosis of thoracolumbar region due to degenerative disease of spine in adult Procedures X-ray scoliosis 2 View (NON EOS) [place] [address] [address] Department [place] [address] Referral IDStatusReasonWhitelaw DateExpiration DateVisits RequestedVisits [id number] Perform Procedure [id number] / ProceduresReferred By ContactReferred To ContactRadiology Diagnoses Status post spinal surgery Procedures X-ray scoliosis 2 View (NON EOS) [place] [address] [address] Department of Neurological Surgery [place] [phone] Referral IDStatusReasonStjacksonville DateExpiration DateVisits RequestedVisits [id number] Perform Procedure [id number] / ProceduresReferred By ContactReferred To Contact Diagnoses [...] Lumbar stenosis with neurogenic claudication [M48.062] Procedures MS ARTHRODESIS COMBINED TQ 1NTRSPC LUMBAR MS OSTEOTOMY SPINE PST/PSTLAT APPR 1 VRT SGM LMBR MS ARTHRODESIS PST/PSTLAT TQ 1NTRSPC EA ADDL NTRSPC MS STACK FACETECTOMY & FORAMOTOMY 1 VRT SGM LUMBAR MS POSTERIOR SEGMENTAL INSTRUMENTATION 3-6 VRT SEG MS PELVIC FIXATION OTHER THAN SACRUM MS ALLOGRAFT FOR SPINE SURGERY ONLY MORSELIZED MS AUTOGRAFT SPINE SURGERY LOCAL FROM SAME INCISION MS STEREOTACTIC COMPUTER ASSISTED PX SPINAL MS INSJ BIOMCHN DEV INTERVERTEBRAL DSC SPC W/ARTHRD MS ARTHRODESIS CMBN TQ 1NTRSPC EACH ADDITIONAL L4-5 and L5-S1 transforaminal lumbar interbody fusion with placement of interbody cage with decompression L3-4 posterior column osteotomy with L2-3 laminectomy and facetectomy and L2-S1 instrumented fusion using local bone autograft and BMP [place]. [place] [address] [address] Department [place] [address] [facility] [place] [address] [place] [address] Referral [facility]Status[facility] DateExpiration DateVisits RequestedVisits [id number] / ProceduresReferred By ContactReferred To Contact Diagnoses Surgery, elective Preop testing Preoperative general physical examination Procedures [place] 12 [place] [address] [address] Department of Anesthesiology/[place] [address] Referral IDStatusReasonStjacksonville DateExpiration DateVisits RequestedVisits [id number]/22/20242/884882SvelxznmeUwhragvaw / Procedures Referred By ContactReferred To ContactRadiology Diagnoses Spinal stenosis of lumbar region with neurogenic claudication Procedures X-ray scoliosis 2 View (NON EOS) [place] [address] [address] Department of Neurological Surgery [place] [phone] Referral IDStatusReasonStart DateExpiration DateVisits RequestedVisits [id number] Perform Procedure Neurosurgery office noteF/U AFTER CAUDAL [...] DateEnd Date Major Stevens MD [address] [place], [place] [address] PCP - [facility] Medicine05/17/23Team MemberRelationshipSpecialtyStart DateEnd Date Major Stevens MD [address] [place], [place] [address] PCP - [facility] Medicine05/17/23Team MemberRelationshipSpecialtyStart DateEnd Date Major Stevens MD [address] [place], [place] [address] [facility]05/17/23Team MemberRelationshipSpecialtyStart DateEnd Date Major Stevens MD [address] [place], [place] [address] PCP - GeneralFamily Medicine05/17/23Team MemberRelationshipSpecialtyStart DateEnd Date Major Stevens MD [address] [place], [place] [address] PCP - GeneralFamily Medicine05/17/23Team MemberRelationshipSpecialtyStart DateEnd Date Major Stevens MD [address] [place] [address] PCP - GeneralFamily Medicine04/16/23Team MemberRelationshipSpecialtyStart DateEnd Date Major Stevens MD [address] [place] [address] PCP - GeneralFamily Medicine04/16/23Team MemberRelationshipSpecialtyStart DateEnd Date Major Stevens MD [address] [place] [address] PCP - GeneralFamily Medicine04/16/23Team MemberRelationshipSpecialtyStart DateEnd Date Major Stevens MD [address] [place] [address] PCP - GeneralFamily Medicine04/16/23Team MemberRelationshipSpecialtyStart DateEnd Date Major Stevens MD [address] [place], [place] [address] PCP - GeneralFamily Medicine05/17/23Team MemberRelationshipSpecialtyStart DateEnd Date Major Stevens MD [address] [place] [address] PCP - [facility] Medicine05/17/23Team MemberRelationshipSpecialtyStart DateEnd Date Major Stevens MD [address] [place] [address] PCP - [facility]04/16/23Team MemberRelationshipSpecialtyStart DateEnd Date Major Stevens MD [address] [place] [phone] PCP - [facility]04/16/23Team MemberRelationshipSpecialtyStart DateEnd Date Major Stevens MD [address] [place] [phone] PCP - [facility]04/16/23Team MemberRelationshipSpecialtyStart DateEnd Date Major Stevens MD [address] [place] [address] PCP - [facility]04/16/23 Team Status: Active Member Role/Relationship Status Dates Major Stevens MD Primary Care Provider Active Team Status: Inactive Member Role/Relationship Status Dates Major Stevens MD Primary Care Provider Active S tart: January 14, 2025 End: January 14, 2025[facility] DENNIS Stevensttending ProviderActiveStart: January 14, 2025 End: January 14, 2025Team MemberRelationshipSpecialtyStart DateEnd Date Major Stevens MD PCP - [facility] Medicine04/16/23 Scheduled Active and Recently Administ ered [...] DAWN) * 0151 (Given - Provider: Charla Pedro, DAWN) * 0813 (Given - Provider: Roseanne [...] Pedro, DAWN) * 0849 (Given - Provider: eFrnanda Zapata RN) * 1500 (Not Given - [...] Sun06/01/23 at 1931, Phase II/On Unit, HOLD BLOCK PLACER Infusion and notify H.O. immediately ondansetron (Zofran) [...] 1932, Phase II/On Unit, 2nd Line. Give MS if patient is unable to take orally. If inadequate response gmyhja28 minutes, proceed to next-line agent for same [...] 1932, Phase II/On Unit
2nd Line. Give MS if patient is unable to take orally. [...] BE BASED ON THE PRIMARY CLINICAL RECORDS. [employer] provides no warranty or guarantee of the accuracy or completeness of information in this document.
== END 2025-02-26 10:52 | disposition home or self-care (01) ==
LOC: PST 10:51
PROVIDERS: PCP Family Medicine; Visit Provider Surgery
DX: Z01.818 Encounter for other preprocedural examination (principal); Z12.11 Encounter for screening for malignant neoplasm of colon

== ENCOUNTER 2025-03-04 07:49 | Day surgery (SDC) | payer OTHER, SELFPAY ==
--- NOTE | 2025-03-04 | OP_ITS ---
OPERATION DATE: 03/04/2025 PREOPERATIVE DIAGNOSIS: Colorectal screening. POSTOPERATIVE DIAGNOSIS: Normal colonoscopy to cecum. PROCEDURE: Colonoscopy to cecum. SURGEON: Tomy Bee M.D. ANESTHESIA: Monitored anesthesia care. ESTIMATED BLOOD LOSS: Zero. INDICATIONS AND CONSENT: Patient is a 64-year-old male, presents for colorectal screening. Indications, risks, benefits, alternatives of proceeding with colonoscopy were explained extensively to the patient, including the risks of bleeding, colon perforation or anesthetic complications. All of his questions were answered. Informed consent was obtained. PROCEDURE: Patient brought to the operating room, placed in the left lateral decubitus position. Monitored anesthesia care was provided. Rectal exam was performed which showed no masses or blood. The scope was inserted into the anal canal. Under direct visualization was advanced. It was advanced to the cecum where cecal markings were clearly identified. There was noted to be a good prep. Upon withdrawal of the scope, mucosal surfaces were carefully examined. There were no mass lesions or polyps. No inflammatory changes or ulcerations. No significant diverticulosis. The scope was retroflexed in the anal canal. There was no significant hemorrhoidal disease. The scope was then withdrawn. Patient tolerated procedure well, was sent to recovery room in good condition. Follow up colonoscopy should be in 10 years. CC: Major Garcia M.D. GABE
--- OUTSIDE RECORDS SUMMARY | 2025-03-04 07:52 | XMS_ITS | Clinical Summary ---
Author Organization [facility] Address [address] [place] [address] Phone Care Team Providers Care Wool Hat Flanger Name Role Phone Major Garcia MD Primary [...] Active Problems ProblemNoted DateDiagnosed DateLumbar radiculopathy, right06/01/2023Lipoprotein goeeennwpm79/05/2024hronic pain04/30/20236195Ibhmquxhr45/05/2024Muscle pain 04/30/2023ain of right hip joint04/30/2023soriasis with ihfmbtfapaj06/05/2024 Iliac bone pain04/30/2023Spinal stenosis of lumbar region with neurogenic dnixzuqtzzox67/30/2024Sagittal plane xcikysbau08/30/2024Scoliosis of thoracolumbar region due to degenerative disease of spine in adult04/24/2023 Lumbar foraminal ilrqwiaz54/30/2024Lumbar radiculopathy, acute04/24/2023Lumbar stenosis with neurogenic pyrvzhbyxmad85/30/2024H/O Spinal wuptzqx4504/24/2023 Flexural byojdrkgi92/22/2024 Overview (04/30/2023): Last Assessment & Plan: Rash appears to be psoriasis and treat with prednisone. Use steroid cream PRN. Lumbar wuxnuadbtea49/13/2023 Overview (04/30/2023): Last Assessment & Plan: Pain unchanged and follow up with surgeon. Primary jrllmxriqvhz30/13/2023 Overview (04/30/2023): Last Assessment & Plan: BP controlled and monitor PRN. Type 2 diabetes mellitus with hyperglycemia, without long-term current use of hrkyiff1303/07/2023 Overview (04/30/2023): Last Assessment & Plan: BS improved with jardiance and continue. Stick to ADA diet and limit carbs. Pain in left leg01/06/2023ain in right hip10/16/2022Other long-term (current) drug lijhnnf74/29/2023Psoriatic ppknnhdichg31/26/2023oorly controlled diabetes qmczzvib95/23/2022 Resolved Problems ProblemNoted DateDiagnosed DateResolved DateMalignant neoplasm [...] Last Filed Vital Signs Vital SignReadingTime TakenCommentsBlood Bezwgpbg024/9405/27/2024 10:45 AM EST Zugid245805/27/2024 10:45 AM MZYHsiopxngisv61.7 ??C (96.3 ??F)05/27/2024 10:45 AM ESTRespiratory Qnkx764805/27/2024 10:45 AM ESTOxygen Jkkwgzzlyn19%06/06/2023 4:00 PM EDTInhaled Oxygen Concentration--Oufjhs58.5 kg (204 lb)05/27/2024 10:45 AM SRGMdnvvd629.8 cm (5' 10 )08/14/2023 2:31 PM EDTBody Mass Index29.27008/14/2023 2:31 PM EDT Plan of Treatment DateTypeDepartmentCare Team (Latest Contact Info)Tdijlklrfzn86/03/2026 11:00 AM ESTOffice Visit [facility] [address] [facility] [address] [place] [address] [place] [address] [address] Department of Neurological Surgery [place], [place] [phone] Health MaintenanceDue DateLast DoneCommentsCT Ccuocmtukamd25/21/1963Diabetes: Urine Protein Agrmdshlv43/21/1963FIT-DNA (Cologuard)1962FIT1962HIV Gqbkfiffy30/21/1963Lipid Panel1962 8223Gxybosyahtpgn81/21/1963Yearly Adult Wnqbuwtr15/21/1963MMR Vaccines (1 of 1 - Standard series)1963Diabetes: Retinopathy Ivhuxmqka21/21/1973Hepatitis C Jtutqwmkq73/21/1981Pneumococcal Vaccine (1 of 2 - PCV)1981DTaP/Tdap/Td Vaccines (1 - Tdap)1984PSA Prostate Cancer Hluiccgvi86/21/2013RSV High Risk: (Elderly (60+) or Population) (1 - Risk 50-74 years 1-dose series)2012Zoster Vaccines (1 of 2)2012COVID-19 Vaccine (2 - Bev risk series)/12/2020 Diabetes: Hemoglobin A1C07/23//0726Ltdgbtgycmq36/10/202507/12/2014 Colorectal Cancer Kthsufjik57/10/2025Influenza Vaccine (#1), 01/06/2015HIB VaccinesAged OutNo longer eligible [...] IdentifierShelf Expiration DateModel / Serial / LotModulus Tlif-A,[id number] 8 Degree Implanted:Qty: 1 on 06/01/2023 by [facility]ageBilateral: Spine LumbarNUVASIVE [id number] / / [id number]:Per bill only jdr 06/03Moduls Tlif- [id number] 8 Degree Implanted:Qty: 1 on 06/01/2023 by [facility]CageBilateral: Spine LumbarNUVASIVE [id number] / / [id number]:Per bill only jdr 06/03Infuse Bmp Small - [id number] - [id number] Implanted:Qty: 1 on 06/01/2023 by [facility] CenterGraftN/A: Spine LumbarMEDTRONIC INC:SOFAMOR [id number] / [id number] / Screw, Reline Lock, 5.5mm Open Tulip - [id number] Implanted:Qty: 16 on 06/01/2023 by [facility]Ne[facility] Interventional ImplantBilateral: Spine LumbarNUVASIVE [id number] / / Screw, Reline-O, 7.5x50mm 2s Polyaxial - [id number] Implanted:Qty: 1 on 06/01/2023 by [facility]crewBilateral: Spine LumbarNUVASIVE [id number] / / Reline-O Conn, 5-6/5-6mm O-O Med - [id number] Implanted:Qty: 1 on 06/01/2023 by [facility] CentercrewBilateral: Spine LumbarNUVASIVE [id number] / / Screw, Reline-O, 8.5x50mm 2s Polyaxial - [id number] Implanted:Qty: 1 on 06/01/2023 by [facility] CentercrewBilateral: Spine LumbarNUVASIVE [id number] / / Screw, Reline-O, 8.5x80mm 2s Poly Iliac - [id number] Implanted:Qty: 2 on 06/01/2023 by [facility] CentercrewBilateral: Spine LumbarNUVASIVE [id number] / / Screw, Reline-O, 6.5x45mm 2s Polyaxial - [id number] Implanted:Qty: 5 on 06/01/2023 by [facility] CentercrewBilateral: Spine LumbarNUVASIVE [id number] / / Screw, Reline-O, 7.5x45mm 2s Polyaxial - [id number] Implanted:Qty: 4 on 06/01/2023 by [facility] CentercrewBilateral: Spine LumbarNUVASIVE [id number] / / Unid Exp Ti Franklin 5.5mm 4+ Lv Implanted:Qty: 2 on 06/01/2023 by [facility] Centerpinal HardwareN/A: Spine LumbarMEDTRONIC [id number] / [id number] / 20mm Offset Open Implanted:Qty: 1 on 06/01/2023 by [facility] Centerpinal HardwareBilateral: Spine LumbarNUVASIVE [id number] / / Description:Per bill only jdr 06/03 Procedures Procedure NamePriorityDate/TimeAssociated DiagnosisCommentsHEMOGLOBIN H4YTpkhqqw 04/24/2023 11:24 AM EST Spinal stenosis of lumbar region with neurogenic claudication from Last 3 Months or Most Recently Relevant to Health Maintenance Results * (ABNORMAL) Hemoglobin A1c (04/24/2023 11:24 AM EST)ComponentValueRef RangeTest MethodAnalysis TimePerformed AtPathologist SignatureHemoglobin A1C6.8(H)see below %04/25/2023 12:39 AM [facility] LABEstimated Average Hczdvtd625Uqq Established mg/dL04/25/2023 12:39 AM [facility] LABSpecimen (Source)Anatomical Location / LateralityCollection Method / VolumeCollection TimeReceived Time BloodVenous blood specimen / UnknownVenipuncture / Dwpbixg7604/24/2023 11:24 AM EST04/24/2023 11:24 AM EST Narrative [facility] - 04/25/2023 12:39 AM EST Diagnosis of Diabetes-Adults Non-Diabetic: < or = 5.6% Increased risk for developing diabetes: 5.7-6.4% Diagnostic of diabetes: > or = 6.5% Monitoring of Diabetes Age (y)....................... Therapeutic Goal (%) Adults: >18.........................<7.0 Pediatrics: 13-18...................<7.5 Pediatrics: 7-12....................<8.0 Pediatrics: 0-6..................... 7.5-8.5 [place] [employer]. Diabetes Care 33(S1), Mar 2009 Authorizing ProviderResult TypeResult StatusJose Roberto Pineda MDLAB BLOOD ORDERABLESFinal ResultPerforming OrganizationAddressCity/State/ZIP CodePhone Number [facility] [address] [facility] [id number] [place] [phone] from Last 3 Months or Most Recently Relevant to Health Maintenance Additional Health Concerns Active ProblemsNoted DateDiagnosed DatePatient has spine ikuhutp2104/24/2023 Advance Directives For more information, please contact: [phone] (Available ) * Full Code (Latest Code Status on File) Date ActivatedDate InactivatedComments06/01/2023 7:32 PMQuestionAnswerCommentsPlan of Care:* Code Status Discussion Completed Decision Maker:* Patient Care Teams Team MemberRelationshipSpecialtyStart DateEnd Date Major Garcia MD [address] [place] [address] [facility]05/17/23
--- OUTSIDE RECORDS SUMMARY | 2025-03-04 07:52 | XMS_ITS ---
Author Organization [facility] Address [address] [place] [address] Phone Care Team Providers Care Server Manager Name Role Phone Major Garcia MD Primary Care Provider + Active Problems ProblemNoted DateDiagnosed DateLumbar radiculopathy, right06/01/2023Lipoprotein phlcgqkuns77/05/2024hronic pain04/30/20232158Pivpanryi40/05/2024Muscle pain 04/30/2023ain of right hip joint04/30/2023soriasis with yljfyggdkvs96/05/2024 Iliac bone pain04/30/2023Spinal stenosis of lumbar region with neurogenic dqaihbumbayw13/30/2024Sagittal plane dsbpmiokc41/30/2024Scoliosis of thoracolumbar region due to degenerative disease of spine in adult04/24/2023 Lumbar foraminal uthrofjr55/30/2024Lumbar radiculopathy, acute04/24/2023Lumbar stenosis with neurogenic xydzdfezzsuq79/30/2024H/O Spinal lqqphte6204/24/2023 Flexural /22/2024 Overview (04/30/2023): Last Assessment & Plan: Rash appears to be psoriasis and treat with prednisone. Use steroid cream PRN. Lumbar /13/2023 Overview (04/30/2023): Last Assessment & Plan: Pain unchanged and follow up with surgeon. Primary hglhgonhrmiu78/13/2023 Overview (04/30/2023): Last Assessment & Plan: BP controlled and monitor PRN. Type 2 diabetes mellitus with hyperglycemia, without long-term current use of eeasmko4603/07/2023 Overview (04/30/2023): Last Assessment & Plan: BS improved with jardiance and continue. Stick to ADA diet and limit carbs. Pain in left leg3Pain in right hip10/16/2022Other silk screen printer (current) drug mjcauas44/29/2023Psoriatic btsnncrzykk63/26/2023Poorly controlled diabetes cwuzhcnj31/23/2022 Current Treatment and Therapy Plans No current plan information found. Past Treatment and Therapy Plans No past plan information found. Lifetime Dose Tracking * ChemicalLifetime DoseAutomatic EntryManual EntryAir Kerma2,173.322 mGy 2,173.322 mGy0 mGy Resolved Problems ProblemNoted DateDiagnosed DateResolved DateMalignant neoplasm of prostate
--- OUTSIDE RECORDS SUMMARY | 2025-03-04 07:52 | XMS_ITS | Clinical Summary ---
Author Organization [facility] Address [address] [place] [address] Care Team Providers Care Billposter Name Role Phone Major Garcia MD Primary Care Provider [phone] Allergies No known active allergies Medications MedicationSigDispense [...] therapy. Encounter for long-term (current) use of acpzhtnqirw54/24/2024Screening PSA (prostate specific antigen)10/17/2023Obesity (BMI 30-39.9)10/17/2023Flexural lkrurellj49/22/2024 Assessment & Plan (10/17/2023 9:52 AM EDT): Increased rash and use steroid cream. Assessment & Plan (07/16/2023 9:50 AM EDT): Rash improved and use steroid cream PRN. Assessment & Plan (04/16/2023 3:14 PM EST): Rash appears to be psoriasis and treat with prednisone. Use steroid cream PRN. Type 2 diabetes mellitus with hyperglycemia, without long-term current use of qofpttk7703/07/2023 Assessment & Plan (07/16/2024 9:49 AM EDT): [...] to ADA diet and limit carbs. Psoriatic wivzgxpup36/13/2023 Assessment & Plan (07/16/2023 9:50 AM EDT): Pain stable and continue methotrexate. Follow with specialists. Lumbar vmegcehgvzf05/13/2023 Assessment & Plan (07/16/2024 9:48 AM EDT): [...] abnormal MRI. Follow up with surgeon. Essential sgqlikjejplj91/13/2023 Assessment & Plan (07/16/2024 9:48 AM EDT): [...] drink = 0.6 oz pure alcohol)caffeine: soda, [id number] Health LiteracyAnswerDate Recorded How often do you [...] Twice a week07/09/2024How often do you attend buddhism or methodist services?1 to 4 times per year07/09/2024Do you belong to any clubs or organizations such as buddhism groups, unions, [employer] or athletic groups, or school groups?No 07/09/2024How often do you attend meetings of the clubs or organizations you belong to?Never07/09/2024re you , , , , never , or living with a partner?Vvvgvgk5107/09/2024UDIT-CAnswerDate RecordedQ1: How often do you have a [...] food, housing, medical care, and heating?Not very hard07/09/2024[facility] [place] [facility] - Occupational Stress QuestionnaireAnswerDate [...] sleep or slept in ashelter (including now)?Patient kpgghov4302/28/2023Housing Stability Vital SignAnswerDate RecordedIn the last 12 months, was there a time when you were not able to pay the mortgage or rent on time?No07/09/2024In the past 12 months, how many times have you moved where you were living?t any time in the past 12 months, were you homeless or living in a retirement (including now)?No 07/09/2024Sex and Gender InformationValueDate RecordedSex Assigned at BirthNot on fileLegal IvkVmag4506/07/2022 7:00 PM EDTGender IdentityNot on fileSexual OrientationNot on file Last Filed Vital Signs Vital SignReadingTime TakenCommentsBlood Gcizhodb283/7204 9:15 AM EDT Jgzvz0540 9:15 AM NNABskfaljmrbg32.4 ??C (97.5 ??F)07/16/2024 9:15 AM EDTRespiratory Qdlz657007/16/2024 9:15 AM EDTOxygen Sfhelcnzgu76%07/16/2024 9:15 AM EDTInhaled Oxygen Concentration--Eyzkbf41.3 kg (208 lb)07/16/2024 9:15 AM EDT Jmqyqq184.8 cm (5' 10 )07/16/2024 9:15 AM EDTBody Mass Index29.8404/ 9:15 AM EDT Plan of Treatment Not on file Insurance Care Teams Team MemberRelationshipSpecialtyStart DateEnd Date Major Garcia MD PCP - GeneralFamily Medicine04/16/23
--- OUTSIDE RECORDS SUMMARY | 2025-03-04 07:54 | XMS_ITS | CCD ---
Author Organization [facility] Care Team Providers [facility] Name Role Phone VALERIE, DR RANDALL Attending [...] Care Provider WAI Barney Sully Attending Provider [phone] MD Abel Sandoval Attending Provider [phone] MD Major Stevens Primary Care Provider [employer] Sully Attending Provider MD Abel Sandoval Attending Provider [phone] Abel Sandoval Admitting Unavailable Abel Sandoval Attending Unavailable Major Stevens Primary Care Unavailable Barney, Sully Admitting Unavailable Barney, Sully Attending Unavailable Major Stevens Primary Care Unavailable Lori, Abel S Admitting Unavailable Lori, Abel S Attending Unavailable Major Stevens Primary Care Unavailable Olri, Abel S Admitting Unavailable Lori, Abel S [...] Unavailable Major Stevens MD Primary Care Provider [phone] Major Stevens MD Attending Provider [phone] Tomy MINA Attending Unavailable MAJOR STEVENS Referring Unavailable Major Stevens MD Primary Care Provider [phone] Medications Current Medications MedicationDrug Class(es)DatesSig (Normalized)Sig (Original)acetaminophen 325 mg oral tablet (8 sources)Start: 33-70-9262bahkzpysitqed (Tylenol) 325 mg tablet Indications: Postoperative pain Take 2 tablets (650 mg) by mouth every 6 hours. Take every 6 hours scheduled while having pain then take only as needed for Mild pain 06/06/2023 ActiveStart: 93-93-7551bojk 1 tablet by mouth every six uqpvv487 mg, oral, Every 6 hours, First dose on Sun06/01/23 at 2000, Phase II/On Unit If ordered PRN for pain, nurse is permitted to administer this medication for higher pain scores based on patient preference? Yes End: 35-88-7898stgp 2 tablets by mouth twice dailyacetaminophen (Tylenol) 500 mg tablet Take 2 tablets (1,000 mg) by mouth 2 times a day. Patient takes #2 tablets 2-3 times a day as needed 0 06/06/2023 Discontinued (Stop Taking at Discharge)atorvastatin 40 mg oral tablet (13 sources)HMG-CoA Reductase InhibitorStart: 98-34-1268gain 1 tablet by mouth once daily at bedtimeAtorvastatin 40 mg tablet Active 40 MG PO Daily at bedtime 90 November 27, 2024 12:00am Complies with drug therapyStart: 33-73-5257aikw 1 tablet by mouth at bedtimeatorvastatin (Lipitor) [...] 10 mg rectal suppository (1 source)Stimulant LaxativeStart: 14-48-3114sjbetoaer (Dulcolax) suppository 10 mgchlorhexidine gluconate 40 mg/ml medicated liquid soap (5 sources)Start: 05-17-2023 End: 84-75-5231jrevfqmjvuxcv (Hibiclens) 4 % external liquid Indications: Lumbar stenosis with neurogenic claudication , Surgery, elective , Preop testing , Preoperative general physical examination Apply topicallyonce daily as needed for wound care for up to 5 days. 473 mL 0 05/17/2023 05/22/2023 ActiveStart: 05-17-2023 End: 56-63-8355onrastjrraayw (Peridex) 0.12 % solution Indications: Lumbar stenosis with neurogenic claudication ,Surgery, elective , Preop testing , Preoperative general physical examination Use 15 mL in the mouth or throat if needed for wound care for up to 14 days. 120 mL 0 05/17/2023 06/06/2023 Discontinued (Stop Taking at Discharge)cyclobenzaprine hydrochloride 10 mg oral tablet (9 sources)Muscle RelaxantStart: 27-30-6786ywjf 1 tablet by mouth three times daily as needed for muscle spasmsCyclobenzaprine 10 mg tablet Active 10 MG PO Three times daily as needed for muscle spasm January 13, 2025 12:00am Complies with drug therapyStart: 90-00-4947dcbg 1 tablet by mouth three times daily as needed for muscle spasmscyclobenzaprine (Flexeril) 10 MG tablet Indications: Lumbar spondylosis Take 1 tablet (10 mg) by mouth 3 (three) times a day as needed for muscle spasms 30 tablet 2 07/16/2024 ActiveStart: 10-24-2748rwbg 1 tablet by mouth three times daily as needed for muscle spasmscyclobenzaprine (Flexeril) 10 MG tablet Indications: Lumbar spondylosis Take 1 tablet (10 mg) by mouth 3 (three) times a day as needed for muscle spasms 30 tablet 2 07/16/2024 ActiveStart: 06-01-2023 End: 82-13-5967gsoi 1 tablet by mouth three times daily as needed for muscle spasmscyclobenzaprine (Flexeril) 10 mg tablet Indications: Postoperative pain Take 1 tablet (10 mg) by mouth 3 times a day as needed for muscle spasms for up to 7 days. 21 tablet 06/06/2023 Activedocusate sodium 50 mg / sennosides, mcfp 8.6 mg oral tablet (2 sources)Start: 06-01-2023 End: 53-35-2553aome 2 tablets by mouth twice dailysennosides-docusate sodium (Marycruz-Colace) 8.6-50 mg tablet Indications: Constipation due to pain medication Take 2 tablets by mouth 2 times a day for 7 days. Take while taking pain medication oxycodone to prevent constipation 28 tablet 0 06/06/2023 06/13/2023 Activeempagliflozin 25 mg oral tablet (20 sources)Sodium-Glucose Cotransporter 2 InhibitorStart: 39-38-8713sqeb 1 tablet by mouth once daily in the morningEmpagliflozin 25 mg tablet Active 25 MG PO Every morning January 13, 2025 12:00am Complies with drug therapyfolic acid 1 mg oral tablet (20 sources)Start: 28-83-9492shdn 1 tablet by mouth once daily in the morning Folic Acid 1 mg tablet Active 1 MG PO Every morning January 13, 2025 12:00am Complies with drug therapygabapentin 300 mg oral capsule (16 sources)Anti-epileptic AgentStart: 36-07-2899pzlf 1 capsule by mouth every twenty-four hoursGabapentin 300 MG 1 capsule Orally Once a day for 30 days Mar, ActiveStart: 11-12-2018 End: 66-60-9735cvfy 1 tablet by mouth three times dailyGabapentin 300 mg capsule Discontinued 1 TAB PO Three times daily November 12, 2018 12:00am 2024 1:30pmglipiZIDE 10 mg oral tablet (20 sources)SulfonylureaStart: 38-99-4873mksn 1 tablet by mouth twice daily Glipizide 10 mg tablet Active 10 MG PO Twice daily January 13, 2025 1:30pm Complies with drug therapyStart: 07-45-1502gfpk 1 tablet by mouth twice daily glipiZIDE (Glucotrol) 10 MG tablet Indications: Type 2 diabetes mellitus with hyperglycemia, without long-term current use of insulin (HCC) TAKE 1 TABLET BY MOUTH TWICE DAILY 180 tablet 3 06/09/2024 ActiveStart: 85-48-0274qnjk 1 tablet by mouth twice dailyglipiZIDE (Glucotrol) 10 MG tablet Indications: Type 2 diabetes mellitus with hyperglycemia, without long-term current use of insulin ([facility] [place]) TAKE 1 TABLET BY MOUTH TWICE DAILY 180 tablet 3 05/09/2023 Active Start: 11-12-2018 End: 18-89-3280exiu 1 tablet by mouth once dailyGlipizide 10 [...] 5000 unt/ml injection (1 source)Unfractionated Heparin, Anti-coagulantStart: 65-80-5532dvfigz 5000 [IU] by subcutaneous injection every eight [...] 20 mg oral tablet (20 sources)Antirheumatic AgentStart: 10-41-9808evsx 1 tablet by mouth once dailyleflunomide (Arava) 20 mg tablet Indications: Psoriatic arthritis (Multi) Take 1 tablet (20 mg) by mouth once daily. DO NOT RESUME UNTIL 06/15/2023 Do not start before June 15, 2023. 06/15/2023 ActiveStart: 92-90-3549kvgz 1 tablet by mouth once dailyleflunomide (Arava) 20 mg tablet Indications: Psoriatic arthritis (CMS/HCC) Take 1 tablet (20 mg) by mouth once daily. DO NOT RESUME UNTIL 06/15/2023 Do not start before June 15, 2023. 0 06/15/2023 ActiveStart: 11-12-2018 End: 92-69-0618jatq 1 tablet by mouth once dailyLeflunomide 20 mg Tablet Active 1 TAB PO Daily November 12, 2018 12:00am Complies with drug therapylidocaine 0.04 mg/mg medicated patch (2 sources)Antiarrhythmic, Amide Local AnestheticStart: 06-07-2023 End: 59-75-4105slkni 1 dose transdermal route every twelve hours [...] oral tablet (13 sources)Angiotensin 2 Receptor BlockerStart: 55-26-2361tuga 1 tablet by mouth once dailyLosartan 25 mg tablet Active 25 MG PO Daily 22 08November 27, 2024 12:00am Complies with drug therapyStart: 56-96-2076nkqn 1 tablet by mouth once dailylosartan (Cozaar) 25 MG tablet Indications: Essential hypertension TAKE 1 TABLET(25 MG) BY MOUTH DAILY 90 tablet 3 10/17/2023 ActivemetFORMIN hydrochloride 1000 mg oral tablet (20 sources)BiguanideStart: 15-90-6057dkdk 1 tablet by mouth twice daily Metformin 1,000 mg tablet Active 1000 MG PO Twice daily January 13, 2025 1:31pm Complies with drug therapyStart: 77-43-3482lyef 1 tablet by mouth twice dailymetFORMIN (Glucophage) 1000 MG tablet Indications: Essential hypertension TAKE 1 TABLET BY MOUTH TWICE DAILY 180 tablet 3 06/09/2024 ActiveStart: 74-60-1457utti 1 tablet by mouth twice dailymetFORMIN (Glucophage) 1000 MG tablet Indications: Essential hypertension (CMS/HCC) TAKE 1 TABLET BY MOUTH TWICE DAILY 180 tablet 3 05/09/2023 ActiveStart: 11-12-2018 End: 51-63-3875cvkf 1 tablet by mouth once dailyMetformin 1,000 mg tablet Discontinued 1 TAB PO Daily November 12, 2018 12:00am January 13, 2025 1:33pm methotrexate 2.5 mg oral tablet (20 sources)Folate Analog Metabolic InhibitorStart: 45-91-9218xwqi 3 tablets by mouth every weekMethotrexate Sodium 2.5 mg tablet Active 7.5 MG PO Once a week January 13, 2025 1:32pm Complies with drug therapyStart: 94-18-3659tiin 3 tablets by mouth every weekmethotrexate (Trexall) 2.5 mg tablet Indications: Psoriatic arthritis (Multi) Take 3 tablets (7.5 mg total) by mouth 1 (one) time per week. Follow directions carefully, and ask to explain any part you do not understand. Take exactly as directed. Takes on Sunday. DO NOT RESUME UNTIL 06/15/2023 06/15/2023 ActiveStart: 98-12-8764nfea 3 tablets by mouth every week methotrexate (Trexall) 2.5 mg tablet Indications: Psoriatic arthritis (CMS/HCC) Take 3 tablets (7.5mg total) by mouth 1 (one) time per week. Follow directions carefully, and ask to explain any part you do not understand. Take exactly as directed. Takes on Sunday. DO NOT RESUME UNTIL 06/15/2023 0 06/15/2023 Active Start: 11-12-2018 End: 57-22-7529nghi 1 tablet by mouth once dailyMethotrexate Sodium 2.5 mg tablet Discontinued 2.5 MG PO Daily May 22, 2019 1:00am January 13, 2025 1:33pmStart: 11-12-2018 End: 55-08-2764wvkn 3 tablets by mouth once dailyMethotrexate Sodium 2.5 mg tablet Discontinued 3 TAB PO Daily November 12, 2018 12:00am May 22, 2019 12:53pm End: 34-24-1925njlc 3 tablets by mouth every weekmethotrexate 2.5 [...] Sun06/01/23 at 1932, Phase II/On Unit HOLD [employer]PER[employer] Infusion and notify H.O. immediatelyStart: .2 mg, intravenous, Every 5 min PRN, respiratory depression, Starting on Sun06/01/23 at 1932, PhaseII/On Unit If respiratory rate is less than 8 breaths/minute or patient is difficult to arouse stopany narcotics and contact physician. Administer slow IV push. Repeat as ordered until patient's respiratory rate is greater than 12 breaths/minute. Ondansetron (1 source)Serotonin-3 Receptor AntagonistStart: 69-64-4698peas 1 tablet by mouth every eight hours as neededondansetron (Zofran) tablet 4 mgoxygen (O2) therapy (2 sources)Start: 88-06-2182ddyudfwbjy, Continuous PRN - O2/gases, other, Starting on Sun06/01/23 at 1932, Phase II/On Unit Titrate supplemental oxygen to maintain SpO2 greater than or equal to 92 Device: Nasal Cannula Rate in liters per minute: 2 LPM Keep O2 Sat Above: 92%Start: 06-01-2023 End: 75-69-6447wjzoyv (O2) therapypioglitazone 45 mg oral tablet (20 sources)Peroxisome Proliferator Receptor alpha Agonist, Peroxisome Proliferator Receptor gamma Agonist, ThiazolidinedioneStart: 10-98-3745txaj 1 tablet by mouth once daily in the morningPioglitazone 45 mg tablet Active 45 MG PO Every morning January 13, 2025 12:00am Complies with drug therapyStart: 91-66-1059qniq 1 tablet by mouth in the morningpioglitazone (Actos) 45 MG tablet Indications: Type 2 diabetes mellitus with hyperglycemia, withoutlong-term current use of insulin ([facility] [place]) TAKE 1 TABLET(45 MG) BY MOUTH IN THE MORNING 90 tablet 3 08/04/2024 ActiveStart: 89-31-3652lyrh 1 tablet by mouth in the morning pioglitazone (Actos) 45 MG tablet Indications: Type 2 diabetes mellitus with hyperglycemia, withoutlong-term current use of insulin ([facility]/HCC) TAKE 1 TABLET(45 MG) BY MOUTH IN THE MORNING 90 tablet ActiveStart: 11-12-2018 End: 82-12-7493lhkt 1 tablet by mouth once dailyPioglitazone 30 mg tablet Discontinued 1 TAB PO Daily November 12, 2018 12:00am January 13, 2025 1:32pm polyethylene glycol 3350 77627 mg powder for oral solution (2 sources)Osmotic LaxativeStart: 06-01-2023 End: 60-25-8697amdkvkxopfjg glycol (Glycolax, Miralax) packet 17 gpredniSONE 50 mg oral tablet (3 sources)Start: 07-16-2024 End: 72-19-4769ljqm 1 tablet by mouth once dailypredniSONE (Deltasone) 50 MG tablet Indications: Lumbar spondylosis Take 1 tablet (50 mg) by mouth Daily for 6 days 6 tablet 07/16/2024 07/22/2024 ActivePromethazine (1 source)PhenothiazineStart: 94-98-1066notx 1 tablet by mouth every six hours as neededpromethazine (Phenergan) tablet 25 cv5194 ml sodium chloride 9 mg/ml injection (1 source)Start: 91-31-1885szgb 100 mL intravenously every xfqc416 mL/hr, intravenous, Continuous, Starting on Sun06/01/23 at 2000, Phase II/On Unit Convert IV to saline lock when taking oral fluids.triamcinolone acetonide 5 mg/ml topical cream (20 sources)CorticosteroidStart: 50-04-2485Kmarjtstjkvti Acetonide 0.5 % cream Active 1 APPLIC TOPICAL Three times daily January 13, 2025 12:00am Complies with drug therapyStart: 72-95-5176jrwqubxotfgwz (Kenalog) 0.5 % cream Indications: Flexural psoriasis Apply topically 3 (three) timesa day 60 g 3 04/16/2023 ActiveStart: 72-87-7994Obabrzh -40 mg 08 Nov, 2019 40 mgVitamin D3 (7 sources)Vitamin D3 Active Completed/Discontinued Medications MedicationDrug Class(es)DatesSig (Normalized)Sig (Original)calcium chloride 0.0014 meq/ml / potassium chloride 0.004 meq/ml / sodium chloride 0.103 meq/ml / sodium lactate 0.028 meq/ml injectable solution (1 source)Start: 06-01-2023 End: 75-03-5655cszcvikm Ringer's infusioncholecalciferol 0.025 mg oral capsule (3 sources)Vitamin DStart: 11-12-2018 End: 88-49-4490byvc 1 tablet by mouth once dailyCholecalciferol (Vitamin D3) (Vitamin D3) 1,000 unit Capsule Discontinued 1 TAB PO Daily November 12, 2018 12:00am January 13, 2025 1:30pm1 ml HYDROmorphone hydrochloride 1 mg/ml cartridge (1 source)Opioid AgonistStart: 06-01-2023 End: 76-31-3787WTDJBcljnpkkt (Dilaudid) injection 0.5 mghydromorphone P[employer] 0.5 mg/mL in NS opioid naive (1 source)Start: 06-01-2023 End: 24-46-8091Yaelx Loading Dose: Not Ordered Patient Bolus Dose: 0.2 mg Lockout Interval: 10 Minutes Basal Rate:0 mg/hr One Hour Dose Limit: 1.2 mg intravenous, Continuous, Starting on Sun06/01/23 at 2000, Phase II/On Unit ibuprofen 800 mg oral tablet (10 sources)Nonsteroidal Anti-inflammatory DrugStart: 11-12-2018 End: 24-63-6635qdox 1 tablet by mouth three times dailyIbuprofen 800 mg tablet Discontinued 1 TAB PO Three times daily November 12, 2018 12:00am January 14, 2025 9:36am1 ml ketorolac tromethamine 30 mg/ml injection (1 source)Nonsteroidal Anti-inflammatory Drug, Cyclooxygenase InhibitorStart: 06-02-2023 End: 09-87-234236 mg, intravenous, Every 8 hours scheduled, First dose on Sun06/02/23 at 0600, For 3 days Do not administer within 6 hours of other NSAIDs (such as ibuprofen or naproxen).oxyCODONE hydrochloride 5 mg oral tablet (3 sources)Opioid AgonistStart: 06-02-2023 End: 23-11-8593cjvo 1 tablet by mouth every four hours as neededoxyCODONE (Roxicodone) immediate release tablet 10 mgStart: 06-02-2023 End: 80-03-1951lyfm 1 tablet by mouth every six hours [...] release oral tablet (3 sources)Start: 06-06-2023 End: 41-95-7826flsipntxm chloride CR (Klor-Con M20) ER tablet 40 mEqStart: 06-02-2023 End: 66-23-2595degfloqdo chloride CR (Klor-Con M20) ER tablet 40 mEqStart: 06-01-2023 End: 27-15-4976pnemcurjq chloride 20 mEq in 100 mL IV premixtiZANidine 4 mg oral tablet (10 sources)Central alpha-2 Adrenergic AgonistStart: 11-12-2018 End: 79-94-2549sprz 1 tablet by mouth once daily at [...] with hyperglycemia; Translations: [Diabetic - poor control]Onset: 94-30-1118EsmnkleLbnaxgyd mellitus without complication (7 sources)Type 2 diabetes mellitus; Translations: [Type 2 diabetes mellitus without complications]ChronicEssential hypertension (20 sources)Essential hypertension; Translations: [Essential (primary) hypertension]Onset: 128553-45-0532VevlzzeRjwbu acquired deformities (3 sources)Scoliosis of lumbar spine; Translations: [Other forms of scoliosis, lumbar region]45-79-8299UqyhcfvCpnol acquired deformities (1 source)Other forms of scoliosis, lumbar regionChronicOther acquired deformities (10 sources)Acquired deformity of spine; Translations: [Other specified deforming dorsopathies, site unspecified]Onset: 240354-99-5217KcjvrzwGpckx acquired deformities (16 sources)Other secondary scoliosis, thoracolumbar region; Translations: [Scoliosis associated with other conditions]Onset: 863741-25-7264Dtrzojw Other acquired deformities (2 sources)Other specified deforming dorsopathies, site unspecified; Translations: [Other specified deforming dorsopathies, site unspecified]Onset: 07-64-5328RcyjpstMpjzi aftercare (1 source)Other long term acute care registered nurse (current) drug therapy; Translations: [OTH SKILLED NURSING CURRENT DRUG THERAPY]Onset: 41-06-4143DlhkvjxxMcynd aftercare (1 source)Surgical follow-up; Translations: [Encounter for follow-up examination after completed treatment for conditions other than malignant neoplasm] 50-23-0740HvajeiqrKngmj bone disease and musculoskeletal deformities (7 sources)Other specified disorders of bone, other site; Translations: [Iliac crest bone pain]EpisodicOther bone disease and musculoskeletal deformities (9 sources)Bone pain; Translations: [Other specified disorders of bone, other site]Onset: 357114-59-4278MvjslyapFxbst connective tissue disease (2 sources)History of lumbar fusion; Translations: [Arthrodesis status] 24-72-9444HxbcmhfaOvrqj connective tissue disease (2 sources)Arthrodesis status; Translations: [Arthrodesis status]Onset: 46-84-9131XoyyyqosDaalt connective tissue disease (1 source)Pain in buttock; Translations: [Myalgia, other site]80-09-9795Ycmwrmsd Other gastrointestinal disorders (1 source)Drug-induced constipation; Translations: [Drug induced constipation] 14-15-6921NlofrnbvNbycg inflammatory condition of skin (4 sources)Other psoriatic arthropathy; Translations: [OTHER PSORIATIC ARTHROPATHY]Onset: 24-28-3701LxuugrrTtfpv inflammatory condition of skin (20 sources)Psoriatic arthritis; Translations: [Arthropathic psoriasis, unspecified]Onset: 348502-83-0214MpdvenuQvpuq inflammatory condition of skin (20 sources)Flexural psoriasis; 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]Onset: 04-16-2023 83-26-4157LlqgcktPlpef inflammatory condition of skin (8 sources)Psoriasis; Translations: [Psoriasis, unspecified]Onset: 04-30-2023 68-59-3955HahuycsMkcem inflammatory condition of skin (2 sources)Arthropathic psoriasis, unspecified; Translations: [Arthropathic psoriasis, unspecified (Multi)]Onset: 70-19-9902DgslmonPjded nervous system disorders (16 sources)Chronic pain; Translations: [Other chronic pain]Onset: 04-30-2023 14-38-1778FxyxhooRuigu nervous system disorders (2 sources)Other chronic painChronicOther nervous system disorders (1 source)Other chronic pain; Translations: [Other chronic pain]Onset: 23-28-6759HyzwbgdMrqwl nervous system disorders (1 source)Postoperative pain ; Translations: [Other acute postprocedural pain] 11-76-0063ImezpaezUqnqi non-traumatic joint disorders (3 sources)Hip pain; Translations: [Pain in right hip]Onset: 10-16-2022 53-09-1085BwiqbljnOnjpk nutritional; endocrine; and metabolic disorders (7 sources)Cholesterol level - finding; Translations: [Lipoprotein deficiency] ChronicOther nutritional; endocrine; and metabolic disorders (8 sources)Lipoprotein deficiency disorder; Translations: [Lipoprotein deficiency]Onset: 336951-11-4036KbkrvehDudit nutritional; endocrine; and metabolic disorders (14 sources)Body mass index 30+ - obesity; Translations: [Obesity, unspecified] Onset: 903383-38-0157WujsfvsAwrox nutritional; endocrine; and metabolic disorders (1 source)Obesity; Translations: [Obesity, unspecified]88-66-7942ZxkvfbbGdzjrwrd codes; unclassified (2 sources)Other specified postprocedural states; Translations: [Other specified postprocedural states]Onset: 56-12-2419HyatvfdxJivdthbtctd; intervertebral disc disorders; other back problems (20 sources)Lumbosacral spondylosis; Translations: [Spondylosis without myelopathy or radiculopathy, lumbosacral region]Onset: 29-39-4590Wytqczv Spondylosis; intervertebral disc disorders; other back problems (20 sources)Lumbar radiculopathy; Translations: [Radiculopathy, lumbar region] Onset: 52-31-4265BzrzxjgjZbsfhdowmnlg (1 source)Pain in right hip; Translations: [Pain in right hip]Onset: 10-16-2022 Unclassified (9 sources)Patient has spine surgeryOnset: 542602-14-0871 Past or Other Problems Problem ClassificationProblemDateDocumented DateEpisodic/ChronicCancer of prostate (8 sources)Malignant tumor of prostate; Translations: [Malignant neoplasm of prostate]Onset: 09-15-2021 Resolved: 125730-43-6323FxhdwcwNudnr aftercare (20 sources)Long-term current use of drug therapy; Translations: [Other long term acute care registered nurse (current) drug therapy]Onset: 838039-93-1119JphiysgxNkugq aftercare (2 sources)Encounter for follow-up examination after completed treatment for conditions other than malignant neoplasm; Translations: [Encounter for follow-up examination after completed treatment for conditionsother than malignant neoplasm]Onset: 81-23-1601BiyizsvxKdztz connective tissue disease (15 sources)Muscle pain; Translations: [Myalgia, other site]Onset: 04-30-2023 64-80-1961RtduekokYbqsg connective tissue disease (8 sources)Pain in left lower limb; Translations: [Pain in left leg]Onset: 777241-95-9884EdjtupxyDwusx gastrointestinal disorders (2 sources)Drug induced constipation; Translations: [Drug induced constipation] Onset: 76-49-2560EhxdclwqWqpsq nervous system disorders (2 sources)Other acute postprocedural pain; Translations: [Other acute postprocedural pain]Onset: 55-96-5650ImdbyuonImioi non-traumatic joint disorders (20 sources)Pain in right hip joint; Translations: [Pain in right hip]Onset: 212722-88-6980LsrrvfwgUgqwq screening for suspected conditions (not mental disorders or infectious disease) (15 sources)Encounter for screening for malignant neoplasm of prostate; Translations: [Patient encounter status]Onset: 764045-78-8839Vwlptnoj Residual codes; unclassified (3 sources)Patient encounter status; Translations: [Encounter for procedure for purposes other than remedying health state, unspecified]Onset: 10-17-2023 02-17-9353LbybnphuTcefmkmf codes; unclassified (10 sources)H/O Spinal surgery; Translations: [Other specified postprocedural states]Onset: 726887-36-7350IqijpihvPtaxzxpn codes; unclassified (2 sources)Encounter for procedure for purposes other than remedying health state, unspecified; Translations: [Encounter for procedure for purposes other than remedying health state, unspecified]Onset: 05-26-2246UdrbzrxqPnkyivbbxsxj (2 sources)Onset: 400058-65-9067 Results Test NameValueInterpretationReference RangeFacilityALL CBC WITH AUTO DIFFon [id number] ABSOLUTE SGSE7GOOP HealthcareBasophils/100 WBC (Bld)0.6 %0.2 - 2.0 %[facility] HealthcareEosinophils/100 WBC (Bld)2.6 %0.9 - 7.0 %[facility] Erythrocyte distribution width (RBC) [Ratio]14.6 %11.0 - 15.0 %[facility] Hematocrit (Bld) [Volume fraction]44.2 %42.0 - 54.0 %[facility] CenterHemoglobin (Bld) [Mass/Vol]14.5 g/dL14.0 - 18.0 g/dLNorthwest Medical CenterIMMATURE GRANULOCYTES ABS AUTO0.01[facility] HealthcareImmature granulocytes/100 WBC (Bld)0.2 %0.0 - 0.5 % [facility] CenterLYMPHOCYTES ABSOLUTE AUTO1.3[facility] HealthcareLymphocytes/100 WBC (Bld)25.5 %20.5 - 60.0 %[facility] CenterMCH (RBC) [Entitic mass]28.8 pg25.9 - 34.0 pgNOHermann Area District HospitalMCHC (RBC) [Mass/Vol]32.8 g/dL29.9 - 35.2 g/dLNorthwest Medical CenterMCV (RBC) [Entitic vol]87.9 fL80.0 - 94.0 fLNOHermann Area District HospitalMONOCYTES ABSOLUTE AUTO0.5NOND HealthcareMonocytes/100 WBC (Bld)10.8 %1.7 - 12.0 %NOMRay County Memorial HospitalNEUTROPHILS ABSOLUTE ETKQ4RNEU HealthcareNeutrophils/100 WBC (Bld)60.3 %43.0 - 75.0 %[facility] CenterPlatelet mean volume (Bld) [Entitic vol]10.7 fL9.5 - 13.5 fLNOHermann Area District HospitalTBH EO #0.1NOMS HealthcareTB [id number] [facility]TB RBC5.03NOMS [facility] HospitalTB [id number] HealthcareCLINISYNCNOMS HealthcareMLR HEMOGLOBIN A1Con 64-09-2677Pbcrzag [Mass/Vol]137 mg/dLNOND TcvrvopoqaSsE1y (Bld) [Mass fraction]6.4 %High4.5 - 6.2 %[facility] HealthcareComment on above:ADA RECOMMENDED LIMIT 4.0 - 6.0 ADA THERAPEUTIC TARGET < 7.0 ACTION SUGGESTED > 7.0 Interpretation and review of laboratory resultsAbnormalNOND HealthcareCLINISYNC NOM HealthcareALL CBC WITH AUTO DIFFon 05-64-1696VSNADKLHN ABSOLUTE HQGC6MGFA HealthcareBasophils/100 WBC (Bld)0.7 %0.2 - 2.0 %NOMS HealthcareEosinophils/100 WBC (Bld)2.3 %0.9 - 7.0 %[facility] HealthcareErythrocyte distribution width (RBC) [Ratio]14.9 %11.0 - 15.0 %NOM HealthcareHematocrit (Bld) [Volume fraction]42.2 %42.0 - 54.0 %[facility] CenterHemoglobin (Bld) [Mass/Vol]13.7 g/dLLow14.0 - 18.0 g/dLNorthwest Medical CenterIMMATURE GRANULOCYTES ABS AUTO0.01NOHermann Area District HospitalImmature granulocytes/100 WBC (Bld)0.2 %0.0 - 0.5 %[facility] HealthcareInterpretation and review of laboratory resultsAbnormalNorthwest Medical CenterLYMPHOCYTES ABSOLUTE AUTO1.8 NOMRay County Memorial HospitalLymphocytes/100 WBC (Bld)30.4 %20.5 - 60.0 %[facility] LouisH (RBC) [Entitic mass]28.7 pg25.9 - 34.[address] LouisHC (RBC) [Mass/Vol] 32.5 g/dL29.9 - 35.2 g/dLNorthwest Medical CenterMCV (RBC) [Entitic vol]88.3 fL80.0 - 94.0 fLNorthwest Medical CenterMONOCYTES ABSOLUTE AUTO0.5NOHermann Area District HospitalMonocytes/100 WBC (Bld)8.2 %1.7 - 12.0 %NOM HealthcareNEUTROPHILS ABSOLUTE AUTO3.5NOHermann Area District Hospital Neutrophils/100 WBC (Bld)58.2 %43.0 - 75.0 %[facility] Medical CenterPlatelet mean volume (Bld) [Entitic vol]10.7 fL9.5 - 13.5 fLNOHermann Area District HospitalTBH EO #0.1NCarondelet Health DQJ620CJOLWestern Missouri Mental Health Center RBC4.78NOWestern Missouri Mental Health Center AYJ4VNXDHermann Area District Hospital CLINISYNCNorthwest Medical CenterXR SCOLIOSIS SERIES 2 TO 3 VIEWSon 98-38-0442Tyowul do both AP and lateral views. ( Total of 2 views ) Please have the patient standing without assistance of any kind and with knees in neutral position. The patient should stand relaxed, bend their elbows, and place their fists on the ipsilateral clavicles. Source Facility: [facility] Interpreted By: Austen Bass, STUDY: XR FULL SPINE 2 VIEW SCOLIOSIS; ; 05/27/2024 10:44 am INDICATION: Signs/Symptoms:Lumbar Stenosis for assesment of alignment. 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 ( Total of 2 views ) Please have the patient standing without assistance of any kind and with knees in neutral position. The patient should stand relaxed, bend their elbows, and place their fists on the ipsilateral clavicles. Source Facility: [facility] Interpreted By: Austen Bass, STUDY: XR FULL SPINE 2 VIEW SCOLIOSIS; ; 05/27/2024 10:44 am INDICATION: Signs/Symptoms:Lumbar Stenosis for assesment of alignment. 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 ( Total of 2 views ) Please have the patient standing without assistance of any kind and with knees in neutral position. The patient should stand relaxed, bend their elbows, and place their fists on the ipsilateral clavicles.XR SCOLIOSIS SERIES 2 TO 3 VIEWSon 43-48-5881Cgwuxwbdm Study observation (narrative)[facility] CBC WITH AUTO DIFFon 00-15-8646NFVKTRWJH ABSOLUTE AUTO0.1NOMS HealthcareBasophils/100 WBC (Bld)0.7 %0.2 - 2.0 %NOMRay County Memorial HospitalEosinophils/100 WBC (Bld)1.7 %0.9 - 7.0 %[facility] Medical CenterErythrocyte distribution width (RBC) [Ratio]15.8 %High11.0 - 15.0 %NOMRay County Memorial HospitalHematocrit (Bld) [Volume fraction] 40.9 %Low42.0 - 54.0 %[facility] Medical CenterHemoglobin (Bld) [Mass/Vol]13.1 g/dLLow14.0 - 18.0 g/dLNorthwest Medical CenterIMMATURE GRANULOCYTES ABS AUTO0.01NOMS [facility] Immature granulocytes/100 WBC (Bld)0.1 %0.0 - 0.5 %[facility] CenterInterpretation and review of laboratory resultsAbnormalNOHermann Area District HospitalLYMPHOCYTES ABSOLUTE AUTO1.7NOMS [facility] HospitalLymphocytes/100 WBC (Bld)23.1 %20.5 - 60.0 %[facility] St. LouisH (RBC) [Entitic mass]28.4 pg25.9 - 34.[address] LouisHC (RBC) [Mass/Vol]32 g/dL29.9 - 35.2 g/dLMercy Hospital St. LouisV (RBC) [Entitic vol]88.7 fL 80.0 - 94.0 fLNorthwest Medical CenterMONOCYTES ABSOLUTE AUTO0.6NOMS [facility] Monocytes/100 WBC (Bld)8.8 %1.7 - 12.0 %NOMRay County Memorial HospitalNEUTROPHILS ABSOLUTE AUTO 4.7NOMS [facility] HospitalNeutrophils/100 WBC (Bld)65.6 %43.0 - 75.0 %[facility] Platelet mean volume (Bld) [Entitic vol]10.5 fL9.5 - 13.5 fLNOHermann Area District HospitalTB EO #0.1NOMS [facility] HospitalTB [id number] [facility] RBC4.61LowNOMS [facility] WBC7.2NOMS HealthcareCLINISYNCNJACKSON [facility] HealthcareALL SED RATEon 42-20-3090XWN SED DOUN86MCTHPBOW [facility] HospitalCLINISYNFormerly [facility] - DillonCCF CMP (CMP) (FOR REMOTE [facility] USE)on 92-96-1527Kytfvke [Mass/Vol]3.8 g/dL3.4 - 5.0 g/dLNOND HealthcareALBUMIN GLOBULIN AANHN3BGLF HealthcareALP [Catalytic activity/Vol]99 U/L46 - 116 U/LNOMS HealthcareALT [Catalytic activity/Vol]33 U/L16 - 63 U/LNOMS HealthcareAnion gap [Moles/Vol]12.2 mmol/LNOMS HealthcareAST [Catalytic activity/Vol]23 U/L15 - 37 U/LNOMS HealthcareBilirubin [Mass/Vol]0.3 mg/dL0.2 - 1.0 mg/dLNOND Healthcare Calcium [Mass/Vol]9.1 mg/dL8.5 - 10.1 mg/dLNOND HealthcareChloride [Moles/Vol] 106 mmol/L98 - 107 mmol/LNOMS HealthcareCO2 [Moles/Vol]26.4 mmol/L21.0 - 32.0 mmol/LNOMS HealthcareCreatinine [Mass/Vol]0.92 mg/dL0.70 - 1.30 mg/dLNOND HealthcareGFR/1.73 sq M.predicted CKD-EPI (S/P/Bld) [Vol rate/Area]>60>=60 mL/min/1.73m 2NOMS HealthcareGlobulin (S) [Mass/Vol]3.7 g/dLNOND Healthcare Glucose [Mass/Vol]85 mg/dL74 - 106 mg/dLNOND HealthcarePotassium [Moles/Vol]3.6 mmol/L3.5 - 5.1 mmol/LNOMS HealthcareProtein [Mass/Vol]7.5 g/dL6.4 - 8.2 g/dL NOM HealthcareSodium [Moles/Vol]141 mmol/L136 - 145 mmol/LNOMS HealthcareTBH EGFR-NON AF NIUEAN>60>=60 mL/min/1.73m 2NOMS HealthcareUrea nitrogen [Mass/Vol]11 mg/dL7.0 - 18.0 mg/dLNOND HealthcareUrea nitrogen/Creatinine [Mass ratio]12 mg/mgNOND HealthcareCLINISYNCNJACKSON COUNTY [facility]IAL [facility] HealthcareALL CBC WITH AUTO DIFFon 61-43-8071NTMLKZUPA ABSOLUTE AUTO0.1NOMS HealthcareBasophils/100 WBC (Bld)0.7 % 0.2 - 2.0 %NOMS HealthcareEosinophils/100 WBC (Bld)2.8 %0.9 - 7.0 %[facility] CenterErythrocyte distribution width (RBC) [Ratio]16.7 %High11.0 - 15.0 % [facility] CenterHematocrit (Bld) [Volume fraction]39.3 %Low42.0 - 54.0 %[facility] CenterHemoglobin (Bld) [Mass/Vol]12.7 g/dLLow14.0 - 18.0 g/dLNorthwest Medical Center IMMATURE GRANULOCYTES ABS AUTO0.01NOHermann Area District HospitalImmature granulocytes/100 WBC (Bld)0.1 %0.0 - 0.5 %[facility] CenterInterpretation and review of laboratory resultsAbnormalNorthwest Medical CenterLYMPHOCYTES ABSOLUTE AUTO2.1NOMS [facility] Lymphocytes/100 WBC (Bld)31.3 %20.5 - 60.0 %[facility]. LouisH (RBC) [Entitic mass]27.3 pg25.9 - 34.[address] LouisHC (RBC) [Mass/Vol]32.3 g/dL29.9 - 35.2 g/dLMercy Hospital St. LouisV (RBC) [Entitic vol]84.3 fL80.0 - 94.0 fLNorthwest Medical CenterMONOCYTES ABSOLUTE AUTO0.8NOMS [facility] HospitalMonocytes/100 WBC (Bld)11.7 % 1.7 - 12.0 %[facility] CenterNEUTROPHILS ABSOLUTE AUTO3.6NOMS [facility] Neutrophils/100 WBC (Bld)53.4 %43.0 - 75.0 %[facility] CenterPlatelet mean volume (Bld) [Entitic vol]10.2 fL9.5 - 13.5 fLNorthwest Medical CenterTB EO #0.2NOMS [facility] TBH [id number] Missouri Mental Health Center RBC4.66LowNOMS [facility] WBC6.7NOMS [facility] CLINISYNCNorthwest Medical CenterX-ray scoliosis complete including supine and erecton 07-92-2027Wfuwnf do both AP and lateral views. ( [...] assesment of alignment. COMPARISON: 07/10/2023 ACCESSION NUMBER(S): [id number] ORDERING CLINICIAN: ISHA VALENTINO FINDINGS: There is [...] is intact without perihardware fractures or lucencies. Ykni-wb-czniyguj spondylosis noted at T12-L1 and L1-2. Chronic appearing compression deformity is noted of T12 vertebral body with mild anterior height loss. There is positive sagittal balance. No significant coronal balance. IMPRESSION: Postsurgical changes as described above without hardware complication. Mild S shaped thoracolumbar scoliosis. Positive sagittal balance MACRO: None. Signed by: Carmenza Garcia 08/16/2023 5:16 PM Dictation workstation: [id number], Radiologist, - 08/16/2023 Please do both AP [...] assesment of alignment. COMPARISON: 07/10/2023 ACCESSION NUMBER(S): [id number] ORDERING CLINICIAN: ISHA VALENTINO FINDINGS: There is [...] is intact without perihardware fractures or lucencies. Ryyn-lh-dhhznvdb spondylosis noted at T12-L1 and L1-2. Chronic appearing compression deformity is noted of T12 vertebral body with mild anterior height loss. There is positive sagittal balance. No significant coronal balance. IMPRESSION: Postsurgical changes as described above without hardware complication. Mild S shaped thoracolumbar scoliosis. Positive sagittal balance MACRO: None. Signed by: Carmenza Garcia 08/16/2023 5:16 PM Dictation workstation: [id number] [facility] CenterX-ray scoliosis complete including supine and erectOrdered By: Radiologist Radiology on 94-41-1587KQVD Naroomi Work Phone: X-ray scoliosis complete including supine and erecton 33-43-9698Beokccyce Study observation (narrative)[facility] CenterXR SCOLIOSIS 2 VIEW (NON EOS)on 55-68-5363MG SCOLIOSIS 2 VIEW (NON EOS)Interpreted By: Carmenza Garcia, STUDY: XR SCOLIOSIS 2 VIEW (NON EOS) INDICATION: Signs/Symptoms:Lumbar Stenosis for assesment of alignment. COMPARISON: 07/10/2023 ACCESSION NUMBER(S): [id number] ORDERING CLINICIAN: ISHA VALENTINO FINDINGS: There is [...] is intact without perihardware fractures or lucencies. Hscq-vu-opavpjqj spondylosis noted at T12-L1 and L1-2. Chronic appearing compression deformity is noted of T12 vertebral body with mild anterior height loss. There is positive sagittal balance. No significant coronal balance. IMPRESSION: Postsurgical changes as described above without hardware complication. Mild S shaped thoracolumbar scoliosis. Positive sagittal balance MACRO: None. Signed by: Carmenza Garcia 08/16/2023 5:16 PM Dictation workstation: [id number] State University Wexner Medical CenterComment on above:Order Comment: Please do both AP and lateral views. ( Total of 2 views ) Please have the patient standing without assistance of any kind and with knees in neutral position. The patient should stand relaxed, bend their elbows, and place their fists on the ipsilateral clavicles.X-ray scoliosis complete including supine and erecton 46-69-4723Fcbsxf do both AP and lateral views. ( [...] INDICATION: Signs/Symptoms:post op. COMPARISON: 04/24/2023 ACCESSION NUMBER(S): [id number] ORDERING CLINICIAN: ISHA VALENTINO FINDINGS: Two views [...] Austen Bass 07/11/2023 3:27 PM Dictation workstation: [id number], Radiologist, MD - 07/11/2023 Please do both [...] INDICATION: Signs/Symptoms:post op. COMPARISON: 04/24/2023 ACCESSION NUMBER(S): [id number] ORDERING CLINICIAN: ISHA VALENTINO FINDINGS: Two views [...] Austen Bass 07/11/2023 3:27 PM Dictation workstation: [id number] [facility] HealthcareX-ray scoliosis complete including supine and erectOrdered By: Radiologist Radiology on 71-96-0715CBTQ Naroomi Work Phone: X-ray scoliosis complete including supine and erecton 15-69-6098Meskeimdo Study observation (narrative)NOMS HealthcareXR SCOLIOSIS 2 VIEW (NON EOS)on 98-49-4173ZV SCOLIOSIS 2 VIEW (NON EOS)Interpreted By: Austen Bass, STUDY: XR SCOLIOSIS 2 VIEW (NON EOS); ; 07/10/2023 11:36 am INDICATION: Signs/Symptoms:post op. COMPARISON: 04/24/2023 ACCESSION NUMBER(S): [id number] ORDERING CLINICIAN: ISHA VALENTINO FINDINGS: Two views [...] Austen Bass 07/11/2023 3:27 PM Dictation workstation: [id number] State University Wexner Medical CenterComment on above:Order Comment: Please do both AP and lateral views. ( Total of 2 views ) Please have the patient standing without assistance of any kind and with knees in neutral position. The patient should stand relaxed, bend their elbows, and place their fists on the ipsilateral clavicles.CBC panel Auto (Bld)on 28-72-4214Rtwyztvkymn distribution width (RBC) [Ratio]13.5 %11.5 - 14.5 %[facility] Health MiamisburgHematocrit (Bld) [Volume fraction]33.1 %Low 41.0 - 52.0 %[facility] MiamisburgHemoglobin (Bld) [Mass/Vol]11.0 g/dLLow13.5 - 17.5 g/dLUnMercy Health Perrysburg HospitalInterpretation and review of laboratory resultsAbnormalUTriHealth Bethesda Butler HospitalMCH (RBC) [Entitic mass]29.3 pg26.0 - 34.0 pgKettering Health MiamisburgMCHC (RBC) [Mass/Vol]33.2 g/dL32.0 - 36.0 g/dLKettering Health MiamisburgMCV (RBC) [Entitic vol]88 fL80 - 100 fLUniTriHealthNucleated RBC/100 WBC (Bld) [Ratio]0.0 %[facility] Health MiamisburgPlatelets (Bld) [#/Vol] 323 10*3/UC Medical CenterRBC (Bld) [#/Vol]3.75 10*6/[facility], Cancer CenterWBC (Bld) [#/Vol]6.3 10*3/UC Medical CenterUnMercy Health Perrysburg HospitalErythrocyte distribution width (RBC) [Ratio]13.5 %Jrxfhv64.5-14.5Our [facility] Mercy HospitalComment on above:Performed By: #### 61829-2 #### PACHECO Ferraro ([id number]) [facility] ([facility]) [address] [place] [address]Clphxyquoh (Bld) [Volume fraction]33.1 %Low41.0-52.0 [facility] HospitalComment on above:Performed By: #### 77108-0 #### PACHECO Ferraro ([id number]) [facility] ([facility]) [address] [place], [place] [address]Qcyynioxhf (Bld) [Mass/Vol]11.0 g/dLLow13.5-17.5UnMercy Health Willard HospitalComment on above:Performed By: #### 53892-7 #### PACHECO Ferraro ([id number]) [facility] ([facility]) [address] [place] [address]ZCC (RBC) [Entitic mass]29.3 poCtapbt39.0-34.0[facility] HospitalComment on above:Performed By: #### 39661-9 #### PACHECO Ferraro ([id number]) [facility] ([facility]) [address] [place], [place] [address]KSFH (RBC) [Mass/Vol]33.2 g/oKSccgzc63.0-36.0UnMercy Health Willard HospitalComment on above:Performed By: #### 71086-0 #### PACHECO Ferraro ([id number]) [facility] ([facility]) [address] [place] [address]CQS (RBC) [Entitic vol]88 pLLrpbpg71-040UanhritmyvMercy Health Willard HospitalComment on above:Performed By: #### 31740-3 #### PACHECO Ferraro ([id number]) [facility] ([facility]) [address] [place] [address]Vuanjyiwh RBC/100 WBC (Bld) [Ratio]0.0 /100 WBCsNormal0.0-0.0 [facility] HospitalComment on above:Performed By: #### 31496-7 #### PACHECO Ferraro ([id number]) [facility] ([facility]) [address] [place] [address]Oeqdecsrv (Bld) [#/Vol]323 x10*3/pXKoyhkw784-928BphqveketeMercy Health Willard HospitalComment on above:Performed By: #### 93767-2 #### PACHECO Ferraro ([id number]) [facility] ([facility]) [address] [place] [address]CIQ (Bld) [#/Vol]3.75 x10*6/uLLow4.50-5.90UnMercy Health Willard HospitalComment on above:Performed By: #### 03314-0 #### PACHECO Ferraro ([id number]) [facility] ([facility]) [address] [place] [address]LTR (Bld) [#/Vol]6.3 x10*3/uLNormal4.4-11.3UnMercy Health Willard HospitalComment on above:Performed By: #### 25117-9 #### PACHECO Ferraro ([id number]) [facility] ([facility]) [address] [place], [place] [address]Soizjqd Test strip manual (Bld) [Mass/Vol]on 06-06-2023 Glucose [Mass/Vol]207 mg/lCWtbo18 - 99 mg/dLUnMercy Health Perrysburg Hospital Interpretation and review of laboratory resultsAbnoLouis Stokes Cleveland VA Medical CenterUnMercy Health Perrysburg HospitalGlucose [Mass/Vol]207 mg/hFOnhd28-90 [facility] HospitalComment on above:Performed By: #### 14829-0 #### PACHECO Ferraro ([id number]) [facility] ([facility]) [address] [place], [place] [address]Ggijyfg [Mass/Vol]159 mg/qPKcok96 - 99 mg/dLUnMercy Health Perrysburg HospitalInterpretation and review of laboratory resultsAbKettering Health Washington TownshipUnMercy Health Perrysburg HospitalGlucose [Mass/Vol]159 mg/aSEqnt28-32UffkrvqpndMercy Health Willard HospitalComment on above:Performed By: #### 39766-7 #### PACHECO Ferraro ([id number]) [facility] [address] [place] [address]Hibul function 2000 panelon 23-67-6614Vblmqwf BCP dye [Mass/Vol]3.6 g/dL3.4 - 5.0 g/dLUnMercy Health Perrysburg HospitalAnion gap [Moles/Vol]13 mmol/L10 - 20 mmol/CentervilleCalcium [Mass/Vol]9.3 mg/dL8.6 - 10.6 mg/dLUnMercy Health Perrysburg HospitalChloride [Moles/Vol]100 mmol/L98 - 107 mmol/CentervilleCO2 [Moles/Vol]26 mmol/L21 - 32 mmol/CentervilleCreatinine [Mass/Vol]0.60 mg/dL0.50 - 1.30 mg/dLUnMercy Health Perrysburg HospitaleGFR- PINMartins Ferry HospitalComment on above:Calculations of estimated GFR are performed using the 2020 CKD-EPI Study Refit equation without therace variable for the IDMS-Traceable creatinine methods. https://jasn.asnjournals.org/content//ASN.1506344877 Glucose [Mass/Vol]236 mg/wFQwkp98 - 99 mg/dLUnMercy Health Perrysburg Hospital Interpretation and review of laboratory resultsAbnormalUniTriHealthPhosphate [Mass/Vol]2.4 mg/dLLow2.5 - 4.9 mg/dLUnMercy Health Perrysburg HospitalComment on above:The performance characteristics of phosphorus testing in heparinized plasma have been validated by the individual laboratory site where testing is performed. Testing on heparinized plasma is not approved by the FDA; however, such approval is not necessary.Potassium [Moles/Vol]3.3 mmol/LLow 3.5 - 5.3 mmol/CentervilleSodium [Moles/Vol]136 mmol/L136 - 145 mmol/CentervilleUrea nitrogen [Mass/Vol]10 mg/dL6 - 23 mg/dLUnMercy Health Perrysburg HospitalUnMercy Health Perrysburg Hospital Albumin BCP dye [Mass/Vol]3.6 g/dLNormal3.4-5.0UnMercy Health Willard HospitalComment on above:Performed By: #### 96165-1 #### PACHECO Ferraro ([id number]) [facility] ([facility]) [address] [place] [address]Upxjc gap [Moles/Vol]13 mmol/CDjonyz83-18ZfnpgmpfsaMercy Health Willard HospitalComment on above:Performed By: #### 53207-7 #### PACHECO Ferraro ([id number]) [facility] ([facility]) [address] [place] [address]Bpsfkdm [Mass/Vol]9.3 mg/dLNormal8.6-10.6UnMercy Health Willard HospitalComment on above:Performed By: #### 52257-1 #### PACHECO Ferraro ([id number]) [facility] ([facility]) [address] [place] [address]Dzejoday [Moles/Vol]100 mmol/NTziwsj13-504NiqwwgwmrtMercy Health Willard HospitalComment on above:Performed By: #### 62863-6 #### PACHECO Ferraro ([id number]) [facility] ([facility]) [address] [place], [place] [address]UV1 [Moles/Vol]26 mmol/HZzrfox18-64ApfunfdsymMercy Health Willard HospitalComment on above:Performed By: #### 81770-4 #### PACHECO Ferraro ([id number]) [facility] ([facility]) [address] [place] [address]Mmfrtzwpwf [Mass/Vol]0.60 mg/dLNormal0.50-1.30UnMercy Health Willard HospitalComment on above:Performed By: #### 81724-2 #### PACHECO Ferraro ([id number]) [facility] ([facility]) [address] [place] [address] 30[address]HHW/1.73 sq M.predicted MDRD (S/P/Bld) [Vol rate/Area] mL/min/{1.73_m2}Normal>60UnMercy Health Willard HospitalComment on above:Result Comment: Calculations of estimated GFR are performed using the 2020 CKD-EPI Study Refit equation without the race variable for the IDMS-Traceable creatinine methods. https://jasn.asnjournals.org/content/early//ASN.0486579036Fvzmvqvbf By: #### 84102-6 #### PACHECO Ferraro ([id number]) [facility] ([facility]) [address] [place], [place] [address]Ulyafas [Mass/Vol]236 mg/hPIxqq75-10DmawzxhvzsMercy Health Willard HospitalComment on above:Performed By: #### 48214-9 #### PACHECO Ferarro ([id number]) [facility] ([facility]) [address] [place] [address]95[address]Ldxxhrnvo [Mass/Vol]2.4 mg/dLLow2.5-4.9UnMercy Health Willard HospitalComment on above:Result Comment: The performance characteristics of phosphorus testing in heparinized plasma have been validated by the individual laboratory site where testing is performed. Testing on heparinizedplasma is not approved by the FDA; however, such approval is not necessary.Performed By: #### 45082-3 #### PACHECO Ferraro ([id number]) [facility] ([facility]) [address] [place] [address]Pmbtuaghw [Moles/Vol]3.3 mmol/LLow3.5-5.3Our [facility] Of Mercy HospitalComment on above:Performed By: #### 59636-8 #### PACHECO Ferraro ([id number]) [facility] ([facility]) [address] [place] [address]Saowqm [Moles/Vol]136 mmol/CPxkbev814-907KffudldgmkMercy Health Willard HospitalComment on above:Performed By: #### 49729-0 #### PACHECO Ferraro ([id number]) [facility] ([facility]) [address] [place] [address] 920[address]Hqiq nitrogen [Mass/Vol]10 mg/dLNormal6-23UnMercy Health Willard HospitalComment on above:Performed By: #### [id number] #### PACHECO Ferraro ([id number]) [facility] ([facility]) [address] [place] [address] [id number] Test strip manual (Bld) [Mass/Vol]on 06-05-2023 Glucose [Mass/Vol]226 mg/nQXrqq18 - 99 mg/dLUnMercy Health Perrysburg Hospital Interpretation and review of laboratory resultsAbnoAultman HospitalGlucose [Mass/Vol]226 mg/yYYelf18-21 [facility] HospitalComment on above:Performed By: #### [id number] #### PACHECO Ferraro ([id number]) [facility] ([facility] [id number] [place] [address]Itzojcj [Mass/Vol]160 mg/sJGhzy85 - 99 mg/dLUnMercy Health Perrysburg HospitalInterpretation and review of laboratory resultsAbKettering Health Washington TownshipUnMercy Health Perrysburg HospitalGlucose [Mass/Vol]160 mg/tDLlxq31-45DullzkhlpqMercy Health Willard HospitalComment on above:Performed By: #### 73956-7 #### PACHECO Ferraro ([id number]) [facility] ([facility]) [address] [place], [place] [address]Nofixol [Mass/Vol]192 mg/fOIwrs04 - 99 mg/dLUnMercy Health Perrysburg HospitalInterpretation and review of laboratory resultsAbKettering Health Washington TownshipUnMercy Health Perrysburg HospitalGlucose [Mass/Vol]192 mg/nTLpsv28-86ClseoiigmqMercy Health Willard HospitalComment on above:Performed By: #### 95336-7 #### PACHECO Ferraro ([id number]) [facility] ([facility]) [address] [place], [place] [address]Bmswvzl [Mass/Vol]163 mg/iOUpfk05 - 99 mg/dLUnMercy Health Perrysburg HospitalInterpretation and review of laboratory resultsAbKettering Health Washington TownshipUnMercy Health Perrysburg HospitalGlucose [Mass/Vol]163 mg/xVEsdn49-85YeoevmunzoMercy Health Willard HospitalComment on above:Performed By: #### 83535-2 #### PACHECO Ferraro ([id number]) [facility] ([facility]) [address] [place], [place] [address]Ogdtb metabolic 2000 panelon 04-94-5881Nhysf gap [Moles/Vol] 12 mmol/L10 - 20 mmol/CentervilleCalcium [Mass/Vol]8.4 mg/dLLow8.6 - 10.6 mg/dLUnMercy Health Perrysburg HospitalChloride [Moles/Vol]102 mmol/L98 - 107 mmol/CentervilleCO2 [Moles/Vol]28 mmol/L 21 - 32 mmol/CentervilleCreatinine [Mass/Vol]0.56 mg/dL 0.50 - 1.30 mg/dLUnMercy Health Perrysburg HospitaleGFR- PINFUniTriHealthComment on above:Calculations of estimated GFR are performed using the 2020 CKD-EPI Study Refit equation without therace variable for the IDMS- Traceable creatinine methods. https://jasn.asnjournals.org/content//ASN.6414140212 Glucose [Mass/Vol]235 mg/vEFzii61 - 99 mg/dLUnMercy Health Perrysburg Hospital Interpretation and review of laboratory resultsAbnormalUniTriHealthPotassium [Moles/Vol]3.4 mmol/LLow3.5 - 5.3 mmol/CentervilleSodium [Moles/Vol]139 mmol/L136 - 145 mmol/CentervilleUrea nitrogen [Mass/Vol]14 mg/dL6 - 23 mg/dLKettering Health MiamisburgAnion gap [Moles/Vol]12 mmol/GDgwzbc32-45PkvsaiyfayMercy Health Willard HospitalComment on above:Performed By: #### 94114-5 #### PACHECO Ferraro ([id number]) [facility] ([facility]) [address] [place], [place] [address]Szipukz [Mass/Vol]8.4 mg/dLLow8.6-10.6UnMercy Health Willard HospitalComment on above:Performed By: #### 00160-5 #### PACHECO Ferraro ([id number]) [facility] ([facility]) [address] [place], [place] [address]Bjknnmie [Moles/Vol]102 mmol/EHnxmgp73-573RwjgizxcdzMercy Health Willard HospitalComment on above:Performed By: #### 22965-7 #### PACHECO Ferraro ([id number]) [facility] ([facility]) [address] [place], [place] [address]ES4 [Moles/Vol]28 mmol/QDpgoyf55-78KisygeqoqbOur Lady Of Mercy HospitalComment on above:Performed By: #### 51667-2 #### PACHECO Ferraro ([id number]) [facility] ([facility]) [address] [place], [place] [address]Pfvwtcpola [Mass/Vol]0.56 mg/dLNormal0.50-1.30UnMercy Health Willard HospitalComment on above:Performed By: #### 69488-1 #### PACHECO Ferraro ([id number]) [facility] ([facility]) [address] [place], [place] [address]HTJ/1.73 sq M.predicted MDRD (S/P/Bld) [Vol rate/Area] mL/min/{1.73_m2}Normal>60UnMercy Health Willard HospitalComment on above:Result Comment: Calculations of estimated GFR are performed using the 2020 CKD-EPI Study Refit equation without the race variable for the IDMS-Traceable creatinine methods. https://jasn.asnjournals.org/content/early/ASN.9543769249Aibdmgtau By: #### 09841-8 #### PACHECO Ferraro ([id number]) [facility] ([facility]) [address] [place], [place] [address]Zdxioob [Mass/Vol]235 mg/uOHhwp54-94XqrknozomvMercy Health Willard HospitalComment on above:Performed By: #### 42736-8 #### PACHECO Ferraro ([id number]) [facility] ([facility]) [address] [place], [place] [address]Tmomcmpbp [Moles/Vol]3.4 mmol/LLow3.5-5.3Our Lady Of Mercy HospitalComment on above:Performed By: #### 50790-8 #### PACHECO Ferraro ([id number]) [facility] ([facility]) [address] [place], [place] [address]Nqvfqe [Moles/Vol]139 mmol/SDrdvie687-233HcxlmzwudgMercy Health Willard HospitalComment on above:Performed By: #### 16897-4 #### PACHECO Ferraro ([id number]) [facility] ([facility]) [address] [place], [place] [address]Rybv nitrogen [Mass/Vol]14 mg/dLNormal6-23Our Lady Of Mercy HospitalComment on above:Performed By: #### 30680-4 #### PACHECO Ferraro ([id number]) [facility] ([facility]) [address] [place], [place] [address]KBV panel Auto (Bld)on 07-59-5120Hmnwpirndjl distribution width (RBC) [Ratio]13.6 %11.5 - 14.5 %[facility] Hematocrit (Bld) [Volume fraction]30.9 %Low41.0 - 52.0 %[facility] MiamisburgHemoglobin (Bld) [Mass/Vol]9.7 g/dLLow13.5 - 17.5 g/dLUnMercy Health Perrysburg HospitalInterpretation and review of laboratory resultsAbnormal [facility] (RBC) [Entitic mass]28.1 pg26.0 - 34.0 pg Marion HospitalHC (RBC) [Mass/Vol]31.4 g/dLLow32.0 - 36.0 g/dLKettering Health MiamisburgMCV (RBC) [Entitic vol]90 fL80 - 100 fL [facility] MiamisburgNucleated RBC/100 WBC (Bld) [Ratio]0.0 % [facility] MiamisburgPlatelets (Bld) [#/Vol]209 10*3/UC Medical CenterRBC (Bld) [#/Vol]3.45 10*6/[facility] John Medical CenterWBC (Bld) [#/Vol]8.3 10*3/[facility] Erythrocyte distribution width (RBC) [Ratio]13.6 %Famwcq65.5-14.5UnMercy Health Willard HospitalComment on above:Performed By: #### 30181-7 #### PACHECO Ferraro ([id number]) [facility] ([facility]) [address] [place], [place] [address]Zbsnzdcsys (Bld) [Volume fraction]30.9 %Low41.0-52.0 [facility] Mercy HospitalComment on above:Performed By: #### 49501-0 #### PACHECO Ferraro ([id number]) [facility] ([facility]) [address] [place], [place] [address]Qqkkzekbjl (Bld) [Mass/Vol]9.7 g/dLLow13.5-17.5UnMercy Health Willard HospitalComment on above:Performed By: #### 94689-7 #### PACHECO Ferraro (64305) [facility] ([facility]) [address] [place], [place] [address]KKB (RBC) [Entitic mass]28.1 huPpzwpq73.0-34.0UnMercy Health Willard HospitalComment on above:Performed By: #### 46111-3 #### PACHECO Ferraro (45588) [facility] ([facility]) [address] [place], [place] [address]LUBZ (RBC) [Mass/Vol]31.4 g/dLLow32.0-36.0UnMercy Health Willard HospitalComment on above:Performed By: #### 53399-4 #### PACHECO Ferraro (65008) [facility] ([facility]) [address] [place], [place] [address]MKW (RBC) [Entitic vol]90 oISavpbi22-523AejtfzebpfMercy Health Willard HospitalComment on above:Performed By: #### 26763-9 #### PACHECO Ferraro (61063) [facility] ([facility]) [address] [place], [place] [address]Hntxumxzv RBC/100 WBC (Bld) [Ratio]0.0 /100 WBCsNormal0.0-0.0 [facility] HospitalComment on above:Performed By: #### 32386-8 #### PACHECO Ferraro ([id number]) [facility] ([facility]) [address] [place], [place] [address]Czzsiuezl (Bld) [#/Vol]209 x10*3/rPOiwmot026-865CcniepuojpMercy Health Willard HospitalComment on above:Performed By: #### 59345-9 #### PACHECO Ferraro (29966) [facility] ([facility]) [address] [place], [place] [address]JQX (Bld) [#/Vol]3.45 x10*6/uLLow4.50-5.90UnMercy Health Willard HospitalComment on above:Performed By: #### 41291-9 #### PACHECO Ferraro (97497) [facility] ([facility]) [address] [place], [place] [address]GFS (Bld) [#/Vol]8.3 x10*3/uLNormal4.4-11.3UnMercy Health Willard HospitalComment on above:Performed By: #### 30248-9 #### PACHECO Ferraro (10550) [facility] ([facility]) [address] [place], [place] [address]Bqfwldi Test strip manual (Bld) [Mass/Vol]on 06-04-2023 Glucose [Mass/Vol]184 mg/bJXjxx10 - 99 mg/dLUnMercy Health Perrysburg Hospital Interpretation and review of laboratory resultsAbCleveland Clinic Union HospitalGlucose [Mass/Vol]184 mg/fGQnis36-96OqijeympuvMercy Health Willard HospitalComment on above:Performed By: #### 83696-5 #### PACHECO Ferraro ([id number]) [facility] ([facility]) [address] [place], [place] [address]Sjkzecy [Mass/Vol]243 mg/iQXarw25 - 99 mg/dLUnMercy Health Perrysburg HospitalInterpretation and review of laboratory resultsAbKettering Health Washington TownshipGlucose [Mass/Vol]243 mg/mCAxfs54-30TihfogvuziMercy Health Willard HospitalComment on above:Performed By: #### 92960-3 #### PACHECO Ferraro (09758) [facility] ([facility]) [address] [place], [place] [address]Ayndgtc [Mass/Vol]233 mg/nKAdss60 - 99 mg/dLUnMercy Health Perrysburg HospitalInterpretation and review of laboratory resultsAbKettering Health Washington TownshipGlucose [Mass/Vol]233 mg/jOCdfr97-77HmkctbsodeMercy Health Willard HospitalComment on above:Performed By: #### 86242-6 #### PACHECO Ferraro ([id number]) [facility] ([facility]) [address] [place], [place] [address]Tkisnpj [Mass/Vol]139 mg/nMYvhh26 - 99 mg/dLKettering Health MiamisburgInterpretation and review of laboratory resultsAbnoPomerene HospitalGlucose [Mass/Vol]139 mg/lZIgen29-92HpdfpfmujfMercy Health Willard HospitalComment on above:Performed By: #### 02192-1 #### PACHECO Ferraro (10130) [facility] ([facility]) [address] [place], [place] [address]Zq Panel Informationon 24-69-3976Pgdorzns StatusREKettering Health MiamisburgPRODUCT BLOOD HOQJ1983WvjndeqtigKettering Health [facility] PRODUCT [id number] Health MiamisburgUn ABOOUnMercy Health Perrysburg HospitalUn RHNegativeKettering Health MiamisburgUN MTZCRY429IxbhdrwggiKettering Health MiamisburgX INTEPCOMPUnMercy Health Perrysburg HospitalUnMercy Health Perrysburg HospitalPrepare RBC: 2 Unitson 86-02-0725Towsc Expiration DateMarch 2023 23:59 EDCleveland Clinic FoundationBlood Expiration DateApril 2023 23:59 [facility] [id number]-ADhynzncjkaWilson Street HospitalUnit [id number] [facility] MiamisburgBalexington va medical center metabolic 2000 panelon 28-16-7247Ribnq gap [Moles/Vol]10 mmol/L10 - 20 mmol/CentervilleCalcium [Mass/Vol]8.6 mg/dL8.6 - 10.6 mg/dLKettering Health MiamisburgChloride [Moles/Vol]105 mmol/L98 - 107 mmol/CentervilleCO2 [Moles/Vol]27 mmol/L21 - 32 mmol/CentervilleCreatinine [Mass/Vol]0.58 mg/dL0.50 - 1.30 mg/dLUnMercy Health Perrysburg HospitaleG- Parkview HealthComment on above:Calculations of estimated GFR are performed using the 2020 CKD-EPI Study Refit equation without therace variable for the IDMS-Traceable creatinine methods. https://jasn.asnjournals.org/content//ASN.6981440407 Glucose [Mass/Vol]181 mg/eKLfnn76 - 99 mg/dLUnMercy Health Perrysburg Hospital Interpretation and review of laboratory resultsAbnormalUniTriHealthPotassium [Moles/Vol]3.3 mmol/LLow3.5 - 5.3 mmol/[place]ervilleSodium [Moles/Vol]139 mmol/L136 - 145 mmol/CentervilleUrea nitrogen [Mass/Vol]10 mg/dL6 - 23 mg/dLKettering Health MiamisburgUnMercy Health Perrysburg HospitalAnion gap [Moles/Vol]10 mmol/LNormal 10-20UnMercy Health Willard HospitalComment on above:Performed By: #### 65029-7 #### PACHECO Ferraro ([id number]) [facility] ([facility]) [address] [place] [address]Evwcfna [Mass/Vol]8.6 mg/dLNormal8.6-10.6UnMercy Health Willard HospitalComment on above:Performed By: #### 12016-4 #### PACHECO Ferraro ([id number]) [facility] ([facility]) [address] [place] [address]Wwapomrw [Moles/Vol]105 mmol/JPcreul19-732FziguthprxMercy Health Willard HospitalComment on above:Performed By: #### 67399-5 #### PACHECO Ferraro (98227) [facility] ([facility]) [address] [place] [address]RL9 [Moles/Vol]27 mmol/BCydyea49-69DxslvtwafcMercy Health Willard HospitalComment on above:Performed By: #### 53401-7 #### PACHECO Ferraro (78762) [facility] ([facility]) [address] [place] [address]Zctaauhpcq [Mass/Vol]0.58 mg/dLNormal0.50-1.30UnMercy Health Willard HospitalComment on above:Performed By: #### 63137-5 #### PACHECO Ferraro (75471) [facility] ([facility]) [address] [place], [place] [address]WNC/1.73 sq M.predicted MDRD (S/P/Bld) [Vol rate/Area] mL/min/{1.73_m2}Normal>60UnMercy Health Willard HospitalComment on above:Result Comment: Calculations of estimated GFR are performed using the 2020 CKD-EPI Study Refit equation without the race variable for the IDMS-Traceable creatinine methods. https://jasn.asnjournals.org/content/early//ASN.0251666816Llsctaocm By: #### 67642-9 #### PACHECO Ferraro (69461) [facility] ([facility]) [address] [place] [address]Nddqcdr [Mass/Vol]181 mg/dOKhlw61-34IogiivrhinMercy Health Willard HospitalComment on above:Performed By: #### 58355-4 #### PACHECO Ferraro (95493) [facility] ([facility]) [address] [place], [place] [address]Qmsddcrus [Moles/Vol]3.3 mmol/LLow3.5-5.3Our [facility] Mercy HospitalComment on above:Performed By: #### 24004-4 #### PACHECO Ferraro (91738) [facility] ([facility]) [address] [place] [address]Kndvom [Moles/Vol]139 mmol/KMzwamg860-572SwrbaufkebMercy Health Willard HospitalComment on above:Performed By: #### 91779-6 #### PACHECO Ferraro (79721) [facility] ([facility]) [address] [place] [address]Uukh nitrogen [Mass/Vol]10 mg/dLNormal6-23Our [facility] HospitalComment on above:Performed By: #### 33819-6 #### PACHECO Ferraro ([id number]) [facility] ([facility]) [address] [place] [address]VDQ panel Auto (Bld)on 35-92-5868Bmofxamitoe distribution width (RBC) [Ratio]14.2 %11.5 - 14.5 %[facility] Hematocrit (Bld) [Volume fraction]31.3 %Low41.0 - 52.0 %[facility]burgHemoglobin (Bld) [Mass/Vol]10.1 g/dLLow13.5 - 17.5 g/dLKettering Health MiamisburgInterpretation and review of laboratory resultsAbnoThe Jewish Hospital (RBC) [Entitic mass]29.3 pg26.0 - 34.0 pg Marion HospitalHC (RBC) [Mass/Vol]32.3 g/dL32.0 - 36.0 g/dL Marion HospitalV (RBC) [Entitic vol]91 fL80 - 100 fL [facility]amisburgNucleated RBC/100 WBC (Bld) [Ratio]0.0 % [facility] MiamisburgPlatelets (Bld) [#/Vol]203 10*3/[facility] Medical CenterRBC (Bld) [#/Vol]3.45 10*6/[facility] John Medical CenterWBC (Bld) [#/Vol]9.4 10*3/[facility] Medical CenterUnMercy Health Perrysburg HospitalErythrocyte distribution width (RBC) [Ratio]14.2 %Normal 11.5-14.5UnMercy Health Willard HospitalComment on above:Performed By: #### 39897-2 #### PACHECO Ferraro (23725) [facility] ([facility]) [address] [place], [place] [address]Amthklspzz (Bld) [Volume fraction]31.3 %Low41.0-52.0 [facility] HospitalComment on above:Performed By: #### 49085-2 #### PACHECO Ferraro (76284) [facility] ([facility]) [address] [place], [place] [address]Zaztugwzvz (Bld) [Mass/Vol]10.1 g/dLLow13.5-17.5UnMercy Health Willard HospitalComment on above:Performed By: #### 09205-7 #### PACHECO Ferraro (92988) [facility] ([facility]) [address] [place], [place] [address]RMJ (RBC) [Entitic mass]29.3 ieJcpary87.0-34.0[facility] HospitalComment on above:Performed By: #### 02822-4 #### PACHECO Ferraro (54066) [facility] ([facility]) [address] [place] [address]BFQE (RBC) [Mass/Vol]32.3 g/aGGezcxk69.0-36.0[facility] HospitalComment on above:Performed By: #### 15387-9 #### PACHECO Ferraro (52358) [facility] ([facility]) [address] [place] [address]CCK (RBC) [Entitic vol]91 fWNmybml96-019ZokgxtfeqlMercy Health Willard HospitalComment on above:Performed By: #### 43884-1 #### PACHECO Ferraro (67261) [facility] ([facility]) [address] [place] [address]Jnphckzhn RBC/100 WBC (Bld) [Ratio]0.0 /100 WBCsNormal0.0-0.0 [facility] HospitalComment on above:Performed By: #### 61615-5 #### PACHECO Ferraro (51120) [facility] ([facility]) [address] [place] [address]Femweoflt (Bld) [#/Vol]203 x10*3/qOCodssl564-810WbovbnokuwMercy Health Willard HospitalComment on above:Performed By: #### 39087-8 #### PACHECO Ferraro (42305) [facility] ([facility]) [address] [place] [address]NTL (Bld) [#/Vol]3.45 x10*6/uLLow4.50-5.90UnMercy Health Willard HospitalComment on above:Performed By: #### 44098-2 #### PACHECO Ferraro (07203) [facility] ([facility]) [address] [place] [address]YWW (Bld) [#/Vol]9.4 x10*3/uLNormal4.4-11.3UnMercy Health Willard HospitalComment on above:Performed By: #### 27145-7 #### PACHECO Ferraro (08346) [facility] ([facility]) [address] [place] [address]Buvftyk Test strip manual (Bld) [Mass/Vol]on 06-03-2023 Glucose [Mass/Vol]207 mg/wRKqee82 - 99 mg/dLUnMercy Health Perrysburg Hospital Interpretation and review of laboratory resultsAbnoAultman HospitalGlucose [Mass/Vol]207 mg/uJRfmy65-62 [facility] HospitalComment on above:Performed By: #### 41638-2 #### PACHECO Ferraro (22387) [facility] ([facility]) [address] [place] [address]Ejhvpmt [Mass/Vol]224 mg/oCSkpx22 - 99 mg/dLUnMercy Health Perrysburg HospitalInterpretation and review of laboratory resultsAbProMedica Fostoria Community HospitalGlucose [Mass/Vol]224 mg/jHXuil41-13IlsjhvceyzMercy Health Willard HospitalComment on above:Performed By: #### 99528-9 #### PACHECO Ferraro ([id number]) [facility] ([facility]) [address] [place] [address]Sjtwerg [Mass/Vol]129 mg/dFTzaf30 - 99 mg/dLUnMercy Health Perrysburg HospitalInterpretation and review of laboratory resultsAbProMedica Fostoria Community HospitalGlucose [Mass/Vol]129 mg/hIHmwu39-07FyswnzsqrfMercy Health Willard HospitalComment on above:Performed By: #### 26375-6 #### PACHECO Ferraro (93121) [facility] ([facility]) [address] [place], [place] [address]TPM panel Auto (Bld)on 07-51-4704Kxwtezlmkzl distribution width (RBC) [Ratio]14.6 %High11.5 - 14.5 %[facility] Hematocrit (Bld) [Volume fraction]34.9 %Low41.0 - 52.0 %[facility] MiamisburgHemoglobin (Bld) [Mass/Vol]10.9 g/dLLow13.5 - 17.5 g/dLUnMercy Health Perrysburg HospitalInterpretation and review of laboratory resultsAbnoThe Jewish Hospital (RBC) [Entitic mass]28.7 pg26.0 - 34.0 pg Marion HospitalHC (RBC) [Mass/Vol]31.2 g/dLLow32.0 - 36.0 g/dLMarion HospitalV (RBC) [Entitic vol]92 fL80 - 100 fL [facility] MiamisburgNucleated RBC/100 WBC (Bld) [Ratio]0.0 % [facility] MiamisburgPlatelets (Bld) [#/Vol]243 10*3/[facility] Medical CenterRBC (Bld) [#/Vol]3.80 10*6/[facility] John Medical CenterWBC (Bld) [#/Vol]10.6 10*3/[facility] CenterErythrocyte distribution width (RBC) [Ratio] 14.6 %High11.5-14.5UnMercy Health Willard HospitalComment on above:Performed By: #### 19818-9 #### PACHECO Ferraro ([id number]) [facility] ([facility]) [address] [place] [address]Ndscmqfgfe (Bld) [Volume fraction]34.9 %Low41.0-52.0 [facility] HospitalComment on above:Performed By: #### 59385-7 #### PACHECO Ferraro (88639) [facility] ([facility]) [address] [place], [place] [address]Sofecnesuh (Bld) [Mass/Vol]10.9 g/dLLow13.5-17.5UnMercy Health Willard HospitalComment on above:Performed By: #### 24713-5 #### PACHECO Ferraro (48366) [facility] ([facility]) [address] [place], [place] [address]EQJ (RBC) [Entitic mass]28.7 klRwkcup87.0-34.0UnMercy Health Willard HospitalComment on above:Performed By: #### 76877-7 #### PACHECO Ferraro (74775) [facility] ([facility]) [address] [place], [place] [address]JLAH (RBC) [Mass/Vol]31.2 g/dLLow32.0-36.0UnMercy Health Willard HospitalComment on above:Performed By: #### 98848-2 #### PACHECO Ferraro ([id number]) [facility] ([facility]) [address] [place] [address]XMI (RBC) [Entitic vol]92 wRGykema29-890PqgrjtswtyMercy Health Willard HospitalComment on above:Performed By: #### 41117-1 #### PACHECO Ferraro (25662) [facility] ([facility]) [address] [place], [place] [address]Qajgwebot RBC/100 WBC (Bld) [Ratio]0.0 /100 WBCsNormal0.0-0.0 [facility] HospitalComment on above:Performed By: #### 35187-4 #### PACHECO Ferraro ([id number]) [facility] ([facility]) [address] [place], [place] [address]Rbjbcjmzu (Bld) [#/Vol]243 x10*3/bHFxlamj230-951SmsfeaexghMercy Health Willard HospitalComment on above:Performed By: #### 54578-9 #### PACHECO Ferraro ([id number]) [facility] ([facility]) [id number] [place] [address]PJU (Bld) [#/Vol]3.80 x10*6/uLLow4.50-5.90UnMercy Health Willard HospitalComment on above:Performed By: #### 11420-7 #### PACHECO Ferraro ([id number]) [facility] ([facility]) [address] [place] [address]40[address]AXK (Bld) [#/Vol]10.6 x10*3/uLNormal4.4-11.3[facility] Mer[facility] HospitalComment on above:Performed By: #### 55303-1 #### PACHECO Ferraro ([id number]) [facility] ([facility]) [address] [place] [address]Teliochlpbss 18-82-2433Ymauagdnhs Coag (PPP) [Mass/Vol]270 mg/dL200 - 400 mg/dLKettering Health MiamisburgFibrinogen Coag (PPP) [Mass/Vol]270 mg/rDSxzewo798-249VgibjogcmzMercy Health Willard Hospital Comment on above:Performed By: #### 92978-0 #### PACHECO Ferraro ([id number]) [facility] ([facility]) [address] [place] [address]Oecpoxqxqf Coag (PPP) [Mass/Vol]on 87-44-8716Jkvikbnlknwimk and review of laboratory resultsNoElyria Memorial HospitalGlucose Test strip manual (Bld) [Mass/Vol]on 30-44-7999Fgirxur [Mass/Vol]248 mg/eEPbzs06 - 99 mg/dLKettering Health MiamisburgInterpretation and review of laboratory resultsAbnoLouis Stokes Cleveland VA Medical CenterUnMercy Health Perrysburg HospitalGlucose [Mass/Vol]248 mg/cRKmdf03-62SaclhzijqzMercy Health Willard HospitalComment on above: Performed By: #### 05101-3 #### PACHECO Ferraro ([id number]) [facility] ([facility]) [id number] [place] [address]Tabdsgj [Mass/Vol]278 mg/zTTxrm98 - 99 mg/dLKettering Health [place]amisburgInterpretation and review of laboratory resultsAbKettering Health Washington TownshipUnMercy Health Perrysburg HospitalGlucose [Mass/Vol]233 mg/eSOqxj41 - 99 mg/dLUnMercy Health Perrysburg Hospital Interpretation and review of laboratory resultsAbnormalUTriHealth Bethesda Butler HospitalUnMercy Health Perrysburg HospitalGlucose [Mass/Vol]278 mg/oSZwwp41-28 [facility] HospitalComment on above:Performed By: #### 84177-6 #### PACHECO Ferraro ([id number]) [facility] ([facility]) [address] [place] [address] 10625Lclitdp [Mass/Vol]233 mg/yDVsrf64-60FdqwcfyktlMercy Health Willard HospitalComment on above:Performed By: #### 38113-0 #### PACHECO Freraro ([id number]) [facility] ([facility]) [address] [place] [address] 83148Rudyqzqbpiy 67-72-0995Kijuhhhig [Mass/Vol]1.74 mg/dL1.60 - 2.40 mg/dLUnMercy Health Perrysburg HospitalMagnesium [Mass/Vol]1.74 mg/dLNormal 1.60-2.40UnMercy Health Willard HospitalComment on above:Performed By: #### 53961-8 #### PACHECO Ferraro ([id number]) [facility] ([facility]) [address] [place] [address] 43603Bseogvqsa [Mass/Vol]on 00-37-7200Udbaelrdroghmw and review of laboratory resultsNoLouis Stokes Cleveland VA Medical CenterNo Panel Informationon 96-98-8452NwomrreimxMercy Health Perrysburg HospitalRenal function 2000 panelon 37-04-2681Hdocedl BCP dye [Mass/Vol]3.8 g/dL3.4 - 5.0 g/dLUnMercy Health Perrysburg HospitalAnion gap [Moles/Vol]11 mmol/L10 - 20 mmol/CentervilleCalcium [Mass/Vol]8.7 mg/dL8.6 - 10.6 mg/dLUnMercy Health Perrysburg HospitalChloride [Moles/Vol]102 mmol/L98 - 107 mmol/CentervilleCO2 [Moles/Vol]26 mmol/L21 - 32 mmol/[place] Creatinine [Mass/Vol]0.71 mg/dL0.50 - 1.30 mg/dLUnMercy Health Perrysburg HospitaleGFR- PINFUniTriHealthComment on above: Calculations of estimated GFR are performed using the 2020 CKD-EPI Study Refit equation without therace variable for the IDMS-Traceable creatinine methods. https://jasn.asnjournals.org/content//ASN.6690541479 Glucose [Mass/Vol]163 mg/sAChha03 - 99 mg/dLUnMercy Health Perrysburg Hospital Interpretation and review of laboratory resultsAbnoLouis Stokes Cleveland VA Medical CenterPhosphate [Mass/Vol]2.1 mg/dLLow2.5 - 4.9 mg/dLUnMercy Health Perrysburg HospitalComascension borgess allegan hospital on above:The performance characteristics of phosphorus testing in heparinized plasma have been validated by the individual laboratory site where testing is performed. Testing on heparinized plasma is not approved by the FDA; however, such approval is not necessary.Potassium [Moles/Vol]3.3 mmol/LLow 3.5 - 5.3 mmol/CentervilleSodium [Moles/Vol]136 mmol/L136 - 145 mmol/CentervilleUrea nitrogen [Mass/Vol]8 mg/dL6 - 23 mg/dLUnMercy Health Perrysburg HospitalAlbumin BCP dye [Mass/Vol]3.8 g/dL Normal3.4-5.0UnMercy Health Willard HospitalComment on above: Performed By: #### 91392-9 #### PACHECO Ferraro ([id number]) [facility] ([facility]) [address] [place] [address] 47956Errwz gap [Moles/Vol]11 mmol/IAuyhtl71-74JploudnwdnMercy Health Willard HospitalComment on above:Performed By: #### 82515-0 #### PACHECO Ferraro ([id number]) [facility] ([facility]) [address] [place] [address] 91022Ohjqgeg [Mass/Vol]8.7 mg/dLNormal8.6-10.6UnMercy Health Willard HospitalComment on above:Performed By: #### 73129-3 #### PACHECO Ferraro ([id number]) [facility] ([facility]) [address] [place], [place] [address]Ernvfvxn [Moles/Vol]102 mmol/CKellad69-010VlzatcadcfOur Lady Of Mercy HospitalComment on above:Performed By: #### 88001-4 #### PACHECO Ferraro ([id number]) [facility] ([facility]) [address] [place], [place] [address]DN8 [Moles/Vol]26 mmol/IWzizcd89-34BeauzyapxfOur Lady Of Mercy HospitalComment on above:Performed By: #### 45355-1 #### PACHECO Ferraro ([id number]) [facility] ([facility]) [address] [place] [address] 82179Dvpiyekdds [Mass/Vol]0.71 mg/dLNormal0.50-1.30Our [facility] Mercy HospitalComment on above:Performed By: #### 06525-3 #### PACHECO Ferraro ([id number]) [facility] ([facility]) [address] [place], [place] [address]WLM/1.73 sq M.predicted MDRD (S/P/Bld) [Vol rate/Area] mL/min/{1.73_m2}Normal>60UnMercy Health Willard HospitalComment on above:Result Comment: Calculations of estimated GFR are performed using the 2020 CKD-EPI Study Refit equation without the race variable for the IDMS-Traceable creatinine methods. https://jasn.asnjournals.org/content/early//ASN.8416733303Fxmgkhfxd By: #### 38362-7 #### PACHECO Ferraro ([id number]) [facility] ([facility]) [address] [place], [place] [address]Rcqeuko [Mass/Vol]163 mg/hVXyxk70-84CbtysbqtcxOur Lady Of Mercy HospitalComment on above:Performed By: #### 82500-4 #### PACHECO Ferraro ([id number]) [facility] ([facility]) [address] [place] [address] 96877Qvzabkomv [Mass/Vol]2.1 mg/dLLow2.5-4.9UnMercy Health Willard HospitalComment on above:Result Comment: The performance characteristics of phosphorus testing in heparinized plasma have been validated by the individual laboratory site where testing is performed. Testing on heparinizedplasma is not approved by the FDA; however, such approval is not necessary.Performed By: #### 96342-9 #### PACHECO Ferraro ([id number]) [facility] ([facility]) [address] [place] [address] 62959Nghbfqdhg [Moles/Vol]3.3 mmol/LLow3.5-5.3UnMercy Health Willard HospitalComment on above:Performed By: #### 92869-6 #### PACHECO Ferraro ([id number]) [facility] ([facility]) [address] [place] [address] 92743Cgnloo [Moles/Vol]136 mmol/XRmoemm529-809SwccznadzzMercy Health Willard HospitalComment on above:Performed By: #### 26385-9 #### PACHECO Ferraro ([id number]) [facility] ([facility]) [address] [place] [address] 43212Pdjr nitrogen [Mass/Vol]8 mg/dLNormal6-23UnMercy Health Willard HospitalComment on above:Performed By: #### 08513-3 #### PACHECO Ferraro ([id number]) [facility] ([facility]) [address] [place] [address] 74196FWP panel Auto (Bld)on 06-05-2081Yzswinruoyk distribution width (RBC) [Ratio]14.0 %11.5 - 14.5 %[facility] [place] Hematocrit (Bld) [Volume fraction]31.1 %Low41.0 - 52.0 %[facility]burgHemoglobin (Bld) [Mass/Vol]10.5 g/dLLow13.5 - 17.5 g/dLUnMercy Health Perrysburg HospitalInterpretation and review of laboratory resultsAbnormal [facility]als [facility] ClevelandMCH (RBC) [Entitic mass]29.0 pg26.0 - 34.0 pg [facility]amisburgMCHC (RBC) [Mass/Vol]33.8 g/dL32.0 - 36.0 g/dL [facility] MiamisburgMCV (RBC) [Entitic vol]86 fL80 - 100 fL [facility] MiamisburgNucleated RBC/100 WBC (Bld) [Ratio]0.0 % [facility] MiamisburgPlatelets (Bld) [#/Vol]233 10*3/UC Medical CenterRBC (Bld) [#/Vol]3.62 10*6/[facility] Medical CenterWBC (Bld) [#/Vol]9.7 10*3/[facility] Medical CenterUnMercy Health Perrysburg HospitalErythrocyte distribution width (RBC) [Ratio]14.0 %Normal 11.5-14.5UnMercy Health Willard HospitalComment on above:Performed By: #### 56772-9 #### PACHECO Ferraro ([id number]) [facility] ([facility]) [address] [place] [address] 26720Ywiahyzyvl (Bld) [Volume fraction]31.1 %Low41.0-52.0 [facility] HospitalComment on above:Performed By: #### 11523-4 #### PACHECO Ferraro ([id number]) [facility] ([facility]) [address] [place] [address] 73399Tvxsnznvas (Bld) [Mass/Vol]10.5 g/dLLow13.5-17.5UnMercy Health Willard HospitalComment on above:Performed By: #### 25452-2 #### PACHECO Ferraro ([id number]) [facility] ([facility]) [address] [place] [address] 96577UPV (RBC) [Entitic mass]29.0 tpNzxhor93.0-34.0UnMercy Health Willard HospitalComment on above:Performed By: #### 75283-9 #### PACHECO Ferraro ([id number]) [facility] ([facility]) [address] [place], [place] [address]CIZG (RBC) [Mass/Vol]33.8 g/iMXqfmxu40.0-36.0UnMercy Health Willard HospitalComment on above:Performed By: #### 63893-7 #### PACHECO Ferraro ([id number]) [facility] ([facility]) [address] [place], [place] [address]SVJ (RBC) [Entitic vol]86 tDZscpuj39-907SowtdvvvgtMercy Health Willard HospitalComment on above:Performed By: #### 55958-5 #### PACHECO Ferraro ([id number]) [facility] ([facility]) [address] [place], [place] [address]Rhnelzaxz RBC/100 WBC (Bld) [Ratio]0.0 /100 WBCsNormal0.0-0.0 [facility] HospitalComment on above:Performed By: #### 05400-6 #### PACHECO Ferraro ([id number]) [facility] ([facility]) [address] [place] [address] 38961Jahwbmxre (Bld) [#/Vol]233 x10*3/zPZredst741-385BdgodhyqgeMercy Health Willard HospitalComment on above:Performed By: #### 58949-3 #### PACHECO Ferraro (43514) [facility] ([facility]) [address] [place] [address] 77403ESB (Bld) [#/Vol]3.62 x10*6/uLLow4.50-5.90UnMercy Health Willard HospitalComment on above:Performed By: #### 99708-7 #### PACHECO Ferraro ([id number]) [facility] ([facility]) [address] [place] [address] 41578XCC (Bld) [#/Vol]9.7 x10*3/uLNormal4.4-11.3UnMercy Health Willard HospitalComment on above:Performed By: #### 69384-7 #### PACHECO Ferraro ([id number]) [facility] ([facility]) [address] [place], [place] [address]WC FLUORO IMAGES NO CHARGEon 40-37-5179UC FLUORO IMAGES NO CHARGEThese images are not reportable by radiology and will not be interpreted by Radiologists.NormalUnMercy Health Willard HospitalFibrinogen on 87-58-3710Yeelsjmzld Coag (PPP) [Mass/Vol]195 mg/nGWce622 - 400 mg/dL [facility] MiamisburgFibrinogen Coag (PPP) [Mass/Vol]195 mg/dLLow 200-400[facility] Mercy HospitalComment on above:Performed By: #### 01338-8 #### PACHECO Ferraro ([id number]) [facility] ([facility]) [address] [place], [place] [address]Hshfrlpvtl Coag (PPP) [Mass/Vol]on 51-55-9928Zrqcwfqxbesvse and review of laboratory resultsAbnormalUniversNorman Regional Hospital Moore – MooreGas and Carbon monoxide and Electrolytes panel (BldA)on 63-82-3129Mkeoh gap 4 (BldA) [Moles/Vol]11[facility] MiamisburgBase excess Calc (Bld) [Moles/Vol]-3.0000 mmol/LLow-2.0 - 3.0 mmol/L [facility] MiamisburgCalcium.ionized (BldA) [Moles/Vol]1.18 mmol/L 1.10 - 1.33 mmol/CentervilleChloride (BldA) [Moles/Vol] 106 mmol/L98 - 107 mmol/CentervilleCO2 (Bld) [Partial pressure]38 mm[Hg][facility] [place]burgGlucose [Mass/Vol]245 mg/dL High74 - 99 mg/dLKettering Health MiamisburgHCO3 (Bld) [Moles/Vol]22.0 mmol/L22.0 - 26.0 mmol/CentervilleHematocrit Est (Bld) [Volume fraction]32.0 %Low41.0 - 52.0 %[facility] [place] Hemoglobin (Bld) [Mass/Vol]10.5 g/dLLow13.5 - 17.5 g/dLUnMercy Health Perrysburg HospitalInhaled oxygen mfgvwusgcnfae18 %[facility] [place] Interpretation and review of laboratory resultsAbnormalUniTriHealthLactate (BldA) [Moles/Vol]2.0 mmol/L0.4 - 2.0 mmol/CentervilleOxygen (Bld) [Partial pressure]202 mm[Hg]HighKettering Health MiamisburgOxyhemoglobin (BldA) [Mass fraction]97.7 %94.0 - 98.0 % [facility] MiamisburgpH (Bld)7.37 [pH]Low7.38 - 7.42 pHKettering Health MiamisburgPotassium (BldA) [Moles/Vol]3.1 mmol/LLow3.5 - 5.3 mmol/L [facility] MiamisburgSodium (BldA) [Moles/Vol]136 mmol/L136 - 145 mmol/CentervilleUnMercy Health Perrysburg HospitalAnion gap 4 (BldA) [Moles/Vol]11 mmo/DEbsgvp74-22BzcwkndnbjOur Lady Of Mercy HospitalComment on above:Performed By: #### 68743-3 #### PACHECO Ferraro ([id number]) [facility] ([facility]) [address] [place] [address] 50724Zpvi excess Calc (Bld) [Moles/Vol]-3.0000 mmol/LLow-2.0-3.0 [facility] HospitalComment on above:Performed By: #### 38169-7 #### PACHECO Ferraro ([id number]) [facility] ([facility]) [address] [place] [address] 62012Cydpgti.ionized (BldA) [Moles/Vol]1.18 mmol/LNormal1.10-1.33 [facility] HospitalComment on above:Performed By: #### 04395-7 #### PACHECO Ferraro ([id number]) [facility] ([facility]) [address] [place] [address] 06693Hrgujtzz (BldA) [Moles/Vol]106 mmol/XQpgymh04-118XbiuwsbpjpMercy Health Willard HospitalComment on above:Performed By: #### 47801-5 #### PACHECO Ferraro ([id number]) [facility] ([facility]) [address] [place] [address] 53014QX8 (Bld) [Partial pressure]38 mm UkKneaqo05-03YcvkkrewweOur Lady Of Mercy HospitalComment on above:Performed By: #### 50512-6 #### PACHECO Ferraro ([id number]) [facility] ([facility]) [address] [place] [address] 80593Xpocrzg [Mass/Vol]245 mg/hAUyde39-16AibrszjmeeMercy Health Willard HospitalComment on above:Performed By: #### 37748-8 #### PACHECO Ferraro ([id number]) [facility] ([facility]) [address] [place] [address] 75372KKO1 (Bld) [Moles/Vol]22.0 mmol/IMximqw08.0-26.0[facility] HospitalComment on above:Performed By: #### 29369-6 #### PACHECO Ferraro (22211) [facility] ([facility]) [address] [place] [address] 69506Lbefzzmses Est (Bld) [Volume fraction]32.0 %Low41.0-52.0 [facility] HospitalComment on above:Performed By: #### 61502-5 #### PACHECO Ferraro ([id number]) [facility] ([facility]) [address] [place] [address] 82555Lywpnshazu (Bld) [Mass/Vol]10.5 g/dLLow13.5-17.5Our [facility] HospitalComment on above:Performed By: #### 86729-9 #### PACHECO Ferraro ([id number]) [facility] ([facility]) [address] [place] [address] 06332Gtzxyoz oxygen xhjumlmrtozhk91 %NormalUnMercy Health Willard HospitalComment on above:Performed By: #### 64683-0 #### PACHECO Ferraro ([id number]) [facility] ([facility]) [address] [place] [address] 27221Phgnptr (BldA) [Moles/Vol]2.0 mmol/LNormal0.4-2.0UnMercy Health Willard HospitalComment on above:Performed By: #### 63993-5 #### PACHECO Ferraro ([id number]) [facility] ([facility]) [address] [place] [address] 93222Crsfcg (Bld) [Partial pressure]202 mm NeLcwa48-78ZqqjomffayMercy Health Willard HospitalComment on above:Performed By: #### 28591-9 #### PACHECO Ferraro ([id number]) [facility] ([facility]) [address] [place] [address] 91672Uommlnpmygwjr (BldA) [Mass fraction]97.7 %Ttqaqc90.0-98.0 [facility] HospitalComment on above:Performed By: #### 17891-2 #### PACHECO Ferraro ([id number]) [facility] ([facility]) [address] [place] [address] 59816eZ (Bld)7.37 [pH]Low7.38-7.42UnMercy Health Willard HospitalComment on above:Performed By: #### 77360-1 #### PACHECO Ferraro ([id number]) [facility] ([facility]) [address] [place] [address] 59298Wsgrpwvig (BldA) [Moles/Vol]3.1 mmol/LLow3.5-5.3UnMercy Health Willard HospitalComment on above:Performed By: #### 56272-7 #### PACHECO Ferraro ([id number]) [facility] ([facility]) [address] [place] [address] 29341Bhbxtc (BldA) [Moles/Vol]136 mmol/UTnzyuh027-474QzhiuhufcbMercy Health Willard HospitalComment on above:Performed By: #### 81138-3 #### PACHECO Ferraro ([id number]) [facility] ([facility]) [address] [place] [address] 61650Rkcwl gap 4 (BldA) [Moles/Vol]13UnMercy Health Perrysburg HospitalBase excess Calc (Bld) [Moles/Vol]-3.6000 mmol/LLow-2.0 - 3.0 mmol/L [facility] MiamisburgCalcium.ionized (BldA) [Moles/Vol]1.17 mmol/L 1.10 - 1.33 mmol/CentervilleChloride (BldA) [Moles/Vol] 106 mmol/L98 - 107 mmol/CentervilleCO2 (Bld) [Partial pressure]38 mm[Hg][facility]burgGlucose [Mass/Vol]229 mg/dL High74 - 99 mg/dLUnMercy Health Perrysburg HospitalHCO3 (Bld) [Moles/Vol]21.5 mmol/LLow22.0 - 26.0 mmol/CentervilleHematocrit Est (Bld) [Volume fraction]32.0 %Low41.0 - 52.0 %[facility] Hemoglobin (Bld) [Mass/Vol]10.7 g/dLLow13.5 - 17.5 g/dLKettering Health MiamisburgInhaled oxygen kganjsspzgwby36 %[facility] Interpretation and review of laboratory resultsAbnormalUniTriHealthLactate (BldA) [Moles/Vol]1.9 mmol/L0.4 - 2.0 mmol/CentervilleOxygen (Bld) [Partial pressure]197 mm[Hg]HighUnMercy Health Perrysburg HospitalOxyhemoglobin (BldA) [Mass fraction]97.9 %94.0 - 98.0 % [facility] MiamisburgpH (Bld)7.36 [pH]Low7.38 - 7.42 pHUnMercy Health Perrysburg HospitalPotassium (BldA) [Moles/Vol]3.6 mmol/L3.5 - 5.3 mmol/L [facility] MiamisburgSodium (BldA) [Moles/Vol]137 mmol/L136 - 145 mmol/CentervilleUnMercy Health Perrysburg HospitalAnion gap 4 (BldA) [Moles/Vol]13 mmo/TToauip70-40NalxyhwxztMercy Health Willard HospitalComment on above:Performed By: #### 51239-1 #### PACHECO Ferraro ([id number]) [facility] ([facility]) [address] [place] [address] 13645Hsub excess Calc (Bld) [Moles/Vol]-3.6000 mmol/LLow-2.0-3.0 [facility] HospitalComment on above:Performed By: #### 68236-4 #### PACHECO Ferraro ([id number]) [facility] ([facility]) [address] [place] [address] 17870Dslvobt.ionized (BldA) [Moles/Vol]1.17 mmol/LNormal1.10-1.33 [facility] HospitalComment on above:Performed By: #### 89542-1 #### PACHECO Ferraro (65052) [facility] ([facility]) [address] [place] [address] 38643Brxwmfmf (BldA) [Moles/Vol]106 mmol/QAbtote06-278DvvwltzvtcMercy Health Willard HospitalComment on above:Performed By: #### 13713-9 #### PACHECO Ferraro (77861) [facility] ([facility]) [address] [place] [address] 67903UU8 (Bld) [Partial pressure]38 mm MhYuvcsb89-56YhafidxqwfOur Lady Of Mercy HospitalComment on above:Performed By: #### 23215-3 #### PACHECO Ferraro ([id number]) [facility] ([facility]) [address] [place] [address] 19528Bvidbkh [Mass/Vol]229 mg/iYZjcf07-20SeztxpkfgxMercy Health Willard HospitalComment on above:Performed By: #### 69955-7 #### PACHECO Ferraro (72402) [facility] ([facility]) [address] [place] [address] 70054JXK7 (Bld) [Moles/Vol]21.5 mmol/LLow22.0-26.0[facility] HospitalComment on above:Performed By: #### 03286-0 #### PACHECO Ferraro ([id number]) [facility] ([facility]) [address] [place] [address] 90669Likeritddx Est (Bld) [Volume fraction]32.0 %Low41.0-52.0 [facility] HospitalComment on above:Performed By: #### 74790-7 #### PACHECO Ferraro ([id number]) [facility] ([facility]) [address] [place] [address] 50660Uxrbauuhyb (Bld) [Mass/Vol]10.7 g/dLLow13.5-17.5UnMercy Health Willard HospitalComment on above:Performed By: #### 10092-5 #### PACHECO Ferraro (94831) [facility] ([facility]) [address] [place] [address] 64950Rizdagy oxygen njifkfrdnculp61 %NormalUnMercy Health Willard HospitalComment on above:Performed By: #### 65728-2 #### PACHECO Ferraro (25425) [facility] ([facility]) [address] [place] [address] 63017Uwbjfib (BldA) [Moles/Vol]1.9 mmol/LNormal0.4-2.0UnMercy Health Willard HospitalComment on above:Performed By: #### 10733-8 #### PACHECO Ferraro (13486) [facility] ([facility]) [address] [place] [address] 25275Tlmdqw (Bld) [Partial pressure]197 mm YfYtcu03-97JtkzqtxqahMercy Health Willard HospitalComment on above:Performed By: #### 78706-1 #### PACHECO Ferraro (69235) [facility] ([facility]) [address] [place] [address] 72875Clidjugulmbrg (BldA) [Mass fraction]97.9 %Aaodfd88.0-98.0 [facility] HospitalComment on above:Performed By: #### 71787-8 #### PACHECO Ferraro (85290) [facility] ([facility]) [address] [place], [place] [address]zH (Bld)7.36 [pH]Low7.38-7.42[facility] HospitalComment on above:Performed By: #### 55160-5 #### PACHECO Ferraro ([id number]) [facility] ([facility]) [address] [place] [address] 29431Lxivdvihc (BldA) [Moles/Vol]3.6 mmol/LNormal3.5-5.3UnMercy Health Willard HospitalComment on above:Performed By: #### 57303-3 #### PACHECO Ferraro ([id number]) [facility] ([facility]) [address] [place] [address] [id number] (BldA) [Moles/Vol]137 mmol/YKdjarx802-761MgukybqufkMercy Health Willard HospitalComment on above:Performed By: #### [id number] #### PACHECO Ferraro ([id number]) [facility] ([facility]) [address] [place] [address] [id number] gap 4 (BldA) [Moles/Vol]10[facility] MiamisburgBase excess Calc (Bld) [Moles/Vol]-1.3000 mmol/L-2.0 - 3.0 mmol/L [facility] MiamisburgCalcium.ionized (BldA) [Moles/Vol]1.15 mmol/L 1.10 - 1.33 mmol/CentervilleChloride (BldA) [Moles/Vol] 106 mmol/L98 - 107 mmol/CentervilleCO2 (Bld) [Partial pressure]40 mm[Hg][facility] MiamisburgGlucose [Mass/Vol]224 mg/dL High74 - 99 mg/dLUnMercy Health Perrysburg HospitalHCO3 (Bld) [Moles/Vol]23.7 mmol/L22.0 - 26.0 mmol/CentervilleHematocrit Est (Bld) [Volume fraction]36.0 %Low41.0 - 52.0 %[facility] Hemoglobin (Bld) [Mass/Vol]12.0 g/dLLow13.5 - 17.5 g/dLKettering Health MiamisburgInhaled oxygen kqqmrhpjkpebm53 %[facility] Interpretation and review of laboratory resultsAbnormalUniTriHealthLactate (BldA) [Moles/Vol]1.4 mmol/L0.4 - 2.0 mmol/[place]ervilleOxygen (Bld) [Partial pressure]197 mm[Hg]HighKettering Health MiamisburgOxyhemoglobin (BldA) [Mass fraction]98.4 %High94.0 - 98.0 %[facility] MiamisburgpH (Bld)7.38 [pH]7.38 - 7.42 pHKettering Health MiamisburgPotassium (BldA) [Moles/Vol]4.1 mmol/L3.5 - 5.3 mmol/L [facility] MiamisburgSodium (BldA) [Moles/Vol]136 mmol/L136 - 145 mmol/CentervilleUnMercy Health Perrysburg HospitalAnion gap 4 (BldA) [Moles/Vol]10 mmo/QUcohqh81-75WzepaxwcxjMercy Health Willard HospitalComment on above:Performed By: #### [id number] #### PACHECO Ferraro ([id number]) [facility] ([facility]) [address] [place] [address] [id number] excess Calc (Bld) [Moles/Vol]-1.3000 mmol/LNormal -2.0-3.0UnMercy Health Willard HospitalComment on above:Performed By: #### [id number] #### PACHECO Ferraro ([id number]) [facility] ([facility]) [address] [place] [address] [id number].ionized (BldA) [Moles/Vol]1.15 mmol/LNormal1.10-1.33 [facility] Of Mercy HospitalComment on above:Performed By: #### 22305-4 #### PACHECO Ferraro ([id number]) [facility] ([facility]) [address] [place] [address] 10424Froelkac (BldA) [Moles/Vol]106 mmol/DNqrqgt49-564DlapevhcdeMercy Health Willard HospitalComment on above:Performed By: #### 98580-0 #### PACHECO Ferraro ([id number]) [facility] ([facility]) [address] [place] [address] 73612PN5 (Bld) [Partial pressure]40 mm OpChhhjo46-56YlxdnievdmOur Lady Of Mercy HospitalComment on above:Performed By: #### 81705-3 #### PACHECO Ferraro ([id number]) [facility] ([facility]) [address] [place] [address] 27314Pxlvrot [Mass/Vol]224 mg/qLCsar75-48AlubydzcmkOur Lady Of Mercy HospitalComment on above:Performed By: #### 20962-9 #### PACHECO Ferraro (94509) [facility] ([facility]) [address] [place] [address] 76401YSL7 (Bld) [Moles/Vol]23.7 mmol/QGtysvi53.0-26.0Our [facility] Of [facility] HospitalComment on above:Performed By: #### 03078-4 #### PACHECO Ferraro ([id number]) [facility] ([facility]) [address] [place] [address] 53635Jrxwqnucty Est (Bld) [Volume fraction]36.0 %Low41.0-52.0 [facility] Of [facility] HospitalComment on above:Performed By: #### 33601-8 #### PACHECO Ferraro ([id number]) [facility] ([facility]) [address] [place] [address] 52712Ptbqzisefj (Bld) [Mass/Vol]12.0 g/dLLow13.5-17.5Our [facility] Of [facility] HospitalComment on above:Performed By: #### 40552-2 #### PACHECO Ferraro ([id number]) [facility] ([facility]) [address] [place] [address] 82476Ljevtlv oxygen fblobybucmtea98 %NormalUnMercy Health Willard HospitalComment on above:Performed By: #### 97720-0 #### PACHECO Ferraro (50624) [facility] ([facility]) [address] [place], [place] [address]Singkpi (BldA) [Moles/Vol]1.4 mmol/LNormal0.4-2.0UnMercy Health Willard HospitalComment on above:Performed By: #### 97109-7 #### PACHECO Ferraro (24541) [facility] ([facility]) [address] [place], [place] [address]Ramgwa (Bld) [Partial pressure]197 mm GhGbqi39-67TkjjrgnulaMercy Health Willard HospitalComment on above:Performed By: #### 26657-2 #### PACHECO Ferraro (14179) [facility] ([facility]) [address] [place] [address] 13443Lxntvntjyxjal (BldA) [Mass fraction]98.4 %High94.0-98.0 [facility] Of [facility] HospitalComment on above:Performed By: #### 74308-5 #### PACHECO Ferraro (11131) [facility] ([facility]) [address] [place] [address] 39033kN (Bld)7.38 [pH]Normal7.38-7.42Our [facility] Of Mercy HospitalComment on above:Performed By: #### 16205-3 #### PACHECO Ferraro ([id number]) [facility] ([facility]) [address] [place] [address] 19483Zwpysvvrl (BldA) [Moles/Vol]4.1 mmol/LNormal3.5-5.3UnMercy Health Willard HospitalComment on above:Performed By: #### 24511-6 #### PACHECO Ferraro ([id number]) [facility] ([facility]) [address] [place] [address] 92723Fqulkr (BldA) [Moles/Vol]136 mmol/WCxawyy134-403TbwebyyqrhMercy Health Willard HospitalComment on above:Performed By: #### 58743-5 #### PACHECO Ferraro ([id number]) [facility] ([facility]) [address] [place] [address] 85593Trkaz gap 4 (BldA) [Moles/Vol]11UnMercy Health Perrysburg HospitalBase excess Calc (Bld) [Moles/Vol]-2.3000 mmol/LLow-2.0 - 3.0 mmol/L [facility] MiamisburgCalcium.ionized (BldA) [Moles/Vol]1.20 mmol/L 1.10 - 1.33 mmol/CentervilleChloride (BldA) [Moles/Vol] 105 mmol/L98 - 107 mmol/CentervilleCO2 (Bld) [Partial pressure]38 mm[Hg][facility] MiamisburgGlucose [Mass/Vol]145 mg/dL High74 - 99 mg/dLUnMercy Health Perrysburg HospitalHCO3 (Bld) [Moles/Vol]22.5 mmol/L22.0 - 26.0 mmol/CentervilleHematocrit Est (Bld) [Volume fraction]37.0 %Low41.0 - 52.0 %[facility] Hemoglobin (Bld) [Mass/Vol]12.4 g/dLLow13.5 - 17.5 g/dLKettering Health MiamisburgInhaled oxygen jsipjhsqzfmqk73 %[facility] Interpretation and review of laboratory resultsAbnormalUniTriHealthLactate (BldA) [Moles/Vol]1.1 mmol/L0.4 - 2.0 mmol/CentervilleOxygen (Bld) [Partial pressure]209 mm[Hg]HighUnMercy Health Perrysburg HospitalOxyhemoglobin (BldA) [Mass fraction]98.0 %94.0 - 98.0 % [facility] MiamisburgpH (Bld)7.38 [pH]7.38 - 7.42 pHUnMercy Health Perrysburg HospitalPotassium (BldA) [Moles/Vol]2.9 mmol/LCritically low3.5 - 5.3 mmol/CentervilleSodium (BldA) [Moles/Vol]136 mmol/L 136 - 145 mmol/CentervilleUnMercy Health Perrysburg HospitalAnion gap 4 (BldA) [Moles/Vol]11 mmo/WKxmyls29-21JjmdsmidhiMercy Health Willard HospitalComment on above:Performed By: #### 26507-7 #### PACHECO Ferraro ([id number]) [facility] ([facility]) [address] [place] [address] 31849Jbeo excess Calc (Bld) [Moles/Vol]-2.3000 mmol/LLow-2.0-3.0 [facility] Of [facility] HospitalComment on above:Performed By: #### 06935-0 #### PACHECO Ferraro (83507) [facility] ([facility]) [address] [place] [address] 92118Iwxvtel.ionized (BldA) [Moles/Vol]1.20 mmol/LNormal1.10-1.33 [facility] HospitalComment on above:Performed By: #### 29020-3 #### PACHECO Ferraro (05419) [facility] ([facility]) [address] [place] [address] 57022Nxdvyygg (BldA) [Moles/Vol]105 mmol/HOcqbhm42-395AyvjqywkkkMercy Health Willard HospitalComment on above:Performed By: #### 01848-6 #### PACHECO Ferraro (07700) [facility] ([facility]) [address] [place] [address] 29194EM8 (Bld) [Partial pressure]38 mm McWdpefl08-78TawxpvyobjOur Lady Of Mercy HospitalComment on above:Performed By: #### 57634-4 #### PACHECO Ferraro ([id number]) [facility] ([facility]) [address] [place] [address] 85165Tippbae [Mass/Vol]145 mg/fTLjfw45-43AkcduaapbpMercy Health Willard HospitalComment on above:Performed By: #### 82619-6 #### PACHECO Ferraro (74494) [facility] ([facility]) [address] [place] [address] 53810GDJ3 (Bld) [Moles/Vol]22.5 mmol/IPjfswl71.0-26.0UnMercy Health Willard HospitalComment on above:Performed By: #### 86432-4 #### PACHECO Ferraro (30903) [facility] ([facility]) [address] [place] [address] 56933Laykyfhoke Est (Bld) [Volume fraction]37.0 %Low41.0-52.0 [facility] Of [facility] HospitalComment on above:Performed By: #### 57516-4 #### PACHECO Ferraro (10139) [facility]) [address] [place] [address] 94633Fiazogjroh (Bld) [Mass/Vol]12.4 g/dLLow13.5-17.5UnMercy Health Willard HospitalComment on above:Performed By: #### 72039-0 #### PACHECO Ferraro (58803) [facility] ([facility]) [address] [place] [address] 94583Gbckkoa oxygen vrcyixrepkitb53 %NormalUnMercy Health Willard HospitalComment on above:Performed By: #### 29399-7 #### PACHECO Ferraro (38526) [facility] ([facility]) [address] [place] [address] 09169Lbsqbxl (BldA) [Moles/Vol]1.1 mmol/LNormal0.4-2.0UnMercy Health Willard HospitalComment on above:Performed By: #### 59370-8 #### PACHECO Ferraro (83803) [facility] ([facility]) [address] [place] [address] 07544Vibvto (Bld) [Partial pressure]209 mm AvAszk24-21FpaqtqcxezMercy Health Willard HospitalComment on above:Performed By: #### 41245-7 #### PACHECO Ferraro (85505) [facility] ([facility]) [address] [place] [address] 31719Zsknrokmomakt (BldA) [Mass fraction]98.0 %Njdipx33.0-98.0 [facility] HospitalComment on above:Performed By: #### 92577-1 #### PACHECO Ferraro (52105) [facility] ([facility]) [address] [place] [address] 55234wJ (Bld)7.38 [pH]Normal7.38-7.42[facility] Of [facility] HospitalComment on above:Performed By: #### 79313-2 #### PACHECO Ferraro (30653) [facility] ([facility]) [address] [place] [address] 01671Szrqahths (BldA) [Moles/Vol]2.9 mmol/LCritically low3.5-5.3 [facility] HospitalComment on above:Performed By: #### 96195-3 #### PACHECO Ferraro (48831) [facility] ([facility]) [address] [place] [address] 44973Msynab (BldA) [Moles/Vol]136 mmol/ZAndbnh951-836CvkyasgrbzMercy Health Willard HospitalComment on above:Performed By: #### 44739-0 #### PACHECO Ferraro (05864) [facility] ([facility]) [address] [place] [address] 23374Tejfbyi Test strip manual (Bld) [Mass/Vol]on 06-01-2023 Glucose [Mass/Vol]178 mg/cNTgrj25 - 99 mg/dLUnMercy Health Perrysburg Hospital Interpretation and review of laboratory resultsAbnoLouis Stokes Cleveland VA Medical CenterUnMercy Health Perrysburg HospitalGlucose [Mass/Vol]178 mg/bMDroy58-23 [facility] HospitalComment on above:Performed By: #### 04393-8 #### PACHECO Ferraro (25157) [facility] ([facility]) [address] [place] [address] 94028Knrawhi [Mass/Vol]99 mg/dL74 - 99 mg/dLUnMercy Health Perrysburg HospitalInterpretation and review of laboratory resultsNoAultman HospitalGlucose [Mass/Vol]99 mg/yVYlvigj08-52EqkdshumlvMercy Health Willard HospitalComment on above: Performed By: #### 2341-6 #### PACHECO Ferraro (81247) [facility] ([facility]) [address] [place], [place] [address]Enkqhwvvksy 37-32-6688Hqxpvxlxn [Mass/Vol]1.74 mg/dL1.60 - 2.40 mg/dLKettering Health MiamisburgMagnesium [Mass/Vol]1.74 mg/dLNormal 1.60-2.40Our [facility] Of [facility] HospitalComment on above:Performed By: #### 78082-5 #### PACHECO Ferraro (40986) [facility] ([facility]) [address] [place], [place] [address]Ouegnjcff [Mass/Vol]on 53-46-9376Gpgainrxoqkjcm and review of laboratory resultsNormalUCincinnati Shriners HospitalVERAB/VERIFY ABORHon 95-89-3484TVO group Nom (Bld)ONLakeHealth Beachwood Medical CenterComment on above:Performed By: #### VERAB #### PACHECO Ferraro (59263) [facility] ([facility]) [address] [place] [address] 15526C Ag Ql (Bld)NegativeNoLouis Stokes Cleveland VA Medical CenterComment on above:Performed By: #### VERAB #### PACHECO Ferraro (16263) [facility] ([facility]) [address] [place] [address] 01987Bfluso ABO/Rh Group Test (VERAB)on 91-61-2360VVD group Nom (Bld)OUTriHealth Bethesda Butler HospitalD Ag Ql (Bld)NegativePremier Health Miami Valley Hospital SouthXR tomography Unspecified body regionon 48-66-6104Fwfbk images are not reportable by radiology and will not be interpreted by Radiologists.IMAGINGThese images are not reportable by radiology and will not be interpreted by Radiologists.IMAGINGNo Panel InformationOrdered By: Antione Hong on 06-56-1162Cbxcwx Krsb91MRFDtreoqibybUC Medical Center Work Phone: p Buwl2kpcaxxpIfbtgbrlsrKettering Health Miamisburg Work Phone: P [phone] [facility] Work Phone: P [phone] [facility] Work Phone: PR [phone] [facility] Work Phone: Q [phone] [facility] Work Phone: QRS Gszbm03brxdxBfrduofpqxOtis R. [facility] for [facility] Work Phone: QRS [id number] [facility] Work Phone: [phone] [phone] [facility] Work Phone: QTC Calculation(Bazett)414 [facility] Work Phone: QTC [phone] [facility] Work Phone: [phone] Hanford-20deOhio State Harding Hospital Work Phone: T Ycqy25vqhrzzdOserdzgyatWestern Reserve Hospital Work Phone: T Rrftzv808 [facility] Work Phone: [phone] Iont89RWYJlgvwdaqdzUC Medical Center Work Phone: [facility] Work Phone: No Panel Informationon 85-51-0561Icluxx sinus rhythm Nonspecific T wave abnormality No previous ECGs available Confirmed by Antione Hong ([id number]) on 05/18/2023 4:34:09 PMAntione Pittman MD - 05/18/2023 Normal sinus rhythm Nonspecific T wave abnormality No previous ECGs available Confirmed by Antione Hong ([id number]) on 05/18/2023 4:34:09 PM [facility] Work Phone: Aasic metabolic 2000 panelon 21-19-3935Axyoy gap [Moles/Vol]15 mmol/VRmmhpa92-40VconurntadOur Lady Of [facility]cy Hospital Comment on above:Performed By: #### 93415-5 #### PACHECO Ferraro ([id number]) [facility] ([facility]) [address] [place], [place] [address]Kvvxhcf [Mass/Vol]10.1 mg/dLNormal8.6-10.6Our [facility] Of [facility] HospitalComment on above:Performed By: #### 60082-2 #### PACHECO Ferraro (74764) [facility] ([facility]) [address] [place], [place] [address]Zwmwmzqb [Moles/Vol]107 mmol/PZtlbhr45-095ZxkkycxyygMercy Health Willard HospitalComment on above:Performed By: #### 81649-8 #### PACHECO Ferraro (45704) [facility] ([facility]) [address] [place] [address] 23280EV6 [Moles/Vol]23 mmol/MJrklif72-31PfrkkexgbvMercy Health Willard HospitalComment on above:Performed By: #### 65163-7 #### PACHECO Ferraro (34790) [facility] ([facility]) [address] [place], [place] [address]Ylieycxeui [Mass/Vol]0.73 mg/dLNormal0.50-1.30[facility] Of [facility] HospitalComment on above:Performed By: #### 89600-6 #### PACHECO Ferraro ([id number]) [facility] ([facility]) [address] [place], [place] [address]PDF/1.73 sq M.predicted MDRD (S/P/Bld) [Vol rate/Area] mL/min/{1.73_m2}Normal>60UnMercy Health Willard HospitalComment on above:Result Comment: Calculations of estimated GFR are performed using the 2020 CKD-EPI Study Refit equation without the race variable for the IDMS-Traceable creatinine methods. https://jasn.asnjournals.org/content//ASN.3652488325Smmccgmdi By: #### 68810-9 #### PACHECO Ferraro (23810) [facility] ([facility]) [address] [place], [place] [address]Ccffdjv [Mass/Vol]89 mg/wBUabuvo93-05VkhfceovbqOur Lady Of Mercy HospitalComment on above:Performed By: #### 91741-8 #### PACHECO Ferraro (25755) [facility] ([facility]) [address] [place], [place] [address]Mmcmtxjel [Moles/Vol]3.9 mmol/LNormal3.5-5.3Our [facility] Of [facility] HospitalComment on above:Performed By: #### 07511-4 #### PACHECO Ferraro ([id number]) [facility] ([facility]) [address] [place] [address] 74994Qeotkd [Moles/Vol]141 mmol/PQfoazn710-444ZxtviecgchMercy Health Willard HospitalComment on above:Performed By: #### 48184-8 #### PACHECO Ferraro (28762) [facility] ([facility]) [address] [place] [address] 80810Euwc nitrogen [Mass/Vol]13 mg/dLNormal6-23Our [facility] Of [facility] HospitalComment on above:Performed By: #### 42895-8 #### PACHECO Ferraro ([id number]) [facility] ([facility]) [address] [place] [address] 71125Lzaiq type and Indirect antibody screen panel (Bld)on 67-88-4166DFC group Nom (Bld)ONormalOur Lady Of Mercy HospitalComment on above:Performed By: #### 87199-6 #### PACHECO Ferraro (95684) [facility] ([facility]) [address] [place] [address] 45645Itifi group antibody screen QlNegativeNoLouis Stokes Cleveland VA Medical CenterComment on above:Performed By: #### 06548-3 #### PACHECO Ferraro (88621) [facility] ([facility]) [address] [place] [address] 91072U Ag Ql (Bld)NegativeNoLouis Stokes Cleveland VA Medical CenterComment on above:Result Comment: 2nd ABO test required. Order and Collect VERABPerformed By: #### 35752-2 #### PACHECO Ferraro (25484) [facility] ([facility]) [address] [place] [address] 94353EAC panel Auto (Bld)on 43-92-9903Bjgcyygbial distribution width (RBC) [Ratio]14.4 %Yengfp41.5-14.5Our [facility] Of [facility] HospitalComment on above:Performed By: #### 81807-3 #### PACHECO Ferraro (03252) [facility] ([facility]) [address] [place] [address] 04043Nbucqfqmyf (Bld) [Volume fraction]42.8 %Ztzcuu12.0-52.0 [facility] HospitalComment on above:Performed By: #### 96171-3 #### PACHECO Ferraro (92590) [facility] ([facility]) [address] [place] [address] 11719Nbybdneeeq (Bld) [Mass/Vol]14.3 g/bYFeenuq02.5-17.5UnMercy Health Willard HospitalComment on above:Performed By: #### 90386-1 #### PACHECO Ferraro (16328) [facility] ([facility]) [address] [place] [address] 63021GZB (RBC) [Entitic mass]29.3 ggPecgcn38.0-34.0UnMercy Health Willard HospitalComment on above:Performed By: #### 97923-6 #### PACHECO Ferraro (23607) [facility] ([facility]) [address] [place] [address] 28206DBYZ (RBC) [Mass/Vol]33.4 g/mFRiqufe15.0-36.0UnMercy Health Willard HospitalComment on above:Performed By: #### 43191-4 #### PACHECO Ferraro (96730) [facility] ([facility]) [address] [place] [address] 23107ZQJ (RBC) [Entitic vol]88 oNIuvicn48-834ZzgzmxiuyeMercy Health Willard HospitalComment on above:Performed By: #### 53942-6 #### PACHECO Ferraro ([id number]) [facility] ([facility]) [address] [place], [place] [address]Mqtwktfrg RBC/100 WBC (Bld) [Ratio]0.0 /100 WBCsNormal0.0-0.0 [facility] HospitalComment on above:Performed By: #### 04585-7 #### PACHECO Ferraro ([id number]) [facility] ([facility]) [address] [place], [place] [address]Rwjnyqzgm (Bld) [#/Vol]287 x10*3/aBXpofit596-486EuzskoslsmMercy Health Willard HospitalComment on above:Performed By: #### 24901-9 #### PACHECO Ferraro (15690) [facility] ([facility]) [address] [place], [place] [address]YAI (Bld) [#/Vol]4.88 x10*6/uLNormal4.50-5.90UnMercy Health Willard HospitalComment on above:Performed By: #### 39740-8 #### PACHECO Ferraro ([id number]) [facility] ([facility]) [address] [place] [address] 43405KRG (Bld) [#/Vol]6.6 x10*3/uLNormal4.4-11.3UnMercy Health Willard HospitalComment on above:Performed By: #### 22697-8 #### PACHECO Ferraro (48261) [facility] ([facility]) [address] [place], [place] [address]BOA 12-LEADon 19-16-8225TAW 12-LEADVentricular Rate 73 Atrial Rate 73 P-R Interval 144 QRS Duration 86 Q-T Interval 376 QTC Calculation(Bazett) 414 P Hanford 2 R Hanford -20 T Hanford 15 QRS Count 12 Q Onset 213 P Onset 141 P Offset 186 T Offset 401 QTC Fredericia 401 Diagnosis Normal sinus rhythm Nonspecific T wave abnormality No previous ECGs available Confirmed by Antione Hong ([id number]) on 05/18/2023 4:34:09 PMNSt. James Hospital and Clinictaphylococcus aureus.methicillin resistant isolateon 05-17-2023 MRSA isol Org specific cx Ql (Nose)Test: Staphylococcus aureus/MRSA colonization, Culture Specimen Source: Anterior Nares Specimen Type: Swab Specimen Date: 05/17/2023 1:43 PM Result Date: 05/19/2023 8:32 AM Result Status: Final result Abnormal: Yes Resulting Lab: [facility] [address] [facility] [address] CULTURE Isolated: Methicillin Susceptible Staphylococcus aureus (MSSA) (Abnormal) AbnormalOur Lady Of Mercy HospitalComment on above:Performed By: #### 11527-8 #### PACHECO Ferraro ([id number]) [facility] ([facility]) [address] [place] [address] 65339UcF0m (Bld) [Mass fraction]on 28-04-5849Ftnlksc glucose Estimated from glycated hemoglobin (Bld) [Mass/Vol]148 mg/dLNormalNot EstablishedOur Lady Of Mercy HospitalComment on above:Order Comment: Diagnosis of Diabetes-Adults Non-Diabetic: < or = 5.6% Increased risk for developing diabetes: 5.7-6.4% Diagnostic of diabetes: > or = 6.5% Monitoring of Diabetes Age (y)....................... Therapeutic Goal (%) Adults: >18.........................<7.0 Pediatrics: 13-18...................<7.5 Pediatrics: 7-12....................<8.0 Pediatrics: 0-6..................... 7.5-8.5 [place] [employer]. Diabetes Care 33(S1)Mar 2009Performed By: #### 4548-4 #### PACHECO Ferraro ([id number]) [facility] ([facility]) [address] [place] [address] 97430Urfpzktmre A1c/Hemoglobin.totalon 42-90-2987EeL5k (Bld) [Mass fraction]6.8 %[facility] State Health SystemComment on above:Order Comment: Diagnosis of Diabetes-Adults Non-Diabetic: < or = 5.6% Increased risk for developing diabetes: 5.7-6.4% Diagnostic of diabetes: > or = 6.5% Monitoring of Diabetes Age (y)....................... Therapeutic Goal (%) Adults: >18.........................<7.0 Pediatrics: 13-18...................<7.5 Pediatrics: 7-12....................<8.0 Pediatrics: 0-6..................... 7.5-8.5 [place] [employer]. Diabetes Care 33(S1)Mar 2009Performed By: #### 4548-4 #### PACHECO Ferraro ([id number]) [facility] ([facility]) [address] [place] [address] 52316JT lumbar spine wo [facility] [id number] lumbar spine wo [facility] Main [address] [address] MRI Report Signed Patient: Melvin Baer MR#: [id number] : 1960 Acct:[id number] Age/Sex: 62 / M ADM Date: 12/15/22 Loc: [facility] Room: Type: [facility] Attending Dr: Sully Barney NP Copies [...] Prakash Zavala M.D.12/15/2022 3:12 PM Dictation Location: [place] [address] Transcribed By: [facility] 12/15/22 1512 Dictated By: Prakash Zavala II, MD 12/15/22 1500 Signed By: 12/15/22 1512[facility] 2V(w/wo pelvis)*on [id number] hip RT min 2V(w/wo pelvis)*[facility] Main [place] [address] [place] [address] XRay Report Signed Patient: Melvin Baer MR#: [id number] : 1960 Acct:[id number] Age/Sex: 62 / M ADM Date: 10/16/22 Loc: XD Room: Type: [facility] Attending Dr: Abel Sandoval MD Copies [...] Raulito Abbasi M.D.10/16/2022 2:39 PM Dictation Location: [facility] Transcribed By: [facility] 10/16/22 143 Dictated By: Raulito Abbasi DO 10/16/22 1437 Signed By: 10/16/22 1439[facility] AP/LAT/FLX/EXTon [id number] lumbar spine AP/LAT/FLX/[facility] [place] [address] [place] [address] XRay Report Signed Patient: Melvin Baer MR#: [id number] : 1960 Acct:[id number] Age/Sex: 62 / M ADM Date: 10/16/22 Loc: XD Room: Type: [facility] Attending Dr: Abel Sandoval MD Copies [...] [place] Jr., D.OAmy10/16/2022 2:44 PM Dictation Location: [facility]12 Transcribed By: [facility] 10/16/22 1444 Dictated By: Roberto West Jr, DO 10/16/22 1440 Signed By: 10/16/22 1444[facility] - WestCBC AUTO DIFFon 07-19-2022 BASO #0.1 103/ulNormal0.0-0.1[facility] SystemComment on above:Performed By: #### CBC #### [facility] [address] [place] [address] Dr. Mariann OdomBasophils/100 WBC (Bld)0.9 %Normal0.2-2.0The [facility] Comment on above:Performed By: #### CBC #### [facility] [address] [place] [address] Dr. Mariann Tolbert #0.3 103/ulNormal0.0-0.7The [facility] HospitalComment on above: Performed By: #### CBC #### [facility] [address] [place] [address] Dr. Mariann Wyattosinophils/100 WBC (Bld)4.9 %Normal0.9-7.0The [facility] Comment on above:Performed By: #### CBC #### [facility] [address] [place] [address] Dr. Mariann Wyattrythrocyte distribution width (RBC) [Ratio]14.8 %Gmmsvi74.0-15.0 [facility] SystemComment on above:Performed By: #### CBC #### [facility] [address] [place] [address] Dr. Mariann OdomHematocrit (Bld) [Volume fraction]41.5 %Critically low42.0-54.0 [facility] SystemComment on above:Performed By: #### CBC #### [facility] [address] [place] [address] Dr. Mariann OdomHemoglobin (Bld) [Mass/Vol]13.3 g/dLCritically low14.0-18.0[facility] SystemComment on above:Performed By: #### CBC #### [facility] [address] [place] [address] Dr. Mariann Guy #0.02 10e3/ulNormal0.00-0.03The [facility] HospitalComment on above:Performed By: #### CBC #### [facility] [address] [place] [address] Dr. Mariann Guy %0.4 %Normal0.0-0.5The [facility] HospitalComment on above: Performed By: #### CBC #### [facility] [address] [place] [address] Dr. Mariann Hernandez #1.8 103/ulNormal1.2-3.8The [facility] HospitalComment on above:Performed By: #### CBC #### [facility] [address] [place] [address] Dr. Mariann Younghocytes/100 WBC (Bld)33.1 %Ubfbnk89.5-60.0The [facility] HospitalComment on above:Performed By: #### CBC #### [facility] [address] [place] [address] Dr. Mariann Shin DIFF REQNONormalThe [facility] HospitalComment on above: Performed By: #### CBC #### [facility] [address] [place] [address] Dr. Mariann Dahl (RBC) [Entitic mass]28.1 qzMakohl44.9-34.0The [facility] HospitalComment on above:Performed By: #### CBC #### [facility] [address] [place] [address] Dr. Mariann Navarro (RBC) [Mass/Vol]32.0 g/iKJuprez99.9-35.2The [facility] HospitalComment on above:Performed By: #### CBC #### [facility] [address] [place] [address] Dr. Mariann Chacon (RBC) [Entitic vol]87.7 bDWnjwiw20.0-94.0The [facility] HospitalComment on above:Performed By: #### CBC #### [facility] [address] [place] [address] Dr. Mariann Zabala #0.6 103/ulNormal0.3-0.8The [facility] HospitalComment on above:Performed By: #### CBC #### [facility] [address] [place] [address] Dr. Mariann Scruggsocytes/100 WBC (Bld)11.7 %Normal1.7-12.0The [facility] Comment on above:Performed By: #### CBC #### [facility] [address] [place] [address] Dr. Mariann Faria #2.6 103/ulNormal1.4-6.5The [facility] HospitalComment on above:Performed By: #### CBC #### [facility] [address] [place] [address] Dr. Mariann Orrutrophils/100 WBC (Bld)49.0 %Gmzgku72.0-75.0The [facility] HospitalComment on above:Performed By: #### CBC #### [facility] [address] [place] [address] Dr. Mariann Schraderlet mean volume (Bld) [Entitic vol]11.2 fLNormal9.5-13.5The [facility] HospitalComment on above:Performed By: #### CBC #### [facility] [address] [place] [address] Dr. Mariann HardwickT301 103/gzQsothv430-581Sxt [facility] HospitalComment on above: Performed By: #### CBC #### [facility] [address] [place] [address] Dr. Mariann OdomRBC4.73 106/ulNormal4.70-6.10The [facility] HospitalComment on above:Performed By: #### CBC #### [facility] [address] [place] [address] Dr. Mariann OdomWBC5.3 103/ulNormal4.0-11.0The [facility] HospitalComment on above: Performed By: #### CBC #### [facility] [address] [place] [address] Dr. Mariann Salazar 14(COMP METB)on [id number] [Mass/Vol]4.0 g/dLNormal 3.4-5.0The [facility] HospitalComment on above:Performed By: #### CMP #### [facility] [address] [place] [address] Dr. Mariann OdomAlbumin/Globulin [Mass ratio]1.0 {ratio}NormalThe [facility] HospitalComment on above:Performed By: #### CMP #### [facility] [address] [place] [address] Dr. Mariann BirdP [Catalytic activity/Vol]99 U/PJvfcwf00-683Qri [facility] HospitalComment on above:Performed By: #### CMP #### [facility] [address] [place] [address] Dr. Mariann BirdT [Catalytic activity/Vol]36 U/UXbhjye70-95Bta [facility] HospitalComment on above:Performed By: #### CMP #### [facility] [address] [place] [address] Dr. Mariann Valentineon gap [Moles/Vol]10.6 mmol/LNormalThe [facility] Comment on above:Performed By: #### CMP #### [facility] [address] [place] [address] Dr. Mariann OdomAST [Catalytic activity/Vol]21 U/EMtxzzp51-32Etb [facility] HospitalComment on above:Performed By: #### CMP #### [facility] [address] [place] [address] Dr. Mariann OdomBilirubin [Mass/Vol]0.2 mg/dLNormal0.2-1.0The [facility] Comment on above:Performed By: #### CMP #### [facility] [address] [place] [address] Dr. Mariann OdomCalcium [Mass/Vol]9.6 mg/dLNormal8.5-10.1The [facility] Comment on above:Performed By: #### CMP #### [facility] [address] [place] [address] Dr. Mariann OdomChloride [Moles/Vol]102 mmol/VQlcujo09-554Jhp [facility] Comment on above:Performed By: #### CMP #### [facility] [address] [place] [address] Dr. Yilan ChangCO2 [Moles/Vol]30.5 mmol/XAtncbr14.0-32.0The [facility] Comment on above:Performed By: #### CMP #### [facility] [address] [place] [address] Dr. Mariann OdomCreatinine [Mass/Vol]0.93 mg/dLNormal0.70-1.30The [facility] HospitalComment on above:Performed By: #### CMP #### [facility] [address] [place] [address] Dr. Mariann WyattGFR-AF NIUEAN>60Normal>=60The [facility] HospitalComment on above:Performed By: #### CMP #### [facility] [address] [place] [address] Dr. Mariann WyattGFR-NON AF NIUEAN>60Normal>=60The [facility] HospitalComment on above:Performed By: #### CMP #### [facility] [address] [place] [address] Dr. Mariann OdomGlobulin (S) [Mass/Vol]3.9 g/dLNormalThe [facility] HospitalComment on above:Performed By: #### CMP #### [facility] [address] [place] [address] Dr. Mariann OdomGlucose [Mass/Vol]126 mg/dLCritically zyxj37-300YgcBlanchard Valley Health SystemComment on above:Performed By: #### CMP #### [facility] [address] [place] [address] Dr. Mariann OdomPotassium [Moles/Vol]4.1 mmol/LNormal3.5-5.1The [facility] Comment on above:Performed By: #### CMP #### [facility] [address] [place] [address] Dr. Mariann OdomProtein [Mass/Vol]7.9 g/dLNormal6.4-8.2The [facility] Comment on above:Performed By: #### CMP #### [facility] [address] [place] [address] Dr. Mariann OdomSodium [Moles/Vol]139 mmol/QIemmvu958-140Fpq [facility] Comment on above:Performed By: #### CMP #### [facility] [address] [place] [address] Dr. Mariann Garibay nitrogen [Mass/Vol]16.0 mg/dLNormal7.0-18.0The [facility] HospitalComment on above:Performed By: #### CMP #### [facility] [address] [place] [address] Dr. Mariann Garibay nitrogen/Creatinine [Mass ratio]17.2 mg/mgNormalThe [facility] HospitalComment on above:Performed By: #### CMP #### [facility] [address] [place] [address] Dr. Mariann Douglas RATE WESTERGRENon 25-27-4536XCX RATE13 mm/hrNormal<=20The [facility] HospitalComment on above:Performed By: #### SEDR #### [facility] [address] [place] [address] Dr. Mariann Alaniz AUTO DIFFon [id number] #0.1 103/ulNormal0.0-0.1The [facility] HospitalComment on above:Performed By: #### CBC #### [facility] [address] [place] [address] Dr. Mariann OdomBasophils/100 WBC (Bld)0.9 %Normal0.2-2.0[facility] Comment on above:Performed By: #### CBC #### [facility] [address] [place] [address] Dr. Mariann Tolbert #0.2 103/ulNormal0.0-0.7The [facility] HospitalComment on above: Performed By: #### CBC #### [facility] [address] [place] [address] Dr. Mariann Wyattosinophils/100 WBC (Bld)4.2 %Normal0.9-7.0[facility] Comment on above:Performed By: #### CBC #### [facility] [address] [place] [address] Dr. Yilan ChangErythrocyte distribution width (RBC) [Ratio]14.3 %Vycmag08.0-15.0 The [facility] HospitalComment on above:Performed By: #### CBC #### [facility] [address] [place] [address] Dr. Mariann OdomHematocrit (Bld) [Volume fraction]41.7 %Critically low42.0-54.0 The [facility] HospitalComment on above:Performed By: #### CBC #### [facility] [address] [place] [address] Dr. Mariann OdomHemoglobin (Bld) [Mass/Vol]13.6 g/dLCritically low14.0-18.0The [facility] on above:Performed By: #### CBC #### [facility] [address] [place] [address] Dr. Mariann Guy #0.01 10e3/ulNormal0.00-0.03The [facility] HospitalComascension [facility]org[facility] on above:Performed By: #### CBC #### [facility] [address] [place] [address] Dr. Mariann Guy %0.2 %Normal0.0-0.5The [facility] HospitalComasc[facility] on above: Performed By: #### CBC #### [facility] [address] [place] [address] Dr. Mariann YoungH #1.6 103/ulNormal1.2-3.8The [facility] HospitalComascension [facility] on above:Performed By: #### CBC #### [facility] [address] [place] [address] Dr. Mariann Peñalozamphocytes/100 WBC (Bld)28.8 %Fdqrvn99.5-60.0The [facility] on above:Performed By: #### CBC #### [facility] [address] [place] [address] Dr. Mariann DiazUAL DIFF REQNONormalThe [facility] HospitalComment on above: Performed By: #### CBC #### [facility] [address] [place] [address] Dr. Mariann Navarro (RBC) [Entitic mass]27.7 qwPcchif37.9-34.0The [facility] HospitalComment on above:Performed By: #### CBC #### [facility] [address] [place] [address] Dr. Mariann Navarro (RBC) [Mass/Vol]32.6 g/eRDwutji87.9-35.2The [facility] HospitalComment on above:Performed By: #### CBC #### [facility] [address] [place] [address] Dr. Mariann Navarro (RBC) [Entitic vol]84.9 eHTquoeb91.0-94.0The [facility] HospitalComment on above:Performed By: #### CBC #### [facility] [address] [place] [address] Dr. Mariann Zabala #0.6 103/ulNormal0.3-0.8The [facility] HospitalComment on above:Performed By: #### CBC #### [facility] [address] [place] [address] Dr. Mariann Scruggsocytes/100 WBC (Bld)10.4 %Normal1.7-12.0The [facility] Comment on above:Performed By: #### CBC #### [facility] [address] [place] [address] Dr. Mariann Faria #3.2 103/ulNormal1.4-6.5The [facility] HospitalComment on above:Performed By: #### CBC #### [facility] [address] [place] [address] Dr. Mariann Orrutrophils/100 WBC (Bld)55.5 %Xjwmul01.0-75.0The [facility] HospitalComment on above:Performed By: #### CBC #### [facility] [address] [place] [address] Dr. Mariann Schraderlet mean volume (Bld) [Entitic vol]10.8 fLNormal9.5-13.5The [facility] HospitalComment on above:Performed By: #### CBC #### [facility] [address] [address] [address] Mariann OdomPLT269 103/ikWontww629-533Rns [facility] HospitalComment on above: Performed By: #### CBC #### [facility] [address] [place] [address] Dr. Mariann OdomRBC4.91 106/ulNormal4.70-6.10The [facility] HospitalComment on above:Performed By: #### CBC #### [facility] [address] [place] [address] Dr. Mariann OdomWBC5.7 103/ulNormal4.0-11.0The [facility] Hospitalment on above: Performed By: #### CBC #### [facility] [address] [place] [address] Dr. Mariann ThapaF 14(COMP METB)on [id number] [Mass/Vol]3.6 g/dLNormal 3.4-5.0The [facility] HospitalComment on above:Performed By: #### CMP #### [facility] [address] [place] [address] Dr. Mariann OdomAlbumin/Globulin [Mass ratio]1.1 {ratio}NormalThe [facility] on above:Performed By: #### CMP #### [facility] [address] [place] [address] Dr. Mariann Gomez [Catalytic activity/Vol]95 U/BKnmwda00-101Vnz [facility] on above:Performed By: #### CMP #### [facility] [address] [place] [address] Dr. Mariann Vela [Catalytic activity/Vol]39 U/KAkzjfv59-45Bgm [facility] Hospitalment on above:Performed By: #### CMP #### [facility] [address] [place] [address] Dr. Mariann Kasper gap [Moles/Vol]11.1 mmol/LNormalThe [facility] on above:Performed By: #### CMP #### [facility] [address] [address] [address] Mariann OdomAST [Catalytic activity/Vol]25 U/FFckpmn55-46Jty [facility] HospitalComment on above:Performed By: #### CMP #### [facility] [address] [address] [address] Mariann OdomBilirubin [Mass/Vol]0.3 mg/dLNormal0.2-1.0The [facility] Comment on above:Performed By: #### CMP #### [facility] [address] [address] [address] Mariann OdomCalcium [Mass/Vol]9.0 mg/dLNormal8.5-10.1The [facility] Comment on above:Performed By: #### CMP #### [facility] [address] [address] [address] Mariann OdomChloride [Moles/Vol]104 mmol/DUumgoi92-432Gfo [facility] Comment on above:Performed By: #### CMP #### [facility] [address] [address] [address] Mariann OdomCO2 [Moles/Vol]27.8 mmol/OSmemde94.0-32.0The [facility] Comment on above:Performed By: #### CMP #### [facility] [address] [address] [address] Mariann OdomCreatinine [Mass/Vol]0.81 mg/dLNormal0.70-1.30The [facility] HospitalComment on above:Performed By: #### CMP #### [facility] [address] [place] [address] Dr. Mariann WyattGFR-AF NIUEAN>60Normal>=60The [facility] HospitalComment on above:Performed By: #### CMP #### [facility] [address] [address] [address] Mariann WyattGFR-NON AF NIUEAN>60Normal>=60The [facility] HospitalComment on above:Performed By: #### CMP #### [facility] [address] [address] [address] Mariann OdomGlobulin (S) [Mass/Vol]3.4 g/dLNormPremier Health Upper Valley Medical CenterComment on above:Performed By: #### CMP #### [facility] [address] [address] [address] Mariann OdomGlucose [Mass/Vol]189 mg/dLCritically ecra33-377Dnc [facility] HospitalComment on above:Performed By: #### CMP #### [facility] [address] [address] [address] Mariann OdomPotassium [Moles/Vol]3.9 mmol/LNormal3.5-5.1The [facility] Comment on above:Performed By: #### CMP #### [facility] [address] [address] [address] Mariann OdomProtein [Mass/Vol]7.0 g/dLNormal6.4-8.2The [facility] Comment on above:Performed By: #### CMP #### [facility] [address] [place] [address] Dr. Mariann OdomSodium [Moles/Vol]139 mmol/VEnsxvr482-221Qlp [facility] Comment on above:Performed By: #### CMP #### [facility] [address] [place] [address] Dr. Mariann OdomUrea nitrogen [Mass/Vol]14.0 mg/dLNormal7.0-18.0The [facility] HospitalComment on above:Performed By: #### CMP #### [facility] [address] [place] [address] Dr. Mariann Garibay nitrogen/Creatinine [Mass ratio]17.3 mg/mgNormalThKettering Health DaytonComment on above:Performed By: #### CMP #### [facility] [address] [address] [address] Mariann OdomSED RATE WESTERGRENon 21-26-2954PRL RATE24 mm/hrCritically high <=20The [facility] HospitalComment on above:Performed By: #### CMP #### [facility] [address] [place] [address] Dr. Mariann OdomGLYCOHEMOGLOBIN A1Con [id number] RECOMMENDATIONSEE BELOWNormal The [facility] HospitalComment on above:Result Comment: ADA RECOMMENDED LIMIT 4.0 - 6.0 ADA THERAPEUTIC TARGET < 7.0 ACTION SUGGESTED > 7.0Performed By: #### A1C #### [facility] [address] [place] [address] Dr. Mariann OdomGlucose [Mass/Vol]263 mg/dLNormalThe [facility] HospitalComment on above:Performed By: #### A1C #### [facility] [address] [place] [address] Dr. Mariann OdomHbA1c (Bld) [Mass fraction]10.8 %Critically high4.5-6.2The [facility] HospitalComment on above:Performed By: #### A1C #### [facility] [address] [place] [address] Dr. Mariann OdomCBC AUTO DIFFon [id number] #0.0 103/ulNormal0.0-0.1The [facility] HospitalComment on above:Performed By: #### CMP #### [facility] [address] [place] [address] Dr. Mariann OdomBasophils/100 WBC (Bld)0.6 %Normal0.2-2.0The [facility] Comment on above:Performed By: #### CMP #### [facility] [address] [place] [address] Dr. Mariann Tolbert #0.4 103/ulNormal0.0-0.7The [facility] HospitalComment on above: Performed By: #### CMP #### [facility] [address] [place] [address] Dr. Mariann Wyattosinophils/100 WBC (Bld)5.0 %Normal0.9-7.0The [facility] Comment on above:Performed By: #### CMP #### [facility] [address] [place] [address] Dr. Mariann Wyattrythrocyte distribution width (RBC) [Ratio]13.5 %Wfxwkk02.0-15.0 The [facility] HospitalComment on above:Performed By: #### CMP #### [facility] [address] [place] [address] Dr. Mariann OdomHematocrit (Bld) [Volume fraction]42.2 %Yjdtmj42.0-54.0The [facility] HospitalComment on above:Performed By: #### CMP #### [facility] [address] [place] [address] Dr. Mariann OdomHemoglobin (Bld) [Mass/Vol]13.9 g/dLCritically low14.0-18.0The [facility] HospitalComment on above:Performed By: #### CMP #### [facility] [address] [place] [address] Dr. Mariann OdomIG #0.02 10e3/ulNormal0.00-0.03The [facility] HospitalComment on above:Performed By: #### CMP #### [facility] [address] [place] [address] Dr. Mariann OdomIG %0.3 %Normal0.0-0.5The [facility] HospitalComment on above: Performed By: #### CMP #### [facility] [address] [place] [address] Dr. Mariann Hernandez #1.8 103/ulNormal1.2-3.8The [facility] HospitalComment on above:Performed By: #### CMP #### [facility] [address] [place] [address] Dr. Mariann Peñalozamphocytes/100 WBC (Bld)24.7 %Doclpq51.5-60.0The [facility] HospitalComment on above:Performed By: #### CMP #### [facility] [address] [place] [address] Dr. Mariann DiazUAL DIFF REQNONormalThe [facility] HospitalComment on above: Performed By: #### CMP #### [facility] [address] [place] [address] Dr. Mariann Dahl (RBC) [Entitic mass]28.3 urBktuwb40.9-34.0The [facility] HospitalComment on above:Performed By: #### CMP #### [facility] [address] [place] [address] Dr. Mariann Navarro (RBC) [Mass/Vol]32.9 g/eYAabdfp89.9-35.2The [facility] HospitalComment on above:Performed By: #### CMP #### [facility] [address] [place] [address] Dr. Mariann Navarro (RBC) [Entitic vol]85.9 aBKrdihp34.0-94.0The [facility] HospitalComment on above:Performed By: #### CMP #### [facility] [address] [place] [address] Dr. Mariann Zabala #0.6 103/ulNormal0.3-0.8The [facility] HospitalComment on above:Performed By: #### CMP #### [facility] [address] [place] [address] Dr. Mariann Scruggsocytes/100 WBC (Bld)8.8 %Normal1.7-12.0The [facility] Comment on above:Performed By: #### CMP #### [facility] [address] [place] [address] Dr. Mariann Faria #4.4 103/ulNormal1.4-6.5The [facility] HospitalComment on above:Performed By: #### CMP #### [facility] [address] [place] [address] Dr. Mariann Orrutrophils/100 WBC (Bld)60.6 %Pmdowu01.0-75.0The [facility] HospitalComment on above:Performed By: #### CMP #### [facility] [address] [place] [address] Dr. Mariann Schraderlet mean volume (Bld) [Entitic vol]11.2 fLNormal9.5-13.5The [facility] HospitalComment on above:Performed By: #### CMP #### [facility] [address] [place] [address] Dr. Mariann OdomPLT268 103/mnEjxwgw947-503Zpa [facility] HospitalComment on above: Performed By: #### CMP #### [facility] [address] [place] [address] Dr. Mariann OdomRBC4.91 106/ulNormal4.70-6.10The [facility] HospitalComment on above:Performed By: #### CMP #### [facility] [address] [place] [address] Dr. Mariann OdomWBC7.2 103/ulNormal4.0-11.0The [facility] HospitalComment on above: Performed By: #### CMP #### [facility] [address] [place] [address] Dr. Mariann Salazar 14(COMP METB)on [id number] [Mass/Vol]3.8 g/dLNormal 3.4-5.0The [facility] HospitalComment on above:Performed By: #### CMP #### [facility] [address] [place] [address] Dr. Mariann OdomAlbumin/Globulin [Mass ratio]1.0 {ratio}NormalThe [facility] HospitalComment on above:Performed By: #### CMP #### [facility] [address] [place] [address] Dr. Mariann Gomez [Catalytic activity/Vol]95 U/ZKzcuiw92-964Uoi [facility] HospitalComment on above:Performed By: #### CMP #### [facility] [address] [place] [address] Dr. Mariann Vela [Catalytic activity/Vol]66 U/LCritically vahg06-48Tbv [facility] HospitalComment on above:Performed By: #### CMP #### [facility] [address] [place] [address] Dr. Mariann Kasper gap [Moles/Vol]12.7 mmol/LNormalThe [facility] on above:Performed By: #### CMP #### [facility] [address] [place] [address] Dr. Mariann OdomAST [Catalytic activity/Vol]42 U/LCritically wuca92-16Wcc [facility] HospitalComment on above:Performed By: #### CMP #### [facility] [address] [address] [address] Mariann OdomBilirubin [Mass/Vol]0.4 mg/dLNormal0.2-1.0The [facility] Comment on above:Performed By: #### CMP #### [facility] [address] [address] [address] Mariann OdomCalcium [Mass/Vol]9.0 mg/dLNormal8.5-10.1The [facility] Comment on above:Performed By: #### CMP #### [facility] [address] [place] [address] Dr. Mariann OdomChloride [Moles/Vol]101 mmol/NMxycdv17-499Wqo [facility] Comment on above:Performed By: #### CMP #### [facility] [address] [place] [address] Dr. Mariann OdomCO2 [Moles/Vol]27.0 mmol/JHxrahn84.0-32.0The [facility] Comment on above:Performed By: #### CMP #### [facility] [address] [place] [address] Dr. Mariann OdomCreatinine [Mass/Vol]1.22 mg/dLNormal0.70-1.30The [facility] HospitalComment on above:Performed By: #### CMP #### [facility] [address] [place] [address] Dr. Mariann WyattGFR-AF NIUEAN>60Normal>=60The [facility] HospitalComment on above:Performed By: #### CMP #### [facility] [address] [place] [address] Dr. Mariann WyattGFR-NON AF NIUEAN>60Normal>=60The [facility] HospitalComment on above:Performed By: #### CMP #### [facility] [address] [place] [address] Dr. Mariann OdomGlobulin (S) [Mass/Vol]3.7 g/dLNormalThe [facility] HospitalComment on above:Performed By: #### CMP #### [facility] [address] [place] [address] Dr. Mariann OdomGlucose [Mass/Vol]288 mg/dLCritically rchs70-477Bul [facility] HospitalComment on above:Performed By: #### CMP #### [facility] [address] [place] [address] Dr. Mariann OdomPotassium [Moles/Vol]3.7 mmol/LNormal3.5-5.1The [facility] Comment on above:Performed By: #### CMP #### [facility] [address] [place] [address] Dr. Mariann OdomProtein [Mass/Vol]7.5 g/dLNormal6.4-8.2The [facility] Comment on above:Performed By: #### CMP #### [facility] [address] [place] [address] Dr. Mariann OdomSodium [Moles/Vol]137 mmol/YFcwcew422-013Wbc [facility] Comment on above:Performed By: #### CMP #### [facility] [address] [place] [address] Dr. Mariann OdomUrea nitrogen [Mass/Vol]13.0 mg/dLNormal7.0-18.0The [facility] HospitalComment on above:Performed By: #### CMP #### [facility] [address] [place] [address] Dr. Mariann OdomUrea nitrogen/Creatinine [Mass ratio]10.7 mg/mgNoalThe [facility] HospitalComment on above:Performed By: #### CMP #### [facility] [address] [place] [address] Dr. Mariann Douglas RATE WESTERGRENon [id number] RATE26 mm/hrCritically high <=20The [facility] HospitalComment on above:Performed By: #### CMP #### [facility] [address] [place] [address] Dr. Mariann OdomCBC AUTO DIFFon [id number] #0.0 103/ulNormal0.0-0.1The [facility] HospitalComment on above:Performed By: #### CMP #### [facility] [address] [address] [address] Mariann OdomBasophils/100 WBC (Bld)0.8 %Normal0.2-2.0The [facility] Comment on above:Performed By: #### CMP #### [facility] [address] [address] [address] Mariann Tolbert #0.2 103/ulNormal0.0-0.7The [facility] HospitalComment on above: Performed By: #### CMP #### [facility] [address] [place] [address] Dr. Mariann Wyattosinophils/100 WBC (Bld)4.5 %Normal0.9-7.0The [facility] Comment on above:Performed By: #### CMP #### [facility] [address] [place] [address] Dr. Mariann Wyattrythrocyte distribution width (RBC) [Ratio]15.0 %Phoiyh09.0-15.0 The [facility] HospitalComment on above:Performed By: #### CMP #### [facility] [address] [place] [address] Dr. Mariann OdomHematocrit (Bld) [Volume fraction]40.6 %Critically low42.0-54.0 The [facility] HospitalComment on above:Performed By: #### CMP #### [facility] [address] [place] [address] Dr. Mariann OdomHemoglobin (Bld) [Mass/Vol]12.8 g/dLCritically low14.0-18.0The [facility] HospitalComment on above:Performed By: #### CMP #### [facility] [address] [place] [address] Dr. Mariann Guy #0.01 10e3/ulNormal0.00-0.03The [facility] HospitalComment on above:Performed By: #### CMP #### [facility] [address] [address] [address] Mariann Guy %0.2 %Normal0.0-0.5The [facility] HospitalComascension [facility] on above: Performed By: #### CMP #### [facility] [address] [address] [address] Mariann PeñalozaMelissa #1.5 103/ulNormal1.2-3.8The [facility] HospitalComment on above:Performed By: #### CMP #### [facility] [address] [place] [address] Dr. Mariann Peñalozahocytes/100 WBC (Bld)31.0 %Iwpzmd62.5-60.0The [facility] HospitalComascension [facility] on above:Performed By: #### CMP #### [facility] [address] [place] [address] Dr. Mariann DiazUAL DIFF REQNONormalThe [facility] HospitalComment on above: Performed By: #### CMP #### [facility] [address] [place] [address] Dr. Mariann Navarro (RBC) [Entitic mass]28.3 fsDajfsw74.9-34.0The [facility] on above:Performed By: #### CMP #### [facility] [address] [place] [address] Dr. Mariann Navarro (RBC) [Mass/Vol]31.5 g/tUZiobvz05.9-35.2The [facility] on above:Performed By: #### CMP #### [facility] [address] [place] [address] Dr. Mariann Navarro (RBC) [Entitic vol]89.6 wBUizkfw88.0-94.0The [facility] on above:Performed By: #### CMP #### [facility] [address] [place] [address] Dr. Mariann Zabala #0.6 103/ulNormal0.3-0.8The [facility] HospitalComment on above:Performed By: #### CMP #### [facility] [address] [place] [address] Dr. Mariann Scruggsocytes/100 WBC (Bld)11.4 %Normal1.7-12.0The [facility] Comment on above:Performed By: #### CMP #### [facility] [address] [place] [address] Dr. Mariann OrrUT #2.6 103/ulNormal1.4-6.5The [facility] HospitalComment on above:Performed By: #### CMP #### [facility] [address] [place] [address] Dr. Mariann Orrutrophils/100 WBC (Bld)52.1 %Kxzfng62.0-75.0The [facility] HospitalComment on above:Performed By: #### CMP #### [facility] [address] [place] [address] Dr. Mariann OdomPlatelet mean volume (Bld) [Entitic vol]11.9 fLNormal9.5-13.5The [facility] HospitalComment on above:Performed By: #### CMP #### [facility] [address] [place] [address] Dr. Mariann OdomPLT288 103/dqCyamvd935-296Zep [facility] HospitalComment on above: Performed By: #### CMP #### [facility] [address] [place] [address] Dr. Mariann OdomRBC4.53 106/ulCritically low4.70-6.10The [facility] HospitalComment on above:Performed By: #### CMP #### [facility] [address] [place] [address] Dr. Mariann OdomWBC4.9 103/ulNormal4.0-11.0The [facility] HospitalComment on above: Performed By: #### CMP #### [facility] [address] [place] [address] Dr. Mariann OdomGLYCOHEMOGLOBIN A1Con [id number] RECOMMENDATIONSEE BELOWNormal The [facility] HospitalComment on above:Result Comment: ADA RECOMMENDED LIMIT 4.0 - 6.0 ADA THERAPEUTIC TARGET < 7.0 ACTION SUGGESTED > 7.0Performed By: #### A1C #### [facility] [address] [place] [address] Dr. Mariann OdomGlucose [Mass/Vol]154 mg/dLNoMercy Health West HospitalComment on above:Performed By: #### A1C #### [facility] [address] [place] [address] Dr. Mariann OdomHbA1c (Bld) [Mass fraction]7.0 %Critically high4.5-6.2The [facility] HospitalComment on above:Performed By: #### A1C #### [facility] [address] [place] [address] Dr. Mariann OdomLIPID PROFILEon [id number]-HDL RATIO NORMSEE [facility] CenterComment on above:Result Comment: 3.3 - 4.4 LOW RISK 4.4 - 7.1 AVERAGE RISK 7.1 - 11.0 MODERATE RISK >11.0 HIGH RISKPerformed By: #### CMP #### [facility] [address] [place] [address] Dr. Mariann Fongesterol [Mass/Vol]114 mg/dLNormal<=200The [facility] Comment on above:Performed By: #### CMP #### [facility] [address] [place] [address] Dr. Mariann OdomCholesterol in HDL [Mass/Vol]50 mg/sIDofrmw78-42Wua [facility] HospitalComment on above:Performed By: #### CMP #### [facility] [address] [place] [address] Dr. Mariann OdomCholesterol in LDL [Mass/Vol]52.4 mg/dLMount Carmel Health SystemComment on above:Performed By: #### CMP #### [facility] [address] [place] [address] Dr. Mariann Fongesterdoug.total/Cholesterol in HDL [Mass ratio]2.3 {ratio} NormalThe [facility] HospitalComment on above:Performed By: #### CMP #### [facility] [address] [place] [address] Dr. Mariann Yanes NORMAL> or = 60 mg/dl - LOW CARDIOVASCULAR RISK <40 mg/dl - HIGH CARDIOVASCULAR RISKMount Carmel Health SystemComment on above:Performed By: #### CMP #### [facility] [address] [place] [address] Dr. Mariann Baer CALC NORMALSEE BELOWNoMercy Health West HospitalComment on above:Result Comment: <100 mg/dl OPTIMAL 100 - 129 mg/dl NEAR OR ABOVE OPTIMAL 130 - 159 mg/dl BORDERLINE HIGH 160 - 189 mg/dl HIGH >190 mg/dl VERY HIGH Performed By: #### CMP #### [facility] [address] [place] [address] Dr. Mariann OdomTriglyceride [Mass/Vol]58 mg/dLNormal<=150The [facility] Comment on above:Performed By: #### CMP #### [facility] [address] [place] [address] Dr. Mariann Craig CALC11.6 mg/dLNoMercy Health West HospitalComment on above: Performed By: #### CMP #### [facility] [address] [place] [address] Dr. Mariann Carrington PROFILEon [id number] [Mass/Vol]4.0 g/dLNormal3.4-5.0 The [facility] HospitalComment on above:Performed By: #### CMP #### [facility] [address] [place] [address] Dr. Mariann OdomAlbumin/Globulin [Mass ratio]1.1 {ratio}NormalThe [facility] HospitalComment on above:Performed By: #### CMP #### [facility] [address] [place] [address] Dr. Mariann Gomez [Catalytic activity/Vol]72 U/CGptakm52-874Cps [facility] HospitalComment on above:Performed By: #### CMP #### [facility] [address] [place] [address] Dr. Yilan ChangALT [Catalytic activity/Vol]43 U/USfwkpi23-35Gin [facility] HospitalComment on above:Performed By: #### CMP #### [facility] [address] [place] [address] Dr. Mariann OdmoAST [Catalytic activity/Vol]28 U/EKzppti96-52Tdz [facility] HospitalComment on above:Performed By: #### CMP #### [facility] [address] [place] [address] Dr. Mariann RubinI, CONJUGATED0.1 mg/dLNormal0.0-0.2[facility] Comment on above:Performed By: #### CMP #### [facility] [address] [place] [address] Dr. Mariann Rubinirubin [Mass/Vol]0.4 mg/dLNormal0.2-1.0The [facility] Comment on above:Performed By: #### CMP #### [facility] [address] [place] [address] Dr. Mariann OdomGlobulin (S) [Mass/Vol]3.5 g/dLNormalThe [facility] HospitalComment on above:Performed By: #### CMP #### [facility] [address] [place] [address] Dr. Mariann OdomProtein [Mass/Vol]7.5 g/dLNormal6.4-8.2[facility] Comment on above:Performed By: #### CMP #### [facility] [address] [place] [address] Dr. Mariann OdomMICROALBUMIN, RAND URon [id number] mg/LNormal<=30.0The [facility] HospitalComment on above:Performed By: #### MALBR #### [facility] [address] [place] [address] Dr. Mariann OdomPROF CHEM 8 (BAS METB)on [id number] gap [Moles/Vol]11.3 mmol/LNormalThe [facility] HospitalComment on above:Performed By: #### CMP #### [facility] [address] [place] [address] Dr. Mariann OdomCalcium [Mass/Vol]9.1 mg/dLNormal8.5-10.1The [facility] Comment on above:Performed By: #### CMP #### [facility] [address] [address] [address] Mariann OdomChloride [Moles/Vol]106 mmol/DNxxdts55-422CrxBlanchard Valley Health System Comment on above:Performed By: #### CMP #### [facility] [address] [address] [address] Mariann OdomCO2 [Moles/Vol]29.0 mmol/GJceoxu68.0-32.0The [facility] Comment on above:Performed By: #### CMP #### [facility] [address] [place] [address] Dr. Mariann OdomCreatinine [Mass/Vol]0.93 mg/dLNormal0.70-1.30The [facility] HospitalComment on above:Performed By: #### CMP #### [facility] [address] [place] [address] Dr. Waite ChangEGFR-AF NIUEAN>60Normal>=60The [facility] HospitalComment on above:Performed By: #### CMP #### [facility] [address] [place] [address] Dr. Mariann WyattGFR-NON AF NIUEAN>60Normal>=60The [facility] HospitalComment on above:Performed By: #### CMP #### [facility] [address] [place] [address] Dr. Mariann OdomGlucose [Mass/Vol]99 mg/vJWxoybw79-388Yne [facility] Comment on above:Performed By: #### CMP #### [facility] [address] [place] [address] Dr. Mariann OdomPotassium [Moles/Vol]4.3 mmol/LNormal3.5-5.1The [facility] Comment on above:Performed By: #### CMP #### [facility] [address] [place] [address] Dr. Mariann OdomSodium [Moles/Vol]142 mmol/VLzfybw084-441Xzj [facility] Comment on above:Performed By: #### CMP #### [facility] [address] [place] [address] Dr. Mariann Garibay nitrogen [Mass/Vol]11.0 mg/dLNormal7.0-18.0The [facility] HospitalComment on above:Performed By: #### CMP #### [facility] [address] [place] [address] Dr. Mariann Garibay nitrogen/Creatinine [Mass ratio]11.8 mg/mgNormalThe [facility] HospitalComment on above:Performed By: #### CMP #### [facility] [address] [place] [address] Dr. Mariann Salomon 06-50-0812ZLT2.183 uIU/mLNormal0.358-3.740[facility] SystemComment on above:Performed By: #### CMP #### [facility] [address] [place] [address] Dr. Mariann Alaniz AUTO DIFFon [id number] #0.1 103/ulNormal0.0-0.1The [facility] HospitalComment on above:Performed By: #### CBC #### [facility] [address] [place] [address] Dr. Mariann OdomBasophils/100 WBC (Bld)1.0 %Normal0.2-2.0[facility] Comment on above:Performed By: #### CBC #### [facility] [address] [place] [address] Dr. Mariann Tolbert #0.2 103/ulNormal0.0-0.7The [facility] HospitalComment on above: Performed By: #### CBC #### [facility] [address] [place] [address] Dr. Mariann Wyattosinophils/100 WBC (Bld)4.4 %Normal0.9-7.0[facility] Comment on above:Performed By: #### CBC #### [facility] [address] [place] [address] Dr. Mariann Wyattrythrocyte distribution width (RBC) [Ratio]14.8 %Yjhjhb27.0-15.0 The [facility] HospitalComascension [facility] on above:Performed By: #### CBC #### [facility] [address] [place] [address] Dr. Mariann OdomHematocrit (Bld) [Volume fraction]41.1 %Critically low42.0-54.0 The [facility] HospitalComment on above:Performed By: #### CBC #### [facility] [address] [place] [address] Dr. Mariann OdomHemoglobin (Bld) [Mass/Vol]13.1 g/dLCritically low14.0-18.0[facility] on above:Performed By: #### CBC #### [facility] [address] [place] [address] Dr. Mariann Guy #0.01 10e3/ulNormal0.00-0.03The [facility] on above:Performed By: #### CBC #### [facility] [address] [place] [address] Dr. Mariann Guy %0.2 %Normal0.0-0.5The [facility] on above: Performed By: #### CBC #### [facility] [address] [place] [address] Dr. Mariann YoungH #1.6 103/ulNormal1.2-3.8The [facility] HospitalComment on above:Performed By: #### CBC #### [facility] [address] [place] [address] Dr. Mariann Peñalozamphocytes/100 WBC (Bld)30.9 %Juccus27.5-60.0The [facility] on above:Performed By: #### CBC #### [facility] [address] [place] [address] Dr. Mariann DiazUAL DIFF REQNONormalThe [facility] HospitalComment on above: Performed By: #### CBC #### [facility] [address] [address] [address] Mariann Navarro (RBC) [Entitic mass]28.4 pwEkbydz52.9-34.0The [facility] HospitalComment on above:Performed By: #### CBC #### [facility] [address] [place] [address] Dr. Mariann Navarro (RBC) [Mass/Vol]31.9 g/qBRpacgt92.9-35.2The [facility] HospitalComment on above:Performed By: #### CBC #### [facility] [address] [place] [address] Dr. Mariann Navarro (RBC) [Entitic vol]89.2 mRNifwsy91.0-94.0The [facility] HospitalComment on above:Performed By: #### CBC #### [facility] [address] [place] [address] Dr. Mariann Zabala #0.5 103/ulNormal0.3-0.8The [facility] HospitalComment on above:Performed By: #### CBC #### [facility] [address] [place] [address] Dr. Mariann Scruggsocytes/100 WBC (Bld)9.4 %Normal1.7-12.0The [facility] Comment on above:Performed By: #### CBC #### [facility] [address] [place] [address] Dr. Mariann Faria #2.7 103/ulNormal1.4-6.5The [facility] HospitalComment on above:Performed By: #### CBC #### [facility] [address] [place] [address] Dr. Mariann Orrutrophils/100 WBC (Bld)54.1 %Qteojv76.0-75.0The [facility] HospitalComment on above:Performed By: #### CBC #### [facility] [address] [place] [address] Dr. aMriann Schraderlet mean volume (Bld) [Entitic vol]11.3 fLNormal9.5-13.5The [facility] HospitalComment on above:Performed By: #### CBC #### [facility] [address] [address] [address] Mariann OdomPLT251 103/jdKggkzx274-378Wtf [facility] HospitalComment on above: Performed By: #### CBC #### [facility] [address] [place] [address] Dr. Mariann OdomRBC4.61 106/ulCritically low4.70-6.10The [facility] HospitalComment on above:Performed By: #### CBC #### [facility] [address] [place] [address] Dr. Mariann OdomWBC5.0 103/ulNormal4.0-11.0The [facility] HospitalComment on above: Performed By: #### CBC #### [facility] [address] [place] [address] Dr. Mariann ThapaF 14(COMP METB)on [id number] [Mass/Vol]3.7 g/dLNormal 3.4-5.0The [facility] HospitalComment on above:Performed By: #### CMP #### [facility] [address] [place] [address] Dr. Mariann OdomAlbumin/Globulin [Mass ratio]1.0 {ratio}NormalThe [facility] Hospitalment on above:Performed By: #### CMP #### [facility] [address] [place] [address] Dr. Mariann Gomez [Catalytic activity/Vol]87 U/VFfwedg97-834Onj [facility] Hospitalment on above:Performed By: #### CMP #### [facility] [address] [place] [address] Dr. Mariann Vela [Catalytic activity/Vol]39 U/EXcbvkb74-95Vvi [facility] Hospitalment on above:Performed By: #### CMP #### [facility] [address] [place] [address] Dr. Mariann Kasper gap [Moles/Vol]10.2 mmol/LNormalThe [facility] on above:Performed By: #### CMP #### [facility] [address] [address] [address] Mariann OdomAST [Catalytic activity/Vol]22 U/GAkquvv18-24Mfs [facility] HospitalComment on above:Performed By: #### CMP #### [facility] [address] [address] [address] Mariann OdomBilirubin [Mass/Vol]0.3 mg/dLNormal0.2-1.0The [facility] Comment on above:Performed By: #### CMP #### [facility] [address] [address] [address] Mariann OdomCalcium [Mass/Vol]9.4 mg/dLNormal8.5-10.1The [facility] Comment on above:Performed By: #### CMP #### [facility] [address] [address] [address] Mariann OdomChloride [Moles/Vol]105 mmol/NQwycoc90-830Hzs [facility] Comment on above:Performed By: #### CMP #### [facility] [address] [address] [address] Mariann OdomCO2 [Moles/Vol]28.9 mmol/QNkmxdp89.0-32.0The [facility] Comment on above:Performed By: #### CMP #### [facility] [address] [address] [address] Mariann OdomCreatinine [Mass/Vol]0.93 mg/dLNormal0.70-1.30The [facility] HospitalComment on above:Performed By: #### CMP #### [facility] [address] [address] [address] Mariann WyattGFR-AF NIUEAN>60Normal>=60The [facility] HospitalComment on above:Performed By: #### CMP #### [facility] [address] [address] [address] Mariann WyattGFR-NON AF NIUEAN>60Normal>=60The [facility] HospitalComment on above:Performed By: #### CMP #### [facility] [address] [address] [address] Mariann OdomGlobulin (S) [Mass/Vol]3.7 g/dLNormalThe [facility] HospitalComment on above:Performed By: #### CMP #### [facility] [address] [address] [address] Mariann OdomGlucose [Mass/Vol]253 mg/dLCritically cspx41-193Yxy [facility] HospitalComment on above:Performed By: #### CMP #### [facility] [address] [address] [address] Mariann OdomPotassium [Moles/Vol]4.1 mmol/LNormal3.5-5.1The [facility] Comment on above:Performed By: #### CMP #### [facility] [address] [address] [address] Mariann OdomProtein [Mass/Vol]7.4 g/dLNormal6.4-8.2The [facility] Comment on above:Performed By: #### CMP #### [facility] [address] [place] [address] Dr. Mariann OdomSodium [Moles/Vol]140 mmol/PMslytj323-554Pdz [facility] Comment on above:Performed By: #### CMP #### [facility] [address] [address] [address] Mariann OodmUrea nitrogen [Mass/Vol]15.0 mg/dLNormal7.0-18.0The [facility] HospitalComment on above:Performed By: #### CMP #### [facility] [address] [address] [address] Mariann Garibay nitrogen/Creatinine [Mass ratio]16.1 mg/mgNormalThe [facility] HospitalComment on above:Performed By: #### CMP #### [facility] [address] [address] [address] Mariann Douglas RATE WESTERGRENon 23-90-1748COM RATE15 mm/hrNormal<=20The [facility] HospitalComment on above:Performed By: #### CMP #### [facility] [address] [address] [address] Mariann Odom Vital Signs Date TimeVital SignValuePerforming VeujtsifaSgsytula69-72-5159 09:35-0400Body nazvwq862.8 cmMajor Stevens MD Work Phone: [phone])[address]10-22-2025 09:35-0400 Body mass index (BMI) [Ratio]30.4 kg/m2Major Stevens MD Work Phone: 1(587)[address] [place], [place] 7044510-22-2025 09:35-0400 Body zvowjifuhbd57.1 [degF]Major Stevens MD Work Phone: 1(949)[address] [place], [place] 7645310-22-2025 09:35-0400 Body rsoqte83.16 kgMajor Stevens MD Work Phone: 1(688)[address] [place], [place] 7645310-22-2025 09:35-0400 Diastolic blood uobdomly97 mm[Hg]Major Stevens MD Work Phone: 1(266)[address]10-22-2025 09:35-0400 Heart rate67 /minMajor Stevens MD Work Phone: 1(555)[address]10-22-2025 09:35-0400 Respiratory rate20 /minMajor Stevens MD Work Phone: 1(010)[address] [place], [place] 7645310-22-2025 09:35-0400 SaO2% (BldA) [Mass fraction]98 %Major Stevens MD Work Phone: [phone])[address]10-22-2025 09:35-0400 Systolic blood qzmwaboz836 mm[Hg]Major Stevens MD Work Phone: 1(705)[address]04-23-2025 09:15-0400 Body uauexr391.8 cmMajor Stevens MD Work Phone: [facility] CenterJfttcxmapu45-06-9774 09:15-0400Body mass index (BMI) [Ratio]29.84 kg/m2Major Stevens MD Work Phone: noHermann [facility] HospitalLxwabukwrs08-07-2911 09:15-0400Body temperature 97.5 [degF]Major Stevens MD Work Phone: [facility] CenterWrereyokeh33-48-3295 09:15-0400Body vpnirv22.35 kgMajor Stevens MD Work Phone: [facility] CenterMkzhrewtpx68-09-4092 09:15-0400Diastolic blood mpaizgke87 mm[Hg]Major Stevens MD Work Phone: [facility] CenterCiawnhfkns89-28-4171 09:15-0400Heart rate69 /min Major Stevens MD Work Phone: [facility] CenterKhtugrtvkk05-33-4360 09:15-0400Respiratory rate18 /minMajor Stevens MD Work Phone: [facility] CenterScwqwquvqq80-83-4519 09:15-8220MvZ4% (BldA) [Mass fraction]97 %Major Stevens MD Work Phone: [facility] CenterIjjzmyvwki83-35-3258 09:15-0400Systolic blood mm[Hg]Major Stevens MD Work Phone: [facility] CenterSgirlsivxd48-03-5196 10:45-0500Body mass index (BMI) [Ratio]29.27 kg/p7OunoodIsha Valentino MD Work Phone: [facility]03-04-2025 10:45-0500 Body itibhmrlnfi49.3 [degF]Isha Valentino MD Work Phone: [facility]03-04-2025 10:45-0500 Body podwfq51.53 kgIsha Valentino MD Work Phone: [facility]03-04-2025 10:45-0500 Diastolic blood ovlwieyo36 mm[Hg]Isha Valentino MD Work Phone: [facility]03-04-2025 10:45-0500 Heart rate66 /minIsha Valentino MD Work Phone: [facility]03-04-2025 10:45-0500 Respiratory rate20 /minIsha Valentino MD Work Phone: [facility]03-04-2025 10:45-0500 Systolic blood zpbnlerw282 mm[Hg]Isha Valentino MD Work Phone: [facility]10-22-2024 09:01-0400 Body mass index (BMI) [Ratio]29.62 kg/m2Major Stevens MD Work Phone: [facility] CenterQtbghnbajt22-58-7709 09:01-0400Body temperature 97.3 [degF]Major Stevens MD Work Phone: [facility] CenterNflnlqvqsg25-43-2673 09:01-0400Body knzfeu27.62 kgMajor Stevens MD Work Phone: [facility] CenterBmvstyapie03-40-3529 09:01-0400Diastolic blood otelnbgn72 mm[Hg]Major Stevens MD Work Phone: [facility] CenterOvobkiphhd59-46-1505 09:01-0400Heart rate62 /min Major Stevens MD Work Phone: [facility] CenterPngswrwrrs62-44-1816 09:01-6491XwW6% (BldA) [Mass fraction]98 %Major Stevens MD Work Phone: [facility] CenterPejsknpeyl74-77-1381 09:01-0400Systolic blood utwgpvun305 mm[Hg]Major Stevens MD Work Phone: [facility] CenterSabtazkmnr73-50-1486 14:31-0400Body vhifbl575.8 cmIsha Valentino MD Work Phone: [facility]05-21-2024 14:31-0400 Body mass index (BMI) [Ratio]30.13 kg/i4OzylsiIsha Valentino MD Work Phone: [facility]05-21-2024 14:31-0400 Body wgcetabvsme29.4 [degF]Isha Valentino MD Work Phone: 1216[facility] [employer], [place] 9251805-21-2024 14:31-0400 Body rvibmc56.25 kgIsha Valentino MD Work Phone: 1216)[address] [place], [place] 5021005-21-2024 14:31-0400 Diastolic blood srljzlem84 mm[Hg]Isha Valentino MD Work Phone: 1(216)[address] [place], [place] 5021005-21-2024 14:31-0400 Heart rate69 /Nkechi Valentino MD Work Phone: 1216)[address] [place], [place] 5021005-21-2024 14:31-0400 Respiratory rate18 /Nkechi Valentino MD Work Phone: 1216)[address] [place], [place] 5021005-21-2024 14:31-0400 Systolic blood wanifyuy566 mm[Hg]Isha Valentino MD Work Phone: 1216)[address]03-13-2024 16:00-0400 Body ivzjpazvnjo40.4 [degF]Isha Valentino MD Work Phone: [address] [place], [place] 5021003-13-2024 16:00-0400 Diastolic blood yjxqxjrf674 mm[Hg]Isha Valentino MD Work Phone: 1216)[address] [place], [place] 5021003-13-2024 16:00-0400 Heart rate96 /Nkechi Valentino MD Work Phone: 1216)[facility] [employer], [place] 9251803-13-2024 16:00-0400 Respiratory rate18 /Nkechi Valentino MD Work Phone: [address] [place], [place] 5021003-13-2024 16:00-0400 SaO2% (BldA) [Mass fraction]98 %Isha Valentino MD Work Phone: [address] [place], [place] 5021003-13-2024 16:00-0400 Systolic blood qatswixi248 mm[Hg]Isha Valentino MD Work Phone: 1(746)227-[address] [place], [place] 3982703-08-2024 13:33-0500 Body sxowtmriyxf65.0Isha Valentino MD Work Phone: 1(732)[address]03-08-2024 13:33-0500 SaO2% (BldA) [Mass fraction]100 %Isha Valentino MD Work Phone: 1(991)[address]03-08-2024 13:19-0500 Body ymwwdosyuzi87.0 degrees CelsiusFairfield Medical CenterComment on above:Performed By: #### [id number] #### PACHECO Ferraro ([id number]) [facility] ([facility]) [address] [place], [place] 5832303-08-2024 13:19-6810AlJ5% (BldA) [Mass fraction]100 %[facility] Medical CenterComment on above:Performed By: #### [id number] #### PACHECO Ferraro ([id number]) [facility] ([facility]) [address] [place], [place] 5832303-08-2024 12:51-0500Body ulglmudljyn04.0Isha Valentino MD Work Phone: 1(257)[address]03-08-2024 12:51-0500 SaO2% (BldA) [Mass fraction]100 %Isha Valentino MD Work Phone: 1(150)224-[address] [employer], [place] 9251803-08-2024 12:36-0500 Body tvedxldcfci18.0 degrees CelsiusFairfield Medical CenterComment on above:Performed By: #### 14039-0 #### PACHECO Ferraro ([id number]) [facility] ([facility]) [address] [place], [place] 5832303-08-2024 12:36-3231SkQ0% (BldA) [Mass fraction]100 %[facility] Medical CenterComment on above:Performed By: #### 64836-3 #### PACHECO Ferraro ([id number]) [facility] ([facility]) [address] [place], [place] 5832303-08-2024 11:09-0500Body wsveehgrlrw12.0Isha Valentino MD Work Phone: 1(179)451-[address] [place], [place] 3982703-08-2024 11:09-0500 SaO2% (BldA) [Mass fraction]100 %Isha Valentino MD Work Phone: 1(216)691-[address] [employer], [place] 9251803-08-2024 10:49-0500 Body dwuvusptebd03.0 degrees CelusFairfield Medical CenterComment on above:Performed By: #### 11596-2 #### PACHECO Ferraro ([id number]) [facility] ([facility]) [address] [place], [place] [address]-08-2024 10:49-6743OqF5% (BldA) [Mass fraction]100 %[facility] Medical CenterComment on above:Performed By: #### 37695-1 #### PACHECO Ferraro ([id number]) [facility] ([facility]) [address] [place], [place] 5832303-08-2024 09:27-0500Body rsabxznxyqv31.0Isha Valentino MD Work Phone: 1(513)828-[facility]03-08-2024 09:27-0500 SaO2% (BldA) [Mass fraction]100 %Isha Valentino MD Work Phone: 5(597)972-[address] [employer], [place] 9251803-08-2024 09:00-0500 Body lzbnejxezza76.0 degrees CelMercy Health West HospitalComment on above:Performed By: #### 32980-7 #### PACHECO Ferraro ([id number]) [facility] ([facility]) [address] [place], [place] [address]-08-2024 09:00-1000MrA7% (BldA) [Mass fraction]100 %[facility] Medical CenterComment on above:Performed By: #### 70864-7 #### PACHECO Ferraro ([id number]) [facility] ([facility]) [address] [place] [address] [id number] 05:53-0500Body sdavmm502.8 cmIsha Valentino MD Work Phone: [facility]03-08-2024 05:53-0500 Body mass index (BMI) [Ratio]30.18 kg/x1CopiscIsha Valentino MD Work Phone: [facility]03-08-2024 05:53-0500 Body bjjiea21.4 kgIsha Valentino MD Work Phone: [facility]01-03-2024 10:40-0500 Body thuoxu013.34 cmJelinneaica Cat Other [employer] Other 01-03-2024 10:40-0500Body mass index (BMI) [Ratio] 30.26 kg/y1Kfnctsx Cat Other [employer] Other 01-03-2024 10:40-0500Body tfahlj06.43 kgJessica Cat Other [employer] Other 11-27-2023 09:45-0500Body iuvpbk715.34 Mehdi Sandoval Other [employer] Other 11-27-2023 09:45-0500Body mass index (BMI) [Ratio] 30.12 kg/r8WoxkifAbel Sandoval Other [employer] Other 11-27-2023 09:45-0500Body kmmorh05.98 kgSherikaushik Sandoval Other [facility] [employer] Other 11-27-2023 09:45-0500Diastolic blood bofgsqfi09 mm[Hg] Abel Lori Other [facility] [employer] Other 11-27-2023 09:45-3457FtS8% (BldA) [Mass fraction]99 % Abel Sandoval Other [facility] [employer] Other 11-27-2023 09:45-0500Systolic blood wsvkjosx603 mm[Hg] Abeldahiana Sandoval Other [place] [employer] Other 11-15-2023 10:35-0500Diastolic blood mm[Hg] MD Major Stevens Work Phone: 1(534)442-[address] [place], [place] 1373611-15-2023 10:35-0500 Heart rate65 /minMD Major Stevens Work Phone: 1(955)007-[address] [place], [place] 1373611-15-2023 10:35-0500 Respiratory rate16 /minMD Major Stevens Work Phone: 1(024)631-[address] [place], [place] 1373611-15-2023 10:35-0500 SaO2% (BldA) [Mass fraction]97 %MD Major Stevens Work Phone: 8(466)124-[facility]11-15-2023 10:35-0500 Systolic blood htcuhjvu796 mm[Hg]MD Major Stevens Work Phone: 1(493)949-[facility]11-15-2023 09:57-0500 Inhaled oxygen flow rate3 L/minMD Major Stevens Work Phone: 1([phone])158-[address] [place], [place] 1373611-15-2023 08:54-0500 Body .8 cmMD Major Stevens Work Phone: 1(065)411-[address] [place], [place] 1373611-15-2023 08:54-0500 Body .52 kgMD Major Stevens Work Phone: 1(532)447-[address] [place], [place] 1373610-25-2023 11:33-0400 Diastolic blood ffrxyfxl44 mm[Hg]MD Major Stevens Work Phone: 1(336)[address]10-25-2023 11:33-0400 Heart rate70 /minMD Major Stevens Work Phone: [phone])[address]21 [address]10-25-2023 11:33-0400 Respiratory rate16 /minMD Major Stevens Work Phone: [phone])[address]10-25-2023 11:33-0400 SaO2% (BldA) [Mass fraction]98 %MD Major Stevens Work Phone: 1(690)43021 [address]10-25-2023 11:33-0400 Systolic blood ncqbaehx951 mm[Hg]MD Major Stevens Work Phone: 1(542)[address]10-25-2023 11:05-0400 Inhaled oxygen flow rate3 L/minMD Major Stevens Work Phone: 1([phone])[address]10-25-2023 10:40-0400 Body .8 cmMD Major Mendezdayron Work Phone: 1([phone])[address]10-25-2023 10:40-0400 Body cqbyoz56.52 kgMD Major Stevens Work Phone: 1(651)590-[address] [place], [place] 1373610-03-2023 08:30-0400 Body .34 cmSherdahiana Sandoval Other [facility] [employer] Other 10-03-2023 08:30-0400Body mass index (BMI) [Ratio] 30.12 kg/i1JubybmAbel Sandoval Other [place] [employer] Other 10-03-2023 08:30-0400Body xweldn90.98 kgSherif Lori Other [place] [employer] Other 10-03-2023 08:30-0400Diastolic blood uvnyxzil13 mm[Hg] Abel Sandoval Other [facility] [employer] Other 10-03-2023 08:30-0952QdI9% (BldA) [Mass fraction]98 % Abel Sandoval Other [facility] [employer] Other 10-03-2023 08:30-0400Systolic blood rvwzpuwr875 mm[Hg] Abel Sandoval Other [facility] [employer] Other Encounters Encounter DateEncounter TypeCare ProviderFacilityStart: 61-95-2917kpqovprxgw Tomy Baldwin NILLFacility: [facility]vueStart: 36-61-3766cnzkaugddwYwapbze NILRonan Facility: [facility]vueStart: 01-14-2025 End: 11-11-2399ahavjabjcoXruv Naderer MD Work Phone: -[facility] ClydeStart: 01-14-2025 End: 18-24-3814Byeqcpr encounter procedureMajor Stevens MD-[facility] [place] Work Phone: Start: 11-12-2024 End: 86-72-2352Piaftqnmo Result EncounterGeneric External Data ProviderNOMS External Department UnsolicitedStart: 11-12-2024 End: 82-88-9699Jbntowjxa Result EncounterGeneric External Data ProviderNOMS External Department UnsolicitedStart: 07-16-2024 End: 09-02-2832Nhntzy flowsAva Stevens MD Work Phone: noms Mary FMStart: 07-16-2024 End: 38-72-8353Cmyhdn Chencho Stevens MD Work Phone: noms CWMary FMStart: 07-16-2024 End: 45-25-6107Apfvwtrel Result EncounterMajor Stevens MD Work Phone: noms External Department UnsolicitedStart: 07-16-2024 End: 39-76-1230Rgnhge outpatient visit 25 minutesMajor Stevens MD Work Phone: noms [facility] FMComment on above:Type 2 diabetes mellitus with hyperglycemia, without long-term current use of insulin ([facility]) (Primary Dx); Essential hypertension ([facility]); Lumbar spondylosis; Arthropathic psoriasis, unspecified ([facility])Start: 07-16-2024 End: 20-46-7752jgixusgunlTOZH NADERERNot AvailableStart: 06-25-2024 End: 41-67-0662Twyrnxpvz Result EncounterGeneric External Data ProviderNOMS External Department UnsolicitedStart: 06-25-2024 End: 49-70-7379Xkdbggkrt Result EncounterGeneric External Data ProviderNOMS External Department UnsolicitedStart: 05-27-2024 End: 65-36-9698Mubtcfevc Result EncounterGeneric External Data ProviderNOMS External Department UnsolicitedStart: 05-27-2024 End: 47-38-0090Giyrhycsx Result EncounterGeneric External Data ProviderNOMS External Department UnsolicitedStart: 05-27-2024 End: 47-82-3476Benwdx outpatient visit 25 minutesIsha Valentino MD Work Phone: [facility] PavilionComment on above:S/P spinal surgery (Primary Dx)Start: 05-27-2024 End: 06-59-2618Wmmwwdlujb hospital visit by physicianluis Retana X-Ray [facility] PavilionComment on above:S/P lumbar spinal fusion; Scoliosis of thoracolumbar region due to degenerative disease of spine in adult Start: 05-27-2024 End: 89-03-1596wzvxfglyynEUSJTGCleveland Clinic Marymount Hospitaltart: 02-19-2024 End: 73-08-7803Coeskbitc Result EncounterGeneric External Data ProviderNOMS External Department UnsolicitedStart: 02-19-2024 End: 73-24-6475Ojdiyxlhg Result EncounterGeneric External Data ProviderNOMS External Department UnsolicitedStart: 01-15-2024 End: 25-39-8912Joyoeb flowsAva Stevens MD Work Phone: [facility] CWM FMStart: 01-15-2024 End: 69-92-5423Lxtxvt flowsAva Stevens MD Work Phone: noms CWM FMStart: 01-15-2024 End: 92-29-2137Wizvskx encounter procedureMajor Stevens MD Work Phone: [facility] Work Phone: Start: 01-15-2024 End: 74-49-6752Xpttuikn preventive med est patient 40-64yrsMarc Radha COPELAND Work Phone: noms CWM FMComment on above:Annual physical exam (Primary Dx); Type 2 diabetes mellitus with hyperglycemia, without long-term current use of insulin (CMS/HCC); Essential hypertension (CMS/HCC)Start: 01-15-2024 End: 51-74-2103affjnrdeezQNUN NADERERNot AvailableStart: 11-14-2023 End: 92-69-1709Wkdnrhxlq Result EncounterGeneric External Data ProviderNOMS External Department UnsolicitedStart: 11-14-2023 End: 95-72-7172Qhpjuixrr Result EncounterGeneric External Data ProviderNOMS External Department UnsolicitedStart: 10-17-2023 End: 87-73-6742otmzkoboafBKMD NADERERNot AvailableStart: 08-23-2023 End: 97-97-4275zvgdovrdmrETFOCV T GRACIETONNot AvailableStart: 08-21-2023 End: 67-03-4266iedmzynrvaMXVISBIB BRINKNot AvailableStart: 08-16-2023 End: 15-91-6515idumvotlsrIRWASXIQ BRINKNot AvailableStart: 08-14-2023 End: 44-59-4596Qyaooj follow up visit related to original Rosaura Valentino MD Work Phone: [facility] PavilionComment on above:Postoperative follow-up (Primary Dx)Start: 08-14-2023 End: 64-80-6759Fawokuhabq hospital visit by physicianRufina Retana X-Ray [facility] PavilionComment on above:S/P lumbar spinal fusion; Scoliosis of thoracolumbar region due to degenerative disease of spine in adult Start: 08-14-2023 End: 76-70-2536Nflqeoeva Result EncounterGeneric External Data ProviderNOMS External Department UnsolicitedStart: 08-14-2023 End: 99-16-3157Ieaweikzs Result EncounterGeneric External Data ProviderNOMS External Department UnsolicitedStart: 08-14-2023 End: 93-49-7046gzubfyydmjOWUMTSCleveland Clinic Marymount Hospitaltart: 08-13-2023 End: 42-93-1014lvlubpsoonBEWEBM T BLACKSTONNot AvailableStart: 08-09-2023 End: 44-53-6691vczvivchzeGPVSOIRY BRINKNot AvailableStart: 08-06-2023 End: 11-54-5310tmnyvfmignERHSQI T BLACKSTONNot AvailableStart: 08-02-2023 End: 92-24-5179rheussifzjYTUCHQFY BRINKNot AvailableStart: 07-30-2023 End: 54-42-3394kwhudtdctwCIYWCIJB BRINKNot AvailableStart: 07-26-2023 End: 23-00-1210jkkohcstbjSKPZSZ T BLACKSTONNot AvailableStart: 07-10-2023 End: 47-46-8580Rdqhbiwqx Result EncounterGeneric External Data ProviderNOMS External Department UnsolicitedStart: 07-10-2023 End: 42-40-3563Jxkhfdhpb Result EncounterGeneric External Data ProviderNOMS External Department UnsolicitedStart: 07-10-2023 End: 79-86-1834Qkiasywxem hospital visit by Analilia Retana X-Ray 4 [facility] PavilionComment on above:Status post spinal surgeryStart: 07-10-2023 End: 41-51-8318gxnrodnzgkMZQFVJWellstar Paulding Hospital Medical CenterStart: 94-65-9537lcojcrtifuEPRI PHYSICIANFacility:RStart: 06-01-2023 End: 78-50-9543Xpelgdqvuh and management of inpatientIsha Valentino MD Work Phone: [facility] Chance Pansey 4Comment on above:Lumbar radiculopathy, right (Primary Dx); Spinal stenosis of lumbar region with neurogenic claudication; Sagittal plane imbalance; Scoliosis of thoracolumbar region due to degenerative disease of spine in adult; Lumbar foraminal stenosis; Lumbar radiculopathy, acute; Lumbar stenosis with neurogenic claudication; Postoperative pain; Constipation due to pain medication; Psoriatic arthritis ([facility])Start: 05-17-2023 End: 54-43-7449xdnzlvphnbYGCBCleveland Clinic Hillcrest Hospitaltart: 05-17-2023 End: 04-62-8848zothqkeakgPGABQV Isabelle [facility] Centertart: 05-17-2023 End: 45-76-6208Musdezaff for other preprocedural examinationISHA Walton [facility] Hospitaltart: 05-17-2023 End: 57-49-5673Feldssa encounter statusUC [facility] Work Phone: Start: 05-17-2023 End: 55-76-2556Yshqqrnq examinationUC West Chester Hospital Work Phone: Start: 05-17-2023 End: 26-89-0691Khoioovsoc hospital [facility] physician[facility] Bhp1730 Cr Nonv1 Holter/Ecg [facility] MatherComment on above:Surgery, elective; Preop testing; Preoperative general physical examinationStart: 04-24-2023 End: 63-52-8044emrkobxhwiFPDZSWUniversity Hospitals Beachwood Medical Centertart: 04-24-2023 End: 95-79-4877Yngzoudake hospital visit by physicianRufina Retana X-Ray [facility] PavilionComment on above:Spinal stenosis of lumbar region with neurogenic claudicationStart: 50-88-4786Dqkqhf Cher Villa MD Work Phone: [facility] SpineStart: 03-29-2023 End: 94-64-7616pboitrlyxrCbwxwxv Springer Other [employer] Other start: 15-80-7735Swfpssnzq encounterHenrylinneabrandy Cat [facility] Referral CoordinatorStart: 03-28-2023 End: 01-78-3517xvcyoslfldZiejits Springer Other nort [employer] Other start: 50-81-6648Cxlaog outpatient visit 25 minutes Natty Infante [facility] NeurosurgeryStart: 02-19-2023 End: 86-73-2606xohgskisreQckbbx Zaky Other nort [employer] Other Start: 22-23-2789Rzrfye outpatient visit 25 minutes Abel Dexter Pain ManagementStart: 02-07-2023(PROC) PROCEDURESherdahiana Sandoval [facility] OutPtStart: 02-07-2023 End: 25-43-6895meiuilmaahDbakwa S ZakyFacility:[facility] Start: 02-07-2023 End: 49-96-0779Yfarldbpl to same day surgery centerMD Major Stevens Work Phone: [facility] Work Phone: Start: 02-07-2023 End: 60-86-4877lffileduqoNS Marc Naderer Work Phone: [facility] [facility] Work Phone: Start: 01-17-2023(PROC) PROCEDURESulysses [facility] OutPtStart: 01-17-2023 End: 98-18-3441jyhxjkrhzbTtpwqf S ZakyFacility:[facility] Start: 01-17-2023 End: 98-64-8816Juugvowuk to same day surgery centerMD Major Stevens Work Phone: [facility] Work Phone: Start: 01-17-2023 End: 95-05-4531vlwrktvjmtJZ Marc Naderer Work Phone: [facility] Work Phone: Start: 12-26-2022 End: 62-15-0534eqqnsacnpdXlmacy Zaky Other [employer] Other Start: 28-49-9714Guwxib outpatient visit 25 minutes Aebldahiana Dexter Pain ManagementStart: 12-15-2022 End: 35-35-3499pdrsfhojszMlbzu HartFacility:[facility] Start: 12-15-2022 End: 86-33-4927Wxfuojc encounter procedureMD Major Stevens Work Phone: [facility] [address] Work Phone: Start: 10-25-2022 End: 72-89-6002lixrwjldyjSiczcd Zaky Other [employer] Other Start: 77-42-8495Xmiouuhin encounterSherdahiana Dexter Pain ManagementStart: 10-16-2022 End: 20-50-9143nkylczfzeyEfbrut S ZakyFacility:[facility] Start: 07-19-2022 End: 72-95-2617lhxskinwrcEW TONIA PADILLAFacility:Y9Kmwre: 04-11-2022 End: 30-58-6161aytvyvjmvrQI TONIA PADILLAFacility:F3Hicle: 04-03-2022 End: 25-53-8913zudwomgxbpFQ MAJOR STRONGacility:Y6Mlvom: 01-03-2022 End: 42-87-2873jhjlsagpjcOY TONIA PADILLAFacility:B8Jqatf: 73-05-1822Qyolclucj for general adult medical examination without abnormal findingsDR MAJOR STEVENS [facility] HospitalStart: 09-13-2021 End: 86-57-0470chubwnnoagNW MAJOR Martinez PACHECOGEORFacility:I4Zrwra: 09-13-2021 End: 46-00-0260Wxasnqrxw for general adult medical examination without abnormal findingsDR MAJOR Martinez PACHECOGEORFacility:G5Hnxki: 08-24-2021 End: 09-03-6673jqvgutnngrIF TONIA PADILLAFacility:H1 Procedures DateProcedureProcedure DetailPerforming ClinicianStart: 22-16-4157DWU CBC WITH AUTO DIFFGeneric External Data ProviderStart: 85-98-2782IGT HEMOGLOBIN Y5CSmhl Radha COPELAND Work Phone: Start: 60-52-6037JNY CBC WITH AUTO DIFFGeneric External Data ProviderStart: 61-07-9976FO SCOLIOSIS SERIES 2 TO 3 VIEWSGeneric External Data ProviderStart: 10-45-4763JJC CBC WITH AUTO DIFFGeneric External Data ProviderStart: 05-51-3061AQU SED RATEGeneric External Data ProviderStart: 25-89-9991XVY CMP (CMP) (FOR REMOTE [facility] USE)Generic External Data ProviderStart: 23-02-1572JFP CBC WITH AUTO DIFFGeneric External Data ProviderStart: 08-14-2023 X-ray exam of trunk spineGeneric External Data ProviderStart: 19-43-2248QQ SCOLIOSIS 2 VIEW (NON EOS)ISHA VALENTINOStart: 77-47-1070N-ray exam of trunk spineGeneric External Data ProviderStart: 88-64-5940QXAYEEPOL PATIENTJULIAETTAMARVIN [facility]USYESICAKINGSBROOK JEWISH MEDICAL CENTERStart: 09-80-4109BXLLDZEMXYTPWE [facility] MEM[facility]IAL CAMPUSZOEStart: 59-30-0321ZUUBP DISCHARGE DIETJULIAETTAMARVIN VALENTINOStart: 15-97-6008RHADIALTC ACTIVITYJULIAETTAMARVIN Ambrizart: 64-90-3644SLUPLGZLL INSTRUCTIONSJULIAETTAMARVIN [facility] Hospitalart: 00-55-1984GRKSDD PROVIDER (DO NOT PROMPT FOR PARAMETERS)ISHA Ambrizart: 17-86-3744Lygnkne [Mass/volume] in Serum or PlasmaISHA VALENTINOStart: 15-97-2131Kpygpqp quantitative blood xcpt reagent Kamala Valentino MD Work Phone: Start: 10-84-5333AOIABKRI PATIENT TO [facility]: 91-63-2365TJU panel - Blood by Automated countSUMANTHMARVIN CHELSY Start: 95-93-5850HOTTC FUNCTION PANELJULIAETTAMARVIN DYSONAlomere Health Hospitalart: 77-91-0022Nbzeltw [Mass/volume] in Serum or PlasmaOrem Community Hospitalart: 06-06-2023 End: 59-25-4913Davdl function panelRenetta Knox SUPERVISOR BLOOD [employer]OR [employer]TER [employer]ISTANCE [employer]ACHINE Work Phone: Start: 10-90-7481Iyfhqsx [Mass/volume] in Serum or PlasmaSoutheast [facility]: 57-12-9976Jgkftno quantitative blood xcpt reagent Kamala Valentino MD Work Phone: Start: 60-12-5801Ulrspak [Mass/volume] in Serum or PlasmaSoutheast Colorado Hospital: 33-37-2465Udtqmcu quantitative blood xcpt reagent Kamala Valentino MD Work Phone: Start: 35-51-2802Puyhelz [Mass/volume] in Serum or PlasmaJULIAETTAMARVIN [facility]: 23-23-8951Rergfxl quantitative blood xcpt reagent Kamala Vaelntino MD Work Phone: Start: 84-77-0035Rqpnlyo [Mass/volume] in Serum or PlasmaRIVERTON HOSPITALMICHAELCanyon: 19-32-6339Kdzeltz quantitative blood xcpt reagent Kamala Valentino MD Work Phone: Start: 91-71-2678Oxszucw [Mass/volume] in Serum or PlasmaSoutheast Colorado Hospital: 60-55-8043Jkbnxpa quantitative blood xcpt reagent Kamala Valentino MD Work Phone: Start: 16-19-7426Rpysjsc [Mass/volume] in Serum or PlasmaRIVERTON HOSPITALMICHAELart: 82-03-4602Hkokupg quantitative blood xcpt reagent stripIsha Valentino MD Work Phone: Start: 28-23-3626Gdcsakq [Mass/volume] in Serum or PlasmaISHA VALENTINOStart: 80-61-2914Xjzan metabolic 2000 panel - Serum or PlasmaISHA VALENTINOStart: 04-17-1203YGU panel - Blood by Automated countOHIO STATE HARDING [facility] JANUARYWALStart: 54-03-3384Unkciih quantitative blood xcpt reagent Kamala Valentino MD Work Phone: Start: 97-58-9434Mmfcmcp [Mass/volume] in Serum or PlasmaISHA VALENTINOStart: 05-21-0229Tilkd metabolic panel calcium total Terrell Johnson MD Work Phone: start: 65-57-7686Mpafkim quantitative blood xcpt reagent Kamala Valentino MD Work Phone: Start: 76-92-8611Jtihlfx [Mass/volume] in Serum or PlasmaISHA SINMICHAELart: 89-32-0015Xbkemeg quantitative blood xcpt reagent Kamala Valentino MD Work Phone: Start: 40-04-0848Yyfymor [Mass/volume] in Serum or PlasmaISHA SINMICHAELStart: 43-58-1776Rtyuqlb quantitative blood xcpt reagent Kamala Valentino MD Work Phone: Start: 30-12-0973Uzuap metabolic 2000 panel - Serum or PlasmaISHA VALENTINOStart: 86-63-9014YPB panel - Blood by Automated count ISHA CHELSYStart: 27-29-0680Sstvoyv [Mass/volume] in Serum or PlasmaSUMANTHISH CHELSYStart: 06-03-2023 End: 13-42-8026Bdmgx metabolic panel calcium totalSenic Johnson MD Work Phone: start: 77-14-2233Fldetyi [Mass/volume] in Serum or PlasmaISHA VALENTINOStart: 27-08-8259Hxkrgzu quantitative blood xcpt reagent Kamala Valentino MD Work Phone: Start: 99-39-1623Xxgfeae [Mass/volume] in Serum or PlasmaOrem Community Hospitalart: 56-01-9281Nxavqui quantitative blood xcpt reagent stripIsha Valentino MD Work Phone: Start: 46-28-1033Ocyfobx [Mass/volume] in Serum or PlasmaHUNTSMAN MENTAL HEALTH INSTITUTEStart: 11-87-0183Sfijkui quantitative blood xcpt reagent stripIsha Valentino MD Work Phone: Start: 51-31-4303DOF panel - Blood by Automated count [facility] Hospitalart: 05-23-8330RFKEVZDUNZEGRXCT KASLIWALStart: 06-02-2023 Magnesium [Mass/volume] in Serum or PlasmaOrem Community Hospitalart: 11-15-4359DERMV FUNCTION PANELOrem Community Hospitalart: 13-05-3507Rdztv function panelSebsaul Johnson MD Work Phone: start: 05-94-8752TVHO CODEOrem Community Hospitalart: 57-62-1619ZKB panel - Blood by Automated countOrem Community Hospitalart: 06-01-2023 FIBRINOGENOrem Community Hospitalart: 98-05-2842Laldgkxyd [Mass/volume] in Serum or PlasmaOrem Community Hospitalart: 00-28-6028FVWIP OXIMETRY, CONTINUOUSOHIO STATE HARDING HOSPITAL KARISUINTAH [facility] Start: 39-62-7363CWJYJ TO INPATIENTOrem Community Hospitalart: 76-30-4649Swsneaq [Mass/volume] in Serum or PlasmaOrem Community Hospitalart: 06-01-2023 End: 83-30-6744Lvuau of magnesiumSebacarline Johnson MD Work Phone: start: 50-17-5585UI FLUORO IMAGES NO CHARGEOrem Community Hospitalart: 96-56-3853BMUOK OXIMETRY, CONTINUOUSPanfabian Bacon MD Work Phone: Start: 68-13-3946Bxgkxcj quantitative blood xcpt reagent stripIsha Valentino MD Work Phone: Start: 06-01-2023 End: 85-93-9854LL tomography Unspecified body regionSjosue Johnson MD Work Phone: start: 06-01-2023 End: 92-19-9961Bpnfleog bldColleen T O'Shalonda CAA Work Phone: Start: 34-70-8166ENSSWCG RBCISHA VALENTINOStart: 79-07-9665JYBUO/VERIFY ABORHMANI CHELSYStart: 58-13-9028MXFAP GAS ARTERIAL FULL PANELISHA VALENTINOart: 17-38-7306Mpvpulwf bldColleen T O'Shalonda CAA Work Phone: Start: 63-90-2372RIQVUYP RBCColleen T O'Shalonda CAA Work Phone: Start: 48-95-6490ITEPMIWRB KARISMICHAELStart: 06-01-2023 VERAB/VERIFY ABORHColleen T O'Shalonda CAA Work Phone: Start: 94-17-9562Ojlfddh [Mass/volume] in Serum or PlasmaISHA Ambrizart: 06-01-2023 End: 32-51-2275Kgfuvxno post/posterolatrl/postinterbody lumbarIsha Valentino MD Work Phone: Start: 62-28-8899Xbiljin quantitative blood xcpt reagent Kamala Valentino MD Work Phone: Start: 98-37-8108OXZ 12-LEADISHA Ambrizart: 49-16-2649Cxe routine ecg w/least 12 lds trcg only w/o i&rLpetrona Theodore MD Work Phone: Start: 58-71-2082Ifdlm metabolic 2000 panel - Serum or PlasmaISHA Ambrizart: 69-74-7645STV panel - Blood by Automated count ISHA Ambrizart: 88-68-6286QNUZ AND SCREENSoutheast [facility] Hospital: 05-17-2023 STAPHYLOCOCCUS AUREUS/MRSA COLONIZATION, CULTURESoutheast [facility] Hospital: 05-17-2023 REQUEST FOR PRE-ADMISSION TESTING VISITSoutheast [facility] Hospital: 04-24-2023 Hemoglobin A1c/Hemoglobin.total in BloodSoutheast Colorado Hospital: 98-10-8588Febdl anesthetic sacral epidural blockMD Major Stevens Work Phone: Start: 37-84-1674Avytucyzu of local anesthetic into sacroiliac jointMD Major Stevens Work Phone: Start: 83-06-2100RD lumbar spine wo conMD Major Stevens Work Phone: Start: 68-99-9717GXT screeningDR TONIA PADILLAComment on above:Performed By: #### A1C #### [facility] [address] [place] [address] Dr. Mariann OdomStart: 26-13-6513TvtbjrqmmvwByolivn Provider Plan of Treatment DateCare ActivityDetailAuthorStart: 00-28-3791Hiyuobxv screeningDiabetes: Retinopathy ScreeningNOND HealthcareStart: 01-16-2025 End: 89-89-7363Pipyblj encounter ocmfwkjgd46/24/2025 9:00 AM EDT [facility] [address] [place] [address] Major Stevens MD [address] [place] [address] [facility] WANDER FMStart: 25-95-7652Fiqeohaoq vaccinationNOND HealthcareStart: 97-85-9335Uruic screening for proteinDiabetes: Urine Protein ScreeningMOUNTAINSTAR HEALTHCARE HealthcareStart: 91-83-6423Cuffasczz for malignant neoplasm of colonNOND HealthcareStart: 07-16-2024 End: 85-49-7158Idguozbgqt A1c/Hemoglobin.total in BloodHemoglobin A1c Lab Routine Type 2 diabetes mellitus with hyperglycemia, without long-term current use of insulin ([facility]) Expected: 07/16/2024 (Approximate), Expires: 07/16/2025 [facility] Work Phone: Comment on above:Expected: 07/16/2024 (Approximate), Expires: 07/16/2025Start: 07-16-2024 End: 95-32-1940Aejyuqx encounter procedureNOMS CWM FMComment on above:Arrived Start: 57-95-6829Jpuprhnc screeningDiabetes: Retinopathy ScreeningNOND HealthcareStart: 33-58-3039Nqnskewjql A1c measurementDiabetes: Hemoglobin A1C [facility] HealthcareStart: 01-15-2024 End: 07-85-4875Hrjdhsi encounter procedureNOMS CWM FMComment on above:Arrived Start: 52-86-1796XrfpspvqwSelect Medical OhioHealth Rehabilitation Hospital - DublinStart: 54-54-4098Mkojh screening for proteinDiabetes: Urine Protein ScreeningMOUNTAINSTAR HEALTHCARE HealthcareStart: 78-09-9715Ybdmhohgyo A1c measurementDiabetes: Hemoglobin A1C [facility]burgS[facility]ath: 07-10-2023 End: 44-85-5583Cxhxufx encounter /16/2024 11:40 AM EDT [place] [phone] [place] [address] Department [place]rological [place] [address] [place] Ontiverostart: 06-13-2023 End: 10-52-3404Xhjfdskv Wvysrky5406/13/2023 10:45 AM EDT Clinical Support [facility] [address] [facility] 5th [place] [address] [facility] HospitalStart: 06-01-2023 End: 21-31-8862Kwkmiuefi to same day surgery stzbuv1906/01/2023 7:15 AM EST - 06/01/2023 12:55 PM EST Surgery [facility] [address] [place] [address] [place] [address] Department of [place]rological [place] [address] L4-5 and L5-S1 transforaminal lumbar interbody fusion with placement of interbody cage with decompression L3-4 posterior column osteotomy with L2-3 laminectomy and facetectomy and L2-S1 instrumented fusion using local bone autograft and BMP with pelvic fixation. [12399 (CPT )][facility] ORComment on above:L4-5 and L5-S1 transforaminal lumbar interbody fusion with placement of interbody cage with decompression L3-4 posterior column osteotomy with L2-3 laminectomy and facetectomy and L2-S1 instrumented fusion using local bone autograft and BMP with pelvic fixation. [42721 (CPT )]Start: 06-01-2023 End: 81-74-5346Vbeedptt post/posterolatrl/postinterbody lumbarFusion Spine Transforaminal Interbody Lumbar with Navigation Spinal stenosis of lumbar region with neurogenic claudication Sagittal plane imbalance Scoliosis of thoracolumbar region due to degenerative disease of spine in adult Lumbar foraminal stenosis Lumbar radiculopathy, acute Lumbar stenosis with neurogenic claudication 06/01/2023 7:15 AM ESTVirtual VIKASH Baker ORStart: 33-67-9291Odhubkfpcg hospital visit by /08/2024 5:45 AM EST Hospital Encounter [facility] [address] [place] [address] [place] [address] [address] Department of Neurological Surgery [place] [id number] [facility] [place] Start: 04-17-2023 End: 78-28-6152Dhvagpe encounter dxtrppaqc51/23/2024 9:00 AM EST Office Visit [facility] [address] [place] [address] Dino Villa MD [address] [place] [address] [facility] SpineStart: 04-12-2023 End: 64-55-8122PBNOTWZK POWERSHARE IMAGES TO EPICDOWNLOAD POWERSHARE IMAGES TO EPIC Imaging Routine Back pain, unspecified back location, unspecified back pain laterality, unspecified chronicity Expected: 04/12/2023, Expires: 04/12/2024THE FAX[facility] HOSPITALSocial MedianST. MARY[facility] Work Phone: Comment on above:Expected: 04/12/2023, Expires: 04/12/2024Start: 80-29-0912RvopvmtrlFirelands Regional Medical Center South Campustart: 01-17-2023 [facility] CenterStart: 52-54-1629IGSRO-19 Vaccine ( season)COVID-19 Vaccine ( season)[facility]Start: 11-24-2022 Influenza vaccinationInfluenza Vaccine (#1)[facility]Prom[facility] HospitalStart: 42-04-3527UAF High Risk: (Elderly (60+) or Population) (1 - Risk 60-74 years 1-dose series)RSV High Risk: (Elderly (60+) or Population) (1 - Risk 60-74 years 1-dose series)[facility]: 98-36-0771VDB patients and/or patients aged 60+ years (1 - 1-dose 60+ series)RSV patients and/or patients aged 60+ years (1 - 1-dose 60+ series) [facility]: 41-13-8764XSP vaccine (optional 60+ years)RSV vaccine (optional 60+ years)[facility]HealthStart: 34-60-8829EUFZS-19 Vaccine (2 - Bev risk series)COVID-19 Vaccine (2 - Bev risk series) [facility]: 18-85-4418Mrdweptg (RZV) Vaccine (1 of 2)Shingles (RZV) Vaccine (1 of 2)[facility]HealthStart: 89-50-1942Ufluci Vaccines (1 of 2)Zoster Vaccines (1 of 2)[facility]: 2007 Screening for malignant neoplasm of colonMetroHealthStart: 41-42-5696Angpw panel CholesterolMetroHealthStart: 26-70-7261YXrL/Tdap/Td Vaccines (1 - Tdap) DTaP/Tdap/Td Vaccines (1 - Tdap)[facility]: 87-36-7480Mftwoogzxmub vaccinationPneumococcal Vaccine (1 of 2 - PCV)[facility]: 32-99-6645Ydxjt screening for proteinDiabetes: Urine Protein ScreeningUnMorrow County Hospital: 10-59-3092Lwyise Vaccines (1 of 2)Zoster Vaccines (1 of 2)[facility]: 05-12-7926Aksftrimh C screeningMetroSelect Medical Specialty [facility]: 07-49-4386Jopytbw + diphtheria + acellular pertussis vaccine (product)Tdap BoosterMetroHealthart: 1977 HIV screeningHIV TestMetroSelect Medical Specialty Hospital - [place]: 63-52-9090Zashqnnh foot examination Diabetes: Foot ExamUnMorrow County Hospital: 63-54-8544Yowmeqej screeningDiabetes: Retinopathy ScreeningUnMorrow County Hospital: 79-97-7022Xyajktliwgwd Vaccine: Pediatrics (0 to 5 Years) and At-Risk Patients (6 to 64 Years) (1 - PCV)Pneumococcal Vaccine: Pediatrics (0 to 5 Years) and At- Risk Patients (6 to 64 Years) (1 - PCV)[facility]: 86-49-5443Zgvfvwtznfmr Vaccine: Pediatrics (0 to 5 Years) and At-Risk Patients (6 to 64 Years) (1 of 2 - PCV)Pneumococcal Vaccine: Pediatrics (0 to 5 Years) and At-Risk Patients (6 to 64 Years) (1 of 2 - PCV)[facility]: 11-66-3399NCC Vaccines (1 of 1 - Standard series)MMR Vaccines (1 of 1 - Standard series)[facility]: 53-80-4349XQS screeningHIV ScreeningUnMorrow County Hospital: 75-85-5838Plzho panelLipid PanelUnMorrow County Hospital: 20-07-1158Vsacqxyar for malignant neoplasm of colonMetroSelect Medical Specialty Hospital [facility] [place]: 24-83-4737Muqxx screening for proteinDiabetes: Urine Protein ScreeningUnMorrow County Hospital: 50-08-6640Jovkji Adult PhysicalYearly Adult PhysicalUnMercy Health Perrysburg HospitalArthdsis post/posterolatrl/postinterbody lumbarFusion Spine Transforaminal Interbody Lumbar with Navigation Spinal stenosis of lumbar region with neurogenic claudication Sagittal plane imbalance Scoliosis of thoracolumbar region due to degenerative disease of spine in adult Lumbar foraminal stenosis Lumbar radiculopathy, acute Lumbar stenosis with neurogenic claudication [facility] Work Phone: Comprehensive metabolic 2000 panel - Serum or Plasma [facility] End: 60-82-0884Dtykuiq [Mass/volume] in Serum or PlasmaTOHATCHI HEALTH [facility]ARE [facility] Service Area Work Phone: comment on above:Once (Lab) for 1 Occurrences starting 06/01/2023 until 06/01/2023s needed (Lab) until discontinued starting 06/01/2023 End: 36-16-8044Arnckbbfx spirometry InstructIncentive spirometry Instruct Respiratory Care Routine Once for 1 Occurrences starting 06/01/2023 until 06/01/2023[facility] Work Phone: Comment on above:Once for 1 Occurrences starting 06/01/2023 until 06/01/2023 End: 98-75-1650Qpjfyixxsaoqya monitoring - IOMInteroperative monitoring - IOM Neurology Routine Once for 1 Occurrences starting 06/01/2023 until 06/01/2023 [facility] Work Phone: Comment on above:Once for 1 Occurrences starting 06/01/2023 until 06/01/2023atient EducationZaky Non Diagnostic BlockNationwide Children'S Hospital Ctr Work Phone: Patient [facility] Work Phone: End: 67-89-7787Dzlhw oximetry, continuousPulse oximetry, continuous Respiratory Care Routine Continuous until discontinued starting 06/01/2023[facility] Work Phone: Comment on above:Continuous until discontinued starting 06/01/2023 End: 38-08-6659Krvev oximetry, continuousPulse oximetry, continuous Respiratory Care Routine Continuous until discontinued starting 06/02/2023[facility] Work Phone: Comment on above:Continuous until discontinued starting 06/02/2023 End: 08-63-2752Ppjws function 2000 panel - Serum or PlasmaRenal function panel Lab Routine Morning draw (Lab) for 1 Occurrences starting 06/07/2023 until 05/24[facility] Work Phone: Comment on above:Morning draw (Lab) for 1 Occurrences starting 06/07/2023 until 06/07/2023 End: 24-08-5167Rximrxoj Catheter RemovalUrethral Catheter Removal Procedures Routine Once for 1 Occurrences starting 06/02/2023 until 06/02/2023[facility] Work Phone: Comment on above:Once for 1 Occurrences starting 06/02/2023 until 06/02/2023 End: 40-14-7027I-ray scoliosis 2 View (NON EOS)[facility] Service Area Work Phone: comment on above:Once for 1 Occurrences starting 04/24/2023 until 04/24/2023 End: 96-01-8805Q-ray scoliosis 2 View (NON EOS)[facility] Service Area Work Phone: comlqcj on above:Once for 1 Occurrences starting 07/10/2023 until 07/10/2023 End: 49-32-7292Q-ray scoliosis 2 View (NON EOS)[facility] Service Area Work Phone: competp on above:Once for 1 Occurrences starting 08/14/2023 until 08/14/2023 End: 69-40-1547QC Skull to Coccyx 2 or 3 ViewsTOHATCHI HEALTH CARE CENTER Service Area Work Phone: comuytr on above:Once for 1 Occurrences starting 05/27/2024 until 05/27/2024[facility] Immunizations Immunization DateImmunizationNotesCare ZvaukgdtEssmeqmx56-74-5704mxxjpebvu, injectable,quadrivalent, preservative free, pediatricSif Lori Other [place] [employer] Other 116399-70-2871wsthgibdg virus vaccine, unspecified formulationAhu [address] [place], [place] 5504010-14-2015influenza virus vaccine, unspecified formulationMajor Stevens MD Work Phone: [facility]10-14-2015influenza, injectable,quadrivalent, preservative free, pediatricSherif Lori Other [facility] [employer] Other Payers DatePayer CategoryPayerPolicy [id number] Care (Private)[employer] .[id number] 25-03-1833Ugsq-[id number] Health Insurance1.2.840.370305.1.13.647.2.7.3.372162.81650-50-1624Isgoxwg 1.2.840.602526.1.13.56.2.7.3.488679.46123-63-2138Ysdtoqz0684189 2.840.1.945307.3.579.2.01847-38-3778Jznahes6486653 2.16.840.1.833048.3.579.2.52047-48-4563Qvdwmfi8876180 2.16.840.1.695219.3.579.2.24298-81-0661Oondeso4421850 2.16.840.1.953284.3.579.2.27396-72-5890Zatsnkm0249205 2.16.840.1.820260.3.579.2.26416-31-7927Lrgrgwm2297680 2.16.840.1.144050.3.579.2.93546-50-5316Hvtabgk98828431 2.16.840.1.888386.3.579.2.16686-35-7682Obcrxuc85271176 2.16.840.1.167135.3.579.2.84816-79-0862Sjecjvl18017070 2.16.840.1.423753.3.579.2.546369-05-9583Aapmfvh65788508 2.16.840.1.890831.3.579.2.066379-25-5416Eogdffp24658892 2.16.840.1.119291.3.579.2.778399-53-6386Myxawaz63381226 2..840.1.126300.3.579.2.610927-69-2923Racnvyn61203573 2.16.840.1.892948.3.579.2.814503-03-8522Gntinrk32315844 2..840.1.167463.3.579.2.616442-90-6432Wazcrcw19757982 2.16.840.1.640404.3.579.2.524873-38-4549Xvyinyt87767567 2.16.840.1.158474.3.579.2.115937-59-2537Txxsqqd31005016 2.16.840.1.500508.3.579.2.174628-97-7492Mpnoxkm21556202 2.16.840.1.305805.3.579.2.769120-85-4637Bmoamnj3551574 2.16.840.1.588595.3.579.2.883342-14-3015Zjdlebp3653759 2.16840.1.235163.3.579.2.430694-78-6813Hdkxgdo1739274 2.16840.1.666646.3.579.2.344252-52-2594Rcdtfuz9094671 2.16840.1.526763.3.579.2.534202-38-5281Brqfpyk5127993 2.0.1.102528.3.579.2.269000-40-2976Zytechb3505248 2.0.1.203445.3.579.2.493129-04-2370Ptecdop4521056 2.0.1.357090.3.579.2.487656-00-1237Fyvdiav8402995 2.0.1.654620.3.579.2.633256-49-3042Lghspxc2325850 2..1.367313.3.579.2.644847-88-6662Zcgkili1647839 2.0.1.064648.3.579.2.093585-59-1872Wffzsoo3188448 2.0.1.375793.3.579.2.566025-40-8023Exbyqba8894284 2.0.1.136519.3.579.2.887614-98-2058Swhhjsk37535046 2.840.1.137641.3.579.2.02253-15-4802Vsvqxyo68645826185-81-6540Egpnron13320031 Zkpepzr76120092 2.16840.1.776126.3.579.2.556Owwtbmq36241699 2..840.1.464380.3.579.2.817Inuhphi71738703 2..840.1.621598.3.579.2.531 [id number] 2.16.840.1.426536.3.579.2.531 Social History DateTypeDetailFacilityStart: 05-17-2023 End: 79-94-5861Kks Assigned At BirthUnMer[facility] HospitalStart: 01-16-5684Saq Assigned At BirthWhite HospitalTobacco smoking status NHISTobacco smoking consumption unknownMetroHealthStart: 00-20-8037Joz Assigned At BirthNot on fileMetroHealthStart: 04-14-2023 End: 83-21-5033Djhypyhj to SARS-CoV-2 (event)Not sureUnMorrow County Hospital: 03-07-2023 End: 08-38-8855Sfllbrw smoking status NHISNever smoked tobaccoUnMercy Health Perry[facility] HospitalSterath: 03-07-2023 End: 41-09-5893Vnulkrk use and exposureSmokeless tobacco non-userUnMercy Health [facility] Hospital Work Phone: Start: 05-17-2023 End: 01-18-0329Qiuzfpv intakeEx-drinker (finding)[facility] Work Phone: Start: 05-17-2023 End: 36-59-1325Llkmeqt of Social functionUnMercy Health Perrysburg HospitalHow often to you have a drink containing alcohol?NeverKettering Health MiamisburgSterath: 43-53-0188Fcl many standard drinks containing alcohol do you have on a typical day?Patient does not drinkUnMercy Health Perrysburg Hospital Work Phone: In the past 12 months, was there a time when you were not able to pay the mortgage or rent on time?[facility] Work Phone: are you now , , [...] money to buy more.Never trueNOMS Healthcare Start: [id number] Commentcaffeine: soda, chocolateNOMS HealthcareSexMale (finding)[facility] Medical Equipment Procedure CodeEquipment CodeEquipment Original TextEquipment IdentifierDates Modulus Tlif-A,[id number] 8 [id number]_hxjUkgwl: 13-95-2333Hpjbvow on above: Description: Per bill only jdr 06/03Moduls Tlif- [id number] 8 [id number]_epo Start: 25-06-9467Qypmqkx on above:Description: Per bill only jdr 06/03Infuse Bmp Small - [id number] - [id number]_khiNskej: 30-93-2033Rjlbk, Reline Lock, 5.5mm Open Tulip - [id number]_zmtOnyyp: 92-31-6326Kimkm, Reline-O, 7.5x50mm 2s Polyaxial - [id number]_dfmQufbq: 99-45-7228Cllmpb-O Conn, 5-6/5-6mm O-O Med - [id number]_vmgLdypv: 13-92-7742Ljmcs, Reline-O, 8.5x50mm 2s Polyaxial - [id number]_ttuStbql: 45-42-8347Jvnwh, Reline-O, 8.5x80mm 2s Poly Iliac - [id number]_kkuIhdwy: 90-07-9395Roulg, Reline-O, 6.5x45mm 2s Polyaxial - [id number]_bkuDrthf: 39-07-5191Lfdjb, Reline-O, 7.5x45mm 2s Polyaxial - [id number]_szvBnykl: 70-87-2603Mrvo Exp Ti Jaren 5.5mm 4+ [id number]_xgwVhyut: 98-96-185246om Offset [id number]_izzQplmi: 62-70-0285Bkjziha on above: Description: Per bill only jdr 06/03USE DIRECTED ONCE [id number]: 72-18-7664UYS DIRECTED ONCE [id number]: 98-90-2618Haezt Sugar Diagnostic stripStart: 01-13-2025 Goals DatePatient GoalDesired Activity/StatePersonal health goal Functional Status QckjEukoppkltmRlhaipXpylyfyi11-03-6974Jqaum score [AUDIT-C]0 07/09/2024 11:29 AM EDT [employer] Sat[employer] CompanyAhalogyNorthwest Medical CenterScmxqupwka60-12-0346Kgv often do you have a drink containing alcohol?Never 07/09/2024 11:29 AM EDT vidIQlyndhurstAhalogy [facility] CenterJoylcugvas97-99-9784Igbetzpbnb statusPatient does not drink 07/09/2024 11:29 AM EDT [employer], Sun[employer] Patient does not drinkNorthwest Medical CenterFxziongvav89-69-0530Zws often do you have 6 or more drinks on 1 occasion?Never 07/09/2024 11:29 AM EDT [employer] CompanyAhalogy [facility]CoinH[facility] Clinical Notes 12-26-2022 to 07-16-2024 Note Date & SwsiZiysLuhewmay89-33-9286 History of Present illness Narrative* Major Stevens MD - 07/16/2024 9:49 AM EDTAssociated Problem(s): Type 2 diabetes mellitus with hyperglycemia, without long-term current use of insulin ([facility]) Reports BS controlled and due for A1C. [...] home and monitor PRN. documented in this encounterNorthwest Medical CenterTugkukoptz91-18-2854 History of Present illness Narrative* Isha Valentino MD - 05/27/2024 11:00 AM EST I just had the pleasure of seeing Mr. Baer back in the Neurosurgery Spine Clinic at the [facility] [place]. He is a very pleasant 63 -year-old [...] the further treatment plan. Isha Valentino MD, [employer], FAANS Director - Minimally Invasive Spine Surgery [facility] Slack Cooper of Neurological Surgery [facility] [place], [place] ---Some of this note was completed using [employer] voice recognition technology and sometimes the software misinterprets words. This may include unintended errors with respect to translation of words, typographical errors or grammar errors which may not have been identified prior to finalization of the chart note. Please take this into account when reading this note--- documented in this [facility] Work Phone: 1(441) 151-254210-22-2024 History of Present illness Narrative* Major Stevens [...] hyperglycemia, without long-term current use of insulin ([facility]) Reports BS controlled and last A1C 6.3. Stick to ADA diet and limit carbs. Essential hypertension ([facility]) BP improved and monitor PRN. Annual physical exam - Primary Reviewed labs. Discussed proper diet and regular aerobic exercise. Need aerobic exercise 5-6 days aweek for 30 minutes at a time. Smaller portions and limit total calories. Colonoscopy every 10 years. Tetanus every 10 years. Advised not to smoke. Discussed daily Aspirin therapy. documented in this encounterNorthwest Medical CenterXbhtkxvhvp12-27-9201 History of Present illness Narrative* Isha Valentino MD - 08/14/2023 2:40 PM EDT I just had the pleasure of seeing Mr. Baer back in the Neurosurgery Spine Clinic at the [facility] [place]. He is a very pleasant 63 -year-old [...] the further treatment plan. Isha Valentino MD, [employer], FAANS Director - Minimally Invasive Spine Surgery [facility] Slack Cooper of Neurological Surgery [facility] [employer] [facility] [place], [place] ---Some of this note was completed using [employer] voice recognition technology and sometimes the software misinterprets words. This may include unintended errors with respect to translation of words, typographical errors or grammar errors which may not have been identified prior to finalization of the chart note. Please take this into account when reading this note--- documented in this [facility] Work Phone: 1(502) 996-938703-13-2024 Hospital course Narrative* Renetta Knox, SUPERVISOR BLOOD DONOR RECRUITERS-WELDER SETTER RESISTANCE MACHINE - 06/06/2023 4:56 PM EDT Discharge Diagnosis [...] Follow-Up Future Appointments Date Time Provider Department [place] 06/13/2023 10:45 AM NEUROSURGERY [facility] NURSE [id number] Academic 07/10/2023 11:40 AM Isha Valentino MD [id number] [facility] Renetta Knox, SUPERVISOR BLOOD DONOR RECRUITERS-WELDER SETTER RESISTANCE MACHINE documented in this [facility] Work Phone: 1(197) 301-468003-13-2024 History of Present illness Narrative* Itzel Chavez, [...] (none) End of Session Communication: Bedside nurse, Extract Operator, Physician Assessment Comment: 63 yo male with [...] steps (consecutively) with 1 rail and min ALLERGIST/MD, 1 step at a time) Outcome Measures: [facility] Basic Mobility Turning from your back [...] MD - 06/06/2023 2:16 AM EDT Melvin aBer is a 63 y.o. male on day [...] mod -intensity by pt/ot referral sent to [facility] which is the F[facility] of [...] hand placement Stairs Stairs: No Outcome Measures: [facility] Basic Mobility Turning from your back [...] snf choices medically ready 2-days Status-Inpatient Payer- [facility] Potential Barriers: None ADOD: 06/07/2023 Patricio Salas RN TCC [phone] * Reji Bacon MD - 06/04/2023 5:22 [...] Shower/Tub: Tub/shower unit Prior Function: Level of [place]: Independent with ADLs and functional transfers, Independent with homemaking with ambulation ADL Assistance: Independent Homemaking Assistance: Independent Ambulatory Assistance: Independent Vocational: (works for [employer]) Leisure: enjoys going to Groupiterball games Hand Dominance: Right Prior Function Comments: [...] prior to surgery 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 Extremities: RUE RUE : (AROM WFL) and LUE LUE: (AROM WFL) Outcome Measures: [facility] Daily Activity Putting on and taking [...] Jacques OTR/L Inpatient Occupational Therapist Rehab Office: [phone] * Donato Currie MD - 06/03/2023 3:08 [...] Prior Function Per Pt/Caregiver Report Level of [place]: Independent with ADLs and functional transfers, Independent [...] verbal cues, Moderate tactile cues Outcome Measures: [facility] Basic Mobility Turning from your back [...] (OTR/L, OTD) Inpatient Occupational Therapist Rehab Office: [phone] * Destinee Pisano MD - 06/02/2023 9:48 AM EST Acute Pain Service Postop Pain HPI - Palliative: relieved with IV analgesics and regional local anesthetics Provocative: movement Quality: burning and aching Radiation: none Severity: 5/10 Timing: constant 24-HOUR OPIOID CONSUMPTION: 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 none Morena Curtis [facility] Please reach out via Secure Chat for questions documented in this [facility] Work Phone: 1([phone]) 544-199303-13-2024 Plan of care note* Care Plan - [...] barriers include getting rest premedicating for activities. [facility]03-13-2024 Miscellaneous Notes* Care Plan - Charla Pedro [...] (B) Operative Note Date: 06/01/2023 OR Location: [facility] OR Name: Melvin Baer, : 1960, Age: [...] Surgeons * Isha Valentino - Primary Resident/Fellow/Other Shotblast Operator: Surgeon(s) and Role: * Terrell Johnson MD [...] performed and the images transferred to the Keen IO system for use in intraoperative image-guided computer-assisted [...] caps and final tightened using the torque dedicated driver and counter-torque.A third supporting jaren was placed on the left side using a rags-zh-wovy connector between L2 and L3 level and [...] 8:39 AM EST Date: 06/01/2023 OR Location: [facility] [place] Name: Melvin Baer, : 1960, Age: [...] bone autograft and BMP with pelvic fixation. 65368 - MS ARTHRODESIS COMBINED TQ 1NTRSPC LUMBAR MS OSTEOTOMY SPINE PST/PSTLAT APPR 1 VRT SGM LMBR [68345] MS ARTHRODESIS PST/PSTLAT TQ 1NTRSPC EA ADDL NTRSPC [56327] MS STACK FACETECTOMY & FORAMOTOMY 1 VRT SGM LUMBAR [86917] MS POSTERIOR SEGMENTAL INSTRUMENTATION 3-6 VRT SEG [75392] MS PELVIC FIXATION OTHER THAN SACRUM [11119] MS ALLOGRAFT FOR SPINE SURGERY ONLY MORSELIZED [] MS AUTOGRAFT SPINE SURGERY LOCAL FROM SAME INCISION [] MS STEREOTACTIC COMPUTER ASSISTED PX SPINAL [76678] MS INSJ BIOMCHN DEV INTERVERTEBRAL DSC SPC W/ARTHRD [94047] MS ARTHRODESIS CMBN TQ 1NTRSPC EACH ADDITIONAL [02145] Surgeons * Isha Valentino - Primary Resident/Fellow/Other Shotblast Operator: Surgeon(s) and Role: * Terrell Johnson MD [...] 490 mL Specimen: No specimens collected Staff: Peeler Operator: Levi Gonzales RN; Kimberli Hastings RN [...] with scheduled follow up. documented in this [facility] Work Phone: 1(153) 825-952403-12-2024 Plan of care note* Care Plan - [...] address these barriers include use call light. [facility] Work Phone: 1([phone]) 185-422303-10-2024 Plan of care note* Care Plan - [...] medication is given according to the order. [facility] Work Phone: [phone] Note* Perioperative Nursing Note - Karen Shah RN - 06/01/2023 3:58 PM EST Agree with prior nurse assessment. Labs sent. [facility]03-08-2024 Note* Op Note - Isha Valentino MD - 06/01/2023 8:39 AM EST L4-5 and L5-S1 transforaminal lumbar interbody fusion with placement of interbody cage with decompression L3-4 posterior column osteotomy and L2-S1 instrumented fusion using local bone autograft and BMP with pelvic fixation. (B) Operative Note Date: 06/01/2023 OR Location: [facility] OR Name: Melvin Baer, : 1960, Age: [...] Surgeons * Isha Valentino - Primary Resident/Fellow/Other Shotblast Operator: Surgeon(s) and Role: * Terrell Johnson MD [...] performed and the images transferred to the Keen IO system for use in intraoperative image-guided computer-assisted [...] caps and final tightened using the torque dedicated driver and counter-torque.A third supporting jaren was placed on the left side using a iswn-if-wknf connector between L2 and L3 level and [...] marino portions of the procedure. Isha Valentino [facility] Work Phone: [phone] 276-870803-08-2024 Note* Brief Op Note - Terrell Johnson MD - 06/01/2023 8:39 AM EST Date: 06/01/2023 OR Location: [facility] OR Name: Melvin Baer, : 1960, Age: [...] bone autograft and BMP with pelvic fixation. 71978 - MS ARTHRODESIS COMBINED TQ 1NTRSPC LUMBAR MS OSTEOTOMY SPINE PST/PSTLAT APPR 1 VRT SGM LMBR [81454] MS ARTHRODESIS PST/PSTLAT TQ 1NTRSPC EA ADDL NTRSPC [75968] MS STACK FACETECTOMY & FORAMOTOMY 1 VRT SGM LUMBAR [62817] MS POSTERIOR SEGMENTAL INSTRUMENTATION 3-6 VRT SEG [66299] MS PELVIC FIXATION OTHER THAN SACRUM [89685] MS ALLOGRAFT FOR SPINE SURGERY ONLY MORSELIZED [] MS AUTOGRAFT SPINE SURGERY LOCAL FROM SAME INCISION [] MS STEREOTACTIC COMPUTER ASSISTED PX SPINAL [95198] MS INSJ BIOMCHN DEV INTERVERTEBRAL DSC SPC W/ARTHRD [91322] MS ARTHRODESIS CMBN TQ 1NTRSPC EACH ADDITIONAL [25976] Surgeons * Isha Valentino - Primary Resident/Fellow/Other Shotblast Operator: Surgeon(s) and Role: * Terrell Johnson MD [...] 490 mL Specimen: No specimens collected Staff: Peeler Operator: Levi Gonzales RN; Kimberli Hastings RN Scrub Person: Lucian Castillo; Sam Khan Findings: excellent correction Complications: None; patient tolerated the procedure well. Disposition: PACU - hemodynamically stable. Condition: stable Specimens Collected: No specimens collected Attending Attestation: Isha Valentino [facility] Work Phone: [phone]) [phone] Consult note* Destinee Pisano MD - 06/01/2023 [...] pain disorder COVID-19 2020 recovererd Diabetes mellitus ([facility]) F/W PCP Hemoglobin A1c 8.0% or greater 03/08/2023 Last A1c=8.2, jardiance was added. Hypertension F/W PCP, not taking any medications Low back pain August 2018 Lumbar spondylosis Peripheral neuropathy bilateral feet R>L PONV (postoperative nausea and vomiting) Spinal stenosis scheduled for surgery with Dr. Valentino on 06/01/2023 Type 2 diabetes mellitus ([facility]) September 2008 Vision loss wears glasses Past [...] per primary [place] [phone] ph [phone] Associated attestation - Amada Palomino MD - 06/01/2023 10:58 AM EST I personally saw the patient, discussed risks and benefits, answered all questions, reviewed the chart and agree with the resident's plan. [facility] Work Phone: [phone]) 873-973803-08-2024 Consult note* Destinee Pisano MD - 06/01/2023 [...] pain disorder COVID-19 2020 recovererd Diabetes mellitus ([facility]) F/W PCP Hemoglobin A1c 8.0% or greater 03/08/2023 Last A1c=8.2, jardiance was added. Hypertension F/W PCP, not taking any medications Low back pain August 2018 Lumbar spondylosis Peripheral neuropathy bilateral feet R>L PONV (postoperative nausea and vomiting) Spinal stenosis scheduled for surgery with Dr. Valentino on 06/01/2023 Type 2 diabetes mellitus ([facility]) September 2008 Vision loss wears glasses Past [...] per [place] [phone] ph [phone] Associated attestation - Amada Palomino MD - 06/01/2023 10:58 AM EST I personally saw the patient, discussed risks and benefits, answered all questions, reviewed the chart and agree with the resident's plan. documented in this [facility] Work Phone: [phone] Hospital Note* Hospital Course - Renetta Knox [...] Home Care. Discharged with scheduled follow up. [facility] Work Phone: [phone] Attending History and physical note* Terrell Johnson [...] healing and intraoperative findings. Isha Valentino MD, [employer] Internet Technology Manager of Neurological Surgery [facility] Attending Surgeon Director - Minimally Invasive Spine Surgery [place], [place] Source Note - Lama Ewelina MD [...] pain disorder COVID-19 2020 recovererd Diabetes mellitus ([facility]) F/W PCP Hemoglobin A1c 8.0% or greater 03/08/2023 Last A1c=8.2, jardiance was added. Hypertension F/W PCP, not taking any medications Low back pain August 2018 Lumbar spondylosis Peripheral neuropathy bilateral feet R>L PONV (postoperative nausea and vomiting) Spinal stenosis scheduled for surgery with Dr. Valentino on 06/01/2023 Type 2 diabetes mellitus ([facility]) September 2008 Vision loss wears glasses Past [...] Case seen and discussed with Dr. Alvarado. [facility] Work Phone: [phone] History and physical note* Terrell Johnson MD [...] healing and intraoperative findings. Isha Valentino MD, [employer] Internet Technology Manager of Neurological Surgery [facility] Attending Surgeon Director - Minimally Invasive Spine Surgery [place], [place] Source Note - Lama Ewelina MD [...] Valentino on 06/01/2023 Type 2 diabetes mellitus ([facility]) September 2008 Vision loss wears glasses Past [...] discussed with Dr. Alvarado. documented in this [facility] Work Phone: [phone] 135-711601-03-2024 Evaluation note* Encounter Date Diagnosis Assessment Notes [...] MRI of the lumbar spine from 12/15/2022 jjss-sq-becc with patient and and which shows worsening [...] Mar,Levoscoliosis of lumbar spine (ICD-10 - M41.86) [place] [employer] Other 11-27-2023 Evaluation note* Encounter Date [...] - G89.29) Continue with current treatment plan [facility] [employer] Other [id number] [facility]-2023 Evaluation note* Encounter Date Diagnosis Assessment [...] (ICD-10 - G89.29) Follow up after procedure. [employer] Other Evaluation noteNo InformationNort [employer] Other Evaluation noteNo assessment information available [facility] Work Phone: Evaluation note* Diagnosis Back pain, unspecified back location, unspecified back pain laterality, unspecified chronicity- Primary [facility] Diagnosis Spinal stenosis of lumbar region with neurogenic claudication documented in this encounter [facility] Work Phone: Evaluation note* Diagnosis Spinal stenosis [...] with neurogenic claudication documented in this encounter [facility] Work Phone: Evaluation note* Diagnosis Lumbar radiculopathy, [...] Constipation due to pain medication Psoriatic arthritis ([facility]) Psoriatic arthropathy Spinal stenosis of lumbar region with neurogenic claudication Sagittal plane imbalance Other curvatures of spine associated with other conditions Scoliosis of thoracolumbar region due to degenerative disease of spine in adult Lumbar foraminal stenosis Lumbar radiculopathy, acute Lumbar stenosis with neurogenic claudication documented in this encounter [facility] Work Phone: [phone] note* Diagnosis Status post spinal surgery Other postprocedural status documented in this encounter [facility] Work Phone: [phone] note* Diagnosis Postoperative follow-up- Primary Follow-up examination, following unspecified surgery documented in this encounter [facility] Work Phone: [phone] note* Diagnosis S/P lumbar spinal fusion Arthrodesis status Scoliosis of thoracolumbar region due to degenerative disease of spine in adult documented in this encounter [facility] Work Phone: [phone] note* Diagnosis Type 2 diabetes mellitus with [...] Unspecified essential hypertension documented [facility] encounter [facility] Healthcare[facility]* Diagnosis S/P spinal surgery- Primary Other postprocedural status documented in this encounter [facility] Work Phone: Evaluation note* Diagnosis S/P lumbar spinal fusion Arthrodesis status Scoliosis of thoracolumbar region due to degenerative disease of spine in adult documented in this encounter [facility] Work Phone: Evaluation note* Diagnosis Type 2 [...] Date Annual physical exam acuteOctober 2024 9:26am [facility] Work Phone: History general Narrative - Reported* Type Description Date Medical History DM Medical HistoryarthritisSurgical Historyarthroscopic right knee [id number] HistoryProcedure:eye exam;Disease:Diabetes mellitus, type 2 without comp.2013 Surgical HistorycolonoscopySurgical HistoryProcedure:Arthroscopy knee;Disease: 2004Surgical HistoryProcedure:Meds;Disease:Psoriatic ArthitisSurgical History Procedure:removed;Disease:Groin cystSurgical HistoryColonoscopy, Internal Hemorrhiods- Dr. Solorio10/02/2014Hospitalization Historysee above [employer] Other Reason for referral (narrative)* Reason *Waiting for appt Please refer to Dr Dumont for surgical evaluation Diagnosis 1 Lumbar radiculopathy (M54.16) Referral Organization [facility] Referring Provider First Name Abel Referring Provider Last Name Lori Referring Provider Specialty Pain Medici ne Referred Organization [facility] Ne urosurgery Referred Provider David Dumont Referred Address [address],[place] [address] ,[place], [place],[address] Referred Provider Specialty Neurological Surgery Referral Priority Routine General Notes Bk Hansen 02/19 01:27:01 PM > Received today, sent P2P [facility] [employer] Other Reason for referral (narrative)No reason for referral information availableFostoria City Hospital Work Phone: Reason for visit Narrativereferred by Dr. Sandoval surgical evaluation, lumbar radiculopathyNRome [facility] Hospital [employer] Other reason for visit Narrative* Imaging (Routine) - Pending ReviewSpecialtyDiagnoses / ProceduresReferred By ContactReferred To ContactRadiology Diagnoses S/P lumbar spinal fusion Scoliosis of thoracolumbar region due to degenerative disease of spine in adult Procedures XR full spine 2 view scoliosis X-ray scoliosis 2 View (NON EOS) [place] [address] [address] Department [place] [address] Phone: tel: fax: Referral IDStatusReasonStart DateExpiration DateVisits RequestedVisits [id number] Review Perform Procedure [facility] Work Phone: Summary Purpose Family History Relationship [...] Back Pain Chief Complaint M54.16 Back Pain [id number] Chief Complaint Admit Date Established Patient January 14, 2025 9 :26am Reason for Visit Admit Date Annual physical exam January 14, 2025 9:26am Reason for Referral SpecialtyDiagnoses / ProceduresReferred By ContactReferred To [facility] Diagnoses S/P lumbar spinal fusion Scoliosis of thoracolumbar region due to degenerative disease of spine in adult Procedures X-ray scoliosis 2 View (NON EOS) [place] [address] [address] [facility] Department [place] [address] Referral IDStatusReasonSterath DateExpiration DateVisits RequestedVisits [id number] Perform Procedure /[id number] / ProceduresReferred By ContactReferred To [facility] Diagnoses Status post spinal surgery Procedures X-ray scoliosis 2 View (NON EOS) [place] [address] Department [place] [address] Referral IDStatusReasonStart DateExpiration DateVisits RequestedVisits [id number] Perform Procedure /[id number] / ProceduresReferred By ContactReferred To [facility] Diagnoses Lumbar [place], [place] [address] [address] Department [place] [address] Referral IDStatusReasonStart DateExpiration DateVisits RequestedVisits [id number] Specialty Services Required /[id number] / ProceduresReferred By Contact Referred To Contact Diagnoses Surgery, elective Preop testing Preoperative general physical examination Procedures [place] 12 [place] [address] [address] Department of Anesthesiology/[place] [address] Referral IDStatusReasonStart DateExpiration DateVisits RequestedVisits [id number] / Procedures Referred By ContactReferred To ContactRadiology Diagnoses Spinal stenosis of lumbar region with neurogenic claudication Procedures X-ray scoliosis 2 View (NON EOS) [place] [address] [address] Department [place] [address] Referral IDStatusReasonSterath DateExpiration DateVisits RequestedVisits [id number] Perform Procedure /[id number] / ProceduresReferred By ContactReferred To ContactRadiology Diagnoses Back pain, unspecified back location, unspecified back pain laterality, unspecified chronicity Procedures DOWNLOAD POWERSHARE IMAGES TO Dino Syed MD [address] [place] [address] [facility] [address] [place] [address] Referral IDStatusCaylaCanyon DateExpiration DateVisits RequestedVisits [id number]/ Additional Source Comments (unrecognized sect ion and content) No Status Records FoundNo Status Records FoundNo Status Records FoundNo Status Records FoundNo Status Records FoundNo Status Records FoundNo Status Records FoundNo Status Records FoundNo Status Records Found INFORMATION SOURCE (unrecogn ized section and content) DATE CREATED AUTHOR 07/22/2022 [facility] DATE CREATED AUTHOR AUTHOR'S ORGANIZ ATION 02/19/2023 [facility] DATE CREATED AUTHOR AUTHOR'S ORGANIZ ATION 05/26/2023 [facility] DATE CREATED AUTHOR AUTHOR'S ORGANIZ ATION 06/12/2023 [facility] [place] DATE CREATED AUTHOR AUTHOR'S ORGANIZ ATION 12/04/2023 [facility] DATE CREATED AUTHOR AUTHOR'S ORGANIZ ATION 06/01/2024 [facility] DATE CREATED AUTHOR AUTHOR'S ORGANIZ ATION 07/17/2024 [facility] DATE CREATED AUTHOR AUTHOR'S ORGANIZ ATION 01/21/2025 [facility] REASON FOR VISIT (unrecogniz ed section and content) ReasonCommentsFollow-vf4bEakw PainFlare up in lower backReasonCommentsAnnual ExamStates he's here for an annual examEverything is going goodSpecialty Diagnoses / ProceduresReferred By ContactReferred To ContactRadiology Diagnoses S/P lumbar spinal fusion Scoliosis of thoracolumbar region due to degenerative disease of spine in adult Procedures X-ray scoliosis 2 View (NON EOS) [place] [address] [address] Department [place] [address] Referral IDStatusReasonCanyon DateExpiration DateVisits RequestedVisits [id number] Perform Procedure [id number] / ProceduresReferred By ContactReferred To ContactRadiology Diagnoses Status post spinal surgery Procedures X-ray scoliosis 2 View (NON EOS) [place] [address] [address] Department of Neurological Surgery [place] [id number] Referral IDStatusReasonSterath DateExpiration DateVisits RequestedVisits [id number] Perform Procedure [id number] / ProceduresReferred By ContactReferred To Contact Diagnoses [...] BMP [place]. [place] [address] [address] Department of Neurological [place] [address] [facility] [place] [address] [place] [address] Referral IDStatusReB[facility] DateExpiration DateVisits RequestedVisits [id number] / ProceduresReferred By ContactReferred To Contact Diagnoses Surgery, elective Preop testing Preoperative general physical examination Procedures [place] 12 [place] [address] [address] Department of Anesthesiology/[place] [address] Referral IDStatusReasonSterath DateExpiration DateVisits RequestedVisits [id number]/[id number] / Procedures Referred By ContactReferred To ContactRadiology Diagnoses Spinal stenosis of lumbar region with neurogenic claudication Procedures X-ray scoliosis 2 View (NON EOS) [place] [address] [address] Department of Neurological Surgery [place] [id number] Referral IDStatusReasonStart DateExpiration DateVisits RequestedVisits [id number] Perform Procedure Neurosurgery office noteF/U AFTER CAUDAL [...] DateEnd Date Major Stevens MD [address] [place] [place] [address] PCP - [facility] Medicine05/17/23Team MemberRelationshipSpecialtyStart DateEnd Date Major Stevens MD [address] [place] [address] PCP - [facility] Medicine05/17/23Team MemberRelationshipSpecialtyStart DateEnd Date Major Stevens MD [address] [place] [address] [facility]05/17/23Team MemberRelationshipSpecialtyStart DateEnd Date Major Stevens MD [address] [place], [place] [address] PCP - GeneralFamily Medicine05/17/23Team MemberRelationshipSpecialtyStart DateEnd Date Major Stevens MD [address] [place], [place] [address] PCP - GeneralFamily Medicine05/17/23Team MemberRelationshipSpecialtyStart DateEnd Date Major Stevens MD [address] [place] [address] PCP - GeneralFamily Medicine04/16/23Team MemberRelationshipSpecialtyStart DateEnd Date Major Stevens MD [address] [place] [address] PCP - GeneralFamily Medicine04/16/23Team MemberRelationshipSpecialtyStart DateEnd Date Major Stevens MD [address] [place] [address] PCP - GeneralFamily Medicine04/16/23Team MemberRelationshipSpecialtyStart DateEnd Date Major Stevens MD [address] [place] [address] PCP - GeneralFamily Medicine04/16/23Team MemberRelationshipSpecialtyStart DateEnd Date Major Stevens MD [address] [place], [place] [address] PCP - GeneralFamily Medicine05/17/23Team MemberRelationshipSpecialtyStart DateEnd Date Major Stevens MD [address] [place] [address] PCP - [facility] Medicine05/17/23Team MemberRelationshipSpecialtyStart DateEnd Date Major Stevens MD [address] [place] [address] PCP - [facility]04/16/23Team MemberRelationshipSpecialtyStart DateEnd Date Major Stevens MD [address] [place] [address] PCP - [facility]04/16/23Team MemberRelationshipSpecialtyStart DateEnd Date Major Stevens MD [address] [place] [address] PCP - [facility]04/16/23Team MemberRelationshipSpecialtyStart DateEnd Date Major Stevens MD [address] [place] [address] PCP - [facility]04/16/23 Team Status: Active Member Role/Relationship Status Dates Major Stevesn MD Primary Care Provider Active Team Status: Inactive Member Role/Relationship Status Dates Major Stevens MD Primary Care Provider Active S tart: January 14, 2025 End: January 14, 2025[facility] DENNIS Stevensttending ProviderActiveStart: January 14, 2025 End: January 14, 2025Team MemberRelationshipSpecialtyStart DateEnd Date Major Stevens MD PCP - [facility] Medicine04/16/23 Scheduled Active and Recently Administ [...] Sun06/01/23 at 1931, Phase II/On Unit, [employer] Infusion and notify H.O. immediately ondansetron [...] unable to take orally. If inadequate response [id number] minutes, proceed to next-line agent for same [...] BE BASED ON THE PRIMARY CLINICAL RECORDS. [employer] provides no warranty or guarantee of the accuracy or completeness of information in this document.
[2025-03-04 08:00] VITALS: BP 155/91; PULSE 82; TEMP 36.2; O2SAT 96; BMI 29.8
[2025-03-04 09:52] VITALS: BP 119/74; PULSE 66; TEMP 36.4; O2SAT 97
[2025-03-04 10:07] VITALS: BP 161/81; PULSE 65; O2SAT 99
[2025-03-04 10:22] VITALS: BP 179/88; PULSE 59; O2SAT 99
== END 2025-03-04 10:22 | disposition home or self-care (01) ==
LOC: SURGOUT 07:49
PROVIDERS: PCP Family Medicine; Visit Provider Surgery
PROC: (CPT 812; principal; 2025-03-04 08:45)
DX: Z12.11 Encounter for screening for malignant neoplasm of colon (principal); Z80.0 Family history of malignant neoplasm of digestive organs; I10 Essential (primary) hypertension; E78.5 Hyperlipidemia, unspecified; E11.9 Type 2 diabetes mellitus without complications; L40.50 Arthropathic psoriasis, unspecified; Z79.84 Long term (current) use of oral hypoglycemic drugs; K21.9 Gastro-esophageal reflux disease without esophagitis
CPT/HCPCS: 45378; 36415; 82948; J2704